=== PATIENT | female | born 1960 | race Caucasian/White ===

== ENCOUNTER 2017-03-24 11:43 | Inpatient (IN) | payer OTHER ==
[~2017-03-24] VITALS: Ht 170.2 cm; Wt 109.0 kg
[~2017-03-24 11:43] MED LIST: DEXT40GE PO; ECRCR EXT; FLUC100T4 PO; FRS/40 PO; GLIM4TAB PO; LEVO-14 PO; MULT-506 PO; OXGN; OXYC-609 PO; SPIR25TA PO; ZOLP5TAB PO
--- NOTE | 2017-03-24 13:24 | EMERGENCY ROOM VISIT NOTE ---
History Report prepared by Jarrell: Arabella Stroud Under the Supervision of: Dr. Raúl Wolf M.D. First contact with patient: 12:19 Chief Complaint: RESPIRATORY PROBLEMS Stated Complaint: WATER RETENTION/WOUND Nursing Triage Summary: states she has been retaining fluid, ankles and feet swollen. Is being seen by Dr. Brown and wound center. states she has a staph infection on right lower leg History of Present Illness The patient is a 56 year old white female with a past medical history of COPD and diaphragm collapse who presents to the ED with a cc of constant worsening bilateral leg swelling beginning 2 days ago. The patient states that she follows with the wound clinic and has 2 wounds on the inside of her left leg that are holes and are draining fluid. She reports that she recently saw Dr. Brown and after doing a wound culture she notes that she has a staph infection in her right lower extremity. Pt notes that she is supposed to be taking Lasix but she stopped taking it 2 days ago as she was not draining fluid and thought that her body was rejecting it. Positive decreased appetite, bloating. Negative fever, chills, new cough. She states that she is on home 3L of oxygen and Bipap at night. Pt notes she is is on a 14 day course of Dalvance. She notes that she needs her Lerner catheter changed. Source of History: patient Onset: 2 days ago Position: leg (bilateral) Quality: other (swelling) Timing: constant, worsening Associated Symptoms: No fevers, No chills, No cough Note: Positive decreased appetite, bloating. Review of Systems See HPI for pertinent positives and negatives. A total of ten systems were reviewed and were otherwise negative. Past Medical & Surgical Medical Problems: (1) Acute respiratory failure (2) Femur fracture, left (3) Hyponatremia (4) Leukocytosis (5) MRSA (methicillin resistant Staphylococcus aureus) infection (6) Sacral decubitus ulcer, stage IV Family History No pertinent family history Social History Smoking Status: Current Every Day Smoker Drug Use: none Marital Status: single Occupation Status: disabled Current/Historical Medications Scheduled Eucerin (Hydrocerin), 1 APPLN EXT BID Fluconazole (Diflucan), 100 MG PO DAILY Furosemide (Lasix), 40 MG PO BID Glimepiride (Amaryl), 4 MG PO BID Home O2 Therapy (Oxygen), 3 LITERS NA CONTINOUS Spironolactone (Aldactone), 50 MG PO BID Zolpidem Tartrate (Ambien), 1 TAB PO HS Scheduled PRN Levocetirizine Dihydrochloride (Levocetirizine Dihydrochl), 0.5 MG PO DAILY PRN for Itching Oxycodone HCl (Oxycodone HCl), 10 MG PO Q8 PRN for Pain Allergies Coded Allergies: Vancomycin (Verified Allergy, Severe, ANAPHYLAXIS, 03/24/17) pt began shaking,face and neck bright red rash.o2 saturation dropping to 84% on 15lnrb Ampicillin (Verified Allergy, Mild, RASH, 03/24/17) Clindamycin (Verified Allergy, Mild, RASH, 03/24/17) Linezolid (Verified Allergy, Mild, RASH, 03/24/17) Penicillins (Verified Allergy, Mild, RASH, 03/24/17) Ciprofloxacin (Verified Adverse Reaction, Mild, MUSCLE ACHES, 03/24/17) muscle aches Methimazole (Verified Adverse Reaction, Mild, headache, 03/24/17) headache Nystatin (Verified Adverse Reaction, Mild, nausea, abd pain, kidney pain, 03/24/17) nausea, abd pain,kidney pain Physical Exam Vital Signs Date Time Temp Pulse Resp B/P (MAP) Pulse Ox O2 Delivery O2 Flow Rate FiO2 03/24/17 16:58 82 18 117/72 100 Nasal Cannula 3.0 03/24/17 12:15 83 03/24/17 12:11 94 Nasal Cannula 3.0 03/24/17 11:56 97 Nasal Cannula 3.0 03/24/17 11:45 36.6 82 20 112/66 92 Nasal Cannula 3.0 Physical Exam GENERAL: Awake, alert, well-appearing, NAD, on oxygen HENT: Normocephalic, atraumatic. EYES: Normal conjunctiva. Sclera non-icteric. NECK: Supple. No nuchal rigidity. FROM. RESPIRATORY: Distant lung sounds, bibasilar crackles. CARDIAC: RRR, no MRG ABDOMEN: Soft, NTND, BS+ MSK: No chest wall TTP, no LE edema NEURO: GCS 15, CN 2-12 intact, moves all 4s on command SKIN: Multiple ulcerations. Stage III sacral decubitus ulceration, mildly foul swelling, no purulent drainage. Has a stage II ulcer to the left heel and RLE with good granulation tissue. Some left inner thigh maceration of the skin. Medical Decision & Procedures ER Provider Diagnostic Interpretation: X-ray: Per my interpretation, radiologist review. CHEST ONE VIEW PORTABLE FINDINGS: The heart remains mildly enlarged. Mild diffuse interstitial thickening. This is slightly improved. No pleural effusions. No pneumothorax. No new focal lung consolidations. IMPRESSION: 1. Stable mild enlargement of the cardiac silhouette. 2. Mild diffuse interstitial thickening which has improved. This could represent mild congestive change. Electronically signed by: Fahad Davis M.D. 03/24/2017 2:22 PM Dictated Date/Time: 03/24/2017 2:21 PM Laboratory Results 03/24/17 15:40 Red Blood Count 3.79, Mean Corpuscular Volume 86.5, Mean Corpuscular Hemoglobin 27.7, Mean Corpuscular Hemoglobin Concent 32.0, Mean Platelet Volume 10.2, Neutrophils (%) (Auto) 82.5, Lymphocytes (%) (Auto) 11.6, Monocytes (%) (Auto) 4.2, Eosinophils (%) (Auto) 1.2, Basophils (%) (Auto) 0.2, Neutrophils # (Auto) 9.52, Lymphocytes # (Auto) 1.34, Monocytes # (Auto) 0.48, Eosinophils # (Auto) 0.14, Basophils # (Auto) 0.02 03/24/17 15:40 Test 03/24/17 14:10 03/24/17 15:35 03/24/17 15:40 03/24/17 16:32 Urine Color YELLOW Urine Appearance CLOUDY (CLEAR) Urine pH 5.0 (4.5-7.5) Urine Specific [place] 1.015 (1.000-1.030) Urine Protein NEG (NEG) Urine Glucose (UA) 1+ (NEG) Urine Ketones NEG (NEG) Urine Occult Blood 1+ (NEG) Urine Nitrite NEG (NEG) Urine Bilirubin NEG (NEG) Urine Urobilinogen NEG (NEG) Urine Leukocyte Esterase MODERATE (NEG) Urine WBC (Auto) 1-5 /hpf (0-5) Urine RBC (Auto) 0-4 /hpf (0-4) Urine Hyaline Casts (Auto) 0 /lpf (0-5) Urine Epithelial Cells (Auto) >30 /lpf (0-5) Urine Bacteria (Auto) 1+ (NEG) Urine Renal Epithelial Cells /lpf (0-5) Urine Pathogenic Casts /lpf (0) Venous Blood pH 7.21 (7.36-7.41) Venous Blood Partial Pressure CO2 57 mmHg (38.0-50.0) Venous Blood Partial Pressure O2 24 mmHg Venous Blood HCO3 22 mmol/L Venous Blood Oxygen Saturation < 60.0 % Venous Blood Base Excess -6.0 mEq/L White Blood Count 11.53 K/uL (4.8-10.8) Red Blood Count 3.79 M/uL (4.2-5.4) Hemoglobin 10.5 g/dL (12.0-16.0) Hematocrit 32.8 % (37-47) Mean Corpuscular Volume 86.5 fL (80-100) Mean Corpuscular Hemoglobin 27.7 pg (25-34) Mean Corpuscular Hemoglobin Concent 32.0 g/dl (32-36) Platelet Count 253 K/uL (130-400) Mean Platelet Volume 10.2 fL (7.4-10.4) Neutrophils (%) (Auto) 82.5 % Lymphocytes (%) (Auto) 11.6 % Monocytes (%) (Auto) 4.2 % Eosinophils (%) (Auto) 1.2 % Basophils (%) (Auto) 0.2 % Neutrophils # (Auto) 9.52 K/uL (1.4-6.5) Lymphocytes # (Auto) 1.34 K/uL (1.2-3.4) Monocytes # (Auto) 0.48 K/uL (0.11-0.59) Eosinophils # (Auto) 0.14 K/uL (0-0.5) Basophils # (Auto) 0.02 K/uL (0-0.2) RDW Standard Deviation 47.1 fL (36.4-46.3) RDW Coefficient of Variation 14.8 % (11.5-14.5) Immature Granulocyte % (Auto) 0.3 % Immature Granulocyte # (Auto) 0.03 K/uL (0.00-0.02) Erythrocyte Sedimentation Rate 65 mm/hr (0-21) Prothrombin Time 11.2 SECONDS (9.0-12.0) Prothromb Time International Ratio 1.0 (0.9-1.1) Activated Partial Thromboplast Time 29.8 SECONDS (21.0-31.0) Partial Thromboplastin Ratio 1.1 Anion Gap 8.0 mmol/L (3-11) Estimated GFR () 35.3 Estimated GFR (Non- 30.5 BUN/Creatinine Ratio 37.7 (10-20) Calcium Level 9.2 mg/dl (8.5-10.1) Total Bilirubin 0.2 mg/dl (0.2-1) Direct Bilirubin 0.1 mg/dl (0-0.2) Aspartate Amino Transf (AST/SGOT) 9 U/L (15-37) Alanine Aminotransferase (ALT/SGPT) 17 U/L (12-78) Alkaline Phosphatase 87 U/L (45-117) Troponin I 0.023 ng/ml (0-0.045) C-Reactive Protein 6.08 mg/dl (0-0.29) Pro-B-Type Natriuretic Peptide 9183 pg/ml (0-900) Total Protein 6.8 gm/dl (6.4-8.2) Albumin 3.0 gm/dl (3.4-5.0) Bedside Lactic Acid Venous 0.38 mmol/L (0.90-1.70) Laboratory results reviewed by me Medications Administered Medications (Trade) Dose Ordered Sig/Bruno Route Start Time Stop Time Status Last Admin Dose Admin Ceftriaxone Sodium (Rocephin Inj) 1 gm NOW STAT IV 03/24/17 15:11 03/24/17 15:13 DC 03/24/17 15:48 1 GM Furosemide (Lasix Inj) 40 mg NOW STAT IV 03/24/17 16:40 03/24/17 16:41 DC 03/24/17 16:55 40 MG ECG Indication: other (swelling) Rate (beats per minute): 77 Rhythm: sinus rhythm Findings: 1st degree AV block, T-wave inversion (V2), other (QRS and QTC intervals) Comparison ECG Date: 14-SEP-2015 Change: no significant change ED Course 1219: The patient was evaluated in room C3. A complete history and physical exam was performed. 1452: I reevaluated and updated the patient. 1646: Discussed the patient's case with Dr. Aj of [facility]. 1753: Discussed the patient's case with Dr. Gonzalez of [facility]. The patient will be evaluated for further treatment and disposition. 180: Upon reexamination, the patient was doing well. I discussed the test results and treatment plan with the patient. The patient will be evaluated for further management. Medical Decision Differential diagnosis includes CHF, kidney dysfunction, liver dysfunction, cellulitis, chronic lymphedema. The patient is a 56 year old white female with a past medical history of COPD and diaphragm collapse who presents to the ED with a cc of constant worsening bilateral leg swelling beginning 2 days ago. Patient noted to have normal white count mild elevated inflammatory markers. UA was questioned more for infection given the chronic indwelling Lerner she was treated with Rocephin. Patient was given 1 dose of Lasix after her BNP showed to be greater than 9000. Patient does have mild ELIZABETH with a creatinine of 1.8 from 1.2. I spoke with the hospitalist service who agreed the patient would benefit for further medical management and admission. Most Recent Progress note from Dr. Rothman on 03/13/17: At this time the the right lower extremity and heel did require debridement. With the patient's permission and after the application of topical Xylocaine 4% this site was debridement with a #5 curette . Central slough was removed. Bleeding did occur was controlled with direct pressure. This site as well as the left heel will be managed with Aquacel Ag and gauze change daily. Sacral ulcer will be managed with a wound VAC Suzy in the base black foam 125 mm of negative pressure wound VAC change Saturday. Patient will be reevaluated in 2 weeks. This represented a non-excisional debridement of less than 20 cm. Medication Reconcilliation Current Medication List: was personally reviewed by nj Blood Pressure Screening Patient's blood pressure: Normal blood pressure Blood pressure disposition: Did not require urgent referral Consults Time Called: 1440 Consulting Physician: Dr. Jean Marie Cuello [facility] Returned Call: 1447 Discussed the patient's case with Dr. Aj of [facility]. Additional Consults: Time Called: 1750 Consulted Physician: Dr. Lisa Cuello [facility] Returned Call: 1758 Additional Comments: Discussed the patient's case with Dr. Gonzalez of [facility]. The patient will be evaluated for further treatment and disposition. Impression Primary Impression: ELIZABETH (acute kidney injury) Additional Impressions: CHF (congestive heart failure) Sacral decubitus ulcer, stage III Scribe Attestation The scribe's documentation has been prepared under my direction and personally reviewed by me in its entirety. I confirm that the note above accurately reflects all work, treatment, procedures, and medical decision making performed by me. Departure Information Dispostion Being Evaluated By Hospitalist Referrals Parminder Rothman DO (PCP) Patient Instructions My [facility] Problem Qualifiers
--- NOTE | 2017-03-24 14:23 | DIAGNOSTIC IMAGING REPORT ---
CHEST ONE VIEW PORTABLE HISTORY: Lower extremity swelling. COMPARISON: Chest 10/03/2015. FINDINGS: The heart remains mildly enlarged. Mild diffuse interstitial thickening. This is slightly improved. No pleural effusions. No pneumothorax. No new focal lung consolidations. IMPRESSION: 1. Stable mild enlargement of the cardiac silhouette. 2. Mild diffuse interstitial thickening which has improved. This could represent mild congestive change. Electronically signed by: Fahad Davis M.D. 03/24/2017 2:22 PM Dictated Date/Time: 03/24/2017 2:21 PM
[2017-03-24 14:33] LABS: URINE APPEARANCE CLOUDY (CLEAR); URINE BILIRUBIN NEG (NEG); URINE COLOR YELLOW; URINE EPITHELIAL CELL AUTO >30 /lpf (0-5); URINE NITRITE NEG (NEG); URINE SPECIFIC GRAVITY 1.015 (1.000-1.030); UROBILINOGEN NEG (NEG); ZZUR CULT IF INDIC CLEAN CATCH YES
[2017-03-24 14:35] LABS: MANUAL MICROSCOPIC REQUIRED? NO; REVIEW REQ? YES
[2017-03-24] MEDS ORDERED: CEFTRIAXONE SOD INJ 1 GM ADDVIAL IV STA (15:11)
[2017-03-24 15:43] LABS: VENOUS BLOOD GAS PCO2 57 mmHg (38.0-50.0); VENOUS BLOOD GAS PO2 24 mmHg
[2017-03-24 15:45] LABS: VEN BLD GAS O2 SATURATION < 60.0 %
[2017-03-24 15:49] LABS: BASO % 0.2 %; BASO ABS # 0.02 K/uL (0-0.2); COMPLETE YES; EOS % 1.2 %; HEMATOCRIT 32.8 % (37-47); IG% 0.3 %; LYMPH % 11.6 %; LYMPH ABS # 1.34 K/uL (1.2-3.4); MEAN CELL VOLUME 86.5 fL (80-100); MEAN CORPUSCULAR HEMOGLOBIN 27.7 pg (25-34); MEAN PLATELET VOLUME 10.2 fL (7.4-10.4); MONO % 4.2 %; NEUT % 82.5 %; PLATELET COUNT 253 K/uL (130-400); RED BLOOD COUNT 3.79 M/uL (4.2-5.4); WHITE BLOOD COUNT 11.53 K/uL (4.8-10.8)
[2017-03-24 15:57] LABS: PARTIAL THROMBOPLASTIN RATIO 1.1; PROTHROMBIN TIME (PATIENT) 11.2 SECONDS (9.0-12.0)
[2017-03-24 16:08] LABS: ALT/SGPT 17 U/L (12-78); BLOOD UREA NITROGEN 68 mg/dl (7-18); BUN/CREATININE RATIO 37.7 (10-20); C-REACTIVE PROTEIN 6.08 mg/dl (0-0.29); CALCIUM 9.2 mg/dl (8.5-10.1); CARBON DIOXIDE 22 mmol/L (21-32); CHLORIDE 106 mmol/L (98-107); GLUCOSE 170 mg/dl (70-99); SODIUM 136 mmol/L (136-145)
[2017-03-24 16:13] LABS: ALKALINE PHOSPHATASE 87 U/L (45-117); AST/SGOT 9 U/L (15-37)
[2017-03-24] MEDS ORDERED: FUROSEMIDE 40 MG/4 ML VIAL IV STA (16:40)
--- NOTE | 2017-03-24 18:09 | History and Physical ---
History & Physical Date & Time of Service: Mar 24, 2017 at 17:48 Chief Complaint: Water Retention/Wound Primary Care Physician: Parminder Rothman DO History of Present Illness Source: patient 56 year old female with COPD, CHF (right-sided), DM and chronic lower leg ulcers who presented to [facility] on 03/24/2016 with a complaint of leg swelling. She first noticed her ;legs becoming swollen 2 days ago. She also noticed her belly was becoming enlarged and that her urine output had decreased. On she took a double dose of Lasix and didn't notice any difference and therefore decided lasix didn't work and stopped taking the medication. She has a known history of right sided heart failure with her last ECHO being in 2014 with an EF 55-60%, with right ventricular failure and right ventricular dilatation. She follows with Dr. Lata Sena in [place], [place]. Pt denies SOB, chest pain or palpitations. Past Medical/Surgical History Medical Problems: (1) Femur fracture, left Status: Chronic (2) Hyponatremia Status: Chronic (3) MRSA (methicillin resistant Staphylococcus aureus) infection Status: Chronic (4) Sacral decubitus ulcer, stage IV Status: Chronic Family History No pertinent family history Mom of [place] in 70's Dad had heart disease Brother and sister both have heart disease Social History Smoking Status: Current Every Day Smoker Alcohol Use: socially Drug Use: none Marital Status: single Housing status: lives alone Occupational Status: disabled Multi-Drug Resistant Organisms History of MDRO: Yes Type of MDRO: MRSA Allergies Coded Allergies: Vancomycin (Verified Allergy, Severe, ANAPHYLAXIS, 03/24/17) pt began shaking,face and neck bright red rash.o2 saturation dropping to 84% on 15lnrb Ampicillin (Verified Allergy, Mild, RASH, 03/24/17) Clindamycin (Verified Allergy, Mild, RASH, 03/24/17) Linezolid (Verified Allergy, Mild, RASH, 03/24/17) Penicillins (Verified Allergy, Mild, RASH, 03/24/17) Ciprofloxacin (Verified Adverse Reaction, Mild, MUSCLE ACHES, 03/24/17) muscle aches Methimazole (Verified Adverse Reaction, Mild, headache, 03/24/17) headache Nystatin (Verified Adverse Reaction, Mild, nausea, abd pain, kidney pain, 03/24/17) nausea, abd pain,kidney pain Home Medications Scheduled Eucerin (Hydrocerin), 1 APPLN EXT BID Fluconazole (Diflucan), 100 MG PO DAILY Furosemide (Lasix), 40 MG PO BID Glimepiride (Amaryl), 4 MG PO BID Home O2 Therapy (Oxygen), 3 LITERS NA CONTINOUS Spironolactone (Aldactone), 50 MG PO BID Zolpidem Tartrate (Ambien), 1 TAB PO HS Scheduled PRN Levocetirizine Dihydrochloride (Levocetirizine Dihydrochl), 0.5 MG PO DAILY PRN for Itching Oxycodone HCl (Oxycodone HCl), 10 MG PO Q8 PRN for Pain Review of Systems Constitutional: No fever, No chills, No sweats Respiratory: + cough, No shortness of breath Cardiovascular: + edema, No chest pain, No palpitations Abdomen: + problem reported (swellling), No pain, No nausea Genitourinary - Female: + urinary retention, No urinary frequency Physical Exam Vital Signs Date Time Temp Pulse Resp B/P (MAP) Pulse Ox O2 Delivery O2 Flow Rate FiO2 03/24/17 16:58 82 18 117/72 100 Nasal Cannula 3.0 03/24/17 12:15 83 03/24/17 12:11 94 Nasal Cannula 3.0 03/24/17 11:56 97 Nasal Cannula 3.0 03/24/17 11:45 36.6 82 20 112/66 92 Nasal Cannula 3.0 General Appearance: WD/WN, no apparent distress, + obese, + pertinent finding ( nasal cannula) ENT: hearing grossly normal, pharynx normal Neck: no JVD (difficult to assess), no carotid bruits, trachea midline, + pertinent finding Respiratory/Chest: no respiratory distress, no accessory muscle use, + crackles (crackles at left base), + wheezing (mild bilateral) Cardiovascular: regular rate, rhythm, + abnormal peripheral pulses (weak), + pertinent finding (heart sounds distant) Abdomen/GI: normal bowel sounds, non tender, soft, + distended Extremities/Musculoskelatal: no calf tenderness, normal capillary refill, non- tender, + pedal edema (+3 pitting edema to knee bilaterally), + pertinent finding (ulcers on left lateral aspect of lower leg with dressings over lesions. Chronic venous changes bilaterally with haemosiderin deposition) Neurologic/Psych: alert, normal mood/affect, oriented x 3 Diagnostics Laboratory Results Results Past 24 Hours Test 03/24/17 14:10 03/24/17 15:35 03/24/17 15:40 03/24/17 16:32 Range/Units Urine Color YELLOW Urine Appearance CLOUDY CLEAR Urine pH 5.0 4.5-7.5 Urine Specific [place] 1.015 1.000-1.030 Urine Protein NEG NEG Urine Glucose (UA) 1+ NEG Urine Ketones NEG NEG Urine Occult Blood 1+ NEG Urine Nitrite NEG NEG Urine Bilirubin NEG NEG Urine Urobilinogen NEG NEG Urine Leukocyte Esterase MODERATE NEG Urine WBC (Auto) 1-5 0-5 /hpf Urine RBC (Auto) 0-4 0-4 /hpf Urine Hyaline Casts (Auto) 0 0-5 /lpf Urine Epithelial Cells (Auto) >30 0-5 /lpf Urine Bacteria (Auto) 1+ NEG Urine Renal Epithelial Cells 0-5 /lpf Urine Pathogenic Casts 0 /lpf Venous Blood pH 7.21 7.36-7.41 Venous Blood Partial Pressure CO2 57 38.0-50.0 mmHg Venous Blood Partial Pressure O2 24 mmHg Venous Blood HCO3 22 mmol/L Venous Blood Oxygen Saturation < 60.0 % Venous Blood Base Excess -6.0 mEq/L White Blood Count 11.53 4.8-10.8 K/uL Red Blood Count 3.79 4.2-5.4 M/uL Hemoglobin 10.5 12.0-16.0 g/dL Hematocrit 32.8 37-47 % Mean Corpuscular Volume 86.5 80-100 fL Mean Corpuscular Hemoglobin 27.7 25-34 pg Mean Corpuscular Hemoglobin Concent 32.0 32-36 g/dl Platelet Count 253 130-400 K/uL Mean Platelet Volume 10.2 7.4-10.4 fL Neutrophils (%) (Auto) 82.5 % Lymphocytes (%) (Auto) 11.6 % Monocytes (%) (Auto) 4.2 % Eosinophils (%) (Auto) 1.2 % Basophils (%) (Auto) 0.2 % Neutrophils # (Auto) 9.52 1.4-6.5 K/uL Lymphocytes # (Auto) 1.34 1.2-3.4 K/uL Monocytes # (Auto) 0.48 0.11-0.59 K/uL Eosinophils # (Auto) 0.14 0-0.5 K/uL Basophils # (Auto) 0.02 0-0.2 K/uL RDW Standard Deviation 47.1 36.4-46.3 fL RDW Coefficient of Variation 14.8 11.5-14.5 % Immature Granulocyte % (Auto) 0.3 % Immature Granulocyte # (Auto) 0.03 0.00-0.02 K/uL Erythrocyte Sedimentation Rate 65 0-21 mm/hr Prothrombin Time 11.2 9.0-12.0 SECONDS Prothromb Time International Ratio 1.0 0.9-1.1 Activated Partial Thromboplast Time 29.8 21.0-31.0 SECONDS Partial Thromboplastin Ratio 1.1 Sodium Level 136 136-145 mmol/L Potassium Level 5.0 3.5-5.1 mmol/L Chloride Level 106 98-107 mmol/L Carbon Dioxide Level 22 21-32 mmol/L Anion Gap 8.0 3-11 mmol/L Blood Urea Nitrogen 68 7-18 mg/dl Creatinine 1.80 0.60-1.20 mg/dl Estimated GFR () 35.3 Estimated GFR (Non- 30.5 BUN/Creatinine Ratio 37.7 10-20 Random Glucose 170 70-99 mg/dl Calcium Level 9.2 8.5-10.1 mg/dl Total Bilirubin 0.2 0.2-1 mg/dl Direct Bilirubin 0.1 0-0.2 mg/dl Aspartate Amino Transf (AST/SGOT) 9 15-37 U/L Alanine Aminotransferase (ALT/SGPT) 17 12-78 U/L Alkaline Phosphatase 87 45-117 U/L Troponin I 0.023 0-0.045 ng/ml C-Reactive Protein 6.08 0-0.29 mg/dl Pro-B-Type Natriuretic Peptide 9183 0-900 pg/ml Total Protein 6.8 6.4-8.2 gm/dl Albumin 3.0 3.4-5.0 gm/dl Bedside Lactic Acid Venous 0.38 0.90-1.70 mmol/L Microbiology Results 03/24/17 Urine Culture, Received Pending Diagnostic Radiology 1. Stable mild enlargement of the cardiac silhouette. 2. Mild diffuse interstitial thickening which has improved. This could represent mild congestive change. Normal EKG Impression Assessment and Plan 56 year old female with PMH of Right sided CHF, COPD and chronic leg wounds presented with worsening lower extremity swelling and abdominal bloating. Likely to be worsening right sided heart failure. CHF (Right sided CHF) - last echo 2014 with EF 55-60%, RV dilatation and R ventricular failure, LV normal - takes home lasix 40mg bid, held - aldactone daily continue - start lasix IV 40mg once and reassess - monitor I/O's and daily weights - Order echo for the morning COPD - On 3L of oxygen at home - On BiPaP QHS - Ordered regular Duonebs DM - Glimepiride continue - Check HbA1c - monitor glucose MRSA leg ulcer - follows with Dr. Brown - gets Dalvance q2 weeks, next dose on Saturday as outpatient Sacral decubitus ulcer - Consult Wound Care CKD stage 3b - EGFR 30 - creatinine 1.8 - continue to monitor Yeast infection - diflucan Insomnia - zolpidem QHS DVT Prophlyaxis - Lovenox 30 daily due to decrease GFR Dispo - PT/OT consult - Lives alone Resident Physician Supervision Note: I interviewed and examined the patient. Discussed with Dr. Olmstead and agree with findings and plan as documented in the note. Any exceptions or clarifications are listed here: None Documented By: Santos Gonzalez swelling, abdominal bloating. legs hurt. taking lasix no response, quit lasix. vitals noted nad breathing unlabored no pallor or icterus, leg edema w ulcers but no surrounding erythema decompensation of right sided CHF -hopefully just poor absorption of diuretic due to gut edema, but concern would be overall worsening of R CHF / pulmonary HTN picture -start w trial of IV lasix - if improves situation and BP stable/Cr stable, then more likely just poor absorption and can likely treat w PO bumex; if doesn' t respond or if Cr rises a lot//BP drops- then will have to pursue R CHF more in depth telemetry at first given risks of deterioration of above Level of Care Telemetry VTE Prophylaxis VTE Risk Assessment Done? Y/N: Yes Given or contraindicated: Enoxaparin (Lovenox)SQ
[2017-03-24] MEDS ORDERED: ZOLPIDEM TARTRATE 5 MG TAB PO PRN (19:00)
[2017-03-24 19:54] VITALS: PULSE 88; O2SAT 96
[2017-03-24] MEDS: ALBUT/IPRATROP 3MG/0.5MG NEB 3 ML VIAL INH SCH (19:54)
[2017-03-24 20:00] VITALS: BP 136/68; PULSE 86; TEMP 36.8; O2SAT 96; BMI 37.6
[2017-03-24] MEDS ORDERED: PATIENT'S HEIGHT AND/OR WEIGHT NEEDED SCH (20:00)
[2017-03-24] MEDS ORDERED: FUROSEMIDE INJ 40 MG in SYRINGE 0 ML IV ONE (20:30)
[2017-03-24] MEDS: GLIMEPIRIDE 2 MG TAB PO SCH (21:00)
[2017-03-24] MEDS ORDERED: ZOLPIDEM TARTRATE 5 MG TAB PO SCH (21:00)
[2017-03-24] MEDS: EUCERIN CR 120 GM JAR EXT SCH (21:41)
[2017-03-24] MEDS: SPIRONOLACTONE 25 MG TAB PO SCH (21:50)
[2017-03-25] VITALS (9 sets, daily range): BP systolic 110–124; BP diastolic 58–67; PULSE 60–98; TEMP 36.6–36.8; O2SAT 93–98; Ht 170.2 cm; Wt 109.0 kg
[2017-03-25] MEDS: OXYCODONE HCL IR 5 MG TAB (IMMEDIATE RELEASE) PO PRN ×2 (01:41→22:31)
[2017-03-25 06:31] LABS: HEMATOCRIT 31.2 % (37-47); MEAN CELL VOLUME 86.7 fL (80-100); MEAN CORPUSCULAR HEMOGLOBIN 27.5 pg (25-34); MEAN CORPUSCULAR HGB CONC 31.7 g/dl (32-36); MEAN PLATELET VOLUME 10.1 fL (7.4-10.4); PLATELET COUNT 254 K/uL (130-400); WHITE BLOOD COUNT 10.38 K/uL (4.8-10.8)
[2017-03-25 07:04] LABS: BUN/CREATININE RATIO 36.9 (10-20); CALCIUM 8.4 mg/dl (8.5-10.1); CREATININE 1.9 mg/dl (0.60-1.20); POTASSIUM 5.6 mmol/L (3.5-5.1)
[2017-03-25 07:06] LABS: CHOLESTEROL/HDL RATIO 6.7
[2017-03-25] MEDS: ALBUT/IPRATROP 3MG/0.5MG NEB 3 ML VIAL INH SCH ×4 (07:13→20:20)
[2017-03-25 08:14] LABS: ESTIMATED AVERAGE GLUCOSE 203 mg/dl; HA1C FLAG Normal (Normal)
--- NOTE | 2017-03-25 08:36 | Clinical Documentation Query ---
CLINICAL DOCUMENTATION QUERY The medical record currently reflects this patient presenting with right sided CHF. By ICD 10 coding indexes this diagnosis codes to CHF unspecified. The medical record documentation is now expected to include definitive and explicit description of the patient's heart failure; vague terms such as "heart failure," ventricular dysfunction," and "CHF" may not fully capture the physician's intended level of severity. Query #1/2 In your clinical opinion is this patient being managed for: ( x ) Acute on chronic systolic right ventricular CHF ( ) Acute on chronic diastolic (Preserved EF) CHF ( ) Other explanation of clinical findings (Please Explain) ( ) Unable to determine (Please Define) ( ) Need to Discuss ( ) Not Agree The medical record reflects the following clinical findings, treatment, and risk factors. Clinical Indicators: Right heart failure per H&P. ProBNAP 9183. Echo from 05/21/15 showed severely dilated RV with a moderate to severly redued RV systolic function, LVEF of 55-60%, and RV pressure/volume overload. Treatment: telemetry, I/O's, daily weights, IV Lasix, Risk Factors: Age, CKD, COPD Query #2/2 In your clinical opinion is this patient being managed for: ( x ) CKD stage 3-4 evidenced by baseline creatinine of 1.80 an GFR of 30.5 monitored with ( ) Other explanation of clinical findings (Please Explain) ( ) Unable to determine (Please Define) ( ) Need to Discuss ( ) Not Agree The medical record reflects the following clinical findings, treatment, and risk factors. Clinical Indicators: BUN 68, Creatinine 1.80, GFR 30.5 Treatment: I/O's, daily weights, daily PRP's Risk Factors: Age, home diuretic therapy, Documenting the stage of CKD will improve data integrity and will help clarify vague terms such as "renal insufficiency" or "chronic renal failure." The stages of CKD according to the [employer] are as follows: Stage I: GFR >90 Stage II: GFR 60-89 Stage III: GFR 30-59 Stage IV: GFR 15-29 Stage V: GFR <15 Please clarify and document your clinical opinion in the progress notes and discharge summary. Terms such as "probable", "suspected", "likely", "questionable", "possible", or "still to be ruled out" are acceptable. IF IN AGREEMENT, YOU MUST DOCUMENT ABOVE DIAGNOSTIC STATEMENT IN DAILY PROGRESS NOTES AND DISCHARGE SUMMARY. This document is not part of the patient's record. Thank You, Joshua Rosales, RN [phone]
[2017-03-25] MEDS: ENOXAPARIN 30 MG/0.3 ML SYR SC SCH (09:47)
[2017-03-25] MEDS: FLUCONAZOLE 100 MG TAB PO SCH (09:51)
[2017-03-25] MEDS: SPIRONOLACTONE 25 MG TAB PO SCH ×2 (09:52→17:43)
[2017-03-25] MEDS: GLIMEPIRIDE 2 MG TAB PO SCH ×2 (09:53→20:27)
[2017-03-25] MEDS: EUCERIN CR 120 GM JAR EXT SCH ×2 (09:53→20:00)
[2017-03-25] MEDS ORDERED: NURSING VERBAL MED ORDER ONE ×3 (11:15→22:15)
[2017-03-25] MEDS ORDERED: IBUPROFEN 600 MG TAB PO PRN (11:30)
--- NOTE | 2017-03-25 11:46 | Family Medicine Progress Note ---
Progress Note Date of Service Mar 25, 2017. Subjective Pt evaluation today including: conversation w/ patient, physical exam, chart review, lab review The patient was seen and examined at bedside. According to nursing notes pt was screaming overnight. Pt refused numerous blood sugar checks. Pt reports that her lower extremity swelling has improved. Pt was approached regarding taking insulin in the hospital and she said she would defer to Dr. Gonzalez's recommendation when he rounds later in the day. Telemetry showed sinus rhythm in the 90s. Denies having any pain. Eating and urinating well. Plan of care was described to the patient and all questions were answered. Constitutional: No fever, No chills, No sweats, No weight loss ENT: No hearing loss Respiratory: No cough, No sputum, No wheezing, No shortness of breath Cardiovascular: No chest pain Abdomen: No pain, No nausea, No vomiting, No diarrhea Female : No dysuria Objective Physical Exam General Appearance: WD/WN, no apparent distress Neck: supple Respiratory/Chest: chest non-tender, no respiratory distress, no accessory muscle use, + pertinent finding (mild expiratory breath sounds) Cardiovascular: regular rate, rhythm, no edema, no gallop, no JVD, no murmur Abdomen: non tender, soft Extremities: non-tender, + pertinent finding (2+ pitting edema on the lower extremities bilaterally.) Neurologic/Psychiatric: alert, normal mood/affect, oriented x 3 Skin: + pertinent finding (wound dressing on the RLE, skin changes on bilateral legs consistent with venous status, slight weeping on unwrapped LLE, non tender calves.) Assessment and Plan 56F with PMH of Right sided CHF, COPD and chronic leg wounds presented with worsening lower extremity swelling and abdominal bloating. Likely to be worsening right sided heart failure. Pt was given 40mg of IV Lasix. Pt was doing well clinically with decreased swelling. Pt has diuresed 4L so far. Will transition to 1mg BID Bumex and will reassess tomorrow. Acute on Chronic Systolic Right CHF - last echo 2014 with EF 55-60%, RV dilatation and R ventricular failure, LV normal. - Hold home lasix 40mg PO BID. - Continue aldactone 50mg BID continue - start Bumex 1mg BID. - monitor I/O's and daily weights COPD - On 3L of oxygen at home. Mild Wheezing on exam. - On BiPaP QHS - Continue regular Duonebs QID DM2 - Sugars are high, HBA1C of 8.7, she does not want Metformin or insulin at present. - Pt will discuss insulin with Dr. Gonzalez, - Continue Glimepiride 4 MG PO BID at present. - Diabetic Diet. MRSA leg ulcer - follows with Dr. Brown - gets Dalvance q2 weeks, next dose on Saturday as outpatient - Wound care on board. Join Pain - continue home oxycodone regimen. - Tramadol 10mg TID for pain. (when pt doesn't want to take her oxy) - Stray away from NSAIDs due to renal function. Sacral decubitus ulcer - Consult Wound Care CKD stage 3 - EGFR 30 - creatinine 1.8-->1.9 - continue to monitor Yeast infection - Continue Diflucan 100mg daily. Insomnia - Continue Zolpidem QHS DVT Prophlyaxis - Lovenox 30 daily due to decrease GFR Dispo - PT/OT consult - Lives alone FULL CODE Resident Physician Supervision Note: I interviewed and examined the patient. Discussed with Dr. Mayes and agree with findings and plan as documented in the note. Any exceptions or clarifications are listed here: None Documented By: Santos Gonzalez feeling better legs less swollen belly less swollen feels better overall. notes sugars have been bad lately. after extensive discussion has been eating more bread/pasta/macaroni/etc vitals noted nad breathing unlabored leg swelling improved abd soft R sided CHF - improved w IV lasix, Cr rise only minimal - fortunately favoring gut edema precluding absorption of PO lasix. will change to PO bumex, f/u in AM. if ongoing improvement in swelling and stability in BP/Cr then home w close PCP f/u uncontrolled DM - relates previously good control. doesn't want more meds. notes diet has been differrent. willing to revert to prior diet. stable for med surg Resident Involvement: Resident Care Provided Care Provided: Adult [facility] Medicine
[2017-03-25] MEDS ORDERED: KETOROLAC TROMETHAMINE 10 MG TAB PO PRN (16:45)
[2017-03-25] MEDS: BUMETANIDE 1 MG TAB PO SCH (17:43)
[2017-03-25] MEDS ORDERED: TRAMADOL HCL 50 MG TAB PO PRN (18:15)
[2017-03-25] MEDS ORDERED: ZOLPIDEM TARTRATE 5 MG TAB PO SCH (23:00)
[2017-03-26] MEDS: ENOXAPARIN 30 MG/0.3 ML SYR SC SCH (07:01)
[2017-03-26 07:15] VITALS: PULSE 81; O2SAT 93
[2017-03-26] MEDS: ALBUT/IPRATROP 3MG/0.5MG NEB 3 ML VIAL INH SCH ×3 (07:15→15:24)
[2017-03-26 07:20] VITALS: BP 106/58; PULSE 86; TEMP 36.5; O2SAT 92
[2017-03-26 07:38] LABS: BASO % 0.2 %; BASO ABS # 0.02 K/uL (0-0.2); COMPLETE YES; EOS % 1.5 %; HEMATOCRIT 30.9 % (37-47); IG% 0.2 %; LYMPH % 14.2 %; LYMPH ABS # 1.29 K/uL (1.2-3.4); MEAN CORPUSCULAR HEMOGLOBIN 27.3 pg (25-34); MEAN CORPUSCULAR HGB CONC 31.4 g/dl (32-36); MEAN PLATELET VOLUME 10.3 fL (7.4-10.4); MONO % 7.9 %; PLATELET COUNT 244 K/uL (130-400); RED BLOOD COUNT 3.55 M/uL (4.2-5.4); WHITE BLOOD COUNT 9.08 K/uL (4.8-10.8)
[2017-03-26 08:08] LABS: BUN/CREATININE RATIO 34.4 (10-20); CALCIUM 8.9 mg/dl (8.5-10.1); POTASSIUM 5.4 mmol/L (3.5-5.1)
[2017-03-26] MEDS: GLIMEPIRIDE 2 MG TAB PO SCH ×2 (08:35→16:42)
[2017-03-26] MEDS: EUCERIN CR 120 GM JAR EXT SCH (08:35)
[2017-03-26] MEDS: BUMETANIDE 1 MG TAB PO SCH ×2 (08:36→16:43)
[2017-03-26] MEDS: SPIRONOLACTONE 25 MG TAB PO SCH ×2 (08:36→16:43)
[2017-03-26] MEDS: FLUCONAZOLE 100 MG TAB PO SCH (08:36)
--- NOTE | 2017-03-26 08:38 | Discharge Instructions ---
Discharge Instructions Date of Service Mar 26, 2017. Admission Reason for Admission: Leg Swelling Discharge Discharge Diagnosis / Problem: Acute on Chronic Systolic Right CHF Discharge Goals Goal(s): Decrease discomfort, Improve function, Increase independence, Improve nutritional status, Learn about illness Activity Recommendations Activity Limitations: per Instructions/Follow-up section . Instructions / Follow-Up Instructions / Follow-Up Please follow up with your Primary Care Provider at your next regularly scheduled appointment on April 02, 2017. We want you to do a blood test tomorrow on Monday March 27, 2017 and on Wednesday March 29, 2017. The results will be sent to Dr. Brown Verde. We are changing your diuretic from Lasix to Bumex 0.5mg daily. You do not need to take your Lasix if you are taking the Bumex. Please follow up with your primary care doctor in one week. Current Hospital Diet Patient's current hospital diet: Diabetes Type 2 Diet Discharge Diet Recommended Diet: Diabetes Type 2 Diet Pending Studies Studies pending at discharge: no Laboratory Results Hemoglobin A1c Test 03/25/17 06:13 Range/Units Estimated Average Glucose 203 mg/dl Hemoglobin A1c 8.7 H 4.5-5.6 % Lipid Panel Test 03/25/17 06:13 Range/Units Triglycerides Level 127 0-150 mg/dl Cholesterol Level 148 0-200 mg/dl HDL Cholesterol 22 mg/dl Cholesterol/HDL Ratio 6.7 LDL Cholesterol, Calculated 101 mg/dl Medical Emergencies . Who to Call and When: Medical Emergencies: If at any time you feel your situation is an emergency, please call 911 immediately. . Non-Emergent Contact Non-Emergency issues call your: Primary Care Provider . . "Provider Documentation" section prepared by Parminder Mayes. . VTE Core Measure Inpt VTE Proph given/why not?: Enoxaparin (Lovenox)SQ Resident Involvement: Resident Care Provided Care Provided: Adult Hospital Medicine
[2017-03-26 08:54] VITALS: BP 106/58; PULSE 86; TEMP 36.5; O2SAT 92
[2017-03-26] MEDS ORDERED: BMX1 PO (09:01)
--- NOTE | 2017-03-26 09:31 | Discharge Summary ---
Discharge Summary Date of Service Mar 26, 2017. (Parminder Mayes M.D.) Discharge Summary Admission Date: Mar 24, 2017 at 18:22 Discharge Disposition: Home Principal Diagnosis: Acute on Chronic Systolic Right CHF Procedures: CHEST ONE VIEW PORTABLE HISTORY: Lower extremity swelling. COMPARISON: Chest 10/03/2015. FINDINGS: The heart remains mildly enlarged. Mild diffuse interstitial thickening. This is slightly improved. No pleural effusions. No pneumothorax. No new focal lung consolidations. IMPRESSION: 1. Stable mild enlargement of the cardiac silhouette. 2. Mild diffuse interstitial thickening which has improved. This could represent mild congestive change. (Parminder Mayes M.D.) Discharge Exam Subjective The patient was seen and examined at bedside. Slept in the chair overnight. As a result she believes there was minimal improvement in her LE swelling. Pt denies having any pain. Eating and urinating well. Plan of care was described to the patient and all questions were answered. Constitutional: No fever, No chills, No sweats, No weight loss ENT: No hearing loss Respiratory: No cough, No sputum, No wheezing, No shortness of breath Cardiovascular: No chest pain Abdomen: No pain, No nausea, No vomiting, No diarrhea Female : No dysuria Physical Exam General Appearance: WD/WN, no apparent distress, +Obese. Neck: supple Respiratory/Chest: chest non-tender, no respiratory distress, no accessory muscle use, Lungs are Clear to Auscultation bilaterally. Cardiovascular: regular rate, rhythm, no edema, no gallop, no JVD, no murmur Abdomen: non tender, soft Extremities: non-tender, + pertinent finding (2+ pitting edema on the lower extremities bilaterally.) Neurologic/Psychiatric: alert, normal mood/affect, oriented x 3 Skin: + pertinent finding (wound dressing on the RLE, skin changes on bilateral legs consistent with venous status, slight weeping on unwrapped LLE, non tender calves.) (Parminder Mayes M.D.) Hospital Course 56F with PMH of Right sided CHF, COPD and chronic leg wounds presented with worsening lower extremity swelling and abdominal bloating. Likely to be worsening right sided heart failure. Pt was given 40mg of IV Lasix. Pt was doing well clinically with decreased swelling. Pt has diuresed -6.L during her hospital stay. On discharge pt was asked to hold her Lasix and was prescribed 0.5mg daily with Lasix. She has a wound care follow up on 03/27/17. She has an appointment with her Primary Care Doctor on SaturdayApril 02 in [place] - Dr. Brown Verde. An RX was given to do a BMP on SaturdayMarch 27 and SaturdayMarch 29 - this was one to track creatinine clearance and renal function. The results will be sent to Dr. Brown Verde in [place]. During the patient hospital course her blood sugars were found to be elevated. An HBA1C was 8.7. Pt refused Metformin and Insulin - she did however promise to improve her diet. She wants to defer further DM2 management to her PCP in [place]. Patient was discharged on good condition. Total Time Spent: Greater than 30 minutes This includes examination of the patient, discharge planning, medication reconciliation, and communication with other providers. (Parminder Mayes M.D.) Resident Physician Supervision Note: I interviewed and examined the patient. Discussed with Dr. Mayes and agree with findings and plan as documented in the note. Any exceptions or clarifications are listed here: None Documented By: Santos Gonzalez swelling down about the same. mostly complains about service, labs, CNAs etc. no new medical complaints. all other ROS otherwise negative except for as above ; asks for me to revisit and informs me that she thinks sugars are up due to nebs. tried to explain (again) that A1c is a 3 month avg and based on her A1c current sugars are not that unexpected. as yesterday - to revert to less starches/breads/etc vitals noted nad breathing unlabored leg swelling about the same as yesterday R sided CHF / edema - appearing to have responded well to bumex. home on 0.5mg daily - follow clinical status and BMP closely (BMP tomorrow and saturday, then as clinically warranted, PCP f/u later this week) CKD - ~stage 3b - baseline range. BMP closely follow due to changing diuretics hyperkalemia - mild. diuretic will likely reduce. BMP tomorrow as above venous stasis/edema/venous ulcers - sees wound clinic tomorrow stable for home >30mins Total Time Spent: Greater than 30 minutes (Santos Gonzalez D.O.) Discharge Instructions Please refer to the electronic Patient Visit Report (Discharge Instructions) for additional information. (Parminder Mayes M.D.) Follow-Up Follow up with Wound Care appointments. Follow up with PCP in one week. (Parminder Mayes M.D.) Additional Copies To Jake Brown MD; Parminder Rothman, DO Resident Involvement: Resident Care Provided Care Provided: [facility] Medicine (Parminder Mayes M.D.)
[2017-03-26 11:27] VITALS: PULSE 89; O2SAT 96
[2017-03-26 15:59] VITALS: BP 121/66; PULSE 89; TEMP 36.9; O2SAT 91
[2017-03-26] MEDS ORDERED: CEFUROXIME AXETIL 250 MG TAB PO SCH (20:00)
[2017-04-02] MEDS ORDERED: CBCI (09:47)
[2017-05-30] MEDS ORDERED: BUME1TAB PO (13:05)
[2017-05-30] MEDS ORDERED: SPIR25TA PO (13:05)
== END 2017-03-26 17:25 | disposition home health service (06) | DRG 291 ==
LOC: C.EDB 11:48 → C.2E 18:22 → ENRESERV 19:00 → C.4E 03-25 19:53
PROVIDERS: ADMIT Family Medicine; ATTEND Family Medicine
DX: I50.23 Acute on chronic systolic (congestive) heart failure (principal); L89.153 Pressure ulcer of sacral region, stage 3; J44.9 Chronic obstructive pulmonary disease, unspecified; L89.622 Pressure ulcer of left heel, stage 2; L89.892 Pressure ulcer of other site, stage 2; L08.89 Other specified local infections of the skin and subcutaneous tissue; B95.62 Methicillin resistant Staphylococcus aureus infection as the cause of diseases classified elsewhere; B37.9 Candidiasis, unspecified; I87.8 Other specified disorders of veins; E11.65 Type 2 diabetes mellitus with hyperglycemia; N18.3 Chronic kidney disease, stage 3 (moderate); E87.5 Hyperkalemia; I89.0 Lymphedema, not elsewhere classified; M25.50 Pain in unspecified joint; G47.00 Insomnia, unspecified; F17.200 Nicotine dependence, unspecified, uncomplicated; E66.9 Obesity, unspecified; Z68.37 Body mass index [BMI] 37.0-37.9, adult; Z91.14 Patient's other noncompliance with medication regimen; Z99.81 Dependence on supplemental oxygen; Z53.29 Procedure and treatment not carried out because of patient's decision for other reasons; Z96.0 Presence of urogenital implants; Z86.14 Personal history of Methicillin resistant Staphylococcus aureus infection; Z82.49 Family history of ischemic heart disease and other diseases of the circulatory system; Z79.891 Long term (current) use of opiate analgesic; Z79.899 Other long term (current) drug therapy

== ENCOUNTER 2017-04-26 12:04 | Inpatient (IN) | payer OTHER ==
[~2017-04-26] VITALS: Ht 167.6 cm; Wt 106.8 kg
[~2017-04-26 12:04] MED LIST changes: +BMX1 PO; +CBCI; -DEXT40GE PO; -FRS/40 PO; -MULT-506 PO
[2017-04-26] MEDS ORDERED: ACETAMINOPHEN 500 MG TAB PO STA (12:59)
[2017-04-26 13:29] LABS: BASO % 0.2 %; BASO ABS # 0.03 K/uL (0-0.2); COMPLETE YES; EOS % 0.9 %; HEMATOCRIT 28.3 % (37-47); IG% 0.6 %; LYMPH % 10.9 %; LYMPH ABS # 1.34 K/uL (1.2-3.4); MEAN CELL VOLUME 81.8 fL (80-100); MEAN CORPUSCULAR HEMOGLOBIN 26.6 pg (25-34); MEAN CORPUSCULAR HGB CONC 32.5 g/dl (32-36); MEAN PLATELET VOLUME 10.9 fL (7.4-10.4); MONO % 6.7 %; NEUT % 80.7 %; PLATELET COUNT 183 K/uL (130-400); RED BLOOD COUNT 3.46 M/uL (4.2-5.4); WHITE BLOOD COUNT 12.34 K/uL (4.8-10.8)
[2017-04-26] MEDS ORDERED: SODIUM CHLORIDE 0.9% 500ML 500 ML IV STA (13:43)
--- NOTE | 2017-04-26 13:46 | DIAGNOSTIC IMAGING REPORT ---
CHEST ONE VIEW PORTABLE CLINICAL HISTORY: Shortness of breath COMPARISON STUDY: 03/24/2017 FINDINGS: The heart remains enlarged. There is a right-sided catheter the tip of which projects over the superior vena cava. There is stable hilar prominence. There is persistent interstitial thickening. This may indicate mild pulmonary vascular congestion.[ IMPRESSION: Cardiomegaly and stable mild interstitial thickening/edema. No evidence of focal pulmonary consolidation. Electronically signed by: Tima Sorensen M.D. 04/26/2017 1:44 PM Dictated Date/Time: 04/26/2017 1:42 PM
[2017-04-26 13:47] LABS: ALT/SGPT 20 U/L (12-78); AST/SGOT 6 U/L (15-37); BLOOD UREA NITROGEN 79 mg/dl (7-18); BUN/CREATININE RATIO 37.8 (10-20); CALCIUM 8.6 mg/dl (8.5-10.1); CARBON DIOXIDE 21 mmol/L (21-32); CHLORIDE 107 mmol/L (98-107); GLUCOSE 292 mg/dl (70-99); POTASSIUM 5.7 mmol/L (3.5-5.1); SODIUM 135 mmol/L (136-145)
[2017-04-26 13:49] LABS: URINE APPEARANCE CLOUDY (CLEAR); URINE BILIRUBIN NEG (NEG); URINE COLOR YELLOW; URINE EPITHELIAL CELL AUTO >30 /lpf (0-5); URINE NITRITE POS (NEG); URINE SPECIFIC GRAVITY 1.012 (1.000-1.030); UROBILINOGEN NEG (NEG)
[2017-04-26 13:51] LABS: ISTAT CREATININE 2.1 mg/dl (0.6-1.3); ISTAT HEMOGLOBIN 9.5 g/dl (12.0-16.0); ISTAT IONIZED CALCIUM 1.22 mmol/l (1.12-1.32)
[2017-04-26 13:52] LABS: ALB/GLOB RATIO 0.7 (0.9-2); ALKALINE PHOSPHATASE 91 U/L (45-117); CKMB/CK RATIO 10.4 (0-3.0)
[2017-04-26 13:55] LABS: MANUAL MICROSCOPIC REQUIRED? NO; REVIEW REQ? YES
--- NOTE | 2017-04-26 14:07 | EMERGENCY ROOM VISIT NOTE ---
History Report prepared by Jarrell: Dolores Singh Under the Supervision of: Dr. Cl Zayas M.D. First contact with patient: 12:46 Chief Complaint: RESPIRATORY PROBLEMS Stated Complaint: LIVER FAILURE,SWELLING Nursing Triage Summary: Pt states that she was sent here by Dr. Bronw's office for an elevated BUN. Pt states "im a mess. My kidneys don't work and I can't breath. I have too much fluid on me." Pt states the she is more SOB than usual. Pt lives on 3lpm of oxygen at all times. Pt has a productive cough. Lungs are diminished with crackles in bases. Pt has a history of MRSA and is being treated at home via IV antibiotic for staff infections. Pt has a PICC in the upper right arm. Pt has bilateral lower extremity edema and multiple open wounds. Pt has an indwelling rodriguez. Pt states that she has pain all over at all times. History of Present Illness The patient is a 56 year old female who presents to the Emergency Room after being referred for an elevated BUN. The patient has been following with the wound center for wounds on her lower extremities. Two weeks ago she had a positive culture for a staph infection. She had a PICC line placed and was receiving IV antibiotics at home. She states that over the last couple of days about 45 minutes after the antibiotics she develops shaking. This has happened the last two days in a row. She called Dr. Brown's office, of infectious disease. They were concerned that the patient was dehydrated and she had an elevated BUN. She was told to come to the ED for further evaluation. The patient states that she feels dehydrated. Her muscles are achy all over. She rates her pain as a 6/10 in severity. She is on 3L of O2 at all times. Source of History: patient Onset: MOLD HOISTER Position: other (global) Symptom Intensity: 6/10 Quality: other (elevated BUN) Timing: constant Modifying Factors (Worsening): other (IV antibiotics) Note: Pt notes generalized body aches and shaking. Review of Systems See HPI for pertinent positives & negatives. A total of 10 systems reviewed and were otherwise negative. Past Medical & Surgical Medical Problems: (1) Acute respiratory failure (2) CHF (congestive heart failure) (3) Chills (4) Femur fracture, left (5) Hyponatremia (6) Leg swelling (7) Leg ulcer (8) Leukocytosis (9) MRSA (methicillin resistant Staphylococcus aureus) infection (10) Sacral decubitus ulcer, stage IV Family History No pertinent family history Social History Smoking Status: Current Every Day Smoker Drug Use: none Marital Status: single Occupation Status: disabled Current/Historical Medications Scheduled Bumetanide (Bumetanide), 0.5 MG PO DAILY Eucerin (Hydrocerin), 1 APPLN EXT BID Fluconazole (Diflucan), 100 MG PO DAILY Glimepiride (Amaryl), 4 MG PO BID Home O2 Therapy (Oxygen), 3 LITERS NA CONTINOUS Spironolactone (Aldactone), 50 MG PO BID Zolpidem Tartrate (Ambien), 1 TAB PO HS Scheduled PRN Levocetirizine Dihydrochloride (Levocetirizine Dihydrochl), 0.5 MG PO DAILY PRN for Itching Oxycodone HCl (Oxycodone HCl), 10 MG PO Q8 PRN for Pain Miscellaneous Medications Daptomycin (Cubicin) Allergies Coded Allergies: Vancomycin (Verified Allergy, Severe, ANAPHYLAXIS, 03/24/17) pt began shaking,face and neck bright red rash.o2 saturation dropping to 84% on 15lnrb Ampicillin (Verified Allergy, Mild, RASH, 03/24/17) Clindamycin (Verified Allergy, Mild, RASH, 03/24/17) Linezolid (Verified Allergy, Mild, RASH, 03/24/17) Penicillins (Verified Allergy, Mild, RASH, 03/24/17) Ciprofloxacin (Verified Adverse Reaction, Mild, MUSCLE ACHES, 03/24/17) muscle aches Methimazole (Verified Adverse Reaction, Mild, headache, 03/24/17) headache Nystatin (Verified Adverse Reaction, Mild, nausea, abd pain, kidney pain, 03/24/17) nausea, abd pain,kidney pain Physical Exam Vital Signs Date Time Temp Pulse Resp B/P (MAP) Pulse Ox O2 Delivery O2 Flow Rate FiO2 04/26/17 14:01 36.7 82 18 141/65 99 Nasal Cannula 3.0 04/26/17 13:29 93 Nasal Cannula 3.0 04/26/17 12:50 84 04/26/17 12:43 Nasal Cannula 3.0 04/26/17 12:36 93 Nasal Cannula 3.0 04/26/17 12:11 36.8 80 24 92 Nasal Cannula 3.0 Physical Exam GENERAL: Patient is a healthy-appearing well-nourished 56 year old female. HEAD: Normocephalic atraumatic EYES: Ocular movements intact pupils equal and react to light OROPHARYNX mucous membranes are moist no exudates present no erythema or edema present NECK: Supple no nuchal rigidity CHEST: Good equal expansion LUNGS: Clear and equal to auscultation CARDIAC: Normal S1 and S2, grade 2/6 systolic murmur. ABDOMEN: Soft nontender no guarding BACK: No CVA tenderness EXTREMITIES: No pain upon palpation normal muscle strength in all groups no clubbing cyanosis or edema. PICC line in place in the right upper extremity. Chronic venostases changes bilaterally to legs. Wounds in various stages of healing to the legs. NEURO: Patient is following commands and answering questions appropriately. Alert and oriented x3 Cranial Nerves 2-12 grossly intact Medical Decision & Procedures ER Provider Diagnostic Interpretation: Radiology results as stated below per my review and radiologist interpretation: CHEST ONE VIEW PORTABLE CLINICAL HISTORY: Shortness of breath COMPARISON STUDY: 03/24/2017 FINDINGS: The heart remains enlarged. There is a right-sided catheter the tip of which projects over the superior vena cava. There is stable hilar prominence. There is persistent interstitial thickening. This may indicate mild pulmonary vascular congestion.[ IMPRESSION: Cardiomegaly and stable mild interstitial thickening/edema. No evidence of focal pulmonary consolidation. Electronically signed by: Tima Sorensen M.D. 04/26/2017 1:44 PM Dictated Date/Time: 04/26/2017 1:42 PM Laboratory Results 04/26/17 13:25 Red Blood Count 3.46, Mean Corpuscular Volume 81.8, Mean Corpuscular Hemoglobin 26.6, Mean Corpuscular Hemoglobin Concent 32.5, Mean Platelet Volume 10.9, Neutrophils (%) (Auto) 80.7, Lymphocytes (%) (Auto) 10.9, Monocytes (%) (Auto) 6.7, Eosinophils (%) (Auto) 0.9, Basophils (%) (Auto) 0.2, Neutrophils # (Auto) 9.95, Lymphocytes # (Auto) 1.34, Monocytes # (Auto) 0.83, Eosinophils # (Auto) 0.11, Basophils # (Auto) 0.03 04/26/17 13:25 Test 04/26/17 13:15 04/26/17 13:25 04/26/17 13:40 Urine Color YELLOW Urine Appearance CLOUDY (CLEAR) Urine pH 6.0 (4.5-7.5) Urine Specific [place] 1.012 (1.000-1.030) Urine Protein 1+ (NEG) Urine Glucose (UA) 2+ (NEG) Urine Ketones NEG (NEG) Urine Occult Blood 1+ (NEG) Urine Nitrite POS (NEG) Urine Bilirubin NEG (NEG) Urine Urobilinogen NEG (NEG) Urine Leukocyte Esterase SMALL (NEG) Urine WBC (Auto) 10-30 /hpf (0-5) Urine RBC (Auto) 0-4 /hpf (0-4) Urine Hyaline Casts (Auto) 10-30 /lpf (0-5) Urine Epithelial Cells (Auto) >30 /lpf (0-5) Urine Bacteria (Auto) 3+ (NEG) Urine Renal Epithelial Cells /lpf (0-5) Urine Crystals AMORPHOUS SEDIMENT (NONE White Blood Count 12.34 K/uL (4.8-10.8) Red Blood Count 3.46 M/uL (4.2-5.4) Hemoglobin 9.2 g/dL (12.0-16.0) Hematocrit 28.3 % (37-47) Mean Corpuscular Volume 81.8 fL (80-100) Mean Corpuscular Hemoglobin 26.6 pg (25-34) Mean Corpuscular Hemoglobin Concent 32.5 g/dl (32-36) Platelet Count 183 K/uL (130-400) Mean Platelet Volume 10.9 fL (7.4-10.4) Neutrophils (%) (Auto) 80.7 % Lymphocytes (%) (Auto) 10.9 % Monocytes (%) (Auto) 6.7 % Eosinophils (%) (Auto) 0.9 % Basophils (%) (Auto) 0.2 % Neutrophils # (Auto) 9.95 K/uL (1.4-6.5) Lymphocytes # (Auto) 1.34 K/uL (1.2-3.4) Monocytes # (Auto) 0.83 K/uL (0.11-0.59) Eosinophils # (Auto) 0.11 K/uL (0-0.5) Basophils # (Auto) 0.03 K/uL (0-0.2) RDW Standard Deviation 45.7 fL (36.4-46.3) RDW Coefficient of Variation 15.4 % (11.5-14.5) Immature Granulocyte % (Auto) 0.6 % Immature Granulocyte # (Auto) 0.08 K/uL (0.00-0.02) Est Creatinine Clear Calc Drug Dose 36.7 ml/min Estimated GFR () 29.3 Estimated GFR (Non- 25.3 BUN/Creatinine Ratio 37.8 (10-20) Calcium Level 8.6 mg/dl (8.5-10.1) Total Bilirubin 0.3 mg/dl (0.2-1) Aspartate Amino Transf (AST/SGOT) 6 U/L (15-37) Alanine Aminotransferase (ALT/SGPT) 20 U/L (12-78) Alkaline Phosphatase 91 U/L (45-117) Total Creatine Kinase 27 U/L (26-192) Creatine Kinase MB 2.8 ng/ml (0.5-3.6) Creatine Kinase MB Ratio 10.4 (0-3.0) Troponin I < 0.015 ng/ml (0-0.045) Pro-B-Type Natriuretic Peptide 01941 pg/ml (0-900) Total Protein 6.4 gm/dl (6.4-8.2) Albumin 2.7 gm/dl (3.4-5.0) Globulin 3.7 gm/dl (2.5-4.0) Albumin/Globulin Ratio 0.7 (0.9-2) Bedside Hemoglobin 9.5 g/dl (12.0-16.0) Bedside Hematocrit 28 % (37-47) Bedside Sodium 135 mEq/L (135-144) Bedside Potassium 5.7 mEq/L (3.3-5.0) Bedside Chloride 105 mEq/L (101-112) Bedside Total CO2 20 mEq/l (24-31) Anion Gap 17.0 mmol/L (16-25) Bedside Blood Urea Nitrogen 84 mg/dl (7-18) Bedside Creatinine 2.1 mg/dl (0.6-1.3) Bedside Glucose (other) 280 mg/dl (70-99) Bedside Ionized Calcium ([place]) 1.22 mmol/l (1.12-1.32) Labs reviewed by ED physician. Medications Administered Medications (Trade) Dose Ordered Sig/Bruno Route Start Time Stop Time Status Last Admin Dose Admin Acetaminophen (Tylenol Tab) 1,000 mg NOW STAT PO 04/26/17 12:59 04/26/17 13:02 DC 04/26/17 12:59 1,000 MG Sodium Chloride 500 ml @ 999 mls/hr Q31M STAT IV 04/26/17 13:43 04/26/17 14:13 DC 04/26/17 14:00 999 MLS/HR ECG Indication: other Rate (beats per minute): 84 Rhythm: sinus rhythm Findings: PVC, no acute ischemic change ED Course 1246: Past medical records reviewed. The patient was evaluated in room C8. A complete history and physical examination was performed. 1259: Tylenol tab 1000 mg PO 1343: NSS 500 ml @ 999 mls/hr IV 1358: I discussed the case with Dr. Brown. He recommended keeping the patient in the hospital. 1407: I spoke with Dr. Mora. We discussed the patient's case. The patient will be evaluated by the [facility] for further management. 1411: I reassessed the patient at this time. She is feeling better and resting comfortably. I discussed the results and treatment plan with the patient. I answered all pertaining questions that she had. She expressed understanding and verbalized agreement. Medical Decision Differential diagnosis: Etiologies such as cellulitis, abscess, MRSA infection, DVT, necrotizing fasciitis, dermatitis, drug eruption, as well as others were entertained. This is a 56-year-old female who presents emergency department complaining of having an adverse reaction to her antibiotic. The patient was sent in by her infectious disease doctor. She is requesting Tylenol upon arrival to the emergency department and is complaining of dehydration. Her creatinine is slightly bumped and she does have an elevation in her white blood count cell count. I did discuss the case with both infectious disease as well as the hospitalist who agreed to admit the patient. Patient was in agreement with the treatment plan. Medication Reconcilliation Current Medication List: was personally reviewed by me Blood Pressure Screening Patient's blood pressure: Elevated blood pressure Blood pressure disposition: Referred to PCP Consults Time Called: [phone] Consulting Physician: Dr. Brown Returned Call: [phone] I discussed the case with Dr. Brown. He recommended keeping the patient in the hospital. Additional Consults: Time Called: [phone] Consulted Physician: Dr. Mora Returned Call: [phone] Additional Comments: I spoke with Dr. Mora. We discussed the patient's case. The patient will be evaluated by the [facility] for further management. Impression Primary Impression: Dehydration Scribe Attestation The scribe's documentation has been prepared under my direction and personally reviewed by me in its entirety. I confirm that the note above accurately reflects all work, treatment, procedures, and medical decision making performed by me. Departure Information Dispostion Being Evaluated By Hospitalist Referrals No Doctor, Assigned (PCP) Patient Instructions My [facility]
[2017-04-26] MEDS ORDERED: MAGNESIUM HYDROXIDE SUSP 30 ML UDC PO PRN (15:00)
[2017-04-26] MEDS ORDERED: ONDANSETRON INJ 2 MG/ML 2 ML VIAL IV PRN (15:00)
[2017-04-26] MEDS ORDERED: ALUMINUM/MAGNESIUM/SIMETH (MAALOX MAX) 30 ML UDC PO PRN (15:00)
[2017-04-26] MEDS ORDERED: NITROGLYCERIN 0.4 MG SL PER TAB CHARGE SL PRN (15:00)
[2017-04-26] MEDS ORDERED: POLYETHYLENE (MIRALAX) 17 GM PACK PO PRN (15:00)
[2017-04-26] MEDS ORDERED: PHARMACY GLYCEMIC MGMT CONSULT PRN (15:24)
--- NOTE | 2017-04-26 15:32 | History and Physical ---
History & Physical Date & Time of Service: Apr 26, 2017 at 15:10 Chief Complaint: Liver Failure,Swelling Primary Care Physician: No Doctor, Assigned History of Present Illness Source: patient, clinic records, hospital records Patient is a 56 y/o female, with PMHx of COPD on chronic 3L O2, cor pulmonale, R -sided CHF, T2DM, chronic R leg ulcer, sacral ulcer, CKD stage III-IV, chronic anemia, indwelling Rodriguez catheter, h/o DVT w/ IVC filter placement, who presented to the ED per Dr. Brown's recommendations due to kidney function. Patient follows w/ Dr. Brown for continued wound care. She is currently on Daptomycin. However, patient quit taking all of her medications last Saturday. When asking her why, she states she started to develop generalized chills and thought it was due to the Daptomycin. She also follows w/ wound care- last wound change on 04/24. Wound is MRSA positive. Additionally, she quit taking Bumex because she did not feel it was helping and having little UO. Patient has chronic Rodriguez due to sacral ulcer. She states it gets changed every 30 days and she believes it is about time for it to be changed. She was most recently admitted to [facility] at the beginning of March due to decompensated CHF- her Lasix was changed to Bumex. +increase in lower extremity edema. Patient denies any fever, sweats, lightheadedness, dizziness, vision changes, CP, palpitations, SOB , wheezing, cough, abdominal pain, nausea, vomiting, diarrhea, urinary symptoms , melena, numbness/tingling, weakness, muscle/joint pain, anxiety/depression, active bleeding, or new skin discoloration/changes. Past Medical/Surgical History Medical Problems: COPD on chronic 3L O2 cor pulmonale R-sided CHF T2DM chronic R leg ulcer, sacral ulcer- MRSA positive CKD stage III-IV chronic anemia indwelling Rodriguez catheter h/o DVT w/ IVC filter placement tobacco abuse Surgical History: Left hip ORIF IVC filter Vein surgery Family History No pertinent family history Social History Smoking Status: Current Every Day Smoker Drug Use: none Marital Status: single Housing status: lives alone Occupational Status: disabled Multi-Drug Resistant Organisms History of MDRO: Yes Type of MDRO: MRSA Allergies Coded Allergies: Vancomycin (Verified Allergy, Severe, ANAPHYLAXIS, 03/24/17) pt began shaking,face and neck bright red rash.o2 saturation dropping to 84% on 15lnrb Ampicillin (Verified Allergy, Mild, RASH, 03/24/17) Clindamycin (Verified Allergy, Mild, RASH, 03/24/17) Linezolid (Verified Allergy, Mild, RASH, 03/24/17) Penicillins (Verified Allergy, Mild, RASH, 03/24/17) Ciprofloxacin (Verified Adverse Reaction, Mild, MUSCLE ACHES, 03/24/17) muscle aches Methimazole (Verified Adverse Reaction, Mild, headache, 03/24/17) headache Nystatin (Verified Adverse Reaction, Mild, nausea, abd pain, kidney pain, 03/24/17) nausea, abd pain,kidney pain Home Medications Scheduled Bumetanide (Bumetanide), 0.5 MG PO DAILY Eucerin (Hydrocerin), 1 APPLN EXT BID Fluconazole (Diflucan), 100 MG PO DAILY Glimepiride (Amaryl), 4 MG PO BID Home O2 Therapy (Oxygen), 3 LITERS NA CONTINOUS Spironolactone (Aldactone), 50 MG PO BID Zolpidem Tartrate (Ambien), 1 TAB PO HS Scheduled PRN Levocetirizine Dihydrochloride (Levocetirizine Dihydrochl), 0.5 MG PO DAILY PRN for Itching Oxycodone HCl (Oxycodone HCl), 10 MG PO Q8 PRN for Pain Miscellaneous Medications Daptomycin (Cubicin) Physical Exam Vital Signs Date Time Temp Pulse Resp B/P (MAP) Pulse Ox O2 Delivery O2 Flow Rate FiO2 04/26/17 14:01 36.7 82 18 141/65 99 Nasal Cannula 3.0 04/26/17 13:29 93 Nasal Cannula 3.0 04/26/17 12:50 84 04/26/17 12:43 Nasal Cannula 3.0 04/26/17 12:36 93 Nasal Cannula 3.0 04/26/17 12:11 36.8 80 24 92 Nasal Cannula 3.0 General Appearance: + mild distress (generalized chills ), + obese, + pertinent finding (3L O2 NC) Eyes: normal inspection, PERRL ENT: hearing grossly normal Neck: supple Respiratory/Chest: no respiratory distress, no accessory muscle use, + decreased breath sounds Cardiovascular: regular rate, rhythm, + systolic murmur Abdomen/GI: normal bowel sounds, non tender, soft Back: normal inspection Extremities/Musculoskelatal: no calf tenderness, + swelling (+1 pitting edema to bilateral lower extremities ), + pertinent finding (bilateral chronic stasis dermatitis changes; noted proximal anterior R vega wound with bandage in place ) Neurologic/Psych: alert, normal mood/affect, oriented x 3 Skin: normal color, warm/dry, no rash Diagnostics Laboratory Results Results Past 24 Hours Test 04/26/17 13:15 04/26/17 13:25 04/26/17 13:40 Range/Units Urine Color YELLOW Urine Appearance CLOUDY CLEAR Urine pH 6.0 4.5-7.5 Urine Specific [place] 1.012 1.000-1.030 Urine Protein 1+ NEG Urine Glucose (UA) 2+ NEG Urine Ketones NEG NEG Urine Occult Blood 1+ NEG Urine Nitrite POS NEG Urine Bilirubin NEG NEG Urine Urobilinogen NEG NEG Urine Leukocyte Esterase SMALL NEG Urine WBC (Auto) 10-30 0-5 /hpf Urine RBC (Auto) 0-4 0-4 /hpf Urine Hyaline Casts (Auto) 10-30 0-5 /lpf Urine Epithelial Cells (Auto) >30 0-5 /lpf Urine Bacteria (Auto) 3+ NEG Urine Renal Epithelial Cells 0-5 /lpf Urine Crystals AMORPHOUS SEDIMENT NONE PRSENT White Blood Count 12.34 4.8-10.8 K/uL Red Blood Count 3.46 4.2-5.4 M/uL Hemoglobin 9.2 12.0-16.0 g/dL Hematocrit 28.3 37-47 % Mean Corpuscular Volume 81.8 80-100 fL Mean Corpuscular Hemoglobin 26.6 25-34 pg Mean Corpuscular Hemoglobin Concent 32.5 32-36 g/dl Platelet Count 183 130-400 K/uL Mean Platelet Volume 10.9 7.4-10.4 fL Neutrophils (%) (Auto) 80.7 % Lymphocytes (%) (Auto) 10.9 % Monocytes (%) (Auto) 6.7 % Eosinophils (%) (Auto) 0.9 % Basophils (%) (Auto) 0.2 % Neutrophils # (Auto) 9.95 1.4-6.5 K/uL Lymphocytes # (Auto) 1.34 1.2-3.4 K/uL Monocytes # (Auto) 0.83 0.11-0.59 K/uL Eosinophils # (Auto) 0.11 0-0.5 K/uL Basophils # (Auto) 0.03 0-0.2 K/uL RDW Standard Deviation 45.7 36.4-46.3 fL RDW Coefficient of Variation 15.4 11.5-14.5 % Immature Granulocyte % (Auto) 0.6 % Immature Granulocyte # (Auto) 0.08 0.00-0.02 K/uL Sodium Level 135 136-145 mmol/L Potassium Level 5.7 3.5-5.1 mmol/L Chloride Level 107 98-107 mmol/L Carbon Dioxide Level 21 21-32 mmol/L Anion Gap 7.0 17.0 16-25 mmol/L Blood Urea Nitrogen 79 7-18 mg/dl Creatinine 2.10 0.60-1.20 mg/dl Est Creatinine Clear Calc Drug Dose 36.7 ml/min Estimated GFR () 29.3 Estimated GFR (Non- 25.3 BUN/Creatinine Ratio 37.8 10-20 Random Glucose 292 70-99 mg/dl Calcium Level 8.6 8.5-10.1 mg/dl Total Bilirubin 0.3 0.2-1 mg/dl Aspartate Amino Transf (AST/SGOT) 6 15-37 U/L Alanine Aminotransferase (ALT/SGPT) 20 12-78 U/L Alkaline Phosphatase 91 45-117 U/L Total Creatine Kinase 27 26-192 U/L Creatine Kinase MB 2.8 0.5-3.6 ng/ml Creatine Kinase MB Ratio 10.4 0-3.0 Troponin I < 0.015 0-0.045 ng/ml Pro-B-Type Natriuretic Peptide 99755 0-900 pg/ml Total Protein 6.4 6.4-8.2 gm/dl Albumin 2.7 3.4-5.0 gm/dl Globulin 3.7 2.5-4.0 gm/dl Albumin/Globulin Ratio 0.7 0.9-2 Bedside Hemoglobin 9.5 12.0-16.0 g/dl Bedside Hematocrit 28 37-47 % Bedside Sodium 135 135-144 mEq/L Bedside Potassium 5.7 3.3-5.0 mEq/L Bedside Chloride 105 101-112 mEq/L Bedside Total CO2 20 24-31 mEq/l Bedside Blood Urea Nitrogen 84 7-18 mg/dl Bedside Creatinine 2.1 0.6-1.3 mg/dl Bedside Glucose (other) 280 70-99 mg/dl Bedside Ionized Calcium ([place]) 1.22 1.12-1.32 mmol/l Microbiology Results 04/26/17 Blood Culture, Ordered Pending 04/26/17 Blood Culture, Ordered Pending Diagnostic Radiology CHEST ONE VIEW PORTABLE CLINICAL HISTORY: Shortness of breath COMPARISON STUDY: 03/24/2017 FINDINGS: The heart remains enlarged. There is a right-sided catheter the tip of which projects over the superior vena cava. There is stable hilar prominence. There is persistent interstitial thickening. This may indicate mild pulmonary vascular congestion.[ IMPRESSION: Cardiomegaly and stable mild interstitial thickening/edema. No evidence of focal pulmonary consolidation. Electronically signed by: Tima Sorensen M.D. 04/26/2017 1:44 PM Dictated Date/Time: 04/26/2017 1:42 PM The status of this report is Signed. Draft = Not yet reviewed or approved by Radiologist. Signed = Reviewed and approved by Radiologist. EKG LOC PADILLA ID:[id number] 26-APR-2017 13:15:24 [facility] Poor data quality, interpretation may be adversely affected Sinus rhythm with occasional Premature ventricular complexes Right axis deviation Possible Right ventricular hypertrophy Nonspecific ST abnormality Abnormal ECG When compared with ECG of 24-MAR-2017 12:11, Premature ventricular complexes are now Present KS interval has decreased 25mm/s 10mm/mV 150Hz 8.0 SP2 12SL 241 BERONICA: 0 Referred by: Referred Self Unconfirmed Vent. rate 84 BPM KS interval 192 ms QRS duration 84 ms QT/QTc 386/456 ms P-R-T axes 27 112 73 1960 (56 yr) Female 1lb Room: Loc:15 [facility] Department Chair:Ayla Carrillo ind: Impression Assessment and Plan Patient is a 56 y/o female, with PMHx of COPD on chronic 3L O2, cor pulmonale, R -sided CHF, T2DM, chronic R leg ulcer, sacral ulcer, CKD stage III-IV, chronic anemia, indwelling Rodriguez catheter, h/o DVT w/ IVC filter placement, who presented to the ED per Dr. Brown's recommendations due to kidney function. Decompensated R CHF: - Admit to med/surg - IV 1 mg Bumex daily; hold Bumex 0.5 mg daily - Monitor I&O's and daily weights - Hold Aldactone due to hyperkalemia Mild hyperkalemia at 5.7: Hold Aldactone 50 mg BID- follow PRP R leg ulcer/sacral ulcer: - Consult ID and wound care - Continue Daptomycin at this time pending ID consultations - BCx pending UTI secondary to chronic Rodriguez: - IV Rocephin pending UCx due to being on Daptomycin at admission - Change Rodriguez catheter COPD without exacerbation: - O2 protocol, wean as tolerated- wears 3L O2 11/03 CKD stage III-IV, baseline Cr 1.6-2.0: Kidney function does not appear to be far off from baseline- follow PRP with IV Bumex Chronic anemia, ?secondary to CKD- STABLE: Follow CBC T2DM, HgbA1C 8.7% on 03/25: - Continue Glimepiride 4 mg BID - BSG ACHS and sliding insulin scale - Glycemic control consultation Tobacco Abuse: Smoking cessation counselling DVT prophylaxis: Heparin SQ BID Code Status: LEVEL I, FULL Dispo: From home, lives alone; has [facility]- social work associate and PT/OT consulted Level of Care Med/Surg Resuscitation Status FULL RESUSCITATION VTE Prophylaxis VTE Risk Assessment Done? Y/N: Yes Risk Level: Moderate Given or contraindicated: Unfractionated heparin SQ, T.E.D. Stockings, SCD's Reviewed: Pt Seen/Exam by Me History Pt states she had no pain related to her wounds. She is uncomfortable with the current mattress and would like more pillows as well, but no other concerns. Denies SOB, chest pain, abd complaints. Agree with HPI/ROS as noted. General Appearance: no apparent distress, obese Respiratory: normal breath sounds, no respiratory distress Cardiovascular: normal peripheral pulses, regular rate, rhythm Gastrointestinal: non tender, soft Extremities: non-tender, no pedal edema Neurologic/Psychiatric: alert, oriented x 3 Skin Characteristics: warm/dry, other (skin changes on LE c/w chronic infection ) Assessment/Plan Agree with plan as outlined above Chronic ulcerations, MRSA + Self d/c'd abx at home, resume ID and WCC pending Blood cx Elevated WBC HyperK, holding aldactone Acute on chronic renal failure, baseline appears around 1.8, now at 2.1 UA +, add rocephin given development of UTI on abx, cx sensi for this in the past Pt with chronic rodriguez COPD stable
--- NOTE | 2017-04-26 15:33 | Pharmacy Progress Note ---
Glycemic Control Intl Consult Date of Service Apr 26, 2017. Scope Glycemic Pharmacist consulted by Vidya Conklin on 04/26/17 for glycemic control and to write orders per [facility] inpatient glycemic control protocol Objective Weight (Kilograms): 110.000 Accuchecks BSG (last 24hrs): Test 04/26/17 13:25 Random Glucose 292 mg/dl (70-99) Laboratory Data (last 24hrs) Test 04/26/17 13:25 04/26/17 13:40 Anion Gap 7.0 mmol/L 17.0 mmol/L BUN/Creatinine Ratio 37.8 Blood Urea Nitrogen 79 mg/dl Creatinine 2.10 mg/dl Potassium Level 5.7 mmol/L Sodium Level 135 mmol/L White Blood Count 12.34 K/uL Red Blood Count 3.46 M/uL Hemoglobin 9.2 g/dL Hematocrit 28.3 % Mean Corpuscular Volume 81.8 fL Mean Corpuscular Hemoglobin 26.6 pg Mean Corpuscular Hemoglobin Concent 32.5 g/dl Platelet Count 183 K/uL Mean Platelet Volume 10.9 fL Neutrophils (%) (Auto) 80.7 % Lymphocytes (%) (Auto) 10.9 % Monocytes (%) (Auto) 6.7 % Eosinophils (%) (Auto) 0.9 % Basophils (%) (Auto) 0.2 % Neutrophils # (Auto) 9.95 K/uL Lymphocytes # (Auto) 1.34 K/uL Monocytes # (Auto) 0.83 K/uL Eosinophils # (Auto) 0.11 K/uL Basophils # (Auto) 0.03 K/uL Recent Pertinent Medications Outpatient Anti-diabetic Regimen: * Amaryl 4 mg PO BID * A1c = 8.7 % 03/25/17 Risk Factors for Insulin Resistance: * Infection: chronic cellulitis on daptomycin * Diet: type 2 diabetic diet Assessment & Plan ASSESSMENT: * ADA & AACE recommend a goal blood sugar range 140-180 mg/dl for the majority of critically ill & non-critically ill patients. However, more stringent targets may be selected in individual cases. A Will utilize more stringent goal of 110-140mg/dl based on patient age & comorbidities. Additionally, tighter glycemic control is warranted to facilitate wound/infection healing. * Ms Watkins is a 56 y/o F with a PMH of cellulitis on daptomycin as an outpatient (h/o MRSA) and CKD (baseline creatinine = 2.0 mg/dL) admitted with worsening leg swelling and kidney dysfunction. She was seen previously by the glycemic service when she was critically ill and tolerating tube feeds. In comparison, the patient has lost weight but her HbA1C has worsened significantly. * In order to provide adequate glycemic control basal-bolus regimen will be established. Will start a weight-based stress of 1-2 sliding scale this evening along with weight-based stress of 2 correctional insulin. This is supported by the previous hospitalization. She did not require as much Lantus during that hospitalization but her glycemic control has worsened. * Pt is maintained on oral antidiabetic agents as an outpatient * Oral agents are not recommended for inpatient use d/t drug interactions, changing PO intake, and difficulty titrating for acute hyper/hypoglycemia. ADA recommends re-initiating outpatient oral agents 1-2 days prior to discharge if/ when appropriate if they were held on admission. * Will hold oral agents for admission and utilize SQ basal bolus insulin regimen which is the recommended regimen for inpatient glycemic control. * Will initiate weight based insulin dosing for insulin nik patient and titrate based on BSG trends. PLAN FOR INPATIENT GLYCEMIC CONTROL: * Holding outpatient oral diabetes medications * Basal insulin with LANTUS 10-20 units SQ BID (Lantus 10 units if BSG less than 140 mg/dL and Lantus 20 units if BSG 140 mg/dL or greater) * Correctional Insulin with NOVOLOG / REGULAR per scale ACHS or Q6hrs while NPO * Goal Range: Low 110 mg/dL - High 140 mg/dL * Correction Factor: 20 mg/dL/unit * Nutritional / Prandial insulin per carb ratio of 1 unit per 7 grams CHO consumed * Please note that the plan above was derived based on current level of insulin resistance and hospital stress. These recommendations are appropriate for inpatient admission only. Plan of care upon discharge will need to be reassessed to avoid potential outpatient hypo/hyperglycemia. Thank you.
[2017-04-26] MEDS: INSULIN ASPART 100 UNITS/ML 3 ML PEN SC SCH ×2 (16:00→20:49)
[2017-04-26 16:20] VITALS: BP 146/72; PULSE 95; TEMP 36.8; O2SAT 91
[2017-04-26 17:00] VITALS: BP 146/72; PULSE 95; TEMP 36.8; O2SAT 91; Ht 167.6 cm; Wt 106.8 kg
[2017-04-26 17:30] LABS: INR 1.1 (0.9-1.1); PARTIAL THROMBOPLASTIN RATIO 1.3; PROTHROMBIN TIME (PATIENT) 12.2 SECONDS (9.0-12.0)
[2017-04-26] MEDS ORDERED: BUMETANIDE IV 1 MG in SYRINGE 0 ML IV ONE (17:30)
[2017-04-26] MEDS: CEFTRIAXONE SOD INJ 1 GM in DEXTROSE 5% ADD-VANTAGE 50ML 50 ML IV SCH (18:15)
--- NOTE | 2017-04-26 18:33 | Medical Consult ---
Consultation Date of Consultation: Apr 26, 2017. Attending Physician: Lucia Mora DO Reason for Consultation: Left leg ulcer History of Present Illness 56-year-old female with longstanding COPD, diabetes mellitus, stage IV sacral decubitus, who was being followed [facility] for right leg ulceration with infection. Cultures recently have grown a methicillin sensitive Staph aureus. Patient was treated with IV dalvabancin but had some worsening and was started on IV daptomycin. She subsequently developed fever and chills with increasing weakness with evidence of worsening renal function, and was sent to the hospital for admission. Has evidence possible urinary tract infection on urinalysis. Cultures thus far pending. Currently being treated with combination of daptomycin and ceftriaxone. No evidence of worsening leg infection over last several days. Past Medical/Surgical History Medical Problems: (1) Acute renal disease Status: Acute (2) ELIZABETH (acute kidney injury) Status: Acute (3) Cellulitis of both lower extremities Status: Acute (4) CHF (congestive heart failure) Status: Acute (5) CHF (congestive heart failure) Status: Acute (6) Dehydration Status: Acute (7) Hypoxia Status: Acute (8) Pickwickian syndrome Status: Acute (9) Pneumonia Status: Acute (10) Respiratory failure Status: Acute (11) Sacral decubitus ulcer, stage III Status: Acute (12) UTI (urinary tract infection) Status: Acute Medical Problems: (1) Acute respiratory failure (2) CHF (congestive heart failure) (3) Chills (4) Femur fracture, left (5) Hyponatremia (6) Leg swelling (7) Leg ulcer (8) Leukocytosis (9) MRSA (methicillin resistant Staphylococcus aureus) infection (10) Sacral decubitus ulcer, stage IV Family History No pertinent family history Social History Smoking Status: Current Every Day Smoker Drug Use: none Marital Status: single Occupation Status: disabled Allergies Coded Allergies: Vancomycin (Verified Allergy, Severe, ANAPHYLAXIS, 03/24/17) pt began shaking,face and neck bright red rash.o2 saturation dropping to 84% on 15lnrb Ampicillin (Verified Allergy, Mild, RASH, 03/24/17) Clindamycin (Verified Allergy, Mild, RASH, 03/24/17) Linezolid (Verified Allergy, Mild, RASH, 03/24/17) Penicillins (Verified Allergy, Mild, RASH, 03/24/17) Ciprofloxacin (Verified Adverse Reaction, Mild, MUSCLE ACHES, 03/24/17) muscle aches Methimazole (Verified Adverse Reaction, Mild, headache, 03/24/17) headache Nystatin (Verified Adverse Reaction, Mild, nausea, abd pain, kidney pain, 03/24/17) nausea, abd pain,kidney pain Current Inpatient Medications Current Inpatient Medications Medications (Trade) Dose Ordered Sig/Bruno Route Start Time Stop Time Status Last Admin Dose Admin Heparin Sodium (Porcine) (Heparin Sq 5000 Unit/0.5ml) 5,000 unit Q12 SQ 04/26/17 21:00 05/26/17 20:59 Acetaminophen (Tylenol Tab) 650 mg Q4H PRN PO 04/26/17 15:00 05/26/17 14:59 Al Hydrox/Mg Hydrox/Simethicone (Maalox Max Susp) 15 ml Q4H PRN PO 04/26/17 15:00 05/26/17 14:59 Magnesium Hydroxide (Milk Of Magnesia Susp) 30 ml Q12H PRN PO 04/26/17 15:00 05/26/17 14:59 Ondansetron HCl (Zofran Inj) 4 mg Q6H PRN IV 04/26/17 15:00 05/26/17 14:59 Nitroglycerin (Nitrostat Tab) 0.4 mg UD PRN SL 04/26/17 15:00 05/26/17 14:59 Polyethylene (Miralax Powder Packet) 17 gm DAILY PRN PO 04/26/17 15:00 05/26/17 14:59 Bumetanide 1 mg/ Syringe 4 ml @ 4 mls/min DAILY@0900 IV 04/27/17 09:00 05/27/17 08:59 Ceftriaxone Sodium 1 gm/ Dextrose 50 ml @ 100 mls/hr Q24H IV 04/26/17 18:00 05/01/17 17:59 04/26/17 18:15 100 MLS/HR Multi-Ingredient Ointment (Eucerin Unscented Cr) 1 appln BID EXT 04/26/17 21:00 05/26/17 20:59 Zolpidem Tartrate (Ambien Tab) 5 mg HSZ PO 04/26/17 22:00 05/26/17 21:59 Oxycodone HCl (Roxicodone Immediate Rel Tab) 5 mg Q8H PRN PO 04/26/17 15:00 05/10/17 14:59 Insulin Aspart (novoLOG ASPART) SLIDING SCALE G... ACHS DC 04/26/17 16:00 05/26/17 15:59 Miscellaneous Information (Consult Glycemic Management Pharmacy) 1 ea UD PRN N/A 04/26/17 15:24 05/26/17 15:23 Insulin Glargine (Lantus Solostar Pen) SEE PROTOCOL HS SC 04/26/17 21:00 05/26/17 20:59 Daptomycin 440 mg/ Sodium Chloride 58.8 ml @ 120 mls/hr Q24H IV 04/26/17 20:00 05/06/17 19:59 Review of Systems Constitutional: + fever, + chills, + weakness Eyes: No problem reported ENT: No problem reported Respiratory: No problem reported Cardiovascular: No problem reported Abdomen: No problem reported Musculoskeletal: No problem reported Genitourinary - Female: + urinary frequency, No vaginal itching Neurologic: No problem reported Psychiatric: No problem reported Endocrine: No problem reported Hematologic / Lymphatic: No problem reported Integumentary: + new/changing skin lesions Allergic / Immunologic: No problem reported Physical Exam Date Time Temp Pulse Resp B/P (MAP) Pulse Ox O2 Delivery O2 Flow Rate FiO2 04/26/17 14:01 36.7 82 18 141/65 99 Nasal Cannula 3.0 04/26/17 13:29 93 Nasal Cannula 3.0 04/26/17 12:50 84 04/26/17 12:43 Nasal Cannula 3.0 04/26/17 12:36 93 Nasal Cannula 3.0 04/26/17 12:11 36.8 80 24 92 Nasal Cannula 3.0 General Appearance: WD/WN, no apparent distress, + obese Head: normocephalic, atraumatic Eyes: normal inspection, EOMI, sclerae normal ENT: normal ENT inspection, hearing grossly normal, pharynx normal Neck: supple, no adenopathy, thyroid normal, trachea midline Respiratory/Chest: chest non-tender, lungs clear, normal breath sounds, no respiratory distress Cardiovascular: regular rate, rhythm, no gallop, no murmur Abdomen/GI: normal bowel sounds, non tender, soft, no organomegaly Back: normal inspection, no CVA tenderness Extremities/Musculoskelatal: no calf tenderness, normal capillary refill, + pertinent finding ( Right leg ulceration) Neurologic/Psych: alert, oriented x 3 Skin: normal color, no rash, + pertinent finding ( clean sacral decubitus, right leg ulceration without significant surrounding erythema) Lymphatic: no adenopathy Laboratory Results Date/Time Source Procedure Growth Status 04/26/17 17:10 Blood Blood Culture Pending Received 04/26/17 17:05 Blood Blood Culture Pending Received Last 24 Hours Test 04/26/17 13:15 04/26/17 13:25 04/26/17 13:40 04/26/17 17:07 Prothrombin Time 12.2 SECONDS Prothromb Time International Ratio 1.1 Activated Partial Thromboplast Time 33.5 SECONDS Partial Thromboplastin Ratio 1.3 Urine Color YELLOW Urine Appearance CLOUDY Urine pH 6.0 Urine Specific [place] 1.012 Urine Protein 1+ Urine Glucose (UA) 2+ Urine Ketones NEG Urine Occult Blood 1+ Urine Nitrite POS Urine Bilirubin NEG Urine Urobilinogen NEG Urine Leukocyte Esterase SMALL Urine WBC (Auto) 10-30 /hpf Urine RBC (Auto) 0-4 /hpf Urine Hyaline Casts (Auto) 10-30 /lpf Urine Epithelial Cells (Auto) >30 /lpf Urine Bacteria (Auto) 3+ Urine Renal Epithelial Cells /lpf Urine Crystals AMORPHOUS SEDIMENT White Blood Count 12.34 K/uL Red Blood Count 3.46 M/uL Hemoglobin 9.2 g/dL Hematocrit 28.3 % Mean Corpuscular Volume 81.8 fL Mean Corpuscular Hemoglobin 26.6 pg Mean Corpuscular Hemoglobin Concent 32.5 g/dl Platelet Count 183 K/uL Mean Platelet Volume 10.9 fL Neutrophils (%) (Auto) 80.7 % Lymphocytes (%) (Auto) 10.9 % Monocytes (%) (Auto) 6.7 % Eosinophils (%) (Auto) 0.9 % Basophils (%) (Auto) 0.2 % Neutrophils # (Auto) 9.95 K/uL Lymphocytes # (Auto) 1.34 K/uL Monocytes # (Auto) 0.83 K/uL Eosinophils # (Auto) 0.11 K/uL Basophils # (Auto) 0.03 K/uL RDW Standard Deviation 45.7 fL RDW Coefficient of Variation 15.4 % Immature Granulocyte % (Auto) 0.6 % Immature Granulocyte # (Auto) 0.08 K/uL Sodium Level 135 mmol/L Potassium Level 5.7 mmol/L Chloride Level 107 mmol/L Carbon Dioxide Level 21 mmol/L Anion Gap 7.0 mmol/L 17.0 mmol/L Blood Urea Nitrogen 79 mg/dl Creatinine 2.10 mg/dl Est Creatinine Clear Calc Drug Dose 36.7 ml/min Estimated GFR () 29.3 Estimated GFR (Non- 25.3 BUN/Creatinine Ratio 37.8 Random Glucose 292 mg/dl Calcium Level 8.6 mg/dl Total Bilirubin 0.3 mg/dl Aspartate Amino Transf (AST/SGOT) 6 U/L Alanine Aminotransferase (ALT/SGPT) 20 U/L Alkaline Phosphatase 91 U/L Total Creatine Kinase 27 U/L Creatine Kinase MB 2.8 ng/ml Creatine Kinase MB Ratio 10.4 Troponin I < 0.015 ng/ml Pro-B-Type Natriuretic Peptide 59117 pg/ml Total Protein 6.4 gm/dl Albumin 2.7 gm/dl Globulin 3.7 gm/dl Albumin/Globulin Ratio 0.7 Bedside Hemoglobin 9.5 g/dl Bedside Hematocrit 28 % Bedside Sodium 135 mEq/L Bedside Potassium 5.7 mEq/L Bedside Chloride 105 mEq/L Bedside Total CO2 20 mEq/l Bedside Blood Urea Nitrogen 84 mg/dl Bedside Creatinine 2.1 mg/dl Bedside Glucose (other) 280 mg/dl Bedside Ionized Calcium ([place]) 1.22 mmol/l Bedside Glucose 196 mg/dl [~ rep ct add3]] CHEST ONE VIEW PORTABLE CLINICAL HISTORY: Shortness of breath COMPARISON STUDY: 03/24/2017 FINDINGS: The heart remains enlarged. There is a right-sided catheter the tip of which projects over the superior vena cava. There is stable hilar prominence. There is persistent interstitial thickening. This may indicate mild pulmonary vascular congestion.[ IMPRESSION: Cardiomegaly and stable mild interstitial thickening/edema. No evidence of focal pulmonary consolidation. Electronically signed by: Tima Sorensen M.D. 04/26/2017 1:44 PM Dictated Date/Time: 04/26/2017 1:42 PM The status of this report is Signed. Draft = Not yet reviewed or approved by Radiologist. Signed = Reviewed and approved by Radiologist. <AttendingPhy></AttendingPhy> <FamilyPhy>No Doctor, Assigned</FamilyPhy> < PrimaryPhy>No Doctor, Assigned</PrimaryPhy> <UnitNumber>[id number]</UnitNumber> <VisitNumber>[id number]</VisitNumber> <PatientName>LOC PADILLA</ PatientName> <DateOfBirth>1960</DateOfBirth> <Location>[facility]</Location> < ServiceDate>04/26/17</ServiceDate> <MNE>ESINDI</MNE> <OrderingPhy>Cl Zayas MD</OrderingPhy> <OrderingPhyMNE>f rep ord dr arias</OrderingPhyMNE> < DictatingPhyMNE>f rep dict dr arias</DictatingPhyMNE> <CCListMNE>f rep ct mauricioe</ CCListMNE> <AdmittingPhyMNE>f pt admit dr arias</AdmittingPhyMNE> <AttendingPhyMNE >f pt attend dr arias</AttendingPhyMNE> <ConsultingPhyMNE>f pt consult dr arias</ConsultingPhyMNE> <FamilyPhyMNE>f pt fam dr arias</FamilyPhyMNE> <OtherPhyMNE>f pt other dr arias</OtherPhyMNE> < PrimaryPhyMNE>f pt prim care dr arias</PrimaryPhyMNE> <ReferringPhyMNE>f pt referring dr arias</ReferringPhyMNE> Assessment & Plan 48-year-old female with chronic sacral decubitus ulcer, with more recent left leg ulcerations with secondary infection with methicillin sensitive Staph aureus. Patient has been intolerant of IV Dalvabancin, appeared to be improving on daptomycin. Will await further cultures before adjusting antibiotics further, continue current antibiotics and await urine culture to assess for possible urinary tract infection. Will follow.
[2017-04-26] MEDS: SODIUM CHLORIDE 0.9% IV SCH (20:45)
[2017-04-26] MEDS: DAPTOMYCIN IV SCH (20:45)
[2017-04-26] MEDS: ZOLPIDEM TARTRATE 5 MG TAB PO SCH (20:46)
[2017-04-26] MEDS: HEPARIN SOD 5000 UNIT/0.5 ML CARP SQ SCH (20:46)
[2017-04-26] MEDS: EUCERIN CR 120 GM JAR EXT SCH (20:46)
[2017-04-26] MEDS ORDERED: GLIMEPIRIDE 2 MG TAB PO SCH (21:00)
[2017-04-26] MEDS ORDERED: INSULIN GLARGINE SOLOSTAR 100 UNITS/ML 3 ML PEN SC SCH (21:00)
[2017-04-26 21:07] VITALS: PULSE 80; O2SAT 96
[2017-04-26] MEDS ORDERED: ZOLPIDEM TARTRATE 5 MG TAB PO SCH (22:00)
[2017-04-27] MEDS: ACETAMINOPHEN 325 MG TAB PO PRN ×3 (03:41→18:39)
[2017-04-27 05:59] LABS: MEAN CELL VOLUME 83.3 fL (80-100); MEAN CORPUSCULAR HEMOGLOBIN 25.9 pg (25-34); MEAN PLATELET VOLUME 10.8 fL (7.4-10.4); PLATELET COUNT 208 K/uL (130-400); RED BLOOD COUNT 3.48 M/uL (4.2-5.4); WHITE BLOOD COUNT 16.66 K/uL (4.8-10.8)
[2017-04-27 06:26] LABS: BUN/CREATININE RATIO 34.1 (10-20); CALCIUM 8.5 mg/dl (8.5-10.1); CREATININE 2.1 mg/dl (0.60-1.20); POTASSIUM 5.6 mmol/L (3.5-5.1)
[2017-04-27 08:00] VITALS: O2SAT 96
[2017-04-27] MEDS: EUCERIN CR 120 GM JAR EXT SCH ×2 (08:04→20:59)
[2017-04-27] MEDS: HEPARIN SOD 5000 UNIT/0.5 ML CARP SQ SCH ×2 (08:04→20:51)
[2017-04-27 08:05] VITALS: BP 123/57; PULSE 86; TEMP 36.5; O2SAT 94
[2017-04-27] MEDS: BUMETANIDE IV 1 MG in SYRINGE 0 ML IV SCH (08:05)
[2017-04-27] MEDS: INSULIN ASPART 100 UNITS/ML 3 ML PEN SC SCH ×4 (08:12→20:56)
[2017-04-27] MEDS: INSULIN GLARGINE SOLOSTAR 100 UNITS/ML 3 ML PEN SC SCH (08:14)
[2017-04-27] MEDS ORDERED: LEVALBUTEROL/IPRATROPIUM NEB INH PRN (09:00)
[2017-04-27] MEDS ORDERED: DAPTOmycin 500 MG VIAL IV SCH (09:00)
--- NOTE | 2017-04-27 09:56 | Pharmacy Progress Note ---
Glycemic: Assessment & Plan Date of Service Apr 27, 2017. Assessment & Plan The patient is currently receiving 6 units of insulin per day. BSGs ranging 180 - 260 mg/dl over the past 24hrs. * Basal insulin: Lantus 10 or 20 units every qHS - patient refused * Correctional Insulin: Novolog Correction per scale ACHS Goal Range: Low 110 mg/dL - High 140 mg/dL Correction Factor: 20 mg/dL/unit * Prandial insulin: Per carb ratio of 1 unit per 7 grams CHO consumed - patient refused with dinner ASSESSMENT: * Patient refusing insulin doses so BSGs currently not controlled * Spoke with the nurse this AM to see if the patient would take 10 units of Lantus. Patient did not seem amenable to this so I will trial a lower dose PLAN FOR INPATIENT GLYCEMIC CONTROL: * Change Lantus to 5 units qAM * Continue Novolog * Goal 110-140 * CF 20 * CR 7 Pharmacy will continue to monitor patient daily and write orders per [facility] inpatient glycemic control protocol. Thanks. * Please note that the plan above was derived based on current level of insulin resistance and hospital stress. These recommendations are appropriate for inpatient admission only. Plan of care upon discharge will need to be reassessed to avoid potential outpatient hypo/hyperglycemia.
[2017-04-27 16:01] VITALS: BP 166/73; PULSE 85; TEMP 36.5; O2SAT 95
--- NOTE | 2017-04-27 16:45 | Progress Note ---
Subjective Date of Service: Apr 27, 2017. Subjective Pt evaluation today including: conversation w/ patient, physical exam, lab review, conversation w/ applications sales consultant, review of inpatient medication list Pain: no pain today PO Intake: adequate Voiding: rodriguez catheter in place patient breathing well, no chest pain still with some edema in legs making excellent urine on Bumex appreciate note from Dr. Brown, continue Daptomycin Problem List Medical Problems: (1) Acute renal disease Status: Acute (2) ELIZABETH (acute kidney injury) Status: Acute (3) Cellulitis of both lower extremities Status: Acute (4) CHF (congestive heart failure) Status: Acute (5) CHF (congestive heart failure) Status: Acute (6) Dehydration Status: Acute (7) Hypoxia Status: Acute (8) Pickwickian syndrome Status: Acute (9) Pneumonia Status: Acute (10) Respiratory failure Status: Acute (11) Sacral decubitus ulcer, stage III Status: Acute (12) UTI (urinary tract infection) Status: Acute Review of Systems Constitutional: + weakness Cardiac: + edema All Other Systems: Reviewed and Negative Medications Current Inpatient Medications Medications (Trade) Dose Ordered Sig/Bruno Route Start Time Stop Time Status Last Admin Dose Admin Heparin Sodium (Porcine) (Heparin Sq 5000 Unit/0.5ml) 5,000 unit Q12 SQ 04/26/17 21:00 05/26/17 20:59 Acetaminophen (Tylenol Tab) 650 mg Q4H PRN PO 04/26/17 15:00 05/26/17 14:59 04/27/17 14:29 650 MG Al Hydrox/Mg Hydrox/Simethicone (Maalox Max Susp) 15 ml Q4H PRN PO 04/26/17 15:00 05/26/17 14:59 Magnesium Hydroxide (Milk Of Magnesia Susp) 30 ml Q12H PRN PO 04/26/17 15:00 05/26/17 14:59 Ondansetron HCl (Zofran Inj) 4 mg Q6H PRN IV 04/26/17 15:00 05/26/17 14:59 Nitroglycerin (Nitrostat Tab) 0.4 mg UD PRN SL 04/26/17 15:00 05/26/17 14:59 Polyethylene (Miralax Powder Packet) 17 gm DAILY PRN PO 04/26/17 15:00 05/26/17 14:59 Bumetanide 1 mg/ Syringe 4 ml @ 4 mls/min DAILY@0900 IV 04/27/17 09:00 05/27/17 08:59 04/27/17 08:05 4 MLS/MIN Ceftriaxone Sodium 1 gm/ Dextrose 50 ml @ 100 mls/hr Q24H IV 04/26/17 18:00 05/01/17 17:59 04/26/17 18:15 100 MLS/HR Multi-Ingredient Ointment (Eucerin Unscented Cr) 1 appln BID EXT 04/26/17 21:00 05/26/17 20:59 Oxycodone HCl (Roxicodone Immediate Rel Tab) 5 mg Q8H PRN PO 04/26/17 15:00 05/10/17 14:59 Insulin Aspart (novoLOG ASPART) SLIDING SCALE G... ACHS SC 04/26/17 16:00 05/26/17 15:59 04/27/17 08:12 8 UNITS Miscellaneous Information (Consult Glycemic Management Pharmacy) 1 ea UD PRN N/A 04/26/17 15:24 05/26/17 15:23 Daptomycin 440 mg/ Sodium Chloride 58.8 ml @ 120 mls/hr Q24H IV 04/26/17 20:00 05/06/17 19:59 04/26/17 20:45 120 MLS/HR Heparin Sodium (Porcine) (Heparin 10 Unit/ ml 5 ml Flush) 5 ml PRN PRN FLUSH 04/26/17 20:00 05/26/17 19:59 04/27/17 05:11 5 ML Zolpidem Tartrate (Ambien Tab) 5 mg HS PO 04/26/17 21:00 05/26/17 20:59 04/26/17 20:46 5 MG Insulin Glargine (Lantus Solostar Pen) 5 units QAM SC 04/27/17 09:00 05/27/17 08:59 04/27/17 08:14 5 UNITS Objective Vital Signs Date Time Temp Pulse Resp B/P (MAP) Pulse Ox O2 Delivery O2 Flow Rate FiO2 04/27/17 16:01 36.5 85 20 166/73 (104) 95 Nasal Cannula 2.0 04/27/17 08:05 36.5 86 18 123/57 (79) 94 04/27/17 08:00 96 Nasal Cannula 3.0 04/27/17 00:00 Nasal Cannula 3.0 04/26/17 21:07 80 96 3.0 04/26/17 17:00 36.8 95 18 146/72 91 Nasal Cannula 3.0 Physical Exam General Appearance: no apparent distress, + obese Eyes: normal inspection, EOMI, sclerae normal Neck: supple, no adenopathy, no JVD, trachea midline Respiratory/Chest: chest non-tender, lungs clear, normal breath sounds, no respiratory distress, no accessory muscle use Cardiovascular: regular rate, rhythm, no gallop, no JVD, no murmur Abdomen: normal bowel sounds, non tender, soft, no organomegaly Extremities: normal range of motion, non-tender, normal inspection, no calf tenderness, pelvis stable, + pedal edema Neurologic/Psychiatric: it risk and assurance senior manager II-XII nml as tested, no motor/sensory deficits, alert, normal mood/affect, oriented x 3 Skin: normal color, warm/dry, + pertinent finding (chronic venous stasis changes in legs) Lymphatic: no adenopathy Laboratory Results Last 24 Hours Test 04/26/17 17:07 04/26/17 19:57 04/26/17 21:00 04/27/17 05:14 Bedside Glucose 196 mg/dl 260 mg/dl Creatine Kinase MB Ratio White Blood Count 16.66 K/uL Red Blood Count 3.48 M/uL Hemoglobin 9.0 g/dL Hematocrit 29.0 % Mean Corpuscular Volume 83.3 fL Mean Corpuscular Hemoglobin 25.9 pg Mean Corpuscular Hemoglobin Concent 31.0 g/dl RDW Standard Deviation 47.5 fL RDW Coefficient of Variation 15.4 % Platelet Count 208 K/uL Mean Platelet Volume 10.8 fL Sodium Level 134 mmol/L Potassium Level 5.6 mmol/L Chloride Level 105 mmol/L Carbon Dioxide Level 22 mmol/L Anion Gap 7.0 mmol/L Blood Urea Nitrogen 72 mg/dl Creatinine 2.10 mg/dl Est Creatinine Clear Calc Drug Dose 36.7 ml/min Estimated GFR () 29.3 Estimated GFR (Non- 25.3 BUN/Creatinine Ratio 34.1 Random Glucose 182 mg/dl Calcium Level 8.5 mg/dl Test 04/27/17 07:26 04/27/17 11:37 Bedside Glucose 180 mg/dl 152 mg/dl Assessment and Plan Patient is a 56 y/o female, with PMHx of COPD on chronic 3L O2, cor pulmonale, R -sided CHF, T2DM, chronic R leg ulcer, sacral ulcer, CKD stage III-IV, chronic anemia, indwelling Rodriguez catheter, h/o DVT w/ IVC filter placement, who presented to the ED per Dr. Brown's recommendations due to kidney function. Decompensated R CHF: - treat with Bumex 1mg IV BID, responding well, -3000cc - follow weight - Hold Aldactone due to hyperkalemia Mild hyperkalemia at 5.7: holding Aldactone, 5.6 today, should continue to improve with Bumex R leg ulcer/sacral ulcer: - Consult ID and wound care - Dr. Brown recommends continuing Daptomycin for now - BCx pending UTI secondary to chronic Rodriguez: - IV Rocephin pending UCx due to being on Daptomycin at admission - Change Rodriguez catheter COPD without exacerbation: - O2 protocol, wean as tolerated- wears 3L O2 11/03 CKD stage III-IV, baseline Cr 1.6-2.0: Cr 2.0 again Chronic anemia, ?secondary to CKD- STABLE: Follow CBC T2DM, HgbA1C 8.7% on 03/25: - Continue Glimepiride 4 mg BID - BSG ACHS and sliding insulin scale - Glycemic control consultation Tobacco Abuse: Smoking cessation counselling DVT prophylaxis: Heparin SQ BID Code Status: LEVEL I, FULL Dispo: From home, lives alone; has [facility]- social service manager and PT/OT consulted
[2017-04-27] MEDS: CEFTRIAXONE SOD INJ 1 GM in DEXTROSE 5% ADD-VANTAGE 50ML 50 ML IV SCH (18:40)
[2017-04-27] MEDS: DAPTOMYCIN IV SCH (20:45)
[2017-04-27] MEDS: SODIUM CHLORIDE 0.9% IV SCH (20:45)
[2017-04-27] MEDS: ZOLPIDEM TARTRATE 5 MG TAB PO SCH (20:51)
[2017-04-27 22:12] VITALS: BP 109/73; PULSE 78; TEMP 36.6; O2SAT 91
--- NOTE | 2017-04-28 01:57 | Infectious Disease Progress Nt ---
Progress Note Date of Service Apr 27, 2017. Subjective Pt evaluation today including: conversation w/ patient, physical exam, chart review, lab review, review of studies, conversation w/ research consultant, review of inpatient medication list Patient feeling better today. Fever and chills have resolved. Blood cultures now growing gram-negative bacilli. Appears to be tolerating antibiotics without apparent difficulty. All Other Systems: Reviewed and Negative Medications Current Inpatient Medications Medications (Trade) Dose Ordered Sig/Bruno Route Start Time Stop Time Status Last Admin Dose Admin Heparin Sodium (Porcine) (Heparin Sq 5000 Unit/0.5ml) 5,000 unit Q12 SQ 04/26/17 21:00 05/26/17 20:59 Acetaminophen (Tylenol Tab) 650 mg Q4H PRN PO 04/26/17 15:00 05/26/17 14:59 04/27/17 18:39 650 MG Al Hydrox/Mg Hydrox/Simethicone (Maalox Max Susp) 15 ml Q4H PRN PO 04/26/17 15:00 05/26/17 14:59 Magnesium Hydroxide (Milk Of Magnesia Susp) 30 ml Q12H PRN PO 04/26/17 15:00 05/26/17 14:59 Ondansetron HCl (Zofran Inj) 4 mg Q6H PRN IV 04/26/17 15:00 05/26/17 14:59 Nitroglycerin (Nitrostat Tab) 0.4 mg UD PRN SL 04/26/17 15:00 05/26/17 14:59 Polyethylene (Miralax Powder Packet) 17 gm DAILY PRN PO 04/26/17 15:00 05/26/17 14:59 Bumetanide 1 mg/ Syringe 4 ml @ 4 mls/min DAILY@0900 IV 04/27/17 09:00 05/27/17 08:59 04/27/17 08:05 4 MLS/MIN Ceftriaxone Sodium 1 gm/ Dextrose 50 ml @ 100 mls/hr Q24H IV 04/26/17 18:00 05/01/17 17:59 04/27/17 18:40 100 MLS/HR Multi-Ingredient Ointment (Eucerin Unscented Cr) 1 appln BID EXT 04/26/17 21:00 05/26/17 20:59 04/27/17 20:59 1 APPLN Oxycodone HCl (Roxicodone Immediate Rel Tab) 5 mg Q8H PRN PO 04/26/17 15:00 05/10/17 14:59 Insulin Aspart (novoLOG ASPART) SLIDING SCALE G... ACHS SC 04/26/17 16:00 05/26/17 15:59 04/27/17 20:56 3 UNITS Miscellaneous Information (Consult Glycemic Management Pharmacy) 1 ea UD PRN N/A 04/26/17 15:24 05/26/17 15:23 Daptomycin 440 mg/ Sodium Chloride 58.8 ml @ 120 mls/hr Q24H IV 04/26/17 20:00 05/06/17 19:59 04/27/17 20:45 120 MLS/HR Heparin Sodium (Porcine) (Heparin 10 Unit/ ml 5 ml Flush) 5 ml PRN PRN FLUSH 04/26/17 20:00 05/26/17 19:59 04/27/17 21:41 5 ML Zolpidem Tartrate (Ambien Tab) 5 mg HS PO 04/26/17 21:00 05/26/17 20:59 04/27/17 20:51 5 MG Insulin Glargine (Lantus Solostar Pen) 5 units QAM SC 04/27/17 09:00 05/27/17 08:59 04/27/17 08:14 5 UNITS Objective Vital Signs Date Time Temp Pulse Resp B/P (MAP) Pulse Ox O2 Delivery O2 Flow Rate FiO2 04/27/17 23:31 Nasal Cannula 4.0 04/27/17 22:12 36.6 78 20 109/73 (85) 91 2.0 04/27/17 16:01 36.5 85 20 166/73 (104) 95 Nasal Cannula 2.0 04/27/17 16:00 Nasal Cannula 2.0 04/27/17 08:05 36.5 86 18 123/57 (79) 94 04/27/17 08:00 96 Nasal Cannula 3.0 Physical Exam General Appearance: WD/WN, no apparent distress, + obese Eyes: normal inspection, sclerae normal ENT: normal ENT inspection, hearing grossly normal, pharynx normal Neck: supple, no adenopathy, thyroid normal, trachea midline Respiratory/Chest: chest non-tender, lungs clear, normal breath sounds, no respiratory distress Cardiovascular: regular rate, rhythm, no gallop, no murmur Abdomen: normal bowel sounds, non tender, soft, no organomegaly Extremities: non-tender, no calf tenderness Neurologic/Psychiatric: alert, oriented x 3 Skin: normal color, no rash, + pertinent finding ( Right leg ulceration unchanged) Lymphatic: no adenopathy Laboratory Results RUN DATE: 04/27/17 [facility] PAGE 1 RUN TIME: 1410 Specimen Inquiry PATIENT: LOC PADILLA LOC: [id number] U # : [id number] AGE/SX: 56/F ROOM: [facility] REG : 04/26/[address]: Bill Richey D.ORene : 1960 BED: 1 DIS : STATUS: ADM IN TLOC: SPEC #: [id number] DINO: 04/26/17 STATUS: RES REMonet #: [id number] RECD: 04/26/17-[address]: Vidya Conklin, RONDA SOURCE: BLOOD ENTR: 04/26/17-[address] [facility] [address]: Jake Brown MD [facility]: Cl Zayas MD Doctor, Lucia Gordillo DO ORDERED: BLOOD CULTURE Procedure Result Verified Site BLD CULT Preliminary 04/27/17-1410 Organism 1 GRAM NEGATIVE BACILLI SENS SENSITIVITY TO FOLLOW Phoned Positive Blood Culture Gram Stain Report to MERE PALENCIA on 04/27/17 At 0608 By [facility]. Results were verbalized back to [facility]. Last 24 Hours Test 04/27/17 05:14 04/27/17 07:26 04/27/17 11:37 04/27/17 16:33 White Blood Count 16.66 K/uL Red Blood Count 3.48 M/uL Hemoglobin 9.0 g/dL Hematocrit 29.0 % Mean Corpuscular Volume 83.3 fL Mean Corpuscular Hemoglobin 25.9 pg Mean Corpuscular Hemoglobin Concent 31.0 g/dl RDW Standard Deviation 47.5 fL RDW Coefficient of Variation 15.4 % Platelet Count 208 K/uL Mean Platelet Volume 10.8 fL Sodium Level 134 mmol/L Potassium Level 5.6 mmol/L Chloride Level 105 mmol/L Carbon Dioxide Level 22 mmol/L Anion Gap 7.0 mmol/L Blood Urea Nitrogen 72 mg/dl Creatinine 2.10 mg/dl Est Creatinine Clear Calc Drug Dose 36.7 ml/min Estimated GFR () 29.3 Estimated GFR (Non- 25.3 BUN/Creatinine Ratio 34.1 Random Glucose 182 mg/dl Calcium Level 8.5 mg/dl Bedside Glucose 180 mg/dl 152 mg/dl 142 mg/dl Test 04/27/17 20:08 Bedside Glucose 230 mg/dl Assessment and Plan 48-year-old female with chronic sacral decubitus ulcer, with more recent left leg ulcerations with secondary infection with methicillin sensitive Staph aureus , now with gram-negative bacteremia likely from urinary tract source. Appears to be improving on ceftriaxone, so will continue this pending final identification and sensitivities. I will adjust antibiotics once these are available. Will follow.
[2017-04-28] MEDS: OXYCODONE HCL IR 5 MG TAB (IMMEDIATE RELEASE) PO PRN ×2 (02:19→10:57)
[2017-04-28 07:47] VITALS: BP 123/76; PULSE 85; TEMP 36.6; O2SAT 92
[2017-04-28 08:03] LABS: HEMATOCRIT 29.4 % (37-47); MEAN CELL VOLUME 83.1 fL (80-100); MEAN CORPUSCULAR HEMOGLOBIN 26.3 pg (25-34); MEAN CORPUSCULAR HGB CONC 31.6 g/dl (32-36); MEAN PLATELET VOLUME 10.4 fL (7.4-10.4); PLATELET COUNT 211 K/uL (130-400); RED BLOOD COUNT 3.54 M/uL (4.2-5.4); WHITE BLOOD COUNT 9.18 K/uL (4.8-10.8)
[2017-04-28] MEDS: EUCERIN CR 120 GM JAR EXT SCH ×2 (08:19→21:07)
[2017-04-28] MEDS: HEPARIN SOD 5000 UNIT/0.5 ML CARP SQ SCH ×2 (08:20→21:00)
[2017-04-28] MEDS: BUMETANIDE IV 1 MG in SYRINGE 0 ML IV SCH (08:20)
[2017-04-28] MEDS: INSULIN ASPART 100 UNITS/ML 3 ML PEN SC SCH (08:26)
[2017-04-28] MEDS: INSULIN GLARGINE SOLOSTAR 100 UNITS/ML 3 ML PEN SC SCH (08:26)
[2017-04-28 08:42] LABS: BUN/CREATININE RATIO 36.1 (10-20); CALCIUM 8.6 mg/dl (8.5-10.1); CREATININE 1.9 mg/dl (0.60-1.20); POTASSIUM 5.5 mmol/L (3.5-5.1)
[2017-04-28 09:18] VITALS: BP 126/70; PULSE 88; O2SAT 96
--- NOTE | 2017-04-28 11:09 | Pharmacy Progress Note ---
Pharmacy Glycemic Sign Off Nt Date of Service Apr 28, 2017. Assessment & Plan ASSESSMENT: * Pharmacy was consulted by Vidya Conklin on 04/26/17 for glycemic control and to write orders per [facility] inpatient glycemic control protocol. * Major changes made by pharmacy to antidiabetic regimen include: * Amaryl placed on hold * Basal/bolus insulin initiated * Patient has been receiving ~15 units of insulin per day and refusing most insulin doses PLAN FOR INPATIENT GLYCEMIC CONTROL: * D/C all insulin orders * Dr. Richey to see patient and resume Amaryl if patient tolerating po * Pharmacy is signing off of glycemic consult and will no longer be making adjustments to inpatient regimen. Please feel free to re-consult if needed. Thank you.
--- NOTE | 2017-04-28 14:26 | Progress Note ---
Subjective Date of Service: Apr 28, 2017. Subjective Pt evaluation today including: conversation w/ patient, physical exam, lab review, review of inpatient medication list Pain: chronic pain with legs and sacrum PO Intake: adequate Voiding: rodriguez catheter in place reviewed labs, Cr down to 1.9, baseline, K slightly high at 5.5 despite Bumex - 4500cc since admission, less edema patient eating well refusing glucose checks and Novolog per RN Problem List Medical Problems: (1) Acute renal disease Status: Acute (2) ELIZABETH (acute kidney injury) Status: Acute (3) Cellulitis of both lower extremities Status: Acute (4) CHF (congestive heart failure) Status: Acute (5) CHF (congestive heart failure) Status: Acute (6) Dehydration Status: Acute (7) Hypoxia Status: Acute (8) Pickwickian syndrome Status: Acute (9) Pneumonia Status: Acute (10) Respiratory failure Status: Acute (11) Sacral decubitus ulcer, stage III Status: Acute (12) UTI (urinary tract infection) Status: Acute Review of Systems Constitutional: + weakness, + fatigue Cardiac: + edema Neurologic: + weakness Skin: + problem reported (chronic wounds, tender) All Other Systems: Reviewed and Negative Medications Current Inpatient Medications Medications (Trade) Dose Ordered Sig/Bruno Route Start Time Stop Time Status Last Admin Dose Admin Heparin Sodium (Porcine) (Heparin Sq 5000 Unit/0.5ml) 5,000 unit Q12 SQ 04/26/17 21:00 05/26/17 20:59 Acetaminophen (Tylenol Tab) 650 mg Q4H PRN PO 04/26/17 15:00 05/26/17 14:59 04/27/17 18:39 650 MG Al Hydrox/Mg Hydrox/Simethicone (Maalox Max Susp) 15 ml Q4H PRN PO 04/26/17 15:00 05/26/17 14:59 Magnesium Hydroxide (Milk Of Magnesia Susp) 30 ml Q12H PRN PO 04/26/17 15:00 05/26/17 14:59 Ondansetron HCl (Zofran Inj) 4 mg Q6H PRN IV 04/26/17 15:00 05/26/17 14:59 Nitroglycerin (Nitrostat Tab) 0.4 mg UD PRN SL 04/26/17 15:00 05/26/17 14:59 Polyethylene (Miralax Powder Packet) 17 gm DAILY PRN PO 04/26/17 15:00 05/26/17 14:59 Bumetanide 1 mg/ Syringe 4 ml @ 4 mls/min DAILY@0900 IV 04/27/17 09:00 05/27/17 08:59 04/28/17 08:20 4 MLS/MIN Ceftriaxone Sodium 1 gm/ Dextrose 50 ml @ 100 mls/hr Q24H IV 04/26/17 18:00 05/01/17 17:59 04/27/17 18:40 100 MLS/HR Multi-Ingredient Ointment (Eucerin Unscented Cr) 1 appln BID EXT 04/26/17 21:00 05/26/17 20:59 04/28/17 08:19 1 APPLN Daptomycin 440 mg/ Sodium Chloride 58.8 ml @ 120 mls/hr Q24H IV 04/26/17 20:00 05/06/17 19:59 04/27/17 20:45 120 MLS/HR Heparin Sodium (Porcine) (Heparin 10 Unit/ ml 5 ml Flush) 5 ml PRN PRN FLUSH 04/26/17 20:00 05/26/17 19:59 04/27/17 21:41 5 ML Zolpidem Tartrate (Ambien Tab) 5 mg HS PO 04/26/17 21:00 05/26/17 20:59 04/27/17 20:51 5 MG Oxycodone HCl (Roxicodone Immediate Rel Tab) 10 mg Q8 PRN PO 04/28/17 13:15 05/12/17 13:14 Objective Vital Signs Date Time Temp Pulse Resp B/P (MAP) Pulse Ox O2 Delivery O2 Flow Rate FiO2 04/28/17 09:18 88 96 04/28/17 08:00 Nasal Cannula 3.0 04/28/17 07:47 36.6 85 20 123/76 (92) 92 2.0 04/27/17 23:31 Nasal Cannula 4.0 04/27/17 22:12 36.6 78 20 109/73 (85) 91 2.0 04/27/17 20:58 3.0 04/27/17 16:01 36.5 85 20 166/73 (104) 95 Nasal Cannula 2.0 04/27/17 16:00 Nasal Cannula 2.0 Physical Exam General Appearance: no apparent distress, + obese Eyes: normal inspection, EOMI, sclerae normal ENT: normal ENT inspection, hearing grossly normal, pharynx normal Neck: supple, no adenopathy, no JVD, trachea midline Respiratory/Chest: chest non-tender, lungs clear, normal breath sounds, no respiratory distress, no accessory muscle use Cardiovascular: regular rate, rhythm, no gallop, no JVD, no murmur Abdomen: normal bowel sounds, non tender, soft, no organomegaly Extremities: normal range of motion, non-tender, normal inspection, no calf tenderness, pelvis stable, + pedal edema Neurologic/Psychiatric: executive office manager II-XII nml as tested, alert, normal mood/affect, oriented x 3, + motor weakness Skin: warm/dry, no rash, + pertinent finding (venous stasis changes) Laboratory Results Last 24 Hours Test 04/27/17 16:33 04/27/17 20:08 04/28/17 07:23 04/28/17 07:54 Bedside Glucose 142 mg/dl 230 mg/dl 209 mg/dl White Blood Count 9.18 K/uL Red Blood Count 3.54 M/uL Hemoglobin 9.3 g/dL Hematocrit 29.4 % Mean Corpuscular Volume 83.1 fL Mean Corpuscular Hemoglobin 26.3 pg Mean Corpuscular Hemoglobin Concent 31.6 g/dl RDW Standard Deviation 46.4 fL RDW Coefficient of Variation 15.2 % Platelet Count 211 K/uL Mean Platelet Volume 10.4 fL Sodium Level 137 mmol/L Potassium Level 5.5 mmol/L Chloride Level 106 mmol/L Carbon Dioxide Level 23 mmol/L Anion Gap 8.0 mmol/L Blood Urea Nitrogen 69 mg/dl Creatinine 1.90 mg/dl Est Creatinine Clear Calc Drug Dose 40.5 ml/min Estimated GFR () 33.1 Estimated GFR (Non- 28.6 BUN/Creatinine Ratio 36.1 Random Glucose 208 mg/dl Calcium Level 8.6 mg/dl Test 04/28/17 11:35 Bedside Glucose 156 mg/dl Assessment and Plan Patient is a 56 y/o female, with PMHx of COPD on chronic 3L O2, cor pulmonale, R -sided CHF, T2DM, chronic R leg ulcer, sacral ulcer, CKD stage III-IV, chronic anemia, indwelling Rodriguez catheter, h/o DVT w/ IVC filter placement, who presented to the ED per Dr. Brown's recommendations due to kidney function. Decompensated R CHF: - continue Bumex 1mg IV BID, responding well, -4500cc, less edema - follow weight - Hold Aldactone due to hyperkalemia Mild hyperkalemia: slowly going down at 5.5 with Bumex - no EKG changes R leg ulcer/sacral ulcer: - Consult ID and wound care - Dr. Brown recommends continuing Daptomycin - BCx growing Klebsiella, suspect due to UTI UTI secondary to chronic Rodriguez: - continue IV Rocephin, blood culture growing Klebsiella, urine culture pending COPD without exacerbation: - O2 protocol, wean as tolerated- wears 3L O2 11/03 CKD stage III-IV, baseline Cr 1.6-2.0: Cr 1.9 Chronic anemia, ?secondary to CKD- STABLE: Follow CBC T2DM, HgbA1C 8.7% on 03/25: - Continue Glimepiride 4 mg BID - BSG BID Tobacco Abuse: Smoking cessation counselling DVT prophylaxis: Heparin SQ BID Code Status: LEVEL I, FULL Dispo: From home, lives alone; has [facility]- social science instructor and PT/OT consulted likely back to home once medically stable
[2017-04-28 16:04] VITALS: BP 126/73; PULSE 85; TEMP 36.4; O2SAT 94
[2017-04-28] MEDS: CEFTRIAXONE SOD INJ 1 GM in DEXTROSE 5% ADD-VANTAGE 50ML 50 ML IV SCH (18:37)
[2017-04-28] MEDS: SODIUM CHLORIDE 0.9% IV SCH (19:45)
[2017-04-28] MEDS: DAPTOMYCIN IV SCH (19:45)
[2017-04-28] MEDS: ACETAMINOPHEN 325 MG TAB PO PRN (21:04)
[2017-04-28] MEDS: ZOLPIDEM TARTRATE 5 MG TAB PO SCH (21:58)
[2017-04-29] VITALS (9 sets, daily range): BP systolic 94–155; BP diastolic 54–78; PULSE 63–92; TEMP 36.4–36.8; O2SAT 91–94
[2017-04-29] MEDS: OXYCODONE HCL IR 5 MG TAB (IMMEDIATE RELEASE) PO PRN ×2 (01:43→13:34)
[2017-04-29 07:47] LABS: HEMATOCRIT 30.7 % (37-47); MEAN CELL VOLUME 84.1 fL (80-100); MEAN CORPUSCULAR HEMOGLOBIN 25.8 pg (25-34); MEAN CORPUSCULAR HGB CONC 30.6 g/dl (32-36); MEAN PLATELET VOLUME 9.8 fL (7.4-10.4); PLATELET COUNT 214 K/uL (130-400); RED BLOOD COUNT 3.65 M/uL (4.2-5.4); WHITE BLOOD COUNT 8.43 K/uL (4.8-10.8)
[2017-04-29] MEDS: HEPARIN SOD 5000 UNIT/0.5 ML CARP SQ SCH ×2 (08:09→19:51)
[2017-04-29] MEDS: BUMETANIDE IV 1 MG in SYRINGE 0 ML IV SCH (08:13)
[2017-04-29 08:17] LABS: BUN/CREATININE RATIO 28.8 (10-20); CALCIUM 8.5 mg/dl (8.5-10.1); CREATININE 2.6 mg/dl (0.60-1.20); POTASSIUM 5.9 mmol/L (3.5-5.1)
--- NOTE | 2017-04-29 09:16 | Clinical Documentation Query ---
CLINICAL DOCUMENTATION QUERY 56 year old female who presents to the Emergency Room after being referred for an elevated BUN In your clinical opinion is this patient being managed for: ( ) Acute on chronic RV systolic heart failure in setting of Pickwickian syndrome treated with IV Bumex. ( ) Not Agree ( ) Other explanation of clinical findings (Please Explain) ( ) Unable to determine (Please Define) ( ) Need to Discuss The medical record reflects the following clinical findings, treatment, and risk factors. Clinical Indicators: right sided CHF per H&P and daily progress notes, SOB, increased edema. Echo from 05/21/15 showed the right ventricle is severely dilated. The right ventricular systolic function is moderate to severely reduced. Treatment: IV Bumex, telemetry, strict I/O's, low sodium diet, daily weights Risk Factors: Age, COPD, morbid obesity/pickwickian Please clarify and document your clinical opinion in the progress notes and discharge summary. Terms such as "probable", "suspected", "likely", "questionable", "possible", or "still to be ruled out" are acceptable. IF IN AGREEMENT, DOCUMENT ABOVE DIAGNOSTIC STATEMENT IN DAILY PROGRESS NOTES AND DISCHARGE SUMMARY. This document is not part of the patient's record. Thank You, Joshua Rosales, RN [phone]
[2017-04-29] MEDS: EUCERIN CR 120 GM JAR EXT SCH ×2 (10:00→21:00)
[2017-04-29] MEDS ORDERED: SODIUM POLYST. SULF SUSP 15G/60ML PO ONE ×3 (10:45→17:30)
--- NOTE | 2017-04-29 13:43 | Hospitalist Progress Note ---
Hospitalist Progress Note Date of Service Apr 29, 2017. (Vidya Conklin ., PA-C) Subjective Pt evaluation today including: conversation w/ patient, physical exam, lab review, review of studies, review of inpatient medication list Voiding: rodriguez catheter in place (draining yellow/cloudy urine ) Patient states she is feeling well. Hyperkalemia Refusing Kayexalate- states she does not want to experience diarrhea due to sacral ulcer and fear of worsening infection Myself and Dr. Giraldo discussed in length the importance of taking Kayexalate and patient states "I will think about it." Transferring to [facility] for cardiac monitoring Lower extremity edema has improved. Patient denies any fever, chills, sweats, lightheadedness, dizziness, vision changes, CP, palpitations, SOB, wheezing, cough, abdominal pain, nausea, vomiting, diarrhea, urinary symptoms, melena, numbness/tingling, weakness, muscle/joint pain, anxiety/depression, active bleeding, or new skin discoloration/changes. (Vidya Conklin ., PA-C) Medications Current Inpatient Medications Medications (Trade) Dose Ordered Sig/Bruno Route Start Time Stop Time Status Last Admin Dose Admin Heparin Sodium (Porcine) (Heparin Sq 5000 Unit/0.5ml) 5,000 unit Q12 SQ 04/26/17 21:00 05/26/17 20:59 Acetaminophen (Tylenol Tab) 650 mg Q4H PRN PO 04/26/17 15:00 05/26/17 14:59 04/28/17 21:04 650 MG Al Hydrox/Mg Hydrox/Simethicone (Maalox Max Susp) 15 ml Q4H PRN PO 04/26/17 15:00 05/26/17 14:59 Magnesium Hydroxide (Milk Of Magnesia Susp) 30 ml Q12H PRN PO 04/26/17 15:00 05/26/17 14:59 Ondansetron HCl (Zofran Inj) 4 mg Q6H PRN IV 04/26/17 15:00 05/26/17 14:59 Nitroglycerin (Nitrostat Tab) 0.4 mg UD PRN SL 04/26/17 15:00 05/26/17 14:59 Polyethylene (Miralax Powder Packet) 17 gm DAILY PRN PO 04/26/17 15:00 05/26/17 14:59 Bumetanide 1 mg/ Syringe 4 ml @ 4 mls/min DAILY@0900 IV 04/27/17 09:00 05/27/17 08:59 Future Hold 04/29/17 08:13 4 MLS/MIN Ceftriaxone Sodium 1 gm/ Dextrose 50 ml @ 100 mls/hr Q24H IV 04/26/17 18:00 05/01/17 17:59 04/28/17 18:37 100 MLS/HR Multi-Ingredient Ointment (Eucerin Unscented Cr) 1 appln BID EXT 04/26/17 21:00 05/26/17 20:59 04/29/17 10:00 1 APPLN Daptomycin 440 mg/ Sodium Chloride 58.8 ml @ 120 mls/hr Q24H IV 04/26/17 20:00 05/06/17 19:59 04/28/17 19:45 120 MLS/HR Heparin Sodium (Porcine) (Heparin 10 Unit/ ml 5 ml Flush) 5 ml PRN PRN FLUSH 04/26/17 20:00 05/26/17 19:59 04/29/17 07:32 5 ML Zolpidem Tartrate (Ambien Tab) 5 mg HS PO 04/26/17 21:00 05/26/17 20:59 04/28/17 21:58 5 MG Oxycodone HCl (Roxicodone Immediate Rel Tab) 10 mg Q8 PRN PO 04/28/17 13:15 05/12/17 13:14 04/29/17 01:43 10 MG Sodium Polystyrene Sulfonate (Kayexalate Susp) 15 gm 1600 ONCE PO 04/29/17 16:00 04/29/17 16:01 (Vidya Conklin, RONDA) Objective Vital Signs Date Time Temp Pulse Resp B/P (MAP) Pulse Ox O2 Delivery O2 Flow Rate FiO2 04/29/17 10:53 92 Nasal Cannula 4.0 04/29/17 10:47 36.5 83 22 122/78 (93) 92 Nasal Cannula 4.0 04/29/17 08:00 92 Nasal Cannula 3.0 04/29/17 07:47 36.4 85 20 155/73 (100) 92 04/29/17 00:31 36.4 63 16 94/54 (67) 94 4.0 63 04/28/17 23:27 Nasal Cannula 4.0 Humidified Oxygen 04/28/17 16:04 36.4 85 17 126/73 (90) 94 Nasal Cannula 3.0 04/28/17 16:00 Nasal Cannula 3.0 (Vidya Conklin PA-C) Physical Exam General Appearance: no apparent distress, + obese, + pertinent finding (4L o2 NC ) Eyes: normal inspection, PERRL ENT: hearing grossly normal Neck: supple Respiratory/Chest: no respiratory distress, no accessory muscle use, + decreased breath sounds Cardiovascular: regular rate, rhythm Abdomen: normal bowel sounds, non tender, soft Extremities: + swelling (trace pitting edema to bilateral lower extremities ), + pertinent finding (chronic venous stasis changes to bilateral lower extremitis ) Neurologic/Psychiatric: alert, oriented x 3 Skin: normal color, warm/dry, no rash (Vidya Conklin ., AUSTIN-C) Laboratory Results Last 24 Hours Test 04/29/17 07:25 04/29/17 07:42 White Blood Count 8.43 K/uL Red Blood Count 3.65 M/uL Hemoglobin 9.4 g/dL Hematocrit 30.7 % Mean Corpuscular Volume 84.1 fL Mean Corpuscular Hemoglobin 25.8 pg Mean Corpuscular Hemoglobin Concent 30.6 g/dl RDW Standard Deviation 47.6 fL RDW Coefficient of Variation 15.3 % Platelet Count 214 K/uL Mean Platelet Volume 9.8 fL Sodium Level 132 mmol/L Potassium Level 5.9 mmol/L Chloride Level 103 mmol/L Carbon Dioxide Level 23 mmol/L Anion Gap 6.0 mmol/L Blood Urea Nitrogen 75 mg/dl Creatinine 2.60 mg/dl Est Creatinine Clear Calc Drug Dose 30.2 ml/min Estimated GFR () 22.7 Estimated GFR (Non- 19.5 BUN/Creatinine Ratio 28.8 Random Glucose 177 mg/dl Calcium Level 8.5 mg/dl Bedside Glucose 183 mg/dl (Vidya Conklin PA-C) Assessment and Plan Patient is a 56 y/o female, with PMHx of COPD on chronic 3L O2, cor pulmonale, R -sided CHF, T2DM, chronic R leg ulcer, sacral ulcer, CKD stage III-IV, chronic anemia, indwelling Rodriguez catheter, h/o DVT w/ IVC filter placement, who presented to the ED per Dr. Brown's recommendations due to kidney function. Decompensated R CHF- IMPROVED: - Admit to med/surg - IV 1 mg Bumex daily; hold Bumex 0.5 mg daily -- Treated 04/26-04/29--> d/c due to Cr 2.6 - Monitor I&O's and daily weights - Hold Aldactone due to hyperkalemia Hyperkalemia, secondary to ELIZABETH/CKD- WORSENING: - Hold Aldactone 50 mg BID - Failed IV Bumex treatment - Kayexalate 15 gm and 30 gm- patient refusing - Transfer to tele for cardiac monitoring R leg ulcer/sacral ulcer: - Consult ID- continue IV Daptomycin - Wound care consulted Bacteremia secondary to UTI, likely from chronic Rodriguez: - IV Rocephin + Daptomycin- ID following - BCx growing Klebsiella pneumoniae- repeat BCx pending COPD without exacerbation: O2 protocol, wean as tolerated- wears 3L O2 24/7 ELIZABETH on CKD stage III-IV, baseline Cr 1.6-2.0: - Stop IV Bumex treatment - Obtain abdominal CT scan to r/o kidney stone/hydronephrosis w/ crystals in UA - Follow PRP Hyponatremia at 132, likely secondary to diuresis: IV Bumex d/c'd, follow PRP Chronic anemia, ?secondary to CKD- STABLE: Follow CBC T2DM, HgbA1C 8.7% on 03/25: - Continue Glimepiride 4 mg BID - BSG BID Tobacco Abuse: Smoking cessation counselling DVT prophylaxis: Heparin SQ BID Code Status: LEVEL I, FULL Dispo: Discharge to home w/ [facility] once medically stable (Vidya Conklin ., PA-C) Attending Attestation: Pt seen/examined, chart reviewed, care plan d/w AUSTIN Conklin. I agree w/ the danielson components of her documentation. Pt very upset about the things we have ordered including CT abd/pelvis, kayexalate, etc She states "I feel fine" and was agitated we were adding/changing her care plan. Multiple discussions about the high potassium and how dangerous this can be especially since it continues to rise. Patient transferred to telemetry due to hyperkalemia. EKG - my reading - QRS interval normal, no peaked T's, NSR Pt w/o cp, dyspnea, abd pain. VSS no fever gen - agitated but a/o x 3 neck - no JVD sitting upright at 90 degrees mouth - MMM heart - RRR lungs - CTA b/l abd - obese, umbilical hernia, NT, minimally distended ext - stasis changes b/l legs, no edema K 5.9 Cr 2.6 A/P: 1. hyperkalemia - 2 doses of kayexalate today - if she will take them. I counseled her on dangers of untreated high K including ventricular arrhythmia and even . Tx to telemetry. High K due to ELIZABETH and recent aldactone use. 2. acute/chronic renal failure with CKD stage 3 as her baseline - over-diuresis ?? BMP in am. serial K checks 3. klebsiella bacteremia 2nd to UTI - check CT abd/pelvis - r/o complicating obstructing stone. repeat blood cx's today to ensure sterility 4. acute/chronic diastolic CHF in setting of cor pulmonale - acute component appears resolved; diuretics on hold due to #2. time - 40 minutes today on several visits Demetria GIRALDO MD (Lucius Giraldo MD)
--- NOTE | 2017-04-29 14:07 | DIAGNOSTIC IMAGING REPORT ---
ABD/PELVIS WITHOUT FOR STONE CLINICAL HISTORY: 56 years-old Female presenting with complicated renal stone, UTI, hydronephrosis. TECHNIQUE: Multidetector CT of the abdomen and pelvis was performed without the use of intravenous contrast. IV contrast: None. A dose lowering technique was used consistent with the principles of ALARA (as low as reasonably achievable). COMPARISON: 04/26/2014. CT DOSE (mGy.cm): The estimated cumulative dose is 1782.00 mGy.cm. FINDINGS: Barman topogram: Unremarkable. Lung bases: Suggestion of emphysema. Additionally, the pulmonary arteries are dilated relative to their associated bronchi/bronchioles likely indicating elevated pulmonary hypertension. Bandlike opacities at the left lung base likely atelectasis. Multichamber enlargement of the heart. No pericardial pleural effusion. Liver: The inferior undersurface of the right hepatic lobe is somewhat nodular in appearance. No liver lesion. Dilated hepatic veins likely indicate elevated right heart pressure. Biliary: No intrahepatic or extrahepatic biliary ductal dilatation. Gallbladder contains gallstones. Pancreas: Mild parenchymal atrophy. Spleen: Normal. Adrenal glands: 10 mm nodule in the lateral limb of the left adrenal gland, which is indeterminate by density (14-16 Hounsfield units). Kidneys and ureters: Bilateral perinephric fat stranding, nonspecific. No renal calculi. No hydronephrosis. Ureters normal. Bladder: Decompressed with a Lerner catheter. Pelvic organs: Uterus and ovaries normal. Bowel: Moderate stool burden in the rectum. No rectal wall thickening or perirectal inflammatory change. Limited diverticulosis in the distal sigmoid colon. Mild stool burden noted elsewhere throughout the colon. Normal appendix. No bowel obstruction. Mildly distended stomach. Peritoneal cavity: Mild infiltration of the small bowel mesentery, nonspecific but possibly indicating mesenteric panniculitis. No free fluid or gas. Vasculature: Atherosclerosis of the normal caliber abdominal aorta. Infrarenal IVC filter in place. Lymph nodes: Scattered prominent upper abdominal lymph nodes, which are subcentimeter, possibly reactive. Abdominal wall: Ventral hernia in the lower abdomen containing fat and small bowel with a wide neck. Fat-containing umbilical hernia. Infiltration of the subcutaneous tissue of the pannus with associated skin thickening. This is new from prior exam. Musculoskeletal: Muscular atrophy noted in the proximal lower extremities. Severe bilateral degenerative change of the hip joints. Degenerative changes of the spine and sacroiliac joints. Mild osteopenia suggested. IMPRESSION: 1. Nonspecific bilateral perinephric fat stranding. This can be a normal variant in the older patient population as well as secondary to aggressive volume resuscitation or infection/inflammation. No hydronephrosis or renal calculi. 2. Evaluation of the bladder is limited due to decompression with the Lerner catheter. 3. Indeterminate 10 mm nodule in the lateral limb of the left adrenal gland. If there is clinical concern, dedicated adrenal protocol CT or MR could be obtained. 4. Mild stool burden most pronounced in the rectum. 5. Infiltration of the subcutaneous tissue of the pannus with associated skin thickening is concerning for cellulitis. Correlate clinically. Electronically signed by: Garett Aguilera M.D. 04/29/2017 2:05 PM Dictated Date/Time: 04/29/2017 1:54 PM
[2017-04-29] MEDS ORDERED: NURSING VERBAL MED ORDER ONE ×2 (17:00→17:15)
[2017-04-29] MEDS: CEFTRIAXONE SOD INJ 1 GM in DEXTROSE 5% ADD-VANTAGE 50ML 50 ML IV SCH (19:04)
[2017-04-29] MEDS: DAPTOMYCIN IV SCH (20:18)
[2017-04-29] MEDS: SODIUM CHLORIDE 0.9% IV SCH (20:18)
[2017-04-29] MEDS: ZOLPIDEM TARTRATE 5 MG TAB PO SCH ×2 (21:00→23:54)
--- NOTE | 2017-04-29 21:49 | Infectious Disease Progress Nt ---
Progress Note Date of Service Apr 29, 2017. Subjective Pt evaluation today including: conversation w/ patient, physical exam, chart review, lab review, review of studies, conversation w/ property consultant, review of inpatient medication list patient offering no new complaints today. Remains afebrile. Tolerating antibiotics without apparent difficulty. All Other Systems: Reviewed and Negative Medications Current Inpatient Medications Medications (Trade) Dose Ordered Sig/Bruno Route Start Time Stop Time Status Last Admin Dose Admin Heparin Sodium (Porcine) (Heparin Sq 5000 Unit/0.5ml) 5,000 unit Q12 SQ 04/26/17 21:00 05/26/17 20:59 Acetaminophen (Tylenol Tab) 650 mg Q4H PRN PO 04/26/17 15:00 05/26/17 14:59 04/28/17 21:04 650 MG Al Hydrox/Mg Hydrox/Simethicone (Maalox Max Susp) 15 ml Q4H PRN PO 04/26/17 15:00 05/26/17 14:59 Magnesium Hydroxide (Milk Of Magnesia Susp) 30 ml Q12H PRN PO 04/26/17 15:00 05/26/17 14:59 Ondansetron HCl (Zofran Inj) 4 mg Q6H PRN IV 04/26/17 15:00 05/26/17 14:59 Nitroglycerin (Nitrostat Tab) 0.4 mg UD PRN SL 04/26/17 15:00 05/26/17 14:59 Polyethylene (Miralax Powder Packet) 17 gm DAILY PRN PO 04/26/17 15:00 05/26/17 14:59 Bumetanide 1 mg/ Syringe 4 ml @ 4 mls/min DAILY@0900 IV 04/27/17 09:00 05/27/17 08:59 Future Hold 04/29/17 08:13 4 MLS/MIN Ceftriaxone Sodium 1 gm/ Dextrose 50 ml @ 100 mls/hr Q24H IV 04/26/17 18:00 05/01/17 17:59 04/29/17 19:04 100 MLS/HR Multi-Ingredient Ointment (Eucerin Unscented Cr) 1 appln BID EXT 04/26/17 21:00 05/26/17 20:59 04/29/17 10:00 1 APPLN Daptomycin 440 mg/ Sodium Chloride 58.8 ml @ 120 mls/hr Q24H IV 04/26/17 20:00 05/06/17 19:59 04/29/17 20:18 120 MLS/HR Heparin Sodium (Porcine) (Heparin 10 Unit/ ml 5 ml Flush) 5 ml PRN PRN FLUSH 04/26/17 20:00 05/26/17 19:59 04/29/17 20:59 5 ML Zolpidem Tartrate (Ambien Tab) 5 mg HS PO 04/26/17 21:00 05/26/17 20:59 04/28/17 21:58 5 MG Oxycodone HCl (Roxicodone Immediate Rel Tab) 10 mg Q8 PRN PO 04/28/17 13:15 05/12/17 13:14 04/29/17 13:34 10 MG Heparin Sodium (Porcine) (Heparin 10 Unit/ ml 5 ml Flush) 1 ml UD PRN FLUSH 04/29/17 20:00 05/29/17 19:59 Objective Vital Signs Date Time Temp Pulse Resp B/P (MAP) Pulse Ox O2 Delivery O2 Flow Rate FiO2 04/29/17 20:07 36.8 86 20 107/61 (76) 94 Nasal Cannula 4.0 04/29/17 16:00 91 Nasal Cannula 3.0 Humidified Air 04/29/17 15:54 36.5 83 20 117/74 (88) 91 Nasal Cannula 4.0 04/29/17 10:53 92 Nasal Cannula 4.0 04/29/17 10:47 36.5 83 22 122/78 (93) 92 Nasal Cannula 4.0 04/29/17 08:00 92 Nasal Cannula 3.0 04/29/17 07:47 36.4 85 20 155/73 (100) 92 04/29/17 00:31 36.4 63 16 94/54 (67) 94 4.0 63 04/28/17 23:27 Nasal Cannula 4.0 Humidified Oxygen Physical Exam General Appearance: WD/WN, no apparent distress, + obese Eyes: normal inspection, EOMI, sclerae normal ENT: normal ENT inspection, pharynx normal Neck: supple, no adenopathy, trachea midline Respiratory/Chest: chest non-tender, lungs clear, normal breath sounds, no respiratory distress Cardiovascular: regular rate, rhythm, no gallop, no murmur Abdomen: normal bowel sounds, non tender, soft, no organomegaly Extremities: non-tender, no calf tenderness Neurologic/Psychiatric: alert, oriented x 3 Skin: normal color, no rash Lymphatic: no adenopathy Laboratory Results Last 24 Hours Test 04/29/17 07:25 04/29/17 07:42 04/29/17 20:21 White Blood Count 8.43 K/uL Red Blood Count 3.65 M/uL Hemoglobin 9.4 g/dL Hematocrit 30.7 % Mean Corpuscular Volume 84.1 fL Mean Corpuscular Hemoglobin 25.8 pg Mean Corpuscular Hemoglobin Concent 30.6 g/dl RDW Standard Deviation 47.6 fL RDW Coefficient of Variation 15.3 % Platelet Count 214 K/uL Mean Platelet Volume 9.8 fL Sodium Level 132 mmol/L Potassium Level 5.9 mmol/L Chloride Level 103 mmol/L Carbon Dioxide Level 23 mmol/L Anion Gap 6.0 mmol/L Blood Urea Nitrogen 75 mg/dl Creatinine 2.60 mg/dl Est Creatinine Clear Calc Drug Dose 30.2 ml/min Estimated GFR () 22.7 Estimated GFR (Non- 19.5 BUN/Creatinine Ratio 28.8 Random Glucose 177 mg/dl Calcium Level 8.5 mg/dl Bedside Glucose 183 mg/dl 195 mg/dl Assessment and Plan 48-year-old female with chronic sacral decubitus ulcer, with more recent left leg ulcerations with secondary infection with methicillin sensitive Staph aureus , now with Klebsiella sepsis from urinary tract source. Appears to be improving on ceftriaxone, so will continue, likely for 10-14 days.
[2017-04-29] MEDS: ACETAMINOPHEN 325 MG TAB PO PRN (22:37)
[2017-04-30 03:53] VITALS: BP 120/75; PULSE 96; TEMP 36.7; O2SAT 91
--- NOTE | 2017-04-30 04:56 | Clinical Documentation Query ---
CLINICAL DOCUMENTATION QUERY 56 year old female who presents to the Emergency Room after being referred for an elevated BUN In your clinical opinion is this patient being managed for: (X ) Acute on chronic RV systolic heart failure in setting of Pickwickian syndrome treated with IV Bumex. ( ) Not Agree ( ) Other explanation of clinical findings (Please Explain) ( ) Unable to determine (Please Define) ( ) Need to Discuss The medical record reflects the following clinical findings, treatment, and risk factors. Clinical Indicators: right sided CHF per H&P and daily progress notes, SOB, increased edema. Echo from 05/21/15 showed the right ventricle is severely dilated. The right ventricular systolic function is moderate to severely reduced. Treatment: IV Bumex, telemetry, strict I/O's, low sodium diet, daily weights Risk Factors: Age, COPD, morbid obesity/pickwickian Please clarify and document your clinical opinion in the progress notes and discharge summary. Terms such as "probable", "suspected", "likely", "questionable", "possible", or "still to be ruled out" are acceptable. IF IN AGREEMENT, YOU MUST DOCUMENT ABOVE DIAGNOSTIC STATEMENT IN DAILY PROGRESS NOTES AND DISCHARGE SUMMARY. This document is not part of the patient's record. Thank You, Joshua Rosales, RN [phone]
[2017-04-30] MEDS: ACETAMINOPHEN 325 MG TAB PO PRN ×2 (06:28→21:23)
[2017-04-30 07:30] LABS: BUN/CREATININE RATIO 34.6 (10-20); CALCIUM 8.5 mg/dl (8.5-10.1); CREATININE 2.1 mg/dl (0.60-1.20); POTASSIUM 5.2 mmol/L (3.5-5.1)
[2017-04-30] MEDS: HEPARIN SOD 5000 UNIT/0.5 ML CARP SQ SCH ×2 (07:32→20:29)
[2017-04-30 07:54] VITALS: BP 129/79; PULSE 81; TEMP 36.9; O2SAT 93
[2017-04-30] MEDS: EUCERIN CR 120 GM JAR EXT SCH ×2 (09:00→20:29)
[2017-04-30 11:53] VITALS: BP 142/84; PULSE 86; TEMP 36.7; O2SAT 96
[2017-04-30] MEDS: OXYCODONE HCL IR 5 MG TAB (IMMEDIATE RELEASE) PO PRN (12:28)
--- NOTE | 2017-04-30 12:56 | Hospitalist Progress Note ---
Hospitalist Progress Note Date of Service Apr 30, 2017. (Vidya Conklin ., PA-C) Subjective Pt evaluation today including: conversation w/ patient Voiding: rodriguez catheter in place (cloudy/yellow) Very frustrated w/ Kayexalate and frequent BMs, however, seems happy about K being 5.2 Pauses noted on tele overnight- patient is to wear CPAP HS but states she cannot tolerate the machine in the hospital because "the air is dry and the mask is too big." She states she is complaint with CPAP at home. Irritated that Bumex is held at this time because she believes there is still fluid in her abdomen that needs to be removed Had a long discussion about kidney function, fluid, and holding Bumex at this time- patient in understanding On Bumex 1 mg daily at home- however, quit taking 1 week before admission because she didn't feel it was helping- discussed importance of not stopping medications at discharge. Patient is refusing Rodriguez change Patient refusing glucose checks and sliding insulin scale Eating and drinking OK. Unhappy with wound care, stating "no one in this hospital knows how to take care of my wound dressings." Patient denies any fever, chills, sweats, lightheadedness, dizziness, vision changes, CP, palpitations, SOB, wheezing, cough, abdominal pain, nausea, vomiting, diarrhea, urinary symptoms, melena, numbness/tingling, weakness, muscle/joint pain, anxiety/depression, active bleeding, or new skin discoloration/changes. (Vidya Conklin ., PA-C) Medications Current Inpatient Medications Medications (Trade) Dose Ordered Sig/Bruno Route Start Time Stop Time Status Last Admin Dose Admin Heparin Sodium (Porcine) (Heparin Sq 5000 Unit/0.5ml) 5,000 unit Q12 SQ 04/26/17 21:00 05/26/17 20:59 Acetaminophen (Tylenol Tab) 650 mg Q4H PRN PO 04/26/17 15:00 05/26/17 14:59 04/30/17 06:28 650 MG Al Hydrox/Mg Hydrox/Simethicone (Maalox Max Susp) 15 ml Q4H PRN PO 04/26/17 15:00 05/26/17 14:59 Magnesium Hydroxide (Milk Of Magnesia Susp) 30 ml Q12H PRN PO 04/26/17 15:00 05/26/17 14:59 Ondansetron HCl (Zofran Inj) 4 mg Q6H PRN IV 04/26/17 15:00 05/26/17 14:59 Nitroglycerin (Nitrostat Tab) 0.4 mg UD PRN SL 04/26/17 15:00 05/26/17 14:59 Polyethylene (Miralax Powder Packet) 17 gm DAILY PRN PO 04/26/17 15:00 05/26/17 14:59 Bumetanide 1 mg/ Syringe 4 ml @ 4 mls/min DAILY@0900 IV 04/27/17 09:00 05/27/17 08:59 Future Hold 04/29/17 08:13 4 MLS/MIN Ceftriaxone Sodium 1 gm/ Dextrose 50 ml @ 100 mls/hr Q24H IV 04/26/17 18:00 05/01/17 17:59 04/29/17 19:04 100 MLS/HR Multi-Ingredient Ointment (Eucerin Unscented Cr) 1 appln BID EXT 04/26/17 21:00 05/26/17 20:59 04/29/17 10:00 1 APPLN Daptomycin 440 mg/ Sodium Chloride 58.8 ml @ 120 mls/hr Q24H IV 04/26/17 20:00 05/06/17 19:59 04/29/17 20:18 120 MLS/HR Heparin Sodium (Porcine) (Heparin 10 Unit/ ml 5 ml Flush) 5 ml PRN PRN FLUSH 04/26/17 20:00 05/26/17 19:59 04/29/17 20:59 5 ML Zolpidem Tartrate (Ambien Tab) 5 mg HS PO 04/26/17 21:00 05/26/17 20:59 04/29/17 23:54 5 MG Oxycodone HCl (Roxicodone Immediate Rel Tab) 10 mg Q8 PRN PO 04/28/17 13:15 05/12/17 13:14 04/29/17 13:34 10 MG Heparin Sodium (Porcine) (Heparin 10 Unit/ ml 5 ml Flush) 1 ml UD PRN FLUSH 04/29/17 20:00 05/29/17 19:59 (Murarik, Vidya ., PA-C) Objective Vital Signs Date Time Temp Pulse Resp B/P (MAP) Pulse Ox O2 Delivery O2 Flow Rate FiO2 04/30/17 11:53 36.7 86 16 142/84 (103) 96 Room Air 04/30/17 07:54 36.9 81 20 129/79 (96) 93 Nasal Cannula 4.0 04/30/17 07:30 Nasal Cannula 3.0 Humidified Air 04/30/17 04:00 Nasal Cannula 3.0 Humidified Air 04/30/17 03:53 36.7 96 18 120/75 (90) 91 Nasal Cannula 4.0 04/30/17 00:02 Nasal Cannula 3.0 Humidified Air 04/29/17 22:55 36.5 92 20 110/69 (83) 93 Nasal Cannula 4.0 04/29/17 20:07 36.8 86 20 107/61 (76) 94 Nasal Cannula 4.0 04/29/17 20:00 Nasal Cannula 3.0 Humidified Air 04/29/17 16:00 91 Nasal Cannula 3.0 Humidified Air 04/29/17 15:54 36.5 83 20 117/74 (88) 91 Nasal Cannula 4.0 (Vidya Conklin ., PA-C) Physical Exam General Appearance: no apparent distress, + obese, + pertinent finding (O2 NC) Eyes: normal inspection, PERRL ENT: hearing grossly normal Neck: supple Respiratory/Chest: lungs clear, no respiratory distress, no accessory muscle use, + decreased breath sounds Cardiovascular: regular rate, rhythm Abdomen: normal bowel sounds, non tender, soft Extremities: no calf tenderness, + swelling (+1 pitting edema to bilateral lower extremities, >at proximal vega region), + pertinent finding (chronic venous stasis changes to bilateral lower extremities ) Neurologic/Psychiatric: alert, oriented x 3 Skin: normal color, warm/dry, no rash (Vidya Conklin ., PA-C) Laboratory Results Last 24 Hours Test 04/29/17 20:21 04/29/17 21:55 04/30/17 06:28 04/30/17 07:06 Bedside Glucose 195 mg/dl 240 mg/dl Potassium Level 5.7 mmol/L 5.2 mmol/L Sodium Level 136 mmol/L Chloride Level 104 mmol/L Carbon Dioxide Level 25 mmol/L Anion Gap 7.0 mmol/L Blood Urea Nitrogen 73 mg/dl Creatinine 2.10 mg/dl Est Creatinine Clear Calc Drug Dose 36.1 ml/min Estimated GFR () 29.3 Estimated GFR (Non- 25.3 BUN/Creatinine Ratio 34.6 Random Glucose 227 mg/dl Calcium Level 8.5 mg/dl Test 04/30/17 10:33 04/30/17 10:34 04/30/17 10:35 Bedside Glucose 243 mg/dl 237 mg/dl Potassium Level 5.3 mmol/L (Vidya Conklin, PA-C) Assessment and Plan Patient is a 56 y/o female, with PMHx of COPD on chronic 3L O2, cor pulmonale, R -sided CHF, T2DM, chronic R leg ulcer, sacral ulcer, CKD stage III-IV, chronic anemia, indwelling Rodriguez catheter, h/o DVT w/ IVC filter placement, who presented to the ED per Dr. Brown's recommendations due to kidney function. Decompensated R CHF- RESOLVED: - Admit to med/surg - IV 1 mg Bumex daily; hold Bumex 1 mg daily -- Treated 04/26-04/29--> d/c'd due to Cr 2.6 - Cr. improved to 2.1 on 04/30- resume Bumex PO tomorrow - Monitor I&O's and daily weights - Hold Aldactone due to hyperkalemia Hyperkalemia, secondary to ELIZABETH/CKD- IMPROVED: - Hold Aldactone 50 mg BID - Failed IV Bumex treatment - Treated w/ Kayexalate 15 gm and 30 gm - On tele for cardiac monitoring - Follow K level R leg ulcer/sacral ulcer- follows w/ Dr. Brown: - Consult ID- continue IV Daptomycin - Wound care consulted Bacteremia secondary to UTI, likely from chronic Rodriguez- IMPROVING: - IV Rocephin x10 days- last day of treatment 05/09 - BCx growing Klebsiella pneumoniae- repeat BCx pending - Leukocytosis- RESOLVED - Refusing Rodriguez change per RN COPD without exacerbation: O2 protocol, wean as tolerated- wears 3L O2 11/03 ELIZABETH on CKD stage III-IV, baseline Cr 1.6-2.0, like secondary to IV diuresis- RESOLVED: - Stop IV Bumex treatment - Abdominal CT scan- no kidney stones/hydronephrosis - Follow PRP Hyponatremia at 132, likely secondary to diuresis- RESOLVED: IV Bumex d/c'd, follow PRP Chronic anemia, ?secondary to CKD- STABLE: Follow CBC T2DM, HgbA1C 8.7% on 03/25: - Continue Glimepiride 4 mg BID - BSG BID- refusing glucose checks and sliding insulin scale ROHAN: CPAP HS- discussed importance of compliance Tobacco Abuse: Smoking cessation counselling DVT prophylaxis: Heparin SQ BID Code Status: LEVEL I, FULL Dispo: Discharge to home w/ [facility] once medically stable (Vidya Conklin ., PA-C) Attending Attestation: Pt seen/examined, chart reviewed, care plan d/w AUSTIN Conklin. I agree w/ the danielson components of her documentation. During my visit she had no complaints. no further diarrhea denied any location of pain tele during the dayshift had been normal today VSS no fever gen - NAD, sitting in wheelchair neck - no JVD sitting upright at 90 degrees mouth - MMM heart - RRR lungs - CTA b/l, modestly decreased BS bases abd - obese, umbilical hernia - reducible, NT, minimally distended; no signs of panniculitis ext - stasis changes b/l legs, 1+ edema b/l K 5.2 Cr 2.1 A/P: 1. hyperkalemia - resolved 2. acute/chronic renal failure with CKD stage 3 as her baseline - acute kidney injury resolving, bmp in am. 3. klebsiella bacteremia 2nd to UTI - checked CT abd/pelvis - no complicating obstructing stone. Might have some element of pyelonephritis. repeat blood cx's thus far neg Dr. Brown recommending 14 days in total of abx - likely w/ rocephin would need midline PICC 4. acute/chronic diastolic CHF (with acute/chronic right-sided systolic CHF) - acute component appears resolved; diuretics on hold due to #2. resume bumex tomorrow also check TSH leave on tele 1 more night Demetria GIRALDO MD (Lucius Giraldo MD)
[2017-04-30 15:55] VITALS: BP 126/79; PULSE 103; TEMP 36.4; O2SAT 94
--- NOTE | 2017-04-30 18:10 | Infectious Disease Progress Nt ---
Progress Note Date of Service Apr 30, 2017. Subjective Pt evaluation today including: conversation w/ patient, physical exam, chart review, lab review, review of studies, conversation w/ residential property consultant, review of inpatient medication list now being treated for hyperkalemia. No specific new complaints other than diarrhea. Remains afebrile. Tolerating antibiotics without apparent difficulty. No new urinary complaints. All Other Systems: Reviewed and Negative Medications Current Inpatient Medications Medications (Trade) Dose Ordered Sig/Bruno Route Start Time Stop Time Status Last Admin Dose Admin Heparin Sodium (Porcine) (Heparin Sq 5000 Unit/0.5ml) 5,000 unit Q12 SQ 04/26/17 21:00 05/26/17 20:59 Acetaminophen (Tylenol Tab) 650 mg Q4H PRN PO 04/26/17 15:00 05/26/17 14:59 04/30/17 06:28 650 MG Al Hydrox/Mg Hydrox/Simethicone (Maalox Max Susp) 15 ml Q4H PRN PO 04/26/17 15:00 05/26/17 14:59 Magnesium Hydroxide (Milk Of Magnesia Susp) 30 ml Q12H PRN PO 04/26/17 15:00 05/26/17 14:59 Ondansetron HCl (Zofran Inj) 4 mg Q6H PRN IV 04/26/17 15:00 05/26/17 14:59 Nitroglycerin (Nitrostat Tab) 0.4 mg UD PRN SL 04/26/17 15:00 05/26/17 14:59 Polyethylene (Miralax Powder Packet) 17 gm DAILY PRN PO 04/26/17 15:00 05/26/17 14:59 Bumetanide 1 mg/ Syringe 4 ml @ 4 mls/min DAILY@0900 IV 04/27/17 09:00 05/27/17 08:59 Future Hold 04/29/17 08:13 4 MLS/MIN Ceftriaxone Sodium 1 gm/ Dextrose 50 ml @ 100 mls/hr Q24H IV 04/26/17 18:00 05/01/17 17:59 04/29/17 19:04 100 MLS/HR Multi-Ingredient Ointment (Eucerin Unscented Cr) 1 appln BID EXT 04/26/17 21:00 05/26/17 20:59 04/30/17 09:00 1 APPLN Daptomycin 440 mg/ Sodium Chloride 58.8 ml @ 120 mls/hr Q24H IV 04/26/17 20:00 05/06/17 19:59 04/29/17 20:18 120 MLS/HR Heparin Sodium (Porcine) (Heparin 10 Unit/ ml 5 ml Flush) 5 ml PRN PRN FLUSH 04/26/17 20:00 05/26/17 19:59 04/29/17 20:59 5 ML Zolpidem Tartrate (Ambien Tab) 5 mg HS PO 04/26/17 21:00 05/26/17 20:59 04/29/17 23:54 5 MG Oxycodone HCl (Roxicodone Immediate Rel Tab) 10 mg Q8 PRN PO 04/28/17 13:15 05/12/17 13:14 04/30/17 12:28 10 MG Heparin Sodium (Porcine) (Heparin 10 Unit/ ml 5 ml Flush) 1 ml UD PRN FLUSH 04/29/17 20:00 05/29/17 19:59 Bumetanide (Bumex Tab) 1 mg QAM PO 05/01/17 09:00 05/31/17 08:59 Objective Vital Signs Date Time Temp Pulse Resp B/P (MAP) Pulse Ox O2 Delivery O2 Flow Rate FiO2 04/30/17 16:15 Nasal Cannula 3.0 Humidified Air 04/30/17 15:55 36.4 103 20 126/79 (95) 94 Nasal Cannula 4.0 04/30/17 12:30 Nasal Cannula 3.0 Humidified Air 04/30/17 11:53 36.7 86 16 142/84 (103) 96 Room Air 04/30/17 07:54 36.9 81 20 129/79 (96) 93 Nasal Cannula 4.0 04/30/17 07:30 Nasal Cannula 3.0 Humidified Air 04/30/17 04:00 Nasal Cannula 3.0 Humidified Air 04/30/17 03:53 36.7 96 18 120/75 (90) 91 Nasal Cannula 4.0 04/30/17 00:02 Nasal Cannula 3.0 Humidified Air 04/29/17 22:55 36.5 92 20 110/69 (83) 93 Nasal Cannula 4.0 04/29/17 20:07 36.8 86 20 107/61 (76) 94 Nasal Cannula 4.0 04/29/17 20:00 Nasal Cannula 3.0 Humidified Air Physical Exam General Appearance: WD/WN, no apparent distress, + obese Eyes: normal inspection, EOMI, sclerae normal ENT: normal ENT inspection, pharynx normal Neck: supple, no adenopathy, thyroid normal, trachea midline Respiratory/Chest: chest non-tender, lungs clear, normal breath sounds, no respiratory distress Cardiovascular: regular rate, rhythm, no gallop, no murmur Abdomen: normal bowel sounds, non tender, soft, no organomegaly Extremities: non-tender, no calf tenderness Neurologic/Psychiatric: alert, oriented x 3 Skin: normal color, warm/dry, no rash Lymphatic: no adenopathy Laboratory Results Last 24 Hours Test 04/29/17 20:21 04/29/17 21:55 04/30/17 06:28 04/30/17 07:06 Bedside Glucose 195 mg/dl 240 mg/dl Potassium Level 5.7 mmol/L 5.2 mmol/L Sodium Level 136 mmol/L Chloride Level 104 mmol/L Carbon Dioxide Level 25 mmol/L Anion Gap 7.0 mmol/L Blood Urea Nitrogen 73 mg/dl Creatinine 2.10 mg/dl Est Creatinine Clear Calc Drug Dose 36.1 ml/min Estimated GFR () 29.3 Estimated GFR (Non- 25.3 BUN/Creatinine Ratio 34.6 Random Glucose 227 mg/dl Calcium Level 8.5 mg/dl Test 04/30/17 10:33 04/30/17 10:34 04/30/17 10:35 04/30/17 16:10 Bedside Glucose 243 mg/dl 237 mg/dl 238 mg/dl Potassium Level 5.3 mmol/L Assessment and Plan 48-year-old female with chronic sacral decubitus ulcer, with more recent left leg ulcerations with secondary infection with methicillin sensitive Staph aureus , now with Klebsiella sepsis from urinary tract source. Appears to be improving on ceftriaxone, so will continue, likely for 10-14 days. Will continue to follow.
[2017-04-30] MEDS: CEFTRIAXONE SOD INJ 1 GM in DEXTROSE 5% ADD-VANTAGE 50ML 50 ML IV SCH (18:34)
[2017-04-30 18:37] VITALS: BP 137/80; PULSE 94; TEMP 36.7; O2SAT 94
[2017-04-30] MEDS: DAPTOMYCIN IV SCH (20:28)
[2017-04-30] MEDS: SODIUM CHLORIDE 0.9% IV SCH (20:28)
[2017-04-30] MEDS: ZOLPIDEM TARTRATE 5 MG TAB PO SCH (22:31)
[2017-04-30 22:57] VITALS: PULSE 76; O2SAT 96
[2017-05-01 07:52] VITALS: BP 122/76; PULSE 91; TEMP 36.6; O2SAT 95
[2017-05-01] MEDS: HEPARIN SOD 5000 UNIT/0.5 ML CARP SQ SCH ×2 (08:39→19:50)
[2017-05-01] MEDS: BUMETANIDE 1 MG TAB PO SCH (08:40)
[2017-05-01] MEDS: EUCERIN CR 120 GM JAR EXT SCH ×2 (08:41→19:50)
[2017-05-01 08:45] LABS: BUN/CREATININE RATIO 33.2 (10-20); CALCIUM 8.8 mg/dl (8.5-10.1); CREATININE 1.9 mg/dl (0.60-1.20)
[2017-05-01 08:56] LABS: THYROID STIMULATING HORMONE 0.808 uIu/ml (0.300-4.500)
[2017-05-01] MEDS: ACETAMINOPHEN 325 MG TAB PO PRN (10:16)
[2017-05-01 11:39] VITALS: BP 109/67; PULSE 97; TEMP 36.9; O2SAT 94
--- NOTE | 2017-05-01 13:49 | Hospitalist Progress Note ---
Hospitalist Progress Note Date of Service May 01, 2017. (Vidya Conklin ., PA-C) Subjective Pt evaluation today including: conversation w/ patient, physical exam, lab review, review of inpatient medication list Voiding: rodriguez catheter in place Patient denies any complaints today. Eating and drinking OK. Discussed changing Rodriguez catheter due to infection- states "oh I know if needs changed. May tomorrow, I don't feel like it today." Still feels she is full of fluid. Patient denies any fever, chills, sweats, lightheadedness, dizziness, vision changes, CP, palpitations, edema, SOB, wheezing, cough, abdominal pain, nausea, vomiting, diarrhea, urinary symptoms, melena, numbness/tingling, weakness, muscle/joint pain, anxiety/depression, active bleeding, or new skin discoloration/changes. (Vidya Conklin ., PA-C) Medications Current Inpatient Medications Medications (Trade) Dose Ordered Sig/Bruno Route Start Time Stop Time Status Last Admin Dose Admin Heparin Sodium (Porcine) (Heparin Sq 5000 Unit/0.5ml) 5,000 unit Q12 SQ 04/26/17 21:00 05/26/17 20:59 Acetaminophen (Tylenol Tab) 650 mg Q4H PRN PO 04/26/17 15:00 05/26/17 14:59 05/01/17 10:16 650 MG Al Hydrox/Mg Hydrox/Simethicone (Maalox Max Susp) 15 ml Q4H PRN PO 04/26/17 15:00 05/26/17 14:59 Magnesium Hydroxide (Milk Of Magnesia Susp) 30 ml Q12H PRN PO 04/26/17 15:00 05/26/17 14:59 Ondansetron HCl (Zofran Inj) 4 mg Q6H PRN IV 04/26/17 15:00 05/26/17 14:59 Nitroglycerin (Nitrostat Tab) 0.4 mg UD PRN SL 04/26/17 15:00 05/26/17 14:59 Polyethylene (Miralax Powder Packet) 17 gm DAILY PRN PO 04/26/17 15:00 05/26/17 14:59 Bumetanide 1 mg/ Syringe 4 ml @ 4 mls/min DAILY@0900 IV 04/27/17 09:00 05/27/17 08:59 Future Hold 04/29/17 08:13 4 MLS/MIN Ceftriaxone Sodium 1 gm/ Dextrose 50 ml @ 100 mls/hr Q24H IV 04/26/17 18:00 05/01/17 17:59 04/30/17 18:34 100 MLS/HR Multi-Ingredient Ointment (Eucerin Unscented Cr) 1 appln BID EXT 04/26/17 21:00 05/26/17 20:59 05/01/17 08:41 1 APPLN Daptomycin 440 mg/ Sodium Chloride 58.8 ml @ 120 mls/hr Q24H IV 04/26/17 20:00 05/06/17 19:59 04/30/17 20:28 120 MLS/HR Heparin Sodium (Porcine) (Heparin 10 Unit/ ml 5 ml Flush) 5 ml PRN PRN FLUSH 04/26/17 20:00 05/26/17 19:59 04/29/17 20:59 5 ML Zolpidem Tartrate (Ambien Tab) 5 mg HS PO 04/26/17 21:00 05/26/17 20:59 04/30/17 22:31 5 MG Oxycodone HCl (Roxicodone Immediate Rel Tab) 10 mg Q8 PRN PO 04/28/17 13:15 05/12/17 13:14 04/30/17 12:28 10 MG Heparin Sodium (Porcine) (Heparin 10 Unit/ ml 5 ml Flush) 1 ml UD PRN FLUSH 04/29/17 20:00 05/29/17 19:59 Bumetanide (Bumex Tab) 1 mg QAM PO 05/01/17 09:00 05/31/17 08:59 05/01/17 08:40 1 MG Glimepiride (Amaryl Tab) 2 mg QAM PO 05/02/17 09:00 06/01/17 08:59 UNV Glimepiride (Amaryl Tab) 2 mg 1342 ONCE PO 05/01/17 13:42 05/01/17 13:43 UNV (Vidya Conklin, RONDA) Objective Vital Signs Date Time Temp Pulse Resp B/P (MAP) Pulse Ox O2 Delivery O2 Flow Rate FiO2 05/01/17 12:55 Nasal Cannula 4.0 05/01/17 11:39 36.9 97 18 109/67 (81) 94 4.0 05/01/17 08:10 Nasal Cannula 3.0 05/01/17 07:52 36.6 91 18 122/76 (91) 95 4.0 05/01/17 04:00 Nasal Cannula 3.0 04/30/17 23:59 Nasal Cannula 3.0 04/30/17 22:57 76 96 3.0 04/30/17 20:00 Nasal Cannula 3.0 04/30/17 18:37 36.7 94 20 137/80 (99) 94 Nasal Cannula 4.0 04/30/17 16:15 Nasal Cannula 3.0 Humidified Air 04/30/17 15:55 36.4 103 20 126/79 (95) 94 Nasal Cannula 4.0 (Vidya Conklin ., PA-C) Physical Exam General Appearance: no apparent distress, + obese, + pertinent finding (O2 NC ) Eyes: normal inspection, PERRL ENT: hearing grossly normal Neck: supple Respiratory/Chest: lungs clear, no respiratory distress, no accessory muscle use, + decreased breath sounds Cardiovascular: regular rate, rhythm Abdomen: normal bowel sounds, non tender, soft Extremities: no calf tenderness, + swelling (trace pitting edema to bilateral lower extremities ), + pertinent finding (chronic venous stasis changes ) Neurologic/Psychiatric: alert, normal mood/affect, oriented x 3 Skin: normal color, warm/dry, no rash (Vidya Conklin, PA-C) Laboratory Results Last 24 Hours Test 04/30/17 16:10 05/01/17 07:19 05/01/17 07:42 05/01/17 11:21 Bedside Glucose 238 mg/dl 191 mg/dl 263 mg/dl Sodium Level 137 mmol/L Potassium Level 5.0 mmol/L Chloride Level 106 mmol/L Carbon Dioxide Level 25 mmol/L Anion Gap 6.0 mmol/L Blood Urea Nitrogen 63 mg/dl Creatinine 1.90 mg/dl Est Creatinine Clear Calc Drug Dose 39.7 ml/min Estimated GFR () 33.1 Estimated GFR (Non- 28.6 BUN/Creatinine Ratio 33.2 Random Glucose 180 mg/dl Calcium Level 8.8 mg/dl Thyroid Stimulating Hormone (TSH) 0.808 uIu/ml (Vidya Conklin, PA-C) Assessment and Plan Patient is a 56 y/o female, with PMHx of COPD on chronic 3L O2, cor pulmonale, R -sided CHF, T2DM, chronic R leg ulcer, sacral ulcer, CKD stage III-IV, chronic anemia, indwelling Rodriguez catheter, h/o DVT w/ IVC filter placement, who presented to the ED per Dr. Brown's recommendations due to kidney function. Decompensated R CHF- RESOLVED: - IV 1 mg Bumex daily; hold Bumex 1 mg daily -- Treated 04/26-04/29--> d/c'd due to Cr 2.6 - Cr. improved to 2.1 on 04/30- resume Bumex PO tomorrow - Monitor I&O's and daily weights - Hold Aldactone due to hyperkalemia Hyperkalemia, secondary to ELIZABETH/CKD- RESOLVED: - Hold Aldactone 50 mg BID - Failed IV Bumex treatment - Treated w/ Kayexalate 15 gm and 30 gm - On tele for cardiac monitoring- no acute events - Follow K level R leg ulcer/sacral ulcer- follows w/ Dr. Brown: - Consult ID- continue IV Daptomycin - Wound care consulted Bacteremia secondary to UTI, likely from chronic Rodriguez- IMPROVING: - IV Rocephin x10 days- last day of treatment 05/09 - BCx growing Klebsiella pneumoniae- repeat BCx NGTD - Leukocytosis- RESOLVED - Rodriguez change prior to discharge COPD without exacerbation: O2 protocol, wean as tolerated- wears 3L O2 24/ ELIZABETH on CKD stage III-IV, baseline Cr 1.6-2.0, like secondary to IV diuresis- RESOLVED: - Stop IV Bumex treatment - Abdominal CT scan- no kidney stones/hydronephrosis - Follow PRP Hyponatremia at 132, likely secondary to diuresis- RESOLVED: IV Bumex d/c'd, follow PRP Chronic anemia, ?secondary to CKD- STABLE: Follow CBC T2DM, HgbA1C 8.7% on 03/25: - Glimepiride 2 mg daily - BSG BID- refusing glucose checks and sliding insulin scale ROHAN: CPAP HS- discussed importance of compliance Tobacco Abuse: Smoking cessation counselling DVT prophylaxis: Heparin SQ BID Code Status: LEVEL I, FULL Dispo: Discharge to home w/ [facility] once medically stable- hopefully tomorrow (Vidya Conklin ., PAKhushbooC) Attending Attestation: Pt seen/examined, chart reviewed, care plan d/w AUSTIN Conklin. I agree w/ the danielson components of her documentation. During my visit she had no complaints. She admitted she was "nervous" to go home. She admits to not seeing her auto air conditioning mechanic in [place] for at least 1 year, maybe longer reports her weight today "is the best it is has been in a long time" tele stable VSS no fever gen - NAD, sitting in wheelchair neck - no JVD sitting upright at 90 degrees mouth - MMM heart - RRR lungs - CTA b/l, modestly decreased BS bases but no rales abd - obese, umbilical hernia - reducible, NT, no signs of panniculitis ext - stasis changes b/l legs, 1+ edema b/l K 5 Cr 1.9 A/P: 1. hyperkalemia - resolved 2. acute/chronic renal failure with CKD stage 3 as her baseline - acute kidney injury resolved, Cr at baseline 3. klebsiella bacteremia 2nd to UTI - checked CT abd/pelvis - no complicating obstructing stone. Might have some element of pyelonephritis. repeat blood cx's thus far neg Dr. Brown recommending 14 days in total of abx - likely w/ rocephin give via RUE PICC 4. acute/chronic diastolic CHF (with acute/chronic right-sided systolic CHF) - acute component appears resolved; resume PO bumex today TSH nl will get her appt with outside auto air conditioning mechanic in 1 weeks willing to have rodriguez exchanged today d/c tomorrow Demetria GIRALDO MD (Lucius Giraldo MD)
[2017-05-01] MEDS ORDERED: GLIMEPIRIDE 2 MG TAB PO ONE (14:00)
[2017-05-01] MEDS: OXYCODONE HCL IR 5 MG TAB (IMMEDIATE RELEASE) PO PRN (14:47)
[2017-05-01 15:34] VITALS: BP 128/74; PULSE 93; TEMP 36.9; O2SAT 97
[2017-05-01] MEDS: SODIUM CHLORIDE 0.9% IV SCH (19:41)
[2017-05-01] MEDS: DAPTOMYCIN IV SCH (19:41)
[2017-05-01 19:56] VITALS: BP 123/69; PULSE 90; TEMP 37.5; O2SAT 91
--- NOTE | 2017-05-01 19:59 | Infectious Disease Progress Nt ---
Progress Note Date of Service May 01, 2017. Subjective Pt evaluation today including: conversation w/ patient, physical exam, chart review, lab review, review of studies, conversation w/ investigations consultant, review of inpatient medication list Patient offering no new complaints today. Remains afebrile. Tolerating antibiotics without apparent difficulty. All Other Systems: Reviewed and Negative Medications Current Inpatient Medications Medications (Trade) Dose Ordered Sig/Bruno Route Start Time Stop Time Status Last Admin Dose Admin Heparin Sodium (Porcine) (Heparin Sq 5000 Unit/0.5ml) 5,000 unit Q12 SQ 04/26/17 21:00 05/26/17 20:59 Acetaminophen (Tylenol Tab) 650 mg Q4H PRN PO 04/26/17 15:00 05/26/17 14:59 05/01/17 10:16 650 MG Al Hydrox/Mg Hydrox/Simethicone (Maalox Max Susp) 15 ml Q4H PRN PO 04/26/17 15:00 05/26/17 14:59 Magnesium Hydroxide (Milk Of Magnesia Susp) 30 ml Q12H PRN PO 04/26/17 15:00 05/26/17 14:59 Ondansetron HCl (Zofran Inj) 4 mg Q6H PRN IV 04/26/17 15:00 05/26/17 14:59 Nitroglycerin (Nitrostat Tab) 0.4 mg UD PRN SL 04/26/17 15:00 05/26/17 14:59 Polyethylene (Miralax Powder Packet) 17 gm DAILY PRN PO 04/26/17 15:00 05/26/17 14:59 Bumetanide 1 mg/ Syringe 4 ml @ 4 mls/min DAILY@0900 IV 04/27/17 09:00 05/27/17 08:59 Future Hold 04/29/17 08:13 4 MLS/MIN Multi-Ingredient Ointment (Eucerin Unscented Cr) 1 appln BID EXT 04/26/17 21:00 05/26/17 20:59 05/01/17 08:41 1 APPLN Daptomycin 440 mg/ Sodium Chloride 58.8 ml @ 120 mls/hr Q24H IV 04/26/17 20:00 05/06/17 19:59 05/01/17 19:41 120 MLS/HR Heparin Sodium (Porcine) (Heparin 10 Unit/ ml 5 ml Flush) 5 ml PRN PRN FLUSH 04/26/17 20:00 05/26/17 19:59 04/29/17 20:59 5 ML Zolpidem Tartrate (Ambien Tab) 5 mg HS PO 04/26/17 21:00 05/26/17 20:59 04/30/17 22:31 5 MG Oxycodone HCl (Roxicodone Immediate Rel Tab) 10 mg Q8 PRN PO 04/28/17 13:15 05/12/17 13:14 05/01/17 14:47 10 MG Heparin Sodium (Porcine) (Heparin 10 Unit/ ml 5 ml Flush) 1 ml UD PRN FLUSH 04/29/17 20:00 05/29/17 19:59 Bumetanide (Bumex Tab) 1 mg QAM PO 05/01/17 09:00 05/31/17 08:59 05/01/17 08:40 1 MG Glimepiride (Amaryl Tab) 2 mg QAM PO 05/02/17 09:00 06/01/17 08:59 Objective Vital Signs Date Time Temp Pulse Resp B/P (MAP) Pulse Ox O2 Delivery O2 Flow Rate FiO2 05/01/17 16:00 Nasal Cannula 4.0 05/01/17 15:34 36.9 93 20 128/74 (92) 97 Nasal Cannula 4.0 05/01/17 12:55 Nasal Cannula 4.0 05/01/17 11:39 36.9 97 18 109/67 (81) 94 4.0 05/01/17 08:10 Nasal Cannula 3.0 05/01/17 07:52 36.6 91 18 122/76 (91) 95 4.0 05/01/17 04:00 Nasal Cannula 3.0 04/30/17 23:59 Nasal Cannula 3.0 04/30/17 22:57 76 96 3.0 04/30/17 20:00 Nasal Cannula 3.0 Physical Exam General Appearance: WD/WN, no apparent distress, + obese Eyes: normal inspection, EOMI, sclerae normal ENT: normal ENT inspection, pharynx normal Neck: supple, no adenopathy, thyroid normal, trachea midline Respiratory/Chest: chest non-tender, lungs clear, normal breath sounds, no respiratory distress Cardiovascular: regular rate, rhythm, no gallop, no murmur Abdomen: normal bowel sounds, non tender, soft, no organomegaly Extremities: non-tender, no calf tenderness Neurologic/Psychiatric: alert, oriented x 3 Skin: normal color, no rash, + pertinent finding ( Sacral and right leg wounds clean without evidence of cellulitis) Lymphatic: no adenopathy Laboratory Results Last 24 Hours Test 05/01/17 07:19 05/01/17 07:42 05/01/17 11:21 05/01/17 16:36 Bedside Glucose 191 mg/dl 263 mg/dl 164 mg/dl Sodium Level 137 mmol/L Potassium Level 5.0 mmol/L Chloride Level 106 mmol/L Carbon Dioxide Level 25 mmol/L Anion Gap 6.0 mmol/L Blood Urea Nitrogen 63 mg/dl Creatinine 1.90 mg/dl Est Creatinine Clear Calc Drug Dose 39.7 ml/min Estimated GFR () 33.1 Estimated GFR (Non- 28.6 BUN/Creatinine Ratio 33.2 Random Glucose 180 mg/dl Calcium Level 8.8 mg/dl Thyroid Stimulating Hormone (TSH) 0.808 uIu/ml Assessment and Plan 48-year-old female with chronic sacral decubitus ulcer, with more recent left leg ulcerations with secondary infection with methicillin sensitive Staph aureus , now with Klebsiella sepsis from urinary tract source. Appears to be improving on ceftriaxone, so will continue, likely for 10-14 days. Will continue to follow.
[2017-05-01] MEDS ORDERED: COUGH DROP (SUGAR FREE) LOZ 24 LOZ/1 BOX PO PRN (21:15)
[2017-05-01] MEDS ORDERED: NURSING DECISION MEDICATION ORDER SCH (21:15)
[2017-05-01] MEDS: CEFTRIAXONE SOD INJ 1 GM in DEXTROSE 5% ADD-VANTAGE 50ML 50 ML IV SCH (22:40)
[2017-05-01] MEDS: ZOLPIDEM TARTRATE 5 MG TAB PO SCH (22:40)
[2017-05-01 22:57] VITALS: O2SAT 95
[2017-05-02] MEDS: OXYCODONE HCL IR 5 MG TAB (IMMEDIATE RELEASE) PO PRN ×2 (01:40→15:07)
[2017-05-02 07:44] VITALS: BP 125/79; PULSE 96; TEMP 36.5; O2SAT 97
[2017-05-02] MEDS: HEPARIN SOD 5000 UNIT/0.5 ML CARP SQ SCH (08:00)
[2017-05-02] MEDS: BUMETANIDE 1 MG TAB PO SCH (08:00)
[2017-05-02] MEDS: EUCERIN CR 120 GM JAR EXT SCH (08:00)
[2017-05-02 08:55] LABS: BUN/CREATININE RATIO 32.1 (10-20); CALCIUM 8.6 mg/dl (8.5-10.1); CREATININE 1.7 mg/dl (0.60-1.20); POTASSIUM 5.2 mmol/L (3.5-5.1)
[2017-05-02] MEDS ORDERED: GLIMEPIRIDE 2 MG TAB PO SCH (09:00)
[2017-05-02] MEDS: ACETAMINOPHEN 325 MG TAB PO PRN (09:38)
[2017-05-02] MEDS ORDERED: OXYC-609 PO (10:38)
[2017-05-02] MEDS ORDERED: AMR2 PO (10:38)
[2017-05-02] MEDS ORDERED: BMX1 PO (10:38)
[2017-05-02] MEDS ORDERED: CEFT1INJ26 IV (10:38)
--- NOTE | 2017-05-02 11:03 | Discharge Instructions ---
Discharge Instructions Date of Service May 02, 2017. Admission Reason for Admission: Congestive Heart Failure, Leg Ulcer Discharge Discharge Diagnosis / Problem: Bacteremia (blood infection) due to urinary tract infection Discharge Goals Goal(s): Decrease discomfort, Improve function, Improve disease control, Learn about illness, Diagnostic testing, Therapeutic intervention, Prevent Disease Progression Activity Recommendations Activity Limitations: resume your previous activity . Instructions / Follow-Up Instructions / Follow-Up You were admitted to the [facility] due to worsening kidney function and body aches chills. During your stay you were treated for: 1. Bacteremia (blood infection) secondary to urinary tract infection- this is being treated with IV Rocephin for a total of 14 days 2. Congestive heart failure- you were treated with IV Bumex and then transitioned to oral Bumex. Changed Medication: Bumex 1 mg by mouth daily 3. Chronic leg ulcer/sacral ulcer- continue IV Daptomycin treatment 4. Hyperkalemia (high potassium)- this was treated with Kayexalate STOP Aldactone You will need your potassium level checked on 05/03- results will be forwarded to your PCP 5. Diabetes: Changed Medications: Glimepiride was changed to 2 mg by mouth once daily 6. Vaginal yeast infection- treated with Diflucan by mouth x 1 New Medications: Diflucan 150 mg by mouth once as needed for yeast infection It is recommended take a probiotic to help the "good" audrey grow in your GI system while on antibiotic therapy. This can be bought [id number]. Take 1 tablet three times a day. Home Health Services will continue wound care and IV antibiotic treatment Continue all other regular home medications as prescribed FOLLOW-UPS: Please follow-up with your PCP within 5-7 days- A referral has been placed; if you do not hear of an appointment in the next 24 hours, please call the office to confirm appointment. Please follow-up with Cardiology- A referral has been placed; if you do not hear of an appointment in the next 24 hours, please call the office to confirm appointment. Follow-up with Dr. Brown on 05/15 Please follow-up/keep all of your subspecialty appointments Call 911 and go to the Emergency Room if: * You have tightness or pain in your chest that does not go away with rest or Nitroglycerin * You are very short of breath even with rest Call your doctor if any of the following symptoms or problems start or get worse: * Shortness of breath or difficulty breathing * Wake up at night short of breath * Chest pain * Cough * Swelling of your hands, fee, or legs * More fatigued or tired with your normal activity * Palpitations - sudden fast heart beats WEIGHT * Weigh yourself every morning after using the bathroom. * Use the same scale. * Wear the same amount of clothing. * Write your weight down on your chart. * Call your doctor if you gain more than 2-3 pounds in 1-2 days. MEDICATIONS * Use this discharge instruction sheet for instructions. * Take your medications at the time your doctor ordered. * Do not skip a dose of your medicines. * If you miss a dose of medicine, take as soon as possible, but DO NOT DOUBLE A DOSE. * Read your medicine information when you get home. * Know all of the side effects of your medicine. * Call your doctor's office if you have any side effects. * Be sure all of your doctors know what medicine and herbs you take (including cold, flu, and herbal medicine). * Pain Medicine: If you do not get relief from your pain, please call your doctor for help. Take the following with you to your follow-up doctor appointments: * Weight Chart * Medication List * List of questions Do not drink excessive alcohol, beer or wine. Current Hospital Diet Patient's current hospital diet: AHA Diet (Heart Healthy), Low Sodium Diet (2gm Na), Diabetes Type 2 Diet Discharge Diet Recommended Diet: AHA Diet (Heart Healthy), Low Sodium Diet (2gm Na), Diabetes Type 2 Diet Pending Studies Studies pending at discharge: no Laboratory Results Hemoglobin A1c Test 03/25/17 06:13 Range/Units Estimated Average Glucose 203 mg/dl Hemoglobin A1c 8.7 H 4.5-5.6 % Lipid Panel Test 03/25/17 06:13 Range/Units Triglycerides Level 127 0-150 mg/dl Cholesterol Level 148 0-200 mg/dl HDL Cholesterol 22 mg/dl Cholesterol/HDL Ratio 6.7 LDL Cholesterol, Calculated 101 mg/dl Medical Emergencies . Who to Call and When: Medical Emergencies: If at any time you feel your situation is an emergency, please call 911 immediately. . Non-Emergent Contact Non-Emergency issues call your: Primary Care Provider Call Non-Emergent contact if: you have a fever, your pain is not controlled, your pain is worsening, your pain is unusual for you, your pain is concerning you, wound has increased drainage, wound has increased redness, wound has increased pain, you have any medication questions . . "Provider Documentation" section prepared by Vidya Conklin. Attending Attestation: Pt seen/examined, and discharge care plan d/w AUSTIN Conklin. I agree with her discharge instructions as outlined. Lucius Giraldo MD . VTE Core Measure Inpt VTE Proph given/why not?: Unfractionated heparin SQ, T.E.D. Stockings, SCD 's
[2017-05-02] MEDS ORDERED: LACT1TAB4 PO (11:07)
[2017-05-02] MEDS ORDERED: FLUC100T4 PO (11:15)
--- NOTE | 2017-05-02 11:21 | Discharge Summary ---
Discharge Summary Date of Service May 02, 2017. (Vidya Conklin, RONDA) Discharge Summary Admission Date: Apr 26, 2017 at 15:10 Discharge Date: May 02, 2017 Discharge Disposition: Home with services Principal Diagnosis: Bacteremia from UTI Problems/Secondary Diagnoses: Decompensated R CHF Hyperkalemia R leg ulcer/sacral ulcer Bacteremia secondary to UTI, likely from chronic Rodriguez COPD without exacerbation ELIZABETH on CKD stage III-IV Hyponatremia Chronic anemia T2DM Vaginal yeast infection ROHAN Tobacco Abuse Procedures: CHEST ONE VIEW PORTABLE CLINICAL HISTORY: Shortness of breath COMPARISON STUDY: 03/24/2017 FINDINGS: The heart remains enlarged. There is a right-sided catheter the tip of which projects over the superior vena cava. There is stable hilar prominence. There is persistent interstitial thickening. This may indicate mild pulmonary vascular congestion.[ IMPRESSION: Cardiomegaly and stable mild interstitial thickening/edema. No evidence of focal pulmonary consolidation. Electronically signed by: Tima Sorensen M.D. 04/26/2017 1:44 PM Dictated Date/Time: 04/26/2017 1:42 PM The status of this report is Signed. Draft = Not yet reviewed or approved by Radiologist. Signed = Reviewed and approved by Radiologist ABD/PELVIS WITHOUT FOR STONE CLINICAL HISTORY: 56 years-old Female presenting with complicated renal stone, UTI, hydronephrosis. TECHNIQUE: Multidetector CT of the abdomen and pelvis was performed without the use of intravenous contrast. IV contrast: None. A dose lowering technique was used consistent with the principles of ALARA (as low as reasonably achievable). COMPARISON: 04/26/2014. CT DOSE (mGy.cm): The estimated cumulative dose is 1782.00 mGy.cm. FINDINGS: B[employer] topogram: Unremarkable. Lung bases: Suggestion of emphysema. Additionally, the pulmonary arteries are dilated relative to their associated bronchi/bronchioles likely indicating elevated pulmonary hypertension. Bandlike opacities at the left lung base likely atelectasis. Multichamber enlargement of the heart. No pericardial pleural effusion. Liver: The inferior undersurface of the right hepatic lobe is somewhat nodular in appearance. No liver lesion. Dilated hepatic veins likely indicate elevated right heart pressure. Biliary: No intrahepatic or extrahepatic biliary ductal dilatation. Gallbladder contains gallstones. Pancreas: Mild parenchymal atrophy. Spleen: Normal. Adrenal glands: 10 mm nodule in the lateral limb of the left adrenal gland, which is indeterminate by density (14-16 Hounsfield units). Kidneys and ureters: Bilateral perinephric fat stranding, nonspecific. No renal calculi. No hydronephrosis. Ureters normal. Bladder: Decompressed with a Rodriguez catheter. Pelvic organs: Uterus and ovaries normal. Bowel: Moderate stool burden in the rectum. No rectal wall thickening or perirectal inflammatory change. Limited diverticulosis in the distal sigmoid colon. Mild stool burden noted elsewhere throughout the colon. Normal appendix. No bowel obstruction. Mildly distended stomach. Peritoneal cavity: Mild infiltration of the small bowel mesentery, nonspecific but possibly indicating mesenteric panniculitis. No free fluid or gas. Vasculature: Atherosclerosis of the normal caliber abdominal aorta. Infrarenal IVC filter in place. Lymph nodes: Scattered prominent upper abdominal lymph nodes, which are subcentimeter, possibly reactive. Abdominal wall: Ventral hernia in the lower abdomen containing fat and small bowel with a wide neck. Fat-containing umbilical hernia. Infiltration of the subcutaneous tissue of the pannus with associated skin thickening. This is new from prior exam. Musculoskeletal: Muscular atrophy noted in the proximal lower extremities. Severe bilateral degenerative change of the hip joints. Degenerative changes of the spine and sacroiliac joints. Mild osteopenia suggested. IMPRESSION: 1. Nonspecific bilateral perinephric fat stranding. This can be a normal variant in the older patient population as well as secondary to aggressive volume resuscitation or infection/inflammation. No hydronephrosis or renal calculi. 2. Evaluation of the bladder is limited due to decompression with the Rodriguez catheter. 3. Indeterminate 10 mm nodule in the lateral limb of the left adrenal gland. If there is clinical concern, dedicated adrenal protocol CT or MR could be obtained. 4. Mild stool burden most pronounced in the rectum. 5. Infiltration of the subcutaneous tissue of the pannus with associated skin thickening is concerning for cellulitis. Correlate clinically. Electronically signed by: Garett Aguilera M.D. 04/29/2017 2:05 PM Dictated Date/Time: 04/29/2017 1:54 PM The status of this report is Signed. Draft = Not yet reviewed or approved by Radiologist. Signed = Reviewed and approved by Radiologist. Consultations: Infectious disease (Vidya Conklin, RONDA) Problems/Secondary Diagnoses: acute/chronic right-sided CHF (acute/chronic cor pulmonale) morbid obesity with BMI 38 (Lucius Giraldo MD) Medication Reconciliation New Medications: Ceftriaxone Sodium (Rocephin) 1 Gm Inj 1 GM IV DAILY for 14 Days Fluconazole (Diflucan) 100 Mg Tab 150 MG PO DAILY PRN for PRN, #1 TAB Lactobacillus (Floranex) 1 Tab Tab 1 TAB PO TID for 30 Days Bumetanide (Bumetanide) 1 Mg Tab 1 MG PO QAM for 30 Days, #30 TAB Glimepiride (Glimepiride) 2 Mg Tab 2 MG PO QAM for 30 Days, #30 TAB Continued Medications: Daptomycin (Cubicin) 500 Mg Yudy Eucerin (Hydrocerin) 360 Appln/120 Gm Cr 1 APPLN EXT BID for 30 Days Home O2 Therapy (Oxygen) Gas 3 LITERS NA CONTINOUS, BTL Levocetirizine Dihydrochloride (Levocetirizine Dihydrochl) 5 Mg Tab 0.5 MG PO DAILY PRN for Itching for 30 Days, #30 TAB 3 Refills Oxycodone HCl (Oxycodone HCl) 5 Mg Tab 10 MG PO Q8 PRN for Pain for 3 Days, #18 TABS (This prescription has been renewed) Zolpidem Tartrate (Ambien) 5 Mg Tab 1 TAB PO HS for 30 Days, #30 TAB 2 Refills Discontinued Medications: Bumetanide (Bumetanide) 1 Mg Tab 0.5 MG PO DAILY for 30 Days, #30 TAB Fluconazole (Diflucan) 100 Mg Tab 100 MG PO DAILY for 30 Days, #30 TAB 2 Refills Glimepiride (Amaryl) 4 Mg Tab 4 MG PO BID, TAB Spironolactone (Aldactone) 25 Mg Tab 50 MG PO BID, TAB Discharge Exam Review of Systems: Constitutional: No fever, No chills, No sweats, No weakness, No fatigue Respiratory: No cough, No sputum, No shortness of breath, No hemoptysis Cardiovascular: No chest pain, No edema, No palpitations Abdomen: No pain, No nausea, No vomiting, No diarrhea, No constipation Musculoskeletal: No joint pain, No muscle pain, No swelling, No calf pain Genitourinary - Female: No hematuria Neurologic: No weakness, No numbness/tingling Psychiatric: No depression symptoms, No anxiety Hematologic / Lymphatic: No abnormal bleeding/bruising Integumentary: No rash, No itch, No new/changing skin lesions Physical Exam: General Appearance: no apparent distress, + obese, + pertinent finding (O2 NC) Eyes: normal inspection, PERRL ENT: hearing grossly normal Neck: supple Respiratory/Chest: lungs clear, no respiratory distress, no accessory muscle use, + decreased breath sounds Cardiovascular: regular rate, rhythm Abdomen / GI: normal bowel sounds, non tender, soft Extremities: no calf tenderness, no pedal edema, + pertinent finding ( chronic venous stasis changes to bilateral lower extremities ) Neurologic/Psychiatric: alert, oriented x 3 Skin: normal color, warm/dry, no rash (Vidya Conklin, RONDA) Hospital Course Admission H&P: Patient is a 56 y/o female, with PMHx of COPD on chronic 3L O2, cor pulmonale, R -sided CHF, T2DM, chronic R leg ulcer, sacral ulcer, CKD stage III-IV, chronic anemia, indwelling Rodriguez catheter, h/o DVT w/ IVC filter placement, who presented to the ED per Dr. Brown's recommendations due to kidney function. Patient follows w/ Dr. Brown for continued wound care. She is currently on Daptomycin. However, patient quit taking all of her medications last Saturday. When asking her why, she states she started to develop generalized chills and thought it was due to the Daptomycin. She also follows w/ wound care- last wound change on 04/24. Wound is MRSA positive. Additionally, she quit taking Bumex because she did not feel it was helping and having little UO. Patient has chronic Rodriguez due to sacral ulcer. She states it gets changed every 30 days and she believes it is about time for it to be changed. She was most recently admitted to [facility] at the beginning of March due to decompensated CHF- her Lasix was changed to Bumex. +increase in lower extremity edema. Patient denies any fever, sweats, lightheadedness, dizziness, vision changes, CP, palpitations, SOB , wheezing, cough, abdominal pain, nausea, vomiting, diarrhea, urinary symptoms , melena, numbness/tingling, weakness, muscle/joint pain, anxiety/depression, active bleeding, or new skin discoloration/changes. Physical Exam Vital Signs Date Time Temp Pulse Resp B/P (MAP) Pulse Ox O2 Delivery O2 Flow Rate FiO2 04/26/17 14:01 36.7 82 18 141/65 99 Nasal Cannula 3.0 04/26/17 13:29 93 Nasal Cannula 3.0 04/26/17 12:50 84 04/26/17 12:43 Nasal Cannula 3.0 04/26/17 12:36 93 Nasal Cannula 3.0 04/26/17 12:11 36.8 80 24 92 Nasal Cannula 3.0 General Appearance: + mild distress (generalized chills ), + obese, + pertinent finding (3L O2 NC) Eyes: normal inspection, PERRL ENT: hearing grossly normal Neck: supple Respiratory/Chest: no respiratory distress, no accessory muscle use, + decreased breath sounds Cardiovascular: regular rate, rhythm, + systolic murmur Abdomen/GI: normal bowel sounds, non tender, soft Back: normal inspection Extremities/Musculoskelatal: no calf tenderness, + swelling (+1 pitting edema to bilateral lower extremities ), + pertinent finding (bilateral chronic stasis dermatitis changes; noted proximal anterior R vega wound with bandage in place ) Neurologic/Psych: alert, normal mood/affect, oriented x 3 Skin: normal color, warm/dry, no rash Hospital Course: Decompensated R CHF- RESOLVED: - IV 1 mg Bumex daily; hold Bumex 1 mg daily -- Treated 04/26-04/29--> d/c'd due to Cr 2.6 - Cr. improved to 2.1 on 04/30- Bumex 1 mg PO daily - Monitor I&O's and daily weights - Stop Aldactone due to hyperkalemia Hyperkalemia, secondary to ELIZABETH/CKD- RESOLVED: - Stop Aldactone 50 mg BID - Failed IV Bumex treatment - Treated w/ Kayexalate 15 gm and 30 gm - On tele for cardiac monitoring- no acute events - Follow K level- 5.2 at discharge, script given for repeat K on 05/03 R leg ulcer/sacral ulcer- follows w/ Dr. Brown: - Consult ID- continue IV Daptomycin- continue outpatient follow-up - Wound care consulted- continue outpatient follow-up Bacteremia secondary to UTI, likely from chronic Rodriguez- IMPROVING: - IV Rocephin x14 days- last day of treatment 05/13 - BCx growing Klebsiella pneumoniae- repeat BCx NGTD - Leukocytosis- RESOLVED - Rodriguez changed prior to discharge - Probiotic at discharge while on antibiotic therapy COPD without exacerbation: O2 protocol, wean as tolerated- wears 3L O2 24/7 ELIZABETH on CKD stage III-IV, baseline Cr 1.6-2.0, like secondary to IV diuresis- RESOLVED: - Stop IV Bumex treatment - Abdominal CT scan- no kidney stones/hydronephrosis - Follow PRP Hyponatremia at 132, likely secondary to diuresis- RESOLVED: IV Bumex d/c'd, follow PRP Chronic anemia, ?secondary to CKD- STABLE: Follow CBC T2DM, HgbA1C 8.7% on 03/25: - Glimepiride 2 mg daily - BSG BID- refusing glucose checks and sliding insulin scale Vaginal yeast infection: Diflucan 150 mg PO x1 dose prior to discharge ROHAN: CPAP HS- discussed importance of compliance Tobacco Abuse: Smoking cessation counselling DVT prophylaxis: Heparin SQ BID Code Status: LEVEL I, FULL Dispo: Discharge to home w/ [facility] Total Time Spent: Greater than 30 minutes This includes examination of the patient, discharge planning, medication reconciliation, and communication with other providers. (Vidya Conklin ., PA-C) Attending Discharge Note & Attestation: Pt seen/examined, chart reviewed, discharge care plan d/w AUSTIN Conklin. I agree w/ the danielson components of her discharge summary. 56yo female with chronic hypoxic respiratory failure, COPD, chronic cor pulmonale, CKD, and chronic rodriguez who presented from Dr. Brown's office due to elevated creatinine. She also hadn't been feeling well. She had evidence of UTI, acute kidney injury , hyperkalemia, and acute/chronic right-sided CHF at time of admission. Over the next 48 hours her blood and urine cultures were all positive for klebsiella; thus, she had septicemia/bacteremia 2nd to complicated UTI. CT abd/pelvis failed to show any complicating renal stone. Although the study suggested possible cellulitis of the pannus she had no clinical evidence of panniculitis. She improved clinically with IV antibiotic therapy and repeat blood cultures returned negative later in her stay. Her hyperkalemia, right-sided CHF, and acute kidney injury were managed with supportive care. At discharge she will complete a course of IV rocephin via RUE PICC line for her septicemia/UTI. She will continue on IV daptomycin for chronic wounds (under the guidance of Dr. Jake Brown). She is a high risk for readmission due to noncompliance with medications, her DM regimen, etc. On day of discharge her creatinine improved to 1.7 and potassium was 5.2. She will have a follow-up BMP in 24 hours after discharge. If K is still high she may need additional kayexalate. Her K was high due to acute kidney injury as well as recent aldactone use prior to this hospital stay. The aldactone has been DISCONTINUED. Discharge exam - gen - NAD, morbidly obese neck - no JVD mouth - no thrush heart - RRR, s1, s2, 2/6 systolic murmur LLSB lungs - scant rales bases abd - obese, soft, umbilical hernia present and reducible, BS+ ext - trace-1+ edema b/l, pulses 2+ b/l skin - RUE PICC line clean; ulcer present on heel of right foot - mild drainage , no surrounding cellulitis Lucius Giraldo MD (Lucius Giraldo MD) Discharge Instructions Please refer to the electronic Patient Visit Report (Discharge Instructions) for additional information. (Vidya Conklin ., PA-C) Follow-Up Please follow-up with your PCP within 5-7 days Please follow-up/keep all of your subspecialty appointments (Vidya Conklin, PA-C) Dr. Brown [place] - PCP - in [place] on SaturdayMay 14 at 1:00 PM [facility] - Dr. Tiffanie Fernandez - first available appointment in the next 1-2 weeks (Lucius Giraldo MD)
[2017-05-02 11:33] VITALS: BP 106/57; PULSE 87; TEMP 36.7; O2SAT 93
[2017-05-02] MEDS ORDERED: FLUCONAZOLE 50 MG TAB PO ONE (11:45)
--- NOTE | 2017-05-02 13:07 | Infectious Disease Progress Nt ---
Progress Note Date of Service May 02, 2017. Subjective Pt evaluation today including: conversation w/ patient, physical exam, chart review, lab review, review of studies, conversation w/ cassandra consultant, review of inpatient medication list No new complaints. Remains afebrile. Tolerating ceftriaxone. All Other Systems: Reviewed and Negative Medications Current Inpatient Medications Medications (Trade) Dose Ordered Sig/Bruno Route Start Time Stop Time Status Last Admin Dose Admin Heparin Sodium (Porcine) (Heparin Sq 5000 Unit/0.5ml) 5,000 unit Q12 SQ 04/26/17 21:00 05/26/17 20:59 Acetaminophen (Tylenol Tab) 650 mg Q4H PRN PO 04/26/17 15:00 05/26/17 14:59 05/02/17 09:38 650 MG Al Hydrox/Mg Hydrox/Simethicone (Maalox Max Susp) 15 ml Q4H PRN PO 04/26/17 15:00 05/26/17 14:59 Magnesium Hydroxide (Milk Of Magnesia Susp) 30 ml Q12H PRN PO 04/26/17 15:00 05/26/17 14:59 Ondansetron HCl (Zofran Inj) 4 mg Q6H PRN IV 04/26/17 15:00 05/26/17 14:59 Nitroglycerin (Nitrostat Tab) 0.4 mg UD PRN SL 04/26/17 15:00 05/26/17 14:59 Polyethylene (Miralax Powder Packet) 17 gm DAILY PRN PO 04/26/17 15:00 05/26/17 14:59 Bumetanide 1 mg/ Syringe 4 ml @ 4 mls/min DAILY@0900 IV 04/27/17 09:00 05/27/17 08:59 Future Hold 04/29/17 08:13 4 MLS/MIN Multi-Ingredient Ointment (Eucerin Unscented Cr) 1 appln BID EXT 04/26/17 21:00 05/26/17 20:59 05/01/17 08:41 1 APPLN Daptomycin 440 mg/ Sodium Chloride 58.8 ml @ 120 mls/hr Q24H IV 04/26/17 20:00 05/06/17 19:59 05/01/17 19:41 120 MLS/HR Heparin Sodium (Porcine) (Heparin 10 Unit/ ml 5 ml Flush) 5 ml PRN PRN FLUSH 04/26/17 20:00 05/26/17 19:59 04/29/17 20:59 5 ML Zolpidem Tartrate (Ambien Tab) 5 mg HS PO 04/26/17 21:00 05/26/17 20:59 05/01/17 22:40 5 MG Oxycodone HCl (Roxicodone Immediate Rel Tab) 10 mg Q8 PRN PO 04/28/17 13:15 05/12/17 13:14 05/02/17 01:40 5 MG Heparin Sodium (Porcine) (Heparin 10 Unit/ ml 5 ml Flush) 1 ml UD PRN FLUSH 04/29/17 20:00 05/29/17 19:59 Bumetanide (Bumex Tab) 1 mg QAM PO 05/01/17 09:00 05/31/17 08:59 05/02/17 08:00 1 MG Glimepiride (Amaryl Tab) 2 mg QAM PO 05/02/17 09:00 06/01/17 08:59 05/02/17 07:59 2 MG Menthol (Nice Umberto) 1 umberto PRN PRN PO 05/01/17 21:15 05/31/17 21:14 Ceftriaxone Sodium 1 gm/ Dextrose 50 ml @ 100 mls/hr DAILY@2200 IV 05/01/17 22:30 05/11/17 22:29 05/01/17 22:40 100 MLS/HR Objective Vital Signs Date Time Temp Pulse Resp B/P (MAP) Pulse Ox O2 Delivery O2 Flow Rate FiO2 05/02/17 12:00 Nasal Cannula 4.0 05/02/17 11:33 36.7 87 18 106/57 (73) 93 4.0 05/02/17 08:00 Nasal Cannula 4.0 05/02/17 07:44 36.5 96 18 125/79 (94) 97 4.0 05/01/17 22:57 95 3.0 05/01/17 20:00 Nasal Cannula 4.0 05/01/17 19:56 37.5 90 20 123/69 (87) 91 Nasal Cannula 4.0 05/01/17 16:00 Nasal Cannula 4.0 05/01/17 15:34 36.9 93 20 128/74 (92) 97 Nasal Cannula 4.0 Physical Exam General Appearance: WD/WN, no apparent distress, + obese Eyes: normal inspection, sclerae normal ENT: normal ENT inspection, pharynx normal Neck: supple, no adenopathy, trachea midline Respiratory/Chest: chest non-tender, lungs clear, normal breath sounds, no respiratory distress Cardiovascular: regular rate, rhythm, no gallop, no murmur Abdomen: normal bowel sounds, non tender, soft, no organomegaly Extremities: non-tender, no calf tenderness Neurologic/Psychiatric: alert, oriented x 3 Skin: normal color, no rash Lymphatic: no adenopathy Laboratory Results Last 24 Hours Test 05/01/17 16:36 05/02/17 07:59 05/02/17 11:24 Bedside Glucose 164 mg/dl 141 mg/dl Sodium Level 136 mmol/L Potassium Level 5.2 mmol/L Chloride Level 104 mmol/L Carbon Dioxide Level 27 mmol/L Anion Gap 5.0 mmol/L Blood Urea Nitrogen 55 mg/dl Creatinine 1.70 mg/dl Est Creatinine Clear Calc Drug Dose 44.6 ml/min Estimated GFR () 37.9 Estimated GFR (Non- 32.7 BUN/Creatinine Ratio 32.1 Random Glucose 135 mg/dl Calcium Level 8.6 mg/dl Assessment and Plan 48-year-old female with chronic sacral decubitus ulcer, with more recent left leg ulcerations with secondary infection with methicillin sensitive Staph aureus , now with Klebsiella sepsis from urinary tract source. Appears to be improving on ceftriaxone, so will continue for [address] [facility].
[2017-05-02] MEDS: CEFTRIAXONE SOD INJ 1 GM in DEXTROSE 5% ADD-VANTAGE 50ML 50 ML IV SCH (13:25)
[2017-05-02 13:35] VITALS: BP 106/57; PULSE 87; TEMP 36.7; O2SAT 93
[2017-05-02] MEDS: SODIUM CHLORIDE 0.9% IV SCH (14:05)
[2017-05-02] MEDS: DAPTOMYCIN IV SCH (14:05)
[2017-05-30] MEDS ORDERED: BUME1TAB PO (13:05)
[2017-05-30] MEDS ORDERED: SPIR25TA PO (13:05)
== END 2017-05-02 15:28 | disposition home health service (06) | DRG 291 ==
LOC: C.EDB 12:07 → C.MS2W 15:10 → EDBEDREQ 15:27 → ENRESERV 15:34 → EDBEDREQ 04-29 12:19 → ENRESERV 04-29 13:49 → C.2T 04-29 14:51 → CANBEDREQ 05-01 14:22
PROVIDERS: ADMIT Family Medicine; ATTEND Internal Medicine
DX: I50.31 Acute diastolic (congestive) heart failure (principal); L89.154 Pressure ulcer of sacral region, stage 4; N18.4 Chronic kidney disease, stage 4 (severe); L97.919 Non-pressure chronic ulcer of unspecified part of right lower leg with unspecified severity; T83.511A Infection and inflammatory reaction due to indwelling urethral catheter, initial encounter; F17.200 Nicotine dependence, unspecified, uncomplicated; E11.9 Type 2 diabetes mellitus without complications; E87.5 Hyperkalemia; G47.33 Obstructive sleep apnea (adult) (pediatric); B37.9 Candidiasis, unspecified; Z99.81 Dependence on supplemental oxygen; Y84.6 Urinary catheterization as the cause of abnormal reaction of the patient, or of later complication, without mention of misadventure at the time of the procedure

== ENCOUNTER 2017-06-25 12:43 | Inpatient (IN) | payer OTHER ==
[~2017-06-25] VITALS: Ht 167.6 cm; Wt 108.1 kg
[~2017-06-25 12:43] MED LIST changes: +AMR2 PO; +BUME1TAB PO; -CBCI; -FLUC100T4 PO; -GLIM4TAB PO
[2017-06-25] MEDS ORDERED: DAPTOmycin IV 500 MG in SYRINGE 0 ML IV SCH (13:09)
[2017-06-25] MEDS ORDERED: DAPTOmycin IV 500 MG in SODIUM CHLORIDE 0.9% 50ML 50 ML IV STA (13:09)
--- NOTE | 2017-06-25 13:25 | EMERGENCY ROOM VISIT NOTE ---
History Report prepared by Jarrell: Dolores Singh Under the Supervision of: Dr. Carlyle Burroughs M.D. 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 The patient was recently in the hospital for fluid buildup in her abdomen and legs. She had IV Lasix and antibiotics at that time through a PICC line. She states that slowly her fluid has been improving but she still feels very full. She is on Bumex and restarted spironolactone and metolazone recently. The patient also follows-up with the wound care clinic. She had cultures of the wounds on her legs done on 06/19/17 that grew out MRSA. The patient's infectious disease doctor called her today with the results of her cultures and told her to come to the ED for further evaluation. She is not currently feeling short of breath. She is not on any oral antibiotics at this time. She rates her discomfort as an 8/10 in severity. The patient is on 3L of O2 at all times and is on BiPAP at night. 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 A total of 10 systems reviewed and were otherwise negative. Past Medical & Surgical Medical Problems: (1) Acute respiratory failure (2) CHF (congestive heart failure) (3) Chills (4) Femur fracture, left (5) Hyponatremia (6) Leg swelling (7) Leg ulcer (8) Leukocytosis (9) MRSA (methicillin resistant Staphylococcus aureus) infection (10) Sacral decubitus ulcer, stage IV Family History No pertinent family history Social History Smoking Status: Current Some Day Smoker Drug Use: none Marital Status: single Occupation Status: disabled Current/Historical Medications Scheduled Bumetanide (Bumetanide), 1 MG PO QAM Bumetanide (Bumex), 1 TAB PO BID Eucerin (Hydrocerin), 1 APPLN EXT BID Glimepiride (Glimepiride), 2 MG PO QAM Home O2 Therapy (Oxygen), 3 LITERS NA CONTINOUS Spironolactone (Aldactone), 25 MG PO QD Zolpidem Tartrate (Ambien), 1 TAB PO HS Scheduled PRN Levocetirizine Dihydrochloride (Levocetirizine Dihydrochl), 0.5 MG PO DAILY PRN for Itching Oxycodone HCl (Oxycodone HCl), 10 MG PO Q8 PRN for Pain Allergies Coded Allergies: Vancomycin (Verified Allergy, Severe, ANAPHYLAXIS, 03/24/17) pt began shaking,face and neck bright red rash.o2 saturation dropping to 84% on 15lnrb Ampicillin (Verified Allergy, Mild, RASH, 03/24/17) Clindamycin (Verified Allergy, Mild, RASH, 03/24/17) Linezolid (Verified Allergy, Mild, RASH, 03/24/17) Penicillins (Verified Allergy, Mild, RASH, 03/24/17) Ciprofloxacin (Verified Adverse Reaction, Mild, MUSCLE ACHES, 03/24/17) muscle aches Methimazole (Verified Adverse Reaction, Mild, headache, 03/24/17) headache Nystatin (Verified Adverse Reaction, Mild, nausea, abd pain, kidney pain, 03/24/17) nausea, abd pain,kidney pain Physical Exam Vital Signs Date Time Temp Pulse Resp B/P (MAP) Pulse Ox O2 Delivery O2 Flow Rate FiO2 06/25/17 12:57 37.2 106 24 126/76 87 Nasal Cannula 3.0 Physical Exam GENERAL: Patient is in no acute distress. HEENT: No acute trauma, normocephalic atraumatic, mucous membranes moist, no nasal congestion, no scleral icterus. NECK: No stridor, no adenopathy, no meningismus, trachea is midline. LUNGS: Crackles bilaterally, no wheezing or rhonchi. HEART: Tachycardia with a 2/6 systolic murmur and regular rhythm. ABDOMEN: Soft, nontender, bowel sounds positive, no hernias, no peritonitis. EXTREMITIES: Erythema from the knees to the feet bilaterally--worse on the right , there is edema. There are blisters that have opened, there is some clear fluid leaking from the blistered areas. There is some warmth present worse on the right. NEUROLOGIC: Oriented x 3, no acute motor or sensory deficits, no focal weakness. SKIN: No rash, no jaundice, no diaphoresis. Medical Decision & Procedures ER Provider Diagnostic Interpretation: Radiology results as stated below per my review and radiologist interpretation: CHEST ONE VIEW PORTABLE CLINICAL HISTORY: 57 years-old Female presenting with EVALUATE RESPIRATORY DISTRESS.DYSPNEA. TECHNIQUE: Portable upright AP view of the chest was obtained. COMPARISON: 04/26/2017. FINDINGS: Atherosclerosis of aortic arch. Cardiac silhouette enlarged, stable to slightly decreased from prior. Prominence of pulmonary vasculature is also stable to slightly decreased from prior. Diffusely coarsened lung markings unchanged. No new focal infiltrate. No large effusion or pneumothorax. Degenerative changes of the thoracic spine. Upper abdomen normal. IMPRESSION: 1. Cardiomegaly with suggestion of mild volume overload stable to slightly decreased from prior. No esther pulmonary edema or new focal infiltrate. 2. Coarsened lung markings could be secondary to volume overload. Electronically signed by: Garett Aguilera M.D. 06/25/2017 1:34 PM Dictated Date/Time: 06/25/2017 1:32 PM Laboratory Results 06/25/17 13:31 Red Blood Count 4.27, Mean Corpuscular Volume 72.4, Mean Corpuscular Hemoglobin 21.3, Mean Corpuscular Hemoglobin Concent 29.4, Mean Platelet Volume 9.3, Neutrophils (%) (Auto) 79.7, Lymphocytes (%) (Auto) 12.0, Monocytes (%) (Auto) 7.0, Eosinophils (%) (Auto) 0.8, Basophils (%) (Auto) 0.3, Neutrophils # (Auto) 9.00, Lymphocytes # (Auto) 1.36, Monocytes # (Auto) 0.79, Eosinophils # (Auto) 0.09, Basophils # (Auto) 0.03 06/25/17 13:31 Test 06/25/17 13:31 White Blood Count 11.29 K/uL (4.8-10.8) Red Blood Count 4.27 M/uL (4.2-5.4) Hemoglobin 9.1 g/dL (12.0-16.0) Hematocrit 30.9 % (37-47) Mean Corpuscular Volume 72.4 fL (80-100) Mean Corpuscular Hemoglobin 21.3 pg (25-34) Mean Corpuscular Hemoglobin Concent 29.4 g/dl (32-36) Platelet Count 279 K/uL (130-400) Mean Platelet Volume 9.3 fL (7.4-10.4) Neutrophils (%) (Auto) 79.7 % Lymphocytes (%) (Auto) 12.0 % Monocytes (%) (Auto) 7.0 % Eosinophils (%) (Auto) 0.8 % Basophils (%) (Auto) 0.3 % Neutrophils # (Auto) 9.00 K/uL (1.4-6.5) Lymphocytes # (Auto) 1.36 K/uL (1.2-3.4) Monocytes # (Auto) 0.79 K/uL (0.11-0.59) Eosinophils # (Auto) 0.09 K/uL (0-0.5) Basophils # (Auto) 0.03 K/uL (0-0.2) RDW Standard Deviation 50.7 fL (36.4-46.3) RDW Coefficient of Variation 19.1 % (11.5-14.5) Immature Granulocyte % (Auto) 0.2 % Immature Granulocyte # (Auto) 0.02 K/uL (0.00-0.02) Toxic Granulation 1+ Toxic Vacuolation 1+ Hypochromasia PRESENT Anisocytosis PRESENT Microcytosis PRESENT Ovalocytes 1+ Prothrombin Time 13.3 SECONDS (9.0-12.0) Prothromb Time International Ratio 1.2 (0.9-1.1) Activated Partial Thromboplast Time 28.5 SECONDS (21.0-31.0) Partial Thromboplastin Ratio 1.1 Anion Gap 8.0 mmol/L (3-11) Estimated GFR () 24.8 Estimated GFR (Non- 21.4 BUN/Creatinine Ratio 36.5 (10-20) Lactic Acid Level 1.1 mmol/L (0.4-2.0) Calcium Level 9.1 mg/dl (8.5-10.1) Total Bilirubin 0.5 mg/dl (0.2-1) Aspartate Amino Transf (AST/SGOT) 8 U/L (15-37) Alanine Aminotransferase (ALT/SGPT) 11 U/L (12-78) Alkaline Phosphatase 92 U/L (45-117) Troponin I 0.017 ng/ml (0-0.045) Pro-B-Type Natriuretic Peptide 8024 pg/ml (0-900) Total Protein 7.8 gm/dl (6.4-8.2) Albumin 3.0 gm/dl (3.4-5.0) Globulin 4.8 gm/dl (2.5-4.0) Albumin/Globulin Ratio 0.6 (0.9-2) Laboratory results reviewed by me. ECG Indication: other Rate (beats per minute): 82 Rhythm: normal sinus Findings: no acute ischemic change, no ectopy, other (baseline artifact) ED Course 1304: The patient was evaluated in room A2. A complete history and physical exam was performed. 1309: Daptomycin 500 mg IV 1338: I spoke with Dr. Mora. We discussed the patient's case. The patient will be evaluated by the [facility] for further management. 1340: I reassessed the patient at this time. She is feeling better and resting comfortably. I discussed the results and treatment plan with the patient. I answered all pertaining questions that she had. She expressed understanding and verbalized agreement. Medical Decision The patient is a 57 year old female who presents to the ED with complaints of an infection. Differential diagnoses considered include CHF, fluid overload, cellulitis, bacteremia, sepsis, pneumonia, failed outpatient treatment. There is a mild leukocytosis which could be consistent with infection. The patient is anemic but this appears baseline. There is evidence for some acute on chronic renal failure. No significant electrolyte abnormality requiring correction. No hepatitis. Lactic acid level is not elevated making sepsis less likely. Blood cultures are pending. BNP is elevated consistent with fluid overload. Chest x-ray shows some chronic pulmonary congestion, no acute CHF or acute pneumonia seen. EKG shows a sinus rhythm, no acute ischemia. Cardiac enzyme testing 1 is not consistent with acute cardiac injury. Wound culture from June 19 does show MRSA. The patient requires a hospital stay for IV diuresis and IV antibiotic therapy. She has multiple allergies. She was given a dose of IV daptomycin as antibiotic coverage. She had already taken Bumex today so no additional diuretic was given in the ED. I talked to the patient, I talked to the lead case manager. The on-call hospitalist was consulted. Medication Reconcilliation Current Medication List: was personally reviewed by me Blood Pressure Screening Patient's blood pressure: Normal blood pressure Consults Time Called: 1335 Consulting Physician: Dr. Mora Returned Call: [address] Mora. We discussed the patient's case. The patient will be evaluated by the [facility] for further management. Impression Primary Impression: Cellulitis Additional Impressions: MRSA (methicillin resistant Staphylococcus aureus) infection Fluid overload Acute renal failure Scribe Attestation The scribe's documentation has been prepared under my direction and personally reviewed by me in its entirety. I confirm that the note above accurately reflects all work, treatment, procedures, and medical decision making performed by me. Departure Information Dispostion Being Evaluated By Hospitalist Referrals No Doctor, Assigned (PCP) Patient Instructions My [facility] Problem Qualifiers Primary Impression: Cellulitis
--- NOTE | 2017-06-25 13:36 | DIAGNOSTIC IMAGING REPORT ---
CHEST ONE VIEW PORTABLE CLINICAL HISTORY: 57 years-old Female presenting with EVALUATE RESPIRATORY DISTRESS.DYSPNEA. TECHNIQUE: Portable upright AP view of the chest was obtained. COMPARISON: 04/26/2017. FINDINGS: Atherosclerosis of aortic arch. Cardiac silhouette enlarged, stable to slightly decreased from prior. Prominence of pulmonary vasculature is also stable to slightly decreased from prior. Diffusely coarsened lung markings unchanged. No new focal infiltrate. No large effusion or pneumothorax. Degenerative changes of the thoracic spine. Upper abdomen normal. IMPRESSION: 1. Cardiomegaly with suggestion of mild volume overload stable to slightly decreased from prior. No esther pulmonary edema or new focal infiltrate. 2. Coarsened lung markings could be secondary to volume overload. Electronically signed by: Garett Aguilera M.D. 06/25/2017 1:34 PM Dictated Date/Time: 06/25/2017 1:32 PM
[2017-06-25 13:50] LABS: BASO % 0.3 %; BASO ABS # 0.03 K/uL (0-0.2); EOS % 0.8 %; EOS ABS # 0.09 K/uL (0-0.5); HEMATOCRIT 30.9 % (37-47); HEMOGLOBIN 9.1 g/dL (12.0-16.0); IG# 0.02 K/uL (0.00-0.02); LYMPH ABS # 1.36 K/uL (1.2-3.4); MEAN CELL VOLUME 72.4 fL (80-100); MEAN CORPUSCULAR HEMOGLOBIN 21.3 pg (25-34); MEAN CORPUSCULAR HGB CONC 29.4 g/dl (32-36); MEAN PLATELET VOLUME 9.3 fL (7.4-10.4); MONO ABS # 0.79 K/uL (0.11-0.59); NEUT % 79.7 %; PLATELET COUNT 279 K/uL (130-400); RED CELL DISTRIBUTION WIDTH CV 19.1 % (11.5-14.5); RED CELL DISTRIBUTION WIDTH SD 50.7 fL (36.4-46.3); WHITE BLOOD COUNT 11.29 K/uL (4.8-10.8)
--- NOTE | 2017-06-25 13:56 | History and Physical ---
History & Physical Date & Time of Service: Jun 25, 2017 at 13:45 Chief Complaint: Fluid, Infection Primary Care Physician: No Doctor, Assigned History of Present Illness Source: patient This is a 57 yo F with PMHx of Decompensated R CHF, Hyperkalemia , R leg ulceration, grade IV sacral decubitus ulcer, bacteremia secondary to UTI with recent admission 06/01/15, urinary retention with chronic indwelling rodriguez, COPD , ELIZABETH on CKD stage III-IV, Hyponatremia, Chronic anemia, T2DM, ROHAN, Tobacco Abuse who presents after being sent by infectious disease for MRSA culture of lower extremity wounds. The patient has previously been treated with dalbavancin and on last admission was treated with daptomycin for lower leg wounds. Pt reports previously having a PICC line which was removed a few weeks ago. She also notes that her legs, abdomen and buttocks are swollen despite taking meds per cardiology as instructed. Her medications include bumex, sprionolactone and metolazone to alleviate edema. She reports her appetite has been poor, limits sodium intake, and even restricts the amount of fluids she consumes on a daily basis. Denies any fever, chills or sweats. Pt normally wears 3 L via NC at all times, and has not noted any worsening shortness of breath or dyspnea on exertion. She is primarily in a wheelchair. Pt has home health nurses in her home for wound care and nursing aids as well. She has been following with the wound clinic regularly about once every 2 weeks. Pt has an indwelling rodriguez catheter which is due to be changed soon, but denies any issues regarding the rodriguez. Pt admits to taking fluconazole on a daily basis for prophylactically prevent yeast infections which she is prone to. Here in the ER pt was started on daptomycin IV. WBC is slightly elevated Cr. is elevated at 2.4 up from her baseline of ~1.9-2.1. Sodium is low at 133 BNP is only mildly elevated to compared to previously. EKG reviewed and showed sinus tachycardia. CXR obtained and negative for acute process. Past Medical/Surgical History Medical Problems: (1) Femur fracture, left Status: Chronic (2) Hyponatremia Status: Chronic (3) MRSA (methicillin resistant Staphylococcus aureus) infection Status: Chronic (4) Sacral decubitus ulcer, stage IV Status: Chronic Decompensated R CHF Hyperkalemia R leg ulceration grade IV sacral decubitus ulcer bacteremia secondary to UTI with recent admission 06/01/15 urinary retention with chronic indwelling rodriguez COPD ELIZABETH on CKD stage III-IV Hyponatremia Chronic anemia T2DM ROHAN Tobacco Abuse Family History No pertinent family history Social History Smoking Status: Current Some Day Smoker Alcohol Use: Recovering alcoholic, sober x few years Drug Use: none Marital Status: single Housing status: lives alone Occupational Status: disabled Multi-Drug Resistant Organisms History of MDRO: Yes Type of MDRO: MRSA Allergies Coded Allergies: Vancomycin (Verified Allergy, Severe, ANAPHYLAXIS, 03/24/17) pt began shaking,face and neck bright red rash.o2 saturation dropping to 84% on 15lnrb Ampicillin (Verified Allergy, Mild, RASH, 03/24/17) Clindamycin (Verified Allergy, Mild, RASH, 03/24/17) Linezolid (Verified Allergy, Mild, RASH, 03/24/17) Penicillins (Verified Allergy, Mild, RASH, 03/24/17) Ciprofloxacin (Verified Adverse Reaction, Mild, MUSCLE ACHES, 03/24/17) muscle aches Methimazole (Verified Adverse Reaction, Mild, headache, 03/24/17) headache Nystatin (Verified Adverse Reaction, Mild, nausea, abd pain, kidney pain, 03/24/17) nausea, abd pain,kidney pain Home Medications Scheduled Bumetanide (Bumex), 1 TAB PO BID Eucerin (Hydrocerin), 1 APPLN EXT BID Fluconazole (Diflucan), 1 TAB PO DAILY Glimepiride (Glimepiride), 2 MG PO QAM Home O2 Therapy (Oxygen), 3 LITERS NA CONTINOUS Metolazone (Metolazone), 5 MG PO TTH Oxycodone HCl (Oxycodone HCl), 5 MG PO BID Spironolactone (Aldactone), 25 MG PO QD Zolpidem Tartrate (Ambien), 1 TAB PO HS Scheduled PRN Levocetirizine Dihydrochloride (Levocetirizine Dihydrochl), 0.5 MG PO DAILY PRN for Itching Oxycodone HCl (Oxycodone HCl), 10 MG PO Q8 PRN for Pain Review of Systems Constitutional: No fever, No chills, No sweats Eyes: No redness, No diplopia ENT: No sore throat, No trouble swallowing Respiratory: No cough, No sputum, No wheezing, No shortness of breath, No dyspnea on exertion, No dyspnea at rest Cardiovascular: + edema, No chest pain, No palpitations Abdomen: No pain, No nausea, No vomiting, No diarrhea, No constipation Musculoskeletal: + swelling, + calf pain (due to swelling), No joint pain Genitourinary - Female: No dysuria, No urinary frequency Neurologic: No weakness, No numbness/tingling Psychiatric: No depression symptoms Endocrine: No fatigue Integumentary: + new/changing skin lesions, + problem reported (weeping open skin wounds on RLE, flaking dry skin on lower extremities, sacral decubitus wound), No itch Physical Exam Vital Signs Date Time Temp Pulse Resp B/P (MAP) Pulse Ox O2 Delivery O2 Flow Rate FiO2 06/25/17 12:57 37.2 106 24 126/76 87 Nasal Cannula 3.0 General Appearance: WD/WN, no apparent distress Head: normocephalic, atraumatic Eyes: PERRL, EOMI ENT: hearing grossly normal, + pertinent finding (MM slightly dry) Neck: supple, no JVD Respiratory/Chest: lungs clear, no respiratory distress, no accessory muscle use, + pertinent finding (on 3 L via NC) Cardiovascular: normal peripheral pulses, + tachycardia, + pertinent finding ( Regular rate) Abdomen/GI: normal bowel sounds, non tender, soft, + pertinent finding (+ abdominal edema, obese) Genitourinary - Female: + pertinent finding (chronic indwelling rodriguez draining pale yellow urine) Extremities/Musculoskelatal: + pertinent finding (2+ pitting edema up to knees BLE, + multiple chronic open RLE wounds which are small, large weeping wound on R posterior ankle, + dry flaking skin on BLE., + calf tenderness with palpation ) Neurologic/Psych: alert, oriented x 3, + pertinent finding (mood is irritable and demanding) Skin: normal color, warm/dry Diagnostics Laboratory Results Results Past 24 Hours Test 06/25/17 13:31 Range/Units Microbiology Results 06/25/17 Blood Culture, Ordered Pending 06/25/17 Blood Culture, Ordered Pending Diagnostic Radiology CHEST ONE VIEW PORTABLE CLINICAL HISTORY: 57 years-old Female presenting with EVALUATE RESPIRATORY DISTRESS.DYSPNEA. TECHNIQUE: Portable upright AP view of the chest was obtained. COMPARISON: 04/26/2017. FINDINGS: Atherosclerosis of aortic arch. Cardiac silhouette enlarged, stable to slightly decreased from prior. Prominence of pulmonary vasculature is also stable to slightly decreased from prior. Diffusely coarsened lung markings unchanged. No new focal infiltrate. No large effusion or pneumothorax. Degenerative changes of the thoracic spine. Upper abdomen normal. IMPRESSION: 1. Cardiomegaly with suggestion of mild volume overload stable to slightly decreased from prior. No esther pulmonary edema or new focal infiltrate. 2. Coarsened lung markings could be secondary to volume overload. Electronically signed by: Garett Aguilera M.D. 06/25/2017 1:34 PM EKG Sinus tachycardia Right axis deviation Possible Right ventricular hypertrophy Septal infarct , age undetermined Abnormal ECG When compared with ECG of 29-APR-2017 10:47, Septal infarct is now Present Vent. rate 106 BPM ID interval 156 ms QRS duration 82 ms QT/QTc 344/456 ms P-R-T axes * 116 41 Impression Assessment and Plan This is a 57 yo F with PMHx of Decompensated R CHF, Hyperkalemia , R leg ulceration, grade IV sacral decubitus ulcer, bacteremia secondary to UTI with recent admission 06/01/15, urinary retention with chronic indwelling rodriguez, COPD , ELIZABETH on CKD stage III-IV, Hyponatremia, Chronic anemia, T2DM, ROHAN, Tobacco Abuse who presents after being sent by infectious disease for MRSA culture of lower extremity wounds. MRSA lower extremity wounds Grade IV sacral decubitus ulcer - Admit to med surg - Infectious disease consulted, start daptomycin for now, pt may require technician terminal and repeater abx as she already had a course. Likely needs PICC inserted. - Edema in lower extremities are contributing to nonhealing although understandable as her fluid status is difficulty to keep euvolemic - Slightly leukocytosis but afebrile, mildly tachycardic. - Wound consulted - Wound culture of RLE wound and sacral decubitus wound R sided CHF, compensated - Consult cardiology per pt request and recommendations on diuretic management - follows with Dr. Aguayo as an outpatient - Continue bumex 1 mg PO BID and metolazone 5 mg Tues/Thurs for now. - Continue spironolactone 25 mg daily. ELIZABETH on CKD stage III - Cr elevated at 2.4 up from 1.9-2.1 baseline - will give bumex tonight - trend BMP with am labs - if Cr. improved tomorrow consider resuming - No IVFs at this time as pt appears to be third spacing likely due to hypoalbuminemia Hypoalbuminemia - Poor diet, poor appetite, if Cr. improves would recommend boost. - Will consult nutrition DM II - Continue glimepiride 2 mg PO daily - ISS with accuchecks ACHS - Check A1C, last was 8.7 on 03/25/17 COPD ROHAN Chronic tobacco abuse - Wears 3 L via NC continuously at baseline - Smoking cessation encouraged at bedside, pt denies needs for nicotine patch Hyponatremia - 133 at time of admission - Monitor with daily PRP Morbid obesity - Diet should be encouraged at time of discharged DVT ppx: mechanical contraindicated with wounds, will start on heparin subQ q8H CODE STATUS: FULL CODE Disposition: From home, lives alone, has home health nursing aids in home Level of Care Med/Surg Advanced Directives Existing Advance Directive: Yes Existing Living Will: Yes Existing Power of Marketing Co Op: Yes Existing Health Care Proxy: Yes Resuscitation Status FULL RESUSCITATION VTE Prophylaxis Risk Level: Low Given or contraindicated: Unfractionated heparin SQ Note I agree with above note. I examined patient and discussed analysis and plan with patient and APC. I answered all of the patients questions. My exam did not differ from the one presented by the APC.
[2017-06-25 13:58] LABS: INR 1.2 (0.9-1.1); PTT PATIENT 28.5 SECONDS (21.0-31.0)
[2017-06-25 14:12] LABS: BLOOD UREA NITROGEN 88 mg/dl (7-18); CALCIUM 9.1 mg/dl (8.5-10.1); CARBON DIOXIDE 30 mmol/L (21-32); GLUCOSE 198 mg/dl (70-99); SODIUM 133 mmol/L (136-145)
[2017-06-25 14:17] LABS: ALKALINE PHOSPHATASE 92 U/L (45-117); ALT/SGPT 11 U/L (12-78); AST/SGOT 8 U/L (15-37); TOTAL PROTEIN 7.8 gm/dl (6.4-8.2)
[2017-06-25] MEDS ORDERED: MAGNESIUM HYDROXIDE SUSP 30 ML UDC PO PRN (14:45)
[2017-06-25] MEDS ORDERED: POLYETHYLENE (MIRALAX) 17 GM PACK PO PRN (14:45)
[2017-06-25] MEDS ORDERED: ONDANSETRON INJ 2 MG/ML 2 ML VIAL IV PRN (14:45)
[2017-06-25] MEDS ORDERED: OXYCODONE HCL IR 5 MG TAB (IMMEDIATE RELEASE) PO PRN (14:45)
[2017-06-25] MEDS ORDERED: FLUC100T4 PO (14:48)
[2017-06-25] MEDS ORDERED: RXC5 PO (14:48)
[2017-06-25] MEDS ORDERED: ZRX5 PO (14:48)
[2017-06-25] MEDS ORDERED: GLUCAGON FOR INJ 1 MG VIAL SQ PRN (15:30)
[2017-06-25] MEDS ORDERED: GLUCOSE 40% GEL 15 GM TUBE PO PRN (15:30)
[2017-06-25] MEDS ORDERED: DEXTROSE 50% 50 ML SYR IV PRN (15:30)
[2017-06-25] MEDS ORDERED: GLUCOSE 10 TABS/TUBE PO PRN (15:30)
[2017-06-25] MEDS ORDERED: PATIENT'S HEIGHT AND/OR WEIGHT NEEDED SCH (16:45)
[2017-06-25 17:04] VITALS: BP 111/64; PULSE 102; TEMP 36.8; O2SAT 91
[2017-06-25 18:10] VITALS: BMI 38.5
[2017-06-25 19:18] VITALS: BP 111/64; PULSE 102; TEMP 36.8; O2SAT 92; BMI 38.5
[2017-06-25] MEDS: INSULIN ASPART 100 UNITS/ML 3 ML PEN SC SCH (21:00)
[2017-06-25] MEDS ORDERED: BUMETANIDE 1 MG TAB PO SCH ×2 (21:00)
[2017-06-25] MEDS ORDERED: ZOLPIDEM TARTRATE 5 MG TAB PO SCH (21:00)
[2017-06-25] MEDS: EUCERIN CR 120 GM JAR EXT SCH (21:18)
[2017-06-25] MEDS: HEPARIN SOD 5000 UNIT/0.5 ML CARP SQ SCH (21:20)
[2017-06-26] VITALS: BP 113/68; PULSE 96; TEMP 36.7; O2SAT 94
[2017-06-26] MEDS: OXYCODONE HCL IR 5 MG TAB (IMMEDIATE RELEASE) PO PRN ×3 (01:55→22:37)
[2017-06-26 03:26] VITALS: PULSE 80; O2SAT 95
[2017-06-26] MEDS: HEPARIN SOD 5000 UNIT/0.5 ML CARP SQ SCH ×3 (05:53→21:27)
[2017-06-26 07:50] VITALS: BP 119/68; PULSE 100; TEMP 36.5; O2SAT 92
[2017-06-26] MEDS ORDERED: DAPTOmycin IV 650 MG in SODIUM CHLORIDE 0.9% 50ML 50 ML IV SCH (08:00)
[2017-06-26 08:15] LABS: BASO % 0.4 %; BASO ABS # 0.03 K/uL (0-0.2); EOS % 2.2 %; EOS ABS # 0.16 K/uL (0-0.5); HEMATOCRIT 33.8 % (37-47); HEMOGLOBIN 9.8 g/dL (12.0-16.0); IG# 0.02 K/uL (0.00-0.02); LYMPH % 19.6 %; LYMPH ABS # 1.42 K/uL (1.2-3.4); MEAN CELL VOLUME 72.7 fL (80-100); MEAN CORPUSCULAR HEMOGLOBIN 21.1 pg (25-34); MEAN PLATELET VOLUME 9.8 fL (7.4-10.4); MONO % 8.5 %; MONO ABS # 0.62 K/uL (0.11-0.59); NEUT ABS # 5.01 K/uL (1.4-6.5); PLATELET COUNT 268 K/uL (130-400); RED CELL DISTRIBUTION WIDTH CV 18.9 % (11.5-14.5); RED CELL DISTRIBUTION WIDTH SD 50.4 fL (36.4-46.3); WHITE BLOOD COUNT 7.26 K/uL (4.8-10.8)
[2017-06-26] MEDS: INSULIN ASPART 100 UNITS/ML 3 ML PEN SC SCH ×5 (08:32→20:05)
[2017-06-26] MEDS: DAPTOmycin IV 650 MG in SYRINGE 0 ML IV SCH (08:33)
[2017-06-26] MEDS: EUCERIN CR 120 GM JAR EXT SCH ×2 (08:34→21:00)
[2017-06-26] MEDS: SPIRONOLACTONE 25 MG TAB PO SCH (08:34)
[2017-06-26] MEDS: BUMETANIDE 1 MG TAB PO SCH ×2 (08:34→18:05)
--- NOTE | 2017-06-26 08:42 | Clinical Documentation Query ---
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 Query #1/2 In your clinical opinion is this patient being managed for: ( ) Infected bilateral lower extremity wounds/ulcerations due to Diabetic PVD ( ) Not Agree ( ) Other explanation of clinical findings (Please Explain) ( ) Unable to determine (Please Define) ( ) Need to Discuss The medical record reflects the following clinical findings, treatment, and risk factors. Clinical Indicators: Open wounds to bilateral lower legs. Treatment: consult for PICC, IV Daptomycin, WOCN consult, Risk Factors: Age, DM, Hx of MRSA, Query #2/2 WOCN assessment reveals bilateral heel pressure ulcers not described in H&P, unless documented by physician they cannot be coded and their clinical significance will be lost. In your clinical opinion is this patient being managed for: ( ) Deep Tissue Injury of right & left heel POA ( ) Not Agree ( ) Other explanation of clinical findings (Please Explain) ( ) Unable to determine (Please Define) ( ) Need to Discuss The medical record reflects the following clinical findings, treatment, and risk factors. Clinical Indicators: As above. Treatment: WOCN consult, WC physician consult, IV Daptomycin Risk Factors: Age, obesity, DM, sedentary lifestyle, hx of pressure ulcers. Please clarify and document your clinical opinion in the progress notes and discharge summary. Terms such as "probable", "suspected", "likely", "questionable", "possible", or "still to be ruled out" are acceptable. IF IN AGREEMENT, YOU MUST DOCUMENT ABOVE DIAGNOSTIC STATEMENT IN DAILY PROGRESS NOTES AND DISCHARGE SUMMARY. This document is not part of the patient's record. Thank You, Joshua Rosales RN [phone]
[2017-06-26 08:53] LABS: CALCIUM 9.2 mg/dl (8.5-10.1); CREATININE 2.26 mg/dl (0.60-1.20); POTASSIUM 4.4 mmol/L (3.5-5.1)
[2017-06-26] MEDS ORDERED: GLIMEPIRIDE 2 MG TAB PO SCH (09:00)
--- NOTE | 2017-06-26 11:10 | Progress Note ---
Progress Note Date of Service Jun 26, 2017. Progress Note ID Consult Dictated #[id number] A/P: 1. RLE infected ulcer - MRSA -Continue Dapto, follow blood cultures -Local wound care -Thank you
--- NOTE | 2017-06-26 11:34 | INFECT. DISEASE CONSULTATION ---
DATE OF CONSULTATION: 06/26/2017 REQUESTING PHYSICIAN: Dr. Mora. HISTORY OF PRESENT ILLNESS: This is a 57-year-old female who was admitted after she had a positive wound culture from MRSA obtained on the 19 of June. She states she was recently treated with multiple weeks of IV antibiotics on an outpatient basis for MRSA infection of the right lower extremity. She did have a PICC line, which was removed. She continues to follow with the wound care center as well as Dr. Brown from infectious diseases on a regular basis. She did have worsening of her right leg ulceration and a culture was obtained on the of the month. This is growing MRSA, which is resistant to Bactrim. She was notified to come to the hospital yesterday for initiation of IV antibiotics. She was started on daptomycin and is tolerating this well. She has been afebrile since admission. Her white blood cell count was normal. She does have chronic kidney disease and her creatinine is elevated at 2.4. Blood cultures were obtained and are pending. No additional cultures have been obtained. She does admit to some pain in the legs. She also admits to increasing edema, in which concern is contributing to the nonhealing wound to the right lower extremity. She does have a chronic Lerner catheter in place. She denies any fevers or chills. Her remaining review of systems is unremarkable. PAST MEDICAL HISTORY: Significant for a history of femur fracture, electrolyte abnormalities, MRSA infection and sacral decubitus ulcers as well as CHF, urinary retention, COPD, chronic kidney disease, anemia, type 2 diabetes, and obstructive sleep apnea. FAMILY HISTORY: Noncontributory. SOCIAL HISTORY: Significant for daily tobacco use. She does have a history of alcohol abuse. She denies any drug use. ALLERGIES: INCLUDE VANCOMYCIN, PENICILLIN, CLINDAMYCIN, LINEZOLID, CIPROFLOXACIN, METHIMAZOLE, AND A STATIN. CURRENT MEDICATIONS: Include Zaroxolyn, Ambien, spironolactone, Bumex, daptomycin, Roxicodone, subQ heparin, Eucerin cream, Tylenol, milk of magnesia, and MiraLax. PHYSICAL EXAMINATION: VITAL SIGNS: She is afebrile, pulse 100, respiratory rate 18, blood pressure 119/68, and oxygen saturation is 92% on 3 liters. GENERAL: She is awake, alert and oriented x3. She is in no acute distress. HEENT: Mucous membranes are moist. Extraocular muscles are intact. EXTREMITIES: There is lower extremity edema bilaterally. There are chronic venous stasis changes and ulceration. She does have a dressing over her right lower extremity. She does refuse examination of this as well as additional exam. LABORATORY STUDIES: CBC today reveals a white blood cell count of 7.2, hemoglobin 9.8, and platelets are 268. Chemistry panel reveals a sodium of 134, potassium 4.4, chloride 96, bicarbonate 30, BUN 87, creatinine 2.2, and glucose is 182. LFTs were normal on admission. Urinalysis has greater than 30 WBCs and 4+ bacteria. She has not had a Lerner changed in some time. Urine culture is growing E. coli. Blood cultures are pending. Chest x-ray in the ER shows volume overload with no infiltrate. ASSESSMENT AND PLAN: Right lower extremity infection with methicillin-resistant Staphylococcus aureus. She will be continued on vancomycin. She also will be followed by wound care here in the hospital and will likely continue with followup visit at the wound care center post-discharge. The result of her urine culture is unclear. She has not had a Lerner changed in sometime. If there is a concern for urinary tract infection, would recommend changing her Lerner catheter and obtaining a new urinalysis and urine culture at that time. We will follow along with you. Thank you for this consultation.
[2017-06-26 15:06] VITALS: BMI 38.5
[2017-06-26 15:32] VITALS: BP 106/69; PULSE 103; O2SAT 94
[2017-06-26 16:00] VITALS: O2SAT 94
--- NOTE | 2017-06-26 17:23 | Hospitalist Progress Note ---
Hospitalist Progress Note Date of Service Jun 26, 2017. (Demetra Martinez ., PA-C) Subjective Pt evaluation today including: conversation w/ patient, physical exam, chart review, lab review, review of inpatient medication list Patient immediately states upon entry to the room that she is unhappy with her care and is very accusatory, stating that everyone is telling her different things and is getting everything wrong. She is initially even unwilling to provide me any history and is rather agitated and aggressive. After some reassurance, she does complain of an 8/10 tingly pain in her right lower extremity at the site of her wounds, and she states that this pain is on top of her chronic arthritis pain. She complains of swelling in her lower extremities which she states is why her wounds aren't healing. The patient denies fevers, chills, sweats, chest pain, palpitations, claudication, cough, wheezing, shortness of breath, nausea, vomiting, abdominal pain, dysuria, hematuria, urinary retention, paralysis, weakness. Additional Comments: See HPI for pertinent positives and negatives. All other systems reviewed and negative. (Demetra Martinez ., PA-C) Objective Vital Signs Date Time Temp Pulse Resp B/P (MAP) Pulse Ox O2 Delivery O2 Flow Rate FiO2 06/26/17 16:00 94 Nasal Cannula 3.0 06/26/17 15:32 103 18 106/69 (81) 94 Nasal Cannula 3.0 06/26/17 08:00 Nasal Cannula 2.0 06/26/17 07:50 36.5 100 18 119/68 (85) 92 Nasal Cannula 3.0 06/26/17 03:26 80 95 3.0 06/26/17 01:00 Nasal Cannula 3.0 06/26/17 00:00 36.7 96 20 113/68 (83) 94 2.0 06/25/17 19:18 36.8 102 20 111/64 92 Nasal Cannula 3.0 06/25/17 17:04 36.8 102 20 111/64 (80) 91 Nasal Cannula 3.0 (Demetra Martinez ., AUSTIN-C) Physical Exam Notes: General appearance: +Obese. Well-developed, well-nourished, no apparent distress Head: Normocephalic, atraumatic Eyes: Normal inspection, PERRL, EOMI ENT: Normal ENT inspection, hearing grossly normal, pharynx normal Neck: Supple, no JVD, trachea midline Respiratory/Chest: +One 3L NC, this is baseline. Lungs clear to auscultation, normal breath sounds, no respiratory distress Cardiovascular: Regular rate & rhythm, no gallop, no murmur Abdomen/GI: Normal bowel sounds, non-tender, soft Extremities/Musculoskeletal: +2+ pitting edema in lower extremities up to knees. Multiple chronic ulcers on lower extremities. Wounds currently dressed , pt refuses to allow me to unwrap. No calf tenderness Neurological/Psych: +Irritated, aggressive. Alert, oriented x 3 Skin: Normal color, warm/dry, no rash (Demetra Martinez ., PA-C) Laboratory Results Last 24 Hours Test 06/25/17 17:13 06/26/17 07:52 06/26/17 07:53 Bedside Glucose 234 mg/dl 204 mg/dl White Blood Count 7.26 K/uL Red Blood Count 4.65 M/uL Hemoglobin 9.8 g/dL Hematocrit 33.8 % Mean Corpuscular Volume 72.7 fL Mean Corpuscular Hemoglobin 21.1 pg Mean Corpuscular Hemoglobin Concent 29.0 g/dl Platelet Count 268 K/uL Mean Platelet Volume 9.8 fL Neutrophils (%) (Auto) 69.0 % Lymphocytes (%) (Auto) 19.6 % Monocytes (%) (Auto) 8.5 % Eosinophils (%) (Auto) 2.2 % Basophils (%) (Auto) 0.4 % Neutrophils # (Auto) 5.01 K/uL Lymphocytes # (Auto) 1.42 K/uL Monocytes # (Auto) 0.62 K/uL Eosinophils # (Auto) 0.16 K/uL Basophils # (Auto) 0.03 K/uL RDW Standard Deviation 50.4 fL RDW Coefficient of Variation 18.9 % Immature Granulocyte % (Auto) 0.3 % Immature Granulocyte # (Auto) 0.02 K/uL Anisocytosis PRESENT Microcytosis PRESENT Sodium Level 134 mmol/L Potassium Level 4.4 mmol/L Chloride Level 96 mmol/L Carbon Dioxide Level 30 mmol/L Anion Gap 9.0 mmol/L Blood Urea Nitrogen 87 mg/dl Creatinine 2.26 mg/dl Est Creatinine Clear Calc Drug Dose 33.3 ml/min Estimated GFR () 26.6 Estimated GFR (Non- 23.0 BUN/Creatinine Ratio 38.5 Random Glucose 182 mg/dl Estimated Average Glucose 212 mg/dl Hemoglobin A1c 9.0 % Calcium Level 9.2 mg/dl Triglycerides Level 70 mg/dl Cholesterol Level 105 mg/dl HDL Cholesterol 22 mg/dl LDL Cholesterol, Calculated 69 mg/dl VLDL Cholesterol, Calculated 14 mg/dl Cholesterol/HDL Ratio 4.8 (Demetra Martinez ., PAKhushbooC) Assessment and Plan 57 y/o female with a history of Decompensated R CHF, Hyperkalemia , R leg ulceration, grade IV sacral decubitus ulcer, bacteremia secondary to UTI with recent admission 06/01/15, urinary retention with chronic indwelling rodriguez, COPD , ELIZABETH on CKD stage III-IV, Hyponatremia, Chronic anemia, T2DM, ROHAN, Tobacco Abuse who presents after being sent by infectious disease for MRSA in the lower extremity wounds. MRSA lower extremity wounds, infected bilateral lower extremity wounds/ulcers due to diabetic PVD, grade IV sacral decubitus ulcer, deep tissue injury of bilateral heel POA --stable - Admit to med surg - Infectious disease consulted: Continue daptomycin. Change Rodriguez if concerned for UTI and repeat UA and urine culture - Leukocytosis resolved - Wound care nurse and provider consulted, appreciate recs - Wound culture of RLE wound and sacral decubitus wound - Blood cultures pending -Air mattress offered to offload pressure on sacral ulcer, pt refuses to try and refuses to get into her bed UTI POA -UA positive for bacteria -Urine culture positive for E. Coli -Start Rocephin 1 gm IV qd -Pt refuses to have Rodriguez changed at this time. States she does not trust anyone here to change it R sided CHF, compensated - Consult cardiology per pt request and recommendations on diuretic management - follows with Dr. Aguayo as an outpatient - Continue Bumex 1 mg PO BID and metolazone 5 mg / for now. - Continue spironolactone 25 mg daily. ELIZABETH on CKD stage III--improving - Cr elevated at 2.4 up from 1.9-2.1 baseline on admission - No IVFs at this time as pt appears to be third spacing likely due to hypoalbuminemia - Creatinine improved 06/26 to 2.26 Hypoalbuminemia - Poor diet, poor appetite, if Cr. improves would recommend boost. - Will consult nutrition DM II - Hold glimepiride - ISS with accuchecks ACHS. Pt is refusing BSG checks and SC insulin. Explained why insulin is used in the hospital and pt states that she does not care and will not take insulin. Explained A1c is elevated and she still refuses - HgbA1c 9.0 on 06/26 COPD, ROHAN, Chronic tobacco abuse--stable, no wheezing - Wears 3 L via NC continuously at baseline. Currently on 3L - Smoking cessation encouraged at bedside, pt denies needs for nicotine patch Hyponatremia--stable - 134 on 06/26, asymptomatic - Monitor with daily PRP Morbid obesity - Diet should be encouraged at time of discharged DVT prophylaxis -Heparin 5000 units SC. Pt is refusing -Mechanical ppx contraindicated due to wounds CODE STATUS: FULL CODE Disposition: From home, lives alone, has home health nursing aids in home (Demetra Martinez ., PA-C) PA Physician Supervision Note: I interviewed and examined the patient. Discussed with Demetra Martinez PAC and agree with findings and plan as documented in the note. Any exceptions or clarifications are listed here: None Patient admitted with progressive lower extremity wounds with traumatic stage II to 3 ulceration of her right heel attended to by wound care previous history of MRSA Escherichia coli UTI catheter associated on admission, also worsening right heart failure and fluid retention Vital signs reviewed Cardiac exam is distant regular lungs of decreased breath sounds the bases patient has chronic venous stasis changes to her lower extremity and 1-2+ edema with erythema scaly skin and open areas For the leg infection and MRSA and Escherichia coli patient is on daptomycin and ceftriaxone with infectious disease following For the mechanical ulceration patient has weight reduction Rodney upon positioning wound care as he debrided her wound will continue to follow For her right heart failure intravenous loop diuretics will be administered For diabetes basal bolus insulin will be continued For her severe sleep apnea will use CPAP at night for chronic respiratory disease COPD we'll maintain her inhaled medicines Documented By: Kaiden Syed (Kaiden Syed M.D.)
[2017-06-26] MEDS: CEFTRIAXONE SOD INJ 1 GM in DEXTROSE 5% ADD-VANTAGE 50ML 50 ML IV SCH (18:14)
[2017-06-26] MEDS ORDERED: ZOLPIDEM TARTRATE 5 MG TAB PO PRN (21:00)
[2017-06-27 00:13] VITALS: BP 108/59; PULSE 104; TEMP 36.5; O2SAT 90
[2017-06-27] MEDS: OXYCODONE HCL IR 5 MG TAB (IMMEDIATE RELEASE) PO PRN ×3 (06:26→20:25)
[2017-06-27 07:18] VITALS: BP 97/62; PULSE 103; TEMP 36.6; O2SAT 92
[2017-06-27] MEDS: METOLAZONE 5 MG TAB PO SCH (08:24)
[2017-06-27] MEDS: DAPTOmycin IV 650 MG in SYRINGE 0 ML IV SCH (08:33)
[2017-06-27] MEDS: INSULIN ASPART 100 UNITS/ML 3 ML PEN SC SCH ×4 (08:42→20:18)
[2017-06-27] MEDS: SPIRONOLACTONE 25 MG TAB PO SCH (08:43)
[2017-06-27] MEDS: BUMETANIDE 1 MG TAB PO SCH ×2 (08:49→19:21)
[2017-06-27] MEDS: EUCERIN CR 120 GM JAR EXT SCH ×2 (08:51→20:19)
[2017-06-27 09:44] LABS: BASO % 0.2 %; BASO ABS # 0.02 K/uL (0-0.2); EOS % 0.9 %; EOS ABS # 0.08 K/uL (0-0.5); IG# 0.01 K/uL (0.00-0.02); LYMPH % 10.2 %; LYMPH ABS # 0.92 K/uL (1.2-3.4); MEAN CELL VOLUME 72.8 fL (80-100); MEAN CORPUSCULAR HEMOGLOBIN 21.1 pg (25-34); MEAN PLATELET VOLUME 9.6 fL (7.4-10.4); MONO % 7.7 %; NEUT % 80.9 %; NEUT ABS # 7.32 K/uL (1.4-6.5); PLATELET COUNT 239 K/uL (130-400); RED CELL DISTRIBUTION WIDTH CV 18.9 % (11.5-14.5); RED CELL DISTRIBUTION WIDTH SD 50.8 fL (36.4-46.3); WHITE BLOOD COUNT 9.05 K/uL (4.8-10.8)
[2017-06-27] MEDS ORDERED: NURSING VERBAL MED ORDER ONE ×2 (10:15→18:30)
[2017-06-27 10:25] LABS: CALCIUM 9.1 mg/dl (8.5-10.1); CREATININE 2.33 mg/dl (0.60-1.20); POTASSIUM 4.8 mmol/L (3.5-5.1)
--- NOTE | 2017-06-27 10:45 | Infectious Disease Progress Nt ---
Progress Note Date of Service Jun 27, 2017. Subjective Pt evaluation today including: conversation w/ patient, physical exam, chart review, lab review, review of studies, conversation w/ product management consultant, review of inpatient medication list Patient offering no new major complaints. Remains afebrile. Urine culture growing E coli. All Other Systems: Reviewed and Negative Medications Current Inpatient Medications Medications (Trade) Dose Ordered Sig/Bruno Route Start Time Stop Time Status Last Admin Dose Admin Acetaminophen (Tylenol Tab) 650 mg Q4H PRN PO 06/25/17 14:45 07/25/17 14:44 Magnesium Hydroxide (Milk Of Magnesia Susp) 30 ml Q6H PRN PO 06/25/17 14:45 07/25/17 14:44 Polyethylene (Miralax Powder Packet) 17 gm DAILY PRN PO 06/25/17 14:45 07/25/17 14:44 Ondansetron HCl (Zofran Inj) 4 mg Q6H PRN IV 06/25/17 14:45 07/25/17 14:44 Multi-Ingredient Ointment (Eucerin Unscented Cr) 1 appln BID EXT 06/25/17 21:00 07/25/17 20:59 06/26/17 08:34 1 APPLN Metolazone (Zaroxolyn Tab) 5 mg TuTh@0830 PO 06/27/17 08:30 07/27/17 08:29 06/27/17 08:24 5 MG Spironolactone (Aldactone Tab) 25 mg DAILY PO 06/26/17 09:00 07/26/17 08:59 06/27/17 08:43 25 MG Insulin Aspart (novoLOG ASPART) SLIDING SCALE If C... ACHS SC 06/25/17 16:30 07/25/17 16:29 06/27/17 08:42 7 UNITS Glucose (Glucose 40% Gel) 15-30 GRAMS 15 GRAMS... UD PRN PO 06/25/17 15:30 07/25/17 15:29 Glucose (Glucose Chew Tab) 4-8 Tablets 4 Tabl... UD PRN PO 06/25/17 15:30 07/25/17 15:29 Dextrose (Dextrose 50% 50ML Syringe) 25-50ML OF 50% DW IV FOR... UD PRN IV 06/25/17 15:30 07/25/17 15:29 Glucagon (Glucagon Inj) 1 mg UD PRN SQ 06/25/17 15:30 07/25/17 15:29 Heparin Sodium (Porcine) (Heparin Sq 5000 Unit/0.5ml) 5,000 unit Q8 SQ 06/25/17 22:00 07/25/17 21:59 Daptomycin 650 mg/ Syringe 13 ml @ 6.5 mls/min DAILY@0800 IV 06/26/17 08:00 07/05/17 07:59 06/27/17 08:33 6.5 MLS/MIN Oxycodone HCl (Roxicodone Immediate Rel Tab) 5 mg Q8H PRN PO 06/26/17 01:00 07/09/17 14:44 06/26/17 22:37 5 MG Zolpidem Tartrate (Ambien Tab) 5 mg HS PRN PO 06/26/17 21:00 07/25/17 20:59 Ceftriaxone Sodium 1 gm/ Dextrose 50 ml @ 100 mls/hr DAILY@1800 IV 06/26/17 18:00 07/01/17 17:59 06/26/17 18:14 100 MLS/HR Bumetanide 1 mg/ Syringe 4 ml @ 4 mls/min DAILY@09,17 IV 06/27/17 17:00 07/27/17 16:59 Objective Vital Signs Date Time Temp Pulse Resp B/P (MAP) Pulse Ox O2 Delivery O2 Flow Rate FiO2 06/27/17 08:15 Nasal Cannula 3.0 06/27/17 07:18 36.6 103 16 97/62 (74) 92 CPAP 06/27/17 00:13 36.5 104 20 108/59 (75) 90 Nasal Cannula 3.0 06/26/17 16:00 94 Nasal Cannula 3.0 06/26/17 15:32 103 18 106/69 (81) 94 Nasal Cannula 3.0 Physical Exam General Appearance: WD/WN, no apparent distress, + obese Eyes: normal inspection, EOMI, sclerae normal ENT: normal ENT inspection, pharynx normal Neck: supple, no adenopathy, thyroid normal, trachea midline Respiratory/Chest: chest non-tender, no respiratory distress, no accessory muscle use, + rales Cardiovascular: regular rate, rhythm, no gallop, no murmur Abdomen: normal bowel sounds, non tender, soft, no organomegaly Extremities: non-tender, no calf tenderness Neurologic/Psychiatric: alert, oriented x 3 Skin: normal color, + pertinent finding ( right leg and heel ulcerations) Lymphatic: no adenopathy Laboratory Results RUN DATE: 06/27/17 [facility] LAB PAGE 1 RUN TIME: 1033 Specimen Inquiry PATIENT: LOC PADILLA LOC: NATALIW U # : [id number] AGE/SX: 57/F ROOM: [facility] REG : 06/25/[address]: Dieudonne Mora M.D. : 1960 BED: 1 DIS : STATUS: ADM IN TLOC: SPEC #: [id number] DINO: 06/25/17-UNK STATUS: COMP REQ #: [id number] RECD: 06/25/[address] [facility] [address]: Carlyle Burroughs M.D. SOURCE: URINE CATH ENTR: 06/25/17-[address]: Jake Brown MD [facility]: Sujit Aguayo, MD Rothman, Parminder Montiel, DO Mora,Dieudonne Villar M.D. ORDERED: CULTURE UR CATH Procedure Result Verified Site URINE CULTURE Final 06/27/17-1033 Organism 1 ESCHERICHIA COLI COLONY COUNT >100,000 CFU/ml SENS SENSITIVITY TO FOLLOW 1. ESCHERICHIA COLI Target Route Dose RX AB Cost M.I.C. IQ ------ ----- ------ -- ------ -------- - ------ TRIMET/SULFA R >2/38 AMPICILLIN R >16 AMPICILLIN/SUL I 16/8 CEFAZOLIN S <=8 CEFOXITIN I 16 CEFOTAXIME S <=2 CEFTRIAXONE S <=1 CEFEPIME S <=4 CEFUROXIME I 16 IMIPENEM S <=1 GENTAMICIN S <=4 TOBRAMYCIN R >8 AMIKACIN S <=16 CIPROFLOXACIN R >2 LEVOFLOXACIN R >4 ERTAPENEM S <=1 NITROFURANTOIN S <=32 PIP/TAZO S <=16 S = SENSITIVE I = INTERMEDIATE R = RESISTANT END OF REPORT Last 24 Hours Test 06/26/17 17:10 06/27/17 07:48 06/27/17 09:21 Bedside Glucose 269 mg/dl 185 mg/dl White Blood Count 9.05 K/uL Red Blood Count 4.26 M/uL Hemoglobin 9.0 g/dL Hematocrit 31.0 % Mean Corpuscular Volume 72.8 fL Mean Corpuscular Hemoglobin 21.1 pg Mean Corpuscular Hemoglobin Concent 29.0 g/dl Platelet Count 239 K/uL Mean Platelet Volume 9.6 fL Neutrophils (%) (Auto) 80.9 % Lymphocytes (%) (Auto) 10.2 % Monocytes (%) (Auto) 7.7 % Eosinophils (%) (Auto) 0.9 % Basophils (%) (Auto) 0.2 % Neutrophils # (Auto) 7.32 K/uL Lymphocytes # (Auto) 0.92 K/uL Monocytes # (Auto) 0.70 K/uL Eosinophils # (Auto) 0.08 K/uL Basophils # (Auto) 0.02 K/uL RDW Standard Deviation 50.8 fL RDW Coefficient of Variation 18.9 % Immature Granulocyte % (Auto) 0.1 % Immature Granulocyte # (Auto) 0.01 K/uL Hypersegmented Polys 1+ Toxic Granulation 1+ Hypochromasia PRESENT Anisocytosis PRESENT Microcytosis PRESENT Ovalocytes 1+ Sodium Level 131 mmol/L Potassium Level 4.8 mmol/L Chloride Level 94 mmol/L Carbon Dioxide Level 29 mmol/L Anion Gap 8.0 mmol/L Blood Urea Nitrogen 87 mg/dl Creatinine 2.33 mg/dl Est Creatinine Clear Calc Drug Dose 32.3 ml/min Estimated GFR () 25.7 Estimated GFR (Non- 22.2 BUN/Creatinine Ratio 37.3 Random Glucose 284 mg/dl Calcium Level 9.1 mg/dl Assessment and Plan 57-year-old female with right leg heel ulcerations with MRSA, being treated with daptomycin. Ceftriaxone appropriate for urinary tract infection with E coli. Would give 5 days of ceftriaxone, will likely require more prolonged course of daptomycin. Will follow.
[2017-06-27] MEDS: HEPARIN SOD 5000 UNIT/0.5 ML CARP SQ SCH ×2 (13:29→20:19)
[2017-06-27 15:56] VITALS: BP 102/57; PULSE 72; TEMP 36.4; O2SAT 91
[2017-06-27 16:00] VITALS: O2SAT 91
[2017-06-27] MEDS ORDERED: BUMETANIDE IV 1 MG in SYRINGE 0 ML IV SCH (17:00)
--- NOTE | 2017-06-27 17:01 | Cardiology Consultation ---
Cardiology Consultation Date of Consultation: Jun 27, 2017. Attending Physician: Abby Reason for Consultation: Right Heart Failure History of Present Illness Ms. Sebastian is a 57-year-old woman with a history right-sided heart failure and persistent bilateral lower extremity edema complicated by lower extremity ulcerations chronic respiratory in the setting of COPD/obstructive sleep apnea, sacral decubitus ulcer, chronic kidney disease, chronic anemia, type 2 diabetes. Cardiology is asked to consult on management of her diuretics. Patient has longstanding right heart failure. She has had multiple prior admissions to [facility] and was previously seen by Dr. Belle/Dr. Montgomery from [facility] cardiology. 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 Most recent prior admissions were in March and April this year. In April she was admitted with worsened decompensated heart failure in the setting of questionable medical compliance. She also had a UTI with Klebsiella bacteremia. She was treated with continued IV antibiotics and intermittent diuretics complicated by her renal insufficiency. She was discharged on Bumex 1 mg b.i.d.. Her prior spironolactone was held in the setting of hyperkalemia. Since that time she has been treated with Bumex, spironolactone as well as intermittent Zaroxolyn. She continues to follow-up with the wound care center for her slow healing ulcerations. She has what appeared to be venous stasis ulcerations over the anterior surface of her shins bilaterally and pressure ulcerations over heels. She has been treated with IV antibiotics for prior MRSA infection. Most recently wound cultures from her legs were again notably positive for MRSA and she was admitted by Dr. Brown further management. Since admission she has been found to have a UTI and is now on antibiotics for that as well. She was restarted on her prior diuretics with Bumex 1 mg b.i.d. and spironolactone 25 mg in the evening. She also received 1 dose of Zaroxolyn today. She is negative more than 4 L since admission. She states that she continues to have lower extremity edema which she attributes to having to sit up all day due to issues with her current bed. She denies any chest pain. She denies any significant worsening of her shortness of breath. States her ulcerations her legs are stable. Denies any fevers, chills. Past Medical/Surgical History PAST MEDICAL HISTORY: 1. Cor pulmonale. 2. Severe obstructive sleep apnea. 3. Morbid obesity. 4. Pickwickian syndrome. 5. Chronic renal insufficiency. 6. Left lower extremity DVT status post IVC filter placement on chronic anticoagulation. 7. Diabetes type 2. 8. Chronic lower extremity decubitus ulcers. 9. Severe COPD on home oxygen. 10. Patient has chronic indwelling Lerner catheter to prevent infection of chronic sacral decubiti 11. Left nondisplaced medial femoral condyle fracture April, PAST SURGICAL HISTORY: 1. Recent IVC filter placement. 2. Recent hip repair. 3. . FAMILY HISTORY: Negative for premature coronary artery disease or sudden cardiac . SOCIAL HISTORY: She is a lifelong smoker with a greater than [id number] history Family History No pertinent family history Social History Smoking Status: Current Some Day Smoker History of Alcohol Use: No Review of Systems Cardiac: + edema 10 point review of systems was completed and was otherwise negative unless stated in HPI Allergies Coded Allergies: Vancomycin (Verified Allergy, Severe, ANAPHYLAXIS, 03/24/17) pt began shaking,face and neck bright red rash.o2 saturation dropping to 84% on 15lnrb Ampicillin (Verified Allergy, Mild, RASH, 03/24/17) Clindamycin (Verified Allergy, Mild, RASH, 03/24/17) Linezolid (Verified Allergy, Mild, RASH, 03/24/17) Penicillins (Verified Allergy, Mild, RASH, 03/24/17) Ciprofloxacin (Verified Adverse Reaction, Mild, MUSCLE ACHES, 03/24/17) muscle aches Methimazole (Verified Adverse Reaction, Mild, headache, 03/24/17) headache Nystatin (Verified Adverse Reaction, Mild, nausea, abd pain, kidney pain, 03/24/17) nausea, abd pain,kidney pain Medications Current Inpatient Medications Medications (Trade) Dose Ordered Sig/Bruno Route Start Time Stop Time Status Last Admin Dose Admin Acetaminophen (Tylenol Tab) 650 mg Q4H PRN PO 06/25/17 14:45 07/25/17 14:44 Magnesium Hydroxide (Milk Of Magnesia Susp) 30 ml Q6H PRN PO 06/25/17 14:45 07/25/17 14:44 Polyethylene (Miralax Powder Packet) 17 gm DAILY PRN PO 06/25/17 14:45 07/25/17 14:44 Ondansetron HCl (Zofran Inj) 4 mg Q6H PRN IV 06/25/17 14:45 07/25/17 14:44 Multi-Ingredient Ointment (Eucerin Unscented Cr) 1 appln BID EXT 06/25/17 21:00 07/25/17 20:59 06/26/17 08:34 1 APPLN Metolazone (Zaroxolyn Tab) 5 mg TuTh@0830 PO 06/27/17 08:30 07/27/17 08:29 06/27/17 08:24 5 MG Spironolactone (Aldactone Tab) 25 mg DAILY PO 06/26/17 09:00 07/26/17 08:59 06/27/17 08:43 25 MG Insulin Aspart (novoLOG ASPART) SLIDING SCALE If C... ACHS SC 06/25/17 16:30 07/25/17 16:29 06/27/17 08:42 7 UNITS Glucose (Glucose 40% Gel) 15-30 GRAMS 15 GRAMS... UD PRN PO 06/25/17 15:30 07/25/17 15:29 Glucose (Glucose Chew Tab) 4-8 Tablets 4 Tabl... UD PRN PO 06/25/17 15:30 07/25/17 15:29 Dextrose (Dextrose 50% 50ML Syringe) 25-50ML OF 50% DW IV FOR... UD PRN IV 06/25/17 15:30 07/25/17 15:29 Glucagon (Glucagon Inj) 1 mg UD PRN SQ 06/25/17 15:30 07/25/17 15:29 Heparin Sodium (Porcine) (Heparin Sq 5000 Unit/0.5ml) 5,000 unit Q8 SQ 06/25/17 22:00 07/25/17 21:59 Daptomycin 650 mg/ Syringe 13 ml @ 6.5 mls/min DAILY@0800 IV 06/26/17 08:00 07/05/17 07:59 06/27/17 08:33 6.5 MLS/MIN Oxycodone HCl (Roxicodone Immediate Rel Tab) 5 mg Q8H PRN PO 06/26/17 01:00 07/09/17 14:44 06/27/17 13:28 5 MG Zolpidem Tartrate (Ambien Tab) 5 mg HS PRN PO 06/26/17 21:00 07/25/17 20:59 Ceftriaxone Sodium 1 gm/ Dextrose 50 ml @ 100 mls/hr DAILY@1800 IV 06/26/17 18:00 07/01/17 17:59 06/26/17 18:14 100 MLS/HR Bumetanide 1 mg/ Syringe 4 ml @ 4 mls/min DAILY@,17 IV 06/27/17 17:00 07/27/17 16:59 Physical Exam Vital Signs Past 12 Hours Date Time Temp Pulse Resp B/P (MAP) Pulse Ox O2 Delivery O2 Flow Rate FiO2 06/27/17 15:56 36.4 72 20 102/57 (72) 91 Nasal Cannula 06/27/17 08:15 Nasal Cannula 3.0 06/27/17 07:18 36.6 103 16 97/62 (74) 92 CPAP General: Comfortable, no acute distress, obese, nasal cannula in place, in wheelchair Eyes: Sclerae anicteric, extraocular movements intact HENT: Oropharynx clear mucous membranes moist Neck: Supple, no lymphadenopathy, no thyromegaly. Lungs: Clear to auscultation bilaterally, no rhonchi or wheezes Cardiac: Regular rate and rhythm, 2/6 systolic ejection murmur the right upper sternal border, rubs or gallops. Unable to assess JVD. Vascular: Normal carotid upstrokes, no bruits. 2+ lower extremity edema to her knees bilaterally superficial ulcerations the anterior surface, small. Heel ulcerations recently dressed Abdomen: Soft, nontender, nondistended positive bowel sounds. Neuro: Cranial nerves 2-12 grossly intact, remainder exam nonfocal Psych: Alert orient x3, normal affect and mood Data Laboratory Results: Last 24 Hours Test 06/26/17 17:10 06/27/17 07:48 06/27/17 09:21 Bedside Glucose 269 mg/dl 185 mg/dl White Blood Count 9.05 K/uL Red Blood Count 4.26 M/uL Hemoglobin 9.0 g/dL Hematocrit 31.0 % Mean Corpuscular Volume 72.8 fL Mean Corpuscular Hemoglobin 21.1 pg Mean Corpuscular Hemoglobin Concent 29.0 g/dl Platelet Count 239 K/uL Mean Platelet Volume 9.6 fL Neutrophils (%) (Auto) 80.9 % Lymphocytes (%) (Auto) 10.2 % Monocytes (%) (Auto) 7.7 % Eosinophils (%) (Auto) 0.9 % Basophils (%) (Auto) 0.2 % Neutrophils # (Auto) 7.32 K/uL Lymphocytes # (Auto) 0.92 K/uL Monocytes # (Auto) 0.70 K/uL Eosinophils # (Auto) 0.08 K/uL Basophils # (Auto) 0.02 K/uL RDW Standard Deviation 50.8 fL RDW Coefficient of Variation 18.9 % Immature Granulocyte % (Auto) 0.1 % Immature Granulocyte # (Auto) 0.01 K/uL Hypersegmented Polys 1+ Toxic Granulation 1+ Hypochromasia PRESENT Anisocytosis PRESENT Microcytosis PRESENT Ovalocytes 1+ Sodium Level 131 mmol/L Potassium Level 4.8 mmol/L Chloride Level 94 mmol/L Carbon Dioxide Level 29 mmol/L Anion Gap 8.0 mmol/L Blood Urea Nitrogen 87 mg/dl Creatinine 2.33 mg/dl Est Creatinine Clear Calc Drug Dose 32.3 ml/min Estimated GFR () 25.7 Estimated GFR (Non- 22.2 BUN/Creatinine Ratio 37.3 Random Glucose 284 mg/dl Calcium Level 9.1 mg/dl EKG (06/25/2017): Sinus tachycardia, right axis deviation, possible RVH Echo (04/2015): RV is severely dilated with moderate to severely reduced function, estimated PA SP 65, normal LV function, dilated IVC with estimated RA of Assessment & Plan 1. Right heart failure 2. Pulmonary hypertension secondary to COPD/obstructive sleep apnea 3. Persistent lower extremity edema 4. Recurrent lower extremity ulcerations 5. MRSA wound infection 6. Acute on chronic renal insufficiency 7. Type 2 diabetes 8. Urinary tract infection Patient is well perfused with persistent systemic venous congestion on exam. No significant pulmonary congestion. Previous echo notable for severe RV dilatation and dysfunction in the setting of moderate to severe pulmonary hypertension. Since admission she has been placed back on her prior home diuretics and is negative more than 4 Ls. Renal function remains stable. At this point diuresis appears to be adequate and would continue on current oral diuretics-- Bumex 1 mg b.i.d. and daily spironolactone Continue to monitor I/Os, renal function, and electrolytes. For now would hold off on additional Zaroxolyn No indication repeat cardiac imaging at this time.
[2017-06-27] MEDS: CEFTRIAXONE SOD INJ 1 GM in DEXTROSE 5% ADD-VANTAGE 50ML 50 ML IV SCH (18:24)
--- NOTE | 2017-06-27 18:26 | Progress Note ---
Subjective Date of Service: Jun 27, 2017. Subjective Patient is seen in good diuresis with Bumex to the bargaining whether by mouth or IV she is seeing wound care for lower extremities cardiology for her right heart failure. Today she requested IV Bumex in the morning and in question IV Bumex in the afternoon requiring a phone call to cardiology did which then changed back to by mouth. Continue to watch daily weights for good fluid output and weight reduction. Wound care once nonweightbearing of her heel this may necessitate disposition consideration at discharge Problem List Medical Problems: (1) Acute renal disease Status: Acute (2) Acute renal failure Status: Acute (3) ELIZABETH (acute kidney injury) Status: Acute (4) Cellulitis Status: Acute (5) Cellulitis of both lower extremities Status: Acute (6) CHF (congestive heart failure) Status: Acute (7) CHF (congestive heart failure) Status: Acute (8) Dehydration Status: Acute (9) Fluid overload Status: Acute (10) Hypoxia Status: Acute (11) MRSA (methicillin resistant Staphylococcus aureus) infection Status: Chronic (12) Pickwickian syndrome Status: Acute (13) Pneumonia Status: Acute (14) Respiratory failure Status: Acute (15) Sacral decubitus ulcer, stage III Status: Acute (16) UTI (urinary tract infection) Status: Acute Review of Systems Constitutional: No fever, No chills, No weakness Respiratory: No cough, No shortness of breath, No dyspnea on exertion Cardiac: + orthopnea, + edema, No chest pain Abdomen: No pain, No nausea, No vomiting Musculoskeletal: + joint pain, + muscle pain, + swelling Skin: + new/changing skin lesions, + color change Objective Vital Signs Date Time Temp Pulse Resp B/P (MAP) Pulse Ox O2 Delivery O2 Flow Rate FiO2 06/27/17 15:56 36.4 72 20 102/57 (72) 91 Nasal Cannula 06/27/17 08:15 Nasal Cannula 3.0 06/27/17 07:18 36.6 103 16 97/62 (74) 92 CPAP 06/27/17 00:13 36.5 104 20 108/59 (75) 90 Nasal Cannula 3.0 Physical Exam General Appearance: + mild distress, + obese Eyes: PERRL, EOMI Respiratory/Chest: chest non-tender, + decreased breath sounds, + accessory muscle use Cardiovascular: regular rate, rhythm, + systolic murmur Abdomen: normal bowel sounds, non tender, soft Extremities: + pedal edema, + swelling, + pertinent finding (3 cm or larger open area to the medial aspect of right heel) Laboratory Results Last 24 Hours Test 06/27/17 07:48 06/27/17 09:21 06/27/17 16:12 Bedside Glucose 185 mg/dl 140 mg/dl White Blood Count 9.05 K/uL Red Blood Count 4.26 M/uL Hemoglobin 9.0 g/dL Hematocrit 31.0 % Mean Corpuscular Volume 72.8 fL Mean Corpuscular Hemoglobin 21.1 pg Mean Corpuscular Hemoglobin Concent 29.0 g/dl Platelet Count 239 K/uL Mean Platelet Volume 9.6 fL Neutrophils (%) (Auto) 80.9 % Lymphocytes (%) (Auto) 10.2 % Monocytes (%) (Auto) 7.7 % Eosinophils (%) (Auto) 0.9 % Basophils (%) (Auto) 0.2 % Neutrophils # (Auto) 7.32 K/uL Lymphocytes # (Auto) 0.92 K/uL Monocytes # (Auto) 0.70 K/uL Eosinophils # (Auto) 0.08 K/uL Basophils # (Auto) 0.02 K/uL RDW Standard Deviation 50.8 fL RDW Coefficient of Variation 18.9 % Immature Granulocyte % (Auto) 0.1 % Immature Granulocyte # (Auto) 0.01 K/uL Hypersegmented Polys 1+ Toxic Granulation 1+ Hypochromasia PRESENT Anisocytosis PRESENT Microcytosis PRESENT Ovalocytes 1+ Sodium Level 131 mmol/L Potassium Level 4.8 mmol/L Chloride Level 94 mmol/L Carbon Dioxide Level 29 mmol/L Anion Gap 8.0 mmol/L Blood Urea Nitrogen 87 mg/dl Creatinine 2.33 mg/dl Est Creatinine Clear Calc Drug Dose 32.3 ml/min Estimated GFR () 25.7 Estimated GFR (Non- 22.2 BUN/Creatinine Ratio 37.3 Random Glucose 284 mg/dl Calcium Level 9.1 mg/dl Assessment and Plan 57-year-old female sent from wound clinic due to the development of a large right heel bullae with some dusky areas within it and significant right heart failure with peripheral edema and abdominal edema For the leg infection and MRSA and Escherichia coli patient is on daptomycin and ceftriaxone with infectious disease following For the mechanical ulceration patient has weight reduction Rodney upon positioning wound care as he debrided her wound will continue to follow the ability to not place weight on her heel he require SNIF placement until the wound heals For her right heart failure intravenous loop diuretics were ordered per patient request however she then wished for them to be changed back to by mouth. She is also using metolazone daily weights will be watched For diabetes basal bolus insulin will be continued she has had reasonable control For her severe sleep apnea will use CPAP at night for chronic respiratory disease COPD we'll maintain her inhaled medicines Documented By: Kaiden Syed
[2017-06-27] MEDS ORDERED: NURSING DECISION MEDICATION ORDER SCH (23:00)
[2017-06-27] MEDS ORDERED: MICONAZOLE NITRATE POWDER 43 GM EXT PRN (23:15)
[2017-06-27 23:30] VITALS: BP 129/80; PULSE 104; TEMP 36.6; O2SAT 92
[2017-06-28] MEDS: HEPARIN SOD 5000 UNIT/0.5 ML CARP SQ SCH ×3 (05:41→20:48)
[2017-06-28 07:46] LABS: BASO % 0.2 %; BASO ABS # 0.02 K/uL (0-0.2); EOS % 1.1 %; IG# 0.02 K/uL (0.00-0.02); LYMPH % 10.1 %; LYMPH ABS # 0.93 K/uL (1.2-3.4); MEAN CELL VOLUME 71.8 fL (80-100); MEAN CORPUSCULAR HEMOGLOBIN 20.8 pg (25-34); MONO % 7.1 %; MONO ABS # 0.65 K/uL (0.11-0.59); NEUT % 81.3 %; NEUT ABS # 7.48 K/uL (1.4-6.5); PLATELET COUNT 248 K/uL (130-400); RED CELL DISTRIBUTION WIDTH CV 18.8 % (11.5-14.5); RED CELL DISTRIBUTION WIDTH SD 50.2 fL (36.4-46.3)
[2017-06-28 08:08] VITALS: BP 117/71; PULSE 109; TEMP 36.7; O2SAT 90
[2017-06-28] MEDS: DAPTOmycin IV 650 MG in SYRINGE 0 ML IV SCH (08:23)
[2017-06-28] MEDS: BUMETANIDE 1 MG TAB PO SCH ×2 (08:24→19:51)
[2017-06-28] MEDS: SPIRONOLACTONE 25 MG TAB PO SCH (08:26)
[2017-06-28] MEDS: EUCERIN CR 120 GM JAR EXT SCH ×2 (08:27→20:49)
[2017-06-28] MEDS: INSULIN ASPART 100 UNITS/ML 3 ML PEN SC SCH ×4 (08:33→20:56)
--- NOTE | 2017-06-28 10:05 | Cardiology Follow-Up ---
Subjective Subjective Date of Service: Jun 28, 2017. Pt evaluation today including: conversation w/ patient, physical exam, chart review, lab review, review of studies, review of inpatient medication list Additional Details: Denies significant chest pain, shortness of breath, fevers/chills. Endorses decrease lower extremity swelling, redness -1500 milliliters yesterday Problem List Medical Problems: (1) Acute renal disease Status: Acute (2) Acute renal failure Status: Acute (3) ELIZABETH (acute kidney injury) Status: Acute (4) Cellulitis Status: Acute (5) Cellulitis of both lower extremities Status: Acute (6) CHF (congestive heart failure) Status: Acute (7) CHF (congestive heart failure) Status: Acute (8) Dehydration Status: Acute (9) Fluid overload Status: Acute (10) Hypoxia Status: Acute (11) MRSA (methicillin resistant Staphylococcus aureus) infection Status: Chronic (12) Pickwickian syndrome Status: Acute (13) Pneumonia Status: Acute (14) Respiratory failure Status: Acute (15) Sacral decubitus ulcer, stage III Status: Acute (16) UTI (urinary tract infection) Status: Acute Review of Systems Constitutional: No fever, No chills, No weakness Respiratory: No cough, No shortness of breath, No dyspnea on exertion Cardiac: + orthopnea, + edema, No chest pain Breast: + see HPI Abdomen: No pain, No nausea, No vomiting Musculoskeletal: + joint pain, + muscle pain, + swelling Neurologic: + weakness Skin: + new/changing skin lesions, + color change Objective Vital Signs Last Vital Signs Documentation Date Time Temp Pulse Resp B/P (MAP) Pulse Ox O2 Delivery O2 Flow Rate FiO2 06/28/17 08:30 Nasal Cannula 4.0 06/28/17 08:08 36.7 109 20 117/71 (86) 90 Physical Exam: General Appearance: no apparent distress, + obese ENT: normal ENT inspection, pharynx normal Neck: supple, no adenopathy, thyroid normal, trachea midline Respiratory/Chest: chest non-tender, + decreased breath sounds Cardiovascular: regular rate, rhythm, + systolic murmur (at right lower sternal border) Abdomen: normal bowel sounds, non tender, soft Extremities: + pedal edema, + swelling (1-2+ edema - improved from 2 days ago) , + pertinent finding (heel ulcerations dressed. superficial ulcerations bilaterally over shins. surrounding erythema somewhat reduced from yesterday) Neurologic/Psychiatric: alert, oriented x 3 Skin: normal color, + pertinent finding ( right leg and heel ulcerations) Lymphatic: no adenopathy Assessment and Plan 1. Right heart failure 2. Pulmonary hypertension secondary to COPD/obstructive sleep apnea 3. Persistent lower extremity edema 4. Recurrent lower extremity ulcerations 5. MRSA wound infection 6. Acute on chronic renal insufficiency/hyponatremia 7. Type 2 diabetes 8. Urinary tract infection Improving systemic venous congestion/lower extremity edema. Negative more than 6 liters since admission, renal function stable, mild hyponatremia today --would continue current p.o. diuretics-- Bumex 1 mg b.i.d. and daily spironolactone (discontinue spironolactone if potassium continues to trend up). --hold off on additional Zaroxolyn with hyponatremia --Continue to monitor I/Os, renal function, and electrolytes. Medications: Current Inpatient Medications Medications (Trade) Dose Ordered Sig/Bruno Route Start Time Stop Time Status Last Admin Dose Admin Acetaminophen (Tylenol Tab) 650 mg Q4H PRN PO 06/25/17 14:45 07/25/17 14:44 Magnesium Hydroxide (Milk Of Magnesia Susp) 30 ml Q6H PRN PO 06/25/17 14:45 07/25/17 14:44 Polyethylene (Miralax Powder Packet) 17 gm DAILY PRN PO 06/25/17 14:45 07/25/17 14:44 Ondansetron HCl (Zofran Inj) 4 mg Q6H PRN IV 06/25/17 14:45 07/25/17 14:44 Multi-Ingredient Ointment (Eucerin Unscented Cr) 1 appln BID EXT 06/25/17 21:00 07/25/17 20:59 06/28/17 08:27 1 APPLN Metolazone (Zaroxolyn Tab) 5 mg TuTh@0830 PO 06/27/17 08:30 07/27/17 08:29 06/27/17 08:24 5 MG Spironolactone (Aldactone Tab) 25 mg DAILY PO 06/26/17 09:00 07/26/17 08:59 06/28/17 08:26 25 MG Insulin Aspart (novoLOG ASPART) SLIDING SCALE If C... ACHS SC 06/25/17 16:30 07/25/17 16:29 06/28/17 08:33 3 UNITS Glucose (Glucose 40% Gel) 15-30 GRAMS 15 GRAMS... UD PRN PO 06/25/17 15:30 07/25/17 15:29 Glucose (Glucose Chew Tab) 4-8 Tablets 4 Tabl... UD PRN PO 06/25/17 15:30 07/25/17 15:29 Dextrose (Dextrose 50% 50ML Syringe) 25-50ML OF 50% DW IV FOR... UD PRN IV 06/25/17 15:30 07/25/17 15:29 Glucagon (Glucagon Inj) 1 mg UD PRN SQ 06/25/17 15:30 07/25/17 15:29 Heparin Sodium (Porcine) (Heparin Sq 5000 Unit/0.5ml) 5,000 unit Q8 SQ 06/25/17 22:00 07/25/17 21:59 Daptomycin 650 mg/ Syringe 13 ml @ 6.5 mls/min DAILY@0800 IV 06/26/17 08:00 07/05/17 07:59 06/28/17 08:23 6.5 MLS/MIN Oxycodone HCl (Roxicodone Immediate Rel Tab) 5 mg Q8H PRN PO 06/26/17 01:00 07/09/17 14:44 06/27/17 20:25 5 MG Zolpidem Tartrate (Ambien Tab) 5 mg HS PRN PO 06/26/17 21:00 07/25/17 20:59 06/27/17 22:48 5 MG Ceftriaxone Sodium 1 gm/ Dextrose 50 ml @ 100 mls/hr DAILY@1800 IV 06/26/17 18:00 07/01/17 17:59 06/27/17 18:24 100 MLS/HR Bumetanide (Bumex Tab) 1 mg BID17 PO 06/28/17 09:00 07/28/17 08:59 06/28/17 08:24 1 MG Miconazole Nitrate (Desenex Powder) 1 appln PRN PRN EXT 06/27/17 23:15 07/27/17 23:14 Lab Results: 06/28/17 06:57 Red Blood Count 4.32, Mean Corpuscular Volume 71.8, Mean Corpuscular Hemoglobin 20.8, Mean Corpuscular Hemoglobin Concent 29.0, Mean Platelet Volume 10.0, Neutrophils (%) (Auto) 81.3, Lymphocytes (%) (Auto) 10.1, Monocytes (%) (Auto) 7.1, Eosinophils (%) (Auto) 1.1, Basophils (%) (Auto) 0.2, Neutrophils # (Auto) 7.48, Lymphocytes # (Auto) 0.93, Monocytes # (Auto) 0.65, Eosinophils # (Auto) 0.10, Basophils # (Auto) 0.02 Test 06/28/17 06:57 06/28/17 07:33 White Blood Count 9.20 K/uL (4.8-10.8) Red Blood Count 4.32 M/uL (4.2-5.4) Hemoglobin 9.0 g/dL (12.0-16.0) Hematocrit 31.0 % (37-47) Mean Corpuscular Volume 71.8 fL (80-100) Mean Corpuscular Hemoglobin 20.8 pg (25-34) Mean Corpuscular Hemoglobin Concent 29.0 g/dl (32-36) Platelet Count 248 K/uL (130-400) Mean Platelet Volume 10.0 fL (7.4-10.4) Neutrophils (%) (Auto) 81.3 % Lymphocytes (%) (Auto) 10.1 % Monocytes (%) (Auto) 7.1 % Eosinophils (%) (Auto) 1.1 % Basophils (%) (Auto) 0.2 % Neutrophils # (Auto) 7.48 K/uL (1.4-6.5) Lymphocytes # (Auto) 0.93 K/uL (1.2-3.4) Monocytes # (Auto) 0.65 K/uL (0.11-0.59) Eosinophils # (Auto) 0.10 K/uL (0-0.5) Basophils # (Auto) 0.02 K/uL (0-0.2) RDW Standard Deviation 50.2 fL (36.4-46.3) RDW Coefficient of Variation 18.8 % (11.5-14.5) Immature Granulocyte % (Auto) 0.2 % Immature Granulocyte # (Auto) 0.02 K/uL (0.00-0.02) Hypochromasia PRESENT Anisocytosis PRESENT Microcytosis PRESENT Ovalocytes 1+ Schistocytes 1+ Bedside Glucose 237 mg/dl (70-90)
[2017-06-28] MEDS: OXYCODONE HCL IR 5 MG TAB (IMMEDIATE RELEASE) PO PRN ×3 (13:22→22:37)
[2017-06-28 13:32] VITALS: Ht 167.6 cm; Wt 108.1 kg
--- NOTE | 2017-06-28 14:01 | Wound Progress Note: Inpatient ---
Wound Progress Note Date of Service Jun 26, 2017. Subjective Pt evaluation today including: conversation w/ patient, physical exam, chart review Patient is seen today for further consultation of ulcerations in both her heels. Patient is well-known to the [facility] wound clinic and was last seen 1 week ago for chronic care in this regard as well as a chronic sacral ulcer with associated osteomyelitis. Patient denies any other systemic complaints at this time. Objective Vital Signs Date Time Temp Pulse Resp B/P (MAP) Pulse Ox O2 Delivery O2 Flow Rate FiO2 06/28/17 08:30 Nasal Cannula 4.0 06/28/17 08:08 36.7 109 20 117/71 (86) 90 06/28/17 00:17 Nasal Cannula 4.0 06/27/17 23:30 36.6 104 20 129/80 (96) 92 Room Air 06/27/17 23:30 3.0 06/27/17 22:35 3.0 06/27/17 16:00 91 Nasal Cannula 3.0 06/27/17 15:56 36.4 72 20 102/57 (72) 91 Nasal Cannula Physical Exam Notes: Patients vital signs were reviewed and found to be unremarkable patient is afebrile. There is a blister formation with associated deep tissue injury noted in the right heel measuring 4.5 x 8 x 0.1 cm. There is no active drainage or odor noted. There is some periwound maceration but no periwound erythema present. A stable stage II pressure ulcer is present in the left heel unchanged from her prior visit 1 week ago. No active drainage or periwound erythema noted. Laboratory Results Last 24 Hours Test 06/27/17 16:12 06/28/17 06:57 06/28/17 07:33 06/28/17 11:13 Bedside Glucose 140 mg/dl 237 mg/dl 325 mg/dl White Blood Count 9.20 K/uL Red Blood Count 4.32 M/uL Hemoglobin 9.0 g/dL Hematocrit 31.0 % Mean Corpuscular Volume 71.8 fL Mean Corpuscular Hemoglobin 20.8 pg Mean Corpuscular Hemoglobin Concent 29.0 g/dl Platelet Count 248 K/uL Mean Platelet Volume 10.0 fL Neutrophils (%) (Auto) 81.3 % Lymphocytes (%) (Auto) 10.1 % Monocytes (%) (Auto) 7.1 % Eosinophils (%) (Auto) 1.1 % Basophils (%) (Auto) 0.2 % Neutrophils # (Auto) 7.48 K/uL Lymphocytes # (Auto) 0.93 K/uL Monocytes # (Auto) 0.65 K/uL Eosinophils # (Auto) 0.10 K/uL Basophils # (Auto) 0.02 K/uL RDW Standard Deviation 50.2 fL RDW Coefficient of Variation 18.8 % Immature Granulocyte % (Auto) 0.2 % Immature Granulocyte # (Auto) 0.02 K/uL Hypochromasia PRESENT Anisocytosis PRESENT Microcytosis PRESENT Ovalocytes 1+ Schistocytes 1+ Assessment and Plan Assessment: Deep tissue injury with associated stage II pressure ulcer right heel Stage II pressure ulcer left heel Plan: Debridement is indicated on the right heel. After the application of topical Xylocaine with patient's permission and the site was debrided with a combination of scissors and forceps and a #5 curette. Minimal bleeding occurred which was controlled with direct pressure followed debridement distal was a persistent underlying deep tissue injury noted. The sites will be dressed with Aquacel Ag and gauze changed on a daily basis patient is instructed to wear her waffle boots which she has not been doing during all activities and in the daytime. Will continue to be monitored during her hospital course and reevaluated in the outpatient clinic upon discharge. This represented a non-excisional debridement of 36 cm.
[2017-06-28] MEDS ORDERED: NURSING DECISION MEDICATION ORDER SCH (14:15)
[2017-06-28] MEDS ORDERED: COUGH DROP (SUGAR FREE) LOZ 24 LOZ/1 BOX PO PRN (14:30)
[2017-06-28 15:10] VITALS: BP 119/73; PULSE 109; TEMP 37; O2SAT 90
[2017-06-28] MEDS: CEFTRIAXONE SOD INJ 1 GM in DEXTROSE 5% ADD-VANTAGE 50ML 50 ML IV SCH (17:42)
[2017-06-28 18:00] VITALS: O2SAT 93
[2017-06-28] MEDS ORDERED: FLUCONAZOLE 50 MG TAB PO ONE (18:30)
--- NOTE | 2017-06-28 20:31 | Progress Note ---
Subjective Date of Service: Jun 28, 2017. Subjective Pt evaluation today including: conversation w/ patient, physical exam, chart review, lab review, review of studies, conversation w/ merchandising consultant (infectious disease ), review of inpatient medication list Pain: nothing at this time PO Intake: normal Voiding: rodriguez catheter in place patient without complaints agitated that she is "back in the hospital" and "I'm not going home until you have everything worked out" [with her health] Problem List Medical Problems: (1) Acute renal disease Status: Acute (2) Acute renal failure Status: Acute (3) ELIZABETH (acute kidney injury) Status: Acute (4) Cellulitis Status: Acute (5) Cellulitis of both lower extremities Status: Acute (6) CHF (congestive heart failure) Status: Acute (7) CHF (congestive heart failure) Status: Acute (8) Dehydration Status: Acute (9) Fluid overload Status: Acute (10) Hypoxia Status: Acute (11) MRSA (methicillin resistant Staphylococcus aureus) infection Status: Chronic (12) Pickwickian syndrome Status: Acute (13) Pneumonia Status: Acute (14) Respiratory failure Status: Acute (15) Sacral decubitus ulcer, stage III Status: Acute (16) UTI (urinary tract infection) Status: Acute Review of Systems Constitutional: No fever Respiratory: No dyspnea at rest Cardiac: No chest pain Abdomen: No pain Objective Vital Signs Date Time Temp Pulse Resp B/P (MAP) Pulse Ox O2 Delivery O2 Flow Rate FiO2 06/28/17 16:00 Nasal Cannula 4.0 06/28/17 15:10 37.0 109 20 119/73 (88) 90 06/28/17 08:30 Nasal Cannula 4.0 06/28/17 08:08 36.7 109 20 117/71 (86) 90 06/28/17 00:17 Nasal Cannula 4.0 06/27/17 23:30 36.6 104 20 129/80 (96) 92 Room Air 06/27/17 23:30 3.0 06/27/17 22:35 3.0 Physical Exam General Appearance: no apparent distress ENT: pharynx normal Neck: no JVD Respiratory/Chest: lungs clear, no respiratory distress, no accessory muscle use Cardiovascular: regular rate, rhythm, no gallop, + systolic murmur (2/6 EBEN LSB ) Abdomen: normal bowel sounds, non tender, soft, no organomegaly Extremities: + pedal edema (trace-1+ b/l ) Neurologic/Psychiatric: alert, oriented x 3 Skin: + pertinent finding (right heel ulcer with mild drainage, no erythema on the periphery; numerous other smaller ulcerations on the shins) Laboratory Results Last 24 Hours Test 06/28/17 06:57 06/28/17 07:33 06/28/17 11:13 06/28/17 16:34 White Blood Count 9.20 K/uL Red Blood Count 4.32 M/uL Hemoglobin 9.0 g/dL Hematocrit 31.0 % Mean Corpuscular Volume 71.8 fL Mean Corpuscular Hemoglobin 20.8 pg Mean Corpuscular Hemoglobin Concent 29.0 g/dl Platelet Count 248 K/uL Mean Platelet Volume 10.0 fL Neutrophils (%) (Auto) 81.3 % Lymphocytes (%) (Auto) 10.1 % Monocytes (%) (Auto) 7.1 % Eosinophils (%) (Auto) 1.1 % Basophils (%) (Auto) 0.2 % Neutrophils # (Auto) 7.48 K/uL Lymphocytes # (Auto) 0.93 K/uL Monocytes # (Auto) 0.65 K/uL Eosinophils # (Auto) 0.10 K/uL Basophils # (Auto) 0.02 K/uL RDW Standard Deviation 50.2 fL RDW Coefficient of Variation 18.8 % Immature Granulocyte % (Auto) 0.2 % Immature Granulocyte # (Auto) 0.02 K/uL Hypochromasia PRESENT Anisocytosis PRESENT Microcytosis PRESENT Ovalocytes 1+ Schistocytes 1+ Bedside Glucose 237 mg/dl 325 mg/dl 245 mg/dl Assessment and Plan 57yo female - 1. right heel ulceration with superimposed infection - continue daptomycin. Day #4 of such. Spoke with Dr. Brown from ID - plan for PICC line and extended course of antibiotics. PICC consent obtained. Appreciate wound care consultation as well. 2. complicated e. coli UTI due to chronic rodriguez usage - day #3 of rocephin; plan 5 days of such then d/c. 3. acute/chronic right-sided CHF/diastolic CHF - improved; volume status approaching euvolemia. Cont BB, bumex, etc. 4. acute kidney injury in setting of CKD stage 3 - creatinine stable during this stay. 5. T2DM, uncontrolled - add lantus 15 units HS. 6. DVT proph - heparin. 7. stage IV sacral decubitus ulcer - noted. 8. 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 9. COPD with chronic hypoxic respiratory failure - stable. 10. hyponatremia - due to CKD, diuresis, etc. Follow w/ daily BMP. d/c home this weekend with home health and IV abx? Continued [facility] stay due to: multiple IV medications needed Discharge planning: home with home health, home with IV medication
[2017-06-28] MEDS: INSULIN GLARGINE SOLOSTAR 100 UNITS/ML 3 ML PEN SC SCH (20:57)
[2017-06-29 00:46] VITALS: BP 135/84; PULSE 99; TEMP 36.7; O2SAT 91
[2017-06-29] MEDS: ACETAMINOPHEN 325 MG TAB PO PRN ×2 (03:45→10:29)
[2017-06-29] MEDS: HEPARIN SOD 5000 UNIT/0.5 ML CARP SQ SCH ×4 (06:00→20:19)
[2017-06-29 06:35] LABS: CALCIUM 8.7 mg/dl (8.5-10.1); CREATININE 2.46 mg/dl (0.60-1.20); POTASSIUM 4.5 mmol/L (3.5-5.1)
[2017-06-29 07:25] VITALS: BP 106/62; PULSE 103; TEMP 36.8; O2SAT 92
[2017-06-29] MEDS: BUMETANIDE 1 MG TAB PO SCH (08:44)
[2017-06-29] MEDS: DAPTOmycin IV 650 MG in SYRINGE 0 ML IV SCH (08:44)
[2017-06-29] MEDS: SPIRONOLACTONE 25 MG TAB PO SCH (08:45)
[2017-06-29] MEDS: EUCERIN CR 120 GM JAR EXT SCH ×3 (08:48→20:14)
[2017-06-29] MEDS: INSULIN ASPART 100 UNITS/ML 3 ML PEN SC SCH ×4 (08:52→20:18)
[2017-06-29] MEDS: FERROUS SULFATE 325 MG TAB PO SCH ×2 (09:15→17:00)
[2017-06-29] MEDS: OXYCODONE HCL IR 5 MG TAB (IMMEDIATE RELEASE) PO PRN ×2 (12:52→20:28)
[2017-06-29 15:07] VITALS: BP 123/66; PULSE 98; TEMP 36.6; O2SAT 95
[2017-06-29 15:41] VITALS: O2SAT 95
[2017-06-29] MEDS ORDERED: NURSING VERBAL MED ORDER ONE (17:30)
[2017-06-29] MEDS: CEFTRIAXONE SOD INJ 1 GM in DEXTROSE 5% ADD-VANTAGE 50ML 50 ML IV SCH (18:07)
[2017-06-29] MEDS ORDERED: BUMETANIDE 1 MG TAB PO SCH (19:30)
[2017-06-29] MEDS: INSULIN GLARGINE SOLOSTAR 100 UNITS/ML 3 ML PEN SC SCH (20:17)
--- NOTE | 2017-06-29 21:35 | Progress Note ---
Subjective Date of Service: Jun 29, 2017. Subjective Pt evaluation today including: conversation w/ patient, physical exam, chart review, lab review, review of inpatient medication list Pain: buttocks, feet PO Intake: normal; constantly eating crackers Voiding: rodriguez catheter in place patient refused lantus last pm patient refusing heparin injections for DVT proph patient refusing iron tablets stating "I'll just eat more meat" refusing certain doses of novolog PICC line team wanted to place PICC today - patient told them to come back tomorrow when asked what her goals of care were she said "I want my ulcers and infections to go away" Problem List Medical Problems: (1) Acute renal disease Status: Acute (2) Acute renal failure Status: Acute (3) ELIZABETH (acute kidney injury) Status: Acute (4) Cellulitis Status: Acute (5) Cellulitis of both lower extremities Status: Acute (6) CHF (congestive heart failure) Status: Acute (7) CHF (congestive heart failure) Status: Acute (8) Dehydration Status: Acute (9) Fluid overload Status: Acute (10) Hypoxia Status: Acute (11) MRSA (methicillin resistant Staphylococcus aureus) infection Status: Chronic (12) Pickwickian syndrome Status: Acute (13) Pneumonia Status: Acute (14) Respiratory failure Status: Acute (15) Sacral decubitus ulcer, stage III Status: Acute (16) UTI (urinary tract infection) Status: Acute Review of Systems Constitutional: No fever, No chills Respiratory: No dyspnea at rest Cardiac: No chest pain Abdomen: No pain Objective Vital Signs Date Time Temp Pulse Resp B/P (MAP) Pulse Ox O2 Delivery O2 Flow Rate FiO2 06/29/17 15:41 95 Nasal Cannula 4.0 06/29/17 15:07 36.6 98 20 123/66 (85) 95 Nasal Cannula 4.0 06/29/17 09:00 Nasal Cannula 3.0 06/29/17 07:25 36.8 103 20 106/62 (77) 92 Nasal Cannula 3.0 06/29/17 00:46 36.7 99 20 135/84 (101) 91 3.0 06/29/17 00:00 Nasal Cannula 4.0 Physical Exam General Appearance: no apparent distress, + obese ENT: pharynx normal Neck: + JVD Respiratory/Chest: lungs clear, normal breath sounds, no respiratory distress, no accessory muscle use Cardiovascular: regular rate, rhythm, no gallop, + systolic murmur (2/6 LSB) Abdomen: normal bowel sounds, non tender, soft, no organomegaly, + hernia ( umbilical ) Extremities: + pedal edema (right leg - <1+; left leg - trace; right leg is larger than left leg) Neurologic/Psychiatric: alert, oriented x 3 Skin: + pertinent finding (dressings intact b/l feet; numerous ulcers on both shins - no change; venous stasis changes b/l ) Laboratory Results Last 24 Hours Test 06/29/17 05:43 06/29/17 07:40 06/29/17 11:36 Sodium Level 134 mmol/L Potassium Level 4.5 mmol/L Chloride Level 95 mmol/L Carbon Dioxide Level 28 mmol/L Anion Gap 11.0 mmol/L Blood Urea Nitrogen 92 mg/dl Creatinine 2.46 mg/dl Est Creatinine Clear Calc Drug Dose 30.6 ml/min Estimated GFR () 24.1 Estimated GFR (Non- 20.8 BUN/Creatinine Ratio 37.3 Random Glucose 288 mg/dl Calcium Level 8.7 mg/dl Magnesium Level 1.8 mg/dl Iron Level 26 mcg/dl Total Iron Binding Capacity 320 mcg/dl Transferrin 253 mg/dl Transferrin % Saturation 7 % Ferritin 30.6 ng/ml Bedside Glucose 246 mg/dl 296 mg/dl Assessment and Plan 57yo female - 1. right heel ulceration with superimposed infection - continue daptomycin for MRSA from culture. Day #5 of such. Spoke with Dr. Brown from ID - plan for PICC line and extended course of antibiotics. PICC consent obtained. Appreciate wound care consultation as well. 2. complicated e. coli UTI due to chronic rodriguez usage - day #4 of rocephin; plan 5 days of such then d/c. 3. acute/chronic right-sided CHF/diastolic CHF - improved; volume status likely at euvolemia with rising BUN/Cr. Hold bumex/aldactone while awaiting repeat labs in am. Cont BB. 4. acute kidney injury in setting of CKD stage 3 5. T2DM, uncontrolled - lengthy discussion held with patient about importance of glycemic control to help promote wound healing, etc. Encouraged basal-bolus insulin. She agreed to lantus tonight. 6. DVT proph - heparin, but patient refusing. 7. stage IV sacral decubitus ulcer - noted. 8. 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 9. COPD with chronic hypoxic respiratory failure - stable. 10. hyponatremia - due to CKD, diuresis, etc. Follow w/ daily BMP. 11. iron def anemia - appears chronic x 1-2 years. refusing PO iron. explained importance of such. Continued [facility] stay due to: multiple IV medications needed Discharge planning: home with home health, home with IV medication
[2017-06-30 00:32] VITALS: BP 102/73; PULSE 91; TEMP 36.8; O2SAT 92
[2017-06-30] MEDS: ACETAMINOPHEN 325 MG TAB PO PRN ×2 (01:36→13:36)
[2017-06-30] MEDS: HEPARIN SOD 5000 UNIT/0.5 ML CARP SQ SCH ×3 (06:00→20:40)
[2017-06-30] MEDS: INSULIN ASPART 100 UNITS/ML 3 ML PEN SC SCH ×4 (06:30→20:40)
[2017-06-30 06:43] LABS: HEMATOCRIT 31.3 % (37-47); HEMOGLOBIN 9.1 g/dL (12.0-16.0)
[2017-06-30 07:17] LABS: CALCIUM 9.4 mg/dl (8.5-10.1); CREATININE 2.29 mg/dl (0.60-1.20); POTASSIUM 4.7 mmol/L (3.5-5.1)
[2017-06-30] MEDS: FERROUS SULFATE 325 MG TAB PO SCH ×2 (07:55→15:48)
[2017-06-30] MEDS: DAPTOmycin IV 650 MG in SYRINGE 0 ML IV SCH (07:58)
[2017-06-30] MEDS: EUCERIN CR 120 GM JAR EXT SCH ×2 (09:00→20:40)
[2017-06-30] MEDS: OXYCODONE HCL IR 5 MG TAB (IMMEDIATE RELEASE) PO PRN ×2 (09:07→21:29)
[2017-06-30] MEDS ORDERED: GLIMEPIRIDE 2 MG TAB PO ONE (12:15)
[2017-06-30 15:01] VITALS: BP 119/78; PULSE 104; TEMP 36.9; O2SAT 92
[2017-06-30 16:00] VITALS: O2SAT 92
--- NOTE | 2017-06-30 16:51 | Progress Note ---
Subjective Date of Service: Jun 30, 2017. Subjective Pt evaluation today including: conversation w/ patient, physical exam, chart review, lab review Pain: buttock, legs PO Intake: normal; frequent snacking as well Voiding: rodriguez catheter in place (due for it to be changed) patient refused her arterial doppler twice overnight/this AM she DID get her PICC line this am continues to refuse novolog with meals she requests her amaryl to be re-instated again continues to refuse iron supplement asks why her aldactone/bumex were held willing to have rodriguez exchanged but not today Problem List Medical Problems: (1) Acute renal disease Status: Acute (2) Acute renal failure Status: Acute (3) ELIZABETH (acute kidney injury) Status: Acute (4) Cellulitis Status: Acute (5) Cellulitis of both lower extremities Status: Acute (6) CHF (congestive heart failure) Status: Acute (7) CHF (congestive heart failure) Status: Acute (8) Dehydration Status: Acute (9) Fluid overload Status: Acute (10) Hypoxia Status: Acute (11) MRSA (methicillin resistant Staphylococcus aureus) infection Status: Chronic (12) Pickwickian syndrome Status: Acute (13) Pneumonia Status: Acute (14) Respiratory failure Status: Acute (15) Sacral decubitus ulcer, stage III Status: Acute (16) UTI (urinary tract infection) Status: Acute Review of Systems Constitutional: No fever Respiratory: No dyspnea at rest Cardiac: No chest pain Abdomen: No pain Objective Vital Signs Date Time Temp Pulse Resp B/P (MAP) Pulse Ox O2 Delivery O2 Flow Rate FiO2 06/30/17 16:00 92 Nasal Cannula 4.0 06/30/17 15:01 36.9 104 20 119/78 (92) 92 Nasal Cannula 3.0 06/30/17 08:00 Nasal Cannula 4.0 06/30/17 00:32 36.8 91 20 102/73 (83) 92 4.0 06/30/17 00:00 Nasal Cannula 4.0 06/29/17 20:00 Nasal Cannula 4.0 Physical Exam General Appearance: no apparent distress, + obese ENT: pharynx normal Neck: + JVD Respiratory/Chest: lungs clear, no respiratory distress, no accessory muscle use Cardiovascular: regular rate, rhythm, no gallop, + systolic murmur (2/6 LSB) Abdomen: normal bowel sounds, non tender, soft, no organomegaly Extremities: + pedal edema (trace b/l) Neurologic/Psychiatric: alert, oriented x 3 Skin: + pertinent finding (ulceration, left heel - mild amount of drainage otherwise clean; right leg and heel ulcerations NOT examined today as they were just dressed ) Laboratory Results Last 24 Hours Test 06/30/17 06:29 06/30/17 07:49 06/30/17 11:22 06/30/17 16:05 Hemoglobin 9.1 g/dL Hematocrit 31.3 % Sodium Level 134 mmol/L Potassium Level 4.7 mmol/L Chloride Level 96 mmol/L Carbon Dioxide Level 30 mmol/L Anion Gap 8.0 mmol/L Blood Urea Nitrogen 96 mg/dl Creatinine 2.29 mg/dl Est Creatinine Clear Calc Drug Dose 32.9 ml/min Estimated GFR () 26.2 Estimated GFR (Non- 22.6 BUN/Creatinine Ratio 42.0 Random Glucose 192 mg/dl Calcium Level 9.4 mg/dl Bedside Glucose 221 mg/dl 291 mg/dl 271 mg/dl Assessment and Plan 57yo female - 1. right heel ulceration with superimposed infection - continue daptomycin for MRSA from culture. Day #6 of such. Spoke with Dr. Brown from ID - recommends extended course of antibiotics with daptomycin. PICC line placed today. Appreciate wound care consultation as well. 2. complicated e. coli UTI due to chronic rodriguez usage - day #5 of rocephin; d/ c after today's dose. 3. acute/chronic right-sided CHF/diastolic CHF - acute component resolved. Hold bumex/aldactone since her BUN has risen into the 90s. Try to obtain a standing scale weight today. Cont BB. I explained to the patient that she was likely mildly volume depleted given her labs and that we needed to hold the diuretics at least today until labs are repeated tomorrow. 4. acute kidney injury in setting of CKD stage 3 - see above. BMP am. 5. T2DM, uncontrolled - multiple lengthy discussions held with patient about importance of glycemic control to help promote wound healing, etc. Encouraged basal-bolus insulin. She agreed to the lantus, but is now refusing novolog w/ meals. She requests amaryl to be resumed. I recommended against such with worsening renal function. In the end I resumed such at her request. 6. DVT proph - heparin, but patient refusing. I counseled her that given her past DVTs and immobility she is at high risk of DVT in the hospital. Still refusing. 7. stage IV sacral decubitus ulcer - pt refusing to have this area examined by staff. 8. 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 needs to exchanged prior to discharge. 9. COPD with chronic hypoxic respiratory failure - stable. 10. hyponatremia - due to CKD, diuresis - resolved. 11. iron def anemia - appears chronic x 1-2 years. refusing PO iron. explained importance of such. offered IV iron - she is going to think about it. check stool hemoccult to ensure no active, slow, GI bleeding. 12. pt requested we check her right leg circulation. Ordered arterial doppler but then has refused it twice. Discussed this with her at bedside today. 13. prerenal azotemia - could be volume depletion from diuretics but cannot r/ o slow Upper GI bleeding. check stool guaiac. daily labs. Continued [facility] stay due to: multiple IV medications needed Discharge planning: home with home health, home with IV medication
[2017-06-30] MEDS: CEFTRIAXONE SOD INJ 1 GM in DEXTROSE 5% ADD-VANTAGE 50ML 50 ML IV SCH (17:27)
[2017-06-30] MEDS ORDERED: NURSING VERBAL MED ORDER ONE (18:45)
[2017-06-30] MEDS: INSULIN GLARGINE SOLOSTAR 100 UNITS/ML 3 ML PEN SC SCH (21:05)
[2017-06-30 23:49] VITALS: BP 134/75; PULSE 111; TEMP 37.1; O2SAT 96
[2017-07-01] MEDS: ACETAMINOPHEN 325 MG TAB PO PRN ×2 (02:33→13:08)
[2017-07-01] MEDS: HEPARIN SOD 5000 UNIT/0.5 ML CARP SQ SCH ×3 (05:56→20:19)
[2017-07-01 05:59] LABS: CALCIUM 9.3 mg/dl (8.5-10.1); CREATININE 2.43 mg/dl (0.60-1.20); POTASSIUM 4.3 mmol/L (3.5-5.1)
[2017-07-01] MEDS: FERROUS SULFATE 325 MG TAB PO SCH ×2 (08:00→16:31)
[2017-07-01 08:07] VITALS: BP 115/65; PULSE 107; TEMP 36.6; O2SAT 94
[2017-07-01] MEDS: GLIMEPIRIDE 2 MG TAB PO SCH (08:21)
[2017-07-01] MEDS: INSULIN ASPART 100 UNITS/ML 3 ML PEN SC SCH ×4 (08:28→20:17)
[2017-07-01] MEDS: DAPTOmycin IV 650 MG in SYRINGE 0 ML IV SCH (08:28)
[2017-07-01] MEDS: EUCERIN CR 120 GM JAR EXT SCH ×2 (09:00→20:19)
[2017-07-01] MEDS: IRON SUCROSE INJ 100 MG in SODIUM CHLORIDE 0.9% 100ML 100 ML IV SCH (12:59)
[2017-07-01 15:36] VITALS: BP 111/71; PULSE 103; TEMP 36.8; O2SAT 90
--- NOTE | 2017-07-01 16:38 | Progress Note ---
Subjective Date of Service: Jul 01, 2017. Subjective Pt evaluation today including: conversation w/ patient, physical exam, lab review, review of studies, conversation w/ network pricing consultant, review of inpatient medication list Pain: feet and legs PO Intake: adequate Voiding: rodriguez catheter in place (chronic) overall patient stable, sitting in wheelchair complains that it is difficult for her to find a comfortable position for her feet she is agreeable to Venofer, will start today she does not want Novolog still, with sugars in the 200's she understands plan for Daptomycin, wants to try to rid herself of MRSA, looking to washes, decontamination strategies she is contemplating rehab, she is not sure what good it would do, asked her to continue to think about it Problem List Medical Problems: (1) Acute renal disease Status: Acute (2) Acute renal failure Status: Acute (3) ELIZABETH (acute kidney injury) Status: Acute (4) Cellulitis Status: Acute (5) Cellulitis of both lower extremities Status: Acute (6) CHF (congestive heart failure) Status: Acute (7) CHF (congestive heart failure) Status: Acute (8) Dehydration Status: Acute (9) Fluid overload Status: Acute (10) Hypoxia Status: Acute (11) MRSA (methicillin resistant Staphylococcus aureus) infection Status: Chronic (12) Pickwickian syndrome Status: Acute (13) Pneumonia Status: Acute (14) Respiratory failure Status: Acute (15) Sacral decubitus ulcer, stage III Status: Acute (16) UTI (urinary tract infection) Status: Acute Review of Systems Constitutional: + weakness, + fatigue Musculoskeletal: + joint pain (feet and legs) Skin: + problem reported (ulcers on heels, sacral ulcer) All Other Systems: Reviewed and Negative Medications Current Inpatient Medications Medications (Trade) Dose Ordered Sig/Bruno Route Start Time Stop Time Status Last Admin Dose Admin Acetaminophen (Tylenol Tab) 650 mg Q4H PRN PO 06/25/17 14:45 07/25/17 14:44 07/01/17 13:08 650 MG Magnesium Hydroxide (Milk Of Magnesia Susp) 30 ml Q6H PRN PO 06/25/17 14:45 07/25/17 14:44 Polyethylene (Miralax Powder Packet) 17 gm DAILY PRN PO 06/25/17 14:45 07/25/17 14:44 Ondansetron HCl (Zofran Inj) 4 mg Q6H PRN IV 06/25/17 14:45 07/25/17 14:44 Multi-Ingredient Ointment (Eucerin Unscented Cr) 1 appln BID EXT 06/25/17 21:00 07/25/17 20:59 06/29/17 20:14 1 APPLN Metolazone (Zaroxolyn Tab) 5 mg TuTh@0830 PO 06/27/17 08:30 07/27/17 08:29 06/27/17 08:24 5 MG Spironolactone (Aldactone Tab) 25 mg DAILY PO 06/26/17 09:00 07/26/17 08:59 Future Hold 06/29/17 08:45 25 MG Insulin Aspart (novoLOG ASPART) SLIDING SCALE If C... ACHS SC 06/25/17 16:30 07/25/17 16:29 07/01/17 12:57 2 UNITS Glucose (Glucose 40% Gel) 15-30 GRAMS 15 GRAMS... UD PRN PO 06/25/17 15:30 07/25/17 15:29 Glucose (Glucose Chew Tab) 4-8 Tablets 4 Tabl... UD PRN PO 06/25/17 15:30 07/25/17 15:29 Dextrose (Dextrose 50% 50ML Syringe) 25-50ML OF 50% DW IV FOR... UD PRN IV 06/25/17 15:30 07/25/17 15:29 Glucagon (Glucagon Inj) 1 mg UD PRN SQ 06/25/17 15:30 07/25/17 15:29 Heparin Sodium (Porcine) (Heparin Sq 5000 Unit/0.5ml) 5,000 unit Q8 SQ 06/25/17 22:00 07/25/17 21:59 Daptomycin 650 mg/ Syringe 13 ml @ 6.5 mls/min DAILY@0800 IV 06/26/17 08:00 07/05/17 07:59 07/01/17 08:28 6.5 MLS/MIN Oxycodone HCl (Roxicodone Immediate Rel Tab) 5 mg Q8H PRN PO 06/26/17 01:00 07/09/17 14:44 06/30/17 21:29 5 MG Zolpidem Tartrate (Ambien Tab) 5 mg HS PRN PO 06/26/17 21:00 07/25/17 20:59 06/27/17 22:48 5 MG Ceftriaxone Sodium 1 gm/ Dextrose 50 ml @ 100 mls/hr DAILY@1800 IV 06/26/17 18:00 07/01/17 17:59 06/30/17 17:27 100 MLS/HR Miconazole Nitrate (Desenex Powder) 1 appln PRN PRN EXT 06/27/17 23:15 07/27/17 23:14 Menthol (Nice Umberto) 1 umberto PRN PRN PO 06/28/17 14:30 07/28/17 14:29 06/28/17 14:30 1 UMBERTO Insulin Glargine (Lantus Solostar Pen) 15 units HS SC 06/28/17 21:00 07/28/17 20:59 06/30/17 21:05 15 UNITS Ferrous Sulfate (Feosol Tab) 325 mg BIDM PO 06/29/17 09:15 07/29/17 09:14 Bumetanide (Bumex Tab) 1 mg BID@0900,1930 PO 06/29/17 19:30 07/29/17 19:29 Future Hold 06/29/17 20:13 1 MG Glimepiride (Amaryl Tab) 2 mg QAM PO 07/01/17 09:00 07/31/17 08:59 07/01/17 08:21 2 MG Heparin Sodium (Porcine) (Heparin 10 Unit/ ml 5 ml Flush) 5 ml PRN PRN FLUSH 06/30/17 19:00 07/30/17 18:59 07/01/17 08:39 5 ML Iron Sucrose 100 mg/Sodium Chloride 105 ml @ 420 mls/hr DAILY@1300 IV 07/01/17 13:00 07/03/17 13:14 07/01/17 12:59 420 MLS/HR Objective Vital Signs Date Time Temp Pulse Resp B/P (MAP) Pulse Ox O2 Delivery O2 Flow Rate FiO2 07/01/17 15:36 36.8 103 20 111/71 (84) 90 Nasal Cannula 3.0 07/01/17 08:07 36.6 107 20 115/65 (82) 94 07/01/17 08:00 Nasal Cannula 4.0 07/01/17 00:00 Nasal Cannula 4.0 06/30/17 23:49 37.1 111 18 134/75 (94) 96 Nasal Cannula 3.0 Physical Exam General Appearance: no apparent distress, + obese Eyes: normal inspection, EOMI, sclerae normal Neck: supple, no adenopathy, no JVD, trachea midline Respiratory/Chest: chest non-tender, lungs clear, normal breath sounds, no respiratory distress, no accessory muscle use Cardiovascular: regular rate, rhythm, no edema, no gallop, no JVD, no murmur Abdomen: normal bowel sounds, non tender, soft, no organomegaly Extremities: no pedal edema, no calf tenderness, pelvis stable, + inflammation , + slow capillary refill 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, alert, oriented x 3, + motor weakness (generalized), + depressed affect Skin: + pertinent finding (sacral ulcer dressed, heel ulcers dressed) Laboratory Results Last 24 Hours Test 07/01/17 02:15 07/01/17 05:20 07/01/17 07:07 07/01/17 11:36 Stool Occult Blood NEGATIVE Hemoglobin 8.7 g/dL Sodium Level 136 mmol/L Potassium Level 4.3 mmol/L Chloride Level 96 mmol/L Carbon Dioxide Level 29 mmol/L Anion Gap 11.0 mmol/L Blood Urea Nitrogen 90 mg/dl Creatinine 2.43 mg/dl Est Creatinine Clear Calc Drug Dose 31.0 ml/min Estimated GFR () 24.4 Estimated GFR (Non- 21.1 BUN/Creatinine Ratio 37.1 Random Glucose 178 mg/dl Calcium Level 9.3 mg/dl Bedside Glucose 231 mg/dl 206 mg/dl Assessment and Plan 57yo female - 1. right heel ulceration with superimposed infection - continue daptomycin for MRSA from culture. Day #7 of such. PICC placed on 06/30, will need several weeks of Daptomycin, follow up with Dr. Brown follow with wound clinic, right heel excisional debridement performed on 06/28 2. complicated e. coli UTI due to chronic rodriguez usage - completed 5 days of Rocephin 3. acute/chronic right-sided CHF/diastolic CHF - acute component resolved. continue to hold bumex/aldactone since her BUN has risen into the 90s. Cr 2.43 and BUN 90 today repeat BMP tomorrow, patient encouraged to drink fluids 4. acute kidney injury in setting of CKD stage 3 - see above. see above lab results, repeat tomorrow AM 5. T2DM, uncontrolled - multiple lengthy discussions held with patient about importance of glycemic control to help promote wound healing, etc. Encouraged basal-bolus insulin. She agreed to the lantus, refusing Novolog and ACHS sugars despite medical advice Amaryl resumed because patient was adamant about using, warned against problems with renal function, she will continue to use on discharge no issues with hypoglycemia 6. DVT proph - heparin ordered, but patient refusing. she was warned about high risk for DVT due to immobility, still refusing 7. stage IV sacral decubitus ulcer - pt refusing to have this area examined by staff. 8. 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 needs to exchanged prior to discharge. 9. COPD with chronic hypoxic respiratory failure - stable. 10. hyponatremia - due to CKD, diuresis - resolved. 11. iron def anemia - appears chronic x 1-2 years. refusing PO iron. explained importance of such. heme occult negative will give Venofer 100mg daily x 3 days 12. pt requested we check her right leg circulation. Ordered arterial doppler but then has refused it twice. patient said she cannot lay on the table for the test planning on either home with home health or rehab needs to stay to monitor renal function, hemoglobin Continued [facility] stay due to: multiple IV medications needed Discharge planning: home with home health, home with IV medication
[2017-07-01] MEDS: OXYCODONE HCL IR 5 MG TAB (IMMEDIATE RELEASE) PO PRN (20:15)
[2017-07-01] MEDS: INSULIN GLARGINE SOLOSTAR 100 UNITS/ML 3 ML PEN SC SCH (20:19)
[2017-07-01 23:26] VITALS: BP 124/78; PULSE 117; TEMP 37; O2SAT 90
--- NOTE | 2017-07-02 05:03 | Infectious Disease Progress Nt ---
Progress Note Date of Service Jul 01, 2017. Subjective Pt evaluation today including: conversation w/ patient, physical exam, chart review, lab review, review of studies, conversation w/ customer support consultant, review of inpatient medication list offers no new complaints today. Remains afebrile. Tolerating daptomycin without apparent difficulty. All Other Systems: Reviewed and Negative Medications Current Inpatient Medications Medications (Trade) Dose Ordered Sig/Bruno Route Start Time Stop Time Status Last Admin Dose Admin Acetaminophen (Tylenol Tab) 650 mg Q4H PRN PO 06/25/17 14:45 07/25/17 14:44 07/01/17 13:08 650 MG Magnesium Hydroxide (Milk Of Magnesia Susp) 30 ml Q6H PRN PO 06/25/17 14:45 07/25/17 14:44 Polyethylene (Miralax Powder Packet) 17 gm DAILY PRN PO 06/25/17 14:45 07/25/17 14:44 Ondansetron HCl (Zofran Inj) 4 mg Q6H PRN IV 06/25/17 14:45 07/25/17 14:44 Multi-Ingredient Ointment (Eucerin Unscented Cr) 1 appln BID EXT 06/25/17 21:00 07/25/17 20:59 06/29/17 20:14 1 APPLN Metolazone (Zaroxolyn Tab) 5 mg TuTh@0830 PO 06/27/17 08:30 07/27/17 08:29 06/27/17 08:24 5 MG Spironolactone (Aldactone Tab) 25 mg DAILY PO 06/26/17 09:00 07/26/17 08:59 Future Hold 06/29/17 08:45 25 MG Insulin Aspart (novoLOG ASPART) SLIDING SCALE If C... ACHS SC 06/25/17 16:30 07/25/17 16:29 07/01/17 12:57 2 UNITS Glucose (Glucose 40% Gel) 15-30 GRAMS 15 GRAMS... UD PRN PO 06/25/17 15:30 07/25/17 15:29 Glucose (Glucose Chew Tab) 4-8 Tablets 4 Tabl... UD PRN PO 06/25/17 15:30 07/25/17 15:29 Dextrose (Dextrose 50% 50ML Syringe) 25-50ML OF 50% DW IV FOR... UD PRN IV 06/25/17 15:30 07/25/17 15:29 Glucagon (Glucagon Inj) 1 mg UD PRN SQ 06/25/17 15:30 07/25/17 15:29 Heparin Sodium (Porcine) (Heparin Sq 5000 Unit/0.5ml) 5,000 unit Q8 SQ 06/25/17 22:00 07/25/17 21:59 Daptomycin 650 mg/ Syringe 13 ml @ 6.5 mls/min DAILY@0800 IV 06/26/17 08:00 07/05/17 07:59 07/01/17 08:28 6.5 MLS/MIN Oxycodone HCl (Roxicodone Immediate Rel Tab) 5 mg Q8H PRN PO 06/26/17 01:00 07/09/17 14:44 07/01/17 20:15 5 MG Zolpidem Tartrate (Ambien Tab) 5 mg HS PRN PO 06/26/17 21:00 07/25/17 20:59 06/27/17 22:48 5 MG Miconazole Nitrate (Desenex Powder) 1 appln PRN PRN EXT 06/27/17 23:15 07/27/17 23:14 Menthol (Nice Marko) 1 marko PRN PRN PO 06/28/17 14:30 07/28/17 14:29 06/28/17 14:30 1 MARKO Insulin Glargine (Lantus Solostar Pen) 15 units HS SC 06/28/17 21:00 07/28/17 20:59 07/01/17 20:19 15 UNITS Ferrous Sulfate (Feosol Tab) 325 mg BIDM PO 06/29/17 09:15 07/29/17 09:14 Bumetanide (Bumex Tab) 1 mg BID@0900,1930 PO 06/29/17 19:30 07/29/17 19:29 Future Hold 06/29/17 20:13 1 MG Glimepiride (Amaryl Tab) 2 mg QAM PO 07/01/17 09:00 07/31/17 08:59 07/01/17 08:21 2 MG Heparin Sodium (Porcine) (Heparin 10 Unit/ ml 5 ml Flush) 5 ml PRN PRN FLUSH 06/30/17 19:00 07/30/17 18:59 07/01/17 08:39 5 ML Iron Sucrose 100 mg/Sodium Chloride 105 ml @ 420 mls/hr DAILY@1300 IV 07/01/17 13:00 07/03/17 13:14 07/01/17 12:59 420 MLS/HR Objective Vital Signs Date Time Temp Pulse Resp B/P (MAP) Pulse Ox O2 Delivery O2 Flow Rate FiO2 07/02/17 00:00 Nasal Cannula 4.0 07/01/17 23:26 37.0 117 18 124/78 (93) 90 Nasal Cannula 4.0 07/01/17 20:00 Nasal Cannula 4.0 07/01/17 16:00 Nasal Cannula 4.0 07/01/17 15:36 36.8 103 20 111/71 (84) 90 Nasal Cannula 3.0 07/01/17 08:07 36.6 107 20 115/65 (82) 94 07/01/17 08:00 Nasal Cannula 4.0 Physical Exam General Appearance: WD/WN, no apparent distress, + obese Eyes: normal inspection, EOMI, sclerae normal ENT: normal ENT inspection, pharynx normal Neck: supple, no adenopathy, trachea midline Respiratory/Chest: chest non-tender, lungs clear, normal breath sounds, no respiratory distress Cardiovascular: regular rate, rhythm, no gallop, no murmur Abdomen: normal bowel sounds, non tender, soft, no organomegaly Extremities: non-tender, no calf tenderness Neurologic/Psychiatric: alert, oriented x 3 Skin: normal color, no rash, + pertinent finding (right leg and heel dressing intact) Lymphatic: no adenopathy Laboratory Results Last 24 Hours Test 07/01/17 05:20 07/01/17 07:07 07/01/17 11:36 07/01/17 16:32 Hemoglobin 8.7 g/dL Sodium Level 136 mmol/L Potassium Level 4.3 mmol/L Chloride Level 96 mmol/L Carbon Dioxide Level 29 mmol/L Anion Gap 11.0 mmol/L Blood Urea Nitrogen 90 mg/dl Creatinine 2.43 mg/dl Est Creatinine Clear Calc Drug Dose 31.0 ml/min Estimated GFR () 24.4 Estimated GFR (Non- 21.1 BUN/Creatinine Ratio 37.1 Random Glucose 178 mg/dl Calcium Level 9.3 mg/dl Bedside Glucose 231 mg/dl 206 mg/dl 123 mg/dl Test 07/01/17 20:16 Bedside Glucose 222 mg/dl Assessment and Plan 57-year-old female with right leg heel ulcerations with MRSA, being treated with daptomycin. Ceftriaxone appropriate for urinary tract infection with E coli. Would give 5 days of ceftriaxone, will likely require more prolonged course of daptomycin. Will follow.
[2017-07-02] MEDS: OXYCODONE HCL IR 5 MG TAB (IMMEDIATE RELEASE) PO PRN ×2 (05:53→21:48)
[2017-07-02] MEDS: HEPARIN SOD 5000 UNIT/0.5 ML CARP SQ SCH ×3 (05:55→21:34)
[2017-07-02 07:40] VITALS: BP 127/72; PULSE 103; TEMP 36.8; O2SAT 90
[2017-07-02] MEDS: FERROUS SULFATE 325 MG TAB PO SCH ×2 (08:00→17:00)
[2017-07-02] MEDS: EUCERIN CR 120 GM JAR EXT SCH ×2 (08:11→21:00)
[2017-07-02] MEDS: GLIMEPIRIDE 2 MG TAB PO SCH (08:17)
[2017-07-02] MEDS: DAPTOmycin IV 650 MG in SYRINGE 0 ML IV SCH (08:21)
[2017-07-02] MEDS: INSULIN ASPART 100 UNITS/ML 3 ML PEN SC SCH ×4 (08:22→21:00)
[2017-07-02] MEDS: METOLAZONE 5 MG TAB PO SCH (08:30)
[2017-07-02 09:45] LABS: HEMATOCRIT 29.2 % (37-47); HEMOGLOBIN 8.4 g/dL (12.0-16.0); MEAN CORPUSCULAR HGB CONC 28.8 g/dl (32-36); PLATELET COUNT 189 K/uL (130-400); RED CELL DISTRIBUTION WIDTH CV 19.3 % (11.5-14.5); RED CELL DISTRIBUTION WIDTH SD 51.4 fL (36.4-46.3); WHITE BLOOD COUNT 7.12 K/uL (4.8-10.8)
[2017-07-02 10:01] LABS: CALCIUM 9.3 mg/dl (8.5-10.1); CREATININE 2.09 mg/dl (0.60-1.20); POTASSIUM 4.5 mmol/L (3.5-5.1)
[2017-07-02] MEDS: IRON SUCROSE INJ 100 MG in SODIUM CHLORIDE 0.9% 100ML 100 ML IV SCH (12:36)
[2017-07-02] MEDS: ACETAMINOPHEN 325 MG TAB PO PRN (13:49)
[2017-07-02 17:00] VITALS: BP 135/77; PULSE 101; TEMP 36.5; O2SAT 91
[2017-07-02] MEDS: INSULIN GLARGINE SOLOSTAR 100 UNITS/ML 3 ML PEN SC SCH (21:48)
--- NOTE | 2017-07-03 00:16 | Progress Note ---
Subjective Date of Service: Jul 02, 2017. Subjective Pt evaluation today including: conversation w/ patient, physical exam, lab review, conversation w/ [employer] consultant, review of inpatient medication list Pain: in heels bilaterally PO Intake: adequate Voiding: rodriguez catheter in place no new issues today patient is seriously contemplating SNF for subacute rehab reviewed labs, Cr down to 2.0, BUN still > 90 looking back on previous admissions, would appear that baseline is 1.8-1.9 range Hb stable but continues to be low at 8.0 planning for Daptomycin on discharge Problem List Medical Problems: (1) Acute renal disease Status: Acute (2) Acute renal failure Status: Acute (3) ELIZABETH (acute kidney injury) Status: Acute (4) Cellulitis Status: Acute (5) Cellulitis of both lower extremities Status: Acute (6) CHF (congestive heart failure) Status: Acute (7) CHF (congestive heart failure) Status: Acute (8) Dehydration Status: Acute (9) Fluid overload Status: Acute (10) Hypoxia Status: Acute (11) MRSA (methicillin resistant Staphylococcus aureus) infection Status: Chronic (12) Pickwickian syndrome Status: Acute (13) Pneumonia Status: Acute (14) Respiratory failure Status: Acute (15) Sacral decubitus ulcer, stage III Status: Acute (16) UTI (urinary tract infection) Status: Acute Review of Systems Constitutional: + weakness, + fatigue Musculoskeletal: + joint pain (heels bilaterally) Neurologic: + weakness All Other Systems: Reviewed and Negative Medications Current Inpatient Medications Medications (Trade) Dose Ordered Sig/Bruno Route Start Time Stop Time Status Last Admin Dose Admin Acetaminophen (Tylenol Tab) 650 mg Q4H PRN PO 06/25/17 14:45 07/25/17 14:44 07/02/17 13:49 650 MG Magnesium Hydroxide (Milk Of Magnesia Susp) 30 ml Q6H PRN PO 06/25/17 14:45 07/25/17 14:44 Polyethylene (Miralax Powder Packet) 17 gm DAILY PRN PO 06/25/17 14:45 07/25/17 14:44 Ondansetron HCl (Zofran Inj) 4 mg Q6H PRN IV 06/25/17 14:45 07/25/17 14:44 Multi-Ingredient Ointment (Eucerin Unscented Cr) 1 appln BID EXT 06/25/17 21:00 07/25/17 20:59 07/02/17 08:11 1 APPLN Metolazone (Zaroxolyn Tab) 5 mg TuTh@0830 PO 06/27/17 08:30 07/27/17 08:29 Future Hold 06/27/17 08:24 5 MG Spironolactone (Aldactone Tab) 25 mg DAILY PO 06/26/17 09:00 07/26/17 08:59 Future Hold 06/29/17 08:45 25 MG Insulin Aspart (novoLOG ASPART) SLIDING SCALE If C... ACHS SC 06/25/17 16:30 07/25/17 16:29 07/02/17 12:37 3 UNITS Glucose (Glucose 40% Gel) 15-30 GRAMS 15 GRAMS... UD PRN PO 06/25/17 15:30 07/25/17 15:29 Glucose (Glucose Chew Tab) 4-8 Tablets 4 Tabl... UD PRN PO 06/25/17 15:30 07/25/17 15:29 Dextrose (Dextrose 50% 50ML Syringe) 25-50ML OF 50% DW IV FOR... UD PRN IV 06/25/17 15:30 07/25/17 15:29 Glucagon (Glucagon Inj) 1 mg UD PRN SQ 06/25/17 15:30 07/25/17 15:29 Heparin Sodium (Porcine) (Heparin Sq 5000 Unit/0.5ml) 5,000 unit Q8 SQ 06/25/17 22:00 07/25/17 21:59 Daptomycin 650 mg/ Syringe 13 ml @ 6.5 mls/min DAILY@0800 IV 06/26/17 08:00 07/05/17 07:59 07/02/17 08:21 6.5 MLS/MIN Oxycodone HCl (Roxicodone Immediate Rel Tab) 5 mg Q8H PRN PO 06/26/17 01:00 07/09/17 14:44 07/02/17 05:53 5 MG Zolpidem Tartrate (Ambien Tab) 5 mg HS PRN PO 06/26/17 21:00 07/25/17 20:59 06/27/17 22:48 5 MG Miconazole Nitrate (Desenex Powder) 1 appln PRN PRN EXT 06/27/17 23:15 07/27/17 23:14 Menthol (Nice Umberto) 1 umberto PRN PRN PO 06/28/17 14:30 07/28/17 14:29 06/28/17 14:30 1 UMBERTO Insulin Glargine (Lantus Solostar Pen) 15 units HS SC 06/28/17 21:00 07/28/17 20:59 07/01/17 20:19 15 UNITS Ferrous Sulfate (Feosol Tab) 325 mg BIDM PO 06/29/17 09:15 07/29/17 09:14 Bumetanide (Bumex Tab) 1 mg BID@0900,1930 PO 06/29/17 19:30 07/29/17 19:29 Future Hold 06/29/17 20:13 1 MG Glimepiride (Amaryl Tab) 2 mg QAM PO 07/01/17 09:00 07/31/17 08:59 07/02/17 08:17 2 MG Heparin Sodium (Porcine) (Heparin 10 Unit/ ml 5 ml Flush) 5 ml PRN PRN FLUSH 06/30/17 19:00 07/30/17 18:59 07/02/17 08:21 5 ML Iron Sucrose 100 mg/Sodium Chloride 105 ml @ 420 mls/hr DAILY@1300 IV 07/01/17 13:00 07/03/17 13:14 07/02/17 12:36 420 MLS/HR Objective Vital Signs Date Time Temp Pulse Resp B/P (MAP) Pulse Ox O2 Delivery O2 Flow Rate FiO2 07/02/17 08:00 Nasal Cannula 4.0 07/02/17 07:40 36.8 103 18 127/72 (90) 90 07/02/17 00:00 Nasal Cannula 4.0 07/01/17 23:26 37.0 117 18 124/78 (93) 90 Nasal Cannula 4.0 07/01/17 20:00 Nasal Cannula 4.0 Physical Exam General Appearance: no apparent distress, + obese Eyes: normal inspection, EOMI, sclerae normal ENT: normal ENT inspection, hearing grossly normal, pharynx normal Neck: supple, no adenopathy, no JVD, trachea midline Respiratory/Chest: chest non-tender, lungs clear, normal breath sounds, no respiratory distress, no accessory muscle use Cardiovascular: regular rate, rhythm, no edema, no gallop, no JVD, no murmur Abdomen: normal bowel sounds, non tender, soft, no organomegaly Extremities: no calf tenderness, pelvis stable, + calf tenderness, + inflammation, + pedal edema, + slow capillary refill 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, alert, normal mood/affect, oriented x 3, + motor weakness Skin: + pertinent finding (bilateral heel ulcers) Laboratory Results Last 24 Hours Test 07/01/17 16:32 07/01/17 20:16 07/02/17 07:29 07/02/17 09:01 Bedside Glucose 123 mg/dl 222 mg/dl 164 mg/dl White Blood Count 7.12 K/uL Red Blood Count 4.00 M/uL Hemoglobin 8.4 g/dL Hematocrit 29.2 % Mean Corpuscular Volume 73.0 fL Mean Corpuscular Hemoglobin 21.0 pg Mean Corpuscular Hemoglobin Concent 28.8 g/dl RDW Standard Deviation 51.4 fL RDW Coefficient of Variation 19.3 % Platelet Count 189 K/uL Mean Platelet Volume 10.0 fL Sodium Level 136 mmol/L Potassium Level 4.5 mmol/L Chloride Level 100 mmol/L Carbon Dioxide Level 28 mmol/L Anion Gap 8.0 mmol/L Blood Urea Nitrogen 93 mg/dl Creatinine 2.09 mg/dl Est Creatinine Clear Calc Drug Dose 36.1 ml/min Estimated GFR () 29.3 Estimated GFR (Non- 25.3 BUN/Creatinine Ratio 44.6 Random Glucose 263 mg/dl Calcium Level 9.3 mg/dl Test 07/02/17 11:31 Bedside Glucose 227 mg/dl Assessment and Plan 57yo female - 1. right heel ulceration with superimposed infection - continue daptomycin for MRSA from culture. Day #8 of such. PICC placed on 06/30, will need several weeks of Daptomycin, follow up with Dr. Brown follow with wound clinic, right heel excisional debridement performed on 06/28 pain controlled today 2. complicated e. coli UTI due to chronic rodriguez usage - completed 5 days of Rocephin, no further treatment needed 3. acute/chronic right-sided CHF/diastolic CHF - acute component resolved. resume Bumex BID on 07/03 Cr 2.0 on 07/02 4. acute kidney injury in setting of CKD stage 3 - see above. baseline Cr appears to be 1.7-1.9 Cr 2.0 today, less urine output with holding Bumex resume Bumex tomorrow 5. T2DM, uncontrolled - multiple lengthy discussions held with patient about importance of glycemic control to help promote wound healing, etc. Encouraged basal-bolus insulin. She agreed to the lantus, refusing Novolog and ACHS sugars despite medical advice Amaryl resumed because patient was adamant about using, warned against problems with renal function, she will continue to use on discharge no issues with hypoglycemia, sugars generally high 100's to mid 200's 6. DVT proph - heparin ordered, but patient refusing. she was warned about high risk for DVT due to immobility, still refusing 7. stage IV sacral decubitus ulcer - pt refusing to have this area examined by staff. 8. 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 needs to exchanged prior to discharge. 9. COPD with chronic hypoxic respiratory failure - stable. 10. hyponatremia - due to CKD, diuresis - resolved. 11. iron def anemia - appears chronic x 1-2 years. refusing PO iron. explained importance of such. heme occult negative will give Venofer 100mg daily x 3 days 12. pt requested we check her right leg circulation. Ordered arterial doppler but then has refused it twice. patient said she cannot lay on the table for the test planning on either home with home health or rehab possibly ready for discharge in next 48 hours Continued [facility] stay due to: multiple IV medications needed Discharge planning: home with home health, home with IV medication
[2017-07-03 00:38] VITALS: BP 119/76; PULSE 109; TEMP 36.9; O2SAT 94
[2017-07-03] MEDS: OXYCODONE HCL IR 5 MG TAB (IMMEDIATE RELEASE) PO PRN ×2 (04:42→15:09)
[2017-07-03] MEDS: HEPARIN SOD 5000 UNIT/0.5 ML CARP SQ SCH ×3 (05:14→20:56)
[2017-07-03 05:54] LABS: HEMATOCRIT 28.6 % (37-47); HEMOGLOBIN 8.2 g/dL (12.0-16.0); MEAN CELL VOLUME 72.8 fL (80-100); MEAN CORPUSCULAR HEMOGLOBIN 20.9 pg (25-34); MEAN CORPUSCULAR HGB CONC 28.7 g/dl (32-36); MEAN PLATELET VOLUME 9.6 fL (7.4-10.4); PLATELET COUNT 222 K/uL (130-400); RED CELL DISTRIBUTION WIDTH CV 19.2 % (11.5-14.5); RED CELL DISTRIBUTION WIDTH SD 51.1 fL (36.4-46.3); WHITE BLOOD COUNT 6.85 K/uL (4.8-10.8)
[2017-07-03 06:14] LABS: BASO % 0.3 %; BASO ABS # 0.02 K/uL (0-0.2); CALCIUM 9.1 mg/dl (8.5-10.1); CREATININE 2.2 mg/dl (0.60-1.20); EOS % 2.8 %; EOS ABS # 0.19 K/uL (0-0.5); IG# 0.01 K/uL (0.00-0.02); LYMPH % 24.7 %; LYMPH ABS # 1.69 K/uL (1.2-3.4); MONO % 8.2 %; MONO ABS # 0.56 K/uL (0.11-0.59); NEUT % 63.9 %; NEUT ABS # 4.38 K/uL (1.4-6.5); PHOSPHORUS 4.4 mg/dl (2.5-4.9); POTASSIUM 4.5 mmol/L (3.5-5.1)
[2017-07-03] MEDS: INSULIN ASPART 100 UNITS/ML 3 ML PEN SC SCH ×4 (06:30→20:56)
[2017-07-03] MEDS: FERROUS SULFATE 325 MG TAB PO SCH ×2 (07:59→17:00)
[2017-07-03 08:00] VITALS: BP 116/75; PULSE 99; TEMP 36.4; O2SAT 95
[2017-07-03] MEDS: EUCERIN CR 120 GM JAR EXT SCH ×2 (08:00→20:56)
[2017-07-03] MEDS: GLIMEPIRIDE 2 MG TAB PO SCH (08:01)
[2017-07-03] MEDS: BUMETANIDE 1 MG TAB PO SCH ×2 (08:02→17:20)
[2017-07-03] MEDS: DAPTOmycin IV 650 MG in SYRINGE 0 ML IV SCH (08:08)
--- NOTE | 2017-07-03 10:16 | NEPHROLOGY CONSULTATION ---
DATE OF CONSULTATION: 07/03/2017 ATTENDING OF RECORD: Bill Richey DO. REASON FOR CONSULTATION: CKD. HISTORY OF PRESENT ILLNESS: This is a 57-year-old female with history of CKD stage IV who does not actively follow with a centralized traffic control operator who has a history of decompensated right-sided heart failure who underwent a revision sacral decubitus ulcer while awaiting improvement of the wound infection is currently having a chronic Lerner. The patient does have a history of smoking in the past, which she has quit. She also has been diabetic for many years with obstructive sleep apnea on CPAP, has been dealing with chronic lower extremity wounds followed closely by infectious disease currently on long-term daptomycin for treatment of her chronic infections. Blood cultures from the were negative. The patient did have E. coli UTI from the . During the hospitalization here, creatinines ranged in the low to mid 2s from 2.09-2.40 with the chronic indwelling Lerner and chronic wounds of the lower extremities. The patient primarily is in a wheelchair though does use a walker at times. Volume status is at baseline. The patient was on spironolactone and metolazone in the past to help with her edema and is currently now on solely Bumex. PAST MEDICAL HISTORY/PAST SURGICAL HISTORY: , cyst debridement in left upper thigh Decompensated right-sided heart failure, chronic lower extremity ulcerations, grade 4 sacral decubitus ulcer, chronic indwelling Lerner while awaiting healing of the ulcers, COPD, CKD stage IV, anemia, iron deficiency, type 2 diabetes, obstructive sleep apnea. FAMILY HISTORY: No renal disease in the family. SOCIAL HISTORY: The patient states she no longer smokes. Recovering alcoholic, sober for several years. No drugs. Lives alone. CURRENT MEDICATIONS: Bumex 1 mg p.o. b.i.d., IV Venofer, iron 325 p.o. b.i.d., Lantus 15 units subQ at night, daptomycin 650 mg IV daily, heparin 5000 units subQ q. 8, Amaryl 2 mg daily. REVIEW OF SYSTEMS: Positive fatigue. Positive shortness of breath with exertion. No chest pain. Positive swelling. Positive ulcers. Positive chronic Lerner. No itching. No rash. No headaches, no fevers or chills. No difficulty swallowing. No blurry vision. All other review of systems otherwise negative. PHYSICAL EXAMINATION: VITAL SIGNS: Temperature 36.4, pulse 99, respiratory rate is 20, blood pressure is 116/75, satting 95% on 4 liters. GENERAL: Awake, alert, oriented x3. EYES: No scleral icterus. HEENT: Mucous membranes are dry. NECK: Supple. PULMONARY: Clear to auscultation. CARDIAC: Tachy. ABDOMEN: Bowel sounds positive, soft, large pannus. EXTREMITIES: Mild edema. Ulcers covered. DERMATOLOGIC: Sacral decubitus ulcer requiring surgery as well as multiple ulcers of lower extremities. GENITOURINARY: Chronic Lerner. LABORATORY DATA: White count 6, H&H 8.2 and 28.6, platelet count is 222. Sodium is 137, potassium is 4.5, chloride is 101, bicarb is 28, BUN is 100, creatinine is 2.2, glucose 125, calcium is 9.1, phosphorus 4.4, magnesium is 2.2. Iron sat 7% with a ferritin of 30, albumin is 3. INR is 1.2. UA was infectious and did grow E. coli UTI. Micro blood cultures are negative. Chest x-ray from the 7th shows cardiomegaly with mild volume overload. No esther pulmonary edema. Coarsened lung markings secondary to volume overload. IMPRESSION AND PLAN: 1. Chronic kidney disease stage IV with creatinine in the low 2s in the setting of long-term diabetes, right-sided heart failure, requiring multiple diuretics currently now on Bumex 1 mg p.o. b.i.d., volume status is optimized, also dealing with a chronic methicillin-resistant Staphylococcus aureus wounds on long-term daptomycin with a PICC line in place. My suggestion to her is to establish with outpatient centralized traffic control operator and to respect her outpatient family doctor who lives in [place], would defer to the family doctor in terms of which centralized traffic control operator he or she would recommend for her to help optimize communication between physicians. Trying to balance optimization of volume status with her significant right-sided heart failure while still preserving kidney function. Continue current diuretics. 2. Anemia of iron deficiency. The patient could have an element of anemia of chronic kidney disease; however, iron sats are low. Currently getting IV iron, would need the iron sat greater than 20% and ferritin above 100 and hemoglobin level below 10 before considering initiation of Procrit. For now, continue IV iron as an inpatient. Continue oral iron as an outpatient. 3. Renal osteodystrophy. Phosphorus levels are 4.4, calcium is 9.1. Checking vitamin D and a PTH level to see if patient would benefit from any vitamin D supplementation and/or calcitriol. 4. I would like to obtain a renal ultrasound and repeat urinalysis and check a protein to creatinine to assess severity of the chronic kidney disease. However, in my opinion, currently, patient with multiple comorbidities high likelihood of eventually needing dialysis sometime in the future and would benefit from establishing with a centralized traffic control operator as an outpatient who works well with the current family doctor. Appreciate consultation. ROWENA
--- NOTE | 2017-07-03 11:35 | Infectious Disease Progress Nt ---
Progress Note Date of Service Jul 03, 2017. Subjective Pt evaluation today including: conversation w/ patient, physical exam, chart review, lab review, review of studies, conversation w/ workers compensation consultant, review of inpatient medication list Offering no new complaints today. Remains afebrile. Continues tolerating daptomycin. All Other Systems: Reviewed and Negative Medications Current Inpatient Medications Medications (Trade) Dose Ordered Sig/Bruno Route Start Time Stop Time Status Last Admin Dose Admin Acetaminophen (Tylenol Tab) 650 mg Q4H PRN PO 06/25/17 14:45 07/25/17 14:44 07/02/17 13:49 650 MG Magnesium Hydroxide (Milk Of Magnesia Susp) 30 ml Q6H PRN PO 06/25/17 14:45 07/25/17 14:44 Polyethylene (Miralax Powder Packet) 17 gm DAILY PRN PO 06/25/17 14:45 07/25/17 14:44 Ondansetron HCl (Zofran Inj) 4 mg Q6H PRN IV 06/25/17 14:45 07/25/17 14:44 Multi-Ingredient Ointment (Eucerin Unscented Cr) 1 appln BID EXT 06/25/17 21:00 07/25/17 20:59 07/02/17 08:11 1 APPLN Metolazone (Zaroxolyn Tab) 5 mg TuTh@0830 PO 06/27/17 08:30 07/27/17 08:29 Future Hold 06/27/17 08:24 5 MG Spironolactone (Aldactone Tab) 25 mg DAILY PO 06/26/17 09:00 07/26/17 08:59 Future Hold 06/29/17 08:45 25 MG Insulin Aspart (novoLOG ASPART) SLIDING SCALE If C... ACHS SC 06/25/17 16:30 07/25/17 16:29 07/02/17 12:37 3 UNITS Glucose (Glucose 40% Gel) 15-30 GRAMS 15 GRAMS... UD PRN PO 06/25/17 15:30 07/25/17 15:29 Glucose (Glucose Chew Tab) 4-8 Tablets 4 Tabl... UD PRN PO 06/25/17 15:30 07/25/17 15:29 Dextrose (Dextrose 50% 50ML Syringe) 25-50ML OF 50% DW IV FOR... UD PRN IV 06/25/17 15:30 07/25/17 15:29 Glucagon (Glucagon Inj) 1 mg UD PRN SQ 06/25/17 15:30 07/25/17 15:29 Heparin Sodium (Porcine) (Heparin Sq 5000 Unit/0.5ml) 5,000 unit Q8 SQ 06/25/17 22:00 07/25/17 21:59 Daptomycin 650 mg/ Syringe 13 ml @ 6.5 mls/min DAILY@0800 IV 06/26/17 08:00 07/05/17 07:59 07/03/17 08:08 6.5 MLS/MIN Oxycodone HCl (Roxicodone Immediate Rel Tab) 5 mg Q8H PRN PO 06/26/17 01:00 07/09/17 14:44 07/03/17 04:42 5 MG Zolpidem Tartrate (Ambien Tab) 5 mg HS PRN PO 06/26/17 21:00 07/25/17 20:59 06/27/17 22:48 5 MG Miconazole Nitrate (Desenex Powder) 1 appln PRN PRN EXT 06/27/17 23:15 07/27/17 23:14 Menthol (Nice Marko) 1 marko PRN PRN PO 06/28/17 14:30 07/28/17 14:29 06/28/17 14:30 1 MARKO Insulin Glargine (Lantus Solostar Pen) 15 units HS SC 06/28/17 21:00 07/28/17 20:59 07/02/17 21:48 15 UNITS Ferrous Sulfate (Feosol Tab) 325 mg BIDM PO 06/29/17 09:15 07/29/17 09:14 Bumetanide (Bumex Tab) 1 mg BID@0900,1930 PO 06/29/17 19:30 07/29/17 19:29 Future Hold 06/29/17 20:13 1 MG Glimepiride (Amaryl Tab) 2 mg QAM PO 07/01/17 09:00 07/31/17 08:59 07/03/17 08:01 2 MG Heparin Sodium (Porcine) (Heparin 10 Unit/ ml 5 ml Flush) 5 ml PRN PRN FLUSH 06/30/17 19:00 07/30/17 18:59 07/03/17 06:50 5 ML Iron Sucrose 100 mg/Sodium Chloride 105 ml @ 420 mls/hr DAILY@1300 IV 07/01/17 13:00 07/03/17 13:14 07/02/17 12:36 420 MLS/HR Bumetanide (Bumex Tab) 1 mg BID17 PO 07/03/17 09:00 08/02/17 08:59 07/03/17 08:02 1 MG Objective Vital Signs Date Time Temp Pulse Resp B/P (MAP) Pulse Ox O2 Delivery O2 Flow Rate FiO2 07/03/17 08:00 95 Nasal Cannula 4.0 07/03/17 08:00 36.4 99 20 116/75 (89) 95 07/03/17 00:45 Nasal Cannula 4.0 07/03/17 00:38 36.9 109 18 119/76 (90) 94 Nasal Cannula 4.0 07/02/17 17:00 36.5 101 18 135/77 (96) 91 Nasal Cannula 4.0 07/02/17 16:30 Nasal Cannula 4.0 Physical Exam General Appearance: WD/WN, no apparent distress, + obese Eyes: normal inspection, EOMI, sclerae normal ENT: normal ENT inspection, pharynx normal Neck: supple, no adenopathy, thyroid normal, trachea midline Respiratory/Chest: chest non-tender, lungs clear, normal breath sounds, no respiratory distress Cardiovascular: regular rate, rhythm, no gallop, no murmur Abdomen: normal bowel sounds, non tender, soft, no organomegaly Extremities: non-tender, no calf tenderness Neurologic/Psychiatric: alert, oriented x 3 Skin: normal color, no rash, + pertinent finding (Dressing intact right lower leg and foot) Lymphatic: no adenopathy Laboratory Results Last 24 Hours Test 07/02/17 16:24 07/03/17 00:00 07/03/17 05:23 07/03/17 07:37 Bedside Glucose 133 mg/dl 118 mg/dl Urine Color YELLOW Urine Appearance CLEAR Urine pH 5.0 Urine Specific Centre 1.015 Urine Protein TRACE Urine Glucose (UA) NEG Urine Ketones NEG Urine Occult Blood 1+ Urine Nitrite NEG Urine Bilirubin NEG Urine Urobilinogen NEG Urine Leukocyte Esterase TRACE Urine WBC (Auto) 1-5 /hpf Urine RBC (Auto) 5-10 /hpf Urine Hyaline Casts (Auto) 1-5 /lpf Urine Epithelial Cells (Auto) 5-10 /lpf Urine Bacteria (Auto) NEG White Blood Count 6.85 K/uL Red Blood Count 3.93 M/uL Hemoglobin 8.2 g/dL Hematocrit 28.6 % Mean Corpuscular Volume 72.8 fL Mean Corpuscular Hemoglobin 20.9 pg Mean Corpuscular Hemoglobin Concent 28.7 g/dl Platelet Count 222 K/uL Mean Platelet Volume 9.6 fL Neutrophils (%) (Auto) 63.9 % Lymphocytes (%) (Auto) 24.7 % Monocytes (%) (Auto) 8.2 % Eosinophils (%) (Auto) 2.8 % Basophils (%) (Auto) 0.3 % Neutrophils # (Auto) 4.38 K/uL Lymphocytes # (Auto) 1.69 K/uL Monocytes # (Auto) 0.56 K/uL Eosinophils # (Auto) 0.19 K/uL Basophils # (Auto) 0.02 K/uL RDW Standard Deviation 51.1 fL RDW Coefficient of Variation 19.2 % Immature Granulocyte % (Auto) 0.1 % Immature Granulocyte # (Auto) 0.01 K/uL Anisocytosis PRESENT Ovalocytes 1+ Sodium Level 137 mmol/L Potassium Level 4.5 mmol/L Chloride Level 101 mmol/L Carbon Dioxide Level 28 mmol/L Anion Gap 8.0 mmol/L Blood Urea Nitrogen 100 mg/dl Creatinine 2.20 mg/dl Est Creatinine Clear Calc Drug Dose 34.2 ml/min Estimated GFR () 27.5 Estimated GFR (Non- 23.8 BUN/Creatinine Ratio 45.5 Random Glucose 125 mg/dl Calcium Level 9.1 mg/dl Phosphorus Level 4.4 mg/dl Magnesium Level 2.2 mg/dl Assessment and Plan 57-year-old female with right leg heel ulcerations with MRSA, being treated with daptomycin. Ceftriaxone appropriate for urinary tract infection with E coli. Would give 5 days of ceftriaxone, will likely require more prolonged course of daptomycin,In the range of 6 weeks.. Will follow.
[2017-07-03] MEDS: IRON SUCROSE INJ 100 MG in SODIUM CHLORIDE 0.9% 100ML 100 ML IV SCH (13:33)
[2017-07-03 15:00] VITALS: O2SAT 95
--- NOTE | 2017-07-03 15:03 | Progress Note ---
Subjective Date of Service: Jul 03, 2017. Subjective Pt evaluation today including: conversation w/ patient, physical exam, lab review, conversation w/ functional consultant, review of inpatient medication list Pain: in feet PO Intake: adequate Voiding: rodriguez catheter in place patient was seen by nephrology this AM, appreciate consultation and recommendations patient feeling well overall, looking to return home tomorrow now leaning away from going to SNF due to cost of Daptomycin being prohibitive she feels like she could manage home IV and wound care with visiting nurses and aides she lives in [place] reviewed labs, Cr 2.2, has stage IV disease Hb 8.2 Problem List Medical Problems: (1) Acute renal disease Status: Acute (2) Acute renal failure Status: Acute (3) ELIZABETH (acute kidney injury) Status: Acute (4) Cellulitis Status: Acute (5) Cellulitis of both lower extremities Status: Acute (6) CHF (congestive heart failure) Status: Acute (7) CHF (congestive heart failure) Status: Acute (8) Dehydration Status: Acute (9) Fluid overload Status: Acute (10) Hypoxia Status: Acute (11) MRSA (methicillin resistant Staphylococcus aureus) infection Status: Chronic (12) Pickwickian syndrome Status: Acute (13) Pneumonia Status: Acute (14) Respiratory failure Status: Acute (15) Sacral decubitus ulcer, stage III Status: Acute (16) UTI (urinary tract infection) Status: Acute Review of Systems Constitutional: + weakness, + fatigue Musculoskeletal: + joint pain (heels) All Other Systems: Reviewed and Negative Medications Current Inpatient Medications Medications (Trade) Dose Ordered Sig/Bruno Route Start Time Stop Time Status Last Admin Dose Admin Acetaminophen (Tylenol Tab) 650 mg Q4H PRN PO 06/25/17 14:45 07/25/17 14:44 07/02/17 13:49 650 MG Magnesium Hydroxide (Milk Of Magnesia Susp) 30 ml Q6H PRN PO 06/25/17 14:45 07/25/17 14:44 Polyethylene (Miralax Powder Packet) 17 gm DAILY PRN PO 06/25/17 14:45 07/25/17 14:44 Ondansetron HCl (Zofran Inj) 4 mg Q6H PRN IV 06/25/17 14:45 07/25/17 14:44 Multi-Ingredient Ointment (Eucerin Unscented Cr) 1 appln BID EXT 06/25/17 21:00 07/25/17 20:59 07/02/17 08:11 1 APPLN Metolazone (Zaroxolyn Tab) 5 mg TuTh@0830 PO 06/27/17 08:30 07/27/17 08:29 Future Hold 06/27/17 08:24 5 MG Spironolactone (Aldactone Tab) 25 mg DAILY PO 06/26/17 09:00 07/26/17 08:59 Future Hold 06/29/17 08:45 25 MG Insulin Aspart (novoLOG ASPART) SLIDING SCALE If C... ACHS SC 06/25/17 16:30 07/25/17 16:29 07/02/17 12:37 3 UNITS Glucose (Glucose 40% Gel) 15-30 GRAMS 15 GRAMS... UD PRN PO 06/25/17 15:30 07/25/17 15:29 Glucose (Glucose Chew Tab) 4-8 Tablets 4 Tabl... UD PRN PO 06/25/17 15:30 07/25/17 15:29 Dextrose (Dextrose 50% 50ML Syringe) 25-50ML OF 50% DW IV FOR... UD PRN IV 06/25/17 15:30 07/25/17 15:29 Glucagon (Glucagon Inj) 1 mg UD PRN SQ 06/25/17 15:30 07/25/17 15:29 Heparin Sodium (Porcine) (Heparin Sq 5000 Unit/0.5ml) 5,000 unit Q8 SQ 06/25/17 22:00 07/25/17 21:59 Daptomycin 650 mg/ Syringe 13 ml @ 6.5 mls/min DAILY@0800 IV 06/26/17 08:00 07/10/17 07:59 07/03/17 08:08 6.5 MLS/MIN Oxycodone HCl (Roxicodone Immediate Rel Tab) 5 mg Q8H PRN PO 06/26/17 01:00 07/09/17 14:44 07/03/17 04:42 5 MG Zolpidem Tartrate (Ambien Tab) 5 mg HS PRN PO 06/26/17 21:00 07/25/17 20:59 06/27/17 22:48 5 MG Miconazole Nitrate (Desenex Powder) 1 appln PRN PRN EXT 06/27/17 23:15 07/27/17 23:14 Menthol (Nice Umberto) 1 umberto PRN PRN PO 06/28/17 14:30 07/28/17 14:29 06/28/17 14:30 1 UMBERTO Insulin Glargine (Lantus Solostar Pen) 15 units HS SC 06/28/17 21:00 07/28/17 20:59 07/02/17 21:48 15 UNITS Ferrous Sulfate (Feosol Tab) 325 mg BIDM PO 06/29/17 09:15 07/29/17 09:14 Bumetanide (Bumex Tab) 1 mg BID@0900,1930 PO 06/29/17 19:30 07/29/17 19:29 Future Hold 06/29/17 20:13 1 MG Glimepiride (Amaryl Tab) 2 mg QAM PO 07/01/17 09:00 07/31/17 08:59 07/03/17 08:01 2 MG Heparin Sodium (Porcine) (Heparin 10 Unit/ ml 5 ml Flush) 5 ml PRN PRN FLUSH 06/30/17 19:00 07/30/17 18:59 07/03/17 06:50 5 ML Bumetanide (Bumex Tab) 1 mg BID17 PO 07/03/17 09:00 08/02/17 08:59 07/03/17 08:02 1 MG Objective Vital Signs Date Time Temp Pulse Resp B/P (MAP) Pulse Ox O2 Delivery O2 Flow Rate FiO2 07/03/17 08:00 95 Nasal Cannula 4.0 07/03/17 08:00 36.4 99 20 116/75 (89) 95 07/03/17 00:45 Nasal Cannula 4.0 07/03/17 00:38 36.9 109 18 119/76 (90) 94 Nasal Cannula 4.0 07/02/17 17:00 36.5 101 18 135/77 (96) 91 Nasal Cannula 4.0 07/02/17 16:30 Nasal Cannula 4.0 Physical Exam General Appearance: no apparent distress, + obese Eyes: normal inspection, EOMI, sclerae normal Neck: supple, no adenopathy, no JVD, trachea midline Respiratory/Chest: chest non-tender, lungs clear, normal breath sounds, no respiratory distress, no accessory muscle use Cardiovascular: regular rate, rhythm, no edema, no gallop, no JVD, no murmur Abdomen: normal bowel sounds, non tender, soft, no organomegaly Extremities: no pedal edema, no calf tenderness, normal capillary refill, pelvis stable Neurologic/Psychiatric: refund clerk II-XII nml as tested, alert, normal mood/affect, oriented x 3, + motor weakness Skin: normal color, warm/dry, no rash, + pertinent finding (heel ulcers and sacral ulcer) Laboratory Results Last 24 Hours Test 07/02/17 16:24 07/03/17 00:00 07/03/17 05:23 07/03/17 07:37 Bedside Glucose 133 mg/dl 118 mg/dl Urine Color YELLOW Urine Appearance CLEAR Urine pH 5.0 Urine Specific [place] 1.015 Urine Protein TRACE Urine Glucose (UA) NEG Urine Ketones NEG Urine Occult Blood 1+ Urine Nitrite NEG Urine Bilirubin NEG Urine Urobilinogen NEG Urine Leukocyte Esterase TRACE Urine WBC (Auto) 1-5 /hpf Urine RBC (Auto) 5-10 /hpf Urine Hyaline Casts (Auto) 1-5 /lpf Urine Epithelial Cells (Auto) 5-10 /lpf Urine Bacteria (Auto) NEG Urine Random Creatinine < 13.0 mg/dl Urine Random Total Protein 32.2 mg/dl Urine Protein/Creatinine Ratio White Blood Count 6.85 K/uL Red Blood Count 3.93 M/uL Hemoglobin 8.2 g/dL Hematocrit 28.6 % Mean Corpuscular Volume 72.8 fL Mean Corpuscular Hemoglobin 20.9 pg Mean Corpuscular Hemoglobin Concent 28.7 g/dl Platelet Count 222 K/uL Mean Platelet Volume 9.6 fL Neutrophils (%) (Auto) 63.9 % Lymphocytes (%) (Auto) 24.7 % Monocytes (%) (Auto) 8.2 % Eosinophils (%) (Auto) 2.8 % Basophils (%) (Auto) 0.3 % Neutrophils # (Auto) 4.38 K/uL Lymphocytes # (Auto) 1.69 K/uL Monocytes # (Auto) 0.56 K/uL Eosinophils # (Auto) 0.19 K/uL Basophils # (Auto) 0.02 K/uL RDW Standard Deviation 51.1 fL RDW Coefficient of Variation 19.2 % Immature Granulocyte % (Auto) 0.1 % Immature Granulocyte # (Auto) 0.01 K/uL Anisocytosis PRESENT Ovalocytes 1+ Sodium Level 137 mmol/L Potassium Level 4.5 mmol/L Chloride Level 101 mmol/L Carbon Dioxide Level 28 mmol/L Anion Gap 8.0 mmol/L Blood Urea Nitrogen 100 mg/dl Creatinine 2.20 mg/dl Est Creatinine Clear Calc Drug Dose 34.2 ml/min Estimated GFR () 27.5 Estimated GFR (Non- 23.8 BUN/Creatinine Ratio 45.5 Random Glucose 125 mg/dl Calcium Level 9.1 mg/dl Phosphorus Level 4.4 mg/dl Magnesium Level 2.2 mg/dl Assessment and Plan 57yo female - 1. right heel ulceration with superimposed infection - continue daptomycin for MRSA from culture. Day #9 of such. PICC placed on 06/30, will need several weeks of Daptomycin, follow up with Dr. Brown follow with wound clinic, right heel excisional debridement performed on 06/28 pain controlled today 2. complicated e. coli UTI due to chronic rodriguez usage - completed 5 days of Rocephin, no further treatment needed 3. acute/chronic right-sided CHF/diastolic CHF - acute component resolved. resume Bumex BID on 07/03 Cr 2.2 today will stop Aldactone and Zaroxolyn 4. acute kidney injury in setting of CKD stage 3 - now more likely what appears Stage IV CKD appreciate nephrology consultation patient needs to establish care with fibre cement moulder, will likely need HD in the future need to manage anemia, secondary hyperphosphatemia 5. T2DM, uncontrolled - multiple lengthy discussions held with patient about importance of glycemic control to help promote wound healing, etc. Encouraged basal-bolus insulin. She agreed to the lantus, refusing Novolog and ACHS sugars despite medical advice Amaryl resumed because patient was adamant about using, warned against problems with renal function, she will continue to use on discharge no issues with hypoglycemia, sugars generally high 100's to mid 200's 6. DVT proph - heparin ordered, but patient refusing. she was warned about high risk for DVT due to immobility, still refusing 7. stage IV sacral decubitus ulcer - pt refusing to have this area examined by staff. 8. 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 needs to exchanged prior to discharge. 9. COPD with chronic hypoxic respiratory failure - stable. 10. hyponatremia - due to CKD, diuresis - resolved. 11. iron def anemia, anemia of CKD- appears chronic x 1-2 years. refusing PO iron. explained importance of such. heme occult negative will give Venofer 100mg daily x 3 days, today is last dose planning on home with home health, IV Daptomycin, wound care likely ready for home tomorrow Continued [facility] stay due to: multiple IV medications needed Discharge planning: home with home health, home with IV medication
[2017-07-03 15:26] VITALS: BP 111/65; PULSE 105; TEMP 36.4; O2SAT 90
[2017-07-03] MEDS: INSULIN GLARGINE SOLOSTAR 100 UNITS/ML 3 ML PEN SC SCH (20:57)
[2017-07-03] MEDS: ACETAMINOPHEN 325 MG TAB PO PRN (22:35)
[2017-07-03 23:25] VITALS: BP 175/73; PULSE 114; TEMP 36.6; O2SAT 90
[2017-07-04] MEDS: OXYCODONE HCL IR 5 MG TAB (IMMEDIATE RELEASE) PO PRN ×2 (01:10→18:34)
[2017-07-04] MEDS: HEPARIN SOD 5000 UNIT/0.5 ML CARP SQ SCH ×3 (05:36→20:55)
[2017-07-04] MEDS: INSULIN ASPART 100 UNITS/ML 3 ML PEN SC SCH ×4 (06:30→20:54)
--- NOTE | 2017-07-04 07:03 | Nephrology Progress Note ---
Nephrology Progress Note Date of Service: Jul 04, 2017. Subjective 57 yo female with ckd stage 4 in the setting of diabetes and right sided heart failure and hx of tobacco abuse in the past. pt sitting oob to chair and using bipap. had a "rough" night. pt appears comfortable to me this morning. refused renal us. Objective Date Time Temp Pulse Resp B/P (MAP) Pulse Ox O2 Delivery O2 Flow Rate FiO2 07/04/17 00:00 Nasal Cannula 4.0 07/03/17 23:25 36.6 114 20 175/73 (107) 90 4.0 07/03/17 20:00 Nasal Cannula 4.0 07/03/17 15:26 36.4 105 22 111/65 (80) 90 Nasal Cannula 4.0 07/03/17 15:00 95 Nasal Cannula 4.0 07/03/17 08:00 95 Nasal Cannula 4.0 07/03/17 08:00 36.4 99 20 116/75 (89) 95 Physical Exam: General-aaox3, obese Eyes-no scleral icterus ENT-mmm Neck-supple Lungs-decreased at bases Heart-tachy Abdomen-+pannus, +bs Extremities-mild edema, wounds covered Neuro-nonfocal Current Inpatient Medications Medications (Trade) Dose Ordered Sig/Bruno Route Start Time Stop Time Status Last Admin Dose Admin Acetaminophen (Tylenol Tab) 650 mg Q4H PRN PO 06/25/17 14:45 07/25/17 14:44 07/03/17 22:35 650 MG Magnesium Hydroxide (Milk Of Magnesia Susp) 30 ml Q6H PRN PO 06/25/17 14:45 07/25/17 14:44 Polyethylene (Miralax Powder Packet) 17 gm DAILY PRN PO 06/25/17 14:45 07/25/17 14:44 Ondansetron HCl (Zofran Inj) 4 mg Q6H PRN IV 06/25/17 14:45 07/25/17 14:44 Multi-Ingredient Ointment (Eucerin Unscented Cr) 1 appln BID EXT 06/25/17 21:00 07/25/17 20:59 07/02/17 08:11 1 APPLN Metolazone (Zaroxolyn Tab) 5 mg TuTh@0830 PO 06/27/17 08:30 07/27/17 08:29 Future Hold 06/27/17 08:24 5 MG Spironolactone (Aldactone Tab) 25 mg DAILY PO 06/26/17 09:00 07/26/17 08:59 Future Hold 06/29/17 08:45 25 MG Insulin Aspart (novoLOG ASPART) SLIDING SCALE If C... ACHS SC 06/25/17 16:30 07/25/17 16:29 07/02/17 12:37 3 UNITS Glucose (Glucose 40% Gel) 15-30 GRAMS 15 GRAMS... UD PRN PO 06/25/17 15:30 07/25/17 15:29 Glucose (Glucose Chew Tab) 4-8 Tablets 4 Tabl... UD PRN PO 06/25/17 15:30 07/25/17 15:29 Dextrose (Dextrose 50% 50ML Syringe) 25-50ML OF 50% DW IV FOR... UD PRN IV 06/25/17 15:30 07/25/17 15:29 Glucagon (Glucagon Inj) 1 mg UD PRN SQ 06/25/17 15:30 07/25/17 15:29 Heparin Sodium (Porcine) (Heparin Sq 5000 Unit/0.5ml) 5,000 unit Q8 SQ 06/25/17 22:00 07/25/17 21:59 Daptomycin 650 mg/ Syringe 13 ml @ 6.5 mls/min DAILY@0800 IV 06/26/17 08:00 07/10/17 07:59 07/03/17 08:08 6.5 MLS/MIN Oxycodone HCl (Roxicodone Immediate Rel Tab) 5 mg Q8H PRN PO 06/26/17 01:00 07/09/17 14:44 07/04/17 01:10 5 MG Zolpidem Tartrate (Ambien Tab) 5 mg HS PRN PO 06/26/17 21:00 07/25/17 20:59 06/27/17 22:48 5 MG Miconazole Nitrate (Desenex Powder) 1 appln PRN PRN EXT 06/27/17 23:15 07/27/17 23:14 Menthol (Nice Umberto) 1 umberto PRN PRN PO 06/28/17 14:30 07/28/17 14:29 11/10/17 14:30 1 UMBETRO Insulin Glargine (Lantus Solostar Pen) 15 units HS SC 06/28/17 21:00 07/28/17 20:59 07/03/17 20:57 15 UNITS Ferrous Sulfate (Feosol Tab) 325 mg BIDM PO 06/29/17 09:15 07/29/17 09:14 Bumetanide (Bumex Tab) 1 mg BID@0900,1930 PO 06/29/17 19:30 07/29/17 19:29 Future Hold 06/29/17 20:13 1 MG Glimepiride (Amaryl Tab) 2 mg QAM PO 07/01/17 09:00 07/31/17 08:59 07/03/17 08:01 2 MG Heparin Sodium (Porcine) (Heparin 10 Unit/ ml 5 ml Flush) 5 ml PRN PRN FLUSH 06/30/17 19:00 07/30/17 18:59 07/04/17 05:50 5 ML Bumetanide (Bumex Tab) 1 mg BID17 PO 07/03/17 09:00 08/02/17 08:59 07/03/17 17:20 1 MG Last 24 Hours Test 07/03/17 07:37 07/03/17 11:49 07/04/17 05:38 Bedside Glucose 118 mg/dl 161 mg/dl Assessment & Plan ckd stage 4 with proteinuria in setting of diabetes and right sided heart failure requiring appropriate diuretics. volume status stable. trying to balance volume status while preserving kidney function. refused renal us. would recommend she establish with a mobile lounge driver in [place] where her pcp is located to help with communication between providers and have all of her care under the same umbrella. Iron deficiency anemia-on oral iron and did get venofer. recieved 300mg of iv venofer to help raise iron sats. if iron sat above 20% and ferritin above 100 and hg under 10, may be a candidate for procrit if she is agreeable to the risks. checking spep to be thorough. would recheck iron sat and ferritin tomorrow if still in house. RONALD: checking a vitamin d and pth level today.
[2017-07-04 08:00] VITALS: O2SAT 95
[2017-07-04] MEDS: FERROUS SULFATE 325 MG TAB PO SCH ×2 (08:00→17:00)
[2017-07-04] MEDS: EUCERIN CR 120 GM JAR EXT SCH ×2 (08:01→20:54)
[2017-07-04] MEDS: DAPTOmycin IV 650 MG in SYRINGE 0 ML IV SCH (08:54)
[2017-07-04] MEDS: GLIMEPIRIDE 2 MG TAB PO SCH (08:54)
[2017-07-04] MEDS: BUMETANIDE 1 MG TAB PO SCH ×2 (08:54→18:35)
[2017-07-04 10:40] LABS: CALCIUM 9.1 mg/dl (8.5-10.1); CREATININE 2.08 mg/dl (0.60-1.20); POTASSIUM 4.5 mmol/L (3.5-5.1)
[2017-07-04 10:47] LABS: HEMATOCRIT 29.9 % (37-47); HEMOGLOBIN 8.5 g/dL (12.0-16.0); MEAN CELL VOLUME 73.1 fL (80-100); MEAN CORPUSCULAR HEMOGLOBIN 20.8 pg (25-34); MEAN CORPUSCULAR HGB CONC 28.4 g/dl (32-36); MEAN PLATELET VOLUME 10.1 fL (7.4-10.4); PLATELET COUNT 211 K/uL (130-400); RED CELL DISTRIBUTION WIDTH CV 19.4 % (11.5-14.5); RED CELL DISTRIBUTION WIDTH SD 51.3 fL (36.4-46.3); WHITE BLOOD COUNT 7.62 K/uL (4.8-10.8)
--- NOTE | 2017-07-04 14:24 | Progress Note ---
Subjective Date of Service: Jul 04, 2017. Subjective Pt evaluation today including: conversation w/ patient, physical exam, lab review, review of inpatient medication list Pain: in feet PO Intake: adequate Voiding: rodriguez catheter in place patient understands that she cannot go home because home health will not take her she would agree to go to [facility] but they will not take her due to $10,000 bill she refuses to pay will be difficult to place she feels the same as yesterday discussed lab results, PTH high and vitamin D low discussed that she will most likely need HD in the future, should establish with outpatient provider refuses to think about HD Problem List Medical Problems: (1) Acute renal disease Status: Acute (2) Acute renal failure Status: Acute (3) ELIZABETH (acute kidney injury) Status: Acute (4) Cellulitis Status: Acute (5) Cellulitis of both lower extremities Status: Acute (6) CHF (congestive heart failure) Status: Acute (7) CHF (congestive heart failure) Status: Acute (8) Dehydration Status: Acute (9) Fluid overload Status: Acute (10) Hypoxia Status: Acute (11) MRSA (methicillin resistant Staphylococcus aureus) infection Status: Chronic (12) Pickwickian syndrome Status: Acute (13) Pneumonia Status: Acute (14) Respiratory failure Status: Acute (15) Sacral decubitus ulcer, stage III Status: Acute (16) UTI (urinary tract infection) Status: Acute Review of Systems Constitutional: + weakness, + fatigue Musculoskeletal: + joint pain (heels) All Other Systems: Reviewed and Negative Medications Current Inpatient Medications Medications (Trade) Dose Ordered Sig/Bruno Route Start Time Stop Time Status Last Admin Dose Admin Acetaminophen (Tylenol Tab) 650 mg Q4H PRN PO 06/25/17 14:45 07/25/17 14:44 07/03/17 22:35 650 MG Magnesium Hydroxide (Milk Of Magnesia Susp) 30 ml Q6H PRN PO 06/25/17 14:45 07/25/17 14:44 Polyethylene (Miralax Powder Packet) 17 gm DAILY PRN PO 06/25/17 14:45 07/25/17 14:44 Ondansetron HCl (Zofran Inj) 4 mg Q6H PRN IV 06/25/17 14:45 07/25/17 14:44 Multi-Ingredient Ointment (Eucerin Unscented Cr) 1 appln BID EXT 06/25/17 21:00 07/25/17 20:59 07/02/17 08:11 1 APPLN Metolazone (Zaroxolyn Tab) 5 mg TuTh@0830 PO 06/27/17 08:30 07/27/17 08:29 Future Hold 06/27/17 08:24 5 MG Spironolactone (Aldactone Tab) 25 mg DAILY PO 06/26/17 09:00 07/26/17 08:59 Future Hold 06/29/17 08:45 25 MG Insulin Aspart (novoLOG ASPART) SLIDING SCALE If C... ACHS SC 06/25/17 16:30 07/25/17 16:29 07/02/17 12:37 3 UNITS Glucose (Glucose 40% Gel) 15-30 GRAMS 15 GRAMS... UD PRN PO 06/25/17 15:30 07/25/17 15:29 Glucose (Glucose Chew Tab) 4-8 Tablets 4 Tabl... UD PRN PO 06/25/17 15:30 07/25/17 15:29 Dextrose (Dextrose 50% 50ML Syringe) 25-50ML OF 50% DW IV FOR... UD PRN IV 06/25/17 15:30 07/25/17 15:29 Glucagon (Glucagon Inj) 1 mg UD PRN SQ 06/25/17 15:30 07/25/17 15:29 Heparin Sodium (Porcine) (Heparin Sq 5000 Unit/0.5ml) 5,000 unit Q8 SQ 06/25/17 22:00 07/25/17 21:59 Daptomycin 650 mg/ Syringe 13 ml @ 6.5 mls/min DAILY@0800 IV 06/26/17 08:00 07/10/17 07:59 07/04/17 08:54 6.5 MLS/MIN Oxycodone HCl (Roxicodone Immediate Rel Tab) 5 mg Q8H PRN PO 06/26/17 01:00 07/09/17 14:44 07/04/17 01:10 5 MG Zolpidem Tartrate (Ambien Tab) 5 mg HS PRN PO 06/26/17 21:00 07/25/17 20:59 06/27/17 22:48 5 MG Miconazole Nitrate (Desenex Powder) 1 appln PRN PRN EXT 06/27/17 23:15 07/27/17 23:14 Menthol (Nice Umberto) 1 umberto PRN PRN PO 06/28/17 14:30 07/28/17 14:29 06/28/17 14:30 1 UMBERTO Insulin Glargine (Lantus Solostar Pen) 15 units HS SC 06/28/17 21:00 07/28/17 20:59 07/03/17 20:57 15 UNITS Ferrous Sulfate (Feosol Tab) 325 mg BIDM PO 06/29/17 09:15 07/29/17 09:14 Bumetanide (Bumex Tab) 1 mg BID@0900,1930 PO 06/29/17 19:30 07/29/17 19:29 Future Hold 06/29/17 20:13 1 MG Glimepiride (Amaryl Tab) 2 mg QAM PO 07/01/17 09:00 07/31/17 08:59 07/04/17 08:54 2 MG Heparin Sodium (Porcine) (Heparin 10 Unit/ ml 5 ml Flush) 5 ml PRN PRN FLUSH 06/30/17 19:00 07/30/17 18:59 07/04/17 08:54 5 ML Bumetanide (Bumex Tab) 1 mg BID17 PO 07/03/17 09:00 08/02/17 08:59 07/04/17 08:54 1 MG Objective Vital Signs Date Time Temp Pulse Resp B/P (MAP) Pulse Ox O2 Delivery O2 Flow Rate FiO2 07/04/17 08:00 95 Nasal Cannula 4.0 07/04/17 00:00 Nasal Cannula 4.0 07/03/17 23:25 36.6 114 20 175/73 (107) 90 4.0 07/03/17 20:00 Nasal Cannula 4.0 07/03/17 15:26 36.4 105 22 111/65 (80) 90 Nasal Cannula 4.0 07/03/17 15:00 95 Nasal Cannula 4.0 Physical Exam General Appearance: no apparent distress, + obese Eyes: normal inspection, EOMI, sclerae normal Neck: supple, no adenopathy, no JVD, trachea midline Respiratory/Chest: chest non-tender, lungs clear, normal breath sounds, no respiratory distress, no accessory muscle use Cardiovascular: regular rate, rhythm, no edema, no gallop, no JVD, no murmur Abdomen: normal bowel sounds, non tender, soft, no organomegaly Extremities: pelvis stable, + inflammation, + slow capillary refill, + swelling Neurologic/Psychiatric: staffing branch manager II-XII nml as tested, alert, normal mood/affect, oriented x 3, + motor weakness Skin: + pertinent finding (heel and sacral wounds) Laboratory Results Last 24 Hours Test 07/04/17 05:38 07/04/17 07:26 07/04/17 10:08 07/04/17 11:28 25-Hydroxy Vitamin D Total 9.6 ng/ml Parathyroid Hormone (Intact) 270.9 pg/mL Bedside Glucose 117 mg/dl 179 mg/dl White Blood Count 7.62 K/uL Red Blood Count 4.09 M/uL Hemoglobin 8.5 g/dL Hematocrit 29.9 % Mean Corpuscular Volume 73.1 fL Mean Corpuscular Hemoglobin 20.8 pg Mean Corpuscular Hemoglobin Concent 28.4 g/dl RDW Standard Deviation 51.3 fL RDW Coefficient of Variation 19.4 % Platelet Count 211 K/uL Mean Platelet Volume 10.1 fL Sodium Level 139 mmol/L Potassium Level 4.5 mmol/L Chloride Level 102 mmol/L Carbon Dioxide Level 27 mmol/L Anion Gap 10.0 mmol/L Blood Urea Nitrogen 99 mg/dl Creatinine 2.08 mg/dl Est Creatinine Clear Calc Drug Dose 36.2 ml/min Estimated GFR () 29.5 Estimated GFR (Non- 25.4 BUN/Creatinine Ratio 47.4 Random Glucose 226 mg/dl Calcium Level 9.1 mg/dl Assessment and Plan 57yo female - 1. right heel ulceration with superimposed infection - continue daptomycin for MRSA from culture. Day #9 of such. PICC placed on 06/30, will need several weeks of Daptomycin, follow up with Dr. Brown follow with wound clinic, right heel excisional debridement performed on 06/28 continues to have adequate pain control 2. complicated e. coli UTI due to chronic rodriguez usage - completed 5 days of Rocephin, no further treatment needed 3. acute/chronic right-sided CHF/diastolic CHF - acute component resolved. resume Bumex BID on 07/03 Cr 2.2 today will stop Aldactone and Zaroxolyn 4. Stage IV CKD due to DM appreciate nephrology consultation patient needs to establish care with central office repairer supervisor, will likely need HD in the future Vitamin D low and PTH high today repeating iron, ferritin tomorrow, may need ProCrit 5. T2DM, uncontrolled - multiple lengthy discussions held with patient about importance of glycemic control to help promote wound healing, etc. Encouraged basal-bolus insulin. She agreed to the lantus, refusing Novolog and ACHS sugars despite medical advice Amaryl resumed because patient was adamant about using, warned against problems with renal function, she will continue to use on discharge no issues with hypoglycemia, sugars generally high 100's to mid 200's 6. DVT proph - heparin ordered, but patient refusing. she was warned about high risk for DVT due to immobility, still refusing 7. stage IV sacral decubitus ulcer - pt refusing to have this area examined by staff. 8. 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 needs to exchanged prior to discharge. 9. COPD with chronic hypoxic respiratory failure - stable. 10. hyponatremia - due to CKD, diuresis - resolved. 11. iron def anemia, anemia of CKD- appears chronic x 1-2 years. refusing PO iron. explained importance of such. heme occult negative gave three doses of Venofer may need ProCrit difficult social situation, cannot go home with home health due to no agencies being willing to work with her cannot go to [facility] or [place] because she has outstanding bills will discuss again with patient about other SNF options Continued [facility] stay due to: multiple IV medications needed Discharge planning: home with home health, home with IV medication
[2017-07-04] MEDS: ACETAMINOPHEN 325 MG TAB PO PRN (15:39)
[2017-07-04] MEDS ORDERED: NURSING DECISION MEDICATION ORDER SCH (19:15)
[2017-07-04] MEDS: INSULIN GLARGINE SOLOSTAR 100 UNITS/ML 3 ML PEN SC SCH (20:54)
[2017-07-05] MEDS: OXYCODONE HCL IR 5 MG TAB (IMMEDIATE RELEASE) PO PRN ×2 (01:59→21:59)
[2017-07-05] MEDS: HEPARIN SOD 5000 UNIT/0.5 ML CARP SQ SCH ×3 (05:33→21:54)
[2017-07-05 06:23] LABS: HEMATOCRIT 29.2 % (37-47); HEMOGLOBIN 8.2 g/dL (12.0-16.0); MEAN CELL VOLUME 74.1 fL (80-100); MEAN CORPUSCULAR HEMOGLOBIN 20.8 pg (25-34); MEAN CORPUSCULAR HGB CONC 28.1 g/dl (32-36); MEAN PLATELET VOLUME 9.4 fL (7.4-10.4); PLATELET COUNT 217 K/uL (130-400); RED CELL DISTRIBUTION WIDTH CV 19.6 % (11.5-14.5); RED CELL DISTRIBUTION WIDTH SD 52.4 fL (36.4-46.3)
[2017-07-05 06:38] LABS: BASO % 0.4 %; BASO ABS # 0.03 K/uL (0-0.2); EOS % 2.1 %; EOS ABS # 0.16 K/uL (0-0.5); IG# 0.02 K/uL (0.00-0.02); LYMPH % 21.1 %; LYMPH ABS # 1.58 K/uL (1.2-3.4); MONO ABS # 0.45 K/uL (0.11-0.59); NEUT % 70.1 %; NEUT ABS # 5.26 K/uL (1.4-6.5)
[2017-07-05 06:50] LABS: CALCIUM 9.3 mg/dl (8.5-10.1); CREATININE 2.04 mg/dl (0.60-1.20); POTASSIUM 4.6 mmol/L (3.5-5.1)
[2017-07-05 06:55] LABS: PHOSPHORUS 4.7 mg/dl (2.5-4.9)
--- NOTE | 2017-07-05 07:03 | Nephrology Progress Note ---
Nephrology Progress Note Date of Service: Jul 05, 2017. Subjective 57 yo female with ckd stage 4 in the setting of diabetes and right sided heart failure and hx of tobacco abuse in the past. pt sitting oob to chair. feels good. no complaints. Objective Date Time Temp Pulse Resp B/P (MAP) Pulse Ox O2 Delivery O2 Flow Rate FiO2 07/05/17 00:00 Nasal Cannula 4.0 07/04/17 16:00 Nasal Cannula 4.0 07/04/17 08:00 95 Nasal Cannula 4.0 Physical Exam: General-aaox3, obese Eyes-no scleral icterus ENT-mmm Neck-supple Lungs-decreased at bases Heart-tachycardia Abdomen-+pannus, +bs Extremities-mild edema, wounds covered Neuro-nonfocal -+rodriguez Current Inpatient Medications Medications (Trade) Dose Ordered Sig/Bruno Route Start Time Stop Time Status Last Admin Dose Admin Acetaminophen (Tylenol Tab) 650 mg Q4H PRN PO 06/25/17 14:45 07/25/17 14:44 07/04/17 15:39 650 MG Magnesium Hydroxide (Milk Of Magnesia Susp) 30 ml Q6H PRN PO 06/25/17 14:45 07/25/17 14:44 Polyethylene (Miralax Powder Packet) 17 gm DAILY PRN PO 06/25/17 14:45 07/25/17 14:44 Ondansetron HCl (Zofran Inj) 4 mg Q6H PRN IV 06/25/17 14:45 07/25/17 14:44 Multi-Ingredient Ointment (Eucerin Unscented Cr) 1 appln BID EXT 06/25/17 21:00 07/25/17 20:59 07/02/17 08:11 1 APPLN Metolazone (Zaroxolyn Tab) 5 mg TuTh@0830 PO 06/27/17 08:30 07/27/17 08:29 Future Hold 06/27/17 08:24 5 MG Spironolactone (Aldactone Tab) 25 mg DAILY PO 06/26/17 09:00 07/26/17 08:59 Future Hold 06/29/17 08:45 25 MG Insulin Aspart (novoLOG ASPART) SLIDING SCALE If C... ACHS SC 06/25/17 16:30 07/25/17 16:29 07/02/17 12:37 3 UNITS Glucose (Glucose 40% Gel) 15-30 GRAMS 15 GRAMS... UD PRN PO 06/25/17 15:30 07/25/17 15:29 Glucose (Glucose Chew Tab) 4-8 Tablets 4 Tabl... UD PRN PO 06/25/17 15:30 07/25/17 15:29 Dextrose (Dextrose 50% 50ML Syringe) 25-50ML OF 50% DW IV FOR... UD PRN IV 06/25/17 15:30 07/25/17 15:29 Glucagon (Glucagon Inj) 1 mg UD PRN SQ 06/25/17 15:30 07/25/17 15:29 Heparin Sodium (Porcine) (Heparin Sq 5000 Unit/0.5ml) 5,000 unit Q8 SQ 06/25/17 22:00 07/25/17 21:59 Daptomycin 650 mg/ Syringe 13 ml @ 6.5 mls/min DAILY@0800 IV 06/26/17 08:00 07/10/17 07:59 07/04/17 08:54 6.5 MLS/MIN Zolpidem Tartrate (Ambien Tab) 5 mg HS PRN PO 06/26/17 21:00 07/25/17 20:59 06/27/17 22:48 5 MG Miconazole Nitrate (Desenex Powder) 1 appln PRN PRN EXT 06/27/17 23:15 07/27/17 23:14 Menthol (Nice Umberto) 1 umberto PRN PRN PO 06/28/17 14:30 07/28/17 14:29 06/28/17 14:30 1 UMBERTO Insulin Glargine (Lantus Solostar Pen) 15 units HS SC 06/28/17 21:00 07/28/17 20:59 07/03/17 20:57 15 UNITS Ferrous Sulfate (Feosol Tab) 325 mg BIDM PO 06/29/17 09:15 07/29/17 09:14 Bumetanide (Bumex Tab) 1 mg BID@0900,1930 PO 06/29/17 19:30 07/29/17 19:29 Future Hold 06/29/17 20:13 1 MG Glimepiride (Amaryl Tab) 2 mg QAM PO 07/01/17 09:00 12/13/17 08:59 07/04/17 08:54 2 MG Heparin Sodium (Porcine) (Heparin 10 Unit/ ml 5 ml Flush) 5 ml PRN PRN FLUSH 06/30/17 19:00 07/30/17 18:59 07/05/17 05:54 5 ML Bumetanide (Bumex Tab) 1 mg BID17 PO 07/03/17 09:00 08/02/17 08:59 07/04/17 18:35 1 MG Oxycodone HCl (Roxicodone Immediate Rel Tab) 5 mg Q6H PRN PO 07/05/17 01:45 07/09/17 14:44 07/05/17 01:59 5 MG Ergocalciferol (Vitamin D Cap) 50,000 interunit Fr@0900 PO 07/05/17 09:00 08/04/17 08:59 Last 24 Hours Test 07/04/17 07:26 07/04/17 10:08 07/04/17 11:28 07/04/17 16:41 Bedside Glucose 117 mg/dl 179 mg/dl 132 mg/dl White Blood Count 7.62 K/uL Red Blood Count 4.09 M/uL Hemoglobin 8.5 g/dL Hematocrit 29.9 % Mean Corpuscular Volume 73.1 fL Mean Corpuscular Hemoglobin 20.8 pg Mean Corpuscular Hemoglobin Concent 28.4 g/dl RDW Standard Deviation 51.3 fL RDW Coefficient of Variation 19.4 % Platelet Count 211 K/uL Mean Platelet Volume 10.1 fL Sodium Level 139 mmol/L Potassium Level 4.5 mmol/L Chloride Level 102 mmol/L Carbon Dioxide Level 27 mmol/L Anion Gap 10.0 mmol/L Blood Urea Nitrogen 99 mg/dl Creatinine 2.08 mg/dl Est Creatinine Clear Calc Drug Dose 36.2 ml/min Estimated GFR () 29.5 Estimated GFR (Non- 25.4 BUN/Creatinine Ratio 47.4 Random Glucose 226 mg/dl Calcium Level 9.1 mg/dl Test 07/05/17 05:54 07/05/17 06:34 White Blood Count 7.50 K/uL Red Blood Count 3.94 M/uL Hemoglobin 8.2 g/dL Hematocrit 29.2 % Mean Corpuscular Volume 74.1 fL Mean Corpuscular Hemoglobin 20.8 pg Mean Corpuscular Hemoglobin Concent 28.1 g/dl Platelet Count 217 K/uL Mean Platelet Volume 9.4 fL Neutrophils (%) (Auto) 70.1 % Lymphocytes (%) (Auto) 21.1 % Monocytes (%) (Auto) 6.0 % Eosinophils (%) (Auto) 2.1 % Basophils (%) (Auto) 0.4 % Neutrophils # (Auto) 5.26 K/uL Lymphocytes # (Auto) 1.58 K/uL Monocytes # (Auto) 0.45 K/uL Eosinophils # (Auto) 0.16 K/uL Basophils # (Auto) 0.03 K/uL RDW Standard Deviation 52.4 fL RDW Coefficient of Variation 19.6 % Immature Granulocyte % (Auto) 0.3 % Immature Granulocyte # (Auto) 0.02 K/uL Anisocytosis PRESENT Ovalocytes 1+ Sodium Level 138 mmol/L Potassium Level 4.6 mmol/L Chloride Level 102 mmol/L Carbon Dioxide Level 31 mmol/L Anion Gap 5.0 mmol/L Blood Urea Nitrogen 107 mg/dl Creatinine 2.04 mg/dl Est Creatinine Clear Calc Drug Dose 36.9 ml/min Estimated GFR () 30.2 Estimated GFR (Non- 26.0 BUN/Creatinine Ratio 52.7 Random Glucose 170 mg/dl Calcium Level 9.3 mg/dl Phosphorus Level 4.7 mg/dl Magnesium Level 2.1 mg/dl Iron Level 39 mcg/dl Total Iron Binding Capacity 322 mcg/dl Ferritin 118.9 ng/ml Transferrin % Saturation % Assessment & Plan ckd stage 4 with proteinuria in setting of diabetes and right sided heart failure requiring appropriate diuretics. volume status stable. Iron deficiency anemia-on oral iron and did get venofer. tsat pending for today. would redose another 100mg of iv venofer today if iron sat below 20%. if tsat above 20% and ferritin above 100 and hg under 10, may be a candidate for procrit which she could discuss further with as she tries to establish with an outside machine tester. RONALD: vitamin d levels are low. started her on 50,000 units weekly. there are several different protocols for low vitamin d. she could take 5000 units otc vitamin d daily as well.
[2017-07-05 07:10] VITALS: BP 125/63; PULSE 104; TEMP 36.7; O2SAT 93
[2017-07-05 07:19] LABS: TRANSFERRIN 273 mg/dl (200-360)
[2017-07-05] MEDS ORDERED: IRON SUCROSE INJ 100 MG in SODIUM CHLORIDE 0.9% 100ML 100 ML IV ONE (07:45)
[2017-07-05] MEDS: FERROUS SULFATE 325 MG TAB PO SCH ×2 (08:00→17:00)
[2017-07-05] MEDS ORDERED: IRON SUCROSE INJ 100 MG in SODIUM CHLORIDE 0.9% 100ML 100 ML IV SCH (08:15)
[2017-07-05] MEDS: EUCERIN CR 120 GM JAR EXT SCH ×2 (09:00→21:49)
[2017-07-05] MEDS: DAPTOmycin IV 650 MG in SYRINGE 0 ML IV SCH (09:03)
[2017-07-05] MEDS: ACETAMINOPHEN 325 MG TAB PO PRN ×2 (09:05→17:43)
[2017-07-05] MEDS: BUMETANIDE 1 MG TAB PO SCH ×2 (09:07→19:14)
[2017-07-05] MEDS: GLIMEPIRIDE 2 MG TAB PO SCH (09:10)
[2017-07-05] MEDS: INSULIN ASPART 100 UNITS/ML 3 ML PEN SC SCH ×4 (09:11→21:00)
[2017-07-05] MEDS: ERGOCALCIFEROL 50,000 INTER.UNIT CAP PO SCH (09:12)
[2017-07-05 14:49] VITALS: BP 117/77; PULSE 104; TEMP 36.6; O2SAT 94
[2017-07-05 16:30] VITALS: O2SAT 94
[2017-07-05] MEDS ORDERED: FLUCONAZOLE 100 MG TAB PO ONE (16:45)
--- NOTE | 2017-07-05 21:46 | Progress Note ---
Subjective Date of Service: Jul 05, 2017. Subjective Pt evaluation today including: conversation w/ patient, physical exam, lab review, conversation w/ claims consultant, review of inpatient medication list Pain: heels PO Intake: adequate Voiding: rodriguez catheter in place patient feeling the same c/o yeast infection today, requesting Diflucan discussed situation with [facility], owing them $10,000 she claims it is issue with Medicare/Medicaid enrollment since she lived in [facility] and was at [facility] for 9 months asked her to consider [facility] in [place] she does not like that idea, explained that she really won't have a choice Problem List Medical Problems: (1) Acute renal disease Status: Acute (2) Acute renal failure Status: Acute (3) ELIZABETH (acute kidney injury) Status: Acute (4) Cellulitis Status: Acute (5) Cellulitis of both lower extremities Status: Acute (6) CHF (congestive heart failure) Status: Acute (7) CHF (congestive heart failure) Status: Acute (8) Dehydration Status: Acute (9) Fluid overload Status: Acute (10) Hypoxia Status: Acute (11) MRSA (methicillin resistant Staphylococcus aureus) infection Status: Chronic (12) Pickwickian syndrome Status: Acute (13) Pneumonia Status: Acute (14) Respiratory failure Status: Acute (15) Sacral decubitus ulcer, stage III Status: Acute (16) UTI (urinary tract infection) Status: Acute Review of Systems Constitutional: + weakness, + fatigue Musculoskeletal: + joint pain (heel pain) Female : + problem reported (yeast infection) Neurologic: + weakness, + numbness/tingling All Other Systems: Reviewed and Negative Medications Current Inpatient Medications Medications (Trade) Dose Ordered Sig/Bruno Route Start Time Stop Time Status Last Admin Dose Admin Acetaminophen (Tylenol Tab) 650 mg Q4H PRN PO 06/25/17 14:45 07/25/17 14:44 07/05/17 17:43 650 MG Magnesium Hydroxide (Milk Of Magnesia Susp) 30 ml Q6H PRN PO 06/25/17 14:45 07/25/17 14:44 Polyethylene (Miralax Powder Packet) 17 gm DAILY PRN PO 06/25/17 14:45 07/25/17 14:44 Ondansetron HCl (Zofran Inj) 4 mg Q6H PRN IV 06/25/17 14:45 07/25/17 14:44 Multi-Ingredient Ointment (Eucerin Unscented Cr) 1 appln BID EXT 06/25/17 21:00 07/25/17 20:59 07/02/17 08:11 1 APPLN Metolazone (Zaroxolyn Tab) 5 mg TuTh@0830 PO 06/27/17 08:30 07/27/17 08:29 Future Hold 06/27/17 08:24 5 MG Spironolactone (Aldactone Tab) 25 mg DAILY PO 06/26/17 09:00 07/26/17 08:59 Future Hold 06/29/17 08:45 25 MG Insulin Aspart (novoLOG ASPART) SLIDING SCALE If C... ACHS SC 06/25/17 16:30 07/25/17 16:29 07/05/17 09:11 5 UNITS Glucose (Glucose 40% Gel) 15-30 GRAMS 15 GRAMS... UD PRN PO 06/25/17 15:30 07/25/17 15:29 Glucose (Glucose Chew Tab) 4-8 Tablets 4 Tabl... UD PRN PO 06/25/17 15:30 07/25/17 15:29 Dextrose (Dextrose 50% 50ML Syringe) 25-50ML OF 50% DW IV FOR... UD PRN IV 06/25/17 15:30 07/25/17 15:29 Glucagon (Glucagon Inj) 1 mg UD PRN SQ 06/25/17 15:30 07/25/17 15:29 Heparin Sodium (Porcine) (Heparin Sq 5000 Unit/0.5ml) 5,000 unit Q8 SQ 06/25/17 22:00 07/25/17 21:59 Daptomycin 650 mg/ Syringe 13 ml @ 6.5 mls/min DAILY@0800 IV 06/26/17 08:00 07/10/17 07:59 07/05/17 09:03 6.5 MLS/MIN Zolpidem Tartrate (Ambien Tab) 5 mg HS PRN PO 06/26/17 21:00 07/25/17 20:59 06/27/17 22:48 5 MG Miconazole Nitrate (Desenex Powder) 1 appln PRN PRN EXT 06/27/17 23:15 07/27/17 23:14 Menthol (Nice Umberto) 1 umberto PRN PRN PO 06/28/17 14:30 07/28/17 14:29 06/28/17 14:30 1 UMBERTO Insulin Glargine (Lantus Solostar Pen) 15 units HS SC 06/28/17 21:00 07/28/17 20:59 07/03/17 20:57 15 UNITS Ferrous Sulfate (Feosol Tab) 325 mg BIDM PO 06/29/17 09:15 07/29/17 09:14 Bumetanide (Bumex Tab) 1 mg BID@0900,1930 PO 06/29/17 19:30 07/29/17 19:29 Future Hold 06/29/17 20:13 1 MG Glimepiride (Amaryl Tab) 2 mg QAM PO 07/01/17 09:00 07/31/17 08:59 07/05/17 09:10 2 MG Heparin Sodium (Porcine) (Heparin 10 Unit/ ml 5 ml Flush) 5 ml PRN PRN FLUSH 06/30/17 19:00 07/30/17 18:59 07/05/17 09:03 5 ML Bumetanide (Bumex Tab) 1 mg BID17 PO 07/03/17 09:00 08/02/17 08:59 07/05/17 19:14 1 MG Oxycodone HCl (Roxicodone Immediate Rel Tab) 5 mg Q6H PRN PO 07/05/17 01:45 07/09/17 14:44 07/05/17 01:59 5 MG Ergocalciferol (Vitamin D Cap) 50,000 interunit Fr@0900 PO 07/05/17 09:00 08/04/17 08:59 07/05/17 09:12 50,000 INTERUNIT Fluconazole (Diflucan Tab) 100 mg QAM PO 07/06/17 09:00 07/16/17 08:59 Objective Vital Signs Date Time Temp Pulse Resp B/P (MAP) Pulse Ox O2 Delivery O2 Flow Rate FiO2 07/05/17 14:49 36.6 104 20 117/77 (90) 94 Nasal Cannula 3.0 07/05/17 08:00 Nasal Cannula 3.0 07/05/17 07:10 36.7 104 18 125/63 (83) 93 Nasal Cannula 3.0 07/05/17 00:00 Nasal Cannula 4.0 Physical Exam General Appearance: no apparent distress, + obese Eyes: normal inspection, EOMI, sclerae normal Respiratory/Chest: chest non-tender, lungs clear, normal breath sounds, no respiratory distress, no accessory muscle use Cardiovascular: regular rate, rhythm, no edema, no gallop, no JVD, no murmur Abdomen: normal bowel sounds, non tender, soft, no organomegaly Extremities: no pedal edema, no calf tenderness, pelvis stable, + inflammation , + slow capillary refill, + swelling 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, alert, normal mood/affect, oriented x 3, + motor weakness Skin: + pertinent finding (heel and sacral ulcers) Laboratory Results Last 24 Hours Test 07/05/17 05:54 07/05/17 06:34 07/05/17 07:51 07/05/17 10:55 White Blood Count 7.50 K/uL Red Blood Count 3.94 M/uL Hemoglobin 8.2 g/dL Hematocrit 29.2 % Mean Corpuscular Volume 74.1 fL Mean Corpuscular Hemoglobin 20.8 pg Mean Corpuscular Hemoglobin Concent 28.1 g/dl Platelet Count 217 K/uL Mean Platelet Volume 9.4 fL Neutrophils (%) (Auto) 70.1 % Lymphocytes (%) (Auto) 21.1 % Monocytes (%) (Auto) 6.0 % Eosinophils (%) (Auto) 2.1 % Basophils (%) (Auto) 0.4 % Neutrophils # (Auto) 5.26 K/uL Lymphocytes # (Auto) 1.58 K/uL Monocytes # (Auto) 0.45 K/uL Eosinophils # (Auto) 0.16 K/uL Basophils # (Auto) 0.03 K/uL RDW Standard Deviation 52.4 fL RDW Coefficient of Variation 19.6 % Immature Granulocyte % (Auto) 0.3 % Immature Granulocyte # (Auto) 0.02 K/uL Anisocytosis PRESENT Ovalocytes 1+ Sodium Level 138 mmol/L Potassium Level 4.6 mmol/L Chloride Level 102 mmol/L Carbon Dioxide Level 31 mmol/L Anion Gap 5.0 mmol/L Blood Urea Nitrogen 107 mg/dl Creatinine 2.04 mg/dl Est Creatinine Clear Calc Drug Dose 36.9 ml/min Estimated GFR () 30.2 Estimated GFR (Non- 26.0 BUN/Creatinine Ratio 52.7 Random Glucose 170 mg/dl Calcium Level 9.3 mg/dl Phosphorus Level 4.7 mg/dl Magnesium Level 2.1 mg/dl Iron Level 39 mcg/dl 38 mcg/dl Total Iron Binding Capacity 322 mcg/dl 317 mcg/dl Ferritin 118.9 ng/ml Transferrin 273 mg/dl Transferrin % Saturation 10 % Bedside Glucose 283 mg/dl 166 mg/dl Test 07/05/17 16:39 07/05/17 20:01 Bedside Glucose 143 mg/dl 199 mg/dl Assessment and Plan 57yo female - 1. right heel ulceration with superimposed infection - continue daptomycin for MRSA from culture. Day #9 of such. PICC placed on 06/30, will need several weeks of Daptomycin, follow up with Dr. Brown follow with wound clinic, right heel excisional debridement performed on 06/28 continues to have adequate pain control IV Daptomycin could be difficult for placement but there are no other options currently 2. complicated e. coli UTI due to chronic rodriguez usage - completed 5 days of Rocephin, no further treatment needed 3. acute/chronic right-sided CHF/diastolic CHF - acute component resolved. resume Bumex BID on 07/03 Cr 2.0 today will stop Aldactone and Zaroxolyn 4. Stage IV CKD due to DM appreciate nephrology consultation patient needs to establish care with [facility], will likely need HD in the future Vitamin D low and PTH high discussed with Dr. Nava today, will need Venofer daily while here may need Procrit if Hb < 10 and transferrin % > 20 5. T2DM, uncontrolled - multiple lengthy discussions held with patient about importance of glycemic control to help promote wound healing, etc. Encouraged basal-bolus insulin. She agreed to the lantus, refusing Novolog and ACHS sugars despite medical advice Amaryl resumed because patient was adamant about using, warned against problems with renal function, she will continue to use on discharge no issues with hypoglycemia, sugars generally high 100's to mid 200's 6. DVT proph - heparin ordered, but patient refusing. she was warned about high risk for DVT due to immobility, still refusing 7. stage IV sacral decubitus ulcer - pt refusing to have this area examined by staff. 8. 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 needs to exchanged prior to discharge. 9. COPD with chronic hypoxic respiratory failure - stable. 10. hyponatremia - due to CKD, diuresis - resolved. 11. iron def anemia, anemia of CKD- appears chronic x 1-2 years. refusing PO iron. explained importance of such. heme occult negative continue Venofer daily while admitted may need ProCrit difficult social situation, cannot go home with home health due to no agencies being willing to work with her cannot go to [facility] or [place] because she has outstanding bills discussed [facility], patient will need to consider this cannot go to [facility] due to cost of Daptomycin Continued [facility] stay due to: multiple IV medications needed Discharge planning: home with home health, home with IV medication
[2017-07-05] MEDS: INSULIN GLARGINE SOLOSTAR 100 UNITS/ML 3 ML PEN SC SCH (21:52)
[2017-07-05 23:28] VITALS: BP 124/63; PULSE 99; TEMP 37; O2SAT 95
[2017-07-06] MEDS: HEPARIN SOD 5000 UNIT/0.5 ML CARP SQ SCH ×3 (06:00→21:22)
[2017-07-06 07:08] VITALS: BP 112/74; PULSE 91; TEMP 36.8; O2SAT 98
[2017-07-06] MEDS: EUCERIN CR 120 GM JAR EXT SCH ×2 (09:00→21:00)
[2017-07-06] MEDS: INSULIN ASPART 100 UNITS/ML 3 ML PEN SC SCH ×4 (09:12→21:22)
[2017-07-06] MEDS: ACETAMINOPHEN 325 MG TAB PO PRN ×2 (09:24→19:05)
[2017-07-06] MEDS: DAPTOmycin IV 650 MG in SYRINGE 0 ML IV SCH (09:24)
[2017-07-06] MEDS: BUMETANIDE 1 MG TAB PO SCH ×2 (09:25→19:04)
[2017-07-06] MEDS: FERROUS SULFATE 325 MG TAB PO SCH ×2 (09:25→17:00)
[2017-07-06] MEDS: FLUCONAZOLE 100 MG TAB PO SCH (09:25)
[2017-07-06] MEDS: GLIMEPIRIDE 2 MG TAB PO SCH (09:26)
[2017-07-06] MEDS ORDERED: IRON SUCROSE INJ 100 MG in SODIUM CHLORIDE 0.9% 100ML 100 ML IV ONE (11:00)
[2017-07-06 16:15] VITALS: BP 116/69; PULSE 98; TEMP 37; O2SAT 95
--- NOTE | 2017-07-06 19:36 | Infectious Disease Progress Nt ---
Progress Note Date of Service Jul 06, 2017. Subjective Pt evaluation today including: conversation w/ patient, physical exam, chart review, lab review, review of studies, conversation w/ provider contracting consultant, review of inpatient medication list patient offering no new complaints. Pain in her right leg is controlled. No fever. Tolerating antibiotics without apparent difficulty. All Other Systems: Reviewed and Negative Medications Current Inpatient Medications Medications (Trade) Dose Ordered Sig/Bruno Route Start Time Stop Time Status Last Admin Dose Admin Acetaminophen (Tylenol Tab) 650 mg Q4H PRN PO 06/25/17 14:45 07/25/17 14:44 07/06/17 19:05 650 MG Magnesium Hydroxide (Milk Of Magnesia Susp) 30 ml Q6H PRN PO 06/25/17 14:45 07/25/17 14:44 Polyethylene (Miralax Powder Packet) 17 gm DAILY PRN PO 06/25/17 14:45 07/25/17 14:44 Ondansetron HCl (Zofran Inj) 4 mg Q6H PRN IV 06/25/17 14:45 07/25/17 14:44 Multi-Ingredient Ointment (Eucerin Unscented Cr) 1 appln BID EXT 06/25/17 21:00 07/25/17 20:59 07/05/17 21:49 1 APPLN Metolazone (Zaroxolyn Tab) 5 mg TuT@0830 PO 06/27/17 08:30 07/27/17 08:29 Future Hold 06/27/17 08:24 5 MG Spironolactone (Aldactone Tab) 25 mg DAILY PO 06/26/17 09:00 07/26/17 08:59 Future Hold 06/29/17 08:45 25 MG Insulin Aspart (novoLOG ASPART) SLIDING SCALE If C... ACHS SC 06/25/17 16:30 07/25/17 16:29 07/05/17 09:11 5 UNITS Glucose (Glucose 40% Gel) 15-30 GRAMS 15 GRAMS... UD PRN PO 06/25/17 15:30 07/25/17 15:29 Glucose (Glucose Chew Tab) 4-8 Tablets 4 Tabl... UD PRN PO 06/25/17 15:30 07/25/17 15:29 Dextrose (Dextrose 50% 50ML Syringe) 25-50ML OF 50% DW IV FOR... UD PRN IV 06/25/17 15:30 07/25/17 15:29 Glucagon (Glucagon Inj) 1 mg UD PRN SQ 06/25/17 15:30 07/25/17 15:29 Heparin Sodium (Porcine) (Heparin Sq 5000 Unit/0.5ml) 5,000 unit Q8 SQ 06/25/17 22:00 07/25/17 21:59 Daptomycin 650 mg/ Syringe 13 ml @ 6.5 mls/min DAILY@0800 IV 06/26/17 08:00 07/10/17 07:59 07/06/17 09:24 6.5 MLS/MIN Zolpidem Tartrate (Ambien Tab) 5 mg HS PRN PO 06/26/17 21:00 07/25/17 20:59 06/27/17 22:48 5 MG Miconazole Nitrate (Desenex Powder) 1 appln PRN PRN EXT 06/27/17 23:15 07/27/17 23:14 Menthol (Nice Marko) 1 marko PRN PRN PO 06/28/17 14:30 07/28/17 14:29 06/28/17 14:30 1 MARKO Insulin Glargine (Lantus Solostar Pen) 15 units HS SC 06/28/17 21:00 07/28/17 20:59 07/05/17 21:52 15 UNITS Ferrous Sulfate (Feosol Tab) 325 mg BIDM PO 06/29/17 09:15 07/29/17 09:14 Bumetanide (Bumex Tab) 1 mg BID@0900,1930 PO 06/29/17 19:30 07/29/17 19:29 Future Hold 06/29/17 20:13 1 MG Glimepiride (Amaryl Tab) 2 mg QAM PO 07/01/17 09:00 07/31/17 08:59 07/06/17 09:26 2 MG Heparin Sodium (Porcine) (Heparin 10 Unit/ ml 5 ml Flush) 5 ml PRN PRN FLUSH 06/30/17 19:00 07/30/17 18:59 07/06/17 09:26 5 ML Bumetanide (Bumex Tab) 1 mg BID17 PO 07/03/17 09:00 08/02/17 08:59 07/06/17 19:04 1 MG Oxycodone HCl (Roxicodone Immediate Rel Tab) 5 mg Q6H PRN PO 07/05/17 01:45 07/09/17 14:44 07/05/17 21:59 5 MG Ergocalciferol (Vitamin D Cap) 50,000 interunit Fr@0900 PO 07/05/17 09:00 08/04/17 08:59 07/05/17 09:12 50,000 INTERUNIT Fluconazole (Diflucan Tab) 100 mg QAM PO 07/06/17 09:00 07/16/17 08:59 07/06/17 09:25 100 MG Iron Sucrose 100 mg/Sodium Chloride 105 ml @ 420 mls/hr DAILY IV 07/07/17 09:00 08/06/17 08:59 Objective Vital Signs Date Time Temp Pulse Resp B/P (MAP) Pulse Ox O2 Delivery O2 Flow Rate FiO2 07/06/17 16:15 37.0 98 18 116/69 (85) 95 Room Air 07/06/17 16:00 Nasal Cannula 2.0 07/06/17 08:00 Nasal Cannula 2.0 07/06/17 07:08 36.8 91 20 112/74 (87) 98 Nasal Cannula 2.0 07/06/17 00:00 Nasal Cannula 3.0 07/05/17 23:28 37.0 99 18 124/63 (83) 95 Nasal Cannula 3.0 Physical Exam General Appearance: WD/WN, no apparent distress, + obese Eyes: normal inspection, EOMI, sclerae normal ENT: normal ENT inspection, pharynx normal Neck: supple, no adenopathy, thyroid normal, trachea midline Respiratory/Chest: chest non-tender, lungs clear, normal breath sounds, no respiratory distress Cardiovascular: regular rate, rhythm, no gallop, no murmur Abdomen: normal bowel sounds, non tender, soft, no organomegaly Extremities: no calf tenderness, normal capillary refill Neurologic/Psychiatric: alert, oriented x 3 Skin: normal color, no rash, + pertinent finding ( Dressing intact right leg and foot) Lymphatic: no adenopathy Laboratory Results Last 24 Hours Test 07/05/17 20:01 07/06/17 07:22 07/06/17 11:21 Bedside Glucose 199 mg/dl 122 mg/dl 246 mg/dl Assessment and Plan 57-year-old female with right leg heel ulcerations with MRSA, being treated with daptomycin. Ceftriaxone appropriate for urinary tract infection with E coli. Would give 5 days of ceftriaxone, will likely require more prolonged course of daptomycin,In the range of 6 weeks.. Will follow.
[2017-07-06] MEDS: INSULIN GLARGINE SOLOSTAR 100 UNITS/ML 3 ML PEN SC SCH (21:22)
--- NOTE | 2017-07-06 23:31 | Progress Note ---
Subjective Date of Service: Jul 06, 2017. Subjective Pt evaluation today including: conversation w/ patient, physical exam, lab review, review of inpatient medication list Pain: heels PO Intake: adequate Voiding: rodriguez catheter in place no new issues discussed plans for discharge, possibly looking into other facilities Problem List Medical Problems: (1) Acute renal disease Status: Acute (2) Acute renal failure Status: Acute (3) ELIZABETH (acute kidney injury) Status: Acute (4) Cellulitis Status: Acute (5) Cellulitis of both lower extremities Status: Acute (6) CHF (congestive heart failure) Status: Acute (7) CHF (congestive heart failure) Status: Acute (8) Dehydration Status: Acute (9) Fluid overload Status: Acute (10) Hypoxia Status: Acute (11) MRSA (methicillin resistant Staphylococcus aureus) infection Status: Chronic (12) Pickwickian syndrome Status: Acute (13) Pneumonia Status: Acute (14) Respiratory failure Status: Acute (15) Sacral decubitus ulcer, stage III Status: Acute (16) UTI (urinary tract infection) Status: Acute Review of Systems Musculoskeletal: + joint pain Neurologic: + weakness All Other Systems: Reviewed and Negative Medications Current Inpatient Medications Medications (Trade) Dose Ordered Sig/Bruno Route Start Time Stop Time Status Last Admin Dose Admin Acetaminophen (Tylenol Tab) 650 mg Q4H PRN PO 06/25/17 14:45 07/25/17 14:44 07/06/17 19:05 650 MG Magnesium Hydroxide (Milk Of Magnesia Susp) 30 ml Q6H PRN PO 06/25/17 14:45 07/25/17 14:44 Polyethylene (Miralax Powder Packet) 17 gm DAILY PRN PO 06/25/17 14:45 07/25/17 14:44 Ondansetron HCl (Zofran Inj) 4 mg Q6H PRN IV 06/25/17 14:45 07/25/17 14:44 Multi-Ingredient Ointment (Eucerin Unscented Cr) 1 appln BID EXT 06/25/17 21:00 07/25/17 20:59 07/05/17 21:49 1 APPLN Metolazone (Zaroxolyn Tab) 5 mg TuTh@0830 PO 06/27/17 08:30 07/27/17 08:29 Future Hold 06/27/17 08:24 5 MG Spironolactone (Aldactone Tab) 25 mg DAILY PO 06/26/17 09:00 07/26/17 08:59 Future Hold 06/29/17 08:45 25 MG Insulin Aspart (novoLOG ASPART) SLIDING SCALE If C... ACHS SC 06/25/17 16:30 07/25/17 16:29 07/06/17 21:22 5 UNITS Glucose (Glucose 40% Gel) 15-30 GRAMS 15 GRAMS... UD PRN PO 06/25/17 15:30 07/25/17 15:29 Glucose (Glucose Chew Tab) 4-8 Tablets 4 Tabl... UD PRN PO 06/25/17 15:30 07/25/17 15:29 Dextrose (Dextrose 50% 50ML Syringe) 25-50ML OF 50% DW IV FOR... UD PRN IV 06/25/17 15:30 07/25/17 15:29 Glucagon (Glucagon Inj) 1 mg UD PRN SQ 06/25/17 15:30 07/25/17 15:29 Heparin Sodium (Porcine) (Heparin Sq 5000 Unit/0.5ml) 5,000 unit Q8 SQ 06/25/17 22:00 07/25/17 21:59 Daptomycin 650 mg/ Syringe 13 ml @ 6.5 mls/min DAILY@0800 IV 06/26/17 08:00 07/10/17 07:59 07/06/17 09:24 6.5 MLS/MIN Zolpidem Tartrate (Ambien Tab) 5 mg HS PRN PO 06/26/17 21:00 07/25/17 20:59 06/27/17 22:48 5 MG Miconazole Nitrate (Desenex Powder) 1 appln PRN PRN EXT 06/27/17 23:15 07/27/17 23:14 Menthol (Nice Umberto) 1 umberto PRN PRN PO 06/28/17 14:30 07/28/17 14:29 06/28/17 14:30 1 UMBERTO Insulin Glargine (Lantus Solostar Pen) 15 units HS SC 06/28/17 21:00 07/28/17 20:59 07/06/17 21:22 15 UNITS Ferrous Sulfate (Feosol Tab) 325 mg BIDM PO 06/29/17 09:15 07/29/17 09:14 Bumetanide (Bumex Tab) 1 mg BID@0900,1930 PO 06/29/17 19:30 07/29/17 19:29 Future Hold 06/29/17 20:13 1 MG Glimepiride (Amaryl Tab) 2 mg QAM PO 07/01/17 09:00 07/31/17 08:59 07/06/17 09:26 2 MG Heparin Sodium (Porcine) (Heparin 10 Unit/ ml 5 ml Flush) 5 ml PRN PRN FLUSH 06/30/17 19:00 07/30/17 18:59 07/06/17 09:26 5 ML Bumetanide (Bumex Tab) 1 mg BID17 PO 07/03/17 09:00 08/02/17 08:59 07/06/17 19:04 1 MG Oxycodone HCl (Roxicodone Immediate Rel Tab) 5 mg Q6H PRN PO 07/05/17 01:45 07/09/17 14:44 07/05/17 21:59 5 MG Ergocalciferol (Vitamin D Cap) 50,000 interunit Fr@0900 PO 07/05/17 09:00 08/04/17 08:59 07/05/17 09:12 50,000 INTERUNIT Fluconazole (Diflucan Tab) 100 mg QAM PO 07/06/17 09:00 07/16/17 08:59 07/06/17 09:25 100 MG Iron Sucrose 100 mg/Sodium Chloride 105 ml @ 420 mls/hr DAILY IV 07/07/17 09:00 08/06/17 08:59 Objective Vital Signs Date Time Temp Pulse Resp B/P (MAP) Pulse Ox O2 Delivery O2 Flow Rate FiO2 07/06/17 20:00 Nasal Cannula 3.0 07/06/17 16:15 37.0 98 18 116/69 (85) 95 Room Air 07/06/17 16:00 Nasal Cannula 2.0 07/06/17 08:00 Nasal Cannula 2.0 07/06/17 07:08 36.8 91 20 112/74 (87) 98 Nasal Cannula 2.0 07/06/17 00:00 Nasal Cannula 3.0 07/05/17 23:28 37.0 99 18 124/63 (83) 95 Nasal Cannula 3.0 Physical Exam General Appearance: no apparent distress, + obese Eyes: normal inspection, EOMI, sclerae normal ENT: normal ENT inspection, hearing grossly normal, pharynx normal Neck: supple, no adenopathy, no JVD, trachea midline Respiratory/Chest: chest non-tender, lungs clear, normal breath sounds, no respiratory distress, no accessory muscle use Cardiovascular: regular rate, rhythm, no edema, no gallop, no JVD, no murmur Abdomen: normal bowel sounds, non tender, soft, no organomegaly Extremities: no pedal edema, no calf tenderness, pelvis stable, + inflammation , + slow capillary refill, + swelling 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 right heel ulceration with superimposed infection - continue daptomycin for MRSA from culture. Day #9 of such. PICC placed on 06/30, will need several weeks of Daptomycin, follow up with Dr. Brown follow with wound clinic, right heel excisional debridement performed on 06/28 continues to have adequate pain control IV Daptomycin could be difficult for placement but there are no other options currently 2. complicated e. coli UTI due to chronic rodriguez usage - completed 5 days of Rocephin, no further treatment needed 3. acute/chronic right-sided CHF/diastolic CHF - acute component resolved. resume Bumex BID on 07/03 will stop Aldactone and Zaroxolyn 4. Stage IV CKD due to DM appreciate nephrology consultation patient needs to establish care with manager utilization management, will likely need HD in the future Vitamin D low and PTH high discussed with Dr. Nava, will need Venofer daily while here may need Procrit if Hb < 10 and transferrin % > 20 5. T2DM, uncontrolled - multiple lengthy discussions held with patient about importance of glycemic control to help promote wound healing, etc. Encouraged basal-bolus insulin. She agreed to the lantus, refusing Novolog and ACHS sugars despite medical advice Amaryl resumed because patient was adamant about using, warned against problems with renal function, she will continue to use on discharge no issues with hypoglycemia, sugars generally high 100's to mid 200's 6. DVT proph - heparin ordered, but patient refusing. she was warned about high risk for DVT due to immobility, still refusing 7. stage IV sacral decubitus ulcer - pt refusing to have this area examined by staff. 8. 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 needs to exchanged prior to discharge. 9. COPD with chronic hypoxic respiratory failure - stable. 10. hyponatremia - due to CKD, diuresis - resolved. 11. iron def anemia, anemia of CKD- appears chronic x 1-2 years. refusing PO iron. explained importance of such. heme occult negative continue Venofer daily while admitted may need ProCrit difficult social situation, cannot go home with home health due to no agencies being willing to work with her cannot go to [facility] or [place] because she has outstanding bills discussed [facility], patient will need to consider this cannot go to [facility] due to cost of Daptomycin patient wants to discuss possibility of going home and she can administer Daptomycin, take transport to wound clinic for dressing changes Continued [facility] stay due to: multiple IV medications needed Discharge planning: home with home health, home with IV medication
[2017-07-06 23:33] VITALS: BP 137/76; PULSE 108; TEMP 36.7; O2SAT 91
[2017-07-07] MEDS: OXYCODONE HCL IR 5 MG TAB (IMMEDIATE RELEASE) PO PRN ×2 (02:05→23:57)
[2017-07-07 05:53] LABS: HEMATOCRIT 28.8 % (37-47); HEMOGLOBIN 8.2 g/dL (12.0-16.0)
[2017-07-07] MEDS: HEPARIN SOD 5000 UNIT/0.5 ML CARP SQ SCH ×3 (06:00→20:27)
[2017-07-07 06:20] LABS: CALCIUM 9.2 mg/dl (8.5-10.1); CREATININE 2.06 mg/dl (0.60-1.20); POTASSIUM 4.7 mmol/L (3.5-5.1)
[2017-07-07 06:21] LABS: PHOSPHORUS 4.5 mg/dl (2.5-4.9)
[2017-07-07 07:02] VITALS: BP 124/79; PULSE 100; TEMP 36.8; O2SAT 97
[2017-07-07] MEDS: INSULIN ASPART 100 UNITS/ML 3 ML PEN SC SCH ×4 (08:49→20:27)
[2017-07-07] MEDS: DAPTOmycin IV 650 MG in SYRINGE 0 ML IV SCH (08:49)
[2017-07-07] MEDS: EUCERIN CR 120 GM JAR EXT SCH ×2 (08:50→20:27)
[2017-07-07] MEDS: BUMETANIDE 1 MG TAB PO SCH ×2 (08:50→19:31)
[2017-07-07] MEDS: ACETAMINOPHEN 325 MG TAB PO PRN ×2 (08:50→20:25)
[2017-07-07] MEDS: GLIMEPIRIDE 2 MG TAB PO SCH (08:50)
[2017-07-07] MEDS: FERROUS SULFATE 325 MG TAB PO SCH ×2 (08:50→17:46)
[2017-07-07] MEDS: IRON SUCROSE INJ 100 MG in SODIUM CHLORIDE 0.9% 100ML 100 ML IV SCH (08:50)
[2017-07-07] MEDS: FLUCONAZOLE 100 MG TAB PO SCH (08:51)
[2017-07-07 14:41] VITALS: BP 112/72; PULSE 85; TEMP 37.3; O2SAT 100
[2017-07-07] MEDS: INSULIN GLARGINE SOLOSTAR 100 UNITS/ML 3 ML PEN SC SCH (20:26)
--- NOTE | 2017-07-07 22:50 | Progress Note ---
Subjective Date of Service: Jul 07, 2017. Subjective Pt evaluation today including: conversation w/ patient, physical exam, lab review, review of inpatient medication list Pain: heels PO Intake: adequate Voiding: rodriguez catheter in place no new issues patient anxious to talk with CM tomorrow, call SNF, try to determine best plan eating well reviewed labs, Cr and Hb stable Problem List Medical Problems: (1) Acute renal disease Status: Acute (2) Acute renal failure Status: Acute (3) ELIZABETH (acute kidney injury) Status: Acute (4) Cellulitis Status: Acute (5) Cellulitis of both lower extremities Status: Acute (6) CHF (congestive heart failure) Status: Acute (7) CHF (congestive heart failure) Status: Acute (8) Dehydration Status: Acute (9) Fluid overload Status: Acute (10) Hypoxia Status: Acute (11) MRSA (methicillin resistant Staphylococcus aureus) infection Status: Chronic (12) Pickwickian syndrome Status: Acute (13) Pneumonia Status: Acute (14) Respiratory failure Status: Acute (15) Sacral decubitus ulcer, stage III Status: Acute (16) UTI (urinary tract infection) Status: Acute Review of Systems Constitutional: + weakness Musculoskeletal: + joint pain (heels) All Other Systems: Reviewed and Negative Medications Current Inpatient Medications Medications (Trade) Dose Ordered Sig/Bruno Route Start Time Stop Time Status Last Admin Dose Admin Acetaminophen (Tylenol Tab) 650 mg Q4H PRN PO 06/25/17 14:45 07/25/17 14:44 07/07/17 20:25 650 MG Magnesium Hydroxide (Milk Of Magnesia Susp) 30 ml Q6H PRN PO 06/25/17 14:45 07/25/17 14:44 Polyethylene (Miralax Powder Packet) 17 gm DAILY PRN PO 06/25/17 14:45 07/25/17 14:44 Ondansetron HCl (Zofran Inj) 4 mg Q6H PRN IV 06/25/17 14:45 07/25/17 14:44 Multi-Ingredient Ointment (Eucerin Unscented Cr) 1 appln BID EXT 06/25/17 21:00 07/25/17 20:59 07/05/17 21:49 1 APPLN Metolazone (Zaroxolyn Tab) 5 mg TuTh@0830 PO 06/27/17 08:30 07/27/17 08:29 Future Hold 06/27/17 08:24 5 MG Spironolactone (Aldactone Tab) 25 mg DAILY PO 06/26/17 09:00 07/26/17 08:59 Future Hold 06/29/17 08:45 25 MG Insulin Aspart (novoLOG ASPART) SLIDING SCALE If C... ACHS SC 06/25/17 16:30 07/25/17 16:29 07/06/17 21:22 5 UNITS Glucose (Glucose 40% Gel) 15-30 GRAMS 15 GRAMS... UD PRN PO 06/25/17 15:30 07/25/17 15:29 Glucose (Glucose Chew Tab) 4-8 Tablets 4 Tabl... UD PRN PO 06/25/17 15:30 07/25/17 15:29 Dextrose (Dextrose 50% 50ML Syringe) 25-50ML OF 50% DW IV FOR... UD PRN IV 06/25/17 15:30 07/25/17 15:29 Glucagon (Glucagon Inj) 1 mg UD PRN SQ 06/25/17 15:30 07/25/17 15:29 Heparin Sodium (Porcine) (Heparin Sq 5000 Unit/0.5ml) 5,000 unit Q8 SQ 06/25/17 22:00 07/25/17 21:59 Daptomycin 650 mg/ Syringe 13 ml @ 6.5 mls/min DAILY@0800 IV 06/26/17 08:00 07/10/17 07:59 07/07/17 08:49 6.5 MLS/MIN Zolpidem Tartrate (Ambien Tab) 5 mg HS PRN PO 06/26/17 21:00 07/25/17 20:59 06/27/17 22:48 5 MG Miconazole Nitrate (Desenex Powder) 1 appln PRN PRN EXT 06/27/17 23:15 07/27/17 23:14 Menthol (Nice Umberto) 1 umberto PRN PRN PO 06/28/17 14:30 07/28/17 14:29 06/28/17 14:30 1 UMBERTO Insulin Glargine (Lantus Solostar Pen) 15 units HS SC 06/28/17 21:00 07/28/17 20:59 07/07/17 20:26 15 UNITS Ferrous Sulfate (Feosol Tab) 325 mg BIDM PO 06/29/17 09:15 07/29/17 09:14 Bumetanide (Bumex Tab) 1 mg BID@0900,1930 PO 06/29/17 19:30 07/29/17 19:29 Future Hold 06/29/17 20:13 1 MG Glimepiride (Amaryl Tab) 2 mg QAM PO 07/01/17 09:00 07/31/17 08:59 07/07/17 08:50 2 MG Heparin Sodium (Porcine) (Heparin 10 Unit/ ml 5 ml Flush) 5 ml PRN PRN FLUSH 06/30/17 19:00 07/30/17 18:59 07/07/17 05:31 5 ML Bumetanide (Bumex Tab) 1 mg BID17 PO 07/03/17 09:00 08/02/17 08:59 07/07/17 19:31 1 MG Oxycodone HCl (Roxicodone Immediate Rel Tab) 5 mg Q6H PRN PO 07/05/17 01:45 07/09/17 14:44 07/07/17 02:05 5 MG Ergocalciferol (Vitamin D Cap) 50,000 interunit Fr@0900 PO 07/05/17 09:00 08/04/17 08:59 07/05/17 09:12 50,000 INTERUNIT Fluconazole (Diflucan Tab) 100 mg QAM PO 07/06/17 09:00 07/16/17 08:59 07/07/17 08:51 100 MG Iron Sucrose 100 mg/Sodium Chloride 105 ml @ 420 mls/hr DAILY IV 07/07/17 09:00 08/06/17 08:59 07/07/17 08:50 420 MLS/HR Objective Vital Signs Date Time Temp Pulse Resp B/P (MAP) Pulse Ox O2 Delivery O2 Flow Rate FiO2 07/07/17 16:00 Nasal Cannula 3.0 07/07/17 14:41 37.3 85 18 112/72 (85) 100 Nasal Cannula 3.0 07/07/17 08:00 Nasal Cannula 3.0 07/07/17 07:02 36.8 100 18 124/79 (94) 97 Nasal Cannula 3.0 07/07/17 00:00 Nasal Cannula 3.0 07/06/17 23:33 36.7 108 18 137/76 (96) 91 Nasal Cannula 3.0 Physical Exam General Appearance: no apparent distress, + obese Respiratory/Chest: chest non-tender, lungs clear, normal breath sounds, no respiratory distress, no accessory muscle use Cardiovascular: regular rate, rhythm, no edema, no gallop, no JVD, no murmur Abdomen: normal bowel sounds, non tender, soft, no organomegaly Extremities: no pedal edema, no calf tenderness, pelvis stable, + inflammation , + slow capillary refill, + swelling Neurologic/Psychiatric: 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, alert, normal mood/affect, oriented x 3, + motor weakness Skin: + pertinent finding (heel and sacral ulcers) Laboratory Results Last 24 Hours Test 07/07/17 05:33 07/07/17 07:32 07/07/17 11:21 07/07/17 16:19 Hemoglobin 8.2 g/dL Hematocrit 28.8 % Sodium Level 140 mmol/L Potassium Level 4.7 mmol/L Chloride Level 100 mmol/L Carbon Dioxide Level 32 mmol/L Anion Gap 8.0 mmol/L Blood Urea Nitrogen 97 mg/dl Creatinine 2.06 mg/dl Est Creatinine Clear Calc Drug Dose 36.6 ml/min Estimated GFR () 29.8 Estimated GFR (Non- 25.7 BUN/Creatinine Ratio 46.8 Random Glucose 135 mg/dl Calcium Level 9.2 mg/dl Phosphorus Level 4.5 mg/dl Magnesium Level 1.9 mg/dl Bedside Glucose 155 mg/dl 156 mg/dl 173 mg/dl Assessment and Plan 57yo female - 1. right heel ulceration with superimposed infection - continue daptomycin for MRSA from culture. Day #9 of such. PICC placed on 06/30, will need several weeks of Daptomycin, follow up with Dr. Brown follow with wound clinic, right heel excisional debridement performed on 06/28 continues to have adequate pain control IV Daptomycin could be difficult for placement but there are no other options currently Dr. Brown recommends 6 weeks total 2. complicated e. coli UTI due to chronic rodriguez usage - completed 5 days of Rocephin, no further treatment needed 3. acute/chronic right-sided CHF/diastolic CHF - acute component resolved. resume Bumex BID on 11/15 will stop Aldactone and Zaroxolyn patient has maintained euvolemia on just the Bumex, would continue this as sole diuretic on discharge 4. Stage IV CKD due to DM appreciate nephrology consultation patient needs to establish care with ndt inspector, will likely need HD in the future Vitamin D low and PTH high discussed with Dr. Nava, will need Venofer daily while here may need Procrit if Hb < 10 and transferrin % > 20 Cr stable at 2.0 for several days, continue Bumex BID dosing 5. T2DM, uncontrolled - multiple lengthy discussions held with patient about importance of glycemic control to help promote wound healing, etc. Encouraged basal-bolus insulin. She agreed to the lantus, refusing Novolog and ACHS sugars despite medical advice Amaryl resumed because patient was adamant about using, warned against problems with renal function, she will continue to use on discharge no issues with hypoglycemia, sugars generally high 100's to mid 200's 6. DVT proph - heparin ordered, but patient refusing. she was warned about high risk for DVT due to immobility, still refusing 7. stage IV sacral decubitus ulcer - pt refusing to have this area examined by staff. 8. 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 needs to exchanged prior to discharge. 9. COPD with chronic hypoxic respiratory failure - stable. 10. hyponatremia - due to CKD, diuresis - resolved. 11. iron def anemia, anemia of CKD- appears chronic x 1-2 years. refusing PO iron. explained importance of such. heme occult negative continue Venofer daily while admitted may need ProCrit 12. Candidiasis: Diflucan 100mg PO daily x 7 days total, today is day 2 difficult social situation, cannot go home with home health due to no agencies being willing to work with her cannot go to [facility] or [place] because she has outstanding bills discussed [facility], patient will need to consider this cannot go to [facility] due to cost of Daptomycin patient wants to discuss possibility of going home and she can administer Daptomycin, take transport to wound clinic for dressing changes strongly encouraged her to consider referral to [facility] as this would be best option and likely the only option, she will consider talk with CM tomorrow Continued [facility] stay due to: multiple IV medications needed Discharge planning: home with home health, home with IV medication
[2017-07-07 23:40] VITALS: BP 117/75; PULSE 105; TEMP 36.4; O2SAT 90
[2017-07-08] MEDS: ACETAMINOPHEN 325 MG TAB PO PRN ×4 (04:09→19:46)
[2017-07-08] MEDS: HEPARIN SOD 5000 UNIT/0.5 ML CARP SQ SCH ×3 (05:33→20:51)
[2017-07-08 07:38] VITALS: BP 108/69; PULSE 97; TEMP 36.6; O2SAT 93
[2017-07-08] MEDS: EUCERIN CR 120 GM JAR EXT SCH ×2 (09:00→20:49)
[2017-07-08] MEDS: IRON SUCROSE INJ 100 MG in SODIUM CHLORIDE 0.9% 100ML 100 ML IV SCH (09:23)
[2017-07-08] MEDS: INSULIN ASPART 100 UNITS/ML 3 ML PEN SC SCH ×4 (09:24→20:49)
[2017-07-08] MEDS: DAPTOmycin IV 650 MG in SYRINGE 0 ML IV SCH (09:24)
[2017-07-08] MEDS: FLUCONAZOLE 100 MG TAB PO SCH (09:25)
[2017-07-08] MEDS: FERROUS SULFATE 325 MG TAB PO SCH ×2 (09:25→16:18)
[2017-07-08] MEDS: BUMETANIDE 1 MG TAB PO SCH ×2 (09:25→18:47)
[2017-07-08] MEDS: GLIMEPIRIDE 2 MG TAB PO SCH (09:26)
[2017-07-08 14:24] VITALS: BP 114/71; PULSE 100; TEMP 37.3; O2SAT 90
--- NOTE | 2017-07-08 15:30 | Progress Note ---
Subjective Date of Service: Jul 08, 2017. Subjective Pt evaluation today including: conversation w/ patient, physical exam, chart review, lab review 57 yo female for multiple lower extremity skin lesions with superimposed infection. Patient reports doing well. Patient denies any change of her symptoms yesterday. Patient states that she is here for placement. Problem List Medical Problems: (1) Acute renal disease Status: Acute (2) Acute renal failure Status: Acute (3) ELIZABETH (acute kidney injury) Status: Acute (4) Cellulitis Status: Acute (5) Cellulitis of both lower extremities Status: Acute (6) CHF (congestive heart failure) Status: Acute (7) CHF (congestive heart failure) Status: Acute (8) Dehydration Status: Acute (9) Fluid overload Status: Acute (10) Hypoxia Status: Acute (11) MRSA (methicillin resistant Staphylococcus aureus) infection Status: Chronic (12) Pickwickian syndrome Status: Acute (13) Pneumonia Status: Acute (14) Respiratory failure Status: Acute (15) Sacral decubitus ulcer, stage III Status: Acute (16) UTI (urinary tract infection) Status: Acute Review of Systems Constitutional: No fever, No chills ENT: No hearing loss Respiratory: No cough, No sputum Cardiac: No chest pain, No orthopnea Abdomen: No pain, No nausea Neurologic: No memory loss, No paralysis Heme: No abnormal bleeding/bruising Endo: No fatigue Skin: No rash, No itch All Other Systems: Reviewed and Negative Medications Current Inpatient Medications Medications (Trade) Dose Ordered Sig/Bruno Route Start Time Stop Time Status Last Admin Dose Admin Acetaminophen (Tylenol Tab) 650 mg Q4H PRN PO 06/25/17 14:45 07/25/17 14:44 07/08/17 19:46 650 MG Magnesium Hydroxide (Milk Of Magnesia Susp) 30 ml Q6H PRN PO 06/25/17 14:45 07/25/17 14:44 Polyethylene (Miralax Powder Packet) 17 gm DAILY PRN PO 06/25/17 14:45 07/25/17 14:44 Ondansetron HCl (Zofran Inj) 4 mg Q6H PRN IV 06/25/17 14:45 07/25/17 14:44 Multi-Ingredient Ointment (Eucerin Unscented Cr) 1 appln BID EXT 06/25/17 21:00 07/25/17 20:59 07/05/17 21:49 1 APPLN Metolazone (Zaroxolyn Tab) 5 mg TuTh@0830 PO 06/27/17 08:30 07/27/17 08:29 Future Hold 06/27/17 08:24 5 MG Spironolactone (Aldactone Tab) 25 mg DAILY PO 06/26/17 09:00 07/26/17 08:59 Future Hold 06/29/17 08:45 25 MG Insulin Aspart (novoLOG ASPART) SLIDING SCALE If C... ACHS SC 06/25/17 16:30 07/25/17 16:29 07/06/17 21:22 5 UNITS Glucose (Glucose 40% Gel) 15-30 GRAMS 15 GRAMS... UD PRN PO 06/25/17 15:30 07/25/17 15:29 Glucose (Glucose Chew Tab) 4-8 Tablets 4 Tabl... UD PRN PO 06/25/17 15:30 07/25/17 15:29 Dextrose (Dextrose 50% 50ML Syringe) 25-50ML OF 50% DW IV FOR... UD PRN IV 06/25/17 15:30 07/25/17 15:29 Glucagon (Glucagon Inj) 1 mg UD PRN SQ 06/25/17 15:30 07/25/17 15:29 Heparin Sodium (Porcine) (Heparin Sq 5000 Unit/0.5ml) 5,000 unit Q8 SQ 06/25/17 22:00 07/25/17 21:59 Daptomycin 650 mg/ Syringe 13 ml @ 6.5 mls/min DAILY@0800 IV 06/26/17 08:00 07/10/17 07:59 07/08/17 09:24 6.5 MLS/MIN Zolpidem Tartrate (Ambien Tab) 5 mg HS PRN PO 06/26/17 21:00 07/25/17 20:59 06/27/17 22:48 5 MG Miconazole Nitrate (Desenex Powder) 1 appln PRN PRN EXT 06/27/17 23:15 07/27/17 23:14 Menthol (Nice Umberto) 1 umberto PRN PRN PO 06/28/17 14:30 07/28/17 14:29 06/28/17 14:30 1 UMBERTO Insulin Glargine (Lantus Solostar Pen) 15 units HS SC 06/28/17 21:00 07/28/17 20:59 07/08/17 20:51 15 UNITS Ferrous Sulfate (Feosol Tab) 325 mg BIDM PO 06/29/17 09:15 07/29/17 09:14 Bumetanide (Bumex Tab) 1 mg BID@0900,1930 PO 06/29/17 19:30 07/29/17 19:29 Future Hold 06/29/17 20:13 1 MG Glimepiride (Amaryl Tab) 2 mg QAM PO 07/01/17 09:00 07/31/17 08:59 07/08/17 09:26 2 MG Heparin Sodium (Porcine) (Heparin 10 Unit/ ml 5 ml Flush) 5 ml PRN PRN FLUSH 06/30/17 19:00 07/30/17 18:59 07/08/17 09:24 5 ML Bumetanide (Bumex Tab) 1 mg BID17 PO 07/03/17 09:00 08/02/17 08:59 07/08/17 18:47 1 MG Oxycodone HCl (Roxicodone Immediate Rel Tab) 5 mg Q6H PRN PO 07/05/17 01:45 07/09/17 14:44 07/08/17 23:27 5 MG Ergocalciferol (Vitamin D Cap) 50,000 interunit Fr@0900 PO 07/05/17 09:00 08/04/17 08:59 07/05/17 09:12 50,000 INTERUNIT Fluconazole (Diflucan Tab) 100 mg QAM PO 07/06/17 09:00 07/16/17 08:59 07/08/17 09:25 100 MG Iron Sucrose 100 mg/Sodium Chloride 105 ml @ 420 mls/hr DAILY IV 07/07/17 09:00 08/06/17 08:59 07/08/17 09:23 420 MLS/HR Objective Vital Signs Date Time Temp Pulse Resp B/P (MAP) Pulse Ox O2 Delivery O2 Flow Rate FiO2 07/08/17 14:24 37.3 100 20 114/71 (85) 90 Nasal Cannula 2.0 07/08/17 08:00 Nasal Cannula 3.0 07/08/17 07:38 36.6 97 22 108/69 (82) 93 Nasal Cannula 2.5 07/08/17 00:00 Nasal Cannula 3.0 07/07/17 23:40 36.4 105 18 117/75 (89) 90 Nasal Cannula 3.0 07/07/17 20:00 Nasal Cannula 3.0 07/07/17 16:00 Nasal Cannula 3.0 Physical Exam Comments: General Appearance: no apparent distress, + obese Respiratory/Chest: chest non-tender, lungs clear, normal breath sounds, no respiratory distress, no accessory muscle use Cardiovascular: regular rate, rhythm, no edema, no gallop, no JVD, no murmur Abdomen: normal bowel sounds, non tender, soft, no organomegaly Extremities: no pedal edema, no calf tenderness, pelvis stable, + inflammation , + slow capillary refill, + swelling 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 right heel ulceration with superimposed infection - continue daptomycin for MRSA from culture. Day #9 of such. PICC placed on 06/30, will need several weeks of Daptomycin, follow up with Dr. Brown follow with wound clinic, right heel excisional debridement performed on 06/28 continues to have adequate pain control IV Daptomycin could be difficult for placement but there are no other options currently Dr. Brown recommends 6 weeks total 2. complicated e. coli UTI due to chronic rodriguez usage - completed 5 days of Rocephin, no further treatment needed 3. acute/chronic right-sided CHF/diastolic CHF - acute component resolved. resume Bumex BID on 07/03 will stop Aldactone and Zaroxolyn patient has maintained euvolemia on just the Bumex, would continue this as sole diuretic on discharge 4. 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 Nava, will need Venofer daily while here may need Procrit if Hb < 10 and transferrin % > 20 Cr stable at 2.0 for several days, continue Bumex BID dosing 5. T2DM, uncontrolled - multiple lengthy discussions held with patient about importance of glycemic control to help promote wound healing, etc. Encouraged basal-bolus insulin. She agreed to the lantus, refusing Novolog and ACHS sugars despite medical advice Amaryl resumed because patient was adamant about using, warned against problems with renal function, she will continue to use on discharge no issues with hypoglycemia, sugars generally high 100's to mid 200's 6. DVT proph - heparin ordered, but patient refusing. she was warned about high risk for DVT due to immobility, still refusing 7. stage IV sacral decubitus ulcer - pt refusing to have this area examined by staff. 8. 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 needs to exchanged prior to discharge. 9. COPD with chronic hypoxic respiratory failure - stable. 10. hyponatremia - due to CKD, diuresis - resolved. 11. iron def anemia, anemia of CKD- appears chronic x 1-2 years. refusing PO iron. explained importance of such. heme occult negative continue Venofer daily while admitted may need ProCrit 12. Candidiasis: Diflucan 100mg PO daily x 7 days total, today is day 2 difficult social situation, cannot go home with home health due to no agencies being willing to work with her cannot go to [facility] or [place] because she has outstanding bills discussed [facility], patient will need to consider this cannot go to [facility] due to cost of Daptomycin patient wants to discuss possibility of going home and she can administer Daptomycin, take transport to wound clinic for dressing changes Discussed with case management. Awaiting placement. It appears difficult due to her social situation. Continued [facility] stay due to: multiple IV medications needed Discharge planning: home with home health, home with IV medication
--- NOTE | 2017-07-08 17:02 | Nephrology Progress Note ---
Nephrology Progress Note Date of Service: Jul 08, 2017. Subjective seen on rounds this am at 1000. no pain except stable chronic check pain. feels edema controlled. denies n/v/change in chronic dyspnea Objective Date Time Temp Pulse Resp B/P (MAP) Pulse Ox O2 Delivery O2 Flow Rate FiO2 07/08/17 16:00 Nasal Cannula 3.0 07/08/17 14:24 37.3 100 20 114/71 (85) 90 Nasal Cannula 2.0 07/08/17 08:00 Nasal Cannula 3.0 07/08/17 07:38 36.6 97 22 108/69 (82) 93 Nasal Cannula 2.5 07/08/17 00:00 Nasal Cannula 3.0 07/07/17 23:40 36.4 105 18 117/75 (89) 90 Nasal Cannula 3.0 07/07/17 20:00 Nasal Cannula 3.0 Physical Exam: General-aaox3, obese, up in chair on 02nc Eyes-no scleral icterus ENT-mmm Neck-supple Lungs-decreased Heart-tachycardic in 90s Abdomen-+pannus, +bs Extremities-mild edema, wounds covered Neuro-clark, fluent speech -+rodriguez Current Inpatient Medications Medications (Trade) Dose Ordered Sig/Bruno Route Start Time Stop Time Status Last Admin Dose Admin Acetaminophen (Tylenol Tab) 650 mg Q4H PRN PO 06/25/17 14:45 07/25/17 14:44 07/08/17 14:36 650 MG Magnesium Hydroxide (Milk Of Magnesia Susp) 30 ml Q6H PRN PO 06/25/17 14:45 07/25/17 14:44 Polyethylene (Miralax Powder Packet) 17 gm DAILY PRN PO 06/25/17 14:45 07/25/17 14:44 Ondansetron HCl (Zofran Inj) 4 mg Q6H PRN IV 06/25/17 14:45 07/25/17 14:44 Multi-Ingredient Ointment (Eucerin Unscented Cr) 1 appln BID EXT 06/25/17 21:00 07/25/17 20:59 07/05/17 21:49 1 APPLN Metolazone (Zaroxolyn Tab) 5 mg TuTh@0830 PO 06/27/17 08:30 07/27/17 08:29 Future Hold 06/27/17 08:24 5 MG Spironolactone (Aldactone Tab) 25 mg DAILY PO 06/26/17 09:00 07/26/17 08:59 Future Hold 06/29/17 08:45 25 MG Insulin Aspart (novoLOG ASPART) SLIDING SCALE If C... ACHS SC 06/25/17 16:30 07/25/17 16:29 07/06/17 21:22 5 UNITS Glucose (Glucose 40% Gel) 15-30 GRAMS 15 GRAMS... UD PRN PO 06/25/17 15:30 07/25/17 15:29 Glucose (Glucose Chew Tab) 4-8 Tablets 4 Tabl... UD PRN PO 06/25/17 15:30 07/25/17 15:29 Dextrose (Dextrose 50% 50ML Syringe) 25-50ML OF 50% DW IV FOR... UD PRN IV 06/25/17 15:30 07/25/17 15:29 Glucagon (Glucagon Inj) 1 mg UD PRN SQ 06/25/17 15:30 07/25/17 15:29 Heparin Sodium (Porcine) (Heparin Sq 5000 Unit/0.5ml) 5,000 unit Q8 SQ 06/25/17 22:00 07/25/17 21:59 Daptomycin 650 mg/ Syringe 13 ml @ 6.5 mls/min DAILY@0800 IV 06/26/17 08:00 07/10/17 07:59 07/08/17 09:24 6.5 MLS/MIN Zolpidem Tartrate (Ambien Tab) 5 mg HS PRN PO 06/26/17 21:00 07/25/17 20:59 06/27/17 22:48 5 MG Miconazole Nitrate (Desenex Powder) 1 appln PRN PRN EXT 06/27/17 23:15 07/27/17 23:14 Menthol (Nice Umberto) 1 umberto PRN PRN PO 06/28/17 14:30 07/28/17 14:29 06/28/17 14:30 1 UMBERTO Insulin Glargine (Lantus Solostar Pen) 15 units HS SC 06/28/17 21:00 07/28/17 20:59 07/07/17 20:26 15 UNITS Ferrous Sulfate (Feosol Tab) 325 mg BIDM PO 06/29/17 09:15 07/29/17 09:14 Bumetanide (Bumex Tab) 1 mg BID@0900,1930 PO 06/29/17 19:30 07/29/17 19:29 Future Hold 06/29/17 20:13 1 MG Glimepiride (Amaryl Tab) 2 mg QAM PO 07/01/17 09:00 07/31/17 08:59 07/08/17 09:26 2 MG Heparin Sodium (Porcine) (Heparin 10 Unit/ ml 5 ml Flush) 5 ml PRN PRN FLUSH 06/30/17 19:00 07/30/17 18:59 07/08/17 09:24 5 ML Bumetanide (Bumex Tab) 1 mg BID17 PO 07/03/17 09:00 08/02/17 08:59 07/08/17 09:25 1 MG Oxycodone HCl (Roxicodone Immediate Rel Tab) 5 mg Q6H PRN PO 07/05/17 01:45 07/09/17 14:44 07/07/17 23:57 5 MG Ergocalciferol (Vitamin D Cap) 50,000 interunit Fr@0900 PO 07/05/17 09:00 08/04/17 08:59 07/05/17 09:12 50,000 INTERUNIT Fluconazole (Diflucan Tab) 100 mg QAM PO 07/06/17 09:00 07/16/17 08:59 07/08/17 09:25 100 MG Iron Sucrose 100 mg/Sodium Chloride 105 ml @ 420 mls/hr DAILY IV 07/07/17 09:00 08/06/17 08:59 07/08/17 09:23 420 MLS/HR Last 24 Hours Test 07/08/17 11:40 07/08/17 16:13 Bedside Glucose 169 mg/dl 132 mg/dl Assessment & Plan 57 yo female with ckd stage 4 in the setting of diabetes and right sided heart failure and hx of tobacco abuse in the past ckd stage 4 with proteinuria in setting of diabetes and right sided heart failure, morbid obesity requiring appropriate diuretics. volume status acceptable. creatinine baseline in low 2's; she remains at baseline on fairly low dose bumex. other diuretics on hold. Iron deficiency anemia-on oral iron and getting course of venofer. tsat 10% despite . would redose another 100mg of iv venofer today if iron sat below 20%. if tsat above 20% and ferritin above 100 and hg under 10, may be a candidate for procrit which she could discuss further with as she tries to establish with an outside peoplesoft business analyst. RONALD: vitamin d levels are low with HPTH, which is common in ckd>> now on D2 50, 000 units weekly.
[2017-07-08 19:22] VITALS: O2SAT 90
--- NOTE | 2017-07-08 20:16 | Infectious Disease Progress Nt ---
Progress Note Date of Service Jul 08, 2017. Subjective Pt evaluation today including: conversation w/ patient, physical exam, chart review, lab review, review of studies, conversation w/ siebel consultant, review of inpatient medication list offering no new complaints today. Remains afebrile. Tolerating daptomycin without apparent difficulty All Other Systems: Reviewed and Negative Medications Current Inpatient Medications Medications (Trade) Dose Ordered Sig/Bruno Route Start Time Stop Time Status Last Admin Dose Admin Acetaminophen (Tylenol Tab) 650 mg Q4H PRN PO 06/25/17 14:45 07/25/17 14:44 07/08/17 19:46 650 MG Magnesium Hydroxide (Milk Of Magnesia Susp) 30 ml Q6H PRN PO 06/25/17 14:45 07/25/17 14:44 Polyethylene (Miralax Powder Packet) 17 gm DAILY PRN PO 06/25/17 14:45 07/25/17 14:44 Ondansetron HCl (Zofran Inj) 4 mg Q6H PRN IV 06/25/17 14:45 07/25/17 14:44 Multi-Ingredient Ointment (Eucerin Unscented Cr) 1 appln BID EXT 06/25/17 21:00 07/25/17 20:59 07/05/17 21:49 1 APPLN Metolazone (Zaroxolyn Tab) 5 mg TuTh@0830 PO 06/27/17 08:30 07/27/17 08:29 Future Hold 06/27/17 08:24 5 MG Spironolactone (Aldactone Tab) 25 mg DAILY PO 06/26/17 09:00 07/26/17 08:59 Future Hold 06/29/17 08:45 25 MG Insulin Aspart (novoLOG ASPART) SLIDING SCALE If C... ACHS SC 06/25/17 16:30 07/25/17 16:29 07/06/17 21:22 5 UNITS Glucose (Glucose 40% Gel) 15-30 GRAMS 15 GRAMS... UD PRN PO 06/25/17 15:30 07/25/17 15:29 Glucose (Glucose Chew Tab) 4-8 Tablets 4 Tabl... UD PRN PO 06/25/17 15:30 07/25/17 15:29 Dextrose (Dextrose 50% 50ML Syringe) 25-50ML OF 50% DW IV FOR... UD PRN IV 06/25/17 15:30 07/25/17 15:29 Glucagon (Glucagon Inj) 1 mg UD PRN SQ 06/25/17 15:30 07/25/17 15:29 Heparin Sodium (Porcine) (Heparin Sq 5000 Unit/0.5ml) 5,000 unit Q8 SQ 06/25/17 22:00 07/25/17 21:59 Daptomycin 650 mg/ Syringe 13 ml @ 6.5 mls/min DAILY@0800 IV 06/26/17 08:00 07/10/17 07:59 07/08/17 09:24 6.5 MLS/MIN Zolpidem Tartrate (Ambien Tab) 5 mg HS PRN PO 06/26/17 21:00 07/25/17 20:59 06/27/17 22:48 5 MG Miconazole Nitrate (Desenex Powder) 1 appln PRN PRN EXT 06/27/17 23:15 07/27/17 23:14 Menthol (Nice Marko) 1 marko PRN PRN PO 06/28/17 14:30 07/28/17 14:29 06/28/17 14:30 1 MARKO Insulin Glargine (Lantus Solostar Pen) 15 units HS SC 06/28/17 21:00 07/28/17 20:59 07/07/17 20:26 15 UNITS Ferrous Sulfate (Feosol Tab) 325 mg BIDM PO 06/29/17 09:15 07/29/17 09:14 Bumetanide (Bumex Tab) 1 mg BID@0900,1930 PO 06/29/17 19:30 07/29/17 19:29 Future Hold 06/29/17 20:13 1 MG Glimepiride (Amaryl Tab) 2 mg QAM PO 07/01/17 09:00 07/31/17 08:59 07/08/17 09:26 2 MG Heparin Sodium (Porcine) (Heparin 10 Unit/ ml 5 ml Flush) 5 ml PRN PRN FLUSH 06/30/17 19:00 07/30/17 18:59 07/08/17 09:24 5 ML Bumetanide (Bumex Tab) 1 mg BID17 PO 07/03/17 09:00 08/02/17 08:59 07/08/17 18:47 1 MG Oxycodone HCl (Roxicodone Immediate Rel Tab) 5 mg Q6H PRN PO 07/05/17 01:45 07/09/17 14:44 07/07/17 23:57 5 MG Ergocalciferol (Vitamin D Cap) 50,000 interunit Fr@0900 PO 07/05/17 09:00 08/04/17 08:59 07/05/17 09:12 50,000 INTERUNIT Fluconazole (Diflucan Tab) 100 mg QAM PO 07/06/17 09:00 07/16/17 08:59 07/08/17 09:25 100 MG Iron Sucrose 100 mg/Sodium Chloride 105 ml @ 420 mls/hr DAILY IV 07/07/17 09:00 08/06/17 08:59 07/08/17 09:23 420 MLS/HR Objective Vital Signs Date Time Temp Pulse Resp B/P (MAP) Pulse Ox O2 Delivery O2 Flow Rate FiO2 07/08/17 16:00 Nasal Cannula 3.0 07/08/17 14:24 37.3 100 20 114/71 (85) 90 Nasal Cannula 2.0 07/08/17 08:00 Nasal Cannula 3.0 07/08/17 07:38 36.6 97 22 108/69 (82) 93 Nasal Cannula 2.5 07/08/17 00:00 Nasal Cannula 3.0 07/07/17 23:40 36.4 105 18 117/75 (89) 90 Nasal Cannula 3.0 Physical Exam General Appearance: WD/WN, no apparent distress, + obese Eyes: normal inspection, EOMI, sclerae normal ENT: normal ENT inspection, pharynx normal Neck: supple, no adenopathy, thyroid normal, trachea midline Respiratory/Chest: chest non-tender, lungs clear, normal breath sounds, no respiratory distress Cardiovascular: regular rate, rhythm, no gallop, no murmur Abdomen: normal bowel sounds, non tender, soft, no organomegaly Extremities: non-tender, no calf tenderness Neurologic/Psychiatric: alert, oriented x 3 Skin: normal color, no rash, + pertinent finding ( dressing intact right leg and foot) Lymphatic: no adenopathy Laboratory Results Last 24 Hours Test 07/08/17 11:40 07/08/17 16:13 Bedside Glucose 169 mg/dl 132 mg/dl Assessment and Plan 57-year-old female with right leg heel ulcerations with MRSA, being treated with daptomycin. Ceftriaxone appropriate for urinary tract infection with E coli. Would give 5 days of ceftriaxone, will likely require more prolonged course of daptomycin,In the range of 6 weeks.. Will follow.
[2017-07-08] MEDS: INSULIN GLARGINE SOLOSTAR 100 UNITS/ML 3 ML PEN SC SCH (20:51)
[2017-07-08] MEDS: OXYCODONE HCL IR 5 MG TAB (IMMEDIATE RELEASE) PO PRN (23:27)
[2017-07-08 23:42] VITALS: BP 115/76; PULSE 104; TEMP 37; O2SAT 90
[2017-07-09] MEDS: HEPARIN SOD 5000 UNIT/0.5 ML CARP SQ SCH ×3 (05:32→20:59)
[2017-07-09 07:58] VITALS: BP 128/83; PULSE 101; TEMP 36.6; O2SAT 94
[2017-07-09] MEDS: FERROUS SULFATE 325 MG TAB PO SCH ×2 (08:00→16:42)
[2017-07-09] MEDS: INSULIN ASPART 100 UNITS/ML 3 ML PEN SC SCH ×4 (08:51→21:00)
[2017-07-09] MEDS: FLUCONAZOLE 100 MG TAB PO SCH (08:52)
[2017-07-09] MEDS: BUMETANIDE 1 MG TAB PO SCH ×2 (08:52→19:02)
[2017-07-09] MEDS: GLIMEPIRIDE 2 MG TAB PO SCH (08:53)
[2017-07-09] MEDS: EUCERIN CR 120 GM JAR EXT SCH ×2 (09:00→20:58)
[2017-07-09] MEDS: DAPTOmycin IV 650 MG in SYRINGE 0 ML IV SCH (09:00)
[2017-07-09] MEDS: IRON SUCROSE INJ 100 MG in SODIUM CHLORIDE 0.9% 100ML 100 ML IV SCH (09:00)
[2017-07-09] MEDS: ACETAMINOPHEN 325 MG TAB PO PRN ×3 (09:12→21:06)
[2017-07-09 17:25] VITALS: BP 114/68; PULSE 106; TEMP 37.1; O2SAT 90
[2017-07-09] MEDS: INSULIN GLARGINE SOLOSTAR 100 UNITS/ML 3 ML PEN SC SCH (21:02)
[2017-07-09 22:17] VITALS: PULSE 104; O2SAT 91
--- NOTE | 2017-07-09 22:55 | Progress Note ---
Subjective Date of Service: Jul 09, 2017. Subjective Patient reports no significant changes. Only new complaint is that she has patches of red skin on her face, mainly on her cheeks, and chin. They are not warm, or painful as per patient. Patietn denies any nausea, vomiting, fever, chills. Problem List Medical Problems: (1) Acute renal disease Status: Acute (2) Acute renal failure Status: Acute (3) ELIZABETH (acute kidney injury) Status: Acute (4) Cellulitis Status: Acute (5) Cellulitis of both lower extremities Status: Acute (6) CHF (congestive heart failure) Status: Acute (7) CHF (congestive heart failure) Status: Acute (8) Dehydration Status: Acute (9) Fluid overload Status: Acute (10) Hypoxia Status: Acute (11) MRSA (methicillin resistant Staphylococcus aureus) infection Status: Chronic (12) Pickwickian syndrome Status: Acute (13) Pneumonia Status: Acute (14) Respiratory failure Status: Acute (15) Sacral decubitus ulcer, stage III Status: Acute (16) UTI (urinary tract infection) Status: Acute Review of Systems Constitutional: No fever, No chills Respiratory: No cough, No sputum Cardiac: No chest pain, No orthopnea Abdomen: No pain, No nausea Neurologic: No memory loss, No paralysis Heme: No abnormal bleeding/bruising Endo: No fatigue Skin: No rash, No itch All Other Systems: Reviewed and Negative Medications Current Inpatient Medications Medications (Trade) Dose Ordered Sig/Bruno Route Start Time Stop Time Status Last Admin Dose Admin Acetaminophen (Tylenol Tab) 650 mg Q4H PRN PO 06/25/17 14:45 07/25/17 14:44 07/10/17 02:31 650 MG Magnesium Hydroxide (Milk Of Magnesia Susp) 30 ml Q6H PRN PO 06/25/17 14:45 07/25/17 14:44 Polyethylene (Miralax Powder Packet) 17 gm DAILY PRN PO 06/25/17 14:45 07/25/17 14:44 Ondansetron HCl (Zofran Inj) 4 mg Q6H PRN IV 06/25/17 14:45 07/25/17 14:44 Multi-Ingredient Ointment (Eucerin Unscented Cr) 1 appln BID EXT 06/25/17 21:00 07/25/17 20:59 07/05/17 21:49 1 APPLN Metolazone (Zaroxolyn Tab) 5 mg TuTh@0830 PO 06/27/17 08:30 07/27/17 08:29 Future Hold 06/27/17 08:24 5 MG Spironolactone (Aldactone Tab) 25 mg DAILY PO 06/26/17 09:00 07/26/17 08:59 Future Hold 06/29/17 08:45 25 MG Insulin Aspart (novoLOG ASPART) SLIDING SCALE If C... ACHS SC 06/25/17 16:30 07/25/17 16:29 07/06/17 21:22 5 UNITS Glucose (Glucose 40% Gel) 15-30 GRAMS 15 GRAMS... UD PRN PO 06/25/17 15:30 07/25/17 15:29 Glucose (Glucose Chew Tab) 4-8 Tablets 4 Tabl... UD PRN PO 06/25/17 15:30 07/25/17 15:29 Dextrose (Dextrose 50% 50ML Syringe) 25-50ML OF 50% DW IV FOR... UD PRN IV 06/25/17 15:30 07/25/17 15:29 Glucagon (Glucagon Inj) 1 mg UD PRN SQ 06/25/17 15:30 07/25/17 15:29 Heparin Sodium (Porcine) (Heparin Sq 5000 Unit/0.5ml) 5,000 unit Q8 SQ 06/25/17 22:00 07/25/17 21:59 Zolpidem Tartrate (Ambien Tab) 5 mg HS PRN PO 06/26/17 21:00 07/25/17 20:59 06/27/17 22:48 5 MG Miconazole Nitrate (Desenex Powder) 1 appln PRN PRN EXT 06/27/17 23:15 07/27/17 23:14 Menthol (Nice Umberto) 1 umberto PRN PRN PO 06/28/17 14:30 07/28/17 14:29 06/28/17 14:30 1 UMBERTO Insulin Glargine (Lantus Solostar Pen) 15 units HS SC 06/28/17 21:00 07/28/17 20:59 07/09/17 21:02 15 UNITS Ferrous Sulfate (Feosol Tab) 325 mg BIDM PO 06/29/17 09:15 07/29/17 09:14 Bumetanide (Bumex Tab) 1 mg BID@0900,1930 PO 06/29/17 19:30 07/29/17 19:29 Future Hold 06/29/17 20:13 1 MG Glimepiride (Amaryl Tab) 2 mg QAM PO 07/01/17 09:00 07/31/17 08:59 07/10/17 07:55 2 MG Heparin Sodium (Porcine) (Heparin 10 Unit/ ml 5 ml Flush) 5 ml PRN PRN FLUSH 06/30/17 19:00 07/30/17 18:59 07/08/17 09:24 5 ML Bumetanide (Bumex Tab) 1 mg BID17 PO 07/03/17 09:00 08/02/17 08:59 07/10/17 07:55 1 MG Ergocalciferol (Vitamin D Cap) 50,000 interunit Fr@0900 PO 07/05/17 09:00 08/04/17 08:59 07/05/17 09:12 50,000 INTERUNIT Fluconazole (Diflucan Tab) 100 mg QAM PO 07/06/17 09:00 07/16/17 08:59 07/10/17 07:55 100 MG Iron Sucrose 100 mg/Sodium Chloride 105 ml @ 420 mls/hr DAILY IV 07/07/17 09:00 08/06/17 08:59 07/10/17 07:50 420 MLS/HR Oxycodone HCl (Roxicodone Immediate Rel Tab) 5 mg Q6H PRN PO 07/10/17 03:00 07/24/17 02:59 07/10/17 03:22 5 MG Objective Vital Signs Date Time Temp Pulse Resp B/P (MAP) Pulse Ox O2 Delivery O2 Flow Rate FiO2 07/09/17 22:17 104 91 3.0 07/09/17 17:25 37.1 106 20 114/68 (83) 90 Nasal Cannula 3.0 07/09/17 16:00 Nasal Cannula 3.0 07/09/17 09:29 Nasal Cannula 3.0 07/09/17 07:58 36.6 101 20 128/83 (98) 94 Room Air 07/09/17 00:00 Nasal Cannula 3.0 07/08/17 23:42 37.0 104 18 115/76 (89) 90 Nasal Cannula 3.0 Physical Exam Comments: General Appearance: no apparent distress, + obese Respiratory/Chest: chest non-tender, lungs clear, normal breath sounds, no respiratory distress, no accessory muscle use Cardiovascular: regular rate, rhythm, no edema, no gallop, no JVD, no murmur Abdomen: normal bowel sounds, non tender, soft, no organomegaly Extremities: no pedal edema, no calf tenderness, pelvis stable, + inflammation , + slow capillary refill, + swelling Neurologic/Psychiatric: 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 not warm, not tender. no drainage noted. Laboratory Results Last 24 Hours Test 07/09/17 07:41 07/09/17 11:40 07/09/17 16:10 07/09/17 20:27 Bedside Glucose 141 mg/dl 149 mg/dl 147 mg/dl 192 mg/dl Assessment and Plan 57yo female - 1. right heel ulceration with superimposed infection - continue daptomycin for MRSA from culture. Day #9 of such. PICC placed on 06/30, will need several weeks of Daptomycin, follow up with Dr. Brown follow with wound clinic, right heel excisional debridement performed on 06/28 continues to have adequate pain control IV Daptomycin could be difficult for placement but there are no other options currently Dr. Brown recommends 6 weeks total 2. complicated e. coli UTI due to chronic rodriguez usage - completed 5 days of Rocephin, no further treatment needed 3. acute/chronic right-sided CHF/diastolic CHF - acute component resolved. resume Bumex BID on 07/03 will stop Aldactone and Zaroxolyn patient has maintained euvolemia on just the Bumex, would continue this as sole diuretic on discharge 4. Stage IV CKD due to DM appreciate nephrology consultation patient needs to establish care with benchroom shop optician, will likely need HD in the future Vitamin D low and PTH high discussed with Dr. Nava, will need Venofer daily while here may need Procrit if Hb < 10 and transferrin % > 20 Cr stable at 2.0 for several days, continue Bumex BID dosing 5. T2DM, uncontrolled - multiple lengthy discussions held with patient about importance of glycemic control to help promote wound healing, etc. Encouraged basal-bolus insulin. She agreed to the lantus, refusing Novolog and ACHS sugars despite medical advice Amaryl resumed because patient was adamant about using, warned against problems with renal function, she will continue to use on discharge no issues with hypoglycemia, sugars generally high 100's to mid 200's 6. DVT proph - heparin ordered, but patient refusing. she was warned about high risk for DVT due to immobility, still refusing 7. stage IV sacral decubitus ulcer - pt refusing to have this area examined by staff. 8. 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 needs to exchanged prior to discharge. 9. COPD with chronic hypoxic respiratory failure - stable. 10. hyponatremia - due to CKD, diuresis - resolved. 11. iron def anemia, anemia of CKD- appears chronic x 1-2 years. refusing PO iron. explained importance of such. heme occult negative continue Venofer daily while admitted may need ProCrit 12. Candidiasis: Diflucan 100mg PO daily x 7 days total, today is day 5 13. skin lesions: unsure if this is an allergy. Lesion appear dry. Patient said she was picking her face, explained to her that she should withhold from picking at it. will re-evaluate tomorrow. difficult social situation, cannot go home with home health due to no agencies being willing to work with her cannot go to [facility] or [place] because she has outstanding bills discussed [facility], patient will need to consider this cannot go to [facility] due to cost of Daptomycin patient wants to discuss possibility of going home and she can administer Daptomycin, take transport to wound clinic for dressing changes Discussed with case management. Awaiting placement. It appears difficult due to her social situation. Continued [facility] stay due to: multiple IV medications needed Discharge planning: home with home health, home with IV medication
[2017-07-09 23:48] VITALS: BP 108/70; PULSE 105; TEMP 36.7; O2SAT 91
[2017-07-10] MEDS: ACETAMINOPHEN 325 MG TAB PO PRN ×2 (02:31→14:47)
[2017-07-10] MEDS: OXYCODONE HCL IR 5 MG TAB (IMMEDIATE RELEASE) PO PRN ×2 (03:22→23:32)
[2017-07-10] MEDS: HEPARIN SOD 5000 UNIT/0.5 ML CARP SQ SCH ×3 (05:45→19:52)
[2017-07-10 07:43] VITALS: BP 122/84; PULSE 101; TEMP 36.7; O2SAT 90
[2017-07-10] MEDS: IRON SUCROSE INJ 100 MG in SODIUM CHLORIDE 0.9% 100ML 100 ML IV SCH (07:50)
[2017-07-10] MEDS: BUMETANIDE 1 MG TAB PO SCH ×2 (07:55→20:02)
[2017-07-10] MEDS: FLUCONAZOLE 100 MG TAB PO SCH (07:55)
[2017-07-10] MEDS: GLIMEPIRIDE 2 MG TAB PO SCH (07:55)
[2017-07-10] MEDS: INSULIN ASPART 100 UNITS/ML 3 ML PEN SC SCH ×4 (07:58→20:02)
[2017-07-10] MEDS: EUCERIN CR 120 GM JAR EXT SCH ×2 (07:59→20:03)
[2017-07-10] MEDS: FERROUS SULFATE 325 MG TAB PO SCH ×2 (07:59→17:00)
[2017-07-10 08:06] LABS: HEMATOCRIT 28.5 % (37-47); HEMOGLOBIN 8.2 g/dL (12.0-16.0); MEAN CELL VOLUME 75.2 fL (80-100); MEAN CORPUSCULAR HEMOGLOBIN 21.6 pg (25-34); MEAN CORPUSCULAR HGB CONC 28.8 g/dl (32-36); MEAN PLATELET VOLUME 9.6 fL (7.4-10.4); PLATELET COUNT 181 K/uL (130-400); RED CELL DISTRIBUTION WIDTH CV 22.1 % (11.5-14.5); RED CELL DISTRIBUTION WIDTH SD 56.6 fL (36.4-46.3); WHITE BLOOD COUNT 5.76 K/uL (4.8-10.8)
[2017-07-10 08:22] LABS: CALCIUM 9.4 mg/dl (8.5-10.1); CREATININE 1.9 mg/dl (0.60-1.20); POTASSIUM 4.4 mmol/L (3.5-5.1)
[2017-07-10] MEDS ORDERED: DAPTOmycin IV 650 MG in SODIUM CHLORIDE 0.9% 50ML 50 ML IV ONE (09:26)
[2017-07-10] MEDS: DAPTOmycin IV 650 MG in SYRINGE 0 ML IV SCH (10:08)
--- NOTE | 2017-07-10 15:14 | PROGRESS NOTE ---
DATE: 07/10/2017 DATE: 07/10/2017 SUBJECTIVE: The patient is fairly stable. She is on oxygen. She feels her edema is controlled, although she still has significant lower extremity edema with skin breakdown and ulcers. Denies shortness of breath at rest. VITAL SIGNS: Blood pressure 122/84, 90% on 3 liter nasal cannula, pulse rate 101 per minute, temperature 36.7. Urine output yesterday was 3125 mL. So far today she has already made 2200 mL. PHYSICAL EXAMINATION: GENERAL: Awake, alert, oriented x3, morbidly obese. She is in chair on 2 liter oxygen. NECK: Supple. No jugular venous distention, although hard to appreciate. HEART: Tachycardic in the 90s, systolic murmur, soft heard. ABDOMEN: Morbidly obese. EXTREMITIES: Shows 1+ edema. Legs are bandaged. There are multiple skin breakdowns as well as wounds and ulcers. I did not open the bandage. LUNGS: Decreased breath sounds with occasional crackles at the bases. NEUROLOGIC: Awake, alert, oriented x3. Normal speech. Moving all 4 extremities. LABORATORY TESTS: From this morning shows a hemoglobin of 8.2, WBC 5.76, platelets 181. Sodium 137, potassium 4.4, BUN 94, creatinine 1.9. ASSESSMENT AND PLAN: A 57-year-old female with chronic kidney disease stage IV in the setting of diabetes and right-sided heart failure and history of tobacco abuse in the past. 1. Chronic kidney disease stage IV with proteinuria. She does need significant diuretics. At this time her urine output is quite good. with Bumex 1 mg twice daily. I would recommend to continue the same. 2. Anemia. She did get another dose of IV iron. Hemoglobin remains under 10 so she may be a candidate for Procrit as an outpatient. Overall, I would continue the current management. Continue daily labs. MTDD
[2017-07-10 15:30] VITALS: O2SAT 90
[2017-07-10 15:39] VITALS: BP 119/77; PULSE 103; TEMP 36.9; O2SAT 90
[2017-07-10] MEDS: INSULIN GLARGINE SOLOSTAR 100 UNITS/ML 3 ML PEN SC SCH (20:05)
[2017-07-10 22:08] VITALS: O2SAT 91
--- NOTE | 2017-07-11 00:03 | Progress Note ---
Subjective Date of Service: Jul 10, 2017. Subjective Pt evaluation today including: conversation w/ patient, physical exam, chart review, lab review, review of studies Patient had no complaints today. Patient was concerned about her vitamin d as it is given weekly and she did not receive this weeks dose. Patient informed that she gets medicine on Saturday. Nurse states that skin lesions on face have improved as patient has stopped putting OTC cream on face. Problem List Medical Problems: (1) Acute renal disease Status: Acute (2) Acute renal failure Status: Acute (3) ELIZABETH (acute kidney injury) Status: Acute (4) Cellulitis Status: Acute (5) Cellulitis of both lower extremities Status: Acute (6) CHF (congestive heart failure) Status: Acute (7) CHF (congestive heart failure) Status: Acute (8) Dehydration Status: Acute (9) Fluid overload Status: Acute (10) Hypoxia Status: Acute (11) MRSA (methicillin resistant Staphylococcus aureus) infection Status: Chronic (12) Pickwickian syndrome Status: Acute (13) Pneumonia Status: Acute (14) Respiratory failure Status: Acute (15) Sacral decubitus ulcer, stage III Status: Acute (16) UTI (urinary tract infection) Status: Acute Review of Systems Constitutional: No fever, No chills Respiratory: No cough, No sputum Cardiac: No chest pain, No orthopnea Abdomen: No pain, No nausea Psychiatric: No depression symptoms, No anhedonism Heme: No abnormal bleeding/bruising All Other Systems: Reviewed and Negative Medications Current Inpatient Medications Medications (Trade) Dose Ordered Sig/Bruno Route Start Time Stop Time Status Last Admin Dose Admin Acetaminophen (Tylenol Tab) 650 mg Q4H PRN PO 06/25/17 14:45 07/25/17 14:44 07/10/17 14:47 650 MG Magnesium Hydroxide (Milk Of Magnesia Susp) 30 ml Q6H PRN PO 06/25/17 14:45 07/25/17 14:44 Polyethylene (Miralax Powder Packet) 17 gm DAILY PRN PO 06/25/17 14:45 07/25/17 14:44 Ondansetron HCl (Zofran Inj) 4 mg Q6H PRN IV 06/25/17 14:45 07/25/17 14:44 Multi-Ingredient Ointment (Eucerin Unscented Cr) 1 appln BID EXT 06/25/17 21:00 07/25/17 20:59 07/05/17 21:49 1 APPLN Metolazone (Zaroxolyn Tab) 5 mg TuTh@0830 PO 06/27/17 08:30 07/27/17 08:29 Future Hold 06/27/17 08:24 5 MG Spironolactone (Aldactone Tab) 25 mg DAILY PO 06/26/17 09:00 07/26/17 08:59 Future Hold 06/29/17 08:45 25 MG Insulin Aspart (novoLOG ASPART) SLIDING SCALE If C... ACHS SC 06/25/17 16:30 07/25/17 16:29 07/06/17 21:22 5 UNITS Glucose (Glucose 40% Gel) 15-30 GRAMS 15 GRAMS... UD PRN PO 06/25/17 15:30 07/25/17 15:29 Glucose (Glucose Chew Tab) 4-8 Tablets 4 Tabl... UD PRN PO 06/25/17 15:30 07/25/17 15:29 Dextrose (Dextrose 50% 50ML Syringe) 25-50ML OF 50% DW IV FOR... UD PRN IV 06/25/17 15:30 07/25/17 15:29 Glucagon (Glucagon Inj) 1 mg UD PRN SQ 06/25/17 15:30 07/25/17 15:29 Heparin Sodium (Porcine) (Heparin Sq 5000 Unit/0.5ml) 5,000 unit Q8 SQ 06/25/17 22:00 07/25/17 21:59 Zolpidem Tartrate (Ambien Tab) 5 mg HS PRN PO 06/26/17 21:00 07/25/17 20:59 06/27/17 22:48 5 MG Miconazole Nitrate (Desenex Powder) 1 appln PRN PRN EXT 06/27/17 23:15 07/27/17 23:14 Menthol (Nice Umberto) 1 umberto PRN PRN PO 06/28/17 14:30 07/28/17 14:29 06/28/17 14:30 1 UMBERTO Insulin Glargine (Lantus Solostar Pen) 15 units HS SC 06/28/17 21:00 07/28/17 20:59 07/10/17 20:05 15 UNITS Ferrous Sulfate (Feosol Tab) 325 mg BIDM PO 06/29/17 09:15 07/29/17 09:14 Bumetanide (Bumex Tab) 1 mg BID@0900,1930 PO 06/29/17 19:30 07/29/17 19:29 Future Hold 06/29/17 20:13 1 MG Glimepiride (Amaryl Tab) 2 mg QAM PO 07/01/17 09:00 07/31/17 08:59 07/10/17 07:55 2 MG Heparin Sodium (Porcine) (Heparin 10 Unit/ ml 5 ml Flush) 5 ml PRN PRN FLUSH 06/30/17 19:00 07/30/17 18:59 07/08/17 09:24 5 ML Bumetanide (Bumex Tab) 1 mg BID17 PO 07/03/17 09:00 08/02/17 08:59 07/10/17 20:02 1 MG Ergocalciferol (Vitamin D Cap) 50,000 interunit Fr@0900 PO 07/05/17 09:00 08/04/17 08:59 07/05/17 09:12 50,000 INTERUNIT Fluconazole (Diflucan Tab) 100 mg QAM PO 07/06/17 09:00 07/16/17 08:59 07/10/17 07:55 100 MG Iron Sucrose 100 mg/Sodium Chloride 105 ml @ 420 mls/hr DAILY IV 07/07/17 09:00 08/06/17 08:59 07/10/17 07:50 420 MLS/HR Oxycodone HCl (Roxicodone Immediate Rel Tab) 5 mg Q6H PRN PO 07/10/17 03:00 07/24/17 02:59 07/10/17 23:32 5 MG Daptomycin 650 mg/ Syringe 13 ml @ 6.5 mls/min DAILY IV 07/10/17 10:00 07/20/17 09:59 07/10/17 10:08 6.5 MLS/MIN Objective Vital Signs Date Time Temp Pulse Resp B/P (MAP) Pulse Ox O2 Delivery O2 Flow Rate FiO2 07/10/17 22:08 91 3.0 07/10/17 15:39 36.9 103 18 119/77 (91) 90 Nasal Cannula 3.0 07/10/17 15:30 90 Nasal Cannula 3.0 07/10/17 08:15 Nasal Cannula 3.0 07/10/17 07:43 36.7 101 20 122/84 (97) 90 07/10/17 00:00 Nasal Cannula 3.0 Physical Exam Comments: General Appearance: no apparent distress, + obese Respiratory/Chest: chest non-tender, lungs clear, normal breath sounds, no respiratory distress, no accessory muscle use Cardiovascular: regular rate, rhythm, no edema, no gallop, no JVD, no murmur Abdomen: normal bowel sounds, non tender, soft, no organomegaly Extremities: no pedal edema, no calf tenderness, pelvis stable, + inflammation , + slow capillary refill, + swelling 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 not warm, not tender. no drainage noted. Laboratory Results Last 24 Hours Test 07/10/17 07:30 07/10/17 07:41 07/10/17 11:42 07/10/17 16:17 White Blood Count 5.76 K/uL Red Blood Count 3.79 M/uL Hemoglobin 8.2 g/dL Hematocrit 28.5 % Mean Corpuscular Volume 75.2 fL Mean Corpuscular Hemoglobin 21.6 pg Mean Corpuscular Hemoglobin Concent 28.8 g/dl RDW Standard Deviation 56.6 fL RDW Coefficient of Variation 22.1 % Platelet Count 181 K/uL Mean Platelet Volume 9.6 fL Sodium Level 137 mmol/L Potassium Level 4.4 mmol/L Chloride Level 102 mmol/L Carbon Dioxide Level 28 mmol/L Anion Gap 7.0 mmol/L Blood Urea Nitrogen 94 mg/dl Creatinine 1.90 mg/dl Est Creatinine Clear Calc Drug Dose 39.7 ml/min Estimated GFR () 32.9 Estimated GFR (Non- 28.4 BUN/Creatinine Ratio 49.6 Random Glucose 120 mg/dl Calcium Level 9.4 mg/dl Bedside Glucose 137 mg/dl 167 mg/dl 135 mg/dl Assessment and Plan 57yo female - 1. right heel ulceration with superimposed infection - continue daptomycin for MRSA from culture. Day #13 of such. PICC placed on 06/30, will need several weeks of Daptomycin, follow up with Dr. Brown follow with wound clinic, right heel excisional debridement performed on 06/28 continues to have adequate pain control IV Daptomycin could be difficult for placement but there are no other options currently IV Daptomycin was renewed this AM. Dr. Brown recommends 6 weeks total 2. complicated e. coli UTI due to chronic rodriguez usage - completed 5 days of Rocephin, no further treatment needed 3. acute/chronic right-sided CHF/diastolic CHF - acute component resolved. resume Bumex BID on 07/03 Nephrology agrees with plan to continue bumex. will stop Aldactone and Zaroxolyn patient has maintained euvolemia on just the Bumex, would continue this as sole diuretic on discharge 4. 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 Nava, will need Venofer daily while here may need Procrit if Hb < 10 and transferrin % > 20 Nephro recommends starting Procrit possibly in the outpatient environement Cr stable at 1.9 today, was 20 for days 5. T2DM, uncontrolled - multiple lengthy discussions held with patient about importance of glycemic control to help promote wound healing, etc. Encouraged basal-bolus insulin. She agreed to the lantus, refusing Novolog and ACHS sugars despite medical advice Amaryl resumed because patient was adamant about using, warned against problems with renal function, she will continue to use on discharge no issues with hypoglycemia, sugars generally high 100's to mid 200's 6. DVT proph - heparin ordered, but patient refusing. she was warned about high risk for DVT due to immobility, still refusing 7. stage IV sacral decubitus ulcer - pt refusing to have this area examined by staff. 8. 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 needs to exchanged prior to discharge. 9. COPD with chronic hypoxic respiratory failure - stable. 10. hyponatremia - due to CKD, diuresis - resolved. 11. iron def anemia, anemia of CKD- appears chronic x 1-2 years. refusing PO iron. explained importance of such. heme occult negative continue Venofer daily while admitted may need ProCrit 12. Candidiasis: Diflucan 100mg PO daily x 7 days total, today is day 5 as patient started medicine on the . skin lesions: Improved as they are less prominent. No treatment was given, except stopping OTC skin cream patient has. unsure if this is an allergy. Lesion appear dry. Patient said she was picking her face, explained to her that she should withhold from picking at it. will re-evaluate tomorrow. difficult social situation, cannot go home with home health due to no agencies being willing to work with her cannot go to [facility] or [facility] because she has outstanding bills discussed [facility], patient will need to consider this cannot go to [facility] due to cost of Daptomycin patient wants to discuss possibility of going home and she can administer Daptomycin, take transport to wound clinic for dressing changes Discussed with case management. Awaiting placement. It appears difficult due to her social situation. Continued [facility] stay due to: multiple IV medications needed Discharge planning: home with home health, home with IV medication
[2017-07-11 01:18] VITALS: BP 125/77; PULSE 111; TEMP 37.4; O2SAT 91
[2017-07-11] MEDS: ACETAMINOPHEN 325 MG TAB PO PRN ×2 (02:07→08:36)
[2017-07-11] MEDS: HEPARIN SOD 5000 UNIT/0.5 ML CARP SQ SCH ×3 (05:45→22:00)
[2017-07-11] MEDS: FERROUS SULFATE 325 MG TAB PO SCH ×2 (08:00→17:00)
[2017-07-11] MEDS: INSULIN ASPART 100 UNITS/ML 3 ML PEN SC SCH ×4 (08:17→21:00)
[2017-07-11] MEDS: BUMETANIDE 1 MG TAB PO SCH ×2 (08:18→19:05)
[2017-07-11] MEDS: GLIMEPIRIDE 2 MG TAB PO SCH (08:19)
[2017-07-11] MEDS: EUCERIN CR 120 GM JAR EXT SCH ×2 (08:19→21:00)
[2017-07-11] MEDS: FLUCONAZOLE 100 MG TAB PO SCH (08:19)
[2017-07-11] MEDS: IRON SUCROSE INJ 100 MG in SODIUM CHLORIDE 0.9% 100ML 100 ML IV SCH (08:34)
[2017-07-11] MEDS: DAPTOmycin IV 650 MG in SYRINGE 0 ML IV SCH (08:34)
[2017-07-11] MEDS ORDERED: DAPTOmycin IV 650 MG in SODIUM CHLORIDE 0.9% 50ML 50 ML IV SCH (09:00)
[2017-07-11 09:31] VITALS: BP 105/62; PULSE 99; TEMP 37; O2SAT 95
[2017-07-11 10:08] VITALS: O2SAT 90
[2017-07-11 15:20] VITALS: BP 130/78; PULSE 99; TEMP 36.6; O2SAT 95
[2017-07-11 15:30] VITALS: O2SAT 95
[2017-07-11] MEDS ORDERED: NURSING VERBAL MED ORDER ONE (16:45)
[2017-07-11] MEDS: ACETAMINOPHEN 500 MG TAB PO PRN (17:13)
--- NOTE | 2017-07-11 20:16 | Progress Note ---
Subjective Date of Service: Jul 11, 2017. Subjective Pt evaluation today including: conversation w/ patient, physical exam, lab review, review of inpatient medication list Pain: heels PO Intake: adequate Voiding: rodriguez catheter in place patient sitting in chair wants to discuss her rash on her face, appears to be due to BIPAP mask no other new issues still waiting on placement reviewed CM notes, looking into two other SNF's, referrals sent Problem List Medical Problems: (1) Acute renal disease Status: Acute (2) Acute renal failure Status: Acute (3) ELIZABETH (acute kidney injury) Status: Acute (4) Cellulitis Status: Acute (5) Cellulitis of both lower extremities Status: Acute (6) CHF (congestive heart failure) Status: Acute (7) CHF (congestive heart failure) Status: Acute (8) Dehydration Status: Acute (9) Fluid overload Status: Acute (10) Hypoxia Status: Acute (11) MRSA (methicillin resistant Staphylococcus aureus) infection Status: Chronic (12) Pickwickian syndrome Status: Acute (13) Pneumonia Status: Acute (14) Respiratory failure Status: Acute (15) Sacral decubitus ulcer, stage III Status: Acute (16) UTI (urinary tract infection) Status: Acute Review of Systems Constitutional: + weakness, + fatigue Skin: + rash (face, perioral) All Other Systems: Reviewed and Negative Medications Current Inpatient Medications Medications (Trade) Dose Ordered Sig/Bruno Route Start Time Stop Time Status Last Admin Dose Admin Magnesium Hydroxide (Milk Of Magnesia Susp) 30 ml Q6H PRN PO 06/25/17 14:45 07/25/17 14:44 Polyethylene (Miralax Powder Packet) 17 gm DAILY PRN PO 06/25/17 14:45 07/25/17 14:44 Ondansetron HCl (Zofran Inj) 4 mg Q6H PRN IV 06/25/17 14:45 07/25/17 14:44 Multi-Ingredient Ointment (Eucerin Unscented Cr) 1 appln BID EXT 06/25/17 21:00 07/25/17 20:59 07/05/17 21:49 1 APPLN Metolazone (Zaroxolyn Tab) 5 mg TuTh@0830 PO 06/27/17 08:30 07/27/17 08:29 Future Hold 06/27/17 08:24 5 MG Spironolactone (Aldactone Tab) 25 mg DAILY PO 06/26/17 09:00 07/26/17 08:59 Future Hold 06/29/17 08:45 25 MG Insulin Aspart (novoLOG ASPART) SLIDING SCALE If C... ACHS SC 06/25/17 16:30 07/25/17 16:29 07/06/17 21:22 5 UNITS Glucose (Glucose 40% Gel) 15-30 GRAMS 15 GRAMS... UD PRN PO 06/25/17 15:30 07/25/17 15:29 Glucose (Glucose Chew Tab) 4-8 Tablets 4 Tabl... UD PRN PO 06/25/17 15:30 07/25/17 15:29 Dextrose (Dextrose 50% 50ML Syringe) 25-50ML OF 50% DW IV FOR... UD PRN IV 06/25/17 15:30 07/25/17 15:29 Glucagon (Glucagon Inj) 1 mg UD PRN SQ 06/25/17 15:30 07/25/17 15:29 Heparin Sodium (Porcine) (Heparin Sq 5000 Unit/0.5ml) 5,000 unit Q8 SQ 06/25/17 22:00 07/25/17 21:59 Zolpidem Tartrate (Ambien Tab) 5 mg HS PRN PO 06/26/17 21:00 07/25/17 20:59 06/27/17 22:48 5 MG Miconazole Nitrate (Desenex Powder) 1 appln PRN PRN EXT 06/27/17 23:15 07/27/17 23:14 Menthol (Nice Umberto) 1 umberto PRN PRN PO 06/28/17 14:30 07/28/17 14:29 06/28/17 14:30 1 UMBERTO Insulin Glargine (Lantus Solostar Pen) 15 units HS SC 06/28/17 21:00 07/28/17 20:59 07/10/17 20:05 15 UNITS Ferrous Sulfate (Feosol Tab) 325 mg BIDM PO 06/29/17 09:15 07/29/17 09:14 Bumetanide (Bumex Tab) 1 mg BID@0900,1930 PO 06/29/17 19:30 07/29/17 19:29 Future Hold 06/29/17 20:13 1 MG Glimepiride (Amaryl Tab) 2 mg QAM PO 07/01/17 09:00 07/31/17 08:59 07/11/17 08:19 2 MG Heparin Sodium (Porcine) (Heparin 10 Unit/ ml 5 ml Flush) 5 ml PRN PRN FLUSH 06/30/17 19:00 07/30/17 18:59 07/08/17 09:24 5 ML Ergocalciferol (Vitamin D Cap) 50,000 interunit Fr@0900 PO 07/05/17 09:00 08/04/17 08:59 07/05/17 09:12 50,000 INTERUNIT Fluconazole (Diflucan Tab) 100 mg QAM PO 07/06/17 09:00 07/16/17 08:59 07/11/17 08:19 100 MG Iron Sucrose 100 mg/Sodium Chloride 105 ml @ 420 mls/hr DAILY IV 07/07/17 09:00 08/06/17 08:59 07/11/17 08:34 420 MLS/HR Oxycodone HCl (Roxicodone Immediate Rel Tab) 5 mg Q6H PRN PO 07/10/17 03:00 07/24/17 02:59 07/10/17 23:32 5 MG Daptomycin 650 mg/ Syringe 13 ml @ 6.5 mls/min DAILY IV 07/10/17 10:00 07/20/17 09:59 07/11/17 08:34 6.5 MLS/MIN Acetaminophen (Tylenol Tab) 1,000 mg Q8H PRN PO 07/11/17 17:15 08/10/17 17:14 07/11/17 17:13 1,000 MG Bumetanide (Bumex Tab) 1 mg BID@0900,1900 PO 07/11/17 19:00 08/10/17 18:59 07/11/17 19:05 1 MG Objective Vital Signs Date Time Temp Pulse Resp B/P (MAP) Pulse Ox O2 Delivery O2 Flow Rate FiO2 07/11/17 15:30 95 Nasal Cannula 3.0 07/11/17 15:20 36.6 99 20 130/78 (95) 95 Nasal Cannula 3.0 07/11/17 10:08 90 Nasal Cannula 3.0 07/11/17 09:31 37.0 99 22 105/62 (76) 95 Room Air 07/11/17 01:18 37.4 111 20 125/77 (93) 91 Nasal Cannula 4.0 07/11/17 00:00 Nasal Cannula 3.0 07/10/17 22:08 91 3.0 Physical Exam General Appearance: no apparent distress, + obese Eyes: normal inspection, EOMI, sclerae normal Neck: supple, no adenopathy, no JVD, trachea midline Respiratory/Chest: chest non-tender, lungs clear, normal breath sounds, no respiratory distress, no accessory muscle use Cardiovascular: regular rate, rhythm, no edema, no gallop, no JVD, no murmur Abdomen: normal bowel sounds, non tender, soft, no organomegaly Extremities: no pedal edema, no calf tenderness, pelvis stable, + slow capillary refill 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 right heel ulceration with superimposed infection - continue daptomycin for MRSA from culture. Day #9 of such. PICC placed on 06/30, will need several weeks of Daptomycin, follow up with Dr. Brown follow with wound clinic, right heel excisional debridement performed on 06/28 continues to have adequate pain control IV Daptomycin could be difficult for placement but there are no other options currently Dr. Brown recommends 6 weeks total 2. complicated e. coli UTI due to chronic rodriguez usage - completed 5 days of Rocephin, no further treatment needed 3. acute/chronic right-sided CHF/diastolic CHF - acute component resolved. resume Bumex BID on 07/03 will stop Aldactone and Zaroxolyn patient has maintained euvolemia on just the Bumex, would continue this as sole diuretic on discharge 4. 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 Nava, will need Venofer daily while here may need Procrit if Hb < 10 and transferrin % > 20 Cr stable at 1.9 for several days, continue Bumex BID dosing 5. T2DM, uncontrolled - multiple lengthy discussions held with patient about importance of glycemic control to help promote wound healing, etc. Encouraged basal-bolus insulin. She agreed to the lantus, refusing Novolog and ACHS sugars despite medical advice Amaryl resumed because patient was adamant about using, warned against problems with renal function, she will continue to use on discharge no issues with hypoglycemia, sugars generally high 100's to mid 200's 6. DVT proph - heparin ordered, but patient refusing. she was warned about high risk for DVT due to immobility, still refusing 7. stage IV sacral decubitus ulcer - pt refusing to have this area examined by staff. 8. 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 needs to exchanged prior to discharge. 9. COPD with chronic hypoxic respiratory failure - stable. 10. hyponatremia - due to CKD, diuresis - resolved. 11. iron def anemia, anemia of CKD- appears chronic x 1-2 years. refusing PO iron. explained importance of such. heme occult negative continue Venofer daily while admitted may need ProCrit 12. Candidiasis: Diflucan 100mg PO daily x 7 days total, today is day 6 13. Facial rash: appears to be contact dermatitis, skin irritated by BIPAP mask if still there tomorrow will try mild steroid cream CM sent referrals to [facility] and [facility] strongly encouraged patient to consider SNF Continued [facility] stay due to: multiple IV medications needed Discharge planning: home with home health, home with IV medication
[2017-07-11] MEDS: INSULIN GLARGINE SOLOSTAR 100 UNITS/ML 3 ML PEN SC SCH (22:07)
[2017-07-11 22:48] VITALS: O2SAT 91
[2017-07-12] MEDS: HEPARIN SOD 5000 UNIT/0.5 ML CARP SQ SCH ×3 (06:00→21:27)
[2017-07-12] MEDS: INSULIN ASPART 100 UNITS/ML 3 ML PEN SC SCH ×4 (07:40→21:00)
[2017-07-12] MEDS: FERROUS SULFATE 325 MG TAB PO SCH ×2 (08:00→16:16)
[2017-07-12 08:01] VITALS: BP 116/71; PULSE 99; TEMP 36.5; O2SAT 93
[2017-07-12] MEDS: EUCERIN CR 120 GM JAR EXT SCH ×2 (09:00→21:00)
[2017-07-12] MEDS: IRON SUCROSE INJ 100 MG in SODIUM CHLORIDE 0.9% 100ML 100 ML IV SCH (09:05)
[2017-07-12] MEDS: ACETAMINOPHEN 500 MG TAB PO PRN ×2 (09:05→18:44)
[2017-07-12] MEDS: DAPTOmycin IV 650 MG in SYRINGE 0 ML IV SCH (09:05)
[2017-07-12] MEDS: GLIMEPIRIDE 2 MG TAB PO SCH (09:06)
[2017-07-12] MEDS: BUMETANIDE 1 MG TAB PO SCH ×2 (09:06→18:18)
[2017-07-12] MEDS: FLUCONAZOLE 100 MG TAB PO SCH (09:07)
[2017-07-12] MEDS: ERGOCALCIFEROL 50,000 INTER.UNIT CAP PO SCH (09:07)
[2017-07-12 09:20] LABS: CALCIUM 9.1 mg/dl (8.5-10.1); CREATININE 2.08 mg/dl (0.60-1.20); POTASSIUM 4.7 mmol/L (3.5-5.1)
[2017-07-12 09:29] LABS: HEMATOCRIT 29.6 % (37-47); HEMOGLOBIN 8.4 g/dL (12.0-16.0); MEAN CELL VOLUME 76.7 fL (80-100); MEAN CORPUSCULAR HEMOGLOBIN 21.8 pg (25-34); MEAN CORPUSCULAR HGB CONC 28.4 g/dl (32-36); MEAN PLATELET VOLUME 10.5 fL (7.4-10.4); PLATELET COUNT 179 K/uL (130-400); RED CELL DISTRIBUTION WIDTH CV 23.2 % (11.5-14.5); RED CELL DISTRIBUTION WIDTH SD 60.7 fL (36.4-46.3); WHITE BLOOD COUNT 6.18 K/uL (4.8-10.8)
[2017-07-12 10:03] VITALS: O2SAT 93
[2017-07-12] MEDS ORDERED: TRIAMCINOLONE ACET 0.1% CR 15 GM TUBE EXT PRN (13:45)
[2017-07-12] MEDS ORDERED: CLOTRIMAZOLE 1% CR 15 GM TUBE EXT PRN (14:00)
[2017-07-12 15:12] VITALS: BP 117/68; PULSE 107; TEMP 37.3; O2SAT 90
[2017-07-12 16:30] VITALS: O2SAT 93
[2017-07-12] MEDS: INSULIN GLARGINE SOLOSTAR 100 UNITS/ML 3 ML PEN SC SCH (21:26)
--- NOTE | 2017-07-12 22:26 | Progress Note ---
Subjective Date of Service: Jul 12, 2017. Subjective Pt evaluation today including: conversation w/ patient, physical exam, lab review, review of inpatient medication list Pain: heels PO Intake: adequate Voiding: rodriguez catheter in place patient feeling okay today c/o the rash around face, getting worse, more pruritic discussed discharge plan, explained that [facility] could not accept patient, unsure of reason explained that referrals made to two places in [place] patient reluctant to consider going either place, explained that she really would not have an option as per the rash, unclear etiology she remembers that she had a very similar rash when at [facility] and Dr. Neumann prescribed clotrimazole which resolved the rash Problem List Medical Problems: (1) Acute renal disease Status: Acute (2) Acute renal failure Status: Acute (3) ELIZABETH (acute kidney injury) Status: Acute (4) Cellulitis Status: Acute (5) Cellulitis of both lower extremities Status: Acute (6) CHF (congestive heart failure) Status: Acute (7) CHF (congestive heart failure) Status: Acute (8) Dehydration Status: Acute (9) Fluid overload Status: Acute (10) Hypoxia Status: Acute (11) MRSA (methicillin resistant Staphylococcus aureus) infection Status: Chronic (12) Pickwickian syndrome Status: Acute (13) Pneumonia Status: Acute (14) Respiratory failure Status: Acute (15) Sacral decubitus ulcer, stage III Status: Acute (16) UTI (urinary tract infection) Status: Acute Review of Systems Constitutional: + weakness, + fatigue Respiratory: + dyspnea on exertion Skin: + rash (around mouth, nose), + problem reported (heel and sacral wounds) Objective Vital Signs Date Time Temp Pulse Resp B/P (MAP) Pulse Ox O2 Delivery O2 Flow Rate FiO2 07/12/17 16:30 93 Nasal Cannula 3.0 07/12/17 15:12 37.3 107 22 117/68 (84) 90 Nasal Cannula 3.0 07/12/17 10:03 93 Nasal Cannula 3.0 07/12/17 08:01 36.5 99 20 116/71 (86) 93 Nasal Cannula 3.0 07/11/17 22:48 91 3.0 Physical Exam General Appearance: no apparent distress, + obese Eyes: normal inspection, EOMI, sclerae normal Neck: supple, no adenopathy, no JVD, trachea midline Respiratory/Chest: chest non-tender, lungs clear, normal breath sounds, no respiratory distress, no accessory muscle use Cardiovascular: regular rate, rhythm, no edema, no gallop, no JVD, no murmur Abdomen: normal bowel sounds, non tender, soft, no organomegaly Extremities: normal range of motion, non-tender, normal inspection, no pedal edema, no calf tenderness, pelvis stable, + slow capillary refill Neurologic/Psychiatric: smudger II-XII nml as tested, alert, normal mood/affect, oriented x 3, + motor weakness Skin: + rash (around mouth and nose and cheek, erythematous, scaling, dry), + pertinent finding (heel and sacral wounds) Laboratory Results Last 24 Hours Test 07/12/17 07:30 07/12/17 08:32 07/12/17 11:34 Bedside Glucose 135 mg/dl 172 mg/dl White Blood Count 6.18 K/uL Red Blood Count 3.86 M/uL Hemoglobin 8.4 g/dL Hematocrit 29.6 % Mean Corpuscular Volume 76.7 fL Mean Corpuscular Hemoglobin 21.8 pg Mean Corpuscular Hemoglobin Concent 28.4 g/dl RDW Standard Deviation 60.7 fL RDW Coefficient of Variation 23.2 % Platelet Count 179 K/uL Mean Platelet Volume 10.5 fL Sodium Level 140 mmol/L Potassium Level 4.7 mmol/L Chloride Level 105 mmol/L Carbon Dioxide Level 29 mmol/L Anion Gap 6.0 mmol/L Blood Urea Nitrogen 94 mg/dl Creatinine 2.08 mg/dl Est Creatinine Clear Calc Drug Dose 36.2 ml/min Estimated GFR () 29.5 Estimated GFR (Non- 25.4 BUN/Creatinine Ratio 45.3 Random Glucose 152 mg/dl Calcium Level 9.1 mg/dl Assessment and Plan 57yo female - 1. right heel ulceration with superimposed infection - continue daptomycin for MRSA from culture. Day #9 of such. PICC placed on 06/30, will need several weeks of Daptomycin, follow up with Dr. Brown follow with wound clinic, right heel excisional debridement performed on 06/28 continues to have adequate pain control IV Daptomycin could be difficult for placement but there are no other options currently Dr. Brown recommends 6 weeks total 2. complicated e. coli UTI due to chronic rodriguez usage - completed 5 days of Rocephin, no further treatment needed 3. acute/chronic right-sided CHF/diastolic CHF - acute component resolved. resume Bumex BID on 07/03 will stop Aldactone and Zaroxolyn patient has maintained euvolemia on just the Bumex, would continue this as sole diuretic on discharge 4. Stage IV CKD due to DM appreciate nephrology consultation patient needs to establish care with supervisor force adjustment, will likely need HD in the future Vitamin D low and PTH high discussed with Dr. Nava, will need Venofer daily while here may need Procrit if Hb < 10 and transferrin % > 20 Cr stable at 1.9 to 2.0 for several days, continue Bumex BID dosing 5. T2DM, uncontrolled - multiple lengthy discussions held with patient about importance of glycemic control to help promote wound healing, etc. Encouraged basal-bolus insulin. She agreed to the lantus, refusing Novolog and ACHS sugars despite medical advice Amaryl resumed because patient was adamant about using, warned against problems with renal function, she will continue to use on discharge no issues with hypoglycemia, sugars generally high 100's to mid 200's 6. DVT proph - heparin ordered, but patient refusing. she was warned about high risk for DVT due to immobility, still refusing 7. stage IV sacral decubitus ulcer - pt refusing to have this area examined by staff. 8. 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 needs to exchanged prior to discharge. 9. COPD with chronic hypoxic respiratory failure - stable. 10. hyponatremia - due to CKD, diuresis - resolved. 11. iron def anemia, anemia of CKD- appears chronic x 1-2 years. refusing PO iron. explained importance of such. heme occult negative continue Venofer daily while admitted may need ProCrit 12. Candidiasis: Diflucan 100mg PO daily x 7 days total, today is day 7, will stop 13. Facial rash: appears to be contact dermatitis, skin irritated by BIPAP mask patient reports that the exact same rash responded to clotrimazole in the past doubt fungal rash on face but perhaps possible with use of BIPAP mask, DM, on antibiotics will try Clotrimazole applied BID, look for improvement in 2 days if it is going to work CM sent referrals to [facility] strongly encouraged patient to consider SNF, explained that these may be her only option Continued [facility] stay due to: multiple IV medications needed Discharge planning: home with home health, home with IV medication
[2017-07-12 22:31] VITALS: O2SAT 91
[2017-07-13 00:23] VITALS: BP 118/80; PULSE 102; TEMP 36.4; O2SAT 92
[2017-07-13] MEDS: OXYCODONE HCL IR 5 MG TAB (IMMEDIATE RELEASE) PO PRN ×2 (00:59→23:12)
[2017-07-13] MEDS: ACETAMINOPHEN 500 MG TAB PO PRN ×2 (02:45→10:57)
[2017-07-13] MEDS: HEPARIN SOD 5000 UNIT/0.5 ML CARP SQ SCH ×3 (06:00→20:15)
[2017-07-13] MEDS: INSULIN ASPART 100 UNITS/ML 3 ML PEN SC SCH ×4 (07:34→20:15)
[2017-07-13] MEDS: FERROUS SULFATE 325 MG TAB PO SCH ×2 (07:54→16:33)
[2017-07-13] MEDS: EUCERIN CR 120 GM JAR EXT SCH ×2 (07:55→20:15)
[2017-07-13] MEDS: BUMETANIDE 1 MG TAB PO SCH ×2 (07:59→18:38)
[2017-07-13] MEDS: GLIMEPIRIDE 2 MG TAB PO SCH (07:59)
[2017-07-13] MEDS: FLUCONAZOLE 100 MG TAB PO SCH (07:59)
[2017-07-13] MEDS: IRON SUCROSE INJ 100 MG in SODIUM CHLORIDE 0.9% 100ML 100 ML IV SCH (08:40)
[2017-07-13] MEDS: DAPTOmycin IV 650 MG in SYRINGE 0 ML IV SCH (08:40)
[2017-07-13 15:56] VITALS: BP 111/57; PULSE 47; TEMP 36.9; O2SAT 90
[2017-07-13] MEDS: INSULIN GLARGINE SOLOSTAR 100 UNITS/ML 3 ML PEN SC SCH (21:00)
[2017-07-13 22:55] VITALS: BP 104/56; PULSE 107; TEMP 37.4; O2SAT 89
--- NOTE | 2017-07-13 23:28 | Progress Note ---
Subjective Date of Service: Jul 13, 2017. Subjective Pt evaluation today including: conversation w/ patient, physical exam, chart review Patient has no new complaints. Her only concern is regarding her pain medicine. She would like the opiates increased, she states that the increase tylenol is not helping. Problem List Medical Problems: (1) Acute renal disease Status: Acute (2) Acute renal failure Status: Acute (3) ELIZABETH (acute kidney injury) Status: Acute (4) Cellulitis Status: Acute (5) Cellulitis of both lower extremities Status: Acute (6) CHF (congestive heart failure) Status: Acute (7) CHF (congestive heart failure) Status: Acute (8) Dehydration Status: Acute (9) Fluid overload Status: Acute (10) Hypoxia Status: Acute (11) MRSA (methicillin resistant Staphylococcus aureus) infection Status: Chronic (12) Pickwickian syndrome Status: Acute (13) Pneumonia Status: Acute (14) Respiratory failure Status: Acute (15) Sacral decubitus ulcer, stage III Status: Acute (16) UTI (urinary tract infection) Status: Acute Review of Systems Constitutional: No fever, No chills Respiratory: No cough, No sputum Cardiac: No orthopnea Abdomen: No pain, No nausea Musculoskeletal: + muscle pain Female : No dysuria Neurologic: No memory loss, No paralysis Psychiatric: No depression symptoms Heme: No abnormal bleeding/bruising Endo: No fatigue Skin: + rash, + new/changing skin lesions All Other Systems: Reviewed and Negative Medications Current Inpatient Medications Medications (Trade) Dose Ordered Sig/Bruno Route Start Time Stop Time Status Last Admin Dose Admin Magnesium Hydroxide (Milk Of Magnesia Susp) 30 ml Q6H PRN PO 06/25/17 14:45 07/25/17 14:44 Polyethylene (Miralax Powder Packet) 17 gm DAILY PRN PO 06/25/17 14:45 07/25/17 14:44 Ondansetron HCl (Zofran Inj) 4 mg Q6H PRN IV 06/25/17 14:45 07/25/17 14:44 Multi-Ingredient Ointment (Eucerin Unscented Cr) 1 appln BID EXT 06/25/17 21:00 07/25/17 20:59 07/05/17 21:49 1 APPLN Metolazone (Zaroxolyn Tab) [facility] 06/27/17 08:30 07/27/17 08:29 Future Hold 06/27/17 08:24 5 MG Spironolactone (Aldactone Tab) 25 mg DAILY PO 06/26/17 09:00 07/26/17 08:59 Future Hold 06/29/17 08:45 25 MG Insulin Aspart (novoLOG ASPART) SLIDING SCALE If C... ACHS SC 06/25/17 16:30 07/25/17 16:29 07/06/17 21:22 5 UNITS Glucose (Glucose 40% Gel) 15-30 GRAMS 15 GRAMS... UD PRN PO 06/25/17 15:30 07/25/17 15:29 Glucose (Glucose Chew Tab) 4-8 Tablets 4 Tabl... UD PRN PO 06/25/17 15:30 07/25/17 15:29 Dextrose (Dextrose 50% 50ML Syringe) 25-50ML OF 50% DW IV FOR... UD PRN IV 06/25/17 15:30 07/25/17 15:29 Glucagon (Glucagon Inj) 1 mg UD PRN SQ 06/25/17 15:30 07/25/17 15:29 Heparin Sodium (Porcine) (Heparin Sq 5000 Unit/0.5ml) 5,000 unit Q8 SQ 06/25/17 22:00 07/25/17 21:59 Zolpidem Tartrate (Ambien Tab) 5 mg HS PRN PO 06/26/17 21:00 07/25/17 20:59 06/27/17 22:48 5 MG Miconazole Nitrate (Desenex Powder) 1 appln PRN PRN EXT 06/27/17 23:15 07/27/17 23:14 Menthol (Nice Umberto) 1 umberto PRN PRN PO 06/28/17 14:30 07/28/17 14:29 06/28/17 14:30 1 UMBERTO Insulin Glargine (Lantus Solostar Pen) 15 units HS SC 06/28/17 21:00 07/28/17 20:59 07/12/17 21:26 15 UNITS Ferrous Sulfate (Feosol Tab) 325 mg BIDM PO 06/29/17 09:15 07/29/17 09:14 Bumetanide (Bumex Tab) 1 mg BID@0900,1930 PO 06/29/17 19:30 07/29/17 19:29 Future Hold 06/29/17 20:13 1 MG Glimepiride (Amaryl Tab) 2 mg QAM PO 07/01/17 09:00 07/31/17 08:59 07/13/17 07:59 2 MG Heparin Sodium (Porcine) (Heparin 10 Unit/ ml 5 ml Flush) 5 ml PRN PRN FLUSH 06/30/17 19:00 07/30/17 18:59 07/13/17 09:00 5 ML Ergocalciferol (Vitamin D Cap) 50,000 interunit Fr@0900 PO 07/05/17 09:00 08/04/17 08:59 07/12/17 09:07 50,000 INTERUNIT Fluconazole (Diflucan Tab) 100 mg QAM PO 07/06/17 09:00 07/16/17 08:59 07/13/17 07:59 100 MG Iron Sucrose 100 mg/Sodium Chloride 105 ml @ 420 mls/hr DAILY IV 07/07/17 09:00 08/06/17 08:59 07/13/17 08:40 420 MLS/HR Oxycodone HCl (Roxicodone Immediate Rel Tab) 5 mg Q6H PRN PO 07/10/17 03:00 07/24/17 02:59 07/14/17 05:56 5 MG Daptomycin 650 mg/ Syringe 13 ml @ 6.5 mls/min DAILY IV 07/10/17 10:00 07/20/17 09:59 07/13/17 08:40 6.5 MLS/MIN Acetaminophen (Tylenol Tab) 1,000 mg Q8H PRN PO 07/11/17 17:15 08/10/17 17:14 07/13/17 10:57 1,000 MG Bumetanide (Bumex Tab) 1 mg BID@0900,1900 PO 07/11/17 19:00 08/10/17 18:59 07/13/17 18:38 1 MG Diphenhydramine HCl (Benadryl Cap) 25 mg HS PRN PO 07/11/17 21:45 08/10/17 21:44 Clotrimazole (Lotrimin 1% Crm) 1 appln BID PRN EXT 07/12/17 14:00 08/11/17 13:59 07/12/17 21:47 1 APPLN Objective Vital Signs Date Time Temp Pulse Resp B/P (MAP) Pulse Ox O2 Delivery O2 Flow Rate FiO2 07/13/17 22:55 37.4 107 22 104/56 (72) 89 Nasal Cannula 2.0 Humidified Oxygen 07/13/17 22:39 3.0 07/13/17 20:00 Nasal Cannula 3.0 07/13/17 15:56 36.9 47 24 111/57 (75) 90 Nasal Cannula 3.0 07/13/17 09:00 Nasal Cannula 3.0 07/13/17 00:23 36.4 102 18 118/80 (93) 92 07/13/17 00:00 Nasal Cannula 3.0 Physical Exam Comments: General Appearance: no apparent distress, + obese Eyes: normal inspection, EOMI, sclerae normal Neck: supple, no adenopathy, no JVD, trachea midline Respiratory/Chest: chest non-tender, lungs clear, normal breath sounds, no respiratory distress, no accessory muscle use Cardiovascular: regular rate, rhythm, no edema, no gallop, no JVD, no murmur Abdomen: normal bowel sounds, non tender, soft, no organomegaly Extremities: normal range of motion, non-tender, normal inspection, no pedal edema, no calf tenderness, pelvis stable, + slow capillary refill Neurologic/Psychiatric: fire fighting equipment specialist II-XII nml as tested, alert, normal mood/affect, oriented x 3, + motor weakness Skin: + rash (around mouth and nose and cheek, erythematous, scaling, dry), + pertinent finding (heel and sacral wounds) Laboratory Results Last 24 Hours Test 07/13/17 07:31 07/13/17 08:14 07/13/17 11:34 07/13/17 16:18 Bedside Glucose 62 mg/dl 77 mg/dl 218 mg/dl 158 mg/dl Assessment and Plan 57yo female - 1. right heel ulceration with superimposed infection - continue daptomycin for MRSA from culture. Day #16 of such. PICC placed on 06/30, will need several weeks of Daptomycin, follow up with Dr. Brown follow with wound clinic, right heel excisional debridement performed on 06/28 continues to have adequate pain control IV Daptomycin could be difficult for placement but there are no other options currently Dr. Brown recommends 6 weeks total 2. complicated e. coli UTI due to chronic rodriguez usage - completed 5 days of Rocephin, no further treatment needed 3. acute/chronic right-sided CHF/diastolic CHF - acute component resolved. resume Bumex BID on 07/03 will stop Aldactone and Zaroxolyn patient has maintained euvolemia on just the Bumex, would continue this as sole diuretic on discharge 4. Stage IV CKD due to DM appreciate nephrology consultation patient needs to establish care with fireworks display specialist, will likely need HD in the future Vitamin D low and PTH high discussed with Dr. Nava, will need Venofer daily while here may need Procrit if Hb < 10 and transferrin % > 20 Cr stable at 1.9 to 2.0 for several days, continue Bumex BID dosing 5. T2DM, uncontrolled - multiple lengthy discussions held with patient about importance of glycemic control to help promote wound healing, etc. Encouraged basal-bolus insulin. She agreed to the lantus, refusing Novolog and ACHS sugars despite medical advice Amaryl resumed because patient was adamant about using, warned against problems with renal function, she will continue to use on discharge no issues with hypoglycemia, sugars generally high 100's to mid 200's 6. DVT proph - heparin ordered, but patient refusing. she was warned about high risk for DVT due to immobility, still refusing 7. stage IV sacral decubitus ulcer - pt refusing to have this area examined by staff. 8. 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 needs to exchanged prior to discharge. 9. COPD with chronic hypoxic respiratory failure - stable. 10. hyponatremia - due to CKD, diuresis - resolved. 11. iron def anemia, anemia of CKD- appears chronic x 1-2 years. refusing PO iron. explained importance of such. heme occult negative continue Venofer daily while admitted may need ProCrit 12. Candidiasis: Diflucan 100mg PO daily x 7 days total, today is day 7, will stop 13. Facial rash: appears to be contact dermatitis, skin irritated by BIPAP mask patient reports that the exact same rash responded to clotrimazole in the past doubt fungal rash on face but perhaps possible with use of BIPAP mask, DM, on antibiotics will try Clotrimazole applied BID, look for improvement in 2 days if it is going to work will reassess on Saturday. Chronic Pain: Patient has not been taking opiates. Explained to nurse that patient is requesting a stronger pain medicine. In regards to tylenol, will cut back on strength as 1 gr is not helping at all as per patient, and to decrease risk of hepato- toxicity. CM sent referrals to [facility] and [facility] strongly encouraged patient to consider SNF, explained that these may be her only option Continued [facility] stay due to: multiple IV medications needed Discharge planning: home with home health, home with IV medication Continued [facility] stay due to: multiple IV medications needed Discharge planning: home with home health, home with IV medication
[2017-07-14] MEDS: HEPARIN SOD 5000 UNIT/0.5 ML CARP SQ SCH ×3 (05:53→20:32)
[2017-07-14] MEDS: OXYCODONE HCL IR 5 MG TAB (IMMEDIATE RELEASE) PO PRN (05:56)
[2017-07-14] MEDS: FERROUS SULFATE 325 MG TAB PO SCH ×2 (08:00→16:58)
[2017-07-14] MEDS: EUCERIN CR 120 GM JAR EXT SCH ×2 (08:20→20:31)
[2017-07-14] MEDS ORDERED: ACETAMINOPHEN 325 MG TAB PO PRN (09:00)
[2017-07-14] MEDS: IRON SUCROSE INJ 100 MG in SODIUM CHLORIDE 0.9% 100ML 100 ML IV SCH (09:41)
[2017-07-14] MEDS: FLUCONAZOLE 100 MG TAB PO SCH (09:41)
[2017-07-14] MEDS: DAPTOmycin IV 650 MG in SYRINGE 0 ML IV SCH (09:41)
[2017-07-14] MEDS: BUMETANIDE 1 MG TAB PO SCH ×2 (09:41→18:38)
[2017-07-14] MEDS: INSULIN ASPART 100 UNITS/ML 3 ML PEN SC SCH ×4 (09:41→20:32)
[2017-07-14] MEDS: GLIMEPIRIDE 2 MG TAB PO SCH (09:41)
[2017-07-14 15:54] VITALS: BP 125/69; PULSE 105; TEMP 36.9; O2SAT 88
[2017-07-14] MEDS: INSULIN GLARGINE SOLOSTAR 100 UNITS/ML 3 ML PEN SC SCH (20:32)
[2017-07-14] MEDS ORDERED: SODIUM CHLORIDE 0.65% NA SOLN 45 ML (OCEAN) ONE (22:07)
[2017-07-14 23:46] VITALS: BP 126/64; PULSE 108; O2SAT 89
[2017-07-15] MEDS: OXYCODONE HCL IR 5 MG TAB (IMMEDIATE RELEASE) PO PRN ×2 (01:01→21:06)
[2017-07-15] MEDS: HEPARIN SOD 5000 UNIT/0.5 ML CARP SQ SCH ×3 (05:41→21:01)
--- NOTE | 2017-07-15 06:44 | Progress Note ---
Subjective Date of Service: Jul 14, 2017. Seen at 13:00 Subjective Patient has no new complaints. She states that rash in her face is improving and the skin lesions in her lower extremities have been improving as well. Problem List Medical Problems: (1) Acute renal disease Status: Acute (2) Acute renal failure Status: Acute (3) ELIZABETH (acute kidney injury) Status: Acute (4) Cellulitis Status: Acute (5) Cellulitis of both lower extremities Status: Acute (6) CHF (congestive heart failure) Status: Acute (7) CHF (congestive heart failure) Status: Acute (8) Dehydration Status: Acute (9) Fluid overload Status: Acute (10) Hypoxia Status: Acute (11) MRSA (methicillin resistant Staphylococcus aureus) infection Status: Chronic (12) Pickwickian syndrome Status: Acute (13) Pneumonia Status: Acute (14) Respiratory failure Status: Acute (15) Sacral decubitus ulcer, stage III Status: Acute (16) UTI (urinary tract infection) Status: Acute Review of Systems Constitutional: No fever, No chills ENT: No hearing loss, No unusual epistaxis Respiratory: No cough Cardiac: No chest pain, No orthopnea Abdomen: No pain Musculoskeletal: No joint pain Neurologic: No memory loss Psychiatric: No depression symptoms Skin: + rash, + itch All Other Systems: Reviewed and Negative Medications Current Inpatient Medications Medications (Trade) Dose Ordered Sig/Bruno Route Start Time Stop Time Status Last Admin Dose Admin Magnesium Hydroxide (Milk Of Magnesia Susp) 30 ml Q6H PRN PO 06/25/17 14:45 07/25/17 14:44 Polyethylene (Miralax Powder Packet) 17 gm DAILY PRN PO 06/25/17 14:45 07/25/17 14:44 Ondansetron HCl (Zofran Inj) 4 mg Q6H PRN IV 06/25/17 14:45 07/25/17 14:44 Multi-Ingredient Ointment (Eucerin Unscented Cr) 1 appln BID EXT 06/25/17 21:00 07/25/17 20:59 07/05/17 21:49 1 APPLN Metolazone (Zaroxolyn Tab) 5 mg TuTh@0830 PO 06/27/17 08:30 07/27/17 08:29 Future Hold 06/27/17 08:24 5 MG Spironolactone (Aldactone Tab) 25 mg DAILY PO 06/26/17 09:00 07/26/17 08:59 Future Hold 06/29/17 08:45 25 MG Insulin Aspart (novoLOG ASPART) SLIDING SCALE If C... ACHS SC 06/25/17 16:30 07/25/17 16:29 07/06/17 21:22 5 UNITS Glucose (Glucose 40% Gel) 15-30 GRAMS 15 GRAMS... UD PRN PO 06/25/17 15:30 07/25/17 15:29 Glucose (Glucose Chew Tab) 4-8 Tablets 4 Tabl... UD PRN PO 06/25/17 15:30 07/25/17 15:29 Dextrose (Dextrose 50% 50ML Syringe) 25-50ML OF 50% DW IV FOR... UD PRN IV 06/25/17 15:30 07/25/17 15:29 Glucagon (Glucagon Inj) 1 mg UD PRN SQ 06/25/17 15:30 07/25/17 15:29 Heparin Sodium (Porcine) (Heparin Sq 5000 Unit/0.5ml) 5,000 unit Q8 SQ 06/25/17 22:00 07/25/17 21:59 Zolpidem Tartrate (Ambien Tab) 5 mg HS PRN PO 06/26/17 21:00 07/25/17 20:59 06/27/17 22:48 5 MG Miconazole Nitrate (Desenex Powder) 1 appln PRN PRN EXT 06/27/17 23:15 07/27/17 23:14 Menthol (Nice Umberto) 1 umberto PRN PRN PO 06/28/17 14:30 07/28/17 14:29 06/28/17 14:30 1 UMBERTO Insulin Glargine (Lantus Solostar Pen) 15 units HS SC 06/28/17 21:00 07/28/17 20:59 07/12/17 21:26 15 UNITS Ferrous Sulfate (Feosol Tab) 325 mg BIDM PO 06/29/17 09:15 07/29/17 09:14 Bumetanide (Bumex Tab) 1 mg BID@0900,1930 PO 06/29/17 19:30 07/29/17 19:29 Future Hold 06/29/17 20:13 1 MG Glimepiride (Amaryl Tab) 2 mg QAM PO 07/01/17 09:00 07/31/17 08:59 07/14/17 09:41 2 MG Heparin Sodium (Porcine) (Heparin 10 Unit/ ml 5 ml Flush) 5 ml PRN PRN FLUSH 06/30/17 19:00 07/30/17 18:59 07/14/17 10:03 5 ML Ergocalciferol (Vitamin D Cap) 50,000 interunit Fr@0900 PO 07/05/17 09:00 08/04/17 08:59 07/12/17 09:07 50,000 INTERUNIT Fluconazole (Diflucan Tab) 100 mg QAM PO 07/06/17 09:00 07/16/17 08:59 07/14/17 09:41 100 MG Iron Sucrose 100 mg/Sodium Chloride 105 ml @ 420 mls/hr DAILY IV 07/07/17 09:00 08/06/17 08:59 07/14/17 09:41 420 MLS/HR Oxycodone HCl (Roxicodone Immediate Rel Tab) 5 mg Q6H PRN PO 07/10/17 03:00 07/24/17 02:59 07/15/17 01:01 5 MG Daptomycin 650 mg/ Syringe 13 ml @ 6.5 mls/min DAILY IV 07/10/17 10:00 07/20/17 09:59 07/14/17 09:41 6.5 MLS/MIN Bumetanide (Bumex Tab) 1 mg BID@0900,1900 PO 07/11/17 19:00 08/10/17 18:59 07/14/17 18:38 1 MG Diphenhydramine HCl (Benadryl Cap) 25 mg HS PRN PO 07/11/17 21:45 08/10/17 21:44 Clotrimazole (Lotrimin 1% Crm) 1 appln BID PRN EXT 07/12/17 14:00 08/11/17 13:59 07/12/17 21:47 1 APPLN Acetaminophen (Tylenol Tab) 650 mg Q6H PRN PO 07/14/17 09:00 08/13/17 08:59 Objective Vital Signs Date Time Temp Pulse Resp B/P (MAP) Pulse Ox O2 Delivery O2 Flow Rate FiO2 11/27/17 00:00 Nasal Cannula 07/14/17 23:46 108 20 126/64 (84) 89 Nasal Cannula 3.0 07/14/17 21:18 3.0 07/14/17 16:45 Nasal Cannula 3.0 07/14/17 15:54 36.9 105 22 125/69 (87) 88 Nasal Cannula 3.0 07/14/17 09:00 Nasal Cannula 3.0 Physical Exam Comments: General Appearance: no apparent distress, + obese Eyes: normal inspection, EOMI, sclerae normal Neck: supple, no adenopathy, no JVD, trachea midline Respiratory/Chest: chest non-tender, lungs clear, normal breath sounds, no respiratory distress, no accessory muscle use Cardiovascular: regular rate, rhythm, no edema, no gallop, no JVD, no murmur Abdomen: normal bowel sounds, non tender, soft, no organomegaly Extremities: normal range of motion, non-tender, normal inspection, no pedal edema, no calf tenderness, pelvis stable, + slow capillary refill Neurologic/Psychiatric: interlocker II-XII nml as tested, alert, normal mood/affect, oriented x 3, Skin: + rash (around mouth and nose and cheek, erythematous, scaling, dry), + pertinent finding (heel and sacral wounds) Laboratory Results Last 24 Hours Test 07/14/17 09:33 07/14/17 16:48 Bedside Glucose 121 mg/dl 161 mg/dl Assessment and Plan 57yo female - 1. right heel ulceration with superimposed infection - continue daptomycin for MRSA from culture. Day #17 of such. PICC placed on 06/30, will need several weeks of Daptomycin, follow up with Dr. Brown follow with wound clinic, right heel excisional debridement performed on 06/28 continues to have adequate pain control IV Daptomycin could be difficult for placement but there are no other options currently Dr. Brown recommends 6 weeks total 2. complicated e. coli UTI due to chronic rodriguez usage - completed 5 days of Rocephin, no further treatment needed 3. acute/chronic right-sided CHF/diastolic CHF - acute component resolved. resume Bumex BID on 07/03 will stop Aldactone and Zaroxolyn patient has maintained euvolemia on just the Bumex, would continue this as sole diuretic on discharge 4. Stage IV CKD due to DM appreciate nephrology consultation patient needs to establish care with [facility], will likely need HD in the future Vitamin D low and PTH high discussed with Dr. Nava, will need Venofer daily while here may need Procrit if Hb < 10 and transferrin % > 20 Cr stable at 1.9 to 2.0 for several days, continue Bumex BID dosing (last checked on 07/12) 5. T2DM, uncontrolled - multiple lengthy discussions held with patient about importance of glycemic control to help promote wound healing, etc. Encouraged basal-bolus insulin. She agreed to the lantus, refusing Novolog and ACHS sugars despite medical advice Amaryl resumed because patient was adamant about using, warned against problems with renal function, she will continue to use on discharge no issues with hypoglycemia, sugars generally high 100's to mid 200's 6. DVT proph - heparin ordered, but patient refusing. she was warned about high risk for DVT due to immobility, still refusing 7. stage IV sacral decubitus ulcer - pt refusing to have this area examined by staff. 8. 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 needs to exchanged prior to discharge. 9. COPD with chronic hypoxic respiratory failure - stable. 10. hyponatremia - due to CKD, diuresis - resolved. 11. iron def anemia, anemia of CKD- appears chronic x 1-2 years. refusing PO iron. explained importance of such. heme occult negative continue Venofer daily while admitted may need ProCrit 12. Candidiasis: Diflucan 100mg PO daily x 7 days total, today is day 7, will stop 13. Facial rash: appears to be contact dermatitis, skin irritated by BIPAP mask patient reports that the exact same rash responded to clotrimazole in the past doubt fungal rash on face but perhaps possible with use of BIPAP mask, DM, on antibiotics will continue Clotrimazole applied BID, as it appears to be improving 14. Chronic Pain: will continue current pain meds. CM sent referrals to [facility] strongly encouraged patient to consider SNF, explained that these may be her only option Continued [facility] stay due to: multiple IV medications needed Discharge planning: home with home health, home with IV medication Continued [facility] stay due to: multiple IV medications needed Discharge planning: home with home health, home with IV medication
[2017-07-15 07:35] VITALS: BP 115/65; PULSE 100; TEMP 36.5; O2SAT 93
[2017-07-15] MEDS: FERROUS SULFATE 325 MG TAB PO SCH ×2 (08:00→17:00)
[2017-07-15 08:30] VITALS: O2SAT 93
[2017-07-15] MEDS: INSULIN ASPART 100 UNITS/ML 3 ML PEN SC SCH ×4 (08:48→21:00)
[2017-07-15] MEDS: EUCERIN CR 120 GM JAR EXT SCH ×2 (08:49→21:00)
[2017-07-15] MEDS: IRON SUCROSE INJ 100 MG in SODIUM CHLORIDE 0.9% 100ML 100 ML IV SCH (08:49)
[2017-07-15] MEDS: BUMETANIDE 1 MG TAB PO SCH ×2 (08:50→19:26)
[2017-07-15] MEDS: DAPTOmycin IV 650 MG in SYRINGE 0 ML IV SCH (08:50)
[2017-07-15] MEDS: GLIMEPIRIDE 2 MG TAB PO SCH (08:53)
[2017-07-15] MEDS: FLUCONAZOLE 100 MG TAB PO SCH (08:53)
--- NOTE | 2017-07-15 20:59 | Progress Note ---
Subjective Date of Service: Jul 15, 2017. Subjective Pt evaluation today including: conversation w/ patient, physical exam, lab review, review of inpatient medication list Pain: less pain in legs PO Intake: adequate Voiding: rodriguez catheter in place patient says that the rash on her face is better eating well, less pain in legs concerned about fluid in stomach discussed discharge options, she is trying to fight [facility] not taking her, says it was their mistake with paperwork discussed that she will need to consider other options Problem List Medical Problems: (1) Acute renal disease Status: Acute (2) Acute renal failure Status: Acute (3) ELIZABETH (acute kidney injury) Status: Acute (4) Cellulitis Status: Acute (5) Cellulitis of both lower extremities Status: Acute (6) CHF (congestive heart failure) Status: Acute (7) CHF (congestive heart failure) Status: Acute (8) Dehydration Status: Acute (9) Fluid overload Status: Acute (10) Hypoxia Status: Acute (11) MRSA (methicillin resistant Staphylococcus aureus) infection Status: Chronic (12) Pickwickian syndrome Status: Acute (13) Pneumonia Status: Acute (14) Respiratory failure Status: Acute (15) Sacral decubitus ulcer, stage III Status: Acute (16) UTI (urinary tract infection) Status: Acute Review of Systems Neurologic: + weakness Skin: + rash, + problem reported (heel ulcers) All Other Systems: Reviewed and Negative Medications Current Inpatient Medications Medications (Trade) Dose Ordered Sig/Bruno Route Start Time Stop Time Status Last Admin Dose Admin Magnesium Hydroxide (Milk Of Magnesia Susp) 30 ml Q6H PRN PO 06/25/17 14:45 07/25/17 14:44 Polyethylene (Miralax Powder Packet) 17 gm DAILY PRN PO 06/25/17 14:45 07/25/17 14:44 Ondansetron HCl (Zofran Inj) 4 mg Q6H PRN IV 06/25/17 14:45 07/25/17 14:44 Multi-Ingredient Ointment (Eucerin Unscented Cr) 1 appln BID EXT 06/25/17 21:00 07/25/17 20:59 07/05/17 21:49 1 APPLN Metolazone (Zaroxolyn Tab) 5 mg TuTh@0830 PO 06/27/17 08:30 07/27/17 08:29 Future Hold 06/27/17 08:24 5 MG Spironolactone (Aldactone Tab) 25 mg DAILY PO 06/26/17 09:00 07/26/17 08:59 Future Hold 06/29/17 08:45 25 MG Insulin Aspart (novoLOG ASPART) SLIDING SCALE If C... ACHS SC 06/25/17 16:30 07/25/17 16:29 07/06/17 21:22 5 UNITS Glucose (Glucose 40% Gel) 15-30 GRAMS 15 GRAMS... UD PRN PO 06/25/17 15:30 07/25/17 15:29 Glucose (Glucose Chew Tab) 4-8 Tablets 4 Tabl... UD PRN PO 06/25/17 15:30 07/25/17 15:29 Dextrose (Dextrose 50% 50ML Syringe) 25-50ML OF 50% DW IV FOR... UD PRN IV 06/25/17 15:30 07/25/17 15:29 Glucagon (Glucagon Inj) 1 mg UD PRN SQ 06/25/17 15:30 07/25/17 15:29 Heparin Sodium (Porcine) (Heparin Sq 5000 Unit/0.5ml) 5,000 unit Q8 SQ 06/25/17 22:00 07/25/17 21:59 Zolpidem Tartrate (Ambien Tab) 5 mg HS PRN PO 06/26/17 21:00 07/25/17 20:59 06/27/17 22:48 5 MG Miconazole Nitrate (Desenex Powder) 1 appln PRN PRN EXT 06/27/17 23:15 07/27/17 23:14 Menthol (Nice Umberto) 1 umberto PRN PRN PO 06/28/17 14:30 07/28/17 14:29 06/28/17 14:30 1 UMBERTO Insulin Glargine (Lantus Solostar Pen) 15 units HS SC 06/28/17 21:00 07/28/17 20:59 07/12/17 21:26 15 UNITS Ferrous Sulfate (Feosol Tab) 325 mg BIDM PO 06/29/17 09:15 07/29/17 09:14 Bumetanide (Bumex Tab) 1 mg BID@0900,1930 PO 06/29/17 19:30 07/29/17 19:29 Future Hold 06/29/17 20:13 1 MG Glimepiride (Amaryl Tab) 2 mg QAM PO 07/01/17 09:00 07/31/17 08:59 07/15/17 08:53 2 MG Heparin Sodium (Porcine) (Heparin 10 Unit/ ml 5 ml Flush) 5 ml PRN PRN FLUSH 06/30/17 19:00 07/30/17 18:59 07/15/17 09:27 5 ML Ergocalciferol (Vitamin D Cap) 50,000 interunit Fr@0900 PO 07/05/17 09:00 08/04/17 08:59 07/12/17 09:07 50,000 INTERUNIT Fluconazole (Diflucan Tab) 100 mg QAM PO 07/06/17 09:00 07/16/17 08:59 07/15/17 08:53 100 MG Iron Sucrose 100 mg/Sodium Chloride 105 ml @ 420 mls/hr DAILY IV 07/07/17 09:00 08/06/17 08:59 07/15/17 08:49 420 MLS/HR Oxycodone HCl (Roxicodone Immediate Rel Tab) 5 mg Q6H PRN PO 07/10/17 03:00 07/24/17 02:59 07/15/17 01:01 5 MG Daptomycin 650 mg/ Syringe 13 ml @ 6.5 mls/min DAILY IV 07/10/17 10:00 07/20/17 09:59 07/15/17 08:50 6.5 MLS/MIN Bumetanide (Bumex Tab) 1 mg BID@0900,1900 PO 07/11/17 19:00 08/10/17 18:59 07/15/17 19:26 1 MG Diphenhydramine HCl (Benadryl Cap) 25 mg HS PRN PO 07/11/17 21:45 08/10/17 21:44 Clotrimazole (Lotrimin 1% Crm) 1 appln BID PRN EXT 07/12/17 14:00 08/11/17 13:59 07/12/17 21:47 1 APPLN Acetaminophen (Tylenol Tab) 650 mg Q6H PRN PO 07/14/17 09:00 08/13/17 08:59 Spironolactone (Aldactone Tab) 25 mg QAM PO 07/16/17 09:00 08/15/17 08:59 Objective Vital Signs Date Time Temp Pulse Resp B/P (MAP) Pulse Ox O2 Delivery O2 Flow Rate FiO2 07/15/17 16:00 Nasal Cannula 3.0 07/15/17 08:30 93 Nasal Cannula 3.0 07/15/17 07:35 36.5 100 20 115/65 (82) 93 Nasal Cannula 3.0 07/15/17 00:00 Nasal Cannula 07/14/17 23:46 108 20 126/64 (84) 89 Nasal Cannula 3.0 07/14/17 21:18 3.0 Physical Exam General Appearance: no apparent distress, + obese Neck: supple, no adenopathy, no JVD, trachea midline Respiratory/Chest: chest non-tender, lungs clear, normal breath sounds, no respiratory distress, no accessory muscle use Cardiovascular: regular rate, rhythm, no edema, no gallop, no JVD, no murmur Abdomen: normal bowel sounds, non tender, soft, no organomegaly Extremities: no pedal edema, no calf tenderness, normal capillary refill, pelvis stable Neurologic/Psychiatric: 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 right heel ulceration with superimposed infection - continue daptomycin for MRSA from culture. PICC placed on 06/30, will need several weeks of Daptomycin, follow up with Dr. Brown follow with wound clinic, right heel excisional debridement performed on 06/28 continues to have adequate pain control IV Daptomycin could be difficult for placement but there are no other options currently Dr. Brown recommends 6 weeks total 2. complicated e. coli UTI due to chronic rodriguez usage - completed 5 days of Rocephin, no further treatment needed 3. acute/chronic right-sided CHF/diastolic CHF - acute component resolved. resume Bumex BID on 07/03 more fluid in abdomen today, will resume Aldactone tomorrow 4. Stage IV CKD due to DM appreciate nephrology consultation patient needs to establish care with dog breeder, will likely need HD in the future Vitamin D low and PTH high discussed with Dr. Nava, will need Venofer daily while here may need Procrit if Hb < 10 and transferrin % > 20 repeat BMP in the morning 5. T2DM, uncontrolled - multiple lengthy discussions held with patient about importance of glycemic control to help promote wound healing, etc. Encouraged basal-bolus insulin. She agreed to the lantus, refusing Novolog and ACHS sugars despite medical advice Amaryl resumed because patient was adamant about using, warned against problems with renal function, she will continue to use on discharge no issues with hypoglycemia, sugars generally high 100's to mid 200's 6. DVT proph - heparin ordered, but patient refusing. she was warned about high risk for DVT due to immobility, still refusing 7. stage IV sacral decubitus ulcer - pt refusing to have this area examined by staff. 8. 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 needs to exchanged prior to discharge. 9. COPD with chronic hypoxic respiratory failure - stable. 10. hyponatremia - due to CKD, diuresis - resolved. 11. iron def anemia, anemia of CKD- appears chronic x 1-2 years. refusing PO iron. explained importance of such. heme occult negative continue Venofer daily while admitted may need ProCrit 12. Candidiasis: Diflucan 100mg PO daily x 7 days total, today is day 7, will stop 13. Facial rash: appears to be contact dermatitis, skin irritated by BIPAP mask patient reports that the exact same rash responded to clotrimazole in the past doubt fungal rash on face but perhaps possible with use of BIPAP mask, DM, on antibiotics responding well to Clotrimazole and benadryl CM sent referrals to [facility] and [place] strongly encouraged patient to consider SNF, explained that these may be her only option Continued [facility] stay due to: multiple IV medications needed Discharge planning: home with home health, home with IV medication
[2017-07-15] MEDS: INSULIN GLARGINE SOLOSTAR 100 UNITS/ML 3 ML PEN SC SCH (21:00)
[2017-07-15 23:45] VITALS: BP 110/62; PULSE 106; TEMP 37.4; O2SAT 89
[2017-07-16] MEDS: OXYCODONE HCL IR 5 MG TAB (IMMEDIATE RELEASE) PO PRN ×2 (03:09→18:11)
[2017-07-16] MEDS: HEPARIN SOD 5000 UNIT/0.5 ML CARP SQ SCH ×3 (05:36→21:10)
[2017-07-16] MEDS: FERROUS SULFATE 325 MG TAB PO SCH ×2 (08:00→17:00)
[2017-07-16 08:27] LABS: HEMATOCRIT 30.6 % (37-47); HEMOGLOBIN 8.6 g/dL (12.0-16.0)
[2017-07-16] MEDS: EUCERIN CR 120 GM JAR EXT SCH ×2 (08:29→21:00)
[2017-07-16 08:47] LABS: CALCIUM 9.2 mg/dl (8.5-10.1); CREATININE 1.98 mg/dl (0.60-1.20); POTASSIUM 4.5 mmol/L (3.5-5.1)
[2017-07-16] MEDS: INSULIN ASPART 100 UNITS/ML 3 ML PEN SC SCH ×4 (09:34→21:00)
[2017-07-16 09:35] VITALS: BP 115/68; PULSE 99; TEMP 36.9; O2SAT 92
[2017-07-16] MEDS: DAPTOmycin IV 650 MG in SYRINGE 0 ML IV SCH (09:36)
[2017-07-16] MEDS: IRON SUCROSE INJ 100 MG in SODIUM CHLORIDE 0.9% 100ML 100 ML IV SCH (09:36)
[2017-07-16] MEDS: BUMETANIDE 1 MG TAB PO SCH ×2 (09:37→19:27)
[2017-07-16] MEDS: SPIRONOLACTONE 25 MG TAB PO SCH (09:37)
[2017-07-16] MEDS: GLIMEPIRIDE 2 MG TAB PO SCH (09:38)
--- NOTE | 2017-07-16 09:58 | Nephrology Progress Note ---
Nephrology Progress Note Date of Service: Jul 16, 2017. Subjective 57 yo female with ckd stage 4 in the setting of diabetes and right sided heart failure and hx of tobacco abuse in the past. pts edema in the legs is much improved. still with chronic rodriguez and chronic antibiotics. pt oob to chair. in good spirits. Objective Date Time Temp Pulse Resp B/P (MAP) Pulse Ox O2 Delivery O2 Flow Rate FiO2 07/16/17 09:35 36.9 99 18 115/68 (84) 92 07/16/17 00:30 Nasal Cannula 3.0 07/15/17 23:45 37.4 106 20 110/62 (78) 89 Nasal Cannula 3.0 07/15/17 22:52 3.0 07/15/17 16:00 Nasal Cannula 3.0 Physical Exam: General-aaox3, obese Eyes-no scleral icterus ENT-mmm Neck-supple Lungs-decreased at bases Heart-tachycardia Abdomen-+pannus, +bs Extremities-mild edema-much improved-right>left, wounds covered Neuro-nonfocal -+rodriguez Current Inpatient Medications Medications (Trade) Dose Ordered Sig/Bruno Route Start Time Stop Time Status Last Admin Dose Admin Magnesium Hydroxide (Milk Of Magnesia Susp) 30 ml Q6H PRN PO 06/25/17 14:45 07/25/17 14:44 Polyethylene (Miralax Powder Packet) 17 gm DAILY PRN PO 06/25/17 14:45 07/25/17 14:44 Ondansetron HCl (Zofran Inj) 4 mg Q6H PRN IV 06/25/17 14:45 07/25/17 14:44 Multi-Ingredient Ointment (Eucerin Unscented Cr) 1 appln BID EXT 06/25/17 21:00 07/25/17 20:59 07/05/17 21:49 1 APPLN Metolazone (Zaroxolyn Tab) 5 mg TuTh@0830 PO 06/27/17 08:30 07/27/17 08:29 Future Hold 06/27/17 08:24 5 MG Spironolactone (Aldactone Tab) 25 mg DAILY PO 06/26/17 09:00 07/26/17 08:59 Future Hold 06/29/17 08:45 25 MG Insulin Aspart (novoLOG ASPART) SLIDING SCALE If C... ACHS SC 06/25/17 16:30 07/25/17 16:29 07/06/17 21:22 5 UNITS Glucose (Glucose 40% Gel) 15-30 GRAMS 15 GRAMS... UD PRN PO 06/25/17 15:30 07/25/17 15:29 Glucose (Glucose Chew Tab) 4-8 Tablets 4 Tabl... UD PRN PO 06/25/17 15:30 07/25/17 15:29 Dextrose (Dextrose 50% 50ML Syringe) 25-50ML OF 50% DW IV FOR... UD PRN IV 06/25/17 15:30 07/25/17 15:29 Glucagon (Glucagon Inj) 1 mg UD PRN SQ 06/25/17 15:30 07/25/17 15:29 Heparin Sodium (Porcine) (Heparin Sq 5000 Unit/0.5ml) 5,000 unit Q8 SQ 06/25/17 22:00 07/25/17 21:59 Zolpidem Tartrate (Ambien Tab) 5 mg HS PRN PO 06/26/17 21:00 07/25/17 20:59 06/27/17 22:48 5 MG Miconazole Nitrate (Desenex Powder) 1 appln PRN PRN EXT 06/27/17 23:15 07/27/17 23:14 Menthol (Nice Umberto) 1 umberto PRN PRN PO 06/28/17 14:30 07/28/17 14:29 06/28/17 14:30 1 UMBERTO Insulin Glargine (Lantus Solostar Pen) 15 units HS SC 06/28/17 21:00 07/28/17 20:59 07/12/17 21:26 15 UNITS Ferrous Sulfate (Feosol Tab) 325 mg BIDM PO 06/29/17 09:15 07/29/17 09:14 Bumetanide (Bumex Tab) 1 mg BID@0900,1930 PO 06/29/17 19:30 07/29/17 19:29 Future Hold 06/29/17 20:13 1 MG Glimepiride (Amaryl Tab) 2 mg QAM PO 07/01/17 09:00 07/31/17 08:59 07/16/17 09:38 2 MG Heparin Sodium (Porcine) (Heparin 10 Unit/ ml 5 ml Flush) 5 ml PRN PRN FLUSH 06/30/17 19:00 07/30/17 18:59 07/15/17 09:27 5 ML Ergocalciferol (Vitamin D Cap) 50,000 interunit Fr@0900 PO 07/05/17 09:00 08/04/17 08:59 07/12/17 09:07 50,000 INTERUNIT Oxycodone HCl (Roxicodone Immediate Rel Tab) 5 mg Q6H PRN PO 07/10/17 03:00 07/24/17 02:59 07/16/17 03:09 5 MG Daptomycin 650 mg/ Syringe 13 ml @ 6.5 mls/min DAILY IV 07/10/17 10:00 07/20/17 09:59 07/16/17 09:36 6.5 MLS/MIN Bumetanide (Bumex Tab) 1 mg BID@0900,1900 PO 07/11/17 19:00 08/10/17 18:59 07/16/17 09:37 1 MG Diphenhydramine HCl (Benadryl Cap) 25 mg HS PRN PO 07/11/17 21:45 08/10/17 21:44 Clotrimazole (Lotrimin 1% Crm) 1 appln BID PRN EXT 07/12/17 14:00 08/11/17 13:59 07/12/17 21:47 1 APPLN Acetaminophen (Tylenol Tab) 650 mg Q6H PRN PO 07/14/17 09:00 08/13/17 08:59 Spironolactone (Aldactone Tab) 25 mg QAM PO 07/16/17 09:00 08/15/17 08:59 07/16/17 09:37 25 MG Last 24 Hours Test 07/15/17 11:20 07/15/17 16:16 07/16/17 07:50 07/16/17 08:02 Bedside Glucose 187 mg/dl 185 mg/dl 127 mg/dl Hemoglobin 8.6 g/dL Hematocrit 30.6 % Sodium Level 138 mmol/L Potassium Level 4.5 mmol/L Chloride Level 105 mmol/L Carbon Dioxide Level 25 mmol/L Anion Gap 8.0 mmol/L Blood Urea Nitrogen 83 mg/dl Creatinine 1.98 mg/dl Est Creatinine Clear Calc Drug Dose 38.1 ml/min Estimated GFR () 31.3 Estimated GFR (Non- 27.0 BUN/Creatinine Ratio 41.8 Random Glucose 113 mg/dl Calcium Level 9.2 mg/dl Magnesium Level 2.2 mg/dl Assessment & Plan ckd stage 4 with proteinuria in setting of diabetes and right sided heart failure requiring appropriate diuretics. volume status stable. continue current diuretics. Iron deficiency anemia-had one gram of iron and to recheck iron sat levels again tomorrow. may be a candidate for procrit although pt a little nervous about potential side effects. will recheck iron sat tomorrow and then discuss further with patient. RONALD: vitamin d levels are low. on 50k units weekly.
--- NOTE | 2017-07-16 15:05 | Infectious Disease Progress Nt ---
Progress Note Date of Service Jul 16, 2017. Subjective Pt evaluation today including: conversation w/ patient, physical exam, chart review, lab review, review of studies, conversation w/ mobile sales consultant, review of inpatient medication list Patient offers no new complaints. Remains afebrile. Leg swelling improved. Tolerating antibiotics without apparent difficulty. All Other Systems: Reviewed and Negative Medications Current Inpatient Medications Medications (Trade) Dose Ordered Sig/Bruno Route Start Time Stop Time Status Last Admin Dose Admin Magnesium Hydroxide (Milk Of Magnesia Susp) 30 ml Q6H PRN PO 06/25/17 14:45 07/25/17 14:44 Polyethylene (Miralax Powder Packet) 17 gm DAILY PRN PO 06/25/17 14:45 07/25/17 14:44 Ondansetron HCl (Zofran Inj) 4 mg Q6H PRN IV 06/25/17 14:45 07/25/17 14:44 Multi-Ingredient Ointment (Eucerin Unscented Cr) 1 appln BID EXT 06/25/17 21:00 07/25/17 20:59 07/05/17 21:49 1 APPLN Metolazone (Zaroxolyn Tab) 5 mg TuTh@0830 PO 06/27/17 08:30 07/27/17 08:29 Future Hold 06/27/17 08:24 5 MG Spironolactone (Aldactone Tab) 25 mg DAILY PO 06/26/17 09:00 07/26/17 08:59 Future Hold 06/29/17 08:45 25 MG Insulin Aspart (novoLOG ASPART) SLIDING SCALE If C... ACHS SC 06/25/17 16:30 07/25/17 16:29 07/06/17 21:22 5 UNITS Glucose (Glucose 40% Gel) 15-30 GRAMS 15 GRAMS... UD PRN PO 06/25/17 15:30 07/25/17 15:29 Glucose (Glucose Chew Tab) 4-8 Tablets 4 Tabl... UD PRN PO 06/25/17 15:30 07/25/17 15:29 Dextrose (Dextrose 50% 50ML Syringe) 25-50ML OF 50% DW IV FOR... UD PRN IV 06/25/17 15:30 07/25/17 15:29 Glucagon (Glucagon Inj) 1 mg UD PRN SQ 06/25/17 15:30 07/25/17 15:29 Heparin Sodium (Porcine) (Heparin Sq 5000 Unit/0.5ml) 5,000 unit Q8 SQ 06/25/17 22:00 07/25/17 21:59 Zolpidem Tartrate (Ambien Tab) 5 mg HS PRN PO 06/26/17 21:00 07/25/17 20:59 06/27/17 22:48 5 MG Miconazole Nitrate (Desenex Powder) 1 appln PRN PRN EXT 06/27/17 23:15 07/27/17 23:14 Menthol (Nice Marko) 1 marko PRN PRN PO 06/28/17 14:30 07/28/17 14:29 06/28/17 14:30 1 MARKO Insulin Glargine (Lantus Solostar Pen) 15 units HS SC 06/28/17 21:00 07/28/17 20:59 07/12/17 21:26 15 UNITS Ferrous Sulfate (Feosol Tab) 325 mg BIDM PO 06/29/17 09:15 07/29/17 09:14 Bumetanide (Bumex Tab) 1 mg BID@0900,1930 PO 06/29/17 19:30 07/29/17 19:29 Future Hold 06/29/17 20:13 1 MG Glimepiride (Amaryl Tab) 2 mg QAM PO 07/01/17 09:00 07/31/17 08:59 07/16/17 09:38 2 MG Heparin Sodium (Porcine) (Heparin 10 Unit/ ml 5 ml Flush) 5 ml PRN PRN FLUSH 06/30/17 19:00 07/30/17 18:59 07/16/17 10:22 5 ML Ergocalciferol (Vitamin D Cap) 50,000 interunit Fr@0900 PO 07/05/17 09:00 08/04/17 08:59 07/12/17 09:07 50,000 INTERUNIT Oxycodone HCl (Roxicodone Immediate Rel Tab) 5 mg Q6H PRN PO 07/10/17 03:00 07/24/17 02:59 07/16/17 03:09 5 MG Daptomycin 650 mg/ Syringe 13 ml @ 6.5 mls/min DAILY IV 07/10/17 10:00 07/20/17 09:59 07/16/17 09:36 6.5 MLS/MIN Bumetanide (Bumex Tab) 1 mg BID@0900,1900 PO 07/11/17 19:00 08/10/17 18:59 07/16/17 09:37 1 MG Diphenhydramine HCl (Benadryl Cap) 25 mg HS PRN PO 07/11/17 21:45 08/10/17 21:44 Clotrimazole (Lotrimin 1% Crm) 1 appln BID PRN EXT 07/12/17 14:00 08/11/17 13:59 07/12/17 21:47 1 APPLN Acetaminophen (Tylenol Tab) 650 mg Q6H PRN PO 07/14/17 09:00 08/13/17 08:59 Spironolactone (Aldactone Tab) 25 mg QAM PO 07/16/17 09:00 08/15/17 08:59 07/16/17 09:37 25 MG Objective Vital Signs Date Time Temp Pulse Resp B/P (MAP) Pulse Ox O2 Delivery O2 Flow Rate FiO2 07/16/17 09:35 36.9 99 18 115/68 (84) 92 07/16/17 08:30 Nasal Cannula 3.0 07/16/17 00:30 Nasal Cannula 3.0 07/15/17 23:45 37.4 106 20 110/62 (78) 89 Nasal Cannula 3.0 07/15/17 22:52 3.0 07/15/17 16:00 Nasal Cannula 3.0 Physical Exam General Appearance: WD/WN, no apparent distress Eyes: normal inspection, EOMI, sclerae normal ENT: normal ENT inspection, pharynx normal Neck: supple, no adenopathy, thyroid normal, trachea midline Respiratory/Chest: chest non-tender, lungs clear, normal breath sounds, no respiratory distress Cardiovascular: regular rate, rhythm, no gallop, no murmur Abdomen: normal bowel sounds, non tender, soft, no organomegaly Extremities: non-tender, no calf tenderness, + pedal edema Neurologic/Psychiatric: alert, oriented x 3 Skin: normal color, + pertinent finding (Wound dressings in place) Lymphatic: no adenopathy Laboratory Results Last 24 Hours Test 07/15/17 16:16 07/16/17 07:50 07/16/17 08:02 07/16/17 11:36 Bedside Glucose 185 mg/dl 127 mg/dl 174 mg/dl Hemoglobin 8.6 g/dL Hematocrit 30.6 % Sodium Level 138 mmol/L Potassium Level 4.5 mmol/L Chloride Level 105 mmol/L Carbon Dioxide Level 25 mmol/L Anion Gap 8.0 mmol/L Blood Urea Nitrogen 83 mg/dl Creatinine 1.98 mg/dl Est Creatinine Clear Calc Drug Dose 38.1 ml/min Estimated GFR () 31.3 Estimated GFR (Non- 27.0 BUN/Creatinine Ratio 41.8 Random Glucose 113 mg/dl Calcium Level 9.2 mg/dl Magnesium Level 2.2 mg/dl Assessment and Plan 57-year-old female with right leg heel ulcerations with MRSA, being treated with daptomycin. Plan for 6 week course of IV antibiotics. Has completed treatment for E coli urinary tract infection, no obvious recurrence of symptoms. Will continue to follow while in hospital.
[2017-07-16 15:23] VITALS: BP 108/67; PULSE 97; TEMP 37.1; O2SAT 97
[2017-07-16 16:08] VITALS: O2SAT 97
--- NOTE | 2017-07-16 20:54 | Progress Note ---
Subjective Date of Service: Jul 16, 2017. Subjective Pt evaluation today including: conversation w/ patient, physical exam, lab review, review of inpatient medication list Pain: controlled PO Intake: adequate Voiding: rodriguez catheter in place patient doing well, no new complaints discussed discharge situation, still no acceptance she is seeking legal librarian to help her with her outstanding bill reviewed labs, Hb 8.6 and Cr 1.98 Problem List Medical Problems: (1) Acute renal disease Status: Acute (2) Acute renal failure Status: Acute (3) ELIZABETH (acute kidney injury) Status: Acute (4) Cellulitis Status: Acute (5) Cellulitis of both lower extremities Status: Acute (6) CHF (congestive heart failure) Status: Acute (7) CHF (congestive heart failure) Status: Acute (8) Dehydration Status: Acute (9) Fluid overload Status: Acute (10) Hypoxia Status: Acute (11) MRSA (methicillin resistant Staphylococcus aureus) infection Status: Chronic (12) Pickwickian syndrome Status: Acute (13) Pneumonia Status: Acute (14) Respiratory failure Status: Acute (15) Sacral decubitus ulcer, stage III Status: Acute (16) UTI (urinary tract infection) Status: Acute Review of Systems Constitutional: + weakness, + fatigue Skin: + rash (around mouth, better) All Other Systems: Reviewed and Negative Medications Current Inpatient Medications Medications (Trade) Dose Ordered Sig/Bruno Route Start Time Stop Time Status Last Admin Dose Admin Magnesium Hydroxide (Milk Of Magnesia Susp) 30 ml Q6H PRN PO 06/25/17 14:45 07/25/17 14:44 Polyethylene (Miralax Powder Packet) 17 gm DAILY PRN PO 06/25/17 14:45 07/25/17 14:44 Ondansetron HCl (Zofran Inj) 4 mg Q6H PRN IV 06/25/17 14:45 07/25/17 14:44 Multi-Ingredient Ointment (Eucerin Unscented Cr) 1 appln BID EXT 06/25/17 21:00 07/25/17 20:59 07/05/17 21:49 1 APPLN Metolazone (Zaroxolyn Tab) 5 mg TuTh@0830 PO 06/27/17 08:30 07/27/17 08:29 Future Hold 06/27/17 08:24 5 MG Spironolactone (Aldactone Tab) 25 mg DAILY PO 06/26/17 09:00 07/26/17 08:59 Future Hold 06/29/17 08:45 25 MG Insulin Aspart (novoLOG ASPART) SLIDING SCALE If C... ACHS SC 06/25/17 16:30 07/25/17 16:29 07/06/17 21:22 5 UNITS Glucose (Glucose 40% Gel) 15-30 GRAMS 15 GRAMS... UD PRN PO 06/25/17 15:30 07/25/17 15:29 Glucose (Glucose Chew Tab) 4-8 Tablets 4 Tabl... UD PRN PO 06/25/17 15:30 07/25/17 15:29 Dextrose (Dextrose 50% 50ML Syringe) 25-50ML OF 50% DW IV FOR... UD PRN IV 06/25/17 15:30 07/25/17 15:29 Glucagon (Glucagon Inj) 1 mg UD PRN SQ 06/25/17 15:30 07/25/17 15:29 Heparin Sodium (Porcine) (Heparin Sq 5000 Unit/0.5ml) 5,000 unit Q8 SQ 06/25/17 22:00 07/25/17 21:59 Zolpidem Tartrate (Ambien Tab) 5 mg HS PRN PO 06/26/17 21:00 07/25/17 20:59 06/27/17 22:48 5 MG Miconazole Nitrate (Desenex Powder) 1 appln PRN PRN EXT 06/27/17 23:15 07/27/17 23:14 Menthol (Nice Umberto) 1 umberto PRN PRN PO 06/28/17 14:30 07/28/17 14:29 06/28/17 14:30 1 UMBERTO Insulin Glargine (Lantus Solostar Pen) 15 units HS SC 06/28/17 21:00 07/28/17 20:59 07/12/17 21:26 15 UNITS Ferrous Sulfate (Feosol Tab) 325 mg BIDM PO 06/29/17 09:15 07/29/17 09:14 Bumetanide (Bumex Tab) 1 mg BID@0900,1930 PO 06/29/17 19:30 07/29/17 19:29 Future Hold 06/29/17 20:13 1 MG Glimepiride (Amaryl Tab) 2 mg QAM PO 07/01/17 09:00 07/31/17 08:59 07/16/17 09:38 2 MG Heparin Sodium (Porcine) (Heparin 10 Unit/ ml 5 ml Flush) 5 ml PRN PRN FLUSH 06/30/17 19:00 07/30/17 18:59 07/16/17 10:22 5 ML Ergocalciferol (Vitamin D Cap) 50,000 interunit Fr@0900 PO 07/05/17 09:00 08/04/17 08:59 07/12/17 09:07 50,000 INTERUNIT Oxycodone HCl (Roxicodone Immediate Rel Tab) 5 mg Q6H PRN PO 07/10/17 03:00 07/24/17 02:59 07/16/17 18:11 5 MG Daptomycin 650 mg/ Syringe 13 ml @ 6.5 mls/min DAILY IV 07/10/17 10:00 07/20/17 09:59 07/16/17 09:36 6.5 MLS/MIN Bumetanide (Bumex Tab) 1 mg BID@0900,1900 PO 07/11/17 19:00 08/10/17 18:59 07/16/17 19:27 1 MG Diphenhydramine HCl (Benadryl Cap) 25 mg HS PRN PO 07/11/17 21:45 08/10/17 21:44 Clotrimazole (Lotrimin 1% Crm) 1 appln BID PRN EXT 07/12/17 14:00 08/11/17 13:59 07/12/17 21:47 1 APPLN Acetaminophen (Tylenol Tab) 650 mg Q6H PRN PO 07/14/17 09:00 08/13/17 08:59 Spironolactone (Aldactone Tab) 25 mg QAM PO 07/16/17 09:00 08/15/17 08:59 07/16/17 09:37 25 MG Objective Vital Signs Date Time Temp Pulse Resp B/P (MAP) Pulse Ox O2 Delivery O2 Flow Rate FiO2 07/16/17 16:08 97 Nasal Cannula 3.0 07/16/17 15:23 37.1 97 20 108/67 (81) 97 Nasal Cannula 4.0 07/16/17 09:35 36.9 99 18 115/68 (84) 92 07/16/17 08:30 Nasal Cannula 3.0 07/16/17 00:30 Nasal Cannula 3.0 07/15/17 23:45 37.4 106 20 110/62 (78) 89 Nasal Cannula 3.0 07/15/17 22:52 3.0 Physical Exam General Appearance: no apparent distress, + obese Neck: supple, no adenopathy, no JVD, trachea midline Respiratory/Chest: chest non-tender, lungs clear, normal breath sounds, no respiratory distress, no accessory muscle use Cardiovascular: regular rate, rhythm, no edema, no gallop, no JVD, no murmur Abdomen: normal bowel sounds, non tender, soft, no organomegaly Extremities: normal range of motion, non-tender, no pedal edema, no calf tenderness, pelvis stable, + inflammation, + swelling Neurologic/Psychiatric: information systems technician II-XII nml as tested, alert, normal mood/affect, oriented x 3, + motor weakness Skin: + rash (dry, scaling, mild erythema around mouth, chronic heel and sacral ulcers) Laboratory Results Last 24 Hours Test 07/16/17 07:50 07/16/17 08:02 07/16/17 11:36 07/16/17 16:22 Bedside Glucose 127 mg/dl 174 mg/dl 150 mg/dl Hemoglobin 8.6 g/dL Hematocrit 30.6 % Sodium Level 138 mmol/L Potassium Level 4.5 mmol/L Chloride Level 105 mmol/L Carbon Dioxide Level 25 mmol/L Anion Gap 8.0 mmol/L Blood Urea Nitrogen 83 mg/dl Creatinine 1.98 mg/dl Est Creatinine Clear Calc Drug Dose 38.1 ml/min Estimated GFR () 31.3 Estimated GFR (Non- 27.0 BUN/Creatinine Ratio 41.8 Random Glucose 113 mg/dl Calcium Level 9.2 mg/dl Magnesium Level 2.2 mg/dl Assessment and Plan 57yo female - 1. right heel ulceration with superimposed infection - continue daptomycin for MRSA from culture. PICC placed on 06/30, will need several weeks of Daptomycin, follow up with Dr. Brown follow with wound clinic, right heel excisional debridement performed on 06/28 continues to have adequate pain control IV Daptomycin could be difficult for placement but there are no other options currently Dr. Brown recommends 6 weeks total d/w pharmacy, will check a CK level in the AM and then every week for 3 weeks 2. complicated e. coli UTI due to chronic rodriguez usage - completed 5 days of Rocephin, no further treatment needed 3. acute/chronic right-sided CHF/diastolic CHF - acute component resolved. resume Bumex BID on 07/03 more fluid in abdomen, resumed Aldactone 25mg daily on 07/16, watch renal function 4. Stage IV CKD due to DM appreciate nephrology consultation patient needs to establish care with tap out operator, will likely need HD in the future Vitamin D low and PTH high stop daily Venofer may need Procrit if Hb < 10 and transferrin % > 20 Cr is 1.98 5. T2DM, uncontrolled - multiple lengthy discussions held with patient about importance of glycemic control to help promote wound healing, etc. Encouraged basal-bolus insulin. She agreed to the lantus, refusing Novolog and ACHS sugars despite medical advice Amaryl resumed because patient was adamant about using, warned against problems with renal function, she will continue to use on discharge no issues with hypoglycemia, sugars generally high 100's to mid 200's 6. DVT proph - heparin ordered, but patient refusing. she was warned about high risk for DVT due to immobility, still refusing 7. stage IV sacral decubitus ulcer - changed by delivery and installation subcontractor 8. 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 needs to exchanged prior to discharge. 9. COPD with chronic hypoxic respiratory failure - stable. 10. hyponatremia - due to CKD, diuresis - resolved. 11. iron def anemia, anemia of CKD- appears chronic x 1-2 years. heme occult negative received 2 weeks worth of Venofer, stopped today may need ProCrit going forward, her Hb is 8.6, stable 12. Candidiasis: Diflucan 100mg PO daily x 7 days total 13. Facial rash: appears to be contact dermatitis, skin irritated by BIPAP mask patient reports that the exact same rash responded to clotrimazole in the past doubt fungal rash on face but perhaps possible with use of BIPAP mask, DM, on antibiotics responding well to Clotrimazole and benadryl, will continue for now [facility] cannot accept, awaiting decision tomorrow from [facility] patient wants to try to fight [facility] not taking her she is speaking with social group worker at [facility] Continued [facility] stay due to: multiple IV medications needed Discharge planning: home with home health, home with IV medication
[2017-07-16] MEDS: INSULIN GLARGINE SOLOSTAR 100 UNITS/ML 3 ML PEN SC SCH (21:00)
[2017-07-17] VITALS: O2SAT 97
[2017-07-17] MEDS: HEPARIN SOD 5000 UNIT/0.5 ML CARP SQ SCH ×2 (04:56→13:15)
[2017-07-17] MEDS: FERROUS SULFATE 325 MG TAB PO SCH ×2 (08:42→17:00)
[2017-07-17 08:56] VITALS: BP 111/75; PULSE 106; TEMP 36.7; O2SAT 89
[2017-07-17] MEDS: INSULIN ASPART 100 UNITS/ML 3 ML PEN SC SCH ×4 (08:57→18:48)
[2017-07-17] MEDS: EUCERIN CR 120 GM JAR EXT SCH ×2 (09:00→18:48)
[2017-07-17] MEDS: DAPTOmycin IV 650 MG in SYRINGE 0 ML IV SCH (09:13)
[2017-07-17] MEDS: BUMETANIDE 1 MG TAB PO SCH ×2 (09:14→18:47)
[2017-07-17] MEDS: GLIMEPIRIDE 2 MG TAB PO SCH (09:14)
[2017-07-17] MEDS: SPIRONOLACTONE 25 MG TAB PO SCH (09:15)
[2017-07-17 10:14] LABS: TRANSFERRIN 212 mg/dl (200-360)
[2017-07-17 15:56] VITALS: BP 102/60; PULSE 103; TEMP 37.3; O2SAT 87
[2017-07-17 16:09] VITALS: O2SAT 97
--- NOTE | 2017-07-17 17:43 | Progress Note ---
Subjective Date of Service: Jul 17, 2017. Subjective Pt evaluation today including: conversation w/ patient, physical exam, lab review, review of inpatient medication list Pain: controlled PO Intake: adequate, getting tired of food here at the hospital Voiding: rodriguez catheter in place patient laying in bed, no distress, breathing comfortably concerned about more fluid in her abdomen, says that this is what her fluid was like on admission discussed trying a single dose of Zaroxolyn to see if she responds iron saturation % low, would benefit from ProCrit she says she is leary of taking a hormone, explained that it's role is to promote RBC production, she will consider it talked with RN, the patient will not let any nurse examine her sacral decubitus , optifoam in place for over a week patient refusing Lantus, Novolog, Heparin no luck with placement or home nursing to assist with wound care Problem List Medical Problems: (1) Acute renal disease Status: Acute (2) Acute renal failure Status: Acute (3) ELIZABETH (acute kidney injury) Status: Acute (4) Cellulitis Status: Acute (5) Cellulitis of both lower extremities Status: Acute (6) CHF (congestive heart failure) Status: Acute (7) CHF (congestive heart failure) Status: Acute (8) Dehydration Status: Acute (9) Fluid overload Status: Acute (10) Hypoxia Status: Acute (11) MRSA (methicillin resistant Staphylococcus aureus) infection Status: Chronic (12) Pickwickian syndrome Status: Acute (13) Pneumonia Status: Acute (14) Respiratory failure Status: Acute (15) Sacral decubitus ulcer, stage III Status: Acute (16) UTI (urinary tract infection) Status: Acute Review of Systems Constitutional: + weakness, + fatigue Cardiac: + edema Skin: + rash (around mouth, legs) All Other Systems: Reviewed and Negative Medications Current Inpatient Medications Medications (Trade) Dose Ordered Sig/Bruno Route Start Time Stop Time Status Last Admin Dose Admin Magnesium Hydroxide (Milk Of Magnesia Susp) 30 ml Q6H PRN PO 06/25/17 14:45 07/25/17 14:44 Polyethylene (Miralax Powder Packet) 17 gm DAILY PRN PO 06/25/17 14:45 07/25/17 14:44 Ondansetron HCl (Zofran Inj) 4 mg Q6H PRN IV 06/25/17 14:45 07/25/17 14:44 Multi-Ingredient Ointment (Eucerin Unscented Cr) 1 appln BID EXT 06/25/17 21:00 07/25/17 20:59 07/05/17 21:49 1 APPLN Spironolactone (Aldactone Tab) 25 mg DAILY PO 06/26/17 09:00 07/26/17 08:59 Future Hold 06/29/17 08:45 25 MG Insulin Aspart (novoLOG ASPART) SLIDING SCALE If C... ACHS SC 06/25/17 16:30 07/25/17 16:29 07/06/17 21:22 5 UNITS Glucose (Glucose 40% Gel) 15-30 GRAMS 15 GRAMS... UD PRN PO 06/25/17 15:30 07/25/17 15:29 Glucose (Glucose Chew Tab) 4-8 Tablets 4 Tabl... UD PRN PO 06/25/17 15:30 07/25/17 15:29 Dextrose (Dextrose 50% 50ML Syringe) 25-50ML OF 50% DW IV FOR... UD PRN IV 06/25/17 15:30 07/25/17 15:29 Glucagon (Glucagon Inj) 1 mg UD PRN SQ 06/25/17 15:30 07/25/17 15:29 Zolpidem Tartrate (Ambien Tab) 5 mg HS PRN PO 06/26/17 21:00 07/25/17 20:59 06/27/17 22:48 5 MG Miconazole Nitrate (Desenex Powder) 1 appln PRN PRN EXT 06/27/17 23:15 07/27/17 23:14 Menthol (Nice Umberto) 1 umberto PRN PRN PO 06/28/17 14:30 07/28/17 14:29 06/28/17 14:30 1 UMBERTO Ferrous Sulfate (Feosol Tab) 325 mg BIDM PO 06/29/17 09:15 07/29/17 09:14 Glimepiride (Amaryl Tab) 2 mg QAM PO 07/01/17 09:00 07/31/17 08:59 07/17/17 09:14 2 MG Heparin Sodium (Porcine) (Heparin 10 Unit/ ml 5 ml Flush) 5 ml PRN PRN FLUSH 06/30/17 19:00 07/30/17 18:59 07/17/17 09:13 5 ML Ergocalciferol (Vitamin D Cap) 50,000 interunit Fr@0900 PO 07/05/17 09:00 08/04/17 08:59 07/12/17 09:07 50,000 INTERUNIT Oxycodone HCl (Roxicodone Immediate Rel Tab) 5 mg Q6H PRN PO 07/10/17 03:00 07/24/17 02:59 07/16/17 18:11 5 MG Daptomycin 650 mg/ Syringe 13 ml @ 6.5 mls/min DAILY IV 07/10/17 10:00 07/20/17 09:59 07/17/17 09:13 6.5 MLS/MIN Bumetanide (Bumex Tab) 1 mg BID@0900,1900 PO 07/11/17 19:00 08/10/17 18:59 07/17/17 09:14 1 MG Diphenhydramine HCl (Benadryl Cap) 25 mg HS PRN PO 07/11/17 21:45 08/10/17 21:44 Clotrimazole (Lotrimin 1% Crm) 1 appln BID PRN EXT 07/12/17 14:00 08/11/17 13:59 07/12/17 21:47 1 APPLN Acetaminophen (Tylenol Tab) 650 mg Q6H PRN PO 07/14/17 09:00 08/13/17 08:59 Spironolactone (Aldactone Tab) 25 mg QAM PO 07/16/17 09:00 08/15/17 08:59 07/17/17 09:15 25 MG Objective Vital Signs Date Time Temp Pulse Resp B/P (MAP) Pulse Ox O2 Delivery O2 Flow Rate FiO2 07/17/17 15:56 37.3 103 20 102/60 (74) 87 Nasal Cannula 4.0 07/17/17 08:56 36.7 106 20 111/75 (87) 89 Nasal Cannula 4.0 07/17/17 08:00 Nasal Cannula 3.0 07/17/17 00:00 97 Nasal Cannula 3.0 Physical Exam General Appearance: no apparent distress, + obese Eyes: normal inspection, EOMI, sclerae normal ENT: normal ENT inspection, hearing grossly normal, pharynx normal Neck: supple, no adenopathy, no JVD, trachea midline Respiratory/Chest: chest non-tender, no respiratory distress, no accessory muscle use, + decreased breath sounds (bases) Cardiovascular: regular rate, rhythm, no edema, no gallop, no JVD, no murmur Abdomen: normal bowel sounds, non tender, soft, no organomegaly, + pertinent finding (significant ascites) Extremities: no pedal edema, no calf tenderness, normal capillary refill, pelvis stable Neurologic/Psychiatric: oxygen therapist II-XII nml as tested, alert, normal mood/affect, oriented x 3, + motor weakness Skin: + rash (perioral, resolving) Laboratory Results Last 24 Hours Test 07/17/17 08:47 07/17/17 09:27 07/17/17 11:33 Bedside Glucose 148 mg/dl 225 mg/dl Iron Level 32 mcg/dl Total Iron Binding Capacity 261 mcg/dl Transferrin 212 mg/dl Transferrin % Saturation 11 % Total Creatine Kinase 23 U/L Assessment and Plan 57yo female - 1. right heel ulceration with superimposed infection - continue daptomycin for MRSA from culture. PICC placed on 06/30, will need several weeks of Daptomycin, follow up with Dr. Brown follow with wound clinic, right heel excisional debridement performed on 06/28 continues to have adequate pain control IV Daptomycin could be difficult for placement but there are no other options currently Dr. Brown recommends 6 weeks total, received 3 weeks thus far CK level normal today at 23 repeat once weekly 2. complicated e. coli UTI due to chronic rodriguez usage - completed 5 days of Rocephin, no further treatment needed 3. acute/chronic right-sided CHF/diastolic CHF - acute component resolved. resume Bumex BID on 07/03 more fluid in abdomen, resumed Aldactone 25mg daily on 07/16 still with fluid in abdomen but legs okay will try Zaroxolyn 5mg one dose this evening prior to Bumex 4. Stage IV CKD due to DM appreciate nephrology consultation patient needs to establish care with plate grainer apprentice, will likely need HD in the future Vitamin D low and PTH high Cr 1.98 on last check 5. T2DM, uncontrolled - multiple lengthy discussions held with patient about importance of glycemic control to help promote wound healing, etc. Encouraged basal-bolus insulin. refusing Lantus Amaryl resumed because patient was adamant about using, warned against problems with renal function, she will continue to use on discharge no issues with hypoglycema, sugars generally high 6. DVT proph - heparin ordered, but patient refusing. she was warned about high risk for DVT due to immobility, still refusing heparin order discontinued since she refuses every day 7. stage IV sacral decubitus ulcer - patient needs to have changed 8. 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 needs to exchanged prior to discharge. 9. COPD with chronic hypoxic respiratory failure - stable. 10. hyponatremia - due to CKD, diuresis - resolved. 11. iron def anemia, anemia of CKD- appears chronic x 1-2 years. heme occult negative received 2 weeks worth of Venofer, stopped on 07.16 may need ProCrit going forward, her Hb is 8.6, stable 12. Candidiasis: Diflucan 50mg PO daily 13. Facial rash: appears to be contact dermatitis, skin irritated by BIPAP mask patient reports that the exact same rash responded to clotrimazole in the past doubt fungal rash on face but perhaps possible with use of BIPAP mask, DM, on antibiotics responding well to Clotrimazole and benadryl, will continue for now still no solution for discharge plans since every SNF has refused to accept her and home nursing unable to take care of her unsure at this time of discharge Continued [facility] stay due to: multiple IV medications needed Discharge planning: home with home health, home with IV medication
[2017-07-17] MEDS ORDERED: METOLAZONE 5 MG TAB PO ONE (18:30)
[2017-07-17] MEDS: OXYCODONE HCL IR 5 MG TAB (IMMEDIATE RELEASE) PO PRN (19:55)
[2017-07-18 00:32] VITALS: BP 127/52; PULSE 106; TEMP 37.6; O2SAT 89
[2017-07-18] MEDS: OXYCODONE HCL IR 5 MG TAB (IMMEDIATE RELEASE) PO PRN (05:14)
[2017-07-18 06:02] LABS: HEMATOCRIT 30.6 % (37-47)
[2017-07-18 06:35] LABS: CALCIUM 8.8 mg/dl (8.5-10.1); CREATININE 2.04 mg/dl (0.60-1.20); POTASSIUM 4.3 mmol/L (3.5-5.1)
[2017-07-18 08:25] VITALS: BP 134/64; PULSE 69; TEMP 37.1; O2SAT 90
[2017-07-18] MEDS: INSULIN ASPART 100 UNITS/ML 3 ML PEN SC SCH ×4 (08:33→19:53)
[2017-07-18] MEDS: FERROUS SULFATE 325 MG TAB PO SCH ×2 (08:34→17:00)
[2017-07-18] MEDS: EUCERIN CR 120 GM JAR EXT SCH ×2 (08:34→19:52)
[2017-07-18] MEDS: DAPTOmycin IV 650 MG in SYRINGE 0 ML IV SCH (08:41)
[2017-07-18] MEDS: GLIMEPIRIDE 2 MG TAB PO SCH (08:41)
[2017-07-18] MEDS: BUMETANIDE 1 MG TAB PO SCH ×2 (08:42→19:17)
[2017-07-18] MEDS: SPIRONOLACTONE 25 MG TAB PO SCH (08:42)
[2017-07-18] MEDS: FLUCONAZOLE 50 MG TAB PO SCH (08:43)
[2017-07-18 09:20] LABS: MEAN CORPUSCULAR HEMOGLOBIN 23.2 pg (25-34); MEAN PLATELET VOLUME 10.7 fL (7.4-10.4); PLATELET COUNT 179 K/uL (130-400); RED CELL DISTRIBUTION WIDTH SD 74.5 fL (36.4-46.3); WHITE BLOOD COUNT 7.85 K/uL (4.8-10.8)
[2017-07-18 09:47] LABS: BASO % 0.4 %; BASO ABS # 0.03 K/uL (0-0.2); EOS % 2.2 %; EOS ABS # 0.17 K/uL (0-0.5); IG# 0.02 K/uL (0.00-0.02); LYMPH % 15.2 %; LYMPH ABS # 1.19 K/uL (1.2-3.4); MONO % 10.1 %; MONO ABS # 0.79 K/uL (0.11-0.59); NEUT % 71.8 %; NEUT ABS # 5.65 K/uL (1.4-6.5)
--- NOTE | 2017-07-18 11:26 | DIAGNOSTIC IMAGING REPORT ---
SINGLE VIEW CHEST CLINICAL HISTORY: Dyspnea. Cough. FINDINGS: An AP, portable, upright chest radiograph is compared to study dated 06/25/2017 and correlated with chest CT dated 09/30/15. The examination is degraded by portable technique and patient rotation. A right PICC line is new from previous. The tip of the catheter projects over the SVC. The heart is enlarged and there is atherosclerotic calcification of the thoracic aorta. The pulmonary vasculature is congested. Trace pleural effusions are suspected. There are perihilar airspace opacities, most confluent at the right lung base. No pneumothorax is seen. The skeletal structures are osteopenic. The bony thorax is grossly intact. IMPRESSION: 1. A right-sided PICC line is new from previous. 2. Cardiomegaly with pulmonary vascular congestion. 3. There are perihilar opacities, most confluent at the right lung base. This could represent pulmonary edema and/or superimposed pneumonia. Clinical correlation will be required. 4. Suspect trace pleural effusions. Electronically signed by: Carlyle Garcia M.D. 07/18/2017 11:24 AM Dictated Date/Time: 07/18/2017 11:22 AM
[2017-07-18 12:16] LABS: MEAN CELL VOLUME 79.1 fL (80-100); MEAN CORPUSCULAR HGB CONC 29.4 g/dl (32-36)
--- NOTE | 2017-07-18 13:32 | Progress Note ---
Subjective Date of Service: Jul 18, 2017. Subjective Pt evaluation today including: conversation w/ patient, physical exam, lab review, review of studies, review of inpatient medication list Pain: feet PO Intake: adequate Voiding: rodriguez catheter in place patient feeling okay today, sitting in her wheelchair having a difficult time sleeping in the hospital bed, cannot get comfortable, not tolerating BIPAP low grade temperature over night, patient says she did not feel febrile labs reviewed, Hb stable 9.0, Cr stable, normal WBC CXR reviewed, no signs of pneumonia Problem List Medical Problems: (1) Acute renal disease Status: Acute (2) Acute renal failure Status: Acute (3) ELIZABETH (acute kidney injury) Status: Acute (4) Cellulitis Status: Acute (5) Cellulitis of both lower extremities Status: Acute (6) CHF (congestive heart failure) Status: Acute (7) CHF (congestive heart failure) Status: Acute (8) Dehydration Status: Acute (9) Fluid overload Status: Acute (10) Hypoxia Status: Acute (11) MRSA (methicillin resistant Staphylococcus aureus) infection Status: Chronic (12) Pickwickian syndrome Status: Acute (13) Pneumonia Status: Acute (14) Respiratory failure Status: Acute (15) Sacral decubitus ulcer, stage III Status: Acute (16) UTI (urinary tract infection) Status: Acute Review of Systems Constitutional: + weakness Musculoskeletal: + joint pain (heels) Skin: + rash (perioral) All Other Systems: Reviewed and Negative Medications Current Inpatient Medications Medications (Trade) Dose Ordered Sig/Bruno Route Start Time Stop Time Status Last Admin Dose Admin Magnesium Hydroxide (Milk Of Magnesia Susp) 30 ml Q6H PRN PO 06/25/17 14:45 07/25/17 14:44 Polyethylene (Miralax Powder Packet) 17 gm DAILY PRN PO 06/25/17 14:45 07/25/17 14:44 Ondansetron HCl (Zofran Inj) 4 mg Q6H PRN IV 06/25/17 14:45 07/25/17 14:44 Multi-Ingredient Ointment (Eucerin Unscented Cr) 1 appln BID EXT 06/25/17 21:00 07/25/17 20:59 07/05/17 21:49 1 APPLN Spironolactone (Aldactone Tab) 25 mg DAILY PO 06/26/17 09:00 07/26/17 08:59 Future Hold 06/29/17 08:45 25 MG Insulin Aspart (novoLOG ASPART) SLIDING SCALE If C... ACHS SC 06/25/17 16:30 07/25/17 16:29 07/18/17 12:09 2 UNITS Glucose (Glucose 40% Gel) 15-30 GRAMS 15 GRAMS... UD PRN PO 06/25/17 15:30 07/25/17 15:29 Glucose (Glucose Chew Tab) 4-8 Tablets 4 Tabl... UD PRN PO 06/25/17 15:30 07/25/17 15:29 Dextrose (Dextrose 50% 50ML Syringe) 25-50ML OF 50% DW IV FOR... UD PRN IV 06/25/17 15:30 07/25/17 15:29 Glucagon (Glucagon Inj) 1 mg UD PRN SQ 06/25/17 15:30 07/25/17 15:29 Zolpidem Tartrate (Ambien Tab) 5 mg HS PRN PO 06/26/17 21:00 07/25/17 20:59 06/27/17 22:48 5 MG Miconazole Nitrate (Desenex Powder) 1 appln PRN PRN EXT 06/27/17 23:15 07/27/17 23:14 Menthol (Nice Umberto) 1 umberto PRN PRN PO 06/28/17 14:30 07/28/17 14:29 06/28/17 14:30 1 UMBERTO Ferrous Sulfate (Feosol Tab) 325 mg BIDM PO 06/29/17 09:15 07/29/17 09:14 Glimepiride (Amaryl Tab) 2 mg QAM PO 07/01/17 09:00 07/31/17 08:59 07/18/17 08:41 2 MG Heparin Sodium (Porcine) (Heparin 10 Unit/ ml 5 ml Flush) 5 ml PRN PRN FLUSH 06/30/17 19:00 07/30/17 18:59 07/18/17 08:41 5 ML Ergocalciferol (Vitamin D Cap) 50,000 interunit Fr@0900 PO 07/05/17 09:00 08/04/17 08:59 07/12/17 09:07 50,000 INTERUNIT Oxycodone HCl (Roxicodone Immediate Rel Tab) 5 mg Q6H PRN PO 07/10/17 03:00 07/24/17 02:59 07/18/17 05:14 5 MG Daptomycin 650 mg/ Syringe 13 ml @ 6.5 mls/min DAILY IV 07/10/17 10:00 07/20/17 09:59 07/18/17 08:41 6.5 MLS/MIN Bumetanide (Bumex Tab) 1 mg BID@0900,1900 PO 07/11/17 19:00 08/10/17 18:59 07/18/17 08:42 1 MG Diphenhydramine HCl (Benadryl Cap) 25 mg HS PRN PO 07/11/17 21:45 08/10/17 21:44 07/18/17 01:17 25 MG Clotrimazole (Lotrimin 1% Crm) 1 appln BID PRN EXT 07/12/17 14:00 08/11/17 13:59 07/12/17 21:47 1 APPLN Acetaminophen (Tylenol Tab) 650 mg Q6H PRN PO 07/14/17 09:00 08/13/17 08:59 Spironolactone (Aldactone Tab) 25 mg QAM PO 07/16/17 09:00 08/15/17 08:59 07/18/17 08:42 25 MG Fluconazole (Diflucan Tab) 50 mg QAM PO 07/18/17 09:00 07/28/17 08:59 07/18/17 08:43 50 MG Iron Sucrose 100 mg/Sodium Chloride 105 ml @ 420 mls/hr DAILY IV 07/19/17 09:00 07/28/17 09:14 Objective Vital Signs Date Time Temp Pulse Resp B/P (MAP) Pulse Ox O2 Delivery O2 Flow Rate FiO2 07/18/17 08:25 37.1 69 20 134/64 (87) 90 Room Air 07/18/17 08:00 Nasal Cannula 3.0 07/18/17 00:32 37.6 106 20 127/52 (77) 89 Nasal Cannula 3.0 07/18/17 00:00 Nasal Cannula 3.0 07/17/17 20:30 3.0 07/17/17 16:09 97 Nasal Cannula 3.0 07/17/17 15:56 37.3 103 20 102/60 (74) 87 Nasal Cannula 4.0 Physical Exam General Appearance: no apparent distress, + obese Eyes: normal inspection, EOMI, sclerae normal ENT: normal ENT inspection, hearing grossly normal, pharynx normal Neck: supple, no adenopathy, no JVD, trachea midline Respiratory/Chest: chest non-tender, lungs clear, no respiratory distress, no accessory muscle use, + decreased breath sounds Cardiovascular: regular rate, rhythm, no edema, no gallop, no JVD, no murmur Abdomen: normal bowel sounds, non tender, soft, no organomegaly Extremities: normal range of motion, non-tender, normal inspection, no pedal edema, no calf tenderness, pelvis stable Neurologic/Psychiatric: 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 II-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 nml as tested, no motor/sensory deficits, alert, normal mood/affect, oriented x 3 Skin: + rash (perioral, improved) Lymphatic: no adenopathy Laboratory Results Last 24 Hours Test 07/18/17 05:51 White Blood Count 7.85 K/uL Red Blood Count 3.92 M/uL Hemoglobin 9.0 g/dL Hematocrit 30.6 % Mean Corpuscular Volume 79.1 fL Mean Corpuscular Hemoglobin 23.2 pg Mean Corpuscular Hemoglobin Concent 29.4 g/dl Platelet Count 179 K/uL Mean Platelet Volume 10.7 fL Neutrophils (%) (Auto) 71.8 % Lymphocytes (%) (Auto) 15.2 % Monocytes (%) (Auto) 10.1 % Eosinophils (%) (Auto) 2.2 % Basophils (%) (Auto) 0.4 % Neutrophils # (Auto) 5.65 K/uL Lymphocytes # (Auto) 1.19 K/uL Monocytes # (Auto) 0.79 K/uL Eosinophils # (Auto) 0.17 K/uL Basophils # (Auto) 0.03 K/uL RDW Standard Deviation 74.5 fL RDW Coefficient of Variation 27.0 % Immature Granulocyte % (Auto) 0.3 % Immature Granulocyte # (Auto) 0.02 K/uL Poikilocytosis PRESENT Anisocytosis PRESENT Microcytosis PRESENT Sodium Level 136 mmol/L Potassium Level 4.3 mmol/L Chloride Level 103 mmol/L Carbon Dioxide Level 28 mmol/L Anion Gap 5.0 mmol/L Blood Urea Nitrogen 83 mg/dl Creatinine 2.04 mg/dl Est Creatinine Clear Calc Drug Dose 36.9 ml/min Estimated GFR () 30.2 Estimated GFR (Non- 26.0 BUN/Creatinine Ratio 40.8 Random Glucose 151 mg/dl Calcium Level 8.8 mg/dl Magnesium Level 2.2 mg/dl Assessment and Plan 57yo female - 1. right heel ulceration with superimposed infection - continue daptomycin for MRSA from culture. PICC placed on 06/30, will need several weeks of Daptomycin, follow up with Dr. Brown follow with wound clinic, right heel excisional debridement performed on 06/28 continues to have adequate pain control IV Daptomycin could be difficult for placement but there are no other options currently Dr. Brown recommends 6 weeks total, received 3 weeks thus far CK level normal on 07/17 at 23 repeat once weekly 2. Low grade temperature: normal CXR, normal WBC, already on daptomycin if she has a true fever, will check UA, culture, blood cultures set up for UTI already treated one earlier in the admission 3. acute/chronic right-sided CHF/diastolic CHF - acute component resolved. resume Bumex BID on 07/03 more fluid in abdomen, resumed Aldactone 25mg daily on 07/16 still with fluid in abdomen but legs okay responded well to Zaroxolyn 5mg one dose yesterday evening prior to Bumex will give Zaroxolyn 5mg twice a week prior to Bumex 4. Stage IV CKD due to DM appreciate nephrology consultation patient needs to establish care with gathering machine feeder, will likely need HD in the future Vitamin D low and PTH high Cr 2.0 today 5. T2DM, uncontrolled - multiple lengthy discussions held with patient about importance of glycemic control to help promote wound healing, etc. Encouraged basal-bolus insulin. refusing Lantus Amaryl resumed because patient was adamant about using, warned against problems with renal function, she will continue to use on discharge no issues with hypoglycema, sugars generally high 6. DVT proph - heparin ordered, but patient refusing. she was warned about high risk for DVT due to immobility, still refusing heparin order discontinued since she refuses every day 7. stage IV sacral decubitus ulcer - patient needs to have changed, was seen by wound care earlier in admission 8. 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 needs to exchanged prior to discharge. 9. COPD with chronic hypoxic respiratory failure - stable. 10. hyponatremia - due to CKD, diuresis - resolved. 11. iron def anemia, anemia of CKD- appears chronic x 1-2 years. heme occult negative received 2 weeks worth of Venofer, stopped on 07.16 may need ProCrit going forward, her Hb is 9.0, stable 12. Candidiasis: Diflucan 50mg PO daily 13. Facial rash: appears to be contact dermatitis, skin irritated by BIPAP mask patient reports that the exact same rash responded to clotrimazole in the past doubt fungal rash on face but perhaps possible with use of BIPAP mask, DM, on antibiotics responding well to Clotrimazole and benadryl, will continue for now CM looking into [facility] referral Continued [facility] stay due to: multiple IV medications needed Discharge planning: home with home health, home with IV medication
[2017-07-18 15:24] VITALS: BP 116/61; PULSE 102; TEMP 36.4; O2SAT 91
--- NOTE | 2017-07-18 15:25 | Nephrology Progress Note ---
Nephrology Progress Note Date of Service: Jul 18, 2017. Subjective 57 yo female with ckd stage 4 in the setting of diabetes and right sided heart failure and hx of tobacco abuse in the past. patient reports that her edema is much improved. planning on going to [facility] tomorrow. still with chronic rodriguez and chronic antibiotics. pt oob to chair. she is enjoying a bowl of cereal. denies any chest pain. Objective Date Time Temp Pulse Resp B/P (MAP) Pulse Ox O2 Delivery O2 Flow Rate FiO2 07/18/17 08:25 37.1 69 20 134/64 (87) 90 Room Air 07/18/17 08:00 Nasal Cannula 3.0 07/18/17 00:32 37.6 106 20 127/52 (77) 89 Nasal Cannula 3.0 07/18/17 00:00 Nasal Cannula 3.0 07/17/17 20:30 3.0 07/17/17 16:09 97 Nasal Cannula 3.0 07/17/17 15:56 37.3 103 20 102/60 (74) 87 Nasal Cannula 4.0 Physical Exam: General-aaox3, obese Eyes-no scleral icterus ENT-mmm Neck-with left sided mass-patient followed by PCP-states non cancerous. Lungs: patient refused ausculation Heart-refused ausculation. no longer tachycardic. Abdomen-+pannus, refused ausculation Extremities-mild edema r>l, wounds covered Neuro-nonfocal -+rodriguez Current Inpatient Medications Medications (Trade) Dose Ordered Sig/Bruno Route Start Time Stop Time Status Last Admin Dose Admin Magnesium Hydroxide (Milk Of Magnesia Susp) 30 ml Q6H PRN PO 06/25/17 14:45 07/25/17 14:44 Polyethylene (Miralax Powder Packet) 17 gm DAILY PRN PO 06/25/17 14:45 07/25/17 14:44 Ondansetron HCl (Zofran Inj) 4 mg Q6H PRN IV 06/25/17 14:45 07/25/17 14:44 Multi-Ingredient Ointment (Eucerin Unscented Cr) 1 appln BID EXT 06/25/17 21:00 07/25/17 20:59 07/05/17 21:49 1 APPLN Spironolactone (Aldactone Tab) 25 mg DAILY PO 06/26/17 09:00 07/26/17 08:59 Future Hold 06/29/17 08:45 25 MG Insulin Aspart (novoLOG ASPART) SLIDING SCALE If C... ACHS SC 06/25/17 16:30 07/25/17 16:29 07/18/17 12:09 2 UNITS Glucose (Glucose 40% Gel) 15-30 GRAMS 15 GRAMS... UD PRN PO 06/25/17 15:30 07/25/17 15:29 Glucose (Glucose Chew Tab) 4-8 Tablets 4 Tabl... UD PRN PO 06/25/17 15:30 07/25/17 15:29 Dextrose (Dextrose 50% 50ML Syringe) 25-50ML OF 50% DW IV FOR... UD PRN IV 06/25/17 15:30 07/25/17 15:29 Glucagon (Glucagon Inj) 1 mg UD PRN SQ 06/25/17 15:30 07/25/17 15:29 Zolpidem Tartrate (Ambien Tab) 5 mg HS PRN PO 06/26/17 21:00 07/25/17 20:59 06/27/17 22:48 5 MG Miconazole Nitrate (Desenex Powder) 1 appln PRN PRN EXT 06/27/17 23:15 07/27/17 23:14 Menthol (Nice Umberto) 1 umberto PRN PRN PO 06/28/17 14:30 07/28/17 14:29 06/28/17 14:30 1 UMBERTO Ferrous Sulfate (Feosol Tab) 325 mg BIDM PO 06/29/17 09:15 07/29/17 09:14 Glimepiride (Amaryl Tab) 2 mg QAM PO 07/01/17 09:00 07/31/17 08:59 07/18/17 08:41 2 MG Heparin Sodium (Porcine) (Heparin 10 Unit/ ml 5 ml Flush) 5 ml PRN PRN FLUSH 06/30/17 19:00 07/30/17 18:59 07/18/17 08:41 5 ML Ergocalciferol (Vitamin D Cap) 50,000 interunit Fr@0900 PO 07/05/17 09:00 08/04/17 08:59 07/12/17 09:07 50,000 INTERUNIT Oxycodone HCl (Roxicodone Immediate Rel Tab) 5 mg Q6H PRN PO 07/10/17 03:00 07/24/17 02:59 07/18/17 05:14 5 MG Daptomycin 650 mg/ Syringe 13 ml @ 6.5 mls/min DAILY IV 07/10/17 10:00 07/20/17 09:59 07/18/17 08:41 6.5 MLS/MIN Bumetanide (Bumex Tab) 1 mg BID@0900,1900 PO 07/11/17 19:00 08/10/17 18:59 07/18/17 08:42 1 MG Diphenhydramine HCl (Benadryl Cap) 25 mg HS PRN PO 07/11/17 21:45 08/10/17 21:44 07/18/17 01:17 25 MG Clotrimazole (Lotrimin 1% Crm) 1 appln BID PRN EXT 07/12/17 14:00 08/11/17 13:59 07/12/17 21:47 1 APPLN Acetaminophen (Tylenol Tab) 650 mg Q6H PRN PO 07/14/17 09:00 08/13/17 08:59 Spironolactone (Aldactone Tab) 25 mg QAM PO 07/16/17 09:00 08/15/17 08:59 07/18/17 08:42 25 MG Fluconazole (Diflucan Tab) 50 mg QAM PO 07/18/17 09:00 07/28/17 08:59 07/18/17 08:43 50 MG Iron Sucrose 100 mg/Sodium Chloride 105 ml @ 420 mls/hr DAILY IV 07/19/17 09:00 07/28/17 09:14 Last 24 Hours Test 07/18/17 05:51 07/18/17 11:09 White Blood Count 7.85 K/uL Red Blood Count 3.92 M/uL Hemoglobin 9.0 g/dL Hematocrit 30.6 % Mean Corpuscular Volume 79.1 fL Mean Corpuscular Hemoglobin 23.2 pg Mean Corpuscular Hemoglobin Concent 29.4 g/dl Platelet Count 179 K/uL Mean Platelet Volume 10.7 fL Neutrophils (%) (Auto) 71.8 % Lymphocytes (%) (Auto) 15.2 % Monocytes (%) (Auto) 10.1 % Eosinophils (%) (Auto) 2.2 % Basophils (%) (Auto) 0.4 % Neutrophils # (Auto) 5.65 K/uL Lymphocytes # (Auto) 1.19 K/uL Monocytes # (Auto) 0.79 K/uL Eosinophils # (Auto) 0.17 K/uL Basophils # (Auto) 0.03 K/uL RDW Standard Deviation 74.5 fL RDW Coefficient of Variation 27.0 % Immature Granulocyte % (Auto) 0.3 % Immature Granulocyte # (Auto) 0.02 K/uL Poikilocytosis PRESENT Anisocytosis PRESENT Microcytosis PRESENT Sodium Level 136 mmol/L Potassium Level 4.3 mmol/L Chloride Level 103 mmol/L Carbon Dioxide Level 28 mmol/L Anion Gap 5.0 mmol/L Blood Urea Nitrogen 83 mg/dl Creatinine 2.04 mg/dl Est Creatinine Clear Calc Drug Dose 36.9 ml/min Estimated GFR () 30.2 Estimated GFR (Non- 26.0 BUN/Creatinine Ratio 40.8 Random Glucose 151 mg/dl Calcium Level 8.8 mg/dl Magnesium Level 2.2 mg/dl Bedside Glucose 204 mg/dl Assessment & Plan ckd stage 4 with proteinuria in setting of diabetes and right sided heart failure requiring appropriate diuretics. volume status stable. continue current diuretics. creatinine stable around 2.0. Iron deficiency anemia-had one gram of iron. patient refuses procrit at this time. she states that she is uncomfortable with hormones. she states that she will discuss with her PCP and kidney care provider when she establishes with them. tsat improved minimally from 10 to 11. to begin 100mg IV iron daily while admitted. will continue to monitor. RONALD: vitamin d this month was less than ten with a PTH of 270. on 50k units weekly. Recommend to follow as outpatient. This patient was seen and treated with direct collaboration with Dr. Nava. Thank you for the opportunity to participate in this patient's care. Appreciate the Consult. ATTENDING NOTE: I performed a history and physical examination of the patient, including specifically on history-pt is excited to leave the hospital, on physical exam- mild edema, and my impression and plan are CKD-creatinine stable. Heme-hg levels are below goal. iron sat is low-to restart venofer while in the hospital. 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 I have discussed the patient's management with Pearl Ku PA-C, Please refer to above note for the documented findings and plan of care. Maxime Oncjustine DO
[2017-07-18 16:03] VITALS: O2SAT 97
[2017-07-19] VITALS: BP 118/77; PULSE 105; TEMP 36.7; O2SAT 90
[2017-07-19] MEDS: FERROUS SULFATE 325 MG TAB PO SCH (08:00)
[2017-07-19 08:13] VITALS: BP 124/77; PULSE 102; TEMP 37; O2SAT 90
[2017-07-19] MEDS: EUCERIN CR 120 GM JAR EXT SCH (08:17)
[2017-07-19] MEDS: GLIMEPIRIDE 2 MG TAB PO SCH (08:19)
[2017-07-19] MEDS: ERGOCALCIFEROL 50,000 INTER.UNIT CAP PO SCH (08:19)
[2017-07-19] MEDS: FLUCONAZOLE 50 MG TAB PO SCH (08:19)
[2017-07-19] MEDS: BUMETANIDE 1 MG TAB PO SCH (08:19)
[2017-07-19] MEDS: SPIRONOLACTONE 25 MG TAB PO SCH (08:19)
[2017-07-19] MEDS: INSULIN ASPART 100 UNITS/ML 3 ML PEN SC SCH ×2 (08:24→12:27)
[2017-07-19] MEDS ORDERED: IRON SUCROSE INJ 100 MG in SODIUM CHLORIDE 0.9% 100ML 100 ML IV SCH (09:00)
[2017-07-19] MEDS ORDERED: DIPH25CA5 PO (09:12)
[2017-07-19] MEDS ORDERED: DFL50 PO (09:12)
[2017-07-19] MEDS ORDERED: ERGO500011 PO (09:12)
[2017-07-19] MEDS ORDERED: RXC5 PO (09:12)
[2017-07-19] MEDS ORDERED: LTRCR45 EXT (09:12)
[2017-07-19] MEDS ORDERED: DAPT500I IV (09:13)
--- NOTE | 2017-07-19 09:29 | Discharge Instructions ---
Discharge Instructions Date of Service Jul 19, 2017. Admission Reason for Admission: Mrsa Lower Extremity Wounds Discharge Discharge Diagnosis / Problem: MRSA heel ulcers, DM, CKD stage IV, iron deficiency Discharge Goals Goal(s): Decrease discomfort, Improve disease control Activity Recommendations Activity Level: Assistance Required Therapies: Physical Therapy, Occupational Therapy Weightbearing Status: Left weightbearing (as tolerated), Right weightbearing ( as tolerated) Lifting Limitations: none Exercise/Sports Limitations: as tolerated Shower/Bathe: no limitations . Additional Information Patient informed of condition: Yes Advance Directives: No DNR: No Level of Care: Acute Rehab Communicable Disease: No Prognosis: Stable Oxygen at (LPM): 3 liters continuous Rodriguez Catheter: Yes (chronic) Instructions / Follow-Up Instructions / Follow-Up Medications: - DAPTOMYCIN: 650mg IV daily, needs 3 more weeks worth, right PICC line for access - CLOTRIMAZOLE: apply twice a day around mouth and nose for rash, responding well, continue for a week - FLUCONAZOLE: for inguinal candidiasis, responding well but continues to be on antibiotics, continue for another 10 days - ERGOCALCIFEROL: 50,000 units once a week on Saturday, needs 6 more doses - OXYCODONE: as needed every 6 hours for pain MRSA heel wounds with cellulitis: responding well to Daptomycin, needs 3 more weeks at this point check CPK, CMP and CBC once a week should follow up with Dr. Brown in office in 2-3 weeks, prior to stopping treatment to make sure further treatment not needed Wound care instructions: CLEAN ALL OPEN AREAS WITH SALINE. TO OPEN AREAS BOTH HEELS AND LOWER LEGS- COVER WITH AQUACEL AG, GAUZE AND KERLIX. CHANGE EVERYDAY AND NEEDED. TO SACRAL WOUND- FILL WITH NITA. COVER WITH 4X4 ND SECURE WITH OPTIFOAM. CHANGE EVERY SATURDAY, SATURDAY AND SATURDAY. KEEP HEELS OFF BED SURFACE AT ALL TIMES [facility] SCHEDULED RIGHT HEEL ESCHAR: APPLY IODINE DAILY CKD stage IV, due to uncontrolled diabetes Cr has been stable from 1.9 to 2.2 for weeks adequate urine output continue regimen of Bumex BID, Spironolactone and Zaroxolyn 5mg Saturday and 30 minutes prior to morning Bumex volume status stable, electrolytes stable was followed by Dr. Nava during admission, he recommends getting a gang vibrator operator close to her PCP in [place] once she is d/c to home for now, check BMP, Mag and Phos once a week on Mondays Iron deficiency: received two weeks of Venofer infusion, she refuses to take Ferrous sulfate Ferritin stores are now adequate Hb stable at 9.[address] Nava that she will need Procrit infusions in future but not currently needed Vitamin D deficiency: 50,000 units weekly on Saturday for 6 more weeks can then switch to daily supplementation Chronic hypoxia: stable on 3L, wears CPAP at night FOLLOW UP - wound clinic with Dr. Rothman next week, call for appointment - Dr. Brown in 2-3 weeks for follow up on MRSA wounds - PCP in [place] one week after discharge from rehab Current Hospital Diet Patient's current hospital diet: AHA Diet (Heart Healthy), Diabetes Type 2 Diet Discharge Diet Recommended Diet: AHA Diet (Heart Healthy), Diabetes Type 2 Diet Pending Studies Studies pending at discharge: no Physician Orders On Transfer IV Therapy: Daptomycin 650mg IV daily for 21 more days Vital Signs: per protocol Additional Orders: CPK, CMP, Mag, Phos, CBC weekly on Mondays for three weeks rodriguez needs changed every 30 days, due to be changed on 07/22/17 POLST Discussion: without POLST completion Laboratory Results Hemoglobin A1c Test 06/26/17 07:53 Range/Units Estimated Average Glucose 212 mg/dl Hemoglobin A1c 9.0 H 4.5-5.6 % Lipid Panel Test 06/26/17 07:53 Range/Units Triglycerides Level 70 0-150 mg/dl Cholesterol Level 105 0-200 mg/dl HDL Cholesterol 22 mg/dl Cholesterol/HDL Ratio 4.8 LDL Cholesterol, Calculated 69 mg/dl Medical Emergencies . Who to Call and When: Medical Emergencies: If at any time you feel your situation is an emergency, please call 911 immediately. . Non-Emergent Contact Non-Emergency issues call your: Primary Care Provider, Psychiatry Instructor Call Non-Emergent contact if: you have any medication questions . . "Provider Documentation" section prepared by Bill Richye. . Core Measure Problem Core Measures: None [place] Drug Monitoring Program Search Results: no issues identified
[2017-07-19 09:49] VITALS: BP 124/77; PULSE 102; TEMP 37; O2SAT 90
[2017-07-19] MEDS: DAPTOmycin IV 650 MG in SYRINGE 0 ML IV SCH (09:54)
[2017-07-19] MEDS: OXYCODONE HCL IR 5 MG TAB (IMMEDIATE RELEASE) PO PRN (10:18)
--- NOTE | 2017-07-22 11:07 | Discharge Summary ---
Discharge Summary Date of Service Jul 19, 2017. Discharge Summary Admission Date: Jun 25, 2017 at 14:53 Discharge Date: Jul 19, 2017 Discharge Disposition: Rehab Principal Diagnosis: Heel ulcers, MRSA Problems/Secondary Diagnoses: Sacral decubitus Chronic right sided heart failure Chronic diastolic heart failure Stage IV CKD due to DM DM type II, poorly controlled UTI (treatment completed) secondary to chronic rodriguez Inguinal tinea Iron deficiency Anemia secondary to iron deficiency and CKD Vitamin D deficiency Procedures: Wound care Consultations: Infectious disease Nephrology Cardiology Wound care Medication Reconciliation New Medications: Daptomycin (Daptomycin) 500 Mg Inj 650 MG IV DAILY for 21 Days, #21 DOSE 0 Refills Clotrimazole (Clotrimazole) 135 Appln/45 Gm Cr 1 APPLN EXT BID PRN for RASH, #1 TUBE 0 Refills around mouth Diphenhydramine Hcl (Benadryl) 25 Mg Cap 25 MG PO HS PRN for Itching, #30 CAP 2 Refills Ergocalciferol (Vitamin D 73206 Unit) 50,000 Unit Cap 27872 INTERUNIT PO Fr@0900, #6 CAP 0 Refills Fluconazole (Fluconazole) 50 Mg Tab 50 MG PO QAM for 10 Days, #10 TAB 0 Refills Oxycodone HCl (Oxycodone HCl) 5 Mg Tab 5 MG PO Q6H PRN for Pain, #60 TAB 0 Refills Continued Medications: Bumetanide (Bumex) 1 Mg Tab 1 TAB PO BID for 90 Days, #180 TAB 1 Refill Eucerin (Hydrocerin) 360 Appln/120 Gm Cr 1 APPLN EXT BID for 30 Days Glimepiride (Glimepiride) 2 Mg Tab 2 MG PO QAM for 30 Days, #30 TAB Home O2 Therapy (Oxygen) Gas 3 LITERS NA CONTINOUS, BTL Metolazone (Metolazone) 5 Mg Tab 5 MG PO TTH for 30 Days, #15 Take 30 min prior to bumex Spironolactone (Aldactone) 25 Mg Tab 25 MG PO QD, TAB Zolpidem Tartrate (Ambien) 5 Mg Tab 1 TAB PO HS for 30 Days, #30 TAB 2 Refills Discontinued Medications: Fluconazole (Diflucan) 100 Mg Tab 1 TAB PO DAILY for Documentation for 10 Days, #10 TAB Levocetirizine Dihydrochloride (Levocetirizine Dihydrochl) 5 Mg Tab 0.5 MG PO DAILY PRN for Itching for 30 Days, #30 TAB 3 Refills Oxycodone HCl (Oxycodone HCl) 5 Mg Tab 10 MG PO Q8 PRN for Pain for 3 Days, #18 TABS Oxycodone HCl (Oxycodone HCl) 5 Mg Tab 5 MG PO BID Discharge Exam Patient stable for over two weeks, awaiting placement that was difficult due to inability to find home nursing agency and difficulty finding a SNF. Patient eating well, breathing stable. Chronic pain in heels but reasonable controlled with Oxycodone. Cr has been stable and Hb trending up slowly after Venofer infusions. Review of Systems: Constitutional: + weakness, + fatigue, No fever, No chills, No sweats, No weight loss, No problem reported Eyes: No worsening of vision, No eye pain, No redness, No discharge, No diplopia, No problem reported ENT: No hearing loss, No unusual epistaxis, No nasal symptoms, No sore throat, No tinnitus, No dental problems, No trouble swallowing, No problem reported Respiratory: + dyspnea on exertion, No cough, No sputum, No wheezing, No shortness of breath, No dyspnea at rest, No hemoptysis, No problem reported Cardiovascular: No chest pain, No orthopnea, No PND, No edema, No claudication, No palpitations, No problem reported Abdomen: + problem reported (ascites), No pain, No nausea, No vomiting, No diarrhea, No constipation, No GI bleeding Musculoskeletal: + joint pain (heels, sacrum), No muscle pain, No swelling, No calf pain, No problem reported Genitourinary - Female: + problem reported (rodriguez) Neurologic: + weakness, + balance problems, No memory loss, No paralysis, No numbness/tingling, No vertigo, No problem reported Psychiatric: + insomnia, No depression symptoms, No anhedonism, No anxiety, No substance abuse, No problem reported Endocrine: No fatigue, No excessive thirst, No excessive urination, No problem reported Hematologic / Lymphatic: No abnormal bleeding/bruising, No clotting problems , No swollen lymph nodes, No night sweats, No problem reported Integumentary: No rash, No itch, No new/changing skin lesions, No color change, No bleeding, No problem reported Physical Exam: General Appearance: no apparent distress, + obese Eyes: normal inspection, EOMI, sclerae normal ENT: normal ENT inspection, hearing grossly normal, pharynx normal Neck: supple, no adenopathy, no JVD, trachea midline Respiratory/Chest: chest non-tender, lungs clear, normal breath sounds, no respiratory distress, no accessory muscle use Cardiovascular: regular rate, rhythm, no edema, no gallop, no JVD, no murmur Abdomen / GI: normal bowel sounds, non tender, soft, no organomegaly, + pertinent finding (large amount of fluid in abdomen) Extremities: pelvis stable, + inflammation (heels), + slow capillary refill Neurologic/Psychiatric: study director II-XII nml as tested, alert, normal mood/affect , oriented x 3, + motor weakness (generalized, confined to wheelchair or bed) Skin: + rash (heel wounds bilaterally, sacral decubitus, rash around mough improving) Hospital Course 57yo female - 1. right heel ulceration with superimposed infection - continue daptomycin for MRSA from culture. PICC placed on 06/30 follow with wound clinic weekly, right heel excisional debridement performed on 06/28 continues to have adequate pain control on Oxycodone q6 Dr. Brown recommends 6 weeks total, received 3 weeks thus far 3 more weeks and follow up with Dr. Brown in 2-3 weeks, correlate with wound clinic visit CK level normal on 07/17 at 23 repeat once weekly, ordered on instructions 2. Low grade temperature 07/16: normal CXR, normal WBC, already on daptomycin never had a true fever had E coli UTI treated with Rocephin earlier in the admission 3. acute/chronic right-sided CHF/diastolic CHF - acute component resolved. continue Bumex BID continue Zaroxolyn 5mg Saturday and prior to Bumex in the AM continue Spironolactone 4. 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 T2DM, uncontrolled - multiple lengthy discussions held with patient about importance of glycemic control to help promote wound healing, etc. Encouraged basal-bolus insulin. refusing Lantus, refusing Novolog Amaryl resumed because patient was adamant about using, warned against problems with renal function, she will continue to use on discharge no issues with hypoglycema, sugars generally high and the patient does not seem to care 6. Facial rash: appears to be contact dermatitis, skin irritated by BIPAP mask patient reports that the exact same rash responded to clotrimazole in the past doubt fungal rash on face but perhaps possible with use of BIPAP mask, DM, on antibiotics responded well to Clotrimazole and benadryl, will continue for now 7. stage IV sacral decubitus ulcer - patient needs to have changed, was seen by wound care earlier in admission 8. 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 needs to exchanged prior to discharge. 9. COPD with chronic hypoxic respiratory failure - stable. 10. hyponatremia - due to CKD, diuresis - resolved. 11. iron def anemia, anemia of CKD- appears chronic x 1-2 years. heme occult negative received 2 weeks worth of Venofer, stopped on 07.16 may need ProCrit going forward, her Hb is 9.0, stable 12. Candidiasis: Diflucan 50mg PO daily Accepted to [facility] Total Time Spent: Greater than 30 minutes This includes examination of the patient, discharge planning, medication reconciliation, and communication with other providers. Discharge Instructions Please refer to the electronic Patient Visit Report (Discharge Instructions) for additional information. Follow-Up FOLLOW UP - wound clinic with Dr. Rothman next week, call for appointment - Dr. Brown in 2-3 weeks for follow up on MRSA wounds - PCP in [place] one week after discharge from rehab Additional Copies To Jake Brown MD; [facility]; Parminder Rothman,
--- NOTE | 2017-08-23 07:50 | Wound Clinic Return Visit ---
Wound Clinic Return Visit Date of Service Aug 22, 2017. Subjective The patient presents today for re-evaluation of chronic sacral ulceration with associated osteomyelitis and numerous pressure ulcerations to both lower extremities. The patient denies any specific new systemic complaints. Objective Current Pain Level: 8.0 The patients vital signs were reviewed and found to be unremarkable. The patient is afebrile today. The primary sacral ulceration today shows no appreciable difference other than some increased depth now measuring 4 x 3 x 2.5 cm. No Central slough or surrounding eschar formation noted. There multiple ulcerations on the lower extremities with some scattered slough and eschar formation noted. The right heel ulceration did require debridement intervention due to increased eschar formation slough. All other ulcerations show no appreciable change with minimal enlargement is noted. There is no evidence today of lexa wound erythema, edema, drainage or odor. Assessment 1.: stage IV sacral pressure ulcer 2.: multiple scattered pressure ulcerations of both lower extremities including 3.: both heels Plan At this time the right heel ulceration did require debridement. With the patient's permission after application topical Xylocaine 4% the site was debrided with a #5 curette scissors and forceps. Surrounding eschar and central slough was removed minimal bleeding occurred which was controlled with direct pressure. All sites today including the sacrum will be dressed with Aquacel Ag gauze and optive foam. Dressings changed every other day or as needed when necessary. Patient be reevaluated in 2 weeks. This represented a non-excisional debridement of less than 20 cm. Antibiotic therapy will be continued per Dr. Brown.
[2017-08-26] MEDS ORDERED: CEFE2INJ2 IV (13:35)
== END 2017-07-19 17:08 | DRG 604 ==
LOC: C.EDB 12:44 → C.MS2W 14:53 → ENRESERV 15:15
PROVIDERS: ADMIT Internal Medicine Sports Medicine; ATTEND Internal Medicine
PROC: 0HBNXZZ Excision of Left Foot Skin, External Approach (ICD-10-PCS; principal; 2017-06-28)
DX: S81.809A Unspecified open wound, unspecified lower leg, initial encounter (principal); L89.154 Pressure ulcer of sacral region, stage 4; I50.32 Chronic diastolic (congestive) heart failure; N18.4 Chronic kidney disease, stage 4 (severe); N39.0 Urinary tract infection, site not specified; J96.11 Chronic respiratory failure with hypoxia; E87.1 Hypo-osmolality and hyponatremia; N17.9 Acute kidney failure, unspecified; M86.9 Osteomyelitis, unspecified; B95.62 Methicillin resistant Staphylococcus aureus infection as the cause of diseases classified elsewhere; B35.8 Other dermatophytoses; D50.9 Iron deficiency anemia, unspecified; E55.9 Vitamin D deficiency, unspecified; L97.519 Non-pressure chronic ulcer of other part of right foot with unspecified severity; B96.20 Unspecified Escherichia coli [E. coli] as the cause of diseases classified elsewhere; L25.9 Unspecified contact dermatitis, unspecified cause; R33.9 Retention of urine, unspecified; B37.9 Candidiasis, unspecified; E11.622 Type 2 diabetes mellitus with other skin ulcer; E88.09 Other disorders of plasma-protein metabolism, not elsewhere classified; Z99.81 Dependence on supplemental oxygen; E66.01 Morbid (severe) obesity due to excess calories; F17.200 Nicotine dependence, unspecified, uncomplicated; L89.619 Pressure ulcer of right heel, unspecified stage; E11.69 Type 2 diabetes mellitus with other specified complication; L89.610 Pressure ulcer of right heel, unstageable; L89.620 Pressure ulcer of left heel, unstageable

== ENCOUNTER 2017-09-19 10:43 | Inpatient (IN) | payer OTHER ==
[~2017-09-19] VITALS: Ht 167.6 cm; Wt 112.1 kg
[~2017-09-19 10:43] MED LIST changes: -BMX1 PO; +CEFE2INJ2 IV; +DAPT500I IV; +DFL50 PO; +DIPH25CA5 PO; +ERGO500011 PO; -LEVO-14 PO; +LTRCR45 EXT; -OXYC-609 PO; +RXC5 PO; +ZRX5 PO
[2017-09-19] MEDS ORDERED: FLUC100T4 PO (11:25)
[2017-09-19] MEDS ORDERED: CLOTRIMAZOLE 45 GM TOP (11:35)
[2017-09-19] MEDS ORDERED: OXYC1TAB3 PO (11:35)
[2017-09-19] MEDS ORDERED: DAPT500I IV (11:35)
[2017-09-19] MEDS ORDERED: ERGO500011 PO (11:35)
[2017-09-19] MEDS ORDERED: GLIM2TAB2 PO (11:38)
[2017-09-19 12:11] LABS: BASO % 0.2 %; BASO ABS # 0.02 K/uL (0-0.2); EOS % 1.1 %; EOS ABS # 0.11 K/uL (0-0.5); HEMOGLOBIN 10.1 g/dL (12.0-16.0); IG# 0.03 K/uL (0.00-0.02); LYMPH % 6.9 %; LYMPH ABS # 0.67 K/uL (1.2-3.4); MEAN CELL VOLUME 82.7 fL (80-100); MEAN CORPUSCULAR HEMOGLOBIN 25.3 pg (25-34); MEAN CORPUSCULAR HGB CONC 30.6 g/dl (32-36); MONO % 6.8 %; MONO ABS # 0.66 K/uL (0.11-0.59); NEUT % 84.7 %; NEUT ABS # 8.28 K/uL (1.4-6.5); PLATELET COUNT 178 K/uL (130-400); RED CELL DISTRIBUTION WIDTH CV 21.8 % (11.5-14.5); RED CELL DISTRIBUTION WIDTH SD 67.1 fL (36.4-46.3); WHITE BLOOD COUNT 9.77 K/uL (4.8-10.8)
--- NOTE | 2017-09-19 12:14 | DIAGNOSTIC IMAGING REPORT ---
SINGLE VIEW CHEST CLINICAL HISTORY: Edema. Chills. FINDINGS: An AP, portable, upright chest radiograph is compared to study dated 07/18/2017 and correlated with chest CT dated 09/30/2015. The examination is degraded by portable technique and patient rotation. A right PICC line is in place. The tip projects over the right innominate vein. The heart is enlarged and there is atherosclerotic calcification of the thoracic aorta. There is mild pulmonary vascular congestion. There are low lung volumes. No airspace consolidation or large pleural effusion is identified. No pneumothorax is seen. The skeletal structures are osteopenic. The bony thorax is grossly intact. IMPRESSION: 1. A right-sided PICC line is in place. The tip projects over the innominate vein. 2. Cardiomegaly with mild pulmonary vascular congestion. 3. No airspace consolidation or large pleural effusion is identified. Electronically signed by: Carlyle Garcia M.D. 09/19/2017 12:13 PM Dictated Date/Time: 09/19/2017 12:11 PM
[2017-09-19 12:24] LABS: INR 1.3 (0.9-1.1); PTT PATIENT 30.8 SECONDS (21.0-31.0)
[2017-09-19 12:26] LABS: ALBUMIN 2.7 gm/dl (3.4-5.0); ALT/SGPT 10 U/L (12-78); AST/SGOT 8 U/L (15-37); BLOOD UREA NITROGEN 84 mg/dl (7-18); CALCIUM 8.9 mg/dl (8.5-10.1); CARBON DIOXIDE 27 mmol/L (21-32); CREATININE 4.08 mg/dl (0.60-1.20); GLUCOSE 161 mg/dl (70-99); POTASSIUM 4.3 mmol/L (3.5-5.1); SODIUM 133 mmol/L (136-145)
[2017-09-19 12:35] LABS: ALKALINE PHOSPHATASE 81 U/L (45-117); CKMB 1.7 ng/ml (0.5-3.6); TOTAL PROTEIN 7.9 gm/dl (6.4-8.2)
[2017-09-19] MEDS ORDERED: ALUMINUM/MAGNESIUM/SIMETH (MAALOX MAX) 30 ML UDC PO PRN (15:45)
[2017-09-19] MEDS ORDERED: MAGNESIUM HYDROXIDE SUSP 30 ML UDC PO PRN (15:45)
[2017-09-19] MEDS ORDERED: SPIRONOLACTONE 25 MG TAB PO SCH (15:45)
[2017-09-19] MEDS ORDERED: ONDANSETRON INJ 2 MG/ML 2 ML VIAL IV PRN (15:45)
[2017-09-19] MEDS ORDERED: NITROGLYCERIN 0.4 MG SL PER TAB CHARGE SL PRN (15:45)
[2017-09-19] MEDS ORDERED: BUMETANIDE SOLN 1 MG/4 ML VIAL IV ONE (15:45)
[2017-09-19] MEDS ORDERED: ACETAMINOPHEN 325 MG TAB PO PRN (15:45)
--- NOTE | 2017-09-19 16:00 | History and Physical ---
History & Physical Date & Time of Service: Sep 19, 2017 at 15:50 Chief Complaint: Wound Seeping, Legs, Buttocks Primary Care Physician: Parminder Rothman DO History of Present Illness Source: patient, hospital records 57yo female, well known to the hospitalist service for multiple admissions for acute/chronic cor pulmonale/LE wounds/ARF/etc, presenting with 20-30 pounds of weight gain since the last hospital stay, development of large blisters on the RLE in the last few days as well as worsening RLE achilles/heel wounds, foul odor from her sacral decubitus ulcer, and worsening LE edema R>L. She admits to noncompliance with fluid restriction, diet ("the food is terrible there [at the [facility]] so I eat junk food every day"), and her BIPAP. She uses around-the- clock [place] O2 for chronic hypoxic resp failure. She states she will refuse to return to [facility] in [place] because "the aides there don't help me." She states she slept in her wheelchair last pm and her rodriguez catheter leaked urine all night. Her rodriguez is due to be changed at this time. C/o itchy skin on her abdominal wall, in her groin, and pain in both legs. She is essentially bed-bound at this point, spending most time in the bed, with a limited amount of time in the wheelchair. No fevers or chills; appetite has been fine. Had a low blood sugar "the other day" but denies hyperglycemia. Notes from [facility] dated September 05 indicate she had pseudomonas and klebsiella grow from her right ankle. She was placed on IV cefepime at that time in addition to IV daptomycin; the latter was being used for known MRSA. Documentation from that office visit indicate that no blistering was seen of either leg at that time. Past Medical/Surgical History PMH: 1. Sacral decubitus ulcer, stage 3 2. Chronic right sided heart failure/cor pulmonale 3. Chronic diastolic heart failure 4. Stage IV CKD due to DM, baseline Cr about 2 5. DM type II, poorly controlled 6. chronic rodriguez catheter usage 7. Anemia secondary to iron deficiency and CKD 8. morbid obesity 9. chronic right heel wound 10. chronic right achilles wound 11. ROHAN on BIPAP at HS 12. chronic hypoxic/hypercarbic respiratory failure on home O2 13. COPD PSH: 1. multiple PICC lines 2. multiple debridements of various wounds of LEs 3. Left hip fracture s/p ORIF 4. IVC filter 5. 6. Vein surgery Family History Mom of [place] in 70's Dad had heart disease Brother and sister both have heart disease Social History Smoking Status: Current Some Day Smoker Alcohol Use: none Drug Use: none Marital Status: single Housing status: assisted Occupational Status: disabled Multi-Drug Resistant Organisms History of MDRO: Yes Type of MDRO: MRSA Allergies Coded Allergies: Vancomycin (Verified Allergy, Severe, ANAPHYLAXIS, 09/19/17) pt began shaking,face and neck bright red rash.o2 saturation dropping to 84% on 15lnrb Ampicillin (Verified Allergy, Mild, RASH, 09/19/17) Clindamycin (Verified Allergy, Mild, RASH, 09/19/17) Linezolid (Verified Allergy, Mild, RASH, 09/19/17) Penicillins (Verified Allergy, Mild, RASH, 09/19/17) Ciprofloxacin (Verified Adverse Reaction, Mild, MUSCLE ACHES, 09/19/17) muscle aches Methimazole (Verified Adverse Reaction, Mild, headache, 09/19/17) headache Nystatin (Verified Adverse Reaction, Mild, nausea, abd pain, kidney pain, 09/19/17) nausea, abd pain,kidney pain Home Medications Scheduled Bumetanide (Bumex), 1 TAB PO BID Cefepime Hcl (Cefepime), 2 GM IV 1200 Daptomycin (Daptomycin), 650 MG IV 1200 Ergocalciferol (Vitamin D 62903 Unit), 1 TAB PO FRI Eucerin (Hydrocerin), 1 APPLN EXT BID Fluconazole (Diflucan), 100 MG PO QAM Glimepiride (Glimepiride), 1 TAB PO QAM Home O2 Therapy (Oxygen), 3 LITERS NA CONTINOUS Metolazone (Metolazone), 5 MG PO TTH Spironolactone (Aldactone), 25 MG PO QD Zolpidem Tartrate (Ambien), 1 TAB PO HS Scheduled PRN Oxycodone Immediate Rel Tab (Roxicodone Ir), 5 MG PO Q6H PRN for Pain [Clotrimazole 45GM], 1 DOSE TOP BID PRN for RASH Review of Systems Constitutional: + problem reported (weight gain - 30 pounds since last hospital stay?), No fever, No chills Eyes: No worsening of vision ENT: No nasal symptoms, No sore throat, No trouble swallowing Respiratory: + dyspnea on exertion, No cough, No sputum, No wheezing, No shortness of breath, No dyspnea at rest Cardiovascular: + orthopnea, + edema, No chest pain Abdomen: No pain, No nausea, No vomiting, No diarrhea, No constipation, No GI bleeding Musculoskeletal: + swelling (legs, with pain of both legs as well ), No joint pain, No muscle pain Genitourinary - Female: + problem reported (chronic rodriguez usage ), No dysuria Neurologic: + weakness (legs - getting worse with time), No numbness/tingling Psychiatric: + anxiety, No depression symptoms Hematologic / Lymphatic: No abnormal bleeding/bruising Integumentary: + rash (lower abdominal wall - dry, pruritic ), + problem reported (numerous wounds, LEs, including blistering of RLE ) Physical Exam Vital Signs Date Time Temp Pulse Resp B/P (MAP) Pulse Ox O2 Delivery O2 Flow Rate FiO2 09/19/17 13:39 86 22 97/61 94 Nasal Cannula 3.0 09/19/17 10:45 36.7 72 18 116/75 99 General Appearance: + mild distress (when she moves or I examined her legs; otherwise NAD), + obese Head: normocephalic, atraumatic Eyes: PERRL, sclerae normal ENT: hearing grossly normal, TMs normal, pharynx normal Neck: supple, no adenopathy, thyroid normal, + JVD Respiratory/Chest: no respiratory distress, no accessory muscle use, + decreased breath sounds (bases) Cardiovascular: regular rate, rhythm, no gallop, normal peripheral pulses, + systolic murmur (2/6LLSB) Abdomen/GI: normal bowel sounds, non tender, + distended (with ascites), + hernia (umbilical - reducible ), + pertinent finding (lower abdominal wall is erythematous and dry/scaly) Extremities/Musculoskelatal: + pedal edema (severe - RLE - 3++; LLE about 2-3+ ; edema extends to the thighs b/l ) Neurologic/Psych: alert, oriented x 3, + pertinent finding (strength b/l upper exts 5/5; LEs very weak, 3-4/5 at best) Skin: + pertinent finding (PICC line RUE clean) 1. back - stage 3 sacral decub with severe foul odor and purulent drainage; the decub is circular but with irregular margins; the diameter is at least 3cm 2. right foot - heel - large black eschar in center of wound; there is purulent material exuding from this ulceration. 3. ulceration to right achilles - exposed tendon? - purulent material exuding from the ulceration; there is central eschar in a linear fashion along the extent of the wound. 4. multiple large blisters on the right leg (vega) with 2 large, dominant blisters - one laterally and one medially. 5. there are multiple, shallow, small ulcerations along the right anterior vega. 6. left foot, lateral malleolus - small-medium size ulceration with purulent material present. Diagnostics Laboratory Results Results Past 24 Hours Test 09/19/17 11:55 09/19/17 12:50 Range/Units White Blood Count 9.77 4.8-10.8 K/uL Red Blood Count 3.99 4.2-5.4 M/uL Hemoglobin 10.1 12.0-16.0 g/dL Hematocrit 33.0 37-47 % Mean Corpuscular Volume 82.7 80-100 fL Mean Corpuscular Hemoglobin 25.3 25-34 pg Mean Corpuscular Hemoglobin Concent 30.6 32-36 g/dl Platelet Count 178 130-400 K/uL Neutrophils (%) (Auto) 84.7 % Lymphocytes (%) (Auto) 6.9 % Monocytes (%) (Auto) 6.8 % Eosinophils (%) (Auto) 1.1 % Basophils (%) (Auto) 0.2 % Neutrophils # (Auto) 8.28 1.4-6.5 K/uL Lymphocytes # (Auto) 0.67 1.2-3.4 K/uL Monocytes # (Auto) 0.66 0.11-0.59 K/uL Eosinophils # (Auto) 0.11 0-0.5 K/uL Basophils # (Auto) 0.02 0-0.2 K/uL RDW Standard Deviation 67.1 36.4-46.3 fL RDW Coefficient of Variation 21.8 11.5-14.5 % Immature Granulocyte % (Auto) 0.3 % Immature Granulocyte # (Auto) 0.03 0.00-0.02 K/uL Hypochromasia PRESENT Anisocytosis PRESENT Ovalocytes 1+ Prothrombin Time 13.8 9.0-12.0 SECONDS Prothromb Time International Ratio 1.3 0.9-1.1 Activated Partial Thromboplast Time 30.8 21.0-31.0 SECONDS Partial Thromboplastin Ratio 1.2 Sodium Level 133 136-145 mmol/L Potassium Level 4.3 3.5-5.1 mmol/L Chloride Level 98 98-107 mmol/L Carbon Dioxide Level 27 21-32 mmol/L Anion Gap 8.0 3-11 mmol/L Blood Urea Nitrogen 84 7-18 mg/dl Creatinine 4.08 0.60-1.20 mg/dl Estimated GFR () 13.0 Estimated GFR (Non- 11.3 BUN/Creatinine Ratio 20.6 10-20 Random Glucose 161 70-99 mg/dl Calcium Level 8.9 8.5-10.1 mg/dl Magnesium Level 1.7 1.8-2.4 mg/dl Total Bilirubin 0.5 0.2-1 mg/dl Aspartate Amino Transf (AST/SGOT) 8 15-37 U/L Alanine Aminotransferase (ALT/SGPT) 10 12-78 U/L Alkaline Phosphatase 81 45-117 U/L Total Creatine Kinase 21 26-192 U/L Creatine Kinase MB 1.7 0.5-3.6 ng/ml Creatine Kinase MB Ratio 8.1 0-3.0 Troponin I < 0.015 0-0.045 ng/ml Total Protein 7.9 6.4-8.2 gm/dl Albumin 2.7 3.4-5.0 gm/dl Globulin 5.2 2.5-4.0 gm/dl Albumin/Globulin Ratio 0.5 0.9-2 Thyroid Stimulating Hormone (TSH) 0.964 0.300-4.500 uIu/ml Lactic Acid Level 1.1 0.4-2.0 mmol/L Microbiology Results 09/19/17 Blood Culture, Received Pending 09/19/17 Blood Culture, Received Pending Diagnostic Radiology cxr - IMPRESSION: 1. A right-sided PICC line is in place. The tip projects over the innominate vein. 2. Cardiomegaly with mild pulmonary vascular congestion. 3. No airspace consolidation or large pleural effusion is identified. Impression Assessment and Plan 57yo female with numerous medical problems including chronic hypoxic/ hypercarbic respiratory failure on home O2, uncontrolled T2DM, CKD stage 4, chronic LE wounds, and chronic right sided heart failure (cor pulmonale) presenting with ARF, acute/chronic cor pulmonale, and worsening LE wounds b/l but most severe on the right leg. 1. acute/chronic right sided heart failure / acute/chronic diastolic CHF - she reports a minimum of 30 pounds of weight gain. Weight today is 120.9kg, which is up from her weight in July of about 108-110kg. She has significant ascites & LE edema. She reports noncompliance with both diet & fluid restriction. Bumex 2mg IV x 1 now. Hold metazolone. Hold aldactone. BMP in am. Strict I's and O's; fluid restrict to 1500cc/day. 2 gram salt restriction. If creatinine is stable/improved in the AM then resume diuresis with 2mg of bumex IV BID. Could also consider resuming aldactone if Creatinine and potassium will allow. Consider cardiology consult if needed. 2. acute renal failure - hopefully this is due to cardio-renal syndrome. She could have an element of post-obstruction as well -- she reports her rodriguez was leaking last pm and this AM. Will d/c rodriguez, place a new rodriguez, and monitor UOP and serial creatinines. Send u/a and urine Cr and urine Na although these may not be reliable due to diuretic usage. Nephrology consult requested. Hold off on renal imaging for now. BMP in am. 3. stage 3 decubitus sacral ulcer and NUMEROUS wounds of the LEs - especially right achilles, right heel, and left ankle -- previous culture with MRSA and has been on daptomycin for 2+ months. Most recent culture from the right foot grew pseudomonas & klebsiella. She was placed on cefepime for the latter 2 pathogens. Since her infections appear to be progressing will d/c cefepime and broaden to imipenem. ID consult requested. MRI of right foot/ankle requested to r/o osteomyelitis, tenosynovitis, etc. I am concerned that she may end up with BKA. Orthopedic consult will likely be needed for surgical intervention but will defer to day-time MD. I have requested that the wound care team and Dr. Rothman see the patient for management of all wounds. Aquacel Ag to the sacral wound with optifoam, and Aquacel with optifoam to all leg/foot wounds. Add zinc, vit C, and MVI to help promote wound healing. Her chronic edema is making this all worse. 4. T2DM - uncontrolled - due to noncompliance with diet. ON NUMEROUS OCCASIONS SHE HAS BEEN COUNSELED THAT AMARYL USE IS NOT RECOMMENDED IN LIGHT OF HER CKD. INSULIN HAS BEEN ADVISED BUT SHE REFUSES ALL INSULIN INJECTIONS. Will proceed forward with amaryl cautiously. BSGs ac/hs. 5. severe LE edema - likely combination of cor pulmonale and CKD/ARF. However , given her essentially bed-bound status, need to r/o DVT. Dopplers of both legs ordered. 6. chronic hypoxic/hypercarbic respiratory failure - 2nd to COPD, ROHAN, and I cannot exclude obesity-hypoventilation syndrome. Stable at this time. 7. DVT proph - heparin 5000 BID. 8. hyponatremia - likely 2nd to ARF - repeat BMP in am. 9. hypomagnesemia - due to metazolone/bumex usage. Oral mag oxide replacement TODAY only; repeat level in am. 10. anemia - chronic - 2nd to CKD; H/H acceptable today. 11. COPD - stable, without exacerbation. 12. ? cellulitis of lower abdominal wall - antibiotics for wounds will suffice. 13. chronic intertrigo - remains on diflucan daily. 14. morbid obesity with BMI 42.7 15. deconditioning - PT, OT. 16. ROHAN - night-time BiPAP ordered for her but uncertain if she will comply; admits to not using it at the assisted. 17. chronic rodriguez usage - due to be changed today; will ask nursing staff to replace today. patient requests level 1 full code status Level of Care Telemetry Advanced Directives Existing Advance Directive: No Existing Living Will: No Existing Power of Cake Maker: No Existing Health Care Proxy: No Resuscitation Status FULL RESUSCITATION VTE Prophylaxis VTE Risk Assessment Done? Y/N: Yes Risk Level: High Given or contraindicated: Unfractionated heparin SQ Social Service Consult Lives in Custodial Note total visit time about 75 minutes Additional Copies To Jake Brown MD; Parminder Rothman, DO
[2017-09-19] MEDS ORDERED: BUMETANIDE IV 2 MG in SYRINGE 0 ML IV ONE (16:15)
[2017-09-19 16:20] VITALS: BP 128/70; PULSE 98; TEMP 37.2; O2SAT 94
[2017-09-19 18:20] VITALS: BP 128/70; PULSE 98; TEMP 37.2; O2SAT 94
[2017-09-19 18:45] VITALS: O2SAT 94; BMI 43.0
[2017-09-19] MEDS ORDERED: PATIENT'S HEIGHT AND/OR WEIGHT NEEDED SCH (18:45)
[2017-09-19] MEDS ORDERED: IMIPENEM/CILASTATIN CONSULT ACTIVE PRN (19:15)
[2017-09-19] MEDS: IMIPENEM-CILASTATIN 250 MG in DEXTROSE 5% 100ML 100 ML IV SCH (20:11)
[2017-09-19] MEDS: LACTOBACILLUS ACIDOPHILUS (FLORANEX) TAB PO SCH (20:18)
[2017-09-19] MEDS: HYDROmorphone INJ 0.5 MG/0.5 ML SYR IV PRN (20:28)
[2017-09-19] MEDS ORDERED: DAPTOMYCIN CONSULT ACTIVE PRN (20:30)
[2017-09-19] MEDS: EUCERIN CR 120 GM JAR EXT SCH (21:00)
[2017-09-19] MEDS: HEPARIN SOD 5000 UNIT/0.5 ML CARP SQ SCH (21:00)
[2017-09-19] MEDS: MAGNESIUM OXIDE 400 MG TAB PO SCH (21:00)
[2017-09-19] MEDS: OXYCODONE HCL IR 5 MG TAB (IMMEDIATE RELEASE) PO PRN (23:37)
[2017-09-19] MEDS: ZOLPIDEM TARTRATE 5 MG TAB PO SCH (23:45)
[2017-09-20] VITALS (10 sets, daily range): BP systolic 93–137; BP diastolic 56–117; PULSE 96–102; TEMP 36.2–37; O2SAT 91–95
--- NOTE | 2017-09-20 00:04 | EMERGENCY ROOM VISIT NOTE ---
History First contact with patient: 11:25 Chief Complaint: OTHER COMPLAINT Stated Complaint: CHF, MRSA LOWER EXTREMITY WOUNDS History of Present Illness The patient is a 57 year old female who presents to the Emergency Room via private vehicle/[place] transportation with complaints of "wound seeping, legs , Botox and abdomen". The patient states that she feels as though she is being filled with water and notes her chronic leg wounds are worsening. She states that she notes this has been ongoing for a while and she has been laying in bed for quite some time Josefaline. She states that last night she was in her chair and slept through the night in her chair and notes that the sores and her increased amount of fluid have been worsening. She denies any fevers but notes she has chills. She follows locally with the wound care center. Of additional note, I was called by Gaurav and they note that the patient was refusing to leave her bed for a period of time, and then was transferred to her chair. Where she then refused to leave her chair. It appeared that the patient was refusing care, and they were concerned therefore called the ambulance. I was informed that the patient then refused to get on the litter to come here via ambulance therefore was brought by Gaurav. They note that as they were approaching [facility] the patient stated that she wanted to go to [facility]. Review of Systems A complete 10-point Review of Systems was discussed with the patient, with pertinent positives and negatives listed in the History of Present Illness. All remaining Review of Systems questions can be considered negative unless otherwise specified. Past Medical/Surgical History Medical Problems: (1) Acute respiratory failure (2) CHF (congestive heart failure) (3) Chills (4) Femur fracture, left (5) Hyponatremia (6) Leg swelling (7) Leg ulcer (8) Leukocytosis (9) MRSA (methicillin resistant Staphylococcus aureus) infection (10) MRSA lower extremity wounds (11) Sacral decubitus ulcer, stage IV Family History No pertinent family history Social History Smoking Status: Former Smoker Drug Use: none Marital Status: single Occupation Status: disabled Current/Historical Medications Scheduled Bumetanide (Bumex), 1 TAB PO BID Cefepime Hcl (Cefepime), 2 GM IV 1200 Daptomycin (Daptomycin), 650 MG IV 1200 Ergocalciferol (Vitamin D 26282 Unit), 1 TAB PO FRI Eucerin (Hydrocerin), 1 APPLN EXT BID Fluconazole (Diflucan), 100 MG PO QAM Glimepiride (Glimepiride), 1 TAB PO QAM Home O2 Therapy (Oxygen), 3 LITERS NA CONTINOUS Metolazone (Metolazone), 5 MG PO TTH Spironolactone (Aldactone), 25 MG PO QD Zolpidem Tartrate (Ambien), 1 TAB PO HS Scheduled PRN Oxycodone Immediate Rel Tab (Roxicodone Ir), 5 MG PO Q6H PRN for Pain [Clotrimazole 45GM], 1 DOSE TOP BID PRN for RASH Physical Exam Vital Signs Date Time Temp Pulse Resp B/P (MAP) Pulse Ox O2 Delivery O2 Flow Rate FiO2 09/19/17 13:39 86 22 97/61 94 Nasal Cannula 3.0 09/19/17 10:45 36.7 72 18 116/75 99 Physical Exam VITAL SIGNS - Vital signs and nursing notes were reviewed. Stable. Afebrile. GENERAL -57-year-old female appearing her stated age who is in no acute distress. Communicates well with provider and answers questions appropriately. SKIN - there are numerous ulcerations on the patient's lower extremities. These appear to be in different stages of healing. They are seeping a clear serous color. HEAD - NC/AT. EYES - Sclera anicteric. EARS - No deformities of external structures noted on gross examination bilaterally. NOSE - Midline and without cyanosis. No epistaxis or purulent drainage noted. MOUTH/OROPHARYNX - Without perioral cyanosis. ABDOMEN - Abdominal contour enlarged inferiorly without pulsations or visible masses. There is tenderness noted with evidence of hard and skin with fluid overload. EXTREMITIES - skin findings as above. Medical Decision & Procedures ER Provider Diagnostic Interpretation: SINGLE VIEW CHEST CLINICAL HISTORY: Edema. Chills. FINDINGS: An AP, portable, upright chest radiograph is compared to study dated 07/18/2017 and correlated with chest CT dated 09/30/2015. The examination is degraded by portable technique and patient rotation. A right PICC line is in place. The tip projects over the right innominate vein. The heart is enlarged and there is atherosclerotic calcification of the thoracic aorta. There is mild pulmonary vascular congestion. There are low lung volumes. No airspace consolidation or large pleural effusion is identified. No pneumothorax is seen. The skeletal structures are osteopenic. The bony thorax is grossly intact. IMPRESSION: 1. A right-sided PICC line is in place. The tip projects over the innominate vein. 2. Cardiomegaly with mild pulmonary vascular congestion. 3. No airspace consolidation or large pleural effusion is identified. Electronically signed by: Carlyle Garcia M.D. 09/19/2017 12:13 PM Dictated Date/Time: 09/19/2017 12:11 PM Laboratory Results 09/19/17 11:55 Red Blood Count 3.99, Mean Corpuscular Volume 82.7, Mean Corpuscular Hemoglobin 25.3, Mean Corpuscular Hemoglobin Concent 30.6, Neutrophils (%) (Auto) 84.7, Lymphocytes (%) (Auto) 6.9, Monocytes (%) (Auto) 6.8, Eosinophils (%) (Auto) 1.1 , Basophils (%) (Auto) 0.2, Neutrophils # (Auto) 8.28, Lymphocytes # (Auto) 0.67 , Monocytes # (Auto) 0.66, Eosinophils # (Auto) 0.11, Basophils # (Auto) 0.02 09/19/17 11:55 Test 09/19/17 11:55 09/19/17 12:50 White Blood Count 9.77 K/uL (4.8-10.8) Red Blood Count 3.99 M/uL (4.2-5.4) Hemoglobin 10.1 g/dL (12.0-16.0) Hematocrit 33.0 % (37-47) Mean Corpuscular Volume 82.7 fL (80-100) Mean Corpuscular Hemoglobin 25.3 pg (25-34) Mean Corpuscular Hemoglobin Concent 30.6 g/dl (32-36) Platelet Count 178 K/uL (130-400) Neutrophils (%) (Auto) 84.7 % Lymphocytes (%) (Auto) 6.9 % Monocytes (%) (Auto) 6.8 % Eosinophils (%) (Auto) 1.1 % Basophils (%) (Auto) 0.2 % Neutrophils # (Auto) 8.28 K/uL (1.4-6.5) Lymphocytes # (Auto) 0.67 K/uL (1.2-3.4) Monocytes # (Auto) 0.66 K/uL (0.11-0.59) Eosinophils # (Auto) 0.11 K/uL (0-0.5) Basophils # (Auto) 0.02 K/uL (0-0.2) RDW Standard Deviation 67.1 fL (36.4-46.3) RDW Coefficient of Variation 21.8 % (11.5-14.5) Immature Granulocyte % (Auto) 0.3 % Immature Granulocyte # (Auto) 0.03 K/uL (0.00-0.02) Hypochromasia PRESENT Anisocytosis PRESENT Ovalocytes 1+ Prothrombin Time 13.8 SECONDS (9.0-12.0) Prothromb Time International Ratio 1.3 (0.9-1.1) Activated Partial Thromboplast Time 30.8 SECONDS (21.0-31.0) Partial Thromboplastin Ratio 1.2 Anion Gap 8.0 mmol/L (3-11) Estimated GFR () 13.0 Estimated GFR (Non- 11.3 BUN/Creatinine Ratio 20.6 (10-20) Calcium Level 8.9 mg/dl (8.5-10.1) Magnesium Level 1.7 mg/dl (1.8-2.4) Total Bilirubin 0.5 mg/dl (0.2-1) Aspartate Amino Transf (AST/SGOT) 8 U/L (15-37) Alanine Aminotransferase (ALT/SGPT) 10 U/L (12-78) Alkaline Phosphatase 81 U/L (45-117) Total Creatine Kinase 21 U/L (26-192) Creatine Kinase MB 1.7 ng/ml (0.5-3.6) Creatine Kinase MB Ratio 8.1 (0-3.0) Troponin I < 0.015 ng/ml (0-0.045) Total Protein 7.9 gm/dl (6.4-8.2) Albumin 2.7 gm/dl (3.4-5.0) Globulin 5.2 gm/dl (2.5-4.0) Albumin/Globulin Ratio 0.5 (0.9-2) Thyroid Stimulating Hormone (TSH) 0.964 uIu/ml (0.300-4.500) Lactic Acid Level 1.1 mmol/L (0.4-2.0) Medications Administered Medications (Trade) Dose Ordered Sig/Bruno Route Start Time Stop Time Status Last Admin Dose Admin Oxycodone HCl (Roxicodone Immediate Rel Tab) 5 mg Q6H PRN PO 09/19/17 15:45 10/03/17 15:44 09/19/17 23:37 5 MG Spironolactone (Aldactone Tab) 25 mg QD PO 09/19/17 15:45 10/19/17 15:44 Future Hold 09/19/17 20:17 25 MG Medical Decision Patient was seen and evaluated as above. She presents to us today from [place] where it appears that she was refusing care. Upon my entrance into the exam room the patient is sitting in her wheelchair. She refuses to leave the wheelchair. She argues that she wants Lasix to get the fluid off and then we'll leave her wheelchair. I informed her that unfortunately that it appears her Lerner catheter is not functioning, as are his a puddle of urine that is underneath her right leg and also partially saturating the wound dressing on the right leg, and informed her that it is important to get her clean and out of the chair where there is a lot of pressure on the sacral region potential ulceration. The patient was unable to be transferred to the bed. Better examination of her legs was had at that time. It appears that she is experiencing fluid overload, and it is spacing in gravity dependent extremity. In review of her blood work, there is no leukocytosis however her hemoglobin is 10.1. Coags with INR 1.3. Her metabolic panel reveals sodium 133, creatinine has doubled since previous study at 4.08, magnesium is 1.7, troponin negative, TSH normal. With the acute kidney injury, her interval edema worsening, I do believe that further evaluation and management in the inpatient setting is warranted. Consult was ordered for the wound care nurse. I discussed the case with the attending physician, and subsequently the hospitalist, Dr. Giraldo. Please refer to further documentation regarding her stay. In the evaluation and treatment of this patient following differential diagnoses were entertained: Acute kidney injury, CHF, among others. Impression Primary Impression: ELIZABETH (acute kidney injury) Additional Impressions: Anemia Leg swelling Leg ulcer Departure Information Dispostion Admitted as an inpatient Condition FAIR Referrals Parminder Rothman DO (PCP) Forms WORK / SCHOOL INSTRUCTIONS, HOME CARE DOCUMENTATION FORM, IMPORTANT VISIT INFORMATION Patient Instructions My [facility] Problem Qualifiers
[2017-09-20] MEDS: IMIPENEM-CILASTATIN 250 MG in DEXTROSE 5% 100ML 100 ML IV SCH ×2 (02:20→08:04)
[2017-09-20] MEDS: OXYCODONE HCL IR 5 MG TAB (IMMEDIATE RELEASE) PO PRN ×2 (05:58→19:31)
[2017-09-20 06:27] LABS: MEAN CORPUSCULAR HGB CONC 30.9 g/dl (32-36)
[2017-09-20] MEDS ORDERED: HYDROmorphone INJ 1 MG/ML SYR IV STA (06:49)
[2017-09-20 07:04] LABS: CALCIUM 8.5 mg/dl (8.5-10.1); CREATININE 4.2 mg/dl (0.60-1.20); POTASSIUM 4.1 mmol/L (3.5-5.1)
[2017-09-20 07:15] LABS: HEMATOCRIT 29.8 % (37-47); HEMOGLOBIN 9.2 g/dL (12.0-16.0); MEAN CELL VOLUME 82.3 fL (80-100); MEAN CORPUSCULAR HEMOGLOBIN 25.4 pg (25-34); RED CELL DISTRIBUTION WIDTH CV 21.1 % (11.5-14.5); RED CELL DISTRIBUTION WIDTH SD 64.9 fL (36.4-46.3); WHITE BLOOD COUNT 6.51 K/uL (4.8-10.8)
[2017-09-20 07:40] LABS: BASO % 0.3 %; BASO ABS # 0.02 K/uL (0-0.2); EOS % 2.8 %; EOS ABS # 0.18 K/uL (0-0.5); IG# 0.01 K/uL (0.00-0.02); LYMPH ABS # 0.91 K/uL (1.2-3.4); MEAN PLATELET VOLUME 9.9 fL (7.4-10.4); MONO % 8.4 %; MONO ABS # 0.55 K/uL (0.11-0.59); NEUT % 74.3 %; NEUT ABS # 4.84 K/uL (1.4-6.5); PLATELET COUNT 131 K/uL (130-400)
[2017-09-20] MEDS: LACTOBACILLUS ACIDOPHILUS (FLORANEX) TAB PO SCH ×3 (07:45→16:45)
[2017-09-20] MEDS: EUCERIN CR 120 GM JAR EXT SCH ×2 (07:45→20:54)
[2017-09-20] MEDS: GLIMEPIRIDE 2 MG TAB PO SCH (07:45)
[2017-09-20] MEDS: FLUCONAZOLE 100 MG TAB PO SCH (07:46)
[2017-09-20] MEDS: ASCORBIC ACID 500 MG TAB PO SCH (07:46)
[2017-09-20] MEDS: ERGOCALCIFEROL 50,000 INTER.UNIT CAP PO SCH (07:46)
[2017-09-20] MEDS: CEROVITE ADV FORMULA TAB PO SCH (07:46)
[2017-09-20] MEDS: ZINC SULFATE 220 MG CAP PO SCH (07:46)
[2017-09-20] MEDS: MAGNESIUM OXIDE 400 MG TAB PO SCH (07:46)
[2017-09-20] MEDS: HEPARIN SOD 5000 UNIT/0.5 ML CARP SQ SCH ×2 (07:47→20:54)
[2017-09-20] MEDS: BUMETANIDE IV 2 MG in SYRINGE 0 ML IV SCH ×2 (10:56→17:08)
[2017-09-20] MEDS: DAPTOmycin IV 650 MG in SYRINGE 0 ML IV SCH (10:57)
[2017-09-20] MEDS ORDERED: DAPTOmycin 500 MG VIAL IV SCH (12:00)
--- NOTE | 2017-09-20 12:03 | Progress Note ---
Progress Note Date of Service Sep 20, 2017. Progress Note when I entering patient's noon, patient said she dose not want me to take care of her, I am looking for other of my colleague to see her
--- NOTE | 2017-09-20 14:59 | Medical Consult ---
Consultation Date of Consultation: Sep 20, 2017. Attending Physician: Hernan Morgan MD, PhD Reason for Consultation: Multiple wounds History of Present Illness 57-year-old female well known to the Infectious Disease service, with history of poorly-controlled diabetes mellitus, morbid obesity, recurrent urinary tract infection, chronic kidney disease, who has been hospitalized several times for infections sacral and lower extremity ulcerations.She was recently hospitalized for worsening infection of her right leg, and is being treated with IV daptomycin as an outpatient. She has now been readmitted with several days of progressively worsening swelling of both legs, worsening ulcerations, spreading erythema, she and malodorous discharge from her wounds. She has significant pain in her legs rated 8/10 in intensity currently. She does not report any significant fever. She has been started empirically on daptomycin and imipenem. Cultures are pending. Past Medical/Surgical History Medical Problems: (1) Acute renal disease Status: Acute (2) Acute renal failure Status: Acute (3) ELIZABETH (acute kidney injury) Status: Acute (4) ELIZABETH (acute kidney injury) Status: Acute (5) Anemia Status: Acute (6) Cellulitis Status: Acute (7) Cellulitis of both lower extremities Status: Acute (8) CHF (congestive heart failure) Status: Acute (9) CHF (congestive heart failure) Status: Acute (10) Dehydration Status: Acute (11) Fluid overload Status: Acute (12) Hypoxia Status: Acute (13) Pickwickian syndrome Status: Acute (14) Pneumonia Status: Acute (15) Respiratory failure Status: Acute (16) Sacral decubitus ulcer, stage III Status: Acute (17) UTI (urinary tract infection) Status: Acute Past Medical/Surgical History PMH: 1. Sacral decubitus ulcer, stage 3 2. Chronic right sided heart failure/cor pulmonale 3. Chronic diastolic heart failure 4. Stage IV CKD due to DM, baseline Cr about 2 5. DM type II, poorly controlled 6. chronic rodriguez catheter usage 7. Anemia secondary to iron deficiency and CKD 8. morbid obesity 9. chronic right heel wound 10. chronic right achilles wound 11. ROHAN on BIPAP at HS 12. chronic hypoxic/hypercarbic respiratory failure on home O2 13. COPD PSH: 1. multiple PICC lines 2. multiple debridements of various wounds of LEs 3. Left hip fracture s/p ORIF 4. IVC filter 5. 6. Vein surgery Family History No pertinent family history Social History Smoking Status: Former Smoker Alcohol Use: none Drug Use: none Marital Status: single Occupation Status: disabled Allergies Coded Allergies: Vancomycin (Verified Allergy, Severe, ANAPHYLAXIS, 09/19/17) pt began shaking,face and neck bright red rash.o2 saturation dropping to 84% on 15lnrb Ampicillin (Verified Allergy, Mild, RASH, 09/19/17) Clindamycin (Verified Allergy, Mild, RASH, 09/19/17) Linezolid (Verified Allergy, Mild, RASH, 09/19/17) Penicillins (Verified Allergy, Mild, RASH, 09/19/17) Ciprofloxacin (Verified Adverse Reaction, Mild, MUSCLE ACHES, 09/19/17) muscle aches Methimazole (Verified Adverse Reaction, Mild, headache, 09/19/17) headache Nystatin (Verified Adverse Reaction, Mild, nausea, abd pain, kidney pain, 09/19/17) nausea, abd pain,kidney pain Current Inpatient Medications Current Inpatient Medications Medications (Trade) Dose Ordered Sig/Bruno Route Start Time Stop Time Status Last Admin Dose Admin Heparin Sodium (Porcine) (Heparin Sq 5000 Unit/0.5ml) 5,000 unit Q12 SQ 09/19/17 21:00 10/19/17 20:59 Acetaminophen (Tylenol Tab) 650 mg Q4H PRN PO 09/19/17 15:45 10/19/17 15:44 Al Hydrox/Mg Hydrox/Simethicone (Maalox Max Susp) 15 ml Q4H PRN PO 09/19/17 15:45 10/19/17 15:44 Magnesium Hydroxide (Milk Of Magnesia Susp) 30 ml Q12H PRN PO 09/19/17 15:45 10/19/17 15:44 Ondansetron HCl (Zofran Inj) 4 mg Q6H PRN IV 09/19/17 15:45 10/19/17 15:44 Nitroglycerin (Nitrostat Tab) 0.4 mg UD PRN SL 09/19/17 15:45 10/19/17 15:44 Ergocalciferol (Vitamin D Cap) 50,000 interunit Fr@0900 PO 09/20/17 09:00 10/20/17 08:59 09/20/17 07:46 50,000 INTERUNIT Multi-Ingredient Ointment (Eucerin Unscented Cr) 1 appln BID EXT 09/19/17 21:00 10/19/17 20:59 Fluconazole (Diflucan Tab) 100 mg QAM PO 09/20/17 09:00 09/30/17 08:59 09/20/17 07:46 100 MG Glimepiride (Amaryl Tab) 2 mg QAM PO 09/20/17 09:00 10/20/17 08:59 09/20/17 07:45 2 MG Oxycodone HCl (Roxicodone Immediate Rel Tab) 5 mg Q6H PRN PO 09/19/17 15:45 10/03/17 15:44 09/20/17 05:58 5 MG Spironolactone (Aldactone Tab) 25 mg QD PO 09/19/17 15:45 10/19/17 15:44 Future Hold 09/19/17 20:17 25 MG Zolpidem Tartrate (Ambien Tab) 5 mg HS PO 09/19/17 21:00 10/19/17 20:59 Lactobacillus Acidophilus (Floranex Tab) 4 tab TIDM PO 09/19/17 18:00 10/19/17 17:59 09/20/17 07:45 4 TAB Hydromorphone HCl (Dilaudid Inj) 0.5 mg Q4H PRN IV 09/19/17 16:15 10/03/17 16:14 09/19/17 20:28 0.5 MG Imipenem/ Cilastatin Sodium (Consult) 1 ea UD PRN N/A 09/19/17 19:15 10/19/17 19:14 Daptomycin (Consult) 1 ea UD PRN N/A 09/19/17 20:30 10/19/17 20:29 Daptomycin 650 mg/ Syringe 13 ml @ 6.5 mls/min Q48H IV 09/20/17 12:00 09/30/17 11:59 09/20/17 10:57 6.5 MLS/MIN Ascorbic Acid (Vitamin C Tab) 500 mg QAM PO 09/20/17 09:00 10/20/17 08:59 09/20/17 07:46 500 MG Zinc Sulfate (Zinc Sulfate Cap) 220 mg QAM PO 09/20/17 09:00 10/20/17 08:59 09/20/17 07:46 220 MG Multivitamins/ Minerals (Multivitamin W/ Minerals Tab) 1 tab QAM PO 09/20/17 09:00 10/20/17 08:59 09/20/17 07:46 1 TAB Bumetanide 2 mg/ Syringe 8 ml @ 4 mls/min BID@0900,1700 IV 09/20/17 09:00 10/20/17 08:59 09/20/17 10:56 4 MLS/MIN Imipenem/ Cilastatin Sodium 500 mg/Dextrose 110 ml @ 100 mls/hr Q12H IV 09/20/17 18:00 09/30/17 17:59 Review of Systems Constitutional: + weakness, + problem reported (weight gain), No fever Eyes: No problem reported Respiratory: + shortness of breath, + dyspnea on exertion Cardiovascular: No problem reported Abdomen: No problem reported Musculoskeletal: + muscle pain, + swelling Genitourinary - Female: No problem reported Neurologic: + weakness Psychiatric: No problem reported Endocrine: + fatigue Hematologic / Lymphatic: No problem reported Integumentary: + new/changing skin lesions Allergic / Immunologic: No problem reported Physical Exam Date Time Temp Pulse Resp B/P (MAP) Pulse Ox O2 Delivery O2 Flow Rate FiO2 09/20/17 12:10 95 Nasal Cannula 4.0 09/20/17 11:33 36.7 96 20 96/56 (69) 92 Nasal Cannula 4.0 09/20/17 08:01 95 Nasal Cannula 4.0 09/20/17 07:20 36.6 98 20 137/117 (124) 95 Nasal Cannula 4.0 09/20/17 06:08 36.9 102 21 109/56 (73) 94 Nasal Cannula 4.0 09/20/17 04:00 Nasal Cannula 4.0 09/20/17 01:04 37.0 102 20 93/57 (69) 91 Nasal Cannula 3.0 09/20/17 00:00 Nasal Cannula 4.0 09/19/17 20:00 Nasal Cannula 4.0 09/19/17 18:45 94 Mask 8.0 09/19/17 18:20 37.2 98 24 128/70 (89) 94 Oxymask 8.0 09/19/17 16:20 103 09/19/17 16:00 81 16 98/64 91 Nasal Cannula 4.0 09/19/17 16:00 91 Nasal Cannula 3.0 General Appearance: WD/WN, no apparent distress, + obese Head: normocephalic, atraumatic Eyes: normal inspection, PERRL, EOMI, sclerae normal ENT: normal ENT inspection, hearing grossly normal, pharynx normal Neck: supple, no adenopathy, thyroid normal, trachea midline, + JVD Respiratory/Chest: chest non-tender, no respiratory distress, no accessory muscle use, + decreased breath sounds Cardiovascular: regular rate, rhythm, no gallop, + systolic murmur Abdomen/GI: normal bowel sounds, non tender, soft, no organomegaly Back: normal inspection, no CVA tenderness Extremities/Musculoskelatal: + inflammation, + pedal edema, + swelling Neurologic/Psych: alert, oriented x 3 Skin: normal color, no rash, + pertinent finding (multiple bilateral leg ulcerations, sacral decubitus, all with foul odor) Lymphatic: no adenopathy Laboratory Results Last 24 Hours Test 09/19/17 18:34 09/19/17 20:30 09/19/17 21:33 09/20/17 05:46 Bedside Glucose 153 mg/dl 207 mg/dl Urine Color YELLOW Urine Appearance CLOUDY Urine pH 5.0 Urine Specific [place] 1.011 Urine Protein 2+ Urine Glucose (UA) NEG Urine Ketones NEG Urine Occult Blood 2+ Urine Nitrite NEG Urine Bilirubin NEG Urine Urobilinogen NEG Urine Leukocyte Esterase LARGE Urine WBC (Auto) >30 /hpf Urine RBC (Auto) 5-10 /hpf Urine Hyaline Casts (Auto) 1-5 /lpf Urine Epithelial Cells (Auto) >30 /lpf Urine Bacteria (Auto) 1+ Urine Pathogenic Casts 5-10 GRANULAR CASTS /lpf Urine Yeast (Auto) Urine Random Creatinine 23.0 mg/dl Urine Random Sodium 106 mEq/L White Blood Count 6.51 K/uL Red Blood Count 3.62 M/uL Hemoglobin 9.2 g/dL Hematocrit 29.8 % Mean Corpuscular Volume 82.3 fL Mean Corpuscular Hemoglobin 25.4 pg Mean Corpuscular Hemoglobin Concent 30.9 g/dl Platelet Count 131 K/uL Mean Platelet Volume 9.9 fL Neutrophils (%) (Auto) 74.3 % Lymphocytes (%) (Auto) 14.0 % Monocytes (%) (Auto) 8.4 % Eosinophils (%) (Auto) 2.8 % Basophils (%) (Auto) 0.3 % Neutrophils # (Auto) 4.84 K/uL Lymphocytes # (Auto) 0.91 K/uL Monocytes # (Auto) 0.55 K/uL Eosinophils # (Auto) 0.18 K/uL Basophils # (Auto) 0.02 K/uL RDW Standard Deviation 64.9 fL RDW Coefficient of Variation 21.1 % Immature Granulocyte % (Auto) 0.2 % Immature Granulocyte # (Auto) 0.01 K/uL Platelet Estimate NORMAL Anisocytosis PRESENT Ovalocytes 1+ Sodium Level 135 mmol/L Potassium Level 4.1 mmol/L Chloride Level 99 mmol/L Carbon Dioxide Level 26 mmol/L Anion Gap 10.0 mmol/L Blood Urea Nitrogen 87 mg/dl Creatinine 4.20 mg/dl Est Creatinine Clear Calc Drug Dose 19.1 ml/min Estimated GFR () 12.6 Estimated GFR (Non- 10.9 BUN/Creatinine Ratio 20.6 Random Glucose 81 mg/dl Calcium Level 8.5 mg/dl Magnesium Level 1.7 mg/dl Test 09/20/17 06:39 09/20/17 11:32 Bedside Glucose 81 mg/dl 127 mg/dl [~ rep ct add3]] SINGLE VIEW CHEST CLINICAL HISTORY: Edema. Chills. FINDINGS: An AP, portable, upright chest radiograph is compared to study dated 07/18/2017 and correlated with chest CT dated 09/30/2015. The examination is degraded by portable technique and patient rotation. A right PICC line is in place. The tip projects over the right innominate vein. The heart is enlarged and there is atherosclerotic calcification of the thoracic aorta. There is mild pulmonary vascular congestion. There are low lung volumes. No airspace consolidation or large pleural effusion is identified. No pneumothorax is seen. The skeletal structures are osteopenic. The bony thorax is grossly intact. IMPRESSION: 1. A right-sided PICC line is in place. The tip projects over the innominate vein. 2. Cardiomegaly with mild pulmonary vascular congestion. 3. No airspace consolidation or large pleural effusion is identified. Electronically signed by: Carlyle Garcia M.D. 09/19/2017 12:13 PM Dictated Date/Time: 09/19/2017 12:11 PM The status of this report is Signed. Draft = Not yet reviewed or approved by Radiologist. Signed = Reviewed and approved by Radiologist. <AttendingPhy></AttendingPhy> <FamilyPhy>Jake Brown MD</FamilyPhy> <PrimaryPhy> Parminder Rothman, </PrimaryPhy> <UnitNumber>[id number]</UnitNumber> <VisitNumber> [id number]</VisitNumber> <PatientName>LOC PADILLA</PatientName> < DateOfBirth>1960</DateOfBirth> <Location>[facility]</Location> <ServiceDate>09/05</ServiceDate> <MNE>ESINDI</MNE> <OrderingPhy>Emiliano Cardoza PA-C</ OrderingPhy> <OrderingPhyMNE>f rep ord dr arias</OrderingPhyMNE> <DictatingPhyMNE> f rep dict dr arias</DictatingPhyMNE> <CCListMNE>f rep ct mne</CCListMNE> < AdmittingPhyMNE>f pt admit dr arias</AdmittingPhyMNE> <AttendingPhyMNE>f pt attend dr arias</AttendingPhyMNE> <ConsultingPhyMNE>f pt consult dr arias</ConsultingPhyMNE> <FamilyPhyMNE>f pt fam Assessment & Plan 57 yo poorly controlled diabetic female with heart failure with worsening edema/ fluid retention with worssening infection of leg ulcers and sacral decubitus. Foul odor suggest polymicrobic infection/anaerobic component. Patient to be treated with imipenem and daptomycin pending further culture results. Will follow.
[2017-09-20] MEDS ORDERED: IMIPENEM/CILASTATIN IV 500 MG in DEXTROSE 5% 100ML 100 ML IV SCH (16:00)
--- NOTE | 2017-09-20 16:52 | Progress Note ---
Subjective Date of Service: Sep 20, 2017. Subjective Pt evaluation today including: conversation w/ patient, physical exam, chart review, lab review, review of studies, review of inpatient medication list Pain: Denies PO Intake: Good Voiding: rodriguez catheter in place 57 y/o female seen today for Dr. Morgan. The patient declined care from Dr. Morgan and I have been asked to see the patient. Information is obtained from admission note, prior hospital records, and from the patient herself. Overall, she notes feeling better this afternoon; breathing is easier compared to last evening. Problem List Medical Problems: (1) Acute renal disease Status: Acute (2) Acute renal failure Status: Acute (3) ELIZABETH (acute kidney injury) Status: Acute (4) ELIZABETH (acute kidney injury) Status: Acute (5) Anemia Status: Acute (6) Cellulitis Status: Acute (7) Cellulitis of both lower extremities Status: Acute (8) CHF (congestive heart failure) Status: Acute (9) CHF (congestive heart failure) Status: Acute (10) Dehydration Status: Acute (11) Fluid overload Status: Acute (12) Hypoxia Status: Acute (13) Pickwickian syndrome Status: Acute (14) Pneumonia Status: Acute (15) Respiratory failure Status: Acute (16) Sacral decubitus ulcer, stage III Status: Acute (17) UTI (urinary tract infection) Status: Acute Review of Systems Constitutional: No fever, No chills Eyes: No problem reported ENT: No problem reported Respiratory: + shortness of breath, No dyspnea on exertion, No dyspnea at rest Cardiac: + edema, No palpitations Abdomen: No pain, No nausea, No vomiting, No diarrhea, No constipation, No GI bleeding Female : No dysuria Neurologic: No memory loss Psychiatric: + depression symptoms Heme: No night sweats All Other Systems: Reviewed and Negative Medications Current Inpatient Medications Medications (Trade) Dose Ordered Sig/Bruno Route Start Time Stop Time Status Last Admin Dose Admin Heparin Sodium (Porcine) (Heparin Sq 5000 Unit/0.5ml) 5,000 unit Q12 SQ 09/19/17 21:00 10/19/17 20:59 Acetaminophen (Tylenol Tab) 650 mg Q4H PRN PO 09/19/17 15:45 10/19/17 15:44 Al Hydrox/Mg Hydrox/Simethicone (Maalox Max Susp) 15 ml Q4H PRN PO 09/19/17 15:45 10/19/17 15:44 Magnesium Hydroxide (Milk Of Magnesia Susp) 30 ml Q12H PRN PO 09/19/17 15:45 10/19/17 15:44 Ondansetron HCl (Zofran Inj) 4 mg Q6H PRN IV 09/19/17 15:45 10/19/17 15:44 Nitroglycerin (Nitrostat Tab) 0.4 mg UD PRN SL 09/19/17 15:45 10/19/17 15:44 Ergocalciferol (Vitamin D Cap) 50,000 interunit Fr@0900 PO 09/20/17 09:00 10/20/17 08:59 09/20/17 07:46 50,000 INTERUNIT Multi-Ingredient Ointment (Eucerin Unscented Cr) 1 appln BID EXT 09/19/17 21:00 10/19/17 20:59 Fluconazole (Diflucan Tab) 100 mg QAM PO 09/20/17 09:00 09/30/17 08:59 09/20/17 07:46 100 MG Glimepiride (Amaryl Tab) 2 mg QAM PO 09/20/17 09:00 10/20/17 08:59 09/20/17 07:45 2 MG Oxycodone HCl (Roxicodone Immediate Rel Tab) 5 mg Q6H PRN PO 09/19/17 15:45 10/03/17 15:44 09/20/17 05:58 5 MG Spironolactone (Aldactone Tab) 25 mg QD PO 09/19/17 15:45 10/19/17 15:44 Future Hold 09/19/17 20:17 25 MG Zolpidem Tartrate (Ambien Tab) 5 mg HS PO 09/19/17 21:00 10/19/17 20:59 Lactobacillus Acidophilus (Floranex Tab) 4 tab TIDM PO 09/19/17 18:00 10/19/17 17:59 09/20/17 07:45 4 TAB Hydromorphone HCl (Dilaudid Inj) 0.5 mg Q4H PRN IV 09/19/17 16:15 10/03/17 16:14 09/19/17 20:28 0.5 MG Imipenem/ Cilastatin Sodium (Consult) 1 ea UD PRN N/A 09/19/17 19:15 10/19/17 19:14 Daptomycin (Consult) 1 ea UD PRN N/A 09/19/17 20:30 10/19/17 20:29 Daptomycin 650 mg/ Syringe 13 ml @ 6.5 mls/min Q48H IV 09/20/17 12:00 09/30/17 11:59 09/20/17 10:57 6.5 MLS/MIN Ascorbic Acid (Vitamin C Tab) 500 mg QAM PO 09/20/17 09:00 10/20/17 08:59 09/20/17 07:46 500 MG Zinc Sulfate (Zinc Sulfate Cap) 220 mg QAM PO 09/20/17 09:00 10/20/17 08:59 09/20/17 07:46 220 MG Multivitamins/ Minerals (Multivitamin W/ Minerals Tab) 1 tab QAM PO 09/20/17 09:00 10/20/17 08:59 09/20/17 07:46 1 TAB Bumetanide 2 mg/ Syringe 8 ml @ 4 mls/min BID@0900,1700 IV 09/20/17 09:00 10/20/17 08:59 09/20/17 17:08 4 MLS/MIN Imipenem/ Cilastatin Sodium 500 mg/Dextrose 110 ml @ 100 mls/hr Q12H IV 09/20/17 18:00 09/30/17 17:59 09/20/17 17:08 100 MLS/HR Objective Vital Signs Date Time Temp Pulse Resp B/P (MAP) Pulse Ox O2 Delivery O2 Flow Rate FiO2 09/20/17 15:59 37.0 99 34 105/66 (79) 92 Nasal Cannula 4.0 09/20/17 12:10 95 Nasal Cannula 4.0 09/20/17 11:33 36.7 96 20 96/56 (69) 92 Nasal Cannula 4.0 09/20/17 08:01 95 Nasal Cannula 4.0 09/20/17 07:20 36.6 98 20 137/117 (124) 95 Nasal Cannula 4.0 09/20/17 06:08 36.9 102 21 109/56 (73) 94 Nasal Cannula 4.0 09/20/17 04:00 Nasal Cannula 4.0 09/20/17 01:04 37.0 102 20 93/57 (69) 91 Nasal Cannula 3.0 09/20/17 00:00 Nasal Cannula 4.0 09/19/17 20:00 Nasal Cannula 4.0 09/19/17 18:45 94 Mask 8.0 09/19/17 18:20 37.2 98 24 128/70 (89) 94 Oxymask 8.0 Physical Exam General Appearance: WD/WN, no apparent distress Eyes: normal inspection, PERRL, EOMI ENT: normal ENT inspection, hearing grossly normal, pharynx normal Neck: supple, no adenopathy, thyroid normal, no JVD Respiratory/Chest: chest non-tender, no respiratory distress, no accessory muscle use, + pertinent finding (Clear but decreased breath sounds, likely secondary to body habitus) Cardiovascular: regular rate, rhythm, + systolic murmur (2/, RSB), + pertinent finding (B/L LE edema) Abdomen: normal bowel sounds, non tender, + pertinent finding (Reducible inguinal herna; mild erythema, dry skin) Extremities: + inflammation, + pedal edema, + swelling, + pertinent finding ( LE wounds wrapped post wound care, not removed for my examination today.) Neurologic/Psychiatric: alert, normal mood/affect, oriented x 3 Laboratory Results Last 24 Hours Test 09/19/17 18:34 09/19/17 20:30 09/19/17 21:33 09/20/17 05:46 Bedside Glucose 153 mg/dl 207 mg/dl Urine Color YELLOW Urine Appearance CLOUDY Urine pH 5.0 Urine Specific [place] 1.011 Urine Protein 2+ Urine Glucose (UA) NEG Urine Ketones NEG Urine Occult Blood 2+ Urine Nitrite NEG Urine Bilirubin NEG Urine Urobilinogen NEG Urine Leukocyte Esterase LARGE Urine WBC (Auto) >30 /hpf Urine RBC (Auto) 5-10 /hpf Urine Hyaline Casts (Auto) 1-5 /lpf Urine Epithelial Cells (Auto) >30 /lpf Urine Bacteria (Auto) 1+ Urine Pathogenic Casts 5-10 GRANULAR CASTS /lpf Urine Yeast (Auto) Urine Random Creatinine 23.0 mg/dl Urine Random Sodium 106 mEq/L White Blood Count 6.51 K/uL Red Blood Count 3.62 M/uL Hemoglobin 9.2 g/dL Hematocrit 29.8 % Mean Corpuscular Volume 82.3 fL Mean Corpuscular Hemoglobin 25.4 pg Mean Corpuscular Hemoglobin Concent 30.9 g/dl Platelet Count 131 K/uL Mean Platelet Volume 9.9 fL Neutrophils (%) (Auto) 74.3 % Lymphocytes (%) (Auto) 14.0 % Monocytes (%) (Auto) 8.4 % Eosinophils (%) (Auto) 2.8 % Basophils (%) (Auto) 0.3 % Neutrophils # (Auto) 4.84 K/uL Lymphocytes # (Auto) 0.91 K/uL Monocytes # (Auto) 0.55 K/uL Eosinophils # (Auto) 0.18 K/uL Basophils # (Auto) 0.02 K/uL RDW Standard Deviation 64.9 fL RDW Coefficient of Variation 21.1 % Immature Granulocyte % (Auto) 0.2 % Immature Granulocyte # (Auto) 0.01 K/uL Platelet Estimate NORMAL Anisocytosis PRESENT Ovalocytes 1+ Sodium Level 135 mmol/L Potassium Level 4.1 mmol/L Chloride Level 99 mmol/L Carbon Dioxide Level 26 mmol/L Anion Gap 10.0 mmol/L Blood Urea Nitrogen 87 mg/dl Creatinine 4.20 mg/dl Est Creatinine Clear Calc Drug Dose 19.1 ml/min Estimated GFR () 12.6 Estimated GFR (Non- 10.9 BUN/Creatinine Ratio 20.6 Random Glucose 81 mg/dl Calcium Level 8.5 mg/dl Magnesium Level 1.7 mg/dl Test 09/20/17 06:39 09/20/17 11:32 Bedside Glucose 81 mg/dl 127 mg/dl Assessment and Plan 57yo female with chronic hypoxic/hypercarbic respiratory failure on home O2, uncontrolled diabetes, CKD stage 4, chronic LE wounds, and chronic right sided heart failure (cor pulmonale) presenting with ARF, acute/chronic cor pulmonale, and worsening LE wounds bilateral but most severe on the right leg. Acute/chronic right sided heart failure / acute/chronic diastolic CHF Bumex 2mg IV BID Holding metazolone and Aldactone BMP daily Strict I's and O's Fluid restrict to 1500cc/day and 2 gram salt restriction. Consider resuming aldactone if Creatinine and potassium will allow. Appreciate nephrology consultation Acute renal failure Nephrology consult New rodriguez placed upon admission Daily BMP Stage 3 decubitus sacral ulcer and wounds of the LEs ID and Wound Care consults appreciated Zinc, Vitamin C, and MVI added to promote wound healing Aquacel Ag to the sacral wound with optifoam, and Aquacel with optifoam to all leg/foot wounds. Imipenem and daptomycin pending further culture results T2DM, Uncontrolled Noncompliance with diet. Patient declines insulin injection and has been counseled previously regarding risks of amaryl with kidney disease. INSULIN HAS BEEN ADVISED BUT SHE REFUSES ALL INSULIN INJECTIONS. Proceed forward with Amaryl cautiously. BSGs ac/hs. chronic hypoxic/hypercarbic respiratory failure Secondary to COPD, ROHAN, and suspect obesity-hypoventilation syndrome She declines CPAP here due to the masks (she will only use the mask she has at home). night-time BiPAP ordered for her but uncertain if she will comply; [facility]. Hyponatremia Mild Monitor Hypomagnesemia Monitor Other non acute Anemia - chronic - 2nd to CKD; H/H acceptable today. COPD - stable, without exacerbation. chronic intertrigo - remains on Diflucan daily. morbid obesity with BMI 42.7 deconditioning - PT, OT. DVT proph - heparin 5000 BID.
[2017-09-20] MEDS: IMIPENEM/CILASTATIN IV 500 MG in DEXTROSE 5% 100ML 100 ML IV SCH (17:08)
--- NOTE | 2017-09-20 19:16 | Nephrology Consultation ---
Nephrology Consultation Date of Consultation: Sep 20, 2017. Attending Physician: Dr Giraldo Requesting Physician: Dr Luis Reason for Consultation: acute on chronic renal failure History of Present Illness 57-year-old female with history of CKD stage IV who does not historically follow with a low vision therapist w/morbid obesity c/b chronic R HF, longstanding DM, chronic sacral and lower extremity ulcers admitted yesterday for worsening volume overload (about 10 kg wt gain since July), worsening / acute on chronic wound infections w/ new RLE blisters and foul smelling sacral decubitus , R>L worsening edema, and ELIZABETH on CKD. Her presenting creatinine was 4; baseline is about 2 as of 06/2017 admission here. This am creatinine is 4.2. She is noncompliant w/ fluid, diet restrictions and bipap at her facility. She is essentially bedbound. Has been on IV cefepime and daptomycin for MRSA (? source), and for R ankle wound growing Klebsiella and Pseudomonas. Past Medical/Surgical History Medical Problems: (1) Acute renal disease Status: Acute (2) Acute renal failure Status: Acute (3) ELIZABETH (acute kidney injury) Status: Acute (4) ELIZABETH (acute kidney injury) Status: Acute (5) Anemia Status: Acute (6) Cellulitis Status: Acute (7) Cellulitis of both lower extremities Status: Acute (8) CHF (congestive heart failure) Status: Acute (9) CHF (congestive heart failure) Status: Acute (10) Dehydration Status: Acute (11) Fluid overload Status: Acute (12) Hypoxia Status: Acute (13) Pickwickian syndrome Status: Acute (14) Pneumonia Status: Acute (15) Respiratory failure Status: Acute (16) Sacral decubitus ulcer, stage III Status: Acute (17) UTI (urinary tract infection) Status: Acute -chronic right-sided and diastolic heart failure -chronic lower extremity ulcerations on R heel, R achilles tendon s/p multiple debridements -Stage 3 sacral decubitus ulcer s/p multiple debriiddemnts -chronic indwelling Rodriguez -COPD -CKD stage IV -anemia of chronic disease w/ past iron deficiency -type 2 diabetes w/ poor control -obstructive sleep apnea on bipap -class 3 obesity -s/p IVC filter -s/p L hip ORIF Family History No pertinent family history Social History Smoking Status: Former Smoker Drug Use: none Marital Status: single Occupation Status: disabled Allergies Coded Allergies: Vancomycin (Verified Allergy, Severe, ANAPHYLAXIS, 09/19/17) pt began shaking,face and neck bright red rash.o2 saturation dropping to 84% on 15lnrb Ampicillin (Verified Allergy, Mild, RASH, 09/19/17) Clindamycin (Verified Allergy, Mild, RASH, 09/19/17) Linezolid (Verified Allergy, Mild, RASH, 09/19/17) Penicillins (Verified Allergy, Mild, RASH, 09/19/17) Ciprofloxacin (Verified Adverse Reaction, Mild, MUSCLE ACHES, 09/19/17) muscle aches Methimazole (Verified Adverse Reaction, Mild, headache, 09/19/17) headache Nystatin (Verified Adverse Reaction, Mild, nausea, abd pain, kidney pain, 09/19/17) nausea, abd pain,kidney pain Medications Current Inpatient Medications Medications (Trade) Dose Ordered Sig/Bruno Route Start Time Stop Time Status Last Admin Dose Admin Heparin Sodium (Porcine) (Heparin Sq 5000 Unit/0.5ml) 5,000 unit Q12 SQ 09/19/17 21:00 10/19/17 20:59 Acetaminophen (Tylenol Tab) 650 mg Q4H PRN PO 09/19/17 15:45 10/19/17 15:44 Al Hydrox/Mg Hydrox/Simethicone (Maalox Max Susp) 15 ml Q4H PRN PO 09/19/17 15:45 10/19/17 15:44 Magnesium Hydroxide (Milk Of Magnesia Susp) 30 ml Q12H PRN PO 09/19/17 15:45 10/19/17 15:44 Ondansetron HCl (Zofran Inj) 4 mg Q6H PRN IV 09/19/17 15:45 10/19/17 15:44 Nitroglycerin (Nitrostat Tab) 0.4 mg UD PRN SL 09/19/17 15:45 10/19/17 15:44 Ergocalciferol (Vitamin D Cap) 50,000 interunit Fr@0900 PO 09/20/17 09:00 10/20/17 08:59 09/20/17 07:46 50,000 INTERUNIT Multi-Ingredient Ointment (Eucerin Unscented Cr) 1 appln BID EXT 09/19/17 21:00 10/19/17 20:59 Fluconazole (Diflucan Tab) 100 mg QAM PO 09/20/17 09:00 09/30/17 08:59 09/20/17 07:46 100 MG Glimepiride (Amaryl Tab) 2 mg QAM PO 09/20/17 09:00 10/20/17 08:59 09/20/17 07:45 2 MG Oxycodone HCl (Roxicodone Immediate Rel Tab) 5 mg Q6H PRN PO 09/19/17 15:45 10/03/17 15:44 09/20/17 05:58 5 MG Spironolactone (Aldactone Tab) 25 mg QD PO 09/19/17 15:45 10/19/17 15:44 Future Hold 09/19/17 20:17 25 MG Zolpidem Tartrate (Ambien Tab) 5 mg HS PO 09/19/17 21:00 10/19/17 20:59 Imipenem/ Cilastatin Sodium 250 mg/Dextrose 110 ml @ 100 mls/hr Q6H IV 09/19/17 20:00 09/29/17 19:59 09/20/17 08:04 100 MLS/HR Lactobacillus Acidophilus (Floranex Tab) 4 tab TIDM PO 09/19/17 18:00 10/19/17 17:59 09/20/17 07:45 4 TAB Magnesium Oxide (Mag-Ox Tab) 400 mg BID PO 09/19/17 21:00 09/20/17 09:01 09/20/17 07:46 400 MG Hydromorphone HCl (Dilaudid Inj) 0.5 mg Q4H PRN IV 09/19/17 16:15 10/03/17 16:14 09/19/17 20:28 0.5 MG Imipenem/ Cilastatin Sodium (Consult) 1 ea UD PRN N/A 09/19/17 19:15 10/19/17 19:14 Daptomycin (Consult) 1 ea UD PRN N/A 09/19/17 20:30 10/19/17 20:29 Daptomycin 650 mg/ Syringe 13 ml @ 6.5 mls/min Q48H IV 09/20/17 12:00 09/30/17 11:59 Ascorbic Acid (Vitamin C Tab) 500 mg QAM PO 09/20/17 09:00 10/20/17 08:59 09/20/17 07:46 500 MG Zinc Sulfate (Zinc Sulfate Cap) 220 mg QAM PO 09/20/17 09:00 10/20/17 08:59 09/20/17 07:46 220 MG Multivitamins/ Minerals (Multivitamin W/ Minerals Tab) 1 tab QAM PO 09/20/17 09:00 10/20/17 08:59 09/20/17 07:46 1 TAB Home Meds and Scripts Medications Dose Route/Sig Max Daily Dose Days Date Category Dose Instructions Glimepiride 2 Mg Tab 1 Tab PO QAM 09/19/17 Reported Vitamin D 41338 Unit (Ergocalciferol) 50,000 Unit Cap 1 Tab PO FRI 09/19/17 Reported Roxicodone Ir (Oxycodone HCl) 5 Mg Tab 5 Mg PO Q6H PRN 09/19/17 Reported Daptomycin 500 Mg Inj 650 Mg IV 1200 09/19/17 Reported [Clotrimazole 45GM] 1 Dose TOP BID PRN 09/19/17 Reported Diflucan (Fluconazole) 100 Mg Tab 100 Mg PO QAM 09/19/17 Reported Cefepime (Cefepime Hcl) 2 Gm Inj 2 Gm IV 1200 08/26/17 Reported Metolazone 5 Mg Tab 5 Mg PO TTH 06/25/17 Reported Take 30 min prior to bumex Aldactone (Spironolactone) 25 Mg Tab 25 Mg PO QD 05/30/17 Reported Bumex (Bumetanide) 1 Mg Tab 1 Tab PO BID 05/30/17 Reported Oxygen Gas 3 Liters NA CONTINOUS 03/15/17 Reported Ambien (Zolpidem Tartrate) 5 Mg Tab 1 Tab PO HS 01/19/16 Reported Hydrocerin (Multi-Ingredient Ointment) 360 Appln/120 Gm Cr 1 Appln EXT BID 30 10/07/15 Rx Review of Systems Constitutional: + weakness, + fatigue, No fever Eyes: No worsening of vision ENT: No hearing loss Respiratory: + shortness of breath, + dyspnea on exertion, No dyspnea at rest Cardiac: + edema, No chest pain, No orthopnea, No palpitations Abdomen: No pain, No nausea, No vomiting, No diarrhea, No constipation Musculoskeletal: No joint pain, No muscle pain Female : + problem reported (nochange in chronic rodriguez) Neuro: + weakness, + balance problems, No memory loss Psych: No depression symptoms, No anxiety Heme: No abnormal bleeding/bruising Endo: + fatigue Skin: + rash, + itch Physical Exam Date Time Temp Pulse Resp B/P (MAP) Pulse Ox O2 Delivery O2 Flow Rate FiO2 09/20/17 06:08 36.9 102 21 109/56 (73) 94 Nasal Cannula 4.0 09/20/17 04:00 Nasal Cannula 4.0 09/20/17 01:04 37.0 102 20 93/57 (69) 91 Nasal Cannula 3.0 09/20/17 00:00 Nasal Cannula 4.0 09/19/17 20:00 Nasal Cannula 4.0 09/19/17 18:45 94 Mask 8.0 09/19/17 18:20 37.2 98 24 128/70 (89) 94 Oxymask 8.0 09/19/17 16:20 103 09/19/17 16:00 81 16 98/64 91 Nasal Cannula 4.0 09/19/17 16:00 91 Nasal Cannula 3.0 09/19/17 13:39 86 22 97/61 94 Nasal Cannula 3.0 09/19/17 10:45 36.7 72 18 116/75 99 General Appearance: WD/WN, no apparent distress, + obese, + pertinent finding ( chronically ill) ENT: hearing grossly normal Neck: supple Respiratory/Chest: + decreased breath sounds Cardiovascular: + tachycardia, + pertinent finding Abdomen: non tender, soft, + pertinent finding (rodriguez w/ ample urine) Extremities: + swelling (2+ BL thighs) Neurologic/Psych: alert, normal mood/affect, oriented x 3, + motor weakness Skin: no jaundice, warm/dry, + pallor (BL distal LE wrapped; sacrum not examined) Diagnostics Last 24 Hours Test 09/19/17 11:55 09/19/17 12:50 09/19/17 18:34 09/19/17 20:30 White Blood Count 9.77 K/uL Red Blood Count 3.99 M/uL Hemoglobin 10.1 g/dL Hematocrit 33.0 % Mean Corpuscular Volume 82.7 fL Mean Corpuscular Hemoglobin 25.3 pg Mean Corpuscular Hemoglobin Concent 30.6 g/dl Platelet Count 178 K/uL Neutrophils (%) (Auto) 84.7 % Lymphocytes (%) (Auto) 6.9 % Monocytes (%) (Auto) 6.8 % Eosinophils (%) (Auto) 1.1 % Basophils (%) (Auto) 0.2 % Neutrophils # (Auto) 8.28 K/uL Lymphocytes # (Auto) 0.67 K/uL Monocytes # (Auto) 0.66 K/uL Eosinophils # (Auto) 0.11 K/uL Basophils # (Auto) 0.02 K/uL RDW Standard Deviation 67.1 fL RDW Coefficient of Variation 21.8 % Immature Granulocyte % (Auto) 0.3 % Immature Granulocyte # (Auto) 0.03 K/uL Hypochromasia PRESENT Anisocytosis PRESENT Ovalocytes 1+ Prothrombin Time 13.8 SECONDS Prothromb Time International Ratio 1.3 Activated Partial Thromboplast Time 30.8 SECONDS Partial Thromboplastin Ratio 1.2 Sodium Level 133 mmol/L Potassium Level 4.3 mmol/L Chloride Level 98 mmol/L Carbon Dioxide Level 27 mmol/L Anion Gap 8.0 mmol/L Blood Urea Nitrogen 84 mg/dl Creatinine 4.08 mg/dl Estimated GFR () 13.0 Estimated GFR (Non- 11.3 BUN/Creatinine Ratio 20.6 Random Glucose 161 mg/dl Calcium Level 8.9 mg/dl Magnesium Level 1.7 mg/dl Total Bilirubin 0.5 mg/dl Aspartate Amino Transf (AST/SGOT) 8 U/L Alanine Aminotransferase (ALT/SGPT) 10 U/L Alkaline Phosphatase 81 U/L Total Creatine Kinase 21 U/L Creatine Kinase MB 1.7 ng/ml Creatine Kinase MB Ratio 8.1 Troponin I < 0.015 ng/ml Total Protein 7.9 gm/dl Albumin 2.7 gm/dl Globulin 5.2 gm/dl Albumin/Globulin Ratio 0.5 Thyroid Stimulating Hormone (TSH) 0.964 uIu/ml Lactic Acid Level 1.1 mmol/L Bedside Glucose 153 mg/dl Urine Color YELLOW Urine Appearance CLOUDY Urine pH 5.0 Urine Specific Malone 1.011 Urine Protein 2+ Urine Glucose (UA) NEG Urine Ketones NEG Urine Occult Blood 2+ Urine Nitrite NEG Urine Bilirubin NEG Urine Urobilinogen NEG Urine Leukocyte Esterase LARGE Urine WBC (Auto) >30 /hpf Urine RBC (Auto) 5-10 /hpf Urine Hyaline Casts (Auto) 1-5 /lpf Urine Epithelial Cells (Auto) >30 /lpf Urine Bacteria (Auto) 1+ Urine Pathogenic Casts 5-10 GRANULAR CASTS /lpf Urine Yeast (Auto) Urine Random Creatinine 23.0 mg/dl Urine Random Sodium 106 mEq/L Test 09/19/17 21:33 09/20/17 05:46 09/20/17 06:39 Bedside Glucose 207 mg/dl 81 mg/dl White Blood Count 6.51 K/uL Red Blood Count 3.62 M/uL Hemoglobin 9.2 g/dL Hematocrit 29.8 % Mean Corpuscular Volume 82.3 fL Mean Corpuscular Hemoglobin 25.4 pg Mean Corpuscular Hemoglobin Concent 30.9 g/dl Platelet Count 131 K/uL Mean Platelet Volume 9.9 fL Neutrophils (%) (Auto) 74.3 % Lymphocytes (%) (Auto) 14.0 % Monocytes (%) (Auto) 8.4 % Eosinophils (%) (Auto) 2.8 % Basophils (%) (Auto) 0.3 % Neutrophils # (Auto) 4.84 K/uL Lymphocytes # (Auto) 0.91 K/uL Monocytes # (Auto) 0.55 K/uL Eosinophils # (Auto) 0.18 K/uL Basophils # (Auto) 0.02 K/uL RDW Standard Deviation 64.9 fL RDW Coefficient of Variation 21.1 % Immature Granulocyte % (Auto) 0.2 % Immature Granulocyte # (Auto) 0.01 K/uL Platelet Estimate NORMAL Anisocytosis PRESENT Ovalocytes 1+ Sodium Level 135 mmol/L Potassium Level 4.1 mmol/L Chloride Level 99 mmol/L Carbon Dioxide Level 26 mmol/L Anion Gap 10.0 mmol/L Blood Urea Nitrogen 87 mg/dl Creatinine 4.20 mg/dl Est Creatinine Clear Calc Drug Dose 19.1 ml/min Estimated GFR () 12.6 Estimated GFR (Non- 10.9 BUN/Creatinine Ratio 20.6 Random Glucose 81 mg/dl Calcium Level 8.5 mg/dl Magnesium Level 1.7 mg/dl Diagnostic Radiology: cxr mild vascular congestion; no effusion or PNA Assessment & Plan 57 y/o F w/ morbid obesity, chronic wounds in sacrum and RLE on long-term IV abtx as well as fluconazole, cor pulmonale, DM, CKD4 w/ baseline creatinine 2 admitted 09/19 w/ 20-30 lb wt gain, worsening LE and sacral wounds, ELIZABETH on CKD w/ presenting creatinien 4. Her SBP is on lower side. Her anemia and serum chemistries are for the moment acceptable. ELIZABETH on CKD 4 Presume cardiorenal syndrome versus ATN -no emergent indication for dialysis; not at all clear that she is a candidate d /t chronic infections, debilitated status, poor blood pressures; she further states this evening w/o my asking that she would not want it -was on bumex, metolazone, and spironolactone as outpt > both currently held; will start bumex 2 mg iv bid and follow trends; she needs diuretics for cardiopulmonary issues and to improve her wound healing -daily bmp -fluconazole dose reasonable per pharmacy -- did discuss w/ them -w/ chronic rodriguez even w/ exchange her urine sediment will almost always look inflamed and urine cx will almost always be +; defer to primary service and to inf dzs how much to follow urine studies for infection -the proteinuria/microhematuria are chronic for her; would not at least immediately evaluate for glomerular disease as she will not be a candidate for biopsy or immunosuppression -ordered <2 gm daily Na diet and fluid limit -magnesium a bit low > ordered recheck for am Anemia of chronic disease -ordered iron studies for am -could consider epo; not likely a great venofer candidate but will check iron stores Appreciate consult; will follow with you.
[2017-09-20] MEDS: HYDROmorphone INJ 0.5 MG/0.5 ML SYR IV PRN (20:46)
[2017-09-20] MEDS: ZOLPIDEM TARTRATE 5 MG TAB PO SCH (21:00)
[2017-09-21 04:00] VITALS: BP 93/57; PULSE 96; TEMP 36.8; O2SAT 94
[2017-09-21] MEDS: IMIPENEM/CILASTATIN IV 500 MG in DEXTROSE 5% 100ML 100 ML IV SCH ×2 (06:17→16:35)
[2017-09-21] MEDS: HYDROmorphone INJ 0.5 MG/0.5 ML SYR IV PRN ×3 (06:17→20:12)
[2017-09-21 06:27] LABS: HEMATOCRIT 31.5 % (37-47); HEMOGLOBIN 9.6 g/dL (12.0-16.0); MEAN CELL VOLUME 81.8 fL (80-100); MEAN CORPUSCULAR HEMOGLOBIN 24.9 pg (25-34); MEAN CORPUSCULAR HGB CONC 30.5 g/dl (32-36); MEAN PLATELET VOLUME 9.7 fL (7.4-10.4); PLATELET COUNT 151 K/uL (130-400); RED CELL DISTRIBUTION WIDTH SD 64.3 fL (36.4-46.3); WHITE BLOOD COUNT 6.82 K/uL (4.8-10.8)
[2017-09-21 06:56] VITALS: BP 117/53; PULSE 95; TEMP 36.6; O2SAT 95
[2017-09-21 07:10] LABS: CALCIUM 8.3 mg/dl (8.5-10.1); CREATININE 4.61 mg/dl (0.60-1.20); POTASSIUM 4.6 mmol/L (3.5-5.1)
[2017-09-21] MEDS: GLIMEPIRIDE 2 MG TAB PO SCH (08:42)
[2017-09-21] MEDS: LACTOBACILLUS ACIDOPHILUS (FLORANEX) TAB PO SCH ×3 (08:42→16:35)
[2017-09-21] MEDS: FLUCONAZOLE 100 MG TAB PO SCH (08:43)
[2017-09-21] MEDS: HEPARIN SOD 5000 UNIT/0.5 ML CARP SQ SCH ×2 (08:43→21:00)
[2017-09-21] MEDS: CEROVITE ADV FORMULA TAB PO SCH (08:43)
[2017-09-21] MEDS: ZINC SULFATE 220 MG CAP PO SCH (08:44)
[2017-09-21] MEDS: ASCORBIC ACID 500 MG TAB PO SCH (08:44)
[2017-09-21] MEDS: EUCERIN CR 120 GM JAR EXT SCH ×2 (08:47→21:00)
[2017-09-21] MEDS: BUMETANIDE IV 2 MG in SYRINGE 0 ML IV SCH ×2 (08:49→16:36)
--- NOTE | 2017-09-21 10:24 | Nephrology Progress Note ---
Nephrology Progress Note Date of Service: Sep 21, 2017. Subjective 57 yo female with lymphedema/volume overload/weeping ulcers/jonny. on diuretics and creatinine slowly worsening. volume status though is improving. pt comfortable. not uremic. Objective Date Time Temp Pulse Resp B/P (MAP) Pulse Ox O2 Delivery O2 Flow Rate FiO2 09/21/17 08:15 Nasal Cannula 4.0 09/21/17 06:56 36.6 95 20 117/53 (74) 95 Nasal Cannula 4.0 09/21/17 04:00 Nasal Cannula 4.0 09/21/17 04:00 36.8 96 19 93/57 (69) 94 Nasal Cannula 4.0 09/21/17 00:00 Nasal Cannula 4.0 09/20/17 23:43 36.8 101 22 94/62 (73) 94 Nasal Cannula 4.0 09/20/17 20:08 36.2 98 17 108/69 (82) 92 Nasal Cannula 4.0 09/20/17 20:00 Nasal Cannula 4.0 09/20/17 16:01 95 Nasal Cannula 4.0 09/20/17 15:59 37.0 99 34 105/66 (79) 92 Nasal Cannula 4.0 09/20/17 12:10 95 Nasal Cannula 4.0 09/20/17 11:33 36.7 96 20 96/56 (69) 92 Nasal Cannula 4.0 Physical Exam: General-aaox3 Eyes-no scleral icterus ENT-mmm Neck-supple Lungs-decreased at the bases Heart-rrr Abdomen-bs+/soft/nontender Extremities-mild edema in the lower extremities trending up into the hips, wrapped and weeping Neuro-nonfocal Current Inpatient Medications Medications (Trade) Dose Ordered Sig/Bruno Route Start Time Stop Time Status Last Admin Dose Admin Heparin Sodium (Porcine) (Heparin Sq 5000 Unit/0.5ml) 5,000 unit Q12 SQ 09/19/17 21:00 10/19/17 20:59 Acetaminophen (Tylenol Tab) 650 mg Q4H PRN PO 09/19/17 15:45 10/19/17 15:44 Al Hydrox/Mg Hydrox/Simethicone (Maalox Max Susp) 15 ml Q4H PRN PO 09/19/17 15:45 10/19/17 15:44 Magnesium Hydroxide (Milk Of Magnesia Susp) 30 ml Q12H PRN PO 09/19/17 15:45 10/19/17 15:44 Ondansetron HCl (Zofran Inj) 4 mg Q6H PRN IV 09/19/17 15:45 10/19/17 15:44 Nitroglycerin (Nitrostat Tab) 0.4 mg UD PRN SL 09/19/17 15:45 10/19/17 15:44 Ergocalciferol (Vitamin D Cap) 50,000 interunit Fr@0900 PO 09/20/17 09:00 10/20/17 08:59 09/20/17 07:46 50,000 INTERUNIT Multi-Ingredient Ointment (Eucerin Unscented Cr) 1 appln BID EXT 09/19/17 21:00 10/19/17 20:59 Fluconazole (Diflucan Tab) 100 mg QAM PO 09/20/17 09:00 09/30/17 08:59 09/21/17 08:43 100 MG Glimepiride (Amaryl Tab) 2 mg QAM PO 09/20/17 09:00 10/20/17 08:59 09/21/17 08:42 2 MG Oxycodone HCl (Roxicodone Immediate Rel Tab) 5 mg Q6H PRN PO 09/19/17 15:45 10/03/17 15:44 09/20/17 19:31 5 MG Spironolactone (Aldactone Tab) 25 mg QD PO 09/19/17 15:45 10/19/17 15:44 Future Hold 09/19/17 20:17 25 MG Zolpidem Tartrate (Ambien Tab) 5 mg HS PO 09/19/17 21:00 10/19/17 20:59 Lactobacillus Acidophilus (Floranex Tab) 4 tab TIDM PO 09/19/17 18:00 10/19/17 17:59 09/21/17 08:42 4 TAB Hydromorphone HCl (Dilaudid Inj) 0.5 mg Q4H PRN IV 09/19/17 16:15 10/03/17 16:14 09/21/17 06:17 0.5 MG Imipenem/ Cilastatin Sodium (Consult) 1 ea UD PRN N/A 09/19/17 19:15 10/19/17 19:14 Daptomycin (Consult) 1 ea UD PRN N/A 09/19/17 20:30 10/19/17 20:29 Daptomycin 650 mg/ Syringe 13 ml @ 6.5 mls/min Q48H IV 09/20/17 12:00 09/30/17 11:59 09/20/17 10:57 6.5 MLS/MIN Ascorbic Acid (Vitamin C Tab) 500 mg QAM PO 09/20/17 09:00 10/20/17 08:59 09/20/17 07:46 500 MG Zinc Sulfate (Zinc Sulfate Cap) 220 mg QAM PO 09/20/17 09:00 10/20/17 08:59 09/20/17 07:46 220 MG Multivitamins/ Minerals (Multivitamin W/ Minerals Tab) 1 tab QAM PO 09/20/17 09:00 10/20/17 08:59 09/20/17 07:46 1 TAB Bumetanide 2 mg/ Syringe 8 ml @ 4 mls/min BID@0900,1700 IV 09/20/17 09:00 10/20/17 08:59 09/21/17 08:49 4 MLS/MIN Imipenem/ Cilastatin Sodium 500 mg/Dextrose 110 ml @ 100 mls/hr Q12H IV 09/20/17 18:00 09/30/17 17:59 09/21/17 06:17 100 MLS/HR Albumin Human (Albumin 25%) 12.5 gm BID IV 09/21/17 10:00 09/24/17 09:59 UNV Iron Sucrose 100 mg/Sodium Chloride 105 ml @ 420 mls/hr DAILY IV 09/22/17 09:00 09/24/17 09:14 UNV Last 24 Hours Test 09/20/17 11:32 09/20/17 16:37 09/21/17 06:16 09/21/17 06:55 Bedside Glucose 127 mg/dl 109 mg/dl 69 mg/dl White Blood Count 6.82 K/uL Red Blood Count 3.85 M/uL Hemoglobin 9.6 g/dL Hematocrit 31.5 % Mean Corpuscular Volume 81.8 fL Mean Corpuscular Hemoglobin 24.9 pg Mean Corpuscular Hemoglobin Concent 30.5 g/dl RDW Standard Deviation 64.3 fL RDW Coefficient of Variation 21.0 % Platelet Count 151 K/uL Mean Platelet Volume 9.7 fL Sodium Level 134 mmol/L Potassium Level 4.6 mmol/L Chloride Level 97 mmol/L Carbon Dioxide Level 27 mmol/L Anion Gap 10.0 mmol/L Blood Urea Nitrogen 96 mg/dl Creatinine 4.61 mg/dl Est Creatinine Clear Calc Drug Dose 17.4 ml/min Estimated GFR () 11.3 Estimated GFR (Non- 9.7 BUN/Creatinine Ratio 20.8 Random Glucose 52 mg/dl Calcium Level 8.3 mg/dl Magnesium Level 1.6 mg/dl Iron Level 27 mcg/dl Total Iron Binding Capacity 185 mcg/dl Transferrin 153 mg/dl Transferrin % Saturation 13 % Assessment & Plan [id number] status is improving-continue current diuretics. creatinine though trending up. adding albumin in hopes of mobilizing the fluid into the intravascular space. iron deficiency-iron sat is low and added venofer 100mg iv daily for next three days.
[2017-09-21] MEDS: ALBUMIN HUMAN 25% 12.5 GM/50 ML VIAL IV SCH ×2 (11:18→22:24)
[2017-09-21] MEDS: IRON SUCROSE INJ 100 MG in SODIUM CHLORIDE 0.9% 100ML 100 ML IV SCH (11:21)
[2017-09-21 12:15] VITALS: O2SAT 93
[2017-09-21] MEDS: OXYCODONE HCL IR 5 MG TAB (IMMEDIATE RELEASE) PO PRN (15:23)
[2017-09-21 16:16] VITALS: BP 122/69; PULSE 99; TEMP 37.3; O2SAT 92
--- NOTE | 2017-09-21 19:19 | Family Medicine Progress Note ---
Progress Note Date of Service Sep 21, 2017. Subjective Pt evaluation today including: conversation w/ patient, physical exam, chart review, lab review Pain: Patient reports significant pain in her lower limbs PO Intake: Tolerating PO diet well Voiding: rodriguez catheter in place Patient admits to refusing medications because she's "never told why she needs these medications, and they don't help". She c/o lower limb pain but refuses ultrasound due to pain from compression of probe and declines MRI due to discomfort of the table and claustrophobia. Constitutional: + weakness Respiratory: + cough, + shortness of breath, + dyspnea on exertion Cardiovascular: + orthopnea, + edema Abdomen: No pain, No nausea, No vomiting Musculoskeletal: + swelling, + calf pain Neurologic: + balance problems Psychiatric: + anxiety Skin: + new/changing skin lesions All Other Systems: Reviewed and Negative Medications Current Inpatient Medications Medications (Trade) Dose Ordered Sig/Bruno Route Start Time Stop Time Status Last Admin Dose Admin Heparin Sodium (Porcine) (Heparin Sq 5000 Unit/0.5ml) 5,000 unit Q12 SQ 09/19/17 21:00 10/19/17 20:59 Acetaminophen (Tylenol Tab) 650 mg Q4H PRN PO 09/19/17 15:45 10/19/17 15:44 Al Hydrox/Mg Hydrox/Simethicone (Maalox Max Susp) 15 ml Q4H PRN PO 09/19/17 15:45 10/19/17 15:44 Magnesium Hydroxide (Milk Of Magnesia Susp) 30 ml Q12H PRN PO 09/19/17 15:45 10/19/17 15:44 Ondansetron HCl (Zofran Inj) 4 mg Q6H PRN IV 09/19/17 15:45 10/19/17 15:44 Nitroglycerin (Nitrostat Tab) 0.4 mg UD PRN SL 09/19/17 15:45 10/19/17 15:44 Ergocalciferol (Vitamin D Cap) 50,000 interunit Fr@0900 PO 09/20/17 09:00 10/20/17 08:59 09/20/17 07:46 50,000 INTERUNIT Multi-Ingredient Ointment (Eucerin Unscented Cr) 1 appln BID EXT 09/19/17 21:00 10/19/17 20:59 Fluconazole (Diflucan Tab) 100 mg QAM PO 09/20/17 09:00 09/30/17 08:59 09/21/17 08:43 100 MG Glimepiride (Amaryl Tab) 2 mg QAM PO 09/20/17 09:00 10/20/17 08:59 09/21/17 08:42 2 MG Oxycodone HCl (Roxicodone Immediate Rel Tab) 5 mg Q6H PRN PO 09/19/17 15:45 10/03/17 15:44 09/21/17 15:23 5 MG Spironolactone (Aldactone Tab) 25 mg QD PO 09/19/17 15:45 10/19/17 15:44 Future Hold 09/19/17 20:17 25 MG Zolpidem Tartrate (Ambien Tab) 5 mg HS PO 09/19/17 21:00 10/19/17 20:59 Lactobacillus Acidophilus (Floranex Tab) 4 tab TIDM PO 09/19/17 18:00 10/19/17 17:59 09/21/17 16:35 4 TAB Hydromorphone HCl (Dilaudid Inj) 0.5 mg Q4H PRN IV 09/19/17 16:15 10/03/17 16:14 09/21/17 11:36 0.5 MG Imipenem/ Cilastatin Sodium (Consult) 1 ea UD PRN N/A 09/19/17 19:15 10/19/17 19:14 Daptomycin (Consult) 1 ea UD PRN N/A 09/19/17 20:30 10/19/17 20:29 Daptomycin 650 mg/ Syringe 13 ml @ 6.5 mls/min Q48H IV 09/20/17 12:00 09/30/17 11:59 09/20/17 10:57 6.5 MLS/MIN Bumetanide 2 mg/ Syringe 8 ml @ 4 mls/min BID@0900,1700 IV 09/20/17 09:00 10/20/17 08:59 09/21/17 16:36 4 MLS/MIN Imipenem/ Cilastatin Sodium 500 mg/Dextrose 110 ml @ 100 mls/hr Q12H IV 09/20/17 18:00 09/30/17 17:59 09/21/17 16:35 100 MLS/HR Albumin Human (Albumin 25%) 12.5 gm BID IV 09/21/17 10:00 09/24/17 09:59 09/21/17 11:18 12.5 GM Iron Sucrose 100 mg/Sodium Chloride 105 ml @ 420 mls/hr DAILY@1100 IV 09/21/17 11:00 09/23/17 11:14 09/21/17 11:21 420 MLS/HR Objective Vital Signs Date Time Temp Pulse Resp B/P (MAP) Pulse Ox O2 Delivery O2 Flow Rate FiO2 09/21/17 16:20 Nasal Cannula 4.0 09/21/17 16:16 37.3 99 22 122/69 (86) 92 Nasal Cannula 4.0 09/21/17 12:15 93 Nasal Cannula 4.0 09/21/17 08:15 Nasal Cannula 4.0 09/21/17 06:56 36.6 95 20 117/53 (74) 95 Nasal Cannula 4.0 09/21/17 04:00 Nasal Cannula 4.0 09/21/17 04:00 36.8 96 19 93/57 (69) 94 Nasal Cannula 4.0 09/21/17 00:00 Nasal Cannula 4.0 09/20/17 23:43 36.8 101 22 94/62 (73) 94 Nasal Cannula 4.0 09/20/17 20:08 36.2 98 17 108/69 (82) 92 Nasal Cannula 4.0 09/20/17 20:00 Nasal Cannula 4.0 Physical Exam General Appearance: WD/WN, no apparent distress Eyes: PERRL, EOMI ENT: normal ENT inspection, hearing grossly normal Neck: supple, + JVD Respiratory/Chest: chest non-tender, no accessory muscle use, + decreased breath sounds (bases) Cardiovascular: + systolic murmur Abdomen: non tender, soft, + hernia (umbilical, reducible), + pertinent finding (scaly rash, originating in skin folds) Extremities: + calf tenderness (related to numerous wounds), + pedal edema Neurologic/Psychiatric: operations liaison II-XII nml as tested, no motor/sensory deficits, alert, normal mood/affect, oriented x 3 Skin: + rash (lower abdomen, irritated skin), + pertinent finding (1. back - stage 3 sacral decub with severe foul odor and purulent drainage; the decub is circular but with irregular margins; the diameter is at least 3cm) Lymphatic: + pertinent finding (lymphedema of lower limbs bilaterally) Laboratory Results Last Resulted 09/21/17 06:16 Last Resulted 09/21/17 06:16 Assessment and Plan 57yo female with numerous medical problems including chronic hypoxic/ hypercarbic respiratory failure on home O2, uncontrolled T2DM, CKD stage 4, chronic LE wounds, and chronic right sided heart failure (cor pulmonale) presenting with ARF, acute/chronic cor pulmonale, and worsening LE wounds b/l but most severe on the right leg. Acute/chronic right sided heart failure and chronic diastolic CHF she reports a minimum of 30 pounds of weight gain. Weight today is 120.9kg, weight in July of about 108-110kg. She has significant ascites & LE edema. She reports noncompliance with both diet & fluid restriction. Continue Bumex; add albumin per nephro Hold metazolone. Hold aldactone. BMP in am. Strict I's and O's; fluid restrict to 1500cc/day. 2 gram salt restriction. Could also consider resuming aldactone if Creatinine and potassium will allow. Consider cardiology consult if needed. Acute renal failure - possibly due to cardio-renal syndrome. She could have an element of post-obstruction as well -- she reports her rodriguez was leaking recently Will d/c rodriguez, place a new rodriguez, and monitor UOP and serial creatinines. Send u/a and urine Cr and urine Na although these may not be reliable due to diuretic usage. Nephrology consult requested. Hold off on renal imaging for now. BMP in am. Stage 3 decubitus sacral ulcer and NUMEROUS wounds of the LEs - especially right achilles, right heel, and left ankle -- previous culture with MRSA and has been on daptomycin for 2+ months. Most recent culture from the right foot grew pseudomonas & klebsiella. She was placed on cefepime for the latter 2 pathogens. Since her infections appear to be progressing will d/c cefepime and broaden to imipenem. ID consult requested. Patient refuses MRI and ultrasound to r/o osteomyelitis, tenosynovitis, etc. We are concerned that she may end up with BKA. Orthopedic consult will likely be needed for surgical intervention but will defer I have requested that the wound care team and Dr. Rothman see the patient for management of all wounds. Aquacel Ag to the sacral wound with optifoam, and Aquacel with optifoam to all leg/foot wounds. zinc, vit C, and MVI to help promote wound healing have been DCd per patient preference Her chronic edema is making this all worse. T2DM - uncontrolled - due to noncompliance with diet. Per Dr. Giraldo: ON NUMEROUS OCCASIONS SHE HAS BEEN COUNSELED THAT AMARYL USE IS NOT RECOMMENDED IN LIGHT OF HER CKD. INSULIN HAS BEEN ADVISED BUT SHE REFUSES ALL INSULIN INJECTIONS. Will proceed forward with amaryl cautiously. BSGs ac/hs. Severe LE edema - likely combination of cor pulmonale and CKD/ARF. However, given her essentially bed-bound status, need to r/o DVT. Dopplers of both legs ordered but patient has refused to have the US performed. Chronic hypoxic/hypercarbic respiratory failure - 2nd to COPD, ROHAN, cannot exclude obesity-hypoventilation syndrome. Stable at this time, on 4L NC Hyponatremia - likely 2nd to ARF - repeat BMP in am. Hypomagnesemia - due to metazolone/bumex usage. Oral mag oxide replacement TODAY only; repeat level in am. Anemia - chronic - 2nd to CKD; H/H acceptable today. COPD - stable, without exacerbation. ? cellulitis of lower abdominal wall - antibiotics for wounds will suffice. chronic intertrigo - remains on diflucan daily. ROHAN - night-time BiPAP ordered for her but uncertain if she will comply; admits to not using it at the skilled nursing. patient requests level 1 full code status DVT proph - heparin 5000 BID. Dispo: tele Resident Physician Supervision Note: I was present with Dr. Gutierrez during the history and exam. I discussed the case with the resident and agree with the findings and plan as documented in the note. I also discussed the case with nephrology. PLAN 1) Continue Bumex and add albumin. 2) Discussed her refusal of MRI and US. 3) Discussed improved glycemic control with insulin; she declines. 5) Discontinue Vitamin C, Zinc, and MVI per patient's request. Documented By: Matthias Amezcua Resident Tracking Resident Involvement: Resident Care Provided Care Provided: Adult [facility]
[2017-09-21 20:02] VITALS: BP 101/63; PULSE 100; TEMP 36.8; O2SAT 92
[2017-09-21] MEDS: ZOLPIDEM TARTRATE 5 MG TAB PO SCH (21:00)
[2017-09-21 23:58] VITALS: BP 100/55; PULSE 105; TEMP 36.6; O2SAT 92
[2017-09-22] VITALS (9 sets, daily range): BP systolic 91–139; BP diastolic 59–82; PULSE 96–101; TEMP 36.6–36.9; O2SAT 90–99
[2017-09-22] MEDS: HYDROmorphone INJ 0.5 MG/0.5 ML SYR IV PRN ×4 (01:19→18:15)
[2017-09-22 03:37] LABS: CREATININE 4.72 mg/dl (0.60-1.20)
[2017-09-22] MEDS: IMIPENEM/CILASTATIN IV 500 MG in DEXTROSE 5% 100ML 100 ML IV SCH ×2 (06:00→18:50)
[2017-09-22 06:51] LABS: HEMOGLOBIN 9.6 g/dL (12.0-16.0); MEAN CELL VOLUME 81.4 fL (80-100); MEAN CORPUSCULAR HEMOGLOBIN 25.2 pg (25-34); PLATELET COUNT 162 K/uL (130-400); RED CELL DISTRIBUTION WIDTH SD 63.8 fL (36.4-46.3); WHITE BLOOD COUNT 7.25 K/uL (4.8-10.8)
[2017-09-22 07:09] LABS: CALCIUM 8.2 mg/dl (8.5-10.1); CREATININE 4.69 mg/dl (0.60-1.20); POTASSIUM 4.2 mmol/L (3.5-5.1)
[2017-09-22] MEDS: EUCERIN CR 120 GM JAR EXT SCH ×2 (08:46→20:00)
[2017-09-22] MEDS: HEPARIN SOD 5000 UNIT/0.5 ML CARP SQ SCH ×2 (08:47→20:45)
[2017-09-22] MEDS: ALBUMIN HUMAN 25% 12.5 GM/50 ML VIAL IV SCH ×2 (08:57→20:47)
[2017-09-22] MEDS: LACTOBACILLUS ACIDOPHILUS (FLORANEX) TAB PO SCH ×3 (08:58→16:59)
[2017-09-22] MEDS: BUMETANIDE IV 2 MG in SYRINGE 0 ML IV SCH ×2 (08:58→18:15)
[2017-09-22] MEDS: GLIMEPIRIDE 2 MG TAB PO SCH (08:58)
[2017-09-22] MEDS: FLUCONAZOLE 100 MG TAB PO SCH (08:59)
[2017-09-22] MEDS: IRON SUCROSE INJ 100 MG in SODIUM CHLORIDE 0.9% 100ML 100 ML IV SCH (09:21)
[2017-09-22] MEDS: DAPTOmycin IV 650 MG in SYRINGE 0 ML IV SCH (13:22)
--- NOTE | 2017-09-22 14:54 | Family Medicine Progress Note ---
Progress Note Date of Service Sep 22, 2017. Subjective Pt evaluation today including: conversation w/ patient, physical exam, chart review, lab review Pain: Patient continues to report pain in her lower extremities and sacral area PO Intake: tolerating PO diet well Voiding: rodriguez catheter in place Patient reports she is feeling better having gotten some fluid out. Constitutional: + weakness, + problem reported (recent weight gain) Respiratory: + shortness of breath, + dyspnea on exertion Cardiovascular: + orthopnea, + edema Abdomen: + constipation Musculoskeletal: + joint pain Neurologic: + weakness, + balance problems Psychiatric: + anxiety Skin: + new/changing skin lesions (rash on anterior of abdomen, open wound on coccyx, open wounds on legs and heels) All Other Systems: Reviewed and Negative Medications Current Inpatient Medications Medications (Trade) Dose Ordered Sig/Bruno Route Start Time Stop Time Status Last Admin Dose Admin Heparin Sodium (Porcine) (Heparin Sq 5000 Unit/0.5ml) 5,000 unit Q12 SQ 09/19/17 21:00 10/19/17 20:59 Acetaminophen (Tylenol Tab) 650 mg Q4H PRN PO 09/19/17 15:45 10/19/17 15:44 Al Hydrox/Mg Hydrox/Simethicone (Maalox Max Susp) 15 ml Q4H PRN PO 09/19/17 15:45 10/19/17 15:44 Magnesium Hydroxide (Milk Of Magnesia Susp) 30 ml Q12H PRN PO 09/19/17 15:45 10/19/17 15:44 Ondansetron HCl (Zofran Inj) 4 mg Q6H PRN IV 09/19/17 15:45 10/19/17 15:44 Nitroglycerin (Nitrostat Tab) 0.4 mg UD PRN SL 09/19/17 15:45 10/19/17 15:44 Ergocalciferol (Vitamin D Cap) 50,000 interunit Fr@0900 PO 09/20/17 09:00 10/20/17 08:59 09/20/17 07:46 50,000 INTERUNIT Multi-Ingredient Ointment (Eucerin Unscented Cr) 1 appln BID EXT 09/19/17 21:00 10/19/17 20:59 Fluconazole (Diflucan Tab) 100 mg QAM PO 09/20/17 09:00 09/30/17 08:59 09/22/17 08:59 100 MG Glimepiride (Amaryl Tab) 2 mg QAM PO 09/20/17 09:00 10/20/17 08:59 09/22/17 08:58 2 MG Oxycodone HCl (Roxicodone Immediate Rel Tab) 5 mg Q6H PRN PO 09/19/17 15:45 10/03/17 15:44 09/21/17 15:23 5 MG Spironolactone (Aldactone Tab) 25 mg QD PO 09/19/17 15:45 10/19/17 15:44 Future Hold 09/19/17 20:17 25 MG Zolpidem Tartrate (Ambien Tab) 5 mg HS PO 09/19/17 21:00 10/19/17 20:59 Lactobacillus Acidophilus (Floranex Tab) 4 tab TIDM PO 09/19/17 18:00 10/19/17 17:59 09/22/17 08:58 4 TAB Hydromorphone HCl (Dilaudid Inj) 0.5 mg Q4H PRN IV 09/19/17 16:15 10/03/17 16:14 09/22/17 09:09 0.5 MG Imipenem/ Cilastatin Sodium (Consult) 1 ea UD PRN N/A 09/19/17 19:15 10/19/17 19:14 Daptomycin (Consult) 1 ea UD PRN N/A 09/19/17 20:30 10/19/17 20:29 Daptomycin 650 mg/ Syringe 13 ml @ 6.5 mls/min Q48H IV 09/20/17 12:00 09/30/17 11:59 09/20/17 10:57 6.5 MLS/MIN Bumetanide 2 mg/ Syringe 8 ml @ 4 mls/min BID@0900,1700 IV 09/20/17 09:00 10/20/17 08:59 09/22/17 08:58 4 MLS/MIN Imipenem/ Cilastatin Sodium 500 mg/Dextrose 110 ml @ 100 mls/hr Q12H IV 09/20/17 18:00 09/30/17 17:59 09/22/17 06:00 100 MLS/HR Albumin Human (Albumin 25%) 12.5 gm BID IV 09/21/17 10:00 09/24/17 09:59 09/22/17 08:57 12.5 GM Iron Sucrose 100 mg/Sodium Chloride 105 ml @ 420 mls/hr DAILY@1100 IV 09/21/17 11:00 09/23/17 11:14 09/21/17 11:21 420 MLS/HR Objective Vital Signs Date Time Temp Pulse Resp B/P (MAP) Pulse Ox O2 Delivery O2 Flow Rate FiO2 09/22/17 07:35 36.6 98 20 110/70 (83) 95 09/22/17 06:24 36.8 99 94 126/62 (83) 99 Nasal Cannula 4.0 09/22/17 00:00 Nasal Cannula 4.0 09/21/17 23:58 36.6 105 18 100/55 (70) 92 Nasal Cannula 4.0 09/21/17 20:02 36.8 100 20 101/63 (76) 92 Nasal Cannula 4.0 09/21/17 20:00 Nasal Cannula 4.0 09/21/17 16:20 Nasal Cannula 4.0 09/21/17 16:16 37.3 99 22 122/69 (86) 92 Nasal Cannula 4.0 09/21/17 12:15 93 Nasal Cannula 4.0 Physical Exam General Appearance: WD/WN, no apparent distress, + obese Eyes: normal inspection, PERRL, EOMI ENT: normal ENT inspection, hearing grossly normal Neck: supple, no carotid bruits, trachea midline, + JVD Respiratory/Chest: chest non-tender, no respiratory distress, no accessory muscle use, + decreased breath sounds (bibasilar, bilateral) Cardiovascular: regular rate, rhythm, no murmur, + JVD Abdomen: normal bowel sounds, non tender, soft, no organomegaly, + distended, + hernia Extremities: + inflammation, + pedal edema, + swelling Neurologic/Psychiatric: skin care therapist II-XII nml as tested, no motor/sensory deficits, alert, normal mood/affect, oriented x 3 Skin: + rash (abdomen), + mottled (abdomen, sacrum, legs, heels) Lymphatic: + pertinent finding (lymphedema of LL, bilateral) Laboratory Results Last Resulted 09/22/17 02:44 Last Resulted 09/22/17 02:44 Assessment and Plan 57yo female with numerous medical problems including chronic hypoxic/ hypercarbic respiratory failure on home O2, uncontrolled T2DM, CKD stage 4, chronic LE wounds, and chronic right sided heart failure (cor pulmonale) presenting with ARF, acute/chronic cor pulmonale, and worsening LE wounds b/l but most severe on the right leg. Acute/chronic right sided heart failure and chronic diastolic CHF she reports a minimum of 30 pounds of weight gain. Weight today is 120.9kg, weight in July of about 108-110kg. She has significant ascites & LE edema. She reports noncompliance with both diet & fluid restriction. Continue Bumex; albumin started per nephro Hold metazolone. Hold aldactone until Cr and K will allow. BMP in am. Strict I's and O's; fluid restrict to 1500cc/day. 2 gram salt restriction. Down about 3L overall. Consider cardiology consult if needed. Acute renal failure - possibly due to cardio-renal syndrome. She could have an element of post-obstruction as well -- she reports her rodriguez was leaking recently New rodriguez placed. monitor UOP and serial creatinines. Send u/a and urine Cr and urine Na although these may not be reliable due to diuretic usage. Nephrology on board. Hold off on renal imaging for now. BMP in am. Stage 3 decubitus sacral ulcer and NUMEROUS wounds of the LEs - especially right achilles, right heel, and left ankle -- previous culture with MRSA and has been on daptomycin for 2+ months. Most recent culture from the right foot grew pseudomonas & klebsiella. She was placed on cefepime for the latter 2 pathogens. Since her infections appear to be progressing will d/c cefepime and broaden to imipenem. ID consult requested. Patient refuses MRI and ultrasound to r/o osteomyelitis, tenosynovitis, etc. We are concerned that she may end up with BKA. Orthopedic consult will likely be needed for surgical intervention but will defer I have requested that the wound care team and Dr. Rothman see the patient for management of all wounds. Aquacel Ag to the sacral wound with optifoam, and Aquacel with optifoam to all leg/foot wounds. zinc, vit C, and MVI to help promote wound healing have been DCd per patient preference Her chronic edema is making this all worse. T2DM - uncontrolled - due to noncompliance with diet. Per Dr. Giraldo: ON NUMEROUS OCCASIONS SHE HAS BEEN COUNSELED THAT AMARYL USE IS NOT RECOMMENDED IN LIGHT OF HER CKD. INSULIN HAS BEEN ADVISED BUT SHE REFUSES ALL INSULIN INJECTIONS. Will proceed forward with amaryl cautiously. BSGs ac/hs. Severe LE edema - likely combination of cor pulmonale and CKD/ARF. However, given her essentially bed-bound status, need to r/o DVT. Dopplers of both legs ordered but patient has refused to have the US performed. Chronic hypoxic/hypercarbic respiratory failure - 2nd to COPD, ROHAN, cannot exclude obesity-hypoventilation syndrome. Stable at this time, on 4L NC Hyponatremia - likely 2nd to ARF - repeat BMP in am. Hypomagnesemia - due to metazolone/bumex usage. Oral mag oxide replacement x 1 Level has stabilized at 1.6-1.7 Anemia - chronic - 2nd to CKD; H/H acceptable today. COPD - stable, without exacerbation. ? cellulitis of lower abdominal wall - antibiotics for wounds will suffice. chronic intertrigo - remains on diflucan daily. ROHAN - night-time BiPAP ordered for her but uncertain if she will comply; admits to not using it at the [facility]. patient requests level 1 full code status DVT proph - heparin 5000 BID. Dispo: transferred to med/surg; discharge plan uncertain at this time Resident Physician Supervision Note: I was present with the resident physician during the history and exam. I discussed the case with the resident and agree with the findings and plan as documented in the note. I also discussed the case with nephrology. PLAN 1) continue Bumex twice a day and albumin; nephrology input appreciated 2) fluid restriction and I/Os 3) wound care and infectious disease Documented By: Matthias Amezcua Resident Tracking Resident Involvement: Resident Care Provided Care Provided: Adult Hospital Medicine
[2017-09-22] MEDS: OXYCODONE HCL IR 5 MG TAB (IMMEDIATE RELEASE) PO PRN (20:40)
[2017-09-22] MEDS: ZOLPIDEM TARTRATE 5 MG TAB PO SCH (20:45)
[2017-09-23] MEDS: HYDROmorphone INJ 0.5 MG/0.5 ML SYR IV PRN ×2 (04:37→14:19)
[2017-09-23] MEDS: EUCERIN CR 120 GM JAR EXT SCH (07:19)
[2017-09-23] MEDS: IMIPENEM/CILASTATIN IV 500 MG in DEXTROSE 5% 100ML 100 ML IV SCH ×2 (07:32→17:39)
[2017-09-23 07:59] VITALS: BP 120/71; PULSE 88; TEMP 36.7; O2SAT 95
[2017-09-23] MEDS: GLIMEPIRIDE 2 MG TAB PO SCH (08:39)
[2017-09-23] MEDS: ALBUMIN HUMAN 25% 12.5 GM/50 ML VIAL IV SCH ×2 (08:39→19:46)
[2017-09-23] MEDS: BUMETANIDE IV 2 MG in SYRINGE 0 ML IV SCH ×2 (08:40→17:34)
[2017-09-23] MEDS: HEPARIN SOD 5000 UNIT/0.5 ML CARP SQ SCH ×2 (08:40→20:30)
[2017-09-23] MEDS: LACTOBACILLUS ACIDOPHILUS (FLORANEX) TAB PO SCH ×3 (08:40→17:34)
[2017-09-23] MEDS: FLUCONAZOLE 100 MG TAB PO SCH (08:40)
[2017-09-23 08:49] LABS: HEMATOCRIT 31.2 % (37-47); HEMOGLOBIN 9.6 g/dL (12.0-16.0); MEAN CELL VOLUME 81.3 fL (80-100); MEAN CORPUSCULAR HGB CONC 30.8 g/dl (32-36); MEAN PLATELET VOLUME 10.5 fL (7.4-10.4); PLATELET COUNT 182 K/uL (130-400); RED CELL DISTRIBUTION WIDTH CV 20.8 % (11.5-14.5); RED CELL DISTRIBUTION WIDTH SD 62.6 fL (36.4-46.3); WHITE BLOOD COUNT 6.55 K/uL (4.8-10.8)
[2017-09-23 08:58] LABS: INR 1.4 (0.9-1.1); PTT PATIENT 34.2 SECONDS (21.0-31.0)
[2017-09-23 09:17] LABS: CALCIUM 8.2 mg/dl (8.5-10.1); CREATININE 4.43 mg/dl (0.60-1.20)
--- NOTE | 2017-09-23 10:01 | Nephrology Progress Note ---
Nephrology Progress Note Date of Service: Sep 23, 2017. Subjective 57 yo female with lymphedema/volume overload/weeping ulcers/jonny. on diuretics with albumin, creatinine was trending up but appears to have peaked and starting to improve. pt is comfortable and happy with the progress in her swelling. Objective Date Time Temp Pulse Resp B/P (MAP) Pulse Ox O2 Delivery O2 Flow Rate FiO2 09/23/17 07:59 36.7 88 18 120/71 (87) 95 Nasal Cannula 3.0 09/22/17 23:50 36.9 100 20 91/59 (70) 90 4.0 09/22/17 23:25 92 Nasal Cannula 4.0 Humidified Oxygen 09/22/17 16:00 Nasal Cannula 4.0 Humidified Oxygen 09/22/17 15:45 36.9 100 18 139/82 (101) 92 Nasal Cannula 4.0 Humidified Oxygen 09/22/17 15:04 36.7 101 22 94 4.0 09/22/17 12:59 36.7 101 22 109/62 (78) 94 09/22/17 11:39 96 94 09/22/17 11:29 Nasal Cannula 4.0 Physical Exam: General-aaox3 Eyes-no scleral icterus ENT-mmm Neck-supple Lungs-cta Heart-regualr Abdomen-bs+/soft/nontender Extremities-edema in the lower extremities, wrapped and weeping Neuro-nonfocal Current Inpatient Medications Medications (Trade) Dose Ordered Sig/Bruno Route Start Time Stop Time Status Last Admin Dose Admin Heparin Sodium (Porcine) (Heparin Sq 5000 Unit/0.5ml) 5,000 unit Q12 SQ 09/19/17 21:00 10/19/17 20:59 Acetaminophen (Tylenol Tab) 650 mg Q4H PRN PO 09/19/17 15:45 10/19/17 15:44 Al Hydrox/Mg Hydrox/Simethicone (Maalox Max Susp) 15 ml Q4H PRN PO 09/19/17 15:45 10/19/17 15:44 Magnesium Hydroxide (Milk Of Magnesia Susp) 30 ml Q12H PRN PO 09/19/17 15:45 10/19/17 15:44 Ondansetron HCl (Zofran Inj) 4 mg Q6H PRN IV 09/19/17 15:45 10/19/17 15:44 Nitroglycerin (Nitrostat Tab) 0.4 mg UD PRN SL 09/19/17 15:45 10/19/17 15:44 Ergocalciferol (Vitamin D Cap) 50,000 interunit Fr@0900 PO 09/20/17 09:00 10/20/17 08:59 09/20/17 07:46 50,000 INTERUNIT Multi-Ingredient Ointment (Eucerin Unscented Cr) 1 appln BID EXT 09/19/17 21:00 10/19/17 20:59 Fluconazole (Diflucan Tab) 100 mg QAM PO 09/20/17 09:00 09/30/17 08:59 09/23/17 08:40 100 MG Glimepiride (Amaryl Tab) 2 mg QAM PO 09/20/17 09:00 10/20/17 08:59 09/23/17 08:39 2 MG Zolpidem Tartrate (Ambien Tab) 5 mg HS PO 09/19/17 21:00 10/19/17 20:59 Lactobacillus Acidophilus (Floranex Tab) 4 tab TIDM PO 09/19/17 18:00 10/19/17 17:59 09/23/17 08:40 4 TAB Hydromorphone HCl (Dilaudid Inj) 0.5 mg Q4H PRN IV 09/19/17 16:15 10/03/17 16:14 09/23/17 04:37 0.5 MG Imipenem/ Cilastatin Sodium (Consult) 1 ea UD PRN N/A 09/19/17 19:15 10/19/17 19:14 Daptomycin (Consult) 1 ea UD PRN N/A 09/19/17 20:30 10/19/17 20:29 Daptomycin 650 mg/ Syringe 13 ml @ 6.5 mls/min Q48H IV 09/20/17 12:00 09/30/17 11:59 09/22/17 13:22 6.5 MLS/MIN Bumetanide 2 mg/ Syringe 8 ml @ 4 mls/min BID@0900,1700 IV 09/20/17 09:00 10/20/17 08:59 09/23/17 08:40 4 MLS/MIN Imipenem/ Cilastatin Sodium 500 mg/Dextrose 110 ml @ 100 mls/hr Q12H IV 09/20/17 18:00 09/30/17 17:59 09/23/17 07:32 100 MLS/HR Albumin Human (Albumin 25%) 12.5 gm BID IV 09/21/17 10:00 09/24/17 09:59 09/23/17 08:39 12.5 GM Iron Sucrose 100 mg/Sodium Chloride 105 ml @ 420 mls/hr DAILY@1100 IV 09/21/17 11:00 09/23/17 11:14 09/22/17 09:21 420 MLS/HR Oxycodone HCl (Roxicodone Immediate Rel Tab) 5 mg Q4H PRN PO 09/22/17 12:00 10/03/17 15:44 09/22/17 20:40 5 MG Heparin Sodium (Porcine) (Heparin 10 Unit/ ml 5 ml Flush) 5 ml PRN PRN FLUSH 09/22/17 18:45 10/22/17 18:44 09/23/17 04:37 5 ML Last 24 Hours Test 09/22/17 11:28 09/22/17 16:52 09/22/17 20:03 09/23/17 07:35 Bedside Glucose 167 mg/dl 131 mg/dl 187 mg/dl 120 mg/dl Test 09/23/17 08:27 White Blood Count 6.55 K/uL Red Blood Count 3.84 M/uL Hemoglobin 9.6 g/dL Hematocrit 31.2 % Mean Corpuscular Volume 81.3 fL Mean Corpuscular Hemoglobin 25.0 pg Mean Corpuscular Hemoglobin Concent 30.8 g/dl RDW Standard Deviation 62.6 fL RDW Coefficient of Variation 20.8 % Platelet Count 182 K/uL Mean Platelet Volume 10.5 fL Prothrombin Time 14.3 SECONDS Prothromb Time International Ratio 1.4 Activated Partial Thromboplast Time 34.2 SECONDS Partial Thromboplastin Ratio 1.3 Sodium Level 135 mmol/L Potassium Level 4.0 mmol/L Chloride Level 94 mmol/L Carbon Dioxide Level 29 mmol/L Anion Gap 12.0 mmol/L Blood Urea Nitrogen 103 mg/dl Creatinine 4.43 mg/dl Est Creatinine Clear Calc Drug Dose 18.1 ml/min Estimated GFR () 11.8 Estimated GFR (Non- 10.2 BUN/Creatinine Ratio 23.3 Random Glucose 118 mg/dl Calcium Level 8.2 mg/dl Date/Time Source Procedure Growth Status 09/22/17 18:57 Urine,Catheterized Urine Culture Pending Received Assessment & Plan [id number] status is improving-continue current diuretics. on albumin with the diuretics trying to mobilize any third spacing of fluids. creatinine was 4.72 and now 4.4. iron deficiency-iron sat is low and added venofer 100mg iv daily and has one more dose today for a total of 3 doses. continue current care. no changes to medications at this time.
[2017-09-23] MEDS: IRON SUCROSE INJ 100 MG in SODIUM CHLORIDE 0.9% 100ML 100 ML IV SCH (12:05)
[2017-09-23 15:58] VITALS: BP 112/71; PULSE 100; TEMP 37.2; O2SAT 92
[2017-09-23 16:00] VITALS: O2SAT 92
[2017-09-23] MEDS: OXYCODONE HCL IR 5 MG TAB (IMMEDIATE RELEASE) PO PRN (20:26)
--- NOTE | 2017-09-23 20:30 | Infectious Disease Progress Nt ---
Progress Note Date of Service Sep 23, 2017. 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 Renal function slightly better. No fever. All Other Systems: Reviewed and Negative Medications Current Inpatient Medications Medications (Trade) Dose Ordered Sig/Bruno Route Start Time Stop Time Status Last Admin Dose Admin Heparin Sodium (Porcine) (Heparin Sq 5000 Unit/0.5ml) 5,000 unit Q12 SQ 09/19/17 21:00 10/19/17 20:59 Acetaminophen (Tylenol Tab) 650 mg Q4H PRN PO 09/19/17 15:45 10/19/17 15:44 Al Hydrox/Mg Hydrox/Simethicone (Maalox Max Susp) 15 ml Q4H PRN PO 09/19/17 15:45 10/19/17 15:44 Magnesium Hydroxide (Milk Of Magnesia Susp) 30 ml Q12H PRN PO 09/19/17 15:45 10/19/17 15:44 Ondansetron HCl (Zofran Inj) 4 mg Q6H PRN IV 09/19/17 15:45 10/19/17 15:44 Nitroglycerin (Nitrostat Tab) 0.4 mg UD PRN SL 09/19/17 15:45 10/19/17 15:44 Ergocalciferol (Vitamin D Cap) 50,000 interunit Fr@0900 PO 09/20/17 09:00 10/20/17 08:59 09/20/17 07:46 50,000 INTERUNIT Multi-Ingredient Ointment (Eucerin Unscented Cr) 1 appln BID EXT 09/19/17 21:00 10/19/17 20:59 Fluconazole (Diflucan Tab) 100 mg QAM PO 09/20/17 09:00 09/30/17 08:59 09/23/17 08:40 100 MG Glimepiride (Amaryl Tab) 2 mg QAM PO 09/20/17 09:00 10/20/17 08:59 09/23/17 08:39 2 MG Zolpidem Tartrate (Ambien Tab) 5 mg HS PO 09/19/17 21:00 10/19/17 20:59 Lactobacillus Acidophilus (Floranex Tab) 4 tab TIDM PO 09/19/17 18:00 10/19/17 17:59 09/23/17 08:40 4 TAB Hydromorphone HCl (Dilaudid Inj) 0.5 mg Q4H PRN IV 09/19/17 16:15 10/03/17 16:14 09/23/17 14:19 0.5 MG Imipenem/ Cilastatin Sodium (Consult) 1 ea UD PRN N/A 09/19/17 19:15 10/19/17 19:14 Daptomycin (Consult) 1 ea UD PRN N/A 09/19/17 20:30 10/19/17 20:29 Daptomycin 650 mg/ Syringe 13 ml @ 6.5 mls/min Q48H IV 09/20/17 12:00 09/30/17 11:59 09/22/17 13:22 6.5 MLS/MIN Bumetanide 2 mg/ Syringe 8 ml @ 4 mls/min BID@0900,1700 IV 09/20/17 09:00 10/20/17 08:59 09/23/17 17:34 4 MLS/MIN Imipenem/ Cilastatin Sodium 500 mg/Dextrose 110 ml @ 100 mls/hr Q12H IV 09/20/17 18:00 09/30/17 17:59 09/23/17 17:39 100 MLS/HR Albumin Human (Albumin 25%) 12.5 gm BID IV 09/21/17 10:00 09/24/17 09:59 09/23/17 19:46 12.5 GM Oxycodone HCl (Roxicodone Immediate Rel Tab) 5 mg Q4H PRN PO 09/22/17 12:00 10/03/17 15:44 09/22/17 20:40 5 MG Heparin Sodium (Porcine) (Heparin 10 Unit/ ml 5 ml Flush) 5 ml PRN PRN FLUSH 09/22/17 18:45 10/22/17 18:44 09/23/17 04:37 5 ML Objective Vital Signs Date Time Temp Pulse Resp B/P (MAP) Pulse Ox O2 Delivery O2 Flow Rate FiO2 09/23/17 16:00 92 Room Air 09/23/17 15:58 37.2 100 18 112/71 (85) 92 Nasal Cannula 3.0 09/23/17 08:00 Nasal Cannula 3.0 09/23/17 07:59 36.7 88 18 120/71 (87) 95 Nasal Cannula 3.0 09/22/17 23:50 36.9 100 20 91/59 (70) 90 4.0 09/22/17 23:25 92 Nasal Cannula 4.0 Humidified Oxygen Physical Exam General Appearance: WD/WN, no apparent distress, + obese Eyes: normal inspection, EOMI, sclerae normal ENT: normal ENT inspection, hearing grossly normal, pharynx normal Neck: supple, no adenopathy, thyroid normal, trachea midline Respiratory/Chest: chest non-tender, lungs clear, normal breath sounds, no respiratory distress Cardiovascular: regular rate, rhythm, no gallop, + systolic murmur Abdomen: normal bowel sounds, non tender, soft, no organomegaly, + distended Extremities: + calf tenderness, + inflammation, + swelling Neurologic/Psychiatric: alert, oriented x 3 Skin: normal color, no rash, + pertinent finding (Multiple lower extremity wounds) Lymphatic: no adenopathy Laboratory Results Last 24 Hours Test 09/23/17 07:35 09/23/17 08:27 09/23/17 11:26 Bedside Glucose 120 mg/dl 194 mg/dl White Blood Count 6.55 K/uL Red Blood Count 3.84 M/uL Hemoglobin 9.6 g/dL Hematocrit 31.2 % Mean Corpuscular Volume 81.3 fL Mean Corpuscular Hemoglobin 25.0 pg Mean Corpuscular Hemoglobin Concent 30.8 g/dl RDW Standard Deviation 62.6 fL RDW Coefficient of Variation 20.8 % Platelet Count 182 K/uL Mean Platelet Volume 10.5 fL Prothrombin Time 14.3 SECONDS Prothromb Time International Ratio 1.4 Activated Partial Thromboplast Time 34.2 SECONDS Partial Thromboplastin Ratio 1.3 Sodium Level 135 mmol/L Potassium Level 4.0 mmol/L Chloride Level 94 mmol/L Carbon Dioxide Level 29 mmol/L Anion Gap 12.0 mmol/L Blood Urea Nitrogen 103 mg/dl Creatinine 4.43 mg/dl Est Creatinine Clear Calc Drug Dose 18.1 ml/min Estimated GFR () 11.8 Estimated GFR (Non- 10.2 BUN/Creatinine Ratio 23.3 Random Glucose 118 mg/dl Calcium Level 8.2 mg/dl Assessment and Plan 57 yo poorly controlled diabetic female with heart failure with worsening edema/ fluid retention with worsening infection of leg ulcers and sacral decubitus. Foul odor suggest polymicrobic infection/anaerobic component. Patient to be treated with imipenem and daptomycin. Will follow.
--- NOTE | 2017-09-23 20:48 | Family Medicine Progress Note ---
Progress Note Date of Service Sep 23, 2017. Subjective Constitutional: No fever, No chills Respiratory: + cough, + sputum, + shortness of breath Cardiovascular: + edema, No chest pain, No palpitations Abdomen: No pain, No nausea, No vomiting, No diarrhea Female : No dysuria Endo: + fatigue Skin: + rash, + new/changing skin lesions Medications Current Inpatient Medications Medications (Trade) Dose Ordered Sig/Bruno Route Start Time Stop Time Status Last Admin Dose Admin Heparin Sodium (Porcine) (Heparin Sq 5000 Unit/0.5ml) 5,000 unit Q12 SQ 09/19/17 21:00 10/19/17 20:59 Acetaminophen (Tylenol Tab) 650 mg Q4H PRN PO 09/19/17 15:45 10/19/17 15:44 Al Hydrox/Mg Hydrox/Simethicone (Maalox Max Susp) 15 ml Q4H PRN PO 09/19/17 15:45 10/19/17 15:44 Magnesium Hydroxide (Milk Of Magnesia Susp) 30 ml Q12H PRN PO 09/19/17 15:45 10/19/17 15:44 Ondansetron HCl (Zofran Inj) 4 mg Q6H PRN IV 09/19/17 15:45 10/19/17 15:44 Nitroglycerin (Nitrostat Tab) 0.4 mg UD PRN SL 09/19/17 15:45 10/19/17 15:44 Ergocalciferol (Vitamin D Cap) 50,000 interunit Fr@0900 PO 09/20/17 09:00 10/20/17 08:59 09/20/17 07:46 50,000 INTERUNIT Multi-Ingredient Ointment (Eucerin Unscented Cr) 1 appln BID EXT 09/19/17 21:00 10/19/17 20:59 Fluconazole (Diflucan Tab) 100 mg QAM PO 09/20/17 09:00 09/30/17 08:59 09/23/17 08:40 100 MG Glimepiride (Amaryl Tab) 2 mg QAM PO 09/20/17 09:00 10/20/17 08:59 09/23/17 08:39 2 MG Zolpidem Tartrate (Ambien Tab) 5 mg HS PO 09/19/17 21:00 10/19/17 20:59 Lactobacillus Acidophilus (Floranex Tab) 4 tab TIDM PO 09/19/17 18:00 10/19/17 17:59 09/23/17 08:40 4 TAB Hydromorphone HCl (Dilaudid Inj) 0.5 mg Q4H PRN IV 09/19/17 16:15 10/03/17 16:14 09/23/17 14:19 0.5 MG Imipenem/ Cilastatin Sodium (Consult) 1 ea UD PRN N/A 09/19/17 19:15 10/19/17 19:14 Daptomycin (Consult) 1 ea UD PRN N/A 09/19/17 20:30 10/19/17 20:29 Daptomycin 650 mg/ Syringe 13 ml @ 6.5 mls/min Q48H IV 09/20/17 12:00 09/30/17 11:59 09/22/17 13:22 6.5 MLS/MIN Bumetanide 2 mg/ Syringe 8 ml @ 4 mls/min BID@0900,1700 IV 09/20/17 09:00 10/20/17 08:59 09/23/17 17:34 4 MLS/MIN Imipenem/ Cilastatin Sodium 500 mg/Dextrose 110 ml @ 100 mls/hr Q12H IV 09/20/17 18:00 09/30/17 17:59 09/23/17 17:39 100 MLS/HR Albumin Human (Albumin 25%) 12.5 gm BID IV 09/21/17 10:00 09/24/17 09:59 09/23/17 19:46 12.5 GM Oxycodone HCl (Roxicodone Immediate Rel Tab) 5 mg Q4H PRN PO 09/22/17 12:00 10/03/17 15:44 09/22/17 20:40 5 MG Heparin Sodium (Porcine) (Heparin 10 Unit/ ml 5 ml Flush) 5 ml PRN PRN FLUSH 09/22/17 18:45 10/22/17 18:44 09/23/17 04:37 5 ML Objective Vital Signs Date Time Temp Pulse Resp B/P (MAP) Pulse Ox O2 Delivery O2 Flow Rate FiO2 09/23/17 16:00 92 Room Air 09/23/17 15:58 37.2 100 18 112/71 (85) 92 Nasal Cannula 3.0 09/23/17 08:00 Nasal Cannula 3.0 09/23/17 07:59 36.7 88 18 120/71 (87) 95 Nasal Cannula 3.0 09/22/17 23:50 36.9 100 20 91/59 (70) 90 4.0 09/22/17 23:25 92 Nasal Cannula 4.0 Humidified Oxygen Physical Exam General Appearance: + mild distress, + obese Neck: supple, no adenopathy Respiratory/Chest: chest non-tender, lungs clear, + decreased breath sounds Cardiovascular: regular rate, rhythm, + systolic murmur Abdomen: normal bowel sounds, non tender, soft, + distended Extremities: + calf tenderness Neurologic/Psychiatric: alert, normal mood/affect, oriented x 3 Skin: + rash (erythema of abdominal skin folds), + pertinent finding (clean, intact dressing on bilateral lower ext. ) Laboratory Results 09/23/17 08:27 09/23/17 08:27 Test 09/23/17 08:27 09/23/17 11:26 Red Blood Count 3.84 M/uL (4.2-5.4) Mean Corpuscular Volume 81.3 fL (80-100) Mean Corpuscular Hemoglobin 25.0 pg (25-34) Mean Corpuscular Hemoglobin Concent 30.8 g/dl (32-36) RDW Standard Deviation 62.6 fL (36.4-46.3) RDW Coefficient of Variation 20.8 % (11.5-14.5) Mean Platelet Volume 10.5 fL (7.4-10.4) Prothrombin Time 14.3 SECONDS (9.0-12.0) Prothromb Time International Ratio 1.4 (0.9-1.1) Activated Partial Thromboplast Time 34.2 SECONDS (21.0-31.0) Partial Thromboplastin Ratio 1.3 Anion Gap 12.0 mmol/L (3-11) Est Creatinine Clear Calc Drug Dose 18.1 ml/min Estimated GFR () 11.8 Estimated GFR (Non- 10.2 BUN/Creatinine Ratio 23.3 (10-20) Calcium Level 8.2 mg/dl (8.5-10.1) Bedside Glucose 194 mg/dl (70-90) Assessment and Plan 57yo female with numerous medical problems including chronic hypoxic/ hypercarbic respiratory failure on home O2, uncontrolled T2DM, CKD stage 4, chronic LE wounds, and chronic right sided heart failure (cor pulmonale) presenting with ARF, acute/chronic cor pulmonale, and worsening LE wounds b/l but most severe on the right leg. Stage 3 decubitus sacral ulcer and numerous wounds of the LEs -Right achilles, right heel, and left ankle -- previous culture with MRSA and has been on daptomycin for 2+ months. -Recent culture from the right foot grew pseudomonas & klebsiella. Repeat cultures today. -Continue imipenem. ID consult requested; will discuss with them tomorrow. -Patient refuses MRI and ultrasound to r/o osteomyelitis, tenosynovitis, etc. -Considering ortho consult -Being seen by wound care; Aquacel Ag to the sacral wound with optifoam, and Aquacel with optifoam to all leg/foot wounds. -zinc, vit C, and MVI to help promote wound healing have been DCd per patient preference Severe LE edema -likely combination of cor pulmonale and CKD/ARF. -Patient refuses Dopplers of legs to rule out DVT Acute/chronic right sided heart failure and chronic diastolic CHF -Weight today is 120.9kg, weight in July of about 108-110kg. -She has significant ascites & LE edema. She reports noncompliance with both diet & fluid restriction. -Continue Bumex; albumin started per nephro, pt -6L out -Hold metazolone. -Hold aldactone until Cr and K will allow. -BMP in am. -Strict I's and O's; fluid restrict to 1500cc/day. 2 gram salt restriction. Chronic hypoxic/hypercarbic respiratory failure - 2nd to COPD, ROHAN, cannot exclude obesity-hypoventilation syndrome. -Stable at this time, on 4L NC Acute renal failure - possibly due to cardio-renal syndrome. She could have an element of post-obstruction as well -- she reports her rodriguez was leaking recently -New rodriguez placed. -monitor i/o's and BMP -Nephrology consulted. T2DM -uncontrolled - due to noncompliance with diet. -Per Dr. Giraldo: pt refuses insulin treatment and educated that Amaryl is not an ideal due to CKD. -Will monitor BMP on Amaryl Hyponatremia - likely 2nd to ARF - repeat BMP in am. Hypomagnesemia - due to metazolone/bumex usage. -Oral mag oxide replacement x 1 -Level has stabilized at 1.6-1.7 Anemia - chronic - 2nd to CKD; H/H acceptable today. COPD - stable, without exacerbation. ? cellulitis of lower abdominal wall -Continue abx chronic intertrigo - -Continue Diflucan daily. ROHAN -BIPAP patient requests level 1 full code status DVT proph - Patient refusing heparin, education has been provided to patient regarding DVT prophylaxis Reviewed: Pt Seen/Exam by Me History denies new concerns Constitutional: denies: fever Respiratory: negative: short of breath Cardiovascular: denies chest pain Musculoskeletal: positive: other (chronic leg pain) General Appearance: no apparent distress Respiratory: lungs clear, no respiratory distress Cardiovascular: regular rate, rhythm Neurologic/Psychiatric: alert, oriented x 3 Skin Characteristics: other (multiple dressed wounds on both legs. ) Assessment/Plan Resident Physician Supervision Note: I independently interviewed and examined the patient and verified the danielson history and physical, reviewed labs and image studies, discussed the case with the resident Dr. Fallon and agree with the findings and care plan.
[2017-09-23] MEDS: ZOLPIDEM TARTRATE 5 MG TAB PO SCH (21:31)
[2017-09-23 23:47] VITALS: BP 107/66; PULSE 109; TEMP 37.2; O2SAT 90
[2017-09-24] MEDS: HYDROmorphone INJ 0.5 MG/0.5 ML SYR IV PRN ×2 (00:14→17:30)
[2017-09-24 05:58] LABS: HEMATOCRIT 29.6 % (37-47); HEMOGLOBIN 9.1 g/dL (12.0-16.0); MEAN CELL VOLUME 81.5 fL (80-100); MEAN CORPUSCULAR HEMOGLOBIN 25.1 pg (25-34); MEAN CORPUSCULAR HGB CONC 30.7 g/dl (32-36); MEAN PLATELET VOLUME 9.9 fL (7.4-10.4); PLATELET COUNT 167 K/uL (130-400); RED CELL DISTRIBUTION WIDTH CV 20.4 % (11.5-14.5); RED CELL DISTRIBUTION WIDTH SD 61.4 fL (36.4-46.3); WHITE BLOOD COUNT 7.09 K/uL (4.8-10.8)
[2017-09-24] MEDS: IMIPENEM/CILASTATIN IV 500 MG in DEXTROSE 5% 100ML 100 ML IV SCH ×2 (06:34→17:30)
[2017-09-24 06:38] LABS: CALCIUM 7.5 mg/dl (8.5-10.1); CREATININE 4.26 mg/dl (0.60-1.20)
[2017-09-24] MEDS: LACTOBACILLUS ACIDOPHILUS (FLORANEX) TAB PO SCH ×3 (08:00→17:00)
[2017-09-24] MEDS: EUCERIN CR 120 GM JAR EXT SCH ×2 (08:00→19:56)
[2017-09-24] MEDS: ALBUMIN HUMAN 25% 12.5 GM/50 ML VIAL IV SCH ×2 (08:09→20:00)
[2017-09-24] MEDS: HEPARIN SOD 5000 UNIT/0.5 ML CARP SQ SCH ×2 (08:09→20:15)
[2017-09-24] MEDS: FLUCONAZOLE 100 MG TAB PO SCH (08:10)
[2017-09-24] MEDS: GLIMEPIRIDE 2 MG TAB PO SCH (08:10)
[2017-09-24 08:17] VITALS: BP 101/65; PULSE 105; TEMP 36.7; O2SAT 91
[2017-09-24] MEDS: BUMETANIDE IV 2 MG in SYRINGE 0 ML IV SCH ×2 (09:56→17:23)
[2017-09-24] MEDS ORDERED: NURSING DECISION MEDICATION ORDER SCH (10:15)
[2017-09-24] MEDS ORDERED: MICONAZOLE NITRATE POWDER 43 GM EXT PRN (10:45)
--- NOTE | 2017-09-24 10:53 | Nephrology Progress Note ---
Nephrology Progress Note Date of Service: Sep 24, 2017. Subjective 57 yo female with lymphedema/volume overload/weeping ulcers/jonny. pt continues to diurese well. on diuretics and albumin. pt embaressed yesterday when she accidentally had an episode of stool incontinence. otherwise doing well. Objective Date Time Temp Pulse Resp B/P (MAP) Pulse Ox O2 Delivery O2 Flow Rate FiO2 09/24/17 08:17 36.7 105 18 101/65 (77) 91 Room Air 09/24/17 01:15 Nasal Cannula 4.0 09/23/17 23:47 37.2 109 17 107/66 (80) 90 Nasal Cannula 4.0 09/23/17 16:00 92 Room Air 09/23/17 15:58 37.2 100 18 112/71 (85) 92 Nasal Cannula 3.0 Physical Exam: General-aaox3 Eyes-no scleral icterus ENT-mmm Neck-supple Lungs-clear Heart-tachy Abdomen-bs+/soft/nontender Extremities-edema improving Neuro-nonfocal Current Inpatient Medications Medications (Trade) Dose Ordered Sig/Bruno Route Start Time Stop Time Status Last Admin Dose Admin Heparin Sodium (Porcine) (Heparin Sq 5000 Unit/0.5ml) 5,000 unit Q12 SQ 09/19/17 21:00 10/19/17 20:59 Acetaminophen (Tylenol Tab) 650 mg Q4H PRN PO 09/19/17 15:45 10/19/17 15:44 Al Hydrox/Mg Hydrox/Simethicone (Maalox Max Susp) 15 ml Q4H PRN PO 09/19/17 15:45 10/19/17 15:44 Magnesium Hydroxide (Milk Of Magnesia Susp) 30 ml Q12H PRN PO 09/19/17 15:45 10/19/17 15:44 Ondansetron HCl (Zofran Inj) 4 mg Q6H PRN IV 09/19/17 15:45 10/19/17 15:44 Nitroglycerin (Nitrostat Tab) 0.4 mg UD PRN SL 09/19/17 15:45 10/19/17 15:44 Ergocalciferol (Vitamin D Cap) 50,000 interunit Fr@0900 PO 09/20/17 09:00 10/20/17 08:59 09/20/17 07:46 50,000 INTERUNIT Multi-Ingredient Ointment (Eucerin Unscented Cr) 1 appln BID EXT 09/19/17 21:00 10/19/17 20:59 Fluconazole (Diflucan Tab) 100 mg QAM PO 09/20/17 09:00 09/30/17 08:59 09/24/17 08:10 100 MG Glimepiride (Amaryl Tab) 2 mg QAM PO 09/20/17 09:00 10/20/17 08:59 09/24/17 08:10 2 MG Zolpidem Tartrate (Ambien Tab) 5 mg HS PO 09/19/17 21:00 10/19/17 20:59 Lactobacillus Acidophilus (Floranex Tab) 4 tab TIDM PO 09/19/17 18:00 10/19/17 17:59 09/23/17 08:40 4 TAB Hydromorphone HCl (Dilaudid Inj) 0.5 mg Q4H PRN IV 09/19/17 16:15 10/03/17 16:14 09/24/17 00:14 0.5 MG Imipenem/ Cilastatin Sodium (Consult) 1 ea UD PRN N/A 09/19/17 19:15 10/19/17 19:14 Daptomycin (Consult) 1 ea UD PRN N/A 09/19/17 20:30 10/19/17 20:29 Daptomycin 650 mg/ Syringe 13 ml @ 6.5 mls/min Q48H IV 09/20/17 12:00 09/30/17 11:59 09/22/17 13:22 6.5 MLS/MIN Bumetanide 2 mg/ Syringe 8 ml @ 4 mls/min BID@0900,1700 IV 09/20/17 09:00 10/20/17 08:59 09/24/17 09:56 4 MLS/MIN Imipenem/ Cilastatin Sodium 500 mg/Dextrose 110 ml @ 100 mls/hr Q12H IV 09/20/17 18:00 09/30/17 17:59 09/24/17 06:34 100 MLS/HR Oxycodone HCl (Roxicodone Immediate Rel Tab) 5 mg Q4H PRN PO 09/22/17 12:00 10/03/17 15:44 09/23/17 20:26 5 MG Heparin Sodium (Porcine) (Heparin 10 Unit/ ml 5 ml Flush) 5 ml PRN PRN FLUSH 09/22/17 18:45 10/22/17 18:44 09/24/17 09:57 5 ML Miconazole Nitrate (Desenex Powder) 1 appln PRN PRN EXT 09/24/17 10:45 10/24/17 10:44 Last 24 Hours Test 09/23/17 11:26 09/23/17 20:07 09/24/17 05:49 09/24/17 07:59 Bedside Glucose 194 mg/dl 151 mg/dl 140 mg/dl White Blood Count 7.09 K/uL Red Blood Count 3.63 M/uL Hemoglobin 9.1 g/dL Hematocrit 29.6 % Mean Corpuscular Volume 81.5 fL Mean Corpuscular Hemoglobin 25.1 pg Mean Corpuscular Hemoglobin Concent 30.7 g/dl RDW Standard Deviation 61.4 fL RDW Coefficient of Variation 20.4 % Platelet Count 167 K/uL Mean Platelet Volume 9.9 fL Sodium Level 135 mmol/L Potassium Level 4.0 mmol/L Chloride Level 95 mmol/L Carbon Dioxide Level 31 mmol/L Anion Gap 9.0 mmol/L Blood Urea Nitrogen 107 mg/dl Creatinine 4.26 mg/dl Est Creatinine Clear Calc Drug Dose 18.7 ml/min Estimated GFR () 12.4 Estimated GFR (Non- 10.7 BUN/Creatinine Ratio 25.0 Random Glucose 124 mg/dl Calcium Level 7.5 mg/dl Assessment & Plan [id number] status is improving-continue current diuretics and albumin. urinating about 3 liters a day. slowly diuresing. ideally would add metolazone or increase the current diuretic dose however cautious and prudent given the already elevated creatinine.
[2017-09-24] MEDS: DAPTOmycin IV 650 MG in SYRINGE 0 ML IV SCH (12:28)
--- NOTE | 2017-09-24 12:52 | Family Medicine Progress Note ---
Progress Note Date of Service Sep 24, 2017. Subjective Patient is denies any acute issues at this time. Patient is not ambulatory. Constitutional: + fatigue, No fever, No chills, No sweats Respiratory: + cough, + sputum, + wheezing, + shortness of breath, No dyspnea on exertion Cardiovascular: No chest pain, No edema, No palpitations Abdomen: No pain, No nausea, No vomiting, No diarrhea Musculoskeletal: + swelling, + problem reported (bilateral leg pain 2/2 to wounds ) Medications Current Inpatient Medications Medications (Trade) Dose Ordered Sig/Bruno Route Start Time Stop Time Status Last Admin Dose Admin Heparin Sodium (Porcine) (Heparin Sq 5000 Unit/0.5ml) 5,000 unit Q12 SQ 09/19/17 21:00 10/19/17 20:59 Acetaminophen (Tylenol Tab) 650 mg Q4H PRN PO 09/19/17 15:45 10/19/17 15:44 Al Hydrox/Mg Hydrox/Simethicone (Maalox Max Susp) 15 ml Q4H PRN PO 09/19/17 15:45 10/19/17 15:44 Magnesium Hydroxide (Milk Of Magnesia Susp) 30 ml Q12H PRN PO 09/19/17 15:45 10/19/17 15:44 Ondansetron HCl (Zofran Inj) 4 mg Q6H PRN IV 09/19/17 15:45 10/19/17 15:44 Nitroglycerin (Nitrostat Tab) 0.4 mg UD PRN SL 09/19/17 15:45 10/19/17 15:44 Ergocalciferol (Vitamin D Cap) 50,000 interunit Fr@0900 PO 09/20/17 09:00 10/20/17 08:59 09/20/17 07:46 50,000 INTERUNIT Multi-Ingredient Ointment (Eucerin Unscented Cr) 1 appln BID EXT 09/19/17 21:00 10/19/17 20:59 Fluconazole (Diflucan Tab) 100 mg QAM PO 09/20/17 09:00 09/30/17 08:59 09/24/17 08:10 100 MG Glimepiride (Amaryl Tab) 2 mg QAM PO 09/20/17 09:00 10/20/17 08:59 09/24/17 08:10 2 MG Zolpidem Tartrate (Ambien Tab) 5 mg HS PO 09/19/17 21:00 10/19/17 20:59 Lactobacillus Acidophilus (Floranex Tab) 4 tab TIDM PO 09/19/17 18:00 10/19/17 17:59 09/23/17 08:40 4 TAB Hydromorphone HCl (Dilaudid Inj) 0.5 mg Q4H PRN IV 09/19/17 16:15 10/03/17 16:14 09/24/17 00:14 0.5 MG Imipenem/ Cilastatin Sodium (Consult) 1 ea UD PRN N/A 09/19/17 19:15 10/19/17 19:14 Daptomycin (Consult) 1 ea UD PRN N/A 09/19/17 20:30 10/19/17 20:29 Daptomycin 650 mg/ Syringe 13 ml @ 6.5 mls/min Q48H IV 09/20/17 12:00 09/30/17 11:59 09/24/17 12:28 6.5 MLS/MIN Bumetanide 2 mg/ Syringe 8 ml @ 4 mls/min BID@0900,1700 IV 09/20/17 09:00 10/20/17 08:59 09/24/17 09:56 4 MLS/MIN Imipenem/ Cilastatin Sodium 500 mg/Dextrose 110 ml @ 100 mls/hr Q12H IV 09/20/17 18:00 09/30/17 17:59 09/24/17 06:34 100 MLS/HR Oxycodone HCl (Roxicodone Immediate Rel Tab) 5 mg Q4H PRN PO 09/22/17 12:00 10/03/17 15:44 09/23/17 20:26 5 MG Heparin Sodium (Porcine) (Heparin 10 Unit/ ml 5 ml Flush) 5 ml PRN PRN FLUSH 09/22/17 18:45 10/22/17 18:44 09/24/17 12:28 5 ML Miconazole Nitrate (Desenex Powder) 1 appln PRN PRN EXT 09/24/17 10:45 10/24/17 10:44 Albumin Human (Albumin 25%) 12.5 gm BID IV 09/24/17 20:00 09/27/17 19:59 Objective Vital Signs Date Time Temp Pulse Resp B/P (MAP) Pulse Ox O2 Delivery O2 Flow Rate FiO2 09/24/17 08:17 36.7 105 18 101/65 (77) 91 Room Air 09/24/17 08:00 Nasal Cannula 4.0 09/24/17 01:15 Nasal Cannula 4.0 09/23/17 23:47 37.2 109 17 107/66 (80) 90 Nasal Cannula 4.0 09/23/17 16:00 92 Room Air 09/23/17 15:58 37.2 100 18 112/71 (85) 92 Nasal Cannula 3.0 Physical Exam General Appearance: WD/WN, no apparent distress, + obese Respiratory/Chest: no respiratory distress, no accessory muscle use, + decreased breath sounds, + wheezing Cardiovascular: regular rate, rhythm, no edema, + systolic murmur Abdomen: normal bowel sounds, non tender, soft, + distended Neurologic/Psychiatric: alert, oriented x 3 Skin: + pertinent finding (clean, intact dressing on bilateral lower extremities ) Laboratory Results 09/24/17 05:49 09/24/17 05:49 Test 09/24/17 05:49 09/24/17 07:59 Red Blood Count 3.63 M/uL (4.2-5.4) Mean Corpuscular Volume 81.5 fL (80-100) Mean Corpuscular Hemoglobin 25.1 pg (25-34) Mean Corpuscular Hemoglobin Concent 30.7 g/dl (32-36) RDW Standard Deviation 61.4 fL (36.4-46.3) RDW Coefficient of Variation 20.4 % (11.5-14.5) Mean Platelet Volume 9.9 fL (7.4-10.4) Anion Gap 9.0 mmol/L (3-11) Est Creatinine Clear Calc Drug Dose 18.7 ml/min Estimated GFR () 12.4 Estimated GFR (Non- 10.7 BUN/Creatinine Ratio 25.0 (10-20) Calcium Level 7.5 mg/dl (8.5-10.1) Bedside Glucose 140 mg/dl (70-90) Assessment and Plan 57yo female with numerous medical problems including chronic hypoxic/ hypercarbic respiratory failure on home O2, uncontrolled T2DM, CKD stage 4, chronic LE wounds, and chronic right sided heart failure (cor pulmonale) presenting with ARF, acute/chronic cor pulmonale, and worsening LE wounds b/l but most severe on the right leg. 2/6 continue wound treatment and IV abx. Patient -9L out thus far. Nephro and ID following. Stage 3 decubitus sacral ulcer and numerous wounds of the LEs -Right achilles, right heel, and left ankle -- previous culture with MRSA and has been on daptomycin for 2+ months. -Recent culture from the right foot grew pseudomonas & klebsiella. Repeat cultures today. -Continue imipenem and Daptomycin. ID following. -Patient refuses MRI and ultrasound to r/o osteomyelitis, tenosynovitis, etc. -Being seen by wound care; Aquacel Ag to the sacral wound with optifoam, and Aquacel with optifoam to all leg/foot wounds. -zinc, vit C, and MVI to help promote wound healing have been DCd per patient preference Severe LE edema -likely combination due to right sided heart failure -Patient refuses Dopplers of legs to rule out DVT Acute/chronic right sided heart failure and chronic diastolic CHF -Weight today is 120.9kg, weight in July of about 108-110kg. -She has significant ascites & LE edema. She reports noncompliance with both diet & fluid restriction. -Continue Bumex; albumin started per nephro, pt -9L out -Hold metazolone. -Hold aldactone until Cr and K will allow. -BMP in am. -Strict I's and O's; fluid restrict to 1500cc/day. 2 gram salt restriction. Chronic hypoxic/hypercarbic respiratory failure - 2nd to COPD, ROHAN, cannot exclude obesity-hypoventilation syndrome. -Stable at this time, on 4L NC Acute renal failure - possibly due to cardio-renal syndrome. She could have an element of post-obstruction as well -- she reports her rodriguez was leaking recently -New rodriguez placed. -slight improvement in creatinine -monitor i/o's and BMP -Nephrology following T2DM -uncontrolled - due to noncompliance with diet. -Per Dr. Giraldo: pt refuses insulin treatment and educated that Amaryl is not an ideal due to CKD. -Will monitor BMP on Amaryl Hyponatremia - likely 2nd to ARF - repeat BMP in am. Hypomagnesemia - due to metazolone/bumex usage. -Oral mag oxide replacement x 1 -Level has stabilized at 1.6-1.7 Anemia - chronic - 2nd to CKD; H/H acceptable today. COPD - stable, without exacerbation. ? cellulitis of lower abdominal wall -Continue abx chronic intertrigo - -Continue Diflucan daily. ROHAN -BIPAP patient requests level 1 full code status DVT proph - Patient refusing heparin, education has been provided to patient regarding DVT prophylaxis Reviewed: Pt Seen/Exam by Me History no new concerns happy about her creatinine being slightly lower. Constitutional: denies: fever Respiratory: negative: short of breath Cardiovascular: denies chest pain General Appearance: no apparent distress Respiratory: lungs clear, no respiratory distress Cardiovascular: regular rate, rhythm Extremities: other (both legs with dressing) Neurologic/Psychiatric: alert, oriented x 3 Assessment/Plan Resident Physician Supervision Note: I independently interviewed and examined the patient and verified the danielson history and physical, reviewed labs and image studies, discussed the case with the resident Dr. Fallon and agree with the findings and care plan.
--- NOTE | 2017-09-24 13:39 | Wound Progress Note: Inpatient ---
Wound Progress Note Date of Service Sep 20, 2017. Subjective Pt evaluation today including: conversation w/ patient, physical exam, chart review Patient is well-known to the wound clinic for chronic stage IV sacral ulcer as well as multiple ulcerations of both lower extremities. Patient was recently admitted to [facility] for renal failure. Patient developed increased blister formation on her right lower extremity over the past 2-3 days. Patient currently denies any fever chills or night sweats. Patient denies any increased pain in the extremity. Patient denies any additional specific systemic complaints. Objective Vital Signs Date Time Temp Pulse Resp B/P (MAP) Pulse Ox O2 Delivery O2 Flow Rate FiO2 09/24/17 08:17 36.7 105 18 101/65 (77) 91 Room Air 09/24/17 08:00 Nasal Cannula 4.0 09/24/17 01:15 Nasal Cannula 4.0 09/23/17 23:47 37.2 109 17 107/66 (80) 90 Nasal Cannula 4.0 09/23/17 16:00 92 Room Air 09/23/17 15:58 37.2 100 18 112/71 (85) 92 Nasal Cannula 3.0 Physical Exam Notes: Patients vital signs were reviewed and found to be unremarkable patient is afebrile. Patient continues to have persistent multiple pressure ulcerations to the sacral region left heel right and left lower extremities. These are basically stable and consistent with her prior evaluation 2 weeks ago at the wound center. There is no significant slough or periwound erythema at the sites. No active drainage or odor noted. There is a new scattered areas of blister formation with epithelial desquamation noted to the right lower extremity circumferentially at the mid calf region measuring 10 x 32 x 0.1 cm. No active drainage or slough noted at these sites. No significant no edema noted in the extremity. Distal neurovascular bundles intact. Laboratory Results Last 24 Hours Test 09/23/17 20:07 09/24/17 05:49 09/24/17 07:59 09/24/17 12:16 Bedside Glucose 151 mg/dl 140 mg/dl 155 mg/dl White Blood Count 7.09 K/uL Red Blood Count 3.63 M/uL Hemoglobin 9.1 g/dL Hematocrit 29.6 % Mean Corpuscular Volume 81.5 fL Mean Corpuscular Hemoglobin 25.1 pg Mean Corpuscular Hemoglobin Concent 30.7 g/dl RDW Standard Deviation 61.4 fL RDW Coefficient of Variation 20.4 % Platelet Count 167 K/uL Mean Platelet Volume 9.9 fL Sodium Level 135 mmol/L Potassium Level 4.0 mmol/L Chloride Level 95 mmol/L Carbon Dioxide Level 31 mmol/L Anion Gap 9.0 mmol/L Blood Urea Nitrogen 107 mg/dl Creatinine 4.26 mg/dl Est Creatinine Clear Calc Drug Dose 18.7 ml/min Estimated GFR () 12.4 Estimated GFR (Non- 10.7 BUN/Creatinine Ratio 25.0 Random Glucose 124 mg/dl Calcium Level 7.5 mg/dl Assessment and Plan Assessment: Multiple stage II and III pressure ulcers of the sacral region and bilateral lower extremities New blister formation with desquamation right lower extremity Plan: At this time the site of blister formation did require debridement. With patient's permission the blisters working removed and desquamated skin products were removed with scissors and forceps. No significant bleeding occurred. The site will be managed with Xeroform and gauze change daily all other sites of be managed as before with aqua cell AG and gauze dressings daily. Patient will be applied to the eschar the right heel region. Patient will continue to be monitored during her hospitalization followed up in the outpatient clinic upon discharge. This represented a non-excisional debridement of approximately 320 cm.
[2017-09-24] MEDS: OXYCODONE HCL IR 5 MG TAB (IMMEDIATE RELEASE) PO PRN ×2 (13:55→21:14)
--- NOTE | 2017-09-24 14:40 | Infectious Disease Progress Nt ---
Progress Note Date of Service Sep 24, 2017. Subjective Pt evaluation today including: conversation w/ patient, physical exam, chart review, lab review, review of studies, conversation w/ network systems consultant, review of inpatient medication list Dr. Rothman as follow-up noted. Patient appears to be slowly improving. Foul odor has improved. No fever. Swelling decreasing. All Other Systems: Reviewed and Negative Medications Current Inpatient Medications Medications (Trade) Dose Ordered Sig/Bruno Route Start Time Stop Time Status Last Admin Dose Admin Heparin Sodium (Porcine) (Heparin Sq 5000 Unit/0.5ml) 5,000 unit Q12 SQ 09/19/17 21:00 10/19/17 20:59 Acetaminophen (Tylenol Tab) 650 mg Q4H PRN PO 09/19/17 15:45 10/19/17 15:44 Al Hydrox/Mg Hydrox/Simethicone (Maalox Max Susp) 15 ml Q4H PRN PO 09/19/17 15:45 10/19/17 15:44 Magnesium Hydroxide (Milk Of Magnesia Susp) 30 ml Q12H PRN PO 09/19/17 15:45 10/19/17 15:44 Ondansetron HCl (Zofran Inj) 4 mg Q6H PRN IV 09/19/17 15:45 10/19/17 15:44 Nitroglycerin (Nitrostat Tab) 0.4 mg UD PRN SL 09/19/17 15:45 10/19/17 15:44 Ergocalciferol (Vitamin D Cap) 50,000 interunit Fr@0900 PO 09/20/17 09:00 10/20/17 08:59 09/20/17 07:46 50,000 INTERUNIT Multi-Ingredient Ointment (Eucerin Unscented Cr) 1 appln BID EXT 09/19/17 21:00 10/19/17 20:59 Fluconazole (Diflucan Tab) 100 mg QAM PO 09/20/17 09:00 09/30/17 08:59 09/24/17 08:10 100 MG Glimepiride (Amaryl Tab) 2 mg QAM PO 09/20/17 09:00 10/20/17 08:59 09/24/17 08:10 2 MG Zolpidem Tartrate (Ambien Tab) 5 mg HS PO 09/19/17 21:00 10/19/17 20:59 Lactobacillus Acidophilus (Floranex Tab) 4 tab TIDM PO 09/19/17 18:00 10/19/17 17:59 09/23/17 08:40 4 TAB Hydromorphone HCl (Dilaudid Inj) 0.5 mg Q4H PRN IV 09/19/17 16:15 10/03/17 16:14 09/24/17 00:14 0.5 MG Imipenem/ Cilastatin Sodium (Consult) 1 ea UD PRN N/A 09/19/17 19:15 10/19/17 19:14 Daptomycin (Consult) 1 ea UD PRN N/A 09/19/17 20:30 10/19/17 20:29 Daptomycin 650 mg/ Syringe 13 ml @ 6.5 mls/min Q48H IV 09/20/17 12:00 09/30/17 11:59 09/24/17 12:28 6.5 MLS/MIN Bumetanide 2 mg/ Syringe 8 ml @ 4 mls/min BID@0900,1700 IV 09/20/17 09:00 10/20/17 08:59 09/24/17 09:56 4 MLS/MIN Imipenem/ Cilastatin Sodium 500 mg/Dextrose 110 ml @ 100 mls/hr Q12H IV 09/20/17 18:00 09/30/17 17:59 09/24/17 06:34 100 MLS/HR Oxycodone HCl (Roxicodone Immediate Rel Tab) 5 mg Q4H PRN PO 09/22/17 12:00 10/03/17 15:44 09/24/17 13:55 5 MG Heparin Sodium (Porcine) (Heparin 10 Unit/ ml 5 ml Flush) 5 ml PRN PRN FLUSH 09/22/17 18:45 10/22/17 18:44 09/24/17 12:28 5 ML Miconazole Nitrate (Desenex Powder) 1 appln PRN PRN EXT 09/24/17 10:45 10/24/17 10:44 Albumin Human (Albumin 25%) 12.5 gm BID IV 09/24/17 20:00 09/27/17 19:59 Objective Vital Signs Date Time Temp Pulse Resp B/P (MAP) Pulse Ox O2 Delivery O2 Flow Rate FiO2 09/24/17 08:17 36.7 105 18 101/65 (77) 91 Room Air 09/24/17 08:00 Nasal Cannula 4.0 09/24/17 01:15 Nasal Cannula 4.0 09/23/17 23:47 37.2 109 17 107/66 (80) 90 Nasal Cannula 4.0 09/23/17 16:00 92 Room Air 09/23/17 15:58 37.2 100 18 112/71 (85) 92 Nasal Cannula 3.0 Physical Exam General Appearance: WD/WN, no apparent distress, + obese Eyes: normal inspection, EOMI, sclerae normal ENT: normal ENT inspection, hearing grossly normal, pharynx normal Neck: supple, no adenopathy, thyroid normal, trachea midline Respiratory/Chest: chest non-tender, lungs clear, normal breath sounds, no respiratory distress Cardiovascular: regular rate, rhythm, no gallop, no murmur Abdomen: normal bowel sounds, non tender, soft, no organomegaly Extremities: + inflammation, + swelling Neurologic/Psychiatric: alert, oriented x 3 Skin: normal color, no rash, + pertinent finding (Leg and sacral ulcerations appears slightly better) Lymphatic: no adenopathy Laboratory Results RUN DATE: 09/24/17 [facility] LAB PAGE 1 RUN TIME: 1009 Specimen Inquiry PATIENT: LOC PADILLA LOC: [id number] U # : [id number] AGE/SX: 57/F ROOM: [facility] REG : 09/19/[address]: Luna Lin M.D. : 1960 BED: 1 DIS : STATUS: ADM IN TLOC: SPEC #: [id number] DINO: 09/22/17 STATUS: COMP REQ #: [id number] RECD: 09/22/[address]: Hernan Morgan MD , PhD SOURCE: URINE CATH ENTR: 09/22/[address]: Jake Brown MD SPDESC: Maxime Nava I., Parminder Gilliam, Luna Triplett M.D. Siuta, Jonathan R., MD ORDERED: CULTURE UR CATH COMMENTS: Has Specimen Been Obtained/Collected? Y Procedure Result Verified Site URINE CULTURE Final 09/24/17-1009 NO GROWTH - LESS THAN 1,000 COLONIES/ML Last 24 Hours Test 09/23/17 20:07 09/24/17 05:49 09/24/17 07:59 09/24/17 12:16 Bedside Glucose 151 mg/dl 140 mg/dl 155 mg/dl White Blood Count 7.09 K/uL Red Blood Count 3.63 M/uL Hemoglobin 9.1 g/dL Hematocrit 29.6 % Mean Corpuscular Volume 81.5 fL Mean Corpuscular Hemoglobin 25.1 pg Mean Corpuscular Hemoglobin Concent 30.7 g/dl RDW Standard Deviation 61.4 fL RDW Coefficient of Variation 20.4 % Platelet Count 167 K/uL Mean Platelet Volume 9.9 fL Sodium Level 135 mmol/L Potassium Level 4.0 mmol/L Chloride Level 95 mmol/L Carbon Dioxide Level 31 mmol/L Anion Gap 9.0 mmol/L Blood Urea Nitrogen 107 mg/dl Creatinine 4.26 mg/dl Est Creatinine Clear Calc Drug Dose 18.7 ml/min Estimated GFR () 12.4 Estimated GFR (Non- 10.7 BUN/Creatinine Ratio 25.0 Random Glucose 124 mg/dl Calcium Level 7.5 mg/dl Assessment and Plan 57 yo poorly controlled diabetic female with heart failure with worsening edema/ fluid retention with worsening infection of leg ulcers and sacral decubitus but now improving with hospital care and change in IV antibiotics. Patient should continue on present treatment. Will continue to follow.
[2017-09-24 17:15] VITALS: BP 108/70
[2017-09-24] MEDS: ZOLPIDEM TARTRATE 5 MG TAB PO SCH (20:15)
[2017-09-24 23:26] VITALS: BP 112/80; PULSE 109; TEMP 36.9; O2SAT 91
[2017-09-25] MEDS: IMIPENEM/CILASTATIN IV 500 MG in DEXTROSE 5% 100ML 100 ML IV SCH ×2 (06:33→18:23)
[2017-09-25] MEDS: OXYCODONE HCL IR 5 MG TAB (IMMEDIATE RELEASE) PO PRN ×2 (07:17→18:29)
[2017-09-25 07:18] VITALS: BP 117/73; PULSE 101; TEMP 36.9; O2SAT 93
[2017-09-25 07:56] LABS: BASO % 0.4 %; BASO ABS # 0.03 K/uL (0-0.2); EOS % 1.9 %; EOS ABS # 0.15 K/uL (0-0.5); HEMATOCRIT 30.1 % (37-47); HEMOGLOBIN 9.3 g/dL (12.0-16.0); IG# 0.02 K/uL (0.00-0.02); LYMPH % 9.1 %; LYMPH ABS # 0.72 K/uL (1.2-3.4); MEAN CELL VOLUME 81.6 fL (80-100); MEAN CORPUSCULAR HEMOGLOBIN 25.2 pg (25-34); MEAN CORPUSCULAR HGB CONC 30.9 g/dl (32-36); MEAN PLATELET VOLUME 9.6 fL (7.4-10.4); MONO ABS # 0.63 K/uL (0.11-0.59); NEUT % 80.3 %; NEUT ABS # 6.35 K/uL (1.4-6.5); PLATELET COUNT 168 K/uL (130-400); RED CELL DISTRIBUTION WIDTH CV 20.7 % (11.5-14.5); RED CELL DISTRIBUTION WIDTH SD 62.2 fL (36.4-46.3)
[2017-09-25] MEDS: LACTOBACILLUS ACIDOPHILUS (FLORANEX) TAB PO SCH ×3 (08:00→17:00)
[2017-09-25] MEDS: EUCERIN CR 120 GM JAR EXT SCH ×2 (08:00→19:32)
[2017-09-25] MEDS: ALBUMIN HUMAN 25% 12.5 GM/50 ML VIAL IV SCH ×2 (08:00→19:32)
[2017-09-25] MEDS: HEPARIN SOD 5000 UNIT/0.5 ML CARP SQ SCH ×2 (08:13→19:32)
[2017-09-25] MEDS: FLUCONAZOLE 100 MG TAB PO SCH (08:14)
[2017-09-25] MEDS: BUMETANIDE IV 2 MG in SYRINGE 0 ML IV SCH ×2 (08:15→16:16)
[2017-09-25] MEDS: GLIMEPIRIDE 2 MG TAB PO SCH (08:15)
[2017-09-25 08:30] VITALS: O2SAT 93
[2017-09-25 08:30] LABS: CALCIUM 7.6 mg/dl (8.5-10.1); CREATININE 3.97 mg/dl (0.60-1.20); POTASSIUM 3.6 mmol/L (3.5-5.1)
[2017-09-25] MEDS ORDERED: POTASSIUM CHLORIDE 20 MEQ TABCR PO ONE (10:15)
--- NOTE | 2017-09-25 10:55 | DIAGNOSTIC IMAGING REPORT ---
R WRIST 2 VIEW CLINICAL HISTORY: 57 years-old Female presenting with wrist pain, decrease ROM. TECHNIQUE: Frontal and lateral views of the right wrist were obtained. COMPARISON: None. FINDINGS: Osteopenia. No acute fracture or malalignment. No advanced degenerative change. No radiographic soft tissue abnormality. IMPRESSION: No acute osseous injury of the right wrist within limitation of 2 views only. Electronically signed by: Garett Aguilera M.D. 09/25/2017 10:54 AM Dictated Date/Time: 09/25/2017 10:52 AM
[2017-09-25] MEDS ORDERED: NURSING VERBAL MED ORDER ONE (13:00)
[2017-09-25] MEDS ORDERED: COUGH DROP (SUGAR FREE) LOZ 24 LOZ/1 BOX LOZ PRN (13:15)
--- NOTE | 2017-09-25 15:20 | Family Medicine Progress Note ---
Progress Note Date of Service Sep 25, 2017. Subjective Pt evaluation today including: conversation w/ patient, physical exam, chart review, lab review Patient reports right wrist pain. Feels that she slept on it the wrong. Denies trouble breathing. Patient has not gotten out of bed today. Constitutional: No fever, No chills, No sweats Respiratory: + cough, + sputum, + wheezing, + shortness of breath Cardiovascular: No chest pain, No palpitations Abdomen: No pain, No nausea, No vomiting, No diarrhea Female : No dysuria Medications Current Inpatient Medications Medications (Trade) Dose Ordered Sig/Bruno Route Start Time Stop Time Status Last Admin Dose Admin Heparin Sodium (Porcine) (Heparin Sq 5000 Unit/0.5ml) 5,000 unit Q12 SQ 09/19/17 21:00 10/19/17 20:59 Acetaminophen (Tylenol Tab) 650 mg Q4H PRN PO 09/19/17 15:45 10/19/17 15:44 Al Hydrox/Mg Hydrox/Simethicone (Maalox Max Susp) 15 ml Q4H PRN PO 09/19/17 15:45 10/19/17 15:44 Magnesium Hydroxide (Milk Of Magnesia Susp) 30 ml Q12H PRN PO 09/19/17 15:45 10/19/17 15:44 Ondansetron HCl (Zofran Inj) 4 mg Q6H PRN IV 09/19/17 15:45 10/19/17 15:44 Nitroglycerin (Nitrostat Tab) 0.4 mg UD PRN SL 09/19/17 15:45 10/19/17 15:44 Ergocalciferol (Vitamin D Cap) 50,000 interunit Fr@0900 PO 09/20/17 09:00 10/20/17 08:59 09/20/17 07:46 50,000 INTERUNIT Multi-Ingredient Ointment (Eucerin Unscented Cr) 1 appln BID EXT 09/19/17 21:00 10/19/17 20:59 Fluconazole (Diflucan Tab) 100 mg QAM PO 09/20/17 09:00 09/30/17 08:59 09/25/17 08:14 100 MG Glimepiride (Amaryl Tab) 2 mg QAM PO 09/20/17 09:00 10/20/17 08:59 09/25/17 08:15 2 MG Zolpidem Tartrate (Ambien Tab) 5 mg HS PO 09/19/17 21:00 10/19/17 20:59 Lactobacillus Acidophilus (Floranex Tab) 4 tab TIDM PO 09/19/17 18:00 10/19/17 17:59 09/23/17 08:40 4 TAB Hydromorphone HCl (Dilaudid Inj) 0.5 mg Q4H PRN IV 09/19/17 16:15 10/03/17 16:14 09/24/17 17:30 0.5 MG Imipenem/ Cilastatin Sodium (Consult) 1 ea UD PRN N/A 09/19/17 19:15 10/19/17 19:14 Daptomycin (Consult) 1 ea UD PRN N/A 09/19/17 20:30 10/19/17 20:29 Daptomycin 650 mg/ Syringe 13 ml @ 6.5 mls/min Q48H IV 09/20/17 12:00 09/30/17 11:59 09/24/17 12:28 6.5 MLS/MIN Bumetanide 2 mg/ Syringe 8 ml @ 4 mls/min BID@0900,1700 IV 09/20/17 09:00 10/20/17 08:59 09/25/17 08:15 4 MLS/MIN Imipenem/ Cilastatin Sodium 500 mg/Dextrose 110 ml @ 100 mls/hr Q12H IV 09/20/17 18:00 09/30/17 17:59 09/25/17 06:33 100 MLS/HR Oxycodone HCl (Roxicodone Immediate Rel Tab) 5 mg Q4H PRN PO 09/22/17 12:00 10/03/17 15:44 09/25/17 07:17 5 MG Heparin Sodium (Porcine) (Heparin 10 Unit/ ml 5 ml Flush) 5 ml PRN PRN FLUSH 09/22/17 18:45 10/22/17 18:44 09/25/17 08:16 5 ML Miconazole Nitrate (Desenex Powder) 1 appln PRN PRN EXT 09/24/17 10:45 10/24/17 10:44 Albumin Human (Albumin 25%) 12.5 gm BID IV 09/24/17 20:00 09/27/17 19:59 Menthol (Nice Umberto) 1 umberto PRN PRN UMBERTO 09/25/17 13:15 10/25/17 13:14 09/25/17 13:55 24 UMBERTO Objective Vital Signs Date Time Temp Pulse Resp B/P (MAP) Pulse Ox O2 Delivery O2 Flow Rate FiO2 09/25/17 08:30 93 Nasal Cannula 4.0 09/25/17 07:18 36.9 101 18 117/73 (88) 93 Nasal Cannula 4.0 09/25/17 00:35 Nasal Cannula 4.0 Humidified Oxygen 09/24/17 23:26 36.9 109 20 112/80 (91) 91 Nasal Cannula Humidified Oxygen 09/24/17 17:15 108/70 (83) 09/24/17 16:00 Nasal Cannula 4.0 Physical Exam General Appearance: WD/WN, no apparent distress, + obese Eyes: normal inspection Neck: supple, no adenopathy, thyroid normal Respiratory/Chest: chest non-tender, no respiratory distress, no accessory muscle use, + wheezing (bilaterally) Cardiovascular: regular rate, rhythm, no edema, + systolic murmur Abdomen: normal bowel sounds, non tender, soft, + distended Extremities: + pertinent finding (decreased passive/active ROM of right wrist ) Neurologic/Psychiatric: alert, normal mood/affect, oriented x 3 Skin: + pertinent finding (clean, intact dressing on bilateral lower ext. ) Laboratory Results 09/25/17 07:31 Red Blood Count 3.69, Mean Corpuscular Volume 81.6, Mean Corpuscular Hemoglobin 25.2, Mean Corpuscular Hemoglobin Concent 30.9, Mean Platelet Volume 9.6, Neutrophils (%) (Auto) 80.3, Lymphocytes (%) (Auto) 9.1, Monocytes (%) (Auto) 8.0, Eosinophils (%) (Auto) 1.9, Basophils (%) (Auto) 0.4, Neutrophils # (Auto) 6.35, Lymphocytes # (Auto) 0.72, Monocytes # (Auto) 0.63, Eosinophils # (Auto) 0.15, Basophils # (Auto) 0.03 09/25/17 07:31 Test 09/25/17 07:31 09/25/17 11:04 White Blood Count 7.90 K/uL (4.8-10.8) Red Blood Count 3.69 M/uL (4.2-5.4) Hemoglobin 9.3 g/dL (12.0-16.0) Hematocrit 30.1 % (37-47) Mean Corpuscular Volume 81.6 fL (80-100) Mean Corpuscular Hemoglobin 25.2 pg (25-34) Mean Corpuscular Hemoglobin Concent 30.9 g/dl (32-36) Platelet Count 168 K/uL (130-400) Mean Platelet Volume 9.6 fL (7.4-10.4) Neutrophils (%) (Auto) 80.3 % Lymphocytes (%) (Auto) 9.1 % Monocytes (%) (Auto) 8.0 % Eosinophils (%) (Auto) 1.9 % Basophils (%) (Auto) 0.4 % Neutrophils # (Auto) 6.35 K/uL (1.4-6.5) Lymphocytes # (Auto) 0.72 K/uL (1.2-3.4) Monocytes # (Auto) 0.63 K/uL (0.11-0.59) Eosinophils # (Auto) 0.15 K/uL (0-0.5) Basophils # (Auto) 0.03 K/uL (0-0.2) RDW Standard Deviation 62.2 fL (36.4-46.3) RDW Coefficient of Variation 20.7 % (11.5-14.5) Immature Granulocyte % (Auto) 0.3 % Immature Granulocyte # (Auto) 0.02 K/uL (0.00-0.02) Anisocytosis PRESENT Anion Gap 13.0 mmol/L (3-11) Est Creatinine Clear Calc Drug Dose 20.1 ml/min Estimated GFR () 13.5 Estimated GFR (Non- 11.6 BUN/Creatinine Ratio 28.1 (10-20) Calcium Level 7.6 mg/dl (8.5-10.1) Bedside Glucose 138 mg/dl (70-90) Assessment and Plan 57yo female with numerous medical problems including chronic hypoxic/ hypercarbic respiratory failure on home O2, uncontrolled T2DM, CKD stage 4, chronic LE wounds, and chronic right sided heart failure (cor pulmonale) presenting with ARF, acute/chronic cor pulmonale, and worsening LE wounds b/l but most severe on the right leg. 2/7 continue wound treatment and IV abx. Patient -1.3L out thus far. Nephro and ID following. Patient c/o right wrist pain today, xray unremarkable. Stage 3 decubitus sacral ulcer and numerous wounds of the LEs -Right achilles, right heel, and left ankle -- previous culture with MRSA and has been on daptomycin for 2+ months. -Recent culture from the right foot grew pseudomonas & klebsiella. Repeat cultures today. -Continue imipenem and Daptomycin. ID following. -Patient refuses MRI and ultrasound to r/o osteomyelitis, tenosynovitis, etc. -Being seen by wound care; Aquacel Ag to the sacral wound with optifoam, and Aquacel with optifoam to all leg/foot wounds. -zinc, vit C, and MVI to help promote wound healing have been DCd per patient preference Severe LE edema -likely combination due to right sided heart failure -Patient refuses Dopplers of legs to rule out DVT Acute/chronic right sided heart failure and chronic diastolic CHF -Weight today is 120.9kg, weight in July of about 108-110kg. -She has significant ascites & LE edema. She reports noncompliance with both diet & fluid restriction. -Continue Bumex; albumin started per nephro -Hold metazolone. -Hold aldactone until Cr and K will allow. -BMP in am. -Strict I's and O's; fluid restrict to 1500cc/day. 2 gram salt restriction. Right Wrist Pain, possibly 2/2 to Gout -Wrist is tender, decreased ROM -Xray unremarkable for fracture -Uric acid level -consider prednisone/colchicine Chronic hypoxic/hypercarbic respiratory failure - 2nd to COPD, ROHAN, cannot exclude obesity-hypoventilation syndrome. -Stable at this time, on 4L NC Acute renal failure - possibly due to cardio-renal syndrome. She could have an element of post-obstruction as well -- she reports her rodriguez was leaking recently -New rdoriguez placed. -slight improvement in creatinine -monitor i/o's and BMP -Nephrology following T2DM -uncontrolled - due to noncompliance with diet. -Per Dr. Giraldo: pt refuses insulin treatment and educated that Amaryl is not an ideal due to CKD. -Will monitor BMP on Amaryl Hyponatremia - likely 2nd to ARF - repeat BMP in am. Hypomagnesemia - due to metazolone/bumex usage. -Oral mag oxide replacement x 1 -Level has stabilized at 1.6-1.7 Anemia - chronic - 2nd to CKD; H/H acceptable today. COPD - stable, without exacerbation. ? cellulitis of lower abdominal wall -Continue abx chronic intertrigo - -Continue Diflucan daily. ROHAN -BIPAP patient requests level 1 full code status DVT proph - Patient refusing heparin, education has been provided to patient regarding DVT prophylaxis Reviewed: Pt Seen/Exam by Me History c/o right wrist pain. Constitutional: denies: fever Respiratory: negative: short of breath Cardiovascular: denies chest pain General Appearance: no apparent distress Respiratory: lungs clear, no respiratory distress Cardiovascular: regular rate, rhythm Extremities: other (right wrist- no swelling. tenderness in the lateral side of joint. ROM limited due to pain) Neurologic/Psychiatric: alert, oriented x 3 Assessment/Plan Resident Physician Supervision Note: I independently interviewed and examined the patient and verified the danielson history and physical, reviewed labs and image studies, discussed the case with the resident Dr. Fallon and agree with the findings and care plan.
[2017-09-25 16:00] VITALS: O2SAT 93
[2017-09-25] MEDS: HYDROmorphone INJ 0.5 MG/0.5 ML SYR IV PRN ×2 (16:17→20:44)
[2017-09-25] MEDS: ZOLPIDEM TARTRATE 5 MG TAB PO SCH (19:33)
[2017-09-26 00:28] VITALS: BP 113/69; PULSE 108; TEMP 37; O2SAT 91
[2017-09-26] MEDS: HYDROmorphone INJ 0.5 MG/0.5 ML SYR IV PRN ×3 (00:44→23:14)
[2017-09-26 06:02] LABS: BASO % 0.1 %; BASO ABS # 0.01 K/uL (0-0.2); EOS % 0.8 %; EOS ABS # 0.08 K/uL (0-0.5); HEMATOCRIT 29.1 % (37-47); HEMOGLOBIN 9.2 g/dL (12.0-16.0); IG# 0.02 K/uL (0.00-0.02); LYMPH % 8.7 %; LYMPH ABS # 0.86 K/uL (1.2-3.4); MEAN CELL VOLUME 81.7 fL (80-100); MEAN CORPUSCULAR HEMOGLOBIN 25.8 pg (25-34); MEAN CORPUSCULAR HGB CONC 31.6 g/dl (32-36); MEAN PLATELET VOLUME 9.6 fL (7.4-10.4); MONO % 6.5 %; MONO ABS # 0.64 K/uL (0.11-0.59); NEUT % 83.7 %; NEUT ABS # 8.27 K/uL (1.4-6.5); PLATELET COUNT 152 K/uL (130-400); RED CELL DISTRIBUTION WIDTH CV 20.4 % (11.5-14.5); RED CELL DISTRIBUTION WIDTH SD 61.2 fL (36.4-46.3); WHITE BLOOD COUNT 9.88 K/uL (4.8-10.8)
[2017-09-26] MEDS: IMIPENEM/CILASTATIN IV 500 MG in DEXTROSE 5% 100ML 100 ML IV SCH ×2 (06:28→18:48)
[2017-09-26 06:42] LABS: CALCIUM 6.9 mg/dl (8.5-10.1); CREATININE 3.8 mg/dl (0.60-1.20); POTASSIUM 3.2 mmol/L (3.5-5.1); URIC ACID 12.3 mg/dl (2.6-7.2)
[2017-09-26 07:23] VITALS: BP 108/74; PULSE 77; TEMP 36.9; O2SAT 97
[2017-09-26 08:00] VITALS: O2SAT 97
[2017-09-26] MEDS: ALBUMIN HUMAN 25% 12.5 GM/50 ML VIAL IV SCH ×2 (08:00→19:58)
[2017-09-26] MEDS: LACTOBACILLUS ACIDOPHILUS (FLORANEX) TAB PO SCH ×3 (08:00→16:27)
[2017-09-26] MEDS: EUCERIN CR 120 GM JAR EXT SCH ×2 (08:00→19:58)
[2017-09-26] MEDS ORDERED: POTASSIUM CHLORIDE 20 MEQ TABCR PO ONE (08:15)
[2017-09-26] MEDS: HEPARIN SOD 5000 UNIT/0.5 ML CARP SQ SCH ×2 (09:00→19:58)
[2017-09-26] MEDS: GLIMEPIRIDE 2 MG TAB PO SCH (09:10)
[2017-09-26] MEDS: FLUCONAZOLE 100 MG TAB PO SCH (09:11)
[2017-09-26] MEDS: BUMETANIDE IV 2 MG in SYRINGE 0 ML IV SCH ×2 (09:13→09:27)
--- NOTE | 2017-09-26 14:10 | Family Medicine Progress Note ---
Progress Note Date of Service Sep 26, 2017. Subjective Pt evaluation today including: conversation w/ patient, physical exam, chart review, lab review Patient reports continued pain in her right wrist. She is non-ambulatory. Constitutional: No fever, No chills, No sweats Respiratory: + cough, + sputum, No wheezing, No shortness of breath Cardiovascular: No chest pain, No palpitations Abdomen: No pain, No nausea, No vomiting, No diarrhea Medications Current Inpatient Medications Medications (Trade) Dose Ordered Sig/Bruno Route Start Time Stop Time Status Last Admin Dose Admin Heparin Sodium (Porcine) (Heparin Sq 5000 Unit/0.5ml) 5,000 unit Q12 SQ 09/19/17 21:00 10/19/17 20:59 Acetaminophen (Tylenol Tab) 650 mg Q4H PRN PO 09/19/17 15:45 10/19/17 15:44 Al Hydrox/Mg Hydrox/Simethicone (Maalox Max Susp) 15 ml Q4H PRN PO 09/19/17 15:45 10/19/17 15:44 Magnesium Hydroxide (Milk Of Magnesia Susp) 30 ml Q12H PRN PO 09/19/17 15:45 10/19/17 15:44 Ondansetron HCl (Zofran Inj) 4 mg Q6H PRN IV 09/19/17 15:45 10/19/17 15:44 Nitroglycerin (Nitrostat Tab) 0.4 mg UD PRN SL 09/19/17 15:45 10/19/17 15:44 Ergocalciferol (Vitamin D Cap) 50,000 interunit Fr@0900 PO 09/20/17 09:00 10/20/17 08:59 09/20/17 07:46 50,000 INTERUNIT Multi-Ingredient Ointment (Eucerin Unscented Cr) 1 appln BID EXT 09/19/17 21:00 10/19/17 20:59 Fluconazole (Diflucan Tab) 100 mg QAM PO 09/20/17 09:00 09/30/17 08:59 09/26/17 09:11 100 MG Glimepiride (Amaryl Tab) 2 mg QAM PO 09/20/17 09:00 10/20/17 08:59 09/26/17 09:10 2 MG Zolpidem Tartrate (Ambien Tab) 5 mg HS PO 09/19/17 21:00 10/19/17 20:59 Lactobacillus Acidophilus (Floranex Tab) 4 tab TIDM PO 09/19/17 18:00 10/19/17 17:59 09/23/17 08:40 4 TAB Hydromorphone HCl (Dilaudid Inj) 0.5 mg Q4H PRN IV 09/19/17 16:15 10/03/17 16:14 09/26/17 09:28 0.5 MG Imipenem/ Cilastatin Sodium (Consult) 1 ea UD PRN N/A 09/19/17 19:15 10/19/17 19:14 Bumetanide 2 mg/ Syringe 8 ml @ 4 mls/min BID@0900,1700 IV 09/20/17 09:00 10/20/17 08:59 09/26/17 09:27 4 MLS/MIN Imipenem/ Cilastatin Sodium 500 mg/Dextrose 110 ml @ 100 mls/hr Q12H IV 09/20/17 18:00 09/30/17 17:59 09/26/17 06:28 100 MLS/HR Oxycodone HCl (Roxicodone Immediate Rel Tab) 5 mg Q4H PRN PO 09/22/17 12:00 10/03/17 15:44 09/25/17 18:29 5 MG Heparin Sodium (Porcine) (Heparin 10 Unit/ ml 5 ml Flush) 5 ml PRN PRN FLUSH 09/22/17 18:45 10/22/17 18:44 09/26/17 09:28 5 ML Miconazole Nitrate (Desenex Powder) 1 appln PRN PRN EXT 09/24/17 10:45 10/24/17 10:44 Albumin Human (Albumin 25%) 12.5 gm BID IV 09/24/17 20:00 09/27/17 19:59 Menthol (Nice Umbetro) 1 umberto PRN PRN UMBERTO 09/25/17 13:15 10/25/17 13:14 09/25/17 13:55 24 UMBERTO Prednisone (PredniSONE TAB) 40 mg DAILY PO 09/27/17 08:00 10/27/17 07:59 Prednisone (PredniSONE TAB) 40 mg TODAY@0931 ONCE PO 09/27/17 09:31 09/27/17 09:32 Objective Vital Signs Date Time Temp Pulse Resp B/P (MAP) Pulse Ox O2 Delivery O2 Flow Rate FiO2 09/26/17 08:00 97 Nasal Cannula 4.0 09/26/17 07:23 36.9 77 19 108/74 (85) 97 Nasal Cannula 4.0 09/26/17 00:28 37.0 108 18 113/69 (84) 91 Nasal Cannula 4.0 09/25/17 16:00 93 Nasal Cannula 4.0 Physical Exam General Appearance: WD/WN, no apparent distress Respiratory/Chest: chest non-tender, lungs clear, no respiratory distress, no accessory muscle use, + decreased breath sounds Cardiovascular: regular rate, rhythm, no murmur Abdomen: normal bowel sounds, non tender, soft Neurologic/Psychiatric: alert, normal mood/affect, oriented x 3 Skin: + pertinent finding (clean intact dressing on bilateral lower extremity ) Laboratory Results 09/26/17 05:23 Red Blood Count 3.56, Mean Corpuscular Volume 81.7, Mean Corpuscular Hemoglobin 25.8, Mean Corpuscular Hemoglobin Concent 31.6, Mean Platelet Volume 9.6, Neutrophils (%) (Auto) 83.7, Lymphocytes (%) (Auto) 8.7, Monocytes (%) (Auto) 6.5, Eosinophils (%) (Auto) 0.8, Basophils (%) (Auto) 0.1, Neutrophils # (Auto) 8.27, Lymphocytes # (Auto) 0.86, Monocytes # (Auto) 0.64, Eosinophils # (Auto) 0.08, Basophils # (Auto) 0.01 09/26/17 05:23 Test 09/26/17 05:23 09/26/17 11:46 White Blood Count 9.88 K/uL (4.8-10.8) Red Blood Count 3.56 M/uL (4.2-5.4) Hemoglobin 9.2 g/dL (12.0-16.0) Hematocrit 29.1 % (37-47) Mean Corpuscular Volume 81.7 fL (80-100) Mean Corpuscular Hemoglobin 25.8 pg (25-34) Mean Corpuscular Hemoglobin Concent 31.6 g/dl (32-36) Platelet Count 152 K/uL (130-400) Mean Platelet Volume 9.6 fL (7.4-10.4) Neutrophils (%) (Auto) 83.7 % Lymphocytes (%) (Auto) 8.7 % Monocytes (%) (Auto) 6.5 % Eosinophils (%) (Auto) 0.8 % Basophils (%) (Auto) 0.1 % Neutrophils # (Auto) 8.27 K/uL (1.4-6.5) Lymphocytes # (Auto) 0.86 K/uL (1.2-3.4) Monocytes # (Auto) 0.64 K/uL (0.11-0.59) Eosinophils # (Auto) 0.08 K/uL (0-0.5) Basophils # (Auto) 0.01 K/uL (0-0.2) RDW Standard Deviation 61.2 fL (36.4-46.3) RDW Coefficient of Variation 20.4 % (11.5-14.5) Immature Granulocyte % (Auto) 0.2 % Immature Granulocyte # (Auto) 0.02 K/uL (0.00-0.02) Basophilic Stippling OCCASIONAL Anisocytosis PRESENT Ovalocytes 1+ Anion Gap 10.0 mmol/L (3-11) Est Creatinine Clear Calc Drug Dose 21.0 ml/min Estimated GFR () 14.2 Estimated GFR (Non- 12.3 BUN/Creatinine Ratio 29.2 (10-20) Uric Acid 12.3 mg/dl (2.6-7.2) Calcium Level 6.9 mg/dl (8.5-10.1) Bedside Glucose 169 mg/dl (70-90) Assessment and Plan 57yo female with numerous medical problems including chronic hypoxic/ hypercarbic respiratory failure on home O2, uncontrolled T2DM, CKD stage 4, chronic LE wounds, and chronic right sided heart failure (cor pulmonale) presenting with ARF, acute/chronic cor pulmonale, and worsening LE wounds b/l but most severe on the right leg. 2/8 continue wound treatment and IV abx. Patient -1.4L out thus far. Nephro and ID following. Patient c/o right wrist pain today, xray unremarkable. Patient pain possibly 2/2 gout. Recommended treating with Prednisone, but the patient prefers to use a heating pad. Cannot use NSAIDS and Colchicine due to renal function. Patient is having wounds changed daily, but nursing remarks that she refuses cleaning of her sacrum. Patient continues to refuse heparin, sliding scale insulin and albumin infusion. Educated the patient on the indications for these treatments. Stage 3 decubitus sacral ulcer and numerous wounds of the LEs -Right achilles, right heel, and left ankle -- previous culture with MRSA and has been on daptomycin for 2+ months. -Recent culture from the right foot grew pseudomonas & klebsiella. Repeat cultures ordered but patient refused. -Continue imipenem and Daptomycin. ID following. -Patient refuses MRI and ultrasound to r/o osteomyelitis, tenosynovitis, etc. -Being seen by wound care; Aquacel Ag to the sacral wound with optifoam, and Aquacel with optifoam to all leg/foot wounds. -zinc, vit C, and MVI to help promote wound healing have been DCd per patient preference Severe LE edema -likely combination due to right sided heart failure -Patient refuses Dopplers of legs to rule out DVT Acute/chronic right sided heart failure and chronic diastolic CHF -Weight today is 120.9kg, weight in July of about 108-110kg. -She has significant ascites & LE edema. She reports noncompliance with both diet & fluid restriction. -Continue Bumex; albumin started per nephro -Hold metazolone. -Hold aldactone until Cr and K will allow. -BMP in am. -Strict I's and O's; fluid restrict to 1500cc/day. 2 gram salt restriction. Right Wrist Pain, possibly 2/2 to Gout -Xray unremarkable for fracture -Uric acid level pf 12 -declined prednisone and colchicine. heat pad and follow. Chronic hypoxic/hypercarbic respiratory failure - 2nd to COPD, ROHAN, cannot exclude obesity-hypoventilation syndrome. -Stable at this time, on 4L NC Acute renal failure - possibly due to cardio-renal syndrome. She could have an element of post-obstruction as well -- she reports her rodriguez was leaking recently -New rodriguez placed. -slight improvement in creatinine -monitor i/o's and BMP -Nephrology following ? cellulitis of lower abdominal wall -Continue abx chronic intertrigo - -Continue Diflucan daily. T2DM -uncontrolled - due to noncompliance with diet. -Per Dr. Giraldo: pt refuses insulin treatment and educated that Amaryl is not an ideal due to CKD. -Will monitor BMP on Amaryl Hypokalemia -Pt refused K supplementation Hyponatremia - likely 2nd to ARF - repeat BMP in am. Hypomagnesemia - due to metazolone/bumex usage. -Oral mag oxide replacement x 1 -Level has stabilized at 1.6-1.7 Anemia - chronic - 2nd to CKD; H/H acceptable today. COPD - stable, without exacerbation. ROHAN -BIPAP patient requests level 1 full code status DVT proph - Patient refusing heparin, education has been provided to patient regarding DVT prophylaxis Reviewed: Pt Seen/Exam by Me History continued right wrist pain. no other concerns. refuses to take prednisone or colchicine for the wrist pain Constitutional: denies: fever Respiratory: negative: short of breath Cardiovascular: denies chest pain General Appearance: no apparent distress Respiratory: lungs clear, no respiratory distress Cardiovascular: regular rate, rhythm Extremities: other (right wrist - unchanged exam) Neurologic/Psychiatric: alert, oriented x 3 Skin Characteristics: warm/dry Assessment/Plan Resident Physician Supervision Note: I independently interviewed and examined the patient and verified the danielson history and physical, reviewed labs and image studies, discussed the case with the resident Dr. Fallon and agree with the findings and care plan.
[2017-09-26 16:00] VITALS: O2SAT 97
[2017-09-26 16:43] VITALS: BP 123/66; PULSE 88; TEMP 37; O2SAT 95
[2017-09-26] MEDS: OXYCODONE HCL IR 5 MG TAB (IMMEDIATE RELEASE) PO PRN (19:14)
[2017-09-26] MEDS: ZOLPIDEM TARTRATE 5 MG TAB PO SCH (21:34)
[2017-09-26 23:36] VITALS: BP 147/67; PULSE 110; TEMP 37.1; O2SAT 92
[2017-09-27] VITALS: O2SAT 97
--- NOTE | 2017-09-27 04:35 | Infectious Disease Progress Nt ---
Progress Note Date of Service Sep 26, 2017. Subjective Pt evaluation today including: conversation w/ patient, physical exam, chart review, lab review, review of studies, conversation w/ databases software consultant, review of inpatient medication list Patient feeling somewhat better today. Leg swelling has improved. Pain now down to 1/10 in intensity. No fever. All Other Systems: Reviewed and Negative Medications Current Inpatient Medications Medications (Trade) Dose Ordered Sig/Bruno Route Start Time Stop Time Status Last Admin Dose Admin Heparin Sodium (Porcine) (Heparin Sq 5000 Unit/0.5ml) 5,000 unit Q12 SQ 09/19/17 21:00 10/19/17 20:59 Acetaminophen (Tylenol Tab) 650 mg Q4H PRN PO 09/19/17 15:45 10/19/17 15:44 Al Hydrox/Mg Hydrox/Simethicone (Maalox Max Susp) 15 ml Q4H PRN PO 09/19/17 15:45 10/19/17 15:44 Magnesium Hydroxide (Milk Of Magnesia Susp) 30 ml Q12H PRN PO 09/19/17 15:45 10/19/17 15:44 Ondansetron HCl (Zofran Inj) 4 mg Q6H PRN IV 09/19/17 15:45 10/19/17 15:44 Nitroglycerin (Nitrostat Tab) 0.4 mg UD PRN SL 09/19/17 15:45 10/19/17 15:44 Ergocalciferol (Vitamin D Cap) 50,000 interunit Fr@0900 PO 09/20/17 09:00 10/20/17 08:59 09/20/17 07:46 50,000 INTERUNIT Multi-Ingredient Ointment (Eucerin Unscented Cr) 1 appln BID EXT 09/19/17 21:00 10/19/17 20:59 Fluconazole (Diflucan Tab) 100 mg QAM PO 09/20/17 09:00 09/30/17 08:59 09/26/17 09:11 100 MG Glimepiride (Amaryl Tab) 2 mg QAM PO 09/20/17 09:00 10/20/17 08:59 09/26/17 09:10 2 MG Zolpidem Tartrate (Ambien Tab) 5 mg HS PO 09/19/17 21:00 10/19/17 20:59 Lactobacillus Acidophilus (Floranex Tab) 4 tab TIDM PO 09/19/17 18:00 10/19/17 17:59 09/23/17 08:40 4 TAB Hydromorphone HCl (Dilaudid Inj) 0.5 mg Q4H PRN IV 09/19/17 16:15 10/03/17 16:14 09/26/17 23:14 0.5 MG Imipenem/ Cilastatin Sodium (Consult) 1 ea UD PRN N/A 09/19/17 19:15 10/19/17 19:14 Bumetanide 2 mg/ Syringe 8 ml @ 4 mls/min BID@0900,1700 IV 09/20/17 09:00 10/20/17 08:59 09/26/17 09:27 4 MLS/MIN Imipenem/ Cilastatin Sodium 500 mg/Dextrose 110 ml @ 100 mls/hr Q12H IV 09/20/17 18:00 09/30/17 17:59 09/26/17 18:48 100 MLS/HR Oxycodone HCl (Roxicodone Immediate Rel Tab) 5 mg Q4H PRN PO 09/22/17 12:00 10/03/17 15:44 09/26/17 19:14 5 MG Heparin Sodium (Porcine) (Heparin 10 Unit/ ml 5 ml Flush) 5 ml PRN PRN FLUSH 09/22/17 18:45 10/22/17 18:44 09/26/17 09:28 5 ML Miconazole Nitrate (Desenex Powder) 1 appln PRN PRN EXT 09/24/17 10:45 10/24/17 10:44 Albumin Human (Albumin 25%) 12.5 gm BID IV 09/24/17 20:00 09/27/17 19:59 Menthol (Nice Marko) 1 marko PRN PRN MARKO 09/25/17 13:15 10/25/17 13:14 09/25/17 13:55 24 MARKO Prednisone (PredniSONE TAB) 40 mg DAILY PO 09/27/17 08:00 10/27/17 07:59 Prednisone (PredniSONE TAB) 40 mg TODAY@0931 ONCE PO 09/27/17 09:31 09/27/17 09:32 Objective Vital Signs Date Time Temp Pulse Resp B/P (MAP) Pulse Ox O2 Delivery O2 Flow Rate FiO2 09/27/17 00:00 97 Nasal Cannula 4.0 09/26/17 23:36 37.1 110 18 147/67 (93) 92 Nasal Cannula 4.0 09/26/17 16:43 37.0 88 20 123/66 (85) 95 Nasal Cannula 4.0 Humidified Oxygen 09/26/17 16:00 97 Nasal Cannula 4.0 09/26/17 08:00 97 Nasal Cannula 4.0 09/26/17 07:23 36.9 77 19 108/74 (85) 97 Nasal Cannula 4.0 Physical Exam General Appearance: WD/WN, no apparent distress, + obese Eyes: normal inspection, EOMI, sclerae normal ENT: normal ENT inspection, pharynx normal Neck: supple, no adenopathy, thyroid normal, trachea midline Respiratory/Chest: chest non-tender, lungs clear, normal breath sounds, no respiratory distress Cardiovascular: regular rate, rhythm, no gallop, no murmur Abdomen: normal bowel sounds, non tender, soft, no organomegaly Extremities: no calf tenderness, + inflammation, + swelling Neurologic/Psychiatric: alert, oriented x 3 Skin: normal color, no rash, + pertinent finding (Leg wounds appears slightly better) Lymphatic: no adenopathy Laboratory Results Last 24 Hours Test 09/26/17 05:23 09/26/17 07:55 09/26/17 11:46 09/26/17 17:10 White Blood Count 9.88 K/uL Red Blood Count 3.56 M/uL Hemoglobin 9.2 g/dL Hematocrit 29.1 % Mean Corpuscular Volume 81.7 fL Mean Corpuscular Hemoglobin 25.8 pg Mean Corpuscular Hemoglobin Concent 31.6 g/dl Platelet Count 152 K/uL Mean Platelet Volume 9.6 fL Neutrophils (%) (Auto) 83.7 % Lymphocytes (%) (Auto) 8.7 % Monocytes (%) (Auto) 6.5 % Eosinophils (%) (Auto) 0.8 % Basophils (%) (Auto) 0.1 % Neutrophils # (Auto) 8.27 K/uL Lymphocytes # (Auto) 0.86 K/uL Monocytes # (Auto) 0.64 K/uL Eosinophils # (Auto) 0.08 K/uL Basophils # (Auto) 0.01 K/uL RDW Standard Deviation 61.2 fL RDW Coefficient of Variation 20.4 % Immature Granulocyte % (Auto) 0.2 % Immature Granulocyte # (Auto) 0.02 K/uL Basophilic Stippling OCCASIONAL Anisocytosis PRESENT Ovalocytes 1+ Sodium Level 134 mmol/L Potassium Level 3.2 mmol/L Chloride Level 91 mmol/L Carbon Dioxide Level 33 mmol/L Anion Gap 10.0 mmol/L Blood Urea Nitrogen 111 mg/dl Creatinine 3.80 mg/dl Est Creatinine Clear Calc Drug Dose 21.0 ml/min Estimated GFR () 14.2 Estimated GFR (Non- 12.3 BUN/Creatinine Ratio 29.2 Random Glucose 157 mg/dl Uric Acid 12.3 mg/dl Calcium Level 6.9 mg/dl Bedside Glucose 161 mg/dl 169 mg/dl 221 mg/dl Assessment and Plan 57 yo poorly controlled diabetic female with heart failure with worsening edema/ fluid retention with worsening infection of leg ulcers and sacral decubitus but now improving with hospital care and change in IV antibiotics. Would continue patient on IV imipenem alone, daptomycin likely can be discontinued as has received very prolonged therapy.
[2017-09-27 06:15] LABS: BASO % 0.2 %; BASO ABS # 0.02 K/uL (0-0.2); EOS % 1.1 %; EOS ABS # 0.11 K/uL (0-0.5); HEMATOCRIT 30.3 % (37-47); HEMOGLOBIN 9.5 g/dL (12.0-16.0); IG# 0.03 K/uL (0.00-0.02); LYMPH % 9.1 %; LYMPH ABS # 0.88 K/uL (1.2-3.4); MEAN CELL VOLUME 81.7 fL (80-100); MEAN CORPUSCULAR HEMOGLOBIN 25.6 pg (25-34); MEAN CORPUSCULAR HGB CONC 31.4 g/dl (32-36); MEAN PLATELET VOLUME 9.9 fL (7.4-10.4); MONO % 6.5 %; MONO ABS # 0.63 K/uL (0.11-0.59); NEUT % 82.8 %; NEUT ABS # 8.02 K/uL (1.4-6.5); PLATELET COUNT 167 K/uL (130-400); RED CELL DISTRIBUTION WIDTH CV 20.2 % (11.5-14.5); RED CELL DISTRIBUTION WIDTH SD 61.5 fL (36.4-46.3); WHITE BLOOD COUNT 9.69 K/uL (4.8-10.8)
[2017-09-27 06:41] LABS: CALCIUM 7.1 mg/dl (8.5-10.1); CREATININE 3.46 mg/dl (0.60-1.20)
[2017-09-27 08:00] VITALS: O2SAT 97
[2017-09-27] MEDS: EUCERIN CR 120 GM JAR EXT SCH ×2 (08:00→20:00)
[2017-09-27] MEDS: LACTOBACILLUS ACIDOPHILUS (FLORANEX) TAB PO SCH ×3 (08:00→17:00)
[2017-09-27] MEDS: GLIMEPIRIDE 2 MG TAB PO SCH (08:36)
[2017-09-27] MEDS: ERGOCALCIFEROL 50,000 INTER.UNIT CAP PO SCH (08:36)
[2017-09-27] MEDS: FLUCONAZOLE 100 MG TAB PO SCH (08:36)
[2017-09-27] MEDS: HEPARIN SOD 5000 UNIT/0.5 ML CARP SQ SCH ×2 (08:37→20:10)
[2017-09-27] MEDS: IMIPENEM/CILASTATIN IV 500 MG in DEXTROSE 5% 100ML 100 ML IV SCH ×2 (08:37→18:43)
[2017-09-27] MEDS: BUMETANIDE IV 2 MG in SYRINGE 0 ML IV SCH ×2 (08:38→17:24)
[2017-09-27] MEDS: HYDROmorphone INJ 0.5 MG/0.5 ML SYR IV PRN ×2 (09:11→23:46)
[2017-09-27] MEDS ORDERED: POTASSIUM CHLORIDE 20 MEQ TABCR PO STA ×2 (09:58→10:45)
--- NOTE | 2017-09-27 11:17 | Family Medicine Progress Note ---
Progress Note Date of Service Sep 27, 2017. Subjective Pt evaluation today including: conversation w/ patient, physical exam, chart review, lab review Patient denies any issues over night. Denies chest pain, SOB. Reports noncompliance with medication namely; K, heparin and albumin infusions. Medications Current Inpatient Medications Medications (Trade) Dose Ordered Sig/Bruno Route Start Time Stop Time Status Last Admin Dose Admin Heparin Sodium (Porcine) (Heparin Sq 5000 Unit/0.5ml) 5,000 unit Q12 SQ 09/19/17 21:00 10/19/17 20:59 Acetaminophen (Tylenol Tab) 650 mg Q4H PRN PO 09/19/17 15:45 10/19/17 15:44 Al Hydrox/Mg Hydrox/Simethicone (Maalox Max Susp) 15 ml Q4H PRN PO 09/19/17 15:45 10/19/17 15:44 Magnesium Hydroxide (Milk Of Magnesia Susp) 30 ml Q12H PRN PO 09/19/17 15:45 10/19/17 15:44 Ondansetron HCl (Zofran Inj) 4 mg Q6H PRN IV 09/19/17 15:45 10/19/17 15:44 Nitroglycerin (Nitrostat Tab) 0.4 mg UD PRN SL 09/19/17 15:45 10/19/17 15:44 Ergocalciferol (Vitamin D Cap) 50,000 interunit Fr@0900 PO 09/20/17 09:00 10/20/17 08:59 09/27/17 08:36 50,000 INTERUNIT Multi-Ingredient Ointment (Eucerin Unscented Cr) 1 appln BID EXT 09/19/17 21:00 10/19/17 20:59 Fluconazole (Diflucan Tab) 100 mg QAM PO 09/20/17 09:00 09/30/17 08:59 09/27/17 08:36 100 MG Glimepiride (Amaryl Tab) 2 mg QAM PO 09/20/17 09:00 10/20/17 08:59 09/27/17 08:36 2 MG Zolpidem Tartrate (Ambien Tab) 5 mg HS PO 09/19/17 21:00 10/19/17 20:59 Lactobacillus Acidophilus (Floranex Tab) 4 tab TIDM PO 09/19/17 18:00 10/19/17 17:59 09/23/17 08:40 4 TAB Hydromorphone HCl (Dilaudid Inj) 0.5 mg Q4H PRN IV 09/19/17 16:15 10/03/17 16:14 09/27/17 09:11 0.5 MG Imipenem/ Cilastatin Sodium (Consult) 1 ea UD PRN N/A 09/19/17 19:15 10/19/17 19:14 Bumetanide 2 mg/ Syringe 8 ml @ 4 mls/min BID@0900,1700 IV 09/20/17 09:00 10/20/17 08:59 09/27/17 08:38 4 MLS/MIN Imipenem/ Cilastatin Sodium 500 mg/Dextrose 110 ml @ 100 mls/hr Q12H IV 09/20/17 18:00 09/30/17 17:59 09/27/17 08:37 100 MLS/HR Oxycodone HCl (Roxicodone Immediate Rel Tab) 5 mg Q4H PRN PO 09/22/17 12:00 10/03/17 15:44 09/26/17 19:14 5 MG Heparin Sodium (Porcine) (Heparin 10 Unit/ ml 5 ml Flush) 5 ml PRN PRN FLUSH 09/22/17 18:45 10/22/17 18:44 09/27/17 05:26 5 ML Miconazole Nitrate (Desenex Powder) 1 appln PRN PRN EXT 09/24/17 10:45 10/24/17 10:44 Albumin Human (Albumin 25%) 12.5 gm BID IV 09/24/17 20:00 09/27/17 19:59 Menthol (Nice Umberto) 1 umberto PRN PRN UMBERTO 09/25/17 13:15 10/25/17 13:14 09/25/17 13:55 24 UMBERTO Prednisone (PredniSONE TAB) 40 mg DAILY PO 09/27/17 08:00 10/27/17 07:59 09/27/17 08:37 40 MG Objective Vital Signs Date Time Temp Pulse Resp B/P (MAP) Pulse Ox O2 Delivery O2 Flow Rate FiO2 09/27/17 08:00 97 Nasal Cannula 4.0 09/27/17 00:00 97 Nasal Cannula 4.0 09/26/17 23:36 37.1 110 18 147/67 (93) 92 Nasal Cannula 4.0 09/26/17 16:43 37.0 88 20 123/66 (85) 95 Nasal Cannula 4.0 Humidified Oxygen 09/26/17 16:00 97 Nasal Cannula 4.0 Physical Exam General Appearance: WD/WN, + obese Respiratory/Chest: chest non-tender, lungs clear, normal breath sounds, no respiratory distress, no accessory muscle use Cardiovascular: regular rate, rhythm, no edema, no murmur Abdomen: normal bowel sounds, non tender, soft, no organomegaly, + distended Extremities: + pertinent finding (clean, dry, intact dressing on bilateral lower extr. ) Neurologic/Psychiatric: alert, normal mood/affect, oriented x 3 Laboratory Results 09/27/17 05:25 Red Blood Count 3.71, Mean Corpuscular Volume 81.7, Mean Corpuscular Hemoglobin 25.6, Mean Corpuscular Hemoglobin Concent 31.4, Mean Platelet Volume 9.9, Neutrophils (%) (Auto) 82.8, Lymphocytes (%) (Auto) 9.1, Monocytes (%) (Auto) 6.5, Eosinophils (%) (Auto) 1.1, Basophils (%) (Auto) 0.2, Neutrophils # (Auto) 8.02, Lymphocytes # (Auto) 0.88, Monocytes # (Auto) 0.63, Eosinophils # (Auto) 0.11, Basophils # (Auto) 0.02 09/27/17 05:25 Test 09/27/17 05:25 09/27/17 08:08 White Blood Count 9.69 K/uL (4.8-10.8) Red Blood Count 3.71 M/uL (4.2-5.4) Hemoglobin 9.5 g/dL (12.0-16.0) Hematocrit 30.3 % (37-47) Mean Corpuscular Volume 81.7 fL (80-100) Mean Corpuscular Hemoglobin 25.6 pg (25-34) Mean Corpuscular Hemoglobin Concent 31.4 g/dl (32-36) Platelet Count 167 K/uL (130-400) Mean Platelet Volume 9.9 fL (7.4-10.4) Neutrophils (%) (Auto) 82.8 % Lymphocytes (%) (Auto) 9.1 % Monocytes (%) (Auto) 6.5 % Eosinophils (%) (Auto) 1.1 % Basophils (%) (Auto) 0.2 % Neutrophils # (Auto) 8.02 K/uL (1.4-6.5) Lymphocytes # (Auto) 0.88 K/uL (1.2-3.4) Monocytes # (Auto) 0.63 K/uL (0.11-0.59) Eosinophils # (Auto) 0.11 K/uL (0-0.5) Basophils # (Auto) 0.02 K/uL (0-0.2) RDW Standard Deviation 61.5 fL (36.4-46.3) RDW Coefficient of Variation 20.2 % (11.5-14.5) Immature Granulocyte % (Auto) 0.3 % Immature Granulocyte # (Auto) 0.03 K/uL (0.00-0.02) Large Platelets 1+ Ovalocytes 1+ Anion Gap 8.0 mmol/L (3-11) Est Creatinine Clear Calc Drug Dose 22.2 ml/min Estimated GFR () 15.9 Estimated GFR (Non- 13.7 BUN/Creatinine Ratio 32.4 (10-20) Calcium Level 7.1 mg/dl (8.5-10.1) Bedside Glucose 103 mg/dl (70-90) Assessment and Plan 57yo female with numerous medical problems including chronic hypoxic/ hypercarbic respiratory failure on home O2, uncontrolled T2DM, CKD stage 4, chronic LE wounds, and chronic right sided heart failure (cor pulmonale) presenting with ARF, acute/chronic cor pulmonale, and worsening LE wounds b/l but most severe on the right leg. 09/27 continue wound treatment and IV abx. Patient -1.7L out and 8kg weight loss thus far. Nephro and ID following. Patient c/o right wrist pain, xray unremarkable. Patient pain possibly 2/2 gout in the setting of diuresis. Patient agrees to Prednisone treatment.Cannot use NSAIDS and Colchicine due to renal function. Patient is having wounds changed daily, but nursing remarks that she refuses cleaning of her sacrum. Patient continues to refuse heparin, sliding scale insulin and albumin infusion. Continue to educate patient on indications for these medication. Patient has also been refusing K supplementation. K level is 3.0 today. Patient agrees to only taking 20mg of K. Stage 3 decubitus sacral ulcer and numerous wounds of the LEs -Right achilles, right heel, and left ankle -- previous culture with MRSA and has been on daptomycin for 2+ months. -Recent culture from the right foot grew pseudomonas & klebsiella. Attempting cultures today. -Continue imipenem. ID following. -Patient refuses MRI and ultrasound to r/o osteomyelitis, tenosynovitis, etc. -Being seen by wound care; Aquacel Ag to the sacral wound with optifoam, and Aquacel with optifoam to all leg/foot wounds. -zinc, vit C, and MVI to help promote wound healing have been DCd per patient preference Severe LE edema -likely combination due to right sided heart failure -Patient refuses Dopplers of legs to rule out DVT Acute/chronic right sided heart failure and chronic diastolic CHF -Weight today is 120.9kg, weight in July of about 108-110kg. -She has significant ascites & LE edema. She reports noncompliance with both diet & fluid restriction. -Continue Bumex; albumin started per nephro. -Hold metazolone. -Hold aldactone until Cr and K will allow. -BMP in am. -Strict I's and O's; fluid restrict to 1500cc/day. 2 gram salt restriction. Right Wrist Pain, possibly 2/2 to Gout -Xray unremarkable for fracture -Uric acid level12 -Agrees to Prednisone tx today Chronic hypoxic/hypercarbic respiratory failure - 2nd to COPD, ROHAN, cannot exclude obesity-hypoventilation syndrome. -Stable at this time, on 4L NC Acute renal failure - possibly due to cardio-renal syndrome. She could have an element of post-obstruction as well -- she reports her rodriguez was leaking recently -New rodriguez placed. -slight improvement in creatinine -monitor i/o's and BMP -Nephrology following ? cellulitis of lower abdominal wall -Continue abx chronic intertrigo - -Continue Diflucan daily. T2DM -uncontrolled - due to noncompliance with diet. -Per Dr. Giraldo: pt refuses insulin treatment and educated that Amaryl is not an ideal due to CKD. -Will monitor BMP on Amaryl Hypokalemia -K supplementation (pt has been refusing despite education) Hyponatremia - likely 2nd to ARF - repeat BMP in am. Hypomagnesemia - due to metazolone/bumex usage. -Oral mag oxide replacement x 1 -Level has stabilized at 1.6-1.7 Anemia - chronic - 2nd to CKD; H/H acceptable today. COPD - stable, without exacerbation. ROHAN -BIPAP patient requests level 1 full code status DVT proph - Patient refusing heparin, education has been provided to patient regarding DVT prophylaxis Reviewed: Pt Seen/Exam by Me History right wrist pain still present but better Constitutional: denies: fever Respiratory: negative: short of breath Cardiovascular: denies chest pain General Appearance: no apparent distress Respiratory: lungs clear, no respiratory distress Cardiovascular: regular rate, rhythm Extremities: other (both lower legs in dressing. Right wrist - pain with ROM. No swelling or redness) Neurologic/Psychiatric: alert, oriented x 3 Assessment/Plan Resident Physician Supervision Note: I independently interviewed and examined the patient and verified the danielson history and physical, reviewed labs and image studies, discussed the case with the resident Dr. Fallon and agree with the findings and care plan.
[2017-09-27] MEDS ORDERED: LORAZEPAM INJ 0.5 MG in SYRINGE 0.25 ML IV ONE (12:15)
[2017-09-27] MEDS: ALBUMIN HUMAN 25% 12.5 GM/50 ML VIAL IV SCH (13:36)
--- NOTE | 2017-09-27 15:09 | Infectious Disease Progress Nt ---
Progress Note Date of Service Sep 27, 2017. Subjective Pt evaluation today including: conversation w/ patient, physical exam, chart review, lab review, review of studies, conversation w/ independent marketing consultant, review of inpatient medication list Offers no new complaints today. Remains afebrile. Swelling continues to improve. Tolerating imipenem without apparent difficulty. All Other Systems: Reviewed and Negative Medications Current Inpatient Medications Medications (Trade) Dose Ordered Sig/Bruno Route Start Time Stop Time Status Last Admin Dose Admin Heparin Sodium (Porcine) (Heparin Sq 5000 Unit/0.5ml) 5,000 unit Q12 SQ 09/19/17 21:00 10/19/17 20:59 Acetaminophen (Tylenol Tab) 650 mg Q4H PRN PO 09/19/17 15:45 10/19/17 15:44 Al Hydrox/Mg Hydrox/Simethicone (Maalox Max Susp) 15 ml Q4H PRN PO 09/19/17 15:45 10/19/17 15:44 Magnesium Hydroxide (Milk Of Magnesia Susp) 30 ml Q12H PRN PO 09/19/17 15:45 10/19/17 15:44 Ondansetron HCl (Zofran Inj) 4 mg Q6H PRN IV 09/19/17 15:45 10/19/17 15:44 Nitroglycerin (Nitrostat Tab) 0.4 mg UD PRN SL 09/19/17 15:45 10/19/17 15:44 Ergocalciferol (Vitamin D Cap) 50,000 interunit Fr@0900 PO 09/20/17 09:00 10/20/17 08:59 09/27/17 08:36 50,000 INTERUNIT Multi-Ingredient Ointment (Eucerin Unscented Cr) 1 appln BID EXT 09/19/17 21:00 10/19/17 20:59 Fluconazole (Diflucan Tab) 100 mg QAM PO 09/20/17 09:00 09/30/17 08:59 09/27/17 08:36 100 MG Glimepiride (Amaryl Tab) 2 mg QAM PO 09/20/17 09:00 10/20/17 08:59 09/27/17 08:36 2 MG Zolpidem Tartrate (Ambien Tab) 5 mg HS PO 09/19/17 21:00 10/19/17 20:59 Lactobacillus Acidophilus (Floranex Tab) 4 tab TIDM PO 09/19/17 18:00 10/19/17 17:59 09/23/17 08:40 4 TAB Hydromorphone HCl (Dilaudid Inj) 0.5 mg Q4H PRN IV 09/19/17 16:15 10/03/17 16:14 09/27/17 09:11 0.5 MG Imipenem/ Cilastatin Sodium (Consult) 1 ea UD PRN N/A 09/19/17 19:15 10/19/17 19:14 Bumetanide 2 mg/ Syringe 8 ml @ 4 mls/min BID@0900,1700 IV 09/20/17 09:00 10/20/17 08:59 09/27/17 08:38 4 MLS/MIN Imipenem/ Cilastatin Sodium 500 mg/Dextrose 110 ml @ 100 mls/hr Q12H IV 09/20/17 18:00 09/30/17 17:59 09/27/17 08:37 100 MLS/HR Oxycodone HCl (Roxicodone Immediate Rel Tab) 5 mg Q4H PRN PO 09/22/17 12:00 10/03/17 15:44 09/26/17 19:14 5 MG Heparin Sodium (Porcine) (Heparin 10 Unit/ ml 5 ml Flush) 5 ml PRN PRN FLUSH 09/22/17 18:45 10/22/17 18:44 09/27/17 05:26 5 ML Miconazole Nitrate (Desenex Powder) 1 appln PRN PRN EXT 09/24/17 10:45 10/24/17 10:44 Albumin Human (Albumin 25%) 12.5 gm BID IV 09/24/17 20:00 09/27/17 19:59 09/27/17 13:36 12.5 GM Menthol (Nice Marko) 1 marko PRN PRN MARKO 09/25/17 13:15 10/25/17 13:14 09/25/17 13:55 24 MARKO Prednisone (PredniSONE TAB) 40 mg DAILY PO 09/27/17 08:00 10/27/17 07:59 09/27/17 08:37 40 MG Objective Vital Signs Date Time Temp Pulse Resp B/P (MAP) Pulse Ox O2 Delivery O2 Flow Rate FiO2 09/27/17 08:00 97 Nasal Cannula 4.0 09/27/17 00:00 97 Nasal Cannula 4.0 09/26/17 23:36 37.1 110 18 147/67 (93) 92 Nasal Cannula 4.0 09/26/17 16:43 37.0 88 20 123/66 (85) 95 Nasal Cannula 4.0 Humidified Oxygen 09/26/17 16:00 97 Nasal Cannula 4.0 Physical Exam General Appearance: WD/WN, no apparent distress, + obese Eyes: normal inspection, EOMI, sclerae normal ENT: normal ENT inspection, hearing grossly normal, pharynx normal Neck: supple, no adenopathy, thyroid normal, trachea midline Respiratory/Chest: chest non-tender, lungs clear, normal breath sounds, no respiratory distress Cardiovascular: regular rate, rhythm, no gallop, no murmur Abdomen: normal bowel sounds, non tender, soft, no organomegaly Extremities: no calf tenderness, + inflammation, + swelling Neurologic/Psychiatric: alert, oriented x 3 Skin: normal color, no rash, + pertinent finding (Lower extremity wounds stable ) Lymphatic: no adenopathy Laboratory Results Last 24 Hours Test 09/26/17 17:10 09/27/17 05:25 09/27/17 08:08 Bedside Glucose 221 mg/dl 103 mg/dl White Blood Count 9.69 K/uL Red Blood Count 3.71 M/uL Hemoglobin 9.5 g/dL Hematocrit 30.3 % Mean Corpuscular Volume 81.7 fL Mean Corpuscular Hemoglobin 25.6 pg Mean Corpuscular Hemoglobin Concent 31.4 g/dl Platelet Count 167 K/uL Mean Platelet Volume 9.9 fL Neutrophils (%) (Auto) 82.8 % Lymphocytes (%) (Auto) 9.1 % Monocytes (%) (Auto) 6.5 % Eosinophils (%) (Auto) 1.1 % Basophils (%) (Auto) 0.2 % Neutrophils # (Auto) 8.02 K/uL Lymphocytes # (Auto) 0.88 K/uL Monocytes # (Auto) 0.63 K/uL Eosinophils # (Auto) 0.11 K/uL Basophils # (Auto) 0.02 K/uL RDW Standard Deviation 61.5 fL RDW Coefficient of Variation 20.2 % Immature Granulocyte % (Auto) 0.3 % Immature Granulocyte # (Auto) 0.03 K/uL Large Platelets 1+ Ovalocytes 1+ Sodium Level 133 mmol/L Potassium Level 3.0 mmol/L Chloride Level 92 mmol/L Carbon Dioxide Level 33 mmol/L Anion Gap 8.0 mmol/L Blood Urea Nitrogen 112 mg/dl Creatinine 3.46 mg/dl Est Creatinine Clear Calc Drug Dose 22.2 ml/min Estimated GFR () 15.9 Estimated GFR (Non- 13.7 BUN/Creatinine Ratio 32.4 Random Glucose 136 mg/dl Calcium Level 7.1 mg/dl Assessment and Plan 57 yo poorly controlled diabetic female with heart failure with worsening edema/ fluid retention with worsening infection of leg ulcers and sacral decubitus but now improving with hospital care and change in IV antibiotics. Would continue patient on IV imipenem alone, daptomycin discontinued as has received very prolonged therapy.
[2017-09-27 15:17] VITALS: BP 117/66; PULSE 100; TEMP 37; O2SAT 94
[2017-09-27] MEDS: OXYCODONE HCL IR 5 MG TAB (IMMEDIATE RELEASE) PO PRN (20:17)
[2017-09-27] MEDS ORDERED: INSULIN GLARGINE SOLOSTAR 100 UNITS/ML 3 ML PEN SC ONE (21:15)
[2017-09-27] MEDS ORDERED: GLUCOSE 40% GEL 15 GM TUBE PO PRN (21:45)
[2017-09-27] MEDS ORDERED: DEXTROSE 50% 50 ML SYR IV PRN (21:45)
[2017-09-27] MEDS ORDERED: GLUCOSE 10 TABS/TUBE PO PRN (21:45)
[2017-09-27] MEDS ORDERED: GLUCAGON FOR INJ 1 MG VIAL SQ PRN (21:45)
[2017-09-27] MEDS: ZOLPIDEM TARTRATE 5 MG TAB PO SCH (21:47)
[2017-09-27] MEDS: INSULIN ASPART 100 UNITS/ML 3 ML PEN SC SCH (22:22)
[2017-09-28] VITALS: BP 108/71; PULSE 97; TEMP 36.7; O2SAT 95
[2017-09-28] MEDS: IMIPENEM/CILASTATIN IV 500 MG in DEXTROSE 5% 100ML 100 ML IV SCH ×2 (06:21→17:27)
[2017-09-28 06:26] LABS: HEMATOCRIT 30.6 % (37-47); HEMOGLOBIN 9.4 g/dL (12.0-16.0); MEAN CELL VOLUME 82.5 fL (80-100); MEAN CORPUSCULAR HEMOGLOBIN 25.3 pg (25-34); MEAN CORPUSCULAR HGB CONC 30.7 g/dl (32-36); PLATELET COUNT 169 K/uL (130-400); RED CELL DISTRIBUTION WIDTH SD 60.9 fL (36.4-46.3); WHITE BLOOD COUNT 7.27 K/uL (4.8-10.8)
[2017-09-28 07:09] LABS: CREATININE 2.94 mg/dl (0.60-1.20); POTASSIUM 2.9 mmol/L (3.5-5.1)
[2017-09-28 08:00] VITALS: O2SAT 96
[2017-09-28] MEDS: LACTOBACILLUS ACIDOPHILUS (FLORANEX) TAB PO SCH (08:00)
[2017-09-28 08:11] VITALS: BP 113/61; PULSE 87; TEMP 36.8; O2SAT 96
[2017-09-28] MEDS: HEPARIN SOD 5000 UNIT/0.5 ML CARP SQ SCH ×2 (09:00→19:44)
[2017-09-28] MEDS: FLUCONAZOLE 100 MG TAB PO SCH (09:20)
[2017-09-28] MEDS: GLIMEPIRIDE 2 MG TAB PO SCH (09:20)
[2017-09-28] MEDS: INSULIN ASPART 100 UNITS/ML 3 ML PEN SC SCH ×4 (09:30→21:49)
[2017-09-28] MEDS: BUMETANIDE IV 2 MG in SYRINGE 0 ML IV SCH ×2 (09:31→17:27)
[2017-09-28] MEDS: EUCERIN CR 120 GM JAR EXT SCH ×2 (09:31→19:44)
[2017-09-28] MEDS ORDERED: POTASSIUM CHLR 10 MEQ / WTR 10 MEQ in PREMIXED WATER 100 ML IV ONE ×2 (12:15→13:15)
[2017-09-28] MEDS: HYDROmorphone INJ 0.5 MG/0.5 ML SYR IV PRN ×2 (13:14→22:13)
[2017-09-28 15:31] VITALS: BP 136/71; PULSE 81; TEMP 36.8; O2SAT 96
--- NOTE | 2017-09-28 16:11 | Family Medicine Progress Note ---
Progress Note Date of Service Sep 28, 2017. Subjective Pt evaluation today including: conversation w/ patient, physical exam, chart review, lab review, review of inpatient medication list Pain: Right hand pain reported PO Intake: Tolerating PO intake Voiding: rodriguez catheter in place Ms. Watkins reports she has no new complaints today. She denies chest pain , shortness of breath, n/v, abdominal pain. She states her right hand pain remains and she has been trying to flex her fingers and move her hand as much as she can. Constitutional: No fever, No chills Respiratory: + cough, No sputum Cardiovascular: No chest pain Abdomen: No pain, No nausea, No vomiting All Other Systems: Reviewed and Negative Medications Current Inpatient Medications Medications (Trade) Dose Ordered Sig/Bruno Route Start Time Stop Time Status Last Admin Dose Admin Heparin Sodium (Porcine) (Heparin Sq 5000 Unit/0.5ml) 5,000 unit Q12 SQ 09/19/17 21:00 10/19/17 20:59 Acetaminophen (Tylenol Tab) 650 mg Q4H PRN PO 09/19/17 15:45 10/19/17 15:44 Al Hydrox/Mg Hydrox/Simethicone (Maalox Max Susp) 15 ml Q4H PRN PO 09/19/17 15:45 10/19/17 15:44 Magnesium Hydroxide (Milk Of Magnesia Susp) 30 ml Q12H PRN PO 09/19/17 15:45 10/19/17 15:44 Ondansetron HCl (Zofran Inj) 4 mg Q6H PRN IV 09/19/17 15:45 10/19/17 15:44 Nitroglycerin (Nitrostat Tab) 0.4 mg UD PRN SL 09/19/17 15:45 10/19/17 15:44 Ergocalciferol (Vitamin D Cap) 50,000 interunit Fr@0900 PO 09/20/17 09:00 10/20/17 08:59 09/27/17 08:36 50,000 INTERUNIT Multi-Ingredient Ointment (Eucerin Unscented Cr) 1 appln BID EXT 09/19/17 21:00 10/19/17 20:59 09/28/17 09:31 1 APPLN Fluconazole (Diflucan Tab) 100 mg QAM PO 09/20/17 09:00 09/30/17 08:59 09/28/17 09:20 100 MG Glimepiride (Amaryl Tab) 2 mg QAM PO 09/20/17 09:00 10/20/17 08:59 09/28/17 09:20 2 MG Zolpidem Tartrate (Ambien Tab) 5 mg HS PO 09/19/17 21:00 10/19/17 20:59 Hydromorphone HCl (Dilaudid Inj) 0.5 mg Q4H PRN IV 09/19/17 16:15 10/03/17 16:14 09/28/17 13:14 0.5 MG Imipenem/ Cilastatin Sodium (Consult) 1 ea UD PRN N/A 09/19/17 19:15 10/19/17 19:14 Bumetanide 2 mg/ Syringe 8 ml @ 4 mls/min BID@0900,1700 IV 09/20/17 09:00 10/20/17 08:59 09/28/17 09:31 4 MLS/MIN Imipenem/ Cilastatin Sodium 500 mg/Dextrose 110 ml @ 100 mls/hr Q12H IV 09/20/17 18:00 09/30/17 17:59 09/28/17 06:21 100 MLS/HR Oxycodone HCl (Roxicodone Immediate Rel Tab) 5 mg Q4H PRN PO 09/22/17 12:00 10/03/17 15:44 09/27/17 20:17 5 MG Heparin Sodium (Porcine) (Heparin 10 Unit/ ml 5 ml Flush) 5 ml PRN PRN FLUSH 09/22/17 18:45 10/22/17 18:44 09/28/17 09:32 5 ML Miconazole Nitrate (Desenex Powder) 1 appln PRN PRN EXT 09/24/17 10:45 10/24/17 10:44 Menthol (Nice Umberto) 1 umberto PRN PRN UMBERTO 09/25/17 13:15 10/25/17 13:14 09/25/17 13:55 24 UMBERTO Prednisone (PredniSONE TAB) 40 mg DAILY PO 09/27/17 08:00 10/27/17 07:59 09/28/17 09:18 40 MG Insulin Aspart (novoLOG ASPART) SLIDING SCALE G... ACHS SC 09/27/17 22:00 10/27/17 21:59 09/28/17 09:30 6 UNITS Glucose (Glucose 40% Gel) 15-30 GRAMS 15 GRAMS... UD PRN PO 09/27/17 21:45 10/27/17 21:44 Glucose (Glucose Chew Tab) 4-8 Tablets 4 Tabl... UD PRN PO 09/27/17 21:45 10/27/17 21:44 Dextrose (Dextrose 50% 50ML Syringe) 25-50ML OF 50% DW IV FOR... UD PRN IV 09/27/17 21:45 10/27/17 21:44 Glucagon (Glucagon Inj) 1 mg UD PRN SQ 09/27/17 21:45 10/27/17 21:44 Objective Vital Signs Date Time Temp Pulse Resp B/P (MAP) Pulse Ox O2 Delivery O2 Flow Rate FiO2 09/28/17 15:31 36.8 81 20 136/71 (92) 96 Nasal Cannula 4.0 09/28/17 08:11 36.8 87 20 113/61 (78) 96 Nasal Cannula 4.0 09/28/17 08:00 96 Nasal Cannula 4.0 Humidified Oxygen 09/28/17 00:00 36.7 97 20 108/71 (83) 95 Nasal Cannula 4.0 09/28/17 00:00 Nasal Cannula 4.0 09/27/17 16:44 Nasal Cannula 4.0 Physical Exam General Appearance: WD/WN, no apparent distress, + obese Respiratory/Chest: normal breath sounds, no respiratory distress, no accessory muscle use, + decreased breath sounds Cardiovascular: regular rate, rhythm, no gallop, no murmur Abdomen: soft, + distended Extremities: + swelling (right hand diffusely swollen w/decreased ROM in fingers), + pertinent finding (clean, dry, intact dressing on right lower extremity) Laboratory Results Last 24 Hours Test 09/27/17 16:40 09/27/17 20:42 09/27/17 21:58 09/28/17 00:45 Bedside Glucose 335 mg/dl 444 mg/dl 483 mg/dl 349 mg/dl Test 09/28/17 05:26 09/28/17 08:01 09/28/17 12:15 White Blood Count 7.27 K/uL Red Blood Count 3.71 M/uL Hemoglobin 9.4 g/dL Hematocrit 30.6 % Mean Corpuscular Volume 82.5 fL Mean Corpuscular Hemoglobin 25.3 pg Mean Corpuscular Hemoglobin Concent 30.7 g/dl RDW Standard Deviation 60.9 fL RDW Coefficient of Variation 20.0 % Platelet Count 169 K/uL Mean Platelet Volume 10.0 fL Sodium Level 135 mmol/L Potassium Level 2.9 mmol/L Chloride Level 90 mmol/L Carbon Dioxide Level 34 mmol/L Anion Gap 11.0 mmol/L Blood Urea Nitrogen 110 mg/dl Creatinine 2.94 mg/dl Est Creatinine Clear Calc Drug Dose 26.2 ml/min Estimated GFR () 19.4 Estimated GFR (Non- 16.7 BUN/Creatinine Ratio 37.4 Random Glucose 243 mg/dl Calcium Level 7.0 mg/dl Bedside Glucose 259 mg/dl 190 mg/dl Assessment and Plan Ms. Watkins is a 57 year old female with numerous medical problems including chronic hypoxic/hypercarbic respiratory failure on home O2, uncontrolled T2DM, CKD stage 4, chronic LE wounds, and chronic right sided heart failure (cor pulmonale) presenting with ARF, acute/chronic cor pulmonale, and worsening LE wounds b/l but most severe on the right leg. Stage 3 decubitus sacral ulcer and numerous wounds of the LEs - Right Achilles, right heel, and left ankle -- previous culture with MRSA and has been on daptomycin for 2+ months. - Cultures from right leg grew gram negative bacilli and gram positive cocci. Will await sensitivities. - Continue imipenem. ID following. - Patient refuses MRI and ultrasound to r/o osteomyelitis, tenosynovitis, etc. - Being seen by wound care; Aquacel Ag to the sacral wound with optifoam, and Aquacel with optifoam to all leg/foot wounds. - zinc, vit C, and MVI to help promote wound healing have been DCd per patient preference Severe LE edema -likely combination due to right sided heart failure -Patient refuses Dopplers of legs to rule out DVT Acute/chronic right sided heart failure and chronic diastolic CHF - Most recent weight was 112, but bed scale broken and unable to obtain weight today. Decreased significantly from admission weight of 120.9kg. - She has significant ascites & LE edema. She reports noncompliance with both diet & fluid restriction. - Continue Bumex - can increase to 3mg bid next week. - Hold metazolone. - Hold aldactone until Cr and K will allow. . - Strict I's and O's; fluid restrict to 1500cc/day. 2 gram salt restriction. Right Wrist Pain, possibly 2/2 to Gout - Xray unremarkable for fracture - Uric acid level 12 - continue 40mg of prednisone daily Chronic hypoxic/hypercarbic respiratory failure - 2nd to COPD, ROHAN, cannot exclude obesity-hypoventilation syndrome. - Stable at this time, on 4L NC (usually on 3L at home) Acute renal failure - possibly due to cardio-renal syndrome. - rodriguez catheter remains in place - Creatinine continuing to improve day by day - improved from 3.46 yesterday to 2.94, continue to monitor - monitor i/o's and BMP - Nephrology following ? cellulitis of lower abdominal wall -Continue abx Chronic intertrigo - -Continue Diflucan daily. T2DM - uncontrolled - due to noncompliance with diet. - Per Dr. Giraldo: pt refuses insulin treatment and educated that Amaryl is not an ideal due to CKD. - Will monitor BMP on Amaryl - she sometimes allows for SS insulin injections - glucose levels today have been between 190-349 Hypokalemia - potassium today 2.9 - 20 mEq given IV - will recheck tomorrow Hyponatremia - Na 135 today, will continue to monitor Hypomagnesemia - due to metazolone/bumex usage. - Oral mag oxide replacement x 1 - Level has stabilized at 1.6-1.7 Anemia - chronic - 2nd to CKD - hemoglobin stable at 9.4 COPD - stable, without exacerbation. ROHAN -BIPAP Code: patient requests level 1 full code status DVT proph - Patient refusing heparin, education has been provided to patient regarding DVT prophylaxis Disposition: remains on med/surg Resident Tracking Resident Involvement: Resident Care Provided Care Provided: Adult Hospital Medicine Reviewed: Pt Seen/Exam by Me History right wrist still painful but able to move a little bit has been declining heparin injection for DVT proph - just doesn't want it Constitutional: denies: fever Respiratory: negative: short of breath Cardiovascular: denies chest pain General Appearance: no apparent distress Respiratory: no respiratory distress Extremities: other (right wrist tender and ROM limited sec to pain) Neurologic/Psychiatric: alert, oriented x 3 Skin Characteristics: warm/dry Assessment/Plan Resident Physician Supervision Note: I independently interviewed and examined the patient and verified the danielson history and physical, reviewed labs and image studies, discussed the case with the resident Dr. Streeter and agree with the findings and care plan.
[2017-09-28] MEDS: ZOLPIDEM TARTRATE 5 MG TAB PO SCH (19:44)
[2017-09-28] MEDS ORDERED: BISACODYL 10 MG SUPP PR STA (21:21)
[2017-09-28 23:02] VITALS: BP 117/71; PULSE 96; TEMP 36.8; O2SAT 90
[2017-09-29] MEDS: OXYCODONE HCL IR 5 MG TAB (IMMEDIATE RELEASE) PO PRN ×3 (00:32→22:17)
[2017-09-29] MEDS: IMIPENEM/CILASTATIN IV 500 MG in DEXTROSE 5% 100ML 100 ML IV SCH ×2 (05:42→19:23)
[2017-09-29 08:00] VITALS: O2SAT 96
[2017-09-29 08:12] VITALS: BP 115/74; PULSE 102; TEMP 36.6; O2SAT 96
[2017-09-29 08:47] LABS: HEMATOCRIT 32.3 % (37-47); HEMOGLOBIN 10.1 g/dL (12.0-16.0); MEAN CELL VOLUME 83.2 fL (80-100); MEAN CORPUSCULAR HGB CONC 31.3 g/dl (32-36); PLATELET COUNT 180 K/uL (130-400); RED CELL DISTRIBUTION WIDTH CV 19.7 % (11.5-14.5); RED CELL DISTRIBUTION WIDTH SD 59.9 fL (36.4-46.3); WHITE BLOOD COUNT 8.95 K/uL (4.8-10.8)
[2017-09-29] MEDS: HEPARIN SOD 5000 UNIT/0.5 ML CARP SQ SCH ×2 (09:00→19:29)
[2017-09-29] MEDS: INSULIN ASPART 100 UNITS/ML 3 ML PEN SC SCH ×4 (09:03→23:16)
[2017-09-29 09:19] LABS: CALCIUM 7.2 mg/dl (8.5-10.1); CREATININE 2.57 mg/dl (0.60-1.20); POTASSIUM 2.9 mmol/L (3.5-5.1)
[2017-09-29] MEDS: FLUCONAZOLE 100 MG TAB PO SCH (09:38)
[2017-09-29] MEDS: GLIMEPIRIDE 2 MG TAB PO SCH (09:38)
[2017-09-29] MEDS: BUMETANIDE IV 2 MG in SYRINGE 0 ML IV SCH ×2 (09:39→18:04)
[2017-09-29] MEDS: EUCERIN CR 120 GM JAR EXT SCH ×3 (09:39→19:29)
--- NOTE | 2017-09-29 10:49 | Family Medicine Progress Note ---
Progress Note Date of Service Sep 29, 2017. Subjective Pt evaluation today including: conversation w/ patient, physical exam, chart review, lab review, review of inpatient medication list Pain: Right hand pain reported PO Intake: Tolerating PO intake Voiding: rodriguez catheter in place Mr. Watkins reports no new complaints today. She states her right hand pain is improving and she has increased ROM compared to yesterday. She denies chest pain, n/v, SOB and states she had a BM yesterday. Constitutional: No fever, No chills, No sweats Respiratory: + cough, No wheezing, No shortness of breath Cardiovascular: No chest pain Abdomen: No pain, No nausea, No vomiting, No diarrhea Musculoskeletal: + problem reported (right hand pain and swelling) All Other Systems: Reviewed and Negative Medications Current Inpatient Medications Medications (Trade) Dose Ordered Sig/Bruno Route Start Time Stop Time Status Last Admin Dose Admin Heparin Sodium (Porcine) (Heparin Sq 5000 Unit/0.5ml) 5,000 unit Q12 SQ 09/19/17 21:00 10/19/17 20:59 Acetaminophen (Tylenol Tab) 650 mg Q4H PRN PO 09/19/17 15:45 10/19/17 15:44 Al Hydrox/Mg Hydrox/Simethicone (Maalox Max Susp) 15 ml Q4H PRN PO 09/19/17 15:45 10/19/17 15:44 Magnesium Hydroxide (Milk Of Magnesia Susp) 30 ml Q12H PRN PO 09/19/17 15:45 10/19/17 15:44 Ondansetron HCl (Zofran Inj) 4 mg Q6H PRN IV 09/19/17 15:45 10/19/17 15:44 Nitroglycerin (Nitrostat Tab) 0.4 mg UD PRN SL 09/19/17 15:45 10/19/17 15:44 Ergocalciferol (Vitamin D Cap) 50,000 interunit Fr@0900 PO 09/20/17 09:00 10/20/17 08:59 09/27/17 08:36 50,000 INTERUNIT Multi-Ingredient Ointment (Eucerin Unscented Cr) 1 appln BID EXT 09/19/17 21:00 10/19/17 20:59 09/29/17 09:39 1 APPLN Fluconazole (Diflucan Tab) 100 mg QAM PO 09/20/17 09:00 09/30/17 08:59 09/29/17 09:38 100 MG Glimepiride (Amaryl Tab) 2 mg QAM PO 09/20/17 09:00 10/20/17 08:59 09/29/17 09:38 2 MG Zolpidem Tartrate (Ambien Tab) 5 mg HS PO 09/19/17 21:00 10/19/17 20:59 Hydromorphone HCl (Dilaudid Inj) 0.5 mg Q4H PRN IV 09/19/17 16:15 10/03/17 16:14 09/28/17 22:13 0.5 MG Imipenem/ Cilastatin Sodium (Consult) 1 ea UD PRN N/A 09/19/17 19:15 10/19/17 19:14 Bumetanide 2 mg/ Syringe 8 ml @ 4 mls/min BID@0900,1700 IV 09/20/17 09:00 10/20/17 08:59 09/29/17 09:39 4 MLS/MIN Imipenem/ Cilastatin Sodium 500 mg/Dextrose 110 ml @ 100 mls/hr Q12H IV 09/20/17 18:00 09/30/17 17:59 09/29/17 05:42 100 MLS/HR Oxycodone HCl (Roxicodone Immediate Rel Tab) 5 mg Q4H PRN PO 09/22/17 12:00 10/03/17 15:44 09/29/17 00:32 5 MG Heparin Sodium (Porcine) (Heparin 10 Unit/ ml 5 ml Flush) 5 ml PRN PRN FLUSH 09/22/17 18:45 10/22/17 18:44 09/29/17 08:19 5 ML Miconazole Nitrate (Desenex Powder) 1 appln PRN PRN EXT 09/24/17 10:45 10/24/17 10:44 Menthol (Nice Umberto) 1 umberto PRN PRN UMBERTO 09/25/17 13:15 10/25/17 13:14 09/25/17 13:55 24 UMBERTO Prednisone (PredniSONE TAB) 40 mg DAILY PO 09/27/17 08:00 10/27/17 07:59 09/29/17 09:38 40 MG Insulin Aspart (novoLOG ASPART) SLIDING SCALE G... ACHS SC 09/27/17 22:00 10/27/17 21:59 09/29/17 09:03 4 UNITS Glucose (Glucose 40% Gel) 15-30 GRAMS 15 GRAMS... UD PRN PO 09/27/17 21:45 10/27/17 21:44 Glucose (Glucose Chew Tab) 4-8 Tablets 4 Tabl... UD PRN PO 09/27/17 21:45 10/27/17 21:44 Dextrose (Dextrose 50% 50ML Syringe) 25-50ML OF 50% DW IV FOR... UD PRN IV 09/27/17 21:45 10/27/17 21:44 Glucagon (Glucagon Inj) 1 mg UD PRN SQ 09/27/17 21:45 10/27/17 21:44 Objective Vital Signs Date Time Temp Pulse Resp B/P (MAP) Pulse Ox O2 Delivery O2 Flow Rate FiO2 09/29/17 08:12 36.6 102 20 115/74 (88) 96 Nasal Cannula 4.0 09/29/17 00:00 Nasal Cannula 4.0 09/28/17 23:02 36.8 96 18 117/71 (86) 90 Nasal Cannula 4.0 09/28/17 16:00 Nasal Cannula 4.0 09/28/17 15:31 36.8 81 20 136/71 (92) 96 Nasal Cannula 4.0 Physical Exam General Appearance: WD/WN, no apparent distress Respiratory/Chest: lungs clear, + decreased breath sounds Cardiovascular: regular rate, rhythm, no gallop, no murmur Abdomen: non tender, soft Extremities: + pertinent finding (right leg dressing c/d/i) Laboratory Results Last 24 Hours Test 09/28/17 12:15 09/28/17 16:30 09/28/17 20:04 09/29/17 07:59 Bedside Glucose 190 mg/dl 273 mg/dl 375 mg/dl 290 mg/dl Test 09/29/17 08:18 White Blood Count 8.95 K/uL Red Blood Count 3.88 M/uL Hemoglobin 10.1 g/dL Hematocrit 32.3 % Mean Corpuscular Volume 83.2 fL Mean Corpuscular Hemoglobin 26.0 pg Mean Corpuscular Hemoglobin Concent 31.3 g/dl RDW Standard Deviation 59.9 fL RDW Coefficient of Variation 19.7 % Platelet Count 180 K/uL Mean Platelet Volume 10.0 fL Sodium Level 140 mmol/L Potassium Level 2.9 mmol/L Chloride Level 92 mmol/L Carbon Dioxide Level 36 mmol/L Anion Gap 12.0 mmol/L Blood Urea Nitrogen 114 mg/dl Creatinine 2.57 mg/dl Est Creatinine Clear Calc Drug Dose 29.9 ml/min Estimated GFR () 22.8 Estimated GFR (Non- 19.7 BUN/Creatinine Ratio 44.2 Random Glucose 259 mg/dl Calcium Level 7.2 mg/dl Assessment and Plan Ms. Watkins is a 57 year old female with numerous medical problems including chronic hypoxic/hypercarbic respiratory failure on home O2, uncontrolled T2DM, CKD stage 4, chronic LE wounds, and chronic right sided heart failure (cor pulmonale) presenting with ARF, acute/chronic cor pulmonale, and worsening LE wounds b/l but most severe on the right leg. Stage 3 decubitus sacral ulcer and numerous wounds of the LEs - Right Achilles, right heel, and left ankle -- previous culture with MRSA and has been on daptomycin for 2+ months. - Cultures from right leg grew gram negative bacilli and gram positive cocci. Will await sensitivities. - Continue imipenem. ID following. - Patient refuses MRI and ultrasound to r/o osteomyelitis, tenosynovitis, etc. - Being seen by wound care; Aquacel Ag to the sacral wound with optifoam, and Aquacel with optifoam to all leg/foot wounds. - zinc, vit C, and MVI to help promote wound healing have been DCd per patient preference Severe LE edema -likely combination due to right sided heart failure -Patient refuses Dopplers of legs to rule out DVT Acute/chronic right sided heart failure and chronic diastolic CHF - Most recent weight was 112kg, but bed scale broken and unable to obtain weight over last couple of days. Decreased significantly from admission weight of 120.9kg. - She has significant ascites & LE edema. She reports noncompliance with both diet & fluid restriction. - Continue Bumex - can increase to 3mg bid next week. - Hold metazolone. - Hold aldactone until Cr and K will allow. . - Strict I's and O's; fluid restrict to 1500cc/day. 2 gram salt restriction. 09/29 - pt upset about DM2 and low salt diet - she understands the risks and wishes to be changed to a regular diet with 1500 ml fluid restriction Right Wrist Pain, possibly 2/2 to Gout - Xray unremarkable for fracture - Uric acid level 12 - improving clinically - decrease prednisone from 40mg daily to 30mg daily Chronic hypoxic/hypercarbic respiratory failure - secondary to COPD, ROHAN, cannot exclude obesity-hypoventilation syndrome. - Stable at this time, on 4L NC (usually on 3L at home) Acute renal failure - possibly due to cardio-renal syndrome. - rodriguez catheter remains in place - Creatinine continuing to improve day by day - improved from 2.94 yesterday to 2.57, continue to monitor - monitor i/o's and BMP - Nephrology following ? cellulitis of lower abdominal wall -Continue abx Chronic intertrigo - -Continue Diflucan daily. T2DM - uncontrolled - due to noncompliance with diet. - Per Dr. Giraldo: pt refuses insulin treatment and educated that Amaryl is not an ideal due to CKD. - Will monitor BMP on Amaryl - she sometimes allows for SS insulin injections - glucose levels today have been between 259-290 Hypokalemia - potassium remains 2.9 after 20 mEq given IV yesterday - 60 mEq IV ordered for today and supplement magnesium w/400mg of Magnesium oxide daily - will recheck tomorrow Hyponatremia - Na 135 today, will continue to monitor Hypomagnesemia - due to metazolone/bumex usage. - Oral mag oxide replacement x 1 - on 09/21, Mg was 1.6 - supplement 400mg daily of magnesium oxide and recheck in 24hrs Anemia - chronic - 2nd to CKD - hemoglobin stable at 10.1 COPD - stable, without exacerbation. ROHAN -BIPAP Code: patient requests level 1 full code status DVT proph - Patient refusing heparin, education has been provided to patient regarding DVT prophylaxis Disposition: remains on med/surg Resident Tracking Resident Involvement: Resident Care Provided Care Provided: Adult Hospital Medicine Reviewed: Pt Seen/Exam by Me History had to have stool disimpacted last night right wrist pain slowly improving Constitutional: denies: fever Respiratory: negative: short of breath Cardiovascular: denies chest pain General Appearance: no apparent distress Respiratory: no respiratory distress Cardiovascular: regular rate, rhythm Extremities: other (right leg in dressing) Neurologic/Psychiatric: alert, oriented x 3 Skin Characteristics: warm/dry Assessment/Plan Resident Physician Supervision Note: I independently interviewed and examined the patient and verified the danielson history and physical, reviewed labs and image studies, discussed the case with the resident Dr. Streeter and agree with the findings and care plan.
[2017-09-29] MEDS: POTASSIUM CHLR 10 MEQ / WTR 10 MEQ in PREMIXED WATER 100 ML IV SCH ×6 (14:18→18:45)
[2017-09-29 15:54] VITALS: BP 118/76; PULSE 97; TEMP 36.8; O2SAT 95
[2017-09-29] MEDS: DOCUSATE SODIUM 100 MG CAP PO SCH (19:23)
[2017-09-29] MEDS ORDERED: MAGNESIUM OXIDE 400 MG TAB PO SCH (20:00)
[2017-09-29] MEDS: ZOLPIDEM TARTRATE 5 MG TAB PO SCH (22:00)
[2017-09-29 23:29] VITALS: BP 121/51; PULSE 100; TEMP 36.9; O2SAT 92
[2017-09-30] MEDS: IMIPENEM/CILASTATIN IV 500 MG in DEXTROSE 5% 100ML 100 ML IV SCH (05:37)
[2017-09-30 06:13] LABS: HEMATOCRIT 34.1 % (37-47); HEMOGLOBIN 10.4 g/dL (12.0-16.0); MEAN CELL VOLUME 83.6 fL (80-100); MEAN CORPUSCULAR HEMOGLOBIN 25.5 pg (25-34); MEAN CORPUSCULAR HGB CONC 30.5 g/dl (32-36); MEAN PLATELET VOLUME 10.5 fL (7.4-10.4); PLATELET COUNT 202 K/uL (130-400); RED CELL DISTRIBUTION WIDTH CV 19.7 % (11.5-14.5); RED CELL DISTRIBUTION WIDTH SD 60.9 fL (36.4-46.3); WHITE BLOOD COUNT 8.21 K/uL (4.8-10.8)
[2017-09-30 06:48] LABS: CALCIUM 7.2 mg/dl (8.5-10.1); CREATININE 2.63 mg/dl (0.60-1.20)
[2017-09-30 08:00] VITALS: O2SAT 96
[2017-09-30] MEDS: MAGNESIUM OXIDE 400 MG TAB PO SCH (08:00)
[2017-09-30] MEDS: EUCERIN CR 120 GM JAR EXT SCH ×2 (08:17→21:27)
[2017-09-30] MEDS: GLIMEPIRIDE 2 MG TAB PO SCH (08:22)
[2017-09-30] MEDS: FLUCONAZOLE 100 MG TAB PO SCH (08:23)
[2017-09-30 08:25] VITALS: BP 114/80; PULSE 94; TEMP 36.5; O2SAT 94
[2017-09-30] MEDS: DOCUSATE SODIUM 100 MG CAP PO SCH ×2 (08:25→20:00)
[2017-09-30] MEDS: HEPARIN SOD 5000 UNIT/0.5 ML CARP SQ SCH ×2 (09:00→21:00)
[2017-09-30] MEDS: BUMETANIDE IV 2 MG in SYRINGE 0 ML IV SCH ×2 (09:25→16:43)
[2017-09-30] MEDS: INSULIN ASPART 100 UNITS/ML 3 ML PEN SC SCH ×4 (09:31→22:05)
[2017-09-30] MEDS: OXYCODONE HCL IR 5 MG TAB (IMMEDIATE RELEASE) PO PRN ×2 (11:26→22:27)
[2017-09-30] MEDS: POTASSIUM CHLR 10 MEQ / WTR 10 MEQ in PREMIXED WATER 100 ML IV SCH ×3 (11:28→13:20)
[2017-09-30] MEDS ORDERED: [UNRECOGNIZED DRUG - REMARK] PRN (11:30)
[2017-09-30] MEDS: POTASSIUM CHLORIDE 20 MEQ TABCR PO SCH ×2 (11:30→20:00)
[2017-09-30] MEDS: SODIUM CHLORIDE 0.9% IV SCH ×2 (12:10→21:26)
[2017-09-30] MEDS: CEFTAZIDIME AVIBACTAM IV SCH ×2 (12:10→21:26)
[2017-09-30] MEDS ORDERED: GLIMEPIRIDE 2 MG TAB PO ONE (17:58)
--- NOTE | 2017-09-30 18:06 | Progress Note ---
Subjective Date of Service: Sep 30, 2017. Subjective The patient has no significant complaints today with a long discussion about her blood glucose control she is resistant to using insulin of any kind we will be agreeable to have her using Amaryl at increasing doses she says she's tried Januvia in the past and it didn't work for her her legs are mildly uncomfortable her body creases are being cared for by cream and powder and she is comfortable with her renal function being managed by Dr. Nava Problem List Medical Problems: (1) Acute renal disease Status: Acute (2) Acute renal failure Status: Acute (3) ELIZABETH (acute kidney injury) Status: Acute (4) ELIZABETH (acute kidney injury) Status: Acute (5) Anemia Status: Acute (6) Cellulitis Status: Acute (7) Cellulitis of both lower extremities Status: Acute (8) CHF (congestive heart failure) Status: Acute (9) CHF (congestive heart failure) Status: Acute (10) Dehydration Status: Acute (11) Fluid overload Status: Acute (12) Hypoxia Status: Acute (13) Pickwickian syndrome Status: Acute (14) Pneumonia Status: Acute (15) Respiratory failure Status: Acute (16) Sacral decubitus ulcer, stage III Status: Acute (17) UTI (urinary tract infection) Status: Acute Review of Systems Constitutional: + weakness, + fatigue, No fever, No chills Respiratory: + shortness of breath, + dyspnea on exertion, No cough Cardiac: + orthopnea, + edema, No chest pain Abdomen: No pain, No nausea, No vomiting Musculoskeletal: + joint pain, + muscle pain Psychiatric: + depression symptoms, + anxiety Skin: + rash, + color change Objective Vital Signs Date Time Temp Pulse Resp B/P (MAP) Pulse Ox O2 Delivery O2 Flow Rate FiO2 09/30/17 08:25 36.5 94 20 114/80 (91) 94 Nasal Cannula 4.0 09/30/17 08:00 96 Nasal Cannula 3.5 Humidified Oxygen 09/30/17 00:00 Nasal Cannula 3.5 09/29/17 23:29 36.9 100 20 121/51 (74) 92 Nasal Cannula 4.0 Physical Exam General Appearance: + mild distress, + obese Eyes: normal inspection, sclerae normal Neck: supple, trachea midline Respiratory/Chest: no respiratory distress, + decreased breath sounds Cardiovascular: regular rate, rhythm, + systolic murmur Abdomen: normal bowel sounds, non tender, soft Extremities: + pertinent finding (changes of chronic venous stasis with discoloration and woody firmness of her lower legs) Neurologic/Psychiatric: alert, oriented x 3 Laboratory Results Last 24 Hours Test 09/29/17 23:06 09/30/17 05:28 09/30/17 08:14 09/30/17 11:27 Bedside Glucose 437 mg/dl 238 mg/dl 247 mg/dl White Blood Count 8.21 K/uL Red Blood Count 4.08 M/uL Hemoglobin 10.4 g/dL Hematocrit 34.1 % Mean Corpuscular Volume 83.6 fL Mean Corpuscular Hemoglobin 25.5 pg Mean Corpuscular Hemoglobin Concent 30.5 g/dl RDW Standard Deviation 60.9 fL RDW Coefficient of Variation 19.7 % Platelet Count 202 K/uL Mean Platelet Volume 10.5 fL Sodium Level 140 mmol/L Potassium Level 3.0 mmol/L Chloride Level 90 mmol/L Carbon Dioxide Level 35 mmol/L Anion Gap 14.0 mmol/L Blood Urea Nitrogen 118 mg/dl Creatinine 2.63 mg/dl Est Creatinine Clear Calc Drug Dose 29.2 ml/min Estimated GFR () 22.2 Estimated GFR (Non- 19.1 BUN/Creatinine Ratio 44.9 Random Glucose 276 mg/dl Calcium Level 7.2 mg/dl Magnesium Level 1.4 mg/dl Assessment and Plan [id number] who presents with lower extremity wounds from chronic venous stasis morbid obesity and immobility with acute on chronic renal failure stage IV the patient is uncontrolled diabetes due to her limiting what medications can be used treated and her dietary noncompliance Stage 3 decubitus sacral ulcer and numerous wounds of the LEs secondary to chronic venous stasis - Continue imipenem. ID and wound care following. Acute/chronic diastolic CHF This patient has had noncompliance with both diet & fluid restriction. - Continue Bumex -with oversight from her clay artist - Continue to Hold metazolone and aldactone until Cr and K will allow. . Patient bargains with her fluid and salt restriction Right Wrist Pain, possibly 2/2 to Gout Uric acid level 12 on tapering doses of prednisone consider rapidly reducing this to avoid escalation of her diabetic problems Chronic hypoxic/hypercarbic respiratory failure /COPD not in exacerbation 4L NC (usually on 3L at home) seemingly stable at this time using BiPAP at night Acute on chronic renal failure stage IV disease being followed by oncologist and her diuretics based upon her laboratory testing Chronic intertrigo - improving with Diflucan daily. - uncontrolled -diabetes patient has agreed escalation of her doses of Amaryl she however does not agree to using Januvia or other medications at this time Hypokalemia hypomagnesemia will be repleted cautiously given her renal failure Hyponatremia has resolved Anemia of chronic disease hemoglobin has been stable around 10 Code: patient requests level 1 full code status
--- NOTE | 2017-09-30 19:43 | Infectious Disease Progress Nt ---
Progress Note Date of Service Sep 30, 2017. Subjective Pt evaluation today including: conversation w/ patient, physical exam, chart review, lab review, review of studies, conversation w/ nursing consultant, review of inpatient medication list The patient is offering no new specific complaints today. Remains afebrile. Swelling in lower extremities improved. Cultures from sacral decubitus now growing extremely resistant Klebsiella pneumoniae. All Other Systems: Reviewed and Negative Medications Current Inpatient Medications Medications (Trade) Dose Ordered Sig/Bruno Route Start Time Stop Time Status Last Admin Dose Admin Heparin Sodium (Porcine) (Heparin Sq 5000 Unit/0.5ml) 5,000 unit Q12 SQ 09/19/17 21:00 10/19/17 20:59 Acetaminophen (Tylenol Tab) 650 mg Q4H PRN PO 09/19/17 15:45 10/19/17 15:44 Al Hydrox/Mg Hydrox/Simethicone (Maalox Max Susp) 15 ml Q4H PRN PO 09/19/17 15:45 10/19/17 15:44 Magnesium Hydroxide (Milk Of Magnesia Susp) 30 ml Q12H PRN PO 09/19/17 15:45 10/19/17 15:44 Ondansetron HCl (Zofran Inj) 4 mg Q6H PRN IV 09/19/17 15:45 10/19/17 15:44 Nitroglycerin (Nitrostat Tab) 0.4 mg UD PRN SL 09/19/17 15:45 10/19/17 15:44 Ergocalciferol (Vitamin D Cap) 50,000 interunit Fr@0900 PO 09/20/17 09:00 10/20/17 08:59 09/27/17 08:36 50,000 INTERUNIT Multi-Ingredient Ointment (Eucerin Unscented Cr) 1 appln BID EXT 09/19/17 21:00 10/19/17 20:59 09/30/17 08:17 1 APPLN Zolpidem Tartrate (Ambien Tab) 5 mg HS PO 09/19/17 21:00 10/19/17 20:59 Hydromorphone HCl (Dilaudid Inj) 0.5 mg Q4H PRN IV 09/19/17 16:15 10/03/17 16:14 09/28/17 22:13 0.5 MG Imipenem/ Cilastatin Sodium (Consult) 1 ea UD PRN N/A 09/19/17 19:15 10/19/17 19:14 Bumetanide 2 mg/ Syringe 8 ml @ 4 mls/min BID@0900,1700 IV 09/20/17 09:00 10/20/17 08:59 09/30/17 16:43 4 MLS/MIN Oxycodone HCl (Roxicodone Immediate Rel Tab) 5 mg Q4H PRN PO 09/22/17 12:00 10/03/17 15:44 09/30/17 11:26 5 MG Heparin Sodium (Porcine) (Heparin 10 Unit/ ml 5 ml Flush) 5 ml PRN PRN FLUSH 09/22/17 18:45 10/22/17 18:44 09/30/17 16:43 5 ML Miconazole Nitrate (Desenex Powder) 1 appln PRN PRN EXT 09/24/17 10:45 10/24/17 10:44 Menthol (Nice Izaiah) 1 izaiah PRN PRN IZAIAH 09/25/17 13:15 10/25/17 13:14 09/25/17 13:55 24 IZAIAH Insulin Aspart (novoLOG ASPART) SLIDING SCALE G... ACHS SC 09/27/17 22:00 10/27/17 21:59 09/30/17 18:52 8 UNITS Glucose (Glucose 40% Gel) 15-30 GRAMS 15 GRAMS... UD PRN PO 09/27/17 21:45 10/27/17 21:44 Glucose (Glucose Chew Tab) 4-8 Tablets 4 Tabl... UD PRN PO 09/27/17 21:45 10/27/17 21:44 Dextrose (Dextrose 50% 50ML Syringe) 25-50ML OF 50% DW IV FOR... UD PRN IV 09/27/17 21:45 10/27/17 21:44 Glucagon (Glucagon Inj) 1 mg UD PRN SQ 09/27/17 21:45 10/27/17 21:44 Docusate Sodium (coLACE CAP) 100 mg BID PO 09/29/17 20:00 10/29/17 19:59 09/30/17 08:25 100 MG Magnesium Oxide (Mag-Ox Tab) 400 mg DAILY PO 09/30/17 08:00 10/29/17 19:59 Prednisone (PredniSONE TAB) 30 mg DAILY PO 09/30/17 08:00 10/27/17 07:59 09/30/17 08:21 30 MG Potassium Chloride (Klor-Con Tab) 20 meq BID PO 09/30/17 11:30 10/01/17 08:01 Miscellaneous Information 1 ea UD PRN N/A 09/30/17 11:30 10/30/17 11:29 Ceftazidime/ Avibactam 1.25 gm/ Sodium Chloride 56 ml @ 25 mls/hr Q8H IV 09/30/17 12:00 10/10/17 11:59 09/30/17 12:10 25 MLS/HR Glimepiride (Amaryl Tab) 2 mg BIDM PO 10/01/17 08:00 10/31/17 07:59 Objective Vital Signs Date Time Temp Pulse Resp B/P (MAP) Pulse Ox O2 Delivery O2 Flow Rate FiO2 09/30/17 08:25 36.5 94 20 114/80 (91) 94 Nasal Cannula 4.0 09/30/17 08:00 96 Nasal Cannula 3.5 Humidified Oxygen 09/30/17 00:00 Nasal Cannula 3.5 09/29/17 23:29 36.9 100 20 121/51 (74) 92 Nasal Cannula 4.0 Physical Exam General Appearance: WD/WN, no apparent distress, + obese Eyes: normal inspection, EOMI, sclerae normal ENT: normal ENT inspection, hearing grossly normal, pharynx normal Neck: supple, no adenopathy, thyroid normal, trachea midline Respiratory/Chest: chest non-tender, lungs clear, normal breath sounds, no respiratory distress Cardiovascular: regular rate, rhythm, no gallop, no murmur Abdomen: normal bowel sounds, non tender, soft, no organomegaly Extremities: non-tender, + inflammation, + swelling Neurologic/Psychiatric: alert, oriented x 3 Skin: normal color, no rash (Low that), + pertinent finding (Excellent ulcerations slowly improving) Lymphatic: no adenopathy Laboratory Results RUN DATE: 09/30/17 [facility] LAB PAGE 1 RUN TIME: 1125 Specimen Inquiry PATIENT: LOC PADILLA LOC: DEEPAW U # : [id number] AGE/SX: 57/F ROOM: [facility] REG : 09/19/[address]: Hernan Morgan MD, PhD : 1960 BED: 1 DIS : STATUS: ADM IN TLOC: SPEC #: [id number] DINO: 09/27/17 STATUS: COMP REQ #: [id number] RECD: 09/27/[address] [facility] [address]: Teo Fallon M.D. SOURCE: SKIN ENTR: 09/27/[address] [facility] [address]: Jake Brown MD SPDESC: Maxime Chairez I., Parminder Gilliam, Luna Triplett M.D. Siuta, Jonathan R., MD ORDERED: SURF MIO CU/GORGE COMMENTS: Has Specimen Been Obtained/Collected? Y COCCYX/R-L SACRUM Procedure Result Verified Site GRAM STAIN Final 09/28/17-925 RESULT RARE GRAM POSITIVE COCCI RARE GRAM NEGATIVE BACILLI RARE EPITHELIAL CELLS MODERATE WBCs SEEN SURFACE WOUND CULTURE Final 09/30/17-112 Organism 1 KLEBSIELLA PNEUMONIAE QUANITY MODERATE SENS SENSITIVITY TO FOLLOW +MIXWOUND PLUS LOW COUNTS OF PROBABLE SKIN RANCHO SENSITIVITY RESULT INDICATES AN ORGANISM WITH AN EXTENDED SPECTRUM BETA LACTAMASE.THIS IS CONSIDERED A MULTIDRUG RESISTANT ORGANISM.PHONED TO [facility] ON 09/30/17 AT 0739 BY Nabil Mullins. Results were verbalized back to TREY. RESULTS WERE ALSO CALLED TO [facility]OL ANSWERING MACHINE ON 09/30/17 BY TREY. 1. KLEBSIELLA PNEUMONIAE Target Route Dose RX AB Cost M.I.C. IQ ------ ----- ------ -- ------ -------- - ------ TRIMET/SULFA R >2/38 AMPICILLIN/SUL R >16/8 CEFAZOLIN R >16 CEFOXITIN R >16 CEFOTAXIME R >32 CEFTRIAXONE R >32 CEFEPIME R >16 CEFUROXIME R >16 IMIPENEM R >8 GENTAMICIN S <=4 TOBRAMYCIN R >8 AMIKACIN S <=16 CONTINUED ON NEXT PAGE RUN DATE: 09/30/17 [facility] LAB PAGE 2 RUN TIME: 1124 Specimen Inquiry SPEC: [id number] PATIENT: LOC PADILLA [id number] ( Continued) Procedure Result Verified Site SURFACE WOUND CULTURE Final (continued) 09/30/17-1124 1. KLEBSIELLA PNEUMONIAE (continued) Target Route Dose RX AB Cost M.I.C. IQ ------ ----- ------ -- ------ -------- - ------ CIPROFLOXACIN R >2 LEVOFLOXACIN R >4 ERTAPENEM R >4 PIP/TAZO R >64 S = SENSITIVE I = INTERMEDIATE R = RESISTANT END OF REPORT Last 24 Hours Test 09/29/17 23:06 09/30/17 05:28 09/30/17 08:14 09/30/17 11:27 Bedside Glucose 437 mg/dl 238 mg/dl 247 mg/dl White Blood Count 8.21 K/uL Red Blood Count 4.08 M/uL Hemoglobin 10.4 g/dL Hematocrit 34.1 % Mean Corpuscular Volume 83.6 fL Mean Corpuscular Hemoglobin 25.5 pg Mean Corpuscular Hemoglobin Concent 30.5 g/dl RDW Standard Deviation 60.9 fL RDW Coefficient of Variation 19.7 % Platelet Count 202 K/uL Mean Platelet Volume 10.5 fL Sodium Level 140 mmol/L Potassium Level 3.0 mmol/L Chloride Level 90 mmol/L Carbon Dioxide Level 35 mmol/L Anion Gap 14.0 mmol/L Blood Urea Nitrogen 118 mg/dl Creatinine 2.63 mg/dl Est Creatinine Clear Calc Drug Dose 29.2 ml/min Estimated GFR () 22.2 Estimated GFR (Non- 19.1 BUN/Creatinine Ratio 44.9 Random Glucose 276 mg/dl Calcium Level 7.2 mg/dl Magnesium Level 1.4 mg/dl Assessment and Plan 57 yo poorly controlled diabetic female with heart failure with worsening edema/ fluid retention with worsening infection of leg ulcers and sacral decubitus with slow improvement with hospital care, but now growing highly resistant Klebsiella from sacral decubitus. Patient has been changed to IV Avycaz, with length of therapy to be determined by clinical response.
[2017-09-30] MEDS: ZOLPIDEM TARTRATE 5 MG TAB PO SCH (21:56)
[2017-10-01 00:10] VITALS: BP 124/82; PULSE 94; TEMP 36.8; O2SAT 98
[2017-10-01] MEDS: CEFTAZIDIME AVIBACTAM IV SCH ×3 (06:06→20:48)
[2017-10-01] MEDS: SODIUM CHLORIDE 0.9% IV SCH ×3 (06:06→20:48)
[2017-10-01] MEDS: MAGNESIUM OXIDE 400 MG TAB PO SCH (08:00)
[2017-10-01] MEDS: POTASSIUM CHLORIDE 20 MEQ TABCR PO SCH ×2 (08:00→08:15)
[2017-10-01] MEDS: GLIMEPIRIDE 2 MG TAB PO SCH ×2 (08:19→17:47)
[2017-10-01] MEDS: DOCUSATE SODIUM 100 MG CAP PO SCH ×2 (08:19→20:00)
[2017-10-01] MEDS: BUMETANIDE IV 2 MG in SYRINGE 0 ML IV SCH ×2 (08:19→17:47)
[2017-10-01] MEDS: EUCERIN CR 120 GM JAR EXT SCH ×2 (08:19→20:00)
[2017-10-01] MEDS: INSULIN ASPART 100 UNITS/ML 3 ML PEN SC SCH ×4 (08:20→21:03)
[2017-10-01] MEDS: HEPARIN SOD 5000 UNIT/0.5 ML CARP SQ SCH ×2 (08:20→20:48)
[2017-10-01 08:22] VITALS: BP 96/56; PULSE 58; TEMP 36.8; O2SAT 95
--- NOTE | 2017-10-01 08:23 | Nephrology Progress Note ---
Nephrology Progress Note Date of Service: Oct 01, 2017. Subjective 57 yo female with lymphedema/volume overload/weeping ulcers/jonny/gout/ uncontrolled diabetes. pts right wrist pain is improving on the prednisone. pt concerned about her elevated blood sugars. continues to diurese well although legs tender and still with edema. Objective Date Time Temp Pulse Resp B/P (MAP) Pulse Ox O2 Delivery O2 Flow Rate FiO2 10/01/17 00:10 36.8 94 20 124/82 (96) 98 Nasal Cannula 4.0 10/01/17 00:00 Nasal Cannula 4.0 09/30/17 19:38 Nasal Cannula 4.0 Humidified Oxygen 09/30/17 08:25 36.5 94 20 114/80 (91) 94 Nasal Cannula 4.0 Physical Exam: General-aaox3 Eyes-no scleral icterus ENT-mmm Neck-supple Lungs-decreased at bases Heart-regular Abdomen-bs+/soft/nontender Extremities-+1 edema with chronic wounds of lower extremities and tender to touch Neuro-nonfocal Current Inpatient Medications Medications (Trade) Dose Ordered Sig/Bruno Route Start Time Stop Time Status Last Admin Dose Admin Heparin Sodium (Porcine) (Heparin Sq 5000 Unit/0.5ml) 5,000 unit Q12 SQ 09/19/17 21:00 10/19/17 20:59 Acetaminophen (Tylenol Tab) 650 mg Q4H PRN PO 09/19/17 15:45 10/19/17 15:44 Al Hydrox/Mg Hydrox/Simethicone (Maalox Max Susp) 15 ml Q4H PRN PO 09/19/17 15:45 10/19/17 15:44 Magnesium Hydroxide (Milk Of Magnesia Susp) 30 ml Q12H PRN PO 09/19/17 15:45 10/19/17 15:44 Ondansetron HCl (Zofran Inj) 4 mg Q6H PRN IV 09/19/17 15:45 10/19/17 15:44 Nitroglycerin (Nitrostat Tab) 0.4 mg UD PRN SL 09/19/17 15:45 10/19/17 15:44 Ergocalciferol (Vitamin D Cap) 50,000 interunit Fr@0900 PO 09/20/17 09:00 10/20/17 08:59 09/27/17 08:36 50,000 INTERUNIT Multi-Ingredient Ointment (Eucerin Unscented Cr) 1 appln BID EXT 09/19/17 21:00 10/19/17 20:59 09/30/17 21:27 1 APPLN Zolpidem Tartrate (Ambien Tab) 5 mg HS PO 09/19/17 21:00 10/19/17 20:59 Hydromorphone HCl (Dilaudid Inj) 0.5 mg Q4H PRN IV 09/19/17 16:15 10/03/17 16:14 09/28/17 22:13 0.5 MG Imipenem/ Cilastatin Sodium (Consult) 1 ea UD PRN N/A 09/19/17 19:15 10/19/17 19:14 Bumetanide 2 mg/ Syringe 8 ml @ 4 mls/min BID@0900,1700 IV 09/20/17 09:00 10/20/17 08:59 09/30/17 16:43 4 MLS/MIN Oxycodone HCl (Roxicodone Immediate Rel Tab) 5 mg Q4H PRN PO 09/22/17 12:00 10/03/17 15:44 09/30/17 22:27 5 MG Heparin Sodium (Porcine) (Heparin 10 Unit/ ml 5 ml Flush) 5 ml PRN PRN FLUSH 09/22/17 18:45 10/22/17 18:44 10/01/17 00:20 5 ML Miconazole Nitrate (Desenex Powder) 1 appln PRN PRN EXT 09/24/17 10:45 10/24/17 10:44 Menthol (Nice Umberto) 1 muberto PRN PRN UMBERTO 09/25/17 13:15 10/25/17 13:14 09/25/17 13:55 24 UMBERTO Insulin Aspart (novoLOG ASPART) SLIDING SCALE G... ACHS SC 09/27/17 22:00 10/27/17 21:59 09/30/17 22:05 11 UNITS Glucose (Glucose 40% Gel) 15-30 GRAMS 15 GRAMS... UD PRN PO 09/27/17 21:45 10/27/17 21:44 Glucose (Glucose Chew Tab) 4-8 Tablets 4 Tabl... UD PRN PO 09/27/17 21:45 10/27/17 21:44 Dextrose (Dextrose 50% 50ML Syringe) 25-50ML OF 50% DW IV FOR... UD PRN IV 09/27/17 21:45 10/27/17 21:44 Glucagon (Glucagon Inj) 1 mg UD PRN SQ 09/27/17 21:45 10/27/17 21:44 Docusate Sodium (coLACE CAP) 100 mg BID PO 09/29/17 20:00 10/29/17 19:59 09/30/17 08:25 100 MG Magnesium Oxide (Mag-Ox Tab) 400 mg DAILY PO 09/30/17 08:00 10/29/17 19:59 Prednisone (PredniSONE TAB) 30 mg DAILY PO 09/30/17 08:00 10/27/17 07:59 09/30/17 08:21 30 MG Miscellaneous Information 1 ea UD PRN N/A 09/30/17 11:30 10/30/17 11:29 Ceftazidime/ Avibactam 1.25 gm/ Sodium Chloride 56 ml @ 25 mls/hr Q8H IV 09/30/17 12:00 10/10/17 11:59 10/01/17 06:06 25 MLS/HR Glimepiride (Amaryl Tab) 2 mg BIDM PO 10/01/17 08:00 10/31/17 07:59 Last 24 Hours Test 09/30/17 11:27 09/30/17 16:47 09/30/17 21:55 Bedside Glucose 247 mg/dl 414 mg/dl 369 mg/dl Assessment & Plan SLG-[id number]-ddlift status continues to improve. developed gout likely from the diuresis and improving on a prednisone taper. may benefit from adding allopurinol as an outpt. creatinine improved from 4.69 to 2.6. continue current diuretic. appears to be working well for her. creatinine baseline appears to be in the low 2s. hopefully gets back to baseline. hypokalemia-started on k supplement 40meq a day while inhouse. iron deficiency anemia-given the diuresis, hg levels have improved. would recheck iron sat and ferritin to see if she would benefit from anymore iv iron.
[2017-10-01] MEDS: OXYCODONE HCL IR 5 MG TAB (IMMEDIATE RELEASE) PO PRN (11:43)
--- NOTE | 2017-10-01 13:16 | DIAGNOSTIC IMAGING REPORT ---
CHEST ONE VIEW PORTABLE CLINICAL HISTORY: picc replacement tube position COMPARISON STUDY: 09/19/2017 FINDINGS: Placement right PICC catheter with the tip coiled in the superior vena cava. No evidence of pneumothorax. Mild stable cardia megaly. IMPRESSION: PICC catheter placed in the superior vena cava. The tip is coiled. No pneumothorax The above report was generated using voice recognition software. It may contain grammatical, syntax or spelling errors. Electronically signed by: Parminder Pineda M.D. 10/01/2017 1:15 PM Dictated Date/Time: 10/01/2017 1:14 PM
[2017-10-01 15:12] VITALS: BP 132/81; PULSE 104; TEMP 37; O2SAT 94
--- NOTE | 2017-10-01 17:31 | DIAGNOSTIC IMAGING REPORT ---
CHEST ONE VIEW PORTABLE CLINICAL HISTORY: 57 years-old Female presenting with PICC ADJUSTMENT RIGHT UPPER ARM *CONTACT ROOM*. TECHNIQUE: Portable upright AP view of the chest was obtained. COMPARISON: 10/01/2017. FINDINGS: Right upper extremity PICC terminates in the SVC. Atherosclerosis of aortic arch. Chronic silhouette moderately enlarged. Enlargement of the main pulmonary artery suspected. Pulmonary vascular prominence. Multiple prominent lung markings. No focal opacity. No large effusion or pneumothorax. Degenerative changes of the thoracic spine. Upper abdomen normal. IMPRESSION: 1. Cardiomegaly with volume overload. 2. Right upper extremity PICC now appropriately positioned. Electronically signed by: Garett Aguilera M.D. 10/01/2017 5:29 PM Dictated Date/Time: 10/01/2017 5:27 PM
--- NOTE | 2017-10-01 19:43 | Progress Note ---
Subjective Date of Service: Oct 01, 2017. Subjective this pt is for re placement of picc line due to it backing out , it has been replaced, she remains with ckd 3 and has reached a stable state Problem List Medical Problems: (1) Acute renal disease Status: Acute (2) Acute renal failure Status: Acute (3) ELIZABETH (acute kidney injury) Status: Acute (4) ELIZABETH (acute kidney injury) Status: Acute (5) Anemia Status: Acute (6) Cellulitis Status: Acute (7) Cellulitis of both lower extremities Status: Acute (8) CHF (congestive heart failure) Status: Acute (9) CHF (congestive heart failure) Status: Acute (10) Dehydration Status: Acute (11) Fluid overload Status: Acute (12) Hypoxia Status: Acute (13) Pickwickian syndrome Status: Acute (14) Pneumonia Status: Acute (15) Respiratory failure Status: Acute (16) Sacral decubitus ulcer, stage III Status: Acute (17) UTI (urinary tract infection) Status: Acute Review of Systems Constitutional: + weakness, + fatigue, No fever, No chills Respiratory: No cough, No shortness of breath Cardiac: + edema, No chest pain Abdomen: No pain, No nausea, No vomiting, No diarrhea Musculoskeletal: + joint pain Female : No dysuria, No urinary frequency Psychiatric: No depression symptoms, No anxiety Objective Vital Signs Date Time Temp Pulse Resp B/P (MAP) Pulse Ox O2 Delivery O2 Flow Rate FiO2 10/01/17 16:30 Nasal Cannula 4.0 10/01/17 15:12 37.0 104 20 132/81 (98) 94 Nasal Cannula 4.0 10/01/17 08:45 Nasal Cannula 4.0 10/01/17 08:22 36.8 58 20 96/56 (69) 95 Nasal Cannula 4.0 10/01/17 00:10 36.8 94 20 124/82 (96) 98 Nasal Cannula 4.0 10/01/17 00:00 Nasal Cannula 4.0 Physical Exam General Appearance: + mild distress, + obese Eyes: normal inspection, sclerae normal Respiratory/Chest: chest non-tender, lungs clear, normal breath sounds Cardiovascular: regular rate, rhythm, no murmur Abdomen: normal bowel sounds, non tender, soft Extremities: + pedal edema, + slow capillary refill, + swelling Neurologic/Psychiatric: alert, oriented x 3 Skin: + pertinent finding (changes of chronic vneous stasis) Laboratory Results Last 24 Hours Test 09/30/17 21:55 10/01/17 08:12 10/01/17 11:29 Bedside Glucose 369 mg/dl 167 mg/dl 206 mg/dl Assessment and Plan 57 F who presents with lower extremity wounds from chronic venous stasis morbid obesity and immobility with acute on chronic renal failure stage IV the patient is uncontrolled diabetes due to her limiting what medications can be used treated and her dietary noncompliance Stage 3 decubitus sacral ulcer and numerous wounds of the LEs secondary to chronic venous stasis - Continue imipenem. ID and wound care following. Acute/chronic diastolic CHF This patient has had noncompliance with both diet & fluid restriction. - Continue Bumex -with oversight from her consulting networking engineer her renal function seems to be stable but maybe her baseline - Continue to Hold metazolone and aldactone until Cr and K will allow. . Right Wrist Pain, possibly 2/2 to Gout Uric acid level 12 on tapering doses of prednisone consider rapidly reducing this to avoid escalation of her diabetic problems, renal function prevents colchicine Chronic hypoxic/hypercarbic respiratory failure /COPD not in exacerbation 4L NC (usually on 3L at home) seemingly stable at this time using BiPAP at night Acute on chronic renal failure stage IV disease being followed by oncologist and her diuretics based upon her laboratory testing Chronic intertrigo - improving with Diflucan daily. - uncontrolled -diabetes patient has agreed escalation of her doses of Amaryl she however does not agree to using Januvia or other medications at this time Hypokalemia hypomagnesemia will be repeated cautiously given her renal failure Hyponatremia has resolved Anemia of chronic disease hemoglobin has been stable around 10 Code: patient requests level 1 full code status
--- NOTE | 2017-10-01 20:26 | Infectious Disease Progress Nt ---
Progress Note Date of Service Oct 01, 2017. Subjective Pt evaluation today including: conversation w/ patient, physical exam, chart review, lab review, review of studies, conversation w/ integrity consultant, review of inpatient medication list Offers no new complaints today. Tolerating antibiotics without apparent difficulty. Remains afebrile. All Other Systems: Reviewed and Negative Medications Current Inpatient Medications Medications (Trade) Dose Ordered Sig/Bruno Route Start Time Stop Time Status Last Admin Dose Admin Heparin Sodium (Porcine) (Heparin Sq 5000 Unit/0.5ml) 5,000 unit Q12 SQ 09/19/17 21:00 10/19/17 20:59 Acetaminophen (Tylenol Tab) 650 mg Q4H PRN PO 09/19/17 15:45 10/19/17 15:44 Al Hydrox/Mg Hydrox/Simethicone (Maalox Max Susp) 15 ml Q4H PRN PO 09/19/17 15:45 10/19/17 15:44 Magnesium Hydroxide (Milk Of Magnesia Susp) 30 ml Q12H PRN PO 09/19/17 15:45 10/19/17 15:44 Ondansetron HCl (Zofran Inj) 4 mg Q6H PRN IV 09/19/17 15:45 10/19/17 15:44 Nitroglycerin (Nitrostat Tab) 0.4 mg UD PRN SL 09/19/17 15:45 10/19/17 15:44 Ergocalciferol (Vitamin D Cap) 50,000 interunit Fr@0900 PO 09/20/17 09:00 10/20/17 08:59 09/27/17 08:36 50,000 INTERUNIT Multi-Ingredient Ointment (Eucerin Unscented Cr) 1 appln BID EXT 09/19/17 21:00 10/19/17 20:59 10/01/17 08:19 1 APPLN Zolpidem Tartrate (Ambien Tab) 5 mg HS PO 09/19/17 21:00 10/19/17 20:59 Hydromorphone HCl (Dilaudid Inj) 0.5 mg Q4H PRN IV 09/19/17 16:15 10/03/17 16:14 09/28/17 22:13 0.5 MG Bumetanide 2 mg/ Syringe 8 ml @ 4 mls/min BID@0900,1700 IV 09/20/17 09:00 10/20/17 08:59 10/01/17 17:47 4 MLS/MIN Oxycodone HCl (Roxicodone Immediate Rel Tab) 5 mg Q4H PRN PO 09/22/17 12:00 10/03/17 15:44 10/01/17 11:43 5 MG Heparin Sodium (Porcine) (Heparin 10 Unit/ ml 5 ml Flush) 5 ml PRN PRN FLUSH 09/22/17 18:45 10/22/17 18:44 10/01/17 08:24 5 ML Miconazole Nitrate (Desenex Powder) 1 appln PRN PRN EXT 09/24/17 10:45 10/24/17 10:44 Menthol (Nice Marko) 1 marko PRN PRN MARKO 09/25/17 13:15 10/25/17 13:14 09/25/17 13:55 24 MARKO Insulin Aspart (novoLOG ASPART) SLIDING SCALE G... ACHS SC 09/27/17 22:00 10/27/17 21:59 10/01/17 17:47 8 UNITS Glucose (Glucose 40% Gel) 15-30 GRAMS 15 GRAMS... UD PRN PO 09/27/17 21:45 10/27/17 21:44 Glucose (Glucose Chew Tab) 4-8 Tablets 4 Tabl... UD PRN PO 09/27/17 21:45 10/27/17 21:44 Dextrose (Dextrose 50% 50ML Syringe) 25-50ML OF 50% DW IV FOR... UD PRN IV 09/27/17 21:45 10/27/17 21:44 Glucagon (Glucagon Inj) 1 mg UD PRN SQ 09/27/17 21:45 10/27/17 21:44 Docusate Sodium (coLACE CAP) 100 mg BID PO 09/29/17 20:00 10/29/17 19:59 10/01/17 08:19 100 MG Magnesium Oxide (Mag-Ox Tab) 400 mg DAILY PO 09/30/17 08:00 10/29/17 19:59 Prednisone (PredniSONE TAB) 30 mg DAILY PO 09/30/17 08:00 10/27/17 07:59 10/01/17 08:19 30 MG Miscellaneous Information 1 ea UD PRN N/A 09/30/17 11:30 10/30/17 11:29 Ceftazidime/ Avibactam 1.25 gm/ Sodium Chloride 56 ml @ 25 mls/hr Q8H IV 09/30/17 12:00 10/10/17 11:59 10/01/17 06:06 25 MLS/HR Glimepiride (Amaryl Tab) 2 mg BIDM PO 10/01/17 08:00 10/31/17 07:59 10/01/17 17:47 2 MG Potassium Chloride (Klor-Con Tab) 40 meq DAILY PO 10/01/17 08:15 10/31/17 08:14 Objective Vital Signs Date Time Temp Pulse Resp B/P (MAP) Pulse Ox O2 Delivery O2 Flow Rate FiO2 10/01/17 16:30 Nasal Cannula 4.0 10/01/17 15:12 37.0 104 20 132/81 (98) 94 Nasal Cannula 4.0 10/01/17 08:45 Nasal Cannula 4.0 10/01/17 08:22 36.8 58 20 96/56 (69) 95 Nasal Cannula 4.0 10/01/17 00:10 36.8 94 20 124/82 (96) 98 Nasal Cannula 4.0 10/01/17 00:00 Nasal Cannula 4.0 Physical Exam General Appearance: WD/WN, no apparent distress, + obese Eyes: normal inspection, EOMI, sclerae normal ENT: normal ENT inspection, hearing grossly normal, pharynx normal Neck: supple, no adenopathy, thyroid normal, trachea midline Respiratory/Chest: chest non-tender, lungs clear, normal breath sounds, no respiratory distress Cardiovascular: regular rate, rhythm, no gallop, no murmur Abdomen: normal bowel sounds, non tender, soft, no organomegaly Extremities: non-tender, normal capillary refill Neurologic/Psychiatric: no motor/sensory deficits, alert, oriented x 3 Skin: normal color, no rash, + pertinent finding (Wounds appear clean and unchanged) Lymphatic: no adenopathy Laboratory Results Last 24 Hours Test 09/30/17 21:55 10/01/17 08:12 10/01/17 11:29 Bedside Glucose 369 mg/dl 167 mg/dl 206 mg/dl Assessment and Plan 57 yo poorly controlled diabetic female with heart failure with worsening edema/ fluid retention with worsening infection of leg ulcers and sacral decubitus with slow improvement with hospital care, but now growing highly resistant Klebsiella from sacral decubitus. Patient has been changed to IV Avycaz, with length of therapy to be determined by clinical response.
[2017-10-01] MEDS: ZOLPIDEM TARTRATE 5 MG TAB PO SCH (20:48)
[2017-10-02] MEDS: CEFTAZIDIME AVIBACTAM IV SCH ×3 (04:00→21:07)
[2017-10-02] MEDS: SODIUM CHLORIDE 0.9% IV SCH ×3 (04:00→21:07)
[2017-10-02] MEDS: INSULIN ASPART 100 UNITS/ML 3 ML PEN SC SCH ×4 (06:30→21:25)
[2017-10-02] MEDS: MAGNESIUM OXIDE 400 MG TAB PO SCH (08:00)
[2017-10-02] MEDS: EUCERIN CR 120 GM JAR EXT SCH ×2 (08:00→20:00)
[2017-10-02] MEDS: POTASSIUM CHLORIDE 20 MEQ TABCR PO SCH (08:00)
[2017-10-02] MEDS: HEPARIN SOD 5000 UNIT/0.5 ML CARP SQ SCH ×2 (09:00→20:50)
[2017-10-02 09:05] LABS: CREATININE 1.92 mg/dl (0.60-1.20)
[2017-10-02 09:11] VITALS: BP 132/84; PULSE 92; TEMP 36.7; O2SAT 95
[2017-10-02] MEDS: BUMETANIDE IV 2 MG in SYRINGE 0 ML IV SCH ×2 (09:13→17:10)
[2017-10-02] MEDS: GLIMEPIRIDE 2 MG TAB PO SCH ×2 (09:14→17:15)
[2017-10-02] MEDS: DOCUSATE SODIUM 100 MG CAP PO SCH ×2 (09:14→21:07)
[2017-10-02 16:08] VITALS: BMI 39.9
[2017-10-02 16:17] VITALS: BP 136/80; PULSE 102; TEMP 36.9; O2SAT 94
--- NOTE | 2017-10-02 18:25 | Progress Note ---
Subjective Date of Service: Oct 02, 2017. Subjective Patient is frequently acting out likely frustrated from being in the hospital for so long she is blaming a lot of things on the reasons why she's here but she is really having failing health infectious diseases and recently change her antibiotics due to multidrug resistant sacral decubitus infection and this likely delayed disposition due to cost of infusion therapy Problem List Medical Problems: (1) Acute renal disease Status: Acute (2) Acute renal failure Status: Acute (3) ELIZABETH (acute kidney injury) Status: Acute (4) ELIZABETH (acute kidney injury) Status: Acute (5) Anemia Status: Acute (6) Cellulitis Status: Acute (7) Cellulitis of both lower extremities Status: Acute (8) CHF (congestive heart failure) Status: Acute (9) CHF (congestive heart failure) Status: Acute (10) Dehydration Status: Acute (11) Fluid overload Status: Acute (12) Hypoxia Status: Acute (13) Pickwickian syndrome Status: Acute (14) Pneumonia Status: Acute (15) Respiratory failure Status: Acute (16) Sacral decubitus ulcer, stage III Status: Acute (17) UTI (urinary tract infection) Status: Acute Review of Systems Constitutional: + weakness, + fatigue, No fever, No chills Respiratory: No cough, No shortness of breath, No dyspnea on exertion Cardiac: No chest pain, No edema Abdomen: No pain, No nausea, No vomiting, No diarrhea Musculoskeletal: + joint pain, No muscle pain, No swelling Psychiatric: + depression symptoms, + anxiety Objective Vital Signs Date Time Temp Pulse Resp B/P (MAP) Pulse Ox O2 Delivery O2 Flow Rate FiO2 10/02/17 16:17 36.9 102 20 136/80 (98) 94 Nasal Cannula 4.0 10/02/17 09:11 36.7 92 18 132/84 (100) 95 10/02/17 08:00 Nasal Cannula 4.0 Humidified Oxygen 10/02/17 00:00 Nasal Cannula 4.0 Humidified Oxygen 10/01/17 22:17 Nasal Cannula 4.0 Humidified Oxygen Physical Exam General Appearance: WD/WN, + mild distress, + obese Eyes: normal inspection, sclerae normal Respiratory/Chest: chest non-tender, lungs clear, + decreased breath sounds ( but decreased breath sounds at bases) Cardiovascular: regular rate, rhythm, + systolic murmur Abdomen: normal bowel sounds, non tender, soft Extremities: + pertinent finding (changes of chronic venous stasis open areas and dressings in place to her lower extremities) Neurologic/Psychiatric: alert, oriented x 3 Skin: + pertinent finding (nursing reports a critically was also given her body habitus I did not physically seen this will hopefully try to see this with her next dressing change and personal hygiene) Laboratory Results Last 24 Hours Test 10/01/17 20:58 10/02/17 08:10 10/02/17 08:13 10/02/17 11:36 Bedside Glucose 457 mg/dl 155 mg/dl 196 mg/dl Creatinine 1.92 mg/dl Est Creatinine Clear Calc Drug Dose 40.1 ml/min Estimated GFR () 32.5 Estimated GFR (Non- 28.0 Iron Level 69 mcg/dl Total Iron Binding Capacity 224 mcg/dl Transferrin 171 mg/dl Transferrin % Saturation 29 % Ferritin 279.6 ng/ml Test 10/02/17 17:14 Bedside Glucose 381 mg/dl Assessment and Plan 57 F who presents with lower extremity wounds from chronic venous stasis morbid obesity and immobility with acute on chronic renal failure stage IV the patient is uncontrolled diabetes due to her limiting what medications can be used treated and her dietary noncompliance Stage 3 decubitus sacral ulcer and numerous wounds of the LEs secondary to chronic venous stasis - ID due to the resistant organism in her sacral wound infectious disease has changed her antibiotics to Ceptaz edema plus every 8 hours Acute/chronic diastolic CHF this is been stable and renal function is improved as nephrology is provided oversight with her diuretic therapy We are continuing to hold metazolone and aldactone until Cr and K will allow. . Right Wrist Pain, possibly 2/2 to Gout patient says challenges with her prednisone therapy we will rapidly taper this and begin allopurinol as her renal function prevents colchicine Chronic hypoxic/hypercarbic respiratory failure /COPD not in exacerbation 4L NC (usually on 3L at home) remains seemingly stable at this time using BiPAP at night Acute on chronic renal failure stage IV disease being followed by vat house laborer and improved Chronic intertrigo - improving with Diflucan daily. - uncontrolled -diabetes patient has agreed escalation of her doses of Amaryl she now agrees to occasional sliding scale insulin use but blames her glucose control on her prednisone Hypokalemia hypomagnesemia continued to be followed every other day Hyponatremia has resolved Anemia of chronic disease hemoglobin has been stable around 10 Code: patient requests level 1 full code status
[2017-10-02] MEDS: OXYCODONE HCL IR 5 MG TAB (IMMEDIATE RELEASE) PO PRN (21:13)
[2017-10-02] MEDS: ZOLPIDEM TARTRATE 5 MG TAB PO SCH (22:00)
[2017-10-02 23:10] VITALS: BP 130/82; PULSE 99; TEMP 36.9; O2SAT 97
[2017-10-03] MEDS: CEFTAZIDIME AVIBACTAM IV SCH ×3 (04:00→20:30)
[2017-10-03] MEDS: SODIUM CHLORIDE 0.9% IV SCH ×3 (04:00→20:30)
[2017-10-03 05:54] LABS: HEMATOCRIT 35.6 % (37-47); HEMOGLOBIN 10.6 g/dL (12.0-16.0); MEAN CELL VOLUME 85.6 fL (80-100); MEAN CORPUSCULAR HEMOGLOBIN 25.5 pg (25-34); MEAN CORPUSCULAR HGB CONC 29.8 g/dl (32-36); MEAN PLATELET VOLUME 9.9 fL (7.4-10.4); PLATELET COUNT 182 K/uL (130-400); RED CELL DISTRIBUTION WIDTH CV 19.7 % (11.5-14.5); RED CELL DISTRIBUTION WIDTH SD 61.9 fL (36.4-46.3); WHITE BLOOD COUNT 12.81 K/uL (4.8-10.8)
[2017-10-03 06:23] LABS: CALCIUM 7.5 mg/dl (8.5-10.1); CREATININE 1.85 mg/dl (0.60-1.20); POTASSIUM 3.4 mmol/L (3.5-5.1)
[2017-10-03] MEDS: EUCERIN CR 120 GM JAR EXT SCH ×2 (08:53→20:00)
[2017-10-03] MEDS: POTASSIUM CHLORIDE 20 MEQ TABCR PO SCH (08:54)
[2017-10-03] MEDS: MAGNESIUM OXIDE 400 MG TAB PO SCH (08:54)
[2017-10-03] MEDS: HEPARIN SOD 5000 UNIT/0.5 ML CARP SQ SCH ×2 (08:56→20:30)
[2017-10-03] MEDS: GLIMEPIRIDE 2 MG TAB PO SCH ×2 (08:59→17:15)
[2017-10-03] MEDS: BUMETANIDE IV 2 MG in SYRINGE 0 ML IV SCH ×2 (09:00→17:14)
[2017-10-03] MEDS: DOCUSATE SODIUM 100 MG CAP PO SCH ×2 (09:00→20:00)
[2017-10-03] MEDS: ALLOPURINOL 100 MG TAB PO SCH (09:00)
[2017-10-03] MEDS: INSULIN ASPART 100 UNITS/ML 3 ML PEN SC SCH ×4 (09:01→20:31)
--- NOTE | 2017-10-03 10:58 | Infectious Disease Progress Nt ---
Progress Note Date of Service Oct 03, 2017. Subjective Pt evaluation today including: conversation w/ patient, physical exam, chart review, lab review, review of studies, conversation w/ industry consultant, review of inpatient medication list Patient offering no new complaints today. Leg swelling improving. No fever. Tolerating current antibiotic without apparent difficulty. Renal function improving. All Other Systems: Reviewed and Negative Medications Current Inpatient Medications Medications (Trade) Dose Ordered Sig/Bruno Route Start Time Stop Time Status Last Admin Dose Admin Heparin Sodium (Porcine) (Heparin Sq 5000 Unit/0.5ml) 5,000 unit Q12 SQ 09/19/17 21:00 10/19/17 20:59 Acetaminophen (Tylenol Tab) 650 mg Q4H PRN PO 09/19/17 15:45 10/19/17 15:44 Al Hydrox/Mg Hydrox/Simethicone (Maalox Max Susp) 15 ml Q4H PRN PO 09/19/17 15:45 10/19/17 15:44 Magnesium Hydroxide (Milk Of Magnesia Susp) 30 ml Q12H PRN PO 09/19/17 15:45 10/19/17 15:44 Ondansetron HCl (Zofran Inj) 4 mg Q6H PRN IV 09/19/17 15:45 10/19/17 15:44 Nitroglycerin (Nitrostat Tab) 0.4 mg UD PRN SL 09/19/17 15:45 10/19/17 15:44 Ergocalciferol (Vitamin D Cap) 50,000 interunit Fr@0900 PO 09/20/17 09:00 10/20/17 08:59 09/27/17 08:36 50,000 INTERUNIT Multi-Ingredient Ointment (Eucerin Unscented Cr) 1 appln BID EXT 09/19/17 21:00 10/19/17 20:59 10/01/17 08:19 1 APPLN Zolpidem Tartrate (Ambien Tab) 5 mg HS PO 09/19/17 21:00 10/19/17 20:59 Hydromorphone HCl (Dilaudid Inj) 0.5 mg Q4H PRN IV 09/19/17 16:15 10/03/17 16:14 09/28/17 22:13 0.5 MG Bumetanide 2 mg/ Syringe 8 ml @ 4 mls/min BID@0900,1700 IV 09/20/17 09:00 10/20/17 08:59 10/03/17 09:00 4 MLS/MIN Oxycodone HCl (Roxicodone Immediate Rel Tab) 5 mg Q4H PRN PO 09/22/17 12:00 10/03/17 15:44 10/02/17 21:13 5 MG Heparin Sodium (Porcine) (Heparin 10 Unit/ ml 5 ml Flush) 5 ml PRN PRN FLUSH 09/22/17 18:45 10/22/17 18:44 10/03/17 09:00 5 ML Miconazole Nitrate (Desenex Powder) 1 appln PRN PRN EXT 09/24/17 10:45 10/24/17 10:44 Menthol (Nice Marko) 1 marko PRN PRN MARKO 09/25/17 13:15 10/25/17 13:14 09/25/17 13:55 24 MARKO Insulin Aspart (novoLOG ASPART) SLIDING SCALE G... ACHS SC 09/27/17 22:00 10/27/17 21:59 10/03/17 09:01 4 UNITS Glucose (Glucose 40% Gel) 15-30 GRAMS 15 GRAMS... UD PRN PO 09/27/17 21:45 10/27/17 21:44 Glucose (Glucose Chew Tab) 4-8 Tablets 4 Tabl... UD PRN PO 09/27/17 21:45 10/27/17 21:44 Dextrose (Dextrose 50% 50ML Syringe) 25-50ML OF 50% DW IV FOR... UD PRN IV 09/27/17 21:45 10/27/17 21:44 Glucagon (Glucagon Inj) 1 mg UD PRN SQ 09/27/17 21:45 10/27/17 21:44 Docusate Sodium (coLACE CAP) 100 mg BID PO 09/29/17 20:00 10/29/17 19:59 10/03/17 09:00 100 MG Magnesium Oxide (Mag-Ox Tab) 400 mg DAILY PO 09/30/17 08:00 10/29/17 19:59 Miscellaneous Information 1 ea UD PRN N/A 09/30/17 11:30 10/30/17 11:29 Ceftazidime/ Avibactam 1.25 gm/ Sodium Chloride 56 ml @ 25 mls/hr Q8H IV 09/30/17 12:00 10/10/17 11:59 10/03/17 04:00 25 MLS/HR Glimepiride (Amaryl Tab) 2 mg BIDM PO 10/01/17 08:00 10/31/17 07:59 10/03/17 08:59 2 MG Potassium Chloride (Klor-Con Tab) 40 meq DAILY PO 10/01/17 08:15 10/31/17 08:14 Prednisone (PredniSONE TAB) 15 mg DAILY PO 10/03/17 08:00 10/27/17 07:59 Allopurinol (Zyloprim Tab) 100 mg DAILY PO 10/03/17 08:00 11/02/17 07:59 10/03/17 09:00 100 MG Objective Vital Signs Date Time Temp Pulse Resp B/P (MAP) Pulse Ox O2 Delivery O2 Flow Rate FiO2 10/03/17 08:00 Nasal Cannula 4.0 10/03/17 00:00 Nasal Cannula 4.0 Humidified Oxygen 10/02/17 23:10 36.9 99 20 130/82 (98) 97 Nasal Cannula 4.0 10/02/17 16:17 36.9 102 20 136/80 (98) 94 Nasal Cannula 4.0 10/02/17 16:00 Nasal Cannula 4.0 Humidified Oxygen Physical Exam General Appearance: WD/WN, no apparent distress, + obese Eyes: normal inspection, EOMI, sclerae normal ENT: normal ENT inspection, pharynx normal Neck: supple, no adenopathy, thyroid normal, trachea midline Respiratory/Chest: chest non-tender, lungs clear, normal breath sounds, no respiratory distress Cardiovascular: regular rate, rhythm, no gallop, no murmur Abdomen: normal bowel sounds, non tender, soft, no organomegaly Extremities: normal capillary refill, + inflammation, + swelling Neurologic/Psychiatric: alert, oriented x 3 Skin: normal color, no rash, + pertinent finding (Dressing in legs intact.) Lymphatic: no adenopathy Laboratory Results Last 24 Hours Test 10/02/17 11:36 10/02/17 17:14 10/02/17 21:13 10/03/17 05:38 Bedside Glucose 196 mg/dl 381 mg/dl 442 mg/dl White Blood Count 12.81 K/uL Red Blood Count 4.16 M/uL Hemoglobin 10.6 g/dL Hematocrit 35.6 % Mean Corpuscular Volume 85.6 fL Mean Corpuscular Hemoglobin 25.5 pg Mean Corpuscular Hemoglobin Concent 29.8 g/dl RDW Standard Deviation 61.9 fL RDW Coefficient of Variation 19.7 % Platelet Count 182 K/uL Mean Platelet Volume 9.9 fL Sodium Level 144 mmol/L Potassium Level 3.4 mmol/L Chloride Level 94 mmol/L Carbon Dioxide Level 40 mmol/L Anion Gap 11.0 mmol/L Blood Urea Nitrogen 109 mg/dl Creatinine 1.85 mg/dl Est Creatinine Clear Calc Drug Dose 41.6 ml/min Estimated GFR () 33.9 Estimated GFR (Non- 29.3 BUN/Creatinine Ratio 58.8 Random Glucose 179 mg/dl Calcium Level 7.5 mg/dl Magnesium Level 1.3 mg/dl Test 10/03/17 08:01 Bedside Glucose 133 mg/dl Assessment and Plan 57 yo poorly controlled diabetic female with heart failure with worsening edema/ fluid retention with worsening infection of leg ulcers and sacral decubitus with slow improvement with hospital care, but now growing highly resistant Klebsiella from sacral decubitus. Patient has been changed to IV Avycaz, and which try for 7 days of IV therapy total.
[2017-10-03] MEDS ORDERED: FLUCONAZOLE 100 MG TAB PO ONE (11:15)
[2017-10-03] MEDS: MAGNESIUM SULFATE 1GM / D5W 1 GM in PREMIXED IN D5W 100 ML IV SCH ×3 (11:52→14:29)
[2017-10-03] MEDS: OXYCODONE HCL IR 5 MG TAB (IMMEDIATE RELEASE) PO PRN (12:04)
[2017-10-03 15:26] VITALS: BP 140/82; PULSE 101; PULSE 11; TEMP 36.8; O2SAT 93
--- NOTE | 2017-10-03 18:20 | Progress Note ---
Subjective Date of Service: Oct 03, 2017. Subjective pt remains focused on somatic complaints, no new focal issues, remains bargaining about allowing care Problem List Medical Problems: (1) Acute renal disease Status: Acute (2) Acute renal failure Status: Acute (3) ELIZABETH (acute kidney injury) Status: Acute (4) ELIZABETH (acute kidney injury) Status: Acute (5) Anemia Status: Acute (6) Cellulitis Status: Acute (7) Cellulitis of both lower extremities Status: Acute (8) CHF (congestive heart failure) Status: Acute (9) CHF (congestive heart failure) Status: Acute (10) Dehydration Status: Acute (11) Fluid overload Status: Acute (12) Hypoxia Status: Acute (13) Pickwickian syndrome Status: Acute (14) Pneumonia Status: Acute (15) Respiratory failure Status: Acute (16) Sacral decubitus ulcer, stage III Status: Acute (17) UTI (urinary tract infection) Status: Acute Review of Systems Constitutional: + weakness, + fatigue Respiratory: + dyspnea on exertion, No cough, No shortness of breath Cardiac: + edema, No chest pain Abdomen: No pain, No nausea, No vomiting, No diarrhea Musculoskeletal: + joint pain, + muscle pain, + swelling Psychiatric: + depression symptoms, + anxiety Objective Vital Signs Date Time Temp Pulse Resp B/P (MAP) Pulse Ox O2 Delivery O2 Flow Rate FiO2 10/03/17 15:26 36.8 101 16 140/82 (101) 93 4.0 10/03/17 08:00 Nasal Cannula 4.0 10/03/17 00:00 Nasal Cannula 4.0 Humidified Oxygen 10/02/17 23:10 36.9 99 20 130/82 (98) 97 Nasal Cannula 4.0 Physical Exam General Appearance: + mild distress, + obese Eyes: normal inspection, sclerae normal Respiratory/Chest: chest non-tender, + decreased breath sounds Cardiovascular: regular rate, rhythm, no murmur Abdomen: normal bowel sounds, non tender, soft Extremities: + pertinent finding (changes of chornic mojgan stasis changes) Neurologic/Psychiatric: alert, oriented x 3 Laboratory Results Last 24 Hours Test 10/02/17 21:13 10/03/17 05:38 10/03/17 08:01 10/03/17 11:37 Bedside Glucose 442 mg/dl 133 mg/dl 137 mg/dl White Blood Count 12.81 K/uL Red Blood Count 4.16 M/uL Hemoglobin 10.6 g/dL Hematocrit 35.6 % Mean Corpuscular Volume 85.6 fL Mean Corpuscular Hemoglobin 25.5 pg Mean Corpuscular Hemoglobin Concent 29.8 g/dl RDW Standard Deviation 61.9 fL RDW Coefficient of Variation 19.7 % Platelet Count 182 K/uL Mean Platelet Volume 9.9 fL Sodium Level 144 mmol/L Potassium Level 3.4 mmol/L Chloride Level 94 mmol/L Carbon Dioxide Level 40 mmol/L Anion Gap 11.0 mmol/L Blood Urea Nitrogen 109 mg/dl Creatinine 1.85 mg/dl Est Creatinine Clear Calc Drug Dose 41.6 ml/min Estimated GFR () 33.9 Estimated GFR (Non- 29.3 BUN/Creatinine Ratio 58.8 Random Glucose 179 mg/dl Calcium Level 7.5 mg/dl Magnesium Level 1.3 mg/dl Test 10/03/17 16:22 Bedside Glucose 340 mg/dl Assessment and Plan 57 F who presents with lower extremity wounds from chronic venous stasis morbid obesity and immobility with acute on chronic renal failure stage IV the patient is uncontrolled diabetes due to her limiting what medications can be used treated and her dietary noncompliance Stage 3 decubitus sacral ulcer and numerous wounds of the LEs secondary to chronic venous stasis - ID due to the resistant organism in her sacral wound infectious disease has changed her antibiotics to Avyase every 8 hours for additional week Acute/chronic diastolic CHF this is been stable and renal function is improved as nephrology is provided oversight with her diuretic therapy We are continuing to hold metazolone and aldactone with Dr Nava oversight Right Wrist Pain, possibly 2/2 to Gout patient says challenges with her prednisone therapy we will rapidly taper this stopping 10/03 and begin allopurinol as her renal function prevents colchicine Chronic hypoxic/hypercarbic respiratory failure /COPD not in exacerbation 4L NC (usually on 3L at home) remains seemingly stable at this time using BiPAP at night Acute on chronic renal failure stage IV disease being followed by law office manager and improved Chronic intertrigo - improving with Diflucan daily. - uncontrolled -diabetes patient has agreed escalation of her doses of Amaryl she now agrees to occasional sliding scale insulin and NPH. but blames her glucose control on her prednisone as she says she does not eat carbohydrates Hypokalemia hypomagnesemia continued to be followed every other day and repleated as able with pt allowance Anemia of chronic disease hemoglobin has been stable around 10 Code: patient requests level 1 full code status
[2017-10-03] MEDS: ZOLPIDEM TARTRATE 5 MG TAB PO SCH (20:31)
[2017-10-04] MEDS: CEFTAZIDIME AVIBACTAM IV SCH ×2 (04:34→11:42)
[2017-10-04] MEDS: SODIUM CHLORIDE 0.9% IV SCH ×2 (04:34→11:42)
[2017-10-04] MEDS: INSULIN ASPART 100 UNITS/ML 3 ML PEN SC SCH ×3 (04:43→13:03)
[2017-10-04 06:32] LABS: CREATININE 1.91 mg/dl (0.60-1.20)
--- NOTE | 2017-10-04 06:45 | Nephrology Progress Note ---
Nephrology Progress Note Date of Service: Oct 04, 2017. Subjective 57 yo female with lymphedema/volume overload/weeping ulcers/jonny/gout/ uncontrolled diabetes. overall, edema is significantly improved on the bumex and diuresing nicely. creatinine also continues to improve. pt complaining of her diffuse muscle pains and wants her oxy. also she is upset about her blood sugars and attributing her uncontrolled sugars to the steroids. having difficulty sleeping from the pain. Objective Date Time Temp Pulse Resp B/P (MAP) Pulse Ox O2 Delivery O2 Flow Rate FiO2 10/04/17 00:00 Nasal Cannula 4.0 Humidified Oxygen 10/03/17 22:52 10/03/17 19:01 Nasal Cannula 4.0 Humidified Oxygen 10/03/17 15:26 36.8 101 16 140/82 (101) 93 4.0 10/03/17 08:00 Nasal Cannula 4.0 Physical Exam: General-aaox3 Eyes-no scleral icterus ENT-mmm Neck-supple Lungs-cta anteriorly Heart-regular Abdomen-bs+/soft/nontender Extremities-+1 edema in dependent areas, tender to touch legs, legs wrapped from chronic wounds Neuro-nonfocal Current Inpatient Medications Medications (Trade) Dose Ordered Sig/Bruno Route Start Time Stop Time Status Last Admin Dose Admin Heparin Sodium (Porcine) (Heparin Sq 5000 Unit/0.5ml) 5,000 unit Q12 SQ 09/19/17 21:00 10/19/17 20:59 Acetaminophen (Tylenol Tab) 650 mg Q4H PRN PO 09/19/17 15:45 10/19/17 15:44 Al Hydrox/Mg Hydrox/Simethicone (Maalox Max Susp) 15 ml Q4H PRN PO 09/19/17 15:45 10/19/17 15:44 Magnesium Hydroxide (Milk Of Magnesia Susp) 30 ml Q12H PRN PO 09/19/17 15:45 10/19/17 15:44 Ondansetron HCl (Zofran Inj) 4 mg Q6H PRN IV 09/19/17 15:45 10/19/17 15:44 Nitroglycerin (Nitrostat Tab) 0.4 mg UD PRN SL 09/19/17 15:45 10/19/17 15:44 Ergocalciferol (Vitamin D Cap) 50,000 interunit Fr@0900 PO 09/20/17 09:00 10/20/17 08:59 09/27/17 08:36 50,000 INTERUNIT Multi-Ingredient Ointment (Eucerin Unscented Cr) 1 appln BID EXT 09/19/17 21:00 10/19/17 20:59 10/01/17 08:19 1 APPLN Zolpidem Tartrate (Ambien Tab) 5 mg HS PO 09/19/17 21:00 10/19/17 20:59 Bumetanide 2 mg/ Syringe 8 ml @ 4 mls/min BID@0900,1700 IV 09/20/17 09:00 10/20/17 08:59 10/03/17 17:14 4 MLS/MIN Heparin Sodium (Porcine) (Heparin 10 Unit/ ml 5 ml Flush) 5 ml PRN PRN FLUSH 09/22/17 18:45 10/22/17 18:44 10/03/17 22:27 5 ML Miconazole Nitrate (Desenex Powder) 1 appln PRN PRN EXT 09/24/17 10:45 10/24/17 10:44 Menthol (Nice Umberto) 1 umberto PRN PRN UMBERTO 09/25/17 13:15 10/25/17 13:14 09/25/17 13:55 24 UMBERTO Insulin Aspart (novoLOG ASPART) SLIDING SCALE G... ACHS SC 09/27/17 22:00 10/27/17 21:59 10/04/17 04:43 7 UNITS Glucose (Glucose 40% Gel) 15-30 GRAMS 15 GRAMS... UD PRN PO 09/27/17 21:45 10/27/17 21:44 Glucose (Glucose Chew Tab) 4-8 Tablets 4 Tabl... UD PRN PO 09/27/17 21:45 10/27/17 21:44 Dextrose (Dextrose 50% 50ML Syringe) 25-50ML OF 50% DW IV FOR... UD PRN IV 09/27/17 21:45 10/27/17 21:44 Glucagon (Glucagon Inj) 1 mg UD PRN SQ 09/27/17 21:45 10/27/17 21:44 Docusate Sodium (coLACE CAP) 100 mg BID PO 09/29/17 20:00 10/29/17 19:59 10/03/17 09:00 100 MG Magnesium Oxide (Mag-Ox Tab) 400 mg DAILY PO 09/30/17 08:00 10/29/17 19:59 Miscellaneous Information 1 ea UD PRN N/A 09/30/17 11:30 10/30/17 11:29 Ceftazidime/ Avibactam 1.25 gm/ Sodium Chloride 56 ml @ 25 mls/hr Q8H IV 09/30/17 12:00 10/10/17 11:59 10/04/17 04:34 25 MLS/HR Glimepiride (Amaryl Tab) 2 mg BIDM PO 10/01/17 08:00 10/31/17 07:59 10/03/17 17:15 2 MG Potassium Chloride (Klor-Con Tab) 40 meq DAILY PO 10/01/17 08:15 10/31/17 08:14 Allopurinol (Zyloprim Tab) 100 mg DAILY PO 10/03/17 08:00 11/02/17 07:59 10/03/17 09:00 100 MG Fluconazole (Diflucan Tab) 100 mg QAM PO 10/04/17 08:00 10/13/17 07:59 Prednisone (PredniSONE TAB) 7.5 mg DAILY PO 10/04/17 08:00 10/05/17 04:00 Last 24 Hours Test 10/03/17 08:01 10/03/17 11:37 10/03/17 16:22 10/04/17 05:43 Bedside Glucose 133 mg/dl 137 mg/dl 340 mg/dl Creatinine 1.91 mg/dl Est Creatinine Clear Calc Drug Dose 40.3 ml/min Estimated GFR () 32.7 Estimated GFR (Non- 28.2 Assessment & Plan [id number] continues to improve. creatinine though has plateaued at 1.9. have diuresed a significant amount of fluid off of her. would decrease bumex dose to 2mg iv daily for now with creatinine plateauing. hypokalemia/hypomag-on potassium supplement and repleting prn. repleted with iv mag yesterday.
[2017-10-04] MEDS: EUCERIN CR 120 GM JAR EXT SCH (08:00)
[2017-10-04] MEDS: ALLOPURINOL 100 MG TAB PO SCH (08:00)
[2017-10-04] MEDS: MAGNESIUM OXIDE 400 MG TAB PO SCH (08:00)
[2017-10-04] MEDS ORDERED: FLUCONAZOLE 100 MG TAB PO SCH (08:00)
[2017-10-04] MEDS: POTASSIUM CHLORIDE 20 MEQ TABCR PO SCH (08:00)
[2017-10-04] MEDS: HEPARIN SOD 5000 UNIT/0.5 ML CARP SQ SCH (09:00)
[2017-10-04] MEDS ORDERED: BUMETANIDE IV 2 MG in SYRINGE 0 ML IV SCH (09:00)
[2017-10-04 09:59] VITALS: BP 129/82; PULSE 92; TEMP 36.5; O2SAT 95
[2017-10-04] MEDS ORDERED: INSULIN GLARGINE SOLOSTAR 100 UNITS/ML 3 ML PEN SC ONE (10:00)
[2017-10-04] MEDS: GLIMEPIRIDE 2 MG TAB PO SCH (11:24)
[2017-10-04] MEDS: ERGOCALCIFEROL 50,000 INTER.UNIT CAP PO SCH (11:25)
[2017-10-04] MEDS: DOCUSATE SODIUM 100 MG CAP PO SCH (11:33)
[2017-10-04] MEDS ORDERED: [UNRECOGNIZED DRUG - CODE] IV (12:48)
[2017-10-04] MEDS ORDERED: AMR2 PO (12:48)
[2017-10-04] MEDS ORDERED: OXYC1TAB3 PO (12:48)
[2017-10-04] MEDS ORDERED: NVLGIPEN SC (12:48)
[2017-10-04] MEDS ORDERED: ALL100 PO (12:48)
--- NOTE | 2017-10-04 12:53 | Discharge Instructions ---
Discharge Instructions Date of Service Oct 04, 2017. Admission Reason for Admission: Chf, Mrsa Lower Extremity Wounds Discharge Discharge Diagnosis / Problem: lower extremity wounds and weakness Discharge Goals Goal(s): Diagnostic testing, Therapeutic intervention Activity Recommendations Activity Level: Assistance Required Therapies: Physical Therapy, Occupational Therapy . Additional Information Patient informed of condition: Yes Advance Directives: No DNR: No Level of Care: Skilled Communicable Disease: Yes (under treatment) Prognosis: Improving Instructions / Follow-Up Instructions / Follow-Up lower extremity wounds: -finish out 8 more doses (7 days total) of antibiotics as recommended by Dr Brown , infectious disease -ongoing local wound care -ongoing follow up with Dr Brown at [facility] wound clinic -BMP early next week CKD -renal function stabilized -follow closely - has a narrow balance between "wet and dry" -BMP early next week, then periodically routinely DM2 -uncontrolled at baseline - last A1c 9.0 -increased sulfonylurea - although if she runs into difficulty with lows, may need to transition purely to insulins due to renal function -novolog added for mealtime coverage, depending on ongoing sugars, may need basal bolus regimen gout -improved -was on short course of high dose steroids here -initiating allopurinol -follow clinically Current Hospital Diet Patient's current hospital diet: Regular Diet Discharge Diet Recommended Diet: Diabetes Type 2 Diet Pending Studies Studies pending at discharge: no Medical Emergencies . Who to Call and When: Medical Emergencies: If at any time you feel your situation is an emergency, please call 911 immediately. . Non-Emergent Contact Non-Emergency issues call your: Primary Care Provider . . "Provider Documentation" section prepared by Santos Gonzalez. . Core Measure Problem Core Measures: None
[2017-10-04 13:14] VITALS: BP 129/82; PULSE 92; TEMP 36.5; O2SAT 95
[2017-10-04] MEDS ORDERED: OXYCODONE HCL IR 5 MG TAB (IMMEDIATE RELEASE) PO ONE (13:30)
[2017-10-04 14:02] VITALS: Ht 167.6 cm; Wt 112.1 kg
--- NOTE | 2017-10-04 20:42 | Discharge Summary ---
Discharge Summary Date of Service Oct 04, 2017. Discharge Summary Admission Date: Sep 19, 2017 at 15:49 Discharge Date: Oct 04, 2017 Discharge Disposition: [facility] facility Principal Diagnosis: venous stasis ulcers Procedures: Last Resulted CBC 10/03/17 05:38 Last Resulted BMP 10/03/17 05:38 10/04/17 05:43 Consultations: ID nephrology wound clinic Medication Reconciliation New Medications: Ceftazidime-Avibactam Sodium (Avycaz 2-0.5 gm) 1 Inj Inj 1.25 GM IV Q8, #8 DOSE 1.25gm iv q8hr x 8 more doses to complete 7 days rx per ID Allopurinol (Allopurinol) 100 Mg Tab 100 MG PO DAILY, #30 TAB Glimepiride (Glimepiride) 2 Mg Tab 2 MG PO BIDM, #30 TAB Insulin Aspart (Novolog Flexpen) 100 Units/Ml Inj 0 UNITS SC ACHS, #1 PEN use as carb coverage/sliding scale per institutional protocols Continued Medications: Bumetanide (Bumex) 1 Mg Tab 1 TAB PO BID Ergocalciferol (Vitamin D 86741 Unit) 50,000 Unit Cap 1 TAB PO FRI Eucerin (Hydrocerin) 360 Appln/120 Gm Cr 1 APPLN EXT BID for 30 Days Fluconazole (Diflucan) 100 Mg Tab 100 MG PO QAM Home O2 Therapy (Oxygen) Gas 3 LITERS NA CONTINOUS Metolazone (Metolazone) 5 Mg Tab 5 MG PO TTH Take 30 min prior to bumex Oxycodone Immediate Rel Tab (Roxicodone Ir) 5 Mg Tab 5 MG PO Q6H PRN for Pain, #30 TAB (This prescription has been renewed) Spironolactone (Aldactone) 25 Mg Tab 25 MG PO QD Zolpidem Tartrate (Ambien) 5 Mg Tab 1 TAB PO HS [Clotrimazole 45GM] () 1 DOSE TOP BID PRN for RASH Discontinued Medications: Cefepime Hcl (Cefepime) 2 Gm Inj 2 GM IV 1200 Daptomycin (Daptomycin) 500 Mg Inj 650 MG IV 1200 Glimepiride (Glimepiride) 2 Mg Tab 1 TAB PO QAM Discharge Exam Physical Exam: General Appearance: no apparent distress Eyes: EOMI ENT: hearing grossly normal Neck: trachea midline Respiratory/Chest: no respiratory distress, no accessory muscle use Extremities: normal inspection, + pertinent finding (RLE wrapped no erythema ) Neurologic/Psychiatric: pole tester II-XII nml as tested, alert, normal mood/affect Skin: normal color, warm/dry Hospital Course 57 F who presents with lower extremity wounds from chronic venous stasis morbid obesity and immobility with acute on chronic renal failure stage IV the patient is uncontrolled diabetes due to her limiting what medications can be used treated and her dietary noncompliance Stage 3 decubitus sacral ulcer and numerous wounds of the LEs secondary to chronic venous stasis - ID due to the resistant organism in her sacral wound infectious disease has changed her antibiotics to Avyase x 8 more doses to complete 7 days total treatment, then ongoing f/u w Dr Brown/wound clinic for ongoing recommendations and treatment Acute/chronic diastolic CHF this is been stable and renal function is improved - diuretics were held during hospital stay, resumed at discharge in anticipation of her returning to prior dietary habits, but would follow BMP frequently (next weekly and then ~weekly for foreseeable future, more often if clinically warranted) and low threshold to hold diuretics again if worsening BMP. currently on the dry side of euvolemic Right Wrist Pain, possibly 2/2 to Gout - improved on prednisone, now stopped. continue allopurinol for the time being Chronic hypoxic/hypercarbic respiratory failure /COPD and cor pulmonale not in exacerbation 4L NC (usually on 3L at home) remains seemingly stable at this time using BiPAP at night Acute on chronic renal failure stage IV disease - follow as above Chronic intertrigo - improving with Diflucan daily. - uncontrolled -increase in meds as above, mealtime insulin --> transition to basal bolus regimen as she allows Hypokalemia hypomagnesemia - follow periodically Anemia of chronic disease hemoglobin has been stable around 10 Code: patient requests level 1 full code status Total Time Spent: Greater than 30 minutes This includes examination of the patient, discharge planning, medication reconciliation, and communication with other providers. Discharge Instructions Please refer to the electronic Patient Visit Report (Discharge Instructions) for additional information. Additional Copies To [facility]
[2017-10-05] MEDS ORDERED: INSULIN GLARGINE SOLOSTAR 100 UNITS/ML 3 ML PEN SC SCH (08:00)
== END 2017-10-04 13:57 | DRG 291 ==
LOC: C.EDB 10:45 → C.2E 15:49 → EDBEDREQ 16:22 → ENRESERV 16:55 → C.MS4W 09-22 15:52
PROVIDERS: ADMIT Internal Medicine; ATTEND Internal Medicine
PROC: 0HDKXZZ Extraction of Right Lower Leg Skin, External Approach (ICD-10-PCS; principal; 2017-09-20)
DX: I13.0 Hypertensive heart and chronic kidney disease with heart failure and stage 1 through stage 4 chronic kidney disease, or unspecified chronic kidney disease (principal); L89.153 Pressure ulcer of sacral region, stage 3; I50.33 Acute on chronic diastolic (congestive) heart failure; J96.11 Chronic respiratory failure with hypoxia; N18.4 Chronic kidney disease, stage 4 (severe); J96.12 Chronic respiratory failure with hypercapnia; N17.9 Acute kidney failure, unspecified; E66.2 Morbid (severe) obesity with alveolar hypoventilation; E87.1 Hypo-osmolality and hyponatremia; L03.311 Cellulitis of abdominal wall; Z68.41 Body mass index [BMI] 40.0-44.9, adult; R18.8 Other ascites; I27.81 Cor pulmonale (chronic); I50.813 Acute on chronic right heart failure; L89.892 Pressure ulcer of other site, stage 2; L89.619 Pressure ulcer of right heel, unspecified stage; L89.629 Pressure ulcer of left heel, unspecified stage; B96.1 Klebsiella pneumoniae [K. pneumoniae] as the cause of diseases classified elsewhere; E11.22 Type 2 diabetes mellitus with diabetic chronic kidney disease; E11.65 Type 2 diabetes mellitus with hyperglycemia; E11.622 Type 2 diabetes mellitus with other skin ulcer; D50.9 Iron deficiency anemia, unspecified; D63.1 Anemia in chronic kidney disease; J44.9 Chronic obstructive pulmonary disease, unspecified; E83.42 Hypomagnesemia; L30.4 Erythema intertrigo; M10.9 Gout, unspecified; M25.531 Pain in right wrist; E87.6 Hypokalemia; Z79.2 Long term (current) use of antibiotics; Z79.899 Other long term (current) drug therapy; Z91.11 Patient's noncompliance with dietary regimen; Z87.891 Personal history of nicotine dependence; Z99.81 Dependence on supplemental oxygen; Z88.0 Allergy status to penicillin; Z88.1 Allergy status to other antibiotic agents; Z91.14 Patient's other noncompliance with medication regimen; Z91.19 Patient's noncompliance with other medical treatment and regimen

== ENCOUNTER → 2017-10-08 | Outpatient (CLI) | payer OTHER ==
[~2017-10-08] MED LIST changes: +ALL100 PO; -CEFE2INJ2 IV; +CLOTRIMAZOLE 45 GM TOP; -DAPT500I IV; -DFL50 PO; -DIPH25CA5 PO; +FLUC100T4 PO; -LTRCR45 EXT; +NVLGIPEN SC; +OXYC1TAB3 PO; -RXC5 PO; +[UNRECOGNIZED DRUG - CODE] IV
[2017-10-08 10:08] LABS: HEMATOCRIT 33.4 % (37-47); HEMOGLOBIN 9.7 g/dL (12.0-16.0); MEAN CELL VOLUME 88.1 fL (80-100); MEAN CORPUSCULAR HEMOGLOBIN 25.6 pg (25-34); PLATELET COUNT 126 K/uL (130-400); RED CELL DISTRIBUTION WIDTH CV 19.1 % (11.5-14.5); RED CELL DISTRIBUTION WIDTH SD 61.7 fL (36.4-46.3); WHITE BLOOD COUNT 8.97 K/uL (4.8-10.8)
[2017-10-08 10:32] LABS: ALBUMIN 2.6 gm/dl (3.4-5.0); ALT/SGPT 7 U/L (12-78); AST/SGOT 6 U/L (15-37); BLOOD UREA NITROGEN 73 mg/dl (7-18); CALCIUM 8.9 mg/dl (8.5-10.1); CARBON DIOXIDE 38 mmol/L (21-32); CREATININE 1.44 mg/dl (0.60-1.20); GLUCOSE 67 mg/dl (70-99); POTASSIUM 3.3 mmol/L (3.5-5.1); SODIUM 139 mmol/L (136-145); URIC ACID 8.9 mg/dl (2.6-7.2)
[2017-10-08 10:33] LABS: EOS % 2.2 %; IG# 0.02 K/uL (0.00-0.02); LYMPH ABS # 1.17 K/uL (1.2-3.4); NEUT % 74.6 %; NEUT ABS # 6.68 K/uL (1.4-6.5)
[2017-10-08 10:43] LABS: ALKALINE PHOSPHATASE 57 U/L (45-117)
[2017-10-08 11:43] LABS: HEMOGLOBIN A1C 7.8 % (4.5-5.6)
== END ==
LOC: C.LABUPNIT 08:53
PROVIDERS: ATTEND Nurse Practitioner Family

== ENCOUNTER → 2017-10-15 | Outpatient (CLI) | payer OTHER ==
[2017-10-15 09:32] LABS: BLOOD UREA NITROGEN 73 mg/dl (7-18); CALCIUM 9.8 mg/dl (8.5-10.1); CARBON DIOXIDE 38 mmol/L (21-32); GLUCOSE 235 mg/dl (70-99); POTASSIUM 4.2 mmol/L (3.5-5.1); SODIUM 138 mmol/L (136-145); URIC ACID 6.8 mg/dl (2.6-7.2)
== END | disposition home or self-care (01) ==
LOC: C.LABUPNIT 09:04
PROVIDERS: ATTEND Nurse Practitioner Family
DX: M10.9 Gout, unspecified (principal)

== ENCOUNTER → 2017-10-22 | Outpatient (CLI) | payer OTHER ==
[~2017-10-22] MED LIST changes: +ACET-1311 PO; +ALLO100T PO; +CLOT1CRE80 TOP; +DOCU-94 PO; +DOXY100T PO; +GLIM2TAB2 PO; +HPRF5 IV; +IMIP1INJ5 IV; +IPRASOL4 INH; +LDDP5 TD; +MCTP/85 TOP; +MULTTAB58 PO; +NVLGI/PEN SQ; +POTA10CA28 PO; +RBTUDL5 PO; +SALI1SPR3 NAE; +SKINCRE34 TOP; -[UNRECOGNIZED DRUG - CODE] IV
[2017-10-22 08:45] LABS: ALBUMIN 2.4 gm/dl (3.4-5.0); AST/SGOT 7 U/L (15-37); BLOOD UREA NITROGEN 85 mg/dl (7-18); CALCIUM 8.9 mg/dl (8.5-10.1); CARBON DIOXIDE 36 mmol/L (21-32); CREATININE 1.77 mg/dl (0.60-1.20); GLUCOSE 213 mg/dl (70-99); SODIUM 135 mmol/L (136-145)
[2017-10-22 08:50] LABS: ALKALINE PHOSPHATASE 105 U/L (45-117); ALT/SGPT 9 U/L (12-78); TOTAL PROTEIN 6.8 gm/dl (6.4-8.2)
== END | disposition home or self-care (01) ==
LOC: C.LAB 08:10
PROVIDERS: ATTEND Nurse Practitioner Family
DX: L89.153 Pressure ulcer of sacral region, stage 3 (principal); E08.59 Diabetes mellitus due to underlying condition with other circulatory complications

== ENCOUNTER → 2017-10-29 | Outpatient (CLI) | payer OTHER ==
[~2017-10-29] MED LIST changes: -LDDP5 TD
[2017-10-29 10:24] LABS: BLOOD UREA NITROGEN 74 mg/dl (7-18); CALCIUM 8.9 mg/dl (8.5-10.1); CARBON DIOXIDE 35 mmol/L (21-32); CREATININE 1.55 mg/dl (0.60-1.20); GLUCOSE 213 mg/dl (70-99); POTASSIUM 3.5 mmol/L (3.5-5.1); SODIUM 134 mmol/L (136-145)
== END ==
LOC: C.LABUPNIT 09:18
PROVIDERS: ATTEND Nurse Practitioner Family
DX: N18.3 Chronic kidney disease, stage 3 (moderate) (principal)

== ENCOUNTER → 2017-10-30 | Outpatient (CLI) | payer OTHER ==
[2017-10-30 10:53] LABS: MEAN CORPUSCULAR HGB CONC 31.4 g/dl (32-36)
[2017-10-30 11:12] LABS: HEMATOCRIT 31.2 % (37-47); HEMOGLOBIN 9.8 g/dL (12.0-16.0); MEAN CELL VOLUME 85.2 fL (80-100); MEAN CORPUSCULAR HEMOGLOBIN 26.8 pg (25-34); RED CELL DISTRIBUTION WIDTH CV 19.7 % (11.5-14.5); RED CELL DISTRIBUTION WIDTH SD 61.1 fL (36.4-46.3); WHITE BLOOD COUNT 16.01 K/uL (4.8-10.8)
[2017-10-30 11:20] LABS: BASO % 0.2 %; BASO ABS # 0.03 K/uL (0-0.2); IG# 0.06 K/uL (0.00-0.02); LYMPH % 4.6 %; LYMPH ABS # 0.73 K/uL (1.2-3.4); MEAN PLATELET VOLUME 10.7 fL (7.4-10.4); MONO % 6.4 %; MONO ABS # 1.03 K/uL (0.11-0.59); NEUT % 88.4 %; NEUT ABS # 14.16 K/uL (1.4-6.5); PLATELET COUNT 121 K/uL (130-400)
== END | disposition home or self-care (01) ==
LOC: C.LABUPNIT 10:32
PROVIDERS: ATTEND Nurse Practitioner Family
DX: J18.9 Pneumonia, unspecified organism (principal)

== ENCOUNTER 2017-10-31 03:59 | Inpatient (IN) | payer OTHER ==
[2017-10-31] VITALS (9 sets, daily range): BP systolic 91–114; BP diastolic 53–82; PULSE 91–114; TEMP 36.5–36.9; O2SAT 92–96; Ht 167.6 cm; Wt 123.8 kg
[~2017-10-31] VITALS: Ht 167.6 cm; Wt 123.8 kg
[~2017-10-31 03:59] MED LIST changes: -ACET-1311 PO; -ALLO100T PO; -CLOT1CRE80 TOP; -DOCU-94 PO; -GLIM2TAB2 PO; -HPRF5 IV; -IMIP1INJ5 IV; -IPRASOL4 INH; -MCTP/85 TOP; -MULTTAB58 PO; -NVLGI/PEN SQ; -POTA10CA28 PO; -RBTUDL5 PO; -SALI1SPR3 NAE; -SKINCRE34 TOP
[2017-10-31] MEDS ORDERED: SODIUM CHLORIDE 0.9% 1000ML 1,000 ML IV STA (04:43)
[2017-10-31] MEDS ORDERED: SODIUM CHLORIDE 0.9% 500ML 500 ML IV STA (04:43)
--- NOTE | 2017-10-31 04:47 | EMERGENCY ROOM VISIT NOTE ---
History Report prepared by Evanibmckenna: Christina Laughlin Under the Supervision of: Dr. Mervat Mcgowan M.D. First contact with patient: 04:06 Chief Complaint: SHORTNESS OF BREATH Stated Complaint: SHORT OF BREATH Nursing Triage Summary: according to EMS and halfway documentation-patient was diagnosed with pneumonia a few days ago, was started on doxycycline-was supposed to be started on an IV antibiotic via her PICC line today but that was not started at the halfway for reasons unknown patient is from [facility], short of breath, low spo2 readings and tachypneic upon initial assessment History of Present Illness The patient is a 57 year old female who presents to the Emergency Room with complaints of worsening shortness of breath for the past few days. She was brought to the ED via EMS from [facility], where she currently resides. The patient was diagnosed with pneumonia recently and was started on Doxycycline. She was supposed to be given IV antibiotics via her PICC line, but has not yet received them from the [facility] for unknown reasons. She has low O2 readings and was tachypneic upon arrival to the ED. The patient complains of nasal congestion and states that is worsening her breathing. She has a productive cough with clear mucous and has experienced intermittent fevers. She has a history of DVT in her lower leg several years ago. She denies any recent difficulty swallowing. 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 A total of 10 systems reviewed and were otherwise negative. Past Medical & Surgical Medical Problems: (1) Acute respiratory failure (2) CHF (congestive heart failure) (3) Chills (4) Femur fracture, left (5) Hyponatremia (6) Hypoxia (7) Leg swelling (8) Leg ulcer (9) Leukocytosis (10) MRSA (methicillin resistant Staphylococcus aureus) infection (11) MRSA lower extremity wounds (12) Pneumonia (13) Sacral decubitus ulcer, stage IV Family History No pertinent family history Social History Smoking Status: Former Smoker Drug Use: none Marital Status: single, Housing Status: halfway Occupation Status: disabled Current/Historical Medications Scheduled Allopurinol (Zyloprim), 200 MG PO DAILY Bumetanide (Bumex), 1 TAB PO BID Docusate Sodium (Colace), 1 CAP PO HS Doxycycline Hyclate (Doxycycline Hyclate), 1 TAB PO BID Ergocalciferol (Vitamin D 02069 Unit), 1 TAB PO WK Eucerin (Eucerin), 1 APPLN TOP BID Fluconazole (Diflucan), 100 MG PO Q2D Glimepiride (Glimepiride), 3 TAB PO DAILY Heparin Sod (Porcine) (Heparin 100 Unit/Ml 5ML Flush), 5 ML IV BID Home O2 Therapy (Oxygen), 4 LITERS NA CONTINOUS Imipenem-Cilastatin (Primaxin Iv), 300 MG IV Q6 Insulin Aspart (Novolog Flexpen), UNITS SQ ACHS Metolazone (Metolazone), 5 MG PO daily on tuesdays Miconazole Nitrate (Desenex Shake Powder), 1 APPLN TOP BID Multiple Vitamin (Multivitamin), 1 TAB PO DAILY Potassium Chloride (Micro-K Ext Rel), 10 MEQ PO DAILY Spironolactone (Aldactone), 25 MG PO QD Scheduled PRN Acetaminophen (Tylenol), 650 MG PO Q8 PRN for temp > 101 Clotrimazole (Topical) (Anti-Fungal), 1 APPLN TOP Q12 PRN for rash Guaifenesin (Robitussin), 10 ML PO Q6 PRN for cough/congestion Ipratropium-Albuterol (Duoneb), 1 TREATMENT INH Q4H PRN for cough/wheeze Oxycodone Immediate Rel Tab (Roxicodone Ir), 5 MG PO Q6H PRN for Pain Saline (Saline Nasal [place]), 2 SPRAYS ARTHUR Q8 PRN for dry nasal passage Allergies Coded Allergies: Vancomycin (Verified Allergy, Severe, ANAPHYLAXIS, 10/31/17) pt began shaking,face and neck bright red rash.o2 saturation dropping to 84% on 15lnrb Ampicillin (Verified Allergy, Mild, RASH, 10/31/17) Clindamycin (Verified Allergy, Mild, RASH, 10/31/17) Linezolid (Verified Allergy, Mild, RASH, 10/31/17) Penicillins (Verified Allergy, Mild, RASH, 10/31/17) Ciprofloxacin (Verified Adverse Reaction, Mild, MUSCLE ACHES, 10/31/17) muscle aches Methimazole (Verified Adverse Reaction, Mild, headache, 10/31/17) headache Nystatin (Verified Adverse Reaction, Mild, nausea, abd pain, kidney pain, 10/31/17) nausea, abd pain,kidney pain Physical Exam Vital Signs Date Time Temp Pulse Resp B/P (MAP) Pulse Ox O2 Delivery O2 Flow Rate FiO2 10/31/17 06:44 114 92 60 10/31/17 06:24 116 24 142/66 90 Oxymask 5.0 10/31/17 05:25 118 28 118/64 92 Oxymask 5.0 10/31/17 04:24 90 Oxymask 5.0 10/31/17 04:21 122 24 88 Oxymask 5.0 10/31/17 04:21 122 10/31/17 04:17 123 10/31/17 04:16 37.4 123 116/84 70 Nasal Cannula 4.0 10/31/17 04:16 70 Nasal Cannula 4.0 Physical Exam Vital signs reviewed. General: Chronically ill-appearing 57 year old female, in no significant distress. HEENT: No scleral icterus, PERRLA, neck supple. Atraumatic. Cardiovascular: Tachycardic heart rate, regular rhythm, no extra sounds. Pulmonary: Course breath sounds bilaterally. Borderline oxygenation on oxygen mask, increased work of breathing. Abdomen: Indwelling Lerner catheter. Abdomen is obese, soft, nontender, nondistended, positive bowel sounds. Musculoskeletal: Extensive bandaging to bilateral LE. No significant swelling appreciated. Neurologic: Patient awake alert and oriented x 3, equal strength in all 4 extremities. Cranial nerves 2 through 12 grossly intact. Skin: Warm, dry, no rash Medical Decision & Procedures ER Provider Diagnostic Interpretation: Radiology results as stated below per my review and radiologist interpretation: CHEST ONE VIEW PORTABLE CLINICAL HISTORY: cough, SOB dyspnea COMPARISON STUDY: 10/01/2017 FINDINGS: Mild increase in cardiac size. Increased prominence of the parenchymal and interstitial markings throughout both hemithoraces. No regions of focal consolidation. Central catheter remains in superior vena cava. IMPRESSION: Cardiomegaly with findings of diffuse bilateral parenchymal infiltrative change versus developing pulmonary edema. The above report was generated using voice recognition software. It may contain grammatical, syntax or spelling errors. Electronically signed by: Parminder Pineda M.D. 10/31/2017 6:47 AM Laboratory Results Test 10/31/17 04:15 10/31/17 05:00 10/31/17 05:01 10/31/17 05:14 Prothrombin Time 13.9 SECONDS (9.0-12.0) Prothromb Time International Ratio 1.3 (0.9-1.1) Activated Partial Thromboplast Time 30.1 SECONDS (21.0-31.0) Partial Thromboplastin Ratio 1.2 Magnesium Level 1.6 mg/dl (1.8-2.4) Total Bilirubin 1.1 mg/dl (0.2-1) Direct Bilirubin 0.6 mg/dl (0-0.2) Aspartate Amino Transf (AST/SGOT) 23 U/L (15-37) Alanine Aminotransferase (ALT/SGPT) 12 U/L (12-78) Alkaline Phosphatase 94 U/L (45-117) Total Creatine Kinase 18 U/L (26-192) Creatine Kinase MB < 0.5 ng/ml (0.5-3.6) Creatine Kinase MB Ratio (0-3.0) Pro-B-Type Natriuretic Peptide 29362 pg/ml (0-900) Total Protein 7.4 gm/dl (6.4-8.2) Albumin 2.6 gm/dl (3.4-5.0) Procalcitonin 1.38 ng/ml (0-0.5) Bedside Hemoglobin 10.9 g/dl (12.0-16.0) Bedside Hematocrit 32 % (37-47) Bedside Sodium 129 mEq/L (135-144) Bedside Potassium 4.5 mEq/L (3.3-5.0) Bedside Chloride 83 mEq/L (101-112) Bedside Total CO2 32 mEq/l (24-31) Bedside Blood Urea Nitrogen 91 mg/dl (7-18) Bedside Creatinine 2.1 mg/dl (0.6-1.3) Bedside Glucose (other) 272 mg/dl (70-99) Bedside Ionized Calcium ([place]) 1.03 mmol/l (1.12-1.32) Influenza Type A (RT-PCR) Neg for Influ A (NEG) Influenza Type B (RT-PCR) Neg for Influ B (NEG) Bedside Troponin I 0.050 ng/ml (0-0.045) Bedside Lactic Acid Venous 1.29 mmol/L (0.90-1.70) Test 10/31/17 05:15 Urine Color DK YELLOW Urine Appearance TURBID (CLEAR) Urine pH 5.0 (4.5-7.5) Urine Specific [place] 1.017 (1.000-1.030) Urine Protein 3+ (NEG) Urine Glucose (UA) NEG (NEG) Urine Ketones NEG (NEG) Urine Occult Blood 3+ (NEG) Urine Nitrite NEG (NEG) Urine Bilirubin NEG (NEG) Urine Urobilinogen NEG (NEG) Urine Leukocyte Esterase LARGE (NEG) Urine WBC (Auto) >30 /hpf (0-5) Urine RBC (Auto) 0-4 /hpf (0-4) Urine Hyaline Casts (Auto) 5-10 /lpf (0-5) Urine Epithelial Cells (Auto) >30 /lpf (0-5) Urine Bacteria (Auto) 3+ (NEG) Urine Pathogenic Casts 1-5 GRANULAR CASTS /lpf (0) Urine Yeast (Auto) (NONE PRSENT) Laboratory results per my review. Medications Administered Medications (Trade) Dose Ordered Sig/Bruno Route Start Time Stop Time Status Last Admin Dose Admin Sodium Chloride 500 ml @ 999 mls/hr Q31M STAT IV 10/31/17 04:43 10/31/17 05:13 DC 10/31/17 04:43 999 MLS/HR Sodium Chloride 1,000 ml @ 125 mls/hr Q8H STAT IV 10/31/17 04:43 10/31/17 06:33 DC 10/31/17 04:43 125 MLS/HR Ceftriaxone Sodium (Rocephin Inj) 1 gm NOW STAT IV 10/31/17 05:45 10/31/17 05:47 DC 10/31/17 05:58 1 GM Magnesium Sulfate (Magnesium Sulfate) 1 gm NOW STAT IV 10/31/17 05:56 10/31/17 05:57 DC 10/31/17 06:39 1 GM Furosemide (Lasix Inj) 40 mg NOW STAT IV 10/31/17 06:32 10/31/17 06:34 DC 10/31/17 06:40 40 MG Fluconazole (Diflucan Tab) 100 mg Q2D PO 10/31/17 07:00 11/10/17 06:59 11/02/17 09:22 100 MG Oxycodone HCl (Roxicodone Immediate Rel Tab) 5 mg Q6H PRN PO 10/31/17 07:00 11/14/17 06:59 11/02/17 00:03 5 MG ECG Per My Interpretation Indication: SOB/dyspnea Rate (beats per minute): 116 Rhythm: sinus tachycardia (with frequent PVC, areas of 2 consecutive PVC's) Findings: other (Right [place] Deviation) ED Course 0442: Past medical records reviewed. The patient was evaluated in room A12B. A complete history and physical examination was performed. 0443: NSS 1000 ml @ 125 mls/hr IV, NSS 500 ml @ 999 mls/hr IV. 0545: Rocephin 1 gm IV. 0547: I reevaluated the patient. I discussed my recommendation she remain in the hospital for further evaluation and management and she verbalized complete understanding and agreement. 0556: Magnesium Sulfate 1 gm IV. 0632: Lasix 40 mg IV. 0637: I discussed the patients case with Dr. Bustamante [facility] Hospitalist. The patient will be further evaluated. Medical Decision Differential diagnosis: Etiologies such as infections, reactive airway disease, pneumonia, pneumothorax , COPD, CHF, cardiac ischemia, pulmonary embolism, musculoskeletal, gastrointestinal, as well as others were entertained. This pt was evaluated and appeared to be in no significant distress. O2 saturations are borderline on n/c O2. She was converted to an oxymask with improvement. CXR reveals evidence of CHF and PNA to my interpretation. BC were obtained. IVF had initially been started and were d/c. Pt was given Lasix 40 mg IV. Bipap was ordered but pt did not tolerate it well. Pt was given IV ceftriaxone for PNA and UTI coverage, although this is not likely adequate. She is noted to have a leukocytosis and UTI. She has an extensive ID history and allergy profile. Further treatment will be deferred to medicine service. Clinically the pt is improved. She will be evaluated by the hospitalist service for further management. Medication Reconcilliation Current Medication List: was personally reviewed by me Blood Pressure Screening Patient's blood pressure: Elevated blood pressure Blood pressure disposition: Elevated BP felt to be situational Consults Time Called: 634 Consulting Physician: Dr. Bustamante [facility] Hospitalist Returned Call: 06 I discussed the patients case with Dr. Bustamante [facility] Hospitalist. The patient will be further evaluated. Impression Primary Impression: Pneumonia Additional Impressions: CHF (congestive heart failure) UTI (urinary tract infection) due to urinary indwelling Lerner catheter Critical Care I have personally spent greater than 45 minutes of critical care time in the direct management of this patient. This includes bedside care, interpretation of diagnostic studies, and testing, discussion with consultants, patient, and family members, and other required patient management activities. This 45 minutes is in excess of all separately billable procedures. Scribe Attestation The scribe's documentation has been prepared under my direction and personally reviewed by me in its entirety. I confirm that the note above accurately reflects all work, treatment, procedures, and medical decision making performed by me. Departure Information Dispostion Being Evaluated By Hospitalist Referrals Dalia Adame (PCP) Patient Instructions My [facility] Problem Qualifiers
[2017-10-31 04:56] LABS: BASO % 0.1 %; BASO ABS # 0.02 K/uL (0-0.2); HEMATOCRIT 33.7 % (37-47); HEMOGLOBIN 10.3 g/dL (12.0-16.0); IG# 0.09 K/uL (0.00-0.02); LYMPH % 3.2 %; LYMPH ABS # 0.61 K/uL (1.2-3.4); MEAN CORPUSCULAR HEMOGLOBIN 26.3 pg (25-34); MEAN CORPUSCULAR HGB CONC 30.6 g/dl (32-36); MEAN PLATELET VOLUME 11.8 fL (7.4-10.4); MONO % 5.4 %; MONO ABS # 1.04 K/uL (0.11-0.59); NEUT % 90.8 %; NEUT ABS # 17.37 K/uL (1.4-6.5); PLATELET COUNT 162 K/uL (130-400); RED CELL DISTRIBUTION WIDTH CV 19.5 % (11.5-14.5); RED CELL DISTRIBUTION WIDTH SD 60.6 fL (36.4-46.3); WHITE BLOOD COUNT 19.13 K/uL (4.8-10.8)
[2017-10-31 05:05] LABS: ALBUMIN 2.6 gm/dl (3.4-5.0); ALT/SGPT 12 U/L (12-78); AST/SGOT 23 U/L (15-37); BLOOD UREA NITROGEN 83 mg/dl (7-18); CALCIUM 9.1 mg/dl (8.5-10.1); CARBON DIOXIDE 30 mmol/L (21-32); CREATININE 1.91 mg/dl (0.60-1.20); GLUCOSE 263 mg/dl (70-99); POTASSIUM 4.7 mmol/L (3.5-5.1); SODIUM 128 mmol/L (136-145)
[2017-10-31 05:06] LABS: INR 1.3 (0.9-1.1); PTT PATIENT 30.1 SECONDS (21.0-31.0)
[2017-10-31 05:11] LABS: ISTAT CREATININE 2.1 mg/dl (0.6-1.3); ISTAT IONIZED CALCIUM 1.03 mmol/l (1.12-1.32); ISTAT POTASSIUM 4.5 mEq/L (3.3-5.0)
[2017-10-31] MEDS ORDERED: DOCU-94 PO (05:17)
[2017-10-31] MEDS ORDERED: CLOT1CRE80 TOP (05:18)
[2017-10-31] MEDS ORDERED: ALLO100T PO (05:20)
[2017-10-31] MEDS ORDERED: ACET-1311 PO (05:20)
[2017-10-31] MEDS ORDERED: SALI1SPR3 NAE (05:23)
[2017-10-31] MEDS ORDERED: MULTTAB58 PO (05:26)
[2017-10-31] MEDS ORDERED: POTA10CA28 PO (05:26)
[2017-10-31 05:28] LABS: ALKALINE PHOSPHATASE 94 U/L (45-117); CKMB < 0.5 ng/ml (0.5-3.6); TOTAL PROTEIN 7.4 gm/dl (6.4-8.2)
[2017-10-31] MEDS ORDERED: SKINCRE34 TOP (05:34)
[2017-10-31] MEDS ORDERED: IPRASOL4 INH (05:34)
[2017-10-31] MEDS ORDERED: GLIM2TAB2 PO (05:35)
[2017-10-31] MEDS ORDERED: RBTUDL5 PO (05:37)
[2017-10-31] MEDS ORDERED: HPRF5 IV (05:42)
[2017-10-31] MEDS ORDERED: IMIP1INJ5 IV (05:45)
[2017-10-31] MEDS ORDERED: CEFTRIAXONE SOD INJ 1 GM ADDVIAL IV STA (05:45)
[2017-10-31] MEDS ORDERED: MCTP/85 TOP (05:46)
[2017-10-31] MEDS ORDERED: NVLGI/PEN SQ (05:51)
[2017-10-31] MEDS ORDERED: MAGNESIUM SULFATE 1GM / D5W 1 GM BAG IV STA (05:56)
[2017-10-31 06:21] LABS: INFLUENZA A PCR Neg for Influ A (NEG); INFLUENZA B PCR Neg for Influ B (NEG)
[2017-10-31] MEDS ORDERED: FUROSEMIDE 40 MG/4 ML VIAL IV STA (06:32)
--- NOTE | 2017-10-31 06:48 | DIAGNOSTIC IMAGING REPORT ---
CHEST ONE VIEW PORTABLE CLINICAL HISTORY: cough, SOB dyspnea COMPARISON STUDY: 10/01/2017 FINDINGS: Mild increase in cardiac size. Increased prominence of the parenchymal and interstitial markings throughout both hemithoraces. No regions of focal consolidation. Central catheter remains in superior vena cava. IMPRESSION: Cardiomegaly with findings of diffuse bilateral parenchymal infiltrative change versus developing pulmonary edema. The above report was generated using voice recognition software. It may contain grammatical, syntax or spelling errors. Electronically signed by: Parminder Pineda M.D. 10/31/2017 6:47 AM Dictated Date/Time: 10/31/2017 6:46 AM
[2017-10-31] MEDS ORDERED: ACETAMINOPHEN 325 MG TAB PO PRN (07:00)
[2017-10-31] MEDS ORDERED: MAGNESIUM HYDROXIDE SUSP 30 ML UDC PO PRN (07:00)
[2017-10-31] MEDS ORDERED: ONDANSETRON INJ 2 MG/ML 2 ML VIAL IV PRN (07:00)
[2017-10-31] MEDS ORDERED: ALUMINUM/MAGNESIUM/SIMETH (MAALOX MAX) 30 ML UDC PO PRN (07:00)
[2017-10-31] MEDS ORDERED: POLYETHYLENE (MIRALAX) 17 GM PACK PO PRN (07:00)
--- NOTE | 2017-10-31 07:06 | History and Physical ---
History & Physical Date & Time of Service: Oct 31, 2017 at 06:45 Chief Complaint: Short Of Breath Primary Care Physician: Dalia Adame History of Present Illness Source: patient, hospital records 57 y/o F Hx COPD - chronic resp failure, CKD III, chronic diastolic CHF, anemia , gout, multiple diabetic ulcers, decubitus ulcer, ROHAN, DM II, morbid obesity. Pt presents with SOB, cough, congestion and fevers. She was diagnosed with PNM a few days ago, started on PO Doxycycline and was scheduled to receive IV Primaxin this AM. On arrival to the ER the pt is afebrile, however, she is tachypneic and requiring BiPAP to maintain oxygenation. She denies CP, N/V, dysuria. Initial labs are notable for a (+) UA, leukocytosis and hyperglycemia. A CXR reveals a LLL infiltrate. the pt has had several recent admissions due to infections including UTIs, cellulitis and pneumonia. She has multiple antibiotic allergies. Past Medical/Surgical History 1. Sacral decubitus ulcer, stage 3 2. Chronic right sided heart failure/cor pulmonale 3. Chronic diastolic heart failure 4. Stage IV CKD due to DM, baseline Cr about 2 5. DM type II, poorly controlled 6. Chronic Lerner catheter usage 7. Anemia secondary to iron deficiency and CKD - baseline Hb 9-10 8. Morbid obesity 9. Chronic right heel wound 10. Chronic right achilles wound 11. ROHAN on BIPAP at HS 12. Chronic hypoxic/hypercarbic respiratory failure on home O2 13. COPD 14. Gout Surgical: 1. Multiple PICC lines 2. Multiple debridements of various wounds of LEs 3. Left hip fracture s/p ORIF 4. IVC filter 5. Family History No pertinent family history Mother of [place] - 70's Father, siblings - History of CAD Social History Currently at [facility] for rehab Smoking Status: Former Smoker Drug Use: none Marital Status: single, Housing status: [facility] Occupational Status: disabled Allergies Coded Allergies: Vancomycin (Verified Allergy, Severe, ANAPHYLAXIS, 10/31/17) pt began shaking,face and neck bright red rash.o2 saturation dropping to 84% on 15lnrb Ampicillin (Verified Allergy, Mild, RASH, 10/31/17) Clindamycin (Verified Allergy, Mild, RASH, 10/31/17) Linezolid (Verified Allergy, Mild, RASH, 10/31/17) Penicillins (Verified Allergy, Mild, RASH, 10/31/17) Ciprofloxacin (Verified Adverse Reaction, Mild, MUSCLE ACHES, 10/31/17) muscle aches Methimazole (Verified Adverse Reaction, Mild, headache, 10/31/17) headache Nystatin (Verified Adverse Reaction, Mild, nausea, abd pain, kidney pain, 10/31/17) nausea, abd pain,kidney pain Home Medications Scheduled Allopurinol (Zyloprim), 200 MG PO DAILY Bumetanide (Bumex), 1 TAB PO BID Docusate Sodium (Colace), 1 CAP PO HS Doxycycline Hyclate (Doxycycline Hyclate), 1 TAB PO BID Ergocalciferol (Vitamin D 62972 Unit), 1 TAB PO WK Eucerin (Eucerin), 1 APPLN TOP BID Fluconazole (Diflucan), 100 MG PO Q2D Glimepiride (Glimepiride), 3 TAB PO DAILY Heparin Sod (Porcine) (Heparin 100 Unit/Ml 5ML Flush), 5 ML IV BID Home O2 Therapy (Oxygen), 4 LITERS NA CONTINOUS Imipenem-Cilastatin (Primaxin Iv), 300 MG IV Q6 Insulin Aspart (Novolog Flexpen), UNITS SQ ACHS Metolazone (Metolazone), 5 MG PO daily on tuesdays Miconazole Nitrate (Desenex Shake Powder), 1 APPLN TOP BID Multiple Vitamin (Multivitamin), 1 TAB PO DAILY Potassium Chloride (Micro-K Ext Rel), 10 MEQ PO DAILY Spironolactone (Aldactone), 25 MG PO QD Scheduled PRN Acetaminophen (Tylenol), 650 MG PO Q8 PRN for temp > 101 Clotrimazole (Topical) (Anti-Fungal), 1 APPLN TOP Q12 PRN for rash Guaifenesin (Robitussin), 10 ML PO Q6 PRN for cough/congestion Ipratropium-Albuterol (Duoneb), 1 TREATMENT INH Q4H PRN for cough/wheeze Oxycodone Immediate Rel Tab (Roxicodone Ir), 5 MG PO Q6H PRN for Pain Saline (Saline Nasal [place]), 2 SPRAYS ARTHUR Q8 PRN for dry nasal passage Review of Systems Constitutional: + fever Eyes: No worsening of vision, No eye pain ENT: No hearing loss, No unusual epistaxis, No nasal symptoms Respiratory: + cough, + sputum, + shortness of breath, + dyspnea on exertion, + dyspnea at rest Cardiovascular: No chest pain, No orthopnea, No PND Abdomen: No pain, No nausea, No vomiting Musculoskeletal: No joint pain Genitourinary - Female: No dysuria, No urinary frequency, No urinary urgency Neurologic: No memory loss, No paralysis, No weakness Psychiatric: No depression symptoms Endocrine: No fatigue Hematologic / Lymphatic: No abnormal bleeding/bruising Integumentary: + problem reported (Multiple ulcers as above) Physical Exam Vital Signs Date Time Temp Pulse Resp B/P (MAP) Pulse Ox O2 Delivery O2 Flow Rate FiO2 10/31/17 06:24 116 24 142/66 90 Oxymask 5.0 10/31/17 05:25 118 28 118/64 92 Oxymask 5.0 10/31/17 04:24 90 Oxymask 5.0 10/31/17 04:21 122 24 88 Oxymask 5.0 10/31/17 04:21 122 10/31/17 04:17 123 10/31/17 04:16 37.4 123 116/84 70 Nasal Cannula 4.0 10/31/17 04:16 70 Nasal Cannula 4.0 General Appearance: + pertinent finding (Morbidly obese, middle aged female - appears comfortable on Bipap - AAO x 3) Head: normocephalic Eyes: normal inspection ENT: normal ENT inspection Neck: supple, + pertinent finding (Cannot assess JVD) Respiratory/Chest: chest non-tender, + pertinent finding (Poor air moveemnt - limited exam due to habitus - no audible air entry at bases) Cardiovascular: + irregularly irregular, + pertinent finding (Faint sounds - limited exam) Abdomen/GI: normal bowel sounds, non tender, soft Back: normal inspection, no CVA tenderness Extremities/Musculoskelatal: + pertinent finding (BL LE ulcers - stasis changes - no edema) Neurologic/Psych: fire pilot II-XII nml as tested, no motor/sensory deficits, alert, oriented x 3 Skin: + pertinent finding (Ulcers of LE and decub ulcer - stasis changes of LEs ) Diagnostics Laboratory Results Results Past 24 Hours Test 10/31/17 04:15 10/31/17 05:00 10/31/17 05:14 10/31/17 05:15 Range/Units White Blood Count 19.13 4.8-10.8 K/uL Red Blood Count 3.92 4.2-5.4 M/uL Hemoglobin 10.3 12.0-16.0 g/dL Hematocrit 33.7 37-47 % Mean Corpuscular Volume 86.0 80-100 fL Mean Corpuscular Hemoglobin 26.3 25-34 pg Mean Corpuscular Hemoglobin Concent 30.6 32-36 g/dl Platelet Count 162 130-400 K/uL Mean Platelet Volume 11.8 7.4-10.4 fL Neutrophils (%) (Auto) 90.8 % Lymphocytes (%) (Auto) 3.2 % Monocytes (%) (Auto) 5.4 % Eosinophils (%) (Auto) 0.0 % Basophils (%) (Auto) 0.1 % Neutrophils # (Auto) 17.37 1.4-6.5 K/uL Lymphocytes # (Auto) 0.61 1.2-3.4 K/uL Monocytes # (Auto) 1.04 0.11-0.59 K/uL Eosinophils # (Auto) 0.00 0-0.5 K/uL Basophils # (Auto) 0.02 0-0.2 K/uL RDW Standard Deviation 60.6 36.4-46.3 fL RDW Coefficient of Variation 19.5 11.5-14.5 % Immature Granulocyte % (Auto) 0.5 % Immature Granulocyte # (Auto) 0.09 0.00-0.02 K/uL Prothrombin Time 13.9 9.0-12.0 SECONDS Prothromb Time International Ratio 1.3 0.9-1.1 Activated Partial Thromboplast Time 30.1 21.0-31.0 SECONDS Partial Thromboplastin Ratio 1.2 Sodium Level 128 136-145 mmol/L Potassium Level 4.7 3.5-5.1 mmol/L Chloride Level 86 98-107 mmol/L Carbon Dioxide Level 30 21-32 mmol/L Anion Gap 12.0 19.0 16-25 mmol/L Blood Urea Nitrogen 83 7-18 mg/dl Creatinine 1.91 0.60-1.20 mg/dl Est Creatinine Clear Calc Drug Dose 38.9 ml/min Estimated GFR () 32.7 Estimated GFR (Non- 28.2 BUN/Creatinine Ratio 43.4 10-20 Random Glucose 263 70-99 mg/dl Calcium Level 9.1 8.5-10.1 mg/dl Magnesium Level 1.6 1.8-2.4 mg/dl Total Bilirubin 1.1 0.2-1 mg/dl Direct Bilirubin 0.6 0-0.2 mg/dl Aspartate Amino Transf (AST/SGOT) 23 15-37 U/L Alanine Aminotransferase (ALT/SGPT) 12 12-78 U/L Alkaline Phosphatase 94 45-117 U/L Total Creatine Kinase 18 26-192 U/L Creatine Kinase MB < 0.5 0.5-3.6 ng/ml Creatine Kinase MB Ratio 0-3.0 Pro-B-Type Natriuretic Peptide 94845 0-900 pg/ml Total Protein 7.4 6.4-8.2 gm/dl Albumin 2.6 3.4-5.0 gm/dl Bedside Hemoglobin 10.9 12.0-16.0 g/dl Bedside Hematocrit 32 37-47 % Bedside Sodium 129 135-144 mEq/L Bedside Potassium 4.5 3.3-5.0 mEq/L Bedside Chloride 83 101-112 mEq/L Bedside Total CO2 32 24-31 mEq/l Bedside Blood Urea Nitrogen 91 7-18 mg/dl Bedside Creatinine 2.1 0.6-1.3 mg/dl Bedside Glucose (other) 272 70-99 mg/dl Bedside Ionized Calcium ([place]) 1.03 1.12-1.32 mmol/l Influenza Type A (RT-PCR) Neg for Influ A NEG Influenza Type B (RT-PCR) Neg for Influ B NEG Bedside Lactic Acid Venous 1.29 0.90-1.70 mmol/L Urine Color DK YELLOW Urine Appearance TURBID CLEAR Urine pH 5.0 4.5-7.5 Urine Specific [place] 1.017 1.000-1.030 Urine Protein 3+ NEG Urine Glucose (UA) NEG NEG Urine Ketones NEG NEG Urine Occult Blood 3+ NEG Urine Nitrite NEG NEG Urine Bilirubin NEG NEG Urine Urobilinogen NEG NEG Urine Leukocyte Esterase LARGE NEG Urine WBC (Auto) >30 0-5 /hpf Urine RBC (Auto) 0-4 0-4 /hpf Urine Hyaline Casts (Auto) 5-10 0-5 /lpf Urine Epithelial Cells (Auto) >30 0-5 /lpf Urine Bacteria (Auto) 3+ NEG Urine Pathogenic Casts 1-5 GRANULAR CASTS 0 /lpf Urine Yeast (Auto) NONE PRSENT Microbiology Results 10/31/17 Blood Culture, Received Pending 10/31/17 Blood Culture, Received Pending 10/31/17 Urine Culture, Received Pending Diagnostic Radiology LLL infiltrate EKG Sinus tach, R axis, PVCs, possible strain pattern Impression Assessment and Plan 57 y/o F Hx COPD - chronic resp failure, CKD III, chronic diastolic CHF, anemia , gout, multiple diabetic ulcers, decubitus ulcer, ROHAN, DM II, morbid obesity. Pt presents with SOB, cough, congestion and fevers. She was diagnosed with PNM a few days ago, started on PO Doxycycline and was scheduled to receive IV Primaxin this AM. On arrival to the ER the pt is afebrile, however, she is tachypneic and requiring BiPAP to maintain oxygenation. She denies CP, N/V, dysuria. Initial labs are notable for a (+) UA, leukocytosis and hyperglycemia. A CXR reveals a LLL infiltrate. the pt has had several recent admissions due to infections including UTIs, cellulitis and pneumonia. She has multiple antibiotic allergies. 1) Pneumonia with resp failure - due to multiple allergies she is started on Doxy and Primaxin pending an ID consult. Duonebs, albuterol, 02 protocol provided - requiring BiPAP on admission. 2) UTI - cultures and ID eval pending - cont above antibiotics for now 3) Multiple ulcers are being managed superficially at present - wound care consulted 4) Diastolic CHF - remains on Bumex, Metolazone, Aldactone - volume status cannot be assessed clinically - would consider additional diuresis if resp status does not improve 5) CKD - creat is currently at baseline - will trend BMP 6) DM II - placed on sliding scale 7) COPD - due to her low 02 sat, steroids will be started - nebs provided 8) Anemia - Hb is at baseline 9) ROHAN - HS BiPAP will be provided Full code - Heparin prophylaxis Total time for this admit including review of labs, meds, imaging - discussion with pt and ER attending - 50 min Resuscitation Status VTE Prophylaxis Will order VTE Prophylaxis: Yes
[2017-10-31] MEDS ORDERED: ALBUTEROL 0.083% NEBU SOLN 3 ML VIAL INH PRN (07:15)
[2017-10-31] MEDS ORDERED: DEXTROSE 50% 50 ML SYR IV PRN (08:15)
[2017-10-31] MEDS ORDERED: GLUCAGON FOR INJ 1 MG VIAL SQ PRN (08:15)
[2017-10-31] MEDS ORDERED: GLUCOSE 40% GEL 15 GM TUBE PO PRN (08:15)
[2017-10-31] MEDS ORDERED: GLUCOSE 10 TABS/TUBE PO PRN (08:15)
[2017-10-31] MEDS: METHYLPREDNISOLONE IV 60 MG in SYRINGE 0 ML IV SCH ×3 (08:30→20:30)
[2017-10-31] MEDS: METOLAZONE 5 MG TAB PO SCH (09:00)
[2017-10-31] MEDS: SPIRONOLACTONE 25 MG TAB PO SCH (09:00)
[2017-10-31] MEDS: ALBUT/IPRATROP 3MG/0.5MG NEB 3 ML VIAL INH SCH ×3 (09:00→20:14)
[2017-10-31] MEDS: ALLOPURINOL 100 MG TAB PO SCH (09:00)
[2017-10-31] MEDS: POTASSIUM CHLORIDE 10 MEQ TABCR PO SCH (09:00)
--- NOTE | 2017-10-31 11:15 | Medical Consult ---
Consultation Date of Consultation: Oct 31, 2017. Attending Physician: Cali Bustamante M.D. Reason for Consultation: Pneumonia, multiple antibiotic allergies History of Present Illness 57-year-old female well known to the Infectious Disease service, with history of chronic sacral decubitus ulcerations, ulcerations of her legs, chronic kidney disease, heart failure, recurrent urinary tract infections, recently hospitalized with worsening lower extremity infection, who was doing reasonably well post discharged until the last 4-5 days when she noted increasing shortness of breath and cough along with low-grade fever. She was diagnosed with pneumonia, and was started empirically on doxycycline. However symptoms have worsened, and patient was admitted to the hospital for further management. Chest x-ray, read by me, raises possibility of lower lobe pneumonia although also consistent with worsening heart failure. Procalcitonin level mildly elevated, BNP markedly elevated. Cultures are pending. Past Medical/Surgical History Medical Problems: (1) Acute renal disease Status: Acute (2) Acute renal failure Status: Acute (3) ELIZABETH (acute kidney injury) Status: Acute (4) ELIZABETH (acute kidney injury) Status: Acute (5) Anemia Status: Acute (6) Cellulitis Status: Acute (7) Cellulitis of both lower extremities Status: Acute (8) CHF (congestive heart failure) Status: Acute (9) CHF (congestive heart failure) Status: Acute (10) Dehydration Status: Acute (11) Fluid overload Status: Acute (12) Hypoxia Status: Acute (13) Pickwickian syndrome Status: Acute (14) Pneumonia Status: Acute (15) Respiratory failure Status: Acute (16) Sacral decubitus ulcer, stage III Status: Acute (17) UTI (urinary tract infection) Status: Acute Medical Problems: (1) Acute respiratory failure (2) CHF (congestive heart failure) (3) Chills (4) Femur fracture, left (5) Hyponatremia (6) Hypoxia (7) Leg swelling (8) Leg ulcer (9) Leukocytosis (10) MRSA (methicillin resistant Staphylococcus aureus) infection (11) MRSA lower extremity wounds (12) Pneumonia (13) Sacral decubitus ulcer, stage IV Family History No pertinent family history Social History Smoking Status: Former Smoker Drug Use: none Marital Status: single, Housing Status: [facility] Occupation Status: disabled Allergies Coded Allergies: Vancomycin (Verified Allergy, Severe, ANAPHYLAXIS, 10/31/17) pt began shaking,face and neck bright red rash.o2 saturation dropping to 84% on 15lnrb Ampicillin (Verified Allergy, Mild, RASH, 10/31/17) Clindamycin (Verified Allergy, Mild, RASH, 10/31/17) Linezolid (Verified Allergy, Mild, RASH, 10/31/17) Penicillins (Verified Allergy, Mild, RASH, 10/31/17) Ciprofloxacin (Verified Adverse Reaction, Mild, MUSCLE ACHES, 10/31/17) muscle aches Methimazole (Verified Adverse Reaction, Mild, headache, 10/31/17) headache Nystatin (Verified Adverse Reaction, Mild, nausea, abd pain, kidney pain, 10/31/17) nausea, abd pain,kidney pain Current Inpatient Medications Current Inpatient Medications Medications (Trade) Dose Ordered Sig/Bruno Route Start Time Stop Time Status Last Admin Dose Admin Heparin Sodium (Porcine) (Heparin Sq 5000 Unit/0.5ml) 5,000 unit Q8 SQ 10/31/17 14:00 11/30/17 13:59 Acetaminophen (Tylenol Tab) 650 mg Q4H PRN PO 10/31/17 07:00 11/30/17 06:59 Al Hydrox/Mg Hydrox/Simethicone (Maalox Max Susp) 15 ml Q4H PRN PO 10/31/17 07:00 11/30/17 06:59 Magnesium Hydroxide (Milk Of Magnesia Susp) 30 ml Q12H PRN PO 10/31/17 07:00 11/30/17 06:59 Ondansetron HCl (Zofran Inj) 4 mg Q6H PRN IV 10/31/17 07:00 11/30/17 06:59 Morphine Sulfate (MoRPHine SULFATE INJ) 2 mg Q30M PRN IV 10/31/17 07:00 11/14/17 06:59 Polyethylene (Miralax Powder Packet) 17 gm DAILY PRN PO 10/31/17 07:00 11/30/17 06:59 Allopurinol (Zyloprim Tab) 200 mg DAILY PO 10/31/17 09:00 11/30/17 08:59 Bumetanide (Bumex Tab) 1 mg BID17 PO 10/31/17 09:00 11/30/17 08:59 Docusate Sodium (coLACE CAP) 100 mg HS PO 10/31/17 21:00 11/30/17 20:59 Multi-Ingredient Ointment (Eucerin Unscented Cr) 1 appln BID EXT 10/31/17 09:00 11/30/17 08:59 Fluconazole (Diflucan Tab) 100 mg Q2D PO 10/31/17 07:00 11/10/17 06:59 Heparin Sodium (Porcine) (Heparin 100 Unit/ml 5ml Flush) 5 ml BID FLUSH 10/31/17 09:00 11/30/17 08:59 Metolazone (Zaroxolyn Tab) 5 mg DAILY PO 10/31/17 09:00 11/30/17 08:59 Miconazole Nitrate (Desenex Powder) 1 appln BID EXT 10/31/17 09:00 11/30/17 08:59 Oxycodone HCl (Roxicodone Immediate Rel Tab) 5 mg Q6H PRN PO 10/31/17 07:00 11/14/17 06:59 Potassium Chloride (Klor-Con M10) 10 meq DAILY PO 10/31/17 09:00 11/30/17 08:59 Spironolactone (Aldactone Tab) 25 mg DAILY PO 10/31/17 09:00 11/30/17 08:59 Insulin Aspart (novoLOG ASPART) SLIDING SCALE G... ACHS SC 10/31/17 11:00 11/30/17 10:59 Albuterol/ Ipratropium (Duoneb) 3 ml Q6R INH 10/31/17 09:00 11/30/17 08:59 Albuterol Sulfate (Ventolin 0.083% 2.5MG/3ML Neb) 2.5 mg Q4H PRN INH 10/31/17 07:15 11/30/17 07:14 Methylprednisolone Sodium Succinate 60 mg/Syringe 0.96 ml @ 1.5 mls/min Q6H IV 10/31/17 08:30 11/30/17 08:29 Glucose (Glucose 40% Gel) 15-30 GRAMS 15 GRAMS... UD PRN PO 10/31/17 08:15 11/30/17 08:14 Glucose (Glucose Chew Tab) 4-8 Tablets 4 Tabl... UD PRN PO 10/31/17 08:15 11/30/17 08:14 Dextrose (Dextrose 50% 50ML Syringe) 25-50ML OF 50% DW IV FOR... UD PRN IV 10/31/17 08:15 11/30/17 08:14 Glucagon (Glucagon Inj) 1 mg UD PRN SQ 10/31/17 08:15 11/30/17 08:14 Imipenem/ Cilastatin Sodium 300 mg/Dextrose 106 ml @ 106 mls/hr Q6H IV 10/31/17 12:00 11/10/17 11:59 Review of Systems All systems were reviewed and are negative except as per HPI Physical Exam Date Time Temp Pulse Resp B/P (MAP) Pulse Ox O2 Delivery O2 Flow Rate FiO2 10/31/17 08:00 36.9 109 26 106/61 (76) 95 Oxymask 15.0 10/31/17 07:47 92 BiPAP 5.0 60 10/31/17 06:44 114 92 60 10/31/17 06:24 116 24 142/66 90 Oxymask 5.0 10/31/17 05:25 118 28 118/64 92 Oxymask 5.0 10/31/17 04:24 90 Oxymask 5.0 10/31/17 04:21 122 24 88 Oxymask 5.0 10/31/17 04:21 122 10/31/17 04:17 123 10/31/17 04:16 37.4 123 116/84 70 Nasal Cannula 4.0 10/31/17 04:16 70 Nasal Cannula 4.0 General Appearance: WD/WN, no apparent distress, + obese Head: normocephalic, atraumatic Eyes: normal inspection, EOMI, sclerae normal ENT: normal ENT inspection, hearing grossly normal, pharynx normal Neck: supple, no adenopathy, thyroid normal, trachea midline Respiratory/Chest: chest non-tender, no respiratory distress, no accessory muscle use, + rales Cardiovascular: regular rate, rhythm, no gallop, no murmur Abdomen/GI: normal bowel sounds, non tender, soft, no organomegaly Back: normal inspection, no CVA tenderness Extremities/Musculoskelatal: no calf tenderness, normal capillary refill, + swelling Neurologic/Psych: alert, oriented x 3 Skin: normal color, no rash, + pertinent finding ( right leg ulcerations, cervical decubitus, all relatively clean) Lymphatic: no adenopathy Laboratory Results Date/Time Source Procedure Growth Status 10/31/17 05:07 Blood Blood Culture Pending Received 10/31/17 04:15 Blood Blood Culture Pending Received 10/31/17 05:15 Urine,Catheterized Urine Culture Pending Received Last 24 Hours Test 10/31/17 04:15 10/31/17 05:00 10/31/17 05:01 10/31/17 05:14 White Blood Count 19.13 K/uL Red Blood Count 3.92 M/uL Hemoglobin 10.3 g/dL Hematocrit 33.7 % Mean Corpuscular Volume 86.0 fL Mean Corpuscular Hemoglobin 26.3 pg Mean Corpuscular Hemoglobin Concent 30.6 g/dl Platelet Count 162 K/uL Mean Platelet Volume 11.8 fL Neutrophils (%) (Auto) 90.8 % Lymphocytes (%) (Auto) 3.2 % Monocytes (%) (Auto) 5.4 % Eosinophils (%) (Auto) 0.0 % Basophils (%) (Auto) 0.1 % Neutrophils # (Auto) 17.37 K/uL Lymphocytes # (Auto) 0.61 K/uL Monocytes # (Auto) 1.04 K/uL Eosinophils # (Auto) 0.00 K/uL Basophils # (Auto) 0.02 K/uL RDW Standard Deviation 60.6 fL RDW Coefficient of Variation 19.5 % Immature Granulocyte % (Auto) 0.5 % Immature Granulocyte # (Auto) 0.09 K/uL Prothrombin Time 13.9 SECONDS Prothromb Time International Ratio 1.3 Activated Partial Thromboplast Time 30.1 SECONDS Partial Thromboplastin Ratio 1.2 Sodium Level 128 mmol/L Potassium Level 4.7 mmol/L Chloride Level 86 mmol/L Carbon Dioxide Level 30 mmol/L Anion Gap 12.0 mmol/L 19.0 mmol/L Blood Urea Nitrogen 83 mg/dl Creatinine 1.91 mg/dl Est Creatinine Clear Calc Drug Dose 38.9 ml/min Estimated GFR () 32.7 Estimated GFR (Non- 28.2 BUN/Creatinine Ratio 43.4 Random Glucose 263 mg/dl Calcium Level 9.1 mg/dl Magnesium Level 1.6 mg/dl Total Bilirubin 1.1 mg/dl Direct Bilirubin 0.6 mg/dl Aspartate Amino Transf (AST/SGOT) 23 U/L Alanine Aminotransferase (ALT/SGPT) 12 U/L Alkaline Phosphatase 94 U/L Total Creatine Kinase 18 U/L Creatine Kinase MB < 0.5 ng/ml Creatine Kinase MB Ratio Pro-B-Type Natriuretic Peptide 66022 pg/ml Total Protein 7.4 gm/dl Albumin 2.6 gm/dl Procalcitonin 1.38 ng/ml Bedside Hemoglobin 10.9 g/dl Bedside Hematocrit 32 % Bedside Sodium 129 mEq/L Bedside Potassium 4.5 mEq/L Bedside Chloride 83 mEq/L Bedside Total CO2 32 mEq/l Bedside Blood Urea Nitrogen 91 mg/dl Bedside Creatinine 2.1 mg/dl Bedside Glucose (other) 272 mg/dl Bedside Ionized Calcium ([place]) 1.03 mmol/l Influenza Type A (RT-PCR) Neg for Influ A Influenza Type B (RT-PCR) Neg for Influ B Bedside Troponin I 0.050 ng/ml Bedside Lactic Acid Venous 1.29 mmol/L Test 10/31/17 05:15 Urine Color DK YELLOW Urine Appearance TURBID Urine pH 5.0 Urine Specific [place] 1.017 Urine Protein 3+ Urine Glucose (UA) NEG Urine Ketones NEG Urine Occult Blood 3+ Urine Nitrite NEG Urine Bilirubin NEG Urine Urobilinogen NEG Urine Leukocyte Esterase LARGE Urine WBC (Auto) >30 /hpf Urine RBC (Auto) 0-4 /hpf Urine Hyaline Casts (Auto) 5-10 /lpf Urine Epithelial Cells (Auto) >30 /lpf Urine Bacteria (Auto) 3+ Urine Pathogenic Casts 1-5 GRANULAR CASTS /lpf Urine Yeast (Auto) [~ rep ct add3]] CHEST ONE VIEW PORTABLE CLINICAL HISTORY: cough, SOB dyspnea COMPARISON STUDY: 10/01/2017 FINDINGS: Mild increase in cardiac size. Increased prominence of the parenchymal and interstitial markings throughout both hemithoraces. No regions of focal consolidation. Central catheter remains in superior vena cava. IMPRESSION: Cardiomegaly with findings of diffuse bilateral parenchymal infiltrative change versus developing pulmonary edema. The above report was generated using voice recognition software. It may contain grammatical, syntax or spelling errors. Assessment & Plan Pneumonia versus worsening heart failure, possible recurrent urinary tract infection, multiple skin ulcerations. Given recent hospitalization multiple drug allergies, combination of doxycycline and imipenem appropriate pending further culture results. Will adjust once further culture results available. Length of IV antibiotics will be determined by clinical response and lab results. Will follow.
[2017-10-31] MEDS: BUMETANIDE 1 MG TAB PO SCH ×2 (11:46→19:00)
[2017-10-31] MEDS: MICONAZOLE NITRATE POWDER 43 GM EXT SCH ×2 (11:50→20:32)
[2017-10-31] MEDS: FLUCONAZOLE 100 MG TAB PO SCH (11:50)
[2017-10-31] MEDS: EUCERIN CR 120 GM JAR EXT SCH ×2 (11:51→20:32)
[2017-10-31] MEDS: INSULIN ASPART 100 UNITS/ML 3 ML PEN SC SCH ×3 (12:00→20:33)
[2017-10-31] MEDS ORDERED: IMIPENEM IV SCH (12:00)
[2017-10-31] MEDS ORDERED: CILASTATIN IV SCH (12:00)
[2017-10-31] MEDS: HEPARIN SOD 5000 UNIT/0.5 ML CARP SQ SCH ×2 (14:00→20:32)
[2017-10-31] MEDS: IMIPENEM/CILASTATIN IV 300 MG in DEXTROSE 5% 100ML 100 ML IV SCH ×2 (14:47→17:04)
[2017-10-31] MEDS ORDERED: DILTIAZEM BOLUS / DRIP IV STA (18:52)
[2017-10-31] MEDS ORDERED: DILTIAZEM BOLUS FROM BAG IV ONE (19:20)
[2017-10-31] MEDS ORDERED: DILTIAZEM HCL INJ 125 MG in DEXTROSE 5% 100ML IV PRN (19:30)
--- NOTE | 2017-10-31 19:54 | Progress Note ---
Progress Note Date of Service Oct 31, 2017. Progress Note Was called by nurse as patient was having increased heart rate. It was 130. Patient however was asymptomatic and resting. Systolic blood pressure was over 90. Ordered Cardizem drip as patient does not have history of hear block or pre- excitation syndrome. will monitor vitals and sign out to night team. Also discussed with pharmacy.
[2017-10-31] MEDS: DOCUSATE SODIUM 100 MG CAP PO SCH (21:00)
[2017-10-31 22:41] LABS: CALCIUM 8.7 mg/dl (8.5-10.1); CREATININE 1.89 mg/dl (0.60-1.20); POTASSIUM 3.7 mmol/L (3.5-5.1)
[2017-11-01] VITALS (10 sets, daily range): BP systolic 89–119; BP diastolic 49–67; PULSE 69–108; TEMP 36.5–36.9; O2SAT 91–95
[2017-11-01] MEDS: ALBUT/IPRATROP 3MG/0.5MG NEB 3 ML VIAL INH SCH ×4 (02:00→19:08)
[2017-11-01] MEDS: IMIPENEM/CILASTATIN IV 300 MG in DEXTROSE 5% 100ML 100 ML IV SCH ×5 (02:03→23:59)
[2017-11-01] MEDS: METHYLPREDNISOLONE IV 60 MG in SYRINGE 0 ML IV SCH ×4 (02:03→19:54)
[2017-11-01] MEDS: HEPARIN SOD 5000 UNIT/0.5 ML CARP SQ SCH ×3 (06:00→22:00)
[2017-11-01] MEDS: INSULIN ASPART 100 UNITS/ML 3 ML PEN SC SCH ×3 (11:18→21:00)
[2017-11-01] MEDS: SPIRONOLACTONE 25 MG TAB PO SCH (11:33)
[2017-11-01] MEDS: POTASSIUM CHLORIDE 10 MEQ TABCR PO SCH (11:33)
[2017-11-01] MEDS: ALLOPURINOL 100 MG TAB PO SCH (11:33)
[2017-11-01] MEDS: METOLAZONE 5 MG TAB PO SCH (11:34)
[2017-11-01] MEDS: BUMETANIDE 1 MG TAB PO SCH ×2 (11:37→17:27)
[2017-11-01] MEDS: MICONAZOLE NITRATE POWDER 43 GM EXT SCH ×2 (11:39→21:00)
[2017-11-01] MEDS: EUCERIN CR 120 GM JAR EXT SCH ×2 (11:39→21:00)
[2017-11-01] MEDS ORDERED: NURSING VERBAL MED ORDER ONE (17:00)
[2017-11-01] MEDS ORDERED: INSULIN ASPART 100 UNITS/ML 3 ML PEN SC ONE (17:30)
[2017-11-01] MEDS ORDERED: PHARMACY GLYCEMIC MGMT CONSULT PRN (20:12)
--- NOTE | 2017-11-01 20:48 | Pharmacy Progress Note ---
Glycemic: Assessment & Plan Date of Service Nov 01, 2017. Assessment & Plan Item Value Date Time Bedside Glucose 369 mg/dl *H 11/01/17 1625 Bedside Glucose 222 mg/dl H 11/01/17 0652 Random Glucose 122 mg/dl H 10/31/17 2212 Bedside Glucose 215 mg/dl H 10/31/17 1133 Reported Home Meds: * glimeride 6mg daily * Novolog SSI * HbA1c= 7.8% from 10/08/17 A/P: Pt had been refusing insulin yesterday and earlier today. She did take Novolog 12 units sq with dinner tonite when SGN=898pe/dL. Pt is agreeable to having pharmacy glycemic service help manage her diabetes. I will use this opportunity to add some basal insulin with Lantus and tighten her correctional/ prandial insulin with Novolog. * Basal insulin: Ordered Lantus 25units x 1 tonite then 18 units sq every 12 hours starting in am * Correctional Insulin: Novolog Correction per scale ACHS Goal Range: Low 120 mg/dL - High 160 mg/dL "tightened" Correction Factor: 25 mg/dL/unit * Prandial insulin: "tightened" carb ratio of 1 unit per 8 grams CHO consumed Pharmacy will continue to monitor patient daily and write orders per [facility] inpatient glycemic control protocol. Thanks. * Please note that the plan above was derived based on current level of insulin resistance and hospital stress. These recommendations are appropriate for inpatient admission only. Plan of care upon discharge will need to be reassessed to avoid potential outpatient hypo/hyperglycemia.
[2017-11-01] MEDS ORDERED: INSULIN GLARGINE SOLOSTAR 100 UNITS/ML 3 ML PEN SC ONE (21:00)
[2017-11-01] MEDS: DOCUSATE SODIUM 100 MG CAP PO SCH (21:00)
--- NOTE | 2017-11-01 22:29 | Progress Note ---
Subjective Date of Service: Nov 01, 2017. Subjective Pt evaluation today including: conversation w/ patient, physical exam Patient reports feeling mildly better today. She still requires oxymask and has shortness of breath. Patient denies any fever, chills. Overnight her heart rate improved and no longer was tachycardic. The kofi drip was hi'ed at 4am. Problem List Medical Problems: (1) Acute renal disease Status: Acute (2) Acute renal failure Status: Acute (3) ELIZABETH (acute kidney injury) Status: Acute (4) ELIZABETH (acute kidney injury) Status: Acute (5) Anemia Status: Acute (6) Cellulitis Status: Acute (7) Cellulitis of both lower extremities Status: Acute (8) CHF (congestive heart failure) Status: Acute (9) CHF (congestive heart failure) Status: Acute (10) Dehydration Status: Acute (11) Fluid overload Status: Acute (12) Hypoxia Status: Acute (13) Pickwickian syndrome Status: Acute (14) Pneumonia Status: Acute (15) Respiratory failure Status: Acute (16) Sacral decubitus ulcer, stage III Status: Acute (17) UTI (urinary tract infection) Status: Acute Review of Systems Constitutional: No fever, No chills Eyes: No worsening of vision ENT: No hearing loss Respiratory: + cough, + shortness of breath Cardiac: + chest pain Abdomen: No pain Musculoskeletal: No joint pain Neurologic: No memory loss Psychiatric: No depression symptoms Heme: No abnormal bleeding/bruising Endo: + fatigue Skin: No rash All Other Systems: Reviewed and Negative Objective Vital Signs Date Time Temp Pulse Resp B/P (MAP) Pulse Ox O2 Delivery O2 Flow Rate FiO2 11/01/17 20:04 36.5 97 18 110/67 (81) 91 Oxymask 6.0 11/01/17 20:00 Oxymask 8.0 11/01/17 19:08 94 20 93 Mask 7.0 11/01/17 16:00 Oxymask 11.0 11/01/17 14:13 86 20 94 Mask 10.0 11/01/17 12:16 89 11/01/17 12:00 36.7 88 17 98/55 (69) 95 Oxymask 11.0 11/01/17 12:00 Oxymask 11.0 11/01/17 08:00 Oxymask 11.0 11/01/17 07:54 36.8 96 20 96/52 (67) 94 Oxymask 11.0 11/01/17 07:50 104 11/01/17 07:27 103 20 93 Mask 10.0 11/01/17 04:00 36.9 102 20 105/49 (67) 94 Oxymask 11.0 11/01/17 04:00 Oxymask 11.0 11/01/17 02:39 102 11/01/17 02:00 108 24 93 Mask 15.0 11/01/17 00:44 36.9 103 20 89/56 (67) 92 Oxymask 11.0 11/01/17 00:10 109 11/01/17 00:00 Oxymask 11.0 10/31/17 23:33 109 Physical Exam Comments: General Appearance: WD/WN, no apparent distress, + obese Head: normocephalic, atraumatic Eyes: normal inspection, EOMI, sclerae normal ENT: normal ENT inspection, hearing grossly normal, pharynx normal Neck: supple, no adenopathy, thyroid normal, trachea midline Respiratory/Chest: chest non-tender, no respiratory distress, no accessory muscle use, + rales R>L Cardiovascular: regular rate, rhythm, no gallop, no murmur Abdomen/GI: normal bowel sounds, non tender, soft, no organomegaly Back: normal inspection, no CVA tenderness Extremities/Musculoskelatal: no calf tenderness, normal capillary refill, + swelling Neurologic/Psych: alert, oriented x 3 Skin: normal color, no rash, + pertinent finding ( right leg ulcerations, cervical decubitus, all relatively clean) Lymphatic: no adenopathy Laboratory Results Last 24 Hours Test 11/01/17 06:52 11/01/17 16:25 Bedside Glucose 222 mg/dl 369 mg/dl Assessment and Plan 57 y/o F Hx COPD - chronic resp failure, CKD III, chronic diastolic CHF, anemia , gout, multiple diabetic ulcers, decubitus ulcer, ROHAN, DM II, morbid obesity. Pt presents with SOB, cough, congestion and fevers. She was diagnosed with PNM a few days ago, started on PO Doxycycline and was scheduled to receive IV Primaxin this AM. On arrival to the ER the pt is afebrile, however, she is tachypneic and requiring BiPAP to maintain oxygenation. She denies CP, N/V, dysuria. Initial labs are notable for a (+) UA, leukocytosis and hyperglycemia. A CXR reveals a LLL infiltrate. the pt has had several recent admissions due to infections including UTIs, cellulitis and pneumonia. She has multiple antibiotic allergies. 1) Pneumonia with resp failure - due to multiple allergies. It appears likely that pneumonia is playing a large role, however procalcitonin was low and BNP is high. ID was consulted. will continue current antibiotics. Imipenem and DOxy. Will continue Duonebs and albuterol. 02 protocol. Patient continues to need oxymask. Initially was on BIPAP now on oxymask will consult pulmonary. 2) UTI - cultures and ID eval pending - cont above antibiotics for now 3) Multiple ulcers are being managed superficially at present - wound care consulted 4) Diastolic CHF -BNP elevated. -Patient has been improving with antibiotics and home regimen for CHF - remains on Bumex, Metolazone, Aldactone - volume status cannot be assessed clinically - would consider additional diuresis if resp status does not improve 5) CKD stage IV- creat is currently at baseline -no significant changes - will trend BMP 6) DM II - placed on sliding scale 7) COPD - due to her low 02 sat, steroids will be continued - nebs provided 8) Anemia - Hb is at baseline 9) ROHAN - HS BiPAP will be provided 10) Tachycardia subsided. held cardizem drip. will monitor heart rate Continued [facility] stay due to: other Discharge planning: uncertain
[2017-11-02] VITALS (11 sets, daily range): BP systolic 100–115; BP diastolic 54–69; PULSE 94–102; TEMP 36.5–36.7; O2SAT 89–96
[2017-11-02] MEDS: OXYCODONE HCL IR 5 MG TAB (IMMEDIATE RELEASE) PO PRN (00:03)
[2017-11-02] MEDS ORDERED: NURSING VERBAL MED ORDER ONE (01:15)
[2017-11-02] MEDS ORDERED: COUGH DROP (SUGAR FREE) LOZ 24 LOZ/1 BOX LOZ PRN (01:15)
[2017-11-02] MEDS: ALBUT/IPRATROP 3MG/0.5MG NEB 3 ML VIAL INH SCH ×4 (01:30→19:03)
[2017-11-02] MEDS: METHYLPREDNISOLONE IV 60 MG in SYRINGE 0 ML IV SCH ×2 (02:30→08:30)
[2017-11-02] MEDS: HEPARIN SOD 5000 UNIT/0.5 ML CARP SQ SCH ×3 (05:58→20:33)
[2017-11-02] MEDS: IMIPENEM/CILASTATIN IV 300 MG in DEXTROSE 5% 100ML 100 ML IV SCH ×4 (05:58→23:38)
[2017-11-02] MEDS ORDERED: INSULIN GLARGINE SOLOSTAR 100 UNITS/ML 3 ML PEN SC SCH ×2 (08:00→09:00)
[2017-11-02 08:14] LABS: BASO % 0.1 %; BASO ABS # 0.01 K/uL (0-0.2); HEMATOCRIT 30.3 % (37-47); HEMOGLOBIN 9.6 g/dL (12.0-16.0); IG# 0.04 K/uL (0.00-0.02); LYMPH % 4.1 %; LYMPH ABS # 0.45 K/uL (1.2-3.4); MEAN CELL VOLUME 82.3 fL (80-100); MEAN CORPUSCULAR HEMOGLOBIN 26.1 pg (25-34); MEAN CORPUSCULAR HGB CONC 31.7 g/dl (32-36); MEAN PLATELET VOLUME 11.1 fL (7.4-10.4); MONO % 0.9 %; NEUT % 94.5 %; NEUT ABS # 10.34 K/uL (1.4-6.5); PLATELET COUNT 170 K/uL (130-400); RED CELL DISTRIBUTION WIDTH CV 18.7 % (11.5-14.5); RED CELL DISTRIBUTION WIDTH SD 56.3 fL (36.4-46.3); WHITE BLOOD COUNT 10.94 K/uL (4.8-10.8)
[2017-11-02 08:45] LABS: CALCIUM 7.9 mg/dl (8.5-10.1); CREATININE 1.87 mg/dl (0.60-1.20); POTASSIUM 4.2 mmol/L (3.5-5.1)
[2017-11-02] MEDS: SPIRONOLACTONE 25 MG TAB PO SCH (09:00)
[2017-11-02] MEDS: METOLAZONE 5 MG TAB PO SCH (09:00)
[2017-11-02] MEDS: ALLOPURINOL 100 MG TAB PO SCH (09:00)
[2017-11-02] MEDS: POTASSIUM CHLORIDE 10 MEQ TABCR PO SCH (09:00)
[2017-11-02] MEDS: INSULIN ASPART 100 UNITS/ML 3 ML PEN SC SCH ×4 (09:13→20:36)
[2017-11-02] MEDS: MICONAZOLE NITRATE POWDER 43 GM EXT SCH ×2 (09:18→20:38)
[2017-11-02] MEDS: BUMETANIDE 1 MG TAB PO SCH ×2 (09:18→17:34)
[2017-11-02] MEDS: EUCERIN CR 120 GM JAR EXT SCH ×2 (09:19→20:39)
[2017-11-02] MEDS: FLUCONAZOLE 100 MG TAB PO SCH (09:22)
--- NOTE | 2017-11-02 10:32 | Pulmonary Consultation ---
History General Date of Service: Nov 02, 2017. Stated Complaint: Hypoxia, Pneumonia HPI The patient is a 57 year old female who presents to [facility] with complaints of Hypoxia, Pneumonia. The patient's primary care provider is Dalia Adame. Patient is a 57-year-old female admitted for acute on chronic respiratory insufficiency with a PmHx significant for Chronic right-sided heart failure, oxygen dependence, ROHAN/OHV, chronic kidney disease, urinary incontinence with chronic indwelling Lerner catheterization hypertension, morbid obesity, recurrent infections, proximal DVT left superficial femoral vein 05/11/2015, recurrent infections multiple sites please see below, lifelong smoker. Patient was at [facility] secondary to chronic lower extremity ulcers and was noted to have increasing sputum production and shortness of breath. At that time a chest x-ray was taken suggested new infiltrative pattern in the left lower lobe was transferred to [facility]. At this time the patient notes increasing dyspnea at rest from her baseline and requires higher levels of oxygen support but her sputum production has decreased. She also denies: Fever, chills, classic cardiac chest pain, pleurisy, unintentional weight loss, hemoptysis. Workup WBC: 19K--11K Cr: 1.87 PNB: 26,828 ALB: 2.6 Procalcitonin: 1.38 Troponin: 0.050 Na: [id number] UA: Positive for signs of infection Microbiology: Urine catheter Gram-negative bacilli EKG 11/01/2017: Normal sinus rhythm rate 90, signs of right axis deviation EKG: Sinus tachycardia rate 116 with PVCs Monitor strip 10/31/2017: PVCs CXR 10/31/2017: Cardiomegaly with hilar fullness, cephalization Previous evaluation CT thorax 09/30/2015 Cardiomegaly/signs consistent with CHF Patchy densities/infiltrate/atelectasis bilateral dependent regions Notable motion artifact Right upper lobe 11 mm infiltrate versus nodule CT abdomen 04/29/[address] Improvement in the patient's dependent lower lobe atelectasis/infiltrates Medications 1. Imipenem 2. DuoNeb 3. Methylprednisolone 60 mg IV Q 6 4. Diflucan 100 mg p.o. Q2D Echocardiogram 05/21/2015 LV: EF=50-60%, diastolic dysfunction and adequately assessed RV: severely dilated, severely reduced systolic function LA: Within normal limits RA: Moderately dilated TV: Moderate to severe regurgitation PASP: Estimated 65mmHg IVC: [id number] mmHg Pulmonary function studies: 08/05/2006 (poor quality study) Pre post %Bailey FEV1/FVC 76 FEV1 1.51/62% 1.38/52% -15 FVC 2.10/62% 2.23/61% 6 VC 2.04/50% TLC 3.69/75% RV: 1.86/105% RV/TLC 140 DLCO 67% DL/VA 102% Interpretation: Moderate restrictive pattern with mild abnormality of the diffusion capacity, no evidence of COPD or bronchodilator response Past microbiology history 1. Sacral wound: E coli, Enterococcus faecalis, corynebacterium, MRSA 2. But tox: Klebsiella 3. Right lower extremity ulcer: MSSA, corynebacterium 4. Urine: E coli, Enterococcus faecalis, Klebsiella, Gram-negative bacilli 5. Blood: Klebsiella 6. Right ankle: Pseudomonas x2 resistance patterns, Klebsiella PmHx: 1. History of sacral decubitus ulcer stage IV 2. Hypertension 3. Tobacco use disorder 50 pack-year history 4. Diabetes mellitus 5. Sleep apnea/hypoventilation syndrome on BiPAP 03/02 _4.5L O2 6. Peripheral vascular disease 7. Oxygen dependence 8. Tobacco use/dependence 9. COPD 10. CHF 11. RV dysfunction/pulmonary hypertension 12. Morbid obesity 13. Epicondyle fracture of the left distal femur 14. Left DVT: Posterior tibial & superficial femoral 15. 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 Chronic Lerner care 17. Chronic kidney disease 18. Femoral condyle fracture and medial collateral ligament avulsion fracture PsHx: 1. Sacral decubitus ulcer repair 2. Resection of the coccyx 3. 4. Knee surgery 5. Hyponatremia 6. Chronic right-sided heart failure 7. IVC filter placement June 2015 8. ORIF left femur fracture 9. Pilonidal cyst resection 10. Multiple wound debridements Family history Heart disease/myocardial infarction Social history Smoking status: Alcohol use: Drug use: Marital status: Occupational status: Disabled Review of Systems Constitutional: reports: weakness Eyes: reports: no symptoms ENT: reports: other (Dry mucous membrane) Cardiovascular: reports: no symptoms Respiratory: reports: as stated in HPI Gastrointestinal: reports: no symptoms Genitourinary - Female: reports: other (Chronic urinary incontinence) Musculoskeletal: reports: no symptoms Integumentary: reports: no symptoms Neurologic: reports: no symptoms Psychiatric: reports: no symptoms Endocrine: no symptoms Hematologic / Lymphatic: no symptoms Allergic / Immunologic: no symptoms Past Medical History Past Medical History: Please refer to HPI Past Surgical History: Please refer to HPI Family History No pertinent family history Please refer to HPI Other: Diabetes Social History Please refer to HPI Tobacco: Patient quit tobacco within last 1-2 years per her recollection. Hx Tobacco Use In Past Year?: Yes Smoking Status: Former Smoker Marital status: single, Housing status: detention Occupational Status: disabled History of MDRO History of MDRO: Yes Type of MDRO: MRSA, other Allergies Coded Allergies: Vancomycin (Verified Allergy, Severe, ANAPHYLAXIS, 10/31/17) pt began shaking,face and neck bright red rash.o2 saturation dropping to 84% on 15lnrb Ampicillin (Verified Allergy, Mild, RASH, 10/31/17) Clindamycin (Verified Allergy, Mild, RASH, 10/31/17) Linezolid (Verified Allergy, Mild, RASH, 10/31/17) Penicillins (Verified Allergy, Mild, RASH, 10/31/17) Ciprofloxacin (Verified Adverse Reaction, Mild, MUSCLE ACHES, 10/31/17) muscle aches Methimazole (Verified Adverse Reaction, Mild, headache, 10/31/17) headache Nystatin (Verified Adverse Reaction, Mild, nausea, abd pain, kidney pain, 10/31/17) nausea, abd pain,kidney pain Current Medications Reported Home Medications Medications Dose Route/Sig Max Daily Dose Days Date Category Dose Instructions Novolog Flexpen (Insulin Aspart) 100 Units/Ml Inj Units SQ ACHS 10/31/17 Reported as per sliding scale BSG........INSULIN UNITS 0-150......0 151-200....2 UNITS 201-250....4 251-300....6 301-350....8 351-400...10 401-450...12 451+...CALL MD Mendoza Shake Powder (Miconazole Nitrate) 90 Appln/90 Gm Powd 1 Appln TOP BID 10/31/17 Reported apply to groin folds Primaxin Iv (Imipenem-Cilastatin) 1 Inj Inj 300 Mg IV Q6 10/31/17 Reported Heparin 100 Unit/Ml 5ML Flush (Heparin Sodium (Porcine)) 5 Ml Inj 5 Ml IV BID 10/31/17 Reported use with 10 ml normal saline, follow with 5ml 10units/ml heparin Robitussin (Guaifenesin) 100 Mg/5 Ml Yudy 10 Ml PO Q6 PRN 10/31/17 Reported Glimepiride 2 Mg Tab 3 Tab PO DAILY 90 10/31/17 Reported Eucerin (Multi-Ingredient Ointment) Cre 1 Appln TOP BID 10/31/17 Reported apply to bilateral lower extremities dry skin Duoneb (Ipratropium-Albuterol) 3 Ml Nebu 1 Treatment INH Q4H PRN 10/31/17 Reported Doxycycline Hyclate 100 Mg Tab 1 Tab PO BID 10 10/31/17 Reported Multivitamin (Multiple Vitamin) 1 Tab Tab 1 Tab PO DAILY 10/31/17 Reported Micro-K Ext Rel (Potassium Chloride) 10 Meq Capcr 10 Meq PO DAILY 10/31/17 Reported Saline Nasal [place] (Saline) 0.65 % Spr 2 Sprays ARTHUR Q8 PRN 10/31/17 Reported Tylenol (Acetaminophen) 325 Mg Tab 650 Mg PO Q8 PRN 10/31/17 Reported do not exceed 3gm/24hr Zyloprim (Allopurinol) 100 Mg Tab 200 Mg PO DAILY 10/31/17 Reported Anti-Fungal (Clotrimazole (Topical)) 1 % Cre 1 Appln TOP Q12 PRN 10/31/17 Reported Colace (Docusate Sodium) 100 Mg Cap 1 Cap PO HS 30 10/31/17 Reported Roxicodone Ir (Oxycodone HCl) 5 Mg Tab 5 Mg PO Q6H PRN 10/04/17 Rx Vitamin D 81579 Unit (Ergocalciferol) 50,000 Unit Cap 1 Tab PO WK 09/19/17 Reported give on fridays Diflucan (Fluconazole) 100 Mg Tab 100 Mg PO Q2D 09/19/17 Reported Metolazone 5 Mg Tab 5 Mg PO DAILY ON Tuesdays06/25/17 Reported Take 30 min prior to bumex Aldactone (Spironolactone) 25 Mg Tab 25 Mg PO QD 05/30/17 Reported Bumex (Bumetanide) 1 Mg Tab 1 Tab PO BID 05/30/17 Reported Oxygen Gas 4 Liters NA CONTINOUS 03/15/17 Reported Physical Physical Exam Vital Signs: Date Time Temp Pulse Resp B/P (MAP) Pulse Ox O2 Delivery O2 Flow Rate FiO2 11/02/17 07:31 36.6 99 20 111/67 (82) 91 Oxymask 10.0 11/02/17 07:10 99 20 90 Mask 7.0 11/02/17 04:00 Oxymask 8.0 11/02/17 01:30 94 20 92 Mask 7.0 11/02/17 00:00 Oxymask 8.0 11/01/17 23:27 36.5 95 20 116/64 (81) 92 Oxymask 7.0 11/01/17 20:04 36.5 97 18 110/67 (81) 91 Oxymask 6.0 11/01/17 20:00 Oxymask 8.0 11/01/17 19:08 94 20 93 Mask 7.0 11/01/17 16:00 Oxymask 11.0 11/01/17 14:13 86 20 94 Mask 10.0 11/01/17 12:16 89 11/01/17 12:00 36.7 88 17 98/55 (69) 95 Oxymask 11.0 11/01/17 12:00 Oxymask 11.0 General Appearance: mild distress Head: NORMOCEPHALIC, ATRAUMATIC Eyes: PERRLA, NO DISCHARGE, EOMI, SCLERAE NORMAL ENT: other (Dry mucous membranes) Neck: NORMAL RANGE OF MOTION, NO TENDERNESS, TRACHEA MIDLINE, NO STRIDOR Respiratory: rhonchi (Rhonchi diffusely) Cardiovasular: other (Tachycardic irregular rhythm) Abdomen: other (Positive bowel sounds soft nontender, hernia but no signs of incarceration or entrapment ventral abdominal) Genitourinary - Female: EXTERNAL GENITALIA NORMAL Back: other (Was unable to turn the patient and she has chronic back pain. Did discuss the case with the nurse who says the chronic decubitus ulcers greatly improved) Upper Extremities: NO EDEMA, NO DEFORMITY, NORMAL ROM Lower Extremities: other (Minimal edema in the dependent regions with chronic stasis dermatitis and ulcers in the bilateral lower extremities) Pulses: carotid (R) (2+), carotid (L) (2+), posterior tibial (R), posterior tibial (L) (1+) Neuro: ALERT, ORIENTED x 3, NORMAL MOTOR EXAM, NORMAL SENSATION, NORMAL CEREBELLAR EXAM Reflexes: biceps (R) (2+), bicpes (L) (2+), achilles (R) (1+), achilles (L) (1+ ) Babinski Testing: right (downgoing), left (downgoing) Psychiatric: anxious Diagnostics Labs Results Past 24 Hours Test 11/01/17 16:25 11/02/17 06:47 11/02/17 08:01 Range/Units Bedside Glucose 369 305 70-90 mg/dl White Blood Count 10.94 4.8-10.8 K/uL Red Blood Count 3.68 4.2-5.4 M/uL Hemoglobin 9.6 12.0-16.0 g/dL Hematocrit 30.3 37-47 % Mean Corpuscular Volume 82.3 80-100 fL Mean Corpuscular Hemoglobin 26.1 25-34 pg Mean Corpuscular Hemoglobin Concent 31.7 32-36 g/dl Platelet Count 170 130-400 K/uL Mean Platelet Volume 11.1 7.4-10.4 fL Neutrophils (%) (Auto) 94.5 % Lymphocytes (%) (Auto) 4.1 % Monocytes (%) (Auto) 0.9 % Eosinophils (%) (Auto) 0.0 % Basophils (%) (Auto) 0.1 % Neutrophils # (Auto) 10.34 1.4-6.5 K/uL Lymphocytes # (Auto) 0.45 1.2-3.4 K/uL Monocytes # (Auto) 0.10 0.11-0.59 K/uL Eosinophils # (Auto) 0.00 0-0.5 K/uL Basophils # (Auto) 0.01 0-0.2 K/uL RDW Standard Deviation 56.3 36.4-46.3 fL RDW Coefficient of Variation 18.7 11.5-14.5 % Immature Granulocyte % (Auto) 0.4 % Immature Granulocyte # (Auto) 0.04 0.00-0.02 K/uL Sodium Level 120 136-145 mmol/L Potassium Level 4.2 3.5-5.1 mmol/L Chloride Level 79 98-107 mmol/L Carbon Dioxide Level 29 21-32 mmol/L Anion Gap 12.0 3-11 mmol/L Blood Urea Nitrogen 97 7-18 mg/dl Creatinine 1.87 0.60-1.20 mg/dl Est Creatinine Clear Calc Drug Dose 39.9 ml/min Estimated GFR () 33.5 Estimated GFR (Non- 28.9 BUN/Creatinine Ratio 52.0 10-20 Random Glucose 316 70-99 mg/dl Calcium Level 7.9 8.5-10.1 mg/dl Beta-Hydroxybutyric Acid 13.50 0.2-2.81 mg/dL Diagnostic Radiology Please refer to HPI EKG Please refer to HPI Impression Assessment and Plan 57-year-old female with acute on chronic respiratory insufficiency: 1. Pneumonia: The chest x-ray taken at the [facility] and compared to previous imaging does not show a new infiltrate in the left lower lobe. I do agree with continuing current antibiotics as the patient's sputum production has decreased but I like to obtain a noncontrast CT of the chest for further evaluation. This patient is noted to have some chronic scar tissue in the lower lobe processes which was notably improved on previous CT of the abdomen imaging. 2. Hypoxia: Previous pulmonary function studies obtained on this patient are not consistent with COPD. Also this patient has multiple other reasons for hypoxemia such as pulmonary hypertension from possible chronic thromboembolic disease, primary pulmonary hypertension, diastolic dysfunction or obesity hypoventilation syndrome. I suggest we stabilize this patient and possibly move forward with right heart catheterization/shunt fraction evaluation for further explanation of her underlying hypoxia. Also patient will require repeat pulmonary function studies to better define her obstructive ventilatory disease. 3. IVC: Patient had an IVC catheter filter placed. She thought she had it removed but on a CT of the abdomen performed 04/29/[address]. Over a long period of time this will decrease her risk of recurrent pulmonary emboli from the lower extremities but will increase the risk of lower extremity DVT as well as inferior vena caval thrombosis. I like to repeat CT going all the way down to the abdomen and pelvis for further evaluation and verification of IVC filter. I will not be able to use contrast as the patient has renal insufficiency. #4: COPD: We will discontinue patient's Solu-Medrol as one it makes her extremely anxious and to possibly not warranted in this particular case.
--- NOTE | 2017-11-02 11:24 | DIAGNOSTIC IMAGING REPORT ---
(CHEST) THORAX WITHOUT CT DOSE: 1905.09 mGy.cm HISTORY: Dyspnea Evaluation of pneumonia versus interstitial lung changes or chromosomal disorders counselor TECHNIQUE: Multiaxial CT images of the chest were performed without contrast. A dose lowering technique was utilized adhering to the principles of ALARA. COMPARISON: 09/30/2015 FINDINGS: Moderate bibasilar parenchymal infiltrative change. Small bilateral pleural effusions. Central hilar fullness bilaterally which primarily appears to be on the basis of central pulmonary vasculature. Moderate cardiomegaly. Several indeterminate mediastinal nodes unchanged in the prior study. Left and to a lesser extent right axillary adenopathy diminished from the prior study. IMPRESSION: 1. Bibasilar parenchymal infiltrates. 2. Small bilateral pleural effusions. 3. Left axillary and mediastinal adenopathy stable to slightly improved from the prior study. 4. Enlarged substernal thyroid unchanged from the prior study. The above report was generated using voice recognition software. It may contain grammatical, syntax or spelling errors. Electronically signed by: Parminder Pineda M.D. 11/02/2017 11:23 AM Dictated Date/Time: 11/02/2017 11:19 AM
--- NOTE | 2017-11-02 11:29 | DIAGNOSTIC IMAGING REPORT ---
ABDOMEN NO IV/ORAL CONT (CT) CT DOSE: HISTORY: Pain Further evaluation of the patient's IVC filter which was placed TECHNIQUE: Multiaxial CT images of the abdomen was performed without contrast. A dose lowering technique was utilized adhering to the principles of ALARA. COMPARISON STUDY: 2016 FINDINGS: Bibasilar parenchymal infiltrative change. Findings suggesting mild hepatic cirrhosis. Spleen is unremarkable. Gallstones though the gallbladder neck. Moderate cortical scarring of the kidneys. No evidence for hydronephrosis. Infiltrative change of the perinephric fat bilaterally unaltered from the prior study. This potentially is age-related. Trace amount of ascites within the right paracolic gutter. Visualized components of bowel pattern nonobstructive. IMPRESSION: 1. Bibasilar parenchymal infiltrates. 2. Findings suggesting developing hepatic cirrhosis with a trace of perihepatic ascites. 3. Inferior vena caval filter positioned at the level of the renal veins. This shows no change in position from the prior study. 3. Mild body wall anasarca. The above report was generated using voice recognition software. It may contain grammatical, syntax or spelling errors. Electronically signed by: Parminder Pineda M.D. 11/02/2017 11:28 AM Dictated Date/Time: 11/02/2017 11:24 AM
[2017-11-02] MEDS ORDERED: INSULIN HUMAN REGULAR PER UNIT 7 UNITS in SYRINGE 6.93 ML IV SCH (12:00)
--- NOTE | 2017-11-02 14:03 | Pharmacy Progress Note ---
Glycemic: Assessment & Plan Date of Service Nov 02, 2017. Assessment & Plan Assessment * Patient refused every dose of insulin yesterday (basal and bolus), with the exception of 12 units Novolog administered at dinner when BSG 369 mg/dL * BSG's significantly elevated 2nd patient non-compliance * Spoke w RN (Clyde) this AM who noted good rapport with patient and therefore better chance to convince patient of need for insulin. All 4 doses of insulin ordered today (basal x1, bolus x2, IV push x1) administered successfully * Hesitant to do anything to discourage new compliance * Will therefore not schedule overnight checks despite BSG's > 300 mg/dL today * Will also strive to prevent hypoglycemia/symptoms of hypoglycemia and loosen correction factor/carb ratio back to weight-based with moderate stress * Additional Lantus tonight only if BSG's > 140 mg/dL - weight based low stress for 140-180 mg/dL, weight based moderate stress for > 180 mg/dL * Of note, methylprednisolone ordered at 60 mg IV q6h, but patient only received 2 doses (11/01 AM and 11/01 PM) as she refused the rest. Now steroids are discontinued Plan * Basal insulin: Lantus SC BID based on BSG * 0 units for BSG < 140 mg/dL * 10 units for BSG 140-180 mg/dL * 18 units for BSG > 180 mg/dL * Correctional Insulin: Novolog Correction per scale ACHS Goal Range: Low 120 mg/dL - High 160 mg/dL Correction Factor: 20 mg/dL/unit * Prandial insulin: Per carb ratio of 1 unit per 7 grams CHO consumed Pharmacy will continue to monitor patient daily and write orders per formerly [facility] inpatient glycemic control protocol. Thanks. * Please note that the plan above was derived based on current level of insulin resistance and hospital stress. These recommendations are appropriate for inpatient admission only. Plan of care upon discharge will need to be reassessed to avoid potential outpatient hypo/hyperglycemia.
[2017-11-02] MEDS ORDERED: ERGOCALCIFEROL 50,000 INTER.UNIT CAP PO STA (16:46)
[2017-11-02] MEDS: INSULIN GLARGINE SOLOSTAR 100 UNITS/ML 3 ML PEN SC SCH (20:37)
[2017-11-02] MEDS: DOCUSATE SODIUM 100 MG CAP PO SCH (20:38)
--- NOTE | 2017-11-02 23:17 | Progress Note ---
Subjective Date of Service: Nov 02, 2017. Subjective Pt evaluation today including: conversation w/ patient, physical exam, chart review, lab review 57 yo female, reports that she continues to have dyspnea at rest. She reports that she has a nonproductive cough now. Very limited sputum today. She still requires oxygen. ROS are below. Problem List Medical Problems: (1) Acute renal disease Status: Acute (2) Acute renal failure Status: Acute (3) ELIZABETH (acute kidney injury) Status: Acute (4) ELIZABETH (acute kidney injury) Status: Acute (5) Anemia Status: Acute (6) Cellulitis Status: Acute (7) Cellulitis of both lower extremities Status: Acute (8) CHF (congestive heart failure) Status: Acute (9) CHF (congestive heart failure) Status: Acute (10) Dehydration Status: Acute (11) Fluid overload Status: Acute (12) Hypoxia Status: Acute (13) Pickwickian syndrome Status: Acute (14) Pneumonia Status: Acute (15) Respiratory failure Status: Acute (16) Sacral decubitus ulcer, stage III Status: Acute (17) UTI (urinary tract infection) Status: Acute (18) UTI (urinary tract infection) due to urinary indwelling Lerner catheter Status: Acute Review of Systems Constitutional: No fever, No chills Eyes: No worsening of vision ENT: No hearing loss Respiratory: + cough, + shortness of breath, No sputum Cardiac: No chest pain, No orthopnea Abdomen: No pain, No nausea Musculoskeletal: No joint pain Neurologic: No memory loss Psychiatric: No depression symptoms Heme: No abnormal bleeding/bruising Endo: + fatigue Skin: No rash All Other Systems: Reviewed and Negative Medications Current Inpatient Medications Medications (Trade) Dose Ordered Sig/Bruno Route Start Time Stop Time Status Last Admin Dose Admin Heparin Sodium (Porcine) (Heparin Sq 5000 Unit/0.5ml) 5,000 unit Q8 SQ 10/31/17 14:00 11/30/17 13:59 Acetaminophen (Tylenol Tab) 650 mg Q4H PRN PO 10/31/17 07:00 11/30/17 06:59 Al Hydrox/Mg Hydrox/Simethicone (Maalox Max Susp) 15 ml Q4H PRN PO 10/31/17 07:00 11/30/17 06:59 Magnesium Hydroxide (Milk Of Magnesia Susp) 30 ml Q12H PRN PO 10/31/17 07:00 11/30/17 06:59 Ondansetron HCl (Zofran Inj) 4 mg Q6H PRN IV 10/31/17 07:00 11/30/17 06:59 11/03/17 00:12 4 MG Morphine Sulfate (MoRPHine SULFATE INJ) 2 mg Q30M PRN IV 10/31/17 07:00 11/14/17 06:59 11/03/17 00:12 2 MG Polyethylene (Miralax Powder Packet) 17 gm DAILY PRN PO 10/31/17 07:00 11/30/17 06:59 Allopurinol (Zyloprim Tab) 200 mg DAILY PO 10/31/17 09:00 11/30/17 08:59 Bumetanide (Bumex Tab) 1 mg BID17 PO 10/31/17 09:00 11/30/17 08:59 11/02/17 17:34 1 MG Docusate Sodium (coLACE CAP) 100 mg HS PO 10/31/17 21:00 11/30/17 20:59 11/02/17 20:38 100 MG Multi-Ingredient Ointment (Eucerin Unscented Cr) 1 appln BID EXT 10/31/17 09:00 11/30/17 08:59 11/02/17 20:39 1 APPLN Fluconazole (Diflucan Tab) 100 mg Q2D PO 10/31/17 07:00 11/10/17 06:59 11/02/17 09:22 100 MG Heparin Sodium (Porcine) (Heparin 100 Unit/ml 5ml Flush) 5 ml BID FLUSH 10/31/17 09:00 11/30/17 08:59 Metolazone (Zaroxolyn Tab) 5 mg DAILY PO 10/31/17 09:00 11/30/17 08:59 Miconazole Nitrate (Desenex Powder) 1 appln BID EXT 10/31/17 09:00 11/30/17 08:59 11/02/17 20:38 1 APPLN Oxycodone HCl (Roxicodone Immediate Rel Tab) 5 mg Q6H PRN PO 10/31/17 07:00 11/14/17 06:59 11/02/17 00:03 5 MG Potassium Chloride (Klor-Con M10) 10 meq DAILY PO 10/31/17 09:00 11/30/17 08:59 Spironolactone (Aldactone Tab) 25 mg DAILY PO 10/31/17 09:00 11/30/17 08:59 Insulin Aspart (novoLOG ASPART) SLIDING SCALE G... ACHS SC 10/31/17 11:00 11/30/17 10:59 Future hold 11/02/17 20:36 4 UNITS Albuterol/ Ipratropium (Duoneb) 3 ml Q6R INH 10/31/17 09:00 11/30/17 08:59 11/03/17 07:11 3 ML Albuterol Sulfate (Ventolin 0.083% 2.5MG/3ML Neb) 2.5 mg Q4H PRN INH 10/31/17 07:15 11/30/17 07:14 Glucose (Glucose 40% Gel) 15-30 GRAMS 15 GRAMS... UD PRN PO 10/31/17 08:15 11/30/17 08:14 Glucose (Glucose Chew Tab) 4-8 Tablets 4 Tabl... UD PRN PO 10/31/17 08:15 11/30/17 08:14 Dextrose (Dextrose 50% 50ML Syringe) 25-50ML OF 50% DW IV FOR... UD PRN IV 10/31/17 08:15 11/30/17 08:14 Glucagon (Glucagon Inj) 1 mg UD PRN SQ 10/31/17 08:15 11/30/17 08:14 Imipenem/ Cilastatin Sodium 300 mg/Dextrose 106 ml @ 106 mls/hr Q6H IV 10/31/17 12:00 11/10/17 11:59 11/03/17 06:09 106 MLS/HR Miscellaneous Information (Consult Glycemic Management Pharmacy) 1 ea UD PRN N/A 11/01/17 20:12 12/01/17 20:11 Menthol (Nice Umberto) 1 umberto PRN PRN UMBERTO 11/02/17 01:15 12/02/17 01:14 11/02/17 01:12 1 UMBERTO Insulin Glargine (Lantus Solostar Pen) BID SC 11/02/17 21:00 12/02/17 20:59 11/02/17 20:37 18 UNITS Objective Vital Signs Date Time Temp Pulse Resp B/P (MAP) Pulse Ox O2 Delivery O2 Flow Rate FiO2 11/02/17 20:00 96 Mask 8.0 11/02/17 19:27 36.5 99 20 100/68 (79) 93 Nasal Cannula 8.0 11/02/17 19:03 97 20 96 Mask 9.0 11/02/17 16:00 Oxymask 8.0 11/02/17 15:56 36.5 102 20 115/69 (84) 90 Oxymask 9.0 11/02/17 14:34 100 20 89 Mask 9.0 11/02/17 12:00 Oxymask 8.0 11/02/17 10:29 36.7 96 20 113/67 (82) 91 Oxymask 15.0 11/02/17 08:00 Oxymask 8.0 11/02/17 07:31 36.6 99 20 111/67 (82) 91 Oxymask 10.0 11/02/17 07:10 99 20 90 Mask 7.0 11/02/17 04:00 Oxymask 8.0 11/02/17 01:30 94 20 92 Mask 7.0 11/02/17 00:00 Oxymask 8.0 11/01/17 23:27 36.5 95 20 116/64 (81) 92 Oxymask 7.0 Physical Exam Comments: General Appearance: WD/WN, no apparent distress, + obese Head: normocephalic, atraumatic Eyes: normal inspection, EOMI, sclerae normal ENT: normal ENT inspection, hearing grossly normal, pharynx normal Neck: supple, no adenopathy, thyroid normal, trachea midline Respiratory/Chest: coarse breath sounds with rhonchi. [place] anteriorly. Cardiovascular: regular rate, rhythm, no gallop, no murmur Abdomen/GI: normal bowel sounds, non tender, soft, no organomegaly Extremities/Musculoskelatal: no calf tenderness, normal capillary refill, + swelling Neurologic/Psych: alert, oriented x 3 Skin: normal color, no rash, unable to see decubitus ulcers today. d/w nurse: appear improving. Lymphatic: no adenopathy Laboratory Results Last 24 Hours Test 11/02/17 06:47 11/02/17 08:01 11/02/17 11:36 11/02/17 17:33 Bedside Glucose 305 mg/dl 316 mg/dl 184 mg/dl White Blood Count 10.94 K/uL Red Blood Count 3.68 M/uL Hemoglobin 9.6 g/dL Hematocrit 30.3 % Mean Corpuscular Volume 82.3 fL Mean Corpuscular Hemoglobin 26.1 pg Mean Corpuscular Hemoglobin Concent 31.7 g/dl Platelet Count 170 K/uL Mean Platelet Volume 11.1 fL Neutrophils (%) (Auto) 94.5 % Lymphocytes (%) (Auto) 4.1 % Monocytes (%) (Auto) 0.9 % Eosinophils (%) (Auto) 0.0 % Basophils (%) (Auto) 0.1 % Neutrophils # (Auto) 10.34 K/uL Lymphocytes # (Auto) 0.45 K/uL Monocytes # (Auto) 0.10 K/uL Eosinophils # (Auto) 0.00 K/uL Basophils # (Auto) 0.01 K/uL RDW Standard Deviation 56.3 fL RDW Coefficient of Variation 18.7 % Immature Granulocyte % (Auto) 0.4 % Immature Granulocyte # (Auto) 0.04 K/uL Sodium Level 120 mmol/L Potassium Level 4.2 mmol/L Chloride Level 79 mmol/L Carbon Dioxide Level 29 mmol/L Anion Gap 12.0 mmol/L Blood Urea Nitrogen 97 mg/dl Creatinine 1.87 mg/dl Est Creatinine Clear Calc Drug Dose 39.9 ml/min Estimated GFR () 33.5 Estimated GFR (Non- 28.9 BUN/Creatinine Ratio 52.0 Random Glucose 316 mg/dl Calcium Level 7.9 mg/dl Beta-Hydroxybutyric Acid 13.50 mg/dL Test 11/02/17 19:45 Bedside Glucose 227 mg/dl Assessment and Plan 57 y/o F Hx COPD - chronic resp failure, CKD III, chronic diastolic CHF, anemia , gout, multiple diabetic ulcers, decubitus ulcer, ROHAN, DM II, morbid obesity. Pt presents with SOB, cough, congestion and fevers. She was diagnosed with PNM a few days ago, started on PO Doxycycline and was scheduled to receive IV Primaxin this AM. On arrival to the ER the pt is afebrile, however, she is tachypneic and requiring BiPAP to maintain oxygenation. She denies CP, N/V, dysuria. Initial labs are notable for a (+) UA, leukocytosis and hyperglycemia. A CXR reveals a LLL infiltrate. the pt has had several recent admissions due to infections including UTIs, cellulitis and pneumonia. She has multiple antibiotic allergies. 1) Pneumonia with resp failure - due to multiple allergies. It appears likely that pneumonia is playing a large role, however procalcitonin was low and BNP is high. ID was consulted. will continue current antibiotics. Imipenem Will continue Duonebs and albuterol. 02 protocol. Patient continues to need oxymask. Initially was on BIPAP now on oxymask Patient reports feeling better today and sputum production decreased, showing clinical improvement 2) Acute hypoxic respiratory failure may be due to obesity hypoventialtion syndrome. pulmonary recommended right heart cath, Cardio will be consulted. 3)hyponatremia will repeat BMP tomorrow may be due to her diuretic. 4) Asymtpmatic bacteriura awaiting urine culture results. will likely not treat, 5) Multiple ulcers are being managed superficially at present - wound care consulted 6) Diastolic CHF -BNP elevated. -Patient has been improving with antibiotics and home regimen for CHF - remains on Bumex, Metolazone, Aldactone - volume status cannot be assessed clinically - would consider additional diuresis if resp status does not improve 7) CKD stage IV- creat is currently at baseline -no significant changes - will trend BMP 8) DM II - placed on sliding scale 9) COPD - appears patient does not have this diagnosis as per pulmonary. 8) Anemia - Hb is at baseline 9) ROHAN - HS BiPAP will be provided 10) Tachycardia Resolved, was treated on cardizem Continued [facility] stay due to: multiple IV medications needed, other Discharge planning: uncertain
[2017-11-03] VITALS (12 sets, daily range): BP systolic 105–142; BP diastolic 69–96; PULSE 92–113; TEMP 36.2–37; O2SAT 90–96
[2017-11-03] MEDS: MoRPHine SULFATE 2 MG/ML CARP IV PRN ×2 (00:12→23:42)
[2017-11-03] MEDS: ALBUT/IPRATROP 3MG/0.5MG NEB 3 ML VIAL INH SCH ×4 (02:14→19:41)
[2017-11-03] MEDS: HEPARIN SOD 5000 UNIT/0.5 ML CARP SQ SCH ×3 (06:00→22:00)
[2017-11-03] MEDS: IMIPENEM/CILASTATIN IV 300 MG in DEXTROSE 5% 100ML 100 ML IV SCH ×4 (06:09→23:33)
[2017-11-03] MEDS: BUMETANIDE 1 MG TAB PO SCH (08:35)
[2017-11-03] MEDS: INSULIN ASPART 100 UNITS/ML 3 ML PEN SC SCH ×4 (08:40→22:26)
[2017-11-03] MEDS: INSULIN GLARGINE SOLOSTAR 100 UNITS/ML 3 ML PEN SC SCH ×2 (08:41→22:27)
[2017-11-03] MEDS: EUCERIN CR 120 GM JAR EXT SCH ×2 (08:44→21:00)
[2017-11-03] MEDS: MICONAZOLE NITRATE POWDER 43 GM EXT SCH ×2 (08:44→22:03)
[2017-11-03] MEDS: METOLAZONE 5 MG TAB PO SCH (08:48)
[2017-11-03] MEDS: POTASSIUM CHLORIDE 10 MEQ TABCR PO SCH (08:48)
[2017-11-03] MEDS: ALLOPURINOL 100 MG TAB PO SCH (08:48)
[2017-11-03] MEDS: SPIRONOLACTONE 25 MG TAB PO SCH (08:48)
[2017-11-03 11:49] LABS: HEMATOCRIT 32.3 % (37-47); HEMOGLOBIN 10.3 g/dL (12.0-16.0); MEAN CORPUSCULAR HEMOGLOBIN 26.1 pg (25-34); MEAN CORPUSCULAR HGB CONC 31.9 g/dl (32-36); MEAN PLATELET VOLUME 10.7 fL (7.4-10.4); PLATELET COUNT 184 K/uL (130-400); RED CELL DISTRIBUTION WIDTH CV 18.5 % (11.5-14.5); RED CELL DISTRIBUTION WIDTH SD 55.5 fL (36.4-46.3); WHITE BLOOD COUNT 12.66 K/uL (4.8-10.8)
[2017-11-03 12:21] LABS: CALCIUM 7.8 mg/dl (8.5-10.1); CREATININE 1.86 mg/dl (0.60-1.20); POTASSIUM 4.7 mmol/L (3.5-5.1)
[2017-11-03] MEDS ORDERED: SODIUM CHLORIDE 0.9% 250ML 250 ML IV STA (13:12)
[2017-11-03] MEDS ORDERED: SODIUM CHLORIDE 1 GM TAB PO ONE (13:15)
--- NOTE | 2017-11-03 14:53 | Pharmacy Progress Note ---
Glycemic: Assessment & Plan Date of Service Nov 03, 2017. Assessment & Plan The patient is currently receiving * Basal insulin: Lantus SC BID based on BSG * 0 units for BSG < 140 mg/dL * 10 units for BSG 140-180 mg/dL * 18 units for BSG > 180 mg/dL * Correctional Insulin: Novolog Correction per scale ACHS Goal Range: Low 120 mg/dL - High 160 mg/dL Correction Factor: 20 mg/dL/unit * Prandial insulin: Per carb ratio of 1 unit per 7 grams CHO consumed Assessment 11/02/17 * Patient refused every dose of insulin yesterday (basal and bolus), with the exception of 12 units Novolog administered at dinner when BSG 369 mg/dL * BSG's significantly elevated 2nd patient non-compliance * Spoke w RN (Clyde) this AM who noted good rapport with patient and therefore better chance to convince patient of need for insulin. All 4 doses of insulin ordered today (basal x1, bolus x2, IV push x1) administered successfully * Hesitant to do anything to discourage new compliance * Will therefore not schedule overnight checks despite BSG's > 300 mg/dL today * Will also strive to prevent hypoglycemia/symptoms of hypoglycemia and loosen correction factor/carb ratio back to weight-based with moderate stress * Additional Lantus tonight only if BSG's > 140 mg/dL - weight based low stress for 140-180 mg/dL, weight based moderate stress for > 180 mg/dL * Of note, methylprednisolone ordered at 60 mg IV q6h, but patient only received 2 doses (11/01 AM and 11/01 PM) as she refused the rest. Now steroids are discontinued 11/03/17 * Hyperglycemia noted with BSG's ranging 184-257 mg/dL over the last 24 hours - patient has not refused any doses of insulin * Tighter control warranted, but also hesitant to make too many changes that may cause hypoglycemia or even symptoms related to lower BSG's as patient is now compliant * Steroid effects of methylprednisolone (last 11/01 PM) likely dissipated * Will make slight adjustments to Novolog (goal, correction factor, carb ratio) * Will keep Lantus dose this AM similar to yesterday, but increase this PM if BSG's remain elevated despite changes to Novolog * Still will avoid overnight check(s) to help ensure continued compliance Plan * Increase Basal insulin: Lantus SC BID based on BSG * 10 units for BSG < 140 mg/dL * 18 units for BSG 140-180 mg/dL * 22 units for BSG > 180 mg/dL * Correctional Insulin: Novolog Correction per scale ACHS Decrease Goal Range: Low 120 mg/dL - High 150 mg/dL Tighten Correction Factor: 15 mg/dL/unit * Prandial insulin: Tighten carb ratio of 1 unit per 6 grams CHO consumed Pharmacy will continue to monitor patient daily and write orders per [facility] inpatient glycemic control protocol. Thanks. * Please note that the plan above was derived based on current level of insulin resistance and hospital stress. These recommendations are appropriate for inpatient admission only. Plan of care upon discharge will need to be reassessed to avoid potential outpatient hypo/hyperglycemia.
[2017-11-03] MEDS: DOXYCYCLINE HYCLATE 100 MG CAP PO SCH ×2 (16:35→23:33)
[2017-11-03 17:03] LABS: CALCIUM 7.6 mg/dl (8.5-10.1); POTASSIUM 4.9 mmol/L (3.5-5.1)
[2017-11-03] MEDS ORDERED: SODIUM CHLORIDE 3% 500 ML BAG IV STA (17:37)
--- NOTE | 2017-11-03 17:51 | Pulmonology Progress Note ---
Pulmonary Progress Note Date of Service Nov 03, 2017. Attending Dr. Alston Subjective Patient is stable over the last 24 hours but still notes dyspnea at rest Objective Patient is able level IM bed less tachypneic but still using accessory muscles our conversation Vital signs: Stable on 7-8 liters OxyMask Respiratory: Decreased breath sounds at the bases Cardiac: S1-S2 distant heart sounds Abdomen: Distended, positive bowel sounds soft nontender Assessment & Plan 57-year-old female with acute on chronic respiratory insufficiency: 1. Pneumonia: Patient CT does suggest that there is infiltrative pattern in the right lower lobe possible even consistent with aspiration. Patient is recovering well on her current antibiotics would not change in at this time and as most aspiration only cause pneumonitis type picture not classic infection. I do suggest we move forward with a swallow study to rule out any chronic aspiration in this patient. 2. Hypoxia: Previous pulmonary function studies obtained on this patient are not consistent with COPD. Also this patient has multiple other reasons for hypoxemia such as pulmonary hypertension from possible chronic thromboembolic disease, primary pulmonary hypertension, diastolic dysfunction or obesity hypoventilation syndrome. I suggest we stabilize this patient and possibly move forward with right heart catheterization/shunt fraction evaluation for further explanation of her underlying hypoxia. Also patient will require repeat pulmonary function studies to better define her obstructive ventilatory disease. 3. IVC: Patient had an IVC catheter filter placed. She thought she had it removed but on a CT of the abdomen performed 04/29/[address]. Over a long period of time this will decrease her risk of recurrent pulmonary emboli from the lower extremities but will increase the risk of lower extremity DVT as well as inferior vena caval thrombosis. I like to repeat CT going all the way down to the abdomen and pelvis for further evaluation and verification of IVC filter. I will not be able to use contrast as the patient has renal insufficiency. #4: COPD: We will discontinue patient's Solu-Medrol as one it makes her extremely anxious and to possibly not warranted in this particular case. Data Medications: Current Inpatient Medications Medications (Trade) Dose Ordered Sig/Bruno Route Start Time Stop Time Status Last Admin Dose Admin Heparin Sodium (Porcine) (Heparin Sq 5000 Unit/0.5ml) 5,000 unit Q8 SQ 10/31/17 14:00 11/30/17 13:59 Acetaminophen (Tylenol Tab) 650 mg Q4H PRN PO 10/31/17 07:00 11/30/17 06:59 Al Hydrox/Mg Hydrox/Simethicone (Maalox Max Susp) 15 ml Q4H PRN PO 10/31/17 07:00 11/30/17 06:59 Magnesium Hydroxide (Milk Of Magnesia Susp) 30 ml Q12H PRN PO 10/31/17 07:00 11/30/17 06:59 Ondansetron HCl (Zofran Inj) 4 mg Q6H PRN IV 10/31/17 07:00 11/30/17 06:59 11/03/17 00:12 4 MG Morphine Sulfate (MoRPHine SULFATE INJ) 2 mg Q30M PRN IV 10/31/17 07:00 11/14/17 06:59 11/03/17 00:12 2 MG Polyethylene (Miralax Powder Packet) 17 gm DAILY PRN PO 10/31/17 07:00 11/30/17 06:59 Allopurinol (Zyloprim Tab) 200 mg DAILY PO 10/31/17 09:00 11/30/17 08:59 Docusate Sodium (coLACE CAP) 100 mg HS PO 10/31/17 21:00 11/30/17 20:59 11/02/17 20:38 100 MG Multi-Ingredient Ointment (Eucerin Unscented Cr) 1 appln BID EXT 10/31/17 09:00 11/30/17 08:59 11/02/17 20:39 1 APPLN Fluconazole (Diflucan Tab) 100 mg Q2D PO 10/31/17 07:00 11/10/17 06:59 11/02/17 09:22 100 MG Heparin Sodium (Porcine) (Heparin 100 Unit/ml 5ml Flush) 5 ml BID FLUSH 10/31/17 09:00 11/30/17 08:59 11/03/17 08:48 5 ML Metolazone (Zaroxolyn Tab) 5 mg DAILY PO 10/31/17 09:00 11/30/17 08:59 Miconazole Nitrate (Desenex Powder) 1 appln BID EXT 10/31/17 09:00 11/30/17 08:59 11/02/17 20:38 1 APPLN Oxycodone HCl (Roxicodone Immediate Rel Tab) 5 mg Q6H PRN PO 10/31/17 07:00 11/14/17 06:59 11/02/17 00:03 5 MG Potassium Chloride (Klor-Con M10) 10 meq DAILY PO 10/31/17 09:00 11/30/17 08:59 Spironolactone (Aldactone Tab) 25 mg DAILY PO 10/31/17 09:00 11/30/17 08:59 Insulin Aspart (novoLOG ASPART) SLIDING SCALE G... ACHS SC 10/31/17 11:00 11/30/17 10:59 Future hold 11/03/17 12:30 6 UNITS Albuterol/ Ipratropium (Duoneb) 3 ml Q6R INH 10/31/17 09:00 11/30/17 08:59 11/03/17 14:21 3 ML Albuterol Sulfate (Ventolin 0.083% 2.5MG/3ML Neb) 2.5 mg Q4H PRN INH 10/31/17 07:15 11/30/17 07:14 Glucose (Glucose 40% Gel) 15-30 GRAMS 15 GRAMS... UD PRN PO 10/31/17 08:15 11/30/17 08:14 Glucose (Glucose Chew Tab) 4-8 Tablets 4 Tabl... UD PRN PO 10/31/17 08:15 11/30/17 08:14 Dextrose (Dextrose 50% 50ML Syringe) 25-50ML OF 50% DW IV FOR... UD PRN IV 10/31/17 08:15 11/30/17 08:14 Glucagon (Glucagon Inj) 1 mg UD PRN SQ 10/31/17 08:15 11/30/17 08:14 Imipenem/ Cilastatin Sodium 300 mg/Dextrose 106 ml @ 106 mls/hr Q6H IV 10/31/17 12:00 11/10/17 11:59 11/03/17 11:40 106 MLS/HR Miscellaneous Information (Consult Glycemic Management Pharmacy) 1 ea UD PRN N/A 11/01/17 20:12 12/01/17 20:11 Menthol (Nice Marko) 1 marko PRN PRN MARKO 11/02/17 01:15 12/02/17 01:14 11/02/17 01:12 1 MARKO Insulin Glargine (Lantus Solostar Pen) BID SC 11/02/17 21:00 12/02/17 20:59 11/03/17 08:41 22 UNITS Doxycycline Hyclate (Vibramycin Cap) 100 mg BID PO 11/03/17 16:00 11/10/17 15:59 11/03/17 16:35 100 MG Sodium Chloride (Hypertonic Saline 3% Inj) 50 ml ONE STAT IV 11/03/17 17:37 11/03/17 17:38 UNV I & O: 24-Hour Column 11/04/17 08:00 Intake Total 315 ml Output Total 200 ml Balance 115 ml Vital Signs: Date Time Temp Pulse Resp B/P (MAP) Pulse Ox O2 Delivery O2 Flow Rate FiO2 11/03/17 16:21 36.2 105 18 132/96 (108) 90 Nasal Cannula 7.0 11/03/17 15:19 37.0 94 20 95 8.0 11/03/17 14:22 94 20 95 Mask 9.0 11/03/17 12:03 113 18 105/73 (84) 92 11/03/17 12:00 Mask 8.0 11/03/17 08:15 Mask 8.0 11/03/17 08:08 37.0 101 18 132/72 (92) 91 Oxymask 11/03/17 07:20 92 20 96 Mask 9.0 11/03/17 05:20 36.5 105 22 142/81 (101) 94 Oxymask 9.0 11/03/17 04:00 36.8 95 18 128/69 (88) 94 Oxymask 8.0 11/03/17 04:00 96 Mask 8.0 11/02/17 23:59 96 Mask 8.0 11/02/17 23:15 36.5 98 22 114/54 (74) 92 Oxymask 9.0 11/02/17 20:00 96 Mask 8.0 11/02/17 19:27 36.5 99 20 100/68 (79) 93 Nasal Cannula 8.0 11/02/17 19:03 97 20 96 Mask 9.0 Laboratory Results: Last 24 Hours Test 11/02/17 19:45 11/03/17 06:38 11/03/17 11:31 11/03/17 11:34 Bedside Glucose 227 mg/dl 257 mg/dl 248 mg/dl White Blood Count 12.66 K/uL Red Blood Count 3.94 M/uL Hemoglobin 10.3 g/dL Hematocrit 32.3 % Mean Corpuscular Volume 82.0 fL Mean Corpuscular Hemoglobin 26.1 pg Mean Corpuscular Hemoglobin Concent 31.9 g/dl RDW Standard Deviation 55.5 fL RDW Coefficient of Variation 18.5 % Platelet Count 184 K/uL Mean Platelet Volume 10.7 fL Sodium Level 114 mmol/L Potassium Level 4.7 mmol/L Chloride Level 77 mmol/L Carbon Dioxide Level 29 mmol/L Anion Gap 8.0 mmol/L Blood Urea Nitrogen 95 mg/dl Creatinine 1.86 mg/dl Est Creatinine Clear Calc Drug Dose 42.6 ml/min Estimated GFR () 33.7 Estimated GFR (Non- 29.1 BUN/Creatinine Ratio 51.1 Random Glucose 233 mg/dl Calcium Level 7.8 mg/dl Test 11/03/17 16:12 11/03/17 16:23 Bedside Glucose 262 mg/dl Sodium Level 113 mmol/L Potassium Level 4.9 mmol/L Chloride Level 76 mmol/L Carbon Dioxide Level 30 mmol/L Anion Gap 8.0 mmol/L Blood Urea Nitrogen 100 mg/dl Creatinine 2.00 mg/dl Est Creatinine Clear Calc Drug Dose 39.6 ml/min Estimated GFR () 30.9 Estimated GFR (Non- 26.7 BUN/Creatinine Ratio 50.0 Random Glucose 241 mg/dl Calcium Level 7.6 mg/dl
[2017-11-03] MEDS ORDERED: SODIUM CHLORIDE 3% IV ONE (18:00)
[2017-11-03 20:05] LABS: CALCIUM 7.5 mg/dl (8.5-10.1); CREATININE 2.01 mg/dl (0.60-1.20); POTASSIUM 4.8 mmol/L (3.5-5.1)
[2017-11-03] MEDS: DOCUSATE SODIUM 100 MG CAP PO SCH (21:00)
[2017-11-03] MEDS ORDERED: SODIUM CHLORIDE 3% 500 ML BAG IV ONE (21:15)
[2017-11-03] MEDS ORDERED: SODIUM CHLORIDE 3% INJ 100 ML in EMPTY BAG 0 ML IV ONE (21:30)
--- NOTE | 2017-11-03 23:41 | Progress Note ---
Subjective Date of Service: Nov 03, 2017. Subjective Pt evaluation today including: conversation w/ patient, physical exam Patient continues to require oxymask. Patient though states she has purvi improving requiring her breathing. Patient is concerned about holding her bumex as she states that she has chf and swells quickly. I had explained to her that her sodium had dropped to a critical level. Looking at telemonitor, no significant changes were noted. Problem List Medical Problems: (1) Acute renal disease Status: Acute (2) Acute renal failure Status: Acute (3) ELIZABETH (acute kidney injury) Status: Acute (4) ELIZABETH (acute kidney injury) Status: Acute (5) Anemia Status: Acute (6) Cellulitis Status: Acute (7) Cellulitis of both lower extremities Status: Acute (8) CHF (congestive heart failure) Status: Acute (9) CHF (congestive heart failure) Status: Acute (10) Dehydration Status: Acute (11) Fluid overload Status: Acute (12) Hypoxia Status: Acute (13) Pickwickian syndrome Status: Acute (14) Pneumonia Status: Acute (15) Respiratory failure Status: Acute (16) Sacral decubitus ulcer, stage III Status: Acute (17) UTI (urinary tract infection) Status: Acute (18) UTI (urinary tract infection) due to urinary indwelling Lerner catheter Status: Acute Medications Current Inpatient Medications Medications (Trade) Dose Ordered Sig/Bruno Route Start Time Stop Time Status Last Admin Dose Admin Heparin Sodium (Porcine) (Heparin Sq 5000 Unit/0.5ml) 5,000 unit Q8 SQ 10/31/17 14:00 11/30/17 13:59 Acetaminophen (Tylenol Tab) 650 mg Q4H PRN PO 10/31/17 07:00 11/30/17 06:59 Al Hydrox/Mg Hydrox/Simethicone (Maalox Max Susp) 15 ml Q4H PRN PO 10/31/17 07:00 11/30/17 06:59 11/03/17 23:49 15 ML Magnesium Hydroxide (Milk Of Magnesia Susp) 30 ml Q12H PRN PO 10/31/17 07:00 11/30/17 06:59 Ondansetron HCl (Zofran Inj) 4 mg Q6H PRN IV 10/31/17 07:00 11/30/17 06:59 11/03/17 00:12 4 MG Morphine Sulfate (MoRPHine SULFATE INJ) 2 mg Q30M PRN IV 10/31/17 07:00 11/14/17 06:59 11/03/17 23:42 2 MG Polyethylene (Miralax Powder Packet) 17 gm DAILY PRN PO 10/31/17 07:00 11/30/17 06:59 Allopurinol (Zyloprim Tab) 200 mg DAILY PO 10/31/17 09:00 11/30/17 08:59 Docusate Sodium (coLACE CAP) 100 mg HS PO 10/31/17 21:00 11/30/17 20:59 11/02/17 20:38 100 MG Multi-Ingredient Ointment (Eucerin Unscented Cr) 1 appln BID EXT 10/31/17 09:00 11/30/17 08:59 11/02/17 20:39 1 APPLN Fluconazole (Diflucan Tab) 100 mg Q2D PO 10/31/17 07:00 11/10/17 06:59 11/02/17 09:22 100 MG Heparin Sodium (Porcine) (Heparin 100 Unit/ml 5ml Flush) 5 ml BID FLUSH 10/31/17 09:00 11/30/17 08:59 11/03/17 08:48 5 ML Metolazone (Zaroxolyn Tab) 5 mg DAILY PO 10/31/17 09:00 11/30/17 08:59 Miconazole Nitrate (Desenex Powder) 1 appln BID EXT 10/31/17 09:00 11/30/17 08:59 11/03/17 22:03 1 APPLN Oxycodone HCl (Roxicodone Immediate Rel Tab) 5 mg Q6H PRN PO 10/31/17 07:00 11/14/17 06:59 11/02/17 00:03 5 MG Potassium Chloride (Klor-Con M10) 10 meq DAILY PO 10/31/17 09:00 11/30/17 08:59 Spironolactone (Aldactone Tab) 25 mg DAILY PO 10/31/17 09:00 11/30/17 08:59 Insulin Aspart (novoLOG ASPART) SLIDING SCALE G... ACHS SC 10/31/17 11:00 11/30/17 10:59 Future hold 11/03/17 22:26 6 UNITS Albuterol/ Ipratropium (Duoneb) 3 ml Q6R INH 10/31/17 09:00 11/30/17 08:59 11/04/17 07:26 3 ML Albuterol Sulfate (Ventolin 0.083% 2.5MG/3ML Neb) 2.5 mg Q4H PRN INH 10/31/17 07:15 11/30/17 07:14 Glucose (Glucose 40% Gel) 15-30 GRAMS 15 GRAMS... UD PRN PO 10/31/17 08:15 11/30/17 08:14 Glucose (Glucose Chew Tab) 4-8 Tablets 4 Tabl... UD PRN PO 10/31/17 08:15 11/30/17 08:14 Dextrose (Dextrose 50% 50ML Syringe) 25-50ML OF 50% DW IV FOR... UD PRN IV 10/31/17 08:15 11/30/17 08:14 Glucagon (Glucagon Inj) 1 mg UD PRN SQ 10/31/17 08:15 11/30/17 08:14 Imipenem/ Cilastatin Sodium 300 mg/Dextrose 106 ml @ 106 mls/hr Q6H IV 10/31/17 12:00 11/10/17 11:59 11/04/17 06:02 106 MLS/HR Miscellaneous Information (Consult Glycemic Management Pharmacy) 1 ea UD PRN N/A 11/01/17 20:12 12/01/17 20:11 Menthol (Nice Umberto) 1 umberto PRN PRN UMBERTO 11/02/17 01:15 12/02/17 01:14 11/02/17 01:12 1 UMBERTO Insulin Glargine (Lantus Solostar Pen) BID SC 11/02/17 21:00 12/02/17 20:59 11/03/17 22:27 22 UNITS Doxycycline Hyclate (Vibramycin Cap) 100 mg BID PO 11/03/17 16:00 11/10/17 15:59 11/03/17 23:33 100 MG Objective Vital Signs Date Time Temp Pulse Resp B/P (MAP) Pulse Ox O2 Delivery O2 Flow Rate FiO2 11/03/17 23:36 36.4 112 24 122/72 (89) 90 Diffusion Mask 9.0 11/03/17 19:41 101 22 95 Mask 9.0 11/03/17 17:00 90 Oxymask 8.0 11/03/17 16:21 36.2 105 18 132/96 (108) 90 Nasal Cannula 7.0 11/03/17 15:19 37.0 94 20 95 8.0 11/03/17 14:22 94 20 95 Mask 9.0 11/03/17 12:03 113 18 105/73 (84) 92 11/03/17 12:00 Mask 8.0 11/03/17 08:15 Mask 8.0 11/03/17 08:08 37.0 101 18 132/72 (92) 91 Oxymask 11/03/17 07:20 92 20 96 Mask 9.0 11/03/17 05:20 36.5 105 22 142/81 (101) 94 Oxymask 9.0 11/03/17 04:00 36.8 95 18 128/69 (88) 94 Oxymask 8.0 11/03/17 04:00 96 Mask 8.0 11/02/17 23:59 96 Mask 8.0 Physical Exam Comments: General Appearance: WD/WN, no apparent distress, + obese Head: normocephalic, atraumatic Eyes: normal inspection, EOMI, sclerae normal ENT: normal ENT inspection, hearing grossly normal, pharynx normal Neck: supple, no adenopathy, thyroid normal, trachea midline Respiratory/Chest: improved breath sounds anteriorly. Cardiovascular: regular rate, rhythm, no gallop, no murmur Abdomen/GI: normal bowel sounds, non tender, soft, no organomegaly Extremities/Musculoskelatal: no calf tenderness, normal capillary refill, + swelling Neurologic/Psych: alert, oriented x 3 Skin: normal color, no rash, unable to see decubitus ulcers today. d/w nurse: appear improving. No change today Lymphatic: no adenopathy Laboratory Results Last 24 Hours Test 11/03/17 06:38 11/03/17 11:31 11/03/17 11:34 11/03/17 16:12 Bedside Glucose 257 mg/dl 248 mg/dl 262 mg/dl White Blood Count 12.66 K/uL Red Blood Count 3.94 M/uL Hemoglobin 10.3 g/dL Hematocrit 32.3 % Mean Corpuscular Volume 82.0 fL Mean Corpuscular Hemoglobin 26.1 pg Mean Corpuscular Hemoglobin Concent 31.9 g/dl RDW Standard Deviation 55.5 fL RDW Coefficient of Variation 18.5 % Platelet Count 184 K/uL Mean Platelet Volume 10.7 fL Sodium Level 114 mmol/L Potassium Level 4.7 mmol/L Chloride Level 77 mmol/L Carbon Dioxide Level 29 mmol/L Anion Gap 8.0 mmol/L Blood Urea Nitrogen 95 mg/dl Creatinine 1.86 mg/dl Est Creatinine Clear Calc Drug Dose 42.6 ml/min Estimated GFR () 33.7 Estimated GFR (Non- 29.1 BUN/Creatinine Ratio 51.1 Random Glucose 233 mg/dl Calcium Level 7.8 mg/dl Test 11/03/17 16:23 11/03/17 19:38 11/03/17 20:19 11/03/17 22:51 Sodium Level 113 mmol/L 113 mmol/L 117 mmol/L Potassium Level 4.9 mmol/L 4.8 mmol/L Chloride Level 76 mmol/L 76 mmol/L Carbon Dioxide Level 30 mmol/L 30 mmol/L Anion Gap 8.0 mmol/L 8.0 mmol/L Blood Urea Nitrogen 100 mg/dl 101 mg/dl Creatinine 2.00 mg/dl 2.01 mg/dl Est Creatinine Clear Calc Drug Dose 39.6 ml/min 39.4 ml/min Estimated GFR () 30.9 30.7 Estimated GFR (Non- 26.7 26.5 BUN/Creatinine Ratio 50.0 50.4 Random Glucose 241 mg/dl 208 mg/dl Calcium Level 7.6 mg/dl 7.5 mg/dl Bedside Glucose 250 mg/dl Assessment and Plan 57 y/o F Hx COPD - chronic resp failure, CKD III, chronic diastolic CHF, anemia , gout, multiple diabetic ulcers, decubitus ulcer, ROHAN, DM II, morbid obesity. Pt presents with SOB, cough, congestion and fevers. She was diagnosed with PNM a few days ago, started on PO Doxycycline and was scheduled to receive IV Primaxin this AM. On arrival to the ER the pt is afebrile, however, she is tachypneic and requiring BiPAP to maintain oxygenation. She denies CP, N/V, dysuria. Initial labs are notable for a (+) UA, leukocytosis and hyperglycemia. A CXR reveals a LLL infiltrate. the pt has had several recent admissions due to infections including UTIs, cellulitis and pneumonia. She has multiple antibiotic allergies. 1) Pneumonia with resp failure - due to multiple allergies. It appears likely that pneumonia is playing a large role, however procalcitonin was low and BNP is high. ID was consulted. will continue current antibiotics. Cont Imipenem started doxy over weekend. Will continue Duonebs and albuterol. 02 protocol. Patient continues to need oxymask. Initially was on BIPAP now on oxymask Patient reports feeling better today and sputum production decreased, showing clinical improvement 2) Acute hypoxic respiratory failure may be due to obesity hypoventialtion syndrome. pulmonary recommended right heart cath, Cardio will be consulted. 3)hyponatremia severe level of hyponatremia. thankfully patient is asymptomatic will hold bumex. will give 50 ml of NA 3% and recheck in 1 hour. Level remained low. oredered 100 ml of NA 3% 4) Asymtpmatic bacteriura MDR klebsiella. D/W ID. will hold treatment as patient is asymptomatic. No need to treat. 5) Multiple ulcers are being managed superficially at present - wound care consulted 6) Diastolic CHF -BNP elevated. -Patient has been improving with antibiotics and home regimen for CHF - remains on Bumex, Metolazone, Aldactone - volume status cannot be assessed clinically - would consider additional diuresis if resp status does not improve 7) CKD stage IV- creat is currently at baseline -no significant changes - will trend BMP 8) DM II - placed on sliding scale 9) COPD - appears patient does not have this diagnosis as per pulmonary. 8) Anemia - Hb is at baseline 9) ROHAN - HS BiPAP will be provided 10) Tachycardia Resolved, was treated on cardizem Continued [facility] stay due to: multiple IV medications needed, other Discharge planning: uncertain
[2017-11-04] VITALS (8 sets, daily range): BP systolic 119–129; BP diastolic 61–66; PULSE 98–135; TEMP 36.5–36.6; O2SAT 90–97
[2017-11-04] MEDS: ALBUT/IPRATROP 3MG/0.5MG NEB 3 ML VIAL INH SCH ×4 (01:21→20:39)
[2017-11-04] MEDS ORDERED: INSULIN ASPART 100 UNITS/ML 3 ML PEN SC SCH (02:00)
[2017-11-04] MEDS: HEPARIN SOD 5000 UNIT/0.5 ML CARP SQ SCH ×3 (06:00→21:00)
[2017-11-04] MEDS: IMIPENEM/CILASTATIN IV 300 MG in DEXTROSE 5% 100ML 100 ML IV SCH ×2 (06:02→12:38)
[2017-11-04] MEDS: INSULIN ASPART 100 UNITS/ML 3 ML PEN SC SCH ×4 (06:30→21:00)
[2017-11-04 08:59] LABS: HEMATOCRIT 31.8 % (37-47); HEMOGLOBIN 10.5 g/dL (12.0-16.0); MEAN CELL VOLUME 80.5 fL (80-100); MEAN CORPUSCULAR HEMOGLOBIN 26.6 pg (25-34); MEAN PLATELET VOLUME 10.8 fL (7.4-10.4); NUCLEATED RED BLOOD CELL ABS 0.02 K/uL (0-0); PLATELET COUNT 217 K/uL (130-400); RED CELL DISTRIBUTION WIDTH CV 18.4 % (11.5-14.5); WHITE BLOOD COUNT 16.76 K/uL (4.8-10.8)
[2017-11-04] MEDS: POTASSIUM CHLORIDE 10 MEQ TABCR PO SCH (09:00)
[2017-11-04] MEDS: EUCERIN CR 120 GM JAR EXT SCH ×2 (09:00→20:58)
[2017-11-04] MEDS: METOLAZONE 5 MG TAB PO SCH (09:00)
[2017-11-04] MEDS: SPIRONOLACTONE 25 MG TAB PO SCH (09:00)
[2017-11-04] MEDS: ALLOPURINOL 100 MG TAB PO SCH (09:00)
[2017-11-04] MEDS: FLUCONAZOLE 100 MG TAB PO SCH (09:23)
[2017-11-04] MEDS: MICONAZOLE NITRATE POWDER 43 GM EXT SCH ×2 (09:23→20:58)
[2017-11-04] MEDS: DOXYCYCLINE HYCLATE 100 MG CAP PO SCH ×2 (09:25→21:05)
[2017-11-04] MEDS: INSULIN GLARGINE SOLOSTAR 100 UNITS/ML 3 ML PEN SC SCH ×2 (09:33→21:04)
[2017-11-04 09:35] LABS: CALCIUM 7.9 mg/dl (8.5-10.1); CREATININE 1.76 mg/dl (0.60-1.20); POTASSIUM 4.7 mmol/L (3.5-5.1)
--- NOTE | 2017-11-04 10:24 | Pharmacy Progress Note ---
Pharmacy Glycemic Short Note 2 Date of Service Nov 04, 2017. OUTPATIENT ANTIDIABETIC REGIMEN: * Glimepiride 6mg daily * Novolog SSI * HbA1c= 7.8% from 10/08/17 ASSESSMENT: 11/04/17 * Patient received 76 units of insulin yesterday with BSGs ranging from 125-262 mg/dL * Fasting significantly improved this AM: 125 mg/dL - she will receive a lower dose of basal but I'm okay with this as it looks like previous admissions w/o steroids, her requirements were ~20-25 units/day * Will continue the same CF/CR for now since her postprandial BSGs were still elevated yesterday. May need to loosen if BSGs continue to drop. 11/03/17 * Hyperglycemia noted with BSG's ranging 184-257 mg/dL over the last 24 hours - patient has not refused any doses of insulin * Tighter control warranted, but also hesitant to make too many changes that may cause hypoglycemia or even symptoms related to lower BSG's as patient is now compliant * Steroid effects of methylprednisolone (last 11/01 PM) likely dissipated * Will make slight adjustments to Novolog (goal, correction factor, carb ratio) * Will keep Lantus dose this AM similar to yesterday, but increase this PM if BSG's remain elevated despite changes to Novolog * Still will avoid overnight check(s) to help ensure continued compliance PLAN FOR INPATIENT GLYCEMIC CONTROL: * Hold outpatient oral diabetes medications * Basal insulin - no change * Lantus 10 units SQ BID for BSG < 140 * Lantus 18 units SQ BID for BSG 140-180 * Lantus 22 units SQ BID for BSG > 180 * Bolus insulin - no change * NovoLog per scale ACHS or Q6hrs while NPO * Goal Range: Low 120 mg/dL - High 150 mg/dL * Correction Factor: 15 mg/dL/unit * Nutritional / Prandial insulin per carb ratio of 1 unit per 6 grams CHO consumed PLAN FOR DISCHARGE: * A1c is 7.8% - could be slightly improved * Recommend f/u with outpatient provider for adjustments
[2017-11-04 11:35] LABS: POTASSIUM RANDOM URINE 14.7 mEq/L
--- NOTE | 2017-11-04 11:57 | Progress Note ---
Subjective Date of Service: Nov 04, 2017. Subjective Pt evaluation today including: conversation w/ patient, physical exam, chart review, lab review, conversation w/ loans consultant, review of inpatient medication list Voiding: no voiding problems Problem List Medical Problems: (1) Acute renal disease Status: Acute (2) Acute renal failure Status: Acute (3) ELIZABETH (acute kidney injury) Status: Acute (4) ELIZABETH (acute kidney injury) Status: Acute (5) Anemia Status: Acute (6) Cellulitis Status: Acute (7) Cellulitis of both lower extremities Status: Acute (8) CHF (congestive heart failure) Status: Acute (9) CHF (congestive heart failure) Status: Acute (10) Dehydration Status: Acute (11) Fluid overload Status: Acute (12) Hypoxia Status: Acute (13) Pickwickian syndrome Status: Acute (14) Pneumonia Status: Acute (15) Respiratory failure Status: Acute (16) Sacral decubitus ulcer, stage III Status: Acute (17) UTI (urinary tract infection) Status: Acute (18) UTI (urinary tract infection) due to urinary indwelling Lerner catheter Status: Acute Review of Systems Review of system; morbidly obese Constitutional: No fever / no chills / no sweats /positive for weakness and fatigue Eyes: no blurring of vision / no eye pain / no discharge / no redness ENT: no hearing loss / no epistaxis /no swallowing problems Respiratory: Positive for cough / no wheezing /positive for SOB / no hemoptysis Cardiovascular: no Chest pain / no lower extremity edema / no palpitation Abdomen: no pain / no nausea / no vomiting / no constipation Musculoskeletal: no joint pain / no muscle pain / no joint swelling, bilateral lower extremity significant wounds Genitourinary: no dysuria / no incontinence / no urinary retention Neurologic: no focal weakness / no numbness/tingling / no ataxia Psychiatric: no depression symptoms / no anxiety / no insomnia Endocrine: no excessive thirst / no excessive urination Hematologic: no abnormal bleeding / no bruising / no LN swelling Skin: No rash / no pallor Objective Vital Signs Date Time Temp Pulse Resp B/P (MAP) Pulse Ox O2 Delivery O2 Flow Rate FiO2 11/04/17 07:39 36.6 99 18 122/61 (81) 93 Oxymask 8.0 11/04/17 07:26 101 20 91 Mask 9.0 11/04/17 00:00 Oxymask 8.0 11/03/17 23:36 36.4 112 24 122/72 (89) 90 Diffusion Mask 9.0 11/03/17 20:00 95 Oxymask 8.0 11/03/17 19:41 101 22 95 Mask 9.0 11/03/17 17:00 90 Oxymask 8.0 11/03/17 16:21 36.2 105 18 132/96 (108) 90 Nasal Cannula 7.0 11/03/17 15:19 37.0 94 20 95 8.0 11/03/17 14:22 94 20 95 Mask 9.0 11/03/17 12:03 113 18 105/73 (84) 92 11/03/17 12:00 Mask 8.0 Physical Exam Comments: Physical examination, morbidly obese General patient appears to be comfortable, not in acute distress HEENT: Atraumatic , normocephalic /no jaundice /no pallor /anicteric /no dry mucous membrane /normal external ear inspection Neck: Supple /at the base of the neck she has swelling 5.5 cm/central trach Heart: S1/S2 normal/regular rate and rhythm/no gallop /no rub /no murmur Lungs: Decreased air entry bilaterally/normal chest with expansion/bilateral scattered rhonchi/no rales/minimal wheezing/no use of accessory muscles of respiration Abdomen: Soft/nontender/no guarding/no rebound/no organomegaly/no pulsatile mass Musculoskeletal: No swelling/no edema/discoloration of skin, with bilateral ulcers on calf muscle Neuro exam: Awake alert oriented 3/cranial nerves II through XII appear to be intact/sensation intact/moves all extremities/no abnormal movements Psychiatric evaluation: No depressed mood/normal affect Skin: No rash on exposed skin area/no erythema, ulcers in both lower extremities as mentioned above Extremity: Normal pulse/no pitting edema/no clubbing or cyanosis Endocrine/lymphatic: No obvious lymphadenopathy /no lymphedema Laboratory Results Last 24 Hours Test 11/03/17 11:31 11/03/17 11:34 11/03/17 16:12 11/03/17 16:23 White Blood Count 12.66 K/uL Red Blood Count 3.94 M/uL Hemoglobin 10.3 g/dL Hematocrit 32.3 % Mean Corpuscular Volume 82.0 fL Mean Corpuscular Hemoglobin 26.1 pg Mean Corpuscular Hemoglobin Concent 31.9 g/dl RDW Standard Deviation 55.5 fL RDW Coefficient of Variation 18.5 % Platelet Count 184 K/uL Mean Platelet Volume 10.7 fL Sodium Level 114 mmol/L 113 mmol/L Potassium Level 4.7 mmol/L 4.9 mmol/L Chloride Level 77 mmol/L 76 mmol/L Carbon Dioxide Level 29 mmol/L 30 mmol/L Anion Gap 8.0 mmol/L 8.0 mmol/L Blood Urea Nitrogen 95 mg/dl 100 mg/dl Creatinine 1.86 mg/dl 2.00 mg/dl Est Creatinine Clear Calc Drug Dose 42.6 ml/min 39.6 ml/min Estimated GFR () 33.7 30.9 Estimated GFR (Non- 29.1 26.7 BUN/Creatinine Ratio 51.1 50.0 Random Glucose 233 mg/dl 241 mg/dl Calcium Level 7.8 mg/dl 7.6 mg/dl Bedside Glucose 248 mg/dl 262 mg/dl Test 11/03/17 19:38 11/03/17 20:19 11/03/17 22:51 11/04/17 07:34 Sodium Level 113 mmol/L 117 mmol/L Potassium Level 4.8 mmol/L Chloride Level 76 mmol/L Carbon Dioxide Level 30 mmol/L Anion Gap 8.0 mmol/L Blood Urea Nitrogen 101 mg/dl Creatinine 2.01 mg/dl Est Creatinine Clear Calc Drug Dose 39.4 ml/min Estimated GFR () 30.7 Estimated GFR (Non- 26.5 BUN/Creatinine Ratio 50.4 Random Glucose 208 mg/dl Calcium Level 7.5 mg/dl Bedside Glucose 250 mg/dl 125 mg/dl Test 11/04/17 08:40 White Blood Count 16.76 K/uL Red Blood Count 3.95 M/uL Hemoglobin 10.5 g/dL Hematocrit 31.8 % Mean Corpuscular Volume 80.5 fL Mean Corpuscular Hemoglobin 26.6 pg Mean Corpuscular Hemoglobin Concent 33.0 g/dl RDW Standard Deviation 54.0 fL RDW Coefficient of Variation 18.4 % Platelet Count 217 K/uL Mean Platelet Volume 10.8 fL Nucleated RBC Absolute Count (auto) 0.02 K/uL Nucleated Red Blood Cells % 0.1 % Sodium Level 113 mmol/L Potassium Level 4.7 mmol/L Chloride Level 75 mmol/L Carbon Dioxide Level 28 mmol/L Anion Gap 10.0 mmol/L Blood Urea Nitrogen 95 mg/dl Creatinine 1.76 mg/dl Est Creatinine Clear Calc Drug Dose 45.0 ml/min Estimated GFR () 36.1 Estimated GFR (Non- 31.1 BUN/Creatinine Ratio 53.8 Random Glucose 125 mg/dl Calcium Level 7.9 mg/dl Assessment and Plan 57-year-old female with past medical history of morbid obesity, chronic respiratory failure on home oxygen, chronic kidney disease stage III, chronic diastolic congestive heart failure, gout, diabetes mellitus type 2 with bilateral lower extremity diabetic foot ulcers, and neck swelling that the patient stated it has been investigated before and turned out to be nonmalignant. She presented to the hospital with left lower lobe pneumonia Assessment Acute on chronic hypoxic respiratory failure secondary to below Left lower lobe pneumonia/community-acquired Obesity hypoventilation syndrome COPD without exacerbation Acute on chronic hyponatremia Bilateral lower extremity ulcers Diabetes mellitus type 2 Asymptomatic bacteriuria Diastolic congestive heart failure/chronic not in exacerbation Morbid obesity Obstructive sleep apnea Plan Oxygen supplement as per protocol Follow-up blood culture/sputum culture Urine legionella antigen Continue imipenem/doxy Start patient on lactobacillus to prevent C. difficile Continue home medications IV fluid hydration as needed Monitor labs in a.m. Bronchodilators Monitor oxygen saturation DVT prophylaxis/heparin subcutaneous Hyponatremia/failure to thrive/generalized fatigue, multifactorial, anorexia, decreased solute intake, Amazingly patient is asymptomatic Status post holding Bumex. Status post 50 ml of NA 3% followed by 100 ml of NA 3% given yesterday check serum and urine osmolality , [R/O hyponatremia with low osmolality] check TSH and cortisol level order urine sodium and potassium consider sodium tablets if sodium level do not improve Nephrology consult if needed if sodium level fail to rise Consider starting Tolvaptan while inpatient, to monitor closely sodium level but will leave this decision up to riveter helper as he should be consulted prior to starting tolvaptan. Monitor sodium level closely/every 8 hours, avoid correcting sodium with a rate faster than 6 mmol per day Check orthostatic vitals daily Avoid a rate of correction > 1 mmol/4 hours INF hydration Continue boost supplement Continued [facility] stay due to: multiple IV medications needed, other Discharge planning: uncertain
[2017-11-04 12:10] LABS: CREATININE 1.81 mg/dl (0.60-1.20); POTASSIUM 4.7 mmol/L (3.5-5.1)
--- NOTE | 2017-11-04 12:51 | Wound Progress Note: Inpatient ---
Wound Progress Note Date of Service Nov 04, 2017. Subjective Pt evaluation today including: conversation w/ patient, physical exam, chart review Patient was recently admitted to [facility] for treatment of pneumonia. Patient is well-known to the wound center with a chronic stage IV pressure ulcer to the sacral region as well as multiple ulcerations to the right lower extremity and heel region. Patient currently denies any significant pain in these areas. Patient denies any fever chills or night sweats in the last 24 hours. Patient states her breathing has improved over the past day. Patient denies any other systemic complaints at this time. Objective Vital Signs Date Time Temp Pulse Resp B/P (MAP) Pulse Ox O2 Delivery O2 Flow Rate FiO2 11/04/17 07:39 36.6 99 18 122/61 (81) 93 Oxymask 8.0 11/04/17 07:26 101 20 91 Mask 9.0 11/04/17 00:00 Oxymask 8.0 11/03/17 23:36 36.4 112 24 122/72 (89) 90 Diffusion Mask 9.0 11/03/17 20:00 95 Oxymask 8.0 11/03/17 19:41 101 22 95 Mask 9.0 11/03/17 17:00 90 Oxymask 8.0 11/03/17 16:21 36.2 105 18 132/96 (108) 90 Nasal Cannula 7.0 11/03/17 15:19 37.0 94 20 95 8.0 11/03/17 14:22 94 20 95 Mask 9.0 Physical Exam Notes: Patient's vital signs were reviewed and found to be unremarkable patient is afebrile. The ulcerative site on the right heel region as well as right Achilles area show distinct improvement. There is eschar and slough present in the base of the sites. There is no active drainage or odor noted. No periwound erythema. No tenderness or fluctuance to palpation noted. Distal neurovascular bundles intact. Laboratory Results Last 24 Hours Test 11/03/17 16:12 11/03/17 16:23 11/03/17 19:38 11/03/17 20:19 Bedside Glucose 262 mg/dl 250 mg/dl Sodium Level 113 mmol/L 113 mmol/L Potassium Level 4.9 mmol/L 4.8 mmol/L Chloride Level 76 mmol/L 76 mmol/L Carbon Dioxide Level 30 mmol/L 30 mmol/L Anion Gap 8.0 mmol/L 8.0 mmol/L Blood Urea Nitrogen 100 mg/dl 101 mg/dl Creatinine 2.00 mg/dl 2.01 mg/dl Est Creatinine Clear Calc Drug Dose 39.6 ml/min 39.4 ml/min Estimated GFR () 30.9 30.7 Estimated GFR (Non- 26.7 26.5 BUN/Creatinine Ratio 50.0 50.4 Random Glucose 241 mg/dl 208 mg/dl Calcium Level 7.6 mg/dl 7.5 mg/dl Test 11/03/17 22:51 11/04/17 00:00 11/04/17 07:34 11/04/17 08:40 Sodium Level 117 mmol/L 113 mmol/L Urine Osmolality 256 mOms/kg Urine Random Sodium 9 mEq/L Urine Random Potassium 14.7 mEq/L Bedside Glucose 125 mg/dl White Blood Count 16.76 K/uL Red Blood Count 3.95 M/uL Hemoglobin 10.5 g/dL Hematocrit 31.8 % Mean Corpuscular Volume 80.5 fL Mean Corpuscular Hemoglobin 26.6 pg Mean Corpuscular Hemoglobin Concent 33.0 g/dl RDW Standard Deviation 54.0 fL RDW Coefficient of Variation 18.4 % Platelet Count 217 K/uL Mean Platelet Volume 10.8 fL Nucleated RBC Absolute Count (auto) 0.02 K/uL Nucleated Red Blood Cells % 0.1 % Potassium Level 4.7 mmol/L Chloride Level 75 mmol/L Carbon Dioxide Level 28 mmol/L Anion Gap 10.0 mmol/L Blood Urea Nitrogen 95 mg/dl Creatinine 1.76 mg/dl Est Creatinine Clear Calc Drug Dose 45.0 ml/min Estimated GFR () 36.1 Estimated GFR (Non- 31.1 BUN/Creatinine Ratio 53.8 Random Glucose 125 mg/dl Calcium Level 7.9 mg/dl Test 11/04/17 11:14 11/04/17 11:25 11/04/17 11:51 Osmolality 275 mOsm/kg Sodium Level 113 mmol/L Potassium Level 4.7 mmol/L Chloride Level 74 mmol/L Carbon Dioxide Level 28 mmol/L Anion Gap 10.0 mmol/L Blood Urea Nitrogen 98 mg/dl Creatinine 1.81 mg/dl Est Creatinine Clear Calc Drug Dose 43.8 ml/min Estimated GFR () 34.9 Estimated GFR (Non- 30.1 BUN/Creatinine Ratio 54.3 Random Glucose 124 mg/dl Calcium Level 8.0 mg/dl Thyroid Stimulating Hormone (TSH) 0.849 uIu/ml Bedside Glucose 130 mg/dl Assessment and Plan Assessment: Stage II pressure ulcer right heel Stage III pressure ulcer Achilles region Plan at this time besides the require debridement. With patient's permission and after the application of topical Xylocaine 4% the sites were debrided with a #5 curette, scissors and forceps. Eschar overlying slough and some subcutaneous tissue was removed. Minimal bleeding occurred which was controlled with direct pressure. The sites will continue to be dressed as before with Adaptic and Aquacel Ag dressings changed daily. Patient will have waffle boots applied. Sacral wound will continue to be managed as before. Patient will continue to be monitored during her hospitalization followed up in the outpatient clinic upon discharge. This represented an excisional debridement of less than 20 cm.
[2017-11-04 16:52] LABS: CALCIUM 7.7 mg/dl (8.5-10.1); CREATININE 1.85 mg/dl (0.60-1.20); POTASSIUM 4.6 mmol/L (3.5-5.1)
[2017-11-04] MEDS: FUROSEMIDE INJ 20 MG in SYRINGE 0 ML IV SCH ×2 (17:16→20:59)
[2017-11-04] MEDS: SODIUM CHLORIDE 0.9% 1000ML 1,000 ML IV SCH (17:16)
--- NOTE | 2017-11-04 17:44 | NEPHROLOGY CONSULTATION ---
DATE OF CONSULTATION: 11/04/2017 ATTENDING OF RECORD: Dr. Bayron Sharma. REASON FOR CONSULTATION: Hyponatremia. HISTORY OF PRESENT ILLNESS: This is a 57-year-old female with a history of COPD as well as underlying CKD, stage III, whose creatinine has been around 1.82, who was admitted on the with worsening shortness of breath. The patient does have a chronic leg ulcers as well as underlying diastolic heart failure. The patient did present with tachypnea and did require BIPAP initially. The patient has been on imipenem, which is in D5W at 100 mL, which she gets q. 6 hours. So, she is getting 400 mL of free water a day from the imipenem. The patient's sodium levels were 128 on admission on the and down to 120 on the , 114 on the and 113 on the . The patient did receive 3% normal saline 50 mL last night at 06:00 p.m. and then 100 mL of 3% normal saline last night at 09:30. Sodium level temporarily went up to 117 and then went back down to 113. Currently placed on a 1-liter fluid restriction. Urine osmolality today was 256. TSH level was normal at 0.849. Cortisol will be checked tomorrow morning. The patient was on prednisone during the last hospitalization, so there could be a sign of adrenal insufficiency contributing. The patient also suffers from chronic pain as well as underlying COPD, so could have an element of SIADH as well. The patient during her multiple other previous hospitalizations, did not have an issue with hyponatremia in the past. This is new. Blood pressures are stable in the 120s/60s. PAST MEDICAL AND SURGICAL HISTORY: Stage III/IV CKD with baseline creatinine around 2, diabetes, COPD, chronic decubitus ulcers, right-sided heart failure, obesity, chronic Lerner, gout, multiple PICC lines, left hip fracture requiring an ORIF, IVC filter and . FAMILY HISTORY: Heart disease. SOCIAL HISTORY: Former smoker. No drugs and no alcohol. Currently, residing in a alf. HOME MEDICATIONS: Significant for Bumex 1 tab p.o. b.i.d., imipenem 300 mg IV q. 6 hours, metolazone weekly, and spironolactone 25 mg a day. CURRENT MEDICATIONS: Reviewed REVIEW OF SYSTEMS: Positive shortness of breath. The patient though is happy with her leg swelling and her chronic wounds are healing up. Decreased appetite. No chest pain. No nausea or vomiting. No diarrhea or constipation. No headaches. No blurry vision. All other review of systems is otherwise negative. PHYSICAL EXAMINATION: VITAL SIGNS: Temperature 36.6, pulse 99, respiratory rate is 20, blood pressure 119/66, and satting 90% on 9-liter OxyMask. In's 945 and out's 950. Unclear if weights are accurate. Weight was 106 kilos on November 02. On the , it went up to 118 kilos. GENERAL: Awake, alert, and oriented x3. EYES: No scleral icterus. ENT: Moist mucous membranes. NECK: Supple. PULMONARY: Decreased breath sounds at the bases. CARDIAC: Regular with ectopy. ABDOMEN: Bowel sounds positive. Soft and nontender. EXTREMITIES: Multiple decubitus ulcers. NEUROLOGICALLY: Nonfocal. DERMATOLOGIC: Multiple decubitus ulcers. LABORATORIES: Currently pending. Last labs have a sodium level of 113, potassium 4.7, chloride 74, bicarbonate 28, BUN is 98, creatinine is 1.81, glucose 124, and calcium is 8. TSH 0.849. White count 16, H&H 10 and 31, and platelet count is 217. INR is 1.3. Urine osmolality of 256 with urine random sodium of 9. Flu is negative. Abdominal CT showed bibasilar parenchymal infiltrates. Findings suggesting developing hepatic cirrhosis with a trace amount of perihepatic ascites. IVC filter is in position. Mild body wall anasarca. IMPRESSION AND PLAN: Hyponatremia: Difficult to research hydrologist volume status in this obese patient with possible underlying cirrhosis and chronic wounds. When looking at the patient today compared to previous hospitalizations, volume status is much improved. I would continue the fluid restriction of 1 liter. In my opinion, the patient has an element of SIADH. TSH levels are normal. Cortisol levels will be checked tomorrow morning. Currently, on a fluid restriction. Would start normal saline and increase the Bumex and/or diuretics. Currently on spironolactone. We will stop the spironolactone and stop the metolazone and give IV Lasix in addition to normal saline and check urine osmolality and continue to check serum sodiums. If the urine osmolality below 300,sodium level should start to improve in the setting of fluid restriction and normal saline and would continue the Lasix to continue to help lower the urine osmolality. I appreciate the consultation. ROWENA
--- NOTE | 2017-11-04 19:47 | Pulmonology Progress Note ---
Pulmonary Progress Note Date of Service Nov 04, 2017. Attending Dr. Stevne Subjective Patient seen and examined at bedside. Shortness of breath is improved. Some cough with clear sputum. Tolerating Oxymask. Refusing BiPAP. No fever or chills. Denies any difficulty with aspiration or with swallowing. No acute complaints. Objective GENERAL : No acute distress. No use of accessory muscles. Patient appears comfortable. EYES: No icterus, gaze conjugate NOSE: No evidence of epistaxis MOUTH: No lesions or candidiasis NECK: Supple LUNGS: CTA B/L, no wheezes, rales or rhonchi. HEART: Regular, rate controlled ABDOMEN: Soft, NT, ND, BS Present EXTREMITIES: No LE edema, pedal pulses intact. Right lower extremity wrapped. Teds in place NEURO: A&OX3 Assessment & Plan 57-year-old female with acute on chronic respiratory insufficiency: Pneumonia * CT scan with infiltrative pattern in the right lower lobe * Currently on doxycycline -started 11/03/2017 * Previously was on imipenem/cilastatin from 10/31 until 11/04 * Patient is also on fluconazole which was started 10/31/2017 * Afebrile. Patient feels improved * Patient refusing swallow study to this provider as she states that she does not aspirate Hypoxia * Acute on chronic with hypoventilation versus ROHAN * Patient has used the BiPAP at home but has had difficulty finding the proper mask * She reports that she uses [facility] and would like to continue with previous mask that she is covered her mouth and nose * Will ask case management to coordinate with DME * Pulmonary hypertension/diastolic dysfunction * Consider right heart catheterization/shunt fraction evaluation when more stable * Repeat pulmonary function testing as an outpatient on discharge * Continue diuresis with Spironolactone and furosemide Prior history of PE/DVT * IVC filter in place * CT abdomen shows inferior vena cava filter positioned at the level of the renal veins. It shows no change in position from prior study COPD * Systemic steroids discontinued * Patient does not seem to be in COPD exacerbation at this time * Continue with duo nebs DVT prophylaxis * IVC filter in place and verified at the level of the renal veins by CT scan * Continue heparin 5000 units subcutaneously every 8 hours Thank you for including us in the care of this patient. Greater than 30 minutes was spent in direct discussion with the patient in addition to chart review and preparation of documentation. Data Medications: Current Inpatient Medications Medications (Trade) Dose Ordered Sig/Bruno Route Start Time Stop Time Status Last Admin Dose Admin Heparin Sodium (Porcine) (Heparin Sq 5000 Unit/0.5ml) 5,000 unit Q8 SQ 10/31/17 14:00 11/30/17 13:59 Acetaminophen (Tylenol Tab) 650 mg Q4H PRN PO 10/31/17 07:00 11/30/17 06:59 Al Hydrox/Mg Hydrox/Simethicone (Maalox Max Susp) 15 ml Q4H PRN PO 10/31/17 07:00 11/30/17 06:59 11/03/17 23:49 15 ML Magnesium Hydroxide (Milk Of Magnesia Susp) 30 ml Q12H PRN PO 10/31/17 07:00 11/30/17 06:59 Ondansetron HCl (Zofran Inj) 4 mg Q6H PRN IV 10/31/17 07:00 11/30/17 06:59 11/03/17 00:12 4 MG Morphine Sulfate (MoRPHine SULFATE INJ) 2 mg Q30M PRN IV 10/31/17 07:00 11/14/17 06:59 11/03/17 23:42 2 MG Polyethylene (Miralax Powder Packet) 17 gm DAILY PRN PO 10/31/17 07:00 11/30/17 06:59 Allopurinol (Zyloprim Tab) 200 mg DAILY PO 10/31/17 09:00 11/30/17 08:59 Docusate Sodium (coLACE CAP) 100 mg HS PO 10/31/17 21:00 11/30/17 20:59 11/02/17 20:38 100 MG Multi-Ingredient Ointment (Eucerin Unscented Cr) 1 appln BID EXT 10/31/17 09:00 11/30/17 08:59 11/02/17 20:39 1 APPLN Fluconazole (Diflucan Tab) 100 mg Q2D PO 10/31/17 07:00 11/10/17 06:59 11/04/17 09:23 100 MG Heparin Sodium (Porcine) (Heparin 100 Unit/ml 5ml Flush) 5 ml BID FLUSH 10/31/17 09:00 11/30/17 08:59 11/04/17 16:12 5 ML Metolazone (Zaroxolyn Tab) 5 mg DAILY PO 10/31/17 09:00 11/30/17 08:59 Miconazole Nitrate (Desenex Powder) 1 appln BID EXT 10/31/17 09:00 11/30/17 08:59 11/04/17 09:23 1 APPLN Oxycodone HCl (Roxicodone Immediate Rel Tab) 5 mg Q6H PRN PO 10/31/17 07:00 11/14/17 06:59 11/02/17 00:03 5 MG Potassium Chloride (Klor-Con M10) 10 meq DAILY PO 10/31/17 09:00 11/30/17 08:59 Spironolactone (Aldactone Tab) 25 mg DAILY PO 10/31/17 09:00 11/30/17 08:59 Insulin Aspart (novoLOG ASPART) SLIDING SCALE G... ACHS SC 10/31/17 11:00 11/30/17 10:59 Future hold 11/03/17 22:26 6 UNITS Albuterol/ Ipratropium (Duoneb) 3 ml Q6R INH 10/31/17 09:00 11/30/17 08:59 11/04/17 14:24 3 ML Albuterol Sulfate (Ventolin 0.083% 2.5MG/3ML Neb) 2.5 mg Q4H PRN INH 10/31/17 07:15 11/30/17 07:14 Glucose (Glucose 40% Gel) 15-30 GRAMS 15 GRAMS... UD PRN PO 10/31/17 08:15 11/30/17 08:14 Glucose (Glucose Chew Tab) 4-8 Tablets 4 Tabl... UD PRN PO 10/31/17 08:15 11/30/17 08:14 Dextrose (Dextrose 50% 50ML Syringe) 25-50ML OF 50% DW IV FOR... UD PRN IV 10/31/17 08:15 11/30/17 08:14 Glucagon (Glucagon Inj) 1 mg UD PRN SQ 10/31/17 08:15 11/30/17 08:14 Miscellaneous Information (Consult Glycemic Management Pharmacy) 1 ea UD PRN N/A 11/01/17 20:12 12/01/17 20:11 Menthol (Nice Umberto) 1 umberto PRN PRN UMBERTO 11/02/17 01:15 12/02/17 01:14 11/02/17 01:12 1 UMBERTO Insulin Glargine (Lantus Solostar Pen) BID SC 11/02/17 21:00 12/02/17 20:59 11/04/17 09:33 10 UNITS Doxycycline Hyclate (Vibramycin Cap) 100 mg BID PO 11/03/17 16:00 11/10/17 15:59 11/04/17 09:25 100 MG Heparin Sodium (Porcine) (Heparin 10 Unit/ ml 5 ml Flush) 5 ml PRN PRN FLUSH 11/04/17 10:30 12/04/17 10:29 Sodium Chloride 1,000 ml @ 80 mls/hr [id number] IV 11/04/17 17:00 12/04/17 16:59 11/04/17 17:16 80 MLS/HR Furosemide 20 mg/ Syringe 2 ml @ 4 mls/min TID IV 11/04/17 17:00 12/04/17 16:59 11/04/17 17:16 4 MLS/MIN I & O: 24-Hour Column 11/05/17 07:59 Intake Total 535 ml Output Total 650 ml Balance -115 ml Vital Signs: Date Time Temp Pulse Resp B/P (MAP) Pulse Ox O2 Delivery O2 Flow Rate FiO2 11/04/17 16:00 90 Oxymask 8.0 11/04/17 14:45 36.6 99 20 119/66 (83) 90 9.0 11/04/17 14:26 98 20 97 Mask 9.0 11/04/17 08:00 93 Oxymask 8.0 11/04/17 07:39 36.6 99 18 122/61 (81) 93 Oxymask 8.0 11/04/17 07:26 101 20 91 Mask 9.0 11/04/17 00:00 Oxymask 8.0 11/03/17 23:36 36.4 112 24 122/72 (89) 90 Diffusion Mask 9.0 11/03/17 20:00 95 Oxymask 8.0 11/03/17 19:41 101 22 95 Mask 9.0 Laboratory Results: Last 24 Hours Test 11/03/17 19:38 11/03/17 20:19 11/03/17 22:51 11/04/17 00:00 Sodium Level 113 mmol/L 117 mmol/L Potassium Level 4.8 mmol/L Chloride Level 76 mmol/L Carbon Dioxide Level 30 mmol/L Anion Gap 8.0 mmol/L Blood Urea Nitrogen 101 mg/dl Creatinine 2.01 mg/dl Est Creatinine Clear Calc Drug Dose 39.4 ml/min Estimated GFR () 30.7 Estimated GFR (Non- 26.5 BUN/Creatinine Ratio 50.4 Random Glucose 208 mg/dl Calcium Level 7.5 mg/dl Bedside Glucose 250 mg/dl Urine Osmolality 256 mOms/kg Urine Random Sodium 9 mEq/L Urine Random Potassium 14.7 mEq/L Test 11/04/17 07:34 11/04/17 08:40 11/04/17 11:14 11/04/17 11:25 Bedside Glucose 125 mg/dl White Blood Count 16.76 K/uL Red Blood Count 3.95 M/uL Hemoglobin 10.5 g/dL Hematocrit 31.8 % Mean Corpuscular Volume 80.5 fL Mean Corpuscular Hemoglobin 26.6 pg Mean Corpuscular Hemoglobin Concent 33.0 g/dl RDW Standard Deviation 54.0 fL RDW Coefficient of Variation 18.4 % Platelet Count 217 K/uL Mean Platelet Volume 10.8 fL Nucleated RBC Absolute Count (auto) 0.02 K/uL Nucleated Red Blood Cells % 0.1 % Sodium Level 113 mmol/L 113 mmol/L Potassium Level 4.7 mmol/L 4.7 mmol/L Chloride Level 75 mmol/L 74 mmol/L Carbon Dioxide Level 28 mmol/L 28 mmol/L Anion Gap 10.0 mmol/L 10.0 mmol/L Blood Urea Nitrogen 95 mg/dl 98 mg/dl Creatinine 1.76 mg/dl 1.81 mg/dl Est Creatinine Clear Calc Drug Dose 45.0 ml/min 43.8 ml/min Estimated GFR () 36.1 34.9 Estimated GFR (Non- 31.1 30.1 BUN/Creatinine Ratio 53.8 54.3 Random Glucose 125 mg/dl 124 mg/dl Calcium Level 7.9 mg/dl 8.0 mg/dl Osmolality 275 mOsm/kg Thyroid Stimulating Hormone (TSH) 0.849 uIu/ml Test 11/04/17 11:51 11/04/17 16:02 11/04/17 16:34 Bedside Glucose 130 mg/dl 111 mg/dl Sodium Level 114 mmol/L Potassium Level 4.6 mmol/L Chloride Level 75 mmol/L Carbon Dioxide Level 31 mmol/L Anion Gap 8.0 mmol/L Blood Urea Nitrogen 97 mg/dl Creatinine 1.85 mg/dl Est Creatinine Clear Calc Drug Dose 42.8 ml/min Estimated GFR () 33.9 Estimated GFR (Non- 29.3 BUN/Creatinine Ratio 52.2 Random Glucose 104 mg/dl Calcium Level 7.7 mg/dl
[2017-11-04 20:41] LABS: CALCIUM 7.7 mg/dl (8.5-10.1); CREATININE 1.73 mg/dl (0.60-1.20); POTASSIUM 4.4 mmol/L (3.5-5.1)
[2017-11-04] MEDS: DOCUSATE SODIUM 100 MG CAP PO SCH (20:59)
[2017-11-04] MEDS ORDERED: hydrOXYzine HCL 25 MG TAB PO STA (23:23)
[2017-11-05] VITALS (10 sets, daily range): BP systolic 102–132; BP diastolic 65–80; PULSE 67–109; TEMP 36.4–36.6; O2SAT 86–96
[2017-11-05 00:20] LABS: CALCIUM 7.7 mg/dl (8.5-10.1); CREATININE 1.6 mg/dl (0.60-1.20); POTASSIUM 4.4 mmol/L (3.5-5.1)
[2017-11-05] MEDS: ALBUT/IPRATROP 3MG/0.5MG NEB 3 ML VIAL INH SCH ×4 (02:10→19:52)
[2017-11-05] MEDS: OXYCODONE HCL IR 5 MG TAB (IMMEDIATE RELEASE) PO PRN ×2 (02:53→23:46)
[2017-11-05 04:41] LABS: CALCIUM 7.3 mg/dl (8.5-10.1); CREATININE 1.47 mg/dl (0.60-1.20); POTASSIUM 4.4 mmol/L (3.5-5.1)
[2017-11-05] MEDS: SODIUM CHLORIDE 0.9% 1000ML 1,000 ML IV SCH ×2 (05:35→17:43)
[2017-11-05] MEDS: HEPARIN SOD 5000 UNIT/0.5 ML CARP SQ SCH ×3 (05:35→21:26)
--- NOTE | 2017-11-05 07:20 | Nephrology Progress Note ---
Nephrology Progress Note Date of Service: Nov 05, 2017. Subjective 57 yo female with hyponatremia which is slowly improving. pt with no specific complaints. pt is alert. Objective Date Time Temp Pulse Resp B/P (MAP) Pulse Ox O2 Delivery O2 Flow Rate FiO2 11/05/17 07:09 101 20 86 Mask 8.0 11/05/17 04:00 Mask 8.0 60 11/05/17 02:36 36.4 67 22 102/65 (77) 91 Nasal Cannula 9.0 11/05/17 02:10 101 20 96 Mask 9.0 11/05/17 00:34 103 11/05/17 00:00 Mask 8.0 60 11/04/17 23:45 36.5 135 20 129/65 (86) 91 Nasal Cannula 8.0 11/04/17 21:30 Mask 8.0 60 11/04/17 20:39 106 20 95 Mask 9.0 11/04/17 16:00 90 Oxymask 8.0 11/04/17 14:45 36.6 99 20 119/66 (83) 90 9.0 11/04/17 14:26 98 20 97 Mask 9.0 11/04/17 08:00 93 Oxymask 8.0 11/04/17 07:39 36.6 99 18 122/61 (81) 93 Oxymask 8.0 11/04/17 07:26 101 20 91 Mask 9.0 Physical Exam: General-aaox3, obese Eyes-no scleral icterus ENT-mmm Neck-supple Lungs-decreased at bases Heart-tachy with ectopy Abdomen-bs+ s/nt/nd Extremities-mild edema with chronic wounds Neuro-nonfocal Current Inpatient Medications Medications (Trade) Dose Ordered Sig/Bruno Route Start Time Stop Time Status Last Admin Dose Admin Heparin Sodium (Porcine) (Heparin Sq 5000 Unit/0.5ml) 5,000 unit Q8 SQ 10/31/17 14:00 11/30/17 13:59 Acetaminophen (Tylenol Tab) 650 mg Q4H PRN PO 10/31/17 07:00 11/30/17 06:59 Al Hydrox/Mg Hydrox/Simethicone (Maalox Max Susp) 15 ml Q4H PRN PO 10/31/17 07:00 11/30/17 06:59 11/03/17 23:49 15 ML Magnesium Hydroxide (Milk Of Magnesia Susp) 30 ml Q12H PRN PO 10/31/17 07:00 11/30/17 06:59 Ondansetron HCl (Zofran Inj) 4 mg Q6H PRN IV 10/31/17 07:00 11/30/17 06:59 11/03/17 00:12 4 MG Morphine Sulfate (MoRPHine SULFATE INJ) 2 mg Q30M PRN IV 10/31/17 07:00 11/14/17 06:59 11/03/17 23:42 2 MG Polyethylene (Miralax Powder Packet) 17 gm DAILY PRN PO 10/31/17 07:00 11/30/17 06:59 Allopurinol (Zyloprim Tab) 200 mg DAILY PO 10/31/17 09:00 11/30/17 08:59 Docusate Sodium (coLACE CAP) 100 mg HS PO 10/31/17 21:00 11/30/17 20:59 11/02/17 20:38 100 MG Multi-Ingredient Ointment (Eucerin Unscented Cr) 1 appln BID EXT 10/31/17 09:00 11/30/17 08:59 11/02/17 20:39 1 APPLN Fluconazole (Diflucan Tab) 100 mg Q2D PO 10/31/17 07:00 11/10/17 06:59 11/04/17 09:23 100 MG Heparin Sodium (Porcine) (Heparin 100 Unit/ml 5ml Flush) 5 ml BID FLUSH 10/31/17 09:00 11/30/17 08:59 11/04/17 16:12 5 ML Metolazone (Zaroxolyn Tab) 5 mg DAILY PO 10/31/17 09:00 11/30/17 08:59 Miconazole Nitrate (Desenex Powder) 1 appln BID EXT 10/31/17 09:00 11/30/17 08:59 11/04/17 09:23 1 APPLN Oxycodone HCl (Roxicodone Immediate Rel Tab) 5 mg Q6H PRN PO 10/31/17 07:00 11/14/17 06:59 11/05/17 02:53 5 MG Potassium Chloride (Klor-Con M10) 10 meq DAILY PO 10/31/17 09:00 11/30/17 08:59 Spironolactone (Aldactone Tab) 25 mg DAILY PO 10/31/17 09:00 11/30/17 08:59 Insulin Aspart (novoLOG ASPART) SLIDING SCALE G... ACHS SC 10/31/17 11:00 11/30/17 10:59 Future hold 11/03/17 22:26 6 UNITS Albuterol/ Ipratropium (Duoneb) 3 ml Q6R INH 10/31/17 09:00 11/30/17 08:59 11/05/17 07:09 3 ML Albuterol Sulfate (Ventolin 0.083% 2.5MG/3ML Neb) 2.5 mg Q4H PRN INH 10/31/17 07:15 11/30/17 07:14 Glucose (Glucose 40% Gel) 15-30 GRAMS 15 GRAMS... UD PRN PO 10/31/17 08:15 11/30/17 08:14 Glucose (Glucose Chew Tab) 4-8 Tablets 4 Tabl... UD PRN PO 10/31/17 08:15 11/30/17 08:14 Dextrose (Dextrose 50% 50ML Syringe) 25-50ML OF 50% DW IV FOR... UD PRN IV 10/31/17 08:15 11/30/17 08:14 Glucagon (Glucagon Inj) 1 mg UD PRN SQ 10/31/17 08:15 11/30/17 08:14 Miscellaneous Information (Consult Glycemic Management Pharmacy) 1 ea UD PRN N/A 11/01/17 20:12 12/01/17 20:11 Menthol (Nice Marko) 1 marko PRN PRN MARKO 11/02/17 01:15 12/02/17 01:14 11/02/17 01:12 1 MARKO Insulin Glargine (Lantus Solostar Pen) BID SC 11/02/17 21:00 12/02/17 20:59 11/04/17 21:04 10 UNITS Doxycycline Hyclate (Vibramycin Cap) 100 mg BID PO 11/03/17 16:00 11/10/17 15:59 11/04/17 21:05 100 MG Heparin Sodium (Porcine) (Heparin 10 Unit/ ml 5 ml Flush) 5 ml PRN PRN FLUSH 11/04/17 10:30 12/04/17 10:29 Sodium Chloride 1,000 ml @ 80 mls/hr [id number] IV 11/04/17 17:00 12/04/17 16:59 11/05/17 05:35 80 MLS/HR Furosemide 20 mg/ Syringe 2 ml @ 4 mls/min TID IV 11/04/17 17:00 12/04/17 16:59 11/04/17 20:59 4 MLS/MIN Last 24 Hours Test 11/04/17 07:34 11/04/17 08:40 11/04/17 11:14 11/04/17 11:25 Bedside Glucose 125 mg/dl White Blood Count 16.76 K/uL Red Blood Count 3.95 M/uL Hemoglobin 10.5 g/dL Hematocrit 31.8 % Mean Corpuscular Volume 80.5 fL Mean Corpuscular Hemoglobin 26.6 pg Mean Corpuscular Hemoglobin Concent 33.0 g/dl RDW Standard Deviation 54.0 fL RDW Coefficient of Variation 18.4 % Platelet Count 217 K/uL Mean Platelet Volume 10.8 fL Nucleated RBC Absolute Count (auto) 0.02 K/uL Nucleated Red Blood Cells % 0.1 % Sodium Level 113 mmol/L 113 mmol/L Potassium Level 4.7 mmol/L 4.7 mmol/L Chloride Level 75 mmol/L 74 mmol/L Carbon Dioxide Level 28 mmol/L 28 mmol/L Anion Gap 10.0 mmol/L 10.0 mmol/L Blood Urea Nitrogen 95 mg/dl 98 mg/dl Creatinine 1.76 mg/dl 1.81 mg/dl Est Creatinine Clear Calc Drug Dose 45.0 ml/min 43.8 ml/min Estimated GFR () 36.1 34.9 Estimated GFR (Non- 31.1 30.1 BUN/Creatinine Ratio 53.8 54.3 Random Glucose 125 mg/dl 124 mg/dl Calcium Level 7.9 mg/dl 8.0 mg/dl Osmolality 275 mOsm/kg Thyroid Stimulating Hormone (TSH) 0.849 uIu/ml Test 11/04/17 11:51 11/04/17 16:02 11/04/17 16:34 11/04/17 19:58 Bedside Glucose 130 mg/dl 111 mg/dl 102 mg/dl Sodium Level 114 mmol/L Potassium Level 4.6 mmol/L Chloride Level 75 mmol/L Carbon Dioxide Level 31 mmol/L Anion Gap 8.0 mmol/L Blood Urea Nitrogen 97 mg/dl Creatinine 1.85 mg/dl Est Creatinine Clear Calc Drug Dose 42.8 ml/min Estimated GFR () 33.9 Estimated GFR (Non- 29.3 BUN/Creatinine Ratio 52.2 Random Glucose 104 mg/dl Calcium Level 7.7 mg/dl Test 11/04/17 20:02 11/04/17 23:40 11/05/17 04:00 11/05/17 06:35 Sodium Level 115 mmol/L 116 mmol/L 117 mmol/L Potassium Level 4.4 mmol/L 4.4 mmol/L 4.4 mmol/L Chloride Level 75 mmol/L 76 mmol/L 77 mmol/L Carbon Dioxide Level 31 mmol/L 31 mmol/L 31 mmol/L Anion Gap 9.0 mmol/L 9.0 mmol/L 8.0 mmol/L Blood Urea Nitrogen 100 mg/dl 100 mg/dl 94 mg/dl Creatinine 1.73 mg/dl 1.60 mg/dl 1.47 mg/dl Est Creatinine Clear Calc Drug Dose 45.8 ml/min 49.5 ml/min 53.9 ml/min Estimated GFR () 36.8 40.5 44.8 Estimated GFR (Non- 31.8 34.9 38.7 BUN/Creatinine Ratio 58.0 62.2 64.2 Random Glucose 95 mg/dl 89 mg/dl 112 mg/dl Calcium Level 7.7 mg/dl 7.7 mg/dl 7.3 mg/dl Urine Osmolality 249 mOms/kg Assessment & Plan hyponatremia-urine osm under 300-sodium slowly improving-continue the normal saline and lasix combination and fluid restriction. no changes at this time. Hypocalcemia-will give one gram of calcium gluconate.
[2017-11-05] MEDS ORDERED: CALCIUM GLUCONATE 10% 1,000 MG in SODIUM CHLORIDE 0.9% 50ML 50 ML IV ONE (08:00)
[2017-11-05] MEDS: INSULIN ASPART 100 UNITS/ML 3 ML PEN SC SCH ×4 (09:00→21:00)
[2017-11-05] MEDS: METOLAZONE 5 MG TAB PO SCH (09:00)
[2017-11-05] MEDS: POTASSIUM CHLORIDE 10 MEQ TABCR PO SCH (09:00)
[2017-11-05] MEDS: INSULIN GLARGINE SOLOSTAR 100 UNITS/ML 3 ML PEN SC SCH ×2 (09:00→21:00)
[2017-11-05] MEDS: ALLOPURINOL 100 MG TAB PO SCH (09:00)
[2017-11-05] MEDS: FUROSEMIDE INJ 20 MG in SYRINGE 0 ML IV SCH ×3 (09:00→21:25)
[2017-11-05] MEDS: MICONAZOLE NITRATE POWDER 43 GM EXT SCH ×2 (09:00→21:00)
[2017-11-05] MEDS: SPIRONOLACTONE 25 MG TAB PO SCH (09:00)
[2017-11-05] MEDS: EUCERIN CR 120 GM JAR EXT SCH ×2 (09:00→21:00)
[2017-11-05 09:01] LABS: CALCIUM 7.8 mg/dl (8.5-10.1); CREATININE 1.47 mg/dl (0.60-1.20); POTASSIUM 4.4 mmol/L (3.5-5.1)
--- NOTE | 2017-11-05 10:29 | Pharmacy Progress Note ---
Pharmacy Glycemic Short Note 2 Date of Service Nov 05, 2017. OUTPATIENT ANTIDIABETIC REGIMEN: * Glimepiride 6mg daily * Novolog SSI * HbA1c= 7.8% from 10/08/17 ASSESSMENT: 11/05/17 * Patient received only 20 units of insulin yesterday * BSGs ranging from 89-130 mg/dL * Patient refused a few of her Novolog doses yesterday so I'm unsure of po intake * Will plan to loosen both CF/CR today since I am still estimating TDD of ~20 units/day, may even be a little less * Will also loosen the scale for Lantus to prevent too much from being given 11/04/17 * Patient received 76 units of insulin yesterday with BSGs ranging from 125-262 mg/dL * Fasting significantly improved this AM: 125 mg/dL - she will receive a lower dose of basal but I'm okay with this as it looks like previous admissions w/o steroids, her requirements were ~20-25 units/day * Will continue the same CF/CR for now since her postprandial BSGs were still elevated yesterday. May need to loosen if BSGs continue to drop. 11/03/17 * Hyperglycemia noted with BSG's ranging 184-257 mg/dL over the last 24 hours - patient has not refused any doses of insulin * Tighter control warranted, but also hesitant to make too many changes that may cause hypoglycemia or even symptoms related to lower BSG's as patient is now compliant * Steroid effects of methylprednisolone (last 11/01 PM) likely dissipated * Will make slight adjustments to Novolog (goal, correction factor, carb ratio) * Will keep Lantus dose this AM similar to yesterday, but increase this PM if BSG's remain elevated despite changes to Novolog * Still will avoid overnight check(s) to help ensure continued compliance PLAN FOR INPATIENT GLYCEMIC CONTROL: * Hold outpatient oral diabetes medications * Basal insulin - loosen slightly * Lantus 10 units SQ BID for BSG < 140 * Lantus 15 units SQ BID for BSG 140-180 * Lantus 20 units SQ BID for BSG > 180 * Bolus insulin * NovoLog per scale ACHS or Q6hrs while NPO * Goal Range: Low 120 mg/dL - High 160 mg/dL * LOOSEN Correction Factor: 25 mg/dL/unit * LOOSEN Nutritional / Prandial insulin per carb ratio of 1 unit per 10 grams CHO consumed PLAN FOR DISCHARGE: * A1c is 7.8% - could be slightly improved * Recommend f/u with outpatient provider for adjustments
[2017-11-05 12:34] LABS: CALCIUM 7.9 mg/dl (8.5-10.1); CREATININE 1.4 mg/dl (0.60-1.20); POTASSIUM 4.3 mmol/L (3.5-5.1)
--- NOTE | 2017-11-05 12:50 | Pulmonology Progress Note ---
Pulmonary Progress Note Date of Service Nov 05, 2017. Attending Dr. Steven Subjective Patient is refusing most care this morning. She did allow me to interview her and also allowed me to do a limited examination. While I was there Caridad did refuse physical therapy and said to "just leave me the F alone". She denies SOB today and further denies fever or chills. She offers no acute complaints. Objective GENERAL : No acute distress. No use of accessory muscles. Patient appears comfortable. EYES: No icterus, gaze conjugate NOSE: No evidence of epistaxis MOUTH: No lesions or candidiasis NECK: Supple LUNGS: CTA B/L, no wheezes, rales or rhonchi. Breath sounds are more decreased. HEART: Regular, rate controlled ABDOMEN: Soft, NT, ND, BS Present EXTREMITIES: No LE edema, pedal pulses intact. Right lower extremity wrapped. Teds in place NEURO: A&OX3 Assessment & Plan 57-year-old female with acute on chronic respiratory insufficiency: Pneumonia Continue current treatment plan * CT scan with infiltrative pattern in the right lower lobe * Currently on doxycycline -started 11/03/2017 * Previously was on imipenem/cilastatin from 10/31 until 11/04 * Patient is also on fluconazole which was started 10/31/2017 * Afebrile. * Patient refusing swallow study to this provider as she states that she does not aspirate Hypoxia * Acute on chronic with hypoventilation versus ORHAN * Patient has used the BiPAP at home but has had difficulty finding the proper mask * She reports that she uses [facility] and would like to continue with previous mask that she is covered her mouth and nose * Will ask case management to coordinate with DME * Pulmonary hypertension/diastolic dysfunction * Consider right heart catheterization/shunt fraction evaluation when more stable * Repeat pulmonary function testing as an outpatient on discharge * Continue diuresis with Spironolactone and furosemide. Also on Metolazone * Patient refused all diuretics today Prior history of PE/DVT * IVC filter in place * CT abdomen shows inferior vena cava filter positioned at the level of the renal veins. It shows no change in position from prior study COPD * Systemic steroids discontinued * Patient does not seem to be in COPD exacerbation at this time * Continue with duo nebs DVT prophylaxis * IVC filter in place and verified at the level of the renal veins by CT scan * Continue heparin 5000 units subcutaneously every 8 hours Thank you for including us in the care of this patient. Today was an abbreviated visit of only 15 minutes Data Medications: Current Inpatient Medications Medications (Trade) Dose Ordered Sig/Bruno Route Start Time Stop Time Status Last Admin Dose Admin Heparin Sodium (Porcine) (Heparin Sq 5000 Unit/0.5ml) 5,000 unit Q8 SQ 10/31/17 14:00 11/30/17 13:59 Acetaminophen (Tylenol Tab) 650 mg Q4H PRN PO 10/31/17 07:00 11/30/17 06:59 Al Hydrox/Mg Hydrox/Simethicone (Maalox Max Susp) 15 ml Q4H PRN PO 10/31/17 07:00 11/30/17 06:59 11/03/17 23:49 15 ML Magnesium Hydroxide (Milk Of Magnesia Susp) 30 ml Q12H PRN PO 10/31/17 07:00 11/30/17 06:59 Ondansetron HCl (Zofran Inj) 4 mg Q6H PRN IV 10/31/17 07:00 11/30/17 06:59 11/03/17 00:12 4 MG Morphine Sulfate (MoRPHine SULFATE INJ) 2 mg Q30M PRN IV 10/31/17 07:00 11/14/17 06:59 11/03/17 23:42 2 MG Polyethylene (Miralax Powder Packet) 17 gm DAILY PRN PO 10/31/17 07:00 11/30/17 06:59 Allopurinol (Zyloprim Tab) 200 mg DAILY PO 10/31/17 09:00 11/30/17 08:59 Docusate Sodium (coLACE CAP) 100 mg HS PO 10/31/17 21:00 11/30/17 20:59 11/02/17 20:38 100 MG Multi-Ingredient Ointment (Eucerin Unscented Cr) 1 appln BID EXT 10/31/17 09:00 11/30/17 08:59 11/02/17 20:39 1 APPLN Fluconazole (Diflucan Tab) 100 mg Q2D PO 10/31/17 07:00 11/10/17 06:59 11/04/17 09:23 100 MG Heparin Sodium (Porcine) (Heparin 100 Unit/ml 5ml Flush) 5 ml BID FLUSH 10/31/17 09:00 11/30/17 08:59 11/04/17 16:12 5 ML Metolazone (Zaroxolyn Tab) 5 mg DAILY PO 10/31/17 09:00 11/30/17 08:59 Miconazole Nitrate (Desenex Powder) 1 appln BID EXT 10/31/17 09:00 11/30/17 08:59 11/04/17 09:23 1 APPLN Oxycodone HCl (Roxicodone Immediate Rel Tab) 5 mg Q6H PRN PO 10/31/17 07:00 11/14/17 06:59 11/05/17 02:53 5 MG Potassium Chloride (Klor-Con M10) 10 meq DAILY PO 10/31/17 09:00 11/30/17 08:59 Spironolactone (Aldactone Tab) 25 mg DAILY PO 10/31/17 09:00 11/30/17 08:59 Insulin Aspart (novoLOG ASPART) SLIDING SCALE G... ACHS SC 10/31/17 11:00 11/30/17 10:59 Future hold 11/03/17 22:26 6 UNITS Albuterol/ Ipratropium (Duoneb) 3 ml Q6R INH 10/31/17 09:00 11/30/17 08:59 11/05/17 07:09 3 ML Albuterol Sulfate (Ventolin 0.083% 2.5MG/3ML Neb) 2.5 mg Q4H PRN INH 10/31/17 07:15 11/30/17 07:14 Glucose (Glucose 40% Gel) 15-30 GRAMS 15 GRAMS... UD PRN PO 10/31/17 08:15 11/30/17 08:14 Glucose (Glucose Chew Tab) 4-8 Tablets 4 Tabl... UD PRN PO 10/31/17 08:15 11/30/17 08:14 Dextrose (Dextrose 50% 50ML Syringe) 25-50ML OF 50% DW IV FOR... UD PRN IV 10/31/17 08:15 11/30/17 08:14 Glucagon (Glucagon Inj) 1 mg UD PRN SQ 10/31/17 08:15 11/30/17 08:14 Miscellaneous Information (Consult Glycemic Management Pharmacy) 1 ea UD PRN N/A 11/01/17 20:12 12/01/17 20:11 Menthol (Nice Umberto) 1 umberto PRN PRN UMBERTO 11/02/17 01:15 12/02/17 01:14 11/02/17 01:12 1 UMBERTO Insulin Glargine (Lantus Solostar Pen) BID SC 11/02/17 21:00 12/02/17 20:59 11/04/17 21:04 10 UNITS Doxycycline Hyclate (Vibramycin Cap) 100 mg BID PO 11/03/17 16:00 11/10/17 15:59 11/04/17 21:05 100 MG Heparin Sodium (Porcine) (Heparin 10 Unit/ ml 5 ml Flush) 5 ml PRN PRN FLUSH 11/04/17 10:30 12/04/17 10:29 Sodium Chloride 1,000 ml @ 80 mls/hr [id number] IV 11/04/17 17:00 12/04/17 16:59 11/05/17 05:35 80 MLS/HR Furosemide 20 mg/ Syringe 2 ml @ 4 mls/min TID IV 11/04/17 17:00 12/04/17 16:59 11/04/17 20:59 4 MLS/MIN Vital Signs: Date Time Temp Pulse Resp B/P (MAP) Pulse Ox O2 Delivery O2 Flow Rate FiO2 11/05/17 07:09 101 20 86 Mask 8.0 11/05/17 04:00 Mask 8.0 60 11/05/17 02:36 36.4 67 22 102/65 (77) 91 Nasal Cannula 9.0 11/05/17 02:10 101 20 96 Mask 9.0 11/05/17 00:34 103 11/05/17 00:00 Mask 8.0 60 11/04/17 23:45 36.5 135 20 129/65 (86) 91 Nasal Cannula 8.0 11/04/17 21:30 Mask 8.0 60 11/04/17 20:39 106 20 95 Mask 9.0 11/04/17 16:00 90 Oxymask 8.0 11/04/17 14:45 36.6 99 20 119/66 (83) 90 9.0 11/04/17 14:26 98 20 97 Mask 9.0 Laboratory Results: Last 24 Hours Test 11/04/17 16:02 11/04/17 16:34 11/04/17 19:58 11/04/17 20:02 Sodium Level 114 mmol/L 115 mmol/L Potassium Level 4.6 mmol/L 4.4 mmol/L Chloride Level 75 mmol/L 75 mmol/L Carbon Dioxide Level 31 mmol/L 31 mmol/L Anion Gap 8.0 mmol/L 9.0 mmol/L Blood Urea Nitrogen 97 mg/dl 100 mg/dl Creatinine 1.85 mg/dl 1.73 mg/dl Est Creatinine Clear Calc Drug Dose 42.8 ml/min 45.8 ml/min Estimated GFR () 33.9 36.8 Estimated GFR (Non- 29.3 31.8 BUN/Creatinine Ratio 52.2 58.0 Random Glucose 104 mg/dl 95 mg/dl Calcium Level 7.7 mg/dl 7.7 mg/dl Bedside Glucose 111 mg/dl 102 mg/dl Test 11/04/17 23:40 11/05/17 04:00 11/05/17 06:35 11/05/17 07:50 Sodium Level 116 mmol/L 117 mmol/L 117 mmol/L Potassium Level 4.4 mmol/L 4.4 mmol/L 4.4 mmol/L Chloride Level 76 mmol/L 77 mmol/L 79 mmol/L Carbon Dioxide Level 31 mmol/L 31 mmol/L 29 mmol/L Anion Gap 9.0 mmol/L 8.0 mmol/L 9.0 mmol/L Blood Urea Nitrogen 100 mg/dl 94 mg/dl 95 mg/dl Creatinine 1.60 mg/dl 1.47 mg/dl 1.47 mg/dl Est Creatinine Clear Calc Drug Dose 49.5 ml/min 53.9 ml/min 55.3 ml/min Estimated GFR () 40.5 44.8 44.8 Estimated GFR (Non- 34.9 38.7 38.7 BUN/Creatinine Ratio 62.2 64.2 64.5 Random Glucose 89 mg/dl 112 mg/dl 90 mg/dl Calcium Level 7.7 mg/dl 7.3 mg/dl 7.8 mg/dl Urine Osmolality 249 mOms/kg Cortisol AM Sample 19.78 mcg/dl Test 11/05/17 12:05 Sodium Level 118 mmol/L Potassium Level 4.3 mmol/L Chloride Level 79 mmol/L Carbon Dioxide Level 29 mmol/L Anion Gap 9.0 mmol/L Blood Urea Nitrogen 99 mg/dl Creatinine 1.40 mg/dl Est Creatinine Clear Calc Drug Dose 58.1 ml/min Estimated GFR () 47.5 Estimated GFR (Non- 41.0 BUN/Creatinine Ratio 70.5 Random Glucose 92 mg/dl Calcium Level 7.9 mg/dl
[2017-11-05] MEDS: DOXYCYCLINE HYCLATE 100 MG CAP PO SCH ×2 (13:58→21:00)
--- NOTE | 2017-11-05 15:02 | Progress Note ---
Subjective Date of Service: Nov 05, 2017. Subjective Pt evaluation today including: physical exam, chart review, lab review, review of inpatient medication list Patient was very hostile patient she refused to give me a proper review of system, but denied any chest pain or shortness of breath. Also patient refused physical exam. Problem List Medical Problems: (1) Acute renal disease Status: Acute (2) Acute renal failure Status: Acute (3) ELIZABETH (acute kidney injury) Status: Acute (4) ELIZABETH (acute kidney injury) Status: Acute (5) Anemia Status: Acute (6) Cellulitis Status: Acute (7) Cellulitis of both lower extremities Status: Acute (8) CHF (congestive heart failure) Status: Acute (9) CHF (congestive heart failure) Status: Acute (10) Dehydration Status: Acute (11) Fluid overload Status: Acute (12) Hypoxia Status: Acute (13) Pickwickian syndrome Status: Acute (14) Pneumonia Status: Acute (15) Respiratory failure Status: Acute (16) Sacral decubitus ulcer, stage III Status: Acute (17) UTI (urinary tract infection) Status: Acute (18) UTI (urinary tract infection) due to urinary indwelling Lerner catheter Status: Acute Medications Current Inpatient Medications Medications (Trade) Dose Ordered Sig/Bruno Route Start Time Stop Time Status Last Admin Dose Admin Heparin Sodium (Porcine) (Heparin Sq 5000 Unit/0.5ml) 5,000 unit Q8 SQ 10/31/17 14:00 11/30/17 13:59 Acetaminophen (Tylenol Tab) 650 mg Q4H PRN PO 10/31/17 07:00 11/30/17 06:59 Al Hydrox/Mg Hydrox/Simethicone (Maalox Max Susp) 15 ml Q4H PRN PO 10/31/17 07:00 11/30/17 06:59 11/03/17 23:49 15 ML Magnesium Hydroxide (Milk Of Magnesia Susp) 30 ml Q12H PRN PO 10/31/17 07:00 11/30/17 06:59 Ondansetron HCl (Zofran Inj) 4 mg Q6H PRN IV 10/31/17 07:00 11/30/17 06:59 11/03/17 00:12 4 MG Morphine Sulfate (MoRPHine SULFATE INJ) 2 mg Q30M PRN IV 10/31/17 07:00 11/14/17 06:59 11/03/17 23:42 2 MG Polyethylene (Miralax Powder Packet) 17 gm DAILY PRN PO 10/31/17 07:00 11/30/17 06:59 Allopurinol (Zyloprim Tab) 200 mg DAILY PO 10/31/17 09:00 11/30/17 08:59 Docusate Sodium (coLACE CAP) 100 mg HS PO 10/31/17 21:00 11/30/17 20:59 11/02/17 20:38 100 MG Multi-Ingredient Ointment (Eucerin Unscented Cr) 1 appln BID EXT 10/31/17 09:00 11/30/17 08:59 11/02/17 20:39 1 APPLN Fluconazole (Diflucan Tab) 100 mg Q2D PO 10/31/17 07:00 11/10/17 06:59 11/04/17 09:23 100 MG Heparin Sodium (Porcine) (Heparin 100 Unit/ml 5ml Flush) 5 ml BID FLUSH 10/31/17 09:00 11/30/17 08:59 11/04/17 16:12 5 ML Metolazone (Zaroxolyn Tab) 5 mg DAILY PO 10/31/17 09:00 11/30/17 08:59 Miconazole Nitrate (Desenex Powder) 1 appln BID EXT 10/31/17 09:00 11/30/17 08:59 11/04/17 09:23 1 APPLN Oxycodone HCl (Roxicodone Immediate Rel Tab) 5 mg Q6H PRN PO 10/31/17 07:00 11/14/17 06:59 11/05/17 02:53 5 MG Potassium Chloride (Klor-Con M10) 10 meq DAILY PO 10/31/17 09:00 11/30/17 08:59 Spironolactone (Aldactone Tab) 25 mg DAILY PO 10/31/17 09:00 11/30/17 08:59 Insulin Aspart (novoLOG ASPART) SLIDING SCALE G... ACHS SC 10/31/17 11:00 11/30/17 10:59 Future hold 11/03/17 22:26 6 UNITS Albuterol/ Ipratropium (Duoneb) 3 ml Q6R INH 3/15/18 09:00 11/30/17 08:59 11/05/17 14:06 3 ML Albuterol Sulfate (Ventolin 0.083% 2.5MG/3ML Neb) 2.5 mg Q4H PRN INH 10/31/17 07:15 11/30/17 07:14 Glucose (Glucose 40% Gel) 15-30 GRAMS 15 GRAMS... UD PRN PO 10/31/17 08:15 11/30/17 08:14 Glucose (Glucose Chew Tab) 4-8 Tablets 4 Tabl... UD PRN PO 10/31/17 08:15 11/30/17 08:14 Dextrose (Dextrose 50% 50ML Syringe) 25-50ML OF 50% DW IV FOR... UD PRN IV 10/31/17 08:15 11/30/17 08:14 Glucagon (Glucagon Inj) 1 mg UD PRN SQ 10/31/17 08:15 11/30/17 08:14 Miscellaneous Information (Consult Glycemic Management Pharmacy) 1 ea UD PRN N/A 11/01/17 20:12 12/01/17 20:11 Menthol (Nice Umberto) 1 umberto PRN PRN UMBERTO 11/02/17 01:15 12/02/17 01:14 11/02/17 01:12 1 UMBERTO Insulin Glargine (Lantus Solostar Pen) BID SC 11/02/17 21:00 12/02/17 20:59 11/04/17 21:04 10 UNITS Doxycycline Hyclate (Vibramycin Cap) 100 mg BID PO 11/03/17 16:00 11/10/17 15:59 11/05/17 13:58 100 MG Heparin Sodium (Porcine) (Heparin 10 Unit/ ml 5 ml Flush) 5 ml PRN PRN FLUSH 11/04/17 10:30 12/04/17 10:29 Sodium Chloride 1,000 ml @ 80 mls/hr [id number] IV 11/04/17 17:00 12/04/17 16:59 11/05/17 05:35 80 MLS/HR Furosemide 20 mg/ Syringe 2 ml @ 4 mls/min TID IV 11/04/17 17:00 12/04/17 16:59 11/05/17 13:54 4 MLS/MIN Objective Vital Signs Date Time Temp Pulse Resp B/P (MAP) Pulse Ox O2 Delivery O2 Flow Rate FiO2 11/05/17 14:06 101 20 94 Mask 8.0 11/05/17 07:09 101 20 86 Mask 8.0 11/05/17 04:00 Mask 8.0 60 11/05/17 02:36 36.4 67 22 102/65 (77) 91 Nasal Cannula 9.0 11/05/17 02:10 101 20 96 Mask 9.0 11/05/17 00:34 103 11/05/17 00:00 Mask 8.0 60 11/04/17 23:45 36.5 135 20 129/65 (86) 91 Nasal Cannula 8.0 11/04/17 21:30 Mask 8.0 60 11/04/17 20:39 106 20 95 Mask 9.0 11/04/17 16:00 90 Oxymask 8.0 Laboratory Results Last 24 Hours Test 11/04/17 16:02 11/04/17 16:34 11/04/17 19:58 11/04/17 20:02 Sodium Level 114 mmol/L 115 mmol/L Potassium Level 4.6 mmol/L 4.4 mmol/L Chloride Level 75 mmol/L 75 mmol/L Carbon Dioxide Level 31 mmol/L 31 mmol/L Anion Gap 8.0 mmol/L 9.0 mmol/L Blood Urea Nitrogen 97 mg/dl 100 mg/dl Creatinine 1.85 mg/dl 1.73 mg/dl Est Creatinine Clear Calc Drug Dose 42.8 ml/min 45.8 ml/min Estimated GFR () 33.9 36.8 Estimated GFR (Non- 29.3 31.8 BUN/Creatinine Ratio 52.2 58.0 Random Glucose 104 mg/dl 95 mg/dl Calcium Level 7.7 mg/dl 7.7 mg/dl Bedside Glucose 111 mg/dl 102 mg/dl Test 11/04/17 23:40 11/05/17 04:00 11/05/17 06:35 11/05/17 07:50 Sodium Level 116 mmol/L 117 mmol/L 117 mmol/L Potassium Level 4.4 mmol/L 4.4 mmol/L 4.4 mmol/L Chloride Level 76 mmol/L 77 mmol/L 79 mmol/L Carbon Dioxide Level 31 mmol/L 31 mmol/L 29 mmol/L Anion Gap 9.0 mmol/L 8.0 mmol/L 9.0 mmol/L Blood Urea Nitrogen 100 mg/dl 94 mg/dl 95 mg/dl Creatinine 1.60 mg/dl 1.47 mg/dl 1.47 mg/dl Est Creatinine Clear Calc Drug Dose 49.5 ml/min 53.9 ml/min 55.3 ml/min Estimated GFR () 40.5 44.8 44.8 Estimated GFR (Non- 34.9 38.7 38.7 BUN/Creatinine Ratio 62.2 64.2 64.5 Random Glucose 89 mg/dl 112 mg/dl 90 mg/dl Calcium Level 7.7 mg/dl 7.3 mg/dl 7.8 mg/dl Urine Osmolality 249 mOms/kg Cortisol AM Sample 19.78 mcg/dl Test 11/05/17 12:05 Sodium Level 118 mmol/L Potassium Level 4.3 mmol/L Chloride Level 79 mmol/L Carbon Dioxide Level 29 mmol/L Anion Gap 9.0 mmol/L Blood Urea Nitrogen 99 mg/dl Creatinine 1.40 mg/dl Est Creatinine Clear Calc Drug Dose 58.1 ml/min Estimated GFR () 47.5 Estimated GFR (Non- 41.0 BUN/Creatinine Ratio 70.5 Random Glucose 92 mg/dl Calcium Level 7.9 mg/dl Assessment and Plan 57-year-old female with past medical history of morbid obesity, chronic respiratory failure on home oxygen, chronic kidney disease stage III, chronic diastolic congestive heart failure, gout, diabetes mellitus type 2 with bilateral lower extremity diabetic foot ulcers, and neck swelling that the patient stated it has been investigated before and turned out to be nonmalignant. 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 difficile Continue home medications Monitor labs in a.m. Bronchodilators Monitor oxygen saturation DVT prophylaxis/heparin subcutaneous As far as her hyponatremia Patient had low urine osmolality Continue IV fluid normal saline with Lasix, plus fluid restriction Cortisol level was 19 check serum osmolarity is pending TSH was 0.8 order urine sodium and potassium consider sodium tablets if sodium level do not improve Nephrology consult appreciated if sodium level fail to rise Consider starting Tolvaptan while inpatient, to monitor closely sodium level but will leave this decision up to bean dumper as he should be consulted prior to starting tolvaptan. Monitor sodium level closely/every 8 hours, avoid correcting sodium with a rate faster than 6 mmol per day Currently sodium level is improving slowly Avoid a rate of correction > 1 mmol/4 hours Continue boost supplement Continued [facility] stay due to: multiple IV medications needed, other Discharge planning: uncertain
--- NOTE | 2017-11-05 15:21 | Infectious Disease Progress Nt ---
Progress Note Date of Service Nov 05, 2017. Subjective Pt evaluation today including: conversation w/ patient, physical exam, chart review, lab review, review of studies, conversation w/ internet sales consultant, review of inpatient medication list Somewhat hostile today. Remains afebrile, no new specific complaints. Urine culture positive for Klebsiella but no symptoms, treatment held for asymptomatic bacteriuria. All Other Systems: Reviewed and Negative Medications Current Inpatient Medications Medications (Trade) Dose Ordered Sig/Bruno Route Start Time Stop Time Status Last Admin Dose Admin Heparin Sodium (Porcine) (Heparin Sq 5000 Unit/0.5ml) 5,000 unit Q8 SQ 10/31/17 14:00 11/30/17 13:59 Acetaminophen (Tylenol Tab) 650 mg Q4H PRN PO 10/31/17 07:00 11/30/17 06:59 Al Hydrox/Mg Hydrox/Simethicone (Maalox Max Susp) 15 ml Q4H PRN PO 10/31/17 07:00 11/30/17 06:59 11/03/17 23:49 15 ML Magnesium Hydroxide (Milk Of Magnesia Susp) 30 ml Q12H PRN PO 10/31/17 07:00 11/30/17 06:59 Ondansetron HCl (Zofran Inj) 4 mg Q6H PRN IV 10/31/17 07:00 11/30/17 06:59 11/03/17 00:12 4 MG Morphine Sulfate (MoRPHine SULFATE INJ) 2 mg Q30M PRN IV 10/31/17 07:00 11/14/17 06:59 11/03/17 23:42 2 MG Polyethylene (Miralax Powder Packet) 17 gm DAILY PRN PO 10/31/17 07:00 11/30/17 06:59 Allopurinol (Zyloprim Tab) 200 mg DAILY PO 10/31/17 09:00 11/30/17 08:59 Docusate Sodium (coLACE CAP) 100 mg HS PO 10/31/17 21:00 11/30/17 20:59 11/02/17 20:38 100 MG Multi-Ingredient Ointment (Eucerin Unscented Cr) 1 appln BID EXT 10/31/17 09:00 11/30/17 08:59 11/02/17 20:39 1 APPLN Fluconazole (Diflucan Tab) 100 mg Q2D PO 10/31/17 07:00 11/10/17 06:59 11/04/17 09:23 100 MG Heparin Sodium (Porcine) (Heparin 100 Unit/ml 5ml Flush) 5 ml BID FLUSH 10/31/17 09:00 11/30/17 08:59 11/04/17 16:12 5 ML Metolazone (Zaroxolyn Tab) 5 mg DAILY PO 10/31/17 09:00 11/30/17 08:59 Miconazole Nitrate (Desenex Powder) 1 appln BID EXT 10/31/17 09:00 11/30/17 08:59 11/04/17 09:23 1 APPLN Oxycodone HCl (Roxicodone Immediate Rel Tab) 5 mg Q6H PRN PO 10/31/17 07:00 11/14/17 06:59 11/05/17 02:53 5 MG Potassium Chloride (Klor-Con M10) 10 meq DAILY PO 10/31/17 09:00 11/30/17 08:59 Spironolactone (Aldactone Tab) 25 mg DAILY PO 10/31/17 09:00 11/30/17 08:59 Insulin Aspart (novoLOG ASPART) SLIDING SCALE G... ACHS SC 10/31/17 11:00 11/30/17 10:59 Future hold 11/03/17 22:26 6 UNITS Albuterol/ Ipratropium (Duoneb) 3 ml Q6R INH 10/31/17 09:00 11/30/17 08:59 11/05/17 14:06 3 ML Albuterol Sulfate (Ventolin 0.083% 2.5MG/3ML Neb) 2.5 mg Q4H PRN INH 10/31/17 07:15 11/30/17 07:14 Glucose (Glucose 40% Gel) 15-30 GRAMS 15 GRAMS... UD PRN PO 10/31/17 08:15 11/30/17 08:14 Glucose (Glucose Chew Tab) 4-8 Tablets 4 Tabl... UD PRN PO 10/31/17 08:15 11/30/17 08:14 Dextrose (Dextrose 50% 50ML Syringe) 25-50ML OF 50% DW IV FOR... UD PRN IV 10/31/17 08:15 11/30/17 08:14 Glucagon (Glucagon Inj) 1 mg UD PRN SQ 10/31/17 08:15 11/30/17 08:14 Miscellaneous Information (Consult Glycemic Management Pharmacy) 1 ea UD PRN N/A 11/01/17 20:12 12/01/17 20:11 Menthol (Nice Marko) 1 marko PRN PRN MARKO 11/02/17 01:15 12/02/17 01:14 11/02/17 01:12 1 MARKO Insulin Glargine (Lantus Solostar Pen) BID SC 11/02/17 21:00 12/02/17 20:59 11/04/17 21:04 10 UNITS Doxycycline Hyclate (Vibramycin Cap) 100 mg BID PO 11/03/17 16:00 11/10/17 15:59 11/05/17 13:58 100 MG Heparin Sodium (Porcine) (Heparin 10 Unit/ ml 5 ml Flush) 5 ml PRN PRN FLUSH 11/04/17 10:30 12/04/17 10:29 Sodium Chloride 1,000 ml @ 80 mls/hr [id number] IV 11/04/17 17:00 12/04/17 16:59 11/05/17 05:35 80 MLS/HR Furosemide 20 mg/ Syringe 2 ml @ 4 mls/min TID IV 11/04/17 17:00 12/04/17 16:59 11/05/17 13:54 4 MLS/MIN Objective Vital Signs Date Time Temp Pulse Resp B/P (MAP) Pulse Ox O2 Delivery O2 Flow Rate FiO2 11/05/17 14:06 101 20 94 Mask 8.0 11/05/17 08:00 92 Mask 8.0 11/05/17 07:09 101 20 86 Mask 8.0 11/05/17 04:00 Mask 8.0 60 11/05/17 02:36 36.4 67 22 102/65 (77) 91 Nasal Cannula 9.0 11/05/17 02:10 101 20 96 Mask 9.0 11/05/17 00:34 103 11/05/17 00:00 Mask 8.0 60 11/04/17 23:45 36.5 135 20 129/65 (86) 91 Nasal Cannula 8.0 11/04/17 21:30 Mask 8.0 60 11/04/17 20:39 106 20 95 Mask 9.0 11/04/17 16:00 90 Oxymask 8.0 Physical Exam General Appearance: WD/WN, no apparent distress, + obese Eyes: normal inspection, EOMI, sclerae normal ENT: normal ENT inspection, pharynx normal Neck: supple, no adenopathy, thyroid normal, trachea midline Respiratory/Chest: chest non-tender, lungs clear, normal breath sounds, no respiratory distress Cardiovascular: regular rate, rhythm, no gallop, no murmur Abdomen: normal bowel sounds, non tender, soft, no organomegaly Extremities: non-tender, no calf tenderness Neurologic/Psychiatric: alert, oriented x 3 Skin: normal color, no rash, + pertinent finding (Wounds all slowly improving) Lymphatic: no adenopathy Laboratory Results Last 24 Hours Test 11/04/17 16:02 11/04/17 16:34 11/04/17 19:58 11/04/17 20:02 Sodium Level 114 mmol/L 115 mmol/L Potassium Level 4.6 mmol/L 4.4 mmol/L Chloride Level 75 mmol/L 75 mmol/L Carbon Dioxide Level 31 mmol/L 31 mmol/L Anion Gap 8.0 mmol/L 9.0 mmol/L Blood Urea Nitrogen 97 mg/dl 100 mg/dl Creatinine 1.85 mg/dl 1.73 mg/dl Est Creatinine Clear Calc Drug Dose 42.8 ml/min 45.8 ml/min Estimated GFR () 33.9 36.8 Estimated GFR (Non- 29.3 31.8 BUN/Creatinine Ratio 52.2 58.0 Random Glucose 104 mg/dl 95 mg/dl Calcium Level 7.7 mg/dl 7.7 mg/dl Bedside Glucose 111 mg/dl 102 mg/dl Test 11/04/17 23:40 11/05/17 04:00 11/05/17 06:35 11/05/17 07:50 Sodium Level 116 mmol/L 117 mmol/L 117 mmol/L Potassium Level 4.4 mmol/L 4.4 mmol/L 4.4 mmol/L Chloride Level 76 mmol/L 77 mmol/L 79 mmol/L Carbon Dioxide Level 31 mmol/L 31 mmol/L 29 mmol/L Anion Gap 9.0 mmol/L 8.0 mmol/L 9.0 mmol/L Blood Urea Nitrogen 100 mg/dl 94 mg/dl 95 mg/dl Creatinine 1.60 mg/dl 1.47 mg/dl 1.47 mg/dl Est Creatinine Clear Calc Drug Dose 49.5 ml/min 53.9 ml/min 55.3 ml/min Estimated GFR () 40.5 44.8 44.8 Estimated GFR (Non- 34.9 38.7 38.7 BUN/Creatinine Ratio 62.2 64.2 64.5 Random Glucose 89 mg/dl 112 mg/dl 90 mg/dl Calcium Level 7.7 mg/dl 7.3 mg/dl 7.8 mg/dl Urine Osmolality 249 mOms/kg Cortisol AM Sample 19.78 mcg/dl Test 11/05/17 12:05 Sodium Level 118 mmol/L Potassium Level 4.3 mmol/L Chloride Level 79 mmol/L Carbon Dioxide Level 29 mmol/L Anion Gap 9.0 mmol/L Blood Urea Nitrogen 99 mg/dl Creatinine 1.40 mg/dl Est Creatinine Clear Calc Drug Dose 58.1 ml/min Estimated GFR () 47.5 Estimated GFR (Non- 41.0 BUN/Creatinine Ratio 70.5 Random Glucose 92 mg/dl Calcium Level 7.9 mg/dl Assessment and Plan Pneumonia versus worsening heart failure, appears to be slowly improving. Has asymptomatic bacteriuria, treatment being held. Lower extremity in and sacral wounds appear to be slowly improving, will continue to follow.
[2017-11-05] MEDS: DOCUSATE SODIUM 100 MG CAP PO SCH (21:00)
[2017-11-06 00:09] LABS: CREATININE 1.28 mg/dl (0.60-1.20); POTASSIUM 4.3 mmol/L (3.5-5.1)
[2017-11-06] MEDS: ALBUT/IPRATROP 3MG/0.5MG NEB 3 ML VIAL INH SCH ×3 (01:49→06:58)
[2017-11-06 04:21] LABS: EOS % 0.9 %; EOS ABS # 0.12 K/uL (0-0.5); HEMATOCRIT 30.5 % (37-47); HEMOGLOBIN 9.9 g/dL (12.0-16.0); IG# 0.27 K/uL (0.00-0.02); LYMPH % 6.3 %; LYMPH ABS # 0.82 K/uL (1.2-3.4); MEAN CELL VOLUME 82.7 fL (80-100); MEAN CORPUSCULAR HEMOGLOBIN 26.8 pg (25-34); MEAN CORPUSCULAR HGB CONC 32.5 g/dl (32-36); MEAN PLATELET VOLUME 10.3 fL (7.4-10.4); MONO % 6.8 %; MONO ABS # 0.88 K/uL (0.11-0.59); NEUT % 83.9 %; NEUT ABS # 10.83 K/uL (1.4-6.5); PLATELET COUNT 158 K/uL (130-400); RED CELL DISTRIBUTION WIDTH CV 18.4 % (11.5-14.5); RED CELL DISTRIBUTION WIDTH SD 55.2 fL (36.4-46.3); WHITE BLOOD COUNT 12.92 K/uL (4.8-10.8)
[2017-11-06 04:39] LABS: ALBUMIN 2.6 gm/dl (3.4-5.0); CALCIUM 7.9 mg/dl (8.5-10.1); CREATININE 1.18 mg/dl (0.60-1.20); POTASSIUM 4.1 mmol/L (3.5-5.1)
[2017-11-06] MEDS: HEPARIN SOD 5000 UNIT/0.5 ML CARP SQ SCH ×4 (06:00→23:20)
[2017-11-06] MEDS: SODIUM CHLORIDE 0.9% 1000ML 1,000 ML IV SCH ×2 (06:08→18:14)
[2017-11-06] MEDS: INSULIN ASPART 100 UNITS/ML 3 ML PEN SC SCH ×4 (06:30→21:14)
--- NOTE | 2017-11-06 07:59 | Pharmacy Progress Note ---
Pharmacy Glycemic Short Note 2 Date of Service Nov 06, 2017. OUTPATIENT ANTIDIABETIC REGIMEN: * Glimepiride 6mg daily * Novolog SSI * HbA1c= 7.8% from 10/08/17 ASSESSMENT: 11/06/17 * Patient currently refusing insulin and BSG checks * She received ZERO units of insulin yesterday, but did receive 20 units the day prior * Looking back at previous admissions, her lowest TDD was 5 units * I think she may still need some coverage - estimating TDD ~15 units * Will loosen basal scale as well as Novolog CF/CR parameters 11/05/17 * Patient received only 20 units of insulin yesterday * BSGs ranging from 89-130 mg/dL * Patient refused a few of her Novolog doses yesterday so I'm unsure of po intake * Will plan to loosen both CF/CR today since I am still estimating TDD of ~20 units/day, may even be a little less * Will also loosen the scale for Lantus to prevent too much from being given 11/04/17 * Patient received 76 units of insulin yesterday with BSGs ranging from 125-262 mg/dL * Fasting significantly improved this AM: 125 mg/dL - she will receive a lower dose of basal but I'm okay with this as it looks like previous admissions w/o steroids, her requirements were ~20-25 units/day * Will continue the same CF/CR for now since her postprandial BSGs were still elevated yesterday. May need to loosen if BSGs continue to drop. 11/03/17 * Hyperglycemia noted with BSG's ranging 184-257 mg/dL over the last 24 hours - patient has not refused any doses of insulin * Tighter control warranted, but also hesitant to make too many changes that may cause hypoglycemia or even symptoms related to lower BSG's as patient is now compliant * Steroid effects of methylprednisolone (last 11/01 PM) likely dissipated * Will make slight adjustments to Novolog (goal, correction factor, carb ratio) * Will keep Lantus dose this AM similar to yesterday, but increase this PM if BSG's remain elevated despite changes to Novolog * Still will avoid overnight check(s) to help ensure continued compliance PLAN FOR INPATIENT GLYCEMIC CONTROL: * Hold outpatient oral diabetes medications * Basal insulin - loosen further * Lantus 3 units SQ BID for BSG < 140 * Lantus 8 units SQ BID for BSG 140-180 * Lantus 12 units SQ BID for BSG > 180 * Bolus insulin * NovoLog per scale ACHS or Q6hrs while NPO * Goal Range: Low 120 mg/dL - High 160 mg/dL * LOOSEN Correction Factor: 40 mg/dL/unit * LOOSEN Nutritional / Prandial insulin per carb ratio of 1 unit per 20 grams CHO consumed PLAN FOR DISCHARGE: * A1c is 7.8% - could be slightly improved * Recommend f/u with outpatient provider for adjustments
[2017-11-06 08:00] VITALS: BP 112/47; PULSE 112; TEMP 36.7; O2SAT 95
--- NOTE | 2017-11-06 08:13 | Nephrology Progress Note ---
Nephrology Progress Note Date of Service: Nov 06, 2017. Subjective 57 yo female with hyponatremia which continues to improve. pt has been refusing oral medications but has been compliant with her fluid restriction and tolerating the fluids and lasix well. appetite still good. Objective Date Time Temp Pulse Resp B/P (MAP) Pulse Ox O2 Delivery O2 Flow Rate FiO2 11/06/17 08:00 36.7 112 22 112/47 (68) 95 Oxymask 8.0 11/05/17 23:39 36.6 107 20 120/80 (93) 92 Oxymask 8.0 11/05/17 20:00 Oxymask 8.0 11/05/17 19:52 109 20 92 Mask 8.0 11/05/17 19:06 36.6 109 22 121/66 (84) 94 Oxymask 8.0 11/05/17 16:00 Oxymask 8.0 11/05/17 15:27 108 24 132/80 (97) 91 Oxymask 8.0 11/05/17 14:06 101 20 94 Mask 8.0 Physical Exam: General-aaox3, obese Eyes-no scleral icterus ENT-mmm Neck-supple Lungs-decreased at bases Heart-tachycardia Abdomen-bs+ s/nt/nd Extremities-mild edema with chronic wounds Neuro-nonfocal Current Inpatient Medications Medications (Trade) Dose Ordered Sig/Bruno Route Start Time Stop Time Status Last Admin Dose Admin Heparin Sodium (Porcine) (Heparin Sq 5000 Unit/0.5ml) 5,000 unit Q8 SQ 10/31/17 14:00 11/30/17 13:59 Acetaminophen (Tylenol Tab) 650 mg Q4H PRN PO 10/31/17 07:00 11/30/17 06:59 Al Hydrox/Mg Hydrox/Simethicone (Maalox Max Susp) 15 ml Q4H PRN PO 10/31/17 07:00 11/30/17 06:59 11/03/17 23:49 15 ML Magnesium Hydroxide (Milk Of Magnesia Susp) 30 ml Q12H PRN PO 10/31/17 07:00 11/30/17 06:59 Ondansetron HCl (Zofran Inj) 4 mg Q6H PRN IV 10/31/17 07:00 11/30/17 06:59 11/03/17 00:12 4 MG Morphine Sulfate (MoRPHine SULFATE INJ) 2 mg Q30M PRN IV 10/31/17 07:00 11/14/17 06:59 11/03/17 23:42 2 MG Polyethylene (Miralax Powder Packet) 17 gm DAILY PRN PO 10/31/17 07:00 11/30/17 06:59 Allopurinol (Zyloprim Tab) 200 mg DAILY PO 10/31/17 09:00 11/30/17 08:59 Docusate Sodium (coLACE CAP) 100 mg HS PO 10/31/17 21:00 11/30/17 20:59 11/02/17 20:38 100 MG Multi-Ingredient Ointment (Eucerin Unscented Cr) 1 appln BID EXT 10/31/17 09:00 11/30/17 08:59 11/02/17 20:39 1 APPLN Fluconazole (Diflucan Tab) 100 mg Q2D PO 10/31/17 07:00 11/10/17 06:59 11/04/17 09:23 100 MG Heparin Sodium (Porcine) (Heparin 100 Unit/ml 5ml Flush) 5 ml BID FLUSH 10/31/17 09:00 11/30/17 08:59 11/05/17 21:25 5 ML Metolazone (Zaroxolyn Tab) 5 mg DAILY PO 10/31/17 09:00 11/30/17 08:59 Miconazole Nitrate (Desenex Powder) 1 appln BID EXT 10/31/17 09:00 11/30/17 08:59 11/04/17 09:23 1 APPLN Oxycodone HCl (Roxicodone Immediate Rel Tab) 5 mg Q6H PRN PO 10/31/17 07:00 11/14/17 06:59 11/05/17 23:46 5 MG Potassium Chloride (Klor-Con M10) 10 meq DAILY PO 10/31/17 09:00 11/30/17 08:59 Spironolactone (Aldactone Tab) 25 mg DAILY PO 10/31/17 09:00 11/30/17 08:59 Insulin Aspart (novoLOG ASPART) SLIDING SCALE G... ACHS SC 10/31/17 11:00 11/30/17 10:59 Future hold 11/03/17 22:26 6 UNITS Albuterol/ Ipratropium (Duoneb) 3 ml Q6R INH 10/31/17 09:00 11/30/17 08:59 11/05/17 19:52 3 ML Albuterol Sulfate (Ventolin 0.083% 2.5MG/3ML Neb) 2.5 mg Q4H PRN INH 10/31/17 07:15 11/30/17 07:14 Glucose (Glucose 40% Gel) 15-30 GRAMS 15 GRAMS... UD PRN PO 10/31/17 08:15 11/30/17 08:14 Glucose (Glucose Chew Tab) 4-8 Tablets 4 Tabl... UD PRN PO 10/31/17 08:15 11/30/17 08:14 Dextrose (Dextrose 50% 50ML Syringe) 25-50ML OF 50% DW IV FOR... UD PRN IV 10/31/17 08:15 11/30/17 08:14 Glucagon (Glucagon Inj) 1 mg UD PRN SQ 10/31/17 08:15 11/30/17 08:14 Miscellaneous Information (Consult Glycemic Management Pharmacy) 1 ea UD PRN N/A 11/01/17 20:12 12/01/17 20:11 Menthol (Nice Marko) 1 marko PRN PRN MARKO 11/02/17 01:15 12/02/17 01:14 11/02/17 01:12 1 MARKO Insulin Glargine (Lantus Solostar Pen) BID SC 11/02/17 21:00 12/02/17 20:59 11/04/17 21:04 10 UNITS Doxycycline Hyclate (Vibramycin Cap) 100 mg BID PO 11/03/17 16:00 11/10/17 15:59 11/05/17 13:58 100 MG Heparin Sodium (Porcine) (Heparin 10 Unit/ ml 5 ml Flush) 5 ml PRN PRN FLUSH 11/04/17 10:30 12/04/17 10:29 Sodium Chloride 1,000 ml @ 80 mls/hr [id number] IV 11/04/17 17:00 12/04/17 16:59 11/06/17 06:08 80 MLS/HR Furosemide 20 mg/ Syringe 2 ml @ 4 mls/min TID IV 11/04/17 17:00 12/04/17 16:59 11/05/17 21:25 4 MLS/MIN Last 24 Hours Test 11/05/17 12:05 11/05/17 23:44 11/06/17 04:00 11/06/17 07:42 Sodium Level 118 mmol/L 121 mmol/L 124 mmol/L Potassium Level 4.3 mmol/L 4.3 mmol/L 4.1 mmol/L Chloride Level 79 mmol/L 83 mmol/L 85 mmol/L Carbon Dioxide Level 29 mmol/L 31 mmol/L 32 mmol/L Anion Gap 9.0 mmol/L 7.0 mmol/L 7.0 mmol/L Blood Urea Nitrogen 99 mg/dl 90 mg/dl 89 mg/dl Creatinine 1.40 mg/dl 1.28 mg/dl 1.18 mg/dl Est Creatinine Clear Calc Drug Dose 58.1 ml/min 63.6 ml/min 68.9 ml/min Estimated GFR () 47.5 53.0 58.5 Estimated GFR (Non- 41.0 45.7 50.4 BUN/Creatinine Ratio 70.5 70.2 75.5 Random Glucose 92 mg/dl 98 mg/dl 89 mg/dl Calcium Level 7.9 mg/dl 8.0 mg/dl 7.9 mg/dl White Blood Count 12.92 K/uL Red Blood Count 3.69 M/uL Hemoglobin 9.9 g/dL Hematocrit 30.5 % Mean Corpuscular Volume 82.7 fL Mean Corpuscular Hemoglobin 26.8 pg Mean Corpuscular Hemoglobin Concent 32.5 g/dl Platelet Count 158 K/uL Mean Platelet Volume 10.3 fL Neutrophils (%) (Auto) 83.9 % Lymphocytes (%) (Auto) 6.3 % Monocytes (%) (Auto) 6.8 % Eosinophils (%) (Auto) 0.9 % Basophils (%) (Auto) 0.0 % Neutrophils # (Auto) 10.83 K/uL Lymphocytes # (Auto) 0.82 K/uL Monocytes # (Auto) 0.88 K/uL Eosinophils # (Auto) 0.12 K/uL Basophils # (Auto) 0.00 K/uL RDW Standard Deviation 55.2 fL RDW Coefficient of Variation 18.4 % Immature Granulocyte % (Auto) 2.1 % Immature Granulocyte # (Auto) 0.27 K/uL Magnesium Level 1.9 mg/dl Total Bilirubin 0.5 mg/dl Aspartate Amino Transf (AST/SGOT) 9 U/L Alanine Aminotransferase (ALT/SGPT) 7 U/L Alkaline Phosphatase 69 U/L Total Protein 6.0 gm/dl Albumin 2.6 gm/dl Globulin 3.4 gm/dl Albumin/Globulin Ratio 0.8 Bedside Glucose 95 mg/dl Test 11/06/17 08:00 Assessment & Plan hyponatremia-sodium improving and now in the 120s. continue current lasix, fluid restriction, and normal saline combination. may be able to broaden fluid restriction tomorrow to help with patient satisfaction. CKD stage 4-creatinine has been improving on the iv fluids and lasix combination and may be dilutional in nature. will monitor for signs of volume overload. stable for now.
[2017-11-06] MEDS: MICONAZOLE NITRATE POWDER 43 GM EXT SCH ×2 (09:00→21:00)
[2017-11-06] MEDS: METOLAZONE 5 MG TAB PO SCH (09:00)
[2017-11-06] MEDS: SPIRONOLACTONE 25 MG TAB PO SCH (09:00)
[2017-11-06] MEDS: ALLOPURINOL 100 MG TAB PO SCH (09:00)
[2017-11-06] MEDS: POTASSIUM CHLORIDE 10 MEQ TABCR PO SCH (09:00)
[2017-11-06] MEDS: EUCERIN CR 120 GM JAR EXT SCH ×2 (09:00→21:00)
[2017-11-06] MEDS: DOCUSATE SODIUM 100 MG CAP PO SCH (09:07)
[2017-11-06] MEDS: INSULIN GLARGINE SOLOSTAR 100 UNITS/ML 3 ML PEN SC SCH ×2 (09:07→21:15)
[2017-11-06] MEDS: FLUCONAZOLE 100 MG TAB PO SCH (09:07)
[2017-11-06] MEDS: FUROSEMIDE INJ 20 MG in SYRINGE 0 ML IV SCH ×3 (09:08→21:06)
[2017-11-06] MEDS: DOXYCYCLINE HYCLATE 100 MG CAP PO SCH ×2 (09:12→21:05)
[2017-11-06 09:55] VITALS: O2SAT 95
[2017-11-06 10:35] LABS: CREATININE 1.19 mg/dl (0.60-1.20); POTASSIUM 4.1 mmol/L (3.5-5.1)
[2017-11-06 11:31] VITALS: BP 115/72; PULSE 105; TEMP 36.5; O2SAT 95
[2017-11-06 11:45] LABS: CALCIUM 8.2 mg/dl (8.5-10.1)
[2017-11-06 13:41] LABS: CALCIUM 8.1 mg/dl (8.5-10.1); CREATININE 1.07 mg/dl (0.60-1.20)
[2017-11-06 16:27] LABS: CALCIUM 7.7 mg/dl (8.5-10.1); CREATININE 1.08 mg/dl (0.60-1.20)
--- NOTE | 2017-11-06 17:06 | Progress Note ---
Subjective Date of Service: Nov 06, 2017. Subjective this pt is in a foul mood today and she dismissed me today from her room. She kept saying that no one is telling her whats going on. Problem List Medical Problems: (1) Acute renal disease Status: Acute (2) Acute renal failure Status: Acute (3) ELIZABETH (acute kidney injury) Status: Acute (4) ELIZABETH (acute kidney injury) Status: Acute (5) Anemia Status: Acute (6) Cellulitis Status: Acute (7) Cellulitis of both lower extremities Status: Acute (8) CHF (congestive heart failure) Status: Acute (9) CHF (congestive heart failure) Status: Acute (10) Dehydration Status: Acute (11) Fluid overload Status: Acute (12) Hypoxia Status: Acute (13) Pickwickian syndrome Status: Acute (14) Pneumonia Status: Acute (15) Respiratory failure Status: Acute (16) Sacral decubitus ulcer, stage III Status: Acute (17) UTI (urinary tract infection) Status: Acute (18) UTI (urinary tract infection) due to urinary indwelling Lerner catheter Status: Acute Review of Systems Constitutional: No fever, No chills, No weakness, No fatigue Respiratory: No cough, No sputum, No wheezing, No shortness of breath Cardiac: + edema, No chest pain Abdomen: No pain, No nausea, No vomiting, No diarrhea Psychiatric: No depression symptoms, No anhedonism Objective Vital Signs Date Time Temp Pulse Resp B/P (MAP) Pulse Ox O2 Delivery O2 Flow Rate FiO2 11/05/17 23:39 36.6 107 20 120/80 (93) 92 Oxymask 8.0 11/05/17 20:00 Oxymask 8.0 11/05/17 19:52 109 20 92 Mask 8.0 11/05/17 19:06 36.6 109 22 121/66 (84) 94 Oxymask 8.0 11/05/17 16:00 Oxymask 8.0 11/05/17 15:27 108 24 132/80 (97) 91 Oxymask 8.0 11/05/17 14:06 101 20 94 Mask 8.0 11/05/17 08:00 92 Mask 8.0 Physical Exam General Appearance: + mild distress, + obese Eyes: PERRL, EOMI Respiratory/Chest: chest non-tender, + decreased breath sounds Cardiovascular: regular rate, rhythm, no murmur Extremities: + pedal edema, + swelling Neurologic/Psychiatric: alert, oriented x 3 Laboratory Results Last 24 Hours Test 11/05/17 07:50 11/05/17 12:05 11/05/17 23:44 11/06/17 04:00 Sodium Level 117 mmol/L 118 mmol/L 121 mmol/L 124 mmol/L Potassium Level 4.4 mmol/L 4.3 mmol/L 4.3 mmol/L 4.1 mmol/L Chloride Level 79 mmol/L 79 mmol/L 83 mmol/L 85 mmol/L Carbon Dioxide Level 29 mmol/L 29 mmol/L 31 mmol/L 32 mmol/L Anion Gap 9.0 mmol/L 9.0 mmol/L 7.0 mmol/L 7.0 mmol/L Blood Urea Nitrogen 95 mg/dl 99 mg/dl 90 mg/dl 89 mg/dl Creatinine 1.47 mg/dl 1.40 mg/dl 1.28 mg/dl 1.18 mg/dl Est Creatinine Clear Calc Drug Dose 55.3 ml/min 58.1 ml/min 63.6 ml/min 68.9 ml/min Estimated GFR () 44.8 47.5 53.0 58.5 Estimated GFR (Non- 38.7 41.0 45.7 50.4 BUN/Creatinine Ratio 64.5 70.5 70.2 75.5 Random Glucose 90 mg/dl 92 mg/dl 98 mg/dl 89 mg/dl Calcium Level 7.8 mg/dl 7.9 mg/dl 8.0 mg/dl 7.9 mg/dl Cortisol AM Sample 19.78 mcg/dl White Blood Count 12.92 K/uL Red Blood Count 3.69 M/uL Hemoglobin 9.9 g/dL Hematocrit 30.5 % Mean Corpuscular Volume 82.7 fL Mean Corpuscular Hemoglobin 26.8 pg Mean Corpuscular Hemoglobin Concent 32.5 g/dl Platelet Count 158 K/uL Mean Platelet Volume 10.3 fL Neutrophils (%) (Auto) 83.9 % Lymphocytes (%) (Auto) 6.3 % Monocytes (%) (Auto) 6.8 % Eosinophils (%) (Auto) 0.9 % Basophils (%) (Auto) 0.0 % Neutrophils # (Auto) 10.83 K/uL Lymphocytes # (Auto) 0.82 K/uL Monocytes # (Auto) 0.88 K/uL Eosinophils # (Auto) 0.12 K/uL Basophils # (Auto) 0.00 K/uL RDW Standard Deviation 55.2 fL RDW Coefficient of Variation 18.4 % Immature Granulocyte % (Auto) 2.1 % Immature Granulocyte # (Auto) 0.27 K/uL Magnesium Level 1.9 mg/dl Total Bilirubin 0.5 mg/dl Aspartate Amino Transf (AST/SGOT) 9 U/L Alanine Aminotransferase (ALT/SGPT) 7 U/L Alkaline Phosphatase 69 U/L Total Protein 6.0 gm/dl Albumin 2.6 gm/dl Globulin 3.4 gm/dl Albumin/Globulin Ratio 0.8 Assessment and Plan 57-year-old female with past medical history of morbid obesity, chronic respiratory failure on home oxygen, chronic kidney disease stage III, chronic diastolic congestive heart failure, gout, diabetes mellitus type 2 with bilateral lower extremity diabetic foot ulcers, and neck swelling that the patient stated it has been investigated before and turned out to be nonmalignant. 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 difficile DVT prophylaxis/heparin subcutaneous Continued [facility] stay due to: multiple IV medications needed, other Discharge planning: uncertain
--- NOTE | 2017-11-06 19:47 | Pulmonology Progress Note ---
Pulmonary Progress Note Date of Service Nov 06, 2017. Attending Dr. Steven Subjective Patient more alert today. She continues to refuse most treatments. Refusing to get out of bed. Denies any further cough or sputum production. No hemoptysis. Denies fever. No new acute complaints Objective GENERAL : No acute distress. No use of accessory muscles. Patient appears comfortable. EYES: No icterus, gaze conjugate NOSE: No evidence of epistaxis MOUTH: No lesions or candidiasis NECK: Supple LUNGS: CTA B/L, no wheezes, rales or rhonchi. Breath sounds continue to be decreased but with more aeration today than yesterday HEART: Regular, rate controlled ABDOMEN: Soft, NT, ND, BS Present EXTREMITIES: No LE edema, pedal pulses intact. Right lower extremity wrapped. Teds in place NEURO: A&OX3 Assessment & Plan 57-year-old female with acute on chronic respiratory insufficiency: Pneumonia Patient with poor energy today more awake. Continues to refuse bronchodilator treatments and some medications. * CT scan with infiltrative pattern in the right lower lobe * Currently on doxycycline -started 11/03/2017 * Previously was on imipenem/cilastatin from 10/31 until 11/04 * Patient is also on fluconazole which was started 10/31/2017 * Afebrile. * Patient refusing swallow study to this provider as she states that she does not aspirate Hypoxia * Acute on chronic with hypoventilation versus ROHAN * Patient has used the BiPAP at home but has had difficulty finding the proper mask -refusing positive pressure ventilation * She reports that she uses [facility] and would like to continue with previous mask that she is covered her mouth and nose * Will ask case management to coordinate with DME * Pulmonary hypertension/diastolic dysfunction * Consider right heart catheterization/shunt fraction evaluation when more stable although patient states she does not want this done * Repeat pulmonary function testing as an outpatient on discharge * Continue diuresis with Spironolactone and furosemide. Also on Metolazone * Patient accepted diuretics today Prior history of PE/DVT * IVC filter in place * CT abdomen shows inferior vena cava filter positioned at the level of the renal veins. It shows no change in position from prior study COPD * Systemic steroids discontinued * Patient does not seem to be in COPD exacerbation at this time * Continue with duo nebs changed to as needed as patient was refusing scheduled nebs DVT prophylaxis * IVC filter in place and verified at the level of the renal veins by CT scan * Continue heparin 5000 units subcutaneously every 8 hours Thank you for including us in the care of this patient. We will sign off at this time as patient is refusing respiratory treatments. Please feel free to reconsult if patient's condition changes Data Medications: Current Inpatient Medications Medications (Trade) Dose Ordered Sig/Bruno Route Start Time Stop Time Status Last Admin Dose Admin Heparin Sodium (Porcine) (Heparin Sq 5000 Unit/0.5ml) 5,000 unit Q8 SQ 10/31/17 14:00 11/30/17 13:59 Acetaminophen (Tylenol Tab) 650 mg Q4H PRN PO 10/31/17 07:00 11/30/17 06:59 Al Hydrox/Mg Hydrox/Simethicone (Maalox Max Susp) 15 ml Q4H PRN PO 10/31/17 07:00 11/30/17 06:59 11/03/17 23:49 15 ML Magnesium Hydroxide (Milk Of Magnesia Susp) 30 ml Q12H PRN PO 10/31/17 07:00 11/30/17 06:59 Ondansetron HCl (Zofran Inj) 4 mg Q6H PRN IV 10/31/17 07:00 11/30/17 06:59 11/03/17 00:12 4 MG Morphine Sulfate (MoRPHine SULFATE INJ) 2 mg Q30M PRN IV 10/31/17 07:00 11/14/17 06:59 11/03/17 23:42 2 MG Polyethylene (Miralax Powder Packet) 17 gm DAILY PRN PO 10/31/17 07:00 11/30/17 06:59 Allopurinol (Zyloprim Tab) 200 mg DAILY PO 10/31/17 09:00 11/30/17 08:59 Docusate Sodium (coLACE CAP) 100 mg HS PO 10/31/17 21:00 11/30/17 20:59 11/06/17 09:07 100 MG Multi-Ingredient Ointment (Eucerin Unscented Cr) 1 appln BID EXT 10/31/17 09:00 11/30/17 08:59 11/02/17 20:39 1 APPLN Fluconazole (Diflucan Tab) 100 mg Q2D PO 10/31/17 07:00 11/10/17 06:59 11/06/17 09:07 100 MG Heparin Sodium (Porcine) (Heparin 100 Unit/ml 5ml Flush) 5 ml BID FLUSH 10/31/17 09:00 11/30/17 08:59 11/05/17 21:25 5 ML Metolazone (Zaroxolyn Tab) 5 mg DAILY PO 10/31/17 09:00 11/30/17 08:59 Miconazole Nitrate (Desenex Powder) 1 appln BID EXT 10/31/17 09:00 11/30/17 08:59 11/04/17 09:23 1 APPLN Oxycodone HCl (Roxicodone Immediate Rel Tab) 5 mg Q6H PRN PO 10/31/17 07:00 11/14/17 06:59 11/05/17 23:46 5 MG Potassium Chloride (Klor-Con M10) 10 meq DAILY PO 10/31/17 09:00 11/30/17 08:59 Spironolactone (Aldactone Tab) 25 mg DAILY PO 10/31/17 09:00 11/30/17 08:59 Insulin Aspart (novoLOG ASPART) SLIDING SCALE G... ACHS SC 10/31/17 11:00 11/30/17 10:59 Future hold 11/06/17 13:25 2 UNITS Albuterol Sulfate (Ventolin 0.083% 2.5MG/3ML Neb) 2.5 mg Q4H PRN INH 10/31/17 07:15 11/30/17 07:14 Glucose (Glucose 40% Gel) 15-30 GRAMS 15 GRAMS... UD PRN PO 10/31/17 08:15 11/30/17 08:14 Glucose (Glucose Chew Tab) 4-8 Tablets 4 Tabl... UD PRN PO 10/31/17 08:15 11/30/17 08:14 Dextrose (Dextrose 50% 50ML Syringe) 25-50ML OF 50% DW IV FOR... UD PRN IV 10/31/17 08:15 11/30/17 08:14 Glucagon (Glucagon Inj) 1 mg UD PRN SQ 10/31/17 08:15 11/30/17 08:14 Miscellaneous Information (Consult Glycemic Management Pharmacy) 1 ea UD PRN N/A 11/01/17 20:12 12/01/17 20:11 Menthol (Nice Umberto) 1 umberto PRN PRN UMBERTO 11/02/17 01:15 12/02/17 01:14 11/02/17 01:12 1 UMBERTO Insulin Glargine (Lantus Solostar Pen) BID SC 11/02/17 21:00 12/02/17 20:59 11/06/17 09:07 3 UNITS Doxycycline Hyclate (Vibramycin Cap) 100 mg BID PO 11/03/17 16:00 11/10/17 15:59 11/06/17 09:12 100 MG Heparin Sodium (Porcine) (Heparin 10 Unit/ ml 5 ml Flush) 5 ml PRN PRN FLUSH 11/04/17 10:30 12/04/17 10:29 Sodium Chloride 1,000 ml @ 80 mls/hr [id number] IV 11/04/17 17:00 12/04/17 16:59 11/06/17 18:14 80 MLS/HR Furosemide 20 mg/ Syringe 2 ml @ 4 mls/min TID IV 11/04/17 17:00 12/04/17 16:59 11/06/17 13:25 4 MLS/MIN Albuterol/ Ipratropium (Duoneb) 3 ml Q3H PRN INH 11/06/17 09:00 12/06/17 08:59 I & O: 24-Hour Column 11/07/17 08:00 Intake Total 1480 ml Output Total 800 ml Balance 680 ml Vital Signs: Date Time Temp Pulse Resp B/P (MAP) Pulse Ox O2 Delivery O2 Flow Rate FiO2 11/06/17 16:00 Oxymask 8.0 11/06/17 12:00 Oxymask 8.0 11/06/17 11:31 36.5 105 22 115/72 (86) 95 Oxymask 8.0 11/06/17 09:55 95 Oxymask 8.0 11/06/17 08:00 36.7 112 22 112/47 (68) 95 Oxymask 8.0 11/05/17 23:39 36.6 107 20 120/80 (93) 92 Oxymask 8.0 11/05/17 20:00 Oxymask 8.0 11/05/17 19:52 109 20 92 Mask 8.0 Laboratory Results: Last 24 Hours Test 11/05/17 23:44 11/06/17 04:00 11/06/17 07:42 11/06/17 09:23 Sodium Level 121 mmol/L 124 mmol/L 123 mmol/L Potassium Level 4.3 mmol/L 4.1 mmol/L 4.1 mmol/L Chloride Level 83 mmol/L 85 mmol/L 86 mmol/L Carbon Dioxide Level 31 mmol/L 32 mmol/L 30 mmol/L Anion Gap 7.0 mmol/L 7.0 mmol/L 7.0 mmol/L Blood Urea Nitrogen 90 mg/dl 89 mg/dl 88 mg/dl Creatinine 1.28 mg/dl 1.18 mg/dl 1.19 mg/dl Est Creatinine Clear Calc Drug Dose 63.6 ml/min 68.9 ml/min 68.3 ml/min Estimated GFR () 53.0 58.5 57.9 Estimated GFR (Non- 45.7 50.4 49.9 BUN/Creatinine Ratio 70.2 75.5 73.9 Random Glucose 98 mg/dl 89 mg/dl 119 mg/dl Calcium Level 8.0 mg/dl 7.9 mg/dl 8.2 mg/dl White Blood Count 12.92 K/uL Red Blood Count 3.69 M/uL Hemoglobin 9.9 g/dL Hematocrit 30.5 % Mean Corpuscular Volume 82.7 fL Mean Corpuscular Hemoglobin 26.8 pg Mean Corpuscular Hemoglobin Concent 32.5 g/dl Platelet Count 158 K/uL Mean Platelet Volume 10.3 fL Neutrophils (%) (Auto) 83.9 % Lymphocytes (%) (Auto) 6.3 % Monocytes (%) (Auto) 6.8 % Eosinophils (%) (Auto) 0.9 % Basophils (%) (Auto) 0.0 % Neutrophils # (Auto) 10.83 K/uL Lymphocytes # (Auto) 0.82 K/uL Monocytes # (Auto) 0.88 K/uL Eosinophils # (Auto) 0.12 K/uL Basophils # (Auto) 0.00 K/uL RDW Standard Deviation 55.2 fL RDW Coefficient of Variation 18.4 % Immature Granulocyte % (Auto) 2.1 % Immature Granulocyte # (Auto) 0.27 K/uL Magnesium Level 1.9 mg/dl Total Bilirubin 0.5 mg/dl Aspartate Amino Transf (AST/SGOT) 9 U/L Alanine Aminotransferase (ALT/SGPT) 7 U/L Alkaline Phosphatase 69 U/L Total Protein 6.0 gm/dl Albumin 2.6 gm/dl Globulin 3.4 gm/dl Albumin/Globulin Ratio 0.8 Bedside Glucose 95 mg/dl Test 11/06/17 11:26 11/06/17 12:56 11/06/17 15:45 11/06/17 16:28 Bedside Glucose 138 mg/dl 136 mg/dl Sodium Level 124 mmol/L 126 mmol/L Potassium Level 4.0 mmol/L 4.0 mmol/L Chloride Level 86 mmol/L 88 mmol/L Carbon Dioxide Level 29 mmol/L 31 mmol/L Anion Gap 9.0 mmol/L 7.0 mmol/L Blood Urea Nitrogen 82 mg/dl 81 mg/dl Creatinine 1.07 mg/dl 1.08 mg/dl Est Creatinine Clear Calc Drug Dose 76.0 ml/min 75.3 ml/min Estimated GFR () 65.8 65.1 Estimated GFR (Non- 56.8 56.1 BUN/Creatinine Ratio 76.7 75.4 Random Glucose 156 mg/dl 133 mg/dl Calcium Level 8.1 mg/dl 7.7 mg/dl
[2017-11-06 20:39] LABS: CREATININE 1.12 mg/dl (0.60-1.20); POTASSIUM 4.1 mmol/L (3.5-5.1)
[2017-11-06] MEDS: OXYCODONE HCL IR 5 MG TAB (IMMEDIATE RELEASE) PO PRN (21:05)
[2017-11-06 22:41] VITALS: PULSE 78; O2SAT 92
[2017-11-06] MEDS: ALBUT/IPRATROP 3MG/0.5MG NEB 3 ML VIAL INH PRN (22:41)
[2017-11-07 00:39] LABS: CALCIUM 8.1 mg/dl (8.5-10.1); CREATININE 1.16 mg/dl (0.60-1.20); POTASSIUM 3.9 mmol/L (3.5-5.1)
[2017-11-07 07:36] VITALS: BP 104/64; PULSE 101; TEMP 36.5; O2SAT 97
[2017-11-07] MEDS: MICONAZOLE NITRATE POWDER 43 GM EXT SCH ×2 (08:17→21:00)
[2017-11-07] MEDS: SODIUM CHLORIDE 0.9% 1000ML 1,000 ML IV SCH ×2 (08:17→19:19)
[2017-11-07] MEDS: FUROSEMIDE INJ 20 MG in SYRINGE 0 ML IV SCH ×3 (08:18→21:53)
[2017-11-07] MEDS: DOXYCYCLINE HYCLATE 100 MG CAP PO SCH ×2 (08:19→21:55)
[2017-11-07] MEDS: SPIRONOLACTONE 25 MG TAB PO SCH (08:19)
[2017-11-07] MEDS: POTASSIUM CHLORIDE 10 MEQ TABCR PO SCH (08:19)
[2017-11-07] MEDS: ALLOPURINOL 100 MG TAB PO SCH (08:20)
[2017-11-07] MEDS: METOLAZONE 5 MG TAB PO SCH (08:20)
[2017-11-07] MEDS: INSULIN ASPART 100 UNITS/ML 3 ML PEN SC SCH ×4 (08:27→21:00)
[2017-11-07] MEDS: INSULIN GLARGINE SOLOSTAR 100 UNITS/ML 3 ML PEN SC SCH ×2 (08:28→21:00)
[2017-11-07] MEDS: EUCERIN CR 120 GM JAR EXT SCH ×2 (08:53→21:00)
[2017-11-07] MEDS: LIDODERM (LIDOCAINE) PATCH 5% TD SCH (09:00)
--- NOTE | 2017-11-07 10:06 | Pharmacy Progress Note ---
Pharmacy Glycemic Short Note 2 Date of Service Nov 07, 2017. OUTPATIENT ANTIDIABETIC REGIMEN: * Glimepiride 6mg daily * Novolog SSI * HbA1c= 7.8% from 10/08/17 ASSESSMENT: 11/07/17 * Ms. Watkins was allowing for insulin administration yesterday * She received a total of 19 units w/ BSGs ranging from 119-209 mg/dL in the past 24 hours * Fasting BSG this AM = 147 * Postprandial BSGs yesterday = 138, 136, 204 * Minimal PO intake yesterday as documented from CHO intake * Still est TDD ~15-20 units so will adjust Lantus scale to provide lower doses now that basal insulin back on board 11/06/17 * Patient currently refusing insulin and BSG checks * She received ZERO units of insulin yesterday, but did receive 20 units the day prior * Looking back at previous admissions, her lowest TDD was 5 units * I think she may still need some coverage - estimating TDD ~15 units * Will loosen basal scale as well as Novolog CF/CR parameters 11/05/17 * Patient received only 20 units of insulin yesterday * BSGs ranging from 89-130 mg/dL * Patient refused a few of her Novolog doses yesterday so I'm unsure of po intake * Will plan to loosen both CF/CR today since I am still estimating TDD of ~20 units/day, may even be a little less * Will also loosen the scale for Lantus to prevent too much from being given 11/04/17 * Patient received 76 units of insulin yesterday with BSGs ranging from 125-262 mg/dL * Fasting significantly improved this AM: 125 mg/dL - she will receive a lower dose of basal but I'm okay with this as it looks like previous admissions w/o steroids, her requirements were ~20-25 units/day * Will continue the same CF/CR for now since her postprandial BSGs were still elevated yesterday. May need to loosen if BSGs continue to drop. 11/03/17 * Hyperglycemia noted with BSG's ranging 184-257 mg/dL over the last 24 hours - patient has not refused any doses of insulin * Tighter control warranted, but also hesitant to make too many changes that may cause hypoglycemia or even symptoms related to lower BSG's as patient is now compliant * Steroid effects of methylprednisolone (last 11/01 PM) likely dissipated * Will make slight adjustments to Novolog (goal, correction factor, carb ratio) * Will keep Lantus dose this AM similar to yesterday, but increase this PM if BSG's remain elevated despite changes to Novolog * Still will avoid overnight check(s) to help ensure continued compliance PLAN FOR INPATIENT GLYCEMIC CONTROL: * Hold outpatient oral diabetes medications * Basal insulin - loosen further * Lantus 3 units SQ BID for BSG < 140 * Lantus 5 units SQ BID for BSG 140-180 * Lantus 8 units SQ BID for BSG > 180 * Bolus insulin - no change * NovoLog per scale ACHS or Q6hrs while NPO * Goal Range: Low 120 mg/dL - High 160 mg/dL * Correction Factor: 40 mg/dL/unit * Nutritional / Prandial insulin per carb ratio of 1 unit per 20 grams CHO consumed PLAN FOR DISCHARGE: * A1c is 7.8% - could be slightly improved * Recommend f/u with outpatient provider for adjustments
[2017-11-07 11:44] VITALS: BP 122/65; PULSE 73; TEMP 36.5; O2SAT 91
[2017-11-07] MEDS: HEPARIN SOD 5000 UNIT/0.5 ML CARP SQ SCH ×2 (14:00→21:54)
[2017-11-07 15:23] VITALS: BP 122/61; PULSE 117; TEMP 37.1; O2SAT 97
--- NOTE | 2017-11-07 17:51 | Progress Note ---
Subjective Date of Service: Nov 07, 2017. Subjective the pt is with little desire for interaction today, she state things are bout the same and that she guesses she will go back to the retirement. she has no requests for any changes today Problem List Medical Problems: (1) Acute renal disease Status: Acute (2) Acute renal failure Status: Acute (3) ELIZABETH (acute kidney injury) Status: Acute (4) ELIZABETH (acute kidney injury) Status: Acute (5) Anemia Status: Acute (6) Cellulitis Status: Acute (7) Cellulitis of both lower extremities Status: Acute (8) CHF (congestive heart failure) Status: Acute (9) CHF (congestive heart failure) Status: Acute (10) Dehydration Status: Acute (11) Fluid overload Status: Acute (12) Hypoxia Status: Acute (13) Pickwickian syndrome Status: Acute (14) Pneumonia Status: Acute (15) Respiratory failure Status: Acute (16) Sacral decubitus ulcer, stage III Status: Acute (17) UTI (urinary tract infection) Status: Acute (18) UTI (urinary tract infection) due to urinary indwelling Lerner catheter Status: Acute Review of Systems Constitutional: + weakness, + fatigue, No fever, No chills Cardiac: No chest pain, No edema Abdomen: No pain, No nausea, No vomiting, No diarrhea Musculoskeletal: No joint pain, No muscle pain Female : No dysuria, No hematuria Objective Vital Signs Date Time Temp Pulse Resp B/P (MAP) Pulse Ox O2 Delivery O2 Flow Rate FiO2 11/07/17 15:23 37.1 117 20 122/61 (81) 97 Oxymask 8.0 11/07/17 12:00 Oxymask 8.0 11/07/17 11:44 36.5 73 18 122/65 (84) 91 11/07/17 08:00 Oxymask 8.0 11/07/17 07:36 36.5 101 20 104/64 (77) 97 Oxymask 11/07/17 04:00 Oxymask 8.0 11/07/17 00:00 Oxymask 8.0 11/06/17 22:41 78 20 92 Mask 8.0 11/06/17 20:00 Oxymask 8.0 Physical Exam General Appearance: WD/WN, + obese Eyes: normal inspection, sclerae normal Neck: supple, no JVD Extremities: + pertinent finding (changes of chronic venous stasis changes) Neurologic/Psychiatric: alert, oriented x 3 Skin: normal color, warm/dry, no rash Laboratory Results Last 24 Hours Test 11/06/17 20:02 11/06/17 20:05 11/07/17 00:02 11/07/17 07:32 Sodium Level 126 mmol/L 127 mmol/L Potassium Level 4.1 mmol/L 3.9 mmol/L Chloride Level 88 mmol/L 89 mmol/L Carbon Dioxide Level 32 mmol/L 32 mmol/L Anion Gap 6.0 mmol/L 6.0 mmol/L Blood Urea Nitrogen 80 mg/dl 78 mg/dl Creatinine 1.12 mg/dl 1.16 mg/dl Est Creatinine Clear Calc Drug Dose 72.6 ml/min 70.1 ml/min Estimated GFR () 62.3 59.7 Estimated GFR (Non- 53.7 51.5 BUN/Creatinine Ratio 71.1 67.4 Random Glucose 201 mg/dl 209 mg/dl Calcium Level 8.0 mg/dl 8.1 mg/dl Bedside Glucose 204 mg/dl 147 mg/dl Test 11/07/17 11:39 11/07/17 16:35 Bedside Glucose 173 mg/dl 208 mg/dl Assessment and Plan 57-year-old female with past medical history of morbid obesity, chronic respiratory failure on home oxygen, chronic kidney disease stage III, chronic diastolic congestive heart failure, gout, diabetes mellitus type 2 with bilateral lower extremity diabetic foot ulcers, and neck swelling that the patient stated it has been investigated before and turned out to be nonmalignant. 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 difficile DVT prophylaxis/heparin subcutaneous Continued [facility] stay due to: multiple IV medications needed, other Discharge planning: uncertain
[2017-11-07] MEDS: DOCUSATE SODIUM 100 MG CAP PO SCH (21:00)
[2017-11-07 22:15] VITALS: PULSE 78; O2SAT 92
[2017-11-07] MEDS: ALBUT/IPRATROP 3MG/0.5MG NEB 3 ML VIAL INH PRN (22:26)
[2017-11-08] VITALS (7 sets, daily range): BP systolic 112–132; BP diastolic 63–81; PULSE 55–116; TEMP 36.3–36.8; O2SAT 92–95
[2017-11-08] MEDS: OXYCODONE HCL IR 5 MG TAB (IMMEDIATE RELEASE) PO PRN (02:20)
[2017-11-08] MEDS: HEPARIN SOD 5000 UNIT/0.5 ML CARP SQ SCH ×3 (05:35→21:21)
[2017-11-08 06:06] LABS: CALCIUM 8.5 mg/dl (8.5-10.1); CREATININE 1.09 mg/dl (0.60-1.20); POTASSIUM 3.7 mmol/L (3.5-5.1)
--- NOTE | 2017-11-08 06:42 | Nephrology Progress Note ---
Nephrology Progress Note Date of Service: Nov 08, 2017. Subjective 57 yo female with hyponatremia that continues to trend up. pt tolerating the fluid restriction, lasix and normal saline combination well although would like the fluid restriction broadened if possible. Objective Date Time Temp Pulse Resp B/P (MAP) Pulse Ox O2 Delivery O2 Flow Rate FiO2 11/08/17 04:00 Oxymask 8.0 11/08/17 00:00 Oxymask 8.0 11/08/17 00:00 36.7 109 20 123/70 (87) 95 Oxymask 8.0 11/07/17 22:15 78 20 92 Mask 8.0 11/07/17 20:00 Oxymask 8.0 11/07/17 16:00 Oxymask 8.0 11/07/17 15:23 37.1 117 20 122/61 (81) 97 Oxymask 8.0 11/07/17 12:00 Oxymask 8.0 11/07/17 11:44 36.5 73 18 122/65 (84) 91 11/07/17 08:00 Oxymask 8.0 11/07/17 07:36 36.5 101 20 104/64 (77) 97 Oxymask Physical Exam: General-aaox3, obese Eyes-no scleral icterus ENT-mmm Neck-supple Lungs-decreased at bases Heart-tachy Abdomen-bs+ s/nt/nd Extremities-mild edema with chronic wounds Neuro-nonfocal Current Inpatient Medications Medications (Trade) Dose Ordered Sig/Bruno Route Start Time Stop Time Status Last Admin Dose Admin Heparin Sodium (Porcine) (Heparin Sq 5000 Unit/0.5ml) 5,000 unit Q8 SQ 10/31/17 14:00 11/30/17 13:59 Acetaminophen (Tylenol Tab) 650 mg Q4H PRN PO 10/31/17 07:00 11/30/17 06:59 Al Hydrox/Mg Hydrox/Simethicone (Maalox Max Susp) 15 ml Q4H PRN PO 10/31/17 07:00 11/30/17 06:59 11/03/17 23:49 15 ML Magnesium Hydroxide (Milk Of Magnesia Susp) 30 ml Q12H PRN PO 10/31/17 07:00 11/30/17 06:59 Ondansetron HCl (Zofran Inj) 4 mg Q6H PRN IV 10/31/17 07:00 11/30/17 06:59 11/03/17 00:12 4 MG Morphine Sulfate (MoRPHine SULFATE INJ) 2 mg Q30M PRN IV 10/31/17 07:00 11/14/17 06:59 11/03/17 23:42 2 MG Polyethylene (Miralax Powder Packet) 17 gm DAILY PRN PO 10/31/17 07:00 11/30/17 06:59 Allopurinol (Zyloprim Tab) 200 mg DAILY PO 10/31/17 09:00 11/30/17 08:59 Docusate Sodium (coLACE CAP) 100 mg HS PO 10/31/17 21:00 11/30/17 20:59 11/06/17 09:07 100 MG Multi-Ingredient Ointment (Eucerin Unscented Cr) 1 appln BID EXT 10/31/17 09:00 11/30/17 08:59 11/02/17 20:39 1 APPLN Fluconazole (Diflucan Tab) 100 mg Q2D PO 10/31/17 07:00 11/10/17 06:59 11/06/17 09:07 100 MG Heparin Sodium (Porcine) (Heparin 100 Unit/ml 5ml Flush) 5 ml BID FLUSH 10/31/17 09:00 11/30/17 08:59 11/07/17 21:54 5 ML Metolazone (Zaroxolyn Tab) 5 mg DAILY PO 10/31/17 09:00 11/30/17 08:59 Miconazole Nitrate (Desenex Powder) 1 appln BID EXT 10/31/17 09:00 11/30/17 08:59 11/07/17 08:17 1 APPLN Oxycodone HCl (Roxicodone Immediate Rel Tab) 5 mg Q6H PRN PO 10/31/17 07:00 11/14/17 06:59 11/08/17 02:20 5 MG Potassium Chloride (Klor-Con M10) 10 meq DAILY PO 10/31/17 09:00 11/30/17 08:59 Spironolactone (Aldactone Tab) 25 mg DAILY PO 10/31/17 09:00 11/30/17 08:59 Insulin Aspart (novoLOG ASPART) SLIDING SCALE G... ACHS SC 10/31/17 11:00 11/30/17 10:59 Future hold 11/07/17 17:42 5 UNITS Albuterol Sulfate (Ventolin 0.083% 2.5MG/3ML Neb) 2.5 mg Q4H PRN INH 10/31/17 07:15 11/30/17 07:14 Glucose (Glucose 40% Gel) 15-30 GRAMS 15 GRAMS... UD PRN PO 10/31/17 08:15 11/30/17 08:14 Glucose (Glucose Chew Tab) 4-8 Tablets 4 Tabl... UD PRN PO 10/31/17 08:15 11/30/17 08:14 Dextrose (Dextrose 50% 50ML Syringe) 25-50ML OF 50% DW IV FOR... UD PRN IV 10/31/17 08:15 11/30/17 08:14 Glucagon (Glucagon Inj) 1 mg UD PRN SQ 10/31/17 08:15 11/30/17 08:14 Miscellaneous Information (Consult Glycemic Management Pharmacy) 1 ea UD PRN N/A 11/01/17 20:12 12/01/17 20:11 Menthol (Nice Marko) 1 marko PRN PRN MARKO 11/02/17 01:15 12/02/17 01:14 11/02/17 01:12 1 MARKO Insulin Glargine (Lantus Solostar Pen) BID SC 11/02/17 21:00 12/02/17 20:59 11/07/17 08:28 8 UNITS Doxycycline Hyclate (Vibramycin Cap) 100 mg BID PO 11/03/17 16:00 11/10/17 15:59 11/07/17 21:55 100 MG Heparin Sodium (Porcine) (Heparin 10 Unit/ ml 5 ml Flush) 5 ml PRN PRN FLUSH 11/04/17 10:30 12/04/17 10:29 Sodium Chloride 1,000 ml @ 80 mls/hr [id number] IV 11/04/17 17:00 12/04/17 16:59 11/07/17 19:19 80 MLS/HR Furosemide 20 mg/ Syringe 2 ml @ 4 mls/min TID IV 11/04/17 17:00 12/04/17 16:59 11/07/17 21:53 4 MLS/MIN Albuterol/ Ipratropium (Duoneb) 3 ml Q3H PRN INH 11/06/17 09:00 12/06/17 08:59 11/07/17 22:26 3 ML Lidocaine (Lidoderm Patch 5%) 1 patch QAM TD 11/07/17 09:00 12/07/17 08:59 Miscellaneous (Remove Lidoderm Patch) 1 ea DAILY@21 N/A 11/06/17 21:00 12/06/17 20:59 Last 24 Hours Test 11/07/17 07:32 11/07/17 11:39 11/07/17 16:35 11/08/17 05:14 Bedside Glucose 147 mg/dl 173 mg/dl 208 mg/dl Sodium Level 133 mmol/L Potassium Level 3.7 mmol/L Chloride Level 96 mmol/L Carbon Dioxide Level 29 mmol/L Anion Gap 8.0 mmol/L Blood Urea Nitrogen 65 mg/dl Creatinine 1.09 mg/dl Est Creatinine Clear Calc Drug Dose 74.7 ml/min Estimated GFR () 64.3 Estimated GFR (Non- 55.5 BUN/Creatinine Ratio 60.1 Random Glucose 164 mg/dl Calcium Level 8.5 mg/dl Assessment & Plan hyponatremia-sodium improving and now in the 130s. continue current lasix and normal saline for another 24 hours and then stop them both and resume previous bumex dosing and continue a relative fluid restriction. will broaden the fluid restriction today.
[2017-11-08] MEDS: SODIUM CHLORIDE 0.9% 1000ML 1,000 ML IV SCH ×2 (07:48→21:18)
[2017-11-08] MEDS: EUCERIN CR 120 GM JAR EXT SCH ×2 (07:48→21:00)
[2017-11-08] MEDS: FLUCONAZOLE 100 MG TAB PO SCH (07:48)
[2017-11-08] MEDS: METOLAZONE 5 MG TAB PO SCH (07:48)
[2017-11-08] MEDS: LIDODERM (LIDOCAINE) PATCH 5% TD SCH (07:48)
[2017-11-08] MEDS: POTASSIUM CHLORIDE 10 MEQ TABCR PO SCH (07:48)
[2017-11-08] MEDS: SPIRONOLACTONE 25 MG TAB PO SCH (07:48)
[2017-11-08] MEDS: DOXYCYCLINE HYCLATE 100 MG CAP PO SCH ×2 (07:51→21:20)
[2017-11-08] MEDS: ALLOPURINOL 100 MG TAB PO SCH (08:24)
[2017-11-08] MEDS ORDERED: LDDP5 TD (08:28)
[2017-11-08] MEDS ORDERED: OXYC1TAB3 PO (08:28)
[2017-11-08] MEDS: FUROSEMIDE INJ 20 MG in SYRINGE 0 ML IV SCH ×3 (08:30→21:20)
[2017-11-08] MEDS: INSULIN ASPART 100 UNITS/ML 3 ML PEN SC SCH ×4 (08:31→21:00)
[2017-11-08] MEDS: INSULIN GLARGINE SOLOSTAR 100 UNITS/ML 3 ML PEN SC SCH ×2 (08:31→21:00)
[2017-11-08] MEDS: MICONAZOLE NITRATE POWDER 43 GM EXT SCH ×2 (08:39→21:00)
--- NOTE | 2017-11-08 09:29 | Pharmacy Progress Note ---
Glycemic: Assessment & Plan Date of Service Nov 08, 2017. Assessment & Plan The patient is currently receiving 15 units of insulin per day. BSGs ranging 164 - 208 mg/dl over the past 24hrs. The patient received only 8 units of lantus yesterday as she refused her evening BSG check and thus was unable to receive any insulin. Despite this, fasting and lunch BSGs were acceptable, but higher than would be optimal. Given history of night BSG refusals, may consider moving to a once daily lantus regimen in the morning. * Basal insulin: Lantus scale BID based on BSG (received 8 units this morning) * Correctional Insulin: Novolog Correction per scale ACHS Goal Range: Low 120 mg/dL - High 160 mg/dL Correction Factor: 40 mg/dL/unit * Prandial insulin: Per carb ratio of 1 unit per 20 grams CHO consumed Pharmacy will continue to monitor patient daily and write orders per [facility] inpatient glycemic control protocol. Thanks. * Please note that the plan above was derived based on current level of insulin resistance and hospital stress. These recommendations are appropriate for inpatient admission only. Plan of care upon discharge will need to be reassessed to avoid potential outpatient hypo/hyperglycemia.
--- NOTE | 2017-11-08 17:27 | Progress Note ---
Subjective Date of Service: Nov 08, 2017. Subjective Patient is tolerant of me today however she is frequently redirect the nurses given him instructions on how to wrap her legs. She remains on high flow oxygen 8 L/min she has a loose cough she however does not appear to be in any respiratory distress at this time Problem List Medical Problems: (1) Acute renal disease Status: Acute (2) Acute renal failure Status: Acute (3) ELIZABETH (acute kidney injury) Status: Acute (4) ELIZABETH (acute kidney injury) Status: Acute (5) Anemia Status: Acute (6) Cellulitis Status: Acute (7) Cellulitis of both lower extremities Status: Acute (8) CHF (congestive heart failure) Status: Acute (9) CHF (congestive heart failure) Status: Acute (10) Dehydration Status: Acute (11) Fluid overload Status: Acute (12) Hypoxia Status: Acute (13) Pickwickian syndrome Status: Acute (14) Pneumonia Status: Acute (15) Respiratory failure Status: Acute (16) Sacral decubitus ulcer, stage III Status: Acute (17) UTI (urinary tract infection) Status: Acute (18) UTI (urinary tract infection) due to urinary indwelling Lerner catheter Status: Acute Review of Systems Constitutional: No fever, No chills Respiratory: No shortness of breath, No dyspnea on exertion Cardiac: + orthopnea, + edema, No chest pain Abdomen: No pain, No nausea, No vomiting, No diarrhea Musculoskeletal: + joint pain, + muscle pain Skin: + problem reported (Patient has decubitus ulcers POA) Objective Vital Signs Date Time Temp Pulse Resp B/P (MAP) Pulse Ox O2 Delivery O2 Flow Rate FiO2 11/08/17 16:00 36.4 100 20 132/81 (98) 95 Oxymask 8.0 11/08/17 12:00 Oxymask 8.0 11/08/17 11:00 36.6 101 20 125/73 (90) 92 Oxymask 8.0 11/08/17 08:00 Oxymask 8.0 11/08/17 07:40 36.5 55 20 112/63 (79) 95 Oxymask 8.0 11/08/17 04:00 Oxymask 8.0 11/08/17 00:00 Oxymask 8.0 11/08/17 00:00 36.7 109 20 123/70 (87) 95 Oxymask 8.0 11/07/17 22:15 78 20 92 Mask 8.0 11/07/17 20:00 Oxymask 8.0 Physical Exam General Appearance: WD/WN, + mild distress, + obese Eyes: normal inspection, sclerae normal Respiratory/Chest: chest non-tender, no respiratory distress, + decreased breath sounds Cardiovascular: regular rate, rhythm, no murmur Abdomen: normal bowel sounds, non tender, soft Extremities: + swelling, + pertinent finding (Patient physician is just of chronic venous stasis with open areas to her lower extremities the right was dressed today there is 2-3 graded decubitus ulcer on her left medial heel) Neurologic/Psychiatric: alert, oriented x 3 Laboratory Results Last 24 Hours Test 11/08/17 05:14 11/08/17 08:23 11/08/17 11:59 11/08/17 16:31 Sodium Level 133 mmol/L Potassium Level 3.7 mmol/L Chloride Level 96 mmol/L Carbon Dioxide Level 29 mmol/L Anion Gap 8.0 mmol/L Blood Urea Nitrogen 65 mg/dl Creatinine 1.09 mg/dl Est Creatinine Clear Calc Drug Dose 74.7 ml/min Estimated GFR () 64.3 Estimated GFR (Non- 55.5 BUN/Creatinine Ratio 60.1 Random Glucose 164 mg/dl Calcium Level 8.5 mg/dl Bedside Glucose 176 mg/dl 171 mg/dl 184 mg/dl Assessment and Plan 57-year-old female with past medical history of morbid obesity, chronic respiratory failure on home oxygen, chronic kidney disease stage III, chronic diastolic congestive heart failure, gout, diabetes mellitus type 2 with bilateral lower extremity diabetic foot ulcers, presented to the hospital with left lower lobe pneumonia Acute on chronic hypoxic respiratory failure secondary to Left lower lobe pneumonia/community-acquired, Continue imipenem/doxy patient remains hypoxemic this likely is related to her obesity hypoventilation syndrome concern as we modulate her diuretics that she may have pleural effusion or otherwise. If she does not improve her hypoxia by 11/09 we will pursue chest x-ray Obesity hypoventilation syndrome attempted to reinforce BiPAP use over the patient has refused it COPD without exacerbation her oxygen need may be evolution of her chronic lung disease now may be more oxygen requiring will check chest x-ray in the morning if not improved as mentioned above Acute on chronic hyponatremia, slowly improving, Nephrology consult appreciated they will recommend a 24 hours of saline infusion and resuming Bumex therapy Bilateral lower extremity ulcers patient is requiring special ulcer care and will likely need specialty care follow-up with the nursing facility Diabetes mellitus type 2 has been stable on basal bolus insulin Asymptomatic bacteriuria, Urine is colonized with carbapenem and resistant klebsiella pneumonia Diastolic congestive heart failure concerns would be at the patient developed worsening pleural effusions and x-rays will be performed however I do not feel that she sounds to be in overt pulmonary edema at this time Morbid obesity to strictly impacts her care both with her immobility wound care and breathing Continue on lactobacillus to prevent C. difficile no persistent diarrhea at this time DVT prophylaxis/heparin subcutaneous I had a long discussion with Caridad regarding how she treats staff and physicians she seemed to be disinterested in my opinion she frequently was redirecting nursing staff and a belligerent label is in the room. I do not believe this patient has a healthy relationship with healthcare and continues to be demeaning Continued [facility] stay due to: multiple IV medications needed, other Discharge planning: uncertain
[2017-11-08] MEDS: DOCUSATE SODIUM 100 MG CAP PO SCH (21:00)
[2017-11-09] VITALS (7 sets, daily range): BP systolic 109–131; BP diastolic 54–82; PULSE 52–112; TEMP 35.6–36.6; O2SAT 90–98
[2017-11-09] MEDS: HEPARIN SOD 5000 UNIT/0.5 ML CARP SQ SCH ×3 (05:54→20:56)
[2017-11-09] MEDS: DOXYCYCLINE HYCLATE 100 MG CAP PO SCH ×2 (08:48→22:25)
[2017-11-09] MEDS: INSULIN ASPART 100 UNITS/ML 3 ML PEN SC SCH ×4 (08:54→20:55)
[2017-11-09] MEDS: MICONAZOLE NITRATE POWDER 43 GM EXT SCH ×2 (08:55→20:54)
[2017-11-09] MEDS: EUCERIN CR 120 GM JAR EXT SCH ×2 (08:55→20:54)
[2017-11-09] MEDS: OXYCODONE HCL IR 5 MG TAB (IMMEDIATE RELEASE) PO PRN (08:59)
[2017-11-09] MEDS: LIDODERM (LIDOCAINE) PATCH 5% TD SCH (09:00)
[2017-11-09] MEDS: ALLOPURINOL 100 MG TAB PO SCH (09:00)
[2017-11-09] MEDS: INSULIN GLARGINE SOLOSTAR 100 UNITS/ML 3 ML PEN SC SCH (09:00)
[2017-11-09] MEDS: SPIRONOLACTONE 25 MG TAB PO SCH (09:00)
[2017-11-09] MEDS: POTASSIUM CHLORIDE 10 MEQ TABCR PO SCH (09:00)
[2017-11-09] MEDS: METOLAZONE 5 MG TAB PO SCH (09:00)
[2017-11-09] MEDS: FUROSEMIDE INJ 20 MG in SYRINGE 0 ML IV SCH (09:00)
[2017-11-09] MEDS: SODIUM CHLORIDE 0.9% 1000ML 1,000 ML IV SCH ×2 (09:01→22:00)
--- NOTE | 2017-11-09 09:16 | DIAGNOSTIC IMAGING REPORT ---
CHEST ONE VIEW PORTABLE CLINICAL HISTORY: persistent hypoxia dyspnea COMPARISON STUDY: 10/31/2017 FINDINGS: Unchanged cardiomegaly. Prominent pulmonary vasculature mildly improved in the prior exam. Diaphragms smooth. Mild chronic elevation right hemidiaphragm. IMPRESSION: Stable cardiomegaly. Improved prominence of pulmonary vasculature. The above report was generated using voice recognition software. It may contain grammatical, syntax or spelling errors. Electronically signed by: Parminder Pineda M.D. 11/09/2017 9:15 AM Dictated Date/Time: 11/09/2017 9:14 AM
[2017-11-09 09:54] LABS: CALCIUM 8.7 mg/dl (8.5-10.1); CREATININE 0.94 mg/dl (0.60-1.20); POTASSIUM 3.7 mmol/L (3.5-5.1)
[2017-11-09] MEDS ORDERED: BUMETANIDE SOLN 1 MG/4 ML VIAL IV ONE (12:15)
[2017-11-09] MEDS ORDERED: BUMETANIDE IV 1 MG in SYRINGE 0 ML IV STA (12:16)
--- NOTE | 2017-11-09 13:57 | Pharmacy Progress Note ---
Pharmacy Glycemic Short Note 2 Date of Service Nov 09, 2017. OUTPATIENT ANTIDIABETIC REGIMEN: * Glimepiride 6mg daily * Novolog SSI * HbA1c= 7.8% from 10/08/17 ASSESSMENT: 11/09/17 * Ms. Watkins received 19 units of insulin yesterday * She refused PM BSG check and insulin again last night * Will plan to adjust to qAM Lantus to prevent missed doses in the evening * Est TDD ~20 units so will give 1/2 of this as Lantus * No change to CF/CR 11/08/17 * The patient is currently receiving 15 units of insulin per day. BSGs ranging 164 - 208 mg/dl over the past 24hrs. The patient received only 8 units of lantus yesterday as she refused her evening BSG check and thus was unable to receive any insulin. Despite this, fasting and lunch BSGs were acceptable, but higher than would be optimal. Given history of night BSG refusals, may consider moving to a once daily lantus regimen in the morning. PLAN FOR INPATIENT GLYCEMIC CONTROL: * Continue to hold outpatient oral diabetes medications * Basal insulin - adjust to AM dose only * Lantus 10 units qAM * Bolus insulin - no change * NovoLog per scale ACHS or Q6hrs while NPO * Goal Range: Low 120 mg/dL - High 160 mg/dL * Correction Factor: 40 mg/dL/unit * Nutritional / Prandial insulin per carb ratio of 1 unit per 20 grams CHO consumed PLAN FOR DISCHARGE: * A1c is 7.8% - could be slightly improved * Recommend f/u with outpatient provider for adjustments
--- NOTE | 2017-11-09 15:56 | Progress Note ---
Subjective Date of Service: Nov 09, 2017. Subjective this pt remains short of breath with high oxygen requirements, she did allow a CXR this am and it appears to have persistent vascular congestion by my interpretation Problem List Medical Problems: (1) Acute renal disease Status: Acute (2) Acute renal failure Status: Acute (3) ELIZABETH (acute kidney injury) Status: Acute (4) ELIZABETH (acute kidney injury) Status: Acute (5) Anemia Status: Acute (6) Cellulitis Status: Acute (7) Cellulitis of both lower extremities Status: Acute (8) CHF (congestive heart failure) Status: Acute (9) CHF (congestive heart failure) Status: Acute (10) Dehydration Status: Acute (11) Fluid overload Status: Acute (12) Hypoxia Status: Acute (13) Pickwickian syndrome Status: Acute (14) Pneumonia Status: Acute (15) Respiratory failure Status: Acute (16) Sacral decubitus ulcer, stage III Status: Acute (17) UTI (urinary tract infection) Status: Acute (18) UTI (urinary tract infection) due to urinary indwelling Lerner catheter Status: Acute Review of Systems Constitutional: + weakness, + fatigue, No fever, No chills Respiratory: + cough, + shortness of breath, + dyspnea on exertion Cardiac: + edema, No chest pain Abdomen: + vomiting, No pain, No nausea Skin: + problem reported (significant pressure related skin issues) Objective Vital Signs Date Time Temp Pulse Resp B/P (MAP) Pulse Ox O2 Delivery O2 Flow Rate FiO2 11/09/17 12:03 36.6 101 19 129/78 (95) 98 Room Air 11/09/17 12:00 Oxymask 7.0 11/09/17 08:00 Oxymask 7.0 11/09/17 06:53 35.6 52 20 124/71 (88) 97 Oxymask 7.0 11/09/17 04:00 Oxymask 8.0 11/09/17 00:00 Oxymask 8.0 11/08/17 23:11 36.8 109 20 124/70 (88) 92 Oxymask 7.0 11/08/17 20:00 93 Oxymask 7.0 11/08/17 18:53 36.3 116 20 120/66 (84) 93 Oxymask 7.0 11/08/17 16:00 Oxymask 8.0 11/08/17 16:00 36.4 100 20 132/81 (98) 95 Oxymask 8.0 Physical Exam General Appearance: + mild distress, + obese Eyes: normal inspection, sclerae normal Respiratory/Chest: chest non-tender, + decreased breath sounds, + accessory muscle use Cardiovascular: regular rate, rhythm Abdomen: normal bowel sounds, soft Extremities: + pedal edema, + swelling, + pertinent finding (changes of chronic venous statis and ulceration of left inner heel) Laboratory Results Last 24 Hours Test 11/08/17 16:31 11/09/17 07:37 11/09/17 09:10 11/09/17 11:51 Bedside Glucose 184 mg/dl 145 mg/dl 180 mg/dl Sodium Level 138 mmol/L Potassium Level 3.7 mmol/L Chloride Level 101 mmol/L Carbon Dioxide Level 31 mmol/L Anion Gap 6.0 mmol/L Blood Urea Nitrogen 52 mg/dl Creatinine 0.94 mg/dl Est Creatinine Clear Calc Drug Dose 86.6 ml/min Estimated GFR () 77.0 Estimated GFR (Non- 66.4 BUN/Creatinine Ratio 55.5 Random Glucose 183 mg/dl Calcium Level 8.7 mg/dl Assessment and Plan 57-year-old female with past medical history of morbid obesity, chronic respiratory failure on home oxygen, chronic kidney disease stage III, chronic diastolic congestive heart failure, gout, diabetes mellitus type 2 with bilateral lower extremity diabetic foot ulcers, presented to the hospital with left lower lobe pneumonia Acute on chronic hypoxic respiratory failure secondary to Left lower lobe pneumonia/community-acquired, Continue imipenem/doxy patient remains hypoxemic this likely is related to her obesity hypoventilation syndrome, Chronic Diastolic congestive heart failure will transition to bumex giving iv dose 11/09 am and starting bid po dosing stopping lasix Obesity hypoventilation syndrome attempted to reinforce BiPAP use over the patient has continued to refuse it COPD without exacerbation her oxygen need may be evolution of her chronic lung disease now may be more oxygen requiring this maybe her lung disease progressing and if not able to titrarte oxygen may need pulmonary oversight Acute on chronic hyponatremia, slowly improving, will loosen volume restriction 11/09 Bilateral lower extremity ulcers patient continues to require special ulcer care and will likely need specialty care follow-up with the nursing facility Diabetes mellitus type 2 has acceptable control on basal bolus insulin Asymptomatic bacteriuria, Urine is colonized with carbapenem and resistant klebsiella pneumonia Morbid obesity to strictly impacts her care both with her immobility wound care and breathing Continue on lactobacillus to prevent C. difficile no persistent diarrhea at this time DVT prophylaxis/heparin subcutaneous Continued [facility] stay due to: multiple IV medications needed, other Discharge planning: uncertain
[2017-11-09] MEDS: BUMETANIDE 1 MG TAB PO SCH (17:56)
[2017-11-09] MEDS: DOCUSATE SODIUM 100 MG CAP PO SCH (20:55)
[2017-11-10] VITALS (7 sets, daily range): BP systolic 133–135; BP diastolic 55–77; PULSE 57–110; TEMP 36.4–36.6; O2SAT 92–96
[2017-11-10] MEDS: OXYCODONE HCL IR 5 MG TAB (IMMEDIATE RELEASE) PO PRN (02:03)
[2017-11-10] MEDS: HEPARIN SOD 5000 UNIT/0.5 ML CARP SQ SCH ×3 (05:32→20:52)
[2017-11-10] MEDS: DOXYCYCLINE HYCLATE 100 MG CAP PO SCH (07:47)
[2017-11-10] MEDS: BUMETANIDE 1 MG TAB PO SCH ×2 (07:47→17:55)
[2017-11-10] MEDS: EUCERIN CR 120 GM JAR EXT SCH ×2 (07:48→20:51)
[2017-11-10] MEDS: MICONAZOLE NITRATE POWDER 43 GM EXT SCH ×2 (07:48→20:51)
[2017-11-10] MEDS: POTASSIUM CHLORIDE 10 MEQ TABCR PO SCH (07:48)
[2017-11-10] MEDS: SPIRONOLACTONE 25 MG TAB PO SCH (07:48)
[2017-11-10] MEDS: METOLAZONE 5 MG TAB PO SCH (07:48)
[2017-11-10] MEDS: ALLOPURINOL 100 MG TAB PO SCH (07:49)
[2017-11-10] MEDS: LIDODERM (LIDOCAINE) PATCH 5% TD SCH (07:49)
[2017-11-10] MEDS: INSULIN GLARGINE SOLOSTAR 100 UNITS/ML 3 ML PEN SC SCH (07:59)
[2017-11-10] MEDS: INSULIN ASPART 100 UNITS/ML 3 ML PEN SC SCH ×4 (07:59→20:51)
[2017-11-10] MEDS: SODIUM CHLORIDE 0.9% 1000ML 1,000 ML IV SCH (08:50)
[2017-11-10 09:00] LABS: BASO % 0.1 %; BASO ABS # 0.01 K/uL (0-0.2); EOS % 1.6 %; EOS ABS # 0.16 K/uL (0-0.5); HEMOGLOBIN 9.7 g/dL (12.0-16.0); IG# 0.13 K/uL (0.00-0.02); LYMPH % 10.8 %; LYMPH ABS # 1.07 K/uL (1.2-3.4); MEAN CELL VOLUME 88.9 fL (80-100); MEAN CORPUSCULAR HEMOGLOBIN 26.9 pg (25-34); MEAN CORPUSCULAR HGB CONC 30.3 g/dl (32-36); MONO % 5.8 %; MONO ABS # 0.57 K/uL (0.11-0.59); NEUT % 80.4 %; NEUT ABS # 7.94 K/uL (1.4-6.5); PLATELET COUNT 165 K/uL (130-400); RED CELL DISTRIBUTION WIDTH SD 64.8 fL (36.4-46.3); WHITE BLOOD COUNT 9.88 K/uL (4.8-10.8)
--- NOTE | 2017-11-10 09:12 | Pharmacy Progress Note ---
Pharmacy Glycemic Short Note 2 Date of Service Nov 10, 2017. OUTPATIENT ANTIDIABETIC REGIMEN: * Glimepiride 6mg daily * Novolog SSI * HbA1c= 7.8% from 10/08/17 Test 11/09/17 09:10 11/09/17 11:51 11/09/17 16:56 11/10/17 07:52 Random Glucose 183 mg/dl (70-99) Bedside Glucose 180 mg/dl (70-90) 175 mg/dl (70-90) 177 mg/dl (70-90) ASSESSMENT: 11/10/17 * Patient received 17 units of insulin yesterday * Only refused dose of insulin was PM Novolog but she refused PM BSG check as well * Fasting is elevated this AM but I'm hesitant to adjust Lantus until dose closer to steady state * Re-evaluate tomorrow AM * Postprandial BSGs somewhat elevated but again, waiting to see what higher dose of basal will do to BSGs * Re-evaluate later today or tomorrow AM 11/09/17 * Ms. Watkins received 19 units of insulin yesterday * She refused PM BSG check and insulin again last night * Will plan to adjust to qAM Lantus to prevent missed doses in the evening * Est TDD ~20 units so will give 1/2 of this as Lantus * No change to CF/CR 11/08/17 * The patient is currently receiving 15 units of insulin per day. BSGs ranging 164 - 208 mg/dl over the past 24hrs. The patient received only 8 units of lantus yesterday as she refused her evening BSG check and thus was unable to receive any insulin. Despite this, fasting and lunch BSGs were acceptable, but higher than would be optimal. Given history of night BSG refusals, may consider moving to a once daily lantus regimen in the morning. PLAN FOR INPATIENT GLYCEMIC CONTROL: * Continue to hold outpatient oral diabetes medications * Basal insulin - no change * Lantus 10 units qAM * Bolus insulin - no change * NovoLog per scale ACHS or Q6hrs while NPO * Goal Range: Low 120 mg/dL - High 160 mg/dL * Correction Factor: 40 mg/dL/unit * Nutritional / Prandial insulin per carb ratio of 1 unit per 20 grams CHO consumed PLAN FOR DISCHARGE: * A1c is 7.8% - could be slightly improved * Recommend f/u with outpatient provider for adjustments
[2017-11-10 09:31] LABS: CALCIUM 8.3 mg/dl (8.5-10.1); CREATININE 1.17 mg/dl (0.60-1.20); POTASSIUM 4.2 mmol/L (3.5-5.1)
--- NOTE | 2017-11-10 13:11 | Progress Note ---
Subjective Date of Service: Nov 10, 2017. Subjective pt remains frustrated about her lack of progress with her wounds and overall care, she is continuing to be pessimistic about retuning to snf Problem List Medical Problems: (1) Acute renal disease Status: Acute (2) Acute renal failure Status: Acute (3) ELIZABETH (acute kidney injury) Status: Acute (4) ELIZABETH (acute kidney injury) Status: Acute (5) Anemia Status: Acute (6) Cellulitis Status: Acute (7) Cellulitis of both lower extremities Status: Acute (8) CHF (congestive heart failure) Status: Acute (9) CHF (congestive heart failure) Status: Acute (10) Dehydration Status: Acute (11) Fluid overload Status: Acute (12) Hypoxia Status: Acute (13) Pickwickian syndrome Status: Acute (14) Pneumonia Status: Acute (15) Respiratory failure Status: Acute (16) Sacral decubitus ulcer, stage III Status: Acute (17) UTI (urinary tract infection) Status: Acute (18) UTI (urinary tract infection) due to urinary indwelling Lerner catheter Status: Acute Review of Systems Constitutional: + weakness, + fatigue, No fever, No chills Respiratory: + shortness of breath, + dyspnea on exertion, No cough Cardiac: No chest pain, No PND, No edema Abdomen: No pain, No nausea, No vomiting, No diarrhea Musculoskeletal: + joint pain, + muscle pain, + swelling, + calf pain Female : No dysuria, No hematuria Psychiatric: + depression symptoms, + anxiety Objective Vital Signs Date Time Temp Pulse Resp B/P (MAP) Pulse Ox O2 Delivery O2 Flow Rate FiO2 11/10/17 12:26 36.5 110 20 135/77 (96) 95 Nasal Cannula 7.0 11/10/17 08:07 36.6 57 20 133/71 (91) 94 Oxymask 7.0 11/10/17 08:00 Oxymask 7.0 11/10/17 04:00 92 Oxymask 7.0 11/10/17 00:00 92 Oxymask 7.0 11/09/17 23:38 36.5 110 20 109/75 (86) 94 Oxymask 7.0 11/09/17 20:16 36.3 110 20 131/54 (79) 95 Oxymask 7.0 11/09/17 20:00 92 Oxymask 7.0 11/09/17 16:05 36.5 112 19 130/82 (98) 92 Oxymask 7.0 11/09/17 16:00 90 Nasal Cannula 7.0 Physical Exam General Appearance: WD/WN, + mild distress Eyes: normal inspection, sclerae normal Cardiovascular: regular rate, rhythm, + systolic murmur Abdomen: normal bowel sounds, non tender, soft Neurologic/Psychiatric: alert, oriented x 3 Laboratory Results Last 24 Hours Test 11/09/17 16:56 11/10/17 07:52 11/10/17 08:49 11/10/17 11:54 Bedside Glucose 175 mg/dl 177 mg/dl 164 mg/dl White Blood Count 9.88 K/uL Red Blood Count 3.60 M/uL Hemoglobin 9.7 g/dL Hematocrit 32.0 % Mean Corpuscular Volume 88.9 fL Mean Corpuscular Hemoglobin 26.9 pg Mean Corpuscular Hemoglobin Concent 30.3 g/dl Platelet Count 165 K/uL Mean Platelet Volume 9.0 fL Neutrophils (%) (Auto) 80.4 % Lymphocytes (%) (Auto) 10.8 % Monocytes (%) (Auto) 5.8 % Eosinophils (%) (Auto) 1.6 % Basophils (%) (Auto) 0.1 % Neutrophils # (Auto) 7.94 K/uL Lymphocytes # (Auto) 1.07 K/uL Monocytes # (Auto) 0.57 K/uL Eosinophils # (Auto) 0.16 K/uL Basophils # (Auto) 0.01 K/uL RDW Standard Deviation 64.8 fL RDW Coefficient of Variation 20.0 % Immature Granulocyte % (Auto) 1.3 % Immature Granulocyte # (Auto) 0.13 K/uL Anisocytosis PRESENT Tear Drop Cells OCCASIONAL Sodium Level 138 mmol/L Potassium Level 4.2 mmol/L Chloride Level 101 mmol/L Carbon Dioxide Level 32 mmol/L Anion Gap 5.0 mmol/L Blood Urea Nitrogen 49 mg/dl Creatinine 1.17 mg/dl Est Creatinine Clear Calc Drug Dose 69.6 ml/min Estimated GFR () 59.1 Estimated GFR (Non- 51.0 BUN/Creatinine Ratio 41.5 Random Glucose 242 mg/dl Calcium Level 8.3 mg/dl Assessment and Plan 57-year-old female with past medical history of morbid obesity, chronic respiratory failure on home oxygen, chronic kidney disease stage III, chronic diastolic congestive heart failure, gout, diabetes mellitus type 2 with bilateral lower extremity diabetic foot ulcers, presented to the hospital with left lower lobe pneumonia Acute on chronic hypoxic respiratory failure secondary to Left lower lobe pneumonia/community-acquired, patient remains hypoxemic this likely is related to her obesity hypoventilation syndrome, Chronic Diastolic congestive heart failure will transition to bumex starting bid po dosing stopping lasix Pt had a short run of atrial tachycardia, self resolved, will follow on monitor , in past has been with ivc filter and was on xarelto in the past, now on sc heparin, she has had ectopic atrial tachycardia in the past few years seen in consult by [facility] cardiology Obesity hypoventilation syndrome attempted to reinforce BiPAP use over the patient has continued to refuse it, explained that this will be helpful in her hypoxia but she continues to refuse to wear it COPD without exacerbation I believe her oxygen need may be evolution of her chronic lung disease now may be more oxygen requiring this maybe her lung disease progressing and if not able to titrarte oxygen may need pulmonary oversight Acute on chronic hyponatremia, resolved and have loosen volume restriction 11/09 Bilateral lower extremity ulcers pt has daily dressing changes and slow improvement in wounds Diabetes mellitus type 2 has acceptable control on basal bolus insulin Asymptomatic bacteriuria, Urine is colonized with carbapenem and resistant klebsiella pneumonia Morbid obesity to strictly impacts her care both with her immobility wound care and breathing Continue on lactobacillus to prevent C. difficile no persistent diarrhea at this time DVT prophylaxis/heparin subcutaneous Continued [facility] stay due to: multiple IV medications needed, other Discharge planning: uncertain
[2017-11-10] MEDS: DOCUSATE SODIUM 100 MG CAP PO SCH (17:54)
[2017-11-10] MEDS: ALBUT/IPRATROP 3MG/0.5MG NEB 3 ML VIAL INH PRN (20:58)
[2017-11-11] VITALS (13 sets, daily range): BP systolic 103–117; BP diastolic 59–69; PULSE 54–115; TEMP 36.3–36.4; O2SAT 90–97
[2017-11-11] MEDS: HEPARIN SOD 5000 UNIT/0.5 ML CARP SQ SCH ×3 (06:00→21:11)
[2017-11-11] MEDS: BUMETANIDE 1 MG TAB PO SCH ×2 (07:49→17:28)
[2017-11-11] MEDS: ALLOPURINOL 100 MG TAB PO SCH (07:49)
[2017-11-11] MEDS: METOLAZONE 5 MG TAB PO SCH (07:50)
[2017-11-11] MEDS: SPIRONOLACTONE 25 MG TAB PO SCH (07:50)
[2017-11-11] MEDS: POTASSIUM CHLORIDE 10 MEQ TABCR PO SCH (07:50)
[2017-11-11] MEDS: LIDODERM (LIDOCAINE) PATCH 5% TD SCH (07:50)
[2017-11-11] MEDS: INSULIN GLARGINE SOLOSTAR 100 UNITS/ML 3 ML PEN SC SCH (08:15)
[2017-11-11] MEDS: INSULIN ASPART 100 UNITS/ML 3 ML PEN SC SCH ×4 (08:16→21:00)
[2017-11-11] MEDS: EUCERIN CR 120 GM JAR EXT SCH ×2 (08:18→21:00)
[2017-11-11] MEDS: MICONAZOLE NITRATE POWDER 43 GM EXT SCH ×2 (08:18→21:11)
[2017-11-11 09:16] LABS: CALCIUM 8.9 mg/dl (8.5-10.1); CREATININE 1.02 mg/dl (0.60-1.20); POTASSIUM 4.1 mmol/L (3.5-5.1)
--- NOTE | 2017-11-11 14:05 | Progress Note ---
Subjective Date of Service: Nov 11, 2017. Subjective Pt evaluation today including: conversation w/ patient Patient has no new complaints. Patient reports that she continues to require oxymask. Patient denies any significant improvement overall. She reports coughing with minimal production. Problem List Medical Problems: (1) Acute renal disease Status: Acute (2) Acute renal failure Status: Acute (3) ELIZABETH (acute kidney injury) Status: Acute (4) ELIZABETH (acute kidney injury) Status: Acute (5) Anemia Status: Acute (6) Cellulitis Status: Acute (7) Cellulitis of both lower extremities Status: Acute (8) CHF (congestive heart failure) Status: Acute (9) CHF (congestive heart failure) Status: Acute (10) Dehydration Status: Acute (11) Fluid overload Status: Acute (12) Hypoxia Status: Acute (13) Pickwickian syndrome Status: Acute (14) Pneumonia Status: Acute (15) Respiratory failure Status: Acute (16) Sacral decubitus ulcer, stage III Status: Acute (17) UTI (urinary tract infection) Status: Acute (18) UTI (urinary tract infection) due to urinary indwelling Lerner catheter Status: Acute Review of Systems Constitutional: No fever, No chills Eyes: No worsening of vision ENT: No hearing loss Respiratory: + cough, + shortness of breath Cardiac: No chest pain Abdomen: No pain Musculoskeletal: No joint pain Neurologic: No memory loss Psychiatric: No depression symptoms Endo: No fatigue Skin: No rash All Other Systems: Reviewed and Negative Objective Vital Signs Date Time Temp Pulse Resp B/P (MAP) Pulse Ox O2 Delivery O2 Flow Rate FiO2 11/11/17 08:00 97 Nasal Cannula 7.0 11/11/17 06:50 36.3 54 18 117/69 (85) 97 Oxymask 7.0 11/11/17 04:00 96 Nasal Cannula 7.0 11/11/17 03:54 107 11/11/17 00:17 105 11/11/17 00:00 96 Nasal Cannula 7.0 11/10/17 20:58 88 20 96 Mask 7.0 11/10/17 20:00 Nasal Cannula 7.0 11/10/17 16:25 36.4 110 20 133/55 (81) 92 Oxymask 7.0 11/10/17 16:00 92 Nasal Cannula 7.0 Physical Exam Comments: General Appearance: WD/WN, no apparent distress, + obese Head: normocephalic, atraumatic Eyes: normal inspection, EOMI, sclerae normal ENT: normal ENT inspection, hearing grossly normal, pharynx normal Neck: supple, no adenopathy, thyroid normal, trachea midline Respiratory/Chest: mild rhonchi anteriorly Cardiovascular: regular rate, rhythm, no gallop, no murmur Abdomen/GI: normal bowel sounds, non tender, soft, no organomegaly Extremities/Musculoskelatal: no calf tenderness, normal capillary refill, + swelling Neurologic/Psych: alert, oriented x 3 Skin: normal color, no rash, Lymphatic: no adenopathy Laboratory Results Last 24 Hours Test 11/10/17 17:08 11/11/17 07:36 11/11/17 08:15 11/11/17 11:33 Bedside Glucose 207 mg/dl 165 mg/dl 156 mg/dl Sodium Level 137 mmol/L Potassium Level 4.1 mmol/L Chloride Level 100 mmol/L Carbon Dioxide Level 32 mmol/L Anion Gap 5.0 mmol/L Blood Urea Nitrogen 43 mg/dl Creatinine 1.02 mg/dl Est Creatinine Clear Calc Drug Dose 79.8 ml/min Estimated GFR () 69.7 Estimated GFR (Non- 60.2 BUN/Creatinine Ratio 42.0 Random Glucose 215 mg/dl Calcium Level 8.9 mg/dl Assessment and Plan will recommend pulmonary touch base again with patient, especially since patient still requires large amount of d/w APC from pulmonary 57-year-old female with past medical history of morbid obesity, chronic respiratory failure on home oxygen, chronic kidney disease stage III, chronic diastolic congestive heart failure, gout, diabetes mellitus type 2 with bilateral lower extremity diabetic foot ulcers, presented to the hospital with left lower lobe pneumonia Acute on chronic hypoxic respiratory failure secondary to Left lower lobe pneumonia/community-acquired, patient remains hypoxemic this likely is related to her obesity hypoventilation syndrome, will try to titrate down her oxygen. will reconsult pulmonary as she continues to require large amounts of oxygen and is not ready for discharge as of yet. Chronic Diastolic congestive heart failure will transition to bumex starting bid po dosing stopping lasix Pt had a short run of atrial tachycardia, self resolved, will follow on monitor , in past has been with ivc filter and was on xarelto in the past, now on sc heparin, she has had ectopic atrial tachycardia in the past few years seen in consult by [facility] cardiology Obesity hypoventilation syndrome attempted to reinforce BiPAP use over the patient has continued to refuse it, explained that this will be helpful in her hypoxia but she continues to refuse to wear it Hoping that with pulmonary back on board, we can possibly convince her to wear this. 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 difficile no persistent diarrhea at this time DVT prophylaxis/heparin subcutaneous Spent 50 minutes in the management of this patient. Continued [facility] stay due to: multiple IV medications needed, other Discharge planning: uncertain
--- NOTE | 2017-11-11 15:56 | PULMONARY PROGRESS NOTE ---
DATE: 11/11/2017 TIME: 03:20 p.m. SUBJECTIVE: The patient was requested to be seen again by the hospitalist service. She was admitted back on October 31. At that time, she had presented with shortness of breath. She apparently has had numerous hospitalizations. She tells me that she has a history of COPD. She used to see pulmonary doctors in [place]. I do not think she has seen them for quite some time. She was on BiPAP apparently because of sleep apnea. She states she did fine with BiPAP. However, she does not like the mask that we have in the hospital. She feels it is too big and she will not wear it. She insists that her mask she had at home was fine. She cannot tell me how long she has been at [facility]. She indicates that she does not wear BiPAP at [facility]. Thus, it may have been quite some time since she is actually worn it. According to the hospital staff, she has been refusing a lot of different modalities diagnostically and therapeutically. The patient has been resistant to turning her oxygen down. She has been on 7 liter OxyMask. It appears that she has been on this amount for quite some time despite not having any low oxygen levels. She was on 8 liters as far back as the or . She does not complain of severe shortness of breath. I think she is afraid to turn it back. She said the nasal cannula was bothering her nose and it was so dry. She has a loose cough, but she is not bringing much up. Nursing staff had indicated that the patient yells at numerous caregivers. OBJECTIVE: GENERAL: The patient appeared in no distress. She did have her OxyMask on at 7 liters. VITAL SIGNS: Temperature is 36.3. She is obese. Her BMI is listed as 44.1. Her heart rate is 109 per minute. She does have fairly frequent PVCs. Most of the time, her heart rate seems to be above 100. This morning, however, it was reported as 54 at 06:50 a.m. LUNGS: The lung cassidy reveal mild rhonchi bilaterally. Saturation is 97%. The patient does have a systolic murmur grade 2/6. ABDOMEN: Obese. It was soft and nontender. EXTREMITIES: The right lower extremity is wrapped. She has what appears to be chronic changes in both legs. The left leg does not look as edematous as the right leg. Her CAT scan of the chest that was done on 11/02/2017 shows bibasilar parenchymal infiltrates. IMPRESSIONS: 1. Pneumonia -- clinically improved. 2. Chronic obstructive pulmonary disease. 3. Obstructive sleep apnea. 4. Obesity. COMMENTS AND RECOMMENDATIONS: I spoke with the patient about the need to try and decrease her oxygen prior to discharge. She is agreeable to trying the OxyMask down gradually. I explained to her that the nurses would go and check her in 30 minutes any time they make a change in her oxygen levels. Our goal is to keep her anywhere above 90%. She is getting respiratory treatments just p.r.n. I think she might do better if she had them more regularly. Because of her PVCs and tachycardia, we will order levalbuterol and ipratropium and will do it about every 6 hours or thereabout. Hopefully, she will not refuse these. I am doubtful the patient is willing to wear BiPAP here when she gets a different mask.
[2017-11-11] MEDS: DOCUSATE SODIUM 100 MG CAP PO SCH (17:28)
[2017-11-11] MEDS: LEVALBUTEROL 0.63MG/3 ML NEB INH SCH (19:46)
[2017-11-11] MEDS: IPRATROPIUM BROMIDE NEB SOLN 0.02% 2.5 ML VIAL INH SCH (19:46)
[2017-11-11] MEDS ORDERED: LEVALBUTEROL/IPRATROPIUM NEB INH SCH (21:00)
[2017-11-11] MEDS: OXYCODONE HCL IR 5 MG TAB (IMMEDIATE RELEASE) PO PRN (22:15)
[2017-11-11] MEDS: ALBUT/IPRATROP 3MG/0.5MG NEB 3 ML VIAL INH PRN (23:29)
[2017-11-12] VITALS (15 sets, daily range): BP systolic 91–110; BP diastolic 52–72; PULSE 91–110; TEMP 36.3–37; O2SAT 82–96
[2017-11-12] MEDS: HEPARIN SOD 5000 UNIT/0.5 ML CARP SQ SCH ×3 (05:49→22:00)
[2017-11-12] MEDS: LEVALBUTEROL 0.63MG/3 ML NEB INH SCH ×3 (07:00→22:05)
[2017-11-12] MEDS: IPRATROPIUM BROMIDE NEB SOLN 0.02% 2.5 ML VIAL INH SCH ×3 (07:00→22:04)
[2017-11-12] MEDS: BUMETANIDE 1 MG TAB PO SCH ×2 (08:05→17:28)
[2017-11-12] MEDS: POTASSIUM CHLORIDE 10 MEQ TABCR PO SCH (08:09)
[2017-11-12] MEDS: ALLOPURINOL 100 MG TAB PO SCH (08:09)
[2017-11-12] MEDS: SPIRONOLACTONE 25 MG TAB PO SCH (08:09)
[2017-11-12] MEDS: METOLAZONE 5 MG TAB PO SCH (08:09)
[2017-11-12] MEDS: INSULIN ASPART 100 UNITS/ML 3 ML PEN SC SCH ×4 (08:09→21:00)
[2017-11-12] MEDS: LIDODERM (LIDOCAINE) PATCH 5% TD SCH (08:15)
[2017-11-12] MEDS: MICONAZOLE NITRATE POWDER 43 GM EXT SCH ×2 (08:16→21:06)
[2017-11-12] MEDS: EUCERIN CR 120 GM JAR EXT SCH ×2 (08:16→21:06)
[2017-11-12] MEDS: INSULIN GLARGINE SOLOSTAR 100 UNITS/ML 3 ML PEN SC SCH (08:16)
[2017-11-12 09:00] LABS: CREATININE 1.01 mg/dl (0.60-1.20); POTASSIUM 4.2 mmol/L (3.5-5.1)
--- NOTE | 2017-11-12 12:36 | PULMONARY PROGRESS NOTE ---
DATE: 11/12/2017 TIME: 12:10 p.m. SUBJECTIVE: The patient denies shortness of breath. She was less engaged today. She did not give me eye contact. She has been agitated with nursing staff. We did cut her oxygen by OxyMask down to 4 liters and she did well. At 3 liters, she dropped down to 85% and 2 liters down to 82%. She then was put back on 5 liters where she is at present. It would appear that 4 liters by OxyMask would be sufficient for her. She denies expectorating any phlegm. Reportedly, she has been taking her nebulizer treatments. OBJECTIVE: GENERAL: The patient did not appear in any distress. EARS, NOSE, AND THROAT: Unchanged. VITAL SIGNS: Heart rate is 114. Rhythm is sinus tachycardia with frequent PVCs. LUNGS: Lung cassidy revealed just a few scattered rhonchi. It is difficult to examining the patient because she cannot or will not turn very much. She did indicate that by trying to turn her slightly, it was hurting her in her crevices in the back. EXTREMITIES: Unchanged from yesterday. LABORATORY DATA: Electrolytes today show sodium 138, potassium 4.2, chloride 101, and bicarbonate 32. BUN is 38 with a creatinine of 1.01. The prior BUN was 43. Blood sugar is 203. IMPRESSIONS: 1. Pneumonia -- clinically improved. 2. Chronic obstructive pulmonary disease. 3. Obstructive sleep apnea -- noncompliant with BiPAP. 4. Obesity. COMMENTS AND RECOMMENDATIONS: The patient is adamant that she will never take less than 4 liters of oxygen. I did try to explain to her that via OxyMask, she gets a higher percentage than she does by nasal. She likes the mask better than nasal, which bothers her nose apparently. She may well be at her baseline. I would suggest continuing her neb treatments 3-4 times per day on a regular basis if she will tolerate it.
--- NOTE | 2017-11-12 14:45 | Pharmacy Progress Note ---
Pharmacy Glycemic Short Note 2 Date of Service Nov 12, 2017. OUTPATIENT ANTIDIABETIC REGIMEN: * Glimepiride 6mg daily * Novolog SSI * HbA1c= 7.8% from 10/08/17 ASSESSMENT: 11/12/17 * Patient received 18 units of insulin yesterday * Only refused dose of insulin was PM Novolog but she refused PM BSG check as well (blood sugars yesterday were 165-156-200 mg/dL) * Fasting blood sugar was 208 mg/dL, attempted to increase Lantus dose this morning but patient already received 10 units and refused additional 2 units ( represents a 20% increase) * Postprandial BSGs somewhat elevated ... tightened parameters slightly for dinner. Patient always refuses evening check so not worried about receiving too much Novolog. PLAN FOR INPATIENT GLYCEMIC CONTROL: * Continue to hold outpatient oral diabetes medications * Basal insulin - increase tomorrow * Lantus 12 units qAM * Bolus insulin - tighten slightly * NovoLog per scale ACHS or Q6hrs while NPO * Goal Range: Low 120 mg/dL - High 160 mg/dL * Correction Factor: 35 mg/dL/unit * Nutritional / Prandial insulin per carb ratio of 1 unit per 12 grams CHO consumed PLAN FOR DISCHARGE: * A1c is 7.8% - could be slightly improved in a type 2 diabetic with reasonable co-morbidities * Recommend f/u with outpatient provider for adjustments
--- NOTE | 2017-11-12 15:25 | Infectious Disease Progress Nt ---
Progress Note Date of Service Nov 12, 2017. Subjective Pt evaluation today including: conversation w/ patient, physical exam, chart review, lab review, review of studies, conversation w/ security consultant, review of inpatient medication list Continues to be rude and belligerent. Remains afebrile. Still with intermittent shortness of breath. Pulmonary follow-up noted. Leg wounds continue to improve. Now off all antibiotics. All Other Systems: Reviewed and Negative Medications Current Inpatient Medications Medications (Trade) Dose Ordered Sig/Bruno Route Start Time Stop Time Status Last Admin Dose Admin Heparin Sodium (Porcine) (Heparin Sq 5000 Unit/0.5ml) 5,000 unit Q8 SQ 10/31/17 14:00 11/30/17 13:59 Acetaminophen (Tylenol Tab) 650 mg Q4H PRN PO 10/31/17 07:00 11/30/17 06:59 Al Hydrox/Mg Hydrox/Simethicone (Maalox Max Susp) 15 ml Q4H PRN PO 10/31/17 07:00 11/30/17 06:59 11/03/17 23:49 15 ML Magnesium Hydroxide (Milk Of Magnesia Susp) 30 ml Q12H PRN PO 10/31/17 07:00 11/30/17 06:59 Ondansetron HCl (Zofran Inj) 4 mg Q6H PRN IV 10/31/17 07:00 11/30/17 06:59 11/03/17 00:12 4 MG Morphine Sulfate (MoRPHine SULFATE INJ) 2 mg Q30M PRN IV 10/31/17 07:00 11/14/17 06:59 11/03/17 23:42 2 MG Polyethylene (Miralax Powder Packet) 17 gm DAILY PRN PO 10/31/17 07:00 11/30/17 06:59 Allopurinol (Zyloprim Tab) 200 mg DAILY PO 10/31/17 09:00 11/30/17 08:59 Docusate Sodium (coLACE CAP) 100 mg HS PO 10/31/17 21:00 11/30/17 20:59 11/11/17 17:28 100 MG Multi-Ingredient Ointment (Eucerin Unscented Cr) 1 appln BID EXT 10/31/17 09:00 11/30/17 08:59 11/11/17 08:18 1 APPLN Heparin Sodium (Porcine) (Heparin 100 Unit/ml 5ml Flush) 5 ml BID FLUSH 10/31/17 09:00 11/30/17 08:59 11/11/17 21:10 5 ML Metolazone (Zaroxolyn Tab) 5 mg DAILY PO 10/31/17 09:00 11/30/17 08:59 Miconazole Nitrate (Desenex Powder) 1 appln BID EXT 10/31/17 09:00 11/30/17 08:59 11/11/17 21:11 1 APPLN Oxycodone HCl (Roxicodone Immediate Rel Tab) 5 mg Q6H PRN PO 10/31/17 07:00 11/14/17 06:59 11/11/17 22:15 5 MG Potassium Chloride (Klor-Con M10) 10 meq DAILY PO 10/31/17 09:00 11/30/17 08:59 Spironolactone (Aldactone Tab) 25 mg DAILY PO 10/31/17 09:00 11/30/17 08:59 Insulin Aspart (novoLOG ASPART) SLIDING SCALE G... ACHS SC 10/31/17 11:00 11/30/17 10:59 Future hold 11/12/17 12:10 4 UNITS Albuterol Sulfate (Ventolin 0.083% 2.5MG/3ML Neb) 2.5 mg Q4H PRN INH 10/31/17 07:15 11/30/17 07:14 Glucose (Glucose 40% Gel) 15-30 GRAMS 15 GRAMS... UD PRN PO 10/31/17 08:15 11/30/17 08:14 Glucose (Glucose Chew Tab) 4-8 Tablets 4 Tabl... UD PRN PO 10/31/17 08:15 11/30/17 08:14 Dextrose (Dextrose 50% 50ML Syringe) 25-50ML OF 50% DW IV FOR... UD PRN IV 10/31/17 08:15 11/30/17 08:14 Glucagon (Glucagon Inj) 1 mg UD PRN SQ 10/31/17 08:15 11/30/17 08:14 Miscellaneous Information (Consult Glycemic Management Pharmacy) 1 ea UD PRN N/A 11/01/17 20:12 12/01/17 20:11 Menthol (Nice Umberto) 1 umberto PRN PRN UMBERTO 11/02/17 01:15 12/02/17 01:14 11/02/17 01:12 1 UMBERTO Heparin Sodium (Porcine) (Heparin 10 Unit/ ml 5 ml Flush) 5 ml PRN PRN FLUSH 11/04/17 10:30 12/04/17 10:29 Albuterol/ Ipratropium (Duoneb) 3 ml Q3H PRN INH 11/06/17 09:00 12/06/17 08:59 11/11/17 23:29 3 ML Lidocaine (Lidoderm Patch 5%) 1 patch QAM TD 11/07/17 09:00 12/07/17 08:59 Miscellaneous (Remove Lidoderm Patch) 1 ea DAILY@21 N/A 11/06/17 21:00 12/06/17 20:59 Bumetanide (Bumex Tab) 1 mg BID17 PO 11/09/17 17:00 12/09/17 16:59 11/12/17 08:05 1 MG Ipratropium [place] (Atrovent 0.02% 0.5MG/2.5ML Neb) 0.5 mg Q6R INH 11/11/17 21:00 12/11/17 20:59 11/12/17 14:05 0.5 MG Levalbuterol (Xopenex 0.63 Mg/ 3 Ml Neb) 0.63 mg Q6R INH 11/11/17 21:00 12/11/17 20:59 11/12/17 14:05 0.63 MG Insulin Glargine (Lantus Solostar Pen) 12 units QAM SC 11/12/17 09:00 12/12/17 08:59 Objective Vital Signs Date Time Temp Pulse Resp B/P (MAP) Pulse Ox O2 Delivery O2 Flow Rate FiO2 11/12/17 14:07 110 16 87 Mask 4.0 11/12/17 12:00 94 Oxymask 5.0 11/12/17 09:50 94 Oxymask 5.0 11/12/17 09:05 82 Oxymask 2.0 11/12/17 08:45 85 Oxymask 3.0 11/12/17 08:15 92 Oxymask 4.0 11/12/17 08:00 92 Oxymask 4.0 11/12/17 07:36 109 20 110/72 (85) 11/12/17 07:00 102 16 95 Mask 5.0 11/12/17 04:00 96 Nasal Cannula 5.0 11/12/17 04:00 36.3 106 20 110/70 (83) 92 Non-Rebreather 2.0 11/12/17 00:00 96 Nasal Cannula 5.0 11/11/17 23:29 94 20 90 Mask 5.0 11/11/17 22:15 93 Oxymask 4.0 11/11/17 20:34 36.4 115 26 110/69 (83) 94 Oxymask 6.0 11/11/17 20:00 93 Nasal Cannula 6.0 11/11/17 19:46 105 20 94 Mask 6.0 11/11/17 16:00 95 Nasal Cannula 7.0 11/11/17 15:38 108 20 103/59 (74) 95 Oxymask 7.0 Physical Exam General Appearance: WD/WN, no apparent distress, + obese Eyes: normal inspection, EOMI, sclerae normal ENT: normal ENT inspection, hearing grossly normal, pharynx normal Neck: supple, no adenopathy, thyroid normal, trachea midline Respiratory/Chest: chest non-tender, no respiratory distress, no accessory muscle use, + rales Cardiovascular: regular rate, rhythm, no gallop, no murmur Abdomen: normal bowel sounds, non tender, soft, no organomegaly Extremities: non-tender, no calf tenderness, + swelling Skin: normal color, no rash, + pertinent finding (Sacral decubitus with foul odor) Lymphatic: no adenopathy Laboratory Results Last 24 Hours Test 11/11/17 16:25 11/12/17 07:30 11/12/17 08:11 11/12/17 11:42 Bedside Glucose 200 mg/dl 208 mg/dl 203 mg/dl Sodium Level 138 mmol/L Potassium Level 4.2 mmol/L Chloride Level 101 mmol/L Carbon Dioxide Level 32 mmol/L Anion Gap 5.0 mmol/L Blood Urea Nitrogen 38 mg/dl Creatinine 1.01 mg/dl Est Creatinine Clear Calc Drug Dose 80.6 ml/min Estimated GFR () 70.6 Estimated GFR (Non- 60.9 BUN/Creatinine Ratio 37.7 Random Glucose 212 mg/dl Calcium Level 9.0 mg/dl Patient Name: LOC PADILLA Unit Number: [id number] Dictated: 11/09/17913 Transcribed: 11/09/17913 MS Printed Date/Time: [~ rep prt dt]/[~ rep prt tm] [~ rep ct labl] - [~ rep ct ivnm] [facility] [place] [address] Dictated: 11/09/17913 Transcribed: 11/09/17913 MS Printed Date/Time: [~ rep prt dt]/[~ rep prt tm] [~ rep ct labl] - [~ rep ct ivnm] [facility] PORTABLE CLINICAL HISTORY: persistent hypoxia dyspnea COMPARISON STUDY: 10/31/2017 FINDINGS: Unchanged cardiomegaly. Prominent pulmonary vasculature mildly improved in the prior exam. Diaphragms smooth. Mild chronic elevation right hemidiaphragm. IMPRESSION: Stable cardiomegaly. Improved prominence of pulmonary vasculature. The above report was generated using voice recognition software. It may contain grammatical, syntax or spelling errors. Electronically signed by: Parminder Pineda M.D. 11/09/2017 9:15 AM Dictated Date/Time: 11/09/2017 9:14 AM The status of this report is Signed. Draft = Not yet reviewed or approved by Radiologist. Signed = Reviewed and approved by Radiologist. <AttendingPhy>Kaiden Syed M.D.</AttendingPhy> <FamilyPhy>[employer]</FamilyPhy> <PrimaryPhy>[facility]earths[facility]oë moralesy</PrimaryPhy> <UnitNumber> [id number]</UnitNumber> <VisitNumber>[id number]</VisitNumber> <PatientName> LOC PADILLA</PatientName> <DateOfBirth>1960</DateOfBirth> < Location>[facility]</Location> <ServiceDate>10/31/17</ServiceDate> <MNE>ESINDI</MNE > <OrderingPhy>Kaiden Syed M.D.</OrderingPhy> <OrderingPhyMNE>f rep ord dr arias</OrderingPhyMNE> <DictatingPhyMNE>f rep dict dr arias</DictatingPhyMNE> < CCListMNE>f rep ct mne</CCListMNE> <AdmittingPhyMNE>f pt admit dr arias</ AdmittingPhyMNE> <AttendingPhyMNE>f pt attend dr arias</AttendingPhyMNE> <ConsultingPhyMNE>f pt consult dr arias</ConsultingPhyMNE> <FamilyPhyMNE>f pt fam dr arias</FamilyPhyMNE> <OtherPhyMNE>f pt other dr arias</OtherPhyMNE> < PrimaryPhyMNE>f pt prim care dr arias</PrimaryPhyMNE> <ReferringPhyMNE>f pt referring dr arias</ReferringPhyMNE> Assessment and Plan Pneumonia versus worsening heart failure, appears to be slowly improving. Has asymptomatic bacteriuria, treatment being held. Lower extremity in and sacral wounds appear to be slowly improving, will continue to follow.
[2017-11-12] MEDS: DOCUSATE SODIUM 100 MG CAP PO SCH (21:12)
--- NOTE | 2017-11-12 21:58 | Progress Note ---
Subjective Date of Service: Nov 12, 2017. Subjective Pt evaluation today including: conversation w/ patient 57 yo female reports that she would like to see her supervisor [employer] again. Patient reports she is requiring less oxygen today. Patient denies any cough today. Patient though states she has not been out of bed. She states that she would use the BIPAP machine but that it is not available at her longterm. Problem List Medical Problems: (1) Acute renal disease Status: Acute (2) Acute renal failure Status: Acute (3) ELIZABETH (acute kidney injury) Status: Acute (4) ELIZABETH (acute kidney injury) Status: Acute (5) Anemia Status: Acute (6) Cellulitis Status: Acute (7) Cellulitis of both lower extremities Status: Acute (8) CHF (congestive heart failure) Status: Acute (9) CHF (congestive heart failure) Status: Acute (10) Dehydration Status: Acute (11) Fluid overload Status: Acute (12) Hypoxia Status: Acute (13) Pickwickian syndrome Status: Acute (14) Pneumonia Status: Acute (15) Respiratory failure Status: Acute (16) Sacral decubitus ulcer, stage III Status: Acute (17) UTI (urinary tract infection) Status: Acute (18) UTI (urinary tract infection) due to urinary indwelling Lerner catheter Status: Acute Review of Systems Constitutional: No fever, No chills Eyes: No worsening of vision ENT: No hearing loss Respiratory: No cough Cardiac: No chest pain Abdomen: No pain Musculoskeletal: No joint pain Neurologic: No memory loss Psychiatric: No depression symptoms Heme: No abnormal bleeding/bruising Endo: No fatigue Skin: No rash All Other Systems: Reviewed and Negative Medications Current Inpatient Medications Medications (Trade) Dose Ordered Sig/Bruno Route Start Time Stop Time Status Last Admin Dose Admin Heparin Sodium (Porcine) (Heparin Sq 5000 Unit/0.5ml) 5,000 unit Q8 SQ 10/31/17 14:00 11/30/17 13:59 Acetaminophen (Tylenol Tab) 650 mg Q4H PRN PO 10/31/17 07:00 11/30/17 06:59 Al Hydrox/Mg Hydrox/Simethicone (Maalox Max Susp) 15 ml Q4H PRN PO 10/31/17 07:00 11/30/17 06:59 11/03/17 23:49 15 ML Magnesium Hydroxide (Milk Of Magnesia Susp) 30 ml Q12H PRN PO 10/31/17 07:00 11/30/17 06:59 Ondansetron HCl (Zofran Inj) 4 mg Q6H PRN IV 10/31/17 07:00 11/30/17 06:59 11/03/17 00:12 4 MG Morphine Sulfate (MoRPHine SULFATE INJ) 2 mg Q30M PRN IV 10/31/17 07:00 11/14/17 06:59 11/03/17 23:42 2 MG Polyethylene (Miralax Powder Packet) 17 gm DAILY PRN PO 10/31/17 07:00 11/30/17 06:59 Allopurinol (Zyloprim Tab) 200 mg DAILY PO 10/31/17 09:00 11/30/17 08:59 Docusate Sodium (coLACE CAP) 100 mg HS PO 10/31/17 21:00 11/30/17 20:59 11/12/17 21:12 100 MG Multi-Ingredient Ointment (Eucerin Unscented Cr) 1 appln BID EXT 10/31/17 09:00 11/30/17 08:59 11/12/17 21:06 1 APPLN Heparin Sodium (Porcine) (Heparin 100 Unit/ml 5ml Flush) 5 ml BID FLUSH 10/31/17 09:00 11/30/17 08:59 11/12/17 21:12 5 ML Metolazone (Zaroxolyn Tab) 5 mg DAILY PO 10/31/17 09:00 11/30/17 08:59 Miconazole Nitrate (Desenex Powder) 1 appln BID EXT 10/31/17 09:00 11/30/17 08:59 11/12/17 21:06 1 APPLN Oxycodone HCl (Roxicodone Immediate Rel Tab) 5 mg Q6H PRN PO 10/31/17 07:00 11/14/17 06:59 11/11/17 22:15 5 MG Potassium Chloride (Klor-Con M10) 10 meq DAILY PO 10/31/17 09:00 11/30/17 08:59 Spironolactone (Aldactone Tab) 25 mg DAILY PO 10/31/17 09:00 11/30/17 08:59 Insulin Aspart (novoLOG ASPART) SLIDING SCALE G... ACHS SC 10/31/17 11:00 11/30/17 10:59 Future hold 11/12/17 17:24 4 UNITS Albuterol Sulfate (Ventolin 0.083% 2.5MG/3ML Neb) 2.5 mg Q4H PRN INH 10/31/17 07:15 11/30/17 07:14 Glucose (Glucose 40% Gel) 15-30 GRAMS 15 GRAMS... UD PRN PO 10/31/17 08:15 11/30/17 08:14 Glucose (Glucose Chew Tab) 4-8 Tablets 4 Tabl... UD PRN PO 10/31/17 08:15 11/30/17 08:14 Dextrose (Dextrose 50% 50ML Syringe) 25-50ML OF 50% DW IV FOR... UD PRN IV 10/31/17 08:15 11/30/17 08:14 Glucagon (Glucagon Inj) 1 mg UD PRN SQ 10/31/17 08:15 11/30/17 08:14 Miscellaneous Information (Consult Glycemic Management Pharmacy) 1 ea UD PRN N/A 11/01/17 20:12 12/01/17 20:11 Menthol (Nice Umberto) 1 umberto PRN PRN UMBERTO 11/02/17 01:15 12/02/17 01:14 11/02/17 01:12 1 UMBERTO Heparin Sodium (Porcine) (Heparin 10 Unit/ ml 5 ml Flush) 5 ml PRN PRN FLUSH 11/04/17 10:30 12/04/17 10:29 11/12/17 21:07 5 ML Albuterol/ Ipratropium (Duoneb) 3 ml Q3H PRN INH 11/06/17 09:00 12/06/17 08:59 11/11/17 23:29 3 ML Lidocaine (Lidoderm Patch 5%) 1 patch QAM TD 11/07/17 09:00 12/07/17 08:59 Miscellaneous (Remove Lidoderm Patch) 1 ea DAILY@21 N/A 11/06/17 21:00 12/06/17 20:59 Bumetanide (Bumex Tab) 1 mg BID17 PO 11/09/17 17:00 12/09/17 16:59 11/12/17 17:28 1 MG Ipratropium [place] (Atrovent 0.02% 0.5MG/2.5ML Neb) 0.5 mg Q6R INH 11/11/17 21:00 12/11/17 20:59 11/12/17 14:05 0.5 MG Levalbuterol (Xopenex 0.63 Mg/ 3 Ml Neb) 0.63 mg Q6R INH 11/11/17 21:00 12/11/17 20:59 11/12/17 14:05 0.63 MG Insulin Glargine (Lantus Solostar Pen) 12 units QAM SC 11/12/17 09:00 12/12/17 08:59 Objective Vital Signs Date Time Temp Pulse Resp B/P (MAP) Pulse Ox O2 Delivery O2 Flow Rate FiO2 11/12/17 20:49 36.8 99 22 91/52 (65) 91 Oxymask 5.0 11/12/17 16:09 37.0 108 20 105/68 (80) 91 Oxymask 5.0 11/12/17 16:00 Oxymask 5.0 11/12/17 14:07 110 16 87 Mask 4.0 11/12/17 12:00 94 Oxymask 5.0 11/12/17 09:50 94 Oxymask 5.0 11/12/17 09:05 82 Oxymask 2.0 11/12/17 08:45 85 Oxymask 3.0 11/12/17 08:15 92 Oxymask 4.0 11/12/17 08:00 92 Oxymask 4.0 11/12/17 07:36 109 20 110/72 (85) 11/12/17 07:00 102 16 95 Mask 5.0 11/12/17 04:00 96 Nasal Cannula 5.0 11/12/17 04:00 36.3 106 20 110/70 (83) 92 Non-Rebreather 2.0 11/12/17 00:00 96 Nasal Cannula 5.0 11/11/17 23:29 94 20 90 Mask 5.0 11/11/17 22:15 93 Oxymask 4.0 Physical Exam Comments: General Appearance: WD/WN, no apparent distress, + obese Head: normocephalic, atraumatic Eyes: normal inspection, EOMI, sclerae normal ENT: normal ENT inspection, hearing grossly normal, pharynx normal Neck: supple, no adenopathy, thyroid normal, trachea midline Respiratory/Chest: mild rhonchi anteriorly Cardiovascular: regular rate, rhythm, no gallop, no murmur Abdomen/GI: normal bowel sounds, non tender, soft, no organomegaly Extremities/Musculoskelatal: no calf tenderness, normal capillary refill, + swelling Neurologic/Psych: alert, oriented x 3 Skin: normal color, no rash, Lymphatic: no adenopathy Laboratory Results Last 24 Hours Test 11/12/17 07:30 11/12/17 08:11 11/12/17 11:42 11/12/17 16:40 Bedside Glucose 208 mg/dl 203 mg/dl 194 mg/dl Sodium Level 138 mmol/L Potassium Level 4.2 mmol/L Chloride Level 101 mmol/L Carbon Dioxide Level 32 mmol/L Anion Gap 5.0 mmol/L Blood Urea Nitrogen 38 mg/dl Creatinine 1.01 mg/dl Est Creatinine Clear Calc Drug Dose 80.6 ml/min Estimated GFR () 70.6 Estimated GFR (Non- 60.9 BUN/Creatinine Ratio 37.7 Random Glucose 212 mg/dl Calcium Level 9.0 mg/dl Assessment and Plan 57-year-old female with past medical history of morbid obesity, chronic respiratory failure on home oxygen, chronic kidney disease stage III, chronic diastolic congestive heart failure, gout, diabetes mellitus type 2 with bilateral lower extremity diabetic foot ulcers, presented to the hospital with left lower lobe pneumonia Acute on chronic hypoxic respiratory failure secondary to Left lower lobe pneumonia/community-acquired, patient remains hypoxemic this likely is related to her obesity hypoventilation syndrome, will try to titrate down her oxygen. Patient has decreased to about 5 liters oxymask, this is from 7 liters yesterday. Pulmonary on case. Patient likely is back to baseline. Will need to improve compliance with BIPAP machine. Patient reports she is unsure if BIPAP is set up at her home. Patient also reports she prefers rodriguez mask. Chronic Diastolic congestive heart failure Patient is back to [facility]. Creatinine has been stable. Pt had a short run of atrial tachycardia, self resolved, will follow on monitor , in past has been with ivc filter and was on xarelto in the past, now on sc heparin, she has had ectopic atrial tachycardia in the past few years seen in consult by [facility] cardiology Obesity hypoventilation syndrome Was able to ask patient to try BIPAP again this evening. will reassess tomorrow if patient was compliant COPD without exacerbation her oxygen need may be evolution of her chronic lung disease now may be more oxygen requiring this maybe her lung disease progressing Was able to titrate oxygen requirement to 5 liters today Acute on chronic hyponatremia, resolved and have loosen volume restriction 11/09 will continue to monitor Bilateral lower extremity ulcers pt has daily dressing changes and slow improvement in wounds Diabetes mellitus type 2 has acceptable control on basal bolus insulin. ordered basal insulin today Asymptomatic bacteriuria, Urine is colonized with carbapenem and resistant klebsiella pneumonia Morbid obesity to strictly impacts her care both with her immobility wound care and breathing Continue on lactobacillus to prevent C. difficile no persistent diarrhea at this time DVT prophylaxis/heparin subcutaneous Spent 45 minutes in the management of this patient. Continued [facility] stay due to: multiple IV medications needed, other Discharge planning: uncertain
[2017-11-13] VITALS (7 sets, daily range): BP systolic 93–130; BP diastolic 44–85; PULSE 55–110; TEMP 35.6–36.7; O2SAT 89–93
[2017-11-13] MEDS: OXYCODONE HCL IR 5 MG TAB (IMMEDIATE RELEASE) PO PRN
[2017-11-13] MEDS: IPRATROPIUM BROMIDE NEB SOLN 0.02% 2.5 ML VIAL INH SCH ×4 (01:20→21:00)
[2017-11-13] MEDS: LEVALBUTEROL 0.63MG/3 ML NEB INH SCH ×4 (01:20→21:00)
[2017-11-13] MEDS: HEPARIN SOD 5000 UNIT/0.5 ML CARP SQ SCH ×3 (06:00→22:00)
[2017-11-13 07:07] LABS: CALCIUM 8.7 mg/dl (8.5-10.1); CREATININE 1.13 mg/dl (0.60-1.20); POTASSIUM 4.4 mmol/L (3.5-5.1)
[2017-11-13] MEDS: EUCERIN CR 120 GM JAR EXT SCH ×2 (08:13→21:00)
[2017-11-13] MEDS: MICONAZOLE NITRATE POWDER 43 GM EXT SCH ×2 (08:13→21:00)
[2017-11-13] MEDS: SPIRONOLACTONE 25 MG TAB PO SCH (08:13)
[2017-11-13] MEDS: POTASSIUM CHLORIDE 10 MEQ TABCR PO SCH (08:13)
[2017-11-13] MEDS: LIDODERM (LIDOCAINE) PATCH 5% TD SCH (08:14)
[2017-11-13] MEDS: METOLAZONE 5 MG TAB PO SCH (08:14)
[2017-11-13] MEDS: ALLOPURINOL 100 MG TAB PO SCH (08:14)
[2017-11-13] MEDS: BUMETANIDE 1 MG TAB PO SCH ×2 (08:16→16:11)
[2017-11-13] MEDS: INSULIN ASPART 100 UNITS/ML 3 ML PEN SC SCH ×4 (08:23→21:00)
[2017-11-13] MEDS: INSULIN GLARGINE SOLOSTAR 100 UNITS/ML 3 ML PEN SC SCH (08:24)
[2017-11-13] MEDS: ALBUT/IPRATROP 3MG/0.5MG NEB 3 ML VIAL INH PRN (10:58)
--- NOTE | 2017-11-13 12:08 | PULMONARY PROGRESS NOTE ---
DATE: 11/13/2017 TIME: 11:50 a.m. SUBJECTIVE: The patient reportedly wore BiPAP for about 2 hours last night. She says she wants to wear but our mask is uncomfortable. She is bothered by the piece that goes up to the forehead. She states that the people at [facility] now have a mask that would be acceptable to her, but they refused to bring it over. I do not know if that is confirmed or not. I am pleased that she at least tried it for couple of hours. Her breathing is overall about the same. She is complaining of having yeast infection in the vagina and she is requesting an antifungal agent for that. I will defer that to the hospitalist team. She continues to have a cough. I believe some of this is because she is always lying down and with only modest elevation. OBJECTIVE: GENERAL: The patient did not appear in distress. VITAL SIGNS: Temperature 36.7. EARS, NOSE, THROAT: Exam is unchanged. HEART: Heart rate is elevated at 112 per minute. Each of the days I have seen her, her heart rates have been something like this. She also has PVCs. LUNGS: Auscultation of the lung cassidy revealed scattered rhonchi. Respiratory rate is 16. Saturation is 93% on 5 liters. Yesterday on 4 liters, she had gone down into the 80s. ABDOMEN: Remains obese. EXTREMITIES: Again, show modest edema which is unchanged and greater on the right than the left. LABORATORY DATA: Electrolytes show sodium 136, potassium 4.4, chloride 100, and bicarbonate 31. BUN was 40 with a creatinine of 1.13. IMPRESSIONS: 1. Bilateral pneumonia -- clinically improved. 2. Chronic obstructive pulmonary disease with exacerbation. 3. Obstructive sleep apnea. 4. Obesity. RECOMMENDATIONS: The patient persists with a tachycardia. I do not know the exact reasons for that. She has had frequent PVCs. I do not know if she has had a cardiac evaluation at any time. We will defer this to the hospitalist to decide. Respiratory faustin, she is about as stable as she is going to be. She is taking the nebulizer treatments and she does ask for them at time, so I assume that it seems to be helping from her perspective. She claims that [facility] and has a BiPAP mask that she would wear. I do not know if it is feasible for care management to verify if they have something and see if anyone could bring it over for her.
[2017-11-13] MEDS ORDERED: CLOTRIMAZOLE 1% CR 15 GM TUBE EXT PRN (14:45)
[2017-11-13] MEDS ORDERED: FLUCONAZOLE 100 MG TAB PO SCH (15:30)
[2017-11-13] MEDS: DOCUSATE SODIUM 100 MG CAP PO SCH (21:00)
[2017-11-14] VITALS: BP 105/62; PULSE 107; TEMP 36.6; O2SAT 92
[2017-11-14] MEDS: OXYCODONE HCL IR 5 MG TAB (IMMEDIATE RELEASE) PO PRN (00:04)
[2017-11-14] MEDS: LEVALBUTEROL 0.63MG/3 ML NEB INH SCH ×3 (01:36→14:16)
[2017-11-14] MEDS: IPRATROPIUM BROMIDE NEB SOLN 0.02% 2.5 ML VIAL INH SCH ×3 (01:36→14:16)
[2017-11-14] MEDS: HEPARIN SOD 5000 UNIT/0.5 ML CARP SQ SCH ×2 (05:32→13:01)
[2017-11-14 06:38] LABS: CALCIUM 8.9 mg/dl (8.5-10.1); CREATININE 1.23 mg/dl (0.60-1.20); POTASSIUM 4.7 mmol/L (3.5-5.1)
[2017-11-14 07:10] VITALS: BP 105/63; PULSE 66; TEMP 36.6; O2SAT 97
[2017-11-14 07:14] VITALS: PULSE 97; O2SAT 93
[2017-11-14] MEDS: BUMETANIDE 1 MG TAB PO SCH (08:08)
[2017-11-14] MEDS: INSULIN GLARGINE SOLOSTAR 100 UNITS/ML 3 ML PEN SC SCH (08:12)
[2017-11-14] MEDS: INSULIN ASPART 100 UNITS/ML 3 ML PEN SC SCH ×2 (08:12→12:21)
[2017-11-14] MEDS: MICONAZOLE NITRATE POWDER 43 GM EXT SCH (08:23)
[2017-11-14] MEDS: EUCERIN CR 120 GM JAR EXT SCH (08:23)
[2017-11-14] MEDS: SPIRONOLACTONE 25 MG TAB PO SCH (08:24)
[2017-11-14] MEDS: POTASSIUM CHLORIDE 10 MEQ TABCR PO SCH (08:24)
[2017-11-14] MEDS: METOLAZONE 5 MG TAB PO SCH (08:24)
[2017-11-14] MEDS: ALLOPURINOL 100 MG TAB PO SCH (08:24)
[2017-11-14] MEDS: LIDODERM (LIDOCAINE) PATCH 5% TD SCH (08:24)
--- NOTE | 2017-11-14 08:47 | Progress Note ---
Subjective Date of Service: Nov 13, 2017. Subjective Late entry due to system being down. Problem List Medical Problems: (1) Acute renal disease Status: Acute (2) Acute renal failure Status: Acute (3) ELIZABETH (acute kidney injury) Status: Acute (4) ELIZABETH (acute kidney injury) Status: Acute (5) Anemia Status: Acute (6) Cellulitis Status: Acute (7) Cellulitis of both lower extremities Status: Acute (8) CHF (congestive heart failure) Status: Acute (9) CHF (congestive heart failure) Status: Acute (10) Dehydration Status: Acute (11) Fluid overload Status: Acute (12) Hypoxia Status: Acute (13) Pickwickian syndrome Status: Acute (14) Pneumonia Status: Acute (15) Respiratory failure Status: Acute (16) Sacral decubitus ulcer, stage III Status: Acute (17) UTI (urinary tract infection) Status: Acute (18) UTI (urinary tract infection) due to urinary indwelling Lerner catheter Status: Acute Objective Vital Signs Date Time Temp Pulse Resp B/P (MAP) Pulse Ox O2 Delivery O2 Flow Rate FiO2 11/14/17 08:00 Oxymask 5.0 11/14/17 07:14 97 18 93 Mask 5.0 11/14/17 07:10 36.6 66 16 105/63 (77) 97 Oxymask 6.0 11/14/17 00:00 36.6 107 22 105/62 (76) 92 Oxymask 5.0 11/14/17 00:00 Oxymask 5.0 11/13/17 16:23 35.6 110 20 130/85 (100) 93 5.0 11/13/17 16:00 Mask 5.0 11/13/17 14:14 103 15 89 Mask 5.0 11/13/17 12:00 Mask 5.0 11/13/17 11:00 103 15 93 Mask 5.0 11/13/17 09:42 36.7 55 18 93/44 (60) 92 Nasal Cannula 5.0 Laboratory Results Last 24 Hours Test 11/13/17 11:32 11/13/17 16:46 11/14/17 05:24 11/14/17 07:30 Bedside Glucose 183 mg/dl 176 mg/dl 162 mg/dl Sodium Level 135 mmol/L Potassium Level 4.7 mmol/L Chloride Level 98 mmol/L Carbon Dioxide Level 32 mmol/L Anion Gap 5.0 mmol/L Blood Urea Nitrogen 41 mg/dl Creatinine 1.23 mg/dl Est Creatinine Clear Calc Drug Dose 66.2 ml/min Estimated GFR () 55.6 Estimated GFR (Non- 48.0 BUN/Creatinine Ratio 33.0 Random Glucose 181 mg/dl Calcium Level 8.9 mg/dl Assessment and Plan 57-year-old female with past medical history of morbid obesity, chronic respiratory failure on home oxygen, chronic kidney disease stage III, chronic diastolic congestive heart failure, gout, diabetes mellitus type 2 with bilateral lower extremity diabetic foot ulcers, presented to the hospital with left lower lobe pneumonia Acute on chronic hypoxic respiratory failure secondary to Left lower lobe pneumonia/community-acquired, patient remains hypoxemic this likely is related to her obesity hypoventilation syndrome, will try to titrate down her oxygen. Patient has decreased to about 5 liters oxymask, this is from 7 liters yesterday. Pulmonary on case. Patient likely is back to baseline. Will need to improve compliance with BIPAP machine. Patient reports she is unsure if BIPAP is set up at her home. Patient also reports she prefers rodriguez mask. Chronic Diastolic congestive heart failure Patient is back to [facility]. Creatinine has been stable. Pt had a short run of atrial tachycardia, self resolved, will follow on monitor , in past has been with ivc filter and was on xarelto in the past, now on sc heparin, she has had ectopic atrial tachycardia in the past few years seen in consult by [facility] cardiology Obesity hypoventilation syndrome Was able to ask patient to try BIPAP again this evening. will reassess tomorrow if patient was compliant COPD without exacerbation her oxygen need may be evolution of her chronic lung disease now may be more oxygen requiring this maybe her lung disease progressing Was able to titrate oxygen requirement to 5 liters today Acute on chronic hyponatremia, resolved and have loosen volume restriction 11/09 will continue to monitor Bilateral lower extremity ulcers pt has daily dressing changes and slow improvement in wounds Diabetes mellitus type 2 has acceptable control on basal bolus insulin. ordered basal insulin today Asymptomatic bacteriuria, Urine is colonized with carbapenem and resistant klebsiella pneumonia Morbid obesity to strictly impacts her care both with her immobility wound care and breathing Continue on lactobacillus to prevent C. difficile no persistent diarrhea at this time DVT prophylaxis/heparin subcutaneous Spent 45 minutes in the management of this patient. Continued [facility] stay due to: multiple IV medications needed, other Discharge planning: uncertain
--- NOTE | 2017-11-14 13:38 | Discharge Instructions ---
Discharge Instructions Date of Service Nov 14, 2017. Admission Reason for Admission: Hypoxia, Pneumonia Discharge Discharge Diagnosis / Problem: Pneumonia Discharge Goals Goal(s): Decrease discomfort, Improve function Activity Recommendations Activity Limitations: as noted below Lifting Limitations: gradually increase as tolerated . Instructions / Follow-Up Instructions / Follow-Up Follow up with Nephrology in 1 week. Recheck BMP at appointment. Followup with PCP in 1-2 weeks Followup with Pulmonary in 1-2 weeks Followup with Cardiology in 1-2 weeks Current Hospital Diet Patient's current hospital diet: AHA Diet (Heart Healthy), Diabetes Type 2 Diet Discharge Diet Recommended Diet: AHA Diet (Heart Healthy), Diabetes Type 2 Diet Pending Studies Studies pending at discharge: no Laboratory Results Hemoglobin A1c Test 10/08/17 03:45 Range/Units Estimated Average Glucose 177 mg/dl Hemoglobin A1c 7.8 H 4.5-5.6 % Medical Emergencies . Who to Call and When: Medical Emergencies: If at any time you feel your situation is an emergency, please call 911 immediately. . Non-Emergent Contact Non-Emergency issues call your: Primary Care Provider Call Non-Emergent contact if: you have any medication questions . . "Provider Documentation" section prepared by Dieudonne Mora. .
--- NOTE | 2017-11-14 13:43 | Discharge Summary ---
Discharge Summary Date of Service Nov 14, 2017. Discharge Summary Admission Date: Oct 31, 2017 at 07:05 Discharge Date: Nov 08, 2017 Hospital Course 57-year-old female with past medical history of morbid obesity, chronic respiratory failure on home oxygen, chronic kidney disease stage III, chronic diastolic congestive heart failure, gout, diabetes mellitus type 2 with bilateral lower extremity diabetic foot ulcers, presented to the hospital with left lower lobe pneumonia Acute on chronic hypoxic respiratory failure secondary to Left lower lobe pneumonia/community-acquired, patient remains hypoxemic this likely is related to her obesity hypoventilation syndrome, will try to titrate down her oxygen. Patient has decreased to about 5 liters oxymask, this is from 7 liters yesterday. Pulmonary on case. Patient likely is back to baseline. Will need to improve compliance with BIPAP machine. Patient reports she is unsure if BIPAP is set up at her home. Patient also reports she prefers rodriguez mask. Chronic Diastolic congestive heart failure Patient is back to [facility]. Creatinine has been stable. Pt had a short run of atrial tachycardia, self resolved, will follow on monitor , in past has been with ivc filter and was on xarelto in the past, now on sc heparin, she has had ectopic atrial tachycardia in the past few years seen in consult by [facility] cardiology Obesity hypoventilation syndrome Was able to ask patient to try BIPAP again this evening. will reassess tomorrow if patient was compliant COPD without exacerbation her oxygen need may be evolution of her chronic lung disease now may be more oxygen requiring this maybe her lung disease progressing Was able to titrate oxygen requirement to 5 liters today Acute on chronic hyponatremia, resolved and have loosen volume restriction 11/09 will continue to monitor Bilateral lower extremity ulcers pt has daily dressing changes and slow improvement in wounds Diabetes mellitus type 2 has acceptable control on basal bolus insulin. ordered basal insulin today Asymptomatic bacteriuria, Urine is colonized with carbapenem and resistant klebsiella pneumonia Morbid obesity to strictly impacts her care both with her immobility wound care and breathing Continue on lactobacillus to prevent C. difficile no persistent diarrhea at this time DVT prophylaxis/heparin subcutaneous Spent 45 minutes in the management of this patient. This includes examination of the patient, discharge planning, medication reconciliation, and communication with other providers. Discharge Instructions Please refer to the electronic Patient Visit Report (Discharge Instructions) for additional information.
[2017-11-14 13:46] VITALS: BP 105/63; PULSE 97; TEMP 36.6; O2SAT 93
[2017-11-14 14:18] VITALS: PULSE 59; O2SAT 90
== END 2017-11-14 15:49 | DRG 193 ==
LOC: EDBD 03:59 → C.EDA 04:00 → C.EDINP 07:05 → EDBEDREQ 09:27 → CANRESERV 11-01 10:24 → ENRESERV 11-01 10:24 → C.2T 11-01 15:32 → ENRESERV 11-03 15:13 → C.MS2W 11-03 16:01 → CMPBEDREQ 11-04 13:40 → C.MS2W 11-04 14:48
PROVIDERS: ADMIT Internal Medicine; ATTEND Internal Medicine
DX: J18.9 Pneumonia, unspecified organism (principal); J96.21 Acute and chronic respiratory failure with hypoxia; T83.511A Infection and inflammatory reaction due to indwelling urethral catheter, initial encounter; L89.154 Pressure ulcer of sacral region, stage 4; I50.32 Chronic diastolic (congestive) heart failure; Z86.14 Personal history of Methicillin resistant Staphylococcus aureus infection; E66.2 Morbid (severe) obesity with alveolar hypoventilation; E87.1 Hypo-osmolality and hyponatremia; Z88.8 Allergy status to other drugs, medicaments and biological substances; Z88.1 Allergy status to other antibiotic agents; Z88.0 Allergy status to penicillin; Y84.6 Urinary catheterization as the cause of abnormal reaction of the patient, or of later complication, without mention of misadventure at the time of the procedure; Y92.129 Unspecified place in nursing home as the place of occurrence of the external cause; R91.1 Solitary pulmonary nodule; J44.9 Chronic obstructive pulmonary disease, unspecified; N18.9 Chronic kidney disease, unspecified; D50.9 Iron deficiency anemia, unspecified; L98.499 Non-pressure chronic ulcer of skin of other sites with unspecified severity; I50.810 Right heart failure, unspecified

== ENCOUNTER → 2017-11-22 | Outpatient (CLI) | payer OTHER ==
[~2017-11-22] MED LIST changes: +ACET-1311 PO; -ALL100 PO; -AMR2 PO; +BISA10SU3 PR; +BUSP-8 PO; +CLOT1CRE80 TOP; -CLOTRIMAZOLE 45 GM TOP; +DOCU-94 PO; -DOXY100T PO; -ECRCR EXT; +GLIM2TAB2 PO; +GUAI100S16 PO; +HEPA10IN13 IVF; +HPRF5 IV; +IMIP1INJ5 PO; +INSDGIPEN SQ; +IPRASOL4 INH; +LDDP5 TD; +LTRCR30 TOP; +MCTP/85 TOP; +MOML PO; +MULT-513 PO; +NVLGI/PEN SQ; -NVLGIPEN SC; +OXYC-609 PO; +POTA10CA28 PO; +PROT1POW PO; +SKINCRE34 TOP; +TRAZ50TA35 PO; -ZOLP5TAB PO; +[UNRECOGNIZED DRUG - REMARK]
[2017-11-22 13:03] LABS: HEMATOCRIT 30.8 % (37-47); HEMOGLOBIN 9.2 g/dL (12.0-16.0); MEAN CORPUSCULAR HEMOGLOBIN 26.6 pg (25-34); MEAN CORPUSCULAR HGB CONC 29.9 g/dl (32-36); PLATELET COUNT 173 K/uL (130-400); RED CELL DISTRIBUTION WIDTH CV 20.7 % (11.5-14.5); RED CELL DISTRIBUTION WIDTH SD 66.4 fL (36.4-46.3); WHITE BLOOD COUNT 6.97 K/uL (4.8-10.8)
[2017-11-22 13:23] LABS: BASO % 0.3 %; BASO ABS # 0.02 K/uL (0-0.2); EOS % 2.2 %; EOS ABS # 0.15 K/uL (0-0.5); IG# 0.01 K/uL (0.00-0.02); LYMPH % 10.6 %; LYMPH ABS # 0.74 K/uL (1.2-3.4); MONO % 7.5 %; MONO ABS # 0.52 K/uL (0.11-0.59); NEUT % 79.3 %; NEUT ABS # 5.53 K/uL (1.4-6.5)
[2017-11-22 16:49] LABS: ALBUMIN 2.3 gm/dl (3.4-5.0); ALT/SGPT 7 U/L (12-78); BLOOD UREA NITROGEN 55 mg/dl (7-18); CALCIUM 8.5 mg/dl (8.5-10.1); CARBON DIOXIDE 30 mmol/L (21-32); CREATININE 1.99 mg/dl (0.60-1.20); GLUCOSE 156 mg/dl (70-99); SODIUM 137 mmol/L (136-145)
[2017-11-22 16:52] LABS: ALKALINE PHOSPHATASE 74 U/L (45-117); AST/SGOT 5 U/L (15-37); TOTAL PROTEIN 5.9 gm/dl (6.4-8.2)
[2017-11-23 07:46] LABS: HEMOGLOBIN A1C 7.8 % (4.5-5.6)
== END ==
LOC: C.LABUPNIT 12:38
PROVIDERS: ATTEND Nurse Practitioner Family
DX: N18.3 Chronic kidney disease, stage 3 (moderate) (principal); E08.59 Diabetes mellitus due to underlying condition with other circulatory complications; J18.9 Pneumonia, unspecified organism

== ENCOUNTER → 2017-11-27 | Outpatient (CLI) | payer OTHER ==
[~2017-11-27] MED LIST changes: -GUAI100S16 PO; +GUAI100S66 PO
[2017-11-27 08:46] LABS: HEMATOCRIT 33.5 % (37-47); HEMOGLOBIN 9.7 g/dL (12.0-16.0); MEAN CELL VOLUME 90.8 fL (80-100); MEAN CORPUSCULAR HEMOGLOBIN 26.3 pg (25-34); MEAN PLATELET VOLUME 10.5 fL (7.4-10.4); PLATELET COUNT 238 K/uL (130-400); RED CELL DISTRIBUTION WIDTH CV 21.1 % (11.5-14.5); RED CELL DISTRIBUTION WIDTH SD 70.5 fL (36.4-46.3); WHITE BLOOD COUNT 5.96 K/uL (4.8-10.8)
[2017-11-27 08:47] LABS: BLOOD UREA NITROGEN 60 mg/dl (7-18); CALCIUM 8.7 mg/dl (8.5-10.1); CARBON DIOXIDE 29 mmol/L (21-32); CREATININE 2.03 mg/dl (0.60-1.20); GLUCOSE 163 mg/dl (70-99); POTASSIUM 5.4 mmol/L (3.5-5.1); SODIUM 136 mmol/L (136-145)
[2017-11-27 09:09] LABS: BASO % 0.2 %; BASO ABS # 0.01 K/uL (0-0.2); EOS % 2.7 %; EOS ABS # 0.16 K/uL (0-0.5); IG# 0.02 K/uL (0.00-0.02); LYMPH % 15.1 %; MONO % 10.1 %; NEUT % 71.6 %; NEUT ABS # 4.27 K/uL (1.4-6.5)
== END ==
LOC: C.LABUPNIT 08:15
PROVIDERS: ATTEND Nurse Practitioner Family
DX: J18.8 Other pneumonia, unspecified organism (principal); I50.9 Heart failure, unspecified

== ENCOUNTER 2017-11-29 13:31 | Inpatient (IN) | payer OTHER ==
[~2017-11-29] VITALS: Ht 165.1 cm; Wt 133.0 kg
[~2017-11-29 13:31] MED LIST changes: -BISA10SU3 PR; -BUSP-8 PO; -GUAI100S66 PO; -HEPA10IN13 IVF; -IMIP1INJ5 PO; -INSDGIPEN SQ; -LTRCR30 TOP; -MOML PO; -MULT-513 PO; -OXYC-609 PO; -PROT1POW PO; -TRAZ50TA35 PO; -[UNRECOGNIZED DRUG - REMARK]
[2017-11-29] MEDS ORDERED: FUROSEMIDE 40 MG/4 ML VIAL IV STA (13:58)
--- NOTE | 2017-11-29 14:24 | EMERGENCY ROOM VISIT NOTE ---
History First contact with patient: 13:38 Chief Complaint: REFERRED BY DOCTOR Stated Complaint: WEIGHT GAIN History of Present Illness The patient is a 57 year old female who presents to the Emergency Room via ambulance from [facility] for reported 60 pound weight gain over the last month. The patient has a history of chronic kidney disease, CHF, chronic respiratory failure requiring 5-6 L of oxygen per nasal cannula at all times. The patient reports being on Lasix, Bumex and Aldactone. She has a chronic indwelling Lerner catheter. The patient does not think that the oral medications are diuresing her well enough. She has had increased shortness of breath. She also reports weight gain through her abdomen. No fevers or chills. She reports a mild cough. The patient currently has a PICC line and is being treated for left lower lobe pneumonia. She was admitted to the hospital approximately 1 month ago. She denies any chest pain or pressure. Review of Systems 10 system review performed and negative unless noted in HPI or below Past Medical/Surgical History Medical Problems: (1) Acute respiratory failure (2) CHF (congestive heart failure) (3) Chills (4) Femur fracture, left (5) Hyponatremia (6) Hypoxia (7) Leg swelling (8) Leg ulcer (9) Leukocytosis (10) MRSA (methicillin resistant Staphylococcus aureus) infection (11) MRSA lower extremity wounds (12) Pneumonia (13) Sacral decubitus ulcer, stage IV Family History No pertinent family history Social History Smoking Status: Unknown if Ever Smoked Drug Use: none Marital Status: single, [facility] Status: [facility] Occupation Status: disabled Current/Historical Medications Scheduled Bisacodyl (Dulcolax), 1 SUPP [place] PRN UD Bumetanide (Bumex), 1 TAB PO TID Bumetanide (Bumex), 2 MG PO UD Docusate Sodium (Colace), 1 CAP PO HS Ergocalciferol (Vitamin D 22436 Unit), 1 TAB PO WK Fluconazole (Diflucan), 100 MG PO Q2D Glimepiride (Glimepiride), 3 TAB PO DAILY Guaifenesin (Guaifenesin), 10 ML PO QID Heparin Sodium (Porcine) Lock (Heparin Lock Flush), 5 ML IVF BID Imipenem-Cilastatin (Primaxin Iv), 300 MG PO Q6 Insulin Aspart (Novolog Flexpen), UNITS SQ ACHS Insulin Glargine (Lantus Solostar), 10 UNITS SQ QAM Ipratropium-Albuterol (Duoneb), 1 TREATMENT INH Q6 Multivitamins/Minerals (Mvi With Minerals), 1 TAB PO DAILY Protein (Beneprotein), 1 DOSE PO TID Spironolactone (Aldactone), 25 MG PO 2XWK Trazodone Hcl (Trazodone), 25 MG PO HS [Prealbumin], UD Scheduled PRN Acetaminophen (Tylenol), 650 MG PO Q8 PRN for temp > 101 Acetaminophen (Tylenol), 650 MG PO Q6 PRN for PAIN 1-5 Buspirone Hcl (Buspirone Hcl), 5 MG PO Q12 PRN for Anxiety Clotrimazole (Lotrimin 1%), 1 APPLN TOP Q12 PRN for RASH Ipratropium-Albuterol (Duoneb), 1 TREATMENT INH Q4H PRN for COUGH/WHEEZING Magnesium Hydroxide (Milk Of Magnesia), 30 ML PO Q72HRS PRN for Constipation Oxycodone HCl (Oxycodone HCl), 5 MG PO Q6 PRN for PAIN 6-10 Physical Exam Vital Signs Date Time Temp Pulse Resp B/P (MAP) Pulse Ox O2 Delivery O2 Flow Rate FiO2 11/29/17 17:50 97 11/29/17 16:56 96 28 112/55 92 Non-Rebreather 6.0 11/29/17 15:40 90 30 92 Non-Rebreather 6.0 11/29/17 13:51 92 11/29/17 13:47 36.6 95 28 106/72 92 Non-Rebreather 6.0 Physical Exam GENERAL: 57-year-old female, chronically ill in appearance, appears older than stated age,, in no acute distress, nondiaphoretic, well-developed well- nourished. SKIN: Numerous areas of pressure ulcers noted particularly on the heels. No significant erythema surrounding the area. HEAD: Normocephalic atraumatic. MOUTH: Mucous membranes very dry NECK: Supple without nuchal rigidity. No lymphadenopathy. Cervical spine is nontender. No JVD. HEART: Regular rate and rhythm without murmurs gallops or rubs. LUNGS: No wheezing. Decreased breath sounds particularly at the left base. ABDOMEN: Positive bowel sounds x 4.Soft, nontender, without organomegaly. No guarding or rebound tenderness. MUSCULOSKELETAL: Trace pitting edema in the lower extremities bilaterally. Brawny in appearance bilaterally. Pressure ulcers on the heels as noted above. Capillary in the toes is approximately 3 seconds bilaterally. NEURO: Patient was alert and oriented to person place and time. No focal neurologic deficits noted. Medical Decision & Procedures ER Provider Diagnostic Interpretation: CXR MPRESSION: 1. Cardiomegaly with hypoinflation, bronchovascular crowding and mild pulmonary vascular congestion. 2. Subsegmental perihilar and bibasilar opacities favor atelectasis. The above report was generated using voice recognition software. It may contain grammatical, syntax or spelling errors. Electronically signed by: Napoleon Robert M.D. 11/29/2017 2:29 PM Laboratory Results 11/29/17 14:00 Red Blood Count 3.77, Mean Corpuscular Volume 89.9, Mean Corpuscular Hemoglobin 26.8, Mean Corpuscular Hemoglobin Concent 29.8, Mean Platelet Volume 9.8, Neutrophils (%) (Auto) 81.4, Lymphocytes (%) (Auto) 8.0, Monocytes (%) (Auto) 8.3, Eosinophils (%) (Auto) 1.9, Basophils (%) (Auto) 0.3, Neutrophils # (Auto) 5.56, Lymphocytes # (Auto) 0.55, Monocytes # (Auto) 0.57, Eosinophils # (Auto) 0.13, Basophils # (Auto) 0.02 Test 11/29/17 14:00 11/29/17 14:36 11/29/17 16:53 White Blood Count 6.84 K/uL (4.8-10.8) Red Blood Count 3.77 M/uL (4.2-5.4) Hemoglobin 10.1 g/dL (12.0-16.0) Hematocrit 33.9 % (37-47) Mean Corpuscular Volume 89.9 fL (80-100) Mean Corpuscular Hemoglobin 26.8 pg (25-34) Mean Corpuscular Hemoglobin Concent 29.8 g/dl (32-36) Platelet Count 252 K/uL (130-400) Mean Platelet Volume 9.8 fL (7.4-10.4) Neutrophils (%) (Auto) 81.4 % Lymphocytes (%) (Auto) 8.0 % Monocytes (%) (Auto) 8.3 % Eosinophils (%) (Auto) 1.9 % Basophils (%) (Auto) 0.3 % Neutrophils # (Auto) 5.56 K/uL (1.4-6.5) Lymphocytes # (Auto) 0.55 K/uL (1.2-3.4) Monocytes # (Auto) 0.57 K/uL (0.11-0.59) Eosinophils # (Auto) 0.13 K/uL (0-0.5) Basophils # (Auto) 0.02 K/uL (0-0.2) RDW Standard Deviation 68.1 fL (36.4-46.3) RDW Coefficient of Variation 20.8 % (11.5-14.5) Immature Granulocyte % (Auto) 0.1 % Immature Granulocyte # (Auto) 0.01 K/uL (0.00-0.02) Anisocytosis PRESENT Ovalocytes 1+ Schistocytes 1+ Total Bilirubin 0.4 mg/dl (0.2-1) Aspartate Amino Transf (AST/SGOT) 8 U/L (15-37) Alanine Aminotransferase (ALT/SGPT) 7 U/L (12-78) Alkaline Phosphatase 78 U/L (45-117) Pro-B-Type Natriuretic Peptide 25701 pg/ml (0-900) Total Protein 6.0 gm/dl (6.4-8.2) Albumin 2.6 gm/dl (3.4-5.0) Globulin 3.4 gm/dl (2.5-4.0) Albumin/Globulin Ratio 0.8 (0.9-2) Thyroid Stimulating Hormone (TSH) 2.370 uIu/ml (0.300-4.500) Urine Color YELLOW Urine Appearance TURBID (CLEAR) Urine pH 5.0 (4.5-7.5) Urine Specific [place] 1.012 (1.000-1.030) Urine Protein NEG (NEG) Urine Glucose (UA) NEG (NEG) Urine Ketones NEG (NEG) Urine Occult Blood 1+ (NEG) Urine Nitrite NEG (NEG) Urine Bilirubin NEG (NEG) Urine Urobilinogen NEG (NEG) Urine Leukocyte Esterase LARGE (NEG) Urine WBC (Auto) >30 /hpf (0-5) Urine RBC (Auto) 0-4 /hpf (0-4) Urine Hyaline Casts (Auto) >30 /lpf (0-5) Urine Epithelial Cells (Auto) >30 /lpf (0-5) Urine Bacteria (Auto) NEG (NEG) Urine Pathogenic Casts /lpf (0) Urine Yeast (Auto) (NONE PRSENT) Troponin I 0.049 ng/ml (0-0.045) Medications Administered Medications (Trade) Dose Ordered Sig/Bruno Route Start Time Stop Time Status Last Admin Dose Admin Furosemide (Lasix Inj) 40 mg NOW STAT IV 11/29/17 13:58 11/29/17 14:00 DC 11/29/17 14:21 40 MG ECG Per My Interpretation Indication: SOB/dyspnea Rate (beats per minute): 98 Rhythm: normal sinus Findings: PVC Comparison ECG Date: PVCs now present ED Course Patient was seen and examined Vital signs including blood pressure were reviewed medications list was verified with patient Labs were obtained, and a saline lock was established The patient was medicated with Lasix 40 mg IV Upon reassessment, the patient was sleeping Repeat troponin and EKG were performed per request of the hospitalist. They appeared fairly unchanged. The case was discussed with my supervising physician who personally examined the patient I again discussed the case with the [facility] hospitalist group who kindly agreed to keep the patient overnight for further workup and treatment Medical Decision Differential diagnosis: CHF exacerbation, chronic kidney disease, acute on chronic respiratory failure, infectious etiology such as pneumonia, thyroid abnormality, cardiac ischemia, arrhythmia, anemia, renal failure This patient is a 57-year-old female with multiple medical problems (please see past medical history and HPI) the presented to the ED with weight gain and difficulty breathing. On exam, she had some decreased breath sounds particularly at the left base. Upon review of old records, she has gained at least 10 kg. The patient's workup reveals a mildly elevated troponin. Her EKG shows PVCs. No signs of acute ischemia. The patient has multiple comorbidities. Due to the elevation in troponin, weight gain and shortness of breath, I did not feel comfortable discharging the patient. The [facility] hospitalist group kindly agreed to keep the patient overnight for further workup and treatment This chart was completed in part utilizing [employer] Speech Voice Recognition software. Attempts were made to minimize the grammatical errors, random word insertions, pronoun errors and incomplete sentences. Any formal questions or concerns about the content, text or information contained within the body of this dictation should be directly addressed to the provider for clarification. Medication Reconcilliation Current Medication List: was personally reviewed by me Blood Pressure Screening Patient's blood pressure: Elevated blood pressure Blood pressure disposition: Referred to PCP Impression Primary Impression: CHF (congestive heart failure) Departure Information Referrals Dalia Adame (PCP) Patient Instructions My [facility]
--- NOTE | 2017-11-29 14:31 | DIAGNOSTIC IMAGING REPORT ---
CHEST ONE VIEW PORTABLE HISTORY: 57 years-old Female ?hx PNA weight gain CHF acute weight gain with concern for congestive heart failure COMPARISON: Chest radiograph 11/09/2017, CT chest 11/02/2017 TECHNIQUE: Portable AP view of the chest FINDINGS: Cardiac silhouette is enlarged, unchanged. The lungs are hypoinflated with bronchovascular crowding and pulmonary vascular congestion. Atherosclerosis of the aorta. There is no pneumothorax or pleural effusion. Linear subsegmental perihilar and bibasilar opacities. No overt pulmonary edema. Degenerative changes are seen within the shoulders and spine. Patient obesity noted. Right-sided PICC appears unchanged. IMPRESSION: 1. Cardiomegaly with hypoinflation, bronchovascular crowding and mild pulmonary vascular congestion. 2. Subsegmental perihilar and bibasilar opacities favor atelectasis. The above report was generated using voice recognition software. It may contain grammatical, syntax or spelling errors. Electronically signed by: Napoleon Robert M.D. 11/29/2017 2:29 PM Dictated Date/Time: 11/29/2017 2:27 PM
[2017-11-29 14:34] LABS: HEMATOCRIT 33.9 % (37-47); HEMOGLOBIN 10.1 g/dL (12.0-16.0); MEAN CELL VOLUME 89.9 fL (80-100); MEAN CORPUSCULAR HEMOGLOBIN 26.8 pg (25-34); MEAN CORPUSCULAR HGB CONC 29.8 g/dl (32-36); MEAN PLATELET VOLUME 9.8 fL (7.4-10.4); PLATELET COUNT 252 K/uL (130-400); RED CELL DISTRIBUTION WIDTH CV 20.8 % (11.5-14.5); RED CELL DISTRIBUTION WIDTH SD 68.1 fL (36.4-46.3); WHITE BLOOD COUNT 6.84 K/uL (4.8-10.8)
[2017-11-29 14:41] LABS: ALBUMIN 2.6 gm/dl (3.4-5.0); CALCIUM 8.6 mg/dl (8.5-10.1); CREATININE 2.12 mg/dl (0.60-1.20); POTASSIUM 5.1 mmol/L (3.5-5.1)
[2017-11-29 15:08] LABS: BASO % 0.3 %; BASO ABS # 0.02 K/uL (0-0.2); EOS % 1.9 %; EOS ABS # 0.13 K/uL (0-0.5); IG# 0.01 K/uL (0.00-0.02); LYMPH ABS # 0.55 K/uL (1.2-3.4); MONO % 8.3 %; MONO ABS # 0.57 K/uL (0.11-0.59); NEUT % 81.4 %; NEUT ABS # 5.56 K/uL (1.4-6.5)
[2017-11-29] MEDS ORDERED: ASPIRIN 324 MG CHEW PO STA (15:14)
[2017-11-29] MEDS ORDERED: GUAI100S66 PO (16:13)
[2017-11-29] MEDS ORDERED: TRAZ50TA35 PO (16:13)
[2017-11-29] MEDS ORDERED: BUME1TAB PO (16:13)
[2017-11-29] MEDS ORDERED: ACET-1311 PO (16:13)
[2017-11-29] MEDS ORDERED: [UNRECOGNIZED DRUG - REMARK] (16:13)
[2017-11-29] MEDS ORDERED: MOML PO (16:13)
[2017-11-29] MEDS ORDERED: HEPA10IN13 IVF (16:13)
[2017-11-29] MEDS ORDERED: PROT1POW PO (16:13)
[2017-11-29] MEDS ORDERED: BISA10SU3 PR (16:13)
[2017-11-29] MEDS ORDERED: INSDGIPEN SQ (16:13)
[2017-11-29] MEDS ORDERED: BUSP-8 PO (16:13)
[2017-11-29] MEDS ORDERED: LTRCR30 TOP (16:13)
[2017-11-29] MEDS ORDERED: IPRASOL4 INH ×2 (16:13)
[2017-11-29] MEDS ORDERED: IMIP1INJ5 PO (16:13)
[2017-11-29] MEDS ORDERED: MULT-513 PO (16:13)
[2017-11-29] MEDS ORDERED: OXYC-609 PO (16:13)
--- NOTE | 2017-11-29 17:14 | EMERGENCY ROOM VISIT NOTE ---
ED Visit Note First contact with patient: 13:38 Patient seen and reviewed. On chronic O2. Troponins elevated. She is fairly dyspneic with conversation. EKG with no obvious acute findings. Do favor likely secondary to CHF. Patient initially declined aspirin but then was agreeable. Consult internal medicine for evaluation and admission for elevated troponin in combination with CHF.
[2017-11-29] MEDS ORDERED: POLYETHYLENE (MIRALAX) 17 GM PACK PO PRN (18:30)
[2017-11-29] MEDS ORDERED: CLOTRIMAZOLE 1% CR 15 GM TUBE EXT PRN (18:30)
[2017-11-29] MEDS ORDERED: ACETAMINOPHEN 325 MG TAB PO PRN ×3 (18:30)
[2017-11-29] MEDS ORDERED: MAGNESIUM HYDROXIDE SUSP 30 ML UDC PO PRN ×2 (18:30)
[2017-11-29] MEDS ORDERED: BUMETANIDE 1 MG TAB PO ONE (18:30)
[2017-11-29] MEDS ORDERED: BISACODYL 10 MG SUPP PR PRN (18:30)
[2017-11-29] MEDS ORDERED: BUMETANIDE 1 MG TAB PO SCH (18:30)
[2017-11-29] MEDS ORDERED: ALUMINUM/MAGNESIUM/SIMETH (MAALOX MAX) 30 ML UDC PO PRN (18:30)
[2017-11-29] MEDS ORDERED: IV FLUIDS COMPLETED PRN (19:15)
[2017-11-29] MEDS ORDERED: IMIPENEM/CILASTATIN IV 300 MG in DEXTROSE 5% 100ML 100 ML IV SCH (20:00)
[2017-11-29] MEDS: GUAIFENESIN SUGAR FREE 200 MG/10 ML UDC PO SCH (20:00)
[2017-11-29 20:08] VITALS: BMI 50.7
[2017-11-29] MEDS ORDERED: PNEUMOCOCCAL POLYSACCHARIDES 25 MCG/0.5 ML VIAL/SYR IM. ONE (20:45)
[2017-11-29] MEDS ORDERED: INFLUENZA ADMINISTRATION CHARGE ONE (20:45)
[2017-11-29] MEDS ORDERED: INFLUENZA VIRUS QUAD VACCINE 0.5 ML SYR IM. ONE (20:45)
[2017-11-29] MEDS ORDERED: PNEUMOCOCCAL ADMINISTRATION CHARGE ONE (20:45)
--- NOTE | 2017-11-29 20:50 | History and Physical ---
History & Physical Date & Time of Service: Nov 29, 2017 at 20:44 Chief Complaint: CHF Primary Care Physician: Dalia Adame Past Medical/Surgical History Medical Problems: (1) Acute renal disease (2) Acute renal failure (3) Acute respiratory failure (4) ELIZABETH (acute kidney injury) (5) ELIZABETH (acute kidney injury) (6) Anemia (7) Cellulitis (8) Cellulitis of both lower extremities (9) CHF (congestive heart failure) (10) CHF (congestive heart failure) (11) CHF (congestive heart failure) (12) Chills (13) Dehydration (14) Femur fracture, left (15) Fluid overload (16) Hyponatremia (17) Hypoxia (18) Hypoxia (19) Leg swelling (20) Leg ulcer (21) Leukocytosis (22) MRSA (methicillin resistant Staphylococcus aureus) infection (23) MRSA lower extremity wounds (24) Pickwickian syndrome (25) Pneumonia (26) Pneumonia (27) Respiratory failure (28) Sacral decubitus ulcer, stage III (29) Sacral decubitus ulcer, stage IV (30) UTI (urinary tract infection) (31) UTI (urinary tract infection) due to urinary indwelling Lerner catheter Family History No pertinent family history Social History Smoking Status: Former Smoker Drug Use: none Marital Status: single, Housing status: prison Occupational Status: disabled Allergies Coded Allergies: Vancomycin (Verified Allergy, Severe, ANAPHYLAXIS, 10/31/17) pt began shaking,face and neck bright red rash.o2 saturation dropping to 84% on 15lnrb Ampicillin (Verified Allergy, Mild, RASH, 10/31/17) Clindamycin (Verified Allergy, Mild, RASH, 10/31/17) Linezolid (Verified Allergy, Mild, RASH, 10/31/17) Penicillins (Verified Allergy, Mild, RASH, 10/31/17) Ciprofloxacin (Verified Adverse Reaction, Mild, MUSCLE ACHES, 10/31/17) muscle aches Methimazole (Verified Adverse Reaction, Mild, headache, 10/31/17) headache Nystatin (Verified Adverse Reaction, Mild, nausea, abd pain, kidney pain, 10/31/17) nausea, abd pain,kidney pain Home Medications Scheduled Bisacodyl (Dulcolax), 1 SUPP DC PRN UD Bumetanide (Bumex), 1 TAB PO TID Bumetanide (Bumex), 2 MG PO UD Docusate Sodium (Colace), 1 CAP PO HS Ergocalciferol (Vitamin D 70135 Unit), 1 TAB PO WK Fluconazole (Diflucan), 100 MG PO Q2D Glimepiride (Glimepiride), 3 TAB PO DAILY Guaifenesin (Guaifenesin), 10 ML PO QID Heparin Sodium (Porcine) Lock (Heparin Lock Flush), 5 ML IVF BID Imipenem-Cilastatin (Primaxin Iv), 300 MG PO Q6 Insulin Aspart (Novolog Flexpen), UNITS SQ ACHS Insulin Glargine (Lantus Solostar), 10 UNITS SQ QAM Ipratropium-Albuterol (Duoneb), 1 TREATMENT INH Q6 Multivitamins/Minerals (Mvi With Minerals), 1 TAB PO DAILY Protein (Beneprotein), 1 DOSE PO TID Spironolactone (Aldactone), 25 MG PO 2XWK Trazodone Hcl (Trazodone), 25 MG PO HS [Prealbumin], UD Scheduled PRN Acetaminophen (Tylenol), 650 MG PO Q8 PRN for temp > 101 Acetaminophen (Tylenol), 650 MG PO Q6 PRN for PAIN 1-5 Buspirone Hcl (Buspirone Hcl), 5 MG PO Q12 PRN for Anxiety Clotrimazole (Lotrimin 1%), 1 APPLN TOP Q12 PRN for RASH Ipratropium-Albuterol (Duoneb), 1 TREATMENT INH Q4H PRN for COUGH/WHEEZING Magnesium Hydroxide (Milk Of Magnesia), 30 ML PO Q72HRS PRN for Constipation Oxycodone HCl (Oxycodone HCl), 5 MG PO Q6 PRN for PAIN 6-10 Physical Exam Vital Signs Date Time Temp Pulse Resp B/P (MAP) Pulse Ox O2 Delivery O2 Flow Rate FiO2 11/29/17 19:05 88 28 91 11/29/17 17:50 97 11/29/17 16:56 96 28 112/55 92 Non-Rebreather 6.0 11/29/17 15:40 90 30 92 Non-Rebreather 6.0 11/29/17 13:51 92 11/29/17 13:47 36.6 95 28 106/72 92 Non-Rebreather 6.0 Diagnostics Laboratory Results Results Past 24 Hours Test 11/29/17 14:00 11/29/17 14:36 11/29/17 16:53 Range/Units White Blood Count 6.84 4.8-10.8 K/uL Red Blood Count 3.77 4.2-5.4 M/uL Hemoglobin 10.1 12.0-16.0 g/dL Hematocrit 33.9 37-47 % Mean Corpuscular Volume 89.9 80-100 fL Mean Corpuscular Hemoglobin 26.8 25-34 pg Mean Corpuscular Hemoglobin Concent 29.8 32-36 g/dl Platelet Count 252 130-400 K/uL Mean Platelet Volume 9.8 7.4-10.4 fL Neutrophils (%) (Auto) 81.4 % Lymphocytes (%) (Auto) 8.0 % Monocytes (%) (Auto) 8.3 % Eosinophils (%) (Auto) 1.9 % Basophils (%) (Auto) 0.3 % Neutrophils # (Auto) 5.56 1.4-6.5 K/uL Lymphocytes # (Auto) 0.55 1.2-3.4 K/uL Monocytes # (Auto) 0.57 0.11-0.59 K/uL Eosinophils # (Auto) 0.13 0-0.5 K/uL Basophils # (Auto) 0.02 0-0.2 K/uL RDW Standard Deviation 68.1 36.4-46.3 fL RDW Coefficient of Variation 20.8 11.5-14.5 % Immature Granulocyte % (Auto) 0.1 % Immature Granulocyte # (Auto) 0.01 0.00-0.02 K/uL Anisocytosis PRESENT Ovalocytes 1+ Schistocytes 1+ Sodium Level 137 136-145 mmol/L Potassium Level 5.1 3.5-5.1 mmol/L Chloride Level 102 98-107 mmol/L Carbon Dioxide Level 29 21-32 mmol/L Anion Gap 6.0 3-11 mmol/L Blood Urea Nitrogen 60 7-18 mg/dl Creatinine 2.12 0.60-1.20 mg/dl Est Creatinine Clear Calc Drug Dose 40.3 ml/min Estimated GFR () 28.8 Estimated GFR (Non- 24.8 BUN/Creatinine Ratio 28.5 10-20 Random Glucose 124 70-99 mg/dl Calcium Level 8.6 8.5-10.1 mg/dl Total Bilirubin 0.4 0.2-1 mg/dl Aspartate Amino Transf (AST/SGOT) 8 15-37 U/L Alanine Aminotransferase (ALT/SGPT) 7 12-78 U/L Alkaline Phosphatase 78 45-117 U/L Troponin I 0.054 0.049 0-0.045 ng/ml Pro-B-Type Natriuretic Peptide 07496 0-900 pg/ml Total Protein 6.0 6.4-8.2 gm/dl Albumin 2.6 3.4-5.0 gm/dl Globulin 3.4 2.5-4.0 gm/dl Albumin/Globulin Ratio 0.8 0.9-2 Thyroid Stimulating Hormone (TSH) 2.370 0.300-4.500 uIu/ml Urine Color YELLOW Urine Appearance TURBID CLEAR Urine pH 5.0 4.5-7.5 Urine Specific [place] 1.012 1.000-1.030 Urine Protein NEG NEG Urine Glucose (UA) NEG NEG Urine Ketones NEG NEG Urine Occult Blood 1+ NEG Urine Nitrite NEG NEG Urine Bilirubin NEG NEG Urine Urobilinogen NEG NEG Urine Leukocyte Esterase LARGE NEG Urine WBC (Auto) >30 0-5 /hpf Urine RBC (Auto) 0-4 0-4 /hpf Urine Hyaline Casts (Auto) >30 0-5 /lpf Urine Epithelial Cells (Auto) >30 0-5 /lpf Urine Bacteria (Auto) NEG NEG Urine Pathogenic Casts 0 /lpf Urine Yeast (Auto) NONE PRSENT Microbiology Results 11/29/17 Urine Culture, Received Pending Impression Assessment and Plan obs #[id number] Advanced Directives Existing Living Will: No Existing Power of Claims Support Specialist: No Resuscitation Status VTE Prophylaxis Will order VTE Prophylaxis: Yes
[2017-11-29] MEDS: ENOXAPARIN 30 MG/0.3 ML SYR SQ SCH (21:00)
[2017-11-29] MEDS: INSULIN ASPART 100 UNITS/ML 3 ML PEN SC SCH (21:27)
[2017-11-29] MEDS: DOCUSATE SODIUM 100 MG CAP PO SCH (21:27)
[2017-11-29] MEDS: TRAZODONE HCL 50 MG TAB PO SCH (21:27)
[2017-11-29] MEDS: ALBUT/IPRATROP 3MG/0.5MG NEB 3 ML VIAL INH SCH (22:19)
--- NOTE | 2017-11-29 22:26 | HISTORY & PHYSICAL EXAMINATION ---
DATE OF ADMISSION: 11/29/2017 CHIEF COMPLAINT: Weight gain and swelling. HISTORY OF PRESENT ILLNESS: The patient is a 57-year-old female well known to myself and our service who was here with pneumonia and she was discharged after a regimen of Primaxin. She then noted over the last few weeks she has gained in her estimation about 60 pounds of fluid and was having more of a cough, dyspnea on exertion, although it does not sound like any true shortness of breath at rest. No fevers, chills, or sweats. She notes her legs have actually been as nonedematous that she remembers in a long time and they are healing well. She believes that there was not any real effort being put into dietary sodium or fluid restriction at [facility] and also notes that while she describes to me what appears to be a very appropriate escalation in her medications that she felt that the provider seeing her there did not know what they were doing and were just playing with her meds. She notes that whenever they noticed a worsening weight gain and edema they were progressively increasing her Bumex until sending her to the ER today for further evaluation. She notes with the escalations in Bumex, she had not seen any significant improvement in her edema and notes; however, that today was the first day she was given 2 mg at a dose per her recollection. REVIEW OF SYSTEMS: Otherwise negative, except for as above. PAST MEDICAL HISTORY: Includes chronic diastolic CHF and right-sided CHF as well as cor pulmonale and pulmonary hypertension, obstructive sleep apnea on BiPAP at bedtime, poorly-controlled type 2 diabetes, stage IV CKD related to her diabetes with a baseline creatinine in the 1.7-2.0 range, stage III sacral decubitus, venous stasis with ulcers that are currently healing, but she has chronic right heel and right Achilles wounds, chronic hypoxic and hypercapnic respiratory failure, chronically on oxygen, gout, and COPD. PAST SURGICAL HISTORY: Includes an IVC filter, a , left hip fracture, ORIF, multiple debridements of various wounds of her lower extremities, and multiple PICC lines. FAMILY HISTORY: None is relevant however, mom of an SD in her 70s. Father and siblings had coronary disease. SOCIAL HISTORY: She has come to us from [facility], where she has been in and out as a rehab patient, however, currently she says she does not want to go back there. She is a former smoker, single, and . ALLERGIES: VANCOMYCIN, AMPICILLIN, CLINDAMYCIN, LINEZOLID, PENICILLIN, CIPROFLOXACIN, METHIMAZOLE, AND NYSTATIN. HOME MEDICATION LIST: Rather extensive and includes Tylenol, bisacodyl, Bumex 1 mg t.i.d. and 2 mg as directed, BuSpar, Colace, clotrimazole cream, vitamin D2 weekly, fluconazole, glimepiride, guaifenesin, heparin flushes, recently on Primaxin, Lantus and NovoLog insulins, DuoNebs q. 6 and q. 4 p.r.n., milk of mag, multivitamin, oxycodone, protein supplements, spironolactone, and trazodone. PHYSICAL EXAMINATION: VITAL SIGNS: Temp 36.6, pulse 95, respiratory rate listed in the mid 20s to 30s but whenever I am seeing her, it appears to be more like 14. GENERAL: She is awake, alert, oriented x3 in no acute distress. HEENT: Normocephalic, atraumatic. Mucous membranes are moist. CARDIOVASCULAR: Regular, somewhat distant. No rubs, murmurs, or gallops. LUNGS: Show bibasilar rales. It is a very difficult exam due to her size, weakness, and positioning, but it appears to be bibasilar rales and diminished air entry but clear further upper lungs. ABDOMEN: Soft, but quite large, does feel edematous. No guarding, rebound, or rigidity. EXTREMITIES: Without cyanosis or clubbing. There is chronic edema and chronic changes with some ulcerations that are currently dressed. No erythema. SKIN: Shows no rashes, no pallor or icterus. NEUROLOGIC: Shows cranial nerves II-XII to be grossly intact. Gross motor and sensory are intact. MENTAL STATE: Shows good recent and remote recall. Stable mood and affect for her. Stable judgment and insight for her. MUSCULOSKELETAL: Yields no gross lesions. LABS AND DIAGNOSTICS: EKGs are sinus, one shows what appears to be bigeminy. The other is sinus without any clear ischemic changes. CBC shows a white count of 6.84, hemoglobin 10.1, platelets 252. Complete metabolic panel with sodium 137, potassium 5.1, chloride 102, CO2 29, BUN 60, creatinine 2.12, calcium 8.6, glucose 124, total bili 0.4 with an AST of 8, ALT of 7, alkaline phosphatase 78. Troponin of 0.054 and followup is 0.049 almost 3 hours later. Her BNP is 10,646, total protein 6, albumin 2.6. TSH 2.37. Urinalysis yellow, turbid, specific gravity 1.012, greater than 30 white cells, large leukocyte esterase, greater than 30 hyaline casts, greater than 30 epithelial cells. Chest x-ray appears to have some pulmonary vascular congestion, although it is a very difficult film to read due to her positioning, her obesity, and a fairly poor inspiratory effort. ASSESSMENT AND PLAN: 1. Dgcck-sq-[id number] diastolic congestive heart failure. It appears predominantly right-sided congestive heart failure. He does have a degree of left-sided congestive heart failure given the pulmonary edema and rales on exam, but given the massive abdominal edema this appears to be predominantly a right-sided problem, most likely it is her chronic cardiomyopathy worsened by indiscretion and sodium intake leading to fluid retention; however, it has been to my best estimate at least a year and a half since an echocardiogram was checked over at [facility]. Whenever I had done 1, certainly, they may have done one more recently that I do not have access to, but to ensure that there is not a worsening of her cardiomyopathy, we will repeat an echocardiogram. Again, however, I suspect this is predominantly due to dietary indiscretion with sodium intake. Even discussed with the patient the possibility of outpatient treatment given that it appeared that her care team at [facility] was following a very appropriate escalation in her diuretics and thus patient's vital signs are stable; however, the patient herself expresses a distress with [facility] and not wanting to go back there and so for now we will observe her on medical-surgery to get some fluid off and try to work on alternate living arrangements. Given that her vitals are stable, for now, we will try to effect a reasonable diuresis escalating her oral diuretics to help her have confidence and comfort that this could be managed as an outpatient if she shows improvement and also to justify needing to keep her further if she does not diurese with oral diuretics alone, thereby necessitating IV. 2. Chronic respiratory failure. This appears to be related to her chronic obstructive pulmonary disease, obesity hypoventilation syndrome, chronic heart failure. Continue oxygen. Continue BiPAP at bedtime. 3. Recent pneumonia. It appears her antibiotics have been completed. Follow her closely. 4. Chronic venous stasis with lower extremity wounds. Continue local wound care and fluconazole, although this likely can be stopped near future. 5. Diabetes. Continue insulin fingersticks and supplemental insulin. 6. Deep venous thrombosis prophylaxis, Lovenox. 7. Chronic kidney disease stage IV. Continue to follow her creatinine. I suspect it will actually improve with diuresis first. 8. Disposition: She will be observed on medical-surgery under the [facility] Hospitalist Service.
[2017-11-30] MEDS ORDERED: IMIPENEM IV SCH
[2017-11-30] MEDS ORDERED: CILASTATIN IV SCH
[2017-11-30] MEDS: OXYCODONE HCL IR 5 MG TAB (IMMEDIATE RELEASE) PO PRN ×2 (00:26→13:14)
[2017-11-30] MEDS: ALBUT/IPRATROP 3MG/0.5MG NEB 3 ML VIAL INH SCH ×3 (02:30→19:43)
[2017-11-30 02:31] VITALS: PULSE 63; O2SAT 93
[2017-11-30 05:50] LABS: CALCIUM 8.5 mg/dl (8.5-10.1); CREATININE 2.08 mg/dl (0.60-1.20); POTASSIUM 4.9 mmol/L (3.5-5.1)
[2017-11-30 07:11] VITALS: PULSE 63; O2SAT 90
[2017-11-30 07:12] VITALS: BP 97/62; PULSE 90; TEMP 36.6
[2017-11-30] MEDS: GUAIFENESIN SUGAR FREE 200 MG/10 ML UDC PO SCH ×5 (08:00→20:00)
[2017-11-30] MEDS: CEROVITE ADV FORMULA TAB PO SCH ×2 (08:00→09:56)
[2017-11-30] MEDS ORDERED: BUMETANIDE 1 MG TAB PO SCH (09:00)
[2017-11-30] MEDS: SPIRONOLACTONE 25 MG TAB PO SCH (09:49)
[2017-11-30] MEDS: INSULIN ASPART 100 UNITS/ML 3 ML PEN SC SCH ×5 (09:57→21:39)
[2017-11-30] MEDS: INSULIN GLARGINE SOLOSTAR 100 UNITS/ML 3 ML PEN SQ SCH (09:59)
[2017-11-30 10:00] VITALS: O2SAT 90
[2017-11-30] MEDS: FLUCONAZOLE 100 MG TAB PO SCH (10:01)
[2017-11-30] MEDS: ENOXAPARIN 30 MG/0.3 ML SYR SQ SCH ×2 (10:02→21:00)
[2017-11-30] MEDS: BUMETANIDE IV 2 MG in SYRINGE 0 ML IV SCH ×2 (10:06→18:37)
--- NOTE | 2017-11-30 14:50 | ECHOCARDIOGRAM REPORT ---
*NOTICE TO RECEIVING [employer] AGENCY This information is strictly Confidential and protected under [place] law. [place] law prohibits you from making any further disclosure of this information unless further disclosure is expressly permitted by the written consent of the person to whom it pertains or is authorized by law. A general authorization for the release of medical or other information is not sufficient for this purpose. Hospital accepts no responsibility if the information is made available to any other person, INCLUDING THE PATIENT. Interpretation Summary * Conclusions -- * 1. Technically difficult study * 2. Grossly normal LV size and wall thickness. * 3. Moderate LV dysfunction. LVEF 35-40%. Severe inferolateral hypokinesis. Flattened septum consistent with RV pressure/volume overload. * 3. Severely dilated RV with moderate RV dysfunction. * 4. Njts-er-qwhmrpfl eccentric mitral regurgitation * 5. Aortic valve sclerosis without stenosis * 6. Moderate to severe TR. * 7. Severe pulmonary hypertension. Estimated PASP 80-85 mmHg. Dilated IVC, estimated RA 15 mmHg. * 8. Compared with prior study on 05/21/2015: Current study more technically limited without definity. LV function appears worse and estimated PA pressure increased. Procedure Details * A complete two-dimensional transthoracic echocardiogram was performed (2D, M-mode, Doppler and color flow Doppler). * The study was technically difficult. * There were technical limitations due to patient's SUPINE positioning for imagining and body habitus Left Ventricle * The left ventricle is grossly normal size. * There is normal left ventricular wall thickness. * Ejection Fraction = 35-40%. * There is severe posterior wall hypokinesis. * Flattened septum is consistent with RV pressure/volume overload. Right Ventricle * The right ventricle is severely dilated. * The right ventricular systolic function is moderately reduced. Atria * The left atrial size is normal. * The right atrium is moderately dilated. * No ASD detected; PFO is not assessed. Mitral Valve * The mitral valve is grossly normal. * There is no mitral valve stenosis. * There is mild to moderate mitral regurgitation. * The mitral regurgitant jet is eccentrically directed. Tricuspid Valve * There is moderate to severe tricuspid regurgitation. * Right ventricular systolic pressure is elevated at >60mmHg. Aortic Valve * Aortic valve sclerosis mild, without significant aortic valvular stenosis. * The aortic valve is trileaflet. * No hemodynamically significant valvular aortic stenosis. * There is no significant aortic regurgitation. Pulmonic Valve * The pulmonary valve is inadequately visualized, but the Doppler data is adequate for interpretation. * Trace pulmonic valvular regurgitation. Great Vessels * The aortic root and proximal ascending aorta are normal sized. Pericardium/Pleural * There is no pericardial effusion. Great Vessels * Dilated inferior vena cava with reduced collapsability with sniff indicates an elevated right atrial pressure of 15 mmHg * Severe pulmonary hypertension. Estimated PASP 80-85 mmHg MMode 2D Measurements and Calculations IVSd 1.0 cm IVSs 1.1 cm LVIDd 6.2 cm LVIDs 5.2 cm LVPWd 0.63 cm LVPWs 0.81 cm IVS/LVPW 1.6 FS 16.5 % EDV(Teich) 191.9 ml ESV(Teich) 126.7 ml EF(Teich) 34.0 % EDV(cubed) 235.0 ml ESV(cubed) 136.7 ml EF(cubed) 41.8 % % IVS thick 11.4 % % LVPW thick 28.4 % LV mass(C)d 203.9 grams LV mass(C)dI 86.3 grams/m\S\2 LV mass(C)s 184.9 grams LV mass(C)sI 78.2 grams/m\S\2 SV(Teich) 65.2 ml SI(Teich) 27.6 ml/m\S\2 SV(cubed) 98.3 ml SI(cubed) 41.6 ml/m\S\2 Ao root diam 3.4 cm Ao root area 9.0 cm\S\2 ACS 1.6 cm LA dimension 4.4 cm LA/Ao 1.3 EDV(MOD-sp4) 174.0 ml ESV(MOD-sp4) 112.2 ml EF(MOD-sp4) 35.6 % EDV(MOD-sp2) 274.2 ml ESV(MOD-sp2) 171.4 ml EF(MOD-sp2) 37.5 % SV(MOD-sp4) 61.9 ml SI(MOD-sp4) 26.2 ml/m\S\2 SV(MOD-sp2) 102.8 ml SI(MOD-sp2) 43.5 ml/m\S\2 Doppler Measurements and Calculations MV E max denver 74.7 cm/sec MV A max denver 108.5 cm/sec MV E/A 0.69 MV P1/2t max denver 93.8 cm/sec MV P1/2t 60.7 msec MVA(P1/2t) 3.6 cm\S\2 MV dec slope 452.7 cm/sec\S\2 MV dec time 0.17 sec Ao V2 max 184.6 cm/sec Ao max PG 13.6 mmHg Ao max PG (full) 8.8 mmHg LV V1 max PG 4.9 mmHg LV V1 max 110.4 cm/sec PA V2 max 85.1 cm/sec PA max PG 2.9 mmHg PI max denver 254.7 cm/sec PI max PG 25.9 mmHg PI dec slope 393.5 cm/sec\S\2 PI P1/2t 189.5 msec TR max denver 346.1 cm/sec
[2017-11-30 15:06] VITALS: Ht 165.1 cm; Wt 133.0 kg
[2017-11-30] MEDS ORDERED: NURSING DECISION MEDICATION ORDER SCH (18:45)
[2017-11-30] MEDS ORDERED: MICONAZOLE NITRATE POWDER 43 GM EXT PRN (19:00)
[2017-11-30 19:43] VITALS: PULSE 69; PULSE 99; O2SAT 90
--- NOTE | 2017-11-30 20:25 | Medical Consult ---
Consultation Date of Consultation: Nov 30, 2017. Attending Physician: Lucius Giraldo MD Reason for Consultation: Primaxin ordered History of Present Illness 57-year-old female well known to the Infectious Disease service, with longstanding poorly controlled diabetes mellitus, severe chronic congestive heart failure with severe peripheral edema, chronic wounds of lower extremity and sacrum, recently hospitalized for wound care in pneumonia, now admitted with several days of progressively worsening shortness of breath with increasing anasarca and weight gain. Has noted no worsening of her lower extremity or sacral wounds, and denies any significant fever or chills. Has been found to have significant fluid overload and is being treated with diuretics with some improvement. Wounds have continued to improve and have not appeared infected. Past Medical/Surgical History Medical Problems: (1) Acute renal disease Status: Acute (2) Acute renal failure Status: Acute (3) ELIZABETH (acute kidney injury) Status: Acute (4) ELIZABETH (acute kidney injury) Status: Acute (5) Anemia Status: Acute (6) Cellulitis Status: Acute (7) Cellulitis of both lower extremities Status: Acute (8) CHF (congestive heart failure) Status: Acute (9) CHF (congestive heart failure) Status: Acute (10) Dehydration Status: Acute (11) Fluid overload Status: Acute (12) Hypoxia Status: Acute (13) Pickwickian syndrome Status: Acute (14) Pneumonia Status: Acute (15) Respiratory failure Status: Acute (16) Sacral decubitus ulcer, stage III Status: Acute (17) UTI (urinary tract infection) Status: Acute (18) UTI (urinary tract infection) due to urinary indwelling Lerner catheter Status: Acute Medical Problems: (1) Acute respiratory failure (2) CHF (congestive heart failure) (3) Chills (4) Femur fracture, left (5) Hyponatremia (6) Hypoxia (7) Leg swelling (8) Leg ulcer (9) Leukocytosis (10) MRSA (methicillin resistant Staphylococcus aureus) infection (11) MRSA lower extremity wounds (12) Pneumonia (13) Sacral decubitus ulcer, stage IV Family History No pertinent family history Social History Smoking Status: Former Smoker Drug Use: none Marital Status: single, Housing Status: fdc Occupation Status: disabled Allergies Coded Allergies: Vancomycin (Verified Allergy, Severe, ANAPHYLAXIS, 10/31/17) pt began shaking,face and neck bright red rash.o2 saturation dropping to 84% on 15lnrb Ampicillin (Verified Allergy, Mild, RASH, 10/31/17) Clindamycin (Verified Allergy, Mild, RASH, 10/31/17) Linezolid (Verified Allergy, Mild, RASH, 10/31/17) Penicillins (Verified Allergy, Mild, RASH, 10/31/17) Ciprofloxacin (Verified Adverse Reaction, Mild, MUSCLE ACHES, 10/31/17) muscle aches Methimazole (Verified Adverse Reaction, Mild, headache, 10/31/17) headache Nystatin (Verified Adverse Reaction, Mild, nausea, abd pain, kidney pain, 10/31/17) nausea, abd pain,kidney pain Current Inpatient Medications Current Inpatient Medications Medications (Trade) Dose Ordered Sig/Bruno Route Start Time Stop Time Status Last Admin Dose Admin Bumetanide (Bumex Tab) 2 mg BID17 PO 11/30/17 09:00 12/30/17 08:59 Future Hold Enoxaparin Sodium (Lovenox Inj) 30 mg Q12 SQ 11/29/17 21:00 12/29/17 20:59 11/30/17 10:02 30 MG Acetaminophen (Tylenol Tab) 650 mg Q4H PRN PO 11/29/17 18:30 12/29/17 18:29 Al Hydrox/Mg Hydrox/Simethicone (Maalox Max Susp) 15 ml Q4H PRN PO 11/29/17 18:30 12/29/17 18:29 Magnesium Hydroxide (Milk Of Magnesia Susp) 30 ml Q6H PRN PO 11/29/17 18:30 12/29/17 18:29 Polyethylene (Miralax Powder Packet) 17 gm DAILY PRN PO 11/29/17 18:30 12/29/17 18:29 Ondansetron HCl (Zofran Inj) 4 mg Q6H PRN IV 11/29/17 18:30 12/29/17 18:29 Insulin Aspart (novoLOG ASPART) SLIDING SCALE G... ACHS SC 11/29/17 21:00 12/29/17 20:59 11/30/17 18:36 2 UNITS Clotrimazole (Lotrimin 1% Crm) 1 appln Q12 PRN EXT 11/29/17 18:30 12/29/17 18:29 Docusate Sodium (coLACE CAP) 100 mg HS PO 11/29/17 21:00 12/29/17 20:59 Ergocalciferol (Vitamin D Cap) 50,000 interunit Fr@0900 PO 12/06/17 09:00 01/05/18 08:59 Fluconazole (Diflucan Tab) 100 mg Q2D@0900 PO 11/30/17 09:00 12/10/17 08:59 11/30/17 10:01 100 MG Heparin Sodium (Porcine) (Heparin 10 Unit/ ml 5 ml Flush) 5 ml BID FLUSH 11/29/17 20:00 12/29/17 20:59 11/30/17 18:38 5 ML Insulin Glargine (Lantus Solostar Pen) 10 units QAM SQ 11/30/17 08:00 12/30/17 08:59 11/30/17 09:59 10 UNITS Albuterol/ Ipratropium (Duoneb) 3 ml Q4H PRN INH 11/29/17 18:30 12/29/17 18:29 Albuterol/ Ipratropium (Duoneb) 3 ml Q6R INH 11/29/17 21:00 12/29/17 20:59 11/30/17 19:43 3 ML Multivitamins/ Minerals (Multivitamin W/ Minerals Tab) 1 tab DAILY PO 11/30/17 08:00 12/30/17 08:59 Oxycodone HCl (Roxicodone Immediate Rel Tab) 5 mg Q6H PRN PO 11/29/17 18:30 12/13/17 18:29 11/30/17 13:14 5 MG Spironolactone (Aldactone Tab) 25 mg DAILY PO 11/30/17 08:00 12/30/17 08:59 11/30/17 09:49 25 MG Trazodone HCl (Desyrel Tab) 25 mg HS PO 11/29/17 21:00 12/29/17 20:59 Bisacodyl (Dulcolax Supp) 10 mg DAILY PRN [place] 11/29/17 18:30 12/29/17 18:29 Buspirone HCl (Buspar Tab) 5 mg Q12 PRN PO 11/29/17 18:30 5/13/18 18:29 Guaifenesin (Robitussin Sugar Free Syrup) 200 mg QID PO 11/29/17 20:00 12/29/17 20:59 Miscellaneous Information (Order Awaiting Action) 1 ea QS N/A 11/30/17 00:00 12/30/17 00:00 Miscellaneous (Iv Fluids Completed) 1 ea PRN PRN N/A 11/29/17 19:15 11/29/18 19:14 Bumetanide 2 mg/ Syringe 8 ml @ 4 mls/min DAILY@,17 IV 11/30/17 09:15 12/30/17 09:14 11/30/17 18:37 4 MLS/MIN Miconazole Nitrate (Desenex Powder) 1 appln UD PRN EXT 11/30/17 19:00 12/30/17 18:59 Review of Systems Constitutional: + weakness, No fever Eyes: No problem reported ENT: No problem reported Respiratory: + shortness of breath, + dyspnea on exertion Cardiovascular: No problem reported Abdomen: No problem reported Musculoskeletal: + swelling Genitourinary - Female: No problem reported Neurologic: No problem reported Psychiatric: No problem reported Endocrine: No problem reported Hematologic / Lymphatic: No problem reported Integumentary: No problem reported Allergic / Immunologic: No problem reported Physical Exam Date Time Temp Pulse Resp B/P (MAP) Pulse Ox O2 Delivery O2 Flow Rate FiO2 11/30/17 16:00 Mask 6.0 11/30/17 10:00 90 Mask 6.0 11/30/17 07:12 36.6 90 20 97/62 (74) 11/30/17 07:11 63 20 90 Mask 6.0 11/30/17 02:31 63 20 93 Mask 6.0 11/30/17 00:30 Oxymask 6.0 General Appearance: WD/WN, no apparent distress, + obese Head: normocephalic Eyes: normal inspection, EOMI, sclerae normal ENT: normal ENT inspection, hearing grossly normal, pharynx normal Neck: supple, no adenopathy, thyroid normal, trachea midline Respiratory/Chest: chest non-tender, lungs clear, normal breath sounds, no respiratory distress Cardiovascular: regular rate, rhythm, no gallop, no murmur Abdomen/GI: normal bowel sounds, non tender, soft, no organomegaly Back: normal inspection, no CVA tenderness Extremities/Musculoskelatal: normal capillary refill, + pedal edema, + swelling Neurologic/Psych: alert, oriented x 3 Skin: normal color, no rash, + pertinent finding (Leg wounds and sacral decubitus appear relatively clean) Lymphatic: no adenopathy Laboratory Results RUN DATE: 11/30/17 [facility] LAB PAGE 1 RUN TIME: 1450 Specimen Inquiry PATIENT: LOC PADILLA LOC: [id number] U # : [id number] AGE/SX: 57/F ROOM: [facility] REG : 11/29/[address]: Lucius Giraldo MD : 1960 BED: 2 DIS : STATUS: ADM Deepthi TLOC: SPEC #: [id number] DINO: 11/29/17-807 STATUS: RES REQ #: [id number] RECD: 11/29/17-[address]: Jaz Braswell PA-C SOURCE: URINE CATH ENTR: 11/29/17-[address]: Santos Barrera, [facility]: Dalia Adame ORDERED: CULTURE UR CATH COMMENTS: Has Specimen Been Obtained/Collected? Y Procedure Result Verified Site URINE CULTURE Preliminary 11/30/17-1450 Organism 1 GRAM NEGATIVE BACILLI COLONY COUNT 60,000 CFU/ml SENS SENSITIVITY TO FOLLOW Organism 2 GRAM NEGATIVE BACILLI#2 COLONY COUNT 20,000 CFU/ml SENS SENSITIVITY TO FOLLOW Last 24 Hours Test 11/30/17 05:01 11/30/17 07:14 11/30/17 11:30 11/30/17 16:20 Sodium Level 137 mmol/L Potassium Level 4.9 mmol/L Chloride Level 104 mmol/L Carbon Dioxide Level 32 mmol/L Anion Gap 1.0 mmol/L Blood Urea Nitrogen 62 mg/dl Creatinine 2.08 mg/dl Est Creatinine Clear Calc Drug Dose 41.1 ml/min Estimated GFR () 29.5 Estimated GFR (Non- 25.4 BUN/Creatinine Ratio 29.9 Random Glucose 147 mg/dl Calcium Level 8.5 mg/dl Bedside Glucose 143 mg/dl 187 mg/dl 156 mg/dl Patient Name: LOC PADILLA Unit Number: [id number] Dictated: 11/29/171426 Transcribed: 11/29/171426 JRB Printed Date/Time: [~ rep prt dt]/[~ rep prt tm] [~ rep ct labl] - [~ rep ct ivnm] [facility] [address] [place] [address] Dictated: 11/29/171426 Transcribed: 11/29/171426 JRB Printed Date/Time: [~ rep prt dt]/[~ rep prt tm] [~ rep ct labl] - [~ rep ct ivnm] CHEST ONE VIEW PORTABLE HISTORY: 57 years-old Female ?hx PNA weight gain CHF acute weight gain with concern for congestive heart failure COMPARISON: Chest radiograph 11/09/2017, CT chest 11/02/2017 TECHNIQUE: Portable AP view of the chest FINDINGS: Cardiac silhouette is enlarged, unchanged. The lungs are hypoinflated with bronchovascular crowding and pulmonary vascular congestion. Atherosclerosis of the aorta. There is no pneumothorax or pleural effusion. Linear subsegmental perihilar and bibasilar opacities. No overt pulmonary edema. Degenerative changes are seen within the shoulders and spine. Patient obesity noted. Right-sided PICC appears unchanged. IMPRESSION: 1. Cardiomegaly with hypoinflation, bronchovascular crowding and mild pulmonary vascular congestion. 2. Subsegmental perihilar and bibasilar opacities favor atelectasis. The above report was generated using voice recognition software. It may contain grammatical, syntax or spelling errors. Electronically signed by: Napoleon Robert M.D. 11/29/2017 2:29 PM Dictated Date/Time: 11/29/2017 2:27 PM The status of this report is Signed. Draft = Not yet reviewed or approved by Radiologist. Signed = Reviewed and approved by Radiologist. <AttendingPhy></AttendingPhy> <FamilyPhy>[facility] [place]</FamilyPhy> < PrimaryPhy>[facility] [place]</PrimaryPhy> <UnitNumber>[id number]</UnitNumber> <VisitNumber>[id number]</VisitNumber> <PatientName>LOC PADILLA</ PatientName> <DateOfBirth>1960</DateOfBirth> <Location>[facility]</Location> < ServiceDate>11/29/17</ServiceDate> <MNE>ESINDI</MNE> <OrderingPhy>Jaz Braswell PA-C</OrderingPhy> <OrderingPhyMNE>f rep ord dr arias</OrderingPhyMNE> < DictatingPhyMNE>f rep dict dr arias</DictatingPhyMNE> <CCListMNE>f rep ct mne</ CCListMNE> <AdmittingPhyMNE>f pt admit dr arias</AdmittingPhyMNE> <AttendingPhyMNE >f pt attend dr arias</AttendingPhyMNE> <ConsultingPhyMNE>f pt consult dr arias</ConsultingPhyMNE> <FamilyPhyMNE>f pt fam dr arias</FamilyPhyMNE> <OtherPhyMNE>f pt other dr arias</OtherPhyMNE> < PrimaryPhyMNE>f pt prim care dr arias</PrimaryPhyMNE> <ReferringPhyMNE>f pt referring dr arias</ReferringPhyMNE> Assessment & Plan 57-year-old morbidly obese female with multiple medical comorbidities, noncompliance with therapies and follow-up, now admitted with what appears to be fluid overload. Patient with chronic indwelling Lerner catheter, and suspect that culture represents chronic colonization. Would recommend changing Lerner catheter, await further culture results to determine need for additional antibiotics. Wounds have been appropriately healing, weight wound care consultation for further follow-up. Will follow.
[2017-11-30] MEDS: DOCUSATE SODIUM 100 MG CAP PO SCH (21:49)
[2017-11-30] MEDS: TRAZODONE HCL 50 MG TAB PO SCH (21:49)
--- NOTE | 2017-11-30 22:00 | Progress Note ---
Subjective Date of Service: Nov 30, 2017. Subjective Pt evaluation today including: conversation w/ patient, physical exam, chart review, lab review, review of studies (echo, cxr), review of inpatient medication list Pain: multiple areas (legs etc) PO Intake: normal Voiding: rodriguez catheter in place patient c/o excessive weight gain in her abdomen and to a lesser extent in her legs she is quite frustrated by the weight gain and feels that "no one at [facility] knows what they are doing" she would like to go to a different SNF after this hospitalization she continues with cough but largely nonproductive and denies any orthopnea in fact she prefers to not have her head of the bed up she asks multiple times "what are you going to do doc?" states that her wounds on her legs are improved and the sacral decub is also better Problem List Medical Problems: (1) Acute renal disease Status: Acute (2) Acute renal failure Status: Acute (3) ELIZABETH (acute kidney injury) Status: Acute (4) ELIZABETH (acute kidney injury) Status: Acute (5) Anemia Status: Acute (6) Cellulitis Status: Acute (7) Cellulitis of both lower extremities Status: Acute (8) CHF (congestive heart failure) Status: Acute (9) CHF (congestive heart failure) Status: Acute (10) Dehydration Status: Acute (11) Fluid overload Status: Acute (12) Hypoxia Status: Acute (13) Pickwickian syndrome Status: Acute (14) Pneumonia Status: Acute (15) Respiratory failure Status: Acute (16) Sacral decubitus ulcer, stage III Status: Acute (17) UTI (urinary tract infection) Status: Acute (18) UTI (urinary tract infection) due to urinary indwelling Rodriguez catheter Status: Acute Review of Systems Constitutional: No fever, No chills Respiratory: + cough, + dyspnea on exertion, No sputum, No wheezing Cardiac: + edema, No chest pain, No orthopnea Abdomen: No pain, No nausea, No vomiting Objective Vital Signs Date Time Temp Pulse Resp B/P (MAP) Pulse Ox O2 Delivery O2 Flow Rate FiO2 11/30/17 19:43 69 20 90 Mask 6.0 11/30/17 16:00 Mask 6.0 11/30/17 10:00 90 Mask 6.0 11/30/17 07:12 36.6 90 20 97/62 (74) 11/30/17 07:11 63 20 90 Mask 6.0 11/30/17 02:31 63 20 93 Mask 6.0 11/30/17 00:30 Oxymask 6.0 Physical Exam General Appearance: no apparent distress, + obese ENT: pharynx normal Neck: + pertinent finding (due to neck size unable to assess for JVD) Respiratory/Chest: no respiratory distress, no accessory muscle use, + decreased breath sounds (bases), + rales (minimally heard at the bases) Cardiovascular: regular rate, rhythm, no gallop, + systolic murmur (08/24 LSB) Abdomen: normal bowel sounds, no organomegaly, + distended (with ascites vs body wall edema - generalized; flanks with considerable body wall edema/ dependent edema), + hernia (umbilical reducible; ?ventral hernia as well vs diasthesis recti?) Extremities: + pedal edema (1-2+ b/l from ankles to the hips) Neurologic/Psychiatric: alert, oriented x 3, + pertinent finding (agitated) Skin: + pertinent finding (dressings in place b/l feet; PICC line RUE w/o drainage/redness) Laboratory Results Last 24 Hours Test 11/30/17 05:01 11/30/17 07:14 11/30/17 11:30 11/30/17 16:20 Sodium Level 137 mmol/L Potassium Level 4.9 mmol/L Chloride Level 104 mmol/L Carbon Dioxide Level 32 mmol/L Anion Gap 1.0 mmol/L Blood Urea Nitrogen 62 mg/dl Creatinine 2.08 mg/dl Est Creatinine Clear Calc Drug Dose 41.1 ml/min Estimated GFR () 29.5 Estimated GFR (Non- 25.4 BUN/Creatinine Ratio 29.9 Random Glucose 147 mg/dl Calcium Level 8.5 mg/dl Bedside Glucose 143 mg/dl 187 mg/dl 156 mg/dl Assessment and Plan 57yo female - 1. acute/chronic hypoxic respiratory failure - acute component due to worsening CHF. See below. 2. acute/chronic systolic/diastolic CHF along with severe acute/chronic right- sided heart failure - echo results reviewed - her EF is much worse than the previous echo. Her weight is up at least 10kg in comparison to her previous hospital d/c date of 11/14/17. The weight gain could be more. Change bumex PO to IV and give 2mg BID. Cont aldactone. With her worsening LV function would benefit from beta lety, if her BP could tolerate. Poor candidate for ANA LUISA or ARB due to CKD. In light of her severe pulmonary HTN and severe biventricular failure will ask cardiology to see in am. She historically has been exceptionally challenging to manage due to a number of factors including poor self-care, poor compliance w/ diet, etc. She could have CAD contributing to her LV dysfunction as she has wall motion abnormalities on echo today. VERY, VERY poor candidate for cath in light of CKD, etc. Again will d/w cardiology. 3. severe pulmonary HTN - has had pulmonary HTN for some time but it has worsened. I am uncertain if she would be a candidate for vasodilator therapy ( sildenafil, etc) for her pulmonary HTN. I presume her pulmonary HTN is from long-standing, untreated ROHAN? Prior VTE? Other? Again will involve cardiology in the am. 4. ROHAN - poor compliance and lack of desire by patient to treat with BIPAP. Cont NC O2. 5. COPD - does not appear to be in exacerbation at this time. 6. CKD stage 3-4 - creatinine stable, daily BMP. 7. DVT proph - has IVC filter in place along with lovenox 30mg BID. 8. chronic rodriguez catheter usage - will need to check to see when this is due for exchange. 9. morbid obesity with BMI 48 10. h/o sacral decubitus ulcer - by report this has improved. Wound Care has been consulted. Special mattress/bed has been ordered for her. 11. b/l foot/heel/achilles ulcers - Wound Care consultation requested. By report these have healed. 12. ?cirrhosis - CT abd/pelvis in October 2017 showed cirrhotic changes. Suspect this would be from ALFREDO. Certainly cirrhosis could be playing a role in her volume overload state. 13. T2DM - control sufficient today w/ lantus. 14. positive troponin - likely myocardial demand ischemia in setting of acute/ chronic CHF. Nothing to do at this time. In my clinical judgment this beneficiary meets acute admission criteria, established by [facility], that includes being hospitalized through two midnights. Change to full admission status. Continued [facility] stay due to: voiding difficulties, ambulation difficulties, multiple IV medications needed Discharge planning: prison facility
[2017-12-01 02:08] VITALS: PULSE 101; O2SAT 92
[2017-12-01] MEDS: ALBUT/IPRATROP 3MG/0.5MG NEB 3 ML VIAL INH SCH ×3 (02:08→18:51)
[2017-12-01 05:48] LABS: CALCIUM 8.2 mg/dl (8.5-10.1); CREATININE 2.07 mg/dl (0.60-1.20); POTASSIUM 4.8 mmol/L (3.5-5.1)
[2017-12-01 07:25] VITALS: BP 93/63; PULSE 111; TEMP 36.7; O2SAT 90
[2017-12-01] MEDS: CEROVITE ADV FORMULA TAB PO SCH (08:00)
[2017-12-01] MEDS: SPIRONOLACTONE 25 MG TAB PO SCH (08:00)
[2017-12-01] MEDS: GUAIFENESIN SUGAR FREE 200 MG/10 ML UDC PO SCH ×4 (08:00→21:16)
[2017-12-01] MEDS: ENOXAPARIN 30 MG/0.3 ML SYR SQ SCH ×2 (09:00→21:00)
[2017-12-01] MEDS: INSULIN ASPART 100 UNITS/ML 3 ML PEN SC SCH ×4 (10:22→22:50)
[2017-12-01] MEDS: INSULIN GLARGINE SOLOSTAR 100 UNITS/ML 3 ML PEN SQ SCH (10:23)
[2017-12-01] MEDS: BUMETANIDE IV 2 MG in SYRINGE 0 ML IV SCH ×2 (10:38→17:18)
[2017-12-01 11:00] VITALS: O2SAT 90
[2017-12-01 11:41] VITALS: PULSE 91; O2SAT 91
[2017-12-01] MEDS: ALBUT/IPRATROP 3MG/0.5MG NEB 3 ML VIAL INH PRN (11:41)
[2017-12-01] MEDS: OXYCODONE HCL IR 5 MG TAB (IMMEDIATE RELEASE) PO PRN (13:22)
[2017-12-01] MEDS ORDERED: METOLAZONE 5 MG TAB PO ONE (16:00)
--- NOTE | 2017-12-01 16:05 | CARDIOLOGY CONSULTATION ---
DATE OF CONSULTATION: 12/01/2017 CONSULTATION REQUESTED BY: Dr. Giraldo. REASON FOR CONSULTATION: Heart failure. HISTORY OF PRESENT ILLNESS: Ms. Watkins is a 57-year-old woman known to me from prior admissions with a history of primarily right-sided heart failure, severe pulmonary hypertension who was readmitted in the setting of volume overload and acute on chronic heart failure. The patient has multiple recent hospital admissions. She was most presently residing at [facility]. She stated that there she has been getting inadequate meals with excess salt and was having trouble with her diuretics and as a result she is up 160 pounds from her baseline. With that she has difficulty moving and is concerned about her abdominal girth. She denies any preceding chest pain, palpitations. Denies any recent fevers or chills. States that the wounds in her lower extremities are improving. The patient was admitted on 11/29/2017 in the setting of volume overload. She has been placed back on Bumex 1 mg b.i.d., which has subsequently been increased to 2 mg b.i.d. With that she has had minimal urine output and essentially in that event. Today, patient states that her breathing is stable but remains very concerned about her current level of swelling. PAST MEDICAL HISTORY: 1. Chronic heart failure, primarily right-sided heart failure. 2. Cor pulmonale with severe pulmonary hypertension. 3. Severe obstructive sleep apnea. 4. Morbid obesity. 5. Stage IV chronic kidney disease. 6. Prior lower extremity DVT with IVC filter. 7. Type 2 diabetes. 8. History of chronic venous ulcerations. 9. History of decubitus ulcerations. 10. Severe COPD, on home oxygen. 11. Chronic indwelling Lerner. 12. Prior left nondisplaced medial femoral condyle fracture. FAMILY HISTORY: Reports history of cardiac problems in multiple family members. Denies sudden cardiac or heart failure. SOCIAL HISTORY: She is a lifelong smoker with greater than [id number]-cpys history. REVIEW OF SYSTEMS: Ten-point review of systems was reviewed and otherwise negative unless stated in HPI. HOME MEDICATIONS: Include Tylenol, bisacodyl, Bumex 1 mg t.i.d., buspirone, clotrimazole, docusate, ergocalciferol, fluconazole, glimepiride, guaifenesin, imipenem, aspart glargine, DuoNeb, milk of magnesia, multivitamins, oxycodone, spironolactone 25 mg 2 times a week, trazodone. PHYSICAL EXAMINATION: VITAL SIGNS: Temperature 36.7, pulse is 91. She is breathing 18 times a minute. Her blood pressure 93/63. She is satting 91% on 6 L mask. GENERAL: The patient is morbidly obese, but no acute distress. HEENT: Her sclerae are anicteric. Oropharynx is clear. NECK: Obese, unable to assess JVD. LUNGS: She has distant breath sounds but no appreciable rales. HEART: Distant heart sounds. She is regular with occasional premature beats. No appreciable murmurs. ABDOMEN: Morbidly obese. She has abdominal wall 2+ edema up to her belly button. Has general tenderness to palpation. Positive bowel sounds. EXTREMITIES: Lukewarm. She has no appreciable DP or PT pulses. Prior ulcerations of her heels are wrapped. She has limited capillary refill bilaterally. There is a 2+ lower extremity edema up to the thighs bilaterally. NEUROLOGIC: Nonfocal. PSYCHIATRIC: Alert, oriented, and appropriate. LABORATORY DATA: Sodium 134, potassium 4.8, BUN 66, creatinine of 2.1, magnesium of 1.9. White blood cell count of 6.8, hemoglobin of 10.1, platelets of 252. Chest x-ray showed cardiomegaly with mild pulmonary congestion and atelectasis. Echocardiogram completed yesterday was technically difficult, but showed grossly normal LV size and function. There was what appeared to be moderate LV dysfunction, EF of 35%-40% with some inferolateral hypokinesis; septum was flat with RV pressure and volume overload. RV was severely dilated with moderate RV dysfunction. There was mild mitral regurgitation. There was [id number] TR with severe pulmonary hypertension, estimated PASP of 80-85. EKG showed sinus rhythm with occasional PVCs. There was right axis deviation and no significant ST abnormalities. IMPRESSION AND PLAN: 1. Nzlia-rd-xkvoyhn heart failure. 2. Cor pulmonale with severe pulmonary hypertension. 3. Stage IV chronic kidney disease. 4. Morbid obesity with obstructive sleep apnea. 5. Severe chronic obstructive pulmonary disease, on oxygen dependent. 6. Type 2 diabetes. 7. Venous ulcerations. 8. Chronic indwelling Lerner. Mrs. Watkins is here with gross volume overload in the setting of her cor pulmonale, severe pulmonary hypertension, and RV dysfunction. She is questionably compliant with dietary recommendations and diuretics despite being at [facility]. At present, she is on Bumex 2 mg b.i.d. with limited urine output. She has previously been responsive to Zaroxolyn in the past and would recommend restarting; will give 5 mg with evening dose of Bumex today. We will follow up on urine output and electrolytes in the morning with likely additional doses if tolerates medication today. Long-term outlook and options for advanced therapy are poor in non-compliant patient with WHO group III, functional class IV pulmonary hypertension, now with pulmonary arterial systolic pressures >80s and progressive RV dysfunction. Hopeful can again improve current acute volume status with increasing diuretics alone. Will continue to follow. Please call with questions. MTDD
[2017-12-01] MEDS ORDERED: COUGH DROP (SUGAR FREE) LOZ 24 LOZ/1 BOX LOZ ONE (18:31)
[2017-12-01 18:53] VITALS: PULSE 83; O2SAT 90
--- NOTE | 2017-12-01 21:18 | Progress Note ---
Subjective Date of Service: Dec 01, 2017. Subjective Pt evaluation today including: conversation w/ patient, physical exam, chart review, lab review, conversation w/ [employer]iztalk consultant (cardiology), review of inpatient medication list Pain: numerous locations - back, legs, etc PO Intake: 100% of meals consumed Voiding: rodriguez catheter in place Visited 2x's today with patient. First was in the AM - I was accompanied by the primary RN and the MA. During the encounter the patient was verbally abusive to the staff -- she was constantly critiquing the care they were providing, using profanity at times, telling them they were doing their jobs wrong, etc. I told the patient multiple times she should stop yelling at the staff immediately and that she was being disrespectful. She denied she was yelling and denied that she was being disrespectful. She said that "a few nurses know what they are doing but most don't know what they are doing." I reassured her that all staff members, physicians, etc were here to improve her health and make her feel better. Further, I told her that it would be easier to provide the care she needed if she was more respectful to all staff members. She admitted that her chronic pain made her feel terrible. She reported being on oxycodone for several years. Despite asking her to be respectful she continued to yell at the nurses. I visited her a 2nd time later in the day when Dr. Aguayo performed his assessment. Problem List Medical Problems: (1) Acute renal disease Status: Acute (2) Acute renal failure Status: Acute (3) ELIZABETH (acute kidney injury) Status: Acute (4) ELIZABETH (acute kidney injury) Status: Acute (5) Anemia Status: Acute (6) Cellulitis Status: Acute (7) Cellulitis of both lower extremities Status: Acute (8) CHF (congestive heart failure) Status: Acute (9) CHF (congestive heart failure) Status: Acute (10) Dehydration Status: Acute (11) Fluid overload Status: Acute (12) Hypoxia Status: Acute (13) Pickwickian syndrome Status: Acute (14) Pneumonia Status: Acute (15) Respiratory failure Status: Acute (16) Sacral decubitus ulcer, stage III Status: Acute (17) UTI (urinary tract infection) Status: Acute (18) UTI (urinary tract infection) due to urinary indwelling Rodriguez catheter Status: Acute Review of Systems Constitutional: No fever Respiratory: + cough, + shortness of breath, + dyspnea on exertion, No sputum, No wheezing Cardiac: + orthopnea, + edema, No chest pain, No PND Abdomen: + pain (mild), No nausea, No vomiting, No diarrhea, No constipation Musculoskeletal: + see HPI Objective Vital Signs Date Time Temp Pulse Resp B/P (MAP) Pulse Ox O2 Delivery O2 Flow Rate FiO2 12/01/17 18:53 83 22 90 Mask 6.0 12/01/17 11:41 91 18 91 Mask 6.0 12/01/17 11:00 90 Mask 6.0 12/01/17 07:25 36.7 111 20 93/63 (73) 90 12/01/17 02:08 101 20 92 Mask 6.0 12/01/17 00:00 Oxymask 6.0 Physical Exam General Appearance: + mild distress (due to pain - if she moves in the bed), + obese ENT: pharynx normal Neck: + pertinent finding (unable to assess JVD due to neck size) Respiratory/Chest: no respiratory distress, no accessory muscle use, + decreased breath sounds (bases), + rales (minimal bases) Cardiovascular: no gallop, no murmur, + tachycardia Abdomen: normal bowel sounds, no organomegaly, + hernia, + pertinent finding ( massive body wall edema + ascites; distended; mildly tender in various locations ; stasis changes of lower abdominal wall pannus) Extremities: + swelling (2+ b/l to the thighs) Neurologic/Psychiatric: alert, oriented x 3, + pertinent finding (quite agitated) Skin: + pertinent finding (after dressings were removed - 3 separate ulcers on right foot - there is a large linear pressure ulcer over the achilles with overlying eschar and mild yellow exudate at periphery; there are 2 ulcerations on the heel, medially and laterally, both w/ eschar; left foot with superficial pre-ulcer/ulcer on heel; feet quite dry b/l) Comments: vascular - pulses, both feet, 1-2+ b/l Laboratory Results Last 24 Hours Test 12/01/17 04:57 12/01/17 07:13 12/01/17 11:21 Sodium Level 134 mmol/L Potassium Level 4.8 mmol/L Chloride Level 101 mmol/L Carbon Dioxide Level 30 mmol/L Anion Gap 3.0 mmol/L Blood Urea Nitrogen 66 mg/dl Creatinine 2.07 mg/dl Est Creatinine Clear Calc Drug Dose 40.2 ml/min Estimated GFR () 29.6 Estimated GFR (Non- 25.6 BUN/Creatinine Ratio 32.0 Random Glucose 180 mg/dl Calcium Level 8.2 mg/dl Magnesium Level 1.9 mg/dl Bedside Glucose 171 mg/dl 201 mg/dl Assessment and Plan 57yo female - 1. acute/chronic hypoxic respiratory failure - acute component due to worsening CHF. See below. 2. acute/chronic systolic/diastolic CHF along with severe acute/chronic right- sided heart failure (cor pulmonale)- Her weight is up at least 10kg in comparison to her previous hospital d/c date of 11/14/17. The weight gain could be more. She has had little diuresis with bumex 2mg IV BID and aldactone. With her worsening LV function would benefit from beta lety, if her BP could tolerate. Poor candidate for ANA LUISA or ARB due to CKD. In light of her severe pulmonary HTN and severe biventricular failure I asked Dr. Aguayo to see today. Will try metazolone before evening bumex tonight and follow clinical response. If no improvement - inotrope with a bumex drip?? Ultimately defer to cardiology. She historically has been exceptionally challenging to manage due to a number of factors including poor self-care, poor compliance w/ diet, etc. Prognosis is very poor. 3. severe pulmonary HTN - has worsened over time. I am uncertain if she would be a candidate for vasodilator therapy (sildenafil, etc) for her pulmonary HTN. I presume her pulmonary HTN is from long-standing, untreated ROHAN. Defer recommendations to cardiology. 4. ROHAN - poor compliance and lack of desire by patient to treat with BIPAP. Cont NC O2. 5. COPD - does not appear to be in exacerbation at this time. 6. CKD stage 3-4 - creatinine stable today, daily BMP. 7. DVT proph - has IVC filter in place along with lovenox 30mg BID. 8. chronic rodriguez catheter usage - will need to check to see when this is due for exchange. 9. morbid obesity with BMI 48/49 10. h/o sacral decubitus ulcer - by report this has improved. Wound Care has been consulted. Special mattress/bed has been ordered for her. 11. b/l foot/heel/achilles ulcers - these appear stable today; wound care consult pending. 12. ?cirrhosis - CT abd/pelvis in October 2017 showed cirrhotic changes. Suspect this would be from ALFREDO. Certainly cirrhosis could be playing a role in her volume overload state. 13. T2DM - control sufficient. 14. positive troponin - likely myocardial demand ischemia in setting of acute/ chronic CHF 15. chronic pain syndrome - try increasing oxycodone to 10mg q4h prn. Will ask pain management to weigh in on her pain issues - trial of long-acting narcotic? defer to pain. I have asked the nursing supervisor cutting and boning to investigate what can be done about Ms. Watkins's behavior as her language towards staff is verbally abusive and unacceptable. total time today between 2 visits - 60 minutes Continued [facility] stay due to: inadequate oral pain control, voiding difficulties , ambulation difficulties, multiple IV medications needed, home environment unsafe for pt Discharge planning: residential facility
[2017-12-01] MEDS: TRAZODONE HCL 50 MG TAB PO SCH (22:49)
[2017-12-01] MEDS: DOCUSATE SODIUM 100 MG CAP PO SCH (22:49)
[2017-12-01 22:50] VITALS: BP 123/75; PULSE 81
[2017-12-02] VITALS (7 sets, daily range): BP systolic 104–150; BP diastolic 63–81; PULSE 70–104; TEMP 36.5; O2SAT 90–94
[2017-12-02] MEDS: ALBUT/IPRATROP 3MG/0.5MG NEB 3 ML VIAL INH SCH ×4 (01:59→19:44)
[2017-12-02] MEDS: CEROVITE ADV FORMULA TAB PO SCH (08:00)
[2017-12-02] MEDS: GUAIFENESIN SUGAR FREE 200 MG/10 ML UDC PO SCH ×4 (08:00→21:24)
[2017-12-02 08:23] LABS: HEMATOCRIT 32.9 % (37-47); HEMOGLOBIN 9.9 g/dL (12.0-16.0); MEAN CELL VOLUME 89.6 fL (80-100); MEAN CORPUSCULAR HGB CONC 30.1 g/dl (32-36); PLATELET COUNT 205 K/uL (130-400); RED CELL DISTRIBUTION WIDTH CV 20.9 % (11.5-14.5); WHITE BLOOD COUNT 8.88 K/uL (4.8-10.8)
[2017-12-02 08:54] LABS: CREATININE 2.2 mg/dl (0.60-1.20); POTASSIUM 4.8 mmol/L (3.5-5.1)
[2017-12-02] MEDS: ENOXAPARIN 30 MG/0.3 ML SYR SQ SCH ×2 (09:00→21:00)
[2017-12-02] MEDS: FLUCONAZOLE 100 MG TAB PO SCH (09:15)
[2017-12-02] MEDS: SPIRONOLACTONE 25 MG TAB PO SCH (09:16)
[2017-12-02] MEDS: INSULIN ASPART 100 UNITS/ML 3 ML PEN SC SCH ×4 (09:17→22:00)
[2017-12-02] MEDS: INSULIN GLARGINE SOLOSTAR 100 UNITS/ML 3 ML PEN SQ SCH (09:18)
[2017-12-02] MEDS: BUMETANIDE IV 2 MG in SYRINGE 0 ML IV SCH ×2 (09:18→21:28)
[2017-12-02] MEDS ORDERED: METOLAZONE 5 MG TAB PO ONE (14:30)
--- NOTE | 2017-12-02 14:36 | Cardiology Follow-Up ---
Subjective Subjective Date of Service: Dec 02, 2017. Pt evaluation today including: conversation w/ patient, physical exam, chart review, lab review, review of studies, conversation w/ technical sales consultant, review of inpatient medication list Additional Details: No new symptoms today. Denies chest pain. Breathing at baseline. Modest urine output overnight. Problem List Medical Problems: (1) Acute renal disease Status: Acute (2) Acute renal failure Status: Acute (3) ELIZABETH (acute kidney injury) Status: Acute (4) ELIZABETH (acute kidney injury) Status: Acute (5) Anemia Status: Acute (6) Cellulitis Status: Acute (7) Cellulitis of both lower extremities Status: Acute (8) CHF (congestive heart failure) Status: Acute (9) CHF (congestive heart failure) Status: Acute (10) Dehydration Status: Acute (11) Fluid overload Status: Acute (12) Hypoxia Status: Acute (13) Pickwickian syndrome Status: Acute (14) Pneumonia Status: Acute (15) Respiratory failure Status: Acute (16) Sacral decubitus ulcer, stage III Status: Acute (17) UTI (urinary tract infection) Status: Acute (18) UTI (urinary tract infection) due to urinary indwelling Lerner catheter Status: Acute Review of Systems Constitutional: No fever Respiratory: + cough, + shortness of breath, + dyspnea on exertion, No sputum, No wheezing Cardiac: + orthopnea, + edema, No chest pain, No PND Breast: + see HPI Abdomen: + pain (mild), No nausea, No vomiting, No diarrhea, No constipation Musculoskeletal: + see HPI Objective Vital Signs Last Vital Signs Documentation Date Time Temp Pulse Resp B/P (MAP) Pulse Ox O2 Delivery O2 Flow Rate FiO2 12/02/17 14:08 102 20 90 Mask 6.0 12/02/17 07:02 36.5 106/63 (77) Physical Exam: General Appearance: + obese ENT: pharynx normal Neck: + pertinent finding (unable to assess JVD due to neck size) Respiratory/Chest: no respiratory distress, no accessory muscle use, + decreased breath sounds (bases), + rales (minimal bases) Cardiovascular: regular rate, rhythm, no gallop, no murmur Abdomen: normal bowel sounds, no organomegaly, + hernia, + pertinent finding ( massive body wall edema + ascites; distended; mildly tender in various locations ; stasis changes of lower abdominal wall pannus) Extremities: + swelling (2+ b/l to the thighs) Neurologic/Psychiatric: alert, oriented x 3 Skin: + pertinent finding (after dressings were removed - 3 separate ulcers on right foot - there is a large linear pressure ulcer over the achilles with overlying eschar and mild yellow exudate at periphery; there are 2 ulcerations on the heel, medially and laterally, both w/ eschar; left foot with superficial pre-ulcer/ulcer on heel; feet quite dry b/l) Lymphatic: no adenopathy Assessment and Plan 1. [id number] heart failure. 2. Cor pulmonale with severe pulmonary hypertension and RV dysfunction. 3. Stage IV chronic kidney disease. 4. Morbid obesity with obstructive sleep apnea. 5. Severe chronic obstructive pulmonary disease, on oxygen dependent. 6. Type 2 diabetes. 7. Venous ulcerations. 8. Chronic indwelling Lerner. Modest urine output yesterday despite addition of zaroxolyn. Appears perfused with persistent massive edema on exam. Renal function, electrolytes stable. -- Increase Bumex to 2mg TID today -- Additional Zaroxolyn 5mg today. Already received spironolactone. -- Plan for increasing loop diuretics tomorrow if urine output still limited. -- Will hold off on addition of ARB/beta-lety at present. Will follow. Continued [facility] stay due to: inadequate oral pain control, voiding difficulties , ambulation difficulties, multiple IV medications needed, home environment unsafe for pt Discharge planning: detention facility Medications: Current Inpatient Medications Medications (Trade) Dose Ordered Sig/Bruno Route Start Time Stop Time Status Last Admin Dose Admin Bumetanide (Bumex Tab) 2 mg BID17 PO 11/30/17 09:00 12/30/17 08:59 Future Hold Enoxaparin Sodium (Lovenox Inj) 30 mg Q12 SQ 11/29/17 21:00 12/29/17 20:59 11/30/17 10:02 30 MG Acetaminophen (Tylenol Tab) 650 mg Q4H PRN PO 11/29/17 18:30 12/29/17 18:29 Al Hydrox/Mg Hydrox/Simethicone (Maalox Max Susp) 15 ml Q4H PRN PO 11/29/17 18:30 12/29/17 18:29 Magnesium Hydroxide (Milk Of Magnesia Susp) 30 ml Q6H PRN PO 11/29/17 18:30 12/29/17 18:29 Polyethylene (Miralax Powder Packet) 17 gm DAILY PRN PO 11/29/17 18:30 12/29/17 18:29 Ondansetron HCl (Zofran Inj) 4 mg Q6H PRN IV 11/29/17 18:30 12/29/17 18:29 Insulin Aspart (novoLOG ASPART) SLIDING SCALE G... ACHS SC 11/29/17 21:00 12/29/17 20:59 12/02/17 13:30 6 UNITS Clotrimazole (Lotrimin 1% Crm) 1 appln Q12 PRN EXT 11/29/17 18:30 12/29/17 18:29 Docusate Sodium (coLACE CAP) 100 mg HS PO 11/29/17 21:00 12/29/17 20:59 Ergocalciferol (Vitamin D Cap) 50,000 interunit Fr@0900 PO 12/06/17 09:00 01/05/18 08:59 Fluconazole (Diflucan Tab) 100 mg Q2D@0900 PO 11/30/17 09:00 12/10/17 08:59 12/02/17 09:15 100 MG Heparin Sodium (Porcine) (Heparin 10 Unit/ ml 5 ml Flush) 5 ml BID FLUSH 11/29/17 20:00 12/29/17 20:59 12/02/17 09:16 5 ML Insulin Glargine (Lantus Solostar Pen) 10 units QAM SQ 11/30/17 08:00 12/30/17 08:59 12/02/17 09:18 10 UNITS Albuterol/ Ipratropium (Duoneb) 3 ml Q4H PRN INH 11/29/17 18:30 12/29/17 18:29 12/01/17 11:41 3 ML Albuterol/ Ipratropium (Duoneb) 3 ml Q6R INH 11/29/17 21:00 12/29/17 20:59 12/02/17 14:06 3 ML Multivitamins/ Minerals (Multivitamin W/ Minerals Tab) 1 tab DAILY PO 11/30/17 08:00 12/30/17 08:59 Spironolactone (Aldactone Tab) 25 mg DAILY PO 11/30/17 08:00 12/30/17 08:59 12/02/17 09:16 25 MG Trazodone HCl (Desyrel Tab) 25 mg HS PO 11/29/17 21:00 12/29/17 20:59 Bisacodyl (Dulcolax Supp) 10 mg DAILY PRN MI 11/29/17 18:30 12/29/17 18:29 Buspirone HCl (Buspar Tab) 5 mg Q12 PRN PO 11/29/17 18:30 12/29/17 18:29 Guaifenesin (Robitussin Sugar Free Syrup) 200 mg QID PO 11/29/17 20:00 12/29/17 20:59 Miscellaneous Information (Order Awaiting Action) 1 ea QS N/A 11/30/17 00:00 12/30/17 00:00 Miscellaneous (Iv Fluids Completed) 1 ea PRN PRN N/A 11/29/17 19:15 11/29/18 19:14 Miconazole Nitrate (Desenex Powder) 1 appln UD PRN EXT 11/30/17 19:00 12/30/17 18:59 Oxycodone HCl (Roxicodone Immediate Rel Tab) 10 mg Q4H PRN PO 12/01/17 11:15 12/13/17 18:29 12/01/17 13:22 10 MG Bumetanide 2 mg/ Syringe 8 ml @ 4 mls/min TID IV 12/02/17 20:00 12/30/17 09:14 UNV Bumetanide 2 mg/ Syringe 8 ml @ 4 mls/min ONE ONCE IV 12/02/17 15:30 12/02/17 15:31 UNV Metolazone (Zaroxolyn Tab) 5 mg NOW ONCE PO 12/02/17 14:30 12/02/17 14:31 UNV Lab Results: 12/02/17 08:12 12/02/17 08:12 Test 12/02/17 08:12 12/02/17 12:03 Red Blood Count 3.67 M/uL (4.2-5.4) Mean Corpuscular Volume 89.6 fL (80-100) Mean Corpuscular Hemoglobin 27.0 pg (25-34) Mean Corpuscular Hemoglobin Concent 30.1 g/dl (32-36) RDW Standard Deviation 69.0 fL (36.4-46.3) RDW Coefficient of Variation 20.9 % (11.5-14.5) Mean Platelet Volume 10.0 fL (7.4-10.4) Anion Gap 6.0 mmol/L (3-11) Est Creatinine Clear Calc Drug Dose 38.8 ml/min Estimated GFR () 27.5 Estimated GFR (Non- 23.8 BUN/Creatinine Ratio 29.9 (10-20) Calcium Level 8.0 mg/dl (8.5-10.1) Magnesium Level 1.9 mg/dl (1.8-2.4) Bedside Glucose 209 mg/dl (70-90)
[2017-12-02] MEDS ORDERED: BUMETANIDE IV 2 MG in SYRINGE 0 ML IV ONE (15:30)
[2017-12-02] MEDS: DICLOFENAC SOD 1% GEL 100 GM TUBE EXT SCH (21:28)
[2017-12-02] MEDS: DOCUSATE SODIUM 100 MG CAP PO SCH (21:28)
[2017-12-02] MEDS: TRAZODONE HCL 50 MG TAB PO SCH (22:00)
[2017-12-03] VITALS (10 sets, daily range): BP systolic 103–110; BP diastolic 64–68; PULSE 80–115; TEMP 36.4–36.8; O2SAT 90–96
--- NOTE | 2017-12-03 00:28 | Progress Note ---
Subjective Date of Service: Dec 02, 2017. 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 a "care plan" was written up and signed by the patient she denies any change in her respiratory status has chronic right shoulder/ right upper back discomfort Problem List Medical Problems: (1) Acute renal disease Status: Acute (2) Acute renal failure Status: Acute (3) ELIZABETH (acute kidney injury) Status: Acute (4) ELIZABETH (acute kidney injury) Status: Acute (5) Anemia Status: Acute (6) Cellulitis Status: Acute (7) Cellulitis of both lower extremities Status: Acute (8) CHF (congestive heart failure) Status: Acute (9) CHF (congestive heart failure) Status: Acute (10) Dehydration Status: Acute (11) Fluid overload Status: Acute (12) Hypoxia Status: Acute (13) Pickwickian syndrome Status: Acute (14) Pneumonia Status: Acute (15) Respiratory failure Status: Acute (16) Sacral decubitus ulcer, stage III Status: Acute (17) UTI (urinary tract infection) Status: Acute (18) UTI (urinary tract infection) due to urinary indwelling Rodriguez catheter Status: Acute Review of Systems Constitutional: No fever Respiratory: + cough, + shortness of breath, No sputum Cardiac: + orthopnea, No chest pain Abdomen: No pain Objective Vital Signs Date Time Temp Pulse Resp B/P (MAP) Pulse Ox O2 Delivery O2 Flow Rate FiO2 12/02/17 19:44 96 20 92 Mask 6.0 12/02/17 16:48 Oxymask 6.0 12/02/17 15:03 102 20 104/64 (77) 90 Oxymask 6.0 12/02/17 14:08 102 20 90 Mask 6.0 12/02/17 08:00 90 Nasal Cannula 12/02/17 07:02 36.5 104 18 106/63 (77) 90 Nasal Cannula 2.0 12/02/17 06:59 36.5 70 18 150/81 (104) 94 2.0 12/02/17 06:07 82 22 92 Mask 6.0 12/01/17 22:50 81 123/75 (91) Physical Exam General Appearance: no apparent distress, + obese ENT: pharynx normal Neck: + pertinent finding (unable to assess for JVD due to large neck size) Respiratory/Chest: no respiratory distress, no accessory muscle use, + decreased breath sounds (bases), + pertinent finding (course BS b/l with decreased BS at the bases ) Cardiovascular: regular rate, rhythm, no gallop, no murmur (nothing obvious ), + tachycardia (borderline tachy) Abdomen: + pertinent finding (anasarca, flanks with severe edema, BS+, NT, umbilical hernia present & reducible, obese, no HSM) Extremities: + pedal edema, + swelling (no change from prior exam) Neurologic/Psychiatric: alert, oriented x 3 Skin: + pertinent finding (dressings on feet not removed today) Comments: musculo - right shoulder deformity Laboratory Results Last 24 Hours Test 12/02/17 07:36 12/02/17 08:12 12/02/17 12:03 12/02/17 17:46 Bedside Glucose 170 mg/dl 209 mg/dl 158 mg/dl White Blood Count 8.88 K/uL Red Blood Count 3.67 M/uL Hemoglobin 9.9 g/dL Hematocrit 32.9 % Mean Corpuscular Volume 89.6 fL Mean Corpuscular Hemoglobin 27.0 pg Mean Corpuscular Hemoglobin Concent 30.1 g/dl RDW Standard Deviation 69.0 fL RDW Coefficient of Variation 20.9 % Platelet Count 205 K/uL Mean Platelet Volume 10.0 fL Sodium Level 137 mmol/L Potassium Level 4.8 mmol/L Chloride Level 100 mmol/L Carbon Dioxide Level 30 mmol/L Anion Gap 6.0 mmol/L Blood Urea Nitrogen 66 mg/dl Creatinine 2.20 mg/dl Est Creatinine Clear Calc Drug Dose 38.8 ml/min Estimated GFR () 27.5 Estimated GFR (Non- 23.8 BUN/Creatinine Ratio 29.9 Random Glucose 170 mg/dl Calcium Level 8.0 mg/dl Magnesium Level 1.9 mg/dl Assessment and Plan 57yo female - 1. acute/chronic hypoxic respiratory failure - acute component due to worsening CHF. See below. 2. acute/chronic systolic/diastolic CHF along with severe acute/chronic right- sided heart failure (cor pulmonale)- Her weight is up at least 10kg in comparison to her previous hospital d/c date of 11/14/17. She has had little diuresis with bumex 2mg IV BID and aldactone along with metazolone. Thus, will increase bumex to 2mg IV TID. Cont metazolone prior to mid-day dose. Cont aldactone. BMP am. With her worsening LV function would benefit from beta lety, if her BP could tolerate. Poor candidate for ANA LUISA or ARB due to CKD. If no improvement - inotrope with a bumex drip?? Ultimately defer to cardiology. She historically has been exceptionally challenging to manage due to a number of factors including poor self-care, poor compliance w/ diet, etc. Prognosis is very poor. Appreciate cardiology consult. 3. severe pulmonary HTN - has worsened over time. I presume her pulmonary HTN is from long-standing, untreated ROHAN and/or VTE. 4. ROHAN - poor compliance and lack of desire by patient to treat with BIPAP. Cont NC O2. 5. COPD - does not appear to be in exacerbation at this time. 6. CKD stage 3-4 - creatinine stable. 7. DVT proph - has IVC filter in place along with lovenox 30mg BID. 8. chronic rodriguez catheter usage - exchanged 2 weeks ago. 9. morbid obesity with BMI 48/49 10. h/o sacral decubitus ulcer - managed by wound care. 11. b/l foot/heel/achilles ulcers - managed by wound care. 12. ?cirrhosis - CT abd/pelvis in October 2017 showed cirrhotic changes. Suspect this would be from ALFREDO. Certainly cirrhosis could be playing a role in her volume overload state. 13. T2DM - control sufficient. 14. positive troponin - likely myocardial demand ischemia in setting of acute/ chronic CHF 15. chronic pain syndrome - cont oxycodone 10mg q4h prn. Consider pain management consult. 16. right shoulder pain - voltaren gel qid; has chronic deformity appreciate consultation by service excellent and nursing supervisor litharge Continued [facility] stay due to: voiding difficulties, ambulation difficulties, multiple IV medications needed, home environment unsafe for pt Discharge planning: residential facility
[2017-12-03] MEDS: ALBUT/IPRATROP 3MG/0.5MG NEB 3 ML VIAL INH SCH ×4 (01:42→19:17)
[2017-12-03] MEDS: ALBUT/IPRATROP 3MG/0.5MG NEB 3 ML VIAL INH PRN ×2 (02:27→10:25)
[2017-12-03] MEDS: DICLOFENAC SOD 1% GEL 100 GM TUBE EXT SCH ×4 (08:45→21:27)
[2017-12-03] MEDS: CEROVITE ADV FORMULA TAB PO SCH (08:46)
[2017-12-03] MEDS: GUAIFENESIN SUGAR FREE 200 MG/10 ML UDC PO SCH ×4 (08:46→21:35)
[2017-12-03] MEDS: ENOXAPARIN 30 MG/0.3 ML SYR SQ SCH ×2 (08:47→21:00)
[2017-12-03] MEDS: BUMETANIDE IV 2 MG in SYRINGE 0 ML IV SCH (08:48)
[2017-12-03] MEDS: SPIRONOLACTONE 25 MG TAB PO SCH (08:49)
[2017-12-03] MEDS: INSULIN GLARGINE SOLOSTAR 100 UNITS/ML 3 ML PEN SQ SCH (08:54)
[2017-12-03] MEDS: INSULIN ASPART 100 UNITS/ML 3 ML PEN SC SCH ×4 (08:54→21:35)
--- NOTE | 2017-12-03 10:55 | Cardiology Follow-Up ---
Subjective Subjective Date of Service: Dec 03, 2017. Pt evaluation today including: conversation w/ patient, physical exam, chart review, lab review, review of studies, conversation w/ hospice care sales consultant, review of inpatient medication list Additional Details: No new complaints this morning. Denies new chest pain, breathing stable. Modest urine output overnight. Problem List Medical Problems: (1) Acute renal disease Status: Acute (2) Acute renal failure Status: Acute (3) ELIZABETH (acute kidney injury) Status: Acute (4) ELIZABETH (acute kidney injury) Status: Acute (5) Anemia Status: Acute (6) Cellulitis Status: Acute (7) Cellulitis of both lower extremities Status: Acute (8) CHF (congestive heart failure) Status: Acute (9) CHF (congestive heart failure) Status: Acute (10) Dehydration Status: Acute (11) Fluid overload Status: Acute (12) Hypoxia Status: Acute (13) Pickwickian syndrome Status: Acute (14) Pneumonia Status: Acute (15) Respiratory failure Status: Acute (16) Sacral decubitus ulcer, stage III Status: Acute (17) UTI (urinary tract infection) Status: Acute (18) UTI (urinary tract infection) due to urinary indwelling Lerner catheter Status: Acute Review of Systems Constitutional: No fever Respiratory: + cough, + shortness of breath, No sputum Cardiac: + orthopnea, No chest pain Breast: + see HPI Abdomen: No pain Musculoskeletal: + see HPI Objective Vital Signs Last Vital Signs Documentation Date Time Temp Pulse Resp B/P (MAP) Pulse Ox O2 Delivery O2 Flow Rate FiO2 12/03/17 10:25 113 20 92 Mask 6.0 12/03/17 07:42 36.4 103/68 (80) Physical Exam: General Appearance: no apparent distress, + obese ENT: pharynx normal Neck: + pertinent finding (unable to assess for JVD due to large neck size) Respiratory/Chest: no respiratory distress, no accessory muscle use, + decreased breath sounds (bases), + pertinent finding Cardiovascular: regular rate, rhythm (Distant heart sounds), no gallop, no murmur (nothing obvious ) Abdomen: + pertinent finding (anasarca, flanks with severe edema, BS+, NT, umbilical hernia present & reducible, obese, no HSM) Extremities: + pedal edema, + swelling (no change from prior exam) Neurologic/Psychiatric: alert, oriented x 3 Skin: + pertinent finding Lymphatic: no adenopathy Assessment and Plan 1. [id number] heart failure. 2. Cor pulmonale with severe pulmonary hypertension and RV dysfunction. 3. Stage IV chronic kidney disease. 4. Morbid obesity with obstructive sleep apnea. 5. Severe chronic obstructive pulmonary disease, on oxygen dependent. 6. Type 2 diabetes. 7. Venous ulcerations. 8. Chronic indwelling Lerner. Urine output improving but still modest despite increase to t.i.d. Bumex. Increased intake yesterday. On exam today is well perfused with persistent anasarca Repeat labs pending -- would plan on increasing Bumex to 3 milligrams t.i.d. -- continue with Zaroxolyn 5 milligrams and spironolactone today -- fluid restriction --if still not making progress today will consider loop diuretic infusion tomorrow -- Will hold off on addition of ARB/beta-lety at present. Will continue to follow Continued [facility] stay due to: voiding difficulties, ambulation difficulties, multiple IV medications needed, home environment unsafe for pt Discharge planning: [facility] facility Medications: Current Inpatient Medications Medications (Trade) Dose Ordered Sig/Bruno Route Start Time Stop Time Status Last Admin Dose Admin Bumetanide (Bumex Tab) 2 mg BID17 PO 11/30/17 09:00 12/30/17 08:59 Future Hold Enoxaparin Sodium (Lovenox Inj) 30 mg Q12 SQ 11/29/17 21:00 12/29/17 20:59 11/30/17 10:02 30 MG Acetaminophen (Tylenol Tab) 650 mg Q4H PRN PO 11/29/17 18:30 12/29/17 18:29 Al Hydrox/Mg Hydrox/Simethicone (Maalox Max Susp) 15 ml Q4H PRN PO 11/29/17 18:30 12/29/17 18:29 Magnesium Hydroxide (Milk Of Magnesia Susp) 30 ml Q6H PRN PO 11/29/17 18:30 12/29/17 18:29 Polyethylene (Miralax Powder Packet) 17 gm DAILY PRN PO 11/29/17 18:30 12/29/17 18:29 Ondansetron HCl (Zofran Inj) 4 mg Q6H PRN IV 11/29/17 18:30 12/29/17 18:29 Insulin Aspart (novoLOG ASPART) SLIDING SCALE G... ACHS SC 11/29/17 21:00 12/29/17 20:59 12/03/17 08:54 5 UNITS Clotrimazole (Lotrimin 1% Crm) 1 appln Q12 PRN EXT 11/29/17 18:30 12/29/17 18:29 Docusate Sodium (coLACE CAP) 100 mg HS PO 11/29/17 21:00 12/29/17 20:59 12/02/17 21:28 100 MG Ergocalciferol (Vitamin D Cap) 50,000 interunit Fr@0900 PO 12/06/17 09:00 01/05/18 08:59 Fluconazole (Diflucan Tab) 100 mg Q2D@0900 PO 11/30/17 09:00 12/10/17 08:59 12/02/17 09:15 100 MG Heparin Sodium (Porcine) (Heparin 10 Unit/ ml 5 ml Flush) 5 ml BID FLUSH 11/29/17 20:00 12/29/17 20:59 12/03/17 08:45 5 ML Insulin Glargine (Lantus Solostar Pen) 10 units QAM SQ 11/30/17 08:00 12/30/17 08:59 12/03/17 08:54 10 UNITS Albuterol/ Ipratropium (Duoneb) 3 ml Q4H PRN INH 11/29/17 18:30 12/29/17 18:29 12/03/17 10:25 3 ML Albuterol/ Ipratropium (Duoneb) 3 ml Q6R INH 11/29/17 21:00 12/29/17 20:59 12/03/17 07:24 3 ML Multivitamins/ Minerals (Multivitamin W/ Minerals Tab) 1 tab DAILY PO 11/30/17 08:00 12/30/17 08:59 Spironolactone (Aldactone Tab) 25 mg DAILY PO 11/30/17 08:00 12/30/17 08:59 12/03/17 08:49 25 MG Trazodone HCl (Desyrel Tab) 25 mg HS PO 11/29/17 21:00 12/29/17 20:59 Bisacodyl (Dulcolax Supp) 10 mg DAILY PRN OR 11/29/17 18:30 12/29/17 18:29 Buspirone HCl (Buspar Tab) 5 mg Q12 PRN PO 11/29/17 18:30 12/29/17 18:29 Guaifenesin (Robitussin Sugar Free Syrup) 200 mg QID PO 11/29/17 20:00 12/29/17 20:59 Miscellaneous Information (Order Awaiting Action) 1 ea QS N/A 11/30/17 00:00 12/30/17 00:00 Miscellaneous (Iv Fluids Completed) 1 ea PRN PRN N/A 11/29/17 19:15 11/29/18 19:14 Miconazole Nitrate (Desenex Powder) 1 appln UD PRN EXT 11/30/17 19:00 12/30/17 18:59 Oxycodone HCl (Roxicodone Immediate Rel Tab) 10 mg Q4H PRN PO 12/01/17 11:15 12/13/17 18:29 12/01/17 13:22 10 MG Bumetanide 2 mg/ Syringe 8 ml @ 4 mls/min TID IV 12/02/17 20:00 12/30/17 09:14 12/03/17 08:48 4 MLS/MIN Heparin Sodium (Porcine) (Heparin 10 Unit/ ml 5 ml Flush) 5 ml PRN PRN FLUSH 12/02/17 15:45 01/01/18 15:44 12/02/17 16:20 5 ML Diclofenac Sodium (Voltaren 1% Top Gel) 1 appln QID EXT 12/02/17 20:00 01/01/18 19:59 12/03/17 08:45 1 APPLN Lab Results: Test 12/03/17 07:37 12/03/17 10:12 Bedside Glucose 177 mg/dl (70-90)
[2017-12-03 10:59] LABS: CREATININE 2.04 mg/dl (0.60-1.20)
[2017-12-03 11:13] LABS: CALCIUM 8.2 mg/dl (8.5-10.1); POTASSIUM 4.3 mmol/L (3.5-5.1)
--- NOTE | 2017-12-03 12:11 | Hospitalist Progress Note ---
Hospitalist Progress Note Date of Service Dec 03, 2017. Subjective Pt evaluation today including: conversation w/ patient, conversation w/ cleaning validation consultant (Infectious disease) Voiding: rodriguez catheter in place No major complaints except being uncomfortable in the bed. Has a chronic cough. Feels a dry mouth. Constitutional: No fever Respiratory: No shortness of breath Cardiovascular: No chest pain All Other Systems: Reviewed and Negative Objective Vital Signs Date Time Temp Pulse Resp B/P (MAP) Pulse Ox O2 Delivery O2 Flow Rate FiO2 12/03/17 10:25 113 20 92 Mask 6.0 12/03/17 08:00 Oxymask 6.0 12/03/17 07:42 36.4 99 18 103/68 (80) 91 6.0 12/03/17 07:24 115 22 91 Mask 6.0 12/03/17 02:27 102 20 90 Mask 6.0 12/03/17 00:07 36.8 80 20 110/64 (79) 92 2.0 12/02/17 23:59 Oxymask 6.0 12/02/17 19:44 96 20 92 Mask 6.0 12/02/17 16:48 Oxymask 6.0 12/02/17 15:03 102 20 104/64 (77) 90 Oxymask 6.0 12/02/17 14:08 102 20 90 Mask 6.0 Physical Exam General Appearance: WD/WN, no apparent distress (Lying flat on her back), + obese Eyes: normal inspection, sclerae normal ENT: hearing grossly normal Neck: trachea midline Respiratory/Chest: no respiratory distress, no accessory muscle use, + decreased breath sounds (Throughout due to body habitus) Cardiovascular: regular rate, rhythm, + pertinent finding (Anasarca) Abdomen: normal bowel sounds, non tender, soft, + hernia (Umbilical that is reducible), + pertinent finding (Morbidly obese) Extremities: no calf tenderness Neurologic/Psychiatric: alert, normal mood/affect, oriented x 3 Skin: normal color, warm/dry, + rash (Multiple scabbed over areas that are excoriated on back and scars on upper chest) Laboratory Results Last 24 Hours Test 12/02/17 17:46 12/03/17 07:37 12/03/17 10:12 Bedside Glucose 158 mg/dl 177 mg/dl Sodium Level 134 mmol/L Potassium Level 4.3 mmol/L Chloride Level 99 mmol/L Carbon Dioxide Level 30 mmol/L Anion Gap 5.0 mmol/L Blood Urea Nitrogen 71 mg/dl Creatinine 2.04 mg/dl Est Creatinine Clear Calc Drug Dose 42.2 ml/min Estimated GFR () 30.2 Estimated GFR (Non- 26.0 BUN/Creatinine Ratio 34.8 Random Glucose 205 mg/dl Calcium Level 8.2 mg/dl Assessment and Plan 57yo female - 1. acute/chronic hypoxic respiratory failure - acute component due to worsening CHF. See below.-Stable -Continue supplemental O2 and diuresis 2. acute/chronic systolic/diastolic CHF along with severe acute/chronic right- sided heart failure (cor pulmonale)- Her weight is up at least 10kg in comparison to her previous hospital d/c date of 11/14/17. *Echo: Grossly normal LV size and wall thickness.Moderate LV dysfunction. LVEF 35-40%. Severe inferolateral hypokinesis. Flattened septum consistent with RV pressure/volume overload.Severely dilated RV with moderate RV dysfunction.Mild- to-moderate eccentric mitral regurgitation.Aortic valve sclerosis without stenosis.Moderate to severe TR.Severe pulmonary hypertension. Estimated PASP 80 -85 mmHg. Dilated IVC, estimated RA 15 mmHg. -Slow diuresis at this point -Increase Bumex to 3 mg IV 3 times daily -Continue Aldactone once daily -Make metolazone 5 mg a standing order with midday Bumex -Appreciate cardiology consultation -I's and O's, daily weights -Follow BMP am. -With her worsening LV function would benefit from beta lety, if her BP could tolerate. -Poor candidate for ANA LUISA or ARB due to CKD. -If no improvement -consider Bumex drip?? Ultimately defer to cardiology. She historically has been exceptionally challenging to manage due to a number of factors including poor self-care, poor compliance w/ diet, etc. -Prognosis is very poor. 3. severe pulmonary HTN - has worsened over time. I presume her pulmonary HTN is from long-standing, poorly treated ROHAN and/or VTE. 4. ROHAN - on BIPAP. Cont NC O2. She is willing to use BiPAP for at least several hours each night 5. COPD - does not appear to be in exacerbation at this time. 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 -Follow PRP 7. DVT proph - has IVC filter in place along with lovenox 30mg BID. 8. chronic rodriguez catheter usage/colonization with Pseudomonas and Klebsiella without true UTI-Rodriguez was exchanged 2 weeks ago but will exchange again today as per ID recommendations given Pseudomonas and Klebsiella -Discussed with ID-no antibiotics to be given at this time 9. morbid obesity with BMI 51 10. h/o sacral decubitus ulcer - managed by wound care. 11. b/l foot/heel/achilles ulcers - managed by wound care. 12. ?cirrhosis - CT abd/pelvis in October 2017 showed cirrhotic changes. Suspect this would be from ALFREDO. Certainly cirrhosis could be playing a role in her volume overload state. 13. T2DM - control sufficient. Hemoglobin A1c 7.8% this month -Accu-Cheks and basal bolus insulin 14. positive troponin - likely myocardial demand ischemia in setting of acute/ chronic CHF 15. chronic pain syndrome - cont oxycodone 10mg q4h prn. 16. right shoulder pain - voltaren gel qid; has chronic deformity 17. CHronic Enedina intertrigo-maintains chronic fluconazole therapy-says normally she is on it daily but since changing to every other day, has noticed return of her rashes -increase back to once daily dosing Disposition-will remain hospitalized for IV diuretics probably for many days PT/OT consultations prior to discharge back to [facility] appreciate consultation by service excellent and nursing art objects supervisor
[2017-12-03] MEDS: METOLAZONE 5 MG TAB PO SCH (13:04)
[2017-12-03] MEDS: BUMETANIDE IV 3 MG in SYRINGE 0 ML IV SCH ×2 (15:00→21:27)
[2017-12-03] MEDS: DOCUSATE SODIUM 100 MG CAP PO SCH (21:35)
[2017-12-03] MEDS: TRAZODONE HCL 50 MG TAB PO SCH (21:35)
[2017-12-04] VITALS (7 sets, daily range): BP systolic 99–109; BP diastolic 58–64; PULSE 78–112; TEMP 36.6; O2SAT 90–93
[2017-12-04] MEDS: ALBUT/IPRATROP 3MG/0.5MG NEB 3 ML VIAL INH SCH ×4 (01:43→20:30)
[2017-12-04] MEDS: OXYCODONE HCL IR 5 MG TAB (IMMEDIATE RELEASE) PO PRN ×2 (02:03→22:23)
[2017-12-04] MEDS: INSULIN ASPART 100 UNITS/ML 3 ML PEN SC SCH ×4 (08:30→20:31)
[2017-12-04 08:50] LABS: CALCIUM 8.2 mg/dl (8.5-10.1); CREATININE 2.03 mg/dl (0.60-1.20); POTASSIUM 4.2 mmol/L (3.5-5.1)
[2017-12-04] MEDS: BUMETANIDE IV 3 MG in SYRINGE 0 ML IV SCH ×3 (08:57→20:33)
[2017-12-04] MEDS: CEROVITE ADV FORMULA TAB PO SCH (08:58)
[2017-12-04] MEDS: DICLOFENAC SOD 1% GEL 100 GM TUBE EXT SCH ×4 (08:58→20:30)
[2017-12-04] MEDS: ENOXAPARIN 30 MG/0.3 ML SYR SQ SCH ×2 (08:58→20:31)
[2017-12-04] MEDS: GUAIFENESIN SUGAR FREE 200 MG/10 ML UDC PO SCH ×4 (08:58→20:30)
[2017-12-04] MEDS: SPIRONOLACTONE 25 MG TAB PO SCH (09:01)
[2017-12-04] MEDS: FLUCONAZOLE 100 MG TAB PO SCH (09:01)
--- NOTE | 2017-12-04 10:51 | Hospitalist Progress Note ---
Hospitalist Progress Note Date of Service Dec 04, 2017. Subjective Pt evaluation today including: conversation w/ patient Voiding: rodriguez catheter in place Diuresing well since increased dose of Diurex. Says her facemask is really bothering her nose-irritating, wants to cut off that part of the Oxymask. Refused having Rodriguez replaced yesterday. has a lot of dry skin and rash on face-she wants to pick off all the skin. Has c/o left eye whitish discharge for months, sometimes eye feels irritated All Other Systems: Reviewed and Negative Objective Vital Signs Date Time Temp Pulse Resp B/P (MAP) Pulse Ox O2 Delivery O2 Flow Rate FiO2 12/04/17 07:46 36.6 95 18 109/58 (75) 90 6.0 12/04/17 06:57 106 20 90 Mask 6.0 12/04/17 01:43 112 28 93 BiPAP/CPAP 6.0 12/04/17 00:21 36.6 98 20 99/58 (72) 92 6.0 12/04/17 00:00 Mask 6.0 12/03/17 23:25 107 96 96 12/03/17 23:06 100 95 12/03/17 20:00 Mask 6.0 12/03/17 19:17 101 20 92 Mask 6.0 12/03/17 16:00 Oxymask 6.0 12/03/17 15:02 36.7 99 18 104/65 (78) 90 12/03/17 14:16 99 20 91 Mask 6.0 Physical Exam General Appearance: no apparent distress, + obese Eyes: normal inspection, sclerae normal ENT: hearing grossly normal Neck: trachea midline Respiratory/Chest: no respiratory distress, no accessory muscle use, + decreased breath sounds (throughout due to body habitus) Cardiovascular: regular rate, rhythm, + pertinent finding (anasarca) Abdomen: normal bowel sounds, non tender, soft (and morbidly obese) Extremities: + swelling (3+ pitting edema to abdomen bilat) Neurologic/Psychiatric: alert, normal mood/affect, oriented x 3 Skin: warm/dry, + rash (face with perioral and forehead,scalp with mild erythema and greasy white flaking skin, multiple excoriated superficial scabs on upper torso; RUE PICC line in place without erythema) Laboratory Results Last 24 Hours Test 12/03/17 12:06 12/03/17 16:49 12/04/17 07:38 12/04/17 08:02 Bedside Glucose 163 mg/dl 167 mg/dl 212 mg/dl Sodium Level 136 mmol/L Potassium Level 4.2 mmol/L Chloride Level 98 mmol/L Carbon Dioxide Level 31 mmol/L Anion Gap 7.0 mmol/L Blood Urea Nitrogen 66 mg/dl Creatinine 2.03 mg/dl Est Creatinine Clear Calc Drug Dose 42.4 ml/min Estimated GFR () 30.3 Estimated GFR (Non- 26.2 BUN/Creatinine Ratio 32.7 Random Glucose 213 mg/dl Calcium Level 8.2 mg/dl Magnesium Level 2.0 mg/dl Assessment and Plan 57yo female - 1. acute/chronic hypoxic respiratory failure - acute component due to worsening CHF. See below.-stable -Continue supplemental O2 and diuresis 2. acute/chronic systolic/diastolic CHF along with severe acute/chronic right- sided heart failure (cor pulmonale)- Her weight on admission was up at least 10kg in comparison to her previous hospital d/c date of 11/14/17. *Echo: Grossly normal LV size and wall thickness.Moderate LV dysfunction. LVEF 35-40%. Severe inferolateral hypokinesis. Flattened septum consistent with RV pressure/volume overload.Severely dilated RV with moderate RV dysfunction.Mild- to-moderate eccentric mitral regurgitation.Aortic valve sclerosis without stenosis.Moderate to severe TR.Severe pulmonary hypertension. Estimated PASP 80 -85 mmHg. Dilated IVC, estimated RA 15 mmHg. -Diuresis has really picked up with increase in IV Bumex dose--> now down 2.5L net negative -continue Bumex 3 mg IV tid -Continue Aldactone once daily -continue metolazone 5 mg with midday Bumex -Appreciate cardiology consultation -I's and O's, daily weights, low Na+ diet, fluid restriction to 1800 mLs/day -Follow BMP am. -With her worsening LV function would benefit from beta lety, if her BP could tolerate. -Poor candidate for ANA LUISA or ARB due to CKD. -If no improvement -consider Bumex drip?? Ultimately defer to cardiology. She historically has been exceptionally challenging to manage due to a number of factors including poor self-care, poor compliance w/ diet, etc. -Prognosis is very poor. 3. severe pulmonary HTN - has worsened over time. I presume her pulmonary HTN is from long-standing, poorly treated ROHAN and/or VTE. -not a candidate for sildenafil, etc. 4. ROHAN - on BIPAP. Cont NC O2. She is willing to use BiPAP for at least several hours each night 5. COPD - does not appear to be in exacerbation at this time. 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 -Follow PRP 7. DVT proph - has IVC filter in place along with lovenox 30mg BID. 8. chronic rodriguez catheter usage/colonization with Pseudomonas and Klebsiella without true UTI-Rodriguez was exchanged 2 weeks ago but ordered to exchange again as per ID recommendations given Pseudomonas and Klebsiella--> however pt refusing for now RN to continue to encourage her to allow us to change out her Rodriguez -Discussed with ID-no antibiotics to be given at this time 9. morbid obesity with BMI 51 10. h/o sacral decubitus ulcer - managed by wound care. 11. b/l foot/heel/achilles ulcers - managed by wound care. 12. ?cirrhosis - CT abd/pelvis in October 2017 showed cirrhotic changes. Suspect this would be from ALFREDO. Certainly cirrhosis could be playing a role in her volume overload state. 13. T2DM - control sufficient. Hemoglobin A1c 7.8% this month -Accu-Cheks and basal bolus insulin 14. positive troponin - likely myocardial demand ischemia in setting of acute/ chronic CHF 15. chronic pain syndrome - cont oxycodone 10mg q4h prn. 16. right shoulder pain - voltaren gel qid; has chronic deformity 17. CHronic Enedina intertrigo-maintains chronic fluconazole therapy-says normally she is on it daily but since changing to every other day, has noticed return of her rashes -increase back to once daily dosing 18. Seborrheic dermatitis on face-start ketoconazole cream 19. Left eye chronic exudate-suspect dry eye -start artifical tears Disposition-will remain hospitalized for IV diuretics probably for many days PT/OT consultations prior to discharge back to [facility] appreciate consultation by service excellent and nursing warehouse shipping supervisor
[2017-12-04] MEDS ORDERED: KETOCONAZOLE 2% CR 15 GM TUBE EXT ONE (11:06)
[2017-12-04] MEDS ORDERED: ARTIFICIAL TEARS OP SOLN OP PRN (11:15)
[2017-12-04] MEDS: METOLAZONE 5 MG TAB PO SCH (13:18)
--- NOTE | 2017-12-04 17:01 | Cardiology Follow-Up ---
Subjective Subjective Date of Service: Dec 04, 2017. Pt evaluation today including: conversation w/ patient, physical exam, chart review, lab review, review of studies, review of inpatient medication list Additional Details: Improved diuresis overnight. No chest pain. Breathing unchanged. Problem List Medical Problems: (1) Acute renal disease Status: Acute (2) Acute renal failure Status: Acute (3) ELIZABETH (acute kidney injury) Status: Acute (4) ELIZABETH (acute kidney injury) Status: Acute (5) Anemia Status: Acute (6) Cellulitis Status: Acute (7) Cellulitis of both lower extremities Status: Acute (8) CHF (congestive heart failure) Status: Acute (9) CHF (congestive heart failure) Status: Acute (10) Dehydration Status: Acute (11) Fluid overload Status: Acute (12) Hypoxia Status: Acute (13) Pickwickian syndrome Status: Acute (14) Pneumonia Status: Acute (15) Respiratory failure Status: Acute (16) Sacral decubitus ulcer, stage III Status: Acute (17) UTI (urinary tract infection) Status: Acute (18) UTI (urinary tract infection) due to urinary indwelling Lerner catheter Status: Acute Review of Systems Constitutional: No fever Respiratory: No shortness of breath Cardiac: No chest pain Breast: + see HPI Abdomen: No pain Musculoskeletal: + see HPI Objective Vital Signs Last Vital Signs Documentation Date Time Temp Pulse Resp B/P (MAP) Pulse Ox O2 Delivery O2 Flow Rate FiO2 12/04/17 16:06 36.6 78 18 101/64 (76) 91 6.0 12/04/17 06:57 Mask 12/03/17 23:25 96 Physical Exam: General Appearance: no apparent distress, + obese ENT: hearing grossly normal Neck: trachea midline Respiratory/Chest: no respiratory distress, no accessory muscle use, + decreased breath sounds (throughout due to body habitus) Cardiovascular: regular rate, rhythm, + pertinent finding (anasarca) Abdomen: normal bowel sounds, non tender, soft (and morbidly obese) Extremities: + swelling (3+ pitting edema to abdomen bilat) Neurologic/Psychiatric: alert, normal mood/affect, oriented x 3 Skin: warm/dry, + rash (face with perioral and forehead,scalp with mild erythema and greasy white flaking skin, multiple excoriated superficial scabs on upper torso; RUE PICC line in place without erythema) Lymphatic: no adenopathy Assessment and Plan 1. Dejgl-uu-srjpkzh heart failure. 2. Cor pulmonale with severe pulmonary hypertension and RV dysfunction. 3. Stage IV chronic kidney disease. 4. Morbid obesity with obstructive sleep apnea. 5. Severe chronic obstructive pulmonary disease, on oxygen dependent. 6. Type 2 diabetes. 7. Venous ulcerations. 8. Chronic indwelling Lerner. Diuresis improved. Negative 2L yesterday. Stable renal function and electrolytes. -- Continue IV Bumex 3 milligrams t.i.d. -- continue Zaroxolyn 5 milligrams and spironolactone -- fluid restriction -- Continue to hold on ARB/beta-lety at present Will follow. Continued [facility] stay due to: voiding difficulties, ambulation difficulties, multiple IV medications needed, home environment unsafe for pt Discharge planning: group home facility Medications: Current Inpatient Medications Medications (Trade) Dose Ordered Sig/Bruno Route Start Time Stop Time Status Last Admin Dose Admin Bumetanide (Bumex Tab) 2 mg BID17 PO 11/30/17 09:00 12/30/17 08:59 Future Hold Enoxaparin Sodium (Lovenox Inj) 30 mg Q12 SQ 11/29/17 21:00 12/29/17 20:59 11/30/17 10:02 30 MG Acetaminophen (Tylenol Tab) 650 mg Q4H PRN PO 11/29/17 18:30 12/29/17 18:29 Al Hydrox/Mg Hydrox/Simethicone (Maalox Max Susp) 15 ml Q4H PRN PO 11/29/17 18:30 12/29/17 18:29 Magnesium Hydroxide (Milk Of Magnesia Susp) 30 ml Q6H PRN PO 11/29/17 18:30 12/29/17 18:29 Polyethylene (Miralax Powder Packet) 17 gm DAILY PRN PO 11/29/17 18:30 12/29/17 18:29 Ondansetron HCl (Zofran Inj) 4 mg Q6H PRN IV 11/29/17 18:30 12/29/17 18:29 Insulin Aspart (novoLOG ASPART) SLIDING SCALE G... ACHS SC 11/29/17 21:00 12/29/17 20:59 12/04/17 13:22 5 UNITS Clotrimazole (Lotrimin 1% Crm) 1 appln Q12 PRN EXT 11/29/17 18:30 12/29/17 18:29 Docusate Sodium (coLACE CAP) 100 mg HS PO 11/29/17 21:00 12/29/17 20:59 12/02/17 21:28 100 MG Ergocalciferol (Vitamin D Cap) 50,000 interunit Fr@0900 PO 12/06/17 09:00 01/05/18 08:59 Heparin Sodium (Porcine) (Heparin 10 Unit/ ml 5 ml Flush) 5 ml BID FLUSH 11/29/17 20:00 12/29/17 20:59 12/04/17 08:13 5 ML Albuterol/ Ipratropium (Duoneb) 3 ml Q4H PRN INH 11/29/17 18:30 12/29/17 18:29 12/03/17 10:25 3 ML Albuterol/ Ipratropium (Duoneb) 3 ml Q6R INH 11/29/17 21:00 12/29/17 20:59 12/04/17 06:57 3 ML Multivitamins/ Minerals (Multivitamin W/ Minerals Tab) 1 tab DAILY PO 11/30/17 08:00 12/30/17 08:59 Spironolactone (Aldactone Tab) 25 mg DAILY PO 11/30/17 08:00 12/30/17 08:59 12/04/17 09:01 25 MG Trazodone HCl (Desyrel Tab) 25 mg HS PO 11/29/17 21:00 12/29/17 20:59 Bisacodyl (Dulcolax Supp) 10 mg DAILY PRN WI 11/29/17 18:30 12/29/17 18:29 Buspirone HCl (Buspar Tab) 5 mg Q12 PRN PO 11/29/17 18:30 12/29/17 18:29 Guaifenesin (Robitussin Sugar Free Syrup) 200 mg QID PO 11/29/17 20:00 12/29/17 20:59 Miscellaneous Information (Order Awaiting Action) 1 ea QS N/A 11/30/17 00:00 12/30/17 00:00 Miscellaneous (Iv Fluids Completed) 1 ea PRN PRN N/A 11/29/17 19:15 11/29/18 19:14 Miconazole Nitrate (Desenex Powder) 1 appln UD PRN EXT 11/30/17 19:00 12/30/17 18:59 Oxycodone HCl (Roxicodone Immediate Rel Tab) 10 mg Q4H PRN PO 12/01/17 11:15 12/13/17 18:29 12/04/17 02:03 10 MG Heparin Sodium (Porcine) (Heparin 10 Unit/ ml 5 ml Flush) 5 ml PRN PRN FLUSH 12/02/17 15:45 01/01/18 15:44 12/04/17 14:19 5 ML Diclofenac Sodium (Voltaren 1% Top Gel) 1 appln QID EXT 12/02/17 20:00 01/01/18 19:59 12/03/17 21:27 1 APPLN Bumetanide 3 mg/ Syringe 12 ml @ 4 mls/min TID IV 12/03/17 14:00 12/30/17 09:14 12/04/17 14:18 4 MLS/MIN Metolazone (Zaroxolyn Tab) 5 mg Q24H PO 12/03/17 13:30 01/02/18 13:29 12/04/17 13:18 5 MG Fluconazole (Diflucan Tab) 100 mg DAILY PO 12/04/17 08:00 12/10/17 08:59 12/04/17 09:01 100 MG Insulin Glargine (Lantus Solostar Pen) 12 units QAM SQ 12/05/17 08:00 12/30/17 08:59 Ketoconazole (Nizoral 2% Crm) 1 appln BID EXT 12/04/17 20:00 12/14/17 19:59 Artificial Tears (Artificial Tears) 2 drops Q3H PRN OP 12/04/17 11:15 01/03/18 11:14 Lab Results: 12/04/17 08:02 Test 12/04/17 08:02 12/04/17 11:43 Anion Gap 7.0 mmol/L (3-11) Est Creatinine Clear Calc Drug Dose 42.4 ml/min Estimated GFR () 30.3 Estimated GFR (Non- 26.2 BUN/Creatinine Ratio 32.7 (10-20) Calcium Level 8.2 mg/dl (8.5-10.1) Magnesium Level 2.0 mg/dl (1.8-2.4) Bedside Glucose 198 mg/dl (70-90)
[2017-12-04] MEDS: KETOCONAZOLE 2% CR 15 GM TUBE EXT SCH (20:30)
[2017-12-04] MEDS: TRAZODONE HCL 50 MG TAB PO SCH (20:34)
[2017-12-04] MEDS: DOCUSATE SODIUM 100 MG CAP PO SCH (20:35)
[2017-12-05] VITALS (10 sets, daily range): BP systolic 90–105; BP diastolic 59–67; PULSE 89–109; TEMP 36.6–36.8; O2SAT 86–93
[2017-12-05] MEDS: ALBUT/IPRATROP 3MG/0.5MG NEB 3 ML VIAL INH SCH ×5 (00:30→23:25)
[2017-12-05 06:40] LABS: HEMOGLOBIN 9.8 g/dL (12.0-16.0); MEAN CELL VOLUME 88.5 fL (80-100); MEAN CORPUSCULAR HEMOGLOBIN 26.3 pg (25-34); MEAN CORPUSCULAR HGB CONC 29.7 g/dl (32-36); MEAN PLATELET VOLUME 9.9 fL (7.4-10.4); PLATELET COUNT 168 K/uL (130-400); RED CELL DISTRIBUTION WIDTH CV 20.8 % (11.5-14.5); RED CELL DISTRIBUTION WIDTH SD 67.5 fL (36.4-46.3); WHITE BLOOD COUNT 8.59 K/uL (4.8-10.8)
[2017-12-05 07:04] LABS: CREATININE 2.16 mg/dl (0.60-1.20); POTASSIUM 4.4 mmol/L (3.5-5.1)
[2017-12-05] MEDS: FLUCONAZOLE 100 MG TAB PO SCH (08:29)
[2017-12-05] MEDS: SPIRONOLACTONE 25 MG TAB PO SCH (08:32)
[2017-12-05] MEDS: CEROVITE ADV FORMULA TAB PO SCH (08:33)
[2017-12-05] MEDS: GUAIFENESIN SUGAR FREE 200 MG/10 ML UDC PO SCH ×4 (08:33→20:00)
[2017-12-05] MEDS: ENOXAPARIN 30 MG/0.3 ML SYR SQ SCH ×2 (08:33→21:00)
[2017-12-05] MEDS: INSULIN GLARGINE SOLOSTAR 100 UNITS/ML 3 ML PEN SQ SCH (08:35)
[2017-12-05] MEDS: INSULIN ASPART 100 UNITS/ML 3 ML PEN SC SCH ×4 (08:39→22:00)
[2017-12-05] MEDS: DICLOFENAC SOD 1% GEL 100 GM TUBE EXT SCH ×4 (08:40→20:00)
[2017-12-05] MEDS: BUMETANIDE IV 3 MG in SYRINGE 0 ML IV SCH ×3 (08:40→22:32)
[2017-12-05] MEDS: KETOCONAZOLE 2% CR 15 GM TUBE EXT SCH ×2 (08:40→20:00)
[2017-12-05] MEDS ORDERED: METOPROLOL TARTRATE 25 MG TAB PO ONE (09:06)
--- NOTE | 2017-12-05 09:18 | Cardiology Follow-Up ---
Subjective Subjective Date of Service: Dec 05, 2017. Pt evaluation today including: conversation w/ patient, physical exam, chart review, lab review, review of studies, review of inpatient medication list Additional Details: Breathing near baseline. No chest pain., Reports abdominal pain with coughing. Problem List Medical Problems: (1) Acute renal disease Status: Acute (2) Acute renal failure Status: Acute (3) ELIZABETH (acute kidney injury) Status: Acute (4) ELIZABETH (acute kidney injury) Status: Acute (5) Anemia Status: Acute (6) Cellulitis Status: Acute (7) Cellulitis of both lower extremities Status: Acute (8) CHF (congestive heart failure) Status: Acute (9) CHF (congestive heart failure) Status: Acute (10) Dehydration Status: Acute (11) Fluid overload Status: Acute (12) Hypoxia Status: Acute (13) Pickwickian syndrome Status: Acute (14) Pneumonia Status: Acute (15) Respiratory failure Status: Acute (16) Sacral decubitus ulcer, stage III Status: Acute (17) UTI (urinary tract infection) Status: Acute (18) UTI (urinary tract infection) due to urinary indwelling Lerner catheter Status: Acute Review of Systems Constitutional: No fever Respiratory: No shortness of breath Cardiac: No chest pain Breast: + see HPI Abdomen: No pain Musculoskeletal: + see HPI Objective Vital Signs Last Vital Signs Documentation Date Time Temp Pulse Resp B/P (MAP) Pulse Ox O2 Delivery O2 Flow Rate FiO2 12/05/17 07:25 36.6 109 22 105/67 (80) 90 Nasal Cannula 6.0 12/03/17 23:25 96 Physical Exam: General Appearance: no apparent distress, + obese ENT: hearing grossly normal Neck: trachea midline Respiratory/Chest: no respiratory distress, no accessory muscle use, + decreased breath sounds (throughout due to body habitus) Cardiovascular: regular rate, rhythm, + pertinent finding (anasarca) Abdomen: normal bowel sounds, non tender, soft (and morbidly obese) Extremities: + swelling (3+ pitting edema to abdomen bilat) Neurologic/Psychiatric: alert, normal mood/affect, oriented x 3 Skin: warm/dry, + rash (face with perioral and forehead,scalp with mild erythema and greasy white flaking skin, multiple excoriated superficial scabs on upper torso; RUE PICC line in place without erythema) Lymphatic: no adenopathy Assessment and Plan 1. Jqpew-[id number] heart failure. 2. Cor pulmonale with severe pulmonary hypertension and RV dysfunction. 3. Stage IV chronic kidney disease. 4. Morbid obesity with obstructive sleep apnea. 5. Severe chronic obstructive pulmonary disease, on oxygen dependent. 6. Type 2 diabetes. 7. Venous ulcerations. 8. Chronic indwelling Lerner. Negative 1 L overnight. Renal function stable. Well perfused, persistent anasarca. Newly tachycardic overnight. -- Continue IV Bumex 3 milligrams t.i.d. today. -- continue Zaroxolyn 5 milligrams and spironolactone -- continue to follow I/O and renal function --> suspect may have to reduce aggressive diuresis for a period of time in near future. -- Start low dose beta-lety 25 mg BID Will follow. Continued [facility] stay due to: voiding difficulties, ambulation difficulties, multiple IV medications needed, home environment unsafe for pt Discharge planning: [facility] facility Medications: Current Inpatient Medications Medications (Trade) Dose Ordered Sig/Bruno Route Start Time Stop Time Status Last Admin Dose Admin Bumetanide (Bumex Tab) 2 mg BID17 PO 11/30/17 09:00 12/30/17 08:59 Future Hold Enoxaparin Sodium (Lovenox Inj) 30 mg Q12 SQ 11/29/17 21:00 12/29/17 20:59 11/30/17 10:02 30 MG Acetaminophen (Tylenol Tab) 650 mg Q4H PRN PO 11/29/17 18:30 12/29/17 18:29 Al Hydrox/Mg Hydrox/Simethicone (Maalox Max Susp) 15 ml Q4H PRN PO 11/29/17 18:30 12/29/17 18:29 Magnesium Hydroxide (Milk Of Magnesia Susp) 30 ml Q6H PRN PO 11/29/17 18:30 12/29/17 18:29 Polyethylene (Miralax Powder Packet) 17 gm DAILY PRN PO 11/29/17 18:30 12/29/17 18:29 Ondansetron HCl (Zofran Inj) 4 mg Q6H PRN IV 11/29/17 18:30 12/29/17 18:29 Insulin Aspart (novoLOG ASPART) SLIDING SCALE G... ACHS SC 11/29/17 21:00 12/29/17 20:59 12/05/17 08:39 2 UNITS Clotrimazole (Lotrimin 1% Crm) 1 appln Q12 PRN EXT 11/29/17 18:30 12/29/17 18:29 Docusate Sodium (coLACE CAP) 100 mg HS PO 11/29/17 21:00 12/29/17 20:59 12/02/17 21:28 100 MG Ergocalciferol (Vitamin D Cap) 50,000 interunit Fr@0900 PO 12/06/17 09:00 01/05/18 08:59 Heparin Sodium (Porcine) (Heparin 10 Unit/ ml 5 ml Flush) 5 ml BID FLUSH 11/29/17 20:00 12/29/17 20:59 12/05/17 08:40 5 ML Albuterol/ Ipratropium (Duoneb) 3 ml Q4H PRN INH 11/29/17 18:30 12/29/17 18:29 12/03/17 10:25 3 ML Albuterol/ Ipratropium (Duoneb) 3 ml Q6R INH 11/29/17 21:00 12/29/17 20:59 12/05/17 06:52 3 ML Multivitamins/ Minerals (Multivitamin W/ Minerals Tab) 1 tab DAILY PO 11/30/17 08:00 12/30/17 08:59 Spironolactone (Aldactone Tab) 25 mg DAILY PO 11/30/17 08:00 12/30/17 08:59 12/05/17 08:32 25 MG Trazodone HCl (Desyrel Tab) 25 mg HS PO 11/29/17 21:00 12/29/17 20:59 Bisacodyl (Dulcolax Supp) 10 mg DAILY PRN IN 11/29/17 18:30 12/29/17 18:29 Buspirone HCl (Buspar Tab) 5 mg Q12 PRN PO 11/29/17 18:30 12/29/17 18:29 Guaifenesin (Robitussin Sugar Free Syrup) 200 mg QID PO 11/29/17 20:00 12/29/17 20:59 Miscellaneous Information (Order Awaiting Action) 1 ea QS N/A 4/14/18 00:00 12/30/17 00:00 Miscellaneous (Iv Fluids Completed) 1 ea PRN PRN N/A 11/29/17 19:15 11/29/18 19:14 Miconazole Nitrate (Desenex Powder) 1 appln UD PRN EXT 11/30/17 19:00 12/30/17 18:59 Oxycodone HCl (Roxicodone Immediate Rel Tab) 10 mg Q4H PRN PO 12/01/17 11:15 12/13/17 18:29 12/04/17 22:23 10 MG Heparin Sodium (Porcine) (Heparin 10 Unit/ ml 5 ml Flush) 5 ml PRN PRN FLUSH 12/02/17 15:45 01/01/18 15:44 12/04/17 14:19 5 ML Diclofenac Sodium (Voltaren 1% Top Gel) 1 appln QID EXT 12/02/17 20:00 01/01/18 19:59 12/03/17 21:27 1 APPLN Bumetanide 3 mg/ Syringe 12 ml @ 4 mls/min TID IV 12/03/17 14:00 12/30/17 09:14 12/05/17 08:40 4 MLS/MIN Metolazone (Zaroxolyn Tab) 5 mg Q24H PO 12/03/17 13:30 01/02/18 13:29 12/04/17 13:18 5 MG Fluconazole (Diflucan Tab) 100 mg DAILY PO 12/04/17 08:00 12/10/17 08:59 12/05/17 08:29 100 MG Insulin Glargine (Lantus Solostar Pen) 12 units QAM SQ 12/05/17 08:00 12/30/17 08:59 12/05/17 08:35 12 UNITS Ketoconazole (Nizoral 2% Crm) 1 appln BID EXT 12/04/17 20:00 12/14/17 19:59 Artificial Tears (Artificial Tears) 2 drops Q3H PRN OP 12/04/17 11:15 01/03/18 11:14 Diphenhydramine HCl (Benadryl Cap) 25 mg Q4H PRN PO 12/04/17 19:00 01/03/18 18:59 12/04/17 20:35 25 MG Lab Results: 12/05/17 05:33 12/05/17 05:33 Test 12/05/17 05:33 12/05/17 07:54 Red Blood Count 3.73 M/uL (4.2-5.4) Mean Corpuscular Volume 88.5 fL (80-100) Mean Corpuscular Hemoglobin 26.3 pg (25-34) Mean Corpuscular Hemoglobin Concent 29.7 g/dl (32-36) RDW Standard Deviation 67.5 fL (36.4-46.3) RDW Coefficient of Variation 20.8 % (11.5-14.5) Mean Platelet Volume 9.9 fL (7.4-10.4) Anion Gap 4.0 mmol/L (3-11) Est Creatinine Clear Calc Drug Dose 40.0 ml/min Estimated GFR () 28.1 Estimated GFR (Non- 24.3 BUN/Creatinine Ratio 33.3 (10-20) Calcium Level 8.0 mg/dl (8.5-10.1) Magnesium Level 2.0 mg/dl (1.8-2.4) Bedside Glucose 165 mg/dl (70-90)
--- NOTE | 2017-12-05 10:50 | Hospitalist Progress Note ---
Hospitalist Progress Note Date of Service Dec 05, 2017. Subjective Pt evaluation today including: conversation w/ patient, conversation w/ brand sales consultant (Cardiology) Voiding: rodriguez catheter in place Pt having some pain in her right side of abdomen only with coughing, thinks it' s a muscle strain. Has been persistently tachycardic-discussed with Cardio and discussed starting metoprolol with the pt who is agreeable Skin: + itch All Other Systems: Reviewed and Negative Objective Vital Signs Date Time Temp Pulse Resp B/P (MAP) Pulse Ox O2 Delivery O2 Flow Rate FiO2 12/05/17 07:25 36.6 109 22 105/67 (80) 90 Nasal Cannula 6.0 12/05/17 06:52 109 20 90 Mask 6.0 12/05/17 00:30 107 22 93 Mask 6.0 12/05/17 00:00 Mask 6.0 12/04/17 20:30 110 18 90 Mask 6.0 12/04/17 16:06 36.6 78 18 101/64 (76) 91 6.0 12/04/17 16:00 91 Nasal Cannula 6.0 Physical Exam General Appearance: WD/WN, no apparent distress, + obese Eyes: normal inspection, sclerae normal ENT: hearing grossly normal Neck: trachea midline Respiratory/Chest: no respiratory distress, no accessory muscle use, + decreased breath sounds (throughout due to body habitus, no obvious wheeze) Cardiovascular: no murmur, + tachycardia (with reg rhythm) Abdomen: normal bowel sounds, soft, + tenderness (mild in RUQ with superficial palpation, no masses, no guarding or rebound) Extremities: + swelling (3+ pitting edema in bilat LEs up into abdomen) Neurologic/Psychiatric: alert, normal mood/affect, oriented x 3 Skin: normal color, + pertinent finding (multiple excoriated circular lesions, dry skin, seborrheic derm on face) Laboratory Results Last 24 Hours Test 12/04/17 11:43 12/04/17 16:56 12/05/17 05:33 12/05/17 07:54 Bedside Glucose 198 mg/dl 165 mg/dl 165 mg/dl White Blood Count 8.59 K/uL Red Blood Count 3.73 M/uL Hemoglobin 9.8 g/dL Hematocrit 33.0 % Mean Corpuscular Volume 88.5 fL Mean Corpuscular Hemoglobin 26.3 pg Mean Corpuscular Hemoglobin Concent 29.7 g/dl RDW Standard Deviation 67.5 fL RDW Coefficient of Variation 20.8 % Platelet Count 168 K/uL Mean Platelet Volume 9.9 fL Sodium Level 135 mmol/L Potassium Level 4.4 mmol/L Chloride Level 98 mmol/L Carbon Dioxide Level 33 mmol/L Anion Gap 4.0 mmol/L Blood Urea Nitrogen 72 mg/dl Creatinine 2.16 mg/dl Est Creatinine Clear Calc Drug Dose 40.0 ml/min Estimated GFR () 28.1 Estimated GFR (Non- 24.3 BUN/Creatinine Ratio 33.3 Random Glucose 158 mg/dl Calcium Level 8.0 mg/dl Magnesium Level 2.0 mg/dl Assessment and Plan This pt is a 57yo female with: 1. Acute/chronic hypoxic respiratory failure - acute component due to worsening CHF. See below.-stable -Continue supplemental O2 and diuresis 2. Acute/chronic combined systolic/diastolic CHF along with severe acute/ chronic right-sided heart failure (cor pulmonale)- Her weight on admission was up at least 10kg in comparison to her previous hospital d/c date of 11/14/17. *Echo: Grossly normal LV size and wall thickness.Moderate LV dysfunction. LVEF 35-40%. Severe inferolateral hypokinesis. Flattened septum consistent with RV pressure/volume overload.Severely dilated RV with moderate RV dysfunction.Mild- to-moderate eccentric mitral regurgitation.Aortic valve sclerosis without stenosis.Moderate to severe TR.Severe pulmonary hypertension. Estimated PASP 80 -85 mmHg. Dilated IVC, estimated RA 15 mmHg. Weight not reflective of diuresis,but I/Os net negative 3.5L so far -Diuresis picked up with increase in IV Bumex dose to 3mg tid, but Na+ trending down, BUN and Community Service Technician creeping up-discussed with Cardiology today -will continue Bumex 3 mg IV tid and lower if BUN, observer electrical prospecting worsen -Continue Aldactone once daily -continue metolazone 5 mg with midday Bumex -Appreciate cardiology consultation -I's and O's, daily weights, low Na+ diet, fluid restriction to 1800 mLs/day -Follow BMP in am. -With her worsening LV function would benefit from beta lety-discussed with Cardio--> will start low dose metoprolol 25mg bid -Poor candidate for ANA LUISA or ARB due to CKD. She historically has been exceptionally challenging to manage due to a number of factors including poor self-care, poor compliance w/ diet, etc. -Prognosis is very poor. 3. Severe pulmonary HTN - has worsened over time. I presume her pulmonary HTN is from long-standing, poorly treated ROHAN and/or VTE. -not a candidate for sildenafil, etc. 4. ROHAN - on BIPAP. Cont NC O2. She is willing to use BiPAP for at least several hours each night 5. COPD - does not appear to be in exacerbation at this time. -Continue nebulized bronchodilators as needed 6. CKD stage 3-4 - creatinine and BUN with slight increase to 72 and 2.16 today. -Follow PRP -avoid nephrotoxins -renally dose meds 7. DVT proph - has IVC filter in place along with lovenox 30mg BID. 8. chronic rodriguez catheter usage/colonization with Pseudomonas and Klebsiella without true UTI-Rodriguez was exchanged 2 weeks ago but ordered to exchange again as per ID recommendations given Pseudomonas and Klebsiella--> however pt refusing for now RN to continue to encourage her to allow us to change out her Rodriguez -Discussed with ID-no antibiotics to be given at this time 9. morbid obesity with BMI 51 10. h/o sacral decubitus ulcer - managed by wound care. 11. b/l foot/heel/achilles ulcers - managed by wound care. 12. ?cirrhosis - CT abd/pelvis in October 2017 showed cirrhotic changes. Suspect this would be from ALFREDO. Certainly cirrhosis could be playing a role in her volume overload state. 13. T2DM - control sufficient. Hemoglobin A1c 7.8% this month -Accu-Cheks and basal bolus insulin 14. positive troponin - likely myocardial demand ischemia in setting of acute/ chronic CHF 15. chronic pain syndrome - cont oxycodone 10mg q4h prn. 16. right shoulder pain - voltaren gel qid; has chronic deformity 17. CHronic Enedina intertrigo-maintains chronic fluconazole therapy-says normally she is on it daily but since changing to every other day, has noticed return of her rashes -increase back to once daily dosing 18. Seborrheic dermatitis on face-start ketoconazole cream 19. Left eye chronic exudate-suspect dry eye -start artifical tears 20. RUQ abd pain-suspect MSK from coughing -observe for worsening Disposition-will remain hospitalized for IV diuretics probably for many days PT/OT consultations prior to discharge back to [facility] appreciate consultation by service excellent and nursing supervisor force adjustment
[2017-12-05] MEDS: METOLAZONE 5 MG TAB PO SCH (13:03)
[2017-12-05] MEDS: METOPROLOL TARTRATE 25 MG TAB PO SCH (20:00)
[2017-12-05] MEDS: TRAZODONE HCL 50 MG TAB PO SCH (22:00)
[2017-12-05] MEDS: DOCUSATE SODIUM 100 MG CAP PO SCH (22:00)
[2017-12-06] VITALS (7 sets, daily range): BP systolic 82–94; BP diastolic 57–62; PULSE 82–108; TEMP 36.6–36.8; O2SAT 83–95
[2017-12-06] MEDS: ALBUT/IPRATROP 3MG/0.5MG NEB 3 ML VIAL INH SCH ×5 (07:11→20:47)
[2017-12-06 08:14] LABS: BASO % 0.2 %; BASO ABS # 0.02 K/uL (0-0.2); EOS % 0.9 %; EOS ABS # 0.09 K/uL (0-0.5); HEMATOCRIT 33.7 % (37-47); HEMOGLOBIN 10.5 g/dL (12.0-16.0); IG# 0.02 K/uL (0.00-0.02); LYMPH % 11.2 %; MEAN CELL VOLUME 87.8 fL (80-100); MEAN CORPUSCULAR HEMOGLOBIN 27.3 pg (25-34); MEAN CORPUSCULAR HGB CONC 31.2 g/dl (32-36); MEAN PLATELET VOLUME 9.8 fL (7.4-10.4); MONO % 8.1 %; MONO ABS # 0.79 K/uL (0.11-0.59); NEUT % 79.4 %; NEUT ABS # 7.76 K/uL (1.4-6.5); PLATELET COUNT 176 K/uL (130-400); RED CELL DISTRIBUTION WIDTH CV 20.6 % (11.5-14.5); RED CELL DISTRIBUTION WIDTH SD 66.1 fL (36.4-46.3); WHITE BLOOD COUNT 9.78 K/uL (4.8-10.8)
[2017-12-06 08:39] LABS: ALBUMIN 2.5 gm/dl (3.4-5.0); CALCIUM 8.3 mg/dl (8.5-10.1); CREATININE 2.42 mg/dl (0.60-1.20); POTASSIUM 4.7 mmol/L (3.5-5.1)
[2017-12-06] MEDS: DICLOFENAC SOD 1% GEL 100 GM TUBE EXT SCH ×4 (08:58→20:43)
[2017-12-06] MEDS: METOPROLOL TARTRATE 25 MG TAB PO SCH ×2 (09:00→20:44)
[2017-12-06] MEDS: ENOXAPARIN 30 MG/0.3 ML SYR SQ SCH ×2 (09:00→20:44)
[2017-12-06] MEDS: FLUCONAZOLE 100 MG TAB PO SCH (09:00)
[2017-12-06] MEDS: CEROVITE ADV FORMULA TAB PO SCH (09:00)
[2017-12-06] MEDS: ERGOCALCIFEROL 50,000 INTER.UNIT CAP PO SCH (09:00)
[2017-12-06] MEDS: SPIRONOLACTONE 25 MG TAB PO SCH (09:00)
[2017-12-06] MEDS: BUMETANIDE IV 3 MG in SYRINGE 0 ML IV SCH (09:01)
[2017-12-06] MEDS: GUAIFENESIN SUGAR FREE 200 MG/10 ML UDC PO SCH ×4 (09:01→20:44)
[2017-12-06] MEDS: KETOCONAZOLE 2% CR 15 GM TUBE EXT SCH ×2 (09:02→20:43)
[2017-12-06] MEDS: INSULIN ASPART 100 UNITS/ML 3 ML PEN SC SCH ×4 (09:05→20:45)
[2017-12-06] MEDS: INSULIN GLARGINE SOLOSTAR 100 UNITS/ML 3 ML PEN SQ SCH (09:06)
--- NOTE | 2017-12-06 10:50 | Hospitalist Progress Note ---
Hospitalist Progress Note Date of Service Dec 06, 2017. Subjective Pt evaluation today including: conversation w/ patient No complaints. Steam Drier Tender bumped up, not much diuresis overall. Abd pain resolved from yesterday All Other Systems: Reviewed and Negative Objective Vital Signs Date Time Temp Pulse Resp B/P (MAP) Pulse Ox O2 Delivery O2 Flow Rate FiO2 12/06/17 07:30 36.8 88 20 94/62 (73) 90 6.0 12/06/17 07:13 82 20 83 Mask 7.0 12/06/17 00:05 Oxymask 6.0 12/05/17 23:30 36.8 89 90/59 (69) 89 Nasal Cannula 6.0 12/05/17 23:26 105 20 92 Mask 6.0 12/05/17 20:07 102 20 92 Mask 6.0 12/05/17 20:05 Oxymask 6.0 12/05/17 17:00 90 6.0 12/05/17 16:31 36.8 91 20 94/61 (72) 86 Oxymask 6.0 12/05/17 16:31 36.6 109 20 105/67 (80) 88 Mask 6.0 96 107 12/05/17 16:00 Oxymask 6.0 12/05/17 15:58 98 88 12/05/17 13:59 91 20 91 Mask 6.0 Physical Exam General Appearance: no apparent distress, + obese Eyes: normal inspection, sclerae normal ENT: hearing grossly normal Neck: trachea midline Respiratory/Chest: no respiratory distress, no accessory muscle use, + decreased breath sounds (throughout due to body habitus) Cardiovascular: regular rate, rhythm, no murmur, + pertinent finding (anasarca , 3+ pitting edema LEs, abdomen, even thorax) Abdomen: normal bowel sounds, non tender (and morbidly obese), soft Extremities: no calf tenderness Neurologic/Psychiatric: alert, normal mood/affect Skin: normal color, + pertinent finding (multiple excoriations as before) Laboratory Results Last 24 Hours Test 12/05/17 11:06 12/05/17 16:45 12/06/17 07:58 12/06/17 08:01 Bedside Glucose 173 mg/dl 166 mg/dl 160 mg/dl White Blood Count 9.78 K/uL Red Blood Count 3.84 M/uL Hemoglobin 10.5 g/dL Hematocrit 33.7 % Mean Corpuscular Volume 87.8 fL Mean Corpuscular Hemoglobin 27.3 pg Mean Corpuscular Hemoglobin Concent 31.2 g/dl Platelet Count 176 K/uL Mean Platelet Volume 9.8 fL Neutrophils (%) (Auto) 79.4 % Lymphocytes (%) (Auto) 11.2 % Monocytes (%) (Auto) 8.1 % Eosinophils (%) (Auto) 0.9 % Basophils (%) (Auto) 0.2 % Neutrophils # (Auto) 7.76 K/uL Lymphocytes # (Auto) 1.10 K/uL Monocytes # (Auto) 0.79 K/uL Eosinophils # (Auto) 0.09 K/uL Basophils # (Auto) 0.02 K/uL RDW Standard Deviation 66.1 fL RDW Coefficient of Variation 20.6 % Immature Granulocyte % (Auto) 0.2 % Immature Granulocyte # (Auto) 0.02 K/uL Poikilocytosis PRESENT Anisocytosis PRESENT Sodium Level 135 mmol/L Potassium Level 4.7 mmol/L Chloride Level 97 mmol/L Carbon Dioxide Level 30 mmol/L Anion Gap 8.0 mmol/L Blood Urea Nitrogen 76 mg/dl Creatinine 2.42 mg/dl Est Creatinine Clear Calc Drug Dose 35.7 ml/min Estimated GFR () 24.5 Estimated GFR (Non- 21.2 BUN/Creatinine Ratio 31.4 Random Glucose 175 mg/dl Calcium Level 8.3 mg/dl Magnesium Level 2.0 mg/dl Total Bilirubin 0.5 mg/dl Direct Bilirubin 0.2 mg/dl Aspartate Amino Transf (AST/SGOT) 7 U/L Alanine Aminotransferase (ALT/SGPT) 8 U/L Alkaline Phosphatase 70 U/L Total Protein 6.0 gm/dl Albumin 2.5 gm/dl Assessment and Plan This pt is a 57yo female with: 1. Acute/chronic hypoxic respiratory failure - acute component due to worsening CHF. See below.-stable -Continue supplemental O2 and diuresis 2. Acute/chronic combined systolic/diastolic CHF along with severe acute/ chronic right-sided heart failure (cor pulmonale)- Her weight on admission was up at least 10kg in comparison to her previous hospital d/c date of 11/14/17. *Echo: Grossly normal LV size and wall thickness.Moderate LV dysfunction. LVEF 35-40%. Severe inferolateral hypokinesis. Flattened septum consistent with RV pressure/volume overload.Severely dilated RV with moderate RV dysfunction.Mild- to-moderate eccentric mitral regurgitation.Aortic valve sclerosis without stenosis.Moderate to severe TR.Severe pulmonary hypertension. Estimated PASP 80 -85 mmHg. Dilated IVC, estimated RA 15 mmHg. Weight not reflective of diuresis,but I/Os net negative 3.5L so far -Diuresis picked up with increase in IV Bumex dose to 3mg tid, but BUN and Steam Drier Tender continue to increase -willdecrease Bumex to 2 mg IV tid -consult Nephrology to assist in case of worsening renal function -Continue Aldactone once daily unless Nephro/Cardio suggest otherwise -continue metolazone 5 mg with midday Bumex again unless otherwise as per specialist -Appreciate cardiology consultation -I's and O's, daily weights, low Na+ diet, fluid restriction to 1800 mLs/day -Follow BMP in am. -With her worsening LV function would benefit from beta lety-discussed with Cardio--> started metoprolol 25mg bid but with hypotension--> lower to 12.5mg bid -Poor candidate for ANA LUISA or ARB due to CKD. She historically has been exceptionally challenging to manage due to a number of factors including poor self-care, poor compliance w/ diet, etc. -Prognosis is very poor. 3. Severe pulmonary HTN - has worsened over time. I presume her pulmonary HTN is from long-standing, poorly treated ROHAN and/or VTE. -not a candidate for sildenafil, etc. 4. ROHAN - on BIPAP. Cont NC O2. She is willing to use BiPAP for at least several hours each night 5. COPD - does not appear to be in exacerbation at this time. -Continue nebulized bronchodilators as needed 6. Acute renal insufficiency in setting of CKD stage 3-4 - creatinine and BUN again with increase to 76 and 2.42 today. -Follow PRP -avoid nephrotoxins -renally dose meds -consult Nephrology as above 7. DVT proph - has IVC filter in place along with lovenox 30mg BID. 8. chronic rodriguez catheter usage/colonization with Pseudomonas and Klebsiella without true UTI-Rodriguez was exchanged 2 weeks ago but ordered to exchange again as per ID recommendations given Pseudomonas and Klebsiella--> however pt refusing for now RN to continue to encourage her to allow us to change out her Rodriguez -Discussed with ID-no antibiotics to be given at this time 9. morbid obesity with BMI 51 10. h/o sacral decubitus ulcer - managed by wound care. 11. b/l foot/heel/achilles ulcers - managed by wound care. 12. ?cirrhosis - CT abd/pelvis in October 2017 showed cirrhotic changes. Suspect this would be from ALFREDO. Certainly cirrhosis could be playing a role in her volume overload state. 13. T2DM - control sufficient now after increase in Lantus. Hemoglobin A1c 7.8 % this month -Accu-Cheks and basal bolus insulin 14. positive troponin - likely myocardial demand ischemia in setting of acute/ chronic CHF 15. chronic pain syndrome - cont oxycodone 10mg q4h prn. 16. right shoulder pain - voltaren gel qid; has chronic deformity 17. Chronic Enedina intertrigo-maintains chronic fluconazole therapy-says normally she is on it daily but since changing to every other day, has noticed return of her rashes -increased back to once daily dosing at her request, follow LFTs periodically 18. Seborrheic dermatitis on face- -continue ketoconazole cream 19. Left eye chronic exudate-suspect dry eye -continue artifical tears 20. RUQ abd pain-suspect MSK from coughing. Now resolved -observe for worsening Disposition-will remain hospitalized for IV diuretics probably for many days PT/OT consultations prior to discharge back to [facility] appreciate consultation by service excellent and nursing supervisor frame assembly
[2017-12-06] MEDS: METOLAZONE 5 MG TAB PO SCH (13:39)
[2017-12-06] MEDS ORDERED: BUMETANIDE IV 2 MG in SYRINGE 0 ML IV SCH (14:00)
[2017-12-06] MEDS ORDERED: ALBUMIN HUMAN 25% 12.5 GM/50 ML VIAL IV SCH ×2 (14:15→15:15)
[2017-12-06] MEDS: ALBUMIN HUMAN 25% 12.5 GM/50 ML VIAL IV SCH ×2 (14:23→16:46)
--- NOTE | 2017-12-06 17:11 | Cardiology Follow-Up ---
Subjective Subjective Date of Service: Dec 06, 2017. Pt evaluation today including: conversation w/ patient, physical exam, chart review, lab review, review of studies, conversation w/ coding consultant, review of inpatient medication list Additional Details: Feeling about the same. Feels swelling somewhat improved. Denies chest pain. No other new complaints. Problem List Medical Problems: (1) Acute renal disease Status: Acute (2) Acute renal failure Status: Acute (3) ELIZABETH (acute kidney injury) Status: Acute (4) ELIZABETH (acute kidney injury) Status: Acute (5) Anemia Status: Acute (6) Cellulitis Status: Acute (7) Cellulitis of both lower extremities Status: Acute (8) CHF (congestive heart failure) Status: Acute (9) CHF (congestive heart failure) Status: Acute (10) Dehydration Status: Acute (11) Fluid overload Status: Acute (12) Hypoxia Status: Acute (13) Pickwickian syndrome Status: Acute (14) Pneumonia Status: Acute (15) Respiratory failure Status: Acute (16) Sacral decubitus ulcer, stage III Status: Acute (17) UTI (urinary tract infection) Status: Acute (18) UTI (urinary tract infection) due to urinary indwelling Lerner catheter Status: Acute Review of Systems Constitutional: No fever Respiratory: No shortness of breath Cardiac: No chest pain Breast: + see HPI Abdomen: No pain Musculoskeletal: + see HPI Skin: + itch Objective Vital Signs Last Vital Signs Documentation Date Time Temp Pulse Resp B/P (MAP) Pulse Ox O2 Delivery O2 Flow Rate FiO2 12/06/17 16:54 82 82/57 (65) 12/06/17 08:45 Oxymask 7.0 12/06/17 07:30 36.8 20 90 12/05/17 16:31 96 Physical Exam: General Appearance: no apparent distress, + obese ENT: hearing grossly normal Neck: trachea midline Respiratory/Chest: no respiratory distress, no accessory muscle use, + decreased breath sounds (throughout due to body habitus) Cardiovascular: regular rate, rhythm, no murmur, + pertinent finding (anasarca , 2+ pitting edema LEs, abdomen, even thorax) Abdomen: normal bowel sounds, non tender (and morbidly obese), soft Extremities: no calf tenderness Neurologic/Psychiatric: alert, normal mood/affect Skin: normal color, + pertinent finding (multiple excoriations as before) Lymphatic: no adenopathy Assessment and Plan 1. Kjefi-[id number]-[id number] heart failure. 2. Cor pulmonale with severe pulmonary hypertension and RV dysfunction. 3. Stage IV chronic kidney disease. 4. Morbid obesity with obstructive sleep apnea. 5. Severe chronic obstructive pulmonary disease, oxygen dependent. 6. Type 2 diabetes. 7. Venous ulcerations. 8. Chronic indwelling Lerner. Urine output declining, SCr increasing on current diuretics Relative hypotenison but appears reasonably perfused on exam. Persistent anasarca. -- concern for relative intravascular depletion following initial diuresis with reduced cardiac output in the setting of severe RV dysfunction. In that setting would hold on additional diuretics today and tomorrow morning and reassess tomorrow. -- hold beta-lety for relative hypotension. Will continue to follow. Continued [facility] stay due to: voiding difficulties, ambulation difficulties, multiple IV medications needed, home environment unsafe for pt Discharge planning: senior living facility Medications: Current Inpatient Medications Medications (Trade) Dose Ordered Sig/Bruno Route Start Time Stop Time Status Last Admin Dose Admin Bumetanide (Bumex Tab) 2 mg BID17 PO 11/30/17 09:00 12/30/17 08:59 Future Hold Enoxaparin Sodium (Lovenox Inj) 30 mg Q12 SQ 11/29/17 21:00 12/29/17 20:59 11/30/17 10:02 30 MG Acetaminophen (Tylenol Tab) 650 mg Q4H PRN PO 11/29/17 18:30 12/29/17 18:29 Al Hydrox/Mg Hydrox/Simethicone (Maalox Max Susp) 15 ml Q4H PRN PO 11/29/17 18:30 12/29/17 18:29 Magnesium Hydroxide (Milk Of Magnesia Susp) 30 ml Q6H PRN PO 11/29/17 18:30 12/29/17 18:29 Polyethylene (Miralax Powder Packet) 17 gm DAILY PRN PO 11/29/17 18:30 12/29/17 18:29 Ondansetron HCl (Zofran Inj) 4 mg Q6H PRN IV 11/29/17 18:30 12/29/17 18:29 Insulin Aspart (novoLOG ASPART) SLIDING SCALE G... ACHS SC 11/29/17 21:00 5/13/18 20:59 12/06/17 13:38 5 UNITS Clotrimazole (Lotrimin 1% Crm) 1 appln Q12 PRN EXT 11/29/17 18:30 12/29/17 18:29 Docusate Sodium (coLACE CAP) 100 mg HS PO 11/29/17 21:00 12/29/17 20:59 12/02/17 21:28 100 MG Ergocalciferol (Vitamin D Cap) 50,000 interunit Fr@0900 PO 12/06/17 09:00 01/05/18 08:59 12/06/17 09:00 50,000 INTERUNIT Heparin Sodium (Porcine) (Heparin 10 Unit/ ml 5 ml Flush) 5 ml BID FLUSH 11/29/17 20:00 12/29/17 20:59 12/06/17 08:01 5 ML Albuterol/ Ipratropium (Duoneb) 3 ml Q4H PRN INH 11/29/17 18:30 12/29/17 18:29 12/03/17 10:25 3 ML Albuterol/ Ipratropium (Duoneb) 3 ml Q6R INH 11/29/17 21:00 12/29/17 20:59 12/06/17 07:11 3 ML Multivitamins/ Minerals (Multivitamin W/ Minerals Tab) 1 tab DAILY PO 11/30/17 08:00 12/30/17 08:59 Spironolactone (Aldactone Tab) 25 mg DAILY PO 11/30/17 08:00 12/30/17 08:59 12/06/17 09:00 25 MG Trazodone HCl (Desyrel Tab) 25 mg HS PO 11/29/17 21:00 12/29/17 20:59 Bisacodyl (Dulcolax Supp) 10 mg DAILY PRN [place] 11/29/17 18:30 12/29/17 18:29 Buspirone HCl (Buspar Tab) 5 mg Q12 PRN PO 11/29/17 18:30 12/29/17 18:29 Guaifenesin (Robitussin Sugar Free Syrup) 200 mg QID PO 11/29/17 20:00 12/29/17 20:59 Miscellaneous Information (Order Awaiting Action) 1 ea QS N/A 11/30/17 00:00 12/30/17 00:00 Miscellaneous (Iv Fluids Completed) 1 ea PRN PRN N/A 11/29/17 19:15 11/29/18 19:14 Miconazole Nitrate (Desenex Powder) 1 appln UD PRN EXT 11/30/17 19:00 12/30/17 18:59 Oxycodone HCl (Roxicodone Immediate Rel Tab) 10 mg Q4H PRN PO 12/01/17 11:15 12/13/17 18:29 12/04/17 22:23 10 MG Heparin Sodium (Porcine) (Heparin 10 Unit/ ml 5 ml Flush) 5 ml PRN PRN FLUSH 12/02/17 15:45 01/01/18 15:44 12/06/17 13:40 5 ML Diclofenac Sodium (Voltaren 1% Top Gel) 1 appln QID EXT 12/02/17 20:00 01/01/18 19:59 12/03/17 21:27 1 APPLN Metolazone (Zaroxolyn Tab) 5 mg Q24H PO 12/03/17 13:30 01/02/18 13:29 12/06/17 13:39 5 MG Fluconazole (Diflucan Tab) 100 mg DAILY PO 12/04/17 08:00 12/10/17 08:59 12/06/17 09:00 100 MG Insulin Glargine (Lantus Solostar Pen) 12 units QAM SQ 12/05/17 08:00 12/30/17 08:59 12/06/17 09:06 10 UNITS Ketoconazole (Nizoral 2% Crm) 1 appln BID EXT 12/04/17 20:00 12/14/17 19:59 Artificial Tears (Artificial Tears) 2 drops Q3H PRN OP 12/04/17 11:15 01/03/18 11:14 Diphenhydramine HCl (Benadryl Cap) 25 mg Q4H PRN PO 12/04/17 19:00 01/03/18 18:59 12/04/17 20:35 25 MG Metoprolol Tartrate (Lopressor Tab) 12.5 mg BID PO 12/06/17 20:00 01/04/18 19:59 Bumetanide 2 mg/ Syringe 8 ml @ 4 mls/min TID IV 12/06/17 14:00 01/05/18 13:59 12/06/17 13:20 4 MLS/MIN Albumin Human (Albumin 25%) 12.5 gm DAILY@0800,0900 IV 12/07/17 08:00 12/10/17 07:59 Lab Results: 12/06/17 08:01 Red Blood Count 3.84, Mean Corpuscular Volume 87.8, Mean Corpuscular Hemoglobin 27.3, Mean Corpuscular Hemoglobin Concent 31.2, Mean Platelet Volume 9.8, Neutrophils (%) (Auto) 79.4, Lymphocytes (%) (Auto) 11.2, Monocytes (%) (Auto) 8.1, Eosinophils (%) (Auto) 0.9, Basophils (%) (Auto) 0.2, Neutrophils # (Auto) 7.76, Lymphocytes # (Auto) 1.10, Monocytes # (Auto) 0.79, Eosinophils # (Auto) 0.09, Basophils # (Auto) 0.02 12/06/17 08:01 Test 12/06/17 08:01 12/06/17 16:55 White Blood Count 9.78 K/uL (4.8-10.8) Red Blood Count 3.84 M/uL (4.2-5.4) Hemoglobin 10.5 g/dL (12.0-16.0) Hematocrit 33.7 % (37-47) Mean Corpuscular Volume 87.8 fL (80-100) Mean Corpuscular Hemoglobin 27.3 pg (25-34) Mean Corpuscular Hemoglobin Concent 31.2 g/dl (32-36) Platelet Count 176 K/uL (130-400) Mean Platelet Volume 9.8 fL (7.4-10.4) Neutrophils (%) (Auto) 79.4 % Lymphocytes (%) (Auto) 11.2 % Monocytes (%) (Auto) 8.1 % Eosinophils (%) (Auto) 0.9 % Basophils (%) (Auto) 0.2 % Neutrophils # (Auto) 7.76 K/uL (1.4-6.5) Lymphocytes # (Auto) 1.10 K/uL (1.2-3.4) Monocytes # (Auto) 0.79 K/uL (0.11-0.59) Eosinophils # (Auto) 0.09 K/uL (0-0.5) Basophils # (Auto) 0.02 K/uL (0-0.2) RDW Standard Deviation 66.1 fL (36.4-46.3) RDW Coefficient of Variation 20.6 % (11.5-14.5) Immature Granulocyte % (Auto) 0.2 % Immature Granulocyte # (Auto) 0.02 K/uL (0.00-0.02) Poikilocytosis PRESENT Anisocytosis PRESENT Anion Gap 8.0 mmol/L (3-11) Est Creatinine Clear Calc Drug Dose 35.7 ml/min Estimated GFR () 24.5 Estimated GFR (Non- 21.2 BUN/Creatinine Ratio 31.4 (10-20) Calcium Level 8.3 mg/dl (8.5-10.1) Magnesium Level 2.0 mg/dl (1.8-2.4) Total Bilirubin 0.5 mg/dl (0.2-1) Direct Bilirubin 0.2 mg/dl (0-0.2) Aspartate Amino Transf (AST/SGOT) 7 U/L (15-37) Alanine Aminotransferase (ALT/SGPT) 8 U/L (12-78) Alkaline Phosphatase 70 U/L (45-117) Total Protein 6.0 gm/dl (6.4-8.2) Albumin 2.5 gm/dl (3.4-5.0) Bedside Glucose 171 mg/dl (70-90)
--- NOTE | 2017-12-06 20:44 | NEPHROLOGY CONSULTATION ---
DATE OF CONSULTATION: 12/06/2017 ATTENDING OF RECORD: Lucius Giraldo MD HISTORY OF PRESENT ILLNESS: This is a 57-year-old female who presented with pneumonia and then sent back to the [facility]. The patient has gained a significant amount of fluid over the last several weeks despite adjustments in diuretics and secondary to the worsening weight gains and swelling, the patient was admitted to the hospital on the with a creatinine of 2.12 and currently now is 2.42, currently on Bumex 2 mg IV t.i.d., down from 3 mg IV t.i.d. Has a Lerner catheter in place, weight on the was 138 kg and is currently 131 kg so down about 15 pounds urinating about 2-3 L a day. REVIEW OF SYSTEMS: No fevers or chills. No chest pain. Does have shortness of breath with exertion. Positive swelling in legs. No itching, no blurry vision, no dysphagia. No headaches. All other review of systems otherwise negative. PAST MEDICAL HISTORY: Diastolic heart failure, pulmonary hypertension, obstructive sleep apnea on BiPAP, type 2 diabetes, CKD, which varies based on volume status. Positive decubitus ulcers and venous stasis ulcers, COPD, gout. PAST SURGICAL HISTORY: Left hip fracture repair, , IVC filter. FAMILY HISTORY: Significant for heart disease. SOCIAL HISTORY: No alcohol. No tobacco. No drugs. Currently a resident at [facility] previous smoker but quit in the remote past. CURRENT MEDICATIONS: Lopressor 12.5 p.o. b.i.d., Bumex 2 mg IV t.i.d., vitamin D 50,000 units weekly, Lantus 12 units subQ daily, Diflucan 100 mg daily, metolazone 5 mg daily, heparin as needed, multivitamin, spironolactone 25 mg daily, Lovenox 30 mg subQ q. 12, Trazodone 25 mg at night. PHYSICAL EXAMINATION: VITAL SIGNS: Temperature 36.8, pulse 88, respiratory rate is 20, blood pressure 94/62, satting 90% on 7 L OxyMask. GENERAL: Awake, alert, oriented x3. EYES: No scleral icterus. ENT: Moist mucous membranes. NECK: Supple. PULMONARY: Decreased breath sounds at the bases. CARDIAC: Distant heart sounds. ABDOMEN: Positive ventral hernia. EXTREMITIES: +1 to 2 edema. NEUROLOGICALLY: Nonfocal. DERMATOLOGIC: Multiple healing ulcers of varying stages. LABORATORIES: White count is 9.7, H and H 10.5 and 33.7, platelet count is 176. Sodium is 135, potassium 4.7, chloride is 97, bicarbonate is 30, BUN 76, creatinine is 2.42, glucose 175, calcium is 8.3, mag is 2. Albumin is 2.5. UA concerning for infection. Urine culture grew pseudomonas and Klebsiella. IMPRESSION AND PLAN: Acute kidney injury on chronic kidney disease. Creatinine has varied quite a bit through her multiple hospitalizations. Currently on spironolactone, metolazone, and Bumex. Bumex was recently reduced. Given her low albumin, I would give her a small trial of albumin 25 g IV daily for the next 3 days to see if we can help mobilize extra fluid and improve perfusion to the kidneys while continuing to diurese. No indication for emergent dialysis at this time. We will follow along, greatly appreciate the consultation. ROWENA
[2017-12-06] MEDS: TRAZODONE HCL 50 MG TAB PO SCH (20:45)
[2017-12-06] MEDS: DOCUSATE SODIUM 100 MG CAP PO SCH (20:45)
[2017-12-06] MEDS: OXYCODONE HCL IR 5 MG TAB (IMMEDIATE RELEASE) PO PRN (23:13)
[2017-12-07] VITALS (8 sets, daily range): BP systolic 89–94; BP diastolic 62–64; PULSE 86–110; TEMP 36.4–36.6; O2SAT 88–95
[2017-12-07] MEDS: ALBUT/IPRATROP 3MG/0.5MG NEB 3 ML VIAL INH SCH ×4 (01:54→19:23)
[2017-12-07] MEDS: METOPROLOL TARTRATE 25 MG TAB PO SCH (08:00)
[2017-12-07 08:44] LABS: CALCIUM 8.1 mg/dl (8.5-10.1); CREATININE 2.84 mg/dl (0.60-1.20); POTASSIUM 4.9 mmol/L (3.5-5.1)
[2017-12-07] MEDS: ENOXAPARIN 30 MG/0.3 ML SYR SQ SCH ×2 (09:00→20:34)
--- NOTE | 2017-12-07 09:03 | Nephrology Progress Note ---
Nephrology Progress Note Date of Service: Dec 07, 2017. Subjective 57 yo female with obesity, volume overload, worsening kidney function. started albumin yesterday. creatinine continues to trend up today. diuretics have been placed on hold. pt was able to tolerate her bipap mask the entire night last night. Objective Date Time Temp Pulse Resp B/P (MAP) Pulse Ox O2 Delivery O2 Flow Rate FiO2 12/07/17 07:25 36.6 86 20 94/62 (73) 12/07/17 07:22 90 20 89 Mask 7.0 12/07/17 01:54 89 22 92 BiPAP/CPAP 6.0 12/07/17 00:05 Oxymask 7.0 12/06/17 23:35 108 95 12/06/17 23:06 36.6 89 20 94/60 (71) 84 Oxymask 7.0 12/06/17 20:47 82 20 85 Mask 6.5 12/06/17 20:43 88 92/61 (71) 12/06/17 16:54 82 82/57 (65) 12/06/17 16:00 Oxymask 7.0 Physical Exam: General-aaox3, obese Eyes-no scleral icterus ENT-mmm Neck-supple Lungs-decreased at bases Heart-rrr Abdomen-bs+, pannus+ Extremities-mild edema with slowly healing chronic wounds on ankles Neuro-nonfocal Current Inpatient Medications Medications (Trade) Dose Ordered Sig/Bruno Route Start Time Stop Time Status Last Admin Dose Admin Bumetanide (Bumex Tab) 2 mg BID17 PO 11/30/17 09:00 12/30/17 08:59 Future Hold Enoxaparin Sodium (Lovenox Inj) 30 mg Q12 SQ 11/29/17 21:00 12/29/17 20:59 11/30/17 10:02 30 MG Acetaminophen (Tylenol Tab) 650 mg Q4H PRN PO 11/29/17 18:30 12/29/17 18:29 Al Hydrox/Mg Hydrox/Simethicone (Maalox Max Susp) 15 ml Q4H PRN PO 11/29/17 18:30 12/29/17 18:29 Magnesium Hydroxide (Milk Of Magnesia Susp) 30 ml Q6H PRN PO 11/29/17 18:30 12/29/17 18:29 Polyethylene (Miralax Powder Packet) 17 gm DAILY PRN PO 11/29/17 18:30 12/29/17 18:29 Ondansetron HCl (Zofran Inj) 4 mg Q6H PRN IV 11/29/17 18:30 12/29/17 18:29 Insulin Aspart (novoLOG ASPART) SLIDING SCALE G... ACHS SC 11/29/17 21:00 12/29/17 20:59 12/06/17 18:03 3 UNITS Clotrimazole (Lotrimin 1% Crm) 1 appln Q12 PRN EXT 11/29/17 18:30 12/29/17 18:29 Docusate Sodium (coLACE CAP) 100 mg HS PO 11/29/17 21:00 12/29/17 20:59 12/02/17 21:28 100 MG Ergocalciferol (Vitamin D Cap) 50,000 interunit Fr@0900 PO 12/06/17 09:00 01/05/18 08:59 12/06/17 09:00 50,000 INTERUNIT Heparin Sodium (Porcine) (Heparin 10 Unit/ ml 5 ml Flush) 5 ml BID FLUSH 11/29/17 20:00 12/29/17 20:59 12/07/17 08:05 5 ML Albuterol/ Ipratropium (Duoneb) 3 ml Q4H PRN INH 11/29/17 18:30 12/29/17 18:29 12/03/17 10:25 3 ML Albuterol/ Ipratropium (Duoneb) 3 ml Q6R INH 11/29/17 21:00 12/29/17 20:59 12/07/17 07:18 3 ML Multivitamins/ Minerals (Multivitamin W/ Minerals Tab) 1 tab DAILY PO 11/30/17 08:00 12/30/17 08:59 Spironolactone (Aldactone Tab) 25 mg DAILY PO 11/30/17 08:00 12/30/17 08:59 Future Hold 12/06/17 09:00 25 MG Trazodone HCl (Desyrel Tab) 25 mg HS PO 11/29/17 21:00 12/29/17 20:59 Bisacodyl (Dulcolax Supp) 10 mg DAILY PRN [place] 11/29/17 18:30 12/29/17 18:29 Buspirone HCl (Buspar Tab) 5 mg Q12 PRN PO 11/29/17 18:30 12/29/17 18:29 Guaifenesin (Robitussin Sugar Free Syrup) 200 mg QID PO 11/29/17 20:00 12/29/17 20:59 Miscellaneous Information (Order Awaiting Action) 1 ea QS N/A 11/30/17 00:00 12/30/17 00:00 Miscellaneous (Iv Fluids Completed) 1 ea PRN PRN N/A 11/29/17 19:15 11/29/18 19:14 Miconazole Nitrate (Desenex Powder) 1 appln UD PRN EXT 11/30/17 19:00 12/30/17 18:59 Oxycodone HCl (Roxicodone Immediate Rel Tab) 10 mg Q4H PRN PO 12/01/17 11:15 12/13/17 18:29 12/06/17 23:13 10 MG Heparin Sodium (Porcine) (Heparin 10 Unit/ ml 5 ml Flush) 5 ml PRN PRN FLUSH 12/02/17 15:45 01/01/18 15:44 12/06/17 13:40 5 ML Diclofenac Sodium (Voltaren 1% Top Gel) 1 appln QID EXT 12/02/17 20:00 01/01/18 19:59 12/03/17 21:27 1 APPLN Metolazone (Zaroxolyn Tab) 5 mg Q24H PO 12/03/17 13:30 01/02/18 13:29 Future Hold 12/06/17 13:39 5 MG Fluconazole (Diflucan Tab) 100 mg DAILY PO 12/04/17 08:00 12/10/17 08:59 12/06/17 09:00 100 MG Insulin Glargine (Lantus Solostar Pen) 12 units QAM SQ 12/05/17 08:00 12/30/17 08:59 12/06/17 09:06 10 UNITS Ketoconazole (Nizoral 2% Crm) 1 appln BID EXT 12/04/17 20:00 12/14/17 19:59 Artificial Tears (Artificial Tears) 2 drops Q3H PRN OP 12/04/17 11:15 01/03/18 11:14 Diphenhydramine HCl (Benadryl Cap) 25 mg Q4H PRN PO 12/04/17 19:00 01/03/18 18:59 12/04/17 20:35 25 MG Metoprolol Tartrate (Lopressor Tab) 12.5 mg BID PO 12/06/17 20:00 01/04/18 19:59 Bumetanide 2 mg/ Syringe 8 ml @ 4 mls/min TID IV 12/06/17 14:00 01/05/18 13:59 Future Hold 12/06/17 13:20 4 MLS/MIN Albumin Human (Albumin 25%) 12.5 gm DAILY@0800,0900 IV 12/07/17 08:00 12/10/17 07:59 Last 24 Hours Test 12/06/17 12:01 12/06/17 16:55 12/07/17 08:01 Bedside Glucose 177 mg/dl 171 mg/dl Sodium Level 134 mmol/L Potassium Level 4.9 mmol/L Chloride Level 96 mmol/L Carbon Dioxide Level 30 mmol/L Anion Gap 8.0 mmol/L Blood Urea Nitrogen 83 mg/dl Creatinine 2.84 mg/dl Est Creatinine Clear Calc Drug Dose 29.2 ml/min Estimated GFR () 20.2 Estimated GFR (Non- 17.4 BUN/Creatinine Ratio 29.1 Random Glucose 182 mg/dl Calcium Level 8.1 mg/dl Assessment & Plan ELIZABETH-urinating less-diuretics on hold-creatinine trending up-giving albumin to help mobilize fluids better. hopefully creatinine peaks and starts to trend down and once fluids [id number] restart diuretics at that time.
[2017-12-07] MEDS: FLUCONAZOLE 100 MG TAB PO SCH (09:24)
[2017-12-07] MEDS: ALBUMIN HUMAN 25% 12.5 GM/50 ML VIAL IV SCH ×2 (09:24→10:30)
[2017-12-07] MEDS: DICLOFENAC SOD 1% GEL 100 GM TUBE EXT SCH ×3 (09:25→15:36)
[2017-12-07] MEDS: KETOCONAZOLE 2% CR 15 GM TUBE EXT SCH (09:25)
[2017-12-07] MEDS: GUAIFENESIN SUGAR FREE 200 MG/10 ML UDC PO SCH ×3 (09:26→15:36)
[2017-12-07] MEDS: CEROVITE ADV FORMULA TAB PO SCH (09:26)
[2017-12-07] MEDS: INSULIN ASPART 100 UNITS/ML 3 ML PEN SC SCH ×4 (09:30→20:36)
[2017-12-07] MEDS: INSULIN GLARGINE SOLOSTAR 100 UNITS/ML 3 ML PEN SQ SCH (09:31)
[2017-12-07] MEDS ORDERED: ARTIFICIAL TEARS OP OINT 3.5 GM TUBE OP ONE (09:40)
--- NOTE | 2017-12-07 09:59 | Hospitalist Progress Note ---
Hospitalist Progress Note Date of Service Dec 07, 2017. Subjective Pt evaluation today including: conversation w/ patient UOP decreased since stopping diuretics yesterday. Appeals Representative rising, BPs on the lower side, but asymptomatic. No CP or worsening SOB. Her biggest complaint is her left eye irritation and drainage. Says the refresh tears are not helping. All Other Systems: Reviewed and Negative Objective Vital Signs Date Time Temp Pulse Resp B/P (MAP) Pulse Ox O2 Delivery O2 Flow Rate FiO2 12/07/17 07:25 36.6 86 20 94/62 (73) 12/07/17 07:22 90 20 89 Mask 7.0 12/07/17 01:54 89 22 92 BiPAP/CPAP 6.0 12/07/17 00:05 Oxymask 7.0 12/06/17 23:35 108 95 12/06/17 23:06 36.6 89 20 94/60 (71) 84 Oxymask 7.0 12/06/17 20:47 82 20 85 Mask 6.5 12/06/17 20:43 88 92/61 (71) 12/06/17 16:54 82 82/57 (65) 12/06/17 16:00 Oxymask 7.0 Physical Exam General Appearance: no apparent distress, + obese (morbidly) Eyes: + pertinent finding (OD with obvious cataract, pupil smaller than OS and minimally reposnive to light; OS with normal lids and lashes except small amount green-yellow crust, conjunctiva normal, sclera normal, pupil round and responsive to light, EOMI, no pain) ENT: hearing grossly normal Neck: trachea midline Respiratory/Chest: no respiratory distress, no accessory muscle use, + decreased breath sounds (throughout, very difficult to suscultate due to body habitus) Cardiovascular: regular rate, rhythm, + pertinent finding (3+ pitting edema LEs all the way up through to ther thorax) Abdomen: normal bowel sounds, non tender, soft (and morbidly obese) Extremities: no calf tenderness Neurologic/Psychiatric: alert, normal mood/affect, oriented x 3 Skin: + pertinent finding (bilateral ankles with dressings in place with kerlix wrapped, not removed) Laboratory Results Last 24 Hours Test 12/06/17 12:01 12/06/17 16:55 12/07/17 08:01 12/07/17 08:07 Bedside Glucose 177 mg/dl 171 mg/dl 171 mg/dl Sodium Level 134 mmol/L Potassium Level 4.9 mmol/L Chloride Level 96 mmol/L Carbon Dioxide Level 30 mmol/L Anion Gap 8.0 mmol/L Blood Urea Nitrogen 83 mg/dl Creatinine 2.84 mg/dl Est Creatinine Clear Calc Drug Dose 29.2 ml/min Estimated GFR () 20.2 Estimated GFR (Non- 17.4 BUN/Creatinine Ratio 29.1 Random Glucose 182 mg/dl Calcium Level 8.1 mg/dl Assessment and Plan This pt is a 57yo female with: 1. Acute/chronic hypoxic respiratory failure - acute component due to worsening CHF. See below.-stable -Continue supplemental O2 and diuresis attempts 2. Acute/chronic combined systolic/diastolic CHF along with severe acute/ chronic right-sided heart failure (cor pulmonale)- Her weight on admission was up at least 10kg in comparison to her previous hospital d/c date of 11/14/17. *Echo: Grossly normal LV size and wall thickness.Moderate LV dysfunction. LVEF 35-40%. Severe inferolateral hypokinesis. Flattened septum consistent with RV pressure/ volume overload.Severely dilated RV with moderate RV dysfunction.[id number] eccentric mitral regurgitation.Aortic valve sclerosis without stenosis.Moderate to severe TR.Severe pulmonary hypertension. Estimated PASP 80-85 mmHg. Dilated IVC , estimated RA 15 mmHg. 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 -Poor candidate for ANA LUISA or ARB due to CKD. She historically has been exceptionally challenging to manage due to a number of factors including poor self-care, poor compliance w/ diet, etc. -Prognosis is very poor. 3. Severe pulmonary HTN - has worsened over time. I presume her pulmonary HTN is from long-standing, poorly treated ROHAN and/or VTE. -not a candidate for sildenafil, etc. 4. ROHAN - on BIPAP. Cont NC O2. She is willing to use BiPAP for at least several hours each night 5. COPD - does not appear to be in exacerbation at this time. -Continue nebulized bronchodilators as needed 6. Acute renal insufficiency in setting of CKD stage 3-4 - creatinine and BUN worsening again with increase to 2.84 today. -Follow PRP -avoid nephrotoxins -renally dose meds -consult Nephrology appreciated -continue IV albumin 7. DVT proph - has IVC filter in place along with lovenox 30mg BID. 8. chronic rodriguez catheter usage/colonization with Pseudomonas and Klebsiella without true UTI-Rodriguez was exchanged 2 weeks VERIFICATION REP but ordered to exchange again as per ID recommendations given Pseudomonas and Klebsiella--> however pt refusing for now until due for next routine change out -Discussed with ID-no antibiotics to be given at this time 9. morbid obesity with BMI 48.2 10. h/o sacral decubitus ulcer - seen by wound care. -using air mattress 11. b/l foot/heel/achilles ulcers - seen by wound care. No evidence of acute infection -ordered daily dressing changes by RNs 12. ?cirrhosis - CT abd/pelvis in October 2017 showed cirrhotic changes. Suspect this would be from ALFREDO. With hypoalbuminemia, normal LFTs, normal platelets, INR not checked this admission Certainly cirrhosis could be playing a role in her volume overload state. 13. T2DM - control sufficient now after increase in Lantus. Hemoglobin A1c 7.8 % this month -continue Accu-Cheks and basal bolus insulin 14. positive troponin - likely myocardial demand ischemia in setting of acute/ chronic CHF, asymptomatic 15. chronic pain syndrome - cont oxycodone 10mg q4h prn. 16. right shoulder pain - voltaren gel qid; has chronic deformity 17. Chronic Enedina intertrigo-maintains chronic fluconazole therapy-says normally she is on it daily but since changing to every other day, has noticed return of her rashes -increased back to once daily dosing at her request, follow LFTs periodically- normal on 12/06 18. Seborrheic dermatitis on face- -continue ketoconazole cream 19. Left eye chronic exudate-suspect dry eye especially in setting of diuretic use. No evidence at all of infection or red eye, iritis, etc. Artificial tears not helping -continue artifical tears prn -add Lacrilube ointment bid -no need for Ophthalmology consult as she is requesting 20. RUQ abd pain-suspect MSK from coughing. Now resolved -observe for worsening Disposition-now with worsening renal function, inability to diurese, will remain in hospital for likely at least several more days PT/OT consultations prior to discharge back to [facility] appreciate consultation by service excellent and nursing supervisor accounting clerks
[2017-12-07] MEDS ORDERED: NURSING VERBAL MED ORDER ONE (16:45)
[2017-12-07] MEDS: ARTIFICIAL TEARS OP OINT 3.5 GM TUBE OP SCH (20:34)
[2017-12-07] MEDS: OXYCODONE HCL IR 5 MG TAB (IMMEDIATE RELEASE) PO PRN (22:35)
[2017-12-08] VITALS (7 sets, daily range): BP systolic 97–121; BP diastolic 55–65; PULSE 90–112; TEMP 36.6–36.7; O2SAT 88–95
[2017-12-08] MEDS: ALBUT/IPRATROP 3MG/0.5MG NEB 3 ML VIAL INH SCH ×4 (02:42→20:15)
[2017-12-08] MEDS: ARTIFICIAL TEARS OP OINT 3.5 GM TUBE OP SCH ×2 (08:00→20:44)
[2017-12-08 08:30] LABS: HEMATOCRIT 32.1 % (37-47); HEMOGLOBIN 10.1 g/dL (12.0-16.0); MEAN CELL VOLUME 86.8 fL (80-100); MEAN CORPUSCULAR HEMOGLOBIN 27.3 pg (25-34); MEAN CORPUSCULAR HGB CONC 31.5 g/dl (32-36); MEAN PLATELET VOLUME 9.7 fL (7.4-10.4); PLATELET COUNT 161 K/uL (130-400); RED CELL DISTRIBUTION WIDTH CV 20.3 % (11.5-14.5); WHITE BLOOD COUNT 9.97 K/uL (4.8-10.8)
[2017-12-08 08:55] LABS: CALCIUM 8.1 mg/dl (8.5-10.1); CREATININE 3.22 mg/dl (0.60-1.20); POTASSIUM 4.9 mmol/L (3.5-5.1)
[2017-12-08] MEDS: ENOXAPARIN 30 MG/0.3 ML SYR SQ SCH ×2 (09:00→18:12)
[2017-12-08] MEDS: FLUCONAZOLE 100 MG TAB PO SCH (09:18)
[2017-12-08] MEDS: ALBUMIN HUMAN 25% 12.5 GM/50 ML VIAL IV SCH ×2 (09:21→10:15)
[2017-12-08] MEDS: INSULIN ASPART 100 UNITS/ML 3 ML PEN SC SCH ×4 (09:26→20:44)
--- NOTE | 2017-12-08 09:26 | Nephrology Progress Note ---
Nephrology Progress Note Date of Service: Dec 08, 2017. Subjective 57 yo female with obesity, volume overload, worsening kidney function. bp is low. urinating less. pt though using bipap. pt still alert and eating well. not uremic. Objective Date Time Temp Pulse Resp B/P (MAP) Pulse Ox O2 Delivery O2 Flow Rate FiO2 12/08/17 08:00 36.6 90 22 97/62 (74) 95 5.0 12/08/17 07:29 94 20 88 Mask 7.0 12/08/17 02:42 92 22 89 Mask 7.0 12/08/17 00:25 Oxymask 7.0 12/07/17 23:03 110 95 6.0 12/07/17 22:53 36.4 94 20 89/64 (72) 90 Oxymask 7.0 12/07/17 20:15 Oxymask 7.0 12/07/17 19:23 90 22 88 Mask 7.0 12/07/17 16:45 Oxymask 7.0 12/07/17 15:34 36.5 92 22 94/63 (73) 89 Oxymask 7.0 12/07/17 14:39 92 22 89 Mask 7.0 12/07/17 09:30 Oxymask 7.0 Physical Exam: General-aaox3, obese Eyes-no scleral icterus ENT-mmm Neck-supple Lungs-decreased at bases Heart-regular Abdomen-bs+, pannus+ Extremities-+2 to 3 edema mostly in upper thighs and hips-dependent areas Neuro-nonfocal Current Inpatient Medications Medications (Trade) Dose Ordered Sig/Bruno Route Start Time Stop Time Status Last Admin Dose Admin Bumetanide (Bumex Tab) 2 mg BID17 PO 11/30/17 09:00 12/30/17 08:59 Future Hold Enoxaparin Sodium (Lovenox Inj) 30 mg Q12 SQ 11/29/17 21:00 12/29/17 20:59 11/30/17 10:02 30 MG Acetaminophen (Tylenol Tab) 650 mg Q4H PRN PO 11/29/17 18:30 12/29/17 18:29 Al Hydrox/Mg Hydrox/Simethicone (Maalox Max Susp) 15 ml Q4H PRN PO 11/29/17 18:30 12/29/17 18:29 Magnesium Hydroxide (Milk Of Magnesia Susp) 30 ml Q6H PRN PO 11/29/17 18:30 12/29/17 18:29 Polyethylene (Miralax Powder Packet) 17 gm DAILY PRN PO 11/29/17 18:30 12/29/17 18:29 Ondansetron HCl (Zofran Inj) 4 mg Q6H PRN IV 11/29/17 18:30 12/29/17 18:29 Insulin Aspart (novoLOG ASPART) SLIDING SCALE G... ACHS SC 11/29/17 21:00 12/29/17 20:59 12/07/17 18:27 4 UNITS Clotrimazole (Lotrimin 1% Crm) 1 appln Q12 PRN EXT 11/29/17 18:30 12/29/17 18:29 Ergocalciferol (Vitamin D Cap) 50,000 interunit Fr@0900 PO 12/06/17 09:00 01/05/18 08:59 12/06/17 09:00 50,000 INTERUNIT Heparin Sodium (Porcine) (Heparin 10 Unit/ ml 5 ml Flush) 5 ml BID FLUSH 11/29/17 20:00 12/29/17 20:59 12/08/17 07:55 5 ML Albuterol/ Ipratropium (Duoneb) 3 ml Q4H PRN INH 11/29/17 18:30 12/29/17 18:29 12/03/17 10:25 3 ML Albuterol/ Ipratropium (Duoneb) 3 ml Q6R INH 11/29/17 21:00 12/29/17 20:59 12/08/17 07:27 3 ML Spironolactone (Aldactone Tab) 25 mg DAILY PO 11/30/17 08:00 12/30/17 08:59 Future Hold 12/06/17 09:00 25 MG Bisacodyl (Dulcolax Supp) 10 mg DAILY PRN [place] 11/29/17 18:30 12/29/17 18:29 Buspirone HCl (Buspar Tab) 5 mg Q12 PRN PO 11/29/17 18:30 12/29/17 18:29 Miscellaneous (Iv Fluids Completed) 1 ea PRN PRN N/A 11/29/17 19:15 11/29/18 19:14 Miconazole Nitrate (Desenex Powder) 1 appln UD PRN EXT 11/30/17 19:00 12/30/17 18:59 Oxycodone HCl (Roxicodone Immediate Rel Tab) 10 mg Q4H PRN PO 12/01/17 11:15 12/13/17 18:29 12/07/17 22:35 10 MG Heparin Sodium (Porcine) (Heparin 10 Unit/ ml 5 ml Flush) 5 ml PRN PRN FLUSH 12/02/17 15:45 01/01/18 15:44 12/06/17 13:40 5 ML Metolazone (Zaroxolyn Tab) 5 mg Q24H PO 12/03/17 13:30 01/02/18 13:29 Future Hold 12/06/17 13:39 5 MG Fluconazole (Diflucan Tab) 100 mg DAILY PO 12/04/17 08:00 12/10/17 08:59 12/07/17 09:24 100 MG Insulin Glargine (Lantus Solostar Pen) 12 units QAM SQ 12/05/17 08:00 12/30/17 08:59 12/07/17 09:31 10 UNITS Artificial Tears (Artificial Tears) 2 drops Q3H PRN OP 12/04/17 11:15 01/03/18 11:14 Diphenhydramine HCl (Benadryl Cap) 25 mg Q4H PRN PO 12/04/17 19:00 01/03/18 18:59 12/04/17 20:35 25 MG Metoprolol Tartrate (Lopressor Tab) 12.5 mg BID PO 12/06/17 20:00 01/04/18 19:59 Future Hold Bumetanide 2 mg/ Syringe 8 ml @ 4 mls/min TID IV 12/06/17 14:00 01/05/18 13:59 Future Hold 12/06/17 13:20 4 MLS/MIN Albumin Human (Albumin 25%) 12.5 gm DAILY@0800,0900 IV 12/07/17 08:00 12/10/17 07:59 12/07/17 10:30 12.5 GM Artificial Tears (Lacri-Lube Oph Oint) 1 appln BID OP 12/07/17 20:00 01/06/18 19:59 Last 24 Hours Test 12/07/17 12:05 12/07/17 16:42 12/08/17 07:48 12/08/17 07:55 Bedside Glucose 194 mg/dl 184 mg/dl 162 mg/dl White Blood Count 9.97 K/uL Red Blood Count 3.70 M/uL Hemoglobin 10.1 g/dL Hematocrit 32.1 % Mean Corpuscular Volume 86.8 fL Mean Corpuscular Hemoglobin 27.3 pg Mean Corpuscular Hemoglobin Concent 31.5 g/dl RDW Standard Deviation 64.0 fL RDW Coefficient of Variation 20.3 % Platelet Count 161 K/uL Mean Platelet Volume 9.7 fL Sodium Level 133 mmol/L Potassium Level 4.9 mmol/L Chloride Level 94 mmol/L Carbon Dioxide Level 28 mmol/L Anion Gap 11.0 mmol/L Blood Urea Nitrogen 88 mg/dl Creatinine 3.22 mg/dl Est Creatinine Clear Calc Drug Dose 25.8 ml/min Estimated GFR () 17.4 Estimated GFR (Non- 15.0 BUN/Creatinine Ratio 27.3 Random Glucose 163 mg/dl Calcium Level 8.1 mg/dl Magnesium Level 2.0 mg/dl Assessment & Plan ELIZABETH-urinating less-diuretics on hold-creatinine continues to worsen. continue the albumin and will start normal saline at 50cc/hr to see if we can raise the bp and improve perfusion to the kidneys. has significant atn from hemodynamic compromise. hopefully creatinine will peak and trend down. not uremic. total body volume overload, intravascularly dry.
[2017-12-08] MEDS: INSULIN GLARGINE SOLOSTAR 100 UNITS/ML 3 ML PEN SQ SCH (09:27)
[2017-12-08] MEDS: SODIUM CHLORIDE 0.9% 1000ML 1,000 ML IV SCH (09:45)
[2017-12-08] MEDS: NAPHAZOLIN/PHENIRAMIN OPH SOLN 75 DROPS/5 ML BTL OP SCH ×2 (13:28→20:44)
--- NOTE | 2017-12-08 17:59 | Progress Note ---
Subjective Date of Service: Dec 08, 2017. Subjective Pt evaluation today including: conversation w/ patient, physical exam, chart review, lab review, review of studies, conversation w/ actuarial consultant (wound care ) , review of inpatient medication list Pain: nothing specific today PO Intake: normal, eating 100% of meals Voiding: rodriguez catheter in place spoke with wound care - during changing of her sacral decub dressings yesterday she had copious foul-smelling purulent material on the wound; it was 2.5cm deep ; no bone could be seen or palpated patient despondent today during rounds frustrated about her renal function and her volume status has dyspnea with minimal movement Problem List Medical Problems: (1) Acute renal disease Status: Acute (2) Acute renal failure Status: Acute (3) ELIZABETH (acute kidney injury) Status: Acute (4) ELIZABETH (acute kidney injury) Status: Acute (5) Anemia Status: Acute (6) Cellulitis Status: Acute (7) Cellulitis of both lower extremities Status: Acute (8) CHF (congestive heart failure) Status: Acute (9) CHF (congestive heart failure) Status: Acute (10) Dehydration Status: Acute (11) Fluid overload Status: Acute (12) Hypoxia Status: Acute (13) Pickwickian syndrome Status: Acute (14) Pneumonia Status: Acute (15) Respiratory failure Status: Acute (16) Sacral decubitus ulcer, stage III Status: Acute (17) UTI (urinary tract infection) Status: Acute (18) UTI (urinary tract infection) due to urinary indwelling Rodriguez catheter Status: Acute Review of Systems Constitutional: No fever Respiratory: + cough, + wheezing, + dyspnea on exertion, No sputum, No dyspnea at rest Cardiac: No chest pain Abdomen: No pain, No vomiting Objective Vital Signs Date Time Temp Pulse Resp B/P (MAP) Pulse Ox O2 Delivery O2 Flow Rate FiO2 12/08/17 16:04 36.6 100 22 121/55 (77) 88 Oxymask 8.0 12/08/17 16:03 Oxymask 7.0 12/08/17 14:14 99 22 88 Mask 7.0 12/08/17 08:50 Oxymask 7.0 12/08/17 08:00 36.6 90 22 97/62 (74) 95 5.0 12/08/17 07:29 94 20 88 Mask 7.0 12/08/17 02:42 92 22 89 Mask 7.0 12/08/17 00:25 Oxymask 7.0 12/07/17 23:03 110 95 6.0 12/07/17 22:53 36.4 94 20 89/64 (72) 90 Oxymask 7.0 12/07/17 20:15 Oxymask 7.0 12/07/17 19:23 90 22 88 Mask 7.0 Physical Exam General Appearance: no apparent distress, + obese Eyes: + pertinent finding (left eye - mild irritation of sclera and conjunctiva ; lower lid with developing stye) ENT: pharynx normal Neck: + pertinent finding (with large neck size unable to assess for JVD) Respiratory/Chest: no respiratory distress, no accessory muscle use, + decreased breath sounds (bases), + wheezing (minimal end-exp) Cardiovascular: no gallop, no murmur, + tachycardia Abdomen: normal bowel sounds, non tender, soft, no organomegaly, + hernia ( umbilical - reducible ) Extremities: + pedal edema, + swelling, + pertinent finding (severe anasarca extending up the legs to the abdominal wall; there is considerable edema of both flanks - unchanged from prior visits) Neurologic/Psychiatric: alert, oriented x 3, + depressed affect Skin: + pertinent finding (multiple dressings on both distal legs/feet ) Laboratory Results Last 24 Hours Test 12/08/17 07:48 12/08/17 07:55 12/08/17 12:04 Bedside Glucose 162 mg/dl 165 mg/dl White Blood Count 9.97 K/uL Red Blood Count 3.70 M/uL Hemoglobin 10.1 g/dL Hematocrit 32.1 % Mean Corpuscular Volume 86.8 fL Mean Corpuscular Hemoglobin 27.3 pg Mean Corpuscular Hemoglobin Concent 31.5 g/dl RDW Standard Deviation 64.0 fL RDW Coefficient of Variation 20.3 % Platelet Count 161 K/uL Mean Platelet Volume 9.7 fL Sodium Level 133 mmol/L Potassium Level 4.9 mmol/L Chloride Level 94 mmol/L Carbon Dioxide Level 28 mmol/L Anion Gap 11.0 mmol/L Blood Urea Nitrogen 88 mg/dl Creatinine 3.22 mg/dl Est Creatinine Clear Calc Drug Dose 25.8 ml/min Estimated GFR () 17.4 Estimated GFR (Non- 15.0 BUN/Creatinine Ratio 27.3 Random Glucose 163 mg/dl Calcium Level 8.1 mg/dl Magnesium Level 2.0 mg/dl Assessment and Plan 57yo female - 1. acute/chronic hypoxic respiratory failure - acute component due to acute/ chronic CHF. See below. Ongoing - minimal improvement despite valiant efforts at diuresis over the last week. 2. acute/chronic systolic/diastolic CHF along with severe acute/chronic right- sided heart failure (cor pulmonale)- Her bumex had been titrated to 3mg IV TID last week along with once daily metazolone & aldactone. She had fair diuresis with such, but unfortunately has suffered worsening renal function. BP too low for even low-dose beta lety. Not a candidate for ANA LUISA or ARB due to renal function. She historically has been exceptionally challenging to manage due to a number of factors including poor self-care, poor compliance w/ diet, etc. Prognosis is very poor. Appreciate cardiology consult. Diuretics on hold due to acute kidney injury. 3. severe pulmonary HTN - has worsened over time. I presume her pulmonary HTN is from long-standing, untreated ROHAN and/or VTE. 4. ROHAN - poor compliance and lack of desire by patient to treat with BIPAP. Cont NC O2 and BIPAP at HS, if she will comply. 5. COPD - does not appear to be in exacerbation at this time. 6. 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 7. DVT proph - has IVC filter in place along with lovenox 30mg daily. 8. chronic rodriguez catheter usage - exchange monthly. Has asymptomatic bacteriuria on recent urine cx. 9. morbid obesity with BMI 48 10. sacral decubitus ulcer, stage 3 - appreciate wound care consult & assistance. Despite lengthy period of time and numerous treatments [facility] it has not healed due to bed-bound status, poor nutritional status, noncompliance, etc. The foul-smelling discharge is concerning. Will ask Dr. Rothman to see tomorrow. 11. b/l foot/heel/achilles ulcers - managed by wound care. 12. ?cirrhosis - CT abd/pelvis in October 2017 showed cirrhotic changes. Suspect this would be from ALFREDO. Certainly cirrhosis could be playing a role in her volume overload state. 13. T2DM - control sufficient. 14. positive troponin - likely myocardial demand ischemia in setting of acute/ chronic CHF 15. chronic pain syndrome - cont oxycodone 10mg q4h prn. 16. right shoulder pain - voltaren gel qid; has chronic deformity 17. left eye complaints - dry eye vs allergic conjunctivitis with resulting early stye? Allergy eye drops, warm compresses prn. If the stye worsens consider erythromycin eye ointment. 18. acute kidney injury in setting of CKD stage 3-4 - appreciate nephrology consultation. Diuretics on hold. Receiving daily albumin. Gentle fluid ordered by nephrology today. BMP in am. 19. mood disorder - consider psych consult. cymbalta (would treat depression & pain)? Continued [facility] stay due to: abnormal vital signs, voiding difficulties, ambulation difficulties, multiple IV medications needed, home environment unsafe for pt Discharge planning: halfway facility
[2017-12-09] VITALS (7 sets, daily range): BP systolic 98–107; BP diastolic 57–70; PULSE 93–104; TEMP 36.4; O2SAT 88–95
[2017-12-09] MEDS: ALBUT/IPRATROP 3MG/0.5MG NEB 3 ML VIAL INH SCH ×4 (02:12→19:54)
[2017-12-09] MEDS: SODIUM CHLORIDE 0.9% 1000ML 1,000 ML IV SCH (07:13)
[2017-12-09] MEDS: ENOXAPARIN 30 MG/0.3 ML SYR SQ SCH (09:00)
[2017-12-09 09:08] LABS: CALCIUM 8.1 mg/dl (8.5-10.1); CREATININE 3.55 mg/dl (0.60-1.20); POTASSIUM 4.9 mmol/L (3.5-5.1)
[2017-12-09] MEDS: ALBUMIN HUMAN 25% 12.5 GM/50 ML VIAL IV SCH ×2 (09:24→11:06)
[2017-12-09] MEDS: ARTIFICIAL TEARS OP OINT 3.5 GM TUBE OP SCH ×2 (09:25→21:56)
[2017-12-09] MEDS: NAPHAZOLIN/PHENIRAMIN OPH SOLN 75 DROPS/5 ML BTL OP SCH ×3 (09:25→21:56)
[2017-12-09] MEDS: FEXOFENADINE HCL 180 MG TAB PO SCH (09:25)
--- NOTE | 2017-12-09 09:26 | Nephrology Progress Note ---
Nephrology Progress Note Date of Service: Dec 09, 2017. Subjective 57 yo female with obesity, volume overload, worsening kidney function. pt becoming more frustrated since her situation is worsening. using bipap. on fluids and albumin. Objective Date Time Temp Pulse Resp B/P (MAP) Pulse Ox O2 Delivery O2 Flow Rate FiO2 12/09/17 07:22 93 20 92 Mask 7.0 12/09/17 07:04 36.4 97 20 98/57 (71) 90 Oxymask 8.0 12/09/17 02:12 98 22 88 Mask 7.0 12/09/17 00:20 Oxymask 7.0 12/08/17 23:36 112 95 6.0 12/08/17 22:44 36.7 97 20 101/65 (77) 90 Oxymask 8.0 12/08/17 20:05 Oxymask 7.0 12/08/17 16:04 36.6 100 22 121/55 (77) 88 Oxymask 8.0 12/08/17 16:03 Oxymask 7.0 12/08/17 14:14 99 22 88 Mask 7.0 Physical Exam: General-aaox3, obese Eyes-no scleral icterus ENT-mmm Neck-supple Lungs-cta anteriorly Heart-regular Abdomen-bs+, pannus+ Extremities-+2 to 3 edema in dependent areas Neuro-nonfocal Current Inpatient Medications Medications (Trade) Dose Ordered Sig/Bruno Route Start Time Stop Time Status Last Admin Dose Admin Bumetanide (Bumex Tab) 2 mg BID17 PO 11/30/17 09:00 12/30/17 08:59 Future Hold Acetaminophen (Tylenol Tab) 650 mg Q4H PRN PO 11/29/17 18:30 12/29/17 18:29 Al Hydrox/Mg Hydrox/Simethicone (Maalox Max Susp) 15 ml Q4H PRN PO 11/29/17 18:30 12/29/17 18:29 Magnesium Hydroxide (Milk Of Magnesia Susp) 30 ml Q6H PRN PO 11/29/17 18:30 12/29/17 18:29 Polyethylene (Miralax Powder Packet) 17 gm DAILY PRN PO 11/29/17 18:30 12/29/17 18:29 Ondansetron HCl (Zofran Inj) 4 mg Q6H PRN IV 11/29/17 18:30 12/29/17 18:29 Insulin Aspart (novoLOG ASPART) SLIDING SCALE G... ACHS SC 11/29/17 21:00 12/29/17 20:59 12/08/17 18:12 3 UNITS Clotrimazole (Lotrimin 1% Crm) 1 appln Q12 PRN EXT 11/29/17 18:30 12/29/17 18:29 Ergocalciferol (Vitamin D Cap) 50,000 interunit Fr@0900 PO 12/06/17 09:00 01/05/18 08:59 12/06/17 09:00 50,000 INTERUNIT Heparin Sodium (Porcine) (Heparin 10 Unit/ ml 5 ml Flush) 5 ml BID FLUSH 11/29/17 20:00 12/29/17 20:59 12/08/17 20:44 5 ML Albuterol/ Ipratropium (Duoneb) 3 ml Q4H PRN INH 11/29/17 18:30 12/29/17 18:29 12/03/17 10:25 3 ML Albuterol/ Ipratropium (Duoneb) 3 ml Q6R INH 11/29/17 21:00 12/29/17 20:59 12/09/17 07:22 3 ML Spironolactone (Aldactone Tab) 25 mg DAILY PO 11/30/17 08:00 12/30/17 08:59 Future Hold 12/06/17 09:00 25 MG Bisacodyl (Dulcolax Supp) 10 mg DAILY PRN [place] 11/29/17 18:30 12/29/17 18:29 Buspirone HCl (Buspar Tab) 5 mg Q12 PRN PO 11/29/17 18:30 12/29/17 18:29 Miscellaneous (Iv Fluids Completed) 1 ea PRN PRN N/A 11/29/17 19:15 11/29/18 19:14 Miconazole Nitrate (Desenex Powder) 1 appln UD PRN EXT 11/30/17 19:00 12/30/17 18:59 Oxycodone HCl (Roxicodone Immediate Rel Tab) 10 mg Q4H PRN PO 12/01/17 11:15 12/13/17 18:29 4/21/18 22:35 10 MG Heparin Sodium (Porcine) (Heparin 10 Unit/ ml 5 ml Flush) 5 ml PRN PRN FLUSH 12/02/17 15:45 01/01/18 15:44 12/09/17 08:30 5 ML Metolazone (Zaroxolyn Tab) 5 mg Q24H PO 12/03/17 13:30 01/02/18 13:29 Future Hold 12/06/17 13:39 5 MG Fluconazole (Diflucan Tab) 100 mg DAILY PO 12/04/17 08:00 12/10/17 08:59 12/08/17 09:18 100 MG Insulin Glargine (Lantus Solostar Pen) 12 units QAM SQ 12/05/17 08:00 12/30/17 08:59 12/08/17 09:27 10 UNITS Artificial Tears (Artificial Tears) 2 drops Q3H PRN OP 12/04/17 11:15 01/03/18 11:14 Diphenhydramine HCl (Benadryl Cap) 25 mg Q4H PRN PO 12/04/17 19:00 01/03/18 18:59 12/04/17 20:35 25 MG Metoprolol Tartrate (Lopressor Tab) 12.5 mg BID PO 12/06/17 20:00 01/04/18 19:59 Future Hold Bumetanide 2 mg/ Syringe 8 ml @ 4 mls/min TID IV 12/06/17 14:00 01/05/18 13:59 Future Hold 12/06/17 13:20 4 MLS/MIN Albumin Human (Albumin 25%) 12.5 gm DAILY@0800,0900 IV 12/07/17 08:00 12/10/17 07:59 12/08/17 10:15 12.5 GM Artificial Tears (Lacri-Lube Oph Oint) 1 appln BID OP 12/07/17 20:00 01/06/18 19:59 Sodium Chloride 1,000 ml @ 50 mls/hr Q20H IV 12/08/17 09:30 01/07/18 09:29 12/09/17 07:13 50 MLS/HR Naphazoline HCl/ Pheniramine Maleate (Visine-A Oph Soln) 2 drops TID OP 12/08/17 14:00 01/07/18 13:59 12/08/17 20:44 2 DROPS Enoxaparin Sodium (Lovenox Inj) 30 mg Q24H SQ 12/08/17 09:00 01/07/18 08:59 Fexofenadine HCl (Tanesha Tab) 180 mg QAM PO 12/09/17 08:00 01/08/18 07:59 Last 24 Hours Test 12/08/17 12:04 12/09/17 07:41 12/09/17 08:29 Bedside Glucose 165 mg/dl 136 mg/dl Sodium Level 132 mmol/L Potassium Level 4.9 mmol/L Chloride Level 94 mmol/L Carbon Dioxide Level 28 mmol/L Anion Gap 10.0 mmol/L Blood Urea Nitrogen 90 mg/dl Creatinine 3.55 mg/dl Est Creatinine Clear Calc Drug Dose 23.5 ml/min Estimated GFR () 15.4 Estimated GFR (Non- 13.3 BUN/Creatinine Ratio 25.2 Random Glucose 150 mg/dl Calcium Level 8.1 mg/dl Prealbumin 8.1 mg/dl Assessment & Plan [id number] on hold-creatinine continues to worsen. on supportive measures to aid in renal recovery including low dose albumin 25 grams q day and low rate of iv fluids 50cc/hr. if creatinine continues to worsen, pt may require dialysis. hopefully able to avoid dialysis. creatinine likely to continue to worsen over the next couple of days before eventually peaking and starting to improve. continue current plan.
[2017-12-09] MEDS: INSULIN ASPART 100 UNITS/ML 3 ML PEN SC SCH ×4 (09:32→20:53)
[2017-12-09] MEDS: INSULIN GLARGINE SOLOSTAR 100 UNITS/ML 3 ML PEN SQ SCH (09:33)
[2017-12-09] MEDS: FLUCONAZOLE 100 MG TAB PO SCH (09:33)
[2017-12-09] MEDS: OXYCODONE HCL IR 5 MG TAB (IMMEDIATE RELEASE) PO PRN ×2 (11:06→23:05)
--- NOTE | 2017-12-09 18:00 | Cardiology Follow-Up ---
Subjective Subjective Date of Service: Dec 09, 2017. Pt evaluation today including: conversation w/ patient, physical exam, chart review, lab review, review of studies, review of inpatient medication list Additional Details: No new complaints today. Breathing unchanged. No chest pain. Remarked about her current limited quality of life. Problem List Medical Problems: (1) Acute renal disease Status: Acute (2) Acute renal failure Status: Acute (3) ELIZABETH (acute kidney injury) Status: Acute (4) ELIZABETH (acute kidney injury) Status: Acute (5) Anemia Status: Acute (6) Cellulitis Status: Acute (7) Cellulitis of both lower extremities Status: Acute (8) CHF (congestive heart failure) Status: Acute (9) CHF (congestive heart failure) Status: Acute (10) Dehydration Status: Acute (11) Fluid overload Status: Acute (12) Hypoxia Status: Acute (13) Pickwickian syndrome Status: Acute (14) Pneumonia Status: Acute (15) Respiratory failure Status: Acute (16) Sacral decubitus ulcer, stage III Status: Acute (17) UTI (urinary tract infection) Status: Acute (18) UTI (urinary tract infection) due to urinary indwelling Lerner catheter Status: Acute Review of Systems Constitutional: No fever Respiratory: + cough, No sputum, No dyspnea at rest Cardiac: No chest pain Breast: + see HPI Abdomen: No pain, No vomiting Musculoskeletal: + see HPI Skin: + itch Objective Vital Signs Last Vital Signs Documentation Date Time Temp Pulse Resp B/P (MAP) Pulse Ox O2 Delivery O2 Flow Rate FiO2 12/09/17 16:31 Oxymask 7.0 12/09/17 15:10 100 24 107/70 (82) 89 12/09/17 07:04 36.4 12/05/17 16:31 96 Physical Exam: General Appearance: no apparent distress, + obese ENT: pharynx normal Neck: + pertinent finding (with large neck size unable to assess for JVD) Respiratory/Chest: no respiratory distress, no accessory muscle use, + decreased breath sounds (bases) Cardiovascular: no gallop, no murmur, + pertinent finding (distant heart sounds ) Abdomen: normal bowel sounds, non tender, soft, + hernia (umbilical - reducible ) Extremities: + pedal edema, + swelling, + pertinent finding (severe anasarca extending up the legs to the abdominal wall; there is considerable edema of both flanks - unchanged from prior visits) Neurologic/Psychiatric: alert, oriented x 3, + depressed affect Skin: + pertinent finding (multiple dressings on both distal legs/feet ) Lymphatic: no adenopathy Assessment and Plan 1. Mqwbi-in-objfoez heart failure. 2. Cor pulmonale with severe pulmonary hypertension and RV dysfunction. 3. ATN/Acute on chronic renal failure 4. Morbid obesity with obstructive sleep apnea. 5. Severe chronic obstructive pulmonary disease, oxygen dependent. 6. Type 2 diabetes. 7. Venous ulcerations. 8. Chronic indwelling Lerner. BUN/creatinine continue to rise. Remains oliguric despite albumin/IV fluids Appears well perfused on exam, persistent anasarca Renal failure thought to be secondary to ATN. Relatively low suspicion for persistent low cardiac output state leading to current renal dysfunction but with possible impending dialysis feel reasonable to confirm --discussed with patient potentially obtaining a right heart catheterization tomorrow to assess intracardiac filling pressures, cardiac output and potential need for inotropes. Patient willing to attempt although some concerns about lying on quality assurance lab technician table and sedation. For now will tentatively plan on tomorrow morning. Please keep NPO overnight further recommendations pending findings Continued [facility] stay due to: abnormal vital signs, voiding difficulties, ambulation difficulties, multiple IV medications needed, home environment unsafe for pt Discharge planning: nursing home facility Medications: Current Inpatient Medications Medications (Trade) Dose Ordered Sig/Bruno Route Start Time Stop Time Status Last Admin Dose Admin Bumetanide (Bumex Tab) 2 mg BID17 PO 11/30/17 09:00 12/30/17 08:59 Future Hold Acetaminophen (Tylenol Tab) 650 mg Q4H PRN PO 11/29/17 18:30 12/29/17 18:29 Al Hydrox/Mg Hydrox/Simethicone (Maalox Max Susp) 15 ml Q4H PRN PO 11/29/17 18:30 12/29/17 18:29 Magnesium Hydroxide (Milk Of Magnesia Susp) 30 ml Q6H PRN PO 11/29/17 18:30 12/29/17 18:29 Polyethylene (Miralax Powder Packet) 17 gm DAILY PRN PO 11/29/17 18:30 12/29/17 18:29 Ondansetron HCl (Zofran Inj) 4 mg Q6H PRN IV 11/29/17 18:30 12/29/17 18:29 Insulin Aspart (novoLOG ASPART) SLIDING SCALE G... ACHS SC 11/29/17 21:00 12/29/17 20:59 12/09/17 13:32 3 UNITS Clotrimazole (Lotrimin 1% Crm) 1 appln Q12 PRN EXT 11/29/17 18:30 12/29/17 18:29 Ergocalciferol (Vitamin D Cap) 50,000 interunit Fr@0900 PO 12/06/17 09:00 01/05/18 08:59 12/06/17 09:00 50,000 INTERUNIT Heparin Sodium (Porcine) (Heparin 10 Unit/ ml 5 ml Flush) 5 ml BID FLUSH 11/29/17 20:00 12/29/17 20:59 12/09/17 09:26 5 ML Albuterol/ Ipratropium (Duoneb) 3 ml Q4H PRN INH 11/29/17 18:30 12/29/17 18:29 12/03/17 10:25 3 ML Albuterol/ Ipratropium (Duoneb) 3 ml Q6R INH 11/29/17 21:00 12/29/17 20:59 12/09/17 14:20 3 ML Spironolactone (Aldactone Tab) 25 mg DAILY PO 11/30/17 08:00 12/30/17 08:59 Future Hold 12/06/17 09:00 25 MG Bisacodyl (Dulcolax Supp) 10 mg DAILY PRN VT 11/29/17 18:30 12/29/17 18:29 Buspirone HCl (Buspar Tab) 5 mg Q12 PRN PO 11/29/17 18:30 12/29/17 18:29 Miscellaneous (Iv Fluids Completed) 1 ea PRN PRN N/A 11/29/17 19:15 11/29/18 19:14 Miconazole Nitrate (Desenex Powder) 1 appln UD PRN EXT 11/30/17 19:00 12/30/17 18:59 Oxycodone HCl (Roxicodone Immediate Rel Tab) 10 mg Q4H PRN PO 12/01/17 11:15 12/13/17 18:29 12/09/17 11:06 10 MG Heparin Sodium (Porcine) (Heparin 10 Unit/ ml 5 ml Flush) 5 ml PRN PRN FLUSH 12/02/17 15:45 01/01/18 15:44 12/09/17 08:30 5 ML Metolazone (Zaroxolyn Tab) 5 mg Q24H PO 12/03/17 13:30 01/02/18 13:29 Future Hold 12/06/17 13:39 5 MG Fluconazole (Diflucan Tab) 100 mg DAILY PO 12/04/17 08:00 12/10/17 08:59 12/09/17 09:33 100 MG Insulin Glargine (Lantus Solostar Pen) 12 units QAM SQ 12/05/17 08:00 12/30/17 08:59 12/09/17 09:33 10 UNITS Artificial Tears (Artificial Tears) 2 drops Q3H PRN OP 12/04/17 11:15 01/03/18 11:14 Diphenhydramine HCl (Benadryl Cap) 25 mg Q4H PRN PO 12/04/17 19:00 01/03/18 18:59 12/04/17 20:35 25 MG Metoprolol Tartrate (Lopressor Tab) 12.5 mg BID PO 12/06/17 20:00 01/04/18 19:59 Future Hold Bumetanide 2 mg/ Syringe 8 ml @ 4 mls/min TID IV 12/06/17 14:00 01/05/18 13:59 Future Hold 12/06/17 13:20 4 MLS/MIN Albumin Human (Albumin 25%) 12.5 gm DAILY@0800,0900 IV 12/07/17 08:00 12/10/17 07:59 12/09/17 11:06 12.5 GM Artificial Tears (Lacri-Lube Oph Oint) 1 appln BID OP 12/07/17 20:00 01/06/18 19:59 Sodium Chloride 1,000 ml @ 50 mls/hr Q20H IV 12/08/17 09:30 01/07/18 09:29 12/09/17 07:13 50 MLS/HR Naphazoline HCl/ Pheniramine Maleate (Visine-A Oph Soln) 2 drops TID OP 12/08/17 14:00 01/07/18 13:59 12/09/17 13:32 2 DROPS Enoxaparin Sodium (Lovenox Inj) 30 mg Q24H SQ 12/08/17 09:00 01/07/18 08:59 Fexofenadine HCl (Tanesha Tab) 180 mg QAM PO 12/09/17 08:00 01/08/18 07:59 Lab Results: 12/09/17 08:29 Test 12/09/17 08:29 12/09/17 16:54 Anion Gap 10.0 mmol/L (3-11) Est Creatinine Clear Calc Drug Dose 23.5 ml/min Estimated GFR () 15.4 Estimated GFR (Non- 13.3 BUN/Creatinine Ratio 25.2 (10-20) Calcium Level 8.1 mg/dl (8.5-10.1) Prealbumin 8.1 mg/dl (20-40) Bedside Glucose 140 mg/dl (70-90)
--- NOTE | 2017-12-09 22:51 | Progress Note ---
Subjective Date of Service: Dec 09, 2017. Subjective Pt evaluation today including: conversation w/ patient, physical exam, chart review, lab review, review of inpatient medication list Pain: multiple areas but only w/ activity PO Intake: normal Voiding: rodriguez catheter in place no significant events overnight she is worried about her renal function and she is unsure about whether to pursue dialysis if she ever needed such when asked about her other wishes regarding her health she stated "I've just been praying to get better. What can I do?" Problem List Medical Problems: (1) Acute renal disease Status: Acute (2) Acute renal failure Status: Acute (3) ELIZABETH (acute kidney injury) Status: Acute (4) ELIZABETH (acute kidney injury) Status: Acute (5) Anemia Status: Acute (6) Cellulitis Status: Acute (7) Cellulitis of both lower extremities Status: Acute (8) CHF (congestive heart failure) Status: Acute (9) CHF (congestive heart failure) Status: Acute (10) Dehydration Status: Acute (11) Fluid overload Status: Acute (12) Hypoxia Status: Acute (13) Pickwickian syndrome Status: Acute (14) Pneumonia Status: Acute (15) Respiratory failure Status: Acute (16) Sacral decubitus ulcer, stage III Status: Acute (17) UTI (urinary tract infection) Status: Acute (18) UTI (urinary tract infection) due to urinary indwelling Rodriguez catheter Status: Acute Review of Systems Respiratory: + cough, + dyspnea on exertion Cardiac: + orthopnea, + edema, No chest pain Abdomen: No pain Psychiatric: + depression symptoms Objective Vital Signs Date Time Temp Pulse Resp B/P (MAP) Pulse Ox O2 Delivery O2 Flow Rate FiO2 12/09/17 19:54 98 20 90 Mask 7.0 12/09/17 16:31 Oxymask 7.0 12/09/17 15:10 100 24 107/70 (82) 89 Oxymask 7.0 12/09/17 14:29 98 20 90 Mask 7.0 12/09/17 08:59 Oxymask 7.0 12/09/17 07:22 93 20 92 Mask 7.0 12/09/17 07:04 36.4 97 20 98/57 (71) 90 Oxymask 8.0 12/09/17 02:12 98 22 88 Mask 7.0 12/09/17 00:20 Oxymask 7.0 12/08/17 23:36 112 95 6.0 12/08/17 22:44 36.7 97 20 101/65 (77) 90 Oxymask 8.0 Physical Exam General Appearance: no apparent distress, + obese ENT: + pertinent finding (MM dry; no thrush) Neck: + pertinent finding (unable to assess JVD due to neck size) Respiratory/Chest: no respiratory distress, no accessory muscle use, + pertinent finding (course BS b/l with mild end-exp wheeze; decreased BS bases) Cardiovascular: no gallop, + tachycardia, + systolic murmur (1/6 LSB) Abdomen: normal bowel sounds, no organomegaly, + distended (due to ascites/ anasarca), + hernia (umbilical - reducible) Extremities: + pedal edema, + swelling (severe, anasaraca, extending from feet to pelvis; there is considerable edema of her abdominal wall and flanks as well) Neurologic/Psychiatric: alert, oriented x 3 Skin: + pertinent finding (stasis changes over her legs and abdominal wall; muliple dressings in place on b/l LEs) Laboratory Results Last 24 Hours Test 12/09/17 07:41 12/09/17 08:29 12/09/17 11:58 12/09/17 16:54 Bedside Glucose 136 mg/dl 145 mg/dl 140 mg/dl Sodium Level 132 mmol/L Potassium Level 4.9 mmol/L Chloride Level 94 mmol/L Carbon Dioxide Level 28 mmol/L Anion Gap 10.0 mmol/L Blood Urea Nitrogen 90 mg/dl Creatinine 3.55 mg/dl Est Creatinine Clear Calc Drug Dose 23.5 ml/min Estimated GFR () 15.4 Estimated GFR (Non- 13.3 BUN/Creatinine Ratio 25.2 Random Glucose 150 mg/dl Calcium Level 8.1 mg/dl Prealbumin 8.1 mg/dl Assessment and Plan 57yo female - 1. acute/chronic hypoxic respiratory failure - acute component due to acute/ chronic CHF. Ongoing - minimal improvement since admission. 2. acute/chronic systolic/diastolic CHF along with severe acute/chronic right- sided heart failure (cor pulmonale)- All diuretics on hold due to acute kidney injury. She had fair diuresis with triple-diuretics but unfortunately she suffered worsening renal function. BP too low for low-dose beta lety. Not a candidate for ANA LUISA or ARB due to renal function. Dr. Aguayo considering right heart cath to determine if inotropic support would help improve her situation. Tentantively scheduled for tomorrow. 3. severe pulmonary HTN - has worsened over time. I presume her pulmonary HTN is from long-standing, untreated ROHAN and/or VTE. 4. ROHAN - cont BIPAP at hs. 5. COPD - does not appear to be in exacerbation at this time. 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 7. DVT proph - has IVC filter in place along with lovenox 30mg daily. 8. chronic rodriguez catheter usage - exchange monthly. Has asymptomatic bacteriuria on recent urine cx. 9. morbid obesity with BMI 48 10. sacral decubitus ulcer, stage 3 - appreciate wound care consult & assistance. Despite lengthy period of time and numerous [facility] it has not healed due to bed-bound status, poor nutritional status, noncompliance, etc. The foul-smelling discharge is concerning. Dr Rothman saw patient in consult today and current treatment plan to continue. 11. b/l foot/heel/achilles ulcers - managed by wound care. 12. ?cirrhosis - CT abd/pelvis in October 2017 showed cirrhotic changes. Suspect this would be from ALFREDO. Certainly cirrhosis could be playing a role in her volume overload state. 13. T2DM - control sufficient. 14. positive troponin - likely myocardial demand ischemia in setting of acute/ chronic CHF 15. chronic pain syndrome - cont oxycodone 10mg q4h prn. 16. right shoulder pain - voltaren gel qid; has chronic deformity 17. left eye complaints - dry eye vs allergic conjunctivitis with resulting early stye? Allergy eye drops, warm compresses prn. If the stye worsens consider erythromycin eye ointment. 18. acute kidney injury in setting of CKD stage 3-4 - appreciate nephrology consultation. Diuretics on hold. Receiving daily albumin and gentle hydration. BMP in am. If renal function worsens despite optimal medical therapy some difficult discussions would need to be made about HD, if deemed a candidate. 19. mood disorder - consider psych consult. consider cymbalta (would treat depression & pain)? Continued [facility] stay due to: abnormal vital signs, voiding difficulties, ambulation difficulties, multiple IV medications needed, home environment unsafe for pt, other (acute kidney injury ) Discharge planning: intermediate facility
[2017-12-10] VITALS (12 sets, daily range): BP systolic 92–133; BP diastolic 62–109; PULSE 90–109; TEMP 36.3–36.6; O2SAT 83–90
[2017-12-10] MEDS: ALBUT/IPRATROP 3MG/0.5MG NEB 3 ML VIAL INH SCH ×4 (02:07→21:00)
[2017-12-10] MEDS: SODIUM CHLORIDE 0.9% 1000ML 1,000 ML IV SCH (02:18)
[2017-12-10] MEDS: INSULIN ASPART 100 UNITS/ML 3 ML PEN SC SCH ×4 (06:30→20:14)
[2017-12-10] MEDS: NAPHAZOLIN/PHENIRAMIN OPH SOLN 75 DROPS/5 ML BTL OP SCH ×3 (07:08→21:00)
[2017-12-10] MEDS: ARTIFICIAL TEARS OP OINT 3.5 GM TUBE OP SCH ×2 (07:08→21:00)
[2017-12-10] MEDS: FLUCONAZOLE 100 MG TAB PO SCH (07:09)
[2017-12-10] MEDS: ENOXAPARIN 30 MG/0.3 ML SYR SQ SCH (07:09)
[2017-12-10] MEDS: FEXOFENADINE HCL 180 MG TAB PO SCH (07:09)
[2017-12-10] MEDS: INSULIN GLARGINE SOLOSTAR 100 UNITS/ML 3 ML PEN SQ SCH (07:34)
[2017-12-10 08:50] LABS: CALCIUM 7.9 mg/dl (8.5-10.1); CREATININE 4.05 mg/dl (0.60-1.20); POTASSIUM 5.2 mmol/L (3.5-5.1)
[2017-12-10] MEDS ORDERED: FENTANYL CITRATE INJ 50 MCG/1 ML 2 ML VIAL ONE (09:56)
[2017-12-10] MEDS ORDERED: LIDOCAINE HCL 1% 20 ML VIAL ONE (09:59)
--- NOTE | 2017-12-10 10:24 | Post Sedation Assessment ---
Post Sedation Assessment General Date of Sedation Dec 10, 2017. Vital Signs: Vital Signs Past 12 Hours Date Time Temp Pulse Resp B/P (MAP) Pulse Ox O2 Delivery O2 Flow Rate FiO2 12/10/17 08:00 Oxymask 7.0 12/10/17 07:26 36.6 103 20 133/62 (85) 89 Oxymask 7.0 12/10/17 07:22 101 20 89 Mask 7.0 12/10/17 02:00 99 123/75 (91) 90 Oxymask 7.0 12/10/17 00:03 36.6 102 18 129/109 (116) 89 12/10/17 00:00 BiPAP 12/09/17 23:50 104 95 6.0 Post Procedure Recovery Score Activity: (2) Moves 4 extremities * Respiration: (2) Deep breath/cough Circulation: (2) +/-20% PreAnes Value Consciousness: (2) Fully Awake Oxygen Saturation: (1) O2 needed for >90% Discharge Sedation Level of Care: Fast Track Phase II Post Sedation Plan On clinical assessment, the patient appears to have tolerated the sedation without complications. Patient is recovering as anticipated. Patient will continue to be monitored by nursing and may be discharged when sedation discharge criteria are met per below protocol. Upon Completions of procedure and additional 15 minutes continue every 5 minute vital signs and the P.A.R. score; then discharge to a Phase I or Fast Track to Phase II per the following guidelines: * Discharge Patient to appropriate Phase II area if PAR is 8 or greater or return to pre- procedure baseline. The post - procedure orders will be as directed. * If PAR score is less than 8 or not return to pre-procedure baseline then patient will follow Phase I monitoring till PAR is reached for Phase II. The Phase I may be done in procedure room or may call to secure a Phase I area. * If naloxone or flumazenil are used for reversal, hold in Phase I for an additional 60 -120 minutes before discharge to Phase II. Please call the Sedation Physician to re-evaluate and complete post-note for discharge to Phase II area. Do NOT discharge from procedure sedation or Phase 1 until post- sedation evaluation note is complete by procedure /sedation MD Sedation Discharge Instructions to be given to the patient at discharge to home.
--- NOTE | 2017-12-10 10:24 | Pre Sedation Assessment ---
Pre Sedation Assessment General Date of Sedation: Dec 10, 2017. Vital Signs Past 12 Hours Date Time Temp Pulse Resp B/P (MAP) Pulse Ox O2 Delivery O2 Flow Rate FiO2 12/10/17 08:00 Oxymask 7.0 12/10/17 07:26 36.6 103 20 133/62 (85) 89 Oxymask 7.0 12/10/17 07:22 101 20 89 Mask 7.0 12/10/17 02:00 99 123/75 (91) 90 Oxymask 7.0 12/10/17 00:03 36.6 102 18 129/109 (116) 89 12/10/17 00:00 BiPAP 12/09/17 23:50 104 95 6.0 Review Cardiovascular: regular rate, rhythm, no edema Lungs: chest non-tender, lungs clear Pre-Sedation Airway Assessment Smoking Status: Former Smoker Hx of Sleep Apnea: Yes Hx of difficult intubation: Yes Short Thick Neck: Yes Thyro-mental Distance: < or =3 Finger Breadths Oral Cavity: Dentures Mallampati Classification: Class III ASA Classification: Class III NPO Status Date of Last Intake of Fluids: Dec 09, 2017 Time of Last Intake of Fluids: 0000 Date of Last Intake of Solids: Dec 09, 2017 Procedure Planning Contraindications for Sedation: None Current Medications Reviewed: Yes Notes The planned sedation has been discussed with the patient. Informed Consent was obtained. I have identified the patient, determined the appropriateness of sedation and have assessed the patient immediately prior to the procedure. All medicine(s) and interventions are by my order.
--- NOTE | 2017-12-10 10:40 | Cardiac Catheterization ---
Procedure Note Procedure Date Dec 10, 2017. Pre-Procedure Diagnosis Cardiomyopathy, Cardiothoracic Symptom AUC Score 7 Post-Procedure Diagnosis Normal LV Systolic Function, Elevated Intracardiac Pressures Procedure(s) Performed Right Heart Cath, Ultrasound Guided Vascular Access Screenplay Writer Olivier Market Development Executive(s) Antony Estimated Blood Loss 5 Medication(s) Fentanyl, Lidocaine 1% Summary of Findings Indication: Severe pulmonary hypertension, RV dysfunction and progressive renal failure RA 28 RV 63/23 PA 76/32 (51) PAWP 31 (likely overestimate) PaSat 53% AoSat 90% on 10L Jason CO/CI 11.2/2.5 Thermo CO/CI 6.1/1.3 SUMMARY: 1. Elevated intracardiac filling pressures 2. Severe pulmonary hypertension 3. Preserved cardiac output Recommendations: - Diuretics, dialysis per nephrology. - No indication for inotropes. Not a candidate for PH therapy. Hemodynamics Rest Ao: -- Final Ao: -- LV: -- Recommendations Medical therapy and/or Counseling Specimens None Radiation Exposure (mGy) 33 Contrast (mls) -- Fluids (cc crystalloids) -- Drains None Anesthesia fentanyl Procedural Complication(s) None Disposition PCU ACC Data Cardiac Status Clinical evaluation leading to the procedure CAD Presntation: Sx unlikely to be ischemic Anginal Classification: No symptoms Heart Failure: NYHA Class: CCS IV Cardiogenic Shock w/in 24Hrs: No Cardiac Arrest w/in 24Hrs: No Imaging studies past 6 months: Yes Stress studies past 6 months: No Closure Device Percutaneous Entry Location: Jugular Closure Device: none - manual hold Recommendations: Medical therapy and/or Counseling Intraprocedure Events Significant Dissection: No Perforation: No
[2017-12-10] MEDS ORDERED: SODIUM POLYST. SULF SUSP 15G/60ML PO STA (11:11)
[2017-12-10] MEDS: ONDANSETRON INJ 2 MG/ML 2 ML VIAL IV PRN (11:14)
--- NOTE | 2017-12-10 12:10 | Nephrology Progress Note ---
Nephrology Progress Note Date of Service: Dec 10, 2017. Subjective 57 yo female with obesity, volume overload, worsening kidney function. creatinine continues to worsen. pt with intermittent nausea but still awake and not actually vomiting and still able to eat. Objective Date Time Temp Pulse Resp B/P (MAP) Pulse Ox O2 Delivery O2 Flow Rate FiO2 12/10/17 12:03 36.6 105 24 115/82 (93) 90 Nasal Cannula 8.0 12/10/17 10:36 92 16 135/82 (99) 90 Mask 8 12/10/17 10:21 94 16 146/85 (105) 91 Mask 8 12/10/17 08:00 Oxymask 7.0 12/10/17 07:26 36.6 103 20 133/62 (85) 89 Oxymask 7.0 12/10/17 07:22 101 20 89 Mask 7.0 12/10/17 02:00 99 123/75 (91) 90 Oxymask 7.0 12/10/17 00:03 36.6 102 18 129/109 (116) 89 12/10/17 00:00 BiPAP 12/09/17 23:50 104 95 6.0 12/09/17 20:00 Oxymask 7.0 12/09/17 19:54 98 20 90 Mask 7.0 12/09/17 16:31 Oxymask 7.0 12/09/17 15:10 100 24 107/70 (82) 89 Oxymask 7.0 12/09/17 14:29 98 20 90 Mask 7.0 Physical Exam: General-aaox3, obese Eyes-no scleral icterus ENT-mmm Neck-supple Lungs-cta anteriorly Heart-regular Abdomen-bs+, pannus+ Extremities-+2 to 3 edema Neuro-nonfocal Current Inpatient Medications Medications (Trade) Dose Ordered Sig/Bruno Route Start Time Stop Time Status Last Admin Dose Admin Bumetanide (Bumex Tab) 2 mg BID17 PO 11/30/17 09:00 12/30/17 08:59 Future Hold Acetaminophen (Tylenol Tab) 650 mg Q4H PRN PO 11/29/17 18:30 12/29/17 18:29 Al Hydrox/Mg Hydrox/Simethicone (Maalox Max Susp) 15 ml Q4H PRN PO 11/29/17 18:30 12/29/17 18:29 Magnesium Hydroxide (Milk Of Magnesia Susp) 30 ml Q6H PRN PO 11/29/17 18:30 12/29/17 18:29 Polyethylene (Miralax Powder Packet) 17 gm DAILY PRN PO 11/29/17 18:30 12/29/17 18:29 Ondansetron HCl (Zofran Inj) 4 mg Q6H PRN IV 11/29/17 18:30 12/29/17 18:29 12/10/17 11:14 4 MG Insulin Aspart (novoLOG ASPART) SLIDING SCALE G... ACHS SC 11/29/17 21:00 12/29/17 20:59 12/09/17 18:22 4 UNITS Clotrimazole (Lotrimin 1% Crm) 1 appln Q12 PRN EXT 11/29/17 18:30 12/29/17 18:29 Ergocalciferol (Vitamin D Cap) 50,000 interunit Fr@0900 PO 12/06/17 09:00 01/05/18 08:59 12/06/17 09:00 50,000 INTERUNIT Heparin Sodium (Porcine) (Heparin 10 Unit/ ml 5 ml Flush) 5 ml BID FLUSH 11/29/17 20:00 12/29/17 20:59 12/09/17 09:26 5 ML Albuterol/ Ipratropium (Duoneb) 3 ml Q4H PRN INH 11/29/17 18:30 12/29/17 18:29 12/03/17 10:25 3 ML Albuterol/ Ipratropium (Duoneb) 3 ml Q6R INH 11/29/17 21:00 12/29/17 20:59 12/10/17 07:20 3 ML Spironolactone (Aldactone Tab) 25 mg DAILY PO 11/30/17 08:00 12/30/17 08:59 Future Hold 12/06/17 09:00 25 MG Bisacodyl (Dulcolax Supp) 10 mg DAILY PRN IN 11/29/17 18:30 12/29/17 18:29 Buspirone HCl (Buspar Tab) 5 mg Q12 PRN PO 11/29/17 18:30 12/29/17 18:29 Miscellaneous (Iv Fluids Completed) 1 ea PRN PRN N/A 11/29/17 19:15 11/29/18 19:14 Miconazole Nitrate (Desenex Powder) 1 appln UD PRN EXT 11/30/17 19:00 12/30/17 18:59 Oxycodone HCl (Roxicodone Immediate Rel Tab) 10 mg Q4H PRN PO 12/01/17 11:15 12/13/17 18:29 12/09/17 23:05 10 MG Heparin Sodium (Porcine) (Heparin 10 Unit/ ml 5 ml Flush) 5 ml PRN PRN FLUSH 12/02/17 15:45 01/01/18 15:44 12/09/17 08:30 5 ML Metolazone (Zaroxolyn Tab) 5 mg Q24H PO 12/03/17 13:30 01/02/18 13:29 Future Hold 12/06/17 13:39 5 MG Insulin Glargine (Lantus Solostar Pen) 12 units QAM SQ 12/05/17 08:00 12/30/17 08:59 12/10/17 07:34 12 UNITS Artificial Tears (Artificial Tears) 2 drops Q3H PRN OP 12/04/17 11:15 01/03/18 11:14 Diphenhydramine HCl (Benadryl Cap) 25 mg Q4H PRN PO 12/04/17 19:00 01/03/18 18:59 12/04/17 20:35 25 MG Metoprolol Tartrate (Lopressor Tab) 12.5 mg BID PO 12/06/17 20:00 01/04/18 19:59 Future Hold Bumetanide 2 mg/ Syringe 8 ml @ 4 mls/min TID IV 12/06/17 14:00 01/05/18 13:59 Future Hold 12/06/17 13:20 4 MLS/MIN Artificial Tears (Lacri-Lube Oph Oint) 1 appln BID OP 12/07/17 20:00 01/06/18 19:59 Sodium Chloride 1,000 ml @ 50 mls/hr Q20H IV 12/08/17 09:30 01/07/18 09:29 12/10/17 02:18 50 MLS/HR Naphazoline HCl/ Pheniramine Maleate (Visine-A Oph Soln) 2 drops TID OP 12/08/17 14:00 01/07/18 13:59 12/09/17 13:32 2 DROPS Enoxaparin Sodium (Lovenox Inj) 30 mg Q24H SQ 12/08/17 09:00 01/07/18 08:59 Fexofenadine HCl (Tanesha Tab) 180 mg QAM PO 12/09/17 08:00 01/08/18 07:59 Albumin Human (Albumin 25%) 25 gm DAILY ONCE IV 12/10/17 12:00 12/10/17 12:01 UNV Last 24 Hours Test 12/09/17 16:54 12/10/17 07:17 12/10/17 08:06 12/10/17 10:17 Bedside Glucose 140 mg/dl 157 mg/dl Sodium Level 131 mmol/L Potassium Level 5.2 mmol/L Chloride Level 93 mmol/L Carbon Dioxide Level 28 mmol/L Anion Gap 11.0 mmol/L Blood Urea Nitrogen 92 mg/dl Creatinine 4.05 mg/dl Est Creatinine Clear Calc Drug Dose 20.6 ml/min Estimated GFR () 13.2 Estimated GFR (Non- 11.4 BUN/Creatinine Ratio 22.6 Random Glucose 160 mg/dl Calcium Level 7.9 mg/dl Bedside Blood Gas pH (LAB) 7.26 Bedside Blood Gas pCO2 (LAB) 67 mmHg Bedside Blood Gas pO2 (LAB) 33 mmHg Bedside Blood Gas HCO3 (LAB) 30 meq/L Bedside Blood Gas Total CO2 32 mEq/l Bedside Blood Gas Base Excess (LAB) 3.0 meq/L Bedside Blood Gas O2 Saturation 52.0 % Assessment & Plan [id number] on hold-creatinine continues to worsen. may need dialysis. k is trending up and given kayexalate and low k diet. for now, continue conservative measures while we wait and watch creatinine trend. to check a random urine sodium.
[2017-12-10] MEDS: ALBUMIN HUMAN 25% 12.5 GM/50 ML VIAL IV SCH ×2 (14:19→16:40)
--- NOTE | 2017-12-10 20:56 | Progress Note ---
Subjective Date of Service: Dec 10, 2017. Subjective Pt evaluation today including: conversation w/ patient, conversation w/ family (son Brown by phone), physical exam, chart review, lab review, review of studies (right heart cath), conversation w/ commercial solar sales consultant (nephrology), review of inpatient medication list Pain: neck but declined intervention for such PO Intake: fair Voiding: rodriguez catheter in place events of last 24 hours reviewed I saw the patient on the telemetry unit after her right heart cath she was extremely irritated/agitated and did not want to have a detailed discussion she was aware we were headed in the direction of dialysis and when asked if she would want HD (she had told us in the past she would "never go on dialysis") she stated "do I have any other choice?" she kept repeating over and over "I have to get this fluid off" lengthy discussion held with pt's son, Brown, who lives in [place] Problem List Medical Problems: (1) Acute renal disease Status: Acute (2) Acute renal failure Status: Acute (3) ELIZABETH (acute kidney injury) Status: Acute (4) ELIZABETH (acute kidney injury) Status: Acute (5) Anemia Status: Acute (6) Cellulitis Status: Acute (7) Cellulitis of both lower extremities Status: Acute (8) CHF (congestive heart failure) Status: Acute (9) CHF (congestive heart failure) Status: Acute (10) Dehydration Status: Acute (11) Fluid overload Status: Acute (12) Hypoxia Status: Acute (13) Pickwickian syndrome Status: Acute (14) Pneumonia Status: Acute (15) Respiratory failure Status: Acute (16) Sacral decubitus ulcer, stage III Status: Acute (17) UTI (urinary tract infection) Status: Acute (18) UTI (urinary tract infection) due to urinary indwelling Rodriguez catheter Status: Acute Review of Systems Constitutional: + fatigue Respiratory: + cough, + shortness of breath, + dyspnea on exertion, No sputum Cardiac: + edema, No chest pain Abdomen: + pain Musculoskeletal: + see HPI, + joint pain Objective Vital Signs Date Time Temp Pulse Resp B/P (MAP) Pulse Ox O2 Delivery O2 Flow Rate FiO2 12/10/17 20:18 36.6 105 24 104/65 (78) 90 Oxymask 10.0 90 12/10/17 15:40 36.3 104 22 92/64 (73) 89 Mask 8.0 12/10/17 14:09 109 20 84 Mask 7.0 12/10/17 12:03 36.6 105 24 115/82 (93) 90 Nasal Cannula 8.0 12/10/17 10:36 92 16 135/82 (99) 90 Mask 8 12/10/17 10:21 94 16 146/85 (105) 91 Mask 8 12/10/17 08:00 Oxymask 7.0 12/10/17 07:26 36.6 103 20 133/62 (85) 89 Oxymask 7.0 12/10/17 07:22 101 20 89 Mask 7.0 12/10/17 02:00 99 123/75 (91) 90 Oxymask 7.0 12/10/17 00:03 36.6 102 18 129/109 (116) 89 12/10/17 00:00 BiPAP 12/09/17 23:50 104 95 6.0 Physical Exam General Appearance: no apparent distress, + obese ENT: pharynx normal Neck: + pertinent finding (unable to assess JVD) Respiratory/Chest: + pertinent finding (course BS b/l with bronchitic cough noted; decreased BS bases) Cardiovascular: no gallop, no murmur, + tachycardia Abdomen: normal bowel sounds, non tender, + distended, + hernia (umbilical - reducible ) Extremities: + pedal edema, + swelling (anasarca to the hips b/l ) Neurologic/Psychiatric: alert, + depressed affect (and very agitated ) Skin: + pertinent finding (b/l shins w/ stasis changes and dressings intact both feet/distal legs; RUE PICC clean) Laboratory Results Last 24 Hours Test 12/10/17 07:17 12/10/17 08:06 12/10/17 10:17 12/10/17 11:14 Bedside Glucose 157 mg/dl 152 mg/dl Sodium Level 131 mmol/L Potassium Level 5.2 mmol/L Chloride Level 93 mmol/L Carbon Dioxide Level 28 mmol/L Anion Gap 11.0 mmol/L Blood Urea Nitrogen 92 mg/dl Creatinine 4.05 mg/dl Est Creatinine Clear Calc Drug Dose 20.6 ml/min Estimated GFR () 13.2 Estimated GFR (Non- 11.4 BUN/Creatinine Ratio 22.6 Random Glucose 160 mg/dl Calcium Level 7.9 mg/dl Bedside Blood Gas pH (LAB) 7.26 Bedside Blood Gas pCO2 (LAB) 67 mmHg Bedside Blood Gas pO2 (LAB) 33 mmHg Bedside Blood Gas HCO3 (LAB) 30 meq/L Bedside Blood Gas Total CO2 32 mEq/l Bedside Blood Gas Base Excess (LAB) 3.0 meq/L Bedside Blood Gas O2 Saturation 52.0 % Test 12/10/17 16:01 12/10/17 20:14 Bedside Glucose 154 mg/dl 154 mg/dl Assessment and Plan 57yo female - 1. acute/chronic hypoxic respiratory failure - acute component due to acute/ chronic CHF. Ongoing and appears worse to me as her volume status has worsened. Offered to change her oxymask to high-flow NC - refused such. BIPAP otherwise. 2. acute/chronic systolic/diastolic CHF along with severe acute/chronic right- sided heart failure (cor pulmonale)- All diuretics on hold due to acute kidney injury. BP too low for low-dose beta lety. Not a candidate for ANA LUISA or ARB due to renal function. She is s/p right heart cath today by Dr. Aguayo. This confirmed her previous echo findings showing severe pulmonary HTN. PCWP and RA pressures very high. Cardiac output was satisfactory on cath today; inotropes not recommended at this time. Her only option for improving her fluid status is likely hemodialysis. 3. severe pulmonary HTN - has worsened over time. I presume her pulmonary HTN is from long-standing, untreated ROHAN and/or VTE. 4. ROHAN - cont BIPAP at hs and use at other times if respiratory status worsens. 5. COPD - does not appear to be in exacerbation at this time. Cont nebs. 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 7. DVT proph - has IVC filter in place; currently on lovenox. Due to worsening renal function change to heparin 5000 BID. 8. chronic rodriguez catheter usage - exchange monthly. Has asymptomatic bacteriuria on recent urine cx. 9. morbid obesity with BMI 48 10. sacral decubitus ulcer, stage 3 - appreciate wound care consult & assistance. Despite lengthy period of time and numerous treatments [facility] it has not healed due to bed-bound status, poor nutritional status, noncompliance, etc. The foul-smelling discharge is concerning. Dr Rothman saw patient in consult yesterday and current treatment plan to continue. 11. b/l foot/heel/achilles ulcers - managed by wound care. 12. ?cirrhosis - CT abd/pelvis in October 2017 showed cirrhotic changes. Suspect this would be from ALFREDO or could be "cardiac" cirrhosis from cor pulmonale. Certainly cirrhosis could be playing a role in her volume overload state. 13. T2DM - control sufficient. 14. positive troponin - likely myocardial demand ischemia in setting of acute/ chronic CHF 15. chronic pain syndrome - cont oxycodone 10mg q4h prn. 16. acute kidney injury/acute renal failure in setting of CKD stage 3-4 - appreciate nephrology consultation. Diuretics on hold. Receiving daily albumin and gentle hydration. BMP shows worsening renal function and there has been little change in her UOP. If renal function worsens despite optimal medical therapy she will need hemodialysis. She is aware of this and appears ready to initiate such if needed. Spoke with Dr. Nava - plan is to allow renal recovery for another 48 hours and if no improvement then HD. 17. hyperkalemia - 2nd to #16 - kayexalate 15gm x 1 (if patient will take). Patient now on telemetry in light of worsening cardiopulmonary/renal status. 18. mood disorder - consider Rx w/ antidepressant (if patient will take). spoke with son, Brown, by phone today relayed our concerns of her worsening volume status, renal status, and her cardiac issues he understands how ill his mother has been in the past as well as currently he understands that if HD is initiated this will potentially help/fix her volume status but it will not fix her cardiac problems he hopes to come see his mother in the next week as he lives in [place] patient transferred to tele status from med/surg due to risking K, worsening pulmonary status, worsening renal status Continued [facility] stay due to: abnormal vital signs, voiding difficulties, ambulation difficulties, multiple IV medications needed, home environment unsafe for pt, other (acute kidney injury ) Discharge planning: nursing home facility
[2017-12-10] MEDS: HEPARIN SOD 5000 UNIT/0.5 ML CARP SQ SCH (21:00)
--- NOTE | 2017-12-10 23:30 | Critical Care Progress Note ---
Critical Care Progress Note Date of Service Dec 11, 2017. Critical Care Progress Note Caridad Watkins is a 57yo female with acute on chronic resp failure, acute renal failure and severe pulm htn that underwent right heart cath by Dr. Aguayo today. I was called by Dr. Bustamante to evaluate Caridad for possible transfer to the unit secondary to concerns from respiratory therapy. I arrived to find the pt on oxy mask with saturations of 85%. She refused to allow me to examine her. She states she does not want the BiPap mask nor does she want to be intubated. Otherwise, she screams "I am fine", "let me alone", "I'm done". She is also yelling obscenities. She appears to be appropriate but will not answer the majority of my questions to thoroughly evaluate this. From speaking with her nurse and respiratory therapist, this behavior is her baseline. Per pt records she is a chronic CO2 retainer. I did order a VBG while at her bedside as she has a PICC in place. Her VBG was 7.219/69.4/32/28.3. I have reviewed her prior blood gasses which range from 61 to 108; the average being in the low 70s. She was previously intubated in Sep 2015 for acute on chronic respiratory failure. She appears to have been intubated for approx 6 days as she was difficult to extubate due to hypoxic episodes and small tidal volumes. On this admission, pt is also in acute renal failure and being followed by nephrology with the impending possibility of requiring HD. Cr now 4.05 and K [address] Giraldo's notes today, pt stated she never wanted that and asked for her other options. He states she was extremely agitated at that time as well. Nephro is continuing to monitor renal function with the possibility of HD in the next 48hrs. Her son Brown lives in [place] and did discuss pts acuity with Dr. Giraldo today. Will currently defer transfer to the unit as pt is refusing Critical care services/treatment such as Bipap or intubation. She remains a full code at this time. Caridad has a plethora of issues and may likely decline further yet and will require our services yet. We will continue to monitor at this point in an attempt to limit her agitation. Recheck lab values as pt will not allow examination or answer all questions VBG in AM or with hypoxia/any mental status change Ammonia level PRP Goal SPO2 > 88% Encourage code status discussion when pt is less agitated Will continue to check on her throughout the night Critical Care Time: 30 minutes; Not including any billable procedures. Thank you for including us in the care of this patient. Please review Dr. Ronnie Chau's addendum for further recommendations. I have personally evaluated and examined this patient. I agree with assessment and plan of Teodora Musa PA-C. I was formally consulted by vascular surgery for placement of a temporary hemodialysis catheter. Please refer to that documentation. I was also consulted for hypoxic hypercarbic respiratory failure. I reviewed Maryuri Musa' s prior note as well as independent evaluation of the chart. This patient is a long-standing history with the institution, I have reviewed her plan of care. It is extremely difficult to get an adequate history as well as obtain an adequate physical from the patient's history of noncompliance. During my evaluation she has repeatedly violated the agreement of her care plan including folder language at myself and staff members, refusal to be treated by particular staff members, refusal to comply with recommended medical treatments (wearing CPAP). Staff has had to disengage several times and attempt to reengage and redirect the patient. These attempts have remained largely unsuccessful. Based off of prior history and in consultation with other medical providers and allied health staff this is the patient's baseline and she certainly does appear to have the capacity to provide consent. Particularly she knows that if she does not undergo dialysis this would ultimately lead to her , she is able to inform me that the only way we can effectively perform dialysis is through the temporary hemodialysis catheter, so despite her initial refusal she is willing to undergo placement secondary to need for hemodialysis. Additional critical care time provided was 50 minutes in the direct management of this patient. This is a life/limb threatening event. This includes time spent evaluating patient, direct bedside care, chart review, placing orders, interpretation of diagnostic studies, discussion with consultants, patient, and/ or family members regarding treatment decisions, as well as other required patient management activities. This time is exclusive of all separately billable procedures, and teaching time and separate from and in addition to any other critical care service time.
[2017-12-11] VITALS (25 sets, daily range): BP systolic 87–168; BP diastolic 45–116; PULSE 76–111; TEMP 36.7–36.9; O2SAT 83–93
[2017-12-11 00:25] LABS: CALCIUM 7.6 mg/dl (8.5-10.1); CREATININE 4.33 mg/dl (0.60-1.20); POTASSIUM 5.7 mmol/L (3.5-5.1)
[2017-12-11] MEDS: ALBUT/IPRATROP 3MG/0.5MG NEB 3 ML VIAL INH SCH ×3 (01:53→20:10)
[2017-12-11 04:30] LABS: HEMOGLOBIN 10.2 g/dL (12.0-16.0); MEAN CELL VOLUME 86.6 fL (80-100); MEAN CORPUSCULAR HEMOGLOBIN 26.8 pg (25-34); MEAN CORPUSCULAR HGB CONC 30.9 g/dl (32-36); MEAN PLATELET VOLUME 10.2 fL (7.4-10.4); PLATELET COUNT 191 K/uL (130-400); WHITE BLOOD COUNT 12.55 K/uL (4.8-10.8)
[2017-12-11 04:45] LABS: CREATININE 4.43 mg/dl (0.60-1.20)
[2017-12-11] MEDS ORDERED: FUROSEMIDE INJ 80 MG in SYRINGE 0 ML IV ONE (08:30)
[2017-12-11 08:53] LABS: CALCIUM 7.4 mg/dl (8.5-10.1); CREATININE 4.62 mg/dl (0.60-1.20); POTASSIUM 5.9 mmol/L (3.5-5.1)
--- NOTE | 2017-12-11 08:58 | Nephrology Progress Note ---
Nephrology Progress Note Date of Service: Dec 11, 2017. Subjective 57 yo female with obesity, volume overload, worsening kidney function. creatinine continues to worsen. pt now grossly volume overloaded and satting low on 15 liters. Objective Date Time Temp Pulse Resp B/P (MAP) Pulse Ox O2 Delivery O2 Flow Rate FiO2 12/11/17 07:34 82 34 153/79 (103) 86 Mask 15.0 12/11/17 04:00 83 Oxymask 15.0 12/11/17 03:48 36.7 88 26 138/82 (100) 83 Oxymask 15.0 12/11/17 00:00 84 Oxymask 15.0 12/10/17 23:40 93 24 125/84 (98) 83 Oxymask 15.0 12/10/17 22:48 85 Oxymask 15.0 12/10/17 22:16 85 Oxymask 10.0 12/10/17 20:18 36.6 105 24 104/65 (78) 90 Oxymask 10.0 90 12/10/17 20:00 90 Oxymask 10.0 12/10/17 15:40 36.3 104 22 92/64 (73) 89 Mask 8.0 12/10/17 14:09 109 20 84 Mask 7.0 12/10/17 12:03 36.6 105 24 115/82 (93) 90 Nasal Cannula 8.0 12/10/17 10:36 92 16 135/82 (99) 90 Mask 8 12/10/17 10:21 94 16 146/85 (105) 91 Mask 8 Physical Exam: General-aaox3, obese Eyes-no scleral icterus ENT-mmm Neck-supple Lungs-decreased at bases Heart-regular Abdomen-bs+, pannus+ Extremities-+2 to 3 edema Neuro-nonfocal Current Inpatient Medications Medications (Trade) Dose Ordered Sig/Bruno Route Start Time Stop Time Status Last Admin Dose Admin Bumetanide (Bumex Tab) 2 mg BID17 PO 11/30/17 09:00 12/30/17 08:59 Future Hold Acetaminophen (Tylenol Tab) 650 mg Q4H PRN PO 11/29/17 18:30 12/29/17 18:29 Al Hydrox/Mg Hydrox/Simethicone (Maalox Max Susp) 15 ml Q4H PRN PO 11/29/17 18:30 12/29/17 18:29 Magnesium Hydroxide (Milk Of Magnesia Susp) 30 ml Q6H PRN PO 11/29/17 18:30 12/29/17 18:29 Polyethylene (Miralax Powder Packet) 17 gm DAILY PRN PO 11/29/17 18:30 12/29/17 18:29 Ondansetron HCl (Zofran Inj) 4 mg Q6H PRN IV 11/29/17 18:30 12/29/17 18:29 12/10/17 11:14 4 MG Insulin Aspart (novoLOG ASPART) SLIDING SCALE G... ACHS SC 11/29/17 21:00 12/29/17 20:59 12/10/17 14:21 3 UNITS Clotrimazole (Lotrimin 1% Crm) 1 appln Q12 PRN EXT 11/29/17 18:30 12/29/17 18:29 Ergocalciferol (Vitamin D Cap) 50,000 interunit Fr@0900 PO 12/06/17 09:00 01/05/18 08:59 12/06/17 09:00 50,000 INTERUNIT Heparin Sodium (Porcine) (Heparin 10 Unit/ ml 5 ml Flush) 5 ml BID FLUSH 11/29/17 20:00 12/29/17 20:59 12/09/17 09:26 5 ML Albuterol/ Ipratropium (Duoneb) 3 ml Q4H PRN INH 11/29/17 18:30 12/29/17 18:29 12/03/17 10:25 3 ML Albuterol/ Ipratropium (Duoneb) 3 ml Q6R INH 11/29/17 21:00 12/29/17 20:59 12/11/17 07:12 3 ML Spironolactone (Aldactone Tab) 25 mg DAILY PO 11/30/17 08:00 12/30/17 08:59 Future Hold 12/06/17 09:00 25 MG Bisacodyl (Dulcolax Supp) 10 mg DAILY PRN AL 11/29/17 18:30 12/29/17 18:29 Buspirone HCl (Buspar Tab) 5 mg Q12 PRN PO 11/29/17 18:30 12/29/17 18:29 Miscellaneous (Iv Fluids Completed) 1 ea PRN PRN N/A 11/29/17 19:15 11/29/18 19:14 Miconazole Nitrate (Desenex Powder) 1 appln UD PRN EXT 11/30/17 19:00 12/30/17 18:59 Oxycodone HCl (Roxicodone Immediate Rel Tab) 10 mg Q4H PRN PO 12/01/17 11:15 12/13/17 18:29 12/09/17 23:05 10 MG Heparin Sodium (Porcine) (Heparin 10 Unit/ ml 5 ml Flush) 5 ml PRN PRN FLUSH 12/02/17 15:45 01/01/18 15:44 12/09/17 08:30 5 ML Metolazone (Zaroxolyn Tab) 5 mg Q24H PO 12/03/17 13:30 01/02/18 13:29 Future Hold 12/06/17 13:39 5 MG Insulin Glargine (Lantus Solostar Pen) 12 units QAM SQ 12/05/17 08:00 12/30/17 08:59 12/10/17 07:34 12 UNITS Artificial Tears (Artificial Tears) 2 drops Q3H PRN OP 12/04/17 11:15 01/03/18 11:14 Diphenhydramine HCl (Benadryl Cap) 25 mg Q4H PRN PO 12/04/17 19:00 01/03/18 18:59 12/04/17 20:35 25 MG Metoprolol Tartrate (Lopressor Tab) 12.5 mg BID PO 12/06/17 20:00 01/04/18 19:59 Future Hold Bumetanide 2 mg/ Syringe 8 ml @ 4 mls/min TID IV 12/06/17 14:00 01/05/18 13:59 Future Hold 12/06/17 13:20 4 MLS/MIN Artificial Tears (Lacri-Lube Oph Oint) 1 appln BID OP 12/07/17 20:00 01/06/18 19:59 Naphazoline HCl/ Pheniramine Maleate (Visine-A Oph Soln) 2 drops TID OP 12/08/17 14:00 01/07/18 13:59 4/24/18 14:24 2 DROPS Fexofenadine HCl (Tanesha Tab) 180 mg QAM PO 12/09/17 08:00 01/08/18 07:59 Heparin Sodium (Porcine) (Heparin Sq 5000 Unit/0.5ml) 5,000 unit Q12 SQ 12/10/17 21:00 01/09/18 20:59 Last 24 Hours Test 12/10/17 10:17 12/10/17 11:14 12/10/17 16:01 12/10/17 20:14 Bedside Blood Gas pH (LAB) 7.26 Bedside Blood Gas pCO2 (LAB) 67 mmHg Bedside Blood Gas pO2 (LAB) 33 mmHg Bedside Blood Gas HCO3 (LAB) 30 meq/L Bedside Blood Gas Total CO2 32 mEq/l Bedside Blood Gas Base Excess (LAB) 3.0 meq/L Bedside Blood Gas O2 Saturation 52.0 % Bedside Glucose 152 mg/dl 154 mg/dl 154 mg/dl Test 12/10/17 21:24 12/10/17 23:46 12/11/17 04:23 12/11/17 06:54 Urine Random Sodium 23 mEq/L Sodium Level 130 mmol/L Potassium Level 5.7 mmol/L Chloride Level 94 mmol/L Carbon Dioxide Level 27 mmol/L Anion Gap 9.0 mmol/L Blood Urea Nitrogen 98 mg/dl Creatinine 4.33 mg/dl 4.43 mg/dl Est Creatinine Clear Calc Drug Dose 19.2 ml/min 18.8 ml/min Estimated GFR () 12.1 11.8 Estimated GFR (Non- 10.5 10.2 BUN/Creatinine Ratio 22.6 Random Glucose 154 mg/dl Calcium Level 7.6 mg/dl Ammonia 79.9 umol/L White Blood Count 12.55 K/uL Red Blood Count 3.81 M/uL Hemoglobin 10.2 g/dL Hematocrit 33.0 % Mean Corpuscular Volume 86.6 fL Mean Corpuscular Hemoglobin 26.8 pg Mean Corpuscular Hemoglobin Concent 30.9 g/dl RDW Standard Deviation 64.0 fL RDW Coefficient of Variation 20.0 % Platelet Count 191 K/uL Mean Platelet Volume 10.2 fL Bedside Glucose 179 mg/dl Test 12/11/17 08:12 Venous Blood pH 7.19 Venous Blood Partial Pressure CO2 67 mmHg Venous Blood Partial Pressure O2 37 mmHg Venous Blood HCO3 25 mmol/L Venous Blood Oxygen Saturation < 60.0 % Venous Blood Base Excess -3.6 mEq/L Sodium Level 130 mmol/L Potassium Level 5.9 mmol/L Chloride Level 93 mmol/L Carbon Dioxide Level 25 mmol/L Anion Gap 12.0 mmol/L Blood Urea Nitrogen 98 mg/dl Creatinine 4.62 mg/dl Est Creatinine Clear Calc Drug Dose 18.7 ml/min Estimated GFR () 11.2 Estimated GFR (Non- 9.7 BUN/Creatinine Ratio 21.2 Random Glucose 177 mg/dl Calcium Level 7.4 mg/dl Assessment & Plan [id number] worsening and now fluid overloaded. needs dialysis. will plan on a temporary dialysis catheter today and go for a 2 hour treatment today. will give her one gram of calcium gluconate. refusing kayexalate.
[2017-12-11] MEDS ORDERED: CALCIUM GLUCONATE 10% 1,000 MG in SODIUM CHLORIDE 0.9% 50ML 50 ML IV STA (09:05)
[2017-12-11] MEDS ORDERED: LIDOCAINE HCL 1% 20 ML VIAL ONE ×2 (09:25→12:51)
[2017-12-11] MEDS ORDERED: HEPARIN SOD (PORCINE) 5000 UNIT/ML 1 ML VIAL ONE (09:25)
--- NOTE | 2017-12-11 09:30 | Surgery Consultation ---
Consultation Date of Service Dec 11, 2017. Chief Complaint ESRD, need access for HD History of Present Illness The patient is a 57 year old female with multiple medical problems, including DMII, HTN, R sided heart failure, pulmonary htn, CKD, admitted with CHF after significant fluid weight gain and dyspnea/cough, seen in consultation today for HD access for urgent HD. Pt refuses to give much hx. Admits PADILLA, SOB, cough, edema. Denies other complaints presently. Per records and staff, pt K increased to 5.7, also respiratory status deteriorating, with increasing oyxgen requirements and oxygen sat 86%. Vitals Vital Signs Past 12 Hours Date Time Temp Pulse Resp B/P (MAP) Pulse Ox O2 Delivery O2 Flow Rate FiO2 12/11/17 07:34 82 34 153/79 (103) 86 Mask 15.0 12/11/17 04:00 83 Oxymask 15.0 12/11/17 03:48 36.7 88 26 138/82 (100) 83 Oxymask 15.0 12/11/17 00:00 84 Oxymask 15.0 12/10/17 23:40 93 24 125/84 (98) 83 Oxymask 15.0 12/10/17 22:48 85 Oxymask 15.0 12/10/17 22:16 85 Oxymask 10.0 Allergies Coded Allergies: Vancomycin (Verified Allergy, Severe, ANAPHYLAXIS, 10/31/17) pt began shaking,face and neck bright red rash.o2 saturation dropping to 84% on 15lnrb Ampicillin (Verified Allergy, Mild, RASH, 10/31/17) Clindamycin (Verified Allergy, Mild, RASH, 10/31/17) Linezolid (Verified Allergy, Mild, RASH, 10/31/17) Penicillins (Verified Allergy, Mild, RASH, 10/31/17) Ciprofloxacin (Verified Adverse Reaction, Mild, MUSCLE ACHES, 10/31/17) muscle aches Methimazole (Verified Adverse Reaction, Mild, headache, 10/31/17) headache Nystatin (Verified Adverse Reaction, Mild, nausea, abd pain, kidney pain, 10/31/17) nausea, abd pain,kidney pain Home Medications Scheduled Bisacodyl (Dulcolax), 1 SUPP OH PRN UD Bumetanide (Bumex), 1 TAB PO TID Bumetanide (Bumex), 2 MG PO UD Docusate Sodium (Colace), 1 CAP PO HS Ergocalciferol (Vitamin D 30330 Unit), 1 TAB PO WK Fluconazole (Diflucan), 100 MG PO Q2D Glimepiride (Glimepiride), 3 TAB PO DAILY Guaifenesin (Guaifenesin), 10 ML PO QID Heparin Sodium (Porcine) Lock (Heparin Lock Flush), 5 ML IVF BID Imipenem-Cilastatin (Primaxin Iv), 300 MG PO Q6 Insulin Aspart (Novolog Flexpen), UNITS SQ ACHS Insulin Glargine (Lantus Solostar), 10 UNITS SQ QAM Ipratropium-Albuterol (Duoneb), 1 TREATMENT INH Q6 Multivitamins/Minerals (Mvi With Minerals), 1 TAB PO DAILY Protein (Beneprotein), 1 DOSE PO TID Spironolactone (Aldactone), 25 MG PO 2XWK Trazodone Hcl (Trazodone), 25 MG PO HS [Prealbumin], UD Scheduled PRN Acetaminophen (Tylenol), 650 MG PO Q8 PRN for temp > 101 Acetaminophen (Tylenol), 650 MG PO Q6 PRN for PAIN 1-5 Buspirone Hcl (Buspirone Hcl), 5 MG PO Q12 PRN for Anxiety Clotrimazole (Lotrimin 1%), 1 APPLN TOP Q12 PRN for RASH Ipratropium-Albuterol (Duoneb), 1 TREATMENT INH Q4H PRN for COUGH/WHEEZING Magnesium Hydroxide (Milk Of Magnesia), 30 ML PO Q72HRS PRN for Constipation Oxycodone HCl (Oxycodone HCl), 5 MG PO Q6 PRN for PAIN 6-10 Problem List Medical Problems: (1) Acute respiratory failure (2) CHF (congestive heart failure) (3) Chills (4) Femur fracture, left (5) Hyponatremia (6) Hypoxia (7) Leg swelling (8) Leg ulcer (9) Leukocytosis (10) MRSA (methicillin resistant Staphylococcus aureus) infection (11) MRSA lower extremity wounds (12) Pneumonia (13) Sacral decubitus ulcer, stage IV Surgical / Medical History Hx Cardiac Surgery: No Hx Abdominal Surgery: Yes (csection) Hx Cancer Surgery: Yes Hx Thoracic Surgery: No Hx Orthopedic: Yes (left hip) Hx Urinary Tract Surgery: No HX Other Surgery: Yes Past Medical/Surgical History: CHF, Diabetes, Hypertension, Kidney Disease Family History No pertinent family history pt refuses to answer Social History Smoking Status: Former Smoker Hx Tobacco Use In Past Year?: Yes Hx Alcohol Use - Type & Amnt: No Hx Substance Use -Type & Amnt: No Review of Systems Constitutional: + malaise, No fever Skin: No change in color Eyes: No visual changes ENMT: No sore throat Respiratory: + cough, + PADILLA, + orthopnea, + short of breath Cardiovascular: + edema Gastrointestinal: No abdominal pain Additional Comments: pt refuses to answer furthe questions. Physical Exam Constitutional: General Apperance: well-developed, obese (morbidly) Level of Distress: mild distress, acutely ill, chronically ill Psychiatric: Mental Status: anxious, agitated Orientation: oriented except where noted, to time, to place, to person Memory: recent memory normal, remote memory normal Head: normocephalic, atraumatic Eyes: EOM: EOMI ENMT: normal ENT inspection, hearing grossly normal Neck: supple, trachea midline Lungs: Respiratory effort: dyspneic, tachypneic Auscultation: wet rales/crackles Cardiovascular: Heart Auscultation: RRR, no rubs, no gallops, pertinent finding Peripheral Pulses: Pulses: full and equal, in all extremities except if noted Bruits: none appreciated Carotid Pulse: normal on the left, normal on the right Brachial Pulses: normal on the left, normal on the right Radial Pulse: normal on the left, normal on the right Femoral Pulse: pertinent finding (unable to palpate d/t edema) Posterior Tibialis Pulse: pertinent finding (unable to palpate d/t edema) Dorsalis Pedis Pulse: pertinent finding (unable to palpate d/t edema) Abdomen: Bowel Sounds: normal Inspection & Palpation: distended, pertinent finding (massive edema and pannus, with skin changes from chronic edema) Musculoskeletal: normal strength (5/5 throughout), normal tone Extremities: Upper Right: no cyanosis, edema Upper Left: no cyanosis, edema Lower Right: no cyanosis, edema, ulcers Lower Left: no cyanosis, no varicosities, edema, ulcers Neurologic: Cranial Nerves: grossly intact Sensation: grossly intact Assessment and Plan ASSESSMENT and PLAN: ESRD, need HD access Pt for temporary HD catheter later this morning. Can consider for permcath insertion later this week if pt stabilizes. Pt agreeable.
--- NOTE | 2017-12-11 09:34 | Progress Note ---
Subjective Date of Service: Dec 11, 2017. Subjective Pt evaluation today including: conversation w/ patient, physical exam, chart review, lab review, conversation w/ lending consultant (nephrology), review of inpatient medication list Pain: generalized discomfort PO Intake: trying to eat breakfast but poor appetite Voiding: rodriguez catheter in place tele stable overnight patient very, very agitated this am and argumentative, stating that "no one here knows what they are doing" she is refusing kayexalate for her hyperkalemia she refused BIPAP despite attempts by RT and critical care PA encouraging such she is very short of breath this am no urine output since midnight Problem List Medical Problems: (1) Acute renal disease Status: Acute (2) Acute renal failure Status: Acute (3) ELIZABETH (acute kidney injury) Status: Acute (4) ELIZABETH (acute kidney injury) Status: Acute (5) Anemia Status: Acute (6) Cellulitis Status: Acute (7) Cellulitis of both lower extremities Status: Acute (8) CHF (congestive heart failure) Status: Acute (9) CHF (congestive heart failure) Status: Acute (10) Dehydration Status: Acute (11) Fluid overload Status: Acute (12) Hypoxia Status: Acute (13) Pickwickian syndrome Status: Acute (14) Pneumonia Status: Acute (15) Respiratory failure Status: Acute (16) Sacral decubitus ulcer, stage III Status: Acute (17) UTI (urinary tract infection) Status: Acute (18) UTI (urinary tract infection) due to urinary indwelling Rodriguez catheter Status: Acute Review of Systems Constitutional: No fever Respiratory: + cough, + wheezing, + shortness of breath, + dyspnea on exertion Cardiac: + orthopnea, No chest pain Abdomen: No pain Objective Vital Signs Date Time Temp Pulse Resp B/P (MAP) Pulse Ox O2 Delivery O2 Flow Rate FiO2 12/11/17 07:34 82 34 153/79 (103) 86 Mask 15.0 12/11/17 04:00 83 Oxymask 15.0 12/11/17 03:48 36.7 88 26 138/82 (100) 83 Oxymask 15.0 12/11/17 00:00 84 Oxymask 15.0 12/10/17 23:40 93 24 125/84 (98) 83 Oxymask 15.0 12/10/17 22:48 85 Oxymask 15.0 12/10/17 22:16 85 Oxymask 10.0 12/10/17 20:18 36.6 105 24 104/65 (78) 90 Oxymask 10.0 90 12/10/17 20:00 90 Oxymask 10.0 12/10/17 15:40 36.3 104 22 92/64 (73) 89 Mask 8.0 12/10/17 14:09 109 20 84 Mask 7.0 12/10/17 12:03 36.6 105 24 115/82 (93) 90 Nasal Cannula 8.0 12/10/17 10:36 92 16 135/82 (99) 90 Mask 8 12/10/17 10:21 94 16 146/85 (105) 91 Mask 8 Physical Exam General Appearance: + mild distress (tachypneic, coughing, agitated, tremulous) ENT: + pertinent finding (MM dry) Neck: + pertinent finding (difficult to assess for JVD) Respiratory/Chest: + respiratory distress, + decreased breath sounds (bases), + crackles, + wheezing Cardiovascular: no gallop, no murmur, + tachycardia Abdomen: non tender, + distended (worse than previous exams; anasarca and ascites) Extremities: + swelling (severe, from feet up to pelvis - maybe slightly worse than yesterday) Neurologic/Psychiatric: alert, + pertinent finding (uremic tremors noted today) Skin: + pertinent finding (stasis changes b/l legs; dressings intact b/l feet/ legs) Laboratory Results Last 24 Hours Test 12/10/17 10:17 12/10/17 11:14 12/10/17 16:01 12/10/17 20:14 Bedside Blood Gas pH (LAB) 7.26 Bedside Blood Gas pCO2 (LAB) 67 mmHg Bedside Blood Gas pO2 (LAB) 33 mmHg Bedside Blood Gas HCO3 (LAB) 30 meq/L Bedside Blood Gas Total CO2 32 mEq/l Bedside Blood Gas Base Excess (LAB) 3.0 meq/L Bedside Blood Gas O2 Saturation 52.0 % Bedside Glucose 152 mg/dl 154 mg/dl 154 mg/dl Test 12/10/17 21:24 12/10/17 23:46 12/11/17 04:23 12/11/17 06:54 Urine Random Sodium 23 mEq/L Sodium Level 130 mmol/L Potassium Level 5.7 mmol/L Chloride Level 94 mmol/L Carbon Dioxide Level 27 mmol/L Anion Gap 9.0 mmol/L Blood Urea Nitrogen 98 mg/dl Creatinine 4.33 mg/dl 4.43 mg/dl Est Creatinine Clear Calc Drug Dose 19.2 ml/min 18.8 ml/min Estimated GFR () 12.1 11.8 Estimated GFR (Non- 10.5 10.2 BUN/Creatinine Ratio 22.6 Random Glucose 154 mg/dl Calcium Level 7.6 mg/dl Ammonia 79.9 umol/L White Blood Count 12.55 K/uL Red Blood Count 3.81 M/uL Hemoglobin 10.2 g/dL Hematocrit 33.0 % Mean Corpuscular Volume 86.6 fL Mean Corpuscular Hemoglobin 26.8 pg Mean Corpuscular Hemoglobin Concent 30.9 g/dl RDW Standard Deviation 64.0 fL RDW Coefficient of Variation 20.0 % Platelet Count 191 K/uL Mean Platelet Volume 10.2 fL Bedside Glucose 179 mg/dl Test 12/11/17 08:12 Venous Blood pH 7.19 Venous Blood Partial Pressure CO2 67 mmHg Venous Blood Partial Pressure O2 37 mmHg Venous Blood HCO3 25 mmol/L Venous Blood Oxygen Saturation < 60.0 % Venous Blood Base Excess -3.6 mEq/L Sodium Level 130 mmol/L Potassium Level 5.9 mmol/L Chloride Level 93 mmol/L Carbon Dioxide Level 25 mmol/L Anion Gap 12.0 mmol/L Blood Urea Nitrogen 98 mg/dl Creatinine 4.62 mg/dl Est Creatinine Clear Calc Drug Dose 18.7 ml/min Estimated GFR () 11.2 Estimated GFR (Non- 9.7 BUN/Creatinine Ratio 21.2 Random Glucose 177 mg/dl Calcium Level 7.4 mg/dl Assessment and Plan 57yo female - 1. acute/chronic hypoxic respiratory failure - acute component due to acute/ chronic CHF and volume overload from acute renal failure - much worse overnight due to worsening pulmonary edema. Ideally we use BIPAP but she is refusing; change oxymask to HF NC now. She is being prepped for emergent HD today. 2. acute/chronic systolic/diastolic CHF along with severe acute/chronic right- sided heart failure (cor pulmonale)- All diuretics on hold due to acute kidney injury. BP too low for low-dose beta lety. Not a candidate for ANA LUISA or ARB due to renal function. She is s/p right heart cath by Dr. Aguayo. This confirmed her previous echo findings showing severe pulmonary HTN. PCWP and RA pressures very high. Cardiac output was satisfactory on cath and thus inotropes not recommended. To start HD today, if she is agreeable. 3. severe pulmonary HTN - has worsened over time. I presume her pulmonary HTN is from long-standing, untreated ROHAN and/or VTE. 4. ROHAN - refusing BIPAP. 5. COPD - does not appear to be in exacerbation at this time. Cont nebs. 6. CKD stage 3-4 - creatinine continues to worsen and HD planned for today. 7. DVT proph - has IVC filter in place; currently on heparin 5000 BID. 8. chronic rodriguez catheter usage - exchange monthly. Has asymptomatic bacteriuria on recent urine cx. 9. morbid obesity with BMI 48 10. sacral decubitus ulcer, stage 3 - appreciate wound care consult & assistance. Despite lengthy period of time and numerous treatments [facility] it has not healed due to bed-bound status, poor nutritional status, noncompliance, etc. The foul-smelling discharge is concerning. Dr Rothman saw patient in consult and current treatment plan to continue. 11. b/l foot/heel/achilles ulcers - managed by wound care. 12. ?cirrhosis - CT abd/pelvis in October 2017 showed cirrhotic changes. Suspect this would be from ALFREDO or could be "cardiac" cirrhosis from cor pulmonale. Certainly cirrhosis could be playing a role in her volume overload state. 13. T2DM - control sufficient. 14. positive troponin - likely myocardial demand ischemia in setting of acute/ chronic CHF 15. chronic pain syndrome - cont oxycodone 10mg q4h prn. 16. acute kidney injury/acute renal failure in setting of CKD stage 3-4 - appreciate nephrology consultation. Start emergent HD today. Vascular surgery consulted. 17. hyperkalemia - 2nd to #16 - refusing kayexalate. lasix 80mg IV x 1 now. 18. mood disorder - consider Rx w/ antidepressant (if patient will take). spoke with son, Brown, by phone on 12/10/17; extensive update given on her worsening volume status, renal status, and her cardiac issues; told him HD was imminent left message for Brown on his voicemail on 12/11/17 informing him that HD would be started today at conclusion of my visit with her today she stated "I don't want to see you anymore - you're so negative" I informed the patient that she had previously fired my partners that are currently on-service (Luis Eduardo Morgan & Abby) her only other option with be the [facility] Resident team I will re-address this later today once HD has been initiated Continued [facility] stay due to: abnormal vital signs, voiding difficulties, ambulation difficulties, multiple IV medications needed, home environment unsafe for pt, other (acute kidney injury with emergent need for HD) Discharge planning: uncertain
[2017-12-11] MEDS: INSULIN ASPART 100 UNITS/ML 3 ML PEN SC SCH ×4 (11:00→21:00)
[2017-12-11] MEDS: NAPHAZOLIN/PHENIRAMIN OPH SOLN 75 DROPS/5 ML BTL OP SCH ×3 (14:00→21:00)
[2017-12-11] MEDS: ARTIFICIAL TEARS OP OINT 3.5 GM TUBE OP SCH ×2 (14:04→21:00)
[2017-12-11] MEDS: FEXOFENADINE HCL 180 MG TAB PO SCH (14:05)
[2017-12-11] MEDS: INSULIN GLARGINE SOLOSTAR 100 UNITS/ML 3 ML PEN SQ SCH (14:05)
[2017-12-11] MEDS: HEPARIN SOD 5000 UNIT/0.5 ML CARP SQ SCH ×2 (14:05→21:00)
--- NOTE | 2017-12-11 14:13 | DIAGNOSTIC IMAGING REPORT ---
CHEST ONE VIEW PORTABLE CLINICAL HISTORY: Central venous catheter placement COMPARISON STUDY: 11/29/2017 FINDINGS: The study is significantly limited from a technical standpoint. The heart is mildly enlarged. The right-sided PICC catheter remains unchanged in position. There has been interval placement of a right internal jugular central venous catheter. The tip projects over the superior vena cava. There is no pneumothorax. Increased density at both lung bases, likely secondary to overlying soft tissues.[ IMPRESSION: No evidence of pneumothorax status post placement of a right internal jugular central venous catheter Electronically signed by: Tima Sorensen M.D. 12/11/2017 2:12 PM Dictated Date/Time: 12/11/2017 2:10 PM
[2017-12-11] MEDS: OXYCODONE HCL IR 5 MG TAB (IMMEDIATE RELEASE) PO PRN (21:56)
--- NOTE | 2017-12-11 22:40 | Procedure Note ---
Procedure Note Procedure Date Dec 11, 2017. Central Line Procedure time out: side/site verified, patient ID confirmed, sterile procedure used Consent obtained: written Time of procedure: 13:00 Performed by: attending Indications: other (Temporary hemodialysis catheter for acute kidney injury and renal insufficiency) Prep: chlorhexadine prep, sterile drape, sterile procedures used Anesthesia: lidocaine 1% without epi Volume anesthetic (ml's): 3 Central line lumen: double Central line location: internal jugular (R) Additional details: ultrasound guidance, Selinger technique used, line sutured , good blood return CXR: appropriate position Complications: none Patient tolerated procedure: well Post-procedure vital signs: reviewed and stable Comments: Critical Care Medicine Point of Care Bedside Ultrasound Procedure: Procedural Ultrasound Procedure Date: December 11, 2017 Indication: Temporary hemodialysis catheter placement Attending: Marcin Chau DO Resident/Physician Enrollment Clerk: Diana Richardson Organs Examined: Right carotid right internal jugular vein Objects visualized: Guidewire If for central venous access Artery AND Vein visualized: Yes Compressible Vein: Yes Guidewire or Short Catheter seen in vein prior to dilation: Yes Line confirmed in Vein with ultrasound: Yes Lung Sliding on side of attempt (if applicable): Not applicable If no lung sliding or not obtained has CXR been ordered: Chest x-ray reviewed Impression: Successful placement of right internal jugular temporary hemodialysis catheter Images obtained are saved for permanent record
[2017-12-12] VITALS (46 sets, daily range): BP systolic 79–136; BP diastolic 40–113; PULSE 79–109; TEMP 36–36.8; O2SAT 74–95
[2017-12-12] MEDS: ALBUT/IPRATROP 3MG/0.5MG NEB 3 ML VIAL INH SCH ×4 (02:04→20:00)
[2017-12-12 04:25] LABS: HEMOGLOBIN 9.9 g/dL (12.0-16.0); MEAN CELL VOLUME 86.7 fL (80-100); MEAN CORPUSCULAR HEMOGLOBIN 26.8 pg (25-34); MEAN CORPUSCULAR HGB CONC 30.9 g/dl (32-36); MEAN PLATELET VOLUME 9.3 fL (7.4-10.4); PLATELET COUNT 165 K/uL (130-400); RED CELL DISTRIBUTION WIDTH SD 64.1 fL (36.4-46.3); WHITE BLOOD COUNT 13.22 K/uL (4.8-10.8)
[2017-12-12 04:43] LABS: CALCIUM 7.2 mg/dl (8.5-10.1); CREATININE 4.39 mg/dl (0.60-1.20); POTASSIUM 5.6 mmol/L (3.5-5.1)
[2017-12-12 05:12] LABS: PHOSPHORUS 9.2 mg/dl (2.5-4.9)
[2017-12-12] MEDS: INSULIN ASPART 100 UNITS/ML 3 ML PEN SC SCH ×4 (08:10→20:50)
[2017-12-12] MEDS: ARTIFICIAL TEARS OP OINT 3.5 GM TUBE OP SCH ×2 (08:11→20:51)
[2017-12-12] MEDS: HEPARIN SOD 5000 UNIT/0.5 ML CARP SQ SCH (08:11)
[2017-12-12] MEDS: FEXOFENADINE HCL 180 MG TAB PO SCH (08:12)
[2017-12-12] MEDS: NAPHAZOLIN/PHENIRAMIN OPH SOLN 75 DROPS/5 ML BTL OP SCH ×3 (08:15→20:51)
[2017-12-12] MEDS: INSULIN GLARGINE SOLOSTAR 100 UNITS/ML 3 ML PEN SQ SCH (08:15)
--- NOTE | 2017-12-12 08:53 | DIAGNOSTIC IMAGING REPORT ---
SINGLE VIEW CHEST CLINICAL HISTORY: Hypoxia. FINDINGS: An AP, portable, upright chest radiograph is compared to study dated 12/11/2017. Correlation is made with chest CT dated 11/02/2017. The examination is severely degraded by portable technique, large body habitus, and patient rotation. A right internal jugular central venous catheter is unchanged in position. The heart is markedly enlarged and there is atherosclerotic calcification of the thoracic aorta. The pulmonary vasculature is noncongested. There are low lung volumes. Trace pleural effusions are identified with bibasilar opacities. No pneumothorax is seen. The skeletal structures are osteopenic. The bony thorax is grossly intact. IMPRESSION: 1. Cardiomegaly without radiographic evidence of congestive failure. 2. Low lung volumes. 3. Trace pleural effusions are identified with bibasilar opacities. This likely represents atelectasis. Clinical correlation will be required. Electronically signed by: Carlyle Garcia M.D. 12/12/2017 8:43 AM Dictated Date/Time: 12/12/2017 8:41 AM
[2017-12-12] MEDS: ONDANSETRON INJ 2 MG/ML 2 ML VIAL IV PRN (13:22)
[2017-12-12] MEDS: HEPARIN SQ 5000 UNIT/0.5ML 7,500 UNIT in SYRINGE 0 ML SC SCH ×2 (13:22→21:51)
--- NOTE | 2017-12-12 14:29 | Nephrology Progress Note ---
Nephrology Progress Note Date of Service: Dec 12, 2017. Subjective 57 yo female with obesity, volume overload, worsening kidney function. anuric. pt now on bipap with significant right sided heart failure. had dialysis today and yesterday. eating well. Objective Date Time Temp Pulse Resp B/P (MAP) Pulse Ox O2 Delivery O2 Flow Rate FiO2 12/12/17 13:30 97 111/57 12/12/17 13:15 109 101/41 12/12/17 13:00 107 104/66 12/12/17 12:45 102 101/40 12/12/17 12:30 101 102/49 12/12/17 12:15 104 95/48 12/12/17 12:00 104 103/49 12/12/17 12:00 103 20 136/63 (87) 81 BiPAP 15.0 12/12/17 12:00 81 BiPAP 15.0 12/12/17 11:45 108 97/62 12/12/17 11:37 102 82 15.0 12/12/17 11:30 103 103/56 12/12/17 11:15 102 89/73 12/12/17 11:00 103 136/63 12/12/17 10:50 92 120/59 12/12/17 10:41 36.5 84 122/51 (74) 12/12/17 10:00 87 20 75 BiPAP 15.0 12/12/17 08:29 85 74 15.0 12/12/17 08:00 36.8 79 22 75 BiPAP 15.0 12/12/17 08:00 75 BiPAP 15.0 12/12/17 08:00 High Flow Oxygen 100 12/12/17 07:50 81 24 76 Nasal Cannula 55.0 100 12/12/17 04:00 92 23 90 12/12/17 04:00 84 High Flow Oxygen 55.0 100 12/12/17 02:17 87 22 88 Nasal Cannula 55.0 95 12/12/17 02:00 95 22 84 12/12/17 00:00 90 21 89 12/11/17 23:59 90 High Flow Oxygen 55.0 100 12/11/17 23:00 36.8 92 24 90 12/11/17 22:00 82 23 88 12/11/17 21:00 89 31 85 High Flow Oxygen 55.0 100 12/11/17 20:24 29 123/86 (98) 84 12/11/17 20:00 90 High Flow Oxygen 50.0 100 12/11/17 19:29 36.9 90 27 87/69 (75) 89 12/11/17 18:00 100 18 136/116 (123) 90 High Flow Oxygen 50.0 100 12/11/17 16:45 36.8 108 110/45 (66) 12/11/17 16:30 96 111/62 12/11/17 16:15 111 106/71 12/11/17 16:00 110 139/73 12/11/17 16:00 93 High Flow Oxygen 3.0 100 12/11/17 16:00 36.8 110 18 139/73 (95) 92 High Flow Oxygen 50.0 100 12/11/17 15:45 108 88/49 12/11/17 15:30 106 122/51 12/11/17 15:15 76 88/50 12/11/17 15:00 86 168/101 12/11/17 14:45 79 137/69 12/11/17 14:34 36.8 81 115/45 (68) Physical Exam: General-aaox3, obese Eyes-no scleral icterus ENT-mmm Neck-supple Lungs-decreased at bases Heart-tachycardia Abdomen-bs+, pannus+ Extremities-+2 edema Neuro-nonfocal Current Inpatient Medications Medications (Trade) Dose Ordered Sig/Bruno Route Start Time Stop Time Status Last Admin Dose Admin Bumetanide (Bumex Tab) 2 mg BID17 PO 11/30/17 09:00 12/30/17 08:59 Future Hold Acetaminophen (Tylenol Tab) 650 mg Q4H PRN PO 11/29/17 18:30 12/29/17 18:29 Al Hydrox/Mg Hydrox/Simethicone (Maalox Max Susp) 15 ml Q4H PRN PO 11/29/17 18:30 12/29/17 18:29 Magnesium Hydroxide (Milk Of Magnesia Susp) 30 ml Q6H PRN PO 11/29/17 18:30 12/29/17 18:29 Polyethylene (Miralax Powder Packet) 17 gm DAILY PRN PO 11/29/17 18:30 12/29/17 18:29 Ondansetron HCl (Zofran Inj) 4 mg Q6H PRN IV 4/13/18 18:30 12/29/17 18:29 12/12/17 13:22 4 MG Insulin Aspart (novoLOG ASPART) SLIDING SCALE G... ACHS SC 11/29/17 21:00 12/29/17 20:59 12/10/17 14:21 3 UNITS Clotrimazole (Lotrimin 1% Crm) 1 appln Q12 PRN EXT 11/29/17 18:30 12/29/17 18:29 Ergocalciferol (Vitamin D Cap) 50,000 interunit Fr@0900 PO 12/06/17 09:00 01/05/18 08:59 12/06/17 09:00 50,000 INTERUNIT Heparin Sodium (Porcine) (Heparin 10 Unit/ ml 5 ml Flush) 5 ml BID FLUSH 11/29/17 20:00 12/29/17 20:59 12/11/17 21:55 5 ML Albuterol/ Ipratropium (Duoneb) 3 ml Q4H PRN INH 11/29/17 18:30 12/29/17 18:29 12/03/17 10:25 3 ML Albuterol/ Ipratropium (Duoneb) 3 ml Q6R INH 11/29/17 21:00 12/29/17 20:59 12/12/17 07:47 3 ML Spironolactone (Aldactone Tab) 25 mg DAILY PO 11/30/17 08:00 12/30/17 08:59 Future Hold 12/06/17 09:00 25 MG Bisacodyl (Dulcolax Supp) 10 mg DAILY PRN [place] 11/29/17 18:30 12/29/17 18:29 Buspirone HCl (Buspar Tab) 5 mg Q12 PRN PO 11/29/17 18:30 12/29/17 18:29 Miscellaneous (Iv Fluids Completed) 1 ea PRN PRN N/A 11/29/17 19:15 11/29/18 19:14 Miconazole Nitrate (Desenex Powder) 1 appln UD PRN EXT 11/30/17 19:00 12/30/17 18:59 Oxycodone HCl (Roxicodone Immediate Rel Tab) 10 mg Q4H PRN PO 12/01/17 11:15 12/13/17 18:29 12/11/17 21:56 10 MG Heparin Sodium (Porcine) (Heparin 10 Unit/ ml 5 ml Flush) 5 ml PRN PRN FLUSH 12/02/17 15:45 01/01/18 15:44 12/09/17 08:30 5 ML Metolazone (Zaroxolyn Tab) 5 mg Q24H PO 12/03/17 13:30 01/02/18 13:29 Future Hold 12/06/17 13:39 5 MG Insulin Glargine (Lantus Solostar Pen) 12 units QAM SQ 12/05/17 08:00 12/30/17 08:59 12/12/17 08:15 12 UNITS Artificial Tears (Artificial Tears) 2 drops Q3H PRN OP 12/04/17 11:15 01/03/18 11:14 Diphenhydramine HCl (Benadryl Cap) 25 mg Q4H PRN PO 12/04/17 19:00 01/03/18 18:59 12/04/17 20:35 25 MG Metoprolol Tartrate (Lopressor Tab) 12.5 mg BID PO 12/06/17 20:00 01/04/18 19:59 Future Hold Bumetanide 2 mg/ Syringe 8 ml @ 4 mls/min TID IV 12/06/17 14:00 01/05/18 13:59 Future Hold 12/06/17 13:20 4 MLS/MIN Artificial Tears (Lacri-Lube Oph Oint) 1 appln BID OP 12/07/17 20:00 01/06/18 19:59 Naphazoline HCl/ Pheniramine Maleate (Visine-A Oph Soln) 2 drops TID OP 12/08/17 14:00 01/07/18 13:59 12/10/17 14:24 2 DROPS Fexofenadine HCl (Tanesha Tab) 180 mg QAM PO 12/09/17 08:00 01/08/18 07:59 Heparin Sodium (Porcine) 7500 unit/Syringe 0.75 ml @ 0 mls/sec Q8 SC 12/12/17 14:00 01/11/18 13:59 Last 24 Hours Test 12/11/17 16:36 4/26/18 04:17 12/12/17 08:39 12/12/17 09:59 Bedside Glucose 155 mg/dl White Blood Count 13.22 K/uL Red Blood Count 3.69 M/uL Hemoglobin 9.9 g/dL Hematocrit 32.0 % Mean Corpuscular Volume 86.7 fL Mean Corpuscular Hemoglobin 26.8 pg Mean Corpuscular Hemoglobin Concent 30.9 g/dl RDW Standard Deviation 64.1 fL RDW Coefficient of Variation 20.0 % Platelet Count 165 K/uL Mean Platelet Volume 9.3 fL Sodium Level 129 mmol/L Potassium Level 5.6 mmol/L Chloride Level 94 mmol/L Carbon Dioxide Level 26 mmol/L Anion Gap 9.0 mmol/L Blood Urea Nitrogen 88 mg/dl Creatinine 4.39 mg/dl Est Creatinine Clear Calc Drug Dose 19.7 ml/min Estimated GFR () 11.9 Estimated GFR (Non- 10.3 BUN/Creatinine Ratio 20.0 Random Glucose 187 mg/dl Calcium Level 7.2 mg/dl Phosphorus Level 9.2 mg/dl Magnesium Level 2.0 mg/dl Venous Blood pH 7.21 7.19 Venous Blood Partial Pressure CO2 63 mmHg 66 mmHg Venous Blood Partial Pressure O2 33 mmHg 38 mmHg Venous Blood HCO3 24 mmol/L 25 mmol/L Venous Blood Oxygen Saturation < 60.0 % < 60.0 % Venous Blood Base Excess -4.3 mEq/L -4.0 mEq/L Assessment & Plan [id number]-now on dialysis and planning on daily dialysis with appropriate fluid removal. so far tolerating fluid removal and bp is stable. continue aggressive fluid removal through dialysis and greatly appreciate critical care help hyperkalemia-on a 2k bath which should help improve the potassium. hyponatremia-should improve with appropriate fluid removal. RONALD-phos levels are high and to give phoslo 2 with meals to help control the phosphate levels.
--- NOTE | 2017-12-12 14:57 | Critical Care Progress Note ---
Critical Care Progress Note Date of Service Dec 12, 2017. Attending Dr. Chau Subjective I came into examine the patient early this morning. I believe this is the first time I have met this patient. I asked the patient how she is doing. She said, "How do I get rid of this fluid?" I completed my physical exam and then noted that this would best be done via dialysis and continued use of her BiPAP. Patient immediately disagreed with this. I asked the patient what she would suggest would help with her overall medical status. She then proceeded to tell me that I was not her doctor and to "get out". I informed her I am the resident helping care for her in the ICU. She then repeatedly stated either "get out" or "get the fuck out now". At that point our interaction ended. No further subjective information was obtained. Objective General Appearance: Awake, alert & oriented, appears in mild respiratory distress due to tachypnea, and is uncooperative on history and physical. Mouth: Dry oral mucous membranes. CV: +S1S2 RRR, no murmur. Pulm: Mild tachypnea. Habitus makes accessory muscle use assessment difficult. Decreased breath sounds throughout, basal crackles, wheezing. Abdomen: +BS, soft, non-tender, but distended. Obese habitus. Extremities: No pedal edema or calf tenderness. Moving all extremities naturally and easily. Neuro: Bilateral upper extremity mild resting tremor. Skin: Stasis changes to bilateral legs with related dressings. Assessment & Plan 57-year-old female admitted on [id number] for increased cough and dyspnea on exertion. PMH: Chronic diastolic heart failure, pulmonary hypertension, ROHAN on BiPAP, poorly controlled DM 2, CKD stage IV, stage III sacral decubitus ulcer, venous stasis ulcers, chronic right heel and right Achilles wounds, chronic hypoxic and hypercapnic respiratory failure, gout, COPD, morbid obesity. PSH: IVC filter, , left hip fracture ORIF, multiple dbridements and various lower extremity wounds, multiple PICC lines. 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 Patient is awake, alert, oriented, and appears to have the capacity to make medical decisions for herself. History of chronic pain. Difficult to assess her pain since patient does not politely engage. On Roxicodone. Pulm: PMH chronic respiratory failure likely related to COPD, obesity hypoventilation syndrome, and chronic heart failure. On this admission has notable hypoxic & hypercapnic respiratory failure. 17Apr CT chest without contrast noted left axillary and mediastinal adenopathy that was stable to slightly improved. She periodically has refused BiPAP, however has agreed to it today. SpO2 has been in the 70s-80s. pCXR suggestive of cardiomegaly and trace pleural effusions with atelectasis. VBG (pt had refused ABG) after one hour on BiPAP this morning was 7.19 / 66 / 25. Has periodically accepted DuoNeb 's. - Encouraged further BiPAP use. CVS: Acute on chronic diastolic congestive heart failure. History of pulmonary hypertension. 24Apr right heart cath is notable for elevated intracardiac filling pressures, severe pulmonary hypertension, and preserved cardiac output. - Holding Bumex and Aldactone. ID: Chronic venous stasis with lower extremity wounds. Here afebrile, WBC up to 13. See "skin" below. No other suspected acute infectious issues. - Note multiple antibiotic allergies. Endo: History of poorly controlled diabetes. Patient accepted her Lantus but refused multiple doses of sliding scale NovoLog. Monitoring and suggested she accept insulin as needed. Renal/Lytes: H CKD stage IV. Cr rise from 2.03 to 4.62. Presently in [facility] with ATN. Anuric with azotemia. Lerner cath in place, which will remain due to chronic hygiene issues. Nephrology on board, please see their notes. 25Apr placed right internal jugular temporary dialysis catheter and went for dialysis yesterday. Plan for further dialysis today. - Hyponatremia: Na 129. Should improve with dialysis. Monitoring. - Hyperkalemia: Max K 5.9. 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 Patient has refused Kayexalate. Should improve with dialysis. Monitoring. - Hyperphosphatemia: Phos 9.2 Could consider phosphate binder, but will defer recommendation to nephrology. GI: BMI 51. Low sodium diet, DM 2 diet, renal diet, and will fluid restrict to [address] a/p suggestive of cirrhotic changes. Perhaps due to mass or volume overload. Heme: Hb stable around 10. Platelets 165. No known acute hematological issues. DVT prophy: Heparin 5000 units every 8 hours. Patient has refused the last five doses. Patient has IVC filter in place based on CT a/p in October 2018. Skin: Chronic sacral and foot ulcers. Has previously allowed wound care to manage these areas, however patient refused the same today. Patient has refused similar care by ICU staff. Therefore she is likely lying in her own feces, increasing infection risk. - Presently deferring all wound care to the wound care team. Lines: Right IJ temporary dialysis catheter. Right arm PICC. Code status: Unclear, thus full code for now. PT/OT: See related notes. Disposition: ICU care. Resident of [facility]. Care plan: Reviewed patient's "patient centered plan of care" signed on 02 December 2017. She is currently not compliant with the same, with noted direct violations. Will continue to attempt to reengage to provide her the best medical care possible that she will accept. Resident Physician Supervision Note: Dr. Bennett was resident physician during care of patient. I separately evaluated patient and did history and exam. I discussed the case with the resident and generally agree with the findings and plan. Staff continues to attempt to re-engage the patient. Patient appears to be at chronic baseline, however, dialysis is new therapeutic intervention. Continued ICU observation secondary to hypercarbic respiratory failure and hypotension associated with hemodialysis. I have personally spent 30 minutes of critical care time in the direct management of this patient. This is a life/limb threatening event. This includes time spent evaluating patient, direct bedside care, chart review, placing orders, interpretation of diagnostic studies, discussion with consultants, patient, and/or family members regarding treatment decisions, as well as other required patient management activities. This time is exclusive of all separately billable procedures, and teaching time and separate from and in addition to any other critical care service time. Documented By: Ronnie Chau DO Consults & Procedures Consultants: Nephrology, cardiology. Procedures: See cardiac cath report. Data Medications: Current Inpatient Medications Medications (Trade) Dose Ordered Sig/Bruno Route Start Time Stop Time Status Last Admin Dose Admin Bumetanide (Bumex Tab) 2 mg BID17 PO 11/30/17 09:00 12/30/17 08:59 Future Hold Acetaminophen (Tylenol Tab) 650 mg Q4H PRN PO 11/29/17 18:30 12/29/17 18:29 Al Hydrox/Mg Hydrox/Simethicone (Maalox Max Susp) 15 ml Q4H PRN PO 11/29/17 18:30 12/29/17 18:29 Magnesium Hydroxide (Milk Of Magnesia Susp) 30 ml Q6H PRN PO 11/29/17 18:30 12/29/17 18:29 Polyethylene (Miralax Powder Packet) 17 gm DAILY PRN PO 11/29/17 18:30 12/29/17 18:29 Ondansetron HCl (Zofran Inj) 4 mg Q6H PRN IV 11/29/17 18:30 12/29/17 18:29 12/12/17 13:22 4 MG Insulin Aspart (novoLOG ASPART) SLIDING SCALE G... ACHS SC 11/29/17 21:00 12/29/17 20:59 12/10/17 14:21 3 UNITS Clotrimazole (Lotrimin 1% Crm) 1 appln Q12 PRN EXT 11/29/17 18:30 12/29/17 18:29 Ergocalciferol (Vitamin D Cap) 50,000 interunit Fr@0900 PO 12/06/17 09:00 01/05/18 08:59 12/06/17 09:00 50,000 INTERUNIT Heparin Sodium (Porcine) (Heparin 10 Unit/ ml 5 ml Flush) 5 ml BID FLUSH 11/29/17 20:00 12/29/17 20:59 12/11/17 21:55 5 ML Albuterol/ Ipratropium (Duoneb) 3 ml Q4H PRN INH 11/29/17 18:30 12/29/17 18:29 12/03/17 10:25 3 ML Albuterol/ Ipratropium (Duoneb) 3 ml Q6R INH 11/29/17 21:00 12/29/17 20:59 12/12/17 14:31 3 ML Spironolactone (Aldactone Tab) 25 mg DAILY PO 11/30/17 08:00 12/30/17 08:59 Future Hold 12/06/17 09:00 25 MG Bisacodyl (Dulcolax Supp) 10 mg DAILY PRN [place] 11/29/17 18:30 12/29/17 18:29 Buspirone HCl (Buspar Tab) 5 mg Q12 PRN PO 11/29/17 18:30 12/29/17 18:29 Miscellaneous (Iv Fluids Completed) 1 ea PRN PRN N/A 11/29/17 19:15 11/29/18 19:14 Miconazole Nitrate (Desenex Powder) 1 appln UD PRN EXT 11/30/17 19:00 12/30/17 18:59 Oxycodone HCl (Roxicodone Immediate Rel Tab) 10 mg Q4H PRN PO 12/01/17 11:15 12/13/17 18:29 12/11/17 21:56 10 MG Heparin Sodium (Porcine) (Heparin 10 Unit/ ml 5 ml Flush) 5 ml PRN PRN FLUSH 12/02/17 15:45 01/01/18 15:44 12/09/17 08:30 5 ML Metolazone (Zaroxolyn Tab) 5 mg Q24H PO 12/03/17 13:30 01/02/18 13:29 Future Hold 12/06/17 13:39 5 MG Insulin Glargine (Lantus Solostar Pen) 12 units QAM SQ 12/05/17 08:00 12/30/17 08:59 12/12/17 08:15 12 UNITS Artificial Tears (Artificial Tears) 2 drops Q3H PRN OP 12/04/17 11:15 01/03/18 11:14 Diphenhydramine HCl (Benadryl Cap) 25 mg Q4H PRN PO 12/04/17 19:00 01/03/18 18:59 12/04/17 20:35 25 MG Metoprolol Tartrate (Lopressor Tab) 12.5 mg BID PO 12/06/17 20:00 01/04/18 19:59 Future Hold Bumetanide 2 mg/ Syringe 8 ml @ 4 mls/min TID IV 12/06/17 14:00 01/05/18 13:59 Future Hold 12/06/17 13:20 4 MLS/MIN Artificial Tears (Lacri-Lube Oph Oint) 1 appln BID OP 12/07/17 20:00 01/06/18 19:59 Naphazoline HCl/ Pheniramine Maleate (Visine-A Oph Soln) 2 drops TID OP 12/08/17 14:00 01/07/18 13:59 12/10/17 14:24 2 DROPS Fexofenadine HCl (Tanesha Tab) 180 mg QAM PO 12/09/17 08:00 01/08/18 07:59 Heparin Sodium (Porcine) 7500 unit/Syringe 0.75 ml @ 0 mls/sec Q8 SC 12/12/17 14:00 01/11/18 13:59 Calcium Acetate (Phoslo Cap) 1,334 mg TIDM PO 12/12/17 16:30 01/11/18 16:29 I & O: 24-Hour Column 12/13/17 08:00 Intake Total 240 ml Output Total 15 ml Balance 225 ml Vital Signs: Date Time Temp Pulse Resp B/P (MAP) Pulse Ox O2 Delivery O2 Flow Rate FiO2 12/12/17 14:39 107 23 88 Nasal Cannula 55.0 100 12/12/17 13:30 97 111/57 12/12/17 13:15 109 101/41 12/12/17 13:00 107 104/66 12/12/17 12:45 102 101/40 12/12/17 12:30 101 102/49 12/12/17 12:15 104 95/48 12/12/17 12:00 104 103/49 12/12/17 12:00 103 20 136/63 (87) 81 BiPAP 15.0 12/12/17 12:00 81 BiPAP 15.0 12/12/17 11:45 108 97/62 12/12/17 11:37 102 82 15.0 12/12/17 11:30 103 103/56 12/12/17 11:15 102 89/73 12/12/17 11:00 103 136/63 12/12/17 10:50 92 120/59 12/12/17 10:41 36.5 84 122/51 (74) 12/12/17 10:00 87 20 75 BiPAP 15.0 12/12/17 08:29 85 74 15.0 12/12/17 08:00 36.8 79 22 75 BiPAP 15.0 12/12/17 08:00 75 BiPAP 15.0 12/12/17 08:00 High Flow Oxygen 100 12/12/17 07:50 81 24 76 Nasal Cannula 55.0 100 12/12/17 04:00 92 23 90 12/12/17 04:00 84 High Flow Oxygen 55.0 100 12/12/17 02:17 87 22 88 Nasal Cannula 55.0 95 12/12/17 02:00 95 22 84 12/12/17 00:00 90 21 89 12/11/17 23:59 90 High Flow Oxygen 55.0 100 12/11/17 23:00 36.8 92 24 90 12/11/17 22:00 82 23 88 12/11/17 21:00 89 31 85 High Flow Oxygen 55.0 100 12/11/17 20:24 29 123/86 (98) 84 12/11/17 20:00 90 High Flow Oxygen 50.0 100 12/11/17 19:29 36.9 90 27 87/69 (75) 89 12/11/17 18:00 100 18 136/116 (123) 90 High Flow Oxygen 50.0 100 12/11/17 16:45 36.8 108 110/45 (66) 12/11/17 16:30 96 111/62 12/11/17 16:15 111 106/71 12/11/17 16:00 110 139/73 12/11/17 16:00 93 High Flow Oxygen 3.0 100 12/11/17 16:00 36.8 110 18 139/73 (95) 92 High Flow Oxygen 50.0 100 12/11/17 15:45 108 88/49 12/11/17 15:30 106 122/51 12/11/17 15:15 76 88/50 12/11/17 15:00 86 168/101 Laboratory Results: Last 24 Hours Test 12/11/17 16:36 12/12/17 04:17 12/12/17 08:39 12/12/17 09:59 Bedside Glucose 155 mg/dl White Blood Count 13.22 K/uL Red Blood Count 3.69 M/uL Hemoglobin 9.9 g/dL Hematocrit 32.0 % Mean Corpuscular Volume 86.7 fL Mean Corpuscular Hemoglobin 26.8 pg Mean Corpuscular Hemoglobin Concent 30.9 g/dl RDW Standard Deviation 64.1 fL RDW Coefficient of Variation 20.0 % Platelet Count 165 K/uL Mean Platelet Volume 9.3 fL Sodium Level 129 mmol/L Potassium Level 5.6 mmol/L Chloride Level 94 mmol/L Carbon Dioxide Level 26 mmol/L Anion Gap 9.0 mmol/L Blood Urea Nitrogen 88 mg/dl Creatinine 4.39 mg/dl Est Creatinine Clear Calc Drug Dose 19.7 ml/min Estimated GFR () 11.9 Estimated GFR (Non- 10.3 BUN/Creatinine Ratio 20.0 Random Glucose 187 mg/dl Calcium Level 7.2 mg/dl Phosphorus Level 9.2 mg/dl Magnesium Level 2.0 mg/dl Venous Blood pH 7.21 7.19 Venous Blood Partial Pressure CO2 63 mmHg 66 mmHg Venous Blood Partial Pressure O2 33 mmHg 38 mmHg Venous Blood HCO3 24 mmol/L 25 mmol/L Venous Blood Oxygen Saturation < 60.0 % < 60.0 % Venous Blood Base Excess -4.3 mEq/L -4.0 mEq/L Resident Tracking Resident Involvement: Resident Care Provided Care Provided: Adult Hospital Medicine (ICU)
[2017-12-12] MEDS: CALCIUM ACETATE 667MG GELCAP PO SCH (17:31)
[2017-12-13] VITALS (25 sets, daily range): BP systolic 82–193; BP diastolic 59–164; PULSE 98–113; TEMP 36.1–37; O2SAT 75–94
--- NOTE | 2017-12-13 00:10 | Progress Note ---
Subjective Date of Service: Dec 12, 2017. Subjective Pt evaluation today including: conversation w/ patient, physical exam, chart review, lab review, review of studies (cxr), conversation w/ software developer consultant ( critical care), review of inpatient medication list Pain: generalized discomfort, feeling cold PO Intake: poor Voiding: rodriguez catheter in place (scant UOP) tele with sinus tach severe hypoxia remains with high flow NC at max settings she is confused throughout the visit, stating several times how cold she is and quickly nodding off she has tremors/myoclonic jerks throughout the visit she was only able to tell me that her son, Brown, is "coming next week" I was unable to obtain a more thorough review of systems due to her altered mental status Problem List Medical Problems: (1) Acute renal disease Status: Acute (2) Acute renal failure Status: Acute (3) ELIZABETH (acute kidney injury) Status: Acute (4) ELIZABETH (acute kidney injury) Status: Acute (5) Anemia Status: Acute (6) Cellulitis Status: Acute (7) Cellulitis of both lower extremities Status: Acute (8) CHF (congestive heart failure) Status: Acute (9) CHF (congestive heart failure) Status: Acute (10) Dehydration Status: Acute (11) Fluid overload Status: Acute (12) Hypoxia Status: Acute (13) Pickwickian syndrome Status: Acute (14) Pneumonia Status: Acute (15) Respiratory failure Status: Acute (16) Sacral decubitus ulcer, stage III Status: Acute (17) UTI (urinary tract infection) Status: Acute (18) UTI (urinary tract infection) due to urinary indwelling Rodriguez catheter Status: Acute Objective Vital Signs Date Time Temp Pulse Resp B/P (MAP) Pulse Ox O2 Delivery O2 Flow Rate FiO2 12/12/17 22:27 105 82 15.0 12/12/17 21:30 99 22 76 12/12/17 21:00 99 28 74 12/12/17 20:30 99 22 79 12/12/17 20:19 102 27 108/55 (72) 83 12/12/17 20:00 BiPAP 15.0 12/12/17 20:00 97 25 80 12/12/17 20:00 36.6 99 22 108/55 (72) 79 BiPAP 15.0 12/12/17 19:58 98 85 15.0 12/12/17 19:30 100 23 77 12/12/17 19:00 104 24 77 12/12/17 18:49 104 17 134/113 (120) 78 12/12/17 18:30 99 24 84 12/12/17 18:00 103 13 81 12/12/17 17:30 103 20 82 12/12/17 17:00 105 30 79 12/12/17 16:30 100 20 82 12/12/17 16:01 104 29 105/63 (77) 81 12/12/17 16:00 High Flow Oxygen 55.0 100 Nasal Cannula 12/12/17 16:00 36.6 106 24 99/62 (74) 83 High Flow Oxygen 55.0 100 Nasal Cannula 12/12/17 16:00 102 31 81 12/12/17 15:51 106 26 95/62 (73) 84 12/12/17 15:30 101 25 87 12/12/17 15:00 106 16 84 12/12/17 14:39 107 23 88 Nasal Cannula 55.0 100 12/12/17 14:05 36.0 108 104/59 (74) 12/12/17 13:45 106 108/54 12/12/17 13:30 97 111/57 12/12/17 13:15 109 101/41 12/12/17 13:00 107 104/66 12/12/17 12:45 102 101/40 12/12/17 12:30 101 102/49 12/12/17 12:15 104 95/48 12/12/17 12:00 104 103/49 12/12/17 12:00 103 20 136/63 (87) 81 BiPAP 15.0 12/12/17 12:00 81 BiPAP 15.0 12/12/17 11:45 108 97/62 12/12/17 11:37 102 82 15.0 12/12/17 11:30 103 103/56 12/12/17 11:15 102 89/73 12/12/17 11:00 103 136/63 12/12/17 10:50 92 120/59 12/12/17 10:41 36.5 84 122/51 (74) 12/12/17 10:00 87 20 75 BiPAP 15.0 12/12/17 08:29 85 74 15.0 12/12/17 08:00 36.8 79 22 75 BiPAP 15.0 12/12/17 08:00 75 BiPAP 15.0 12/12/17 08:00 High Flow Oxygen 100 12/12/17 07:50 81 24 76 Nasal Cannula 55.0 100 12/12/17 04:00 92 23 90 12/12/17 04:00 84 High Flow Oxygen 55.0 100 12/12/17 02:17 87 22 88 Nasal Cannula 55.0 95 12/12/17 02:00 95 22 84 12/12/17 00:00 90 21 89 12/11/17 23:59 90 High Flow Oxygen 55.0 100 Physical Exam General Appearance: + moderate distress (tachypneic ), + pertinent finding ( looks very ill and looks much older than stated age, confused, sleepy) ENT: + pertinent finding (MM dry ) Neck: + pertinent finding (difficult to assess for JVD due to neck size; dialysis catheter in place on right) Respiratory/Chest: + respiratory distress, + decreased breath sounds (bases), + pertinent finding (course BS b/l with crackles) Cardiovascular: no gallop, + tachycardia Abdomen: + distended (marked and worse than previous exams; NT; BS+ but very difficult to hear) Extremities: + swelling (severe anasarca of all limbs) Neurologic/Psychiatric: + disoriented, + pertinent finding (sleepy, confused ) Skin: + cyanosis (lips, oral cavity ), + pertinent finding (PICC line RUE clean ) Laboratory Results Last 24 Hours Test 12/12/17 04:17 12/12/17 08:39 12/12/17 09:59 12/12/17 10:47 White Blood Count 13.22 K/uL Red Blood Count 3.69 M/uL Hemoglobin 9.9 g/dL Hematocrit 32.0 % Mean Corpuscular Volume 86.7 fL Mean Corpuscular Hemoglobin 26.8 pg Mean Corpuscular Hemoglobin Concent 30.9 g/dl RDW Standard Deviation 64.1 fL RDW Coefficient of Variation 20.0 % Platelet Count 165 K/uL Mean Platelet Volume 9.3 fL Sodium Level 129 mmol/L Potassium Level 5.6 mmol/L Chloride Level 94 mmol/L Carbon Dioxide Level 26 mmol/L Anion Gap 9.0 mmol/L Blood Urea Nitrogen 88 mg/dl Creatinine 4.39 mg/dl Est Creatinine Clear Calc Drug Dose 19.7 ml/min Estimated GFR () 11.9 Estimated GFR (Non- 10.3 BUN/Creatinine Ratio 20.0 Random Glucose 187 mg/dl Calcium Level 7.2 mg/dl Phosphorus Level 9.2 mg/dl Magnesium Level 2.0 mg/dl Venous Blood pH 7.21 7.19 Venous Blood Partial Pressure CO2 63 mmHg 66 mmHg Venous Blood Partial Pressure O2 33 mmHg 38 mmHg Venous Blood HCO3 24 mmol/L 25 mmol/L Venous Blood Oxygen Saturation < 60.0 % < 60.0 % Venous Blood Base Excess -4.3 mEq/L -4.0 mEq/L Bedside Glucose 191 mg/dl Test 12/12/17 15:46 12/12/17 20:15 Bedside Glucose 175 mg/dl 178 mg/dl Assessment and Plan 57yo female - 1. acute/chronic hypoxic respiratory failure - acute component due to acute/ chronic CHF and volume overload from acute renal failure. No improvement. Remains on max settings of High-Flow NC. Has previously refused BIPAP. I am concerned that intubation is imminent given her status. She is a full code based on a prior POLST form from earlier this year. 2. acute/chronic systolic/diastolic CHF along with severe acute/chronic right- sided heart failure (cor pulmonale)- attempts at medical management with diuretics unsuccessful. She then developed acute renal failure with anuria. s/p hemodialysis yesterday & today per Dr. Nava. Remains critically ill. 3. severe pulmonary HTN - presumed 2nd to long-standing, untreated ROHAN and/or VTE. 4. ROHAN - refusing BIPAP. 5. COPD - continue nebs. 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 Nava. 7. DVT proph - has IVC filter in place; heparin 5000 BID. 8. chronic rodriguez catheter usage - exchange monthly. Has asymptomatic bacteriuria on recent urine cx. 9. morbid obesity with BMI 51 10. sacral decubitus ulcer, stage 3 - defer to wound care. She had been refusing regular nursing care of this problem (refusing dressing changes, etc). 11. b/l foot/heel/achilles ulcers - managed by wound care. 12. ?cirrhosis - CT abd/pelvis in October 2017 showed cirrhotic changes. Suspect this would be from ALFREDO or could be "cardiac" cirrhosis from cor pulmonale. Certainly cirrhosis could be playing a role in her volume overload state and altered mental status (hepatic encephalopathy). 13. T2DM - control adequate. 14. acute kidney injury/acute renal failure in setting of CKD stage 3-4 - appreciate nephrology assistance, s/p HD yesterday and today; daily sessions planned to remove her massive fluid overload. 15. metabolic encephalopathy - suspect combination of hypercarbia, hypoxia, uremia and hyperammonemia all playing roles. Last ammonia level was in the 70s; suspect it is higher. Repeat ammonia in am but would empirically start rifaximin BID in the AM. spoke with son, Brown, by phone on 12/10/17; extensive update given on her worsening volume status, renal status, and her cardiac issues; told him HD was imminent at that time left message for Brown on his voicemail on 12/11/17 informing him that HD was indeed started patient has stated that her son is likely traveling from [place] this weekend or early next week to [place] remains critically ill any worsening strongly consider palliative care Continued [facility] stay due to: abnormal vital signs, inadequate po fluid intake, inadequate oral pain control, voiding difficulties, ambulation difficulties, multiple IV medications needed, home environment unsafe for pt, other (ARF now on HD) Discharge planning: uncertain
[2017-12-13] MEDS: ALBUT/IPRATROP 3MG/0.5MG NEB 3 ML VIAL INH SCH ×4 (02:32→18:47)
[2017-12-13 04:55] LABS: HEMATOCRIT 31.5 % (37-47); HEMOGLOBIN 9.9 g/dL (12.0-16.0); MEAN CELL VOLUME 86.3 fL (80-100); MEAN CORPUSCULAR HEMOGLOBIN 27.1 pg (25-34); MEAN CORPUSCULAR HGB CONC 31.4 g/dl (32-36); PLATELET COUNT 149 K/uL (130-400); RED CELL DISTRIBUTION WIDTH CV 19.7 % (11.5-14.5); RED CELL DISTRIBUTION WIDTH SD 62.7 fL (36.4-46.3); WHITE BLOOD COUNT 12.53 K/uL (4.8-10.8)
[2017-12-13 05:15] LABS: CALCIUM 7.3 mg/dl (8.5-10.1); CREATININE 4.03 mg/dl (0.60-1.20); POTASSIUM 5.1 mmol/L (3.5-5.1)
[2017-12-13 05:16] LABS: PHOSPHORUS 8.6 mg/dl (2.5-4.9)
[2017-12-13] MEDS: HEPARIN SQ 5000 UNIT/0.5ML 7,500 UNIT in SYRINGE 0 ML SC SCH ×3 (05:21→20:05)
[2017-12-13] MEDS: INSULIN ASPART 100 UNITS/ML 3 ML PEN SC SCH ×4 (08:00→20:05)
[2017-12-13] MEDS: CALCIUM ACETATE 667MG GELCAP PO SCH ×3 (08:01→16:30)
--- NOTE | 2017-12-13 08:41 | Nephrology Progress Note ---
Nephrology Progress Note Date of Service: Dec 13, 2017. Subjective 57 yo female with obesity, volume overload, significant right sided heart failure, +decubitus ulcer now on dialysis and had two treatments so far. tolerating fluid removal. pt with worsening anxiety this morning and debating about whether she wants to continue to do this. Objective Date Time Temp Pulse Resp B/P (MAP) Pulse Ox O2 Delivery O2 Flow Rate FiO2 12/13/17 08:00 36.6 102 13 103/66 (78) 76 BiPAP 12/13/17 06:00 102 13 92/75 (81) 81 BiPAP 12/13/17 04:01 36.4 98 13 103/60 (74) 76 BiPAP 12/13/17 04:00 98 17 75 12/13/17 04:00 77 BiPAP 12/13/17 02:00 102 20 122/73 (89) 83 BiPAP 12/12/17 23:59 87 BiPAP 12/12/17 23:59 36.4 105 31 87 BiPAP 12/12/17 22:27 105 82 15.0 12/12/17 21:30 99 22 76 12/12/17 21:00 99 28 74 12/12/17 20:30 99 22 79 12/12/17 20:19 102 27 108/55 (72) 83 12/12/17 20:00 BiPAP 15.0 12/12/17 20:00 97 25 80 12/12/17 20:00 36.6 99 22 108/55 (72) 79 BiPAP 15.0 12/12/17 19:58 98 85 15.0 12/12/17 19:30 100 23 77 12/12/17 19:00 104 24 77 12/12/17 18:49 104 17 134/113 (120) 78 12/12/17 18:30 99 24 84 12/12/17 18:00 103 13 81 12/12/17 17:30 103 20 82 12/12/17 17:00 105 30 79 12/12/17 16:30 100 20 82 12/12/17 16:01 104 29 105/63 (77) 81 12/12/17 16:00 High Flow Oxygen 55.0 100 Nasal Cannula 12/12/17 16:00 36.6 106 24 99/62 (74) 83 High Flow Oxygen 55.0 100 Nasal Cannula 12/12/17 16:00 102 31 81 12/12/17 15:51 106 26 95/62 (73) 84 12/12/17 15:30 101 25 87 12/12/17 15:00 106 16 84 12/12/17 14:39 107 23 88 Nasal Cannula 55.0 100 12/12/17 14:05 36.0 108 104/59 (74) 12/12/17 13:45 106 108/54 12/12/17 13:30 97 111/57 12/12/17 13:15 109 101/41 12/12/17 13:00 107 104/66 12/12/17 12:45 102 101/40 12/12/17 12:30 101 102/49 12/12/17 12:15 104 95/48 12/12/17 12:00 104 103/49 12/12/17 12:00 103 20 136/63 (87) 81 BiPAP 15.0 12/12/17 12:00 81 BiPAP 15.0 12/12/17 11:45 108 97/62 12/12/17 11:37 102 82 15.0 12/12/17 11:30 103 103/56 12/12/17 11:15 102 89/73 12/12/17 11:00 103 136/63 12/12/17 10:50 92 120/59 12/12/17 10:41 36.5 84 122/51 (74) 12/12/17 10:00 87 20 75 BiPAP 15.0 12/12/17 08:29 85 74 15.0 Physical Exam: General-aaox3, obese Eyes-no scleral icterus ENT-mmm Neck-supple Lungs-minimal at bases Heart-tachy Abdomen-bs+, pannus+ Extremities-+2 edema Neuro-nonfocal Current Inpatient Medications Medications (Trade) Dose Ordered Sig/Bruno Route Start Time Stop Time Status Last Admin Dose Admin Bumetanide (Bumex Tab) 2 mg BID17 PO 11/30/17 09:00 12/30/17 08:59 Future Hold Acetaminophen (Tylenol Tab) 650 mg Q4H PRN PO 11/29/17 18:30 12/29/17 18:29 Al Hydrox/Mg Hydrox/Simethicone (Maalox Max Susp) 15 ml Q4H PRN PO 11/29/17 18:30 12/29/17 18:29 Magnesium Hydroxide (Milk Of Magnesia Susp) 30 ml Q6H PRN PO 11/29/17 18:30 12/29/17 18:29 Polyethylene (Miralax Powder Packet) 17 gm DAILY PRN PO 11/29/17 18:30 12/29/17 18:29 Ondansetron HCl (Zofran Inj) 4 mg Q6H PRN IV 11/29/17 18:30 12/29/17 18:29 12/12/17 13:22 4 MG Insulin Aspart (novoLOG ASPART) SLIDING SCALE G... ACHS SC 11/29/17 21:00 12/29/17 20:59 12/10/17 14:21 3 UNITS Clotrimazole (Lotrimin 1% Crm) 1 appln Q12 PRN EXT 11/29/17 18:30 12/29/17 18:29 Ergocalciferol (Vitamin D Cap) 50,000 interunit Fr@0900 PO 12/06/17 09:00 01/05/18 08:59 12/06/17 09:00 50,000 INTERUNIT Heparin Sodium (Porcine) (Heparin 10 Unit/ ml 5 ml Flush) 5 ml BID FLUSH 11/29/17 20:00 12/29/17 20:59 12/12/17 20:51 5 ML Albuterol/ Ipratropium (Duoneb) 3 ml Q4H PRN INH 11/29/17 18:30 12/29/17 18:29 12/03/17 10:25 3 ML Albuterol/ Ipratropium (Duoneb) 3 ml Q6R INH 11/29/17 21:00 12/29/17 20:59 12/12/17 14:31 3 ML Spironolactone (Aldactone Tab) 25 mg DAILY PO 11/30/17 08:00 12/30/17 08:59 Future Hold 12/06/17 09:00 25 MG Bisacodyl (Dulcolax Supp) 10 mg DAILY PRN MA 11/29/17 18:30 12/29/17 18:29 Buspirone HCl (Buspar Tab) 5 mg Q12 PRN PO 11/29/17 18:30 12/29/17 18:29 Miscellaneous (Iv Fluids Completed) 1 ea PRN PRN N/A 11/29/17 19:15 11/29/18 19:14 Miconazole Nitrate (Desenex Powder) 1 appln UD PRN EXT 11/30/17 19:00 12/30/17 18:59 Oxycodone HCl (Roxicodone Immediate Rel Tab) 10 mg Q4H PRN PO 12/01/17 11:15 12/13/17 18:29 12/11/17 21:56 10 MG Heparin Sodium (Porcine) (Heparin 10 Unit/ ml 5 ml Flush) 5 ml PRN PRN FLUSH 12/02/17 15:45 01/01/18 15:44 12/09/17 08:30 5 ML Metolazone (Zaroxolyn Tab) 5 mg Q24H PO 12/03/17 13:30 01/02/18 13:29 Future Hold 12/06/17 13:39 5 MG Insulin Glargine (Lantus Solostar Pen) 12 units QAM SQ 12/05/17 08:00 12/30/17 08:59 12/12/17 08:15 12 UNITS Artificial Tears (Artificial Tears) 2 drops Q3H PRN OP 12/04/17 11:15 01/03/18 11:14 Diphenhydramine HCl (Benadryl Cap) 25 mg Q4H PRN PO 12/04/17 19:00 01/03/18 18:59 12/12/17 22:09 25 MG Metoprolol Tartrate (Lopressor Tab) 12.5 mg BID PO 12/06/17 20:00 01/04/18 19:59 Future Hold Bumetanide 2 mg/ Syringe 8 ml @ 4 mls/min TID IV 12/06/17 14:00 01/05/18 13:59 Future Hold 12/06/17 13:20 4 MLS/MIN Artificial Tears (Lacri-Lube Oph Oint) 1 appln BID OP 12/07/17 20:00 01/06/18 19:59 Naphazoline HCl/ Pheniramine Maleate (Visine-A Oph Soln) 2 drops TID OP 12/08/17 14:00 01/07/18 13:59 12/10/17 14:24 2 DROPS Fexofenadine HCl (Tanesha Tab) 180 mg QAM PO 12/09/17 08:00 01/08/18 07:59 Heparin Sodium (Porcine) 7500 unit/Syringe 0.75 ml @ 0 mls/sec Q8 SC 12/12/17 14:00 01/11/18 13:59 Calcium Acetate (Phoslo Cap) 1,334 mg TIDM PO 12/12/17 16:30 01/11/18 16:29 12/12/17 17:31 1,334 MG Rifaximin (Xifaxan Tab) 550 mg BID PO 12/13/17 09:00 01/12/18 08:59 Last 24 Hours Test 12/12/17 08:39 12/12/17 09:59 12/12/17 10:47 12/12/17 15:46 Venous Blood pH 7.21 7.19 Venous Blood Partial Pressure CO2 63 mmHg 66 mmHg Venous Blood Partial Pressure O2 33 mmHg 38 mmHg Venous Blood HCO3 24 mmol/L 25 mmol/L Venous Blood Oxygen Saturation < 60.0 % < 60.0 % Venous Blood Base Excess -4.3 mEq/L -4.0 mEq/L Bedside Glucose 191 mg/dl 175 mg/dl Test 12/12/17 20:15 12/13/17 04:43 Bedside Glucose 178 mg/dl White Blood Count 12.53 K/uL Red Blood Count 3.65 M/uL Hemoglobin 9.9 g/dL Hematocrit 31.5 % Mean Corpuscular Volume 86.3 fL Mean Corpuscular Hemoglobin 27.1 pg Mean Corpuscular Hemoglobin Concent 31.4 g/dl RDW Standard Deviation 62.7 fL RDW Coefficient of Variation 19.7 % Platelet Count 149 K/uL Mean Platelet Volume 9.0 fL Sodium Level 131 mmol/L Potassium Level 5.1 mmol/L Chloride Level 95 mmol/L Carbon Dioxide Level 27 mmol/L Anion Gap 9.0 mmol/L Blood Urea Nitrogen 68 mg/dl Creatinine 4.03 mg/dl Est Creatinine Clear Calc Drug Dose 21.5 ml/min Estimated GFR () 13.2 Estimated GFR (Non- 11.4 BUN/Creatinine Ratio 16.9 Random Glucose 152 mg/dl Calcium Level 7.3 mg/dl Phosphorus Level 8.6 mg/dl Magnesium Level 2.0 mg/dl Ammonia 85.0 umol/L Assessment & Plan ELIZABETH-ATN-pt having a difficult time emotionally with the current situation. has been tolerating dialysis and removing 4 kilos per treatments. tentatively planned for dialysis today and tomorrow. pt though debating about whether to continue overall with the current treatment plan or not. hyperkalemia-on a 2k bath and k levels are improving. overall difficult situation with correction chronic comorbidities. was hoping to be able to remove fluid on dialysis to help with her pulmonary component. may be looking at hospice as a viable option and pt does have insight into her current situation and able to make that decision on her own.
[2017-12-13] MEDS: ARTIFICIAL TEARS OP OINT 3.5 GM TUBE OP SCH ×2 (09:00→20:05)
[2017-12-13] MEDS: FEXOFENADINE HCL 180 MG TAB PO SCH ×2 (09:32→09:49)
[2017-12-13] MEDS: NAPHAZOLIN/PHENIRAMIN OPH SOLN 75 DROPS/5 ML BTL OP SCH ×4 (09:33→20:05)
[2017-12-13] MEDS: RIFAXIMIN TAB 550 MG TAB PO SCH ×3 (09:33→20:05)
[2017-12-13] MEDS: ERGOCALCIFEROL 50,000 INTER.UNIT CAP PO SCH (09:34)
[2017-12-13] MEDS: INSULIN GLARGINE SOLOSTAR 100 UNITS/ML 3 ML PEN SQ SCH (09:36)
--- NOTE | 2017-12-13 10:20 | Hospitalist Progress Note ---
Hospitalist Progress Note Date of Service Dec 13, 2017. Subjective Pt evaluation today including: conversation w/ patient, conversation w/ risk consultant (Barn Boss) Patient currently receiving dialysis when I saw her. She is complaining that she feels like she is dying, does not know if she wants to keep doing this i.e. dialysis. Complains that it is not taking the fluid a fast enough. Demands that I take off her blood pressure cuff immediately. All Other Systems: Reviewed and Negative Objective Vital Signs Date Time Temp Pulse Resp B/P (MAP) Pulse Ox O2 Delivery O2 Flow Rate FiO2 12/13/17 10:00 105 112/71 12/13/17 09:45 110 111/88 12/13/17 09:30 107 114/77 12/13/17 09:15 104 158/137 12/13/17 09:00 104 12/13/17 08:50 36.6 107 193/164 (174) 12/13/17 08:00 36.6 102 13 103/66 (78) 76 BiPAP 12/13/17 06:00 102 13 92/75 (81) 81 BiPAP 12/13/17 04:01 36.4 98 13 103/60 (74) 76 BiPAP 12/13/17 04:00 98 17 75 12/13/17 04:00 77 BiPAP 12/13/17 02:00 102 20 122/73 (89) 83 BiPAP 12/12/17 23:59 87 BiPAP 12/12/17 23:59 36.4 105 31 87 BiPAP 12/12/17 22:27 105 82 15.0 12/12/17 21:30 99 22 76 12/12/17 21:00 99 28 74 12/12/17 20:30 99 22 79 12/12/17 20:19 102 27 108/55 (72) 83 12/12/17 20:00 BiPAP 15.0 12/12/17 20:00 97 25 80 12/12/17 20:00 36.6 99 22 108/55 (72) 79 BiPAP 15.0 12/12/17 19:58 98 85 15.0 12/12/17 19:30 100 23 77 12/12/17 19:00 104 24 77 12/12/17 18:49 104 17 134/113 (120) 78 12/12/17 18:30 99 24 84 12/12/17 18:00 103 13 81 12/12/17 17:30 103 20 82 12/12/17 17:00 105 30 79 12/12/17 16:30 100 20 82 12/12/17 16:01 104 29 105/63 (77) 81 12/12/17 16:00 High Flow Oxygen 55.0 100 Nasal Cannula 12/12/17 16:00 36.6 106 24 99/62 (74) 83 High Flow Oxygen 55.0 100 Nasal Cannula 12/12/17 16:00 102 31 81 12/12/17 15:51 106 26 95/62 (73) 84 12/12/17 15:30 101 25 87 12/12/17 15:00 106 16 84 12/12/17 14:39 107 23 88 Nasal Cannula 55.0 100 12/12/17 14:05 36.0 108 104/59 (74) 12/12/17 13:45 106 108/54 12/12/17 13:30 97 111/57 12/12/17 13:15 109 101/41 12/12/17 13:00 107 104/66 12/12/17 12:45 102 101/40 12/12/17 12:30 101 102/49 12/12/17 12:15 104 95/48 12/12/17 12:00 104 103/49 12/12/17 12:00 103 20 136/63 (87) 81 BiPAP 15.0 12/12/17 12:00 81 BiPAP 15.0 12/12/17 11:45 108 97/62 12/12/17 11:37 102 82 15.0 12/12/17 11:30 103 103/56 12/12/17 11:15 102 89/73 12/12/17 11:00 103 136/63 12/12/17 10:50 92 120/59 12/12/17 10:41 36.5 84 122/51 (74) Physical Exam General Appearance: no apparent distress, + obese Eyes: normal inspection, sclerae normal ENT: hearing grossly normal Neck: trachea midline Respiratory/Chest: no respiratory distress, no accessory muscle use, + decreased breath sounds (Throughout due to obese body habitus) Cardiovascular: regular rate, rhythm, no murmur, + pertinent finding (3+ pitting edema and anasarca) Abdomen: normal bowel sounds, non tender, soft (And morbidly obese) Extremities: + swelling (As above) Neurologic/Psychiatric: alert, + pertinent finding (Agitated and angry) Skin: warm/dry, + pertinent finding (Multiple excoriated lesions) Laboratory Results Last 24 Hours Test 12/12/17 10:47 12/12/17 15:46 12/12/17 20:15 12/13/17 04:43 Bedside Glucose 191 mg/dl 175 mg/dl 178 mg/dl White Blood Count 12.53 K/uL Red Blood Count 3.65 M/uL Hemoglobin 9.9 g/dL Hematocrit 31.5 % Mean Corpuscular Volume 86.3 fL Mean Corpuscular Hemoglobin 27.1 pg Mean Corpuscular Hemoglobin Concent 31.4 g/dl RDW Standard Deviation 62.7 fL RDW Coefficient of Variation 19.7 % Platelet Count 149 K/uL Mean Platelet Volume 9.0 fL Sodium Level 131 mmol/L Potassium Level 5.1 mmol/L Chloride Level 95 mmol/L Carbon Dioxide Level 27 mmol/L Anion Gap 9.0 mmol/L Blood Urea Nitrogen 68 mg/dl Creatinine 4.03 mg/dl Est Creatinine Clear Calc Drug Dose 21.5 ml/min Estimated GFR () 13.2 Estimated GFR (Non- 11.4 BUN/Creatinine Ratio 16.9 Random Glucose 152 mg/dl Calcium Level 7.3 mg/dl Phosphorus Level 8.6 mg/dl Magnesium Level 2.0 mg/dl Ammonia 85.0 umol/L Assessment and Plan This patient is a 57-year-old female with complex medical history here with: 1. acute/chronic hypoxic respiratory failure - acute component due to acute/ chronic CHF and volume overload from acute renal failure. No improvement. Remains on max settings of High-Flow NC. BiPAP at nighttime I am concerned that intubation is imminent given her status, CODE STATUS discussions in process with palliative care today. She is a full code based on a prior POLST form from earlier this year. 2. Acute/chronic combined systolic/diastolic CHF along with severe acute/ chronic right-sided heart failure (cor pulmonale)- Her weight on admission was up at least 10kg in comparison to her previous hospital d/c date of 11/14/17. *Echo: Grossly normal LV size and wall thickness.Moderate LV dysfunction. LVEF 35-40%. Severe inferolateral hypokinesis. Flattened septum consistent with RV pressure/ volume overload.Severely dilated RV with moderate RV dysfunction.[id number] eccentric mitral regurgitation.Aortic valve sclerosis without stenosis.Moderate to severe TR.Severe pulmonary hypertension. Estimated PASP 80-85 mmHg. Dilated IVC , estimated RA 15 mmHg. Weight was down and was diuresing somewhat, but then hearing dog trainer trending upward and diuretics on hold, now with anuria and requiring dialysis -holding all diuretics She historically has been exceptionally challenging to manage due to a number of factors including poor self-care, poor compliance w/ diet, etc. -Prognosis is very poor. attempts at medical management with diuretics unsuccessful. She then developed acute renal failure with anuria. s/p hemodialysis the last [address] Nava. Remains critically ill. 3. severe pulmonary HTN - presumed 2nd to long-standing, untreated ROHAN and/or VTE. 4. ROHAN - refusing BIPAP at times. 5. COPD - continue nebs. 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 Nava. 7. DVT proph - has IVC filter in place; heparin 5000 BID. 8. chronic rodriguez catheter usage - exchange monthly. Has asymptomatic bacteriuria on recent urine cx. 9. morbid obesity with BMI 51 10. sacral decubitus ulcer, stage 3 - defer to wound care. She had been refusing regular nursing care of this problem (refusing dressing changes, etc). 11. b/l foot/heel/achilles ulcers - managed by wound care. 12. ?cirrhosis - CT abd/pelvis in October 2017 showed cirrhotic changes. Suspect this would be from ALFREDO or could be "cardiac" cirrhosis from cor pulmonale. Certainly cirrhosis could be playing a role in her volume overload state and altered mental status (hepatic encephalopathy). Ammonia level quite elevated today at 85. However, mentally she seems improved and is oriented. She is absolutely refusing rifaximin 13. T2DM - control adequate. 14. acute kidney injury/acute renal failure in setting of CKD stage 3-4 - appreciate nephrology assistance, s/p HD yesterday and today; daily sessions planned to remove her massive fluid overload. 15. metabolic encephalopathy - suspect combination of hypercarbia, hypoxia, uremia and hyperammonemia all playing roles. Improved today Ammonia level as above -Refusing rifaximin 16. right shoulder pain - voltaren gel qid; has chronic deformity 17. Chronic Enedina intertrigo-maintains chronic fluconazole therapy at home- has been discontinued here 18. Seborrheic dermatitis on face- -continue ketoconazole cream as needed 19. Left eye chronic exudate-suspect dry eye especially in setting of diuretic use. No evidence at all of infection or red eye, iritis, etc. -continue eyedrops as needed Previous hospitalist spoke with son, Brown, by phone on 12/10/17; extensive update given on her worsening volume status, renal status, and her cardiac issues; told him HD was imminent at that time left message for Brown on his voicemail on 12/11/17 informing him that HD was indeed started patient has stated that her son is likely traveling from [place] this weekend or early next week to [place] remains critically ill, but stable for transfer to telemetry palliative care consultation today
--- NOTE | 2017-12-13 15:32 | Critical Care Progress Note ---
Critical Care Progress Note Date of Service Dec 13, 2017. Attending Dr. Chau Subjective Talking to the patient's room at approximately 0745 this morning. I greeted patient with "good morning". Patient looked towards me and then continued to eat her breakfast. I asked how she was doing and she did not reply. I asked if I could listen to her heart, to which she stated, "I do not know why I need to see you every day." I asked again if it was okay if I can listen to her heart and lungs. She replied with "No. Goodbye." No further engagement was attempted and I left the room. Objective General Appearance: Awake, alert, appeared overall relatively comfortable, and was uncooperative on attempted history and physical. Unable to obtain further physical exam due to patient's refusal. Assessment & Plan 57-year-old female admitted on [id number] for increased cough and dyspnea on exertion. PMH: Chronic diastolic heart failure, pulmonary hypertension, ROHAN on BiPAP, poorly controlled DM 2, CKD stage IV, stage III sacral decubitus ulcer, venous stasis ulcers, chronic right heel and right Achilles wounds, chronic hypoxic and hypercapnic respiratory failure, gout, COPD, morbid obesity. PSH: IVC filter, , left hip fracture ORIF, multiple dbridements and various lower extremity wounds, multiple PICC lines. NURSE EPIDEMIOLOGIST: CAM-ICU negative. Patient is awake, alert, and immediately recognized me from yesterday morning's evaluation. History of chronic pain. Difficult to assess her pain since patient does not engage. On Roxicodone. Pulm: PMH chronic respiratory failure likely related to COPD, obesity hypoventilation syndrome, and chronic heart failure. On this admission has notable hypoxic & hypercapnic respiratory failure. 17Apr CT chest without contrast noted left axillary and mediastinal adenopathy that was stable to slightly improved. She periodically has refused BiPAP, however has agreed to it in past couple days. SpO2 has been in the 70s-80s. pCXR suggestive of cardiomegaly and trace pleural effusions with atelectasis. Has periodically accepted DuoNeb's. Would benefit from ongoing BiPAP use. CVS: Acute on chronic diastolic congestive heart failure. History of pulmonary hypertension. 24Apr right heart cath is notable for elevated intracardiac filling pressures, severe pulmonary hypertension, and preserved cardiac output. Holding Bumex and Aldactone. ID: Chronic venous stasis with lower extremity wounds. Here afebrile, WBC stable around 12. See "skin" below. No other suspected acute infectious issues. - Note multiple antibiotic allergies. Endo: History of poorly controlled diabetes. Patient accepted her Lantus but continues to refuse multiple doses of sliding scale NovoLog. Monitoring. Renal/Lytes: H CKD stage IV. Cr rise from 2.03 to 4.62. Presently in [facility] with ATN. Anuric with azotemia. Lerner cath in place, which will remain due to chronic hygiene issues. Nephrology on board, please see their notes. 25Apr placed right internal jugular temporary dialysis catheter. Two sessions of dialysis thus far have taken off 2 + 4 L respectively. See nephrology's notes for plans for continued dialysis. - Hyponatremia: Na 129. Should improve with dialysis. Monitoring. - Hyperkalemia: Max K 5.9. No ongoing T-wave changes on gambling monitor. Patient has refused Kayexalate. Improving with dialysis. Monitoring. - Hyperphosphatemia: Phos 9.2 Could consider phosphate binder, but will defer recommendation to nephrology. GI: BMI 51. Low sodium diet, DM 2 diet, renal diet, and will fluid restrict to [address] a/p suggestive of cirrhotic changes. Perhaps due to mass or volume overload. - Place nutrition consult to help with overall diet given her BMI. Heme: Hb stable around 10. Platelets 165. No known acute hematological issues. DVT prophy: Heparin 5000 units every 8 hours. Patient has refused the last eight doses. Patient has IVC filter in place based on CT a/p in October 2018. Skin: Chronic sacral and foot ulcers. Has previously allowed wound care to manage these areas, but some recent refusal. Patient has refused similar care by ICU staff. - Presently deferring all wound care to the wound care team. Lines: Right IJ temporary dialysis catheter. Right arm PICC. Code status: Unclear, thus full code for now. PT/OT: See related notes. Disposition: At this time, there are no additional critical care interventions to offer. Patient is stable for transfer to telemetry. Consulted palliative care to help patient with her overall medical goals. Care plan: Reviewed patient's "patient centered plan of care" signed on 02 December 2017. She is currently not compliant with the same. Will continue to attempt to reengage to provide her the best medical care possible that she will accept. On discussion at multidisciplinary rounds this morning, it is still believed the patient has capacity to make her own medical decisions. Resident Physician Supervision Note: Dr. Bennett was resident physician during care of patient. I separately evaluated patient and did history and exam. I discussed the case with the resident and generally agree with the findings and plan. Patient's multiple chronic medical issues appear to be stable and at their baseline. She continues to tolerate dialysis. I have reconsult palliative care to better define her ultimate goals of care as she has made statements consistent with not wanting heroic measures undertaken. Certainly do believe that the patient has capacity at this time. She is stable for downgrade out of the ICU. Documented By: Ronnie Chau DO Consults & Procedures Consultants: Nephrology, cardiology. Procedures: See cardiac cath report. Data Medications: Current Inpatient Medications Medications (Trade) Dose Ordered Sig/Bruno Route Start Time Stop Time Status Last Admin Dose Admin Acetaminophen (Tylenol Tab) 650 mg Q4H PRN PO 11/29/17 18:30 12/29/17 18:29 Al Hydrox/Mg Hydrox/Simethicone (Maalox Max Susp) 15 ml Q4H PRN PO 11/29/17 18:30 12/29/17 18:29 Magnesium Hydroxide (Milk Of Magnesia Susp) 30 ml Q6H PRN PO 11/29/17 18:30 12/29/17 18:29 Polyethylene (Miralax Powder Packet) 17 gm DAILY PRN PO 11/29/17 18:30 12/29/17 18:29 Ondansetron HCl (Zofran Inj) 4 mg Q6H PRN IV 11/29/17 18:30 12/29/17 18:29 12/12/17 13:22 4 MG Insulin Aspart (novoLOG ASPART) SLIDING SCALE G... ACHS SC 11/29/17 21:00 12/29/17 20:59 12/10/17 14:21 3 UNITS Clotrimazole (Lotrimin 1% Crm) 1 appln Q12 PRN EXT 11/29/17 18:30 12/29/17 18:29 Ergocalciferol (Vitamin D Cap) 50,000 interunit Fr@0900 PO 12/06/17 09:00 01/05/18 08:59 12/13/17 09:34 50,000 INTERUNIT Heparin Sodium (Porcine) (Heparin 10 Unit/ ml 5 ml Flush) 5 ml BID FLUSH 11/29/17 20:00 12/29/17 20:59 12/13/17 09:39 5 ML Albuterol/ Ipratropium (Duoneb) 3 ml Q4H PRN INH 11/29/17 18:30 12/29/17 18:29 12/03/17 10:25 3 ML Albuterol/ Ipratropium (Duoneb) 3 ml Q6R INH 11/29/17 21:00 12/29/17 20:59 12/13/17 14:23 3 ML Bisacodyl (Dulcolax Supp) 10 mg DAILY PRN [place] 11/29/17 18:30 12/29/17 18:29 Buspirone HCl (Buspar Tab) 5 mg Q12 PRN PO 11/29/17 18:30 12/29/17 18:29 12/13/17 09:33 5 MG Miscellaneous (Iv Fluids Completed) 1 ea PRN PRN N/A 11/29/17 19:15 11/29/18 19:14 Miconazole Nitrate (Desenex Powder) 1 appln UD PRN EXT 11/30/17 19:00 12/30/17 18:59 Oxycodone HCl (Roxicodone Immediate Rel Tab) 10 mg Q4H PRN PO 12/01/17 11:15 12/13/17 18:29 12/11/17 21:56 10 MG Heparin Sodium (Porcine) (Heparin 10 Unit/ ml 5 ml Flush) 5 ml PRN PRN FLUSH 12/02/17 15:45 01/01/18 15:44 12/09/17 08:30 5 ML Insulin Glargine (Lantus Solostar Pen) 12 units QAM SQ 12/05/17 08:00 12/30/17 08:59 12/13/17 09:36 12 UNITS Artificial Tears (Artificial Tears) 2 drops Q3H PRN OP 12/04/17 11:15 01/03/18 11:14 Diphenhydramine HCl (Benadryl Cap) 25 mg Q4H PRN PO 12/04/17 19:00 01/03/18 18:59 12/12/17 22:09 25 MG Artificial Tears (Lacri-Lube Oph Oint) 1 appln BID OP 12/07/17 20:00 01/06/18 19:59 Naphazoline HCl/ Pheniramine Maleate (Visine-A Oph Soln) 2 drops TID OP 12/08/17 14:00 01/07/18 13:59 12/10/17 14:24 2 DROPS Fexofenadine HCl (Tanesha Tab) 180 mg QAM PO 12/09/17 08:00 01/08/18 07:59 Heparin Sodium (Porcine) 7500 unit/Syringe 0.75 ml @ 0 mls/sec Q8 SC 12/12/17 14:00 01/11/18 13:59 Calcium Acetate (Phoslo Cap) 1,334 mg TIDM PO 12/12/17 16:30 01/11/18 16:29 12/12/17 17:31 1,334 MG Rifaximin (Xifaxan Tab) 550 mg BID PO 12/13/17 09:00 01/12/18 08:59 I & O: 24-Hour Column 12/14/17 07:59 Intake Total 250 ml Output Total 3825 ml Balance -3575 ml Vital Signs: Date Time Temp Pulse Resp B/P (MAP) Pulse Ox O2 Delivery O2 Flow Rate FiO2 12/13/17 14:34 106 22 87 Nasal Cannula 55.0 100 12/13/17 12:05 36.1 107 103/67 (79) 12/13/17 12:00 High Flow Oxygen 55.0 100 12/13/17 12:00 113 130/84 12/13/17 12:00 36.6 102 22 84 High Flow Oxygen 50.0 100 12/13/17 11:30 110 103/81 12/13/17 11:15 108 115/72 12/13/17 10:45 108 112/60 12/13/17 10:30 103 104/74 12/13/17 10:21 110 12/13/17 10:00 105 112/71 12/13/17 09:45 110 111/88 12/13/17 09:30 107 114/77 12/13/17 09:15 104 158/137 12/13/17 09:00 104 12/13/17 08:50 36.6 107 193/164 (174) 12/13/17 08:00 High Flow Oxygen 55.0 100 12/13/17 08:00 BiPAP 100 12/13/17 08:00 36.6 102 13 103/66 (78) 76 BiPAP 12/13/17 06:00 102 13 92/75 (81) 81 BiPAP 12/13/17 04:01 36.4 98 13 103/60 (74) 76 BiPAP 12/13/17 04:00 98 17 75 12/13/17 04:00 77 BiPAP 12/13/17 02:00 102 20 122/73 (89) 83 BiPAP 12/12/17 23:59 87 BiPAP 12/12/17 23:59 36.4 105 31 87 BiPAP 12/12/17 22:27 105 82 15.0 12/12/17 21:30 99 22 76 12/12/17 21:00 99 28 74 12/12/17 20:30 99 22 79 12/12/17 20:19 102 27 108/55 (72) 83 12/12/17 20:00 BiPAP 15.0 12/12/17 20:00 97 25 80 12/12/17 20:00 36.6 99 22 108/55 (72) 79 BiPAP 15.0 12/12/17 19:58 98 85 15.0 12/12/17 19:30 100 23 77 12/12/17 19:00 104 24 77 12/12/17 18:49 104 17 134/113 (120) 78 12/12/17 18:30 99 24 84 12/12/17 18:00 103 13 81 12/12/17 17:30 103 20 82 12/12/17 17:00 105 30 79 12/12/17 16:30 100 20 82 12/12/17 16:01 104 29 105/63 (77) 81 12/12/17 16:00 High Flow Oxygen 55.0 100 Nasal Cannula 12/12/17 16:00 36.6 106 24 99/62 (74) 83 High Flow Oxygen 55.0 100 Nasal Cannula 12/12/17 16:00 102 31 81 12/12/17 15:51 106 26 95/62 (73) 84 12/12/17 15:30 101 25 87 Laboratory Results: Last 24 Hours Test 12/12/17 15:46 12/12/17 20:15 12/13/17 04:43 Bedside Glucose 175 mg/dl 178 mg/dl White Blood Count 12.53 K/uL Red Blood Count 3.65 M/uL Hemoglobin 9.9 g/dL Hematocrit 31.5 % Mean Corpuscular Volume 86.3 fL Mean Corpuscular Hemoglobin 27.1 pg Mean Corpuscular Hemoglobin Concent 31.4 g/dl RDW Standard Deviation 62.7 fL RDW Coefficient of Variation 19.7 % Platelet Count 149 K/uL Mean Platelet Volume 9.0 fL Sodium Level 131 mmol/L Potassium Level 5.1 mmol/L Chloride Level 95 mmol/L Carbon Dioxide Level 27 mmol/L Anion Gap 9.0 mmol/L Blood Urea Nitrogen 68 mg/dl Creatinine 4.03 mg/dl Est Creatinine Clear Calc Drug Dose 21.5 ml/min Estimated GFR () 13.2 Estimated GFR (Non- 11.4 BUN/Creatinine Ratio 16.9 Random Glucose 152 mg/dl Calcium Level 7.3 mg/dl Phosphorus Level 8.6 mg/dl Magnesium Level 2.0 mg/dl Ammonia 85.0 umol/L Resident Tracking Resident Involvement: Resident Care Provided Care Provided: Adult Hospital Medicine (ICU)
--- NOTE | 2017-12-13 18:45 | Palliative Care Consultation ---
Consultation Date of Consultation: Dec 13, 2017. Requesting Physician: Dr. Chau Attending Physician: Dr. Honeycutt Reason for Consultation: Goals of Care History of Present Illness This is a 57 year old female who was admitted from the [facility] on 11/29/17 with SOB and cough. She has an extensive PMH that includes CHF, pHTN, DM2, ROHAN on BiPAP, morbid obesity, CKD Stage IV, and a Stage III sacral ulcer. The patient has been evaluated by Nephrology and has agreed to a trial of 3 days of hemodialysis for fluid removal. She has been non compliant with medications which may be contributing to some of her disease process. I approached having a GOALS OF CARE discussion - she kept saying over and over "this is not quality of life - this is no life" Additionally, she kept saying " I would rather here than return to the [facility]". When I discussed CPR and intubation, she said she "would never want to be back on a ventilator - she was on one of them before", but when confirming DNR/DNI - she would not answer and kept saying "You people are ridiculous". It appears that multiple conversations may be helpful to truly understand her goals. She does have children and I asked if it would be helpful to have them involved with these complex decisions, but she would not offer a direct response. Upon assessment, the patient is lying in bed awake, alert and oriented with SOB with movement. She is currently on Hi-perry O2 with her SpO2 anywhere from 83-91% when I was in the room. She appears to get anxious with any movement (I was in the room when she was pulled up in the bed, and it appears to cause anxiety with her). Social History Smoking Status: Former Smoker History of Alcohol Use: No Drug Use: none Marital Status: single, Housing Status: usp Occupation Status: disabled Review of Systems Patient not participating in ROS - She kept saying - 'of course I am uncomfortable' Allergies Coded Allergies: Vancomycin (Verified Allergy, Severe, ANAPHYLAXIS, 10/31/17) pt began shaking,face and neck bright red rash.o2 saturation dropping to 84% on 15lnrb Ampicillin (Verified Allergy, Mild, RASH, 10/31/17) Clindamycin (Verified Allergy, Mild, RASH, 10/31/17) Linezolid (Verified Allergy, Mild, RASH, 10/31/17) Penicillins (Verified Allergy, Mild, RASH, 10/31/17) Ciprofloxacin (Verified Adverse Reaction, Mild, MUSCLE ACHES, 10/31/17) muscle aches Methimazole (Verified Adverse Reaction, Mild, headache, 10/31/17) headache Nystatin (Verified Adverse Reaction, Mild, nausea, abd pain, kidney pain, 10/31/17) nausea, abd pain,kidney pain Medications Current Inpatient Medications Medications (Trade) Dose Ordered Sig/Bruno Route Start Time Stop Time Status Last Admin Dose Admin Acetaminophen (Tylenol Tab) 650 mg Q4H PRN PO 11/29/17 18:30 12/29/17 18:29 Al Hydrox/Mg Hydrox/Simethicone (Maalox Max Susp) 15 ml Q4H PRN PO 11/29/17 18:30 12/29/17 18:29 Magnesium Hydroxide (Milk Of Magnesia Susp) 30 ml Q6H PRN PO 11/29/17 18:30 12/29/17 18:29 Polyethylene (Miralax Powder Packet) 17 gm DAILY PRN PO 11/29/17 18:30 12/29/17 18:29 Ondansetron HCl (Zofran Inj) 4 mg Q6H PRN IV 11/29/17 18:30 12/29/17 18:29 12/12/17 13:22 4 MG Insulin Aspart (novoLOG ASPART) SLIDING SCALE G... ACHS SC 11/29/17 21:00 12/29/17 20:59 12/10/17 14:21 3 UNITS Clotrimazole (Lotrimin 1% Crm) 1 appln Q12 PRN EXT 11/29/17 18:30 12/29/17 18:29 Ergocalciferol (Vitamin D Cap) 50,000 interunit Fr@0900 PO 12/06/17 09:00 01/05/18 08:59 12/13/17 09:34 50,000 INTERUNIT Heparin Sodium (Porcine) (Heparin 10 Unit/ ml 5 ml Flush) 5 ml BID FLUSH 11/29/17 20:00 12/29/17 20:59 12/13/17 09:39 5 ML Albuterol/ Ipratropium (Duoneb) 3 ml Q4H PRN INH 11/29/17 18:30 12/29/17 18:29 12/03/17 10:25 3 ML Albuterol/ Ipratropium (Duoneb) 3 ml Q6R INH 11/29/17 21:00 12/29/17 20:59 12/13/17 14:23 3 ML Bisacodyl (Dulcolax Supp) 10 mg DAILY PRN [place] 11/29/17 18:30 12/29/17 18:29 Buspirone HCl (Buspar Tab) 5 mg Q12 PRN PO 11/29/17 18:30 12/29/17 18:29 12/13/17 09:33 5 MG Miscellaneous (Iv Fluids Completed) 1 ea PRN PRN N/A 11/29/17 19:15 11/29/18 19:14 Miconazole Nitrate (Desenex Powder) 1 appln UD PRN EXT 11/30/17 19:00 12/30/17 18:59 Oxycodone HCl (Roxicodone Immediate Rel Tab) 10 mg Q4H PRN PO 12/01/17 11:15 12/13/17 18:29 12/11/17 21:56 10 MG Heparin Sodium (Porcine) (Heparin 10 Unit/ ml 5 ml Flush) 5 ml PRN PRN FLUSH 12/02/17 15:45 01/01/18 15:44 12/09/17 08:30 5 ML Insulin Glargine (Lantus Solostar Pen) 12 units QAM SQ 12/05/17 08:00 12/30/17 08:59 12/13/17 09:36 12 UNITS Artificial Tears (Artificial Tears) 2 drops Q3H PRN OP 12/04/17 11:15 01/03/18 11:14 Diphenhydramine HCl (Benadryl Cap) 25 mg Q4H PRN PO 12/04/17 19:00 01/03/18 18:59 12/12/17 22:09 25 MG Artificial Tears (Lacri-Lube Oph Oint) 1 appln BID OP 12/07/17 20:00 01/06/18 19:59 Naphazoline HCl/ Pheniramine Maleate (Visine-A Oph Soln) 2 drops TID OP 12/08/17 14:00 01/07/18 13:59 12/10/17 14:24 2 DROPS Fexofenadine HCl (Tanesha Tab) 180 mg QAM PO 12/09/17 08:00 01/08/18 07:59 Heparin Sodium (Porcine) 7500 unit/Syringe 0.75 ml @ 0 mls/sec Q8 SC 12/12/17 14:00 01/11/18 13:59 Calcium Acetate (Phoslo Cap) 1,334 mg TIDM PO 12/12/17 16:30 01/11/18 16:29 12/12/17 17:31 1,334 MG Rifaximin (Xifaxan Tab) 550 mg BID PO 12/13/17 09:00 01/12/18 08:59 Physical Exam Date Time Temp Pulse Resp B/P (MAP) Pulse Ox O2 Delivery O2 Flow Rate FiO2 12/13/17 18:16 37.0 103 24 113/70 (84) 12/13/17 17:41 36.6 109 13 86 50.0 12/13/17 16:00 36.6 109 13 91/64 (73) 86 High Flow Oxygen 50.0 100 12/13/17 16:00 High Flow Oxygen 55.0 100 12/13/17 14:34 106 22 87 Nasal Cannula 55.0 100 12/13/17 13:41 109 16 82/63 (69) 85 High Flow Oxygen 50.0 100 12/13/17 12:05 36.1 107 103/67 (79) 12/13/17 12:00 High Flow Oxygen 55.0 100 12/13/17 12:00 113 130/84 12/13/17 12:00 36.6 102 22 84 High Flow Oxygen 50.0 100 12/13/17 11:30 110 103/81 12/13/17 11:15 108 115/72 12/13/17 10:45 108 112/60 12/13/17 10:30 103 104/74 12/13/17 10:21 110 12/13/17 10:00 105 112/71 12/13/17 09:45 110 111/88 12/13/17 09:30 107 114/77 12/13/17 09:15 104 158/137 12/13/17 09:00 104 12/13/17 08:50 36.6 107 193/164 (174) 12/13/17 08:00 High Flow Oxygen 55.0 100 12/13/17 08:00 BiPAP 100 12/13/17 08:00 36.6 102 13 103/66 (78) 76 BiPAP 12/13/17 06:00 102 13 92/75 (81) 81 BiPAP 12/13/17 04:01 36.4 98 13 103/60 (74) 76 BiPAP 12/13/17 04:00 98 17 75 12/13/17 04:00 77 BiPAP 12/13/17 02:00 102 20 122/73 (89) 83 BiPAP 12/12/17 23:59 87 BiPAP 12/12/17 23:59 36.4 105 31 87 BiPAP 12/12/17 22:27 105 82 15.0 12/12/17 21:30 99 22 76 12/12/17 21:00 99 28 74 12/12/17 20:30 99 22 79 12/12/17 20:19 102 27 108/55 (72) 83 12/12/17 20:00 BiPAP 15.0 12/12/17 20:00 97 25 80 12/12/17 20:00 36.6 99 22 108/55 (72) 79 BiPAP 15.0 12/12/17 19:58 98 85 15.0 12/12/17 19:30 100 23 77 12/12/17 19:00 104 24 77 12/12/17 18:49 104 17 134/113 (120) 78 General Appearance: + mild distress (respiratory distress/SOB with movement) Neck: supple Respiratory: + decreased breath sounds, + accessory muscle use Cardiovascular: + pertinent finding (generalized anasarca - morbid obese) Abdomen: + pertinent finding (large, firm from encephalopathy, distant bowel sounds) Musculoskeletal: pertinent finding (able to move all extremities) Neurologic/Psychiatric: oriented x 3 Skin: + pertinent finding (documented sacral wound by nursing - i did not observe this. Skin warm, dry - erythema on LE) Laboratory Results Last 24 Hours Test 12/12/17 20:15 12/13/17 04:43 12/13/17 07:45 12/13/17 11:30 Bedside Glucose 178 mg/dl 149 mg/dl 139 mg/dl White Blood Count 12.53 K/uL Red Blood Count 3.65 M/uL Hemoglobin 9.9 g/dL Hematocrit 31.5 % Mean Corpuscular Volume 86.3 fL Mean Corpuscular Hemoglobin 27.1 pg Mean Corpuscular Hemoglobin Concent 31.4 g/dl RDW Standard Deviation 62.7 fL RDW Coefficient of Variation 19.7 % Platelet Count 149 K/uL Mean Platelet Volume 9.0 fL Sodium Level 131 mmol/L Potassium Level 5.1 mmol/L Chloride Level 95 mmol/L Carbon Dioxide Level 27 mmol/L Anion Gap 9.0 mmol/L Blood Urea Nitrogen 68 mg/dl Creatinine 4.03 mg/dl Est Creatinine Clear Calc Drug Dose 21.5 ml/min Estimated GFR () 13.2 Estimated GFR (Non- 11.4 BUN/Creatinine Ratio 16.9 Random Glucose 152 mg/dl Calcium Level 7.3 mg/dl Phosphorus Level 8.6 mg/dl Magnesium Level 2.0 mg/dl Ammonia 85.0 umol/L Test 12/13/17 16:26 Bedside Glucose 170 mg/dl Assessment & Plan Palliative Performance Scale: 20 % Palliative Care Encounter Goals of Care Hypoxia CKD St IV ROHAN COPD Palliative Care Recommendations: -Continue supportive Care -After discussion of CODE STATUS, I do not feel comfortable making her DNR and she kept changing her mind and not answering directly. I will continue to follow and gain rapport to readdress CODE STATUS. Currently, I would say that we need to keep her FULL CODE. -Reach out to her son - who is to be here next week to discuss being involved with these conversations which may help patient feel more at ease with the discussion -Follow peripherally to Nephrology and assess the outcome of dialysis sessions. Thank you for including us on this patient's care - we will continue to follow closely to address GOALS OF CARE. Counseling and Coordination Total time spent 70 minutes with > 50% of that time assessing patient and discussing goals of care with the patient at the bedside.
[2017-12-14] MEDS: ALBUT/IPRATROP 3MG/0.5MG NEB 3 ML VIAL INH SCH ×3 (02:07→15:00)
[2017-12-14 03:58] VITALS: BP 122/69; PULSE 62; TEMP 35.7; O2SAT 84
[2017-12-14] MEDS: HEPARIN SQ 5000 UNIT/0.5ML 7,500 UNIT in SYRINGE 0 ML SC SCH (06:00)
[2017-12-14] MEDS ORDERED: MoRPHine SULFATE 2 MG/ML CARP IV STA (07:59)
[2017-12-14] MEDS ORDERED: MoRPHine SULFATE 2 MG/ML CARP IV PRN (08:15)
[2017-12-14] MEDS ORDERED: LORAZEPAM 2 MG/ML 1 ML VIAL IV PRN (08:15)
--- NOTE | 2017-12-14 08:27 | Hospitalist Progress Note ---
Hospitalist Progress Note Date of Service Dec 14, 2017. Subjective Pt evaluation today including: conversation w/ patient, conversation w/ family (son), conversation w/ executive talent acquisition consultant (Nephrology) Voiding: rodriguez catheter in place RN reports that patient has been yelling out all night that she just wants to . She wants everything taken off she tells me. Does not want a heart monitor, says that she does not even want the oxygen. She feels very short of breath. She reports pain all over her entire body. She is very clear and oriented with me. She says she just does not want to be miserable anymore. She absolutely does not want to do anymore hemodialysis. She has pruritus in multiple places. She states that she clearly does not want to be resuscitated or intubated. She remains on 100% FiO2 on high flow nasal cannula and says that her nose is dry and she wants the oxygen off as well. We discussed that oxygen can help keep her comfortable and feel less breathless; she would like to try morphine for her pain and shortness of breath. She says that she is ready to today. I called her son and discussed her grave condition with him. He is currently getting in his truck and about to make the [address] to here and wants me to try to keep her alive till he gets here-I advised him that she might not have that long to live and he understands. Patient says she does not want any blood work done. Telemetry with bradycardia and frequent bigeminy all night Constitutional: No fever Eyes: + problem reported (Dry eyes) ENT: + nasal symptoms (Dry and itchy nose) Respiratory: + shortness of breath Cardiovascular: No chest pain Breast: No problem reported Abdomen: No problem reported Musculoskeletal: + problem reported (Pain all over her body multiple places) Female : No problem reported Neurologic: No problem reported Psychiatric: + anxiety Heme: No problem reported Endo: No problem reported Skin: + itch All Other Systems: Reviewed and Negative Objective Vital Signs Date Time Temp Pulse Resp B/P (MAP) Pulse Ox O2 Delivery O2 Flow Rate FiO2 12/14/17 04:00 High Flow Oxygen 55.0 100 12/14/17 03:58 35.7 62 24 122/69 (86) 84 High Flow Oxygen 12/14/17 00:00 High Flow Oxygen 55.0 100 12/13/17 22:57 36.5 104 18 102/59 (73) 85 BiPAP 12/13/17 21:25 99 85 15.0 12/13/17 20:00 High Flow Oxygen 55.0 100 12/13/17 18:16 37.0 103 24 113/70 (84) 86 High Flow Oxygen 12/13/17 17:41 36.6 109 13 86 50.0 12/13/17 16:00 36.6 109 13 91/64 (73) 86 High Flow Oxygen 50.0 100 12/13/17 16:00 High Flow Oxygen 55.0 100 12/13/17 14:34 106 22 87 Nasal Cannula 55.0 100 12/13/17 13:41 109 16 82/63 (69) 85 High Flow Oxygen 50.0 100 12/13/17 12:05 36.1 107 103/67 (79) 12/13/17 12:00 High Flow Oxygen 55.0 100 12/13/17 12:00 113 130/84 12/13/17 12:00 36.6 102 22 84 High Flow Oxygen 50.0 100 12/13/17 11:30 110 103/81 12/13/17 11:15 108 115/72 12/13/17 10:45 108 112/60 12/13/17 10:30 103 104/74 12/13/17 10:21 110 12/13/17 10:00 105 112/71 12/13/17 09:45 110 111/88 12/13/17 09:30 107 114/77 12/13/17 09:15 104 158/137 12/13/17 09:00 104 12/13/17 08:50 36.6 107 193/164 (174) Physical Exam General Appearance: + mild distress (Tachypneic, mild accessory muscle use), + obese Eyes: normal inspection, sclerae normal ENT: hearing grossly normal Neck: trachea midline Respiratory/Chest: + respiratory distress, + decreased breath sounds ( Diminished throughout), + accessory muscle use Cardiovascular: regular rate, rhythm (With ectopy), + pertinent finding ( Massive anasarca) Abdomen: non tender, soft Extremities: + swelling (As above) Neurologic/Psychiatric: + pertinent finding (Anxious) Skin: + pertinent finding (Multiple areas of excoriation) Laboratory Results Last 24 Hours Test 12/13/17 11:30 12/13/17 16:26 12/13/17 19:57 12/14/17 07:08 Bedside Glucose 139 mg/dl 170 mg/dl 178 mg/dl 191 mg/dl Assessment and Plan This patient is a 57-year-old female with complex medical history here with: 1. acute/chronic hypoxic respiratory failure - acute component due to acute/ chronic CHF and volume overload from acute renal failure. No improvement. Remains on max settings of High-Flow NC. BiPAP at nighttime Patient now requesting comfort measures only, once oxygen removed, however I did discuss that it could help with her breathlessness and for comfort-will remain in place while she takes it off -We will stop all treatment, stopping dialysis -Morphine and Ativan for pain, breathlessness, anxiety or agitation 2. Acute/chronic combined systolic/diastolic CHF along with severe acute/ chronic right-sided heart failure (cor pulmonale)- Her weight on admission was up at least 10kg in comparison to her previous hospital d/c date of 11/14/17. *Echo: Grossly normal LV size and wall thickness.Moderate LV dysfunction. LVEF 35-40%. Severe inferolateral hypokinesis. Flattened septum consistent with RV pressure/ volume overload.Severely dilated RV with moderate RV dysfunction.Venr-ga-[id number] eccentric mitral regurgitation.Aortic valve sclerosis without stenosis.Moderate to severe TR.Severe pulmonary hypertension. Estimated PASP 80-85 mmHg. Dilated IVC , estimated RA 15 mmHg. 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 -Prognosis is very poor and continues to deteriorate today. attempts at medical management with diuretics unsuccessful. She then developed acute renal failure with anuria. s/p hemodialysis the last [address] Nava. Remains critically ill. Now will become comfort measures only as above 3. severe pulmonary HTN - presumed 2nd to long-standing, untreated ROHAN and/or VTE. 4. ROHAN - refusing BIPAP at times. 5. COPD - continue nebs. 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 DVT proph - has IVC filter in place; will discontinue heparin 5000 BID. 8. chronic rodriguez catheter usage - exchanged monthly. Has asymptomatic bacteriuria on recent urine cx. No treatment 9. morbid obesity with BMI 51 10. sacral decubitus ulcer, stage 3 - defer to wound care. She had been refusing regular nursing care of this problem (refusing dressing changes, etc). 11. b/l foot/heel/achilles ulcers - managed by wound care. 12. ?cirrhosis - CT abd/pelvis in October 2017 showed cirrhotic changes. Suspect this would be from ALFREDO or could be "cardiac" cirrhosis from cor pulmonale. Certainly cirrhosis could be playing a role in her volume overload state and altered mental status (hepatic encephalopathy). Ammonia level quite elevated at 85. However, mentally she seems improved and is oriented. She is absolutely refusing rifaximin -DC rifaximin 13. T2DM - control adequate. DC Accu-Cheks and insulin for comfort 14. acute kidney injury/acute renal failure in setting of CKD stage 3-4 - appreciate nephrology assistance, s/p HD 2 days; daily sessions planned to remove her massive fluid overload. -DC hemodialysis 15. metabolic encephalopathy - suspect combination of hypercarbia, hypoxia, uremia and hyperammonemia all playing roles. Improved today Ammonia level as above -Refusing rifaximin-DC as above 16. right shoulder pain - voltaren gel qid; has chronic deformity 17. Chronic Enedina intertrigo-maintains chronic fluconazole therapy at home- has been discontinued here 18. Seborrheic dermatitis on face- No treatment 19. Left eye chronic exudate-suspect dry eye especially in setting of diuretic use. No evidence at all of infection or red eye, iritis, etc. -continue eyedrops as needed Previous hospitalist spoke with son, Brown, by phone on 12/10/17; extensive update given on her worsening volume status, renal status, and her cardiac issues; told him HD was imminent at that time left message for Brown on his voicemail on 12/11/17 informing him that HD was indeed started Called son Brown today, 12/14 and discussed that her was imminent she wished to be comfort measures only. He is getting in his vehicle and driving from [place] to here as we speak. I do not think she will make it to the end of the day and I let him know this. Changed as per patient's request a DNR/DNI today Comfort measures only Consider transfer off telemetry if does not pass in the next few hours
[2017-12-14] MEDS: NAPHAZOLIN/PHENIRAMIN OPH SOLN 75 DROPS/5 ML BTL OP SCH ×2 (09:00→13:49)
[2017-12-14] MEDS: MoRPHine SULFATE 2 MG/ML CARP IV PRN ×5 (10:28→18:18)
[2017-12-14 11:15] VITALS: BP 97/64; PULSE 111
[2017-12-14 11:20] VITALS: BP 99/77; PULSE 114
[2017-12-14 11:35] VITALS: BP 97/67; PULSE 111
[2017-12-14 15:36] VITALS: PULSE 103; O2SAT 29
[2017-12-14] MEDS ORDERED: ATROPINE SULFATE 1% OP SOLN 5 ML BTL SL PRN (19:15)
--- NOTE | 2017-12-16 08:21 | Wound Progress Note: Inpatient ---
Wound Progress Note Date of Service Dec 09, 2017. Subjective Pt evaluation today including: conversation w/ patient, physical exam, chart review Patient was seen today for routine evaluation of chronic ulcerations present to the sacrum and left heel region. Patient was recently admitted to [facility] for management of congestive heart failure and dyspnea. Patient currently states she is still very uncomfortable and has shortness of breath with any significant movement. Patient states she has significant fluid buildup throughout her body. Patient currently denies any chest pain. Patient denies any recent fever or chills. No other specific systemic complaints at this time. Objective Physical Exam Notes: Patient's vital signs were reviewed and found to be unremarkable patient is afebrile. Patient is currently lying in hospital bed in mild distress. Marked anasarca is noted from her lower extremities to her upper abdomen. The sacral wound today is essentially unchanged from her prior visit. There is no evidence of any active drainage or odor present at the site. No central slough is noted. Lower extremity ulcerations are also unchanged with no significant slough or periwound erythema noted. No active drainage or odor present. Assessment and Plan Assessment: Stage III pressure ulcer sacral region chronic Stage III pressure ulcer left heel Plan: At this time no debridement is indicated. Besides we will continue to be dressed as before with Aquacel Ag and gauze changed on a daily basis or as needed. Patient will continue to be monitored during her hospitalization and can be followed up in the outpatient clinic upon discharge.
--- NOTE | 2017-12-29 17:34 | Death Summary ---
Summary of Admission Date Nov 30, 2017 at 20:23 Date & Time of December 14, 2017. 2104 Cause of Acute kidney injury Secondary Diagnoses acute/chronic hypoxic respiratory failure volume overload from acute renal failure. Acute/chronic combined systolic/diastolic CHF severe acute/chronic right-sided heart failure (cor pulmonale)- severe pulmonary HTN ROHAN not compliant with CPAP COPD CKD stage 3-[address] chronic rodriguez catheter usage asymptomatic bacteriuria morbid obesity with BMI 51 sacral decubitus ulcer, stage 3 foot/heel/achilles ulcers cirrhosis T2DM metabolic encephalopathy right shoulder pain Chronic Enedina intertrigo Seborrheic dermatitis on face Dry eyes Hospital Course This patient is a 57-year-old female with complex medical history here with: 1. acute/chronic hypoxic respiratory failure - acute component due to acute/ chronic CHF and volume overload from acute renal failure. No improvement. Remains on max settings of High-Flow NC. BiPAP at nighttime Patient then requesting comfort measures only, and wanted her oxygen removed, however I did discuss that it could help with her breathlessness and for comfort -will remain in place while she takes it off -We will stop all treatment, stopping dialysis -Morphine and Ativan for pain, breathlessness, anxiety or agitation -She peacefully at 2105 that same evening 2. Acute/chronic combined systolic/diastolic CHF along with severe acute/ chronic right-sided heart failure (cor pulmonale)- Her weight on admission was up at least 10kg in comparison to her previous hospital d/c date of 11/14/17. *Echo: Grossly normal LV size and wall thickness.Moderate LV dysfunction. LVEF 35-40%. Severe inferolateral hypokinesis. Flattened septum consistent with RV pressure/ volume overload.Severely dilated RV with moderate RV dysfunction.Srei-at-ybymxcou eccentric mitral regurgitation.Aortic valve sclerosis without stenosis.Moderate to severe TR.Severe pulmonary hypertension. Estimated PASP 80-85 mmHg. Dilated IVC , estimated RA 15 mmHg. 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 -Prognosis is very poor and continues to deteriorate today. attempts at medical management with diuretics unsuccessful. She then developed acute renal failure with anuria. s/p hemodialysis the last [address] Nava. comfort measures only as above 3. severe pulmonary HTN - presumed 2nd to long-standing, untreated ROHAN and/or VTE. 4. ROHAN - refusing BIPAP at times. 5. COPD - continue nebs. 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 DVT proph - has IVC filter in place; will discontinue heparin 5000 BID. 8. chronic rodriguez catheter usage - exchanged monthly. Has asymptomatic bacteriuria on recent urine cx. No treatment 9. morbid obesity with BMI 51 10. sacral decubitus ulcer, stage 3 - defer to wound care. She had been refusing regular nursing care of this problem (refusing dressing changes, etc). 11. b/l foot/heel/achilles ulcers - managed by wound care. 12. ?cirrhosis - CT abd/pelvis in October 2017 showed cirrhotic changes. Suspect this would be from ALFREDO or could be "cardiac" cirrhosis from cor pulmonale. Certainly cirrhosis could be playing a role in her volume overload state and altered mental status (hepatic encephalopathy). Ammonia level quite elevated at 85. However, mentally she seems improved and is oriented. She is absolutely refusing rifaximin -DC rifaximin 13. T2DM - control adequate. DC Accu-Cheks and insulin for comfort 14. acute kidney injury/acute renal failure in setting of CKD stage 3-4 - appreciate nephrology assistance, s/p HD 2 days; daily sessions planned to remove her massive fluid overload. -DC hemodialysis 15. metabolic encephalopathy - suspect combination of hypercarbia, hypoxia, uremia and hyperammonemia all playing roles. Improved today Ammonia level as above -Refusing rifaximin-DC as above 16. right shoulder pain - voltaren gel qid; has chronic deformity 17. Chronic Enedina intertrigo-maintains chronic fluconazole therapy at home- has been discontinued here 18. Seborrheic dermatitis on face- No treatment 19. Left eye chronic exudate-suspect dry eye especially in setting of diuretic use. No evidence at all of infection or red eye, iritis, etc. -continue eyedrops as needed Copy To Dalia Adame
== END 2017-12-14 22:51 | disposition expired | DRG 286 ==
LOC: EDBD 13:31 → C.EDC 13:34 → C.MS4W 18:26 → ENRESERV 18:49 → OBSVTOIN 11-30 20:23 → CANRESERV 12-10 10:36 → ENRESERV 12-10 10:36 → CANRESERV 12-10 10:38 → ENRESERV 12-10 10:51 → C.2T 12-10 11:19 → ENRESERV 12-11 11:58 → C.MSICU 12-11 12:20 → C.2T 12-13 18:06 → ENRESERV 12-14 19:52 → CANRESERV 12-14 19:52 → CANBEDREQ 12-14 21:09
PROVIDERS: ADMIT Family Medicine; ATTEND Family Medicine
PROC: 4A023N6 Measurement of Cardiac Sampling and Pressure, Right Heart, Percutaneous Approach (ICD-10-PCS; principal; 2017-12-10 08:51)
PROC: 02HV33Z Insertion of Infusion Device into Superior Vena Cava, Percutaneous Approach (ICD-10-PCS; 2017-12-11)
DX: I50.43 Acute on chronic combined systolic (congestive) and diastolic (congestive) heart failure (principal); J96.21 Acute and chronic respiratory failure with hypoxia; N17.0 Acute kidney failure with tubular necrosis; G93.41 Metabolic encephalopathy; L89.153 Pressure ulcer of sacral region, stage 3; L89.623 Pressure ulcer of left heel, stage 3; Z51.5 Encounter for palliative care; J96.12 Chronic respiratory failure with hypercapnia; I24.8 Other forms of acute ischemic heart disease; N18.4 Chronic kidney disease, stage 4 (severe); Z68.43 Body mass index [BMI] 50.0-59.9, adult; E66.2 Morbid (severe) obesity with alveolar hypoventilation; E87.1 Hypo-osmolality and hyponatremia; I50.813 Acute on chronic right heart failure; I27.29 Other secondary pulmonary hypertension; K75.81 Nonalcoholic steatohepatitis (NASH); G89.4 Chronic pain syndrome; R46.89 Other symptoms and signs involving appearance and behavior; R45.1 Restlessness and agitation; R82.71 Bacteriuria; L21.9 Seborrheic dermatitis, unspecified; B37.2 Candidiasis of skin and nail; H57.8 Other specified disorders of eye and adnexa; F39 Unspecified mood [affective] disorder; E87.5 Hyperkalemia; E83.39 Other disorders of phosphorus metabolism; M25.511 Pain in right shoulder; I87.8 Other specified disorders of veins; E11.22 Type 2 diabetes mellitus with diabetic chronic kidney disease; J44.9 Chronic obstructive pulmonary disease, unspecified; Z51.81 Encounter for therapeutic drug level monitoring; Z79.899 Other long term (current) drug therapy; Z79.4 Long term (current) use of insulin; Z99.81 Dependence on supplemental oxygen; Z66 Do not resuscitate; Z87.01 Personal history of pneumonia (recurrent); Z91.19 Patient's noncompliance with other medical treatment and regimen; Z86.14 Personal history of Methicillin resistant Staphylococcus aureus infection; Z95.828 Presence of other vascular implants and grafts; Z86.718 Personal history of other venous thrombosis and embolism; Z87.891 Personal history of nicotine dependence; Z88.1 Allergy status to other antibiotic agents; Z88.8 Allergy status to other drugs, medicaments and biological substances; Z88.0 Allergy status to penicillin; Z82.49 Family history of ischemic heart disease and other diseases of the circulatory system

== ENCOUNTER → 2017-11-29 | Outpatient (CLI) | payer OTHER ==
[2017-11-29 09:12] LABS: BLOOD UREA NITROGEN 60 mg/dl (7-18); CALCIUM 8.5 mg/dl (8.5-10.1); CARBON DIOXIDE 31 mmol/L (21-32); CREATININE 2.19 mg/dl (0.60-1.20); GLUCOSE 189 mg/dl (70-99); POTASSIUM 5.1 mmol/L (3.5-5.1); SODIUM 137 mmol/L (136-145)
[2017-11-29 09:30] LABS: HEMATOCRIT 32.6 % (37-47); HEMOGLOBIN 9.7 g/dL (12.0-16.0); MEAN CELL VOLUME 89.6 fL (80-100); MEAN CORPUSCULAR HEMOGLOBIN 26.6 pg (25-34); MEAN CORPUSCULAR HGB CONC 29.8 g/dl (32-36); MEAN PLATELET VOLUME 9.6 fL (7.4-10.4); PLATELET COUNT 249 K/uL (130-400); RED CELL DISTRIBUTION WIDTH CV 21.1 % (11.5-14.5); RED CELL DISTRIBUTION WIDTH SD 69.1 fL (36.4-46.3); WHITE BLOOD COUNT 7.03 K/uL (4.8-10.8)
[2017-11-29 09:52] LABS: BASO % 0.3 %; BASO ABS # 0.02 K/uL (0-0.2); EOS % 2.6 %; EOS ABS # 0.18 K/uL (0-0.5); IG# 0.02 K/uL (0.00-0.02); MONO % 8.5 %; NEUT % 78.3 %; NEUT ABS # 5.51 K/uL (1.4-6.5)
== END ==
LOC: C.LABUPNIT 08:51
PROVIDERS: ATTEND Nurse Practitioner Family
DX: J18.8 Other pneumonia, unspecified organism (principal); N18.3 Chronic kidney disease, stage 3 (moderate)